=== PATIENT | female | born 1965 | race Caucasian/White ===

== ENCOUNTER 2017-03-03 16:20 | Inpatient (IN) | payer MEDICAID, OTHER ==
[2017-03-03] MEDS ORDERED: Sodium Chloride 0.9% 1,000 ML IV ONE ×2 (17:05→19:29)
--- NOTE | 2017-03-03 17:22 | EDM.PDOC ---
ED HPI GENERAL MEDICAL PROBLEM - General Chief Complaint: Respiratory Problem Stated Complaint: SOB 80%, LOW BP Time Seen by Provider: 03/03/17 16:27 Source of Information: Reports: Patient, Family, RN Notes Reviewed History Limitations: Reports: No Limitations - History of Present Illness INITIAL COMMENTS - FREE TEXT/NARRATIVE: The patient reports general malaise, including decreased appetite, dark urine, and cough productive of green sputum. She denies having a recent fever. She denies shortness of breath at rest. No chest pain or palpitations. No nausea, vomiting, constipation, or diarrhea. The patient is not sure if she has had similar symptoms in the past. The patient's PCP is Liza Fernandez. The patient was seen by Shakira Strong today and instructed to come to the ED. Generalized Pain Score (Numeric/FACES): 3 - Related Data Allergies Allergy/AdvReac Type Severity Reaction Status Date / Time No Known Allergies Allergy Verified 03/03/17 16:33 Home Meds: Home Meds ALPRAZolam [Xanax] 0.5 mg PO TID PRN #20 tablet 02/25/14 [Rx] Albuterol Sulfate [Albuterol Sulfate HFA] 2 puff INH BID PRN 02/25/14 [History] Budesonide/Formoterol Fumarate [Symbicort 80-4.5 Mcg Inhaler] 10.2 gm IH BID [History] Albuterol/Ipratropium [DuoNeb 3.0-0.5 MG/3 ML] 3 ml INH Q4HR PRN 11/03/14 [ History] Hydrochlorothiazide/Lisinopril [Lisinopril-HCTZ 20-25 MG] 20 mg PO DAILY [History] Past Medical History Cardiovascular History: Reports: Hypertension Respiratory History: Reports: COPD Psychiatric History: Reports: Anxiety, Depression - Past Surgical History Female Surgical History: Reports: D&C (x 1), Hysterectomy Musculoskeletal Surgical History: Reports: Shoulder Replacement (right) Social & Family History - Family History Family Medical History: Noncontributory - Tobacco Use Smoking Status *Q: Light Tobacco Smoker Tobacco Use Within Last Twelve Months: Cigarettes Years of Tobacco use: 32 Packs/Tins Daily: 0.1 - Caffeine Use Caffeine Use: Reports: None - Alcohol Use Alcohol Use History: Yes Days Per Week of Alcohol Use: 0 Number of Drinks Per Day: 1 Total Drinks Per Week: 0 Alcohol Use Frequency: Socially - Recreational Drug Use Recreational Drug Use: Yes Drug Use in Last 12 Months: Yes Recreational Drug Type: Reports: Marijuana/Hashish Recreational Drug Use Frequency: Weekly - Living Situation & Occupation Living situation: Reports: Single, with Family (Son) Occupation: Unemployed ED ROS GENERAL - Review of Systems Review Of Systems: See Below Constitutional: Reports: Malaise, Decreased Appetite. Denies: Fever HEENT: Reports: No Symptoms Respiratory: Reports: Cough, Sputum (greenish). Denies: Shortness of Breath, Wheezing Cardiovascular: Reports: No Symptoms. Denies: Chest Pain, Palpitations Endocrine: Reports: No Symptoms GI/Abdominal: Denies: Abdominal Pain, Constipation, Diarrhea, Nausea, Vomiting : Reports: Other (Dark urine). Denies: Dysuria Musculoskeletal: Reports: No Symptoms Skin: Reports: No Symptoms Neurological: Reports: No Symptoms Psychiatric: Reports: No Symptoms Hematologic/Lymphatic: Reports: No Symptoms Immunologic: Reports: No Symptoms ED EXAM, GENERAL - Physical Exam Exam: See Below Exam Limited By: No Limitations General Appearance: Alert, WD/WN, No Apparent Distress, Other (Appears tired) Eye Exam: Bilateral Eye: Normal Inspection Ears: Normal External Exam, Hearing Grossly Normal Ear Exam: Bilateral Ear: Auricle Normal Nose: Normal Inspection, No Blood Throat/Mouth: Normal Inspection, Normal Lips, Normal Voice, No Airway Compromise Head: Atraumatic, Normocephalic Neck: Normal Inspection, Full Range of Motion Respiratory/Chest: No Respiratory Distress, No Accessory Muscle Use, Decreased Breath Sounds. No: Crackles, Rhonchi, Wheezing, Prolonged Expiration Cardiovascular: Normal Peripheral Pulses, Regular Rate, Rhythm, No Gallop, No JVD, No Murmur, No Rub Peripheral Pulses: 4+: Radial (L), Radial (R) GI/Abdominal: Normal Bowel Sounds, Soft, Non-Tender, No Organomegaly, No Distention, No Abnormal Bruit, No Mass (Female) Exam: Deferred Rectal (Female) Exam: Deferred Back Exam: Normal Inspection, Full Range of Motion, NT Extremities: Normal Inspection, Normal Range of Motion, No Pedal Edema, Normal Capillary Refill Neurological: Alert, Oriented, Normal Cognition, No Motor/Sensory Deficits Psychiatric: Normal Affect Skin Exam: Warm, Dry, Intact, Normal Color, No Rash Lymphatic: No Adenopathy ED CENTRAL LINE INSERTION - Central Line Insertion Central Line Indication: medication administration Site: subclavian (L) Prep: CDC/MBT guidelines, sterile drapes, chlorhexidine Lumen: triple Gauge: 7Fr Local anesthesia - Lidocaine (Xylocaine): 1% plain Local anesthetic volume: 2cc Ultrasound guided: No Guidewire and dilator removed intact: Yes Complications: No Secured with suture: Yes Post placement confirmation: CXR, all ports aspirated, all ports flushed CXR post-procedure: no pneumothorax, no hemothorax Dressing applied: by provider EKG INTERPRETATION EKG Date: 03/03/17 Time: 17:22 Rhythm: NSR Rate (beats/min): 96 [place]: RAD-right axis deviation P-wave: present QRS: normal ST-T: normal QT: normal Comparison: change from previous EKG (No RAD 09/29/2016) Course - Vital Signs Last Recorded V/S: Last Vital Signs Temp 36.6 C 03/03/17 16:27 Pulse 103 H 03/03/17 16:27 Resp 26 H 03/03/17 16:27 BP 77/58 L 03/03/17 16:27 Pulse Ox 90 L 03/03/17 16:37 - Orders/Labs/Meds Orders: Active Orders 24 hr Category Date Time Status EKG Documentation Completion [RC] STAT Care 03/03/17 17:07 Active Chest 1V Frontal [CR] Stat Exams 03/03/17 17:06 Taken Chest 1V Frontal [CR] Stat Exams 03/03/17 19:08 Taken CULTURE BLOOD [BC] Stat Lab 03/03/17 17:35 Received CULTURE BLOOD [BC] Stat Lab 03/03/17 18:55 Received D-DIMER QUANTITATIVE [COAG] Stat Lab 03/03/17 18:00 Received UA W/MICROSCOPIC [URIN] Stat Lab 03/03/17 17:06 Uncollected Norepinephrine [Levophed] 4 mg Med 03/03/17 17:45 Active Dextrose 5% in Water 246 ml IV TITRATE Sodium Chloride 0.9% [Normal Saline] 1,000 ml Med 03/03/17 19:30 Active IV ASDIRECTED Medication Orders Norepinephrine Bitartrate 4 mg (/ Dextrose/Water) 250 mls @ 37.5 mls/hr IV TITRATE SHAUN; 10 MCG/MIN PRN Reason: Protocol Last Titration: 03/03/17 18:13 Dose: 4 mcg/min, 15 mls/hr Titration: 03/03/17 18:11 Dose: 5 mcg/min, 18.75 mls/hr Titration: 03/03/17 18:03 Dose: 4 mcg/min, 15 mls/hr Admin: 03/03/17 17:53 Dose: 10 mcg/min, 37.5 mls/hr Sodium Chloride (Normal Saline) 1,000 mls @ 100 mls/hr IV ASDIRECTED SHAUN Labs: Laboratory Tests 03/03/17 03/03/17 03/03/17 Range/Units 17:07 17:35 18:00 WBC 13.65 H (3.98-10.04) K/mm3 RBC 4.90 (3.98-5.22) M/mm3 Hgb 14.1 (11.2-15.7) gm/L Hct 41.2 (34.1-44.9) % MCV 84.1 (79.4-94.8) fl MCH 28.8 (25.6-32.2) pg MCHC 34.2 (32.2-35.5) g/dl RDW Std Deviation 41.7 (36.4-46.3) fL Plt Count 251 (182-369) K/mm3 MPV 10.4 (9.4-12.3) fl Neutrophils % (Manual) 73 H (40-60) % Band Neutrophils % 0 (0-10) % Lymphocytes % (Manual) 15 L (20-40) % Atypical Lymphs % 1 % Monocytes % (Manual) 9 (2-10) % Eosinophils % (Manual) 2 (0.7-5.8) % Basophils % (Manual) 0 L (0.1-1.2) Platelet Estimate Adequate Plt Morphology Comment Normal Polychromasia 1+ slight Poikilocytosis 1+ slight Anisocytosis 1+ slight Microcytosis 1+ slight Macrocytosis 1+ slight Tear Drop Cells 1+ slight Ovalocytes 1+ slight RBC Morph Comment Abnormal Puncture Site Rt radial ABG pH 7.28 L (7.35-7.45) ABG pCO2 55.3 H (35.0-45.0) mmHg ABG pO2 63.0 L (80.0-100.0) mmHg ABG HCO3 25.4 (22.0-26.0) meq/L ABG O2 Saturation 91.4 L (96.0-97.0) % ABG Base Excess -1.9 (-2-2.0) Johnny Test Positive A-a Gradient 47 mmHg O2 Delivery Device Nasal cannula Oxygen Flow Rate 2.0 FiO2 28.00 (21.00-100.00) % Sodium (136-145) mEq/L Potassium (3.5-5.1) mEq/L Chloride (98-107) mEq/L Carbon Dioxide (21-32) mEq/L Anion Gap (5-15) BUN (7-18) mg/dL Creatinine (0.55-1.02) mg/dL Est Cr Clr Drug Dosing mL/min Estimated GFR (MDRD) (>60) mL/min BUN/Creatinine Ratio (14-18) Glucose (74-106) mg/dL Lactic Acid 1.0 (0.4-2.0) mmol/L Calcium (8.5-10.1) mg/dL Total Bilirubin (0.2-1.0) mg/dL AST (15-37) U/L ALT (14-59) U/L Alkaline Phosphatase (46-116) U/L Troponin I (0.00-0.056) ng/mL B-Natriuretic Peptide (0-100) pg/mL Total Protein (6.4-8.2) g/dl Albumin (3.4-5.0) g/dl Globulin gm/dL Albumin/Globulin Ratio (1-2) 03/03/17 03/03/17 Range/Units 18:00 18:00 WBC (3.98-10.04) K/mm3 RBC (3.98-5.22) M/mm3 Hgb (11.2-15.7) gm/L Hct (34.1-44.9) % MCV (79.4-94.8) fl MCH (25.6-32.2) pg MCHC (32.2-35.5) g/dl RDW Std Deviation (36.4-46.3) fL Plt Count (182-369) K/mm3 MPV (9.4-12.3) fl Neutrophils % (Manual) (40-60) % Band Neutrophils % (0-10) % Lymphocytes % (Manual) (20-40) % Atypical Lymphs % % Monocytes % (Manual) (2-10) % Eosinophils % (Manual) (0.7-5.8) % Basophils % (Manual) (0.1-1.2) Platelet Estimate Plt Morphology Comment Polychromasia Poikilocytosis Anisocytosis Microcytosis Macrocytosis Tear Drop Cells Ovalocytes RBC Morph Comment Puncture Site ABG pH (7.35-7.45) ABG pCO2 (35.0-45.0) mmHg ABG pO2 (80.0-100.0) mmHg ABG HCO3 (22.0-26.0) meq/L ABG O2 Saturation (96.0-97.0) % ABG Base Excess (-2-2.0) Johnny Test A-a Gradient mmHg O2 Delivery Device Oxygen Flow Rate FiO2 (21.00-100.00) % Sodium 137 (136-145) mEq/L Potassium 4.6 (3.5-5.1) mEq/L Chloride 100 (98-107) mEq/L Carbon Dioxide 29 (21-32) mEq/L Anion Gap 12.6 (5-15) BUN 51 H (7-18) mg/dL Creatinine 2.3 H (0.55-1.02) mg/dL Est Cr Clr Drug Dosing 18.64 mL/min Estimated GFR (MDRD) 22 (>60) mL/min BUN/Creatinine Ratio 22.2 H (14-18) Glucose 126 H (74-106) mg/dL Lactic Acid (0.4-2.0) mmol/L Calcium 8.9 (8.5-10.1) mg/dL Total Bilirubin 0.2 (0.2-1.0) mg/dL AST 10 L (15-37) U/L ALT 15 (14-59) U/L Alkaline Phosphatase 94 (46-116) U/L Troponin I 0.023 (0.00-0.056) ng/mL B-Natriuretic Peptide 794 H (0-100) pg/mL Total Protein 6.5 (6.4-8.2) g/dl Albumin 2.6 L (3.4-5.0) g/dl Globulin 3.9 gm/dL Albumin/Globulin Ratio 0.7 L (1-2) Meds: Medications Generic Name Dose Route Start Last Admin Trade Name Freq PRN Reason Stop Dose Admin Norepinephrine Bitartrate 4 mg 250 mls @ 37.5 mls/hr 03/03/17 17:45 03/03/17 18:13 / Dextrose/Water IV 4 mcg/min TITRATE SHAUN 15 mls/hr Protocol Titration 10 MCG/MIN Sodium Chloride 1,000 mls @ 100 mls/hr 03/03/17 19:30 Normal Saline IV ASDIRECTED SHAUN Discontinued Medications Generic Name Dose Route Start Last Admin Trade Name Freq PRN Reason Stop Dose Admin Sodium Chloride 1,000 mls @ 999 mls/hr 03/03/17 17:05 03/03/17 17:13 Normal Saline IV 03/03/17 18:05 999 mls/hr ONETIME ONE Administration - Radiology Interpretation Free Text/Narrative:: Two-view chest radiograph reviewed. Cardiac silhouette is within normal limits. Mild pulmonary vascular congestion vs. bronchitis. No pleural effusions. No focal infiltrate. No pneumothorax. Hyperinflation and bilateral diaphragmatic flattening, consistent with COPD. Right shoulder prosthesis noted. Formal read per the Radiologist pending. Post-left subclavian central line placement portable chest radiograph appears to demonstrate the tip of the central line in the superior vena cava. No pneumothorax or hemothorax. - Re-Assessments/Exams Free Text/Narrative Re-Assessment/Exam: 03/03/17 17:34 The patient has been hypotensive, with systolic BP in the 70s. I ordered a normal saline bolus, and while she has not received the full liter yet, her blood pressure has not improved. I have now ordered Levophed to start at 10 mcg /min. 03/03/17 17:38 The patient's chest radiograph does not indicate pneumonia. Her ABG indicates an acute respiratory acidosis, although on examination, while she has diminished breath sounds, she does not have prolonged exhalation or wheezing, suggestive of a COPD exacerbation. No other labs are available at this time. 03/03/17 18:19 We were able to decrease the patient's Levophed drip to 4 mcg/min, however, I believe she is going to continue to require Levophed for some time, therefore I talked to the patient about a central line. She is agreeable. 03/03/17 19:12 A left subclavian triple-lumen central line was placed without difficulty. Post -procedure portable chest radiograph has been ordered. Notified by laboratory that the blood that was initially obtained for a D-dimer is unusable. When I placed the central line, I blanca 20 mL of venous blood with lab present. 03/03/17 19:[address] Mayo at 19:18. He accepts the patient to the ICU. He is aware that the D-dimer and urinalysis are pending. The cause of the patient's hypotension is not yet evident. Her BUN/Cr are elevated at 51.23, new since 09/29/2016. Her report of dark urine and her hypotension suggest intravascular depletion, yet her chest radiograph shows mild pulmonary vascular congestion, and her BNP is mildly elevated at 794. I am concerned about right heart failure, which could explain her hypotension and new right heart strain on her ECG, yet her troponin is within normal limits. The patient would benefit from an echocardiogram. Departure - Departure Time of Disposition: 19:27 Disposition: Admitted As Inpatient 65 Condition: serious Clinical Impression: Hypotension, Acute renal failure, Acute respiratory acidosis, Elevated brain natriuretic peptide (BNP) level - Discharge Information - My Orders Last 24 Hours: My Active Orders 03/03/17 17:06 Chest 1V Frontal [CR] Stat UA W/MICROSCOPIC [URIN] Stat 03/03/17 17:07 EKG Documentation Completion [RC] STAT 03/03/17 17:35 CULTURE BLOOD [BC] Stat 03/03/17 17:45 Norepinephrine [Levophed] 4 mg Dextrose 5% in Water 246 ml IV TITRATE 03/03/17 18:00 D-DIMER QUANTITATIVE [COAG] Stat 03/03/17 18:55 CULTURE BLOOD [BC] Stat 03/03/17 19:08 Chest 1V Frontal [CR] Stat 03/03/17 19:30 Sodium Chloride 0.9% [Normal Saline] 1,000 ml IV ASDIRECTED - Assessment/Plan Last 24 Hours: My Active Orders 03/03/17 17:06 Chest 1V Frontal [CR] Stat UA W/MICROSCOPIC [URIN] Stat 03/03/17 17:07 EKG Documentation Completion [RC] STAT 03/03/17 17:35 CULTURE BLOOD [BC] Stat 03/03/17 17:45 Norepinephrine [Levophed] 4 mg Dextrose 5% in Water 246 ml IV TITRATE 03/03/17 18:00 D-DIMER QUANTITATIVE [COAG] Stat 03/03/17 18:55 CULTURE BLOOD [BC] Stat 03/03/17 19:08 Chest 1V Frontal [CR] Stat 03/03/17 19:30 Sodium Chloride 0.9% [Normal Saline] 1,000 ml IV ASDIRECTED
[2017-03-03] MEDS: Norepinephrine 4 MG in Dextrose 5% in Water 246 ML IV SCH ×2 (17:53)
[2017-03-03] MEDS ORDERED: Sodium Chloride 0.9% 1,000 ML ONE (19:29)
[2017-03-03] MEDS ORDERED: Sodium Chloride 0.9% 1,000 ML IV SCH (19:30)
--- NOTE | 2017-03-03 20:17 | PCM.HP ---
H&P History of Present Illness - General Date of Service: 03/03/17 Admit Problem/Dx: Profound Hypotension and SIRS Source of Information: Patient, Family, Old Records, Provider, RN Notes Reviewed History Limitations: Reports: Altered Mental Status, Respiratory Distress, Other (lethargic) - History of Present Illness Initial Comments - Free Text/Narative: This is a 51 yo white female with past medical hx/o HTN, COPD, Anxiety and Depression who comes in with comes from the clinic with complaints of multiple issues: generalized weakness, malaise, decreased appetite, dark urine, subjective fever, chills and productive cough with greenish sputum that started 4 days ago. She denies recent sick contact. Patient lives with her son. Patient used to smoke heavily but has now cut down. She drinks socially. She admits to illicit drug use in the past. Her initial ED work up shows a CBC remarkable for WBC 13.65, Neutrophils or 73% and ESR 25. Her chemistry is significant for BUN 51, Cr 2.3, BS 126, AST 10, BNP 794, and Albumin 2.6. D-dimer is 1.24. ABG shows pH 7.28, pCO2 55.3, pO2 63 , HCO3 25 and O2 Sat 91.4%. CXR shows hyper-inflated lungs. Patient received treatment in ED before she was sent to the unit for further management. She is currently on pressor drip. She is being admitted for Profound Hypotension Suspecting Sepsis. Additional diagnostic data are still pending. Generalized Pain Score (Numeric/FACES): 5 - Related Data Allergies/Adverse Reactions: Allergies Allergy/AdvReac Type Severity Reaction Status Date / Time No Known Allergies Allergy Verified 03/03/17 16:33 Home Medications: Home Meds ALPRAZolam [Xanax] 0.5 mg PO TID PRN #20 tablet 02/25/14 [Rx] Albuterol Sulfate [Albuterol Sulfate HFA] 2 puff INH BID PRN 02/25/14 [History] Budesonide/Formoterol Fumarate [Symbicort 80-4.5 Mcg Inhaler] 10.2 gm IH BID [History] Albuterol/Ipratropium [DuoNeb 3.0-0.5 MG/3 ML] 3 ml INH Q4HR PRN 11/03/14 [ History] Hydrochlorothiazide/Lisinopril [Lisinopril-HCTZ 20-25 MG] 20 mg PO DAILY [History] Past Medical History Cardiovascular History: Reports: Hypertension Respiratory History: Reports: COPD Other Respiratory History: end stage COPD Gastrointestinal History: Reports: Colon Polyp Genitourinary History: Reports: Renal Calculus, Urinary Incontinence Musculoskeletal History: Reports: Arthritis Neurological History: Reports: Migraines Psychiatric History: Reports: Anxiety, Depression - Past Surgical History Female Surgical History: Reports: D&C, Hysterectomy Musculoskeletal Surgical History: Reports: Shoulder Replacement Social & Family History - Family History Family Medical History: Noncontributory - Tobacco Use Smoking Status *Q: Former Smoker Years of Tobacco use: 32 Packs/Tins Daily: 0.1 Used Tobacco, but Quit: Yes Month Tobacco Last Used: June 2016 Second Hand Smoke Exposure: No - Caffeine Use Caffeine Use: Reports: Coffee, Soda - Alcohol Use Days Per Week of Alcohol Use: 0 Number of Drinks Per Day: 1 Total Drinks Per Week: 0 - Recreational Drug Use Recreational Drug Use: No Drug Use in Last 12 Months: Yes Recreational Drug Type: Reports: Marijuana/Hashish Recreational Drug Use Frequency: Weekly - Living Situation & Occupation Living situation: Reports: Single, with Family (Son) Occupation: Unemployed H&P Review of Systems - Review of Systems: Review Of Systems: See Below General: Reports: Fever, Chills, Malaise, Weakness, Fatigue, Decreased Appetite HEENT: Reports: No Symptoms Pulmonary: Reports: Shortness of Breath Cardiovascular: Denies: Chest Pain, Palpitations, Dyspnea on Exertion, Lightheadedness, Syncope Gastrointestinal: Denies: Abdominal Pain, Nausea, Vomiting Genitourinary: Reports: No Symptoms Musculoskeletal: Reports: No Symptoms Skin: Denies: Jaundice, Pruritis, Rash, Erythema Psychiatric: Reports: Anxiety. Denies: Depression, Hallucinations Neurological: Reports: Difficulty Walking, Weakness. Denies: Confusion Hematologic/Lymphatic: Reports: No Symptoms Immunologic: Reports: No Symptoms Exam - Exam Exam: See Below - Vital Signs Vital Signs: Last Vital Signs Temp 36.6 C 03/03/17 16:27 Pulse 92 03/03/17 19:51 Resp 26 H 03/03/17 19:51 BP 72/55 L 03/03/17 19:51 Pulse Ox 92 L 03/03/17 19:51 Weight: 42.864 kg - Exam Quality Assessment: Supplemental Oxygen General: Moderate Distress, Lethargic, Other (cachectic) HEENT: Conjunctiva Clear, Hearing Intact, Mucosa Moist & Manlius, Nares Patent, Normal Nasal Septum, Posterior Pharynx Clear, Pupils Equal, Pupils Reactive. No : EOMI Neck: Supple, Trachea Midline, +2 Carotid Pulse wo Bruit, Full Range of Motion Lungs: Normal Respiratory Effort, Decreased Breath Sounds Cardiovascular: Tachycardia Abdomen: Normal Bowel Sounds, Soft. No: Pelvis Stable, Organomegaly, Tenderness (Female) Exam: Deferred Rectal (Female) Exam: Deferred Back Exam: Normal Inspection, Decreased Range of Motion Extremities: Normal Inspection Peripheral Pulses: 2+: Posterior Tibial (L), Posterior Tibial (R), Dorsalis Pedis (L), Dorsalis Pedis (R) Skin: Warm, Dry, Intact Neuro Extensive - Mental Status: Normal Cognition, Memory Intact, Slow Response to Commands Neuro Extensive - Motor, Sensory, Reflexes: CN II-XII Intact (limited exam due to lethargy), Abnormal Gait - Patient Data Result Diagrams: 03/03/17 18:00 03/03/17 22:00 EKG INTERPRETATION EKG Date: 03/03/17 Time: 17:22 Rhythm: NSR Rate (beats/min): 96 [place]: LAD-left axis deviation P-wave: present QRS: normal ST-T: normal QT: normal Comparison: change from previous EKG *Q Meaningful Use (ADM) - VTE *Q VTE Criteria *Q: - Stroke *Q Stroke Criteria *Q: - AMI *Q AMI Criteria *Q: Problem List Initiated/Reviewed/Updated: Yes Orders Last 24hrs: Active Orders 24 hr Category Date Time Status Sodium Chloride 0.9% [Normal Saline] 500 ml Med 03/03/17 20:30 Active IV .BOLUS Medication Orders Norepinephrine Bitartrate 4 mg (/ Dextrose/Water) 250 mls @ 37.5 mls/hr IV TITRATE SHAUN; 10 MCG/MIN PRN Reason: Protocol Last Titration: 03/03/17 18:13 Dose: 4 mcg/min, 15 mls/hr Titration: 03/03/17 18:11 Dose: 5 mcg/min, 18.75 mls/hr Titration: 03/03/17 18:03 Dose: 4 mcg/min, 15 mls/hr Admin: 03/03/17 17:53 Dose: 10 mcg/min, 37.5 mls/hr Sodium Chloride (Normal Saline) 1,000 mls @ 100 mls/hr IV ASDIRECTED SHAUN Sodium Chloride (Normal Saline) 1,000 mls @ 999 mls/hr IV ONETIME ONE Stop: 03/03/17 20:29 Last Admin: 03/03/17 19:32 Dose: 999 mls/hr Sodium Chloride (Normal Saline) 500 mls @ 999 mls/hr IV .BOLUS SHAUN Assessment/Plan Comment:: Assessment/Plan: Acute: Probable Sepsis with Profound Hypotension - No clear etiology of Hypotesion and or source of infection at this time - ED BP 87/60 mmHg at the time of my examination - Failed fluid challenge in ED, she now on Levophed drip - Will give additional 3 L NS, she had no hx/o HF, she is young should be able to handle it - Unclear why she is profoundly hypotensive - LA is 1, will repeat in 3 hrs - UA and UDS are pending - CXR shows hyper-inflated lungs COPD Exacerbation - It appears she had advanced COPD based on CXR; no obvious infiltrate - Both hypoxemic and Hypercapneic on ABG - O2 sat 85% on 2 L NC (had to bump to 4L, O2 sat improved to 89-90%) - IV Solumedrol, Bronchodilators, Decongestant/Expectorant, FV/IS and RT care - Serial CXR Leukocytosis - WBC 13.65 - No CRP done Acute Kidney Injury - Likely 2/2 Intravascular Volume Depletion - She is clinically dehydrated - BUN 51 and CR 2.2, no baseline level - Renal U/S - All meds for pharmacy to renally dose Elevated BNP Level - BNP 794 - No hx/o HF - Level could be affected by JENNIE - Will monitor Plan: Admit to ICU Hold some home meds Routine AM Labs IV Levaquin and Zosyn for presumptive infection for pharmacy to dose She is High Sepsis Risk PT/OT/RT eval SW/CM for d/c planning Code status: 1 Prognosis serious to critical
[2017-03-03] MEDS ORDERED: Morphine 2 MG/ML Syringe IVPUSH PRN (20:18)
[2017-03-03] MEDS ORDERED: Acetaminophen 325 MG Tab PO PRN (20:18)
[2017-03-03] MEDS ORDERED: Temazepam 15 MG Cap PO PRN (20:19)
[2017-03-03] MEDS ORDERED: Bisacodyl 5 MG Tab PO PRN (20:19)
[2017-03-03] MEDS ORDERED: Promethazine 12.5 MG in Sodium Chloride 0.9% 50 ML IV PRN (20:19)
[2017-03-03] MEDS ORDERED: Polyethylene Glycol 3350 Powder 17 GM Packet PO PRN (20:19)
[2017-03-03] MEDS ORDERED: Magnesium Hydroxide 400 MG/5 ML Susp 30 ML Cup PO PRN (20:19)
[2017-03-03] MEDS ORDERED: Ondansetron 4 MG/2 ML SDV IV PRN (20:19)
[2017-03-03] MEDS ORDERED: LORazepam 2 MG/ML MDV IV PRN (20:19)
[2017-03-03] MEDS ORDERED: Docusate Sodium 100 MG Cap PO PRN (20:19)
[2017-03-03] MEDS ORDERED: Metoprolol Tartrate 5 MG/5 ML SDV IVPUSH PRN (20:26)
[2017-03-03] MEDS ORDERED: hydrALAZINE 20 MG/ML SDV IVPUSH PRN (20:26)
[2017-03-03] MEDS ORDERED: Sodium Chloride 0.9% 500 ML IV SCH (20:30)
[2017-03-03] MEDS ORDERED: Piperacillin/Tazobactam 4.5 GM in Sodium Chloride 0.9% 100 ML IV ONE (20:45)
[2017-03-03] MEDS: methylPREDNISolone Sodium Succinate 125 MG/2 ML SDV IVPUSH SCH (20:54)
[2017-03-03] MEDS ORDERED: Magnesium Sulfate/Water 2 GM in Premix Bag 1 BAG IV ONE (20:55)
[2017-03-03] MEDS ORDERED: Mometasone Furoate HFA 100mcg/Puff 13 GM Inhaler INH SCH (21:00)
[2017-03-03] MEDS ORDERED: Levofloxacin/Dextrose 5%-Water 750 MG in Premix Bag 1 BAG IV SCH (21:00)
[2017-03-03] MEDS: guaiFENesin/Dextromethorphan 100-10 MG/5 ML Soln 5 ML Cup PO SCH (21:06)
[2017-03-03] MEDS: ALPRAZolam 0.5 MG Tab PO PRN (21:07)
[2017-03-03] MEDS: Albuterol/Ipratropium 3.0-0.5 MG/3 ML Neb Soln NEB PRN (21:28)
[2017-03-03] MEDS ORDERED: guaiFENesin 600 MG Tab.ER PO ONE (21:28)
[2017-03-03] MEDS ORDERED: Albuterol 0.083% 2.5 MG/3 ML Neb Soln NEB PRN (21:36)
[2017-03-03] MEDS ORDERED: Budesonide/Formoterol 80-4.5 MCG/Puff 6.9 GM Inhaler INH ONE (22:00)
[2017-03-04] MEDS: guaiFENesin/Dextromethorphan 100-10 MG/5 ML Soln 5 ML Cup PO SCH ×6 (00:57→20:05)
[2017-03-04] MEDS: Acetaminophen/HYDROcodone 325-5 MG Tab PO PRN ×4 (00:57→16:10)
[2017-03-04] MEDS ORDERED: Piperacillin/Tazobactam 4.5 GM in Sodium Chloride 0.9% 100 ML IV SCH (04:00)
[2017-03-04] MEDS: methylPREDNISolone Sodium Succinate 125 MG/2 ML SDV IVPUSH SCH ×3 (04:14→20:15)
[2017-03-04] MEDS: Budesonide/Formoterol 80-4.5 MCG/Puff 6.9 GM Inhaler INH SCH ×2 (06:02→21:19)
--- NOTE | 2017-03-04 06:27 | CR ---
Chest: Portable view of the chest was obtained. Comparison: Previous chest x-ray performed on the same day at time 5:17 PM. Left subclavian line has been placed. Tip lies within the superior vena cava. Lungs are clear but hyperinflated. Right shoulder prosthesis is again noted. Heart size and mediastinum are normal. Impression: 1. Emphysematous change. 2. Left subclavian line with tip lying within the superior vena cava. No pneumothorax is seen. Diagnostic code #3
--- NOTE | 2017-03-04 06:45 | CR ---
Chest: Portable view of the chest was obtained. Comparison: Previous chest x-ray of 09/29/16. Heart size and mediastinum are normal. Minimal density noted within the right upper lung most likely due to scarring or slight atelectasis. Lungs otherwise are clear. Lungs are hyperinflated compatible with emphysematous change. Reverse right shoulder prosthesis incidentally noted. Bony structures are osteopenic. Impression: 1. Emphysematous change. Other incidental findings. Nothing acute is appreciated. Diagnostic code #2
--- NOTE | 2017-03-04 08:06 | PCM.PN ---
- General Info Date of Service: 03/04/17 Admission Dx/Problem (Free Text): Profound Hypotension and SIRS Subjective Update: Follow Up Functional Status: Reports: pain controlled, tolerating diet, ambulating, urinating. Denies: new symptoms - Review of Systems General: Denies: Fever, Weakness, Fatigue, Malaise, Chills HEENT: Reports: no symptoms Pulmonary: Reports: shortness of breath, cough Cardiovascular: Denies: Chest Pain, Palpitations, Dyspnea on Exertion Gastrointestinal: Denies: Abdominal pain, Nausea, Vomiting Genitourinary: Reports: no symptoms Musculoskeletal: Reports: no symptoms Skin: Denies: cyanosis, pallor, pruritis, rash Neurological: Denies: Confusion, Dizziness, Difficulty Walking, Weakness, Gait Disturbance Psychiatric: Denies: depression, anxiety, agitation, hallucinations Systems Review Comment:: No overnight issues. She fells better and breathing good. She slept really well. However she is still on pressor drip. She is currently on 2L NC with an O2 sat of 93%. She more alert and awake. - Patient Data Vitals - most recent: Last Vital Signs Temp 36.4 C 03/04/17 07:30 Pulse 80 03/04/17 07:30 Resp 19 03/04/17 07:30 BP 99/74 03/04/17 07:30 Pulse Ox 92 L 03/04/17 07:30 Weight - most recent: 42.864 kg I&O - last 24 hours: Intake & Output 03/03/17 03/04/17 03/04/17 22:59 06:59 14:59 Intake Total 480 997 Output Total 500 1000 Balance -20 -3 Lab Results last 24 hrs: Laboratory Results - last 24 hr 03/03/17 03/03/17 03/03/17 Range/Units 20:40 20:40 20:40 WBC (3.98-10.04) K/mm3 RBC (3.98-5.22) M/mm3 Hgb (11.2-15.7) gm/L Hct (34.1-44.9) % MCV (79.4-94.8) fl MCH (25.6-32.2) pg MCHC (32.2-35.5) g/dl RDW Std Deviation (36.4-46.3) fL Plt Count (182-369) K/mm3 MPV (9.4-12.3) fl Neut % (Auto) (34.0-71.1) % Lymph % (Auto) (19.3-51.7) % Crosby % (Auto) (4.7-12.5) % Eos % (Auto) (0.7-5.8) Baso % (Auto) (0.1-1.2) % Neut # (Auto) (1.56-6.13) K/mm3 Lymph # (Auto) (1.18-3.74) K/mm3 Crosby # (Auto) (0.24-0.36) K/mm3 Eos # (Auto) (0.04-0.36) K/mm3 Baso # (Auto) (0.01-0.08) K/mm3 Manual Slide Review ESR 25 H (0-20) mm/hr Sodium (136-145) mEq/L Potassium (3.5-5.1) mEq/L Chloride (98-107) mEq/L Carbon Dioxide (21-32) mEq/L Anion Gap (5-15) BUN (7-18) mg/dL Creatinine (0.55-1.02) mg/dL Est Cr Clr Drug Dosing mL/min Estimated GFR (MDRD) (>60) mL/min BUN/Creatinine Ratio (14-18) Glucose (74-106) mg/dL Lactic Acid (0.4-2.0) mmol/L Calcium (8.5-10.1) mg/dL Magnesium (1.8-2.4) mg/dl C-Reactive Protein 8.9 H* (<1.0) mg/dL Urine Color (Yellow) Urine Appearance (Clear) Urine pH (5.0-8.0) Ur Specific Industry (1.005-1.030) Urine Protein (Negative) Urine Glucose (UA) (Negative) Urine Ketones (Negative) Urine Occult Blood (Negative) Urine Nitrite (Negative) Urine Bilirubin (Negative) Urine Urobilinogen (0.2-1.0) Ur Leukocyte Esterase (Negative) Urine RBC (0-5) /hpf Urine WBC (0-5) /hpf Ur Epithelial Cells (0-5) /hpf Urine Bacteria (FEW) /hpf Urine Mucus (FEW) /hpf Urine Opiates Screen Negative (NEGATIVE) Ur Buprenorphine Scrn Negative (NEGATIVE) Ur Oxycodone Screen Negative (NEGATIVE) Urine Methadone Screen Negative (NEGATIVE) Ur Propoxyphene Screen Negative (NEGATIVE) Ur Barbiturates Screen Negative (NEGATIVE) Ur Tricyclics Screen Negative (NEGATIVE) Ur Phencyclidine Scrn Negative (NEGATIVE) Ur Amphetamine Screen Negative (NEGATIVE) U Methamphetamines Scrn Negative (NEGATIVE) U Benzodiazepines Scrn Presumptive positive H (NEGATIVE) U Cocaine Metab Screen Negative (NEGATIVE) U Marijuana (THC) Screen Negative (NEGATIVE) 03/03/17 03/03/17 03/03/17 Range/Units 20:40 22:00 22:00 WBC (3.98-10.04) K/mm3 RBC (3.98-5.22) M/mm3 Hgb (11.2-15.7) gm/L Hct (34.1-44.9) % MCV (79.4-94.8) fl MCH (25.6-32.2) pg MCHC (32.2-35.5) g/dl RDW Std Deviation (36.4-46.3) fL Plt Count (182-369) K/mm3 MPV (9.4-12.3) fl Neut % (Auto) (34.0-71.1) % Lymph % (Auto) (19.3-51.7) % Crosby % (Auto) (4.7-12.5) % Eos % (Auto) (0.7-5.8) Baso % (Auto) (0.1-1.2) % Neut # (Auto) (1.56-6.13) K/mm3 Lymph # (Auto) (1.18-3.74) K/mm3 Crosby # (Auto) (0.24-0.36) K/mm3 Eos # (Auto) (0.04-0.36) K/mm3 Baso # (Auto) (0.01-0.08) K/mm3 Manual Slide Review ESR (0-20) mm/hr Sodium 137 (136-145) mEq/L Potassium 4.9 (3.5-5.1) mEq/L Chloride 104 (98-107) mEq/L Carbon Dioxide 25 (21-32) mEq/L Anion Gap 12.9 (5-15) BUN 44 H (7-18) mg/dL Creatinine 1.7 H (0.55-1.02) mg/dL Est Cr Clr Drug Dosing 26.19 mL/min Estimated GFR (MDRD) 32 (>60) mL/min BUN/Creatinine Ratio 25.9 H (14-18) Glucose 151 H (74-106) mg/dL Lactic Acid 0.8 (0.4-2.0) mmol/L Calcium 7.9 L (8.5-10.1) mg/dL Magnesium (1.8-2.4) mg/dl C-Reactive Protein (<1.0) mg/dL Urine Color Yellow (Yellow) Urine Appearance Cloudy H (Clear) Urine pH 6.0 (5.0-8.0) Ur Specific Industry 1.015 (1.005-1.030) Urine Protein 1+ H (Negative) Urine Glucose (UA) Negative (Negative) Urine Ketones Negative (Negative) Urine Occult Blood 1+ H (Negative) Urine Nitrite Positive H (Negative) Urine Bilirubin Negative (Negative) Urine Urobilinogen 0.2 (0.2-1.0) Ur Leukocyte Esterase 1+ H (Negative) Urine RBC 0-5 (0-5) /hpf Urine WBC >100 H (0-5) /hpf Ur Epithelial Cells 5-10 H (0-5) /hpf Urine Bacteria Many H (FEW) /hpf Urine Mucus Few (FEW) /hpf Urine Opiates Screen (NEGATIVE) Ur Buprenorphine Scrn (NEGATIVE) Ur Oxycodone Screen (NEGATIVE) Urine Methadone Screen (NEGATIVE) Ur Propoxyphene Screen (NEGATIVE) Ur Barbiturates Screen (NEGATIVE) Ur Tricyclics Screen (NEGATIVE) Ur Phencyclidine Scrn (NEGATIVE) Ur Amphetamine Screen (NEGATIVE) U Methamphetamines Scrn (NEGATIVE) U Benzodiazepines Scrn (NEGATIVE) U Cocaine Metab Screen (NEGATIVE) U Marijuana (THC) Screen (NEGATIVE) 03/04/17 03/04/17 Range/Units 04:48 04:48 WBC 8.21 (3.98-10.04) K/mm3 RBC 4.72 (3.98-5.22) M/mm3 Hgb 13.7 (11.2-15.7) gm/L Hct 39.8 (34.1-44.9) % MCV 84.3 (79.4-94.8) fl MCH 29.0 (25.6-32.2) pg MCHC 34.4 (32.2-35.5) g/dl RDW Std Deviation 42.2 (36.4-46.3) fL Plt Count 322 (182-369) K/mm3 MPV 10.6 (9.4-12.3) fl Neut % (Auto) 95.7 H (34.0-71.1) % Lymph % (Auto) 3.7 L (19.3-51.7) % Crosby % (Auto) 0.4 L (4.7-12.5) % Eos % (Auto) 0 L (0.7-5.8) Baso % (Auto) 0.0 L (0.1-1.2) % Neut # (Auto) 7.86 H (1.56-6.13) K/mm3 Lymph # (Auto) 0.30 L (1.18-3.74) K/mm3 Crosby # (Auto) 0.03 L (0.24-0.36) K/mm3 Eos # (Auto) 0.00 L (0.04-0.36) K/mm3 Baso # (Auto) 0.00 L (0.01-0.08) K/mm3 Manual Slide Review Abnormal smear ESR (0-20) mm/hr Sodium 134 L (136-145) mEq/L Potassium 4.9 (3.5-5.1) mEq/L Chloride 103 (98-107) mEq/L Carbon Dioxide 22 (21-32) mEq/L Anion Gap 13.9 (5-15) BUN 41 H (7-18) mg/dL Creatinine 1.4 H (0.55-1.02) mg/dL Est Cr Clr Drug Dosing 31.81 mL/min Estimated GFR (MDRD) 39 (>60) mL/min BUN/Creatinine Ratio 29.3 H (14-18) Glucose 203 H (74-106) mg/dL Lactic Acid (0.4-2.0) mmol/L Calcium 8.5 (8.5-10.1) mg/dL Magnesium 2.3 (1.8-2.4) mg/dl C-Reactive Protein 7.2 H* (<1.0) mg/dL Urine Color (Yellow) Urine Appearance (Clear) Urine pH (5.0-8.0) Ur Specific Industry (1.005-1.030) Urine Protein (Negative) Urine Glucose (UA) (Negative) Urine Ketones (Negative) Urine Occult Blood (Negative) Urine Nitrite (Negative) Urine Bilirubin (Negative) Urine Urobilinogen (0.2-1.0) Ur Leukocyte Esterase (Negative) Urine RBC (0-5) /hpf Urine WBC (0-5) /hpf Ur Epithelial Cells (0-5) /hpf Urine Bacteria (FEW) /hpf Urine Mucus (FEW) /hpf Urine Opiates Screen (NEGATIVE) Ur Buprenorphine Scrn (NEGATIVE) Ur Oxycodone Screen (NEGATIVE) Urine Methadone Screen (NEGATIVE) Ur Propoxyphene Screen (NEGATIVE) Ur Barbiturates Screen (NEGATIVE) Ur Tricyclics Screen (NEGATIVE) Ur Phencyclidine Scrn (NEGATIVE) Ur Amphetamine Screen (NEGATIVE) U Methamphetamines Scrn (NEGATIVE) U Benzodiazepines Scrn (NEGATIVE) U Cocaine Metab Screen (NEGATIVE) U Marijuana (THC) Screen (NEGATIVE) John Results last 24 hrs: Microbiology 03/03/17 20:40 Urine Culture - Preliminary Urine, Clean Catch Gram Negative Rods Med Orders - Current: Current Medications Acetaminophen (Tylenol) 650 mg PO Q4H PRN PRN Reason: Pain (Mild 1-3)/fever Hydrocodone Bitart/Acetaminophen ([place] 325-5 Mg) 1 tab PO Q4H PRN PRN Reason: Pain (moderate 4-6) Last Admin: 03/04/17 00:57 Dose: 1 tab Albuterol (Proventil Neb Soln) 2.5 mg NEB Q2H PRN PRN Reason: Cough Albuterol/Ipratropium (Duoneb 3.0-0.5 Mg/3 Ml) 3 ml NEB Q4H PRN PRN Reason: Shortness Of Breath/wheezing Last Admin: 03/03/17 21:28 Dose: 3 ml Alprazolam (Xanax) 0.5 mg PO TID PRN PRN Reason: Anxiety Last Admin: 03/03/17 21:07 Dose: 0.5 mg Bisacodyl (Dulcolax) 5 mg PO DAILY PRN PRN Reason: Constipation Budesonide/Formoterol Fumarate (Symbicort 80-4.5 Mcg) 0 gm INH BIDRT SHAUN Last Admin: 03/04/17 06:02 Dose: 2 puff Docusate Sodium (Colace) 100 mg PO BID PRN PRN Reason: Constipation Guaifenesin/Phenylephrine HCl (Robitussin Dm) 10 ml PO Q4H [facility] Last Admin: 03/04/17 07:32 Dose: Not Given Hydralazine HCl (Apresoline) 20 mg IVPUSH Q4H PRN PRN Reason: Hypertension Hydrochlorothiazide (Hydrochlorothiazide) 25 mg PO DAILY [facility] Norepinephrine Bitartrate 4 mg (/ Dextrose/Water) 250 mls @ 37.5 mls/hr IV TITRATE SHAUN; 10 MCG/MIN PRN Reason: Protocol Last Titration: 03/04/17 07:32 Dose: 5 mcg/min, 18.75 mls/hr Sodium Chloride (Normal Saline) 500 mls @ 999 mls/hr IV .BOLUS [facility] Promethazine HCl 12.5 mg/ (Sodium Chloride) 50.5 mls @ 100 mls/hr IV Q6H PRN PRN Reason: Nausea/Vomiting Levofloxacin/Dextrose 750 mg/ (Premix) 150 mls @ 150 mls/hr IV Q48H [facility] Last Admin: 03/03/17 20:54 Dose: 150 mls/hr Piperacillin Sod/Tazobactam (Sod 4.5 gm/ Sodium Chloride) 100 mls @ 33.333 mls/ hr IV Q12H [facility] Last Admin: 03/04/17 04:15 Dose: 33.333 mls/hr Lisinopril (Prinivil) 20 mg PO DAILY [facility] Lorazepam (Ativan) 0.5 mg IV Q6H PRN PRN Reason: Anxiety Magnesium Hydroxide (Milk Of Magnesia) 30 ml PO Q12H PRN PRN Reason: Constipation Magnesium Sulfate (Pharmacy To Dose - Magnesium Replacement) 1 dose .XX ASDIRECTED [facility] Methylprednisolone Sodium Succinate (Solu-Medrol) 125 mg IVPUSH Q8H [facility] Last Admin: 03/04/17 04:14 Dose: 125 mg Metoprolol Tartrate (Lopressor) 5 mg IVPUSH Q4H PRN PRN Reason: Tachycardia Morphine Sulfate (Morphine) 1 mg IVPUSH Q3H PRN PRN Reason: Other Stop: 03/07/17 20:19 Ondansetron HCl (Zofran) 4 mg IV Q6H PRN PRN Reason: Nausea/Vomiting Polyethylene Glycol (Miralax) 17 gm PO DAILY PRN PRN Reason: Constipation Potassium Chloride (Pharmacy To Dose - Potassium Replacement) 1 dose .XX ASDIRECTED [facility] Senna/Docusate Sodium (Senna Plus) 1 tab PO BID PRN PRN Reason: Constipation Temazepam (Restoril) 15 mg PO BEDTIME PRN PRN Reason: Sleep Last Admin: 03/04/17 00:57 Dose: 15 mg Discontinued Medications Budesonide/Formoterol Fumarate (Symbicort 80-4.5 Mcg) 0 gm INH ONETIME ONE Stop: 03/03/17 22:01 Last Admin: 03/03/17 21:47 Dose: 2 puff Guaifenesin (Mucinex) 1,200 mg PO ONETIME ONE Stop: 03/03/17 21:29 Last Admin: 03/03/17 21:51 Dose: 1,200 mg Sodium Chloride (Normal Saline) 1,000 mls @ 999 mls/hr IV ONETIME ONE Stop: 03/03/17 18:05 Last Admin: 03/03/17 17:13 Dose: 999 mls/hr Sodium Chloride (Normal Saline) 1,000 mls @ 100 mls/hr IV ASDIRECTED [facility] Last Admin: 03/03/17 20:58 Dose: 100 mls/hr Sodium Chloride (Normal Saline) 1,000 mls @ 999 mls/hr IV ONETIME ONE Stop: 03/03/17 20:29 Last Admin: 03/03/17 19:32 Dose: 999 mls/hr Sodium Chloride (Normal Saline) Confirm Administered Dose 1,000 mls @ as directed .ROUTE .STK-MED ONE Stop: 03/03/17 19:30 Last Admin: 03/03/17 19:55 Dose: Not Given Piperacillin Sod/Tazobactam (Sod 4.5 gm/ Sodium Chloride) 100 mls @ 200 mls/hr IV ONETIME ONE Stop: 03/03/17 21:14 Last Admin: 03/03/17 20:54 Dose: 200 mls/hr Magnesium Sulfate 2 gm/ Premix 50 mls @ 25 mls/hr IV ONETIME ONE Stop: 03/03/17 22:54 Last Admin: 03/03/17 21:09 Dose: 25 mls/hr Mometasone Furoate (Asmanex Hfa 100mcg) 0 gm INH BID [facility] Last Admin: 03/03/17 21:52 Dose: Not Given - Exam Quality Assessment: supplemental oxygen General: alert, oriented, cooperative, no acute distress HEENT: Pupils equal, Pupils reactive, EOMI, Mucous membr. moist/pink Neck: supple, trachea midline, no JVD, no thyromegaly Lungs: Normal respiratory effort, Decreased breath sounds Cardiovascular: Regular Rate, Regular Rhythm Abdomen: bowel sounds present, soft, no tenderness, no distension (Female) Exam: Deferred Back Exam: Normal Inspection, Decreased Range of Motion Extremities: no edema, normal pulses, no tenderness/swelling, no clubbing, no cyanosis, no calf tenderness Peripheral Pulses: 2+: Posterior Tibial (L), Posterior Tibial (R), Dorsalis Pedis (L), Dorsalis Pedis (R) Skin: warm, dry, intact Neurological: no new focal deficit Psy/Mental Status: alert, normal affect, normal mood - Problem List Review Problem List Initiated/Reviewed/Updated: Yes - My Orders Last 24 Hours: My Active Orders 03/03/17 20:00 methylPREDNISolone Sod Succ [Solu-MEDROL] 125 mg IVPUSH Q8H 03/03/17 20:18 Cardiac Monitoring [RC] CONTINUOUS Height and Weight [RC] 04 Intake and Output [RC] 04,16 Oxygen Therapy [RC] PRN Pulse Oximetry [RC] CONTINUOUS Up With Assistance [RC] ASDIRECTED Up ad Debbie [RC] ASDIRECTED VTE/DVT Education [RC] BID Vital Signs [RC] Q1HR Acetaminophen [Tylenol] 650 mg PO Q4H PRN Acetaminophen/HYDROcodone [[place] 325-5 MG] 1 tab PO Q4H PRN Morphine 1 mg IVPUSH Q3H PRN Sequential Compression Device [OM.PC] Per Unit Routine Resuscitation Status Routine 03/03/17 20:19 Antiembolic Devices [RC] PER UNIT ROUTINE Albuterol/Ipratropium [DuoNeb 3.0-0.5 MG/3 ML] 3 ml NEB Q4H PRN Bisacodyl [Dulcolax] 5 mg PO DAILY PRN Docusate Sodium [Colace] 100 mg PO BID PRN Docusate Sodium/Sennosides [Senna Plus] 1 tab PO BID PRN LORazepam [Ativan] 0.5 mg IV Q6H PRN Magnesium Hydroxide [Milk of Magnesia] 30 ml PO Q12H PRN Ondansetron [Zofran] 4 mg IV Q6H PRN Polyethylene Glycol 3350 [MiraLAX] 17 gm PO DAILY PRN Promethazine [Phenergan] 12.5 mg Sodium Chloride 0.9% [Normal Saline] 50 ml IV Q6H Temazepam [Restoril] 15 mg PO BEDTIME PRN 03/03/17 20:21 ALPRAZolam [Xanax] 0.5 mg PO TID PRN 03/03/17 20:22 RT Aerosol Therapy [RC] ASDIRECTED Consult to Case Management [CONS] Routine Consult to Drawer Liner [CONS] Routine Consult to Spiritual Care [CONS] Routine OT Evaluation and Treatment [CONS] Routine PT Evaluation and Treatment [CONS] Routine Respiratory Care Assess and Treatment [CONS] Routine 03/03/17 20:26 Metoprolol Tartrate [Lopressor] 5 mg IVPUSH Q4H PRN hydrALAZINE [Apresoline] 20 mg IVPUSH Q4H PRN 03/03/17 20:30 Magnesium Rep Pharmacy to Dose [Pharmacy to Dose - Magnesium Replacement] 1 dose .XX ASDIRECTED Potassium Rep Pharmacy to Dose [Pharmacy to Dose - Potassium Replacement] 1 dose .XX ASDIRECTED Sodium Chloride 0.9% [Normal Saline] 500 ml IV .BOLUS 03/03/17 20:40 CULTURE URINE [RM] Stat 03/03/17 21:00 Dextromethorphan/guaiFENesin [Robitussin DM] 10 ml PO Q4H Levofloxacin/Dextrose 5%-Water [Levaquin in D5W 750 MG/150 ML] 750 mg Premix Bag 1 bag IV Q48H 03/03/17 21:36 Albuterol [Proventil Neb Soln] 2.5 mg NEB Q2H PRN 03/03/17 Dinner Regular Diet [DIET] 03/04/17 04:00 Piperacillin/Tazobactam [Zosyn] 4.5 gm Sodium Chloride 0.9% [Normal Saline] 100 ml IV Q12H 03/04/17 06:00 Budesonide/Formoterol [Symbicort 80-4.5 MCG] 0 gm INH BIDRT 03/04/17 06:19 Retroperitoneal Comp [US] Routine 03/04/17 06:31 Consult to Physician [CONS] Routine 03/04/17 06:32 Notify Provider Consults [RC] ASDIRECTED 03/04/17 09:00 Hydrochlorothiazide 25 mg PO DAILY Lisinopril [Prinivil] 20 mg PO DAILY 03/04/17 20:23 Echo Comp wo Cont [US] Routine 03/05/17 05:11 BASIC METABOLIC PANEL,BMP [CHEM] AM C-REACTIVE PROTEIN [CHEM] AM MAGNESIUM [CHEM] AM 03/06/17 05:11 BASIC METABOLIC PANEL,BMP [CHEM] AM C-REACTIVE PROTEIN [CHEM] AM MAGNESIUM [CHEM] AM 03/07/17 05:11 BASIC METABOLIC PANEL,BMP [CHEM] AM C-REACTIVE PROTEIN [CHEM] AM MAGNESIUM [CHEM] AM - Plan Plan:: Assessment/Plan: Acute: Probable Sepsis with Profound Hypotension - No clear etiology of Hypotesion and or source of infection at this time - ED BP 87/60 mmHg at the time of my examination - Failed fluid challenge in ED, she now on Levophed drip - Will give additional 3 L NS, she had no hx/o HF, she is young should be able to handle it - Unclear why she is profoundly hypotensive - LA is 1, will repeat in 3 hrs - UA and UDS are pending - CXR shows hyper-inflated lungs - Still hypotensive but MAP is > 65 mmHg - Continue current treatment COPD Exacerbation - It appears she had advanced COPD based on CXR; no obvious infiltrate - Both hypoxemic and Hypercapneic on ABG - O2 sat 85% on 2 L NC (had to bump to 4L, O2 sat improved to 89-90%), she is now at 2L sating at 93% - IV Solumedrol, Bronchodilators, Decongestant/Expectorant, FV/IS and RT care - Serial CXR Acute Kidney Injury, Improved - Likely 2/2 Intravascular Volume Depletion - She is clinically dehydrated - BUN 51 and CR 2.2, no baseline level--> Cr 1.4 now - Renal U/S: normal renal exam - All meds for pharmacy to renally dose Elevated BNP Level - BNP 794, repeat level in am - No hx/o HF - Level could be affected by JENNIE - Awaiting 2D echo Elevated D-Dimer - 1. 24 likely due to JENNIE and Hypotension - Wells score for PE/DVT is low at 1.5 (suggestive of low probability for VTE ) Asymtomatic Bacteruria - UA suggestive for UTI - She is already on Levaquin/Zosyn Plan: Admit to ICU Titrate to wean off levophed Routine AM Labs Continue PT/OT/RT Discontinue intravenous Abx if she continues to do well in am DVT ppx: Heparin 5000 units SubQ BID SW/CM for d/c planning Code status: 1 Prognosis guarded-serious
[2017-03-04] MEDS: Albuterol/Ipratropium 3.0-0.5 MG/3 ML Neb Soln NEB PRN ×4 (08:59→21:10)
[2017-03-04] MEDS ORDERED: Hydrochlorothiazide 25 MG Tab PO SCH (09:00)
[2017-03-04] MEDS ORDERED: Lisinopril 20 MG Tab PO SCH (09:00)
[2017-03-04] MEDS: Norepinephrine 4 MG in Dextrose 5% in Water 246 ML IV SCH ×2 (10:06)
[2017-03-04] MEDS: Piperacillin/Tazobactam 4.5 GM in Sodium Chloride 0.9% 100 ML IV SCH ×2 (11:14→20:15)
--- NOTE | 2017-03-04 14:04 | US ---
Renal ultrasound: Multiple real-time images of the kidneys were obtained. Slightly prominent collecting systems are seen within both kidneys. Resistivity indices are slightly elevated within both kidneys. No discrete cyst or solid abnormality identified within either kidney. Right kidney measures 10.1 cm in length Left kidney measures 10.8 cm in length Prevoid volume within the bladder is 504 mL and post void volume is 0 mL Impression: 1. Slightly prominent collecting systems of both kidneys. This finding is likely incidental. 2. No additional abnormality identified on renal ultrasound exam. 3. Bladder empties completely on post void exam. 4. Mildly elevated resistivity indices within both kidneys compatible with nonspecific medical renal disease. Diagnostic code #2
[2017-03-04] MEDS: Heparin Sodium 5,000 Units/ML Vial SUBCUT SCH (20:15)
[2017-03-04] MEDS: ALPRAZolam 0.5 MG Tab PO PRN (20:15)
[2017-03-05] MEDS: guaiFENesin/Dextromethorphan 100-10 MG/5 ML Soln 5 ML Cup PO SCH ×6 (00:25→20:38)
[2017-03-05] MEDS: Piperacillin/Tazobactam 4.5 GM in Sodium Chloride 0.9% 100 ML IV SCH (03:19)
[2017-03-05] MEDS: methylPREDNISolone Sodium Succinate 125 MG/2 ML SDV IVPUSH SCH ×3 (03:19→20:42)
[2017-03-05] MEDS: Acetaminophen/HYDROcodone 325-5 MG Tab PO PRN ×4 (05:18→22:43)
[2017-03-05] MEDS: Albuterol/Ipratropium 3.0-0.5 MG/3 ML Neb Soln NEB PRN ×3 (06:14→21:27)
[2017-03-05] MEDS: Budesonide/Formoterol 80-4.5 MCG/Puff 6.9 GM Inhaler INH SCH ×2 (06:14→21:27)
[2017-03-05] MEDS: Heparin Sodium 5,000 Units/ML Vial SUBCUT SCH ×2 (08:16→20:41)
[2017-03-05] MEDS: ALPRAZolam 0.5 MG Tab PO PRN ×2 (09:59→20:40)
[2017-03-05] MEDS ORDERED: Magnesium Sulfate/Water 2 GM in Premix Bag 1 BAG IV ONE (10:00)
--- NOTE | 2017-03-05 10:14 | PCM.SN ---
- Free Text/Narrative Note: On the night of admission, patient's son (Jason) approached me and expressed concerns about his mom's behavior. He told me, patient had been having difficulties controlling her anxiety and that she maybe abusing her xanax. Patient lives with her other son Yusef who is with 2 young children. Patient is unemployed but on disability. However she usually helps out taking care of her grand-children i.e. 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
--- NOTE | 2017-03-05 11:23 | PCM.PN ---
- General Info Date of Service: 03/05/17 Admission Dx/Problem (Free Text): Profound Hypotension and SIRS Subjective Update: Follow Up Functional Status: Reports: pain controlled, tolerating diet, ambulating, urinating. Denies: new symptoms - Review of Systems General: Denies: Fever, Weakness, Fatigue, Malaise, Chills HEENT: Reports: no symptoms Pulmonary: Reports: shortness of breath, cough Cardiovascular: Denies: Chest Pain, Palpitations, Dyspnea on Exertion Gastrointestinal: Denies: Abdominal pain, Nausea, Vomiting Genitourinary: Reports: no symptoms, retention Musculoskeletal: Reports: no symptoms Skin: Denies: cyanosis, rash Neurological: Denies: Confusion, Dizziness, Difficulty Walking, Weakness, Gait Disturbance Psychiatric: Denies: depression, anxiety, hallucinations Systems Review Comment:: No overnight or acute issues. She is doing much better. Her BP is now table. She has no new complaints. - Patient Data Vitals - most recent: Last Vital Signs Temp 36.4 C 03/05/17 07:31 Pulse 98 03/05/17 05:30 Resp 19 03/05/17 09:08 BP 105/71 03/05/17 09:08 Pulse Ox 90 L 03/05/17 09:08 Weight - most recent: 46.176 kg I&O - last 24 hours: Intake & Output 03/04/17 03/05/17 03/05/17 22:59 06:59 14:59 Intake Total 565 440 Output Total 400 1300 Balance 165 -860 Lab Results last 24 hrs: Laboratory Results - last 24 hr 03/04/17 03/05/17 03/05/17 Range/Units 17:20 05:13 05:13 Sodium 136 137 (136-145) mEq/L Potassium 5.0 4.6 (3.5-5.1) mEq/L Chloride 104 104 (98-107) mEq/L Carbon Dioxide 27 27 (21-32) mEq/L Anion Gap 10.0 10.6 (5-15) BUN 29 H 25 H (7-18) mg/dL Creatinine 1.3 H 1.2 H (0.55-1.02) mg/dL Est Cr Clr Drug Dosing 34.25 39.98 mL/min Estimated GFR (MDRD) 43 47 (>60) mL/min BUN/Creatinine Ratio 22.3 H 20.8 H (14-18) Glucose 153 H 139 H (74-106) mg/dL Calcium 8.9 8.9 (8.5-10.1) mg/dL Magnesium 1.6 L (1.8-2.4) mg/dl Troponin I < 0.017 (0.00-0.056) ng/mL C-Reactive Protein 3.4 H* (<1.0) mg/dL B-Natriuretic Peptide 452 H (0-100) pg/mL John Results last 24 hrs: Microbiology 03/03/17 20:40 Urine Culture - Final Urine, Clean Catch Enterobacter Cloacae Med Orders - Current: Current Medications Acetaminophen (Tylenol) 650 mg PO Q4H PRN PRN Reason: Pain (Mild 1-3)/fever Last Admin: 03/05/17 00:24 Dose: 650 mg Hydrocodone Bitart/Acetaminophen ([place] 325-5 Mg) 1 tab PO Q4H PRN PRN Reason: Pain (moderate 4-6) Last Admin: 03/05/17 08:38 Dose: 1 tab Albuterol (Proventil Neb Soln) 2.5 mg NEB Q2H PRN PRN Reason: Cough Last Admin: 03/05/17 00:28 Dose: 2.5 mg Albuterol/Ipratropium (Duoneb 3.0-0.5 Mg/3 Ml) 3 ml NEB Q4H PRN PRN Reason: Shortness Of Breath/wheezing Last Admin: 03/05/17 06:14 Dose: 3 ml Alprazolam (Xanax) 0.5 mg PO TID PRN PRN Reason: Anxiety Last Admin: 03/05/17 09:59 Dose: 0.5 mg Bisacodyl (Dulcolax) 5 mg PO DAILY PRN PRN Reason: Constipation Last Admin: 03/04/17 16:10 Dose: 5 mg Budesonide/Formoterol Fumarate (Symbicort 80-4.5 Mcg) 0 gm INH BIDRT SHAUN Last Admin: 03/05/17 06:14 Dose: 2 puff Docusate Sodium (Colace) 100 mg PO BID PRN PRN Reason: Constipation Guaifenesin/Phenylephrine HCl (Robitussin Dm) 10 ml PO Q4H SHAUN Last Admin: 03/05/17 08:16 Dose: 10 ml Heparin Sodium (Porcine) (Heparin Sodium) 5,000 units SUBCUT Q12HR [facility] Last Admin: 03/05/17 08:16 Dose: 5,000 units Hydralazine HCl (Apresoline) 20 mg IVPUSH Q4H PRN PRN Reason: Hypertension Norepinephrine Bitartrate 4 mg (/ Dextrose/Water) 250 mls @ 37.5 mls/hr IV TITRATE SHAUN; 10 MCG/MIN PRN Reason: Protocol Last Titration: 03/04/17 18:35 Dose: 0 mcg/min, 0 mls/hr Sodium Chloride (Normal Saline) 500 mls @ 999 mls/hr IV .BOLUS SHAUN Promethazine HCl 12.5 mg/ (Sodium Chloride) 50.5 mls @ 100 mls/hr IV Q6H PRN PRN Reason: Nausea/Vomiting Magnesium Sulfate 2 gm/ Premix 50 mls @ 25 mls/hr IV ONETIME ONE Stop: 03/05/17 11:59 Last Admin: 03/05/17 09:58 Dose: 25 mls/hr Lorazepam (Ativan) 0.5 mg IV Q6H PRN PRN Reason: Anxiety Magnesium Hydroxide (Milk Of Magnesia) 30 ml PO Q12H PRN PRN Reason: Constipation Magnesium Sulfate (Pharmacy To Dose - Magnesium Replacement) 1 dose .XX ASDIRECTED [facility] Methylprednisolone Sodium Succinate (Solu-Medrol) 125 mg IVPUSH Q8H [facility] Last Admin: 03/05/17 03:19 Dose: 125 mg Metoprolol Tartrate (Lopressor) 5 mg IVPUSH Q4H PRN PRN Reason: Tachycardia Morphine Sulfate (Morphine) 1 mg IVPUSH Q3H PRN PRN Reason: Other Stop: 03/07/17 20:19 Ondansetron HCl (Zofran) 4 mg IV Q6H PRN PRN Reason: Nausea/Vomiting Polyethylene Glycol (Miralax) 17 gm PO DAILY PRN PRN Reason: Constipation Last Admin: 03/05/17 08:38 Dose: 17 gm Potassium Chloride (Pharmacy To Dose - Potassium Replacement) 1 dose .XX ASDIRECTED [facility] Senna/Docusate Sodium (Senna Plus) 1 tab PO BID PRN PRN Reason: Constipation Temazepam (Restoril) 15 mg PO BEDTIME PRN PRN Reason: Sleep Last Admin: 03/04/17 00:57 Dose: 15 mg Trimethoprim/Sulfamethoxazole (Septra Ds) 1 tab PO BID [facility] Stop: 03/08/17 21:01 Discontinued Medications Budesonide/Formoterol Fumarate (Symbicort 80-4.5 Mcg) 0 gm INH ONETIME ONE Stop: 03/03/17 22:01 Last Admin: 03/03/17 21:47 Dose: 2 puff Guaifenesin (Mucinex) 1,200 mg PO ONETIME ONE Stop: 03/03/17 21:29 Last Admin: 03/03/17 21:51 Dose: 1,200 mg Hydrochlorothiazide (Hydrochlorothiazide) 25 mg PO DAILY [facility] Last Admin: 03/04/17 08:14 Dose: Not Given Sodium Chloride (Normal Saline) 1,000 mls @ 999 mls/hr IV ONETIME ONE Stop: 03/03/17 18:05 Last Admin: 03/03/17 17:13 Dose: 999 mls/hr Sodium Chloride (Normal Saline) 1,000 mls @ 100 mls/hr IV ASDIRECTED [facility] Last Admin: 03/03/17 20:58 Dose: 100 mls/hr Sodium Chloride (Normal Saline) 1,000 mls @ 999 mls/hr IV ONETIME ONE Stop: 03/03/17 20:29 Last Admin: 03/03/17 19:32 Dose: 999 mls/hr Sodium Chloride (Normal Saline) Confirm Administered Dose 1,000 mls @ as directed .ROUTE .STK-MED ONE Stop: 03/03/17 19:30 Last Admin: 03/03/17 19:55 Dose: Not Given Levofloxacin/Dextrose 750 mg/ (Premix) 150 mls @ 150 mls/hr IV Q48H [facility] Last Admin: 03/03/17 20:54 Dose: 150 mls/hr Piperacillin Sod/Tazobactam (Sod 4.5 gm/ Sodium Chloride) 100 mls @ 33.333 mls/ hr IV Q12H [facility] Last Admin: 03/04/17 04:15 Dose: 33.333 mls/hr Piperacillin Sod/Tazobactam (Sod 4.5 gm/ Sodium Chloride) 100 mls @ 200 mls/hr IV ONETIME ONE Stop: 03/03/17 21:14 Last Admin: 03/03/17 20:54 Dose: 200 mls/hr Magnesium Sulfate 2 gm/ Premix 50 mls @ 25 mls/hr IV ONETIME ONE Stop: 03/03/17 22:54 Last Admin: 03/03/17 21:09 Dose: 25 mls/hr Piperacillin Sod/Tazobactam (Sod 4.5 gm/ Sodium Chloride) 100 mls @ 25 mls/hr IV Q8H [facility] Last Admin: 03/05/17 03:19 Dose: 25 mls/hr Lisinopril (Prinivil) 20 mg PO DAILY [facility] Last Admin: 03/04/17 08:14 Dose: Not Given Mometasone Furoate (Asmanex Hfa 100mcg) 0 gm INH BID [facility] Last Admin: 03/03/17 21:52 Dose: Not Given - Exam Quality Assessment: supplemental oxygen General: alert, oriented, cooperative, no acute distress, other (cachexia) HEENT: Pupils equal, Pupils reactive, EOMI, Mucous membr. moist/pink Neck: supple, trachea midline, no JVD, no thyromegaly Lungs: Normal respiratory effort, Decreased breath sounds Cardiovascular: Regular Rate, Regular Rhythm Abdomen: bowel sounds present, soft, no tenderness, no distension (Female) Exam: Deferred Back Exam: Normal Inspection, Decreased Range of Motion Extremities: no edema, normal pulses, no tenderness/swelling, no clubbing, no cyanosis, no calf tenderness Peripheral Pulses: 2+: Dorsalis Pedis (L), Dorsalis Pedis (R) Skin: warm, dry, intact Neurological: no new focal deficit Psy/Mental Status: alert, normal affect, normal mood - Problem List Review Problem List Initiated/Reviewed/Updated: Yes - My Orders Last 24 Hours: My Active Orders 03/04/17 21:00 Heparin Sodium 5,000 units SUBCUT Q12HR 03/05/17 10:00 Magnesium Sulfate/Water [Magnesium Sulfate 2 GM in Water 50 ML] 2 gm Premix Bag 1 bag IV ONETIME 03/05/17 21:00 Sulfamethoxazole/Trimethoprim [Septra DS] 1 tab PO BID 03/06/17 05:11 BASIC METABOLIC PANEL,BMP [CHEM] AM C-REACTIVE PROTEIN [CHEM] AM MAGNESIUM [CHEM] AM 03/07/17 05:11 BASIC METABOLIC PANEL,BMP [CHEM] AM C-REACTIVE PROTEIN [CHEM] AM MAGNESIUM [CHEM] AM 03/08/17 07:00 CBC W/O DIFF,HEMOGRAM [HEME] MOTH@0700 03/11/17 07:00 CBC W/O DIFF,HEMOGRAM [HEME] MOTH@69903/15/17 07:00 CBC W/O DIFF,HEMOGRAM [HEME] MOTH@69903/18/17 07:00 CBC W/O DIFF,HEMOGRAM [HEME] MOTH@69903/22/17 07:00 CBC W/O DIFF,HEMOGRAM [HEME] MOTH@69903/25/17 07:00 CBC W/O DIFF,HEMOGRAM [HEME] MOTH@699 - Plan Plan:: Assessment/Plan: Acute: COPD Exacerbation, Improved - It appears she had advanced COPD based on CXR; no obvious infiltrate - Both hypoxemic and Hypercapneic on ABG - O2 sat 85% on 2 L NC (had to bump to 4L, O2 sat improved to 89-90%), she is now at 2L sating at 93% - IV Solumedrol, Bronchodilators, Decongestant/Expectorant, FV/IS and RT care - CXR in AM Elevated BNP Level - BNP 794, repeat level in am - No hx/o HF - Level could be affected by JENNIE - Awaiting 2D echo Asymptomatic Bacteruria - UA suggestive for UTI - UA pos for E. cloacae sensitive to Bactrim Anxiety and Possible Depression - Tele-psych consult - May need medication adjustment Resolved: S/p Probable Sepsis with Profound Hypotension - No clear etiology of Hypotesion and or source of infection at this time - ED BP 87/60 mmHg at the time of my examination - Failed fluid challenge in ED, she now on Levophed drip - Will give additional 3 L NS, she had no hx/o HF, she is young should be able to handle it - Unclear why she is profoundly hypotensive - LA is 1, will repeat in 3 hrs - UA and UDS are pending - CXR shows hyper-inflated lungs - Still hypotensive but MAP is > 65 mmHg - Continue current treatment S/p Acute Kidney Injury, Improved - Likely 2/2 Intravascular Volume Depletion - She is clinically dehydrated - BUN 51 and CR 2.2, no baseline level--> Cr 1.4 now - Renal U/S: normal renal exam - All meds for pharmacy to renally dose S/p Elevated D-Dimer - 1. 24 likely due to JENNIE and Hypotension - Wells score for PE/DVT is low at 1.5 (suggestive of low probability for VTE ) Plan: She looks clinically stable Transfer to [facility] Discontinue IV Antibiotics Routine AM Labs Continue PT/OT/RT Start oral Bactrim for UTI DVT ppx: Heparin 5000 units SubQ BID SW/CM for d/c planning Code status: 1
[2017-03-05] MEDS ORDERED: LORazepam 2 MG/ML MDV IVPUSH PRN (13:57)
[2017-03-05] MEDS ORDERED: Iopamidol 755 Mg/ML 100 ML Bottle IVPUSH ONE (20:35)
[2017-03-05] MEDS: Sulfamethoxazole/Trimethoprim 800-160 MG Tab PO SCH (20:40)
[2017-03-05] MEDS ORDERED: Sodium Chloride 0.9% 250 ML IV SCH (20:45)
[2017-03-05] MEDS ORDERED: Sodium Chloride 0.9% 100 ML IV SCH (20:45)
--- NOTE | 2017-03-05 21:29 | CT ---
CT chest Technique: Multiple axial sections through the chest were obtained. Study performed as a pulmonary angiogram protocol. Findings: Pulmonary arteries are well-opacified. No filling defects are seen to indicate pulmonary embolism. Small bilateral pleural effusions are seen. Mild right lower lobe atelectasis is seen which is likely on a compressive basis from the pleural effusion. Aorta shows mild atherosclerotic change without aneurysmal dilatation. No mediastinal or hilar adenopathy is seen. Mild coronary artery calcification is seen. Small portion of the visualized upper abdominal structures are unremarkable. Emphysematous changes are seen within the lungs. Lungs otherwise are clear. Bone window settings were reviewed which appear unremarkable. Impression: 1. Small bilateral pleural effusions with mild right lower lobe atelectasis. 2. No findings of pulmonary embolism. 3. Emphysematous change. Diagnostic code #3
[2017-03-06] MEDS: guaiFENesin/Dextromethorphan 100-10 MG/5 ML Soln 5 ML Cup PO SCH ×6 (00:54→20:13)
[2017-03-06] MEDS: methylPREDNISolone Sodium Succinate 125 MG/2 ML SDV IVPUSH SCH ×3 (04:35→20:12)
[2017-03-06] MEDS: Acetaminophen/HYDROcodone 325-5 MG Tab PO PRN ×4 (04:36→20:28)
--- NOTE | 2017-03-06 06:38 | PCM.PN ---
- General Info Date of Service: 03/06/17 Admission Dx/Problem (Free Text): Profound Hypotension and SIRS Subjective Update: Follow Up Functional Status: Reports: pain controlled, tolerating diet, ambulating, urinating. Denies: new symptoms - Review of Systems General: Denies: Fever, Weakness, Fatigue, Malaise, Chills HEENT: Denies: contact lenses Pulmonary: Reports: shortness of breath, cough Cardiovascular: Reports: Dyspnea on Exertion (baseline). Denies: Chest Pain, Palpitations, Lightheadedness Gastrointestinal: Denies: Abdominal pain, Nausea, Vomiting Genitourinary: Reports: no symptoms Musculoskeletal: Reports: no symptoms Skin: Denies: cyanosis, pruritis, rash Neurological: Reports: Weakness. Denies: Confusion, Difficulty Walking, Gait Disturbance Psychiatric: Reports: anxiety. Denies: depression, agitation, hallucinations Systems Review Comment:: No overnight or acute issues. She is doing okay. She complaints of an headache. She seems to near her baseline. She told me in the past she was offered O2 but refused it. She wants her right arm IV access line removed. She has other complaints. - Patient Data Vitals - most recent: Last Vital Signs Temp 37.3 C 03/06/17 00:37 Pulse 101 H 03/06/17 00:37 Resp 16 03/06/17 00:37 BP 104/66 03/06/17 00:37 Pulse Ox 90 L 03/06/17 00:37 Weight - most recent: 46.675 kg I&O - last 24 hours: Intake & Output 03/05/17 03/05/17 03/06/17 14:59 22:59 06:59 Intake Total 650 780 300 Output Total 400 600 Balance 250 780 -300 Lab Results last 24 hrs: Laboratory Results - last 24 hr 03/05/17 03/05/17 Range/Units 05:13 05:13 Sodium 137 (136-145) mEq/L Potassium 4.6 (3.5-5.1) mEq/L Chloride 104 (98-107) mEq/L Carbon Dioxide 27 (21-32) mEq/L Anion Gap 10.6 (5-15) BUN 25 H (7-18) mg/dL Creatinine 1.2 H (0.55-1.02) mg/dL Est Cr Clr Drug Dosing 39.98 mL/min Estimated GFR (MDRD) 47 (>60) mL/min BUN/Creatinine Ratio 20.8 H (14-18) Glucose 139 H (74-106) mg/dL Calcium 8.9 (8.5-10.1) mg/dL Magnesium 1.6 L (1.8-2.4) mg/dl C-Reactive Protein 3.4 H* (<1.0) mg/dL B-Natriuretic Peptide 452 H (0-100) pg/mL John Results last 24 hrs: Microbiology 03/03/17 20:40 Urine Culture - Final Urine, Clean Catch Enterobacter Cloacae Med Orders - Current: Current Medications Acetaminophen (Tylenol) 650 mg PO Q4H PRN PRN Reason: Pain (Mild 1-3)/fever Last Admin: 03/05/17 00:24 Dose: 650 mg Hydrocodone Bitart/Acetaminophen ([place] 325-5 Mg) 1 tab PO Q4H PRN PRN Reason: Pain (moderate 4-6) Last Admin: 03/06/17 04:36 Dose: 1 tab Albuterol (Proventil Neb Soln) 2.5 mg NEB Q2H PRN PRN Reason: Cough Last Admin: 03/05/17 00:28 Dose: 2.5 mg Albuterol/Ipratropium (Duoneb 3.0-0.5 Mg/3 Ml) 3 ml NEB Q4H PRN PRN Reason: Shortness Of Breath/wheezing Last Admin: 03/05/17 21:27 Dose: 3 ml Alprazolam (Xanax) 0.5 mg PO TID PRN PRN Reason: Anxiety Last Admin: 03/05/17 20:40 Dose: 0.5 mg Bisacodyl (Dulcolax) 5 mg PO DAILY PRN PRN Reason: Constipation Last Admin: 03/04/17 16:10 Dose: 5 mg Budesonide/Formoterol Fumarate (Symbicort 80-4.5 Mcg) 0 gm INH BIDRT SHAUN Last Admin: 03/05/17 21:27 Dose: 2 puff Docusate Sodium (Colace) 100 mg PO BID PRN PRN Reason: Constipation Guaifenesin/Phenylephrine HCl (Robitussin Dm) 10 ml PO Q4H [facility] Last Admin: 03/06/17 04:35 Dose: 10 ml Heparin Sodium (Porcine) (Heparin Sodium) 5,000 units SUBCUT Q12HR [facility] Last Admin: 03/05/17 20:41 Dose: 5,000 units Hydralazine HCl (Apresoline) 20 mg IVPUSH Q4H PRN PRN Reason: Hypertension Sodium Chloride (Normal Saline) 500 mls @ 999 mls/hr IV .BOLUS SHAUN Promethazine HCl 12.5 mg/ (Sodium Chloride) 50.5 mls @ 100 mls/hr IV Q6H PRN PRN Reason: Nausea/Vomiting Sodium Chloride (Normal Saline) 100 mls @ 75 mls/hr IV ASDIRECTED SHAUN Sodium Chloride (Normal Saline) 250 mls @ 999 mls/hr IV ASDIRECTED [facility] Lorazepam (Ativan) 0.5 mg IV Q6H PRN PRN Reason: Anxiety Magnesium Hydroxide (Milk Of Magnesia) 30 ml PO Q12H PRN PRN Reason: Constipation Magnesium Sulfate (Pharmacy To Dose - Magnesium Replacement) 1 dose .XX ASDIRECTED [facility] Methylprednisolone Sodium Succinate (Solu-Medrol) 125 mg IVPUSH Q8H [facility] Last Admin: 03/06/17 04:35 Dose: 125 mg Metoprolol Tartrate (Lopressor) 5 mg IVPUSH Q4H PRN PRN Reason: Tachycardia Morphine Sulfate (Morphine) 1 mg IVPUSH Q3H PRN PRN Reason: Other Stop: 03/07/17 20:19 Ondansetron HCl (Zofran) 4 mg IV Q6H PRN PRN Reason: Nausea/Vomiting Polyethylene Glycol (Miralax) 17 gm PO DAILY PRN PRN Reason: Constipation Last Admin: 03/05/17 08:38 Dose: 17 gm Potassium Chloride (Pharmacy To Dose - Potassium Replacement) 1 dose .XX ASDIRECTED [facility] Senna/Docusate Sodium (Senna Plus) 1 tab PO BID PRN PRN Reason: Constipation Temazepam (Restoril) 15 mg PO BEDTIME PRN PRN Reason: Sleep Last Admin: 03/04/17 00:57 Dose: 15 mg Trimethoprim/Sulfamethoxazole (Septra Ds) 1 tab PO BID [facility] Stop: 03/08/17 21:01 Last Admin: 03/05/17 20:40 Dose: 1 tab Discontinued Medications Budesonide/Formoterol Fumarate (Symbicort 80-4.5 Mcg) 0 gm INH ONETIME ONE Stop: 03/03/17 22:01 Last Admin: 03/03/17 21:47 Dose: 2 puff Guaifenesin (Mucinex) 1,200 mg PO ONETIME ONE Stop: 03/03/17 21:29 Last Admin: 03/03/17 21:51 Dose: 1,200 mg Hydrochlorothiazide (Hydrochlorothiazide) 25 mg PO DAILY [facility] Last Admin: 03/04/17 08:14 Dose: Not Given Sodium Chloride (Normal Saline) 1,000 mls @ 999 mls/hr IV ONETIME ONE Stop: 03/03/17 18:05 Last Admin: 03/03/17 17:13 Dose: 999 mls/hr Norepinephrine Bitartrate 4 mg (/ Dextrose/Water) 250 mls @ 37.5 mls/hr IV TITRATE SHAUN; 10 MCG/MIN PRN Reason: Protocol Last Titration: 03/04/17 18:35 Dose: 0 mcg/min, 0 mls/hr Sodium Chloride (Normal Saline) 1,000 mls @ 100 mls/hr IV ASDIRECTED [facility] Last Admin: 03/03/17 20:58 Dose: 100 mls/hr Sodium Chloride (Normal Saline) 1,000 mls @ 999 mls/hr IV ONETIME ONE Stop: 03/03/17 20:29 Last Admin: 03/03/17 19:32 Dose: 999 mls/hr Sodium Chloride (Normal Saline) Confirm Administered Dose 1,000 mls @ as directed .ROUTE .STK-MED ONE Stop: 03/03/17 19:30 Last Admin: 03/03/17 19:55 Dose: Not Given Levofloxacin/Dextrose 750 mg/ (Premix) 150 mls @ 150 mls/hr IV Q48H [facility] Last Admin: 03/03/17 20:54 Dose: 150 mls/hr Piperacillin Sod/Tazobactam (Sod 4.5 gm/ Sodium Chloride) 100 mls @ 33.333 mls/ hr IV Q12H [facility] Last Admin: 03/04/17 04:15 Dose: 33.333 mls/hr Piperacillin Sod/Tazobactam (Sod 4.5 gm/ Sodium Chloride) 100 mls @ 200 mls/hr IV ONETIME ONE Stop: 03/03/17 21:14 Last Admin: 03/03/17 20:54 Dose: 200 mls/hr Magnesium Sulfate 2 gm/ Premix 50 mls @ 25 mls/hr IV ONETIME ONE Stop: 03/03/17 22:54 Last Admin: 03/03/17 21:09 Dose: 25 mls/hr Piperacillin Sod/Tazobactam (Sod 4.5 gm/ Sodium Chloride) 100 mls @ 25 mls/hr IV Q8H [facility] Last Admin: 03/05/17 03:19 Dose: 25 mls/hr Magnesium Sulfate 2 gm/ Premix 50 mls @ 25 mls/hr IV ONETIME ONE Stop: 03/05/17 11:59 Last Admin: 03/05/17 09:58 Dose: 25 mls/hr Iopamidol (Isovue-370 (76%)) 100 ml IVPUSH ONETIME ONE Stop: 03/05/17 20:36 Last Admin: 03/05/17 21:08 Dose: 100 ml Lisinopril (Prinivil) 20 mg PO DAILY [facility] Last Admin: 03/04/17 08:14 Dose: Not Given Lorazepam (Ativan) 1 mg IVPUSH Q4H PRN; Protocol PRN Reason: Withdrawal Symptoms Mometasone Furoate (Asmanex Hfa 100mcg) 0 gm INH BID [facility] Last Admin: 03/03/17 21:52 Dose: Not Given - Exam Quality Assessment: supplemental oxygen General: alert, cooperative, no acute distress, other (cachexia) HEENT: Pupils equal, Pupils reactive, EOMI, Mucous membr. moist/pink Neck: supple, trachea midline, no JVD Lungs: Normal respiratory effort, Decreased breath sounds, Other (no accessory muscle use) Cardiovascular: Regular Rate, Regular Rhythm Abdomen: bowel sounds present, soft, no tenderness, no distension (Female) Exam: Deferred Back Exam: Normal Inspection, Decreased Range of Motion Extremities: no edema, normal pulses, no tenderness/swelling, no clubbing, no cyanosis, no calf tenderness Peripheral Pulses: 2+: Dorsalis Pedis (L), Dorsalis Pedis (R) Skin: warm, dry, intact Neurological: no new focal deficit Psy/Mental Status: alert, normal affect, normal mood - Problem List Review Problem List Initiated/Reviewed/Updated: Yes - My Orders Last 24 Hours: My Active Orders 03/05/17 19:58 Venous Doppler Lwr Ext Bi [US] Routine 03/05/17 20:45 Sodium Chloride 0.9% [Normal Saline] 100 ml IV ASDIRECTED Sodium Chloride 0.9% [Normal Saline] 250 ml IV ASDIRECTED 03/05/17 21:00 Sulfamethoxazole/Trimethoprim [Septra DS] 1 tab PO BID 03/06/17 05:11 BASIC METABOLIC PANEL,BMP [CHEM] AM C-REACTIVE PROTEIN [CHEM] AM MAGNESIUM [CHEM] AM 03/07/17 05:11 BASIC METABOLIC PANEL,BMP [CHEM] AM C-REACTIVE PROTEIN [CHEM] AM MAGNESIUM [CHEM] AM 03/08/17 07:00 CBC W/O DIFF,HEMOGRAM [HEME] MOTH@0700 03/11/17 07:00 CBC W/O DIFF,HEMOGRAM [HEME] MOTH@0700 03/15/17 07:00 CBC W/O DIFF,HEMOGRAM [HEME] MOTH@0700 03/18/17 07:00 CBC W/O DIFF,HEMOGRAM [HEME] MOTH@0700 03/22/17 07:00 CBC W/O DIFF,HEMOGRAM [HEME] MOTH@0700 03/25/17 07:00 CBC W/O DIFF,HEMOGRAM [HEME] MOTH@0700 - Plan Plan:: Assessment/Plan: Acute: Grade 3 PAH (Pulmonary Arterial Hypertension) - 2/2 COPD - CTA/Duplex U/S r/o PE/DVT: both negative for blood clot - Discussed case with Dr. Lion last night and this morning: no recommendation given but to follow up with pulmonology after discharge as patient is now stable and she is near at her baseline COPD Exacerbation, Improved - It appears she had advanced COPD based on CXR; no obvious infiltrate - Both hypoxemic and Hypercapneic on ABG - O2 sat 85% on 2 L NC (had to bump to 4L, O2 sat improved to 89-90%), she is now at 2L sating at 93% - IV Solumedrol, Bronchodilators, Decongestant/Expectorant, FV/IS and RT care - No need for f/u CXR she had CT last night - Assess for O2 needs for chronic hypoxia Small B/L Pleural Effusions with Right Mid Lower Lung Atelectasis - Incentive Spirometry as directed Asymptomatic Bacteruria - UA suggestive for UTI - UA pos for E. cloacae sensitive to Bactrim - Continue Bactrim Anxiety and Possible Depression - Tele-psych consulted - Dr Neumann to stay on the same regiment and follow up with him outpatient Headache - PRN fioricet 2 tabs po Q6 Resolved: S/p Probable Sepsis with Profound Hypotension - No clear etiology of Hypotesion and or source of infection at this time - ED BP 87/60 mmHg at the time of my examination - Failed fluid challenge in ED, she now on Levophed drip - Will give additional 3 L NS, she had no hx/o HF, she is young should be able to handle it - Unclear why she is profoundly hypotensive - LA is 1, will repeat in 3 hrs - UA and UDS are pending - CXR shows hyper-inflated lungs - Still hypotensive but MAP is > 65 mmHg - Continue current treatment S/p Acute Kidney Injury, Improved - Likely 2/2 Intravascular Volume Depletion - She is clinically dehydrated - BUN 51 and CR 2.2, no baseline level--> Cr 1.4 now - Renal U/S: normal renal exam - All meds for pharmacy to renally dose S/p Elevated D-Dimer - 1. 24 likely due to JENNIE and Hypotension - Wells score for PE/DVT is low at 1.5 (suggestive of low probability for VTE ) S/p Elevated BNP Level - BNP 794, repeat level in am - No hx/o HF - Level could be affected by JENNIE - 2D echo: LEVF 70-75% (hyperdynamic) with Increased RVSP noted at 65.8 mmHg. No LV diastolic dysfunction. Plan: She remains clinically stable Routine AM Labs Continue PT/OT/RT DVT ppx: Heparin 5000 units SubQ BID SW/CM for d/c planning Code status: 1 LOS > 96 hrs due to slow response to treatment
[2017-03-06] MEDS: Albuterol/Ipratropium 3.0-0.5 MG/3 ML Neb Soln NEB PRN ×3 (06:53→17:18)
[2017-03-06] MEDS: Budesonide/Formoterol 80-4.5 MCG/Puff 6.9 GM Inhaler INH SCH ×2 (06:54→20:41)
[2017-03-06] MEDS: ALPRAZolam 0.5 MG Tab PO PRN ×2 (07:13→20:28)
[2017-03-06] MEDS: Sulfamethoxazole/Trimethoprim 800-160 MG Tab PO SCH ×2 (08:31→20:12)
[2017-03-06] MEDS: Heparin Sodium 5,000 Units/ML Vial SUBCUT SCH ×2 (08:31→20:12)
[2017-03-06] MEDS ORDERED: Acetaminophen/Butalbital/Caffeine 325-50-40 MG Tab PO PRN (09:10)
[2017-03-06] MEDS ORDERED: Magnesium Sulfate/Water 2 GM in Premix Bag 1 BAG IV ONE (11:00)
[2017-03-06] MEDS: Magnesium Oxide 400 MG Tab PO SCH ×2 (11:15→20:12)
--- NOTE | 2017-03-06 19:22 | PCM.DCSUM1 ---
Discharge Summary - Hospital Course Brief History: This is a 51 yo white female with past medical hx/o HTN, COPD, Anxiety and Depression who comes in with comes from the clinic with complaints of multiple issues: generalized weakness, malaise, decreased appetite, dark urine, subjective fever, chills and productive cough with greenish sputum that started 4 days ago adn was admiited for profound hypotension and probable sepsis. - Discharge Data Discharge Date: 03/07/17 Discharge Disposition: Home, Self-Care 01 Condition: Good - Discharge Diagnosis/Problem(s) (1) Pulmonary hypertension SNOMED Code(s): 68974096 ICD Code: I27.2 - OTHER SECONDARY PULMONARY HYPERTENSION Status: Acute Current Visit: Yes (2) COLD, Chronic obstructive lung disease SNOMED Code(s): 10423792 ICD Code: J44.9 - CHRONIC OBSTRUCTIVE PULMONARY DISEASE, UNSPECIFIED Status : Chronic Current Visit: No (3) Acute renal failure SNOMED Code(s): 02126820 ICD Code: N17.9 - ACUTE KIDNEY FAILURE, UNSPECIFIED Status: Resolved Current Visit: Yes (4) Acute respiratory acidosis SNOMED Code(s): 71612757 ICD Code: E87.2 - ACIDOSIS Status: Resolved Current Visit: Yes (5) Elevated brain natriuretic peptide (BNP) level SNOMED Code(s): 619179877 ICD Code: R79.89 - OTHER SPECIFIED ABNORMAL FINDINGS OF BLOOD CHEMISTRY Status: Resolved Current Visit: Yes (6) Hypotension SNOMED Code(s): 01276735 ICD Code: I95.9 - HYPOTENSION, UNSPECIFIED Status: Resolved Current Visit : Yes (7) Asymptomatic bacteriuria SNOMED Code(s): 674253949 ICD Code: R82.71 - BACTERIURIA Status: Acute Current Visit: Yes (8) Oral candidiasis SNOMED Code(s): 54900813 ICD Code: B37.0 - CANDIDAL STOMATITIS Status: Acute Current Visit: Yes (9) Hypomagnesemia SNOMED Code(s): 910392923 ICD Code: E83.42 - HYPOMAGNESEMIA Status: Acute Current Visit: Yes - Patient Summary/Data Operative Procedure(s) Performed: None Complications: None Consults: Consultations 03/03/17 20:22 Consult to Case Management [CONS] Routine Consult to Pneumatic Tester [CONS] Routine Consult to Spiritual Care [CONS] Routine OT Evaluation and Treatment [CONS] Routine PT Evaluation and Treatment [CONS] Routine Respiratory Care Assess and Treatment [CONS] Routine 03/04/17 06:31 Consult to Physician [CONS] Routine Hospital Course: Patient was primarily admitted for profound hypotension suspected due to sepsis. Upon presentation to the emergency department from the clinic, the patient looked miserable and was in severe respiratory distress. Patient received initial treatment with volume resuscitative measures. Central intravenous access line was then pursued and Levophed drip was administered to further improve her hemodynamic instability. Her sepsis workup revealed no clear strong cause of her profound hypotension. Chest x-ray showed hyperinflation lungs without obvious infiltrate. Blood cultures were negative. Her UA grew Enterobacter cloacae, but patient was never symptomatic. However, she received appropriate antibiotic during this hospitalization to treat her bacteruria. On this admission, she was found to have an elevated d-dimer. CT scan was initially deferred due to acute kidney injury from intravascular volume depletion. But once her renal function improved, both CTA and lower extremity duplex ultrasound were pursed. Both tests revealed no blood clot. Patient had a hyperdynamic EF of 70-75% with increased RVSP of 65.8 mmHg on 2D echo. This suggest patient had pulmonary arterial hypertension, possibly do to her underlying advanced COPD. The same test showed no diastolic dysfunction. Therefore, patient was told followup with her trumpet teacher right after discharge. On this admission, on-call trumpet teacher (Dr. Lion) [facility], was utilized for medical management of this patient's lungs disease. Overall, Mary has done well. She is now base to her baseline and ready for discharge. She was advised to quit smoking and use her supplemental O2 as directed. Patient will resume the same home medication regimen except for her BP meds. A short course of supplemental magnesium oxide will be provided for her hypomagnesemia. She was advised to check and log her blood pressure at least twice a day, and 3 times a week. She is to show her log on her followup appointment with her primary care in 1-2 week for further medication adjustment. She will also follow up with Dr. Neumann as directed for her underlying anxiety. She expressed understanding and agreement with plans as discussed above. All questions were answered. - Patient Instructions Diet: Usual Diet as Tolerated Activity: As Tolerated Driving: Do Not Drive Showering/Bathing: May Shower Notify Provider of: Fever, Increased Pain, Swelling and Redness, Nausea and/or Vomiting Other/Special Instructions: - Please resume all home meds except your blood pressur medications. - Check your BP at least twice a day and three timesa week , show log to your family doctor on your follow up appointment. - Recommend you follow up with Pulmonology after discharge for PAH. - Keep you appointments if not already scheduled with your family doctor and with Dr. Neumann - Discharge Plan Prescriptions/Med Rec: Acetaminophen/HYDROcodone [[place] 325-5 MG] 1 tab PO Q6H PRN #15 tablet PRN Reason: Pain Fluconazole [Diflucan] 100 mg PO DAILY #13 tablet Magnesium Oxide 400 mg PO BID #15 tablet Home Medications: Home Meds ALPRAZolam [Xanax] 0.5 mg PO TID PRN #20 tablet 02/25/14 [Rx] Albuterol Sulfate [Albuterol Sulfate HFA] 2 puff INH BID PRN 02/25/14 [History] Budesonide/Formoterol Fumarate [Symbicort 80-4.5 Mcg Inhaler] 10.2 gm IH BID [History] Albuterol/Ipratropium [DuoNeb 3.0-0.5 MG/3 ML] 3 ml INH Q4HR PRN 11/03/14 [ History] Acetaminophen/HYDROcodone [[place] 325-5 MG] 1 tab PO Q6H PRN #15 tablet 03/07/17 [Rx] Fluconazole [Diflucan] 100 mg PO DAILY #13 tablet 03/07/17 [Rx] Magnesium Oxide 400 mg PO BID #15 tablet 03/07/17 [Rx] Patient Handouts: Smoking Cessation, Tips for Success, [id number], Hypotension, [id number] Referrals: Liza Fernandez PHYSICIAN ALLERGIST IMMUNOLOGIST [Primary Care Provider] - (Please follow up with Liza Fernandez in 1-2 weeks. ) Dionte Neumann MD [Physician] - - Discharge Summary/Plan Comment DC Time >30 min.: Yes (45 mins) Discharge Summary/Plan Comment: Discharge to Home - General Info Date of Service: 03/07/17 Admission Dx/Problem (Free Text: Profound Hypotension and SIRS Subjective Update: Follow Up Functional Status: Reports: pain controlled, tolerating diet, ambulating, urinating, new symptoms - Review of Systems General: Denies: Fever, Weakness, Fatigue, Malaise, Chills HEENT: Reports: no symptoms Pulmonary: Reports: shortness of breath, cough Cardiovascular: Reports: Dyspnea on Exertion. Denies: Chest Pain, Edema, Lightheadedness Gastrointestinal: Denies: Abdominal pain, Nausea, Vomiting Genitourinary: Reports: no symptoms Musculoskeletal: Reports: no symptoms Skin: Denies: cyanosis, mottled, pallor, pruritis Neurological: Denies: Confusion, Dizziness, Difficulty Walking, Weakness, Gait Disturbance Psychiatric: Denies: depression, agitation, cravings Systems Review Comment: No overnight or acute issues. She is now at baseline. She has no new complaints. - Patient Data Vitals - Most Recent: Last Vital Signs Temp 36.7 C 03/06/17 16:23 Pulse 86 03/06/17 16:23 Resp 12 03/06/17 16:23 BP 121/84 03/06/17 16:23 Pulse Ox 91 L 03/06/17 17:18 Weight - Most Recent: 46.675 kg I&O - Last 24 hours: Intake & Output 03/06/17 03/06/17 03/06/17 06:59 14:59 22:59 Intake Total 300 828 Output Total 600 500 Balance -300 328 Lab Results - Last 24 hrs: Laboratory Results - last 24 hr 03/06/17 Range/Units 06:40 Sodium 137 (136-145) mEq/L Potassium 4.6 (3.5-5.1) mEq/L Chloride 103 (98-107) mEq/L Carbon Dioxide 27 (21-32) mEq/L Anion Gap 11.6 (5-15) BUN 29 H (7-18) mg/dL Creatinine 1.1 H (0.55-1.02) mg/dL Est Cr Clr Drug Dosing 44.08 mL/min Estimated GFR (MDRD) 52 (>60) mL/min BUN/Creatinine Ratio 26.4 H (14-18) Glucose 137 H (74-106) mg/dL Calcium 9.1 (8.5-10.1) mg/dL Magnesium 1.7 L (1.8-2.4) mg/dl C-Reactive Protein 1.9 H* (<1.0) mg/dL Med Orders - Current: Current Medications Acetaminophen (Tylenol) 650 mg PO Q4H PRN PRN Reason: Pain (Mild 1-3)/fever Last Admin: 03/05/17 00:24 Dose: 650 mg Acetaminophen/Butalbital/Caffeine (Fioricet 325-50-40 Mg) 2 tab PO Q6H PRN PRN Reason: Headache/Pain Hydrocodone Bitart/Acetaminophen ([place] 325-5 Mg) 1 tab PO Q4H PRN PRN Reason: Pain (moderate 4-6) Last Admin: 03/06/17 15:27 Dose: 1 tab Albuterol (Proventil Neb Soln) 2.5 mg NEB Q2H PRN PRN Reason: Cough Last Admin: 03/05/17 00:28 Dose: 2.5 mg Albuterol/Ipratropium (Duoneb 3.0-0.5 Mg/3 Ml) 3 ml NEB Q4H PRN PRN Reason: Shortness Of Breath/wheezing Last Admin: 03/06/17 17:18 Dose: 3 ml Alprazolam (Xanax) 0.5 mg PO TID PRN PRN Reason: Anxiety Last Admin: 03/06/17 07:13 Dose: 0.5 mg Bisacodyl (Dulcolax) 5 mg PO DAILY PRN PRN Reason: Constipation Last Admin: 03/04/17 16:10 Dose: 5 mg Budesonide/Formoterol Fumarate (Symbicort 80-4.5 Mcg) 0 gm INH BIDRT [facility] Last Admin: 03/06/17 06:54 Dose: 2 puff Docusate Sodium (Colace) 100 mg PO BID PRN PRN Reason: Constipation Guaifenesin/Phenylephrine HCl (Robitussin Dm) 10 ml PO Q4H [facility] Last Admin: 03/06/17 18:26 Dose: 10 ml Heparin Sodium (Porcine) (Heparin Sodium) 5,000 units SUBCUT Q12HR [facility] Last Admin: 03/06/17 08:31 Dose: 5,000 units Hydralazine HCl (Apresoline) 20 mg IVPUSH Q4H PRN PRN Reason: Hypertension Sodium Chloride (Normal Saline) 500 mls @ 999 mls/hr IV .BOLUS SHAUN Promethazine HCl 12.5 mg/ (Sodium Chloride) 50.5 mls @ 100 mls/hr IV Q6H PRN PRN Reason: Nausea/Vomiting Lorazepam (Ativan) 0.5 mg IV Q6H PRN PRN Reason: Anxiety Magnesium Hydroxide (Milk Of Magnesia) 30 ml PO Q12H PRN PRN Reason: Constipation Magnesium Oxide (Magnesium Oxide) 400 mg PO BID [facility] Last Admin: 03/06/17 11:15 Dose: 400 mg Magnesium Sulfate (Pharmacy To Dose - Magnesium Replacement) 1 dose .XX ASDIRECTED [facility] Methylprednisolone Sodium Succinate (Solu-Medrol) 125 mg IVPUSH Q8H [facility] Last Admin: 03/06/17 11:15 Dose: 125 mg Metoprolol Tartrate (Lopressor) 5 mg IVPUSH Q4H PRN PRN Reason: Tachycardia Morphine Sulfate (Morphine) 1 mg IVPUSH Q3H PRN PRN Reason: Other Stop: 03/07/17 20:19 Ondansetron HCl (Zofran) 4 mg IV Q6H PRN PRN Reason: Nausea/Vomiting Polyethylene Glycol (Miralax) 17 gm PO DAILY PRN PRN Reason: Constipation Last Admin: 03/05/17 08:38 Dose: 17 gm Potassium Chloride (Pharmacy To Dose - Potassium Replacement) 1 dose .XX ASDIRECTED [facility] Senna/Docusate Sodium (Senna Plus) 1 tab PO BID PRN PRN Reason: Constipation Temazepam (Restoril) 15 mg PO BEDTIME PRN PRN Reason: Sleep Last Admin: 03/04/17 00:57 Dose: 15 mg Trimethoprim/Sulfamethoxazole (Septra Ds) 1 tab PO BID [facility] Stop: 03/08/17 21:01 Last Admin: 03/06/17 08:31 Dose: 1 tab Discontinued Medications Budesonide/Formoterol Fumarate (Symbicort 80-4.5 Mcg) 0 gm INH ONETIME ONE Stop: 03/03/17 22:01 Last Admin: 03/03/17 21:47 Dose: 2 puff Guaifenesin (Mucinex) 1,200 mg PO ONETIME ONE Stop: 03/03/17 21:29 Last Admin: 03/03/17 21:51 Dose: 1,200 mg Hydrochlorothiazide (Hydrochlorothiazide) 25 mg PO DAILY [facility] Last Admin: 03/04/17 08:14 Dose: Not Given Sodium Chloride (Normal Saline) 1,000 mls @ 999 mls/hr IV ONETIME ONE Stop: 03/03/17 18:05 Last Admin: 03/03/17 17:13 Dose: 999 mls/hr Norepinephrine Bitartrate 4 mg (/ Dextrose/Water) 250 mls @ 37.5 mls/hr IV TITRATE SHAUN; 10 MCG/MIN PRN Reason: Protocol Last Titration: 03/04/17 18:35 Dose: 0 mcg/min, 0 mls/hr Sodium Chloride (Normal Saline) 1,000 mls @ 100 mls/hr IV ASDIRECTED [facility] Last Admin: 03/03/17 20:58 Dose: 100 mls/hr Sodium Chloride (Normal Saline) 1,000 mls @ 999 mls/hr IV ONETIME ONE Stop: 03/03/17 20:29 Last Admin: 03/03/17 19:32 Dose: 999 mls/hr Sodium Chloride (Normal Saline) Confirm Administered Dose 1,000 mls @ as directed .ROUTE .STK-MED ONE Stop: 03/03/17 19:30 Last Admin: 03/03/17 19:55 Dose: Not Given Levofloxacin/Dextrose 750 mg/ (Premix) 150 mls @ 150 mls/hr IV Q48H [facility] Last Admin: 03/03/17 20:54 Dose: 150 mls/hr Piperacillin Sod/Tazobactam (Sod 4.5 gm/ Sodium Chloride) 100 mls @ 33.333 mls/ hr IV Q12H [facility] Last Admin: 03/04/17 04:15 Dose: 33.333 mls/hr Piperacillin Sod/Tazobactam (Sod 4.5 gm/ Sodium Chloride) 100 mls @ 200 mls/hr IV ONETIME ONE Stop: 03/03/17 21:14 Last Admin: 03/03/17 20:54 Dose: 200 mls/hr Magnesium Sulfate 2 gm/ Premix 50 mls @ 25 mls/hr IV ONETIME ONE Stop: 03/03/17 22:54 Last Admin: 03/03/17 21:09 Dose: 25 mls/hr Piperacillin Sod/Tazobactam (Sod 4.5 gm/ Sodium Chloride) 100 mls @ 25 mls/hr IV Q8H [facility] Last Admin: 03/05/17 03:19 Dose: 25 mls/hr Magnesium Sulfate 2 gm/ Premix 50 mls @ 25 mls/hr IV ONETIME ONE Stop: 03/05/17 11:59 Last Admin: 03/05/17 09:58 Dose: 25 mls/hr Sodium Chloride (Normal Saline) 100 mls @ 75 mls/hr IV ASDIRECTED SHAUN Sodium Chloride (Normal Saline) 250 mls @ 999 mls/hr IV ASDIRECTED SHAUN Magnesium Sulfate 2 gm/ Premix 50 mls @ 25 mls/hr IV ONETIME ONE Stop: 03/06/17 12:59 Last Admin: 03/06/17 11:14 Dose: 25 mls/hr Iopamidol (Isovue-370 (76%)) 100 ml IVPUSH ONETIME ONE Stop: 03/05/17 20:36 Last Admin: 03/05/17 21:08 Dose: 100 ml Lisinopril (Prinivil) 20 mg PO DAILY [facility] Last Admin: 03/04/17 08:14 Dose: Not Given Lorazepam (Ativan) 1 mg IVPUSH Q4H PRN; Protocol PRN Reason: Withdrawal Symptoms Mometasone Furoate (Asmanex Hfa 100mcg) 0 gm INH BID [facility] Last Admin: 03/03/17 21:52 Dose: Not Given - Exam Quality Assessment: Reports: supplemental oxygen General: Reports: alert, oriented, cooperative, no acute distress HEENT: Reports: Pupils equal, Pupils reactive, EOMI, Mucous membr. moist/pink Neck: Reports: supple, trachea midline, no JVD, other (no acessory muscle use) Lungs: Reports: Clear to auscultation, Normal respiratory effort, Decreased breath sounds Cardiovascular: Reports: Regular Rate, Regular Rhythm Abdomen: Reports: bowel sounds present, soft, no tenderness, no distension (Female) Exam: Deferred Rectal (Female) Exam: Deferred Back Exam: Reports: Normal Inspection, Decreased Range of Motion Extremities: Reports: no edema, normal pulses, no tenderness/swelling, no clubbing, no cyanosis, no calf tenderness Skin: Reports: warm, dry, intact Neurological: Reports: no new focal deficit Psy/Mental Status: Reports: alert, normal affect, normal mood Discharge Operative/Procedures - Procedures Performed CL Indication: medication administration *Q Meaningful Use (DIS) - VTE *Q VTE Criteria *Q: - Stroke *Q Stroke Criteria *Q: - AMI *Q AMI Criteria *Q:
[2017-03-07] MEDS: guaiFENesin/Dextromethorphan 100-10 MG/5 ML Soln 5 ML Cup PO SCH ×3 (00:13→08:34)
[2017-03-07] MEDS: Acetaminophen/HYDROcodone 325-5 MG Tab PO PRN ×2 (01:38→08:37)
[2017-03-07] MEDS: methylPREDNISolone Sodium Succinate 125 MG/2 ML SDV IVPUSH SCH (04:48)
[2017-03-07] MEDS: Budesonide/Formoterol 80-4.5 MCG/Puff 6.9 GM Inhaler INH SCH (06:28)
[2017-03-07] MEDS: ALPRAZolam 0.5 MG Tab PO PRN (08:17)
--- NOTE | 2017-03-07 08:17 | US ---
Bilateral lower extremity deep venous ultrasound: Duplex and color flow imaging was obtained of the right and left common femoral, proximal greater saphenous, superficial femoral, popliteal, posterior tibial and peroneal veins. Technologist's note: Technically difficult exam due to constant movement of the legs Findings: Normal phasic flow, augmentation and compression are seen. Impression: 1. No findings of deep venous thrombosis seen within the right or left lower extremities. Diagnostic code #1 I agree with preliminary report issued by [facility] ([facility] preliminary report dictated on 03/06/17, 12:03 AM Central Time)
[2017-03-07] MEDS: Sulfamethoxazole/Trimethoprim 800-160 MG Tab PO SCH (08:32)
[2017-03-07] MEDS: Heparin Sodium 5,000 Units/ML Vial SUBCUT SCH (08:33)
[2017-03-07] MEDS: Magnesium Oxide 400 MG Tab PO SCH (08:33)
[2017-03-07] MEDS: Albuterol/Ipratropium 3.0-0.5 MG/3 ML Neb Soln NEB PRN (08:55)
[2017-03-07] MEDS ORDERED: Nystatin Susp 100,000 Unit/ML 5 ML UD Cup PO SCH (09:00)
[2017-03-07] MEDS ORDERED: Fluconazole 100 MG Tab PO ONE (09:00)
[2017-03-07 11:06] VITALS: BP 117/72
== END 2017-03-07 10:53 | disposition home or self-care (01) | DRG 872 ==
LOC: JD.ED 16:20 → JD.ICU 19:30 → JD.MS 03-05 14:51
PROVIDERS: ADMIT Internal Medicine; ATTEND Internal Medicine
DX: A41.9 Sepsis, unspecified organism (principal); I95.9 Hypotension, unspecified; J44.1 Chronic obstructive pulmonary disease with (acute) exacerbation; N17.9 Acute kidney failure, unspecified; J44.9 Chronic obstructive pulmonary disease, unspecified; I10 Essential (primary) hypertension; J90 Pleural effusion, not elsewhere classified; E87.2 Acidosis; B37.0 Candidal stomatitis; R82.71 Bacteriuria; F17.210 Nicotine dependence, cigarettes, uncomplicated; R79.89 Other specified abnormal findings of blood chemistry; R79.1 Abnormal coagulation profile; I27.2 Other secondary pulmonary hypertension; R51 Headache; R53.1 Weakness; F32.9 Major depressive disorder, single episode, unspecified; F41.9 Anxiety disorder, unspecified; F12.90 Cannabis use, unspecified, uncomplicated; Z96.611 Presence of right artificial shoulder joint; Z79.899 Other long term (current) drug therapy; E83.42 Hypomagnesemia; G89.4 Chronic pain syndrome
CPT/HCPCS: 36415; 36556; 36600; 71010 ×2; 80053; 82803; 83605; 83880; 84484; 85025; 85379; 87040 ×2; 93005; 96360; 96365; 96366; 99285; J7040; J7060; 71275; 71275-26; 76770; 76770-26; 80048; 80306; 81001; 83735; 85652; 86140; 87086; 87088; 87186; 93306; 93970; 93970-26; 94640; 94640-76; 94664; 94761; 97116-GP; 97162-GP; 97165-GO; 97530-GO; 97530-GP; 97535-GO; A9270-GY; J1644; J1956; J2543; J2930; J3475; J7030; Q9967

== ENCOUNTER 2017-04-15 09:13 | Inpatient (IN) | payer MEDICAID, SELFPAY ==
[2017-04-15] MEDS ORDERED: methylPREDNISolone Sodium Succinate 125 MG/2 ML SDV IVPUSH ONE (09:23)
[2017-04-15] MEDS ORDERED: Albuterol/Ipratropium 3.0-0.5 MG/3 ML Neb Soln NEB ONE ×2 (09:24→11:00)
[2017-04-15] MEDS: Sodium Chloride 0.9% 10 ML Syringe FLUSH PRN (09:34)
--- NOTE | 2017-04-15 10:25 | EDM.PDOC ---
ED HPI GENERAL MEDICAL PROBLEM - General Chief Complaint: Respiratory Problem Stated Complaint: [facility] Time Seen by Provider: 04/15/17 09:19 Source of Information: Reports: Patient History Limitations: Reports: No Limitations - History of Present Illness INITIAL COMMENTS - FREE TEXT/NARRATIVE: The patient presents with shortness of breath that started last night. She has a history of COPD and she is on 1 to 1.5L by nasal cannula at home. She had to increase her oxygen to 3L. That did not help. She was very short of breath trying to get to her vehicle. She called EMS and her oxygen saturations were 79 %. She was put on a nonrebreather and given albuterol. She says she has been around her grand kids and some of them were sick. She has had a cough but no fever. She has no abdominal pain, nausea or vomiting. She has no chest pain. Onset: Gradual Duration: Day(s): (last night) Severity: Severe Improves with: Reports: None Worsens with: Reports: Movement Context: Reports: Activity Associated Symptoms: Reports: Cough, Shortness of Breath. Denies: Chest Pain, Fever/Chills, Nausea/Vomiting Headache Pain Score (Numeric/FACES): 7 - Related Data Allergies Allergy/AdvReac Type Severity Reaction Status Date / Time No Known Allergies Allergy Verified 04/15/17 09:28 Home Meds: Home Meds Albuterol Sulfate [Albuterol Sulfate HFA] 2 puff INH BID PRN 02/25/14 [History] Budesonide/Formoterol Fumarate [Symbicort 80-4.5 Mcg Inhaler] 10.2 gm IH BID [History] Albuterol/Ipratropium [DuoNeb 3.0-0.5 MG/3 ML] 3 ml INH Q4HR PRN 11/03/14 [ History] Acetaminophen/HYDROcodone [[place] 325-5 MG] 1 tab PO Q6H PRN #15 tablet 03/07/17 [Rx] ALPRAZolam [Xanax] 0.5 mg PO BID PRN 04/15/17 [History] Magnesium Oxide 400 mg PO DAILY 04/15/17 [History] Past Medical History Cardiovascular History: Reports: Hypertension Respiratory History: Reports: COPD Other Respiratory History: end stage COPD, pt is Oxygen dependent Gastrointestinal History: Reports: Colon Polyp Genitourinary History: Reports: Renal Calculus, Urinary Incontinence 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: Musculoskeletal History: Reports: Arthritis Neurological History: Reports: Migraines Psychiatric History: Reports: Anxiety, Depression - Infectious Disease History Infectious Disease History: Reports: Chicken Pox - Past Surgical History Female Surgical History: Reports: D&C, Hysterectomy Musculoskeletal Surgical History: Reports: Shoulder Replacement Social & Family History - Family History Family Medical History: Noncontributory - Tobacco Use Smoking Status *Q: Former Smoker Years of Tobacco use: 15 Packs/Tins Daily: 0.5 Used Tobacco, but Quit: Yes Month Tobacco Last Used: 6 months ago Second Hand Smoke Exposure: No - Caffeine Use Caffeine Use: Reports: Coffee - Alcohol Use Days Per Week of Alcohol Use: 0 Number of Drinks Per Day: 1 Total Drinks Per Week: 0 - Recreational Drug Use Recreational Drug Use: No Drug Use in Last 12 Months: Yes Recreational Drug Type: Reports: Marijuana/Hashish Recreational Drug Use Frequency: Weekly - Living Situation & Occupation Living situation: Reports: Single, with Family (Son) Occupation: Unemployed ED ROS GENERAL - Review of Systems Review Of Systems: See Below Constitutional: Reports: No Symptoms HEENT: Reports: No Symptoms Respiratory: Reports: Shortness of Breath, Wheezing, Cough Cardiovascular: Reports: No Symptoms Endocrine: Reports: No Symptoms GI/Abdominal: Reports: No Symptoms : Reports: No Symptoms Musculoskeletal: Reports: No Symptoms Skin: Reports: No Symptoms Neurological: Reports: No Symptoms ED EXAM, GENERAL - Physical Exam Exam: See Below Exam Limited By: No Limitations General Appearance: Alert, Moderate Distress Ears: Normal External Exam Nose: Normal Inspection Head: Atraumatic, Normocephalic Neck: Normal Inspection Respiratory/Chest: Respiratory Distress (moderate), Decreased Breath Sounds, Wheezing Cardiovascular: No Edema, No Murmur, Tachycardia GI/Abdominal: Soft, Non-Tender, No Organomegaly, No Mass Back Exam: Normal Inspection Extremities: Normal Inspection Neurological: Alert, Oriented, No Motor/Sensory Deficits Course - Vital Signs Last Recorded V/S: Last Vital Signs Temp 97.9 F 04/15/17 09:24 Pulse 116 H 04/15/17 09:24 Resp 22 H 04/15/17 09:24 BP 134/99 H 04/15/17 09:54 Pulse Ox 94 L 04/15/17 11:39 - Orders/Labs/Meds Orders: Active Orders 24 hr Category Date Time Status Cardiac Monitoring [RC] . DIRECTED Care 04/15/17 09:21 Active Oxygen Therapy [RC] PRN Care 04/15/17 09:22 Active Peripheral IV Care [RC] . DIRECTED Care 04/15/17 09:23 Active RT Aerosol Therapy [RC] ASDIRECTED Care 04/15/17 09:24 Active RT Aerosol Therapy [RC] ASDIRECTED Care 04/15/17 11:00 Active Sodium Chloride 0.9% [Saline Flush] Med 04/15/17 09:21 Active 10 ml FLUSH ASDIRECTED PRN Peripheral IV Insertion Adult [OM.PC] Stat Oth 04/15/17 09:21 Ordered Medication Orders Sodium Chloride (Saline Flush) 10 ml FLUSH ASDIRECTED PRN PRN Reason: Keep Vein Open Last Admin: 04/15/17 09:34 Dose: 10 ml Labs: Laboratory Tests 04/15/17 04/15/17 Range/Units 09:50 09:50 WBC 13.53 H (3.98-10.04) K/mm3 RBC 4.80 (3.98-5.22) M/mm3 Hgb 14.1 (11.2-15.7) gm/L Hct 42.4 (34.1-44.9) % MCV 88.3 (79.4-94.8) fl MCH 29.4 (25.6-32.2) pg MCHC 33.3 (32.2-35.5) g/dl RDW Std Deviation 43.2 (36.4-46.3) fL Plt Count 219 (182-369) K/mm3 MPV 10.5 (9.4-12.3) fl Neut % (Auto) 80.3 H (34.0-71.1) % Lymph % (Auto) 10.2 L (19.3-51.7) % [place] % (Auto) 7.5 (4.7-12.5) % Eos % (Auto) 1.8 (0.7-5.8) Baso % (Auto) 0.1 (0.1-1.2) % Neut # (Auto) 10.85 H (1.56-6.13) K/mm3 Lymph # (Auto) 1.38 (1.18-3.74) K/mm3 [place] # (Auto) 1.01 H (0.24-0.36) K/mm3 Eos # (Auto) 0.25 (0.04-0.36) K/mm3 Baso # (Auto) 0.02 (0.01-0.08) K/mm3 Sodium 140 (136-145) mEq/L Potassium 4.5 (3.5-5.1) mEq/L Chloride 103 (98-107) mEq/L Carbon Dioxide 29 (21-32) mEq/L Anion Gap 12.5 (5-15) BUN 9 (7-18) mg/dL Creatinine 0.8 (0.55-1.02) mg/dL Est Cr Clr Drug Dosing 55.96 mL/min Estimated GFR (MDRD) > 60 (>60) mL/min BUN/Creatinine Ratio 11.3 L (14-18) Glucose 128 H (74-106) mg/dL Calcium 9.0 (8.5-10.1) mg/dL Total Bilirubin 0.3 (0.2-1.0) mg/dL AST 23 (15-37) U/L ALT 25 (14-59) U/L Alkaline Phosphatase 79 (46-116) U/L Total Protein 6.9 (6.4-8.2) g/dl Albumin 3.7 (3.4-5.0) g/dl Globulin 3.2 gm/dL Albumin/Globulin Ratio 1.2 (1-2) Meds: Medications Generic Name Dose Route Start Last Admin Trade Name Freq PRN Reason Stop Dose Admin Sodium Chloride 10 ml 04/15/17 09:21 04/15/17 09:34 Saline Flush FLUSH 10 ml ASDIRECTED PRN Administration Keep Vein Open Discontinued Medications Generic Name Dose Route Start Last Admin Trade Name Freq PRN Reason Stop Dose Admin Albuterol/Ipratropium 3 ml 04/15/17 09:24 04/15/17 09:43 Duoneb 3.0-0.5 Mg/3 Ml NEB 04/15/17 09:25 3 ml ONETIME ONE Administration Albuterol/Ipratropium 3 ml 04/15/17 11:00 04/15/17 11:38 Duoneb 3.0-0.5 Mg/3 Ml NEB 04/15/17 11:01 3 ml ONETIME ONE Administration Hydromorphone HCl 1 mg 04/15/17 11:01 04/15/17 11:23 Dilaudid IVPUSH 04/15/17 11:02 1 mg ONETIME ONE Administration Magnesium Sulfate/Dextrose 1 100 mls @ 100 mls/hr 04/15/17 09:24 04/15/17 09: 41 gm/ Premix IV 04/15/17 10:23 100 mls/hr ONETIME ONE Administration Methylprednisolone Sodium Succinate 125 mg 04/15/17 09:23 04/15/17 09:33 Solu-Medrol IVPUSH 04/15/17 09:24 125 mg ONETIME ONE Administration - Re-Assessments/Exams Free Text/Narrative Re-Assessment/Exam: 04/15/17 10:26 I ordered oxygen, solu-medrol 125mg IV, magnesium 1 gram, duoneb, labs, and CXR. 04/15/17 11:49 Her CXR shows COPD but no infiltrates. Her WBC was elevated at 13.53. Her CMP looks good. She is breathing better but not enough to go. I ordered a duoneb again and something for pain. When she went to radiology she was more short of breath again. I feel she needs to be admitted. I called Dr Bernardo and he agreed to the admission. Departure - Departure Time of Disposition: 11:55 Disposition: Admitted As Inpatient 65 Clinical Impression: COPD exacerbation - Discharge Information Forms: ED Department Discharge - My Orders Last 24 Hours: My Active Orders 04/15/17 09:21 Cardiac Monitoring [RC] . DIRECTED Sodium Chloride 0.9% [Saline Flush] 10 ml FLUSH ASDIRECTED PRN Peripheral IV Insertion Adult [OM.PC] Stat 04/15/17 09:22 Oxygen Therapy [RC] PRN 04/15/17 09:23 Peripheral IV Care [RC] . DIRECTED 04/15/17 09:24 RT Aerosol Therapy [RC] ASDIRECTED 04/15/17 11:00 RT Aerosol Therapy [RC] ASDIRECTED - Assessment/Plan Last 24 Hours: My Active Orders 04/15/17 09:21 Cardiac Monitoring [RC] . DIRECTED Sodium Chloride 0.9% [Saline Flush] 10 ml FLUSH ASDIRECTED PRN Peripheral IV Insertion Adult [OM.PC] Stat 04/15/17 09:22 Oxygen Therapy [RC] PRN 04/15/17 09:23 Peripheral IV Care [RC] . DIRECTED 04/15/17 09:24 RT Aerosol Therapy [RC] ASDIRECTED 04/15/17 11:00 RT Aerosol Therapy [RC] ASDIRECTED
--- NOTE | 2017-04-15 10:35 | CR ---
Chest: Two views of the chest were obtained. Comparison: Previous chest x-ray of 03/03/[address] is 03/05/17. Lungs are hyperinflated compatible with emphysematous change. No acute infiltrates are seen. Heart size and mediastinum are normal. Mild degenerative change is seen within the spine. Bony structures are osteopenic. Right shoulder prosthesis is noted. Impression: 1. Diffuse emphysematous change. 2. Other incidental findings. Nothing acute is identified. Diagnostic code #2
[2017-04-15] MEDS ORDERED: HYDROmorphone 1 MG/ML Syringe IVPUSH ONE (11:01)
[2017-04-15] MEDS ORDERED: Acetaminophen/HYDROcodone 325-5 MG Tab PO PRN (12:34)
[2017-04-15] MEDS ORDERED: ALPRAZolam 0.5 MG Tab PO PRN (12:34)
[2017-04-15] MEDS ORDERED: Albuterol 6.7 GM Inhaler INH PRN (12:34)
[2017-04-15] MEDS ORDERED: Albuterol/Ipratropium 3.0-0.5 MG/3 ML Neb Soln INH PRN (12:34)
[2017-04-15] MEDS ORDERED: Morphine 2 MG/ML Syringe IVPUSH PRN (12:35)
[2017-04-15] MEDS ORDERED: Acetaminophen 325 MG Tab PO PRN (12:35)
[2017-04-15] MEDS ORDERED: Ondansetron 4 MG/2 ML SDV IV PRN (12:37)
[2017-04-15] MEDS ORDERED: Bisacodyl 5 MG Tab PO PRN (12:37)
[2017-04-15] MEDS ORDERED: Promethazine 12.5 MG in Sodium Chloride 0.9% 50 ML IV PRN (12:37)
--- NOTE | 2017-04-15 12:42 | PCM.HP ---
H&P History of Present Illness - General Date of Service: 04/15/17 Admit Problem/Dx: COPD Exacerbation Source of Information: Patient, Old Records, Provider, RN Notes Reviewed History Limitations: Reports: Respiratory Distress - History of Present Illness Initial Comments - Free Text/Narative: This is a 41-year-old white female with past medical history of hypertension, chronic respiratory failure-O2 dependent, history of urinary incontinence, osteoarthritis, migraines, anxiety and depression who comes to the emergency department with complains of increasing shortness of breath that started last night. Patient carries a history of advanced COPD. She is known to me from last admission. The patient is currently on 1-1.5 L nasal cannula at home unfortunately she had to increase her oxygen to 3 L to improve her air. Her documented O2 saturation was 79% on presentation to ED. She is compliant with her routine medications. Patient reports sick contact with her grandchildren that might have set off her acute attack. Patient admits to productive cough but no more than usual. She denies any fever or chills. Her initial workup in emergency department shows a CBC remarkable for WBC of 13.5, and neutrophils count of 10.85. Her chemistry is remarkable for glucose of 128. Her chest x-ray shows diffuse emphysematous change. Patient received initial treatment emergency department before she was sent to the floor for further management. She is being admitted for COPD exacerbation. Headache Pain Score (Numeric/FACES): 7 - Related Data Allergies/Adverse Reactions: Allergies Allergy/AdvReac Type Severity Reaction Status Date / Time No Known Allergies Allergy Verified 04/15/17 09:28 Home Medications: Home Meds Albuterol Sulfate [Albuterol Sulfate HFA] 2 puff INH BID PRN 02/25/14 [History] Budesonide/Formoterol Fumarate [Symbicort 80-4.5 Mcg Inhaler] 10.2 gm IH BID [History] Albuterol/Ipratropium [DuoNeb 3.0-0.5 MG/3 ML] 3 ml INH Q4HR PRN 11/03/14 [ History] Acetaminophen/HYDROcodone [[place] 325-5 MG] 1 tab PO Q6H PRN #15 tablet 03/07/17 [Rx] ALPRAZolam [Xanax] 1 mg PO BID PRN 04/15/17 [History] Magnesium Oxide 400 mg PO DAILY 04/15/17 [History] Past Medical History Cardiovascular History: Reports: Hypertension Respiratory History: Reports: COPD Other Respiratory History: end stage COPD, pt is Oxygen dependent Gastrointestinal History: Reports: Colon Polyp Genitourinary History: Reports: Renal Calculus, 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: Musculoskeletal History: Reports: Arthritis Neurological History: Reports: Migraines Psychiatric History: Reports: Anxiety, Depression - Infectious Disease History Infectious Disease History: Reports: Chicken Pox - Past Surgical History Female Surgical History: Reports: D&C, Hysterectomy Musculoskeletal Surgical History: Reports: Shoulder Replacement Social & Family History - Family History Family Medical History: Noncontributory - Tobacco Use Smoking Status *Q: Former Smoker Years of Tobacco use: 15 Packs/Tins Daily: 0.5 Used Tobacco, but Quit: Yes Month Tobacco Last Used: 6 months ago Second Hand Smoke Exposure: No - Caffeine Use Caffeine Use: Reports: Coffee - Alcohol Use Days Per Week of Alcohol Use: 0 Number of Drinks Per Day: 1 Total Drinks Per Week: 0 - Recreational Drug Use Recreational Drug Use: No Drug Use in Last 12 Months: Yes Recreational Drug Type: Reports: Marijuana/Hashish Recreational Drug Use Frequency: Weekly - Living Situation & Occupation Living situation: Reports: Single, with Family (Son) Occupation: Unemployed H&P Review of Systems - Review of Systems: Review Of Systems: See Below General: Reports: Fatigue. Denies: Fever, Chills, Malaise, Weakness HEENT: Reports: No Symptoms Pulmonary: Reports: Shortness of Breath, Cough, Sputum. Denies: Pleuritic Chest Pain Cardiovascular: Reports: Dyspnea on Exertion. Denies: Chest Pain, Palpitations , Edema, Lightheadedness Gastrointestinal: Denies: Abdominal Pain, Melena, Nausea Genitourinary: Reports: No Symptoms Musculoskeletal: Reports: No Symptoms Skin: Denies: Cyanosis, Pallor Psychiatric: Denies: Confusion, Depression, Anxiety, Hallucinations Neurological: Reports: Headache. Denies: Confusion, Difficulty Walking, Weakness, Gait Disturbance Hematologic/Lymphatic: Reports: No Symptoms Immunologic: Reports: No Symptoms Exam - Exam Exam: See Below - Vital Signs Vital Signs: Last Vital Signs Temp 36.6 C 04/15/17 09:24 Pulse 116 H 04/15/17 09:24 Resp 22 H 04/15/17 09:24 BP 134/99 H 04/15/17 09:54 Pulse Ox 94 L 04/15/17 11:39 Weight: 43.091 kg - Exam Quality Assessment: Supplemental Oxygen General: Alert, Oriented, Cooperative, Mild Distress, Other (cachectic) HEENT: Conjunctiva Clear, EACs Clear, EOMI, Hearing Intact, Mucosa Moist & [place] , Nares Patent, Normal Nasal Septum, Posterior Pharynx Clear, Pupils Equal, Pupils Reactive, TMs Clear Neck: Supple, Trachea Midline, Other (mild use of accessory muscles ) Lungs: Normal Respiratory Effort, Decreased Breath Sounds Cardiovascular: Regular Rate, Regular Rhythm Abdomen: Normal Bowel Sounds, Soft. No: Organomegaly, Tenderness (Female) Exam: Deferred Rectal (Female) Exam: Deferred Back Exam: Normal Inspection, Decreased Range of Motion Extremities: Normal Inspection, Normal Pulses Peripheral Pulses: 2+: Posterior Tibial (L), Posterior Tibial (R), Dorsalis Pedis (L), Dorsalis Pedis (R) Skin: Warm, Dry, Intact Neuro Extensive - Mental Status: Oriented x3, Normal Cognition, Memory Intact Neuro Extensive - Motor, Sensory, Reflexes: CN II-XII Intact, Normal Gait Psychiatric: Alert, Normal Affect, Normal Mood - Patient Data Result Diagrams: 04/15/17 09:50 04/15/17 09:50 *Q Meaningful Use (ADM) - VTE *Q VTE Criteria *Q: - Stroke *Q Stroke Criteria *Q: - AMI *Q AMI Criteria *Q: Problem List Initiated/Reviewed/Updated: Yes Orders Last 24hrs: Medication Orders Sodium Chloride (Saline Flush) 10 ml FLUSH ASDIRECTED PRN PRN Reason: Keep Vein Open Last Admin: 04/15/17 09:34 Dose: 10 ml Assessment/Plan Comment:: Assessment/Plan: Acute: COPD Exacerbation - She has Advanced COPD - IV Solumedrol, Bronchodilators, IV Magnesium (then resume oral magnesium), and Supplemental O2 - Routine RT care Acute on Chronic Respiratory Failure - 2/2 Above - Currently on 3L NC from 1.5 - Treat underlying cause Chronic: HTN Pulmonary Arterial Hypertension Urinary Incontinence OA Migraines Anxiety and Depression Cachexia/Malnutrition Chronic Pain Syndrome Plan: Admit to Med-Surge Routine AM Labs Resume Home Meds PT/OT/RT consult Dietary Consult CM/SW for d/c planning Code status: 1
[2017-04-15] MEDS ORDERED: Azithromycin 250 MG in Sodium Chloride 0.9% 250 ML IV SCH (12:45)
[2017-04-15] MEDS: ALPRAZolam 1 MG Tab PO PRN ×2 (14:31→21:26)
[2017-04-15] MEDS: Azithromycin 250 MG in Sodium Chloride 0.9% 250 ML IV SCH (14:31)
[2017-04-15] MEDS: Acetaminophen/HYDROcodone 325-5 MG Tab PO PRN ×2 (14:31→21:25)
[2017-04-15] MEDS: Albuterol/Ipratropium 3.0-0.5 MG/3 ML Neb Soln NEB PRN (15:18)
[2017-04-15] MEDS: methylPREDNISolone Sodium Succinate 125 MG/2 ML SDV IVPUSH SCH ×2 (16:58→23:53)
[2017-04-15] MEDS: Acetaminophen/Butalbital/Caffeine 325-50-40 MG Tab PO PRN (20:18)
[2017-04-15] MEDS: Budesonide/Formoterol 80-4.5 MCG/Puff 6.9 GM Inhaler INH SCH (21:02)
[2017-04-15] MEDS: Morphine 4 MG/ML Syringe IVPUSH PRN (22:12)
[2017-04-15] MEDS ORDERED: LORazepam 2 MG/ML MDV IVPUSH PRN (23:28)
[2017-04-16] MEDS: Temazepam 15 MG Cap PO PRN (00:02)
[2017-04-16] MEDS: Morphine 4 MG/ML Syringe IVPUSH PRN ×5 (02:36→20:25)
[2017-04-16] MEDS: Acetaminophen/HYDROcodone 325-5 MG Tab PO PRN ×5 (02:43→21:55)
[2017-04-16] MEDS: Albuterol/Ipratropium 3.0-0.5 MG/3 ML Neb Soln NEB PRN (06:20)
[2017-04-16] MEDS ORDERED: Magnesium Oxide 400 MG Tab PO ONE (08:30)
[2017-04-16] MEDS: methylPREDNISolone Sodium Succinate 125 MG/2 ML SDV IVPUSH SCH ×2 (09:10→17:19)
[2017-04-16] MEDS: ALPRAZolam 1 MG Tab PO PRN ×2 (09:11→21:54)
[2017-04-16] MEDS: Budesonide/Formoterol 80-4.5 MCG/Puff 6.9 GM Inhaler INH SCH ×2 (09:30→20:53)
[2017-04-16] MEDS: Magnesium Oxide 400 MG Tab PO SCH (11:23)
--- NOTE | 2017-04-16 11:40 | PCM.PN ---
- General Info Date of Service: 04/16/17 Functional Status: Reports: pain controlled (minor), tolerating diet, ambulating (SOB) - Review of Systems General: Reports: No Symptoms HEENT: Reports: no symptoms Pulmonary: Reports: shortness of breath Cardiovascular: Reports: No Symptoms Gastrointestinal: Reports: No symptoms Genitourinary: Reports: no symptoms Musculoskeletal: Reports: no symptoms Skin: Reports: no symptoms Neurological: Reports: No Symptoms Psychiatric: Reports: no symptoms - Patient Data Vitals - most recent: Last Vital Signs Temp 36.9 C 04/16/17 07:50 Pulse 108 H 04/16/17 07:50 Resp 20 04/16/17 07:50 BP 136/92 H 04/16/17 07:50 Pulse Ox 94 L 04/16/17 09:31 Weight - most recent: 43.091 kg I&O - last 24 hours: Intake & Output 04/15/17 04/16/17 04/16/17 22:59 06:59 14:59 Intake Total 250 350 Output Total 800 Balance 250 -450 Lab Results last 24 hrs: Laboratory Results - last 24 hr 04/16/17 04/16/17 Range/Units 05:14 05:14 WBC 6.64 (3.98-10.04) K/mm3 RBC 4.68 (3.98-5.22) M/mm3 Hgb 13.8 (11.2-15.7) gm/L Hct 40.7 (34.1-44.9) % MCV 87.0 (79.4-94.8) fl MCH 29.5 (25.6-32.2) pg MCHC 33.9 (32.2-35.5) g/dl RDW Std Deviation 40.6 (36.4-46.3) fL Plt Count 237 (182-369) K/mm3 MPV 11.1 (9.4-12.3) fl Neut % (Auto) 91.6 H (34.0-71.1) % Lymph % (Auto) 6.5 L (19.3-51.7) % [place] % (Auto) 1.7 L (4.7-12.5) % Eos % (Auto) 0 L (0.7-5.8) Baso % (Auto) 0.0 L (0.1-1.2) % Neut # (Auto) 6.09 (1.56-6.13) K/mm3 Lymph # (Auto) 0.43 L (1.18-3.74) K/mm3 [place] # (Auto) 0.11 L (0.24-0.36) K/mm3 Eos # (Auto) 0.00 L (0.04-0.36) K/mm3 Baso # (Auto) 0.00 L (0.01-0.08) K/mm3 Manual Slide Review Abnormal smear Sodium 138 (136-145) mEq/L Potassium 4.5 (3.5-5.1) mEq/L Chloride 101 (98-107) mEq/L Carbon Dioxide 31 (21-32) mEq/L Anion Gap 10.5 (5-15) BUN 16 (7-18) mg/dL Creatinine 0.9 (0.55-1.02) mg/dL Est Cr Clr Drug Dosing 49.74 mL/min Estimated GFR (MDRD) > 60 (>60) mL/min BUN/Creatinine Ratio 17.8 (14-18) Glucose 166 H (74-106) mg/dL Calcium 9.0 (8.5-10.1) mg/dL Magnesium 1.8 (1.8-2.4) mg/dl Med Orders - Current: Current Medications Acetaminophen (Tylenol) 650 mg PO Q4H PRN PRN Reason: Pain (Mild 1-3)/fever Acetaminophen/Butalbital/Caffeine (Fioricet 325-50-40 Mg) 2 tab PO Q6H PRN PRN Reason: migraines Last Admin: 04/15/17 20:18 Dose: 2 tab Hydrocodone Bitart/Acetaminophen ([place] 325-5 Mg) 1 tab PO Q4H PRN PRN Reason: Pain (moderate 4-6) Last Admin: 04/16/17 09:09 Dose: 1 tab Albuterol (Proventil Hfa) 0 gm INH BID PRN PRN Reason: Dyspnea Albuterol/Ipratropium (Duoneb 3.0-0.5 Mg/3 Ml) 3 ml NEB Q4H PRN PRN Reason: Shortness Of Breath/wheezing Last Admin: 04/16/17 06:20 Dose: 3 ml Alprazolam (Xanax) 1 mg PO BID PRN PRN Reason: Anxiety Last Admin: 04/16/17 09:11 Dose: 1 mg Bisacodyl (Dulcolax) 5 mg PO DAILY PRN PRN Reason: Constipation Budesonide/Formoterol Fumarate (Symbicort 80-4.5 Mcg) 0 gm INH BID [facility] Last Admin: 04/16/17 09:30 Dose: 1 puff Hydralazine HCl (Apresoline) 20 mg IVPUSH Q4H PRN PRN Reason: Hypertension Promethazine HCl 12.5 mg/ (Sodium Chloride) 50.5 mls @ 100 mls/hr IV Q6H PRN PRN Reason: Nausea/Vomiting Azithromycin 250 mg/ Sodium (Chloride) 250 mls @ 250 mls/hr IV Q24H [facility] Last Admin: 04/15/17 14:31 Dose: 250 mls/hr Lorazepam (Ativan) 1 mg IVPUSH Q4H PRN PRN Reason: anxiety and SOB Magnesium Oxide (Magnesium Oxide) 400 mg PO DAILY [facility] Last Admin: 04/16/17 11:23 Dose: 400 mg Magnesium Sulfate (Pharmacy To Dose - Magnesium Replacement) 1 dose .XX ASDIRECTED [facility] Methylprednisolone Sodium Succinate (Solu-Medrol) 125 mg IVPUSH Q8H [facility] Last Admin: 04/16/17 09:10 Dose: 125 mg Metoprolol Tartrate (Lopressor) 5 mg IVPUSH Q4H PRN PRN Reason: Tachycardia Morphine Sulfate (Morphine) 3 mg IVPUSH Q4H PRN PRN Reason: Other Stop: 04/18/17 12:36 Last Admin: 04/16/17 10:44 Dose: 3 mg Ondansetron HCl (Zofran) 4 mg IV Q6H PRN PRN Reason: Nausea/Vomiting Polyethylene Glycol (Miralax) 17 gm PO DAILY PRN PRN Reason: Constipation Potassium Chloride (Pharmacy To Dose - Potassium Replacement) 1 dose .XX ASDIRECTED [facility] Senna/Docusate Sodium (Senna Plus) 1 tab PO BID PRN PRN Reason: Constipation Sodium Chloride (Saline Flush) 10 ml FLUSH ASDIRECTED PRN PRN Reason: Keep Vein Open Last Admin: 04/15/17 09:34 Dose: 10 ml Temazepam (Restoril) 15 mg PO BEDTIME PRN PRN Reason: Sleep Last Admin: 04/16/17 00:02 Dose: 15 mg Discontinued Medications Hydrocodone Bitart/Acetaminophen ([place] 325-5 Mg) 1 tab PO Q6H PRN PRN Reason: Pain Albuterol/Ipratropium (Duoneb 3.0-0.5 Mg/3 Ml) 3 ml NEB ONETIME ONE Stop: 04/15/17 09:25 Last Admin: 04/15/17 09:43 Dose: 3 ml Albuterol/Ipratropium (Duoneb 3.0-0.5 Mg/3 Ml) 3 ml NEB ONETIME ONE Stop: 04/15/17 11:01 Last Admin: 04/15/17 11:38 Dose: 3 ml Albuterol/Ipratropium (Duoneb 3.0-0.5 Mg/3 Ml) 3 ml INH Q4HR PRN PRN Reason: Shortness of Breath Alprazolam (Xanax) 0.5 mg PO BID PRN PRN Reason: Anxiety Hydromorphone HCl (Dilaudid) 1 mg IVPUSH ONETIME ONE Stop: 04/15/17 11:02 Last Admin: 04/15/17 11:23 Dose: 1 mg Magnesium Sulfate/Dextrose 1 (gm/ Premix) 100 mls @ 100 mls/hr IV ONETIME ONE Stop: 04/15/17 10:23 Last Admin: 04/15/17 09:41 Dose: 100 mls/hr Azithromycin 250 mg/ Sodium (Chloride) 250 mls @ 250 mls/hr IV Q24H [facility] Last Admin: 04/15/17 14:55 Dose: Not Given Magnesium Oxide (Magnesium Oxide) 400 mg PO ONETIME ONE Stop: 04/16/17 08:31 Last Admin: 04/16/17 09:09 Dose: 400 mg Methylprednisolone Sodium Succinate (Solu-Medrol) 125 mg IVPUSH ONETIME ONE Stop: 04/15/17 09:24 Last Admin: 04/15/17 09:33 Dose: 125 mg Morphine Sulfate (Morphine) 1 mg IVPUSH Q4H PRN PRN Reason: Other Stop: 04/18/17 12:36 Last Admin: 04/15/17 20:16 Dose: 1 mg - Exam Quality Assessment: supplemental oxygen, DVT prophylaxis General: alert, oriented, cooperative, no acute distress HEENT: Pupils equal, Pupils reactive, EOMI, Mucous membr. moist/pink Neck: supple, trachea midline Lungs: Clear to auscultation, Decreased breath sounds, Crackles Cardiovascular: Regular Rate, Regular Rhythm Abdomen: bowel sounds present, soft, no tenderness, no distension (Female) Exam: Deferred Back Exam: Normal Inspection Extremities: no edema, normal pulses Skin: warm Neurological: no new focal deficit, normal speech Psy/Mental Status: alert, depressed - Problem List Review Problem List Initiated/Reviewed/Updated: Yes - Plan Plan:: Assessment/Plan: Acute: COPD Exacerbation - She has Advanced COPD - IV Solumedrol, Bronchodilators, IV Magnesium (then resume oral magnesium), and Supplemental O2 - Routine RT care Acute on Chronic Respiratory Failure - 2/2 Above - Currently on 3L NC from 1.5; extreme desaturation with exertion - Treat underlying cause Chronic: HTN Pulmonary Arterial Hypertension--->will need [facility] referral Urinary Incontinence OA Migraines Anxiety and Depression Cachexia/Malnutrition Chronic Pain Syndrome Plan: Admit to Med-Surge Routine AM Labs Resume Home Meds PT/OT/RT consult Dietary Consult CM/SW for d/c planning Code status: 1 LOS>96 hours, slow response to therapy
[2017-04-16] MEDS: Azithromycin 250 MG in Sodium Chloride 0.9% 250 ML IV SCH (14:56)
[2017-04-16] MEDS: Acetaminophen/Butalbital/Caffeine 325-50-40 MG Tab PO PRN (18:47)
[2017-04-16] MEDS ORDERED: Magnesium Sulfate/Water 2 GM in Premix Bag 1 BAG IV ONE (18:47)
[2017-04-16] MEDS ORDERED: Albuterol 0.083% 2.5 MG/3 ML Neb Soln NEB PRN (18:49)
[2017-04-16] MEDS: Albuterol/Ipratropium 3.0-0.5 MG/3 ML Neb Soln NEB SCH ×2 (19:48→20:52)
[2017-04-16] MEDS ORDERED: Pneumococcal Polyvalent-23 Vaccine 0.5 ML SDV IM ONE (19:51)
[2017-04-17] MEDS: methylPREDNISolone Sodium Succinate 125 MG/2 ML SDV IVPUSH SCH ×4 (00:18→18:19)
[2017-04-17] MEDS: Morphine 4 MG/ML Syringe IVPUSH PRN ×6 (00:18→19:46)
[2017-04-17] MEDS: Acetaminophen/HYDROcodone 325-5 MG Tab PO PRN ×4 (04:57→20:58)
[2017-04-17] MEDS: Albuterol/Ipratropium 3.0-0.5 MG/3 ML Neb Soln NEB SCH ×4 (06:58→21:56)
[2017-04-17] MEDS: Magnesium Oxide 400 MG Tab PO SCH (08:27)
[2017-04-17] MEDS: ALPRAZolam 1 MG Tab PO PRN ×2 (08:28→18:18)
[2017-04-17] MEDS: Budesonide/Formoterol 80-4.5 MCG/Puff 6.9 GM Inhaler INH SCH ×2 (10:12→21:19)
[2017-04-17] MEDS: hydrALAZINE 20 MG/ML SDV IVPUSH PRN ×2 (10:56→15:54)
[2017-04-17] MEDS ORDERED: Levofloxacin/Dextrose 5%-Water 750 MG in Premix Bag 1 BAG IV SCH (11:00)
[2017-04-17] MEDS ORDERED: fentaNYL 12 MCG/HR Transdermal Patch TRDERM SCH (12:00)
[2017-04-17] MEDS ORDERED: Acetaminophen/Butalbital/Caffeine 325-50-40 MG Tab PO PRN (12:05)
[2017-04-17] MEDS: Codeine/Promethazine 10-6.25 MG/5 ML Syrup 5 ML UD Cup PO PRN ×2 (12:23→18:19)
[2017-04-17] MEDS: Polyethylene Glycol 3350 Powder 17 GM Packet PO PRN (12:25)
[2017-04-17] MEDS: Nystatin Susp 100,000 Unit/ML 5 ML UD Cup PO SCH ×3 (12:30→20:58)
[2017-04-17] MEDS: Temazepam 15 MG Cap PO PRN (21:39)
[2017-04-18] MEDS: methylPREDNISolone Sodium Succinate 125 MG/2 ML SDV IVPUSH SCH ×4 (00:08→18:11)
[2017-04-18] MEDS: Morphine 4 MG/ML Syringe IVPUSH PRN ×3 (00:10→08:54)
[2017-04-18] MEDS: Acetaminophen/HYDROcodone 325-5 MG Tab PO PRN ×3 (04:11→16:30)
[2017-04-18] MEDS: Albuterol/Ipratropium 3.0-0.5 MG/3 ML Neb Soln NEB SCH ×4 (06:37→20:04)
[2017-04-18] MEDS: Nystatin Susp 100,000 Unit/ML 5 ML UD Cup PO SCH ×5 (08:44→20:48)
[2017-04-18] MEDS: Magnesium Oxide 400 MG Tab PO SCH (08:44)
[2017-04-18] MEDS: ALPRAZolam 1 MG Tab PO PRN (08:55)
[2017-04-18] MEDS: Budesonide/Formoterol 80-4.5 MCG/Puff 6.9 GM Inhaler INH SCH ×2 (10:01→20:06)
--- NOTE | 2017-04-18 11:36 | PCM.PN ---
- General Info Date of Service: 04/18/17 Functional Status: Reports: pain controlled (query pain requirements), tolerating diet, urinating - Review of Systems General: Reports: No Symptoms HEENT: Reports: no symptoms Pulmonary: Reports: shortness of breath, pleuritic chest pain (decreased) Cardiovascular: Reports: No Symptoms Gastrointestinal: Reports: No symptoms Genitourinary: Reports: no symptoms Musculoskeletal: Reports: no symptoms Skin: Reports: no symptoms Neurological: Reports: No Symptoms Psychiatric: Reports: no symptoms - Patient Data Vitals - most recent: Last Vital Signs Temp 37.5 C 04/18/17 08:14 Pulse 106 H 04/18/17 08:14 Resp 22 H 04/18/17 08:14 BP 120/92 H 04/18/17 08:14 Pulse Ox 94 L 04/18/17 10:02 Weight - most recent: 45.541 kg I&O - last 24 hours: Intake & Output 04/17/17 04/18/17 04/18/17 22:59 06:59 14:59 Intake Total 1050 400 0 Output Total 675 1300 Balance 375 -900 0 Lab Results last 24 hrs: Laboratory Results - last 24 hr 04/18/17 Range/Units 05:55 C-Reactive Protein < 0.2 (<1.0) mg/dL Med Orders - Current: Current Medications Acetaminophen (Tylenol) 650 mg PO Q4H PRN PRN Reason: Pain (Mild 1-3)/fever Last Admin: 04/18/17 08:54 Dose: 650 mg Acetaminophen/Butalbital/Caffeine (Fioricet 325-50-40 Mg) 1 tab PO Q8H PRN PRN Reason: migraines Hydrocodone Bitart/Acetaminophen ([place] 325-5 Mg) 1 tab PO Q6H PRN PRN Reason: Pain (moderate 4-6) Last Admin: 04/18/17 10:20 Dose: 1 tab Albuterol (Proventil Neb Soln) 2.5 mg NEB Q4HRRT PRN PRN Reason: Shortness of Breath Last Admin: 04/17/17 11:59 Dose: 2.5 mg Albuterol/Ipratropium (Duoneb 3.0-0.5 Mg/3 Ml) 3 ml NEB QIDRT [facility] Last Admin: 04/18/17 10:00 Dose: Not Given Alprazolam (Xanax) 0.5 mg PO BID PRN PRN Reason: Anxiety Last Admin: 04/18/17 08:55 Dose: 0.5 mg Bisacodyl (Dulcolax) 5 mg PO DAILY PRN PRN Reason: Constipation Budesonide/Formoterol Fumarate (Symbicort 80-4.5 Mcg) 0 gm INH BID [facility] Last Admin: 04/18/17 10:01 Dose: 1 puff Fentanyl (Duragesic) 12 mcg TRDERM Q72H [facility] Last Admin: 04/17/17 12:30 Dose: 12 mcg Hydralazine HCl (Apresoline) 20 mg IVPUSH Q4H PRN PRN Reason: Hypertension Last Admin: 04/17/17 15:54 Dose: 20 mg Levofloxacin/Dextrose 750 mg/ (Premix) 150 mls @ 100 mls/hr IV Q48H [facility] Magnesium Oxide (Magnesium Oxide) 400 mg PO DAILY [facility] Last Admin: 04/18/17 08:44 Dose: 400 mg Methylprednisolone Sodium Succinate (Solu-Medrol) 125 mg IVPUSH Q6H [facility] Last Admin: 04/18/17 06:22 Dose: 125 mg Metoprolol Tartrate (Lopressor) 5 mg IVPUSH Q4H PRN PRN Reason: Tachycardia Miscellaneous Information (Remove Patch) 1 ea TRDERM Q72H [facility] Morphine Sulfate (Morphine) 3 mg IVPUSH Q4H PRN PRN Reason: Other Stop: 04/18/17 12:36 Last Admin: 04/18/17 08:54 Dose: 3 mg Nystatin (Mycostatin) 5 ml PO QID [facility] Last Admin: 04/18/17 08:44 Dose: 5 ml Ondansetron HCl (Zofran) 4 mg IV Q6H PRN PRN Reason: Nausea/Vomiting Polyethylene Glycol (Miralax) 17 gm PO DAILY PRN PRN Reason: Constipation Last Admin: 04/17/17 12:25 Dose: 17 gm Promethazine HCl/Codeine (Phenergan With Codeine) 10 ml PO Q6HR [facility] Senna/Docusate Sodium (Senna Plus) 1 tab PO BID PRN PRN Reason: Constipation Sodium Chloride (Saline Flush) 10 ml FLUSH ASDIRECTED PRN PRN Reason: Keep Vein Open Last Admin: 04/15/17 09:34 Dose: 10 ml Temazepam (Restoril) 15 mg PO BEDTIME PRN PRN Reason: Sleep Last Admin: 04/17/17 21:39 Dose: 15 mg Discontinued Medications Acetaminophen/Butalbital/Caffeine (Fioricet 325-50-40 Mg) 2 tab PO Q6H PRN PRN Reason: migraines Last Admin: 04/16/17 18:47 Dose: 2 tab Hydrocodone Bitart/Acetaminophen ([place] 325-5 Mg) 1 tab PO Q6H PRN PRN Reason: Pain Hydrocodone Bitart/Acetaminophen ([place] 325-5 Mg) 1 tab PO Q4H PRN PRN Reason: Pain (moderate 4-6) Last Admin: 04/17/17 08:28 Dose: 1 tab Albuterol (Proventil Hfa) 0 gm INH BID PRN PRN Reason: Dyspnea Albuterol/Ipratropium (Duoneb 3.0-0.5 Mg/3 Ml) 3 ml NEB ONETIME ONE Stop: 04/15/17 09:25 Last Admin: 04/15/17 09:43 Dose: 3 ml Albuterol/Ipratropium (Duoneb 3.0-0.5 Mg/3 Ml) 3 ml NEB ONETIME ONE Stop: 04/15/17 11:01 Last Admin: 04/15/17 11:38 Dose: 3 ml Albuterol/Ipratropium (Duoneb 3.0-0.5 Mg/3 Ml) 3 ml INH Q4HR PRN PRN Reason: Shortness of Breath Albuterol/Ipratropium (Duoneb 3.0-0.5 Mg/3 Ml) 3 ml NEB Q4H PRN PRN Reason: Shortness Of Breath/wheezing Last Admin: 04/16/17 06:20 Dose: 3 ml Alprazolam (Xanax) 0.5 mg PO BID PRN PRN Reason: Anxiety Alprazolam (Xanax) 1 mg PO BID PRN PRN Reason: Anxiety Last Admin: 04/17/17 08:28 Dose: 1 mg Hydromorphone HCl (Dilaudid) 1 mg IVPUSH ONETIME ONE Stop: 04/15/17 11:02 Last Admin: 04/15/17 11:23 Dose: 1 mg Magnesium Sulfate/Dextrose 1 (gm/ Premix) 100 mls @ 100 mls/hr IV ONETIME ONE Stop: 04/15/17 10:23 Last Admin: 04/15/17 09:41 Dose: 100 mls/hr Azithromycin 250 mg/ Sodium (Chloride) 250 mls @ 250 mls/hr IV Q24H [facility] Last Admin: 04/15/17 14:55 Dose: Not Given Promethazine HCl 12.5 mg/ (Sodium Chloride) 50.5 mls @ 100 mls/hr IV Q6H PRN PRN Reason: Nausea/Vomiting Azithromycin 250 mg/ Sodium (Chloride) 250 mls @ 250 mls/hr IV Q24H [facility] Last Admin: 04/16/17 14:56 Dose: 250 mls/hr Magnesium Sulfate 2 gm/ Premix 50 mls @ 25 mls/hr IV ONETIME ONE Stop: 04/16/17 20:46 Last Admin: 04/16/17 21:59 Dose: 25 mls/hr Levofloxacin/Dextrose 750 mg/ (Premix) 150 mls @ 100 mls/hr IV Q24H [facility] Last Admin: 04/17/17 10:57 Dose: 100 mls/hr Lorazepam (Ativan) 1 mg IVPUSH Q4H PRN PRN Reason: anxiety and SOB Magnesium Oxide (Magnesium Oxide) 400 mg PO ONETIME ONE Stop: 04/16/17 08:31 Last Admin: 04/16/17 09:09 Dose: 400 mg Magnesium Sulfate (Pharmacy To Dose - Magnesium Replacement) 1 dose .XX ASDIRECTED [facility] Methylprednisolone Sodium Succinate (Solu-Medrol) 125 mg IVPUSH ONETIME ONE Stop: 04/15/17 09:24 Last Admin: 04/15/17 09:33 Dose: 125 mg Methylprednisolone Sodium Succinate (Solu-Medrol) 125 mg IVPUSH Q8H [facility] Last Admin: 04/17/17 08:27 Dose: 125 mg Morphine Sulfate (Morphine) 1 mg IVPUSH Q4H PRN PRN Reason: Other Stop: 04/18/17 12:36 Last Admin: 04/15/17 20:16 Dose: 1 mg Pneumococcal Polyvalent Vaccine (Pneumovax 23) 0.5 ml IM .ONCE ONE Stop: 04/16/17 19:52 Potassium Chloride (Pharmacy To Dose - Potassium Replacement) 1 dose .XX ASDIRECTED [facility] Promethazine HCl/Codeine (Phenergan With Codeine) 10 ml PO Q6HR PRN PRN Reason: COUGH/Pain (moderate 4-6) Last Admin: 04/17/17 18:19 Dose: 10 ml - Exam Quality Assessment: supplemental oxygen, DVT prophylaxis General: alert, oriented, cooperative, no acute distress HEENT: Pupils equal, Pupils reactive, EOMI Neck: supple, trachea midline, no JVD Lungs: Normal respiratory effort, Decreased breath sounds, Rhonchi, Wheezing Cardiovascular: Regular Rate, Regular Rhythm Abdomen: bowel sounds present, soft, no tenderness, no distension (Female) Exam: Deferred Back Exam: Normal Inspection Extremities: normal pulses Skin: warm Neurological: no new focal deficit Psy/Mental Status: alert, normal affect, normal mood - Problem List Review Problem List Initiated/Reviewed/Updated: Yes - My Orders Last 24 Hours: My Active Orders 04/17/17 12:00 fentaNYL [Duragesic] 12 mcg TRDERM Q72H 04/17/17 12:05 ALPRAZolam [Xanax] 0.5 mg PO BID PRN Acetaminophen/Butalbital/Caff [Fioricet 325-50-40 MG] 1 tab PO Q8H PRN Acetaminophen/HYDROcodone [[place] 325-5 MG] 1 tab PO Q6H PRN 04/17/17 13:00 Nystatin [Mycostatin] 5 ml PO QID methylPREDNISolone Sod Succ [Solu-MEDROL] 125 mg IVPUSH Q6H 04/18/17 10:00 CXR [Chest 2V] [CR] Routine 04/18/17 12:00 Codeine/Promethazine [Phenergan with Codeine] 10 ml PO Q6HR 04/19/17 05:00 CRP [C-REACTIVE PROTEIN] [CHEM] DAILY 04/19/17 11:00 Levofloxacin/Dextrose 5%-Water [Levaquin in D5W 750 MG/150 ML] 750 mg Premix Bag 1 bag IV Q48H 04/20/17 05:00 CRP [C-REACTIVE PROTEIN] [CHEM] DAILY 04/20/17 12:00 Remove Patch 1 ea TRDERM Q72H 04/21/17 05:00 CRP [C-REACTIVE PROTEIN] [CHEM] DAILY - Plan Plan:: Assessment/Plan: Acute: COPD Exacerbation - She has Advanced COPD - IV Solumedrol, Bronchodilators, IV Magnesium (then resume oral magnesium), and Supplemental O2 - Routine RT care Acute on Chronic Respiratory Failure - 2/2 Above - Currently on 3L NC from 1.5; extreme desaturation with exertion - Treat underlying cause Chronic: HTN Pulmonary Arterial Hypertension--->will need [facility] referral Urinary Incontinence OA Migraines Anxiety and Depression Cachexia/Malnutrition Chronic Pain Syndrome-->narcotics requested, verify home meds before DC Plan: Admit to Med-Surge Routine AM Labs Resume Home Meds PT/OT/RT consult Dietary Consult CM/SW for d/c planning Code status: 1 LOS>96 hours, slow response to therapy
--- NOTE | 2017-04-18 11:37 | CR ---
Chest: 2 views of the chest were obtained. Comparison: Previous chest x-ray of 04/15/17. Heart size and mediastinum are within normal limits. Lungs are hyperinflated compatible with emphysematous change. No acute infiltrates are appreciated. Right shoulder prosthesis is seen. Bony structures are osteopenic. Mild degenerative change is scattered within the spine. Impression: 1. Emphysematous change. 2. Other stable findings. Nothing acute is appreciated. Diagnostic code #2
[2017-04-18] MEDS: Codeine/Promethazine 10-6.25 MG/5 ML Syrup 5 ML UD Cup PO SCH ×4 (11:52→23:48)
[2017-04-18] MEDS ORDERED: ALPRAZolam 1 MG Tab PO PRN (12:22)
[2017-04-18] MEDS ORDERED: Morphine 4 MG/ML Syringe IVPUSH ONE (12:50)
[2017-04-18] MEDS: Morphine 15 MG Tab PO PRN ×2 (17:36→23:50)
[2017-04-18] MEDS: ALPRAZolam 1 MG Tab PO SCH (21:18)
[2017-04-19] MEDS: methylPREDNISolone Sodium Succinate 125 MG/2 ML SDV IVPUSH SCH ×2 (00:01→06:14)
[2017-04-19] MEDS: Acetaminophen/HYDROcodone 325-5 MG Tab PO PRN ×3 (04:40→17:39)
[2017-04-19] MEDS: Codeine/Promethazine 10-6.25 MG/5 ML Syrup 5 ML UD Cup PO SCH ×3 (06:14→17:40)
[2017-04-19] MEDS: Morphine 15 MG Tab PO PRN (06:14)
[2017-04-19] MEDS: Albuterol/Ipratropium 3.0-0.5 MG/3 ML Neb Soln NEB SCH ×5 (06:23→20:39)
[2017-04-19] MEDS: Polyethylene Glycol 3350 Powder 17 GM Packet PO PRN (06:51)
[2017-04-19] MEDS: Budesonide/Formoterol 80-4.5 MCG/Puff 6.9 GM Inhaler INH SCH ×2 (08:49→20:39)
[2017-04-19] MEDS: ALPRAZolam 1 MG Tab PO SCH (08:59)
[2017-04-19] MEDS: Nystatin Susp 100,000 Unit/ML 5 ML UD Cup PO SCH (08:59)
[2017-04-19] MEDS: Magnesium Oxide 400 MG Tab PO SCH (08:59)
[2017-04-19] MEDS: hydrALAZINE 20 MG/ML SDV IVPUSH PRN (09:09)
[2017-04-19] MEDS ORDERED: Morphine 15 MG Tab PO PRN (09:57)
[2017-04-19] MEDS ORDERED: Levofloxacin/Dextrose 5%-Water 750 MG in Premix Bag 1 BAG IV SCH (11:00)
--- NOTE | 2017-04-19 12:31 | CR ---
Chest: Two views of the chest were obtained. Comparison: Previous chest x-ray 04/18/17. Heart size and mediastinum are normal. Lungs are hyperinflated compatible with emphysematous change. No acute infiltrates are seen. Right shoulder prosthesis is seen. Impression: 1. Emphysematous change. No significant change is seen from previous exam. 2. Nothing acute is appreciated. Diagnostic code #2
[2017-04-19] MEDS: methylPREDNISolone Sodium Succinate 40 MG/1 ML SDV IVPUSH SCH ×3 (12:40→18:57)
[2017-04-19] MEDS: Metoprolol Tartrate 5 MG/5 ML SDV IVPUSH PRN ×2 (12:40→17:58)
[2017-04-19] MEDS ORDERED: Furosemide 40 MG/4 ML VIAL IVPUSH ONE (12:47)
[2017-04-19] MEDS ORDERED: Sodium Chloride 0.9% 10 ML Syringe FLUSH PRN (13:25)
[2017-04-19] MEDS ORDERED: Iopamidol 755 Mg/ML 100 ML Bottle IVPUSH ONE ×2 (13:25→13:51)
[2017-04-19] MEDS ORDERED: Sodium Chloride 0.9% 100 ML IV SCH (13:30)
[2017-04-19] MEDS: Sodium Chloride 0.9% 10 ML Syringe FLUSH PRN (14:20)
--- NOTE | 2017-04-19 14:46 | PCM.PN ---
- General Info Date of Service: 04/19/17 Functional Status: Reports: pain controlled, tolerating diet, ambulating ( minimal), urinating - Review of Systems General: Reports: Weakness HEENT: Reports: no symptoms Pulmonary: Reports: shortness of breath Cardiovascular: Reports: No Symptoms Gastrointestinal: Reports: No symptoms Genitourinary: Reports: no symptoms Musculoskeletal: Reports: no symptoms Skin: Reports: no symptoms Neurological: Reports: No Symptoms Psychiatric: Reports: no symptoms - Patient Data Vitals - most recent: Last Vital Signs Temp 37.2 C 04/19/17 12:00 Pulse 138 H 04/19/17 12:40 Resp 20 04/19/17 12:00 BP 140/94 H 04/19/17 12:40 Pulse Ox 92 L 04/19/17 12:00 Weight - most recent: 46.901 kg I&O - last 24 hours: Intake & Output 04/18/17 04/19/17 04/19/17 22:59 06:59 14:59 Intake Total 1960 1000 480 Output Total 1100 950 600 Balance 860 50 -120 Lab Results last 24 hrs: Laboratory Results - last 24 hr 04/19/17 04/19/17 04/19/17 Range/Units 05:48 05:48 10:50 WBC 9.92 (3.98-10.04) K/mm3 RBC 4.56 (3.98-5.22) M/mm3 Hgb 13.4 (11.2-15.7) gm/L Hct 41.1 (34.1-44.9) % MCV 90.1 (79.4-94.8) fl MCH 29.4 (25.6-32.2) pg MCHC 32.6 (32.2-35.5) g/dl RDW Std Deviation 43.8 (36.4-46.3) fL Plt Count 245 (182-369) K/mm3 MPV 10.9 (9.4-12.3) fl Neut % (Auto) 91.4 H (34.0-71.1) % Lymph % (Auto) 4.7 L (19.3-51.7) % [place] % (Auto) 3.6 L (4.7-12.5) % Eos % (Auto) 0.1 L (0.7-5.8) Baso % (Auto) 0.0 L (0.1-1.2) % Neut # (Auto) 9.06 H (1.56-6.13) K/mm3 Lymph # (Auto) 0.47 L (1.18-3.74) K/mm3 [place] # (Auto) 0.36 (0.24-0.36) K/mm3 Eos # (Auto) 0.01 L (0.04-0.36) K/mm3 Baso # (Auto) 0.00 L (0.01-0.08) K/mm3 Manual Slide Review Abnormal smear Puncture Site Rt radial ABG pH 7.37 (7.35-7.45) ABG pCO2 56.8 H (35.0-45.0) mmHg ABG pO2 63.0 L (80.0-100.0) mmHg ABG HCO3 32.2 H (22.0-26.0) meq/L O2 Delivery Device Nasal cannula Oxygen Flow Rate 3.0 FiO2 0.00 L (21.00-100.00) % Sodium 141 (136-145) mEq/L Potassium 4.0 (3.5-5.1) mEq/L Chloride 103 (98-107) mEq/L Carbon Dioxide 31 (21-32) mEq/L Anion Gap 11.0 (5-15) BUN 27 H (7-18) mg/dL Creatinine 0.8 (0.55-1.02) mg/dL Est Cr Clr Drug Dosing 60.91 mL/min Estimated GFR (MDRD) > 60 (>60) mL/min BUN/Creatinine Ratio 33.8 H (14-18) Glucose 177 H (74-106) mg/dL Calcium 8.7 (8.5-10.1) mg/dL C-Reactive Protein < 0.2 (<1.0) mg/dL Med Orders - Current: Current Medications Acetaminophen (Tylenol) 650 mg PO Q4H PRN PRN Reason: Pain (Mild 1-3)/fever Last Admin: 04/18/17 08:54 Dose: 650 mg Acetaminophen/Butalbital/Caffeine (Fioricet 325-50-40 Mg) 1 tab PO Q8H PRN PRN Reason: migraines Hydrocodone Bitart/Acetaminophen ([place] 325-5 Mg) 1 tab PO Q6H PRN PRN Reason: Pain (moderate 4-6) Last Admin: 04/19/17 12:40 Dose: 1 tab Albuterol (Proventil Neb Soln) 2.5 mg NEB Q4HRRT PRN PRN Reason: Shortness of Breath Last Admin: 04/17/17 11:59 Dose: 2.5 mg Albuterol/Ipratropium (Duoneb 3.0-0.5 Mg/3 Ml) 3 ml NEB QIDRT [facility] Last Admin: 04/19/17 12:56 Dose: Not Given Alprazolam (Xanax) 1 mg PO BID PRN PRN Reason: ANXIETY Bisacodyl (Dulcolax) 5 mg PO DAILY PRN PRN Reason: Constipation Budesonide/Formoterol Fumarate (Symbicort 80-4.5 Mcg) 0 gm INH BID [facility] Last Admin: 04/19/17 08:49 Dose: 1 puff Enoxaparin Sodium (Lovenox) 30 mg SUBCUT DAILY [facility] Hydralazine HCl (Apresoline) 20 mg IVPUSH Q4H PRN PRN Reason: Hypertension Last Admin: 04/19/17 09:09 Dose: 20 mg Hydralazine HCl (Apresoline) 10 mg PO Q12HR [facility] Levofloxacin/Dextrose 750 mg/ (Premix) 150 mls @ 100 mls/hr IV Q48H [facility] Last Admin: 04/19/17 10:59 Dose: 100 mls/hr Sodium Chloride (Normal Saline) 100 mls @ 80 mls/hr IV ASDIRECTED [facility] Stop: 04/19/17 18:00 Last Admin: 04/19/17 14:21 Dose: 80 mls/hr Magnesium Oxide (Magnesium Oxide) 400 mg PO DAILY [facility] Last Admin: 04/19/17 08:59 Dose: 400 mg Methylprednisolone Sodium Succinate (Solu-Medrol) 40 mg IVPUSH Q6H [facility] Last Admin: 04/19/17 12:40 Dose: 40 mg Metoprolol Tartrate (Lopressor) 5 mg IVPUSH Q4H PRN PRN Reason: Tachycardia Last Admin: 04/19/17 12:40 Dose: 5 mg Ondansetron HCl (Zofran) 4 mg IV Q6H PRN PRN Reason: Nausea/Vomiting Polyethylene Glycol (Miralax) 17 gm PO DAILY PRN PRN Reason: Constipation Last Admin: 04/19/17 06:51 Dose: 17 gm Prednisone (Prednisone) 40 mg PO DAILY [facility] Stop: 04/22/17 09:01 Prednisone (Prednisone) 30 mg PO DAILY [facility] Stop: 04/25/17 09:01 Prednisone (Prednisone) 20 mg PO DAILY [facility] Stop: 04/28/17 09:01 Prednisone (Prednisone) 10 mg PO DAILY [facility] Stop: 05/01/17 09:01 Promethazine HCl/Codeine (Phenergan With Codeine) 10 ml PO Q6HR [facility] Last Admin: 04/19/17 11:00 Dose: 10 ml Senna/Docusate Sodium (Senna Plus) 1 tab PO BID PRN PRN Reason: Constipation Sodium Chloride (Saline Flush) 10 ml FLUSH ONETIME PRN PRN Reason: IV FLUSH Stop: 04/19/17 18:00 Temazepam (Restoril) 7.5 mg PO BEDTIME PRN PRN Reason: Insomnia Discontinued Medications Acetaminophen/Butalbital/Caffeine (Fioricet 325-50-40 Mg) 2 tab PO Q6H PRN PRN Reason: migraines Last Admin: 04/16/17 18:47 Dose: 2 tab Hydrocodone Bitart/Acetaminophen ([place] 325-5 Mg) 1 tab PO Q6H PRN PRN Reason: Pain Hydrocodone Bitart/Acetaminophen ([place] 325-5 Mg) 1 tab PO Q4H PRN PRN Reason: Pain (moderate 4-6) Last Admin: 04/17/17 08:28 Dose: 1 tab Albuterol (Proventil Hfa) 0 gm INH BID PRN PRN Reason: Dyspnea Albuterol/Ipratropium (Duoneb 3.0-0.5 Mg/3 Ml) 3 ml NEB ONETIME ONE Stop: 04/15/17 09:25 Last Admin: 04/15/17 09:43 Dose: 3 ml Albuterol/Ipratropium (Duoneb 3.0-0.5 Mg/3 Ml) 3 ml NEB ONETIME ONE Stop: 04/15/17 11:01 Last Admin: 04/15/17 11:38 Dose: 3 ml Albuterol/Ipratropium (Duoneb 3.0-0.5 Mg/3 Ml) 3 ml INH Q4HR PRN PRN Reason: Shortness of Breath Albuterol/Ipratropium (Duoneb 3.0-0.5 Mg/3 Ml) 3 ml NEB Q4H PRN PRN Reason: Shortness Of Breath/wheezing Last Admin: 04/16/17 06:20 Dose: 3 ml Alprazolam (Xanax) 0.5 mg PO BID PRN PRN Reason: Anxiety Alprazolam (Xanax) 1 mg PO BID PRN PRN Reason: Anxiety Last Admin: 04/17/17 08:28 Dose: 1 mg Alprazolam (Xanax) 0.5 mg PO BID PRN PRN Reason: Anxiety Last Admin: 04/18/17 08:55 Dose: 0.5 mg Alprazolam (Xanax) 1 mg PO BID PRN PRN Reason: Anxiety Last Admin: 04/18/17 12:49 Dose: 1 mg Alprazolam (Xanax) 1 mg PO BID [facility] Last Admin: 04/19/17 08:59 Dose: 1 mg Fentanyl (Duragesic) 12 mcg TRDERM Q72H [facility] Last Admin: 04/17/17 12:30 Dose: 12 mcg Furosemide (Lasix) 10 mg IVPUSH NOW ONE Stop: 04/19/17 12:48 Last Admin: 04/19/17 13:47 Dose: 10 mg Hydromorphone HCl (Dilaudid) 1 mg IVPUSH ONETIME ONE Stop: 04/15/17 11:02 Last Admin: 04/15/17 11:23 Dose: 1 mg Magnesium Sulfate/Dextrose 1 (gm/ Premix) 100 mls @ 100 mls/hr IV ONETIME ONE Stop: 04/15/17 10:23 Last Admin: 04/15/17 09:41 Dose: 100 mls/hr Azithromycin 250 mg/ Sodium (Chloride) 250 mls @ 250 mls/hr IV Q24H [facility] Last Admin: 04/15/17 14:55 Dose: Not Given Promethazine HCl 12.5 mg/ (Sodium Chloride) 50.5 mls @ 100 mls/hr IV Q6H PRN PRN Reason: Nausea/Vomiting Azithromycin 250 mg/ Sodium (Chloride) 250 mls @ 250 mls/hr IV Q24H [facility] Last Admin: 04/16/17 14:56 Dose: 250 mls/hr Magnesium Sulfate 2 gm/ Premix 50 mls @ 25 mls/hr IV ONETIME ONE Stop: 04/16/17 20:46 Last Admin: 04/16/17 21:59 Dose: 25 mls/hr Levofloxacin/Dextrose 750 mg/ (Premix) 150 mls @ 100 mls/hr IV Q24H [facility] Last Admin: 04/17/17 10:57 Dose: 100 mls/hr Iopamidol (Isovue-370 (76%)) 100 ml IVPUSH ONETIME ONE Stop: 04/19/17 13:26 Last Admin: 04/19/17 13:47 Dose: Not Given Iopamidol (Isovue-370 (76%)) 100 ml IVPUSH ONETIME ONE Stop: 04/19/17 13:52 Last Admin: 04/19/17 14:20 Dose: 60 ml Lorazepam (Ativan) 1 mg IVPUSH Q4H PRN PRN Reason: anxiety and SOB Magnesium Oxide (Magnesium Oxide) 400 mg PO ONETIME ONE Stop: 04/16/17 08:31 Last Admin: 04/16/17 09:09 Dose: 400 mg Magnesium Sulfate (Pharmacy To Dose - Magnesium Replacement) 1 dose .XX ASDIRECTED [facility] Methylprednisolone Sodium Succinate (Solu-Medrol) 125 mg IVPUSH ONETIME ONE Stop: 04/15/17 09:24 Last Admin: 04/15/17 09:33 Dose: 125 mg Methylprednisolone Sodium Succinate (Solu-Medrol) 125 mg IVPUSH Q8H [facility] Last Admin: 04/17/17 08:27 Dose: 125 mg Methylprednisolone Sodium Succinate (Solu-Medrol) 125 mg IVPUSH Q6H [facility] Last Admin: 04/19/17 06:14 Dose: 125 mg Miscellaneous Information (Remove Patch) 1 ea TRDERM Q72H [facility] Morphine Sulfate (Morphine) 1 mg IVPUSH Q4H PRN PRN Reason: Other Stop: 04/18/17 12:36 Last Admin: 04/15/17 20:16 Dose: 1 mg Morphine Sulfate (Morphine) 3 mg IVPUSH Q4H PRN PRN Reason: Other Stop: 04/18/17 12:36 Last Admin: 04/18/17 08:54 Dose: 3 mg Morphine Sulfate (Morphine) 4 mg IVPUSH ONETIME ONE Stop: 04/18/17 12:51 Last Admin: 04/18/17 12:50 Dose: 4 mg Morphine Sulfate (Morphine) 15 mg PO Q4H PRN PRN Reason: Pain Last Admin: 04/19/17 06:14 Dose: 15 mg Morphine Sulfate (Morphine) 15 mg PO Q8H PRN PRN Reason: Pain Nystatin (Mycostatin) 5 ml PO QID [facility] Last Admin: 04/19/17 08:59 Dose: 5 ml Pneumococcal Polyvalent Vaccine (Pneumovax 23) 0.5 ml IM .ONCE ONE Stop: 04/16/17 19:52 Potassium Chloride (Pharmacy To Dose - Potassium Replacement) 1 dose .XX ASDIRECTED [facility] Promethazine HCl/Codeine (Phenergan With Codeine) 10 ml PO Q6HR PRN PRN Reason: COUGH/Pain (moderate 4-6) Last Admin: 04/17/17 18:19 Dose: 10 ml Sodium Chloride (Saline Flush) 10 ml FLUSH ASDIRECTED PRN PRN Reason: Keep Vein Open Last Admin: 04/19/17 14:20 Dose: 10 ml Temazepam (Restoril) 15 mg PO BEDTIME PRN PRN Reason: Sleep Last Admin: 04/17/17 21:39 Dose: 15 mg - Exam Quality Assessment: supplemental oxygen, DVT prophylaxis General: alert, oriented, cooperative, no acute distress HEENT: Pupils equal, Pupils reactive, EOMI, Mucous membr. moist/pink Neck: supple, trachea midline Lungs: Decreased breath sounds, Wheezing, Other (elevated resp rate; accessory muscle use) Cardiovascular: Regular Rate, Tachycardia Abdomen: bowel sounds present, soft, no tenderness, no distension (Female) Exam: Deferred Back Exam: Normal Inspection Extremities: normal pulses Skin: warm - Problem List Review Problem List Initiated/Reviewed/Updated: Yes - My Orders Last 24 Hours: My Active Orders 04/18/17 18:06 Consult to Physician [CONS] Routine 04/18/17 18:08 Notify Provider Consults [RC] ASDIRECTED 04/18/17 21:10 Temazepam [Restoril] 7.5 mg PO BEDTIME PRN 04/19/17 10:52 Patient Status [ADT] Routine 04/19/17 11:00 Levofloxacin/Dextrose 5%-Water [Levaquin in D5W 750 MG/150 ML] 750 mg Premix Bag 1 bag IV Q48H 04/19/17 11:18 ALPRAZolam [Xanax] 1 mg PO BID PRN 04/19/17 12:05 Consult to Pulmonary Rehabilitation [CONS] Routine 04/19/17 12:35 EKG 12 Lead [EKG Documentation Completion] [RC] ROUTINE 04/19/17 12:36 Consult for Substance Abuse [CONS] Routine 04/19/17 12:50 Bedrest Bedside Commode [RC] ASDIRECTED 04/19/17 13:00 methylPREDNISolone Sod Succ [Solu-MEDROL] 40 mg IVPUSH Q6H 04/19/17 13:22 CTA Chest W WO Contrast [Ang Chest] [CT] Routine 04/19/17 14:00 D Dimer [D-DIMER QUANTITATIVE] [COAG] Routine TROPONIN I [CHEM] Routine 04/19/17 21:00 hydrALAZINE [Apresoline] 10 mg PO Q12HR 04/20/17 05:00 BASIC METABOLIC PANEL,BMP [CHEM] DAILY CBC WITH AUTO DIFF [HEME] DAILY CRP [C-REACTIVE PROTEIN] [CHEM] DAILY 04/20/17 09:00 Enoxaparin [Lovenox] 30 mg SUBCUT DAILY predniSONE 40 mg PO DAILY 04/21/17 05:00 BASIC METABOLIC PANEL,BMP [CHEM] DAILY CBC WITH AUTO DIFF [HEME] DAILY CRP [C-REACTIVE PROTEIN] [CHEM] DAILY 04/22/17 05:00 BASIC METABOLIC PANEL,BMP [CHEM] DAILY CBC WITH AUTO DIFF [HEME] DAILY 04/22/17 07:00 CBC W/O DIFF,HEMOGRAM [HEME] MOTH@0704/23/17 09:00 predniSONE 30 mg PO DAILY 04/26/17 07:00 CBC W/O DIFF,HEMOGRAM [HEME] MOTH@69904/26/17 09:00 predniSONE 20 mg PO DAILY 04/29/17 07:00 CBC W/O DIFF,HEMOGRAM [HEME] MOTH@69904/29/17 09:00 predniSONE 10 mg PO DAILY 05/03/17 07:00 CBC W/O DIFF,HEMOGRAM [HEME] MOTH@69905/06/17 07:00 CBC W/O DIFF,HEMOGRAM [HEME] MOTH@0705/10/17 07:00 CBC W/O DIFF,HEMOGRAM [HEME] MOTH@07 - Plan Plan:: Assessment/Plan: Acute: COPD Exacerbation - Resp distress - She has Advanced COPD - IV Solumedrol, Bronchodilators, IV Magnesium (then resume oral magnesium), and Supplemental O2 - Routine RT care Evaluate for PE with abrupt change in status; transfer to the ICU. Acute on Chronic Respiratory Failure - 2/2 Above - Currently on 3L NC from 1.5; extreme desaturation with exertion - Treat underlying cause Chronic: HTN Pulmonary Arterial Hypertension--->will need [facility] referral Urinary Incontinence OA Migraines Anxiety and Depression Cachexia/Malnutrition Chronic Pain Syndrome-->narcotics requested, verify home meds before DC Plan: Transfer for to ICU for resp distress D Dimer/ECG/Nebs/ Routine AM Labs Resume Home Meds PT/OT/RT consult Dietary Consult CM/SW for d/c planning Code status: 1 LOS>96 hours, slow response to therapy
--- NOTE | 2017-04-19 15:30 | CT ---
CT chest Technique: Multiple axial sections were obtained through the chest. Intravenous contrast was utilized. Study has been performed as a pulmonary angiogram protocol. Comparison: Previous pulmonary angiogram study of 03/05/17. Findings: Pulmonary arteries are well-opacified. No filling defects are seen to indicate pulmonary embolism. Small portion of the visualized upper abdominal structures are within normal limits. Mediastinum and hilar regions show no adenopathy or mass. No axillary adenopathy is seen. Diffuse emphysematous change is seen. Thick linear density seen within the right lung base which is felt compatible with atelectasis. Previous study showed small bilateral pleural effusions which is no longer present. Nothing acute seen within the lungs. Bone window settings were reviewed which appear within normal limits for the patient's age. Impression: 1. Thick area of atelectasis within the right lung base. 2. Prior study showed small bilateral pleural effusion and additional right lung atelectasis which is no longer present. 3. Stable emphysematous change is noted. 4. No findings of pulmonary embolism. Nothing acute is seen on CT study of the chest. Diagnostic code #2
[2017-04-19] MEDS ORDERED: Magnesium Sulfate/Water 2 GM in Premix Bag 1 BAG IV ONE (16:03)
[2017-04-19] MEDS: ALPRAZolam 1 MG Tab PO PRN (20:00)
[2017-04-19] MEDS: hydrALAZINE 10 MG Tab PO SCH (20:00)
[2017-04-19] MEDS: Temazepam 7.5 MG Cap PO PRN (20:00)
[2017-04-20] MEDS: Codeine/Promethazine 10-6.25 MG/5 ML Syrup 5 ML UD Cup PO SCH ×5 (00:35→23:17)
[2017-04-20] MEDS: Acetaminophen/HYDROcodone 325-5 MG Tab PO PRN ×4 (00:36→18:44)
[2017-04-20] MEDS: methylPREDNISolone Sodium Succinate 40 MG/1 ML SDV IVPUSH SCH ×2 (00:37→06:29)
[2017-04-20] MEDS: Albuterol/Ipratropium 3.0-0.5 MG/3 ML Neb Soln NEB SCH ×2 (06:41→10:20)
[2017-04-20] MEDS: Enoxaparin 30 MG/0.3 ML Syringe SUBCUT SCH (08:02)
[2017-04-20] MEDS: hydrALAZINE 10 MG Tab PO SCH ×2 (08:02→20:16)
[2017-04-20] MEDS: hydrALAZINE 20 MG/ML SDV IVPUSH PRN (08:02)
[2017-04-20] MEDS: Magnesium Oxide 400 MG Tab PO SCH (08:02)
[2017-04-20] MEDS: predniSONE 20 MG Tab PO SCH (08:06)
[2017-04-20] MEDS: ALPRAZolam 1 MG Tab PO PRN ×2 (08:11→20:16)
[2017-04-20] MEDS: Budesonide/Formoterol 80-4.5 MCG/Puff 6.9 GM Inhaler INH SCH ×2 (10:20→20:26)
[2017-04-20] MEDS: Levofloxacin/Dextrose 5%-Water 750 MG in Premix Bag 1 BAG IV SCH (11:12)
[2017-04-20] MEDS ORDERED: Remove Patch*FENTANYL TRDERM SCH (12:00)
[2017-04-20] MEDS ORDERED: Furosemide 40 MG/4 ML VIAL IVPUSH ONE (14:03)
--- NOTE | 2017-04-20 14:23 | PCM.PN ---
- General Info Date of Service: 04/20/17 Functional Status: Reports: pain controlled, tolerating diet, ambulating, urinating, other (marked SOB) - Review of Systems General: Reports: No Symptoms HEENT: Reports: no symptoms Pulmonary: Reports: shortness of breath Cardiovascular: Reports: No Symptoms Gastrointestinal: Reports: No symptoms Genitourinary: Reports: no symptoms Musculoskeletal: Reports: no symptoms Skin: Reports: no symptoms Neurological: Reports: No Symptoms Psychiatric: Reports: no symptoms - Patient Data Vitals - most recent: Last Vital Signs Temp 36.6 C 04/20/17 12:00 Pulse 96 04/20/17 08:01 Resp 20 04/20/17 12:00 BP 141/98 H 04/20/17 12:00 Pulse Ox 95 04/20/17 12:00 Weight - most recent: 47.1 kg I&O - last 24 hours: Intake & Output 04/19/17 04/20/17 04/20/17 22:59 06:59 14:59 Intake Total 100 250 240 Output Total 750 200 Balance -650 250 40 Lab Results last 24 hrs: Laboratory Results - last 24 hr 04/19/17 04/19/17 04/20/17 Range/Units 14:45 14:45 06:00 WBC (3.98-10.04) K/mm3 RBC (3.98-5.22) M/mm3 Hgb (11.2-15.7) gm/L Hct (34.1-44.9) % MCV (79.4-94.8) fl MCH (25.6-32.2) pg MCHC (32.2-35.5) g/dl RDW Std Deviation (36.4-46.3) fL Plt Count (182-369) K/mm3 MPV (9.4-12.3) fl Neut % (Auto) (34.0-71.1) % Lymph % (Auto) (19.3-51.7) % [place] % (Auto) (4.7-12.5) % Eos % (Auto) (0.7-5.8) Baso % (Auto) (0.1-1.2) % Neut # (Auto) (1.56-6.13) K/mm3 Lymph # (Auto) (1.18-3.74) K/mm3 [place] # (Auto) (0.24-0.36) K/mm3 Eos # (Auto) (0.04-0.36) K/mm3 Baso # (Auto) (0.01-0.08) K/mm3 Manual Slide Review D-Dimer, Quantitative 0.51 (0.19-0.59) mg/L Sodium 138 (136-145) mEq/L Potassium 4.1 (3.5-5.1) mEq/L Chloride 101 (98-107) mEq/L Carbon Dioxide 36 H (21-32) mEq/L Anion Gap 5.1 (5-15) BUN 25 H (7-18) mg/dL Creatinine 0.8 (0.55-1.02) mg/dL Est Cr Clr Drug Dosing 61.16 mL/min Estimated GFR (MDRD) > 60 (>60) mL/min BUN/Creatinine Ratio 31.3 H (14-18) Glucose 140 H (74-106) mg/dL Calcium 8.3 L (8.5-10.1) mg/dL Magnesium (1.8-2.4) mg/dl Troponin I < 0.017 (0.00-0.056) ng/mL C-Reactive Protein < 0.2 (<1.0) mg/dL 04/20/17 04/20/17 Range/Units 06:00 06:00 WBC 10.21 H (3.98-10.04) K/mm3 RBC 4.67 (3.98-5.22) M/mm3 Hgb 13.5 (11.2-15.7) gm/L Hct 41.9 (34.1-44.9) % MCV 89.7 (79.4-94.8) fl MCH 28.9 (25.6-32.2) pg MCHC 32.2 (32.2-35.5) g/dl RDW Std Deviation 44.0 (36.4-46.3) fL Plt Count 260 (182-369) K/mm3 MPV 10.4 (9.4-12.3) fl Neut % (Auto) 88.5 H (34.0-71.1) % Lymph % (Auto) 5.1 L (19.3-51.7) % [place] % (Auto) 6.0 (4.7-12.5) % Eos % (Auto) 0 L (0.7-5.8) Baso % (Auto) 0.1 (0.1-1.2) % Neut # (Auto) 9.04 H (1.56-6.13) K/mm3 Lymph # (Auto) 0.52 L (1.18-3.74) K/mm3 [place] # (Auto) 0.61 H (0.24-0.36) K/mm3 Eos # (Auto) 0.00 L (0.04-0.36) K/mm3 Baso # (Auto) 0.01 (0.01-0.08) K/mm3 Manual Slide Review Abnormal smear D-Dimer, Quantitative (0.19-0.59) mg/L Sodium (136-145) mEq/L Potassium (3.5-5.1) mEq/L Chloride (98-107) mEq/L Carbon Dioxide (21-32) mEq/L Anion Gap (5-15) BUN (7-18) mg/dL Creatinine (0.55-1.02) mg/dL Est Cr Clr Drug Dosing mL/min Estimated GFR (MDRD) (>60) mL/min BUN/Creatinine Ratio (14-18) Glucose (74-106) mg/dL Calcium (8.5-10.1) mg/dL Magnesium 2.1 (1.8-2.4) mg/dl Troponin I (0.00-0.056) ng/mL C-Reactive Protein (<1.0) mg/dL John Results last 24 hrs: Microbiology 04/16/17 17:31 Respiratory Virus Panel (PCR) (JOHN) - Final Nasopharyngeal Swab Med Orders - Current: Current Medications Acetaminophen (Tylenol) 650 mg PO Q4H PRN PRN Reason: Pain (Mild 1-3)/fever Last Admin: 04/18/17 08:54 Dose: 650 mg Acetaminophen/Butalbital/Caffeine (Fioricet 325-50-40 Mg) 1 tab PO Q8H PRN PRN Reason: migraines Hydrocodone Bitart/Acetaminophen (Centerpoint 325-5 Mg) 1 tab PO Q6H PRN PRN Reason: Pain (moderate 4-6) Last Admin: 04/20/17 12:40 Dose: 1 tab Albuterol (Proventil Neb Soln) 2.5 mg NEB Q4HRRT PRN PRN Reason: Shortness of Breath Last Admin: 04/17/17 11:59 Dose: 2.5 mg Alprazolam (Xanax) 1 mg PO BID PRN PRN Reason: ANXIETY Last Admin: 04/20/17 08:11 Dose: 1 mg Bisacodyl (Dulcolax) 5 mg PO DAILY PRN PRN Reason: Constipation Budesonide/Formoterol Fumarate (Symbicort 80-4.5 Mcg) 0 gm INH BID [facility] Last Admin: 04/20/17 10:20 Dose: 1 puff Enoxaparin Sodium (Lovenox) 30 mg SUBCUT DAILY [facility] Last Admin: 04/20/17 08:02 Dose: 30 mg Hydralazine HCl (Apresoline) 20 mg IVPUSH Q4H PRN PRN Reason: Hypertension Last Admin: 04/20/17 08:02 Dose: 20 mg Hydralazine HCl (Apresoline) 10 mg PO Q12HR [facility] Last Admin: 04/20/17 08:02 Dose: 10 mg Levofloxacin/Dextrose 750 mg/ (Premix) 150 mls @ 100 mls/hr IV Q24H [facility] Last Admin: 04/20/17 11:12 Dose: 100 mls/hr Levalbuterol HCl (Xopenex) 1.25 mg INH QIDRT [facility] Magnesium Oxide (Magnesium Oxide) 400 mg PO DAILY [facility] Last Admin: 04/20/17 08:02 Dose: 400 mg Metoprolol Tartrate (Lopressor) 5 mg IVPUSH Q4H PRN PRN Reason: Tachycardia Last Admin: 04/19/17 17:58 Dose: 5 mg Ondansetron HCl (Zofran) 4 mg IV Q6H PRN PRN Reason: Nausea/Vomiting Polyethylene Glycol (Miralax) 17 gm PO DAILY PRN PRN Reason: Constipation Last Admin: 04/19/17 06:51 Dose: 17 gm Prednisone (Prednisone) 40 mg PO DAILY [facility] Stop: 04/22/17 09:01 Last Admin: 04/20/17 08:06 Dose: 40 mg Prednisone (Prednisone) 30 mg PO DAILY [facility] Stop: 04/25/17 09:01 Prednisone (Prednisone) 20 mg PO DAILY [facility] Stop: 04/28/17 09:01 Prednisone (Prednisone) 10 mg PO DAILY [facility] Stop: 05/01/17 09:01 Promethazine HCl/Codeine (Phenergan With Codeine) 10 ml PO Q6HR [facility] Last Admin: 04/20/17 12:46 Dose: 10 ml Senna/Docusate Sodium (Senna Plus) 1 tab PO BID PRN PRN Reason: Constipation Temazepam (Restoril) 7.5 mg PO BEDTIME PRN PRN Reason: Insomnia Last Admin: 04/19/17 20:00 Dose: 7.5 mg Discontinued Medications Acetaminophen/Butalbital/Caffeine (Fioricet 325-50-40 Mg) 2 tab PO Q6H PRN PRN Reason: migraines Last Admin: 04/16/17 18:47 Dose: 2 tab Hydrocodone Bitart/Acetaminophen (Centerpoint 325-5 Mg) 1 tab PO Q6H PRN PRN Reason: Pain Hydrocodone Bitart/Acetaminophen (Centerpoint 325-5 Mg) 1 tab PO Q4H PRN PRN Reason: Pain (moderate 4-6) Last Admin: 04/17/17 08:28 Dose: 1 tab Albuterol (Proventil Hfa) 0 gm INH BID PRN PRN Reason: Dyspnea Albuterol/Ipratropium (Duoneb 3.0-0.5 Mg/3 Ml) 3 ml NEB ONETIME ONE Stop: 04/15/17 09:25 Last Admin: 04/15/17 09:43 Dose: 3 ml Albuterol/Ipratropium (Duoneb 3.0-0.5 Mg/3 Ml) 3 ml NEB ONETIME ONE Stop: 04/15/17 11:01 Last Admin: 04/15/17 11:38 Dose: 3 ml Albuterol/Ipratropium (Duoneb 3.0-0.5 Mg/3 Ml) 3 ml INH Q4HR PRN PRN Reason: Shortness of Breath Albuterol/Ipratropium (Duoneb 3.0-0.5 Mg/3 Ml) 3 ml NEB Q4H PRN PRN Reason: Shortness Of Breath/wheezing Last Admin: 04/16/17 06:20 Dose: 3 ml Albuterol/Ipratropium (Duoneb 3.0-0.5 Mg/3 Ml) 3 ml NEB QIDRT [facility] Last Admin: 04/20/17 10:20 Dose: 3 ml Alprazolam (Xanax) 0.5 mg PO BID PRN PRN Reason: Anxiety Alprazolam (Xanax) 1 mg PO BID PRN PRN Reason: Anxiety Last Admin: 04/17/17 08:28 Dose: 1 mg Alprazolam (Xanax) 0.5 mg PO BID PRN PRN Reason: Anxiety Last Admin: 04/18/17 08:55 Dose: 0.5 mg Alprazolam (Xanax) 1 mg PO BID PRN PRN Reason: Anxiety Last Admin: 04/18/17 12:49 Dose: 1 mg Alprazolam (Xanax) 1 mg PO BID [facility] Last Admin: 04/19/17 08:59 Dose: 1 mg Fentanyl (Duragesic) 12 mcg TRDERM Q72H [facility] Last Admin: 04/17/17 12:30 Dose: 12 mcg Furosemide (Lasix) 10 mg IVPUSH NOW ONE Stop: 04/19/17 12:48 Last Admin: 04/19/17 13:47 Dose: 10 mg Furosemide (Lasix) 20 mg IVPUSH NOW ONE Stop: 04/20/17 14:04 Hydromorphone HCl (Dilaudid) 1 mg IVPUSH ONETIME ONE Stop: 04/15/17 11:02 Last Admin: 04/15/17 11:23 Dose: 1 mg Magnesium Sulfate/Dextrose 1 (gm/ Premix) 100 mls @ 100 mls/hr IV ONETIME ONE Stop: 04/15/17 10:23 Last Admin: 04/15/17 09:41 Dose: 100 mls/hr Azithromycin 250 mg/ Sodium (Chloride) 250 mls @ 250 mls/hr IV Q24H [facility] Last Admin: 04/15/17 14:55 Dose: Not Given Promethazine HCl 12.5 mg/ (Sodium Chloride) 50.5 mls @ 100 mls/hr IV Q6H PRN PRN Reason: Nausea/Vomiting Azithromycin 250 mg/ Sodium (Chloride) 250 mls @ 250 mls/hr IV Q24H [facility] Last Admin: 04/16/17 14:56 Dose: 250 mls/hr Magnesium Sulfate 2 gm/ Premix 50 mls @ 25 mls/hr IV ONETIME ONE Stop: 04/16/17 20:46 Last Admin: 04/16/17 21:59 Dose: 25 mls/hr Levofloxacin/Dextrose 750 mg/ (Premix) 150 mls @ 100 mls/hr IV Q24H [facility] Last Admin: 04/17/17 10:57 Dose: 100 mls/hr Levofloxacin/Dextrose 750 mg/ (Premix) 150 mls @ 100 mls/hr IV Q48H [facility] Last Admin: 04/19/17 10:59 Dose: 100 mls/hr Sodium Chloride (Normal Saline) 100 mls @ 80 mls/hr IV ASDIRECTED [facility] Stop: 04/19/17 18:00 Last Admin: 04/19/17 14:21 Dose: 80 mls/hr Magnesium Sulfate 2 gm/ Premix 50 mls @ 25 mls/hr IV ONETIME ONE Stop: 04/19/17 18:02 Last Admin: 04/19/17 17:40 Dose: 25 mls/hr Iopamidol (Isovue-370 (76%)) 100 ml IVPUSH ONETIME ONE Stop: 04/19/17 13:26 Last Admin: 04/19/17 13:47 Dose: Not Given Iopamidol (Isovue-370 (76%)) 100 ml IVPUSH ONETIME ONE Stop: 04/19/17 13:52 Last Admin: 04/19/17 14:20 Dose: 60 ml Lorazepam (Ativan) 1 mg IVPUSH Q4H PRN PRN Reason: anxiety and SOB Magnesium Oxide (Magnesium Oxide) 400 mg PO ONETIME ONE Stop: 04/16/17 08:31 Last Admin: 04/16/17 09:09 Dose: 400 mg Magnesium Sulfate (Pharmacy To Dose - Magnesium Replacement) 1 dose .XX ASDIRECTED [facility] Methylprednisolone Sodium Succinate (Solu-Medrol) 125 mg IVPUSH ONETIME ONE Stop: 04/15/17 09:24 Last Admin: 04/15/17 09:33 Dose: 125 mg Methylprednisolone Sodium Succinate (Solu-Medrol) 125 mg IVPUSH Q8H [facility] Last Admin: 04/17/17 08:27 Dose: 125 mg Methylprednisolone Sodium Succinate (Solu-Medrol) 125 mg IVPUSH Q6H [facility] Last Admin: 04/19/17 06:14 Dose: 125 mg Methylprednisolone Sodium Succinate (Solu-Medrol) 40 mg IVPUSH Q6H [facility] Last Admin: 04/20/17 06:29 Dose: Not Given Miscellaneous Information (Remove Patch) 1 ea TRDERM Q72H [facility] Morphine Sulfate (Morphine) 1 mg IVPUSH Q4H PRN PRN Reason: Other Stop: 04/18/17 12:36 Last Admin: 04/15/17 20:16 Dose: 1 mg Morphine Sulfate (Morphine) 3 mg IVPUSH Q4H PRN PRN Reason: Other Stop: 04/18/17 12:36 Last Admin: 04/18/17 08:54 Dose: 3 mg Morphine Sulfate (Morphine) 4 mg IVPUSH ONETIME ONE Stop: 04/18/17 12:51 Last Admin: 04/18/17 12:50 Dose: 4 mg Morphine Sulfate (Morphine) 15 mg PO Q4H PRN PRN Reason: Pain Last Admin: 04/19/17 06:14 Dose: 15 mg Morphine Sulfate (Morphine) 15 mg PO Q8H PRN PRN Reason: Pain Nystatin (Mycostatin) 5 ml PO QID [facility] Last Admin: 04/19/17 08:59 Dose: 5 ml Pneumococcal Polyvalent Vaccine (Pneumovax 23) 0.5 ml IM .ONCE ONE Stop: 04/16/17 19:52 Potassium Chloride (Pharmacy To Dose - Potassium Replacement) 1 dose .XX ASDIRECTED [facility] Promethazine HCl/Codeine (Phenergan With Codeine) 10 ml PO Q6HR PRN PRN Reason: COUGH/Pain (moderate 4-6) Last Admin: 04/17/17 18:19 Dose: 10 ml Sodium Chloride (Saline Flush) 10 ml FLUSH ASDIRECTED PRN PRN Reason: Keep Vein Open Last Admin: 04/19/17 14:20 Dose: 10 ml Sodium Chloride (Saline Flush) 10 ml FLUSH ONETIME PRN PRN Reason: IV FLUSH Stop: 04/19/17 18:00 Temazepam (Restoril) 15 mg PO BEDTIME PRN PRN Reason: Sleep Last Admin: 04/17/17 21:39 Dose: 15 mg - Exam Quality Assessment: supplemental oxygen, urine catheter (declined), DVT prophylaxis General: alert, oriented, cooperative, no acute distress HEENT: Pupils equal, Pupils reactive, EOMI Neck: supple, trachea midline, no JVD Lungs: Decreased breath sounds, Wheezing Cardiovascular: Regular Rate, Tachycardia Abdomen: bowel sounds present, soft, no tenderness, no distension (Female) Exam: Deferred Back Exam: Normal Inspection Extremities: normal pulses Skin: warm Neurological: no new focal deficit, normal gait, normal speech Psy/Mental Status: alert, normal affect, normal mood - Problem List & Annotations (1) Mycoplasma pneumonia SNOMED Code(s): 38231766 Code(s): J15.7 - PNEUMONIA DUE TO MYCOPLASMA PNEUMONIAE Status: Acute Current Visit: Yes (2) COPD exacerbation SNOMED Code(s): 187730347, 451388511 Code(s): J44.1 - CHRONIC OBSTRUCTIVE PULMONARY DISEASE W (ACUTE) EXACERBATION Status: Acute Current Visit: Yes - Problem List Review Problem List Initiated/Reviewed/Updated: Yes - My Orders Last 24 Hours: My Active Orders 04/19/17 21:00 hydrALAZINE [Apresoline] 10 mg PO Q12HR 04/20/17 09:00 Enoxaparin [Lovenox] 30 mg SUBCUT DAILY predniSONE 40 mg PO DAILY 04/20/17 10:39 Patient Status [ADT] Routine 04/20/17 11:00 Levofloxacin/Dextrose 5%-Water [Levaquin in D5W 750 MG/150 ML] 750 mg Premix Bag 1 bag IV Q24H 04/20/17 14:03 Urinary Catheter Assessment [RC] ASDIRECTED 04/20/17 14:15 Pinto Catheter Insertion [Insert Urinary Catheter] [OM.PC] Q24H 04/20/17 16:00 Levalbuterol HCl [Xopenex] 1.25 mg INH QIDRT 04/21/17 05:00 BASIC METABOLIC PANEL,BMP [CHEM] DAILY CBC WITH AUTO DIFF [HEME] DAILY CRP [C-REACTIVE PROTEIN] [CHEM] DAILY 04/22/17 05:00 BASIC METABOLIC PANEL,BMP [CHEM] DAILY CBC WITH AUTO DIFF [HEME] DAILY 04/22/17 07:00 CBC W/O DIFF,HEMOGRAM [HEME] MOTH@69904/23/17 09:00 predniSONE 30 mg PO DAILY 04/26/17 07:00 CBC W/O DIFF,HEMOGRAM [HEME] MOTH@69904/26/17 09:00 predniSONE 20 mg PO DAILY 04/29/17 07:00 CBC W/O DIFF,HEMOGRAM [HEME] MOTH@69904/29/17 09:00 predniSONE 10 mg PO DAILY 05/03/17 07:00 CBC W/O DIFF,HEMOGRAM [HEME] MOTH@69905/06/17 07:00 CBC W/O DIFF,HEMOGRAM [HEME] MOTH@69905/10/17 07:00 CBC W/O DIFF,HEMOGRAM [HEME] MOTH@699 - Plan Plan:: Assessment/Plan: Acute: Mycoplasma Pneumonia on Levoquin COPD Exacerbation - Resp distress - She has Advanced COPD - IV Solumedrol, Bronchodilators, IV Magnesium (then resume oral magnesium), and Supplemental O2 - Routine RT care Evaluate for PE with abrupt change in status; transfer to the ICU. Acute on Chronic Respiratory Failure - 2/2 Above - Currently on 3L NC from 1.5; extreme desaturation with exertion - Treat underlying cause Chronic: HTN Pulmonary Arterial Hypertension--->will need [facility] referral Urinary Incontinence OA Migraines Anxiety and Depression Cachexia/Malnutrition Chronic Pain Syndrome-->narcotics requested, verify home meds before DC Plan: Change to MS tele D Dimer/ECG/Nebs/ Routine AM Labs Resume Home Meds PT/OT/RT consult Dietary Consult CM/SW for d/c planning Code status: 1 LOS>96 hours, slow response to therapy
[2017-04-20] MEDS: Levalbuterol HCl 1.25 MG/3 ML Neb INH SCH ×2 (15:36→22:07)
[2017-04-20] MEDS: Metoprolol Tartrate 5 MG/5 ML SDV IVPUSH PRN (16:00)
[2017-04-20] MEDS: Temazepam 7.5 MG Cap PO PRN (20:16)
[2017-04-21] MEDS: Acetaminophen/HYDROcodone 325-5 MG Tab PO PRN ×4 (03:09→22:30)
[2017-04-21] MEDS: Levalbuterol HCl 1.25 MG/3 ML Neb INH SCH ×3 (05:35→21:09)
[2017-04-21] MEDS: Codeine/Promethazine 10-6.25 MG/5 ML Syrup 5 ML UD Cup PO SCH ×3 (05:37→17:12)
[2017-04-21] MEDS: hydrALAZINE 10 MG Tab PO SCH ×2 (09:43→20:59)
[2017-04-21] MEDS: predniSONE 20 MG Tab PO SCH (09:45)
[2017-04-21] MEDS: Enoxaparin 30 MG/0.3 ML Syringe SUBCUT SCH (09:46)
[2017-04-21] MEDS: ALPRAZolam 1 MG Tab PO PRN ×2 (09:46→21:00)
[2017-04-21] MEDS: Magnesium Oxide 400 MG Tab PO SCH (09:46)
[2017-04-21] MEDS: Budesonide/Formoterol 80-4.5 MCG/Puff 6.9 GM Inhaler INH SCH ×2 (10:24→20:41)
[2017-04-21] MEDS ORDERED: Furosemide 20 MG/2 ML VIAL IVPUSH ONE (11:31)
--- NOTE | 2017-04-21 11:35 | PCM.PN ---
- General Info Date of Service: 04/21/17 Functional Status: Reports: tolerating diet, ambulating, urinating - Review of Systems General: Reports: Fatigue HEENT: Reports: no symptoms Pulmonary: Reports: shortness of breath Cardiovascular: Reports: No Symptoms Gastrointestinal: Reports: No symptoms Genitourinary: Reports: no symptoms Musculoskeletal: Reports: no symptoms Skin: Reports: no symptoms Neurological: Reports: No Symptoms Psychiatric: Reports: no symptoms - Patient Data Vitals - most recent: Last Vital Signs Temp 36.8 C 04/21/17 07:49 Pulse 93 04/21/17 03:34 Resp 18 04/21/17 07:49 BP 131/89 04/21/17 09:43 Pulse Ox 96 04/21/17 10:24 Weight - most recent: 44.407 kg I&O - last 24 hours: Intake & Output 04/20/17 04/21/17 04/21/17 22:59 06:59 14:59 Intake Total 870 920 330 Output Total 1100 400 Balance -230 920 -70 Lab Results last 24 hrs: Laboratory Results - last 24 hr 04/21/17 04/21/17 Range/Units 05:30 05:30 WBC 9.80 (3.98-10.04) K/mm3 RBC 4.61 (3.98-5.22) M/mm3 Hgb 13.2 (11.2-15.7) gm/L Hct 41.4 (34.1-44.9) % MCV 89.8 (79.4-94.8) fl MCH 28.6 (25.6-32.2) pg MCHC 31.9 L (32.2-35.5) g/dl RDW Std Deviation 43.9 (36.4-46.3) fL Plt Count 246 (182-369) K/mm3 MPV 10.6 (9.4-12.3) fl Neut % (Auto) 65.3 (34.0-71.1) % Lymph % (Auto) 20.6 (19.3-51.7) % [place] % (Auto) 13.2 H (4.7-12.5) % Eos % (Auto) 0.3 L (0.7-5.8) Baso % (Auto) 0.1 (0.1-1.2) % Neut # (Auto) 6.40 H (1.56-6.13) K/mm3 Lymph # (Auto) 2.02 (1.18-3.74) K/mm3 Karnes # (Auto) 1.29 H (0.24-0.36) K/mm3 Eos # (Auto) 0.03 L (0.04-0.36) K/mm3 Baso # (Auto) 0.01 (0.01-0.08) K/mm3 Sodium 140 (136-145) mEq/L Potassium 3.5 (3.5-5.1) mEq/L Chloride 101 (98-107) mEq/L Carbon Dioxide 38 H (21-32) mEq/L Anion Gap 4.5 L (5-15) BUN 22 H (7-18) mg/dL Creatinine 0.8 (0.55-1.02) mg/dL Est Cr Clr Drug Dosing 57.67 mL/min Estimated GFR (MDRD) > 60 (>60) mL/min BUN/Creatinine Ratio 27.5 H (14-18) Glucose 85 (74-106) mg/dL Calcium 8.1 L (8.5-10.1) mg/dL C-Reactive Protein < 0.2 (<1.0) mg/dL Med Orders - Current: Current Medications Acetaminophen (Tylenol) 650 mg PO Q4H PRN PRN Reason: Pain (Mild 1-3)/fever Last Admin: 04/18/17 08:54 Dose: 650 mg Acetaminophen/Butalbital/Caffeine (Fioricet 325-50-40 Mg) 1 tab PO Q8H PRN PRN Reason: migraines Hydrocodone Bitart/Acetaminophen ([place] 325-5 Mg) 1 tab PO Q6H PRN PRN Reason: Pain (moderate 4-6) Last Admin: 04/21/17 09:51 Dose: 1 tab Albuterol (Proventil Neb Soln) 2.5 mg NEB Q4HRRT PRN PRN Reason: Shortness of Breath Last Admin: 04/17/17 11:59 Dose: 2.5 mg Alprazolam (Xanax) 1 mg PO BID PRN PRN Reason: ANXIETY Last Admin: 04/21/17 09:46 Dose: 1 mg Bisacodyl (Dulcolax) 5 mg PO DAILY PRN PRN Reason: Constipation Budesonide/Formoterol Fumarate (Symbicort 80-4.5 Mcg) 0 gm INH BID [facility] Last Admin: 04/21/17 10:24 Dose: 1 puff Enoxaparin Sodium (Lovenox) 30 mg SUBCUT DAILY [facility] Last Admin: 04/21/17 09:46 Dose: 30 mg Furosemide (Lasix) 20 mg IVPUSH NOW ONE Stop: 04/21/17 11:32 Hydralazine HCl (Apresoline) 20 mg IVPUSH Q4H PRN PRN Reason: Hypertension Last Admin: 04/20/17 08:02 Dose: 20 mg Hydralazine HCl (Apresoline) 10 mg PO Q12HR [facility] Last Admin: 04/21/17 09:43 Dose: 10 mg Levofloxacin/Dextrose 750 mg/ (Premix) 150 mls @ 100 mls/hr IV Q24H [facility] Last Admin: 04/20/17 11:12 Dose: 100 mls/hr Levalbuterol HCl (Xopenex) 1.25 mg INH QIDRT [facility] Last Admin: 04/21/17 10:23 Dose: 1.25 mg Magnesium Oxide (Magnesium Oxide) 400 mg PO DAILY [facility] Last Admin: 04/21/17 09:46 Dose: 400 mg Metoprolol Tartrate (Lopressor) 5 mg IVPUSH Q4H PRN PRN Reason: Tachycardia Last Admin: 04/20/17 16:00 Dose: 5 mg Ondansetron HCl (Zofran) 4 mg IV Q6H PRN PRN Reason: Nausea/Vomiting Polyethylene Glycol (Miralax) 17 gm PO DAILY PRN PRN Reason: Constipation Last Admin: 04/19/17 06:51 Dose: 17 gm Prednisone (Prednisone) 40 mg PO DAILY [facility] Stop: 04/22/17 09:01 Last Admin: 04/21/17 09:45 Dose: 40 mg Prednisone (Prednisone) 30 mg PO DAILY [facility] Stop: 04/25/17 09:01 Prednisone (Prednisone) 20 mg PO DAILY [facility] Stop: 04/28/17 09:01 Prednisone (Prednisone) 10 mg PO DAILY [facility] Stop: 05/01/17 09:01 Promethazine HCl/Codeine (Phenergan With Codeine) 10 ml PO Q6HR [facility] Last Admin: 04/21/17 05:37 Dose: 10 ml Senna/Docusate Sodium (Senna Plus) 1 tab PO BID PRN PRN Reason: Constipation Spironolactone (Aldactone) 25 mg PO DAILY SHAUN Temazepam (Restoril) 7.5 mg PO BEDTIME PRN PRN Reason: Insomnia Last Admin: 04/20/17 20:16 Dose: 7.5 mg Discontinued Medications Acetaminophen/Butalbital/Caffeine (Fioricet 325-50-40 Mg) 2 tab PO Q6H PRN PRN Reason: migraines Last Admin: 04/16/17 18:47 Dose: 2 tab Hydrocodone Bitart/Acetaminophen ([place] 325-5 Mg) 1 tab PO Q6H PRN PRN Reason: Pain Hydrocodone Bitart/Acetaminophen ([place] 325-5 Mg) 1 tab PO Q4H PRN PRN Reason: Pain (moderate 4-6) Last Admin: 04/17/17 08:28 Dose: 1 tab Albuterol (Proventil Hfa) 0 gm INH BID PRN PRN Reason: Dyspnea Albuterol/Ipratropium (Duoneb 3.0-0.5 Mg/3 Ml) 3 ml NEB ONETIME ONE Stop: 04/15/17 09:25 Last Admin: 04/15/17 09:43 Dose: 3 ml Albuterol/Ipratropium (Duoneb 3.0-0.5 Mg/3 Ml) 3 ml NEB ONETIME ONE Stop: 04/15/17 11:01 Last Admin: 04/15/17 11:38 Dose: 3 ml Albuterol/Ipratropium (Duoneb 3.0-0.5 Mg/3 Ml) 3 ml INH Q4HR PRN PRN Reason: Shortness of Breath Albuterol/Ipratropium (Duoneb 3.0-0.5 Mg/3 Ml) 3 ml NEB Q4H PRN PRN Reason: Shortness Of Breath/wheezing Last Admin: 04/16/17 06:20 Dose: 3 ml Albuterol/Ipratropium (Duoneb 3.0-0.5 Mg/3 Ml) 3 ml NEB QIDRT SHAUN Last Admin: 04/20/17 10:20 Dose: 3 ml Alprazolam (Xanax) 0.5 mg PO BID PRN PRN Reason: Anxiety Alprazolam (Xanax) 1 mg PO BID PRN PRN Reason: Anxiety Last Admin: 04/17/17 08:28 Dose: 1 mg Alprazolam (Xanax) 0.5 mg PO BID PRN PRN Reason: Anxiety Last Admin: 04/18/17 08:55 Dose: 0.5 mg Alprazolam (Xanax) 1 mg PO BID PRN PRN Reason: Anxiety Last Admin: 04/18/17 12:49 Dose: 1 mg Alprazolam (Xanax) 1 mg PO BID [facility] Last Admin: 04/19/17 08:59 Dose: 1 mg Fentanyl (Duragesic) 12 mcg TRDERM Q72H [facility] Last Admin: 04/17/17 12:30 Dose: 12 mcg Furosemide (Lasix) 10 mg IVPUSH NOW ONE Stop: 04/19/17 12:48 Last Admin: 04/19/17 13:47 Dose: 10 mg Furosemide (Lasix) 20 mg IVPUSH NOW ONE Stop: 04/20/17 14:04 Last Admin: 04/20/17 14:30 Dose: 20 mg Hydromorphone HCl (Dilaudid) 1 mg IVPUSH ONETIME ONE Stop: 04/15/17 11:02 Last Admin: 04/15/17 11:23 Dose: 1 mg Magnesium Sulfate/Dextrose 1 (gm/ Premix) 100 mls @ 100 mls/hr IV ONETIME ONE Stop: 04/15/17 10:23 Last Admin: 04/15/17 09:41 Dose: 100 mls/hr Azithromycin 250 mg/ Sodium (Chloride) 250 mls @ 250 mls/hr IV Q24H [facility] Last Admin: 04/15/17 14:55 Dose: Not Given Promethazine HCl 12.5 mg/ (Sodium Chloride) 50.5 mls @ 100 mls/hr IV Q6H PRN PRN Reason: Nausea/Vomiting Azithromycin 250 mg/ Sodium (Chloride) 250 mls @ 250 mls/hr IV Q24H [facility] Last Admin: 04/16/17 14:56 Dose: 250 mls/hr Magnesium Sulfate 2 gm/ Premix 50 mls @ 25 mls/hr IV ONETIME ONE Stop: 04/16/17 20:46 Last Admin: 04/16/17 21:59 Dose: 25 mls/hr Levofloxacin/Dextrose 750 mg/ (Premix) 150 mls @ 100 mls/hr IV Q24H [facility] Last Admin: 04/17/17 10:57 Dose: 100 mls/hr Levofloxacin/Dextrose 750 mg/ (Premix) 150 mls @ 100 mls/hr IV Q48H [facility] Last Admin: 04/19/17 10:59 Dose: 100 mls/hr Sodium Chloride (Normal Saline) 100 mls @ 80 mls/hr IV ASDIRECTED [facility] Stop: 04/19/17 18:00 Last Admin: 04/19/17 14:21 Dose: 80 mls/hr Magnesium Sulfate 2 gm/ Premix 50 mls @ 25 mls/hr IV ONETIME ONE Stop: 04/19/17 18:02 Last Admin: 04/19/17 17:40 Dose: 25 mls/hr Iopamidol (Isovue-370 (76%)) 100 ml IVPUSH ONETIME ONE Stop: 04/19/17 13:26 Last Admin: 04/19/17 13:47 Dose: Not Given Iopamidol (Isovue-370 (76%)) 100 ml IVPUSH ONETIME ONE Stop: 04/19/17 13:52 Last Admin: 04/19/17 14:20 Dose: 60 ml Lorazepam (Ativan) 1 mg IVPUSH Q4H PRN PRN Reason: anxiety and SOB Magnesium Oxide (Magnesium Oxide) 400 mg PO ONETIME ONE Stop: 04/16/17 08:31 Last Admin: 04/16/17 09:09 Dose: 400 mg Magnesium Sulfate (Pharmacy To Dose - Magnesium Replacement) 1 dose .XX ASDIRECTED [facility] Methylprednisolone Sodium Succinate (Solu-Medrol) 125 mg IVPUSH ONETIME ONE Stop: 04/15/17 09:24 Last Admin: 04/15/17 09:33 Dose: 125 mg Methylprednisolone Sodium Succinate (Solu-Medrol) 125 mg IVPUSH Q8H [facility] Last Admin: 04/17/17 08:27 Dose: 125 mg Methylprednisolone Sodium Succinate (Solu-Medrol) 125 mg IVPUSH Q6H [facility] Last Admin: 04/19/17 06:14 Dose: 125 mg Methylprednisolone Sodium Succinate (Solu-Medrol) 40 mg IVPUSH Q6H [facility] Last Admin: 04/20/17 06:29 Dose: Not Given Miscellaneous Information (Remove Patch) 1 ea TRDERM Q72H [facility] Morphine Sulfate (Morphine) 1 mg IVPUSH Q4H PRN PRN Reason: Other Stop: 04/18/17 12:36 Last Admin: 04/15/17 20:16 Dose: 1 mg Morphine Sulfate (Morphine) 3 mg IVPUSH Q4H PRN PRN Reason: Other Stop: 04/18/17 12:36 Last Admin: 04/18/17 08:54 Dose: 3 mg Morphine Sulfate (Morphine) 4 mg IVPUSH ONETIME ONE Stop: 04/18/17 12:51 Last Admin: 04/18/17 12:50 Dose: 4 mg Morphine Sulfate (Morphine) 15 mg PO Q4H PRN PRN Reason: Pain Last Admin: 04/19/17 06:14 Dose: 15 mg Morphine Sulfate (Morphine) 15 mg PO Q8H PRN PRN Reason: Pain Nystatin (Mycostatin) 5 ml PO QID SHAUN Last Admin: 04/19/17 08:59 Dose: 5 ml Pneumococcal Polyvalent Vaccine (Pneumovax 23) 0.5 ml IM .ONCE ONE Stop: 04/16/17 19:52 Potassium Chloride (Pharmacy To Dose - Potassium Replacement) 1 dose .XX ASDIRECTED [facility] Promethazine HCl/Codeine (Phenergan With Codeine) 10 ml PO Q6HR PRN PRN Reason: COUGH/Pain (moderate 4-6) Last Admin: 04/17/17 18:19 Dose: 10 ml Sodium Chloride (Saline Flush) 10 ml FLUSH ASDIRECTED PRN PRN Reason: Keep Vein Open Last Admin: 04/19/17 14:20 Dose: 10 ml Sodium Chloride (Saline Flush) 10 ml FLUSH ONETIME PRN PRN Reason: IV FLUSH Stop: 04/19/17 18:00 Temazepam (Restoril) 15 mg PO BEDTIME PRN PRN Reason: Sleep Last Admin: 04/17/17 21:39 Dose: 15 mg - Exam Quality Assessment: supplemental oxygen, DVT prophylaxis General: alert, oriented, cooperative, no acute distress HEENT: Pupils equal, Pupils reactive, EOMI Neck: supple, trachea midline, no JVD Lungs: Decreased breath sounds, Crackles, Wheezing Cardiovascular: Regular Rate, Regular Rhythm Abdomen: bowel sounds present, soft, no tenderness, no distension (Female) Exam: Deferred Back Exam: Normal Inspection Extremities: no edema, normal pulses Skin: warm Neurological: no new focal deficit, normal speech Psy/Mental Status: alert, normal affect, normal mood - Problem List & Annotations (1) Mycoplasma pneumonia SNOMED Code(s): 37192808 Code(s): J15.7 - PNEUMONIA DUE TO MYCOPLASMA PNEUMONIAE Status: Acute Current Visit: Yes (2) COPD exacerbation SNOMED Code(s): 022896141, 444763539 Code(s): J44.1 - CHRONIC OBSTRUCTIVE PULMONARY DISEASE W (ACUTE) EXACERBATION Status: Acute Current Visit: Yes - Problem List Review Problem List Initiated/Reviewed/Updated: Yes - My Orders Last 24 Hours: My Active Orders 04/20/17 10:39 Patient Status [ADT] Routine 04/20/17 11:00 Levofloxacin/Dextrose 5%-Water [Levaquin in D5W 750 MG/150 ML] 750 mg Premix Bag 1 bag IV Q24H 04/20/17 14:03 Urinary Catheter Assessment [RC] ASDIRECTED 04/20/17 14:15 Pinto Catheter Insertion [Insert Urinary Catheter] [OM.PC] Q24H 04/20/17 16:00 Levalbuterol HCl [Xopenex] 1.25 mg INH QIDRT 04/21/17 11:31 Furosemide [Lasix] 20 mg IVPUSH NOW ONE 04/21/17 14:00 B-TYPE NATRIURETIC PEPTIDE,BNP [CHEM] Routine 04/22/17 05:00 BASIC METABOLIC PANEL,BMP [CHEM] DAILY CBC WITH AUTO DIFF [HEME] DAILY 04/22/17 07:00 CBC W/O DIFF,HEMOGRAM [HEME] MOTH@69904/22/17 09:00 Spironolactone [Aldactone] 25 mg PO DAILY 04/23/17 09:00 predniSONE 30 mg PO DAILY 04/26/17 07:00 CBC W/O DIFF,HEMOGRAM [HEME] MOTH@69904/26/17 09:00 predniSONE 20 mg PO DAILY 04/29/17 07:00 CBC W/O DIFF,HEMOGRAM [HEME] MOTH@69904/29/17 09:00 predniSONE 10 mg PO DAILY 05/03/17 07:00 CBC W/O DIFF,HEMOGRAM [HEME] MOTH@69905/06/17 07:00 CBC W/O DIFF,HEMOGRAM [HEME] MOTH@699 05/10/17 07:00 CBC W/O DIFF,HEMOGRAM [HEME] MOTH@0700 - Plan Plan:: Assessment/Plan: Acute: Mycoplasma Pneumonia on Levoquin Prednisone taper COPD Exacerbation - Resp distress - She has Advanced COPD - IV Solumedrol, Bronchodilators, IV Magnesium (then resume oral magnesium), and Supplemental O2 - Routine RT care Evaluate for PE with abrupt change in status; transfer to the ICU. Acute on Chronic Respiratory Failure - 2/2 Above - Currently on 3L NC from 1.5; extreme desaturation with exertion - Treat underlying cause Chronic: HTN Pulmonary Arterial Hypertension--->will need [facility] referral; decrease--> preload/VR Urinary Incontinence OA Migraines Anxiety and Depression Cachexia/Malnutrition Chronic Pain Syndrome-->narcotics requested, verify home meds before DC Plan: Change to MS tele D Dimer/ECG/Nebs/ Routine AM Labs Resume Home Meds PT/OT/RT consult Dietary Consult CM/SW for d/c planning; likely 04/22/17. Code status: 1 LOS>96 hours, slow response to therapy
[2017-04-21] MEDS: Levofloxacin/Dextrose 5%-Water 750 MG in Premix Bag 1 BAG IV SCH (11:42)
[2017-04-21] MEDS: Temazepam 7.5 MG Cap PO PRN (21:00)
[2017-04-22] MEDS: Codeine/Promethazine 10-6.25 MG/5 ML Syrup 5 ML UD Cup PO SCH ×4 (00:49→17:03)
[2017-04-22] MEDS: Levalbuterol HCl 1.25 MG/3 ML Neb INH SCH ×4 (05:57→20:53)
[2017-04-22] MEDS: predniSONE 20 MG Tab PO SCH (08:02)
[2017-04-22] MEDS: Spironolactone 25 MG Tab PO SCH (08:02)
[2017-04-22] MEDS: ALPRAZolam 1 MG Tab PO PRN ×2 (08:02→20:23)
[2017-04-22] MEDS: Acetaminophen/HYDROcodone 325-5 MG Tab PO PRN ×3 (08:02→21:27)
[2017-04-22] MEDS: Magnesium Oxide 400 MG Tab PO SCH (08:03)
[2017-04-22] MEDS: hydrALAZINE 10 MG Tab PO SCH ×2 (08:03→20:17)
[2017-04-22] MEDS: Enoxaparin 30 MG/0.3 ML Syringe SUBCUT SCH (08:03)
[2017-04-22] MEDS: Budesonide/Formoterol 80-4.5 MCG/Puff 6.9 GM Inhaler INH SCH ×2 (09:47→20:49)
[2017-04-22] MEDS: Nystatin Susp 100,000 Unit/ML 5 ML UD Cup PO SCH ×4 (11:47→20:18)
[2017-04-22] MEDS: Levofloxacin/Dextrose 5%-Water 750 MG in Premix Bag 1 BAG IV SCH (11:49)
--- NOTE | 2017-04-22 12:37 | PCM.PN ---
- General Info Date of Service: 04/22/17 Functional Status: Reports: pain controlled, tolerating diet, ambulating, other (desaturation with activity) - Review of Systems General: Reports: Weakness, Fatigue HEENT: Reports: no symptoms Pulmonary: Reports: shortness of breath Cardiovascular: Reports: Other (tachycardia) Gastrointestinal: Reports: No symptoms Genitourinary: Reports: no symptoms Musculoskeletal: Reports: no symptoms Skin: Reports: no symptoms Neurological: Reports: No Symptoms Psychiatric: Reports: no symptoms - Patient Data Vitals - most recent: Last Vital Signs Temp 36.8 C 04/22/17 11:46 Pulse 109 H 04/22/17 11:46 Resp 16 04/22/17 11:46 BP 138/91 H 04/22/17 11:46 Pulse Ox 89 L 04/22/17 11:46 Weight - most recent: 46.085 kg I&O - last 24 hours: Intake & Output 04/21/17 04/22/17 04/22/17 22:59 06:59 14:59 Intake Total 90 650 Balance 90 650 Lab Results last 24 hrs: Laboratory Results - last 24 hr 04/21/17 04/22/17 04/22/17 Range/Units 14:10 05:32 05:32 WBC 9.53 (3.98-10.04) K/mm3 RBC 4.57 (3.98-5.22) M/mm3 Hgb 13.3 (11.2-15.7) gm/L Hct 41.3 (34.1-44.9) % MCV 90.4 (79.4-94.8) fl MCH 29.1 (25.6-32.2) pg MCHC 32.2 (32.2-35.5) g/dl RDW Std Deviation 43.8 (36.4-46.3) fL Plt Count 254 (182-369) K/mm3 MPV 10.3 (9.4-12.3) fl Neut % (Auto) 65.2 (34.0-71.1) % Lymph % (Auto) 21.3 (19.3-51.7) % [place] % (Auto) 12.4 (4.7-12.5) % Eos % (Auto) 0.7 (0.7-5.8) Baso % (Auto) 0.1 (0.1-1.2) % Neut # (Auto) 6.21 H (1.56-6.13) K/mm3 Lymph # (Auto) 2.03 (1.18-3.74) K/mm3 [place] # (Auto) 1.18 H (0.24-0.36) K/mm3 Eos # (Auto) 0.07 (0.04-0.36) K/mm3 Baso # (Auto) 0.01 (0.01-0.08) K/mm3 Sodium 141 (136-145) mEq/L Potassium 3.4 L (3.5-5.1) mEq/L Chloride 101 (98-107) mEq/L Carbon Dioxide 36 H (21-32) mEq/L Anion Gap 7.4 (5-15) BUN 21 H (7-18) mg/dL Creatinine 0.8 (0.55-1.02) mg/dL Est Cr Clr Drug Dosing 59.85 mL/min Estimated GFR (MDRD) > 60 (>60) mL/min BUN/Creatinine Ratio 26.3 H (14-18) Glucose 98 (74-106) mg/dL Calcium 7.8 L (8.5-10.1) mg/dL B-Natriuretic Peptide 101 H (0-100) pg/mL Med Orders - Current: Current Medications Acetaminophen (Tylenol) 650 mg PO Q4H PRN PRN Reason: Pain (Mild 1-3)/fever Last Admin: 04/18/17 08:54 Dose: 650 mg Acetaminophen/Butalbital/Caffeine (Fioricet 325-50-40 Mg) 1 tab PO Q8H PRN PRN Reason: migraines Hydrocodone Bitart/Acetaminophen ([place]anan 325-5 Mg) 1 tab PO Q6H PRN PRN Reason: Pain (moderate 4-6) Last Admin: 04/22/17 08:02 Dose: 1 tab Albuterol (Proventil Neb Soln) 2.5 mg NEB Q4HRRT PRN PRN Reason: Shortness of Breath Last Admin: 04/17/17 11:59 Dose: 2.5 mg Alprazolam (Xanax) 1 mg PO BID PRN PRN Reason: ANXIETY Last Admin: 04/22/17 08:02 Dose: 1 mg Bisacodyl (Dulcolax) 5 mg PO DAILY PRN PRN Reason: Constipation Budesonide/Formoterol Fumarate (Symbicort 80-4.5 Mcg) 0 gm INH BID [facility] Last Admin: 04/22/17 09:47 Dose: 2 puff Enoxaparin Sodium (Lovenox) 30 mg SUBCUT DAILY [facility] Last Admin: 04/22/17 08:03 Dose: 30 mg Hydralazine HCl (Apresoline) 20 mg IVPUSH Q4H PRN PRN Reason: Hypertension Last Admin: 04/20/17 08:02 Dose: 20 mg Hydralazine HCl (Apresoline) 10 mg PO Q12HR [facility] Last Admin: 04/22/17 08:03 Dose: 10 mg Levofloxacin/Dextrose 750 mg/ (Premix) 150 mls @ 100 mls/hr IV Q24H [facility] Last Admin: 04/22/17 11:49 Dose: 100 mls/hr Levalbuterol HCl (Xopenex) 1.25 mg INH QIDRT [facility] Last Admin: 04/22/17 10:09 Dose: Not Given Magnesium Oxide (Magnesium Oxide) 400 mg PO DAILY [facility] Last Admin: 04/22/17 08:03 Dose: 400 mg Metoprolol Tartrate (Lopressor) 5 mg IVPUSH Q4H PRN PRN Reason: Tachycardia Last Admin: 04/20/17 16:00 Dose: 5 mg Nystatin (Mycostatin) 5 ml PO QID [facility] Last Admin: 04/22/17 11:47 Dose: 5 ml Ondansetron HCl (Zofran) 4 mg IV Q6H PRN PRN Reason: Nausea/Vomiting Polyethylene Glycol (Miralax) 17 gm PO DAILY PRN PRN Reason: Constipation Last Admin: 04/19/17 06:51 Dose: 17 gm Prednisone (Prednisone) 30 mg PO DAILY [facility] Stop: 04/25/17 09:01 Prednisone (Prednisone) 20 mg PO DAILY [facility] Stop: 04/28/17 09:01 Prednisone (Prednisone) 10 mg PO DAILY [facility] Stop: 05/01/17 09:01 Promethazine HCl/Codeine (Phenergan With Codeine) 10 ml PO Q6HR [facility] Last Admin: 04/22/17 11:48 Dose: 10 ml Senna/Docusate Sodium (Senna Plus) 1 tab PO BID PRN PRN Reason: Constipation Spironolactone (Aldactone) 25 mg PO DAILY [facility] Last Admin: 04/22/17 08:02 Dose: 25 mg Temazepam (Restoril) 7.5 mg PO BEDTIME PRN PRN Reason: Insomnia Last Admin: 04/21/17 21:00 Dose: 7.5 mg Discontinued Medications Acetaminophen/Butalbital/Caffeine (Fioricet 325-50-40 Mg) 2 tab PO Q6H PRN PRN Reason: migraines Last Admin: 04/16/17 18:47 Dose: 2 tab Hydrocodone Bitart/Acetaminophen ([place]anan 325-5 Mg) 1 tab PO Q6H PRN PRN Reason: Pain Hydrocodone Bitart/Acetaminophen ([place]anan 325-5 Mg) 1 tab PO Q4H PRN PRN Reason: Pain (moderate 4-6) Last Admin: 04/17/17 08:28 Dose: 1 tab Albuterol (Proventil Hfa) 0 gm INH BID PRN PRN Reason: Dyspnea Albuterol/Ipratropium (Duoneb 3.0-0.5 Mg/3 Ml) 3 ml NEB ONETIME ONE Stop: 04/15/17 09:25 Last Admin: 04/15/17 09:43 Dose: 3 ml Albuterol/Ipratropium (Duoneb 3.0-0.5 Mg/3 Ml) 3 ml NEB ONETIME ONE Stop: 04/15/17 11:01 Last Admin: 04/15/17 11:38 Dose: 3 ml Albuterol/Ipratropium (Duoneb 3.0-0.5 Mg/3 Ml) 3 ml INH Q4HR PRN PRN Reason: Shortness of Breath Albuterol/Ipratropium (Duoneb 3.0-0.5 Mg/3 Ml) 3 ml NEB Q4H PRN PRN Reason: Shortness Of Breath/wheezing Last Admin: 04/16/17 06:20 Dose: 3 ml Albuterol/Ipratropium (Duoneb 3.0-0.5 Mg/3 Ml) 3 ml NEB QIDRT [facility] Last Admin: 04/20/17 10:20 Dose: 3 ml Alprazolam (Xanax) 0.5 mg PO BID PRN PRN Reason: Anxiety Alprazolam (Xanax) 1 mg PO BID PRN PRN Reason: Anxiety Last Admin: 04/17/17 08:28 Dose: 1 mg Alprazolam (Xanax) 0.5 mg PO BID PRN PRN Reason: Anxiety Last Admin: 04/18/17 08:55 Dose: 0.5 mg Alprazolam (Xanax) 1 mg PO BID PRN PRN Reason: Anxiety Last Admin: 04/18/17 12:49 Dose: 1 mg Alprazolam (Xanax) 1 mg PO BID [facility] Last Admin: 04/19/17 08:59 Dose: 1 mg Fentanyl (Duragesic) 12 mcg TRDERM Q72H [facility] Last Admin: 04/17/17 12:30 Dose: 12 mcg Furosemide (Lasix) 10 mg IVPUSH NOW ONE Stop: 04/19/17 12:48 Last Admin: 04/19/17 13:47 Dose: 10 mg Furosemide (Lasix) 20 mg IVPUSH NOW ONE Stop: 04/20/17 14:04 Last Admin: 04/20/17 14:30 Dose: 20 mg Furosemide (Lasix) 20 mg IVPUSH NOW ONE Stop: 04/21/17 11:32 Last Admin: 04/21/17 11:42 Dose: 20 mg Hydromorphone HCl (Dilaudid) 1 mg IVPUSH ONETIME ONE Stop: 04/15/17 11:02 Last Admin: 04/15/17 11:23 Dose: 1 mg Magnesium Sulfate/Dextrose 1 (gm/ Premix) 100 mls @ 100 mls/hr IV ONETIME ONE Stop: 04/15/17 10:23 Last Admin: 04/15/17 09:41 Dose: 100 mls/hr Azithromycin 250 mg/ Sodium (Chloride) 250 mls @ 250 mls/hr IV Q24H [facility] Last Admin: 04/15/17 14:55 Dose: Not Given Promethazine HCl 12.5 mg/ (Sodium Chloride) 50.5 mls @ 100 mls/hr IV Q6H PRN PRN Reason: Nausea/Vomiting Azithromycin 250 mg/ Sodium (Chloride) 250 mls @ 250 mls/hr IV Q24H [facility] Last Admin: 04/16/17 14:56 Dose: 250 mls/hr Magnesium Sulfate 2 gm/ Premix 50 mls @ 25 mls/hr IV ONETIME ONE Stop: 04/16/17 20:46 Last Admin: 04/16/17 21:59 Dose: 25 mls/hr Levofloxacin/Dextrose 750 mg/ (Premix) 150 mls @ 100 mls/hr IV Q24H [facility] Last Admin: 04/17/17 10:57 Dose: 100 mls/hr Levofloxacin/Dextrose 750 mg/ (Premix) 150 mls @ 100 mls/hr IV Q48H [facility] Last Admin: 04/19/17 10:59 Dose: 100 mls/hr Sodium Chloride (Normal Saline) 100 mls @ 80 mls/hr IV ASDIRECTED [facility] Stop: 04/19/17 18:00 Last Admin: 04/19/17 14:21 Dose: 80 mls/hr Magnesium Sulfate 2 gm/ Premix 50 mls @ 25 mls/hr IV ONETIME ONE Stop: 04/19/17 18:02 Last Admin: 04/19/17 17:40 Dose: 25 mls/hr Iopamidol (Isovue-370 (76%)) 100 ml IVPUSH ONETIME ONE Stop: 04/19/17 13:26 Last Admin: 04/19/17 13:47 Dose: Not Given Iopamidol (Isovue-370 (76%)) 100 ml IVPUSH ONETIME ONE Stop: 04/19/17 13:52 Last Admin: 04/19/17 14:20 Dose: 60 ml Lorazepam (Ativan) 1 mg IVPUSH Q4H PRN PRN Reason: anxiety and SOB Magnesium Oxide (Magnesium Oxide) 400 mg PO ONETIME ONE Stop: 04/16/17 08:31 Last Admin: 04/16/17 09:09 Dose: 400 mg Magnesium Sulfate (Pharmacy To Dose - Magnesium Replacement) 1 dose .XX ASDIRECTED [facility] Methylprednisolone Sodium Succinate (Solu-Medrol) 125 mg IVPUSH ONETIME ONE Stop: 04/15/17 09:24 Last Admin: 04/15/17 09:33 Dose: 125 mg Methylprednisolone Sodium Succinate (Solu-Medrol) 125 mg IVPUSH Q8H [facility] Last Admin: 04/17/17 08:27 Dose: 125 mg Methylprednisolone Sodium Succinate (Solu-Medrol) 125 mg IVPUSH Q6H [facility] Last Admin: 04/19/17 06:14 Dose: 125 mg Methylprednisolone Sodium Succinate (Solu-Medrol) 40 mg IVPUSH Q6H [facility] Last Admin: 04/20/17 06:29 Dose: Not Given Miscellaneous Information (Remove Patch) 1 ea TRDERM Q72H [facility] Morphine Sulfate (Morphine) 1 mg IVPUSH Q4H PRN PRN Reason: Other Stop: 04/18/17 12:36 Last Admin: 04/15/17 20:16 Dose: 1 mg Morphine Sulfate (Morphine) 3 mg IVPUSH Q4H PRN PRN Reason: Other Stop: 04/18/17 12:36 Last Admin: 04/18/17 08:54 Dose: 3 mg Morphine Sulfate (Morphine) 4 mg IVPUSH ONETIME ONE Stop: 04/18/17 12:51 Last Admin: 04/18/17 12:50 Dose: 4 mg Morphine Sulfate (Morphine) 15 mg PO Q4H PRN PRN Reason: Pain Last Admin: 04/19/17 06:14 Dose: 15 mg Morphine Sulfate (Morphine) 15 mg PO Q8H PRN PRN Reason: Pain Nystatin (Mycostatin) 5 ml PO QID [facility] Last Admin: 04/19/17 08:59 Dose: 5 ml Pneumococcal Polyvalent Vaccine (Pneumovax 23) 0.5 ml IM .ONCE ONE Stop: 04/16/17 19:52 Potassium Chloride (Pharmacy To Dose - Potassium Replacement) 1 dose .XX ASDIRECTED [facility] Prednisone (Prednisone) 40 mg PO DAILY [facility] Stop: 04/22/17 09:01 Last Admin: 04/22/17 08:02 Dose: 40 mg Promethazine HCl/Codeine (Phenergan With Codeine) 10 ml PO Q6HR PRN PRN Reason: COUGH/Pain (moderate 4-6) Last Admin: 04/17/17 18:19 Dose: 10 ml Sodium Chloride (Saline Flush) 10 ml FLUSH ASDIRECTED PRN PRN Reason: Keep Vein Open Last Admin: 04/19/17 14:20 Dose: 10 ml Sodium Chloride (Saline Flush) 10 ml FLUSH ONETIME PRN PRN Reason: IV FLUSH Stop: 04/19/17 18:00 Temazepam (Restoril) 15 mg PO BEDTIME PRN PRN Reason: Sleep Last Admin: 04/17/17 21:39 Dose: 15 mg - Exam Quality Assessment: supplemental oxygen, DVT prophylaxis General: alert, oriented, cooperative, no acute distress HEENT: Pupils equal, Pupils reactive, EOMI Neck: supple, trachea midline, no JVD Lungs: Normal respiratory effort, Decreased breath sounds Cardiovascular: Regular Rate, Tachycardia Abdomen: bowel sounds present, soft, no tenderness, no distension (Female) Exam: Deferred Back Exam: Normal Inspection Extremities: no edema, normal pulses Skin: warm Neurological: no new focal deficit, normal speech Psy/Mental Status: alert, anxious, depressed - Problem List & Annotations (1) Mycoplasma pneumonia SNOMED Code(s): 82819331 Code(s): J15.7 - PNEUMONIA DUE TO MYCOPLASMA PNEUMONIAE Status: Acute Current Visit: Yes (2) COPD exacerbation SNOMED Code(s): 027661543, 313313069 Code(s): J44.1 - CHRONIC OBSTRUCTIVE PULMONARY DISEASE W (ACUTE) EXACERBATION Status: Acute Current Visit: Yes - Problem List Review Problem List Initiated/Reviewed/Updated: Yes - My Orders Last 24 Hours: My Active Orders 04/21/17 13:42 MISC TEST Routine 04/22/17 09:00 Spironolactone [Aldactone] 25 mg PO DAILY 04/22/17 11:30 Nystatin [Mycostatin] 5 ml PO QID 04/23/17 09:00 predniSONE 30 mg PO DAILY 04/26/17 07:00 CBC W/O DIFF,HEMOGRAM [HEME] MOTH@00 04/26/17 09:00 predniSONE 20 mg PO DAILY 04/29/17 07:00 CBC W/O DIFF,HEMOGRAM [HEME] MOTH@0700 04/29/17 09:00 predniSONE 10 mg PO DAILY 05/03/17 07:00 CBC W/O DIFF,HEMOGRAM [HEME] MOTH@0700 05/06/17 07:00 CBC W/O DIFF,HEMOGRAM [HEME] MOTH@0700 05/10/17 07:00 CBC W/O DIFF,HEMOGRAM [HEME] MOTH@0700 - Plan Plan:: Assessment/Plan: Acute: Mycoplasma Pneumonia on Levoquin Prednisone taper COPD Exacerbation - Resp distress - She has Advanced COPD - IV Solumedrol, Bronchodilators, IV Magnesium (then resume oral magnesium), and Supplemental O2 - Routine RT care Evaluate for PE with abrupt change in status; transfer to the ICU. Acute on Chronic Respiratory Failure - 2/2 Above - Currently on 3L NC from 1.5; extreme desaturation with exertion - Treat underlying cause Chronic: HTN Pulmonary Arterial Hypertension--->will need [facility] referral; decrease--> preload/VR Urinary Incontinence OA Migraines Anxiety and Depression Cachexia/Malnutrition Chronic Pain Syndrome-->narcotics requested, verify home meds before DC Plan: Change to MS tele D Dimer/ECG/Nebs/ Routine AM Labs Resume Home Meds PT/OT/RT consult Dietary Consult CM/SW for d/c planning; likely 04/22/17. Code status: 1 LOS>96 hours, slow response to therapy; DC 24-48 hours
[2017-04-22] MEDS: Metoprolol Tartrate 5 MG/5 ML SDV IVPUSH PRN ×2 (13:12→20:18)
[2017-04-22] MEDS ORDERED: Atenolol 25 MG Tab PO SCH ×2 (13:45→14:00)
[2017-04-22] MEDS: Potassium Chloride 10% 20 MEQ/15 ML Soln 30 ML UD Cup PO SCH ×2 (13:47→20:18)
[2017-04-22] MEDS: Atenolol 25 MG Tab PO SCH (20:17)
[2017-04-22] MEDS: Temazepam 7.5 MG Cap PO PRN (20:23)
[2017-04-23] MEDS: Codeine/Promethazine 10-6.25 MG/5 ML Syrup 5 ML UD Cup PO SCH ×3 (01:50→11:56)
[2017-04-23] MEDS: Levalbuterol HCl 1.25 MG/3 ML Neb INH SCH ×2 (06:14→09:52)
--- NOTE | 2017-04-23 07:07 | PCM.DCSUM1 ---
<Hortensia Muller M - Last Filed: 04/23/17 08:27> Discharge Summary - Hospital Course Free Text/Narrative:: This is a 41-year-old white female with past medical history of hypertension, chronic respiratory failure-O2 dependent, history of urinary incontinence, osteoarthritis, migraines, anxiety and depression who comes to the emergency department with complains of increasing shortness of breath that started last night. Patient carries a history of advanced COPD. She is known to me from last admission. The patient is currently on 1-1.5 L nasal cannula at home unfortunately she had to increase her oxygen to 3 L to improve her air. Her documented O2 saturation was 79% on presentation to ED. She is compliant with her routine medications. Patient reports sick contact with her grandchildren that might have set off her acute attack. Patient admits to productive cough but no more than usual. She denies any fever or chills. Her initial workup in emergency department shows a CBC remarkable for WBC of 13.5, and neutrophils count of 10.85. Her chemistry is remarkable for glucose of 128. Her chest x-ray shows diffuse emphysematous change. Patient received initial treatment emergency department before she was sent to the floor for further management. She is being admitted for COPD exacerbation. She was treated with IV abx, IV steroid, transitioned to oral prednisone taper, aggressive pulmonary toilet. Supplemental oxygen was eventually able to wean to baseline. Resp viral panel did return positive for human rhinovirus/ enterovirus. She will be discharged home today with follow up with PCP within one week. Recommend f/up with Pulmologist within 2-4 weeks. - Discharge Data Discharge Date: 04/23/17 (admit date04/15/17) Discharge Disposition: Home, Self-Care 01 Condition: Good - Patient Summary/Data Operative Procedure(s) Performed: None Complications: None Consults: Consultations 04/18/17 18:06 Consult to Physician [CONS] Routine 04/19/17 12:05 Consult to Pulmonary Rehabilitation [CONS] Routine 04/19/17 12:36 Consult for Substance Abuse [CONS] Routine Labs Pending at D/C: None Recommended Follow-up Testing/Procedures: supplement oxygen per nasal canula at 2-3 Liters at all times, portable oxygen nebulizer meds as ordered (has home nebulizer machine) Follow up with PCP, Liza Floberg [employer] SHEARING SUPERVISOR within one week of discharge Follow up with Pulmologist within 2-4 weeks of discharge -[facility] for consult---Pulmonology as discussed with Dr. Mcclure and with PCP, Liza Fernandez-- Planned Operative Procedure(s) after DC: None Hospital Course: As above - Patient Instructions Diet: Usual Diet as Tolerated, Low Sodium Activity: As Tolerated (ambulate 4 times per day) Showering/Bathing: May Shower Notify Provider of: Fever, Increased Pain, Nausea and/or Vomiting (worsening of cough, shortness of breath or chest pain) - Discharge Plan Prescriptions/Med Rec: Codeine/Promethazine [Phenergan with Codeine] 10 ml PO Q6HR #240 ml Nystatin [Mycostatin] 5 ml PO QID #240 ml Prednisone [IJD: Prednisone] 10 mg PO DAILY #30 tab Triamterene/Hydrochlorothiazid [Triamterene-HCTZ 37.5-25 MG] 1 each PO DAILY # 30 capsule Home Medications: Home Meds Albuterol Sulfate [Albuterol Sulfate HFA] 2 puff INH BID PRN 02/25/14 [History] Budesonide/Formoterol Fumarate [Symbicort 80-4.5 Mcg Inhaler] 10.2 gm IH BID [History] Albuterol/Ipratropium [DuoNeb 3.0-0.5 MG/3 ML] 3 ml INH Q4HR PRN 11/03/14 [ History] Acetaminophen/HYDROcodone [[place] 325-5 MG] 1 tab PO Q6H PRN #15 tablet 03/07/17 [Rx] ALPRAZolam [Xanax] 1 mg PO BID PRN 04/15/17 [History] Magnesium Oxide 400 mg PO DAILY 04/15/17 [History] Codeine/Promethazine [Phenergan with Codeine] 10 ml PO Q6HR #240 ml 04/23/17 [Rx ] Nystatin [Mycostatin] 5 ml PO QID #240 ml 04/23/17 [Rx] Prednisone [IJD: Prednisone] 10 mg PO DAILY #30 tab 04/23/17 [Rx] Triamterene/Hydrochlorothiazid [Triamterene-HCTZ 37.5-25 MG] 1 each PO DAILY # 30 capsule 04/23/17 [Rx] Patient Handouts: Smoking Cessation, Tips for Success, Bfzd-aw-[id number], Shortness of Breath, [id number], How to Use a Nebulizer, Chronic Obstructive Pulmonary Disease, [id number], Oxygen Use at Home, Shortness of Breath Referrals: Liza Fernandez, SHIPPING ROOM SUPERVISOR [Primary Care Provider] - (Patient would like to make own appointment. Please make appointment with Liza Fernandez in 1 week.) Dionte Neumann MD [Physician] - 06/24/17 3:00 pm (This appt. is here at the [facility] where the clinic is. Please arrive at 2:30 for check in.) Jody Granger MD [Ordering Only Provider] - (patient will f/u and make this appt. she has already called and is on a list) - Discharge Summary/Plan Comment DC Time >30 min.: Yes (40 min) - General Info Date of Service: 04/23/17 Admission Dx/Problem (Free Text: COPD Exacerbation Functional Status: Reports: Pain Controlled, Tolerating Diet, Ambulating, Urinating. Denies: New Symptoms - Review of Systems General: Reports: Weakness (generalized) HEENT: Reports: No Symptoms Pulmonary: Reports: Shortness of Breath (chronic- at baseline). Denies: Hemoptysis Cardiovascular: Reports: Dyspnea on Exertion (chronic - at baseline) Gastrointestinal: Reports: No Symptoms Genitourinary: Reports: No Symptoms Musculoskeletal: Reports: No Symptoms Neurological: Reports: No Symptoms Psychiatric: Reports: No Symptoms - Patient Data Vitals - Most Recent: Last Vital Signs Temp 97.7 F 04/23/17 01:55 Pulse 80 04/23/17 01:55 Resp 16 04/23/17 01:55 BP 144/84 H 04/23/17 01:55 Pulse Ox 90 L 04/23/17 01:55 Weight - Most Recent: 45.767 kg I&O - Last 24 hours: Intake & Output 04/22/17 04/23/17 04/23/17 22:59 06:59 14:59 Intake Total 1140 1480 Output Total 1100 1575 Balance 40 -95 Med Orders - Current: Current Medications Acetaminophen (Tylenol) 650 mg PO Q4H PRN PRN Reason: Pain (Mild 1-3)/fever Last Admin: 04/18/17 08:54 Dose: 650 mg Acetaminophen/Butalbital/Caffeine (Fioricet 325-50-40 Mg) 1 tab PO Q8H PRN PRN Reason: migraines Hydrocodone Bitart/Acetaminophen ([place] 325-5 Mg) 1 tab PO Q6H PRN PRN Reason: Pain (moderate 4-6) Last Admin: 04/22/17 21:27 Dose: 1 tab Albuterol (Proventil Neb Soln) 2.5 mg NEB Q4HRRT PRN PRN Reason: Shortness of Breath Last Admin: 04/17/17 11:59 Dose: 2.5 mg Alprazolam (Xanax) 1 mg PO BID PRN PRN Reason: ANXIETY Last Admin: 04/22/17 20:23 Dose: 1 mg Atenolol (Tenormin) 25 mg PO BID [facility] Last Admin: 04/22/17 20:17 Dose: 25 mg Bisacodyl (Dulcolax) 5 mg PO DAILY PRN PRN Reason: Constipation Budesonide/Formoterol Fumarate (Symbicort 80-4.5 Mcg) 0 gm INH BID [facility] Last Admin: 04/22/17 20:49 Dose: 1 puff Enoxaparin Sodium (Lovenox) 30 mg SUBCUT DAILY [facility] Last Admin: 04/22/17 08:03 Dose: 30 mg Hydralazine HCl (Apresoline) 20 mg IVPUSH Q4H PRN PRN Reason: Hypertension Last Admin: 04/20/17 08:02 Dose: 20 mg Hydralazine HCl (Apresoline) 10 mg PO Q12HR [facility] Last Admin: 04/22/17 20:17 Dose: 10 mg Levofloxacin/Dextrose 750 mg/ (Premix) 150 mls @ 100 mls/hr IV Q24H [facility] Last Admin: 04/22/17 11:49 Dose: 100 mls/hr Levalbuterol HCl (Xopenex) 1.25 mg INH QIDRT [facility] Last Admin: 04/23/17 06:14 Dose: Not Given Magnesium Oxide (Magnesium Oxide) 400 mg PO DAILY [facility] Last Admin: 04/22/17 08:03 Dose: 400 mg Metoprolol Tartrate (Lopressor) 5 mg IVPUSH Q4H PRN PRN Reason: Tachycardia Last Admin: 04/22/17 20:18 Dose: 5 mg Nystatin (Mycostatin) 5 ml PO QID SHAUN Last Admin: 04/22/17 20:18 Dose: 5 ml Ondansetron HCl (Zofran) 4 mg IV Q6H PRN PRN Reason: Nausea/Vomiting Polyethylene Glycol (Miralax) 17 gm PO DAILY PRN PRN Reason: Constipation Last Admin: 04/19/17 06:51 Dose: 17 gm Prednisone (Prednisone) 30 mg PO DAILY [facility] Stop: 04/25/17 09:01 Prednisone (Prednisone) 20 mg PO DAILY [facility] Stop: 04/28/17 09:01 Prednisone (Prednisone) 10 mg PO DAILY [facility] Stop: 05/01/17 09:01 Promethazine HCl/Codeine (Phenergan With Codeine) 10 ml PO Q6HR [facility] Last Admin: 04/23/17 06:42 Dose: 10 ml Senna/Docusate Sodium (Senna Plus) 1 tab PO BID PRN PRN Reason: Constipation Spironolactone (Aldactone) 25 mg PO DAILY [facility] Last Admin: 04/22/17 08:02 Dose: 25 mg Temazepam (Restoril) 7.5 mg PO BEDTIME PRN PRN Reason: Insomnia Last Admin: 04/22/17 20:23 Dose: 7.5 mg Discontinued Medications Acetaminophen/Butalbital/Caffeine (Fioricet 325-50-40 Mg) 2 tab PO Q6H PRN PRN Reason: migraines Last Admin: 04/16/17 18:47 Dose: 2 tab Hydrocodone Bitart/Acetaminophen ([place] 325-5 Mg) 1 tab PO Q6H PRN PRN Reason: Pain Hydrocodone Bitart/Acetaminophen ([place] 325-5 Mg) 1 tab PO Q4H PRN PRN Reason: Pain (moderate 4-6) Last Admin: 04/17/17 08:28 Dose: 1 tab Albuterol (Proventil Hfa) 0 gm INH BID PRN PRN Reason: Dyspnea Albuterol/Ipratropium (Duoneb 3.0-0.5 Mg/3 Ml) 3 ml NEB ONETIME ONE Stop: 04/15/17 09:25 Last Admin: 04/15/17 09:43 Dose: 3 ml Albuterol/Ipratropium (Duoneb 3.0-0.5 Mg/3 Ml) 3 ml NEB ONETIME ONE Stop: 04/15/17 11:01 Last Admin: 04/15/17 11:38 Dose: 3 ml Albuterol/Ipratropium (Duoneb 3.0-0.5 Mg/3 Ml) 3 ml INH Q4HR PRN PRN Reason: Shortness of Breath Albuterol/Ipratropium (Duoneb 3.0-0.5 Mg/3 Ml) 3 ml NEB Q4H PRN PRN Reason: Shortness Of Breath/wheezing Last Admin: 04/16/17 06:20 Dose: 3 ml Albuterol/Ipratropium (Duoneb 3.0-0.5 Mg/3 Ml) 3 ml NEB QIDRT [facility] Last Admin: 04/20/17 10:20 Dose: 3 ml Alprazolam (Xanax) 0.5 mg PO BID PRN PRN Reason: Anxiety Alprazolam (Xanax) 1 mg PO BID PRN PRN Reason: Anxiety Last Admin: 04/17/17 08:28 Dose: 1 mg Alprazolam (Xanax) 0.5 mg PO BID PRN PRN Reason: Anxiety Last Admin: 04/18/17 08:55 Dose: 0.5 mg Alprazolam (Xanax) 1 mg PO BID PRN PRN Reason: Anxiety Last Admin: 04/18/17 12:49 Dose: 1 mg Alprazolam (Xanax) 1 mg PO BID [facility] Last Admin: 04/19/17 08:59 Dose: 1 mg Atenolol (Tenormin) 25 mg PO BID [facility] Atenolol (Tenormin) 25 mg PO BID [facility] Last Admin: 04/22/17 14:19 Dose: Not Given Fentanyl (Duragesic) 12 mcg TRDERM Q72H [facility] Last Admin: 04/17/17 12:30 Dose: 12 mcg Furosemide (Lasix) 10 mg IVPUSH NOW ONE Stop: 04/19/17 12:48 Last Admin: 04/19/17 13:47 Dose: 10 mg Furosemide (Lasix) 20 mg IVPUSH NOW ONE Stop: 04/20/17 14:04 Last Admin: 04/20/17 14:30 Dose: 20 mg Furosemide (Lasix) 20 mg IVPUSH NOW ONE Stop: 04/21/17 11:32 Last Admin: 04/21/17 11:42 Dose: 20 mg Hydromorphone HCl (Dilaudid) 1 mg IVPUSH ONETIME ONE Stop: 04/15/17 11:02 Last Admin: 04/15/17 11:23 Dose: 1 mg Magnesium Sulfate/Dextrose 1 (gm/ Premix) 100 mls @ 100 mls/hr IV ONETIME ONE Stop: 04/15/17 10:23 Last Admin: 04/15/17 09:41 Dose: 100 mls/hr Azithromycin 250 mg/ Sodium (Chloride) 250 mls @ 250 mls/hr IV Q24H [facility] Last Admin: 04/15/17 14:55 Dose: Not Given Promethazine HCl 12.5 mg/ (Sodium Chloride) 50.5 mls @ 100 mls/hr IV Q6H PRN PRN Reason: Nausea/Vomiting Azithromycin 250 mg/ Sodium (Chloride) 250 mls @ 250 mls/hr IV Q24H [facility] Last Admin: 04/16/17 14:56 Dose: 250 mls/hr Magnesium Sulfate 2 gm/ Premix 50 mls @ 25 mls/hr IV ONETIME ONE Stop: 04/16/17 20:46 Last Admin: 04/16/17 21:59 Dose: 25 mls/hr Levofloxacin/Dextrose 750 mg/ (Premix) 150 mls @ 100 mls/hr IV Q24H [facility] Last Admin: 04/17/17 10:57 Dose: 100 mls/hr Levofloxacin/Dextrose 750 mg/ (Premix) 150 mls @ 100 mls/hr IV Q48H [facility] Last Admin: 04/19/17 10:59 Dose: 100 mls/hr Sodium Chloride (Normal Saline) 100 mls @ 80 mls/hr IV ASDIRECTED [facility] Stop: 04/19/17 18:00 Last Admin: 04/19/17 14:21 Dose: 80 mls/hr Magnesium Sulfate 2 gm/ Premix 50 mls @ 25 mls/hr IV ONETIME ONE Stop: 04/19/17 18:02 Last Admin: 04/19/17 17:40 Dose: 25 mls/hr Iopamidol (Isovue-370 (76%)) 100 ml IVPUSH ONETIME ONE Stop: 04/19/17 13:26 Last Admin: 04/19/17 13:47 Dose: Not Given Iopamidol (Isovue-370 (76%)) 100 ml IVPUSH ONETIME ONE Stop: 04/19/17 13:52 Last Admin: 04/19/17 14:20 Dose: 60 ml Lorazepam (Ativan) 1 mg IVPUSH Q4H PRN PRN Reason: anxiety and SOB Magnesium Oxide (Magnesium Oxide) 400 mg PO ONETIME ONE Stop: 04/16/17 08:31 Last Admin: 04/16/17 09:09 Dose: 400 mg Magnesium Sulfate (Pharmacy To Dose - Magnesium Replacement) 1 dose .XX ASDIRECTED [facility] Methylprednisolone Sodium Succinate (Solu-Medrol) 125 mg IVPUSH ONETIME ONE Stop: 04/15/17 09:24 Last Admin: 04/15/17 09:33 Dose: 125 mg Methylprednisolone Sodium Succinate (Solu-Medrol) 125 mg IVPUSH Q8H [facility] Last Admin: 04/17/17 08:27 Dose: 125 mg Methylprednisolone Sodium Succinate (Solu-Medrol) 125 mg IVPUSH Q6H [facility] Last Admin: 04/19/17 06:14 Dose: 125 mg Methylprednisolone Sodium Succinate (Solu-Medrol) 40 mg IVPUSH Q6H [facility] Last Admin: 04/20/17 06:29 Dose: Not Given Miscellaneous Information (Remove Patch) 1 ea TRDERM Q72H [facility] Morphine Sulfate (Morphine) 1 mg IVPUSH Q4H PRN PRN Reason: Other Stop: 04/18/17 12:36 Last Admin: 04/15/17 20:16 Dose: 1 mg Morphine Sulfate (Morphine) 3 mg IVPUSH Q4H PRN PRN Reason: Other Stop: 04/18/17 12:36 Last Admin: 04/18/17 08:54 Dose: 3 mg Morphine Sulfate (Morphine) 4 mg IVPUSH ONETIME ONE Stop: 04/18/17 12:51 Last Admin: 04/18/17 12:50 Dose: 4 mg Morphine Sulfate (Morphine) 15 mg PO Q4H PRN PRN Reason: Pain Last Admin: 04/19/17 06:14 Dose: 15 mg Morphine Sulfate (Morphine) 15 mg PO Q8H PRN PRN Reason: Pain Nystatin (Mycostatin) 5 ml PO QID SHAUN Last Admin: 04/19/17 08:59 Dose: 5 ml Pneumococcal Polyvalent Vaccine (Pneumovax 23) 0.5 ml IM .ONCE ONE Stop: 04/16/17 19:52 Potassium Chloride (Pharmacy To Dose - Potassium Replacement) 1 dose .XX ASDIRECTED [facility] Potassium Chloride (Potassium Chloride) 40 meq PO BID SHAUN Stop: 04/22/17 21:01 Last Admin: 04/22/17 20:18 Dose: 40 meq Prednisone (Prednisone) 40 mg PO DAILY [facility] Stop: 04/22/17 09:01 Last Admin: 04/22/17 08:02 Dose: 40 mg Promethazine HCl/Codeine (Phenergan With Codeine) 10 ml PO Q6HR PRN PRN Reason: COUGH/Pain (moderate 4-6) Last Admin: 04/17/17 18:19 Dose: 10 ml Sodium Chloride (Saline Flush) 10 ml FLUSH ASDIRECTED PRN PRN Reason: Keep Vein Open Last Admin: 04/19/17 14:20 Dose: 10 ml Sodium Chloride (Saline Flush) 10 ml FLUSH ONETIME PRN PRN Reason: IV FLUSH Stop: 04/19/17 18:00 Temazepam (Restoril) 15 mg PO BEDTIME PRN PRN Reason: Sleep Last Admin: 04/17/17 21:39 Dose: 15 mg - Exam Quality Assessment: Reports: supplemental oxygen, DVT prophylaxis General: Reports: alert, oriented, cooperative, no acute distress HEENT: Reports: Pupils equal, Pupils reactive, EOMI, Mucous membr. moist/pink Neck: Reports: supple Lungs: Reports: Normal Respiratory Effort, Decreased Breath Sounds (throughout) Cardiovascular: Reports: Regular Rate, Regular Rhythm, Other (distant heart tones) Abdomen: Reports: bowel sounds present, soft, no tenderness (Female) Exam: Deferred Rectal (Female) Exam: Deferred Extremities: Reports: no edema Neurological: Reports: no new focal deficit Psy/Mental Status: Reports: alert, normal affect, normal mood *Q Meaningful Use (DIS) - VTE *Q VTE Criteria *Q: - Stroke *Q Stroke Criteria *Q: - AMI *Q AMI Criteria *Q: <Wendy Mcclure - Last Filed: 05/02/17 18:01> Discharge Summary - Hospital Course Free Text/Narrative:: See above for DC summary; follow up as scheduled. - Discharge Diagnosis/Problem(s) (1) Mycoplasma pneumonia SNOMED Code(s): 22963527 ICD Code: J15.7 - PNEUMONIA DUE TO MYCOPLASMA PNEUMONIAE Status: Acute (2) COPD exacerbation SNOMED Code(s): 321885198, 055363444 ICD Code: J44.1 - CHRONIC OBSTRUCTIVE PULMONARY DISEASE W (ACUTE) EXACERBATION Status: Acute - Patient Summary/Data Consults: Consultations 04/18/17 18:06 Consult to Physician [CONS] Routine 04/19/17 12:05 Consult to Pulmonary Rehabilitation [CONS] Routine 04/19/17 12:36 Consult for Substance Abuse [CONS] Routine - Patient Data Vitals - Most Recent: Last Vital Signs Temp 36.4 C 04/23/17 08:59 Pulse 93 04/23/17 08:59 Resp 20 04/23/17 08:59 BP 121/77 04/23/17 08:59 Pulse Ox 94 L 04/23/17 08:59 Med Orders - Current: Current Medications Discontinued Medications Acetaminophen (Tylenol) 650 mg PO Q4H PRN PRN Reason: Pain (Mild 1-3)/fever Last Admin: 04/18/17 08:54 Dose: 650 mg Acetaminophen/Butalbital/Caffeine (Fioricet 325-50-40 Mg) 2 tab PO Q6H PRN PRN Reason: migraines Last Admin: 04/16/17 18:47 Dose: 2 tab Acetaminophen/Butalbital/Caffeine (Fioricet 325-50-40 Mg) 1 tab PO Q8H PRN PRN Reason: migraines Hydrocodone Bitart/Acetaminophen ([place] 325-5 Mg) 1 tab PO Q6H PRN PRN Reason: Pain Hydrocodone Bitart/Acetaminophen ([place] 325-5 Mg) 1 tab PO Q4H PRN PRN Reason: Pain (moderate 4-6) Last Admin: 04/17/17 08:28 Dose: 1 tab Hydrocodone Bitart/Acetaminophen ([place] 325-5 Mg) 1 tab PO Q6H PRN PRN Reason: Pain (moderate 4-6) Last Admin: 04/23/17 08:45 Dose: 1 tab Albuterol (Proventil Hfa) 0 gm INH BID PRN PRN Reason: Dyspnea Albuterol (Proventil Neb Soln) 2.5 mg NEB Q4HRRT PRN PRN Reason: Shortness of Breath Last Admin: 04/17/17 11:59 Dose: 2.5 mg Albuterol/Ipratropium (Duoneb 3.0-0.5 Mg/3 Ml) 3 ml NEB ONETIME ONE Stop: 04/15/17 09:25 Last Admin: 04/15/17 09:43 Dose: 3 ml Albuterol/Ipratropium (Duoneb 3.0-0.5 Mg/3 Ml) 3 ml NEB ONETIME ONE Stop: 04/15/17 11:01 Last Admin: 04/15/17 11:38 Dose: 3 ml Albuterol/Ipratropium (Duoneb 3.0-0.5 Mg/3 Ml) 3 ml INH Q4HR PRN PRN Reason: Shortness of Breath Albuterol/Ipratropium (Duoneb 3.0-0.5 Mg/3 Ml) 3 ml NEB Q4H PRN PRN Reason: Shortness Of Breath/wheezing Last Admin: 04/16/17 06:20 Dose: 3 ml Albuterol/Ipratropium (Duoneb 3.0-0.5 Mg/3 Ml) 3 ml NEB QIDRT [facility] Last Admin: 04/20/17 10:20 Dose: 3 ml Alprazolam (Xanax) 0.5 mg PO BID PRN PRN Reason: Anxiety Alprazolam (Xanax) 1 mg PO BID PRN PRN Reason: Anxiety Last Admin: 04/17/17 08:28 Dose: 1 mg Alprazolam (Xanax) 0.5 mg PO BID PRN PRN Reason: Anxiety Last Admin: 04/18/17 08:55 Dose: 0.5 mg Alprazolam (Xanax) 1 mg PO BID PRN PRN Reason: Anxiety Last Admin: 04/18/17 12:49 Dose: 1 mg Alprazolam (Xanax) 1 mg PO BID [facility] Last Admin: 04/19/17 08:59 Dose: 1 mg Alprazolam (Xanax) 1 mg PO BID PRN PRN Reason: ANXIETY Last Admin: 04/23/17 08:45 Dose: 1 mg Atenolol (Tenormin) 25 mg PO BID SHAUN Atenolol (Tenormin) 25 mg PO BID [facility] Last Admin: 04/22/17 14:19 Dose: Not Given Atenolol (Tenormin) 25 mg PO BID [facility] Last Admin: 04/23/17 08:41 Dose: 25 mg Bisacodyl (Dulcolax) 5 mg PO DAILY PRN PRN Reason: Constipation Budesonide/Formoterol Fumarate (Symbicort 80-4.5 Mcg) 0 gm INH BID [facility] Last Admin: 04/23/17 08:27 Dose: 2 puff Enoxaparin Sodium (Lovenox) 30 mg SUBCUT DAILY [facility] Last Admin: 04/23/17 08:41 Dose: 30 mg Fentanyl (Duragesic) 12 mcg TRDERM Q72H [facility] Last Admin: 04/17/17 12:30 Dose: 12 mcg Furosemide (Lasix) 10 mg IVPUSH NOW ONE Stop: 04/19/17 12:48 Last Admin: 04/19/17 13:47 Dose: 10 mg Furosemide (Lasix) 20 mg IVPUSH NOW ONE Stop: 04/20/17 14:04 Last Admin: 04/20/17 14:30 Dose: 20 mg Furosemide (Lasix) 20 mg IVPUSH NOW ONE Stop: 04/21/17 11:32 Last Admin: 04/21/17 11:42 Dose: 20 mg Hydralazine HCl (Apresoline) 20 mg IVPUSH Q4H PRN PRN Reason: Hypertension Last Admin: 04/20/17 08:02 Dose: 20 mg Hydralazine HCl (Apresoline) 10 mg PO Q12HR [facility] Last Admin: 04/23/17 08:40 Dose: 10 mg Hydromorphone HCl (Dilaudid) 1 mg IVPUSH ONETIME ONE Stop: 04/15/17 11:02 Last Admin: 04/15/17 11:23 Dose: 1 mg Magnesium Sulfate/Dextrose 1 (gm/ Premix) 100 mls @ 100 mls/hr IV ONETIME ONE Stop: 04/15/17 10:23 Last Admin: 04/15/17 09:41 Dose: 100 mls/hr Azithromycin 250 mg/ Sodium (Chloride) 250 mls @ 250 mls/hr IV Q24H [facility] Last Admin: 04/15/17 14:55 Dose: Not Given Promethazine HCl 12.5 mg/ (Sodium Chloride) 50.5 mls @ 100 mls/hr IV Q6H PRN PRN Reason: Nausea/Vomiting Azithromycin 250 mg/ Sodium (Chloride) 250 mls @ 250 mls/hr IV Q24H [facility] Last Admin: 04/16/17 14:56 Dose: 250 mls/hr Magnesium Sulfate 2 gm/ Premix 50 mls @ 25 mls/hr IV ONETIME ONE Stop: 04/16/17 20:46 Last Admin: 04/16/17 21:59 Dose: 25 mls/hr Levofloxacin/Dextrose 750 mg/ (Premix) 150 mls @ 100 mls/hr IV Q24H [facility] Last Admin: 04/17/17 10:57 Dose: 100 mls/hr Levofloxacin/Dextrose 750 mg/ (Premix) 150 mls @ 100 mls/hr IV Q48H [facility] Last Admin: 04/19/17 10:59 Dose: 100 mls/hr Sodium Chloride (Normal Saline) 100 mls @ 80 mls/hr IV ASDIRECTED [facility] Stop: 04/19/17 18:00 Last Admin: 04/19/17 14:21 Dose: 80 mls/hr Magnesium Sulfate 2 gm/ Premix 50 mls @ 25 mls/hr IV ONETIME ONE Stop: 04/19/17 18:02 Last Admin: 04/19/17 17:40 Dose: 25 mls/hr Levofloxacin/Dextrose 750 mg/ (Premix) 150 mls @ 100 mls/hr IV Q24H [facility] Last Admin: 04/23/17 10:40 Dose: 100 mls/hr Iopamidol (Isovue-370 (76%)) 100 ml IVPUSH ONETIME ONE Stop: 04/19/17 13:26 Last Admin: 04/19/17 13:47 Dose: Not Given Iopamidol (Isovue-370 (76%)) 100 ml IVPUSH ONETIME ONE Stop: 04/19/17 13:52 Last Admin: 04/19/17 14:20 Dose: 60 ml Levalbuterol HCl (Xopenex) 1.25 mg INH QIDRT [facility] Last Admin: 04/23/17 09:52 Dose: Not Given Lorazepam (Ativan) 1 mg IVPUSH Q4H PRN PRN Reason: anxiety and SOB Magnesium Oxide (Magnesium Oxide) 400 mg PO DAILY [facility] Last Admin: 04/23/17 08:41 Dose: 400 mg Magnesium Oxide (Magnesium Oxide) 400 mg PO ONETIME ONE Stop: 04/16/17 08:31 Last Admin: 04/16/17 09:09 Dose: 400 mg Magnesium Sulfate (Pharmacy To Dose - Magnesium Replacement) 1 dose .XX ASDIRECTED [facility] Methylprednisolone Sodium Succinate (Solu-Medrol) 125 mg IVPUSH ONETIME ONE Stop: 04/15/17 09:24 Last Admin: 04/15/17 09:33 Dose: 125 mg Methylprednisolone Sodium Succinate (Solu-Medrol) 125 mg IVPUSH Q8H [facility] Last Admin: 04/17/17 08:27 Dose: 125 mg Methylprednisolone Sodium Succinate (Solu-Medrol) 125 mg IVPUSH Q6H [facility] Last Admin: 04/19/17 06:14 Dose: 125 mg Methylprednisolone Sodium Succinate (Solu-Medrol) 40 mg IVPUSH Q6H [facility] Last Admin: 04/20/17 06:29 Dose: Not Given Metoprolol Tartrate (Lopressor) 5 mg IVPUSH Q4H PRN PRN Reason: Tachycardia Last Admin: 04/22/17 20:18 Dose: 5 mg Miscellaneous Information (Remove Patch) 1 ea TRDERM Q72H [facility] Morphine Sulfate (Morphine) 1 mg IVPUSH Q4H PRN PRN Reason: Other Stop: 04/18/17 12:36 Last Admin: 04/15/17 20:16 Dose: 1 mg Morphine Sulfate (Morphine) 3 mg IVPUSH Q4H PRN PRN Reason: Other Stop: 04/18/17 12:36 Last Admin: 04/18/17 08:54 Dose: 3 mg Morphine Sulfate (Morphine) 4 mg IVPUSH ONETIME ONE Stop: 04/18/17 12:51 Last Admin: 04/18/17 12:50 Dose: 4 mg Morphine Sulfate (Morphine) 15 mg PO Q4H PRN PRN Reason: Pain Last Admin: 04/19/17 06:14 Dose: 15 mg Morphine Sulfate (Morphine) 15 mg PO Q8H PRN PRN Reason: Pain Nystatin (Mycostatin) 5 ml PO QID [facility] Last Admin: 04/19/17 08:59 Dose: 5 ml Nystatin (Mycostatin) 5 ml PO QID [facility] Last Admin: 04/23/17 13:57 Dose: 5 ml Ondansetron HCl (Zofran) 4 mg IV Q6H PRN PRN Reason: Nausea/Vomiting Pneumococcal Polyvalent Vaccine (Pneumovax 23) 0.5 ml IM .ONCE ONE Stop: 04/16/17 19:52 Pneumococcal Polyvalent Vaccine (Pneumovax 23) 0.5 ml IM .ONCE ONE Stop: 04/23/17 11:49 Last Admin: 04/23/17 11:55 Dose: 0.5 ml Polyethylene Glycol (Miralax) 17 gm PO DAILY PRN PRN Reason: Constipation Last Admin: 04/19/17 06:51 Dose: 17 gm Potassium Chloride (Pharmacy To Dose - Potassium Replacement) 1 dose .[facility] [facility] Potassium Chloride (Potassium Chloride) 40 meq PO BID [facility] Stop: 04/22/17 21:01 Last Admin: 04/22/17 20:18 Dose: 40 meq Prednisone (Prednisone) 40 mg PO DAILY [facility] Stop: 04/22/17 09:01 Last Admin: 04/22/17 08:02 Dose: 40 mg Prednisone (Prednisone) 30 mg PO DAILY [facility] Stop: 04/25/17 09:01 Last Admin: 04/23/17 08:41 Dose: 30 mg Prednisone (Prednisone) 20 mg PO DAILY [facility] Stop: 04/28/17 09:01 Prednisone (Prednisone) 10 mg PO DAILY [facility] Stop: 05/01/17 09:01 Promethazine HCl/Codeine (Phenergan With Codeine) 10 ml PO Q6HR PRN PRN Reason: COUGH/Pain (moderate 4-6) Last Admin: 04/17/17 18:19 Dose: 10 ml Promethazine HCl/Codeine (Phenergan With Codeine) 10 ml PO Q6HR [facility] Last Admin: 04/23/17 11:56 Dose: 10 ml Senna/Docusate Sodium (Senna Plus) 1 tab PO BID PRN PRN Reason: Constipation Sodium Chloride (Saline Flush) 10 ml FLUSH ASDIRECTED PRN PRN Reason: Keep Vein Open Last Admin: 04/19/17 14:20 Dose: 10 ml Sodium Chloride (Saline Flush) 10 ml FLUSH ONETIME PRN PRN Reason: IV FLUSH Stop: 04/19/17 18:00 Spironolactone (Aldactone) 25 mg PO DAILY [facility] Last Admin: 04/23/17 08:41 Dose: 25 mg Temazepam (Restoril) 15 mg PO BEDTIME PRN PRN Reason: Sleep Last Admin: 04/17/17 21:39 Dose: 15 mg Temazepam (Restoril) 7.5 mg PO BEDTIME PRN PRN Reason: Insomnia Last Admin: 04/22/17 20:23 Dose: 7.5 mg *Q Meaningful Use (DIS) - VTE *Q VTE Criteria *Q: - Stroke *Q Stroke Criteria *Q: - AMI *Q AMI Criteria *Q:
[2017-04-23] MEDS: Budesonide/Formoterol 80-4.5 MCG/Puff 6.9 GM Inhaler INH SCH (08:27)
[2017-04-23] MEDS: Nystatin Susp 100,000 Unit/ML 5 ML UD Cup PO SCH ×2 (08:40→13:57)
[2017-04-23] MEDS: hydrALAZINE 10 MG Tab PO SCH (08:40)
[2017-04-23] MEDS: Enoxaparin 30 MG/0.3 ML Syringe SUBCUT SCH (08:41)
[2017-04-23] MEDS: Atenolol 25 MG Tab PO SCH (08:41)
[2017-04-23] MEDS: Magnesium Oxide 400 MG Tab PO SCH (08:41)
[2017-04-23] MEDS: Spironolactone 25 MG Tab PO SCH (08:41)
[2017-04-23] MEDS: Acetaminophen/HYDROcodone 325-5 MG Tab PO PRN (08:45)
[2017-04-23] MEDS: ALPRAZolam 1 MG Tab PO PRN (08:45)
[2017-04-23] MEDS ORDERED: predniSONE 10 MG Tab PO SCH (09:00)
[2017-04-23 09:01] VITALS: BP 121/77
[2017-04-23] MEDS: Levofloxacin/Dextrose 5%-Water 750 MG in Premix Bag 1 BAG IV SCH (10:40)
[2017-04-23] MEDS ORDERED: Pneumococcal Polyvalent-23 Vaccine 0.5 ML SDV IM ONE (11:48)
[2017-04-26] MEDS ORDERED: predniSONE 20 MG Tab PO SCH (09:00)
[2017-04-29] MEDS ORDERED: predniSONE 10 MG Tab PO SCH (09:00)
--- NOTE | 2017-05-05 14:36 | PCM.PN ---
- General Info Date of Service: 04/17/17 Functional Status: Reports: Pain Controlled, Tolerating Diet - Review of Systems General: Reports: No Symptoms HEENT: Reports: No Symptoms Pulmonary: Reports: No Symptoms Cardiovascular: Reports: No Symptoms Gastrointestinal: Reports: No Symptoms Genitourinary: Reports: No Symptoms Musculoskeletal: Reports: No Symptoms Skin: Reports: No Symptoms Neurological: Reports: No Symptoms Psychiatric: Reports: No Symptoms - Patient Data Vitals - Most Recent: Last Vital Signs Temp 36.4 C 04/23/17 08:59 Pulse 93 04/23/17 08:59 Resp 20 04/23/17 08:59 BP 121/77 04/23/17 08:59 Pulse Ox 94 L 04/23/17 08:59 Weight - Most Recent: 45.767 kg Med Orders - Current: Current Medications Discontinued Medications Acetaminophen (Tylenol) 650 mg PO Q4H PRN PRN Reason: Pain (Mild 1-3)/fever Last Admin: 04/18/17 08:54 Dose: 650 mg Acetaminophen/Butalbital/Caffeine (Fioricet 325-50-40 Mg) 2 tab PO Q6H PRN PRN Reason: migraines Last Admin: 04/16/17 18:47 Dose: 2 tab Acetaminophen/Butalbital/Caffeine (Fioricet 325-50-40 Mg) 1 tab PO Q8H PRN PRN Reason: migraines Hydrocodone Bitart/Acetaminophen ([place] 325-5 Mg) 1 tab PO Q6H PRN PRN Reason: Pain Hydrocodone Bitart/Acetaminophen ([place] 325-5 Mg) 1 tab PO Q4H PRN PRN Reason: Pain (moderate 4-6) Last Admin: 04/17/17 08:28 Dose: 1 tab Hydrocodone Bitart/Acetaminophen ([place] 325-5 Mg) 1 tab PO Q6H PRN PRN Reason: Pain (moderate 4-6) Last Admin: 04/23/17 08:45 Dose: 1 tab Albuterol (Proventil Hfa) 0 gm INH BID PRN PRN Reason: Dyspnea Albuterol (Proventil Neb Soln) 2.5 mg NEB Q4HRRT PRN PRN Reason: Shortness of Breath Last Admin: 04/17/17 11:59 Dose: 2.5 mg Albuterol/Ipratropium (Duoneb 3.0-0.5 Mg/3 Ml) 3 ml NEB ONETIME ONE Stop: 04/15/17 09:25 Last Admin: 04/15/17 09:43 Dose: 3 ml Albuterol/Ipratropium (Duoneb 3.0-0.5 Mg/3 Ml) 3 ml NEB ONETIME ONE Stop: 04/15/17 11:01 Last Admin: 04/15/17 11:38 Dose: 3 ml Albuterol/Ipratropium (Duoneb 3.0-0.5 Mg/3 Ml) 3 ml INH Q4HR PRN PRN Reason: Shortness of Breath Albuterol/Ipratropium (Duoneb 3.0-0.5 Mg/3 Ml) 3 ml NEB Q4H PRN PRN Reason: Shortness Of Breath/wheezing Last Admin: 04/16/17 06:20 Dose: 3 ml Albuterol/Ipratropium (Duoneb 3.0-0.5 Mg/3 Ml) 3 ml NEB QIDRT [facility] Last Admin: 04/20/17 10:20 Dose: 3 ml Alprazolam (Xanax) 0.5 mg PO BID PRN PRN Reason: Anxiety Alprazolam (Xanax) 1 mg PO BID PRN PRN Reason: Anxiety Last Admin: 04/17/17 08:28 Dose: 1 mg Alprazolam (Xanax) 0.5 mg PO BID PRN PRN Reason: Anxiety Last Admin: 04/18/17 08:55 Dose: 0.5 mg Alprazolam (Xanax) 1 mg PO BID PRN PRN Reason: Anxiety Last Admin: 04/18/17 12:49 Dose: 1 mg Alprazolam (Xanax) 1 mg PO BID [facility] Last Admin: 04/19/17 08:59 Dose: 1 mg Alprazolam (Xanax) 1 mg PO BID PRN PRN Reason: ANXIETY Last Admin: 04/23/17 08:45 Dose: 1 mg Atenolol (Tenormin) 25 mg PO BID [facility] Atenolol (Tenormin) 25 mg PO BID [facility] Last Admin: 04/22/17 14:19 Dose: Not Given Atenolol (Tenormin) 25 mg PO BID [facility] Last Admin: 04/23/17 08:41 Dose: 25 mg Bisacodyl (Dulcolax) 5 mg PO DAILY PRN PRN Reason: Constipation Budesonide/Formoterol Fumarate (Symbicort 80-4.5 Mcg) 0 gm INH BID [facility] Last Admin: 04/23/17 08:27 Dose: 2 puff Enoxaparin Sodium (Lovenox) 30 mg SUBCUT DAILY [facility] Last Admin: 04/23/17 08:41 Dose: 30 mg Fentanyl (Duragesic) 12 mcg TRDERM Q72H [facility] Last Admin: 04/17/17 12:30 Dose: 12 mcg Furosemide (Lasix) 10 mg IVPUSH NOW ONE Stop: 04/19/17 12:48 Last Admin: 04/19/17 13:47 Dose: 10 mg Furosemide (Lasix) 20 mg IVPUSH NOW ONE Stop: 04/20/17 14:04 Last Admin: 04/20/17 14:30 Dose: 20 mg Furosemide (Lasix) 20 mg IVPUSH NOW ONE Stop: 04/21/17 11:32 Last Admin: 04/21/17 11:42 Dose: 20 mg Hydralazine HCl (Apresoline) 20 mg IVPUSH Q4H PRN PRN Reason: Hypertension Last Admin: 04/20/17 08:02 Dose: 20 mg Hydralazine HCl (Apresoline) 10 mg PO Q12HR [facility] Last Admin: 04/23/17 08:40 Dose: 10 mg Hydromorphone HCl (Dilaudid) 1 mg IVPUSH ONETIME ONE Stop: 04/15/17 11:02 Last Admin: 04/15/17 11:23 Dose: 1 mg Magnesium Sulfate/Dextrose 1 (gm/ Premix) 100 mls @ 100 mls/hr IV ONETIME ONE Stop: 04/15/17 10:23 Last Admin: 04/15/17 09:41 Dose: 100 mls/hr Azithromycin 250 mg/ Sodium (Chloride) 250 mls @ 250 mls/hr IV Q24H [facility] Last Admin: 04/15/17 14:55 Dose: Not Given Promethazine HCl 12.5 mg/ (Sodium Chloride) 50.5 mls @ 100 mls/hr IV Q6H PRN PRN Reason: Nausea/Vomiting Azithromycin 250 mg/ Sodium (Chloride) 250 mls @ 250 mls/hr IV Q24H [facility] Last Admin: 04/16/17 14:56 Dose: 250 mls/hr Magnesium Sulfate 2 gm/ Premix 50 mls @ 25 mls/hr IV ONETIME ONE Stop: 04/16/17 20:46 Last Admin: 04/16/17 21:59 Dose: 25 mls/hr Levofloxacin/Dextrose 750 mg/ (Premix) 150 mls @ 100 mls/hr IV Q24H [facility] Last Admin: 04/17/17 10:57 Dose: 100 mls/hr Levofloxacin/Dextrose 750 mg/ (Premix) 150 mls @ 100 mls/hr IV Q48H [facility] Last Admin: 04/19/17 10:59 Dose: 100 mls/hr Sodium Chloride (Normal Saline) 100 mls @ 80 mls/hr IV ASDIRECTED [facility] Stop: 04/19/17 18:00 Last Admin: 04/19/17 14:21 Dose: 80 mls/hr Magnesium Sulfate 2 gm/ Premix 50 mls @ 25 mls/hr IV ONETIME ONE Stop: 04/19/17 18:02 Last Admin: 04/19/17 17:40 Dose: 25 mls/hr Levofloxacin/Dextrose 750 mg/ (Premix) 150 mls @ 100 mls/hr IV Q24H [facility] Last Admin: 04/23/17 10:40 Dose: 100 mls/hr Iopamidol (Isovue-370 (76%)) 100 ml IVPUSH ONETIME ONE Stop: 04/19/17 13:26 Last Admin: 04/19/17 13:47 Dose: Not Given Iopamidol (Isovue-370 (76%)) 100 ml IVPUSH ONETIME ONE Stop: 04/19/17 13:52 Last Admin: 04/19/17 14:20 Dose: 60 ml Levalbuterol HCl (Xopenex) 1.25 mg INH QIDRT [facility] Last Admin: 04/23/17 09:52 Dose: Not Given Lorazepam (Ativan) 1 mg IVPUSH Q4H PRN PRN Reason: anxiety and SOB Magnesium Oxide (Magnesium Oxide) 400 mg PO DAILY [facility] Last Admin: 04/23/17 08:41 Dose: 400 mg Magnesium Oxide (Magnesium Oxide) 400 mg PO ONETIME ONE Stop: 04/16/17 08:31 Last Admin: 04/16/17 09:09 Dose: 400 mg Magnesium Sulfate (Pharmacy To Dose - Magnesium Replacement) 1 dose .XX ASDIRECTED [facility] Methylprednisolone Sodium Succinate (Solu-Medrol) 125 mg IVPUSH ONETIME ONE Stop: 04/15/17 09:24 Last Admin: 04/15/17 09:33 Dose: 125 mg Methylprednisolone Sodium Succinate (Solu-Medrol) 125 mg IVPUSH Q8H [facility] Last Admin: 04/17/17 08:27 Dose: 125 mg Methylprednisolone Sodium Succinate (Solu-Medrol) 125 mg IVPUSH Q6H [facility] Last Admin: 04/19/17 06:14 Dose: 125 mg Methylprednisolone Sodium Succinate (Solu-Medrol) 40 mg IVPUSH Q6H [facility] Last Admin: 04/20/17 06:29 Dose: Not Given Metoprolol Tartrate (Lopressor) 5 mg IVPUSH Q4H PRN PRN Reason: Tachycardia Last Admin: 04/22/17 20:18 Dose: 5 mg Miscellaneous Information (Remove Patch) 1 ea TRDERM Q72H [facility] Morphine Sulfate (Morphine) 1 mg IVPUSH Q4H PRN PRN Reason: Other Stop: 04/18/17 12:36 Last Admin: 04/15/17 20:16 Dose: 1 mg Morphine Sulfate (Morphine) 3 mg IVPUSH Q4H PRN PRN Reason: Other Stop: 04/18/17 12:36 Last Admin: 04/18/17 08:54 Dose: 3 mg Morphine Sulfate (Morphine) 4 mg IVPUSH ONETIME ONE Stop: 04/18/17 12:51 Last Admin: 04/18/17 12:50 Dose: 4 mg Morphine Sulfate (Morphine) 15 mg PO Q4H PRN PRN Reason: Pain Last Admin: 04/19/17 06:14 Dose: 15 mg Morphine Sulfate (Morphine) 15 mg PO Q8H PRN PRN Reason: Pain Nystatin (Mycostatin) 5 ml PO QID [facility] Last Admin: 04/19/17 08:59 Dose: 5 ml Nystatin (Mycostatin) 5 ml PO QID [facility] Last Admin: 04/23/17 13:57 Dose: 5 ml Ondansetron HCl (Zofran) 4 mg IV Q6H PRN PRN Reason: Nausea/Vomiting Pneumococcal Polyvalent Vaccine (Pneumovax 23) 0.5 ml IM .ONCE ONE Stop: 04/16/17 19:52 Pneumococcal Polyvalent Vaccine (Pneumovax 23) 0.5 ml IM .ONCE ONE Stop: 04/23/17 11:49 Last Admin: 04/23/17 11:55 Dose: 0.5 ml Polyethylene Glycol (Miralax) 17 gm PO DAILY PRN PRN Reason: Constipation Last Admin: 04/19/17 06:51 Dose: 17 gm Potassium Chloride (Pharmacy To Dose - Potassium Replacement) 1 dose .XX ASDIRECTED [facility] Potassium Chloride (Potassium Chloride) 40 meq PO BID [facility] Stop: 04/22/17 21:01 Last Admin: 04/22/17 20:18 Dose: 40 meq Prednisone (Prednisone) 40 mg PO DAILY [facility] Stop: 04/22/17 09:01 Last Admin: 04/22/17 08:02 Dose: 40 mg Prednisone (Prednisone) 30 mg PO DAILY [facility] Stop: 04/25/17 09:01 Last Admin: 04/23/17 08:41 Dose: 30 mg Prednisone (Prednisone) 20 mg PO DAILY [facility] Stop: 04/28/17 09:01 Prednisone (Prednisone) 10 mg PO DAILY [facility] Stop: 05/01/17 09:01 Promethazine HCl/Codeine (Phenergan With Codeine) 10 ml PO Q6HR PRN PRN Reason: COUGH/Pain (moderate 4-6) Last Admin: 04/17/17 18:19 Dose: 10 ml Promethazine HCl/Codeine (Phenergan With Codeine) 10 ml PO Q6HR [facility] Last Admin: 04/23/17 11:56 Dose: 10 ml Senna/Docusate Sodium (Senna Plus) 1 tab PO BID PRN PRN Reason: Constipation Sodium Chloride (Saline Flush) 10 ml FLUSH ASDIRECTED PRN PRN Reason: Keep Vein Open Last Admin: 04/19/17 14:20 Dose: 10 ml Sodium Chloride (Saline Flush) 10 ml FLUSH ONETIME PRN PRN Reason: IV FLUSH Stop: 04/19/17 18:00 Spironolactone (Aldactone) 25 mg PO DAILY [facility] Last Admin: 04/23/17 08:41 Dose: 25 mg Temazepam (Restoril) 15 mg PO BEDTIME PRN PRN Reason: Sleep Last Admin: 04/17/17 21:39 Dose: 15 mg Temazepam (Restoril) 7.5 mg PO BEDTIME PRN PRN Reason: Insomnia Last Admin: 04/22/17 20:23 Dose: 7.5 mg - Exam Quality Assessment: DVT Prophylaxis General: Alert, Oriented HEENT: Pupils Equal, Pupils Reactive, EOMI Neck: Supple, Trachea Midline Lungs: Normal Respiratory Effort Cardiovascular: Regular Rate, Regular Rhythm GI/Abdominal Exam: Normal Bowel Sounds, Soft, Non-Tender, No Organomegaly, No Distention (Female) Exam: Deferred Back Exam: Normal Inspection Extremities: Normal Inspection Skin: Warm Neurological: No New Focal Deficit Psy/Mental Status: Alert, Normal Affect, Normal Mood - Problem List & Annotations (1) Mycoplasma pneumonia SNOMED Code(s): 36520995 Code(s): J15.7 - PNEUMONIA DUE TO MYCOPLASMA PNEUMONIAE Status: Acute (2) COPD exacerbation SNOMED Code(s): 136492248, 912609691 Code(s): J44.1 - CHRONIC OBSTRUCTIVE PULMONARY DISEASE W (ACUTE) EXACERBATION Status: Acute - Problem List Review Problem List Initiated/Reviewed/Updated: Yes - Plan Plan:: Assessment/Plan: Acute: Mycoplasma Pneumonia on Levoquin Prednisone taper COPD Exacerbation - Resp distress - She has Advanced COPD - IV Solumedrol, Bronchodilators, IV Magnesium (then resume oral magnesium), and Supplemental O2 - Routine RT care Evaluate for PE with abrupt change in status; transfer to the ICU. Acute on Chronic Respiratory Failure - 2/2 Above - Currently on 3L NC from 1.5; extreme desaturation with exertion - Treat underlying cause Chronic: HTN Pulmonary Arterial Hypertension--->will need [facility] referral; decrease--> preload/VR Urinary Incontinence OA Migraines Anxiety and Depression Cachexia/Malnutrition Chronic Pain Syndrome-->narcotics requested, verify home meds before DC Plan: Change to MS tele D Dimer/ECG/Nebs/ Routine AM Labs Resume Home Meds PT/OT/RT consult Dietary Consult CM/SW for d/c planning; likely 04/22/17. Code status: 1 LOS>96 hours, slow response to therapy; DC 24-48 hours
== END 2017-04-23 15:25 | disposition home or self-care (01) | DRG 190 ==
LOC: SUPCPDRO 09:13 → JD.ED 09:13 → JD.MS 12:31 → UNDOADMIN 12:31 → JD.MS 12:54 → JD.ICU 04-19 10:52 → JD.MS 04-21 15:14
PROVIDERS: ADMIT Internal Medicine; ATTEND Internal Medicine
DX: J44.0 Chronic obstructive pulmonary disease with (acute) lower respiratory infection (principal); J15.7 Pneumonia due to Mycoplasma pneumoniae; J96.20 Acute and chronic respiratory failure, unspecified whether with hypoxia or hypercapnia; R64 Cachexia; J44.1 Chronic obstructive pulmonary disease with (acute) exacerbation; Z87.891 Personal history of nicotine dependence; B97.10 Unspecified enterovirus as the cause of diseases classified elsewhere; I27.2 Other secondary pulmonary hypertension; I10 Essential (primary) hypertension; G43.909 Migraine, unspecified, not intractable, without status migrainosus; M19.90 Unspecified osteoarthritis, unspecified site; F32.9 Major depressive disorder, single episode, unspecified; F41.9 Anxiety disorder, unspecified; R32 Unspecified urinary incontinence; G89.4 Chronic pain syndrome; Z99.81 Dependence on supplemental oxygen; Z79.899 Other long term (current) drug therapy; Z96.619 Presence of unspecified artificial shoulder joint
CPT/HCPCS: 36415; 71020; 80053; 85025; 94640; 94664; 96365; 96375; 99285; J1170; J2930; J3475; J7050; 36600; 71275; 71275-26; 80048; 82803; 83735; 83880; 84484; 85379; 86140; 86738; 87486; 87581; 87633; 87798; 90732; 93005; 94760; 94761; 97162-GP; 97165-GO; 97535-GO; 99223; 99231; 99232; 99239; A9270; A9270-GY; J0360; J0456; J1650; J1940; J1956; J2270; J2920; J3490; J7030; Q9967

== ENCOUNTER 2017-07-28 18:45 | Observation (INO) | payer MEDICAID ==
[2017-07-28] MEDS ORDERED: Albuterol/Ipratropium 3.0-0.5 MG/3 ML Neb Soln NEB ONE (19:09)
[2017-07-28] MEDS ORDERED: methylPREDNISolone Sodium Succinate 125 MG/2 ML SDV IVPUSH ONE (19:11)
[2017-07-28] MEDS ORDERED: HYDROmorphone 1 MG/ML Syringe IVPUSH ONE (19:11)
--- NOTE | 2017-07-28 19:33 | EDM.PDOC ---
ED HPI GENERAL MEDICAL PROBLEM - General Chief Complaint: Respiratory Problem Stated Complaint: SOB CHEST PAIN Time Seen by Provider: 07/28/17 19:00 Source of Information: Reports: Patient History Limitations: Reports: No Limitations - History of Present Illness INITIAL COMMENTS - FREE TEXT/NARRATIVE: 51-year-old female presents for evaluation and treatment of worsening shortness of breath, chest pain and a cough. Patient reports that her symptoms started about 1 week ago. Reports that her symptoms worsened today after cardiac rehabilitation. Patient has COPD and is chronically on 4 L nasal cannula with activity and about 2 L nasal cannula at rest. She has had to increase this to 4- 5 L at rest. She reports that she has chest pain across her chest and it feels tight. States she has been coughing up some green sputum. No earaches, shortness sore throat, fevers, nausea, vomiting or abdominal pain. She reports that she did have some diarrhea yesterday. Patient reports that her family has been ill with flulike symptoms. She did get her flu shot this year. No recent travel. Chest Pain Score (Numeric/FACES): 8 - Related Data Allergies Allergy/AdvReac Type Severity Reaction Status Date / Time No Known Allergies Allergy Verified 07/22/17 12:27 Home Meds: Home Meds Albuterol Sulfate [Albuterol Sulfate HFA] 2 puff INH BID PRN 02/25/14 [History] Budesonide/Formoterol Fumarate [Symbicort 80-4.5 Mcg Inhaler] 10.2 gm IH BID [History] Albuterol/Ipratropium [DuoNeb 3.0-0.5 MG/3 ML] 3 ml INH Q4HR PRN 11/03/14 [ History] ALPRAZolam [Xanax] 1 mg PO BID PRN 04/15/17 [History] Magnesium Oxide 400 mg PO DAILY 04/15/17 [History] Triamterene/Hydrochlorothiazid [Triamterene-HCTZ 37.5-25 MG] 1 each PO DAILY # 30 capsule 04/23/17 [Rx] Hydrocodone/Acetaminophen [Hydrocodon-Acetaminophn 10-325] 1 tab PO TID PRN [History] Past Medical History Cardiovascular History: Reports: Hypertension Respiratory History: Reports: COPD Other Respiratory History: end stage COPD, pt is Oxygen dependent Gastrointestinal History: Reports: Colon Polyp Genitourinary History: Reports: Renal Calculus, Urinary Incontinence 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: Musculoskeletal History: Reports: Arthritis Other Musculoskeletal History: c/o back pain Neurological History: Reports: Migraines Psychiatric History: Reports: Anxiety, Depression Endocrine/Metabolic History: Reports: Osteoporosis - Infectious Disease History Infectious Disease History: Reports: Chicken Pox - Past Surgical History Female Surgical History: Reports: D&C, Hysterectomy Endocrine Surgical History: Reports: None Musculoskeletal Surgical History: Reports: Shoulder Replacement Dermatological Surgical History: Reports: None Social & Family History - Family History Family Medical History: Noncontributory - Tobacco Use Smoking Status *Q: Former Smoker Years of Tobacco use: 15 Packs/Tins Daily: 0.5 Used Tobacco, but Quit: Yes Month Tobacco Last Used: 2015 Second Hand Smoke Exposure: No - Caffeine Use Caffeine Use: Reports: None - Alcohol Use Days Per Week of Alcohol Use: 0 Number of Drinks Per Day: 1 Total Drinks Per Week: 0 - Recreational Drug Use Recreational Drug Use: No Drug Use in Last 12 Months: Yes Recreational Drug Type: Reports: Marijuana/Hashish Recreational Drug Use Frequency: Weekly - Living Situation & Occupation Living situation: Reports: Single, with Family (Son) Occupation: Unemployed ED ROS GENERAL - Review of Systems Review Of Systems: See Below Constitutional: Denies: Fever HEENT: Denies: Ear Pain, Throat Pain Respiratory: Reports: Shortness of Breath, Cough, Sputum Cardiovascular: Reports: Chest Pain GI/Abdominal: Reports: Diarrhea (yesterday; none today). Denies: Abdominal Pain , Nausea, Vomiting ED EXAM, GENERAL - Physical Exam Exam: See Below Exam Limited By: No Limitations General Appearance: Alert, WD/WN, Anxious, Mild Distress, Thin Ears: Normal External Exam Nose: Normal Inspection Throat/Mouth: Normal Inspection, Normal Lips, Normal Voice, No Airway Compromise Neck: Normal Inspection Respiratory/Chest: Decreased Breath Sounds, Wheezing, Accessory Muscle Use, Other (tachypnea) Cardiovascular: Normal Peripheral Pulses, No Murmur, Tachycardia Neurological: Alert, Oriented, Normal Cognition Psychiatric: Anxious Skin Exam: Warm, Dry, Normal Color EKG INTERPRETATION EKG Date: 07/28/17 Time: 18:55 Rate (Beats/Min): 102 [place]: Normal P-Wave: Present QRS: Normal ST-T: Normal QT: Normal EKG Interpretation Comments: Sinus tachycardia at 102 bpm. No acute changes. No LAD, NO LVH. Reviewed by myself and Dr. Greenberg.. Course - Vital Signs Last Recorded V/S: Last Vital Signs Temp 36.2 C 07/28/17 18:51 Pulse 106 H 07/28/17 18:51 Resp 19 07/28/17 18:51 BP 143/113 H 07/28/17 18:51 Pulse Ox 88 L 07/28/17 19:09 - Orders/Labs/Meds Orders: Active Orders 24 hr Category Date Time Status Cardiac Monitoring [RC] . DIRECTED Care 07/28/17 19:09 Active EKG Documentation Completion [RC] ASDIRECTED Care 07/28/17 19:09 Active RT Aerosol Therapy [RC] ASDIRECTED Care 07/28/17 19:09 Active Chest 1V Frontal [CR] Stat Exams 07/28/17 19:09 Taken CULTURE BLOOD [BC] Stat Lab 07/28/17 19:35 Received CULTURE BLOOD [BC] Stat Lab 07/28/17 19:45 Received Blood Culture x2 Reflex Set [OM.PC] Stat Oth 07/28/17 19:21 Ordered EKG 12 Lead [EK] Stat Ther 07/28/17 19:09 Ordered Labs: Laboratory Tests 07/28/17 07/28/17 07/28/17 Range/Units 18:50 18:50 18:50 WBC 10.79 H (3.98-10.04) K/mm3 RBC 5.00 (3.98-5.22) M/mm3 Hgb 14.5 (11.2-15.7) gm/L Hct 42.5 (34.1-44.9) % MCV 85.0 (79.4-94.8) fl MCH 29.0 (25.6-32.2) pg MCHC 34.1 (32.2-35.5) g/dl RDW Std Deviation 39.6 (36.4-46.3) fL Plt Count 264 (182-369) K/mm3 MPV 10.6 (9.4-12.3) fl Neutrophils % (Manual) 74 H (40-60) % Band Neutrophils % 4 (0-10) % Lymphocytes % (Manual) 11 L (20-40) % Atypical Lymphs % 7 % Monocytes % (Manual) 2 (2-10) % Eosinophils % (Manual) 1 (0.7-5.8) % Basophils % (Manual) 1 (0.1-1.2) Toxic Granulation Moderate Platelet Estimate Adequate Plt Morphology Comment Normal RBC Morph Comment Normal Puncture Site ABG pH (7.35-7.45) ABG pCO2 (35.0-45.0) mmHg ABG pO2 (80.0-100.0) mmHg ABG HCO3 (22.0-26.0) meq/L ABG O2 Saturation (96.0-97.0) % ABG Base Excess (-2-2.0) A-a Gradient mmHg O2 Delivery Device Oxygen Flow Rate FiO2 (21.00-100.00) % Sodium 144 (136-145) mEq/L Potassium 3.5 (3.5-5.1) mEq/L Chloride 102 (98-107) mEq/L Carbon Dioxide 32 (21-32) mEq/L Anion Gap 13.5 (5-15) BUN 9 (7-18) mg/dL Creatinine 1.0 (0.55-1.02) mg/dL Est Cr Clr Drug Dosing 48.54 mL/min Estimated GFR (MDRD) 58 (>60) mL/min BUN/Creatinine Ratio 9.0 L (14-18) Glucose 120 H (74-106) mg/dL Lactic Acid (0.4-2.0) mmol/L Calcium 9.5 (8.5-10.1) mg/dL Magnesium 1.6 L (1.8-2.4) mg/dl Total Bilirubin 0.4 (0.2-1.0) mg/dL AST 22 (15-37) U/L ALT 21 (14-59) U/L Alkaline Phosphatase 91 (46-116) U/L Troponin I < 0.017 (0.00-0.056) ng/mL C-Reactive Protein 0.7 (<1.0) mg/dL Total Protein 8.0 (6.4-8.2) g/dl Albumin 3.9 (3.4-5.0) g/dl Globulin 4.1 gm/dL Albumin/Globulin Ratio 1.0 (1-2) 07/28/17 07/28/17 Range/Units 19:35 20:28 WBC (3.98-10.04) K/mm3 RBC (3.98-5.22) M/mm3 Hgb (11.2-15.7) gm/L Hct (34.1-44.9) % MCV (79.4-94.8) fl MCH (25.6-32.2) pg MCHC (32.2-35.5) g/dl RDW Std Deviation (36.4-46.3) fL Plt Count (182-369) K/mm3 MPV (9.4-12.3) fl Neutrophils % (Manual) (40-60) % Band Neutrophils % (0-10) % Lymphocytes % (Manual) (20-40) % Atypical Lymphs % % Monocytes % (Manual) (2-10) % Eosinophils % (Manual) (0.7-5.8) % Basophils % (Manual) (0.1-1.2) Toxic Granulation Platelet Estimate Plt Morphology Comment RBC Morph Comment Puncture Site Rt radial ABG pH 7.37 (7.35-7.45) ABG pCO2 55.8 H (35.0-45.0) mmHg ABG pO2 87.0 (80.0-100.0) mmHg ABG HCO3 31.1 H (22.0-26.0) meq/L ABG O2 Saturation 97.1 H (96.0-97.0) % ABG Base Excess 4.8 H (-2-2.0) A-a Gradient 99 mmHg O2 Delivery Device Nasal cannula Oxygen Flow Rate 5.0 FiO2 40.00 (21.00-100.00) % Sodium (136-145) mEq/L Potassium (3.5-5.1) mEq/L Chloride (98-107) mEq/L Carbon Dioxide (21-32) mEq/L Anion Gap (5-15) BUN (7-18) mg/dL Creatinine (0.55-1.02) mg/dL Est Cr Clr Drug Dosing mL/min Estimated GFR (MDRD) (>60) mL/min BUN/Creatinine Ratio (14-18) Glucose (74-106) mg/dL Lactic Acid 0.9 (0.4-2.0) mmol/L Calcium (8.5-10.1) mg/dL Magnesium (1.8-2.4) mg/dl Total Bilirubin (0.2-1.0) mg/dL AST (15-37) U/L ALT (14-59) U/L Alkaline Phosphatase (46-116) U/L Troponin I (0.00-0.056) ng/mL C-Reactive Protein (<1.0) mg/dL Total Protein (6.4-8.2) g/dl Albumin (3.4-5.0) g/dl Globulin gm/dL Albumin/Globulin Ratio (1-2) Meds: Medications Discontinued Medications Generic Name Dose Route Start Last Admin Trade Name Apryl PRN Reason Stop Dose Admin Hydrocodone Bitart/Acetaminophen 1 tab 07/28/17 22:46 [place] 325-10 Mg PO 07/28/17 22:47 ONETIME ONE Albuterol/Ipratropium 3 ml 07/28/17 19:09 07/28/17 19:25 Duoneb 3.0-0.5 Mg/3 Ml NEB 07/28/17 19:10 3 ml ONETIME ONE Administration Alprazolam 1 mg 07/28/17 22:46 Xanax PO 07/28/17 22:47 ONETIME ONE Hydromorphone HCl 1 mg 07/28/17 19:11 07/28/17 19:16 Dilaudid IVPUSH 07/28/17 19:12 1 mg ONETIME ONE Administration Doxycycline Hyclate 100 mg/ 100 mls @ 100 mls/hr 07/28/17 21:30 07/28/17 22: 03 Sodium Chloride IV 07/28/17 22:29 100 mls/hr ONETIME ONE Administration Methylprednisolone Sodium Succinate 125 mg 07/28/17 19:11 07/28/17 19:21 Solu-Medrol IVPUSH 07/28/17 19:12 125 mg ONETIME ONE Administration - Radiology Interpretation Free Text/Narrative:: 1 view chest xray shows no acute intrathoracic process. Emphysematous changes. Reviewed by myself and Dr. Greenberg. - Re-Assessments/Exams Free Text/Narrative Re-Assessment/Exam: 07/28/17 21:32 I discussed the case with Dr. Greenberg who recommended obtaining a blood gas. I reviewed the EKG, chest x-ray and labs at the patient. I feel that we could treat her outpatient with steroids and antibiotics and close follow-up. She does live here [place]. Patient reports to me that she is very about her current state. She does not feel comfortable going home. She would like to be admitted to the hospital tonight. She has increased oxygen demands and I had nursing staff check an MCG on her. She only meets for observation criteria. I did inform the patient she may be responsible for some of her visit and she is agreeable to that. I discussed the case with Dr. Mcclure. She agrees to the admission. Asked that we give doxycycline IV. Also asked with give solumedrol 125mg at 0600, duonebs qid and albuterol nebs prn. I ordered CBC, CMP and CRP for the morning. Departure - Departure Time of Disposition: 22:20 Disposition: Refer to Observation Condition: Fair Clinical Impression: COPD exacerbation, Anxiety - Discharge Information - My Orders Last 24 Hours: My Active Orders 07/28/17 19:09 Cardiac Monitoring [RC] . DIRECTED EKG Documentation Completion [RC] ASDIRECTED RT Aerosol Therapy [RC] ASDIRECTED Chest 1V Frontal [CR] Stat EKG 12 Lead [EK] Stat 07/28/17 19:21 Blood Culture x2 Reflex Set [OM.PC] Stat 07/28/17 19:35 CULTURE BLOOD [BC] Stat 07/28/17 19:45 CULTURE BLOOD [BC] Stat - Assessment/Plan Last 24 Hours: My Active Orders 07/28/17 19:09 Cardiac Monitoring [RC] . DIRECTED EKG Documentation Completion [RC] ASDIRECTED RT Aerosol Therapy [RC] ASDIRECTED Chest 1V Frontal [CR] Stat EKG 12 Lead [EK] Stat 07/28/17 19:21 Blood Culture x2 Reflex Set [OM.PC] Stat 07/28/17 19:35 CULTURE BLOOD [BC] Stat 07/28/17 19:45 CULTURE BLOOD [BC] Stat
[2017-07-28] MEDS ORDERED: Doxycycline 100 MG in Sodium Chloride 0.9% 100 ML IV ONE (21:30)
[2017-07-28] MEDS ORDERED: Acetaminophen/HYDROcodone 325-10 MG Tab PO ONE (22:46)
[2017-07-28] MEDS ORDERED: ALPRAZolam 1 MG Tab PO ONE (22:46)
[2017-07-28] MEDS ORDERED: Albuterol 0.083% 2.5 MG/3 ML Neb Soln NEB PRN (23:41)
[2017-07-29] MEDS: Albuterol/Ipratropium 3.0-0.5 MG/3 ML Neb Soln NEB SCH ×2 (02:56→09:02)
[2017-07-29] MEDS ORDERED: methylPREDNISolone Sodium Succinate 125 MG/2 ML SDV IVPUSH ONE (06:00)
[2017-07-29] MEDS ORDERED: Acetaminophen/HYDROcodone 325-10 MG Tab PO PRN (06:19)
--- NOTE | 2017-07-29 07:16 | PCM.HP ---
<Jayson Delgadillo - Last Filed: 07/29/17 13:19> H&P History of Present Illness - General Date of Service: 07/29/17 Admit Problem/Dx: Admission Diagnosis/Problem Admission Diagnosis/Problem COPD, Severe chronic obstructive pulmonary disease Source of Information: Patient, Old Records, RN, Other (ED notes ) History Limitations: Reports: No Limitations - History of Present Illness Initial Comments - Free Text/Narative: Beilnda Smith is a 51 yo female pt. who is the ED yesterday evening with worsening shortness of breath, chest pain, and a cough. She reports her symptoms started 1 week prior and worsened today after her visit for cardiac rehabilitation. She is normally on 4 L oxygen via nasal cannula with activity and 2 L oxygen via nasal cannula at rest. She has COPD. She is increased her oxygen recently to 4-5 L at rest. She reported chest pain across her chest that feels tight. She been coughing up green's . She reported diarrhea. Some family members have been sick with flulike symptoms. She denied earache, sore throat, fever, nausea, vomiting, abdominal pain. She carries a history of hypertension, end-stage COPD, oxygen dependency, urinary incontinence, arthritis, back pain, migraines, anxiety, depression, osteoporosis. In the ED she was afebrile with a temp of 36.2 Celsius. Tachycardic as her heart rate was 106. Respirations are 19. Blood pressure is elevated 143/113 and her pulse ox was 88%. Telemetry was obtained showing sinus tachycardia with no acute changes. Labs were obtained: White count 10.79 and slightly elevated. Hemoglobin 14.5. Hematocrit 42.5. She was normocytic. Platelets 264,000. Slight rise in neutrophils at 74%. Band neutrophils were 4%. Sodium was normal 144. Potassium normal at 3.5. Chloride normal at 12. Carbon dioxide high end of normal at 32. Anion gap normal at 13.5. BUN normal at 9. Creatinine normal at 1. EGFR 58. Glucose elevated at 120. Magnesium low 1.6. Liver enzymes were normal with AST at 22, ALT 21, alkaline phosphatase and 91. Troponin was negative with less than 0.017. CRP was normal at 0.7 albumin normal at 3.9. Lactic acid normal at 0.9. ABG was obtained of the right radial. Ph normal at 7.37. PCO2 high at 55.8. PO2 87. Bicarbonate high at 31.1. O2 saturation high at 97.1. Base excess high at 4.8. This was on 5 L via nasal cannula. She was given [place], duoneb, Xanax, Dilaudid, and Solu-Medrol. Chest x-ray showed no acute intrathoracic processes however emphysematous discharge was noted. The original plan was for the patient to return home however the patient was very anxious about her increased oxygen demands and requested to be admitted. 2 subsequent admitted to the medicine floor for observation. She is a full code. Her PCP is ELEN Mccarthy, here at [facility]. Chest Pain Score (Numeric/FACES): 8 Right Upper Arm Pain Score (Numeric/FACES): 5 - Related Data Allergies/Adverse Reactions: Allergies Allergy/AdvReac Type Severity Reaction Status Date / Time No Known Allergies Allergy Verified 07/22/17 12:27 Home Medications: Home Meds Albuterol Sulfate [Albuterol Sulfate HFA] 2 puff INH BID PRN 02/25/14 [History] Budesonide/Formoterol Fumarate [Symbicort 80-4.5 Mcg Inhaler] 2 puff IH BID [History] Albuterol/Ipratropium [DuoNeb 3.0-0.5 MG/3 ML] 3 ml INH Q4HR PRN 11/03/14 [ History] ALPRAZolam [Xanax] 1 mg PO BID PRN 04/15/17 [History] Magnesium Oxide 400 mg PO DAILY 04/15/17 [History] Triamterene/Hydrochlorothiazid [Triamterene-HCTZ 37.5-25 MG] 1 each PO DAILY # 30 capsule 04/23/17 [Rx] Hydrocodone/Acetaminophen [Hydrocodon-Acetaminophn 10-325] 1 tab PO TID PRN [History] Doxycycline [Vibramycin] 100 mg PO Q12HR 10 Days #20 cap 07/29/17 [Rx] Past Medical History HEENT History: Reports: Impaired Vision Cardiovascular History: Reports: Hypertension Respiratory History: Reports: COPD Other Respiratory History: end stage COPD, pt is Oxygen dependent Gastrointestinal History: Reports: Colon Polyp Genitourinary History: Reports: Renal Calculus, Urinary Incontinence 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: Musculoskeletal History: Reports: Arthritis Other Musculoskeletal History: c/o back pain Neurological History: Reports: Migraines Psychiatric History: Reports: Anxiety, Depression Endocrine/Metabolic History: Reports: Osteoporosis Hematologic History: Reports: None - Infectious Disease History Infectious Disease History: Reports: Chicken Pox - Past Surgical History Female Surgical History: Reports: D&C, Hysterectomy Endocrine Surgical History: Reports: None Musculoskeletal Surgical History: Reports: Shoulder Replacement Dermatological Surgical History: Reports: None Social & Family History - Family History Family Medical History: Noncontributory - Tobacco Use Smoking Status *Q: Former Smoker Years of Tobacco use: 15 Packs/Tins Daily: 0.5 Used Tobacco, but Quit: Yes Month Tobacco Last Used: 2015 Second Hand Smoke Exposure: No - Caffeine Use Caffeine Use: Reports: None Other Caffeine Use: 2 - Alcohol Use Days Per Week of Alcohol Use: 0 Number of Drinks Per Day: 1 Total Drinks Per Week: 0 - Recreational Drug Use Recreational Drug Use: No Drug Use in Last 12 Months: Yes Recreational Drug Type: Reports: Marijuana/Hashish Recreational Drug Use Frequency: Weekly - Living Situation & Occupation Living situation: Reports: Single, with Family (Son) Occupation: Unemployed H&P Review of Systems - Review of Systems: Review Of Systems: See Below General: Reports: No Symptoms HEENT: Reports: No Symptoms Pulmonary: Reports: Shortness of Breath (Improving ) Cardiovascular: Reports: Chest Pain (improving ) Gastrointestinal: Reports: No Symptoms Genitourinary: Reports: No Symptoms Musculoskeletal: Reports: No Symptoms Skin: Reports: No Symptoms Psychiatric: Reports: Depression, Anxiety Neurological: Reports: No Symptoms Hematologic/Lymphatic: Reports: No Symptoms Immunologic: Reports: No Symptoms Exam - Exam Exam: See Below - Vital Signs Vital Signs: Last Vital Signs Temp 99.0 F 07/28/17 22:29 Pulse 85 07/28/17 22:29 Resp 21 H 07/28/17 22:29 BP 143/113 H 07/28/17 18:51 Pulse Ox 92 L 07/29/17 06:13 Weight: 45.359 kg - Exam Quality Assessment: Supplemental Oxygen, DVT Prophylaxis General: Alert, Oriented, Cooperative HEENT: Conjunctiva Clear, EACs Clear, Hearing Intact, Mucosa Moist & [place], Nares Patent, Normal Nasal Septum, Posterior Pharynx Clear, Pupils Equal, Pupils Reactive, Other (Dry tongue) Neck: Supple, Trachea Midline Lungs: Clear to Auscultation, Normal Respiratory Effort Cardiovascular: Regular Rate, Regular Rhythm GI/Abdominal Exam: Normal Bowel Sounds, Soft, Non-Tender, No Organomegaly, No Distention, No Abnormal Bruit, No Mass, Pelvis Stable (Female) Exam: Deferred Rectal (Female) Exam: Deferred Back Exam: Normal Inspection, Full Range of Motion Extremities: Normal Inspection, Normal Range of Motion, Non-Tender, No Pedal Edema, Normal Capillary Refill Peripheral Pulses: 2+: Radial (L), Radial (R), Posterior Tibial (L), Posterior Tibial (R), Dorsalis Pedis (L), Dorsalis Pedis (R) Skin: Warm, Dry, Intact Neurological: Cranial Nerves Intact Neuro Extensive - Mental Status: Alert, Oriented x3, Normal Cognition, Memory Intact Neuro Extensive - Motor, Sensory, Reflexes: CN II-XII Intact Psychiatric: Alert, Anxious, Depressed - Patient Data Lab Results Last 24 hrs: Laboratory Results - last 24 hr 07/29/17 Range/Units 07:00 WBC 6.07 (3.98-10.04) K/mm3 RBC 4.68 (3.98-5.22) M/mm3 Hgb 13.6 (11.2-15.7) gm/L Hct 39.6 (34.1-44.9) % MCV 84.6 (79.4-94.8) fl MCH 29.1 (25.6-32.2) pg MCHC 34.3 (32.2-35.5) g/dl RDW Std Deviation 39.1 (36.4-46.3) fL Plt Count 228 (182-369) K/mm3 MPV 10.4 (9.4-12.3) fl Neut % (Auto) 91.3 H (34.0-71.1) % Lymph % (Auto) 7.9 L (19.3-51.7) % Hunt % (Auto) 0.8 L (4.7-12.5) % Eos % (Auto) 0 L (0.7-5.8) Baso % (Auto) 0.0 L (0.1-1.2) % Neut # (Auto) 5.54 (1.56-6.13) K/mm3 Lymph # (Auto) 0.48 L (1.18-3.74) K/mm3 Hunt # (Auto) 0.05 L (0.24-0.36) K/mm3 Eos # (Auto) 0.00 L (0.04-0.36) K/mm3 Baso # (Auto) 0.00 L (0.01-0.08) K/mm3 Result Diagrams: 07/29/17 07:00 07/29/17 07:00 *Q Meaningful Use (ADM) - VTE *Q VTE Criteria *Q: - Stroke *Q Stroke Criteria *Q: - AMI *Q AMI Criteria *Q: - Problem List (1) COPD exacerbation SNOMED Code(s): 350953588 ICD Code: J44.1 - CHRONIC OBSTRUCTIVE PULMONARY DISEASE W (ACUTE) EXACERBATION Status: Acute Priority: High (2) Anxiety SNOMED Code(s): 12036161 ICD Code: F41.9 - ANXIETY DISORDER, UNSPECIFIED Status: Acute Priority: High (3) Hypomagnesemia SNOMED Code(s): 359044360 ICD Code: E83.42 - HYPOMAGNESEMIA Status: Acute Priority: High Problem List Initiated/Reviewed/Updated: Yes Orders Last 24hrs: Active Orders 24 hr Category Date Time Status Patient Status [ADT] Routine ADT 07/28/17 22:22 Active Regular Diet [DIET] Diet 07/29/17 Breakfast Active BASIC METABOLIC PANEL,BMP [CHEM] Routine Lab 07/29/17 07:00 Received C-REACTIVE PROTEIN [CHEM] Routine Lab 07/29/17 07:00 Received CBC WITH AUTO DIFF [HEME] Routine Lab 07/29/17 07:00 Results MAGNESIUM [CHEM] Routine Lab 07/29/17 07:00 Received Acetaminophen/HYDROcodone [[place] 325-10 MG] Med 07/29/17 06:19 Active 1 tab PO TID PRN Albuterol [Proventil Neb Soln] Med 07/28/17 23:41 Active 2.5 mg NEB Q4HRRT PRN Albuterol/Ipratropium [DuoNeb 3.0-0.5 MG/3 ML] Med 07/29/17 03:00 Active 3 ml NEB Q6HRRT Budesonide/Formoterol [Symbicort 80-4.5 MCG] Med 07/29/17 09:00 Active 0 gm INH BID Doxycycline [Vibramycin] 100 mg Med 07/29/17 10:00 Active Sodium Chloride 0.9% [Normal Saline] 100 ml IV Q12HR HCTZ/Triamterene [Dyazide 25-37.5 MG] Med 07/29/17 09:00 Active 1 each PO DAILY Magnesium Oxide Med 07/29/17 09:00 Active 400 mg PO DAILY Resuscitation Status Routine Resus Stat 07/28/17 23:41 Ordered Medication Orders Hydrocodone Bitart/Acetaminophen ([place] 325-10 Mg) 1 tab PO TID PRN PRN Reason: Pain Last Admin: 07/29/17 06:29 Dose: 1 tab Albuterol (Proventil Neb Soln) 2.5 mg NEB Q4HRRT PRN PRN Reason: sob Last Admin: 07/29/17 06:03 Dose: 2.5 mg Albuterol/Ipratropium (Duoneb 3.0-0.5 Mg/3 Ml) 3 ml NEB Q6HRRT SHAUN Last Admin: 07/29/17 02:56 Dose: 3 ml Budesonide/Formoterol Fumarate (Symbicort 80-4.5 Mcg) 0 gm INH BID SHAUN Doxycycline Hyclate 100 mg/ (Sodium Chloride) 100 mls @ 100 mls/hr IV Q12HR SHAUN Magnesium Oxide (Magnesium Oxide) 400 mg PO DAILY SHAUN Triamterene/HCTZ (Dyazide 25-37.5 Mg) 1 each PO DAILY SHAUN Assessment/Plan Comment:: I/P: Acute: COPD exacerbation -Titrate O2 with attempt to wean to baseline -DuoNeb/Albuterol neb -Doxycycline 100mg Q12 -Methylprednisolone 125mg -RT -Home medications as indicated -Normal WBC Hypomagnesemia -1.4 today -Home does of magnesium oxide ordered plus supplement Anxiety- acute attack -Thien consult -Has longstanding history of anxiety -See's Dr. Neumann outpatient -Home Xanax -Will offer resources such as [facility] -Pt. has Thien visit next week -Already has PCP appointment next week Chronic: hypertension end-stage COPD oxygen dependency urinary incontinence arthritis back pain migraines anxiety depression osteoporosis Plan: Admit to medical floor under observation status. Home medications as indicated CM/SW for discharge planning DVT prophylaxis <Wendy Mcclure - Last Filed: 07/29/17 14:25> H&P History of Present Illness - General Admit Problem/Dx: Admission Diagnosis/Problem Admission Diagnosis/Problem COPD, Severe chronic obstructive pulmonary disease Exam - Vital Signs Vital Signs: Last Vital Signs Temp 37.3 C 07/29/17 08:23 Pulse 91 07/29/17 08:23 Resp 20 07/29/17 08:23 BP 113/83 07/29/17 08:23 Pulse Ox 94 L 07/29/17 09:02 - Patient Data Lab Results Last 24 hrs: Laboratory Results - last 24 hr 07/29/17 07/29/17 Range/Units 07:00 07:00 WBC 6.07 (3.98-10.04) K/mm3 RBC 4.68 (3.98-5.22) M/mm3 Hgb 13.6 (11.2-15.7) gm/L Hct 39.6 (34.1-44.9) % MCV 84.6 (79.4-94.8) fl MCH 29.1 (25.6-32.2) pg MCHC 34.3 (32.2-35.5) g/dl RDW Std Deviation 39.1 (36.4-46.3) fL Plt Count 228 (182-369) K/mm3 MPV 10.4 (9.4-12.3) fl Neut % (Auto) 91.3 H (34.0-71.1) % Lymph % (Auto) 7.9 L (19.3-51.7) % Hunt % (Auto) 0.8 L (4.7-12.5) % Eos % (Auto) 0 L (0.7-5.8) Baso % (Auto) 0.0 L (0.1-1.2) % Neut # (Auto) 5.54 (1.56-6.13) K/mm3 Lymph # (Auto) 0.48 L (1.18-3.74) K/mm3 Hunt # (Auto) 0.05 L (0.24-0.36) K/mm3 Eos # (Auto) 0.00 L (0.04-0.36) K/mm3 Baso # (Auto) 0.00 L (0.01-0.08) K/mm3 Manual Slide Review Abnormal smear Sodium 139 (136-145) mEq/L Potassium 4.0 (3.5-5.1) mEq/L Chloride 99 (98-107) mEq/L Carbon Dioxide 30 (21-32) mEq/L Anion Gap 14.0 (5-15) BUN 13 (7-18) mg/dL Creatinine 1.0 (0.55-1.02) mg/dL Est Cr Clr Drug Dosing 47.12 mL/min Estimated GFR (MDRD) 58 (>60) mL/min BUN/Creatinine Ratio 13.0 L (14-18) Glucose 202 H (74-106) mg/dL Calcium 9.4 (8.5-10.1) mg/dL Magnesium 1.4 L (1.8-2.4) mg/dl C-Reactive Protein 0.5 (<1.0) mg/dL Result Diagrams: 07/29/17 07:00 07/29/17 07:00 *Q Meaningful Use (ADM) - VTE *Q VTE Criteria *Q: - Stroke *Q Stroke Criteria *Q: - AMI *Q AMI Criteria *Q: Orders Last 24hrs: Active Orders 24 hr Category Date Time Status Patient Status [ADT] Routine ADT 07/28/17 22:22 Active Antiembolic Devices [RC] QSHIFT Care 07/29/17 08:01 Active Ready for Discharge [RC] PER UNIT ROUTINE Care 07/29/17 13:38 Active DEANA Hose [Antiembolic Hose] [OM.PC] Routine Oth 07/29/17 08:01 Ordered Resuscitation Status Routine Resus Stat 07/28/17 23:41 Ordered Assessment/Plan Comment:: Strong anxiety component with respiratory needs; obs admission, DC as soon as possible.
--- NOTE | 2017-07-29 07:37 | CR ---
Chest: Portable view of the chest was obtained. Comparison: Previous chest x-ray of 04/19/17. Heart size and mediastinum are normal. Emphysematous changes are seen within both lungs. Lungs otherwise are clear. Previous right shoulder surgery is seen. Impression: 1. Emphysematous change. Nothing acute is appreciated on portable chest x-ray. Diagnostic code #2
[2017-07-29] MEDS ORDERED: Magnesium Oxide 400 MG Tab PO ONE ×2 (07:41→13:00)
[2017-07-29] MEDS: ALPRAZolam 1 MG Tab PO PRN ×2 (08:42→13:49)
[2017-07-29 08:50] VITALS: BP 113/83
[2017-07-29] MEDS ORDERED: Magnesium Oxide 400 MG Tab PO SCH (09:00)
[2017-07-29] MEDS ORDERED: Hydrochlorothiazide/Triamterene 25-37.5 MG Cap PO SCH (09:00)
[2017-07-29] MEDS ORDERED: Budesonide/Formoterol 80-4.5 MCG/Puff 6.9 GM Inhaler INH SCH (09:00)
[2017-07-29] MEDS ORDERED: Doxycycline 100 MG in Sodium Chloride 0.9% 100 ML IV SCH (10:00)
[2017-07-29] MEDS ORDERED: Formoterol/Mometasone 100-5 MCG 8.8 GM Inhaler IH SCH (11:00)
[2017-07-29] MEDS ORDERED: Acetaminophen/HYDROcodone 325-10 MG Tab PO ONE (12:15)
--- NOTE | 2017-07-29 13:42 | PCM.DCSUM1 ---
<Jayson Delgadillo - Last Filed: 07/29/17 13:42> Discharge Summary - Hospital Course Free Text/Narrative:: Belinda Smith is a 51 yo female pt. who is the ED yesterday evening with worsening shortness of breath, chest pain, and a cough. She reports her symptoms started 1 week prior and worsened today after her visit for cardiac rehabilitation. She is normally on 4 L oxygen via nasal cannula with activity and 2 L oxygen via nasal cannula at rest. She has COPD. She is increased her oxygen recently to 4-5 L at rest. She reported chest pain across her chest that feels tight. She been coughing up green sputum. She reported diarrhea. Some family members have been sick with flulike symptoms. She denied earache, sore throat, fever, nausea, vomiting, abdominal pain. She carries a history of hypertension, end-stage COPD, oxygen dependency, urinary incontinence, arthritis , back pain, migraines, anxiety, depression, osteoporosis. In the ED she was afebrile with a temp of 36.2 Celsius. Tachycardic, as her heart rate was 106. Respirations are 19. Blood pressure is elevated 143/113 and her pulse ox was 88 %. 12 lead was obtained showing sinus tachycardia with no acute changes. Labs were obtained: White count 10.79 and slightly elevated. Hemoglobin 14.5. Hematocrit 42.5. She was normocytic. Platelets 264,000. Slight rise in neutrophils at 74%. Band neutrophils were 4%. Sodium was normal 144. Potassium normal at 3.5. Chloride normal at 12. Carbon dioxide high end of normal at 32. Anion gap normal at 13.5. BUN normal at 9. Creatinine normal at 1. EGFR 58. Glucose elevated at 120. Magnesium low 1.6. Liver enzymes were normal with AST at 22, ALT 21, alkaline phosphatase and 91. Troponin was negative with less than 0.017. CRP was normal at 0.7 albumin normal at 3.9. Lactic acid normal at 0.9. ABG was obtained of the right radial. Ph normal at 7.37. PCO2 high at 55.8. PO2 87. Bicarbonate high at 31.1. O2 saturation high at 97.1. Base excess high at 4.8. This was on 5 L via nasal cannula. She was given Leonard, duoneb, Xanax, Dilaudid, and Solu-Medrol. Chest x-ray showed no acute intrathoracic processes however emphysematous discharge was noted. The original plan was for the patient to return home however the patient was very anxious about her increased oxygen demands and requested to be admitted. She was subsequently admitted to the medicine floor for observation. She is a full code. Her PCP is ELEN Mccarthy, here at [facility]. Once in our care doxycycline and methylprednisone were started. The patient's normal pain and anxiety medications were continued. Her magnesium was low and she was repleted. She reports she has an appointment with her correctional officer captain, Dr. Neumann, and her PCP Pedro Fernandez next week. business services representative was in to speak to her as it was believed anxiety was playing a large role in her stay here. She is given resources such as [employer] as she may benefit from having someone, such as a counselor, to speak with more frequently than Dr. Neumann. hand bindery assembly worker talked at length about the patient identifying triggers and utilizing words to talk herself down. She has responded positively to this. She will to be discharged home today on her normal home medications. She'll also be given 10 days of doxycycline at his believe there was a COPD exacerbation component. - Discharge Data Discharge Date: 07/29/17 (Admit Date: 07/28/17) Discharge Disposition: Home, Self-Care 01 Condition: Good - Discharge Diagnosis/Problem(s) (1) COPD exacerbation SNOMED Code(s): 383499464 ICD Code: J44.1 - CHRONIC OBSTRUCTIVE PULMONARY DISEASE W (ACUTE) EXACERBATION Status: Acute Priority: High (2) Anxiety SNOMED Code(s): 23160655 ICD Code: F41.9 - ANXIETY DISORDER, UNSPECIFIED Status: Acute Priority: High (3) Hypomagnesemia SNOMED Code(s): 868277365 ICD Code: E83.42 - HYPOMAGNESEMIA Status: Acute Priority: High - Patient Instructions Diet: Heart Healthy Diet Activity: As Tolerated Driving: Do Not Drive (today ) Showering/Bathing: May Shower Notify Provider of: Fever, Nausea and/or Vomiting (worsening chest pain or shortness of breath. ) - Discharge Plan Prescriptions/Med Rec: Doxycycline [Vibramycin] 100 mg PO Q12HR 10 Days #20 cap Home Medications: Home Meds Albuterol Sulfate [Albuterol Sulfate HFA] 2 puff INH BID PRN 02/25/14 [History] Budesonide/Formoterol Fumarate [Symbicort 80-4.5 Mcg Inhaler] 2 puff IH BID [History] Albuterol/Ipratropium [DuoNeb 3.0-0.5 MG/3 ML] 3 ml INH Q4HR PRN 11/03/14 [ History] ALPRAZolam [Xanax] 1 mg PO BID PRN 04/15/17 [History] Magnesium Oxide 400 mg PO DAILY 04/15/17 [History] Triamterene/Hydrochlorothiazid [Triamterene-HCTZ 37.5-25 MG] 1 each PO DAILY # 30 capsule 04/23/17 [Rx] Hydrocodone/Acetaminophen [Hydrocodon-Acetaminophn 10-325] 1 tab PO TID PRN [History] Doxycycline [Vibramycin] 100 mg PO Q12HR 10 Days #20 cap 07/29/17 [Rx] Patient Handouts: Chronic Obstructive Pulmonary Disease Exacerbation, Easy-to- Read, Oxygen Use at Home Forms: ED Department Discharge Referrals: Liza Fernandez NP [Primary Care Provider] - 08/04/17 3:00 pm (Please keep your appointment with Liza.) Dionte Neumann MD [Physician] - 08/05/17 1:00 pm (This appt. is in [place] at the clinic at the hospital, Please keep this appt.) - Discharge Summary/Plan Comment DC Time >30 min.: Yes (45 minutes) - General Info Admission Dx/Problem (Free Text: Admission Diagnosis/Problem Admission Diagnosis/Problem COPD, Severe chronic obstructive pulmonary disease Functional Status: Reports: Pain Controlled, Tolerating Diet, Ambulating, Urinating. Denies: New Symptoms - Review of Systems General: Reports: No Symptoms HEENT: Reports: No Symptoms Pulmonary: Reports: Shortness of Breath (improved ), Cough (improved ) Cardiovascular: Reports: Chest Pain (improved ) Gastrointestinal: Reports: No Symptoms Genitourinary: Reports: No Symptoms Musculoskeletal: Reports: No Symptoms Skin: Reports: No Symptoms Neurological: Reports: No Symptoms Psychiatric: Reports: Depression, Anxiety - Patient Data Vitals - Most Recent: Last Vital Signs Temp 99.1 F 07/29/17 08:23 Pulse 91 07/29/17 08:23 Resp 20 07/29/17 08:23 BP 113/83 07/29/17 08:23 Pulse Ox 94 L 07/29/17 09:02 Weight - Most Recent: 45.359 kg I&O - Last 24 hours: Intake & Output 07/28/17 07/29/17 07/29/17 22:59 06:59 14:59 Intake Total 880 790 Output Total 400 Balance 480 790 Lab Results - Last 24 hrs: Laboratory Results - last 24 hr 07/29/17 07/29/17 Range/Units 07:00 07:00 WBC 6.07 (3.98-10.04) K/mm3 RBC 4.68 (3.98-5.22) M/mm3 Hgb 13.6 (11.2-15.7) gm/L Hct 39.6 (34.1-44.9) % MCV 84.6 (79.4-94.8) fl MCH 29.1 (25.6-32.2) pg MCHC 34.3 (32.2-35.5) g/dl RDW Std Deviation 39.1 (36.4-46.3) fL Plt Count 228 (182-369) K/mm3 MPV 10.4 (9.4-12.3) fl Neut % (Auto) 91.3 H (34.0-71.1) % Lymph % (Auto) 7.9 L (19.3-51.7) % [place] % (Auto) 0.8 L (4.7-12.5) % Eos % (Auto) 0 L (0.7-5.8) Baso % (Auto) 0.0 L (0.1-1.2) % Neut # (Auto) 5.54 (1.56-6.13) K/mm3 Lymph # (Auto) 0.48 L (1.18-3.74) K/mm3 [place] # (Auto) 0.05 L (0.24-0.36) K/mm3 Eos # (Auto) 0.00 L (0.04-0.36) K/mm3 Baso # (Auto) 0.00 L (0.01-0.08) K/mm3 Manual Slide Review Abnormal smear Sodium 139 (136-145) mEq/L Potassium 4.0 (3.5-5.1) mEq/L Chloride 99 (98-107) mEq/L Carbon Dioxide 30 (21-32) mEq/L Anion Gap 14.0 (5-15) BUN 13 (7-18) mg/dL Creatinine 1.0 (0.55-1.02) mg/dL Est Cr Clr Drug Dosing 47.12 mL/min Estimated GFR (MDRD) 58 (>60) mL/min BUN/Creatinine Ratio 13.0 L (14-18) Glucose 202 H (74-106) mg/dL Calcium 9.4 (8.5-10.1) mg/dL Magnesium 1.4 L (1.8-2.4) mg/dl C-Reactive Protein 0.5 (<1.0) mg/dL Med Orders - Current: Current Medications Albuterol (Proventil Neb Soln) 2.5 mg NEB Q4HRRT PRN PRN Reason: sob Last Admin: 07/29/17 06:03 Dose: 2.5 mg Albuterol/Ipratropium (Duoneb 3.0-0.5 Mg/3 Ml) 3 ml NEB Q6HRRT [facility] Last Admin: 07/29/17 09:02 Dose: 3 ml Alprazolam (Xanax) 1 mg PO BID PRN PRN Reason: Anxiety Last Admin: 07/29/17 08:42 Dose: 1 mg Doxycycline Hyclate 100 mg/ (Sodium Chloride) 100 mls @ 100 mls/hr IV Q12HR [facility] Last Admin: 07/29/17 09:58 Dose: 100 mls/hr Magnesium Oxide (Magnesium Oxide) 400 mg PO DAILY [facility] Last Admin: 07/29/17 08:42 Dose: 400 mg Mometasone Furoate/Formoterol Fumar (Dulera 100-5 Mcg) 0 puff IH BID [facility] Triamterene/HCTZ (Dyazide 25-37.5 Mg) 1 each PO DAILY [facility] Last Admin: 07/29/17 08:42 Dose: 1 each Discontinued Medications Hydrocodone Bitart/Acetaminophen (Leonard 325-10 Mg) 1 tab PO ONETIME ONE Stop: 07/28/17 22:47 Last Admin: 07/28/17 23:31 Dose: 1 tab Hydrocodone Bitart/Acetaminophen (Leonard 325-10 Mg) 1 tab PO TID PRN PRN Reason: Pain Last Admin: 07/29/17 06:29 Dose: 1 tab Hydrocodone Bitart/Acetaminophen (Leonard 325-10 Mg) 1 tab PO ONETIME ONE Stop: 07/29/17 12:16 Last Admin: 07/29/17 12:30 Dose: 1 tab Albuterol/Ipratropium (Duoneb 3.0-0.5 Mg/3 Ml) 3 ml NEB ONETIME ONE Stop: 07/28/17 19:10 Last Admin: 07/28/17 19:25 Dose: 3 ml Alprazolam (Xanax) 1 mg PO ONETIME ONE Stop: 07/28/17 22:47 Last Admin: 07/28/17 23:31 Dose: 1 mg Budesonide/Formoterol Fumarate (Symbicort 80-4.5 Mcg) 0 gm INH BID [place] Last Admin: 07/29/17 09:04 Dose: Not Given Hydromorphone HCl (Dilaudid) 1 mg IVPUSH ONETIME ONE Stop: 07/28/17 19:12 Last Admin: 07/28/17 19:16 Dose: 1 mg Doxycycline Hyclate 100 mg/ (Sodium Chloride) 100 mls @ 100 mls/hr IV ONETIME ONE Stop: 07/28/17 22:29 Last Admin: 07/28/17 22:03 Dose: 100 mls/hr Magnesium Oxide (Magnesium Oxide) 400 mg PO ONETIME ONE Stop: 07/29/17 13:01 Last Admin: 07/29/17 12:30 Dose: 400 mg Methylprednisolone Sodium Succinate (Solu-Medrol) 125 mg IVPUSH ONETIME ONE Stop: 07/28/17 19:12 Last Admin: 07/28/17 19:21 Dose: 125 mg Methylprednisolone Sodium Succinate (Solu-Medrol) 125 mg IVPUSH ONETIME ONE Stop: 07/29/17 06:01 Last Admin: 07/29/17 06:11 Dose: 125 mg - Exam Quality Assessment: Reports: Supplemental Oxygen, DVT Prophylaxis General: Reports: Alert, Oriented, Cooperative HEENT: Reports: Pupils Equal, Pupils Reactive, Mucous Membr. Moist/[place] Neck: Reports: Supple, Trachea Midline, No JVD Lungs: Reports: Clear to Auscultation, Normal Respiratory Effort, Decreased Breath Sounds Cardiovascular: Reports: Regular Rate, Regular Rhythm GI/Abdominal Exam: Normal Bowel Sounds, Soft, Non-Tender, No Organomegaly, No Distention, No Abnormal Bruit, No Mass (Female) Exam: Deferred Rectal (Female) Exam: Deferred Back Exam: Reports: Normal Inspection, Full Range of Motion Extremities: Normal Inspection, Normal Range of Motion, Non-Tender, No Pedal Edema, Normal Capillary Refill Skin: Reports: Warm, Dry, Intact Neurological: Reports: No New Focal Deficit Psy/Mental Status: Reports: Alert, Anxious, Depressed *Q Meaningful Use (DIS) - VTE *Q VTE Criteria *Q: - Stroke *Q Stroke Criteria *Q: - AMI *Q AMI Criteria *Q: <Wendy Mcclure - Last Filed: 07/29/17 14:26> Discharge Summary - Hospital Course Free Text/Narrative:: DC today, follow has been confirmed; doxy for 10 days as above. - Patient Data Vitals - Most Recent: Last Vital Signs Temp 37.3 C 07/29/17 08:23 Pulse 91 07/29/17 08:23 Resp 20 07/29/17 08:23 BP 113/83 07/29/17 08:23 Pulse Ox 94 L 07/29/17 09:02 I&O - Last 24 hours: Intake & Output 07/28/17 07/29/17 07/29/17 22:59 06:59 14:59 Intake Total 880 790 Output Total 400 Balance 480 790 Lab Results - Last 24 hrs: Laboratory Results - last 24 hr 07/29/17 07/29/17 Range/Units 07:00 07:00 WBC 6.07 (3.98-10.04) K/mm3 RBC 4.68 (3.98-5.22) M/mm3 Hgb 13.6 (11.2-15.7) gm/L Hct 39.6 (34.1-44.9) % MCV 84.6 (79.4-94.8) fl MCH 29.1 (25.6-32.2) pg MCHC 34.3 (32.2-35.5) g/dl RDW Std Deviation 39.1 (36.4-46.3) fL Plt Count 228 (182-369) K/mm3 MPV 10.4 (9.4-12.3) fl Neut % (Auto) 91.3 H (34.0-71.1) % Lymph % (Auto) 7.9 L (19.3-51.7) % [place] % (Auto) 0.8 L (4.7-12.5) % Eos % (Auto) 0 L (0.7-5.8) Baso % (Auto) 0.0 L (0.1-1.2) % Neut # (Auto) 5.54 (1.56-6.13) K/mm3 Lymph # (Auto) 0.48 L (1.18-3.74) K/mm3 [place] # (Auto) 0.05 L (0.24-0.36) K/mm3 Eos # (Auto) 0.00 L (0.04-0.36) K/mm3 Baso # (Auto) 0.00 L (0.01-0.08) K/mm3 Manual Slide Review Abnormal smear Sodium 139 (136-145) mEq/L Potassium 4.0 (3.5-5.1) mEq/L Chloride 99 (98-107) mEq/L Carbon Dioxide 30 (21-32) mEq/L Anion Gap 14.0 (5-15) BUN 13 (7-18) mg/dL Creatinine 1.0 (0.55-1.02) mg/dL Est Cr Clr Drug Dosing 47.12 mL/min Estimated GFR (MDRD) 58 (>60) mL/min BUN/Creatinine Ratio 13.0 L (14-18) Glucose 202 H (74-106) mg/dL Calcium 9.4 (8.5-10.1) mg/dL Magnesium 1.4 L (1.8-2.4) mg/dl C-Reactive Protein 0.5 (<1.0) mg/dL Med Orders - Current: Current Medications Discontinued Medications Hydrocodone Bitart/Acetaminophen (Leonard 325-10 Mg) 1 tab PO ONETIME ONE Stop: 07/28/17 22:47 Last Admin: 07/28/17 23:31 Dose: 1 tab Hydrocodone Bitart/Acetaminophen (Leonard 325-10 Mg) 1 tab PO TID PRN PRN Reason: Pain Last Admin: 07/29/17 06:29 Dose: 1 tab Hydrocodone Bitart/Acetaminophen (Leonard 325-10 Mg) 1 tab PO ONETIME ONE Stop: 07/29/17 12:16 Last Admin: 07/29/17 12:30 Dose: 1 tab Albuterol (Proventil Neb Soln) 2.5 mg NEB Q4HRRT PRN PRN Reason: sob Last Admin: 07/29/17 06:03 Dose: 2.5 mg Albuterol/Ipratropium (Duoneb 3.0-0.5 Mg/3 Ml) 3 ml NEB ONETIME ONE Stop: 07/28/17 19:10 Last Admin: 07/28/17 19:25 Dose: 3 ml Albuterol/Ipratropium (Duoneb 3.0-0.5 Mg/3 Ml) 3 ml NEB Q6HRRT [facility] Last Admin: 07/29/17 09:02 Dose: 3 ml Alprazolam (Xanax) 1 mg PO ONETIME ONE Stop: 07/28/17 22:47 Last Admin: 07/28/17 23:31 Dose: 1 mg Alprazolam (Xanax) 1 mg PO BID PRN PRN Reason: Anxiety Last Admin: 07/29/17 13:49 Dose: 1 mg Budesonide/Formoterol Fumarate (Symbicort 80-4.5 Mcg) 0 gm INH BID [facility] Last Admin: 07/29/17 09:04 Dose: Not Given Hydromorphone HCl (Dilaudid) 1 mg IVPUSH ONETIME ONE Stop: 07/28/17 19:12 Last Admin: 07/28/17 19:16 Dose: 1 mg Doxycycline Hyclate 100 mg/ (Sodium Chloride) 100 mls @ 100 mls/hr IV ONETIME ONE Stop: 07/28/17 22:29 Last Admin: 07/28/17 22:03 Dose: 100 mls/hr Doxycycline Hyclate 100 mg/ (Sodium Chloride) 100 mls @ 100 mls/hr IV Q12HR [facility] Last Admin: 07/29/17 09:58 Dose: 100 mls/hr Magnesium Oxide (Magnesium Oxide) 400 mg PO DAILY [facility] Last Admin: 07/29/17 08:42 Dose: 400 mg Magnesium Oxide (Magnesium Oxide) 400 mg PO ONETIME ONE Stop: 07/29/17 13:01 Last Admin: 07/29/17 12:30 Dose: 400 mg Methylprednisolone Sodium Succinate (Solu-Medrol) 125 mg IVPUSH ONETIME ONE Stop: 07/28/17 19:12 Last Admin: 07/28/17 19:21 Dose: 125 mg Methylprednisolone Sodium Succinate (Solu-Medrol) 125 mg IVPUSH ONETIME ONE Stop: 07/29/17 06:01 Last Admin: 07/29/17 06:11 Dose: 125 mg Mometasone Furoate/Formoterol Fumar (Dulera 100-5 Mcg) 0 puff IH BID [facility] Triamterene/HCTZ (Dyazide 25-37.5 Mg) 1 each PO DAILY [facility] Last Admin: 07/29/17 08:42 Dose: 1 each *Q Meaningful Use (DIS) - VTE *Q VTE Criteria *Q: - Stroke *Q Stroke Criteria *Q: - AMI *Q AMI Criteria *Q:
== END 2017-07-29 13:55 | disposition home or self-care (01) ==
LOC: JD.ED 18:45 → JD.MS 21:43
PROVIDERS: ADMIT Internal Medicine Cardiovascular Disease; ATTEND Internal Medicine Cardiovascular Disease
DX: J44.1 Chronic obstructive pulmonary disease with (acute) exacerbation (principal); I10 Essential (primary) hypertension; M19.90 Unspecified osteoarthritis, unspecified site; G43.909 Migraine, unspecified, not intractable, without status migrainosus; F41.9 Anxiety disorder, unspecified; F32.9 Major depressive disorder, single episode, unspecified; M81.0 Age-related osteoporosis without current pathological fracture; Z87.891 Personal history of nicotine dependence; Z87.442 Personal history of urinary calculi; Z86.010 Personal history of colon polyps; Z99.81 Dependence on supplemental oxygen; Z79.51 Long term (current) use of inhaled steroids; Z79.899 Other long term (current) drug therapy; Z96.619 Presence of unspecified artificial shoulder joint; Z90.710 Acquired absence of both cervix and uterus; Z98.890 Other specified postprocedural states
CPT/HCPCS: 36415; 36600; 71010; 80048; 80053; 82803; 83605; 83735; 84484; 85025; 86140; 87040; 87804; 93005; 94640; 94760; 96365; 96366; 96375; 96376; 99285; A9270; G0378; J1170; J2930; J7030; 93010; 96374

== ENCOUNTER 2017-08-15 20:31 | Emergency (ER) | payer MEDICAID ==
[2017-08-15 20:40] VITALS: BP 146/121
[2017-08-15] MEDS ORDERED: HYDROmorphone 1 MG/ML Syringe IVPUSH ONE (20:53)
[2017-08-15] MEDS ORDERED: LORazepam 2 MG/ML MDV IVPUSH ONE (20:53)
[2017-08-15] MEDS ORDERED: Sodium Chloride 0.9% 10 ML Syringe FLUSH PRN (20:55)
[2017-08-15] MEDS ORDERED: Albuterol/Ipratropium 3.0-0.5 MG/3 ML Neb Soln NEB ONE (20:56)
--- NOTE | 2017-08-15 21:16 | EDM.PDOC ---
ED HPI GENERAL MEDICAL PROBLEM - General Chief Complaint: Cardiovascular Problem Stated Complaint: ESTEBAN AMB Time Seen by Provider: 08/15/17 20:40 Source of Information: Reports: Patient, Old Records (recent ER visits and hospitalization) History Limitations: Reports: No Limitations - History of Present Illness INITIAL COMMENTS - FREE TEXT/NARRATIVE: 51-year-old female presents via [facility] for chest tightness , chest pain and shortness of breath. Patient has a past medical history COPD. Currently uses 4 L oxygen via nasal cannula at all times. Patient has not required an increase in her oxygen. She reports that she has been experiencing chest tightness, chest pain and worsening shortness of breath. She is also coughing but does not appear to be worse than normal. She states she has been using her nebulizers as prescribed. She also has Xanax for anxiety and hydrocodone for pain. Reports she did not take either of these today. Patient denies any fevers or worsening of her cough. Denies any earaches, sore throat or sinus pressure. Patient does report she has been anxious. She has been seeing counseling and a psychiatrist. Recently started on Remeron and Seroquel. She reports that her legs feel restless with these new medications. No pain in her legs. Patient has been hospitalized earlier this year with pneumonia. Her last hospitalization on 07-28-17 was a one day stay; she was more here for anxiety. Treatments INFORMATICIST: Reports: Oxygen Chest Pain Score (Numeric/FACES): 7 - Related Data Allergies Allergy/AdvReac Type Severity Reaction Status Date / Time No Known Allergies Allergy Verified 08/11/17 13:06 Home Meds: Home Meds Albuterol Sulfate [Albuterol Sulfate HFA] 2 puff INH BID PRN 02/25/14 [History] Budesonide/Formoterol Fumarate [Symbicort 80-4.5 Mcg Inhaler] 2 puff IH BID [History] Albuterol/Ipratropium [DuoNeb 3.0-0.5 MG/3 ML] 3 ml INH Q4HR PRN 11/03/14 [ History] ALPRAZolam [Xanax] 1 mg PO BID PRN 04/15/17 [History] Magnesium Oxide 400 mg PO DAILY 04/15/17 [History] Triamterene/Hydrochlorothiazid [Triamterene-HCTZ 37.5-25 MG] 1 each PO DAILY # 30 capsule 04/23/17 [Rx] Hydrocodone/Acetaminophen [Hydrocodon-Acetaminophn 10-325] 1 tab PO TID PRN [History] Mirtazapine [Remeron] 30 mg PO BEDTIME 08/11/17 [History] QUEtiapine Fumarate [Seroquel] 50 mg PO BEDTIME 08/11/17 [History] ALPRAZolam [Xanax] 1 mg PO Q8H PRN #15 tablet 08/15/17 [Rx] Past Medical History HEENT History: Reports: Impaired Vision Cardiovascular History: Reports: Hypertension Respiratory History: Reports: COPD Other Respiratory History: end stage COPD, pt is Oxygen dependent Gastrointestinal History: Reports: Colon Polyp Genitourinary History: Reports: Renal Calculus, Urinary Incontinence 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: Musculoskeletal History: Reports: Arthritis Other Musculoskeletal History: c/o back pain Neurological History: Reports: Migraines Psychiatric History: Reports: Anxiety, Depression Endocrine/Metabolic History: Reports: Osteoporosis Hematologic History: Reports: None - Infectious Disease History Infectious Disease History: Reports: Chicken Pox - Past Surgical History Female Surgical History: Reports: D&C, Hysterectomy Endocrine Surgical History: Reports: None Musculoskeletal Surgical History: Reports: Shoulder Replacement Dermatological Surgical History: Reports: None Social & Family History - Family History Family Medical History: Noncontributory - Tobacco Use Smoking Status *Q: Former Smoker Years of Tobacco use: 15 Packs/Tins Daily: 0.5 Used Tobacco, but Quit: Yes Month Tobacco Last Used: 6 months Second Hand Smoke Exposure: No - Caffeine Use Caffeine Use: Reports: Soda Other Caffeine Use: 2 - Alcohol Use Days Per Week of Alcohol Use: 0 Number of Drinks Per Day: 1 Total Drinks Per Week: 0 - Recreational Drug Use Recreational Drug Use: No Drug Use in Last 12 Months: Yes Recreational Drug Type: Reports: Marijuana/Hashish Recreational Drug Use Frequency: Weekly - Living Situation & Occupation Living situation: Reports: Single, with Family (Son) Occupation: Unemployed ED ROS GENERAL - Review of Systems Review Of Systems: See Below Constitutional: Denies: Fever HEENT: Denies: Ear Pain, Throat Pain Respiratory: Reports: Shortness of Breath, Cough Cardiovascular: Reports: Chest Pain Musculoskeletal: Denies: Leg Pain (reports restlessness in her legs) Psychiatric: Reports: Anxiety ED EXAM, GENERAL - Physical Exam Exam: See Below Exam Limited By: No Limitations General Appearance: Alert, WD/WN, No Apparent Distress, Anxious Ears: Normal External Exam Nose: Normal Inspection Throat/Mouth: Normal Inspection, Normal Lips, Normal Voice, No Airway Compromise Neck: Normal Inspection Respiratory/Chest: No Respiratory Distress, Decreased Breath Sounds, Splinting, Other (currentlty using oxygen at 4L/min which is her baseline). No: Rhonchi Cardiovascular: Normal Peripheral Pulses, Regular Rate, Rhythm, No Murmur Extremities: Normal Inspection, No Pedal Edema, Other (akathisia to the lower legs present) Neurological: Alert, Oriented, Normal Cognition Psychiatric: Anxious, Tearful Skin Exam: Warm, Dry, Normal Color EKG INTERPRETATION EKG Date: 08/15/17 Time: 20:45 Rate (Beats/Min): 128 [place]: Normal P-Wave: Present QRS: Normal ST-T: Normal QT: Normal EKG Interpretation Comments: Sinus tachycardia at 132 bpm. Right atrial hypertrophy. Diffuse early repolarization abnormality. Reviewed by myself and Dr. Rojas. Course - Vital Signs Last Recorded V/S: Last Vital Signs Temp 36.8 C 08/15/17 20:39 Pulse 132 H 08/15/17 20:39 Resp 20 08/15/17 20:39 BP 146/121 H 08/15/17 20:39 Pulse Ox 95 08/15/17 20:39 - Orders/Labs/Meds Labs: Laboratory Tests 08/15/17 08/15/17 08/15/17 Range/Units 21:00 21:00 21:00 WBC 7.76 (3.98-10.04) K/mm3 RBC 4.42 (3.98-5.22) M/mm3 Hgb 13.0 (11.2-15.7) gm/L Hct 38.2 (34.1-44.9) % MCV 86.4 (79.4-94.8) fl MCH 29.4 (25.6-32.2) pg MCHC 34.0 (32.2-35.5) g/dl RDW Std Deviation 39.1 (36.4-46.3) fL Plt Count 214 (182-369) K/mm3 MPV 10.8 (9.4-12.3) fl Neutrophils % (Manual) 59 (40-60) % Band Neutrophils % 0 (0-10) % Lymphocytes % (Manual) 32 (20-40) % Atypical Lymphs % 0 % Monocytes % (Manual) 4 (2-10) % Eosinophils % (Manual) 5 (0.7-5.8) % Basophils % (Manual) 0 L (0.1-1.2) Platelet Estimate Adequate RBC Morph Comment Normal D-Dimer, Quantitative 0.58 (0.19-0.59) mg/L Sodium 143 (136-145) mEq/L Potassium 4.3 (3.5-5.1) mEq/L Chloride 103 (98-107) mEq/L Carbon Dioxide 33 H (21-32) mEq/L Anion Gap 11.3 (5-15) BUN 16 (7-18) mg/dL Creatinine 1.1 H (0.55-1.02) mg/dL Est Cr Clr Drug Dosing 44.55 mL/min Estimated GFR (MDRD) 52 (>60) mL/min BUN/Creatinine Ratio 14.5 (14-18) Glucose 125 H (74-106) mg/dL Calcium 9.0 (8.5-10.1) mg/dL Magnesium (1.8-2.4) mg/dl Total Bilirubin 0.2 (0.2-1.0) mg/dL AST 19 (15-37) U/L ALT 19 (14-59) U/L Alkaline Phosphatase 74 (46-116) U/L Troponin I < 0.017 (0.00-0.056) ng/mL Total Protein 7.0 (6.4-8.2) g/dl Albumin 3.4 (3.4-5.0) g/dl Globulin 3.6 gm/dL Albumin/Globulin Ratio 0.9 L (1-2) 08/15/17 Range/Units 21:00 WBC (3.98-10.04) K/mm3 RBC (3.98-5.22) M/mm3 Hgb (11.2-15.7) gm/L Hct (34.1-44.9) % MCV (79.4-94.8) fl MCH (25.6-32.2) pg MCHC (32.2-35.5) g/dl RDW Std Deviation (36.4-46.3) fL Plt Count (182-369) K/mm3 MPV (9.4-12.3) fl Neutrophils % (Manual) (40-60) % Band Neutrophils % (0-10) % Lymphocytes % (Manual) (20-40) % Atypical Lymphs % % Monocytes % (Manual) (2-10) % Eosinophils % (Manual) (0.7-5.8) % Basophils % (Manual) (0.1-1.2) Platelet Estimate RBC Morph Comment D-Dimer, Quantitative (0.19-0.59) mg/L Sodium (136-145) mEq/L Potassium (3.5-5.1) mEq/L Chloride (98-107) mEq/L Carbon Dioxide (21-32) mEq/L Anion Gap (5-15) BUN (7-18) mg/dL Creatinine (0.55-1.02) mg/dL Est Cr Clr Drug Dosing mL/min Estimated GFR (MDRD) (>60) mL/min BUN/Creatinine Ratio (14-18) Glucose (74-106) mg/dL Calcium (8.5-10.1) mg/dL Magnesium 1.6 L (1.8-2.4) mg/dl Total Bilirubin (0.2-1.0) mg/dL AST (15-37) U/L ALT (14-59) U/L Alkaline Phosphatase (46-116) U/L Troponin I (0.00-0.056) ng/mL Total Protein (6.4-8.2) g/dl Albumin (3.4-5.0) g/dl Globulin gm/dL Albumin/Globulin Ratio (1-2) Meds: Medications Discontinued Medications Generic Name Dose Route Start Last Admin Trade Name Freq PRN Reason Stop Dose Admin Albuterol/Ipratropium 3 ml 08/15/17 20:56 08/15/17 22:47 Duoneb 3.0-0.5 Mg/3 Ml NEB 08/15/17 20:57 Not Given ONETIME ONE Diphenhydramine HCl 25 mg 08/15/17 21:58 08/15/17 22:18 Benadryl IVPUSH 08/15/17 21:59 25 mg ONETIME ONE Administration Hydromorphone HCl 0.5 mg 08/15/17 20:53 08/15/17 21:09 Dilaudid IVPUSH 08/15/17 20:54 0.5 mg ONETIME ONE Administration Lorazepam 1 mg 08/15/17 20:53 08/15/17 21:07 Ativan IVPUSH 08/15/17 20:54 1 mg ONETIME ONE Administration Sodium Chloride 10 ml 08/15/17 20:55 08/15/17 21:10 Saline Flush FLUSH 10 ml ASDIRECTED PRN Administration Keep Vein Open - Radiology Interpretation Free Text/Narrative:: chest xray 2 view shows no acute intrathoracic process. - Re-Assessments/Exams Free Text/Narrative Re-Assessment/Exam: 08/15/17 22:51 I reviewed the labs, ekg and chest xray with the patient. She looks much more calm since receiving the ativan and her pain has improved with the Dilaudid. I feel her symptoms today are a combination of her COPD and anxiety. No acute findings such as PE, COPD exacerbation or pneumonia identified. I encouraged her to take her xanax tid as this will help with the akathisia and her anxiety. If she continues to have symptoms on the seroquel and remeron may consider decreasing these dosages. Will discharge home at this time. Discharge instructions as documented. Departure - Departure Time of Disposition: 23:05 Disposition: Home, Self-Care 01 Condition: Good Clinical Impression: Anxiety Prescriptions: ALPRAZolam [Xanax] 1 mg PO Q8H PRN #15 tablet PRN Reason: Anxiety Instructions: Dysphoria Referrals: Liza Fernandez FUEL CONVERSION TECHNICIAN [Primary Care Provider] - Forms: ED Department Discharge Additional Instructions: Increase your Xanax to 1 tab 3 times a day. If you continue to have symptoms from your medications discuss with Dr. Neumann. you may need to go down in your Remeron. Continue with your current plan of care. Follow-up with your primary care provider within one week for recheck of your symptoms. Please return to the ER if your symptoms change or worsen.
[2017-08-15] MEDS ORDERED: diphenhydrAMINE 50 MG/ML SDV IVPUSH ONE (21:58)
--- NOTE | 2017-08-16 07:38 | CR ---
Chest: Two views of the chest were obtained. Comparison: Previous chest x-ray of 07/28/17. Heart size and mediastinum are within normal limits. Lungs are hyperinflated compatible with emphysematous change. Lungs otherwise are clear. Mild degenerative change is seen within the spine. Right shoulder prosthesis is noted. Impression: 1. Emphysematous change. Other incidental findings. 2. Nothing acute is identified on two-view chest x-ray. Diagnostic code #2
== END 2017-08-15 23:52 | disposition home or self-care (01) ==
LOC: SUPCPDRO 20:31 → JD.ED 20:31
DX: F41.9 Anxiety disorder, unspecified (principal); Z87.891 Personal history of nicotine dependence
CPT/HCPCS: 36415; 71020; 80053; 83735; 84484; 85025; 85379; 93005; 96374; 96375; 99285; J1170; J1200; J2060; J7050

== ENCOUNTER 2017-09-13 19:06 | Emergency (ER) | payer MEDICAID ==
[2017-09-13 19:15] VITALS: BP 173/106
[2017-09-13] MEDS ORDERED: Sodium Chloride 0.9% 10 ML Syringe FLUSH PRN (19:56)
[2017-09-13] MEDS ORDERED: LORazepam 2 MG/ML MDV IVPUSH ONE (19:56)
[2017-09-13] MEDS ORDERED: HYDROmorphone 0.5 MG/0.5 ML Syringe IVPUSH ONE ×2 (19:56→21:31)
--- NOTE | 2017-09-13 20:12 | EDM.PDOC ---
ED HPI GENERAL MEDICAL PROBLEM - General Chief Complaint: Upper Extremity Injury/Pain Stated Complaint: RIGHT ARM PAIN Time Seen by Provider: 09/13/17 19:35 Source of Information: Reports: Patient, Old Records (ER records from /2013 (CC: right arm pain)) History Limitations: Reports: No Limitations - History of Present Illness INITIAL COMMENTS - FREE TEXT/NARRATIVE: 51 year old female presents for evaluation and treatment of right arm pain. Patient reports about 3 years ago she shattered her right humerus and shoulder. She had surgery at [place]. She has been doing well until about one month ago she developed severe pain in the right arm. Reports the pain is in the right shoulder and right humerus. Denies any right wrist, forearm, elbow or hand pain. Reports no new or recent trauma to the arm. She reports severe right arm pain, bruising, swelling and pain with ROM. She reports associated malaise and nausea. Denies any fevers or vomiting. Reports chronic numbness and tingling to the right arm. 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: Reports: Other Medication(s) (hydrocodone-acetaminophen 10-325) Right Upper Arm Pain Score (Numeric/FACES): 7 - Related Data Allergies Allergy/AdvReac Type Severity Reaction Status Date / Time No Known Allergies Allergy Verified 08/11/17 13:06 Home Meds: Home Meds Albuterol Sulfate [Albuterol Sulfate HFA] 2 puff INH BID PRN 02/25/14 [History] Budesonide/Formoterol Fumarate [Symbicort 80-4.5 Mcg Inhaler] 2 puff IH BID [History] Albuterol/Ipratropium [DuoNeb 3.0-0.5 MG/3 ML] 3 ml INH Q4HR PRN 11/03/14 [ History] Magnesium Oxide 400 mg PO DAILY 04/15/17 [History] Triamterene/Hydrochlorothiazid [Triamterene-HCTZ 37.5-25 MG] 1 each PO DAILY # 30 capsule 04/23/17 [Rx] Hydrocodone/Acetaminophen [Hydrocodon-Acetaminophn 10-325] 1 tab PO TID PRN [History] Mirtazapine [Remeron] 30 mg PO BEDTIME 08/11/17 [History] QUEtiapine Fumarate [Seroquel] 50 mg PO BEDTIME 08/11/17 [History] ALPRAZolam [Xanax] 1 mg PO Q8H PRN #15 tablet 08/15/17 [Rx] Past Medical History HEENT History: Reports: Impaired Vision Cardiovascular History: Reports: Hypertension Respiratory History: Reports: COPD Other Respiratory History: end stage COPD, pt is Oxygen dependent Gastrointestinal History: Reports: Colon Polyp Genitourinary History: Reports: Renal Calculus, Urinary Incontinence 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: Musculoskeletal History: Reports: Arthritis Other Musculoskeletal History: c/o back pain Neurological History: Reports: Migraines Psychiatric History: Reports: Anxiety, Depression Endocrine/Metabolic History: Reports: Osteoporosis Hematologic History: Reports: None - Infectious Disease History Infectious Disease History: Reports: Chicken Pox - Past Surgical History Female Surgical History: Reports: D&C, Hysterectomy Endocrine Surgical History: Reports: None Musculoskeletal Surgical History: Reports: Shoulder Replacement Dermatological Surgical History: Reports: None Social & Family History - Family History Family Medical History: Noncontributory - Tobacco Use Smoking Status *Q: Former Smoker Years of Tobacco use: 15 Packs/Tins Daily: 0.5 Used Tobacco, but Quit: Yes Month Tobacco Last Used: 1 Second Hand Smoke Exposure: No - Caffeine Use Caffeine Use: Reports: Soda Other Caffeine Use: 2 - Alcohol Use Days Per Week of Alcohol Use: 0 Number of Drinks Per Day: 1 Total Drinks Per Week: 0 - Recreational Drug Use Recreational Drug Use: No Drug Use in Last 12 Months: Yes Recreational Drug Type: Reports: Marijuana/Hashish Recreational Drug Use Frequency: Weekly - Living Situation & Occupation Living situation: Reports: Single, with Family (Son) Occupation: Unemployed Review of Systems - Review of Systems Review Of Systems: See Below Constitutional: Denies: Fever GI/Abdominal: Reports: Nausea. Denies: Vomiting Musculoskeletal: Reports: Arm Pain (right) Neurological: Reports: Numbness (right arm, chronic), Tingling (right arm, chronic) ED EXAM, GENERAL - Physical Exam Exam: See Below Exam Limited By: No Limitations General Appearance: Alert, WD/WN, Anxious, Thin Respiratory/Chest: No Respiratory Distress Cardiovascular: Normal Peripheral Pulses, Regular Rate, Rhythm Peripheral Pulses: 2+: Radial (L), Radial (R) Extremities: Normal Capillary Refill, Arm Pain (right from the anterior right shoulder down th anterior right humerus), Limited Range of Motion (unable to preform ROM due to pain; ROM testing deferred), Other (old/healed scar from the right shoulder to the distal humerus, well healed no erythema). No: Increased Warmth Neurological: Alert, Oriented Psychiatric: Anxious, Depressed Mood, Tearful Skin Exam: Warm, Dry, Normal Color, Ecchymosis (approximately 8cm x5cm ecchymosis to the anterior right proximal to mid humerus). No: Erythema, Increased Warmth Course - Vital Signs Last Recorded V/S: Last Vital Signs Temp 37.3 C 09/13/17 19:13 Pulse 114 H 09/13/17 19:13 Resp 28 H 09/13/17 19:13 BP 173/106 H 09/13/17 19:13 Pulse Ox 95 09/13/17 19:13 - Orders/Labs/Meds Labs: Laboratory Tests 09/13/17 09/13/17 Range/Units 20:05 20:05 WBC 8.12 (3.98-10.04) K/mm3 RBC 4.37 (3.98-5.22) M/mm3 Hgb 12.4 (11.2-15.7) gm/L Hct 38.4 (34.1-44.9) % MCV 87.9 (79.4-94.8) fl MCH 28.4 (25.6-32.2) pg MCHC 32.3 (32.2-35.5) g/dl RDW Std Deviation 39.3 (36.4-46.3) fL Plt Count 252 (182-369) K/mm3 MPV 10.6 (9.4-12.3) fl Neut % (Auto) 65.9 (34.0-71.1) % Lymph % (Auto) 20.7 (19.3-51.7) % [place] % (Auto) 9.0 (4.7-12.5) % Eos % (Auto) 4.1 (0.7-5.8) Baso % (Auto) 0.2 (0.1-1.2) % Neut # (Auto) 5.35 (1.56-6.13) K/mm3 Lymph # (Auto) 1.68 (1.18-3.74) K/mm3 [place] # (Auto) 0.73 H (0.24-0.36) K/mm3 Eos # (Auto) 0.33 (0.04-0.36) K/mm3 Baso # (Auto) 0.02 (0.01-0.08) K/mm3 C-Reactive Protein 1.4 H* (<1.0) mg/dL Meds: Medications Discontinued Medications Generic Name Dose Route Start Last Admin Trade Name Freq PRN Reason Stop Dose Admin Hydromorphone HCl 0.5 mg 09/13/17 19:56 09/13/17 20:09 Dilaudid IVPUSH 09/13/17 19:57 0.5 mg ONETIME ONE Administration Hydromorphone HCl 0.5 mg 09/13/17 21:31 09/13/17 21:48 Dilaudid IVPUSH 09/13/17 21:32 0.5 mg ONETIME ONE Administration Lorazepam 1 mg 09/13/17 19:56 09/13/17 20:07 Ativan IVPUSH 09/13/17 19:57 1 mg ONETIME ONE Administration Lorazepam 0.5 mg 09/13/17 22:42 09/13/17 22:44 Ativan PO 09/13/17 22:43 0.5 mg ONETIME ONE Administration Lorazepam Confirm 09/13/17 22:47 Ativan Administered 09/13/17 22:48 Dose 0.5 mg .ROUTE .STK-MED ONE Sodium Chloride 10 ml 09/13/17 19:56 09/13/17 20:10 Saline Flush FLUSH 10 ml ASDIRECTED PRN Administration Keep Vein Open - Radiology Interpretation Free Text/Narrative:: Ultrasound of the right upper extremity impression per [facility]: No evidence of DVT. Question chronic cephalic vein thrombous. Fluid in the superior aspect of the glenohumeral joint. Xray of the right arm shows plate and screws from previous injury. No new fractures or dislocations. No change from previous xrays. - Re-Assessments/Exams Free Text/Narrative Re-Assessment/Exam: 09/13/17 22:30 I reviewed the labs and imaging with the patient. 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 Discussed with dr. Kirk. He agrees. Will start her on an 81 mg aspirin daily. I will have her follow-up with orthopedics for the effusion seen on ultrasound. Encouraged her to follow-up with Dr. Neumann and pain management for changes and further refills of her anxiety and pain medications. I attempted to search her on [place] SILO ERECTOR Aware but it does not appear to be working properly tonight. I will discharge her home at this time. Discharge instructions as documented . Departure - Departure Time of Disposition: 22:31 Disposition: Home, Self-Care 01 Condition: Good Clinical Impression: Shoulder pain - Discharge Information Instructions: Shoulder Pain Referrals: Liza Fernandez NP [Primary Care Provider] - Ishaan Dunlap MD [Physician] - Forms: ED Department Discharge Additional Instructions: Continue on your current pain medications as needed for pain. Recommend starting an 81 mg aspirin daily. Follow-up with Liza Fernandez for this week for recheck of your symptoms. Follow-up with Dr. Grimaldo for further management of your shoulder pain. Please return to the ER if your symptoms change or worsen.
[2017-09-13] MEDS ORDERED: LORazepam 0.5 MG Tab PO ONE (22:42)
[2017-09-13] MEDS ORDERED: LORazepam 0.5 MG Tab ONE (22:47)
--- NOTE | 2017-09-14 07:18 | CR ---
Right humerus: Two views of the right humerus were obtained. Comparison: Prior right humerus exam of 03/16/16. Reverse right shoulder prosthesis is seen. Plate and screws are also identified within the humerus affixing an old healed fracture. There is some heterotopic bone around the shoulder and within the upper extremity which appears old. No acute fracture or other abnormality is appreciated. Impression: 1. Findings as noted above. Nothing acute is seen. Diagnostic code #2
--- NOTE | 2017-09-14 07:18 | CR ---
Right shoulder: Three views of the right shoulder were obtained. Comparison: Prior right shoulder exam of 03/16/16. Right shoulder prosthesis is seen. Components are aligned. Underlying bony structures are intact. Stable heterotopic bone is seen around the right shoulder. Degenerative change is partially seen within the cervical spine and thoracic spine. No acute abnormality is appreciated. Impression: 1. Stable right shoulder prosthesis with heterotopic bone. 2. Nothing acute is seen on three-view right shoulder study. Diagnostic code #2
--- NOTE | 2017-09-14 07:20 | US ---
Right upper extremity venous ultrasound: Duplex and color flow imaging was obtained of the right internal jugular, subclavian, axillary, brachial, basilic, cephalic, radius and ulnar veins. Comparison: No previous venous imaging of the right upper extremity. Findings: Cephalic vein shows echogenic material suspicious for chronic clot. Other veins show normal compression, augmentation and phasic flow. There is complicated fluid seen within the right shoulder joint. Impression: 1. Old appearing clot within the right cephalic vein. 2. No findings of acute venous thrombosis. 3. Complicated fluid noted within the glenohumeral joint. Diagnostic code #3 Agree with preliminary report issued by [facility] ([facility] preliminary report dictated on 09/13/17, 10:50 PM Central Time)
== END 2017-09-13 22:45 | disposition home or self-care (01) ==
LOC: JD.ED 19:06
DX: M25.511 Pain in right shoulder (principal); J44.9 Chronic obstructive pulmonary disease, unspecified; Z87.891 Personal history of nicotine dependence; Z79.899 Other long term (current) drug therapy
CPT/HCPCS: 36415; 73030; 73060; 85025; 86140; 93971; 96374; 96375; 96376; 99284; A9270; J1170; J2060; J7050

== ENCOUNTER 2017-09-23 15:46 | Inpatient (IN) | payer MEDICAID ==
[2017-09-23] MEDS ORDERED: Albuterol/Ipratropium 3.0-0.5 MG/3 ML Neb Soln ONE (16:08)
[2017-09-23] MEDS ORDERED: Sodium Chloride 0.9% 10 ML Syringe FLUSH PRN (16:11)
[2017-09-23] MEDS ORDERED: methylPREDNISolone Sodium Succinate 125 MG/2 ML SDV IVPUSH ONE (16:11)
[2017-09-23] MEDS ORDERED: Albuterol/Ipratropium 3.0-0.5 MG/3 ML Neb Soln NEB ONE (16:11)
--- NOTE | 2017-09-23 16:13 | EDM.PDOC ---
ED HPI GENERAL MEDICAL PROBLEM - General Chief Complaint: Respiratory Problem Stated Complaint: DIFFICULTY BREATHING Time Seen by Provider: 09/23/17 15:54 Source of Information: Reports: Patient History Limitations: Reports: No Limitations - History of Present Illness INITIAL COMMENTS - FREE TEXT/NARRATIVE: The patient is a 51-year-old female with a history of severe COPD who is oxygen dependent and normally at 4 L nasal cannula presents with difficulty breathing. She states that she's been feeling ill for about a week. She's had progressive shortness of breath. She's had a productive cough with green sputum. No fever. She has some chest discomfort associated with coughing. She has been using nebulizer treatments in the morning and at night but hasn't really been using her rescue inhaler, not clear why. She feels like the nebulizer treatments work better that she's had unrelated medical appointments today and so was able to use it. She also has a mild stuffy nose and sore throat. No abdominal pain or vomiting. Chest Pain Score (Numeric/FACES): 7 Right Shoulder Pain Score (Numeric/FACES): 6 - Related Data Allergies Allergy/AdvReac Type Severity Reaction Status Date / Time No Known Allergies Allergy Verified 09/23/17 15:52 Home Meds: Home Meds Albuterol Sulfate [Albuterol Sulfate HFA] 2 puff INH BID PRN 02/25/14 [History] Budesonide/Formoterol Fumarate [Symbicort 80-4.5 Mcg Inhaler] 2 puff IH BID [History] Albuterol/Ipratropium [DuoNeb 3.0-0.5 MG/3 ML] 3 ml INH Q4HR PRN 11/03/14 [ History] Magnesium Oxide 400 mg PO DAILY 04/15/17 [History] Triamterene/Hydrochlorothiazid [Triamterene-HCTZ 37.5-25 MG] 1 each PO DAILY # 30 capsule 04/23/17 [Rx] Hydrocodone/Acetaminophen [Hydrocodon-Acetaminophn 10-325] 1 tab PO TID PRN [History] Mirtazapine [Remeron] 30 mg PO BEDTIME 08/11/17 [History] QUEtiapine Fumarate [Seroquel] 50 mg PO BEDTIME 11/01/17 [History] ALPRAZolam [Xanax] 1 mg PO Q8H PRN #15 tablet 08/15/17 [Rx] Past Medical History HEENT History: Reports: Impaired Vision Cardiovascular History: Reports: Hypertension Respiratory History: Reports: COPD Other Respiratory History: end stage COPD, pt is Oxygen dependent Gastrointestinal History: Reports: Colon Polyp Genitourinary History: Reports: Renal Calculus, Urinary Incontinence [employer] 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: Musculoskeletal History: Reports: Arthritis Other Musculoskeletal History: c/o back pain Neurological History: Reports: Migraines Psychiatric History: Reports: Anxiety, Depression Endocrine/Metabolic History: Reports: Osteoporosis Hematologic History: Reports: None - Infectious Disease History Infectious Disease History: Reports: Chicken Pox - Past Surgical History Female Surgical History: Reports: D&C, Hysterectomy Endocrine Surgical History: Reports: None Musculoskeletal Surgical History: Reports: Shoulder Replacement Dermatological Surgical History: Reports: None Social & Family History - Family History Family Medical History: Noncontributory - Tobacco Use Smoking Status *Q: Former Smoker Years of Tobacco use: 30 Packs/Tins Daily: 0.5 Used Tobacco, but Quit: No Month Tobacco Last Used: 1 Second Hand Smoke Exposure: No - Caffeine Use Caffeine Use: Reports: Soda Other Caffeine Use: 2 - Alcohol Use Days Per Week of Alcohol Use: 0 Number of Drinks Per Day: 1 Total Drinks Per Week: 0 - Recreational Drug Use Recreational Drug Use: No Drug Use in Last 12 Months: Yes Recreational Drug Type: Reports: Marijuana/Hashish Recreational Drug Use Frequency: Weekly - Living Situation & Occupation Living situation: Reports: Single, with Family (Son) Occupation: Unemployed ED ROS GENERAL - Review of Systems Review Of Systems: See Below Constitutional: Denies: Fever HEENT: Reports: No Symptoms Respiratory: Reports: Shortness of Breath, Cough Cardiovascular: Reports: Chest Pain Endocrine: Reports: No Symptoms GI/Abdominal: Denies: Abdominal Pain : Reports: No Symptoms Musculoskeletal: Reports: No Symptoms Skin: Reports: No Symptoms Neurological: Reports: No Symptoms Psychiatric: Reports: No Symptoms ED EXAM, GENERAL - Physical Exam Exam: See Below Exam Limited By: No Limitations General Appearance: Alert, WD/WN, No Apparent Distress Eye Exam: Bilateral Eye: Normal Inspection Ears: Normal External Exam Nose: Normal Inspection Throat/Mouth: Normal Inspection, Normal Voice, No Airway Compromise Head: Atraumatic, Normocephalic Neck: Normal Inspection, Supple, Non-Tender, Full Range of Motion Respiratory/Chest: Other (Moderate respiratory distress, tachypnea, decreased lung sounds throughout, hypoxic with initial oxygen saturations in the 70s on a nasal cannula at 4 L. Intercostal and supraclavicular retractions are present. Prolonged expiration.) Cardiovascular: No Edema, No Murmur, Tachycardia GI/Abdominal: Soft, Non-Tender, No Distention. No: Guarding Extremities: Normal Inspection. No: Pedal Edema Neurological: Alert, Oriented, Normal Cognition, No Motor/Sensory Deficits Psychiatric: Normal Affect, Normal Mood Course - Vital Signs Last Recorded V/S: Last Vital Signs Temp 36.4 C 09/24/17 03:53 Pulse 80 09/24/17 05:42 Resp 22 H 09/24/17 03:53 BP 106/69 09/24/17 03:53 Pulse Ox 91 L 09/24/17 05:31 - Orders/Labs/Meds Orders: Active Orders 24 hr Category Date Time Status EKG 12 Lead [EKG Documentation Completion] [RC] STAT Care 09/23/17 16:11 Active CULTURE BLOOD [BC] Stat Lab 09/23/17 16:39 Received CULTURE BLOOD [BC] Stat Lab 09/23/17 16:45 Received Sodium Chloride 0.9% [Saline Flush] Med 09/23/17 16:11 Active 10 ml FLUSH ASDIRECTED PRN Blood Culture x2 Reflex Set [OM.PC] Stat Oth 09/23/17 16:11 Ordered Peripheral IV Insertion Adult [OM.PC] Routine Oth 09/23/17 16:11 Ordered Medication Orders Acetaminophen (Tylenol) 650 mg PO Q6H PRN PRN Reason: Fever Hydrocodone Bitart/Acetaminophen ([place] 325-10 Mg) 1 tab PO TID PRN PRN Reason: Pain Last Admin: 09/24/17 05:51 Dose: 1 tab Admin: 09/23/17 22:26 Dose: 1 tab Albuterol (Proventil Neb Soln) 2.5 mg NEB Q4HRRT PRN PRN Reason: Shortness of Breath Albuterol (Proventil Hfa) 0 gm INH BID PRN PRN Reason: Dyspnea Albuterol/Ipratropium (Duoneb 3.0-0.5 Mg/3 Ml) 3 ml NEB QIDRT SHAUN Last Admin: 09/24/17 09:26 Dose: Not Given Admin: 09/24/17 05:31 Dose: 3 ml Admin: 09/23/17 21:35 Dose: 3 ml Albuterol/Ipratropium (Duoneb 3.0-0.5 Mg/3 Ml) 3 ml INH Q4HR PRN PRN Reason: Shortness of Breath Alprazolam (Xanax) 1 mg PO Q8H PRN PRN Reason: Anxiety Last Admin: 09/24/17 08:40 Dose: 1 mg Admin: 09/23/17 22:25 Dose: 1 mg Benzonatate (Tessalon Perles) 100 mg PO TID PRN PRN Reason: Cough Enoxaparin Sodium (Lovenox) 40 mg SUBCUT DAILY [facility] Last Admin: 09/24/17 08:40 Dose: 40 mg Doxycycline Hyclate 100 mg/ (Sodium Chloride) 100 mls @ 100 mls/hr IV Q12HR [facility] Last Admin: 09/24/17 10:11 Dose: 100 mls/hr Sodium Chloride (Sodium Chloride 0.45%) 1,000 mls @ 100 mls/hr IV ASDIRECTED [facility] Last Admin: 09/23/17 22:28 Dose: 100 mls/hr Methylprednisolone Sodium Succinate (Solu-Medrol) 125 mg IVPUSH Q6H [facility] Last Admin: 09/24/17 10:15 Dose: 125 mg Admin: 09/24/17 05:51 Dose: 125 mg Admin: 09/23/17 22:27 Dose: 125 mg Mirtazapine (Remeron) 30 mg PO BEDTIME [facility] Last Admin: 09/23/17 22:25 Dose: 30 mg Mometasone Furoate/Formoterol Fumar (Dulera 100-5 Mcg) 0 puff IH BID [facility] Last Admin: 09/24/17 09:26 Dose: Not Given Admin: 09/24/17 01:04 Dose: Quetiapine Fumarate (Seroquel) 50 mg PO BEDTIME [facility] Last Admin: 09/23/17 22:26 Dose: 50 mg Sodium Chloride (Saline Flush) 10 ml FLUSH ASDIRECTED PRN PRN Reason: Keep Vein Open Last Admin: 09/23/17 16:54 Dose: 10 ml Triamterene/HCTZ (Dyazide 25-37.5 Mg) 1 each PO DAILY SHAUN Last Admin: 09/24/17 08:40 Dose: 1 each Labs: Laboratory Tests 09/23/17 09/23/17 09/23/17 Range/Units 16:05 16:05 16:39 WBC 7.68 (3.98-10.04) K/mm3 RBC 4.30 (3.98-5.22) M/mm3 Hgb 12.3 (11.2-15.7) gm/L Hct 38.7 (34.1-44.9) % MCV 90.0 (79.4-94.8) fl MCH 28.6 (25.6-32.2) pg MCHC 31.8 L (32.2-35.5) g/dl RDW Std Deviation 40.4 (36.4-46.3) fL Plt Count 246 (182-369) K/mm3 MPV 10.6 (9.4-12.3) fl Neut % (Auto) 67.4 (34.0-71.1) % Lymph % (Auto) 20.6 (19.3-51.7) % Carlton % (Auto) 8.9 (4.7-12.5) % Eos % (Auto) 2.7 (0.7-5.8) Baso % (Auto) 0.3 (0.1-1.2) % Neut # (Auto) 5.18 (1.56-6.13) K/mm3 Lymph # (Auto) 1.58 (1.18-3.74) K/mm3 Carlton # (Auto) 0.68 H (0.24-0.36) K/mm3 Eos # (Auto) 0.21 (0.04-0.36) K/mm3 Baso # (Auto) 0.02 (0.01-0.08) K/mm3 Sodium 140 (136-145) mEq/L Potassium 4.2 (3.5-5.1) mEq/L Chloride 97 L (98-107) mEq/L Carbon Dioxide 40 H (21-32) mEq/L Anion Gap 7.2 (5-15) BUN 11 (7-18) mg/dL Creatinine 0.9 (0.55-1.02) mg/dL Est Cr Clr Drug Dosing 60.21 mL/min Estimated GFR (MDRD) > 60 (>60) mL/min BUN/Creatinine Ratio 12.2 L (14-18) Glucose 145 H (74-106) mg/dL Lactic Acid 0.6 (0.4-2.0) mmol/L Calcium 9.5 (8.5-10.1) mg/dL Total Bilirubin 0.2 (0.2-1.0) mg/dL AST 24 (15-37) U/L ALT 25 (14-59) U/L Alkaline Phosphatase 78 (46-116) U/L Troponin I < 0.017 (0.00-0.056) ng/mL Total Protein 7.4 (6.4-8.2) g/dl Albumin 3.4 (3.4-5.0) g/dl Globulin 4.0 gm/dL Albumin/Globulin Ratio 0.9 L (1-2) Meds: Medications Generic Name Dose Route Start Last Admin Trade Name Freq PRN Reason Stop Dose Admin Acetaminophen 650 mg 09/23/17 19:11 Tylenol PO Q6H PRN Fever Hydrocodone Bitart/Acetaminophen 1 tab 09/23/17 21:41 09/24/17 05:51 [place] 325-10 Mg PO 1 tab TID PRN Administration Pain Albuterol 2.5 mg 09/23/17 19:07 Proventil Neb Soln NEB Q4HRRT PRN Shortness of Breath Albuterol 0 gm 09/23/17 21:41 Proventil Hfa INH BID PRN Dyspnea Albuterol/Ipratropium 3 ml 09/23/17 21:00 09/24/17 09:26 Duoneb 3.0-0.5 Mg/3 Ml NEB Not Given QIDRT SHAUN Albuterol/Ipratropium 3 ml 09/23/17 21:41 Duoneb 3.0-0.5 Mg/3 Ml INH Q4HR PRN Shortness of Breath Alprazolam 1 mg 09/23/17 21:41 09/24/17 08:40 Xanax PO 1 mg Q8H PRN Administration Anxiety Benzonatate 100 mg 09/24/17 00:00 Tessalon Perles PO TID PRN Cough Enoxaparin Sodium 40 mg 09/24/17 09:00 09/24/17 08:40 Lovenox SUBCUT 40 mg DAILY SHAUN Administration Doxycycline Hyclate 100 mg/ 100 mls @ 100 mls/hr 09/24/17 09:00 09/24/17 10: 11 Sodium Chloride IV 100 mls/hr Q12HR SHAUN Administration Sodium Chloride 1,000 mls @ 100 mls/hr 09/23/17 19:15 09/23/17 22:28 Sodium Chloride 0.45% IV 100 mls/hr ASDIRECTED SHAUN Administration Methylprednisolone Sodium Succinate 125 mg 09/23/17 23:00 09/24/17 10:15 Solu-Medrol IVPUSH 125 mg Q6H SHAUN Administration Mirtazapine 30 mg 09/23/17 22:30 09/23/17 22:25 Remeron PO 30 mg BEDTIME SHAUN Administration Mometasone Furoate/Formoterol Fumar 0 puff 09/23/17 22:30 09/24/17 09:26 Dulera 100-5 Mcg IH Not Given BID SHAUN Quetiapine Fumarate 50 mg 09/23/17 22:30 09/23/17 22:26 Seroquel PO 50 mg BEDTIME SHAUN Administration Sodium Chloride 10 ml 09/23/17 16:11 09/23/17 16:54 Saline Flush FLUSH 10 ml ASDIRECTED PRN Administration Keep Vein Open Triamterene/HCTZ 1 each 09/24/17 09:00 09/24/17 08:40 Dyazide 25-37.5 Mg PO 1 each DAILY SHAUN Administration Discontinued Medications Generic Name Dose Route Start Last Admin Trade Name Freq PRN Reason Stop Dose Admin Albuterol/Ipratropium Confirm 09/23/17 16:08 09/23/17 16:10 Duoneb 3.0-0.5 Mg/3 Ml Administered 09/23/17 16:09 9 ml Dose Administration 9 ml .ROUTE .STK-MED ONE Albuterol/Ipratropium 9 ml 09/23/17 16:11 09/23/17 16:12 Duoneb 3.0-0.5 Mg/3 Ml NEB 09/23/17 16:12 Not Given ONETIME ONE Doxycycline Hyclate 100 mg 09/23/17 16:54 09/23/17 17:21 Vibramycin PO 09/23/17 16:55 100 mg ONETIME ONE Administration Ketorolac Tromethamine 30 mg 09/23/17 16:28 09/23/17 16:53 Toradol IVPUSH 09/23/17 16:29 30 mg ONETIME ONE Administration Methylprednisolone Sodium Succinate 125 mg 09/23/17 16:11 09/23/17 16:45 Solu-Medrol IVPUSH 09/23/17 16:12 125 mg ONETIME ONE Administration Mirtazapine 30 mg 09/24/17 21:00 Remeron PO BEDTIME SHAUN Mometasone Furoate/Formoterol Fumar 0 puff 09/24/17 09:00 Dulera 100-5 Mcg IH BID SHAUN Quetiapine Fumarate 50 mg 09/24/17 21:00 Seroquel PO BEDTIME SHAUN - Re-Assessments/Exams Free Text/Narrative Re-Assessment/Exam: Chest x-ray shows hyperinflation, no infiltrate. Labs show normal white blood cell count, negative troponin, chemistry significant for elevated bicarbonate. Patient certainly has some degree of chronic CO2 retention. However her mental status is normal. She was given 3 back -to-back albuterol/ipratropium nebulizer treatments. Her breathing is much improved. She is now able to speak in full sentences. She is in no distress. Oxygen saturation is around 90% on her usual 4 L. Given degree of respiratory distress upon arrival and severe chronic lung disease, we'll request admission. Discussed with Dr. Mcclure who agrees to admit the patient. Departure - Departure Time of Disposition: 17:15 Disposition: Admitted As Inpatient 65 Clinical Impression: COPD exacerbation, Hypoxia, Carbon dioxide retention - Discharge Information - My Orders Last 24 Hours: My Active Orders 09/23/17 16:11 EKG 12 Lead [EKG Documentation Completion] [RC] STAT Sodium Chloride 0.9% [Saline Flush] 10 ml FLUSH ASDIRECTED PRN Blood Culture x2 Reflex Set [OM.PC] Stat Peripheral IV Insertion Adult [OM.PC] Routine 09/23/17 16:39 CULTURE BLOOD [BC] Stat 09/23/17 16:45 CULTURE BLOOD [BC] Stat - Assessment/Plan Last 24 Hours: My Active Orders 09/23/17 16:11 EKG 12 Lead [EKG Documentation Completion] [RC] STAT Sodium Chloride 0.9% [Saline Flush] 10 ml FLUSH ASDIRECTED PRN Blood Culture x2 Reflex Set [OM.PC] Stat Peripheral IV Insertion Adult [OM.PC] Routine 09/23/17 16:39 CULTURE BLOOD [BC] Stat 09/23/17 16:45 CULTURE BLOOD [BC] Stat
[2017-09-23] MEDS ORDERED: Ketorolac 30 MG/ML SDV IVPUSH ONE (16:28)
[2017-09-23] MEDS ORDERED: Doxycycline 100 MG Cap PO ONE (16:54)
--- NOTE | 2017-09-23 19:03 | PCM.HP ---
H&P History of Present Illness - General Date of Service: 09/23/17 Source of Information: Patient, Provider History Limitations: Reports: No Limitations - History of Present Illness Initial Comments - Free Text/Narative: 51 year old female with end stage COPD, O2 dependent presents with a history of progressive malaise associated with increasing JONATHON with productive cough. The sputum was described as greenish; the JONATHON had gotten progressively worse ovev 1 week. The patient has had no recent travel or sick contacts. There has been no fever or chills. She also denies N/V. Onset of Symptoms: Reports: Gradual Symptom Onset Date: 09/16/17 Duration of Symptoms: Reports: Day(s):, Getting Worse Location: Reports: Chest Quality: Reports: Same as Previous Episode Severity: Moderate Improves with: Reports: Medication Worsens with: Reports: None Associated Symptoms: Reports: cough w sputum, Malaise, Shortness of Breath, Weakness Chest Pain Score (Numeric/FACES): 7 Right Shoulder Pain Score (Numeric/FACES): 6 - Related Data Allergies/Adverse Reactions: Allergies Allergy/AdvReac Type Severity Reaction Status Date / Time No Known Allergies Allergy Verified 09/23/17 15:52 Home Medications: Home Meds Albuterol Sulfate [Albuterol Sulfate HFA] 2 puff INH BID PRN 02/25/14 [History] Budesonide/Formoterol Fumarate [Symbicort 80-4.5 Mcg Inhaler] 2 puff IH BID [History] Albuterol/Ipratropium [DuoNeb 3.0-0.5 MG/3 ML] 3 ml INH Q4HR PRN 11/03/14 [ History] Magnesium Oxide 400 mg PO DAILY 04/15/17 [History] Triamterene/Hydrochlorothiazid [Triamterene-HCTZ 37.5-25 MG] 1 each PO DAILY # 30 capsule 04/23/17 [Rx] Hydrocodone/Acetaminophen [Hydrocodon-Acetaminophn 10-325] 1 tab PO TID PRN [History] Mirtazapine [Remeron] 30 mg PO BEDTIME 08/11/17 [History] QUEtiapine Fumarate [Seroquel] 50 mg PO BEDTIME 08/11/17 [History] ALPRAZolam [Xanax] 1 mg PO Q8H PRN #15 tablet 08/15/17 [Rx] Past Medical History HEENT History: Reports: Impaired Vision Cardiovascular History: Reports: Hypertension Respiratory History: Reports: COPD Other Respiratory History: end stage COPD, pt is Oxygen dependent Gastrointestinal History: Reports: Colon Polyp Genitourinary History: Reports: Renal Calculus, Urinary Incontinence 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: Musculoskeletal History: Reports: Arthritis Other Musculoskeletal History: c/o back pain Neurological History: Reports: Migraines Psychiatric History: Reports: Anxiety, Depression Endocrine/Metabolic History: Reports: Osteoporosis Hematologic History: Reports: None - Infectious Disease History Infectious Disease History: Reports: Chicken Pox - Past Surgical History Female Surgical History: Reports: D&C, Hysterectomy Endocrine Surgical History: Reports: None Musculoskeletal Surgical History: Reports: Shoulder Replacement Dermatological Surgical History: Reports: None Social & Family History - Family History Family Medical History: Noncontributory - Tobacco Use Smoking Status *Q: Former Smoker Years of Tobacco use: 30 Packs/Tins Daily: 0.5 Used Tobacco, but Quit: No Month Tobacco Last Used: 1 Second Hand Smoke Exposure: No - Caffeine Use Caffeine Use: Reports: Soda Other Caffeine Use: 2 - Alcohol Use Days Per Week of Alcohol Use: 0 Number of Drinks Per Day: 1 Total Drinks Per Week: 0 - Recreational Drug Use Recreational Drug Use: No Drug Use in Last 12 Months: Yes Recreational Drug Type: Reports: Marijuana/Hashish Recreational Drug Use Frequency: Weekly - Living Situation & Occupation Living situation: Reports: Single, with Family (Son) Occupation: Unemployed H&P Review of Systems - Review of Systems: Review Of Systems: See Below General: Reports: Malaise, Weakness, Decreased Appetite HEENT: Reports: No Symptoms Pulmonary: Reports: Shortness of Breath, Cough, Sputum Cardiovascular: Reports: No Symptoms Gastrointestinal: Reports: No Symptoms Genitourinary: Reports: No Symptoms Musculoskeletal: Reports: No Symptoms Skin: Reports: No Symptoms Psychiatric: Reports: Anxiety Neurological: Reports: No Symptoms Hematologic/Lymphatic: Reports: No Symptoms Immunologic: Reports: No Symptoms Exam - Exam Exam: See Below - Vital Signs Vital Signs: Last Vital Signs Temp 37.4 C 09/23/17 15:53 Pulse 120 H 09/23/17 15:53 Resp 28 H 09/23/17 15:53 BP 155/90 H 09/23/17 15:53 Pulse Ox 78 L 09/23/17 16:11 Weight: 52.163 kg - Exam Quality Assessment: Supplemental Oxygen, DVT Prophylaxis General: Alert, Oriented, Cooperative HEENT: Conjunctiva Clear, Nares Patent, Normal Nasal Septum, Pupils Equal, Pupils Reactive, PERRLA Neck: Trachea Midline Lungs: Normal Respiratory Effort, Decreased Breath Sounds, Rhonchi, Wheezing Cardiovascular: Regular Rate, Tachycardia GI/Abdominal Exam: Normal Bowel Sounds, Soft, Non-Tender, No Organomegaly, No Distention (Female) Exam: Deferred Rectal (Female) Exam: Deferred Back Exam: Normal Inspection Extremities: Normal Inspection Skin: Warm Neurological: Cranial Nerves Intact, Normal Speech Neuro Extensive - Mental Status: Alert, Oriented x3 Psychiatric: Alert, Anxious - Patient Data Result Diagrams: 09/24/17 06:19 09/24/17 06:19 *Q Meaningful Use (ADM) - VTE *Q VTE Criteria *Q: - Stroke *Q Stroke Criteria *Q: - AMI *Q AMI Criteria *Q: - Problem List (1) COPD exacerbation SNOMED Code(s): 536279247093694 ICD Code: J44.1 - CHRONIC OBSTRUCTIVE PULMONARY DISEASE W (ACUTE) EXACERBATION Status: Acute Priority: High Current Visit: Yes (2) Hypoxia SNOMED Code(s): 252121311 ICD Code: R09.02 - HYPOXEMIA Status: Acute Current Visit: Yes (3) Acute bronchitis SNOMED Code(s): 10745584 ICD Code: J20.9 - ACUTE BRONCHITIS, UNSPECIFIED Status: Acute Current Visit: No (4) Anxiety SNOMED Code(s): 96900765 ICD Code: F41.9 - ANXIETY DISORDER, UNSPECIFIED Status: Acute Priority: High Current Visit: No Problem List Initiated/Reviewed/Updated: Yes Orders Last 24hrs: Active Orders 24 hr Category Date Time Status BASIC METABOLIC PANEL,BMP [CHEM] DAILY Lab 09/24/17 05:00 Ordered BASIC METABOLIC PANEL,BMP [CHEM] DAILY Lab 09/25/17 05:00 Ordered BASIC METABOLIC PANEL,BMP [CHEM] DAILY Lab 09/26/17 05:00 Ordered BASIC METABOLIC PANEL,BMP [CHEM] DAILY Lab 09/27/17 05:00 Ordered CBC WITH AUTO DIFF [HEME] DAILY Lab 09/24/17 05:00 Ordered CBC WITH AUTO DIFF [HEME] DAILY Lab 09/25/17 05:00 Ordered CBC WITH AUTO DIFF [HEME] DAILY Lab 09/26/17 05:00 Ordered CBC WITH AUTO DIFF [HEME] DAILY Lab 09/27/17 05:00 Ordered CRP [C-REACTIVE PROTEIN] [CHEM] DAILY Lab 09/24/17 05:00 Ordered CRP [C-REACTIVE PROTEIN] [CHEM] DAILY Lab 09/25/17 05:00 Ordered CRP [C-REACTIVE PROTEIN] [CHEM] DAILY Lab 09/26/17 05:00 Ordered CRP [C-REACTIVE PROTEIN] [CHEM] DAILY Lab 09/27/17 05:00 Ordered MAGNESIUM [CHEM] DAILY Lab 09/24/17 05:00 Ordered MAGNESIUM [CHEM] DAILY Lab 09/25/17 05:00 Ordered MAGNESIUM [CHEM] DAILY Lab 09/26/17 05:00 Ordered MAGNESIUM [CHEM] DAILY Lab 09/27/17 05:00 Ordered MYCOPLASMA PNEUMONIAE IGM AB [CHEM] Routine Lab 09/24/17 05:00 Ordered RESPIRATORY PANEL BY PCR [MREF] Routine Lab 09/23/17 18:49 Uncollected STREP PNEUMONIAE ANTIGEN [MREF] Routine Lab 09/24/17 05:00 Uncollected Medication Orders Sodium Chloride (Saline Flush) 10 ml FLUSH ASDIRECTED PRN PRN Reason: Keep Vein Open Last Admin: 09/23/17 16:54 Dose: 10 ml Assessment/Plan Comment:: Impression: End stage COPD O2 dependent Hypoxic COPD exacerbation Chronic Anxiety/depression HTN HLD Migraine PHILLIPS Colon Polyps Plan: [place] O2, keep sat>90% Continue Doxycycline, start IV RT for acapella, etc NEB QID/prn Pulmonary toilet Home meds Infectious work up Daily labs CM/PT/OT consults DVT/GI prophylaxis
[2017-09-23] MEDS ORDERED: Albuterol 0.083% 2.5 MG/3 ML Neb Soln NEB PRN (19:07)
[2017-09-23] MEDS ORDERED: Acetaminophen Soln 650 MG/20.3 ML UD Cup PO PRN (19:11)
[2017-09-23] MEDS ORDERED: Sodium Chloride 0.45% 1,000 ML IV SCH (19:15)
[2017-09-23] MEDS: Albuterol/Ipratropium 3.0-0.5 MG/3 ML Neb Soln NEB SCH (21:35)
[2017-09-23] MEDS ORDERED: Albuterol 6.7 GM Inhaler INH PRN (21:41)
[2017-09-23] MEDS ORDERED: Albuterol/Ipratropium 3.0-0.5 MG/3 ML Neb Soln INH PRN (21:41)
[2017-09-23] MEDS: Mirtazapine 30 MG Tab PO SCH (22:25)
[2017-09-23] MEDS: ALPRAZolam 1 MG Tab PO PRN (22:25)
[2017-09-23] MEDS: QUEtiapine 25 MG Tab PO SCH (22:26)
[2017-09-23] MEDS: Acetaminophen/HYDROcodone 325-10 MG Tab PO PRN (22:26)
[2017-09-23] MEDS: methylPREDNISolone Sodium Succinate 125 MG/2 ML SDV IVPUSH SCH (22:27)
[2017-09-24] MEDS: Formoterol/Mometasone 100-5 MCG 8.8 GM Inhaler IH SCH ×3 (01:04→21:12)
[2017-09-24] MEDS: Albuterol/Ipratropium 3.0-0.5 MG/3 ML Neb Soln NEB SCH ×4 (05:31→21:11)
[2017-09-24] MEDS: methylPREDNISolone Sodium Succinate 125 MG/2 ML SDV IVPUSH SCH ×4 (05:51→22:33)
[2017-09-24] MEDS: Acetaminophen/HYDROcodone 325-10 MG Tab PO PRN ×3 (05:51→17:58)
--- NOTE | 2017-09-24 07:18 | CR ---
Chest: Portable view of the chest was obtained. Comparison: Prior chest x-ray of 08/15/17. Heart size and mediastinum are normal. Lungs are clear but hyperinflated. Right shoulder prosthesis is partially seen. Bony structures are otherwise unremarkable. Impression: 1. Emphysematous change. Nothing acute is appreciated on portable chest x-ray. Diagnostic code #2
[2017-09-24] MEDS: Enoxaparin 40 MG/0.4 ML Syringe SUBCUT SCH (08:40)
[2017-09-24] MEDS: Hydrochlorothiazide/Triamterene 25-37.5 MG Cap PO SCH (08:40)
[2017-09-24] MEDS: ALPRAZolam 1 MG Tab PO PRN ×2 (08:40→20:09)
[2017-09-24] MEDS ORDERED: Formoterol/Mometasone 100-5 MCG 8.8 GM Inhaler IH SCH (09:00)
[2017-09-24] MEDS: Doxycycline 100 MG in Sodium Chloride 0.9% 100 ML IV SCH ×2 (10:11→20:01)
[2017-09-24] MEDS ORDERED: Magnesium Sulfate/Water 4 GM in Premix Bag 1 BAG IV ONE (14:16)
--- NOTE | 2017-09-24 14:50 | PCM.PN ---
- General Info Date of Service: 09/24/17 Functional Status: Reports: Tolerating Diet, Urinating - Review of Systems General: Reports: Weakness, Fatigue HEENT: Reports: No Symptoms Pulmonary: Reports: Shortness of Breath, Pleuritic Chest Pain Cardiovascular: Reports: No Symptoms Gastrointestinal: Reports: No Symptoms Genitourinary: Reports: No Symptoms Musculoskeletal: Reports: No Symptoms Skin: Reports: No Symptoms Neurological: Reports: No Symptoms Psychiatric: Reports: No Symptoms - Patient Data Vitals - Most Recent: Last Vital Signs Temp 36.4 C 09/24/17 03:53 Pulse 80 09/24/17 05:42 Resp 22 H 09/24/17 03:53 BP 106/69 09/24/17 03:53 Pulse Ox 89 L 09/24/17 13:00 Weight - Most Recent: 52.163 kg I&O - Last 24 Hours: Intake & Output 09/23/17 09/24/17 09/24/17 22:59 06:59 14:59 Intake Total 8645 Output Total 200 Balance 8445 Lab Results Last 24 Hours: Laboratory Results - last 24 hr 09/24/17 09/24/17 Range/Units 06:19 06:19 WBC 3.67 L (3.98-10.04) K/mm3 RBC 3.91 L (3.98-5.22) M/mm3 Hgb 11.2 (11.2-15.7) gm/L Hct 34.1 (34.1-44.9) % MCV 87.2 (79.4-94.8) fl MCH 28.6 (25.6-32.2) pg MCHC 32.8 (32.2-35.5) g/dl RDW Std Deviation 38.3 (36.4-46.3) fL Plt Count 208 (182-369) K/mm3 MPV 10.3 (9.4-12.3) fl Neut % (Auto) 85.0 H (34.0-71.1) % Lymph % (Auto) 13.9 L (19.3-51.7) % [place] % (Auto) 1.1 L (4.7-12.5) % Eos % (Auto) 0 L (0.7-5.8) Baso % (Auto) 0.0 L (0.1-1.2) % Neut # (Auto) 3.12 (1.56-6.13) K/mm3 Lymph # (Auto) 0.51 L (1.18-3.74) K/mm3 [place] # (Auto) 0.04 L (0.24-0.36) K/mm3 Eos # (Auto) 0.00 L (0.04-0.36) K/mm3 Baso # (Auto) 0.00 L (0.01-0.08) K/mm3 Sodium 139 (136-145) mEq/L Potassium 3.5 (3.5-5.1) mEq/L Chloride 97 L (98-107) mEq/L Carbon Dioxide 35 H (21-32) mEq/L Anion Gap 10.5 (5-15) BUN 15 (7-18) mg/dL Creatinine 1.0 (0.55-1.02) mg/dL Est Cr Clr Drug Dosing 51.92 mL/min Estimated GFR (MDRD) 58 (>60) mL/min BUN/Creatinine Ratio 15.0 (14-18) Glucose 240 H (74-106) mg/dL Calcium 8.8 (8.5-10.1) mg/dL Magnesium 1.6 L (1.8-2.4) mg/dl C-Reactive Protein 0.9 (<1.0) mg/dL Med Orders - Current: Current Medications Acetaminophen (Tylenol) 650 mg PO Q6H PRN PRN Reason: Fever Hydrocodone Bitart/Acetaminophen ([place] 325-10 Mg) 1 tab PO TID PRN PRN Reason: Pain Last Admin: 09/24/17 12:32 Dose: 1 tab Albuterol (Proventil Neb Soln) 2.5 mg NEB Q4HRRT PRN PRN Reason: Shortness of Breath Albuterol (Proventil Hfa) 0 gm INH BID PRN PRN Reason: Dyspnea Albuterol/Ipratropium (Duoneb 3.0-0.5 Mg/3 Ml) 3 ml NEB QIDRT SHAUN Last Admin: 09/24/17 09:26 Dose: Not Given Albuterol/Ipratropium (Duoneb 3.0-0.5 Mg/3 Ml) 3 ml INH Q4HR PRN PRN Reason: Shortness of Breath Last Admin: 09/24/17 12:57 Dose: 3 ml Alprazolam (Xanax) 1 mg PO Q8H PRN PRN Reason: Anxiety Last Admin: 09/24/17 08:40 Dose: 1 mg Benzonatate (Tessalon Perles) 100 mg PO TID PRN PRN Reason: Cough Enoxaparin Sodium (Lovenox) 40 mg SUBCUT DAILY SHAUN Last Admin: 09/24/17 08:40 Dose: 40 mg Doxycycline Hyclate 100 mg/ (Sodium Chloride) 100 mls @ 100 mls/hr IV Q12HR SHAUN Last Admin: 09/24/17 10:11 Dose: 100 mls/hr Sodium Chloride (Sodium Chloride 0.45%) 1,000 mls @ 100 mls/hr IV ASDIRECTED SHAUN Last Admin: 09/23/17 22:28 Dose: 100 mls/hr Magnesium Sulfate 4 gm/ Premix 100 mls @ 50 mls/hr IV ONETIME ONE Stop: 09/24/17 16:15 Methylprednisolone Sodium Succinate (Solu-Medrol) 125 mg IVPUSH Q6H SHAUN Last Admin: 09/24/17 10:15 Dose: 125 mg Mirtazapine (Remeron) 30 mg PO BEDTIME SHAUN Last Admin: 09/23/17 22:25 Dose: 30 mg Mometasone Furoate/Formoterol Fumar (Dulera 100-5 Mcg) 0 puff IH BID SHAUN Last Admin: 09/24/17 09:26 Dose: Not Given Quetiapine Fumarate (Seroquel) 50 mg PO BEDTIME SHAUN Last Admin: 09/23/17 22:26 Dose: 50 mg Sodium Chloride (Saline Flush) 10 ml FLUSH ASDIRECTED PRN PRN Reason: Keep Vein Open Last Admin: 09/23/17 16:54 Dose: 10 ml Triamterene/HCTZ (Dyazide 25-37.5 Mg) 1 each PO DAILY SHAUN Last Admin: 09/24/17 08:40 Dose: 1 each Discontinued Medications Albuterol/Ipratropium (Duoneb 3.0-0.5 Mg/3 Ml) Confirm Administered Dose 9 ml .ROUTE .STK-MED ONE Stop: 09/23/17 16:09 Last Admin: 09/23/17 16:10 Dose: 9 ml Albuterol/Ipratropium (Duoneb 3.0-0.5 Mg/3 Ml) 9 ml NEB ONETIME ONE Stop: 09/23/17 16:12 Last Admin: 09/23/17 16:12 Dose: Not Given Doxycycline Hyclate (Vibramycin) 100 mg PO ONETIME ONE Stop: 09/23/17 16:55 Last Admin: 09/23/17 17:21 Dose: 100 mg Ketorolac Tromethamine (Toradol) 30 mg IVPUSH ONETIME ONE Stop: 09/23/17 16:29 Last Admin: 09/23/17 16:53 Dose: 30 mg Methylprednisolone Sodium Succinate (Solu-Medrol) 125 mg IVPUSH ONETIME ONE Stop: 09/23/17 16:12 Last Admin: 09/23/17 16:45 Dose: 125 mg Mirtazapine (Remeron) 30 mg PO BEDTIME SHAUN Mometasone Furoate/Formoterol Fumar (Dulera 100-5 Mcg) 0 puff IH BID SHAUN Quetiapine Fumarate (Seroquel) 50 mg PO BEDTIME SHAUN - Exam Quality Assessment: Supplemental Oxygen, DVT Prophylaxis General: Alert, Oriented, Cooperative, No Acute Distress HEENT: Pupils Equal, Pupils Reactive, EOMI Neck: Trachea Midline, No JVD Lungs: Normal Respiratory Effort, Decreased Breath Sounds, Wheezing Cardiovascular: Regular Rate GI/Abdominal Exam: Normal Bowel Sounds, Soft, Non-Tender, No Organomegaly, No Distention (Female) Exam: Deferred Back Exam: Normal Inspection Extremities: Normal Inspection Skin: Warm Neurological: No New Focal Deficit, Normal Speech Psy/Mental Status: Alert, Anxious - Problem List & Annotations (1) COPD exacerbation SNOMED Code(s): 232189197845286 Code(s): J44.1 - CHRONIC OBSTRUCTIVE PULMONARY DISEASE W (ACUTE) EXACERBATION Status: Acute Priority: High Current Visit: Yes (2) Hypoxia SNOMED Code(s): 364234116 Code(s): R09.02 - HYPOXEMIA Status: Acute Current Visit: Yes (3) Acute bronchitis SNOMED Code(s): 97053194 Code(s): J20.9 - ACUTE BRONCHITIS, UNSPECIFIED Status: Acute Current Visit: No (4) Anxiety SNOMED Code(s): 80334272 Code(s): F41.9 - ANXIETY DISORDER, UNSPECIFIED Status: Acute Priority: High Current Visit: No - Problem List Review Problem List Initiated/Reviewed/Updated: Yes - My Orders Last 24 Hours: My Active Orders 09/23/17 19:03 Antiembolic Devices [RC] BID DEANA Hose [Antiembolic Hose] [OM.PC] Routine 09/23/17 19:07 RT Aerosol Therapy [RC] ASDIRECTED Albuterol [Proventil Neb Soln] 2.5 mg NEB Q4HRRT PRN 09/23/17 19:11 Acetaminophen [Tylenol] 650 mg PO Q6H PRN 09/23/17 19:12 Code Status [Resuscitation Status] Routine 09/23/17 19:14 Activity as Tolerated [RC] .Routine Vital Signs [RC] Q4HR Consult to Case Management [CONS] Routine Consult to Physical Therapy [PT Evaluation and Treatment] [CONS] Routine 09/23/17 19:15 Consult to Occupational Therapy [OT Evaluation and Treatment] [CONS] Routine Sodium Chloride 0.45% 1,000 ml IV ASDIRECTED 09/23/17 21:00 Albuterol/Ipratropium [DuoNeb 3.0-0.5 MG/3 ML] 3 ml NEB QIDRT 09/23/17 21:41 ALPRAZolam [Xanax] 1 mg PO Q8H PRN Acetaminophen/HYDROcodone [[place] 325-10 MG] 1 tab PO TID PRN Albuterol [Proventil HFA] 0 gm INH BID PRN Albuterol/Ipratropium [DuoNeb 3.0-0.5 MG/3 ML] 3 ml INH Q4HR PRN 09/23/17 22:00 Oxygen Therapy Adult [Oxygen Therapy] [RC] ASDIRECTED 09/23/17 22:30 Mirtazapine [Remeron] 30 mg PO BEDTIME Mometasone/Formoterol [Dulera 100-5 MCG] 0 puff IH BID QUEtiapine [SEROquel] 50 mg PO BEDTIME 09/23/17 22:50 RESPIRATORY PANEL BY PCR [MREF] Routine 09/23/17 23:00 methylPREDNISolone Sod Succ [Solu-MEDROL] 125 mg IVPUSH Q6H 09/24/17 04:01 STREP PNEUMONIAE ANTIGEN [MREF] Routine 09/24/17 06:19 BASIC METABOLIC PANEL,BMP [CHEM] DAILY CRP [C-REACTIVE PROTEIN] [CHEM] DAILY MAGNESIUM [CHEM] DAILY MYCOPLASMA PNEUMONIAE IGM AB [CHEM] Routine 09/24/17 09:00 Doxycycline [Vibramycin] 100 mg Sodium Chloride 0.9% [Normal Saline] 100 ml IV Q12HR Enoxaparin [Lovenox] 40 mg SUBCUT DAILY HCTZ/Triamterene [Dyazide 25-37.5 MG] 1 each PO DAILY 09/24/17 14:16 Magnesium Sulfate/Water [Magnesium Sulfate 4 GM in Water 100 ML] 4 gm Premix Bag 1 bag IV ONETIME 09/24/17 Lunch Regular Diet [DIET] 09/25/17 05:00 BASIC METABOLIC PANEL,BMP [CHEM] DAILY CBC WITH AUTO DIFF [HEME] DAILY CRP [C-REACTIVE PROTEIN] [CHEM] DAILY MAGNESIUM [CHEM] DAILY 09/25/17 08:00 CXR [Chest 2V] [CR] Routine 09/26/17 05:00 BASIC METABOLIC PANEL,BMP [CHEM] DAILY CBC WITH AUTO DIFF [HEME] DAILY CRP [C-REACTIVE PROTEIN] [CHEM] DAILY MAGNESIUM [CHEM] DAILY 09/27/17 05:00 BASIC METABOLIC PANEL,BMP [CHEM] DAILY CBC WITH AUTO DIFF [HEME] DAILY CRP [C-REACTIVE PROTEIN] [CHEM] DAILY MAGNESIUM [CHEM] DAILY - Plan Plan:: Impression: End stage COPD O2 dependent Hypoxic COPD exacerbation Chronic Anxiety/depression HTN HLD Migraine PHILLIPS Colon Polyps Plan: [place] O2, keep sat>90% Continue Doxycycline, start IV RT for acapella, etc NEB QID/prn Pulmonary toilet Home meds Infectious work up Daily labs CM/PT/OT consults DVT/GI prophylaxis
[2017-09-24] MEDS: QUEtiapine 25 MG Tab PO SCH (20:01)
[2017-09-24] MEDS: Mirtazapine 30 MG Tab PO SCH (20:01)
[2017-09-24] MEDS: Benzonatate 100 MG Cap PO PRN (20:02)
[2017-09-24] MEDS ORDERED: QUEtiapine 25 MG Tab PO SCH (21:00)
[2017-09-24] MEDS ORDERED: Mirtazapine 30 MG Tab PO SCH (21:00)
[2017-09-25] MEDS: methylPREDNISolone Sodium Succinate 125 MG/2 ML SDV IVPUSH SCH ×4 (04:52→22:16)
[2017-09-25] MEDS: Acetaminophen/HYDROcodone 325-10 MG Tab PO PRN ×3 (05:06→21:49)
[2017-09-25] MEDS: Benzonatate 100 MG Cap PO PRN ×3 (05:15→21:49)
[2017-09-25] MEDS: ALPRAZolam 1 MG Tab PO PRN ×3 (05:20→21:49)
[2017-09-25] MEDS: Albuterol/Ipratropium 3.0-0.5 MG/3 ML Neb Soln NEB SCH ×4 (06:48→21:41)
--- NOTE | 2017-09-25 08:57 | PCM.PN ---
- General Info Date of Service: 09/25/17 Functional Status: Reports: Tolerating Diet, Ambulating, Urinating - Review of Systems General: Reports: Weakness HEENT: Reports: No Symptoms Pulmonary: Reports: Shortness of Breath Cardiovascular: Reports: No Symptoms Gastrointestinal: Reports: No Symptoms Genitourinary: Reports: No Symptoms Musculoskeletal: Reports: No Symptoms Skin: Reports: No Symptoms Neurological: Reports: No Symptoms Psychiatric: Reports: No Symptoms - Patient Data Vitals - Most Recent: Last Vital Signs Temp 36.4 C 09/25/17 04:54 Pulse 94 09/25/17 04:54 Resp 18 09/25/17 04:54 BP 108/74 09/25/17 04:54 Pulse Ox 90 L 09/25/17 06:48 Weight - Most Recent: 51.619 kg I&O - Last 24 Hours: Intake & Output 09/24/17 09/25/17 09/25/17 22:59 06:59 14:59 Intake Total 1355 700 Output Total 900 1650 Balance 455 -950 Lab Results Last 24 Hours: Laboratory Results - last 24 hr 09/24/17 09/25/17 09/25/17 Range/Units 06:19 05:37 05:37 WBC 14.55 H (3.98-10.04) K/mm3 RBC 4.01 (3.98-5.22) M/mm3 Hgb 11.5 (11.2-15.7) gm/L Hct 35.4 (34.1-44.9) % MCV 88.3 (79.4-94.8) fl MCH 28.7 (25.6-32.2) pg MCHC 32.5 (32.2-35.5) g/dl RDW Std Deviation 40.0 (36.4-46.3) fL Plt Count 260 (182-369) K/mm3 MPV 10.7 (9.4-12.3) fl Neut % (Auto) 93.6 H (34.0-71.1) % Lymph % (Auto) 3.6 L (19.3-51.7) % [place] % (Auto) 2.6 L (4.7-12.5) % Eos % (Auto) 0 L (0.7-5.8) Baso % (Auto) 0.0 L (0.1-1.2) % Neut # (Auto) 13.61 H (1.56-6.13) K/mm3 Lymph # (Auto) 0.53 L (1.18-3.74) K/mm3 [place] # (Auto) 0.38 H (0.24-0.36) K/mm3 Eos # (Auto) 0.00 L (0.04-0.36) K/mm3 Baso # (Auto) 0.00 L (0.01-0.08) K/mm3 Manual Slide Review Abnormal smear Sodium 149 H (136-145) mEq/L Potassium 3.6 (3.5-5.1) mEq/L Chloride 105 (98-107) mEq/L Carbon Dioxide 36 H (21-32) mEq/L Anion Gap 11.6 (5-15) BUN 18 (7-18) mg/dL Creatinine 0.9 (0.55-1.02) mg/dL Est Cr Clr Drug Dosing 59.58 mL/min Estimated GFR (MDRD) > 60 (>60) mL/min BUN/Creatinine Ratio 20.0 H (14-18) Glucose 168 H (74-106) mg/dL Calcium 8.9 (8.5-10.1) mg/dL Magnesium 2.1 (1.8-2.4) mg/dl C-Reactive Protein < 0.2 (<1.0) mg/dL Mycoplasma pneumon IgM Negative (NEGATIVE) John Results Last 24 Hours: Microbiology 09/24/17 04:01 Streptococcus pneumoniae Antigen (M - Final Urine - Clean Catch Midstream 09/23/17 22:50 Respiratory Virus Panel (PCR) (JOHN) - Final Nasopharyngeal Swab - Nare, Unspecified Med Orders - Current: Current Medications Acetaminophen (Tylenol) 650 mg PO Q6H PRN PRN Reason: Fever Hydrocodone Bitart/Acetaminophen ([place] 325-10 Mg) 1 tab PO TID PRN PRN Reason: Pain Last Admin: 09/25/17 05:06 Dose: 1 tab Albuterol (Proventil Neb Soln) 2.5 mg NEB Q4HRRT PRN PRN Reason: Shortness of Breath Albuterol (Proventil Hfa) 0 gm INH BID PRN PRN Reason: Dyspnea Albuterol/Ipratropium (Duoneb 3.0-0.5 Mg/3 Ml) 3 ml NEB QIDRT SHAUN Last Admin: 09/25/17 06:48 Dose: 3 ml Albuterol/Ipratropium (Duoneb 3.0-0.5 Mg/3 Ml) 3 ml INH Q4HR PRN PRN Reason: Shortness of Breath Last Admin: 09/24/17 12:57 Dose: 3 ml Alprazolam (Xanax) 1 mg PO Q8H PRN PRN Reason: Anxiety Last Admin: 09/25/17 05:20 Dose: 1 mg Benzonatate (Tessalon Perles) 100 mg PO TID PRN PRN Reason: Cough Last Admin: 09/25/17 05:15 Dose: 100 mg Enoxaparin Sodium (Lovenox) 40 mg SUBCUT DAILY [facility] Last Admin: 09/24/17 08:40 Dose: 40 mg Doxycycline Hyclate 100 mg/ (Sodium Chloride) 100 mls @ 100 mls/hr IV Q12HR [facility] Last Admin: 09/24/17 20:01 Dose: 100 mls/hr Sodium Chloride (Sodium Chloride 0.45%) 1,000 mls @ 100 mls/hr IV ASDIRECTED [facility] Last Admin: 09/23/17 22:28 Dose: 100 mls/hr Methylprednisolone Sodium Succinate (Solu-Medrol) 125 mg IVPUSH Q6H [facility] Last Admin: 09/25/17 04:52 Dose: 125 mg Mirtazapine (Remeron) 30 mg PO BEDTIME [facility] Last Admin: 09/24/17 20:01 Dose: 30 mg Mometasone Furoate/Formoterol Fumar (Dulera 100-5 Mcg) 0 puff IH BID [facility] Last Admin: 09/24/17 21:12 Dose: Not Given Quetiapine Fumarate (Seroquel) 50 mg PO BEDTIME [facility] Last Admin: 09/24/17 20:01 Dose: 50 mg Sodium Chloride (Saline Flush) 10 ml FLUSH ASDIRECTED PRN PRN Reason: Keep Vein Open Last Admin: 09/23/17 16:54 Dose: 10 ml Triamterene/HCTZ (Dyazide 25-37.5 Mg) 1 each PO DAILY [facility] Last Admin: 09/24/17 08:40 Dose: 1 each Discontinued Medications Albuterol/Ipratropium (Duoneb 3.0-0.5 Mg/3 Ml) Confirm Administered Dose 9 ml .ROUTE .STK-MED ONE Stop: 09/23/17 16:09 Last Admin: 09/23/17 16:10 Dose: 9 ml Albuterol/Ipratropium (Duoneb 3.0-0.5 Mg/3 Ml) 9 ml NEB ONETIME ONE Stop: 09/23/17 16:12 Last Admin: 09/23/17 16:12 Dose: Not Given Doxycycline Hyclate (Vibramycin) 100 mg PO ONETIME ONE Stop: 09/23/17 16:55 Last Admin: 09/23/17 17:21 Dose: 100 mg Magnesium Sulfate 4 gm/ Premix 100 mls @ 50 mls/hr IV ONETIME ONE Stop: 09/24/17 16:15 Last Admin: 09/24/17 15:27 Dose: 50 mls/hr Ketorolac Tromethamine (Toradol) 30 mg IVPUSH ONETIME ONE Stop: 09/23/17 16:29 Last Admin: 09/23/17 16:53 Dose: 30 mg Methylprednisolone Sodium Succinate (Solu-Medrol) 125 mg IVPUSH ONETIME ONE Stop: 09/23/17 16:12 Last Admin: 09/23/17 16:45 Dose: 125 mg Mirtazapine (Remeron) 30 mg PO BEDTIME SHAUN Mometasone Furoate/Formoterol Fumar (Dulera 100-5 Mcg) 0 puff IH BID SHAUN Quetiapine Fumarate (Seroquel) 50 mg PO BEDTIME SHAUN - Exam Quality Assessment: Supplemental Oxygen, DVT Prophylaxis General: Alert, Oriented, Cooperative, No Acute Distress HEENT: Pupils Equal, Pupils Reactive, EOMI Neck: Supple, Trachea Midline Lungs: Normal Respiratory Effort, Decreased Breath Sounds, Rhonchi, Wheezing Cardiovascular: Regular Rate, Regular Rhythm GI/Abdominal Exam: Normal Bowel Sounds, Soft, Non-Tender, No Organomegaly, No Distention (Female) Exam: Deferred Back Exam: Normal Inspection Extremities: Normal Inspection, No Pedal Edema Skin: Warm Neurological: No New Focal Deficit Psy/Mental Status: Alert, Anxious - Problem List & Annotations (1) COPD exacerbation SNOMED Code(s): 153461079591181 Code(s): J44.1 - CHRONIC OBSTRUCTIVE PULMONARY DISEASE W (ACUTE) EXACERBATION Status: Acute Priority: High Current Visit: Yes (2) Hypoxia SNOMED Code(s): 293788621 Code(s): R09.02 - HYPOXEMIA Status: Acute Current Visit: Yes (3) Acute bronchitis SNOMED Code(s): 21855927 Code(s): J20.9 - ACUTE BRONCHITIS, UNSPECIFIED Status: Acute Current Visit: No (4) Anxiety SNOMED Code(s): 91780620 Code(s): F41.9 - ANXIETY DISORDER, UNSPECIFIED Status: Acute Priority: High Current Visit: No - Problem List Review Problem List Initiated/Reviewed/Updated: Yes - My Orders Last 24 Hours: My Active Orders 09/24/17 09:00 Doxycycline [Vibramycin] 100 mg Sodium Chloride 0.9% [Normal Saline] 100 ml IV Q12HR Enoxaparin [Lovenox] 40 mg SUBCUT DAILY HCTZ/Triamterene [Dyazide 25-37.5 MG] 1 each PO DAILY 09/24/17 Lunch Regular Diet [DIET] 09/25/17 08:00 CXR [Chest 2V] [CR] Routine 09/26/17 05:00 BASIC METABOLIC PANEL,BMP [CHEM] DAILY CBC WITH AUTO DIFF [HEME] DAILY CRP [C-REACTIVE PROTEIN] [CHEM] DAILY MAGNESIUM [CHEM] DAILY 09/27/17 05:00 BASIC METABOLIC PANEL,BMP [CHEM] DAILY CBC WITH AUTO DIFF [HEME] DAILY CRP [C-REACTIVE PROTEIN] [CHEM] DAILY MAGNESIUM [CHEM] DAILY - Plan Plan:: Impression: End stage COPD O2 dependent Hypoxic COPD exacerbation Chronic Anxiety/depression HTN HLD Migraine PHILLIPS Colon Polyps Plan: [place] O2, keep sat>90% Continue Doxycycline, start IV RT for acapella, etc NEB QID/prn Pulmonary toilet Home meds Infectious work up Daily labs CM/PT/OT consults DVT/GI prophylaxis LOS expected >96 hours, will monitor progress; resume pul[place] rehab [place].
--- NOTE | 2017-09-25 09:19 | CR ---
Chest: 2 views of the chest were obtained. Comparison: Prior chest x-ray of 09/23/17. Heart size and mediastinum are normal. Lungs are clear but hyperinflated. Mild scoliosis is seen. Right shoulder prosthesis is noted. Impression: 1. Emphysematous change. Nothing acute is seen. No significant change from prior chest x-ray is seen. Diagnostic code #2
[2017-09-25] MEDS: Enoxaparin 40 MG/0.4 ML Syringe SUBCUT SCH (09:50)
[2017-09-25] MEDS: Doxycycline 100 MG in Sodium Chloride 0.9% 100 ML IV SCH ×2 (09:54→20:00)
[2017-09-25] MEDS: Hydrochlorothiazide/Triamterene 25-37.5 MG Cap PO SCH (09:54)
[2017-09-25] MEDS: Formoterol/Mometasone 100-5 MCG 8.8 GM Inhaler IH SCH ×2 (11:16→21:41)
[2017-09-25] MEDS: QUEtiapine 25 MG Tab PO SCH (21:48)
[2017-09-25] MEDS: Mirtazapine 30 MG Tab PO SCH (21:49)
[2017-09-26] MEDS: methylPREDNISolone Sodium Succinate 125 MG/2 ML SDV IVPUSH SCH ×3 (05:00→16:39)
[2017-09-26] MEDS: Albuterol/Ipratropium 3.0-0.5 MG/3 ML Neb Soln NEB SCH ×4 (06:45→20:58)
[2017-09-26] MEDS: Acetaminophen/HYDROcodone 325-10 MG Tab PO PRN ×3 (07:38→20:39)
[2017-09-26] MEDS: Benzonatate 100 MG Cap PO PRN ×2 (07:38→16:38)
[2017-09-26] MEDS: ALPRAZolam 1 MG Tab PO PRN ×2 (07:38→16:38)
[2017-09-26] MEDS: Enoxaparin 40 MG/0.4 ML Syringe SUBCUT SCH (09:04)
[2017-09-26] MEDS: Doxycycline 100 MG in Sodium Chloride 0.9% 100 ML IV SCH (09:06)
[2017-09-26] MEDS: Hydrochlorothiazide/Triamterene 25-37.5 MG Cap PO SCH (09:06)
[2017-09-26] MEDS: Formoterol/Mometasone 100-5 MCG 8.8 GM Inhaler IH SCH ×2 (10:41→20:58)
--- NOTE | 2017-09-26 12:17 | PCM.PN ---
- General Info Date of Service: 09/26/17 Admission Dx/Problem (Free Text): COPD Exacerbation Subjective Update: Follow Up Functional Status: Reports: Pain Controlled, Tolerating Diet, Ambulating, Urinating. Denies: New Symptoms - Review of Systems General: Denies: Fever, Chills HEENT: Reports: No Symptoms Pulmonary: Reports: Shortness of Breath, Cough Cardiovascular: Reports: Dyspnea on Exertion. Denies: Chest Pain, Lightheadedness Gastrointestinal: Denies: Abdominal Pain, Nausea, Vomiting Genitourinary: Reports: No Symptoms Musculoskeletal: Reports: No Symptoms Skin: Denies: Cyanosis Neurological: Reports: Confusion. Denies: Difficulty Walking, Weakness, Gait Disturbance Psychiatric: Reports: Agitation. Denies: Depression, Hallucinations Systems Review Comment:: No significant overnight or acute issues. She is about the same. She has good days and bad days. She feels lousy and appetite is okay. She has no new complaints. She wants to know if we can increase the frequency of her pain pill. Her K is slightly low at 3.4. - Patient Data Vitals - Most Recent: Last Vital Signs Temp 36.8 C 09/26/17 08:17 Pulse 75 09/26/17 08:17 Resp 24 H 09/26/17 08:17 BP 119/82 09/26/17 08:17 Pulse Ox 90 L 09/26/17 10:43 Weight - Most Recent: 52.435 kg I&O - Last 24 Hours: Intake & Output 09/25/17 09/26/17 09/26/17 22:59 06:59 14:59 Intake Total 1120 500 Output Total 2000 Balance -880 500 Lab Results Last 24 Hours: Laboratory Results - last 24 hr 09/26/17 09/26/17 Range/Units 06:18 06:18 WBC 11.55 H (3.98-10.04) K/mm3 RBC 3.85 L (3.98-5.22) M/mm3 Hgb 10.8 L (11.2-15.7) gm/L Hct 34.4 (34.1-44.9) % MCV 89.4 (79.4-94.8) fl MCH 28.1 (25.6-32.2) pg MCHC 31.4 L (32.2-35.5) g/dl RDW Std Deviation 42.0 (36.4-46.3) fL Plt Count 259 (182-369) K/mm3 MPV 10.4 (9.4-12.3) fl Neut % (Auto) 93.7 H (34.0-71.1) % Lymph % (Auto) 3.9 L (19.3-51.7) % [place] % (Auto) 2.2 L (4.7-12.5) % Eos % (Auto) 0 L (0.7-5.8) Baso % (Auto) 0.0 L (0.1-1.2) % Neut # (Auto) 10.83 H (1.56-6.13) K/mm3 Lymph # (Auto) 0.45 L (1.18-3.74) K/mm3 [place] # (Auto) 0.25 (0.24-0.36) K/mm3 Eos # (Auto) 0.00 L (0.04-0.36) K/mm3 Baso # (Auto) 0.00 L (0.01-0.08) K/mm3 Manual Slide Review Abnormal smear Sodium 144 (136-145) mEq/L Potassium 3.4 L (3.5-5.1) mEq/L Chloride 102 (98-107) mEq/L Carbon Dioxide 37 H (21-32) mEq/L Anion Gap 8.4 (5-15) BUN 21 H (7-18) mg/dL Creatinine 0.8 (0.55-1.02) mg/dL Est Cr Clr Drug Dosing 67.03 mL/min Estimated GFR (MDRD) > 60 (>60) mL/min BUN/Creatinine Ratio 26.3 H (14-18) Glucose 134 H (74-106) mg/dL Calcium 8.9 (8.5-10.1) mg/dL Magnesium 1.8 (1.8-2.4) mg/dl C-Reactive Protein < 0.2 (<1.0) mg/dL John Results Last 24 Hours: Microbiology 09/24/17 04:01 Streptococcus pneumoniae Antigen (M - Final Urine - Clean Catch Midstream Med Orders - Current: Current Medications Acetaminophen (Tylenol) 650 mg PO Q6H PRN PRN Reason: Fever Hydrocodone Bitart/Acetaminophen ([place] 325-10 Mg) 1 tab PO TID PRN PRN Reason: Pain Last Admin: 09/26/17 07:38 Dose: 1 tab Albuterol (Proventil Neb Soln) 2.5 mg NEB Q4HRRT PRN PRN Reason: Shortness of Breath Albuterol (Proventil Hfa) 0 gm INH BID PRN PRN Reason: Dyspnea Albuterol/Ipratropium (Duoneb 3.0-0.5 Mg/3 Ml) 3 ml NEB QIDRT SHAUN Last Admin: 09/26/17 10:42 Dose: 3 ml Albuterol/Ipratropium (Duoneb 3.0-0.5 Mg/3 Ml) 3 ml INH Q4HR PRN PRN Reason: Shortness of Breath Last Admin: 09/24/17 12:57 Dose: 3 ml Alprazolam (Xanax) 1 mg PO Q8H PRN PRN Reason: Anxiety Last Admin: 09/26/17 07:38 Dose: 1 mg Benzonatate (Tessalon Perles) 100 mg PO TID PRN PRN Reason: Cough Last Admin: 09/26/17 07:38 Dose: 100 mg Enoxaparin Sodium (Lovenox) 40 mg SUBCUT DAILY [facility] Last Admin: 09/26/17 09:04 Dose: 40 mg Doxycycline Hyclate 100 mg/ (Sodium Chloride) 100 mls @ 100 mls/hr IV Q12HR [facility] Last Admin: 09/26/17 09:06 Dose: 100 mls/hr Sodium Chloride (Sodium Chloride 0.45%) 1,000 mls @ 100 mls/hr IV ASDIRECTED [facility] Last Admin: 09/23/17 22:28 Dose: 100 mls/hr Methylprednisolone Sodium Succinate (Solu-Medrol) 125 mg IVPUSH Q6H [facility] Last Admin: 09/26/17 11:36 Dose: 125 mg Mirtazapine (Remeron) 30 mg PO BEDTIME [facility] Last Admin: 09/25/17 21:49 Dose: 30 mg Mometasone Furoate/Formoterol Fumar (Dulera 100-5 Mcg) 0 puff IH BID [facility] Last Admin: 09/26/17 10:41 Dose: Not Given Quetiapine Fumarate (Seroquel) 50 mg PO BEDTIME [facility] Last Admin: 09/25/17 21:48 Dose: 50 mg Sodium Chloride (Saline Flush) 10 ml FLUSH ASDIRECTED PRN PRN Reason: Keep Vein Open Last Admin: 09/23/17 16:54 Dose: 10 ml Triamterene/HCTZ (Dyazide 25-37.5 Mg) 1 each PO DAILY [facility] Last Admin: 09/26/17 09:06 Dose: 1 each Discontinued Medications Albuterol/Ipratropium (Duoneb 3.0-0.5 Mg/3 Ml) Confirm Administered Dose 9 ml .ROUTE .STK-MED ONE Stop: 09/23/17 16:09 Last Admin: 09/23/17 16:10 Dose: 9 ml Albuterol/Ipratropium (Duoneb 3.0-0.5 Mg/3 Ml) 9 ml NEB ONETIME ONE Stop: 09/23/17 16:12 Last Admin: 09/23/17 16:12 Dose: Not Given Doxycycline Hyclate (Vibramycin) 100 mg PO ONETIME ONE Stop: 09/23/17 16:55 Last Admin: 09/23/17 17:21 Dose: 100 mg Magnesium Sulfate 4 gm/ Premix 100 mls @ 50 mls/hr IV ONETIME ONE Stop: 09/24/17 16:15 Last Admin: 09/24/17 15:27 Dose: 50 mls/hr Ketorolac Tromethamine (Toradol) 30 mg IVPUSH ONETIME ONE Stop: 09/23/17 16:29 Last Admin: 09/23/17 16:53 Dose: 30 mg Methylprednisolone Sodium Succinate (Solu-Medrol) 125 mg IVPUSH ONETIME ONE Stop: 09/23/17 16:12 Last Admin: 09/23/17 16:45 Dose: 125 mg Mirtazapine (Remeron) 30 mg PO BEDTIME [facility] Mometasone Furoate/Formoterol Fumar (Dulera 100-5 Mcg) 0 puff IH BID [facility] Quetiapine Fumarate (Seroquel) 50 mg PO BEDTIME [facility] - Exam Quality Assessment: Supplemental Oxygen General: Alert, Oriented, Mild Distress, Other (emaciated) HEENT: Pupils Equal, Pupils Reactive, EOMI, Mucous Membr. Moist/Evaro Neck: Supple, Trachea Midline Lungs: Normal Respiratory Effort, Decreased Breath Sounds, Other (Aeration is tight ) Cardiovascular: Other (Distant heart sounds) GI/Abdominal Exam: Normal Bowel Sounds, Soft, Non-Tender, No Organomegaly, No Distention, No Abnormal Bruit, No Mass, Pelvis Stable (Female) Exam: Deferred Back Exam: Normal Inspection, Decreased Range of Motion Extremities: Normal Inspection, Normal Range of Motion, Non-Tender, No Pedal Edema, Normal Capillary Refill Peripheral Pulses: 2+: Dorsalis Pedis (L), Dorsalis Pedis (R) Skin: Warm, Dry, Intact Neurological: No New Focal Deficit Psy/Mental Status: Alert, Normal Affect, Normal Mood - Problem List Review Problem List Initiated/Reviewed/Updated: Yes - Plan Plan:: Impression: Acute: End stage COPD O2 dependent - Acute on Chronic - Will d/c Doxy and start oral Azithromycin - Resume oral magnesium supplement - Continue bronchodilators, steroids, supplemental O2, and anxiolytic Hypokalemia - K 3.4 - 40 mEq oral supplement - Monitor level Chronic: Anxiety/depression HTN HLD Respiratory Failure Migraine PHILLIPS Colon Polyps Plan: She is essentially the same clinically RT for Acapella/IS Infectious work up: Strep pneumoniae, RSV and Blood Cx all negative Daily labs Cut down steroids dose PRN Morphine for Dyspnea CM/PT/OT consults DVT/GI prophylaxis Follow up with Dr. Tena after d/c Continue pulmo rehab after d/c Long tern overall prognosis is poor LOS expected > 96 hours, slow response to treatment
[2017-09-26] MEDS ORDERED: methylPREDNISolone Sodium Succinate 125 MG/2 ML SDV IVPUSH SCH (18:00)
[2017-09-26] MEDS ORDERED: Morphine 4 MG/ML Syringe IVPUSH PRN (18:18)
[2017-09-26] MEDS ORDERED: Potassium Chloride 20 MEQ Tab.ER PO ONE (19:00)
[2017-09-26] MEDS: Mirtazapine 30 MG Tab PO SCH (20:39)
[2017-09-26] MEDS: QUEtiapine 25 MG Tab PO SCH (20:40)
[2017-09-27] MEDS: Benzonatate 100 MG Cap PO PRN ×2 (00:32→09:32)
[2017-09-27] MEDS: ALPRAZolam 1 MG Tab PO PRN ×3 (00:33→18:04)
[2017-09-27] MEDS: Albuterol/Ipratropium 3.0-0.5 MG/3 ML Neb Soln NEB SCH ×4 (07:04→21:58)
[2017-09-27] MEDS: Acetaminophen/HYDROcodone 325-10 MG Tab PO PRN ×3 (07:47→21:50)
[2017-09-27] MEDS: Azithromycin 250 MG Tab PO SCH (09:32)
[2017-09-27] MEDS: methylPREDNISolone Sodium Succinate 40 MG/1 ML SDV IVPUSH SCH ×2 (09:32→18:04)
[2017-09-27] MEDS: Enoxaparin 40 MG/0.4 ML Syringe SUBCUT SCH (09:32)
[2017-09-27] MEDS: Magnesium Oxide 400 MG Tab PO SCH (09:32)
[2017-09-27] MEDS: Hydrochlorothiazide/Triamterene 25-37.5 MG Cap PO SCH (09:32)
[2017-09-27] MEDS: Formoterol/Mometasone 100-5 MCG 8.8 GM Inhaler IH SCH ×2 (10:53→21:57)
--- NOTE | 2017-09-27 14:09 | PCM.PN ---
- General Info Date of Service: 09/27/17 Admission Dx/Problem (Free Text): COPD Exacerbation Subjective Update: Follow Up Functional Status: Reports: Pain Controlled, Tolerating Diet, Ambulating, Urinating. Denies: New Symptoms - Review of Systems General: Denies: Fever, Chills HEENT: Reports: No Symptoms Pulmonary: Reports: Shortness of Breath, Cough, Sputum Cardiovascular: Reports: Dyspnea on Exertion. Denies: Chest Pain Gastrointestinal: Denies: Abdominal Pain, Nausea, Vomiting Genitourinary: Reports: Incontinence Musculoskeletal: Reports: No Symptoms Skin: Denies: Cyanosis Neurological: Denies: Confusion, Difficulty Walking, Weakness, Gait Disturbance Psychiatric: Denies: Depression, Mood Lability, Anxiety, Agitation Systems Review Comment:: No significant overnight or acute issues. She is essentially the same. She reports no new complaints. Her vitals are stable. - Patient Data Vitals - Most Recent: Last Vital Signs Temp 37.1 C 09/27/17 12:47 Pulse 99 09/27/17 12:47 Resp 18 09/27/17 12:47 BP 127/78 09/27/17 12:47 Pulse Ox 94 L 09/27/17 12:47 Weight - Most Recent: 52.98 kg I&O - Last 24 Hours: Intake & Output 09/26/17 09/27/17 09/27/17 22:59 06:59 14:59 Intake Total 640 650 330 Balance 640 650 330 Lab Results Last 24 Hours: Laboratory Results - last 24 hr 09/27/17 09/27/17 Range/Units 06:22 06:22 WBC 11.07 H (3.98-10.04) K/mm3 RBC 4.19 (3.98-5.22) M/mm3 Hgb 11.9 (11.2-15.7) gm/L Hct 37.4 (34.1-44.9) % MCV 89.3 (79.4-94.8) fl MCH 28.4 (25.6-32.2) pg MCHC 31.8 L (32.2-35.5) g/dl RDW Std Deviation 42.8 (36.4-46.3) fL Plt Count 284 (182-369) K/mm3 MPV 10.3 (9.4-12.3) fl Neut % (Auto) 84.5 H (34.0-71.1) % Lymph % (Auto) 6.8 L (19.3-51.7) % [place] % (Auto) 8.4 (4.7-12.5) % Eos % (Auto) 0 L (0.7-5.8) Baso % (Auto) 0.0 L (0.1-1.2) % Neut # (Auto) 9.36 H (1.56-6.13) K/mm3 Lymph # (Auto) 0.75 L (1.18-3.74) K/mm3 [place] # (Auto) 0.93 H (0.24-0.36) K/mm3 Eos # (Auto) 0.00 L (0.04-0.36) K/mm3 Baso # (Auto) 0.00 L (0.01-0.08) K/mm3 Manual Slide Review Abnormal smear Sodium 143 (136-145) mEq/L Potassium 4.0 (3.5-5.1) mEq/L Chloride 103 (98-107) mEq/L Carbon Dioxide 36 H (21-32) mEq/L Anion Gap 8.0 (5-15) BUN 28 H (7-18) mg/dL Creatinine 0.9 (0.55-1.02) mg/dL Est Cr Clr Drug Dosing 61.15 mL/min Estimated GFR (MDRD) > 60 (>60) mL/min BUN/Creatinine Ratio 31.1 H (14-18) Glucose 114 H (74-106) mg/dL Calcium 8.8 (8.5-10.1) mg/dL Magnesium 1.8 (1.8-2.4) mg/dl C-Reactive Protein < 0.2 (<1.0) mg/dL Med Orders - Current: Current Medications Acetaminophen (Tylenol) 650 mg PO Q6H PRN PRN Reason: Fever Hydrocodone Bitart/Acetaminophen ([place] 325-10 Mg) 1 tab PO Q6H PRN PRN Reason: Pain Last Admin: 09/27/17 14:05 Dose: 1 tab Albuterol (Proventil Neb Soln) 2.5 mg NEB Q4HRRT PRN PRN Reason: Shortness of Breath Albuterol (Proventil Hfa) 0 gm INH BID PRN PRN Reason: Dyspnea Albuterol/Ipratropium (Duoneb 3.0-0.5 Mg/3 Ml) 3 ml NEB QIDRT [facility] Last Admin: 09/27/17 10:53 Dose: 3 ml Albuterol/Ipratropium (Duoneb 3.0-0.5 Mg/3 Ml) 3 ml INH Q4HR PRN PRN Reason: Shortness of Breath Last Admin: 09/24/17 12:57 Dose: 3 ml Alprazolam (Xanax) 1 mg PO Q8H PRN PRN Reason: Anxiety Last Admin: 09/27/17 09:32 Dose: 1 mg Azithromycin (Zithromax) 250 mg PO DAILY [facility] Last Admin: 09/27/17 09:32 Dose: 250 mg Benzonatate (Tessalon Perles) 100 mg PO TID PRN PRN Reason: Cough Last Admin: 09/27/17 09:32 Dose: 100 mg Enoxaparin Sodium (Lovenox) 40 mg SUBCUT DAILY [facility] Last Admin: 09/27/17 09:32 Dose: 40 mg Magnesium Oxide (Magnesium Oxide) 400 mg PO DAILY [facility] Last Admin: 09/27/17 09:32 Dose: 400 mg Magnesium Sulfate (Pharmacy To Dose - Magnesium Replacement) 0 dose .XX ASDIRECTED PRN PRN Reason: RX TO WATCH MAG LEVELS Methylprednisolone Sodium Succinate (Solu-Medrol) 80 mg IVPUSH Q8H [facility] Last Admin: 09/27/17 09:32 Dose: 80 mg Mirtazapine (Remeron) 30 mg PO BEDTIME [facility] Last Admin: 09/26/17 20:39 Dose: 30 mg Mometasone Furoate/Formoterol Fumar (Dulera 100-5 Mcg) 0 puff IH BID [facility] Last Admin: 09/27/17 10:53 Dose: Not Given Morphine Sulfate (Morphine) 1 mg IVPUSH Q4H PRN PRN Reason: Other Potassium Chloride (Pharmacy To Dose - Potassium Replacement) 0 dose .XX ASDIRECTED PRN PRN Reason: RX TO WATCH K LEVELS Quetiapine Fumarate (Seroquel) 50 mg PO BEDTIME [facility] Last Admin: 09/26/17 20:40 Dose: 50 mg Sodium Chloride (Saline Flush) 10 ml FLUSH ASDIRECTED PRN PRN Reason: Keep Vein Open Last Admin: 09/23/17 16:54 Dose: 10 ml Triamterene/HCTZ (Dyazide 25-37.5 Mg) 1 each PO DAILY [facility] Last Admin: 09/27/17 09:32 Dose: 1 each Discontinued Medications Hydrocodone Bitart/Acetaminophen ([place] 325-10 Mg) 1 tab PO TID PRN PRN Reason: Pain Last Admin: 09/26/17 07:38 Dose: 1 tab Albuterol/Ipratropium (Duoneb 3.0-0.5 Mg/3 Ml) Confirm Administered Dose 9 ml .ROUTE .STK-MED ONE Stop: 09/23/17 16:09 Last Admin: 09/23/17 16:10 Dose: 9 ml Albuterol/Ipratropium (Duoneb 3.0-0.5 Mg/3 Ml) 9 ml NEB ONETIME ONE Stop: 09/23/17 16:12 Last Admin: 09/23/17 16:12 Dose: Not Given Doxycycline Hyclate (Vibramycin) 100 mg PO ONETIME ONE Stop: 09/23/17 16:55 Last Admin: 09/23/17 17:21 Dose: 100 mg Doxycycline Hyclate 100 mg/ (Sodium Chloride) 100 mls @ 100 mls/hr IV Q12HR [facility] Last Admin: 09/26/17 09:06 Dose: 100 mls/hr Sodium Chloride (Sodium Chloride 0.45%) 1,000 mls @ 100 mls/hr IV ASDIRECTED [facility] Last Admin: 09/23/17 22:28 Dose: 100 mls/hr Magnesium Sulfate 4 gm/ Premix 100 mls @ 50 mls/hr IV ONETIME ONE Stop: 09/24/17 16:15 Last Admin: 09/24/17 15:27 Dose: 50 mls/hr Ketorolac Tromethamine (Toradol) 30 mg IVPUSH ONETIME ONE Stop: 09/23/17 16:29 Last Admin: 09/23/17 16:53 Dose: 30 mg Methylprednisolone Sodium Succinate (Solu-Medrol) 125 mg IVPUSH ONETIME ONE Stop: 09/23/17 16:12 Last Admin: 09/23/17 16:45 Dose: 125 mg Methylprednisolone Sodium Succinate (Solu-Medrol) 125 mg IVPUSH Q6H [facility] Last Admin: 09/26/17 16:39 Dose: 125 mg Methylprednisolone Sodium Succinate (Solu-Medrol) 80 mg IVPUSH Q8H [facility] Last Admin: 09/26/17 21:29 Dose: Not Given Mirtazapine (Remeron) 30 mg PO BEDTIME [facility] Mometasone Furoate/Formoterol Fumar (Dulera 100-5 Mcg) 0 puff IH BID [facility] Potassium Chloride (Klor-Con M20) 40 meq PO ONETIME ONE Stop: 09/26/17 19:01 Last Admin: 09/26/17 20:39 Dose: 40 meq Quetiapine Fumarate (Seroquel) 50 mg PO BEDTIME [facility] - Exam Quality Assessment: Supplemental Oxygen General: Alert, Oriented, Cooperative, No Acute Distress, Other (emaciated) HEENT: Pupils Equal, Pupils Reactive, EOMI, Mucous Membr. Moist/[place] Neck: Supple, Trachea Midline, No JVD Lungs: Normal Respiratory Effort, Decreased Breath Sounds, Other (tight aeration ) Cardiovascular: Regular Rate, Regular Rhythm GI/Abdominal Exam: Normal Bowel Sounds, Soft, Non-Tender, No Organomegaly, No Distention, No Abnormal Bruit, No Mass (Female) Exam: Deferred Back Exam: Normal Inspection, Decreased Range of Motion Extremities: Normal Inspection, Normal Range of Motion, Non-Tender, No Pedal Edema, Normal Capillary Refill, Other (muscle wasting) Peripheral Pulses: 2+: Dorsalis Pedis (L), Dorsalis Pedis (R) Skin: Warm, Dry, Intact Neurological: No New Focal Deficit Psy/Mental Status: Alert, Normal Affect, Normal Mood - Problem List Review Problem List Initiated/Reviewed/Updated: Yes - My Orders Last 24 Hours: My Active Orders 09/26/17 13:53 Acetaminophen/HYDROcodone [Muse 325-10 MG] 1 tab PO Q6H PRN 09/26/17 18:18 Morphine 1 mg IVPUSH Q4H PRN 09/26/17 19:00 Magnesium Rep Pharmacy to Dose [Pharmacy to Dose - Magnesium Replacement] 0 dose .XX ASDIRECTED PRN Potassium Rep Pharmacy to Dose [Pharmacy to Dose - Potassium Replacement] 0 dose .XX ASDIRECTED PRN 09/27/17 09:00 Azithromycin [Zithromax] 250 mg PO DAILY Magn[facility] Oxide 400 mg PO DAILY methylPREDNISolone Sod Succ [Solu-MEDROL] 80 mg IVPUSH Q8H - Plan Plan:: Impression: Acute: End Stage COPD O2 Dependent - Acute on Chronic - Will d/c Doxy and start oral Azithromycin - Resume oral magnesium supplement - Continue bronchodilators, steroids, supplemental O2, and anxiolytic - Appears to be at baseline now Resolved Hypokalemia - K 3.4 --> 4.0 - 40 mEq oral supplement - Monitor level Chronic: Anxiety/depression HTN HLD Respiratory Failure Migraine PHILLIPS Colon Polyps Plan: She is essentially the same clinically; she agrees to leave tomorrow RT for Acapella/IS PRN Morphine for Dyspnea CM/PT/OT consults DVT/GI prophylaxis Follow up with Dr. Tena after d/c Continue pulmo rehab after d/c Long tern overall prognosis is poor Possible d/c in AM
[2017-09-27] MEDS: Mirtazapine 30 MG Tab PO SCH (21:50)
[2017-09-27] MEDS: QUEtiapine 25 MG Tab PO SCH (21:52)
[2017-09-28] MEDS: methylPREDNISolone Sodium Succinate 40 MG/1 ML SDV IVPUSH SCH ×2 (00:40→14:44)
[2017-09-28] MEDS: ALPRAZolam 1 MG Tab PO PRN (03:02)
[2017-09-28] MEDS: Albuterol/Ipratropium 3.0-0.5 MG/3 ML Neb Soln NEB SCH ×2 (06:50→12:15)
[2017-09-28] MEDS: Formoterol/Mometasone 100-5 MCG 8.8 GM Inhaler IH SCH (09:15)
[2017-09-28] MEDS: Acetaminophen/HYDROcodone 325-10 MG Tab PO PRN (13:33)
[2017-09-28] MEDS: Enoxaparin 40 MG/0.4 ML Syringe SUBCUT SCH (14:03)
[2017-09-28] MEDS: Hydrochlorothiazide/Triamterene 25-37.5 MG Cap PO SCH (14:03)
[2017-09-28] MEDS: Magnesium Oxide 400 MG Tab PO SCH (14:43)
[2017-09-28] MEDS: Azithromycin 250 MG Tab PO SCH (14:44)
[2017-09-28 16:19] VITALS: BP 147/93
--- NOTE | 2017-09-28 16:37 | PCM.DCSUM1 ---
Discharge Summary - Hospital Course Free Text/Narrative:: The patient is a 51-year-old female with a history of severe COPD who is oxygen dependent and normally at 4 L nasal cannula presents with difficulty breathing. She states that she's been feeling ill for about a week. She's had progressive shortness of breath. She's had a productive cough with green sputum. No fever. She has some chest discomfort associated with coughing. She has been using nebulizer treatments in the morning and at night but hasn't really been using her rescue inhaler, not clear why. She feels like the nebulizer treatments work better that she's had unrelated medical appointments today and so was able to use it. She also has a mild stuffy nose and sore throat. No abdominal pain or vomiting. - Discharge Data Discharge Date: 09/28/17 Discharge Disposition: Home, Self-Care 01 Condition: Poor - Patient Summary/Data Operative Procedure(s) Performed: None Complications: None Consults: Consultations 09/23/17 19:14 Consult to Case Management [CONS] Routine Consult to Physical Therapy [PT Evaluation and Treatment] [CONS] Routine 09/23/17 19:15 Consult to Occupational Therapy [OT Evaluation and Treatment] [CONS] Routine Labs Pending at D/C: None Recommended Follow-up Testing/Procedures: Follow up with [facility] within 5-7 days Cont with Pulm Rehab after discharge Planned Operative Procedure(s) after DC: None Hospital Course: Impression: Acute: End Stage COPD O2 Dependent - Acute on Chronic - Will d/c Doxy and start oral Azithromycin - Resume oral magnesium supplement - Continue bronchodilators, steroids, supplemental O2, and anxiolytic - Appears to be at baseline now Resolved Hypokalemia - K 3.4 --> 4.0 - 40 mEq oral supplement - Monitor level Chronic: Anxiety/depression HTN HLD Respiratory Failure Migraine PHILLIPS Colon Polyps Plan: She is essentially the same clinically RT for Acapella/IS PRN Morphine for Dyspnea CM/PT/OT consults DVT/GI prophylaxis Follow up with Dr. Tena after d/c Continue pulmo rehab after d/c Long tern overall prognosis is poor Possible d/c in AM - Patient Instructions Diet: Usual Diet as Tolerated, Low Sodium Activity: Apply Ice Driving: Do Not Drive Showering/Bathing: May Shower Notify Provider of: Fever, Increased Pain, Nausea and/or Vomiting - Discharge Plan Home Medications: Home Meds Albuterol Sulfate [Albuterol Sulfate HFA] 2 puff INH BID PRN 02/25/14 [History] Budesonide/Formoterol Fumarate [Symbicort 80-4.5 Mcg Inhaler] 2 puff IH BID [History] Albuterol/Ipratropium [DuoNeb 3.0-0.5 MG/3 ML] 3 ml INH Q4HR PRN 11/03/14 [ History] Magnesium Oxide 400 mg PO DAILY 04/15/17 [History] Triamterene/Hydrochlorothiazid [Triamterene-HCTZ 37.5-25 MG] 1 each PO DAILY # 30 capsule 04/23/17 [Rx] Hydrocodone/Acetaminophen [Hydrocodon-Acetaminophn 10-325] 1 tab PO TID PRN [History] Mirtazapine [Remeron] 30 mg PO BEDTIME 08/11/17 [History] QUEtiapine Fumarate [Seroquel] 50 mg PO BEDTIME 08/11/17 [History] ALPRAZolam [Xanax] 1 mg PO Q8H PRN #15 tablet 08/15/17 [Rx] Forms: ED Department Discharge Referrals: Liza Fernandez [facility] [Primary Care Provider] - - Discharge Summary/Plan Comment DC Time >30 min.: Yes (40 min) - General Info Date of Service: 09/28/17 Admission Dx/Problem (Free Text: COPD Exacerbation Functional Status: Reports: Pain Controlled, Tolerating Diet, Ambulating, Urinating, Incentive Spirometry. Denies: New Symptoms - Review of Systems General: Reports: No Symptoms, Weakness (generalized/chronic- baseline) HEENT: Reports: No Symptoms Pulmonary: Reports: Shortness of Breath (chronic- baseline), Cough (chronic- baseline) Cardiovascular: Reports: Dyspnea on Exertion (chornic- baseline). Denies: Chest Pain Gastrointestinal: Reports: No Symptoms Genitourinary: Reports: No Symptoms Musculoskeletal: Reports: No Symptoms Skin: Reports: No Symptoms Neurological: Reports: No Symptoms Psychiatric: Reports: No Symptoms - Patient Data Vitals - Most Recent: Last Vital Signs Temp 97.9 F 09/28/17 00:22 Pulse 88 09/28/17 00:22 Resp 18 12/19/17 00:22 BP 122/70 09/28/17 00:22 Pulse Ox 89 L 09/28/17 00:22 Weight - Most Recent: 116 lb 12.8 oz I&O - Last 24 hours: Intake & Output 09/27/17 09/28/17 09/28/17 22:59 06:59 14:59 Intake Total 1610 0 Output Total 2200 Balance -590 0 Med Orders - Current: Current Medications Acetaminophen (Tylenol) 650 mg PO Q6H PRN PRN Reason: Fever Hydrocodone Bitart/Acetaminophen ([place] 325-10 Mg) 1 tab PO Q6H PRN PRN Reason: Pain Last Admin: 09/27/17 21:50 Dose: 1 tab Albuterol (Proventil Neb Soln) 2.5 mg NEB Q4HRRT PRN PRN Reason: Shortness of Breath Albuterol (Proventil Hfa) 0 gm INH BID PRN PRN Reason: Dyspnea Albuterol/Ipratropium (Duoneb 3.0-0.5 Mg/3 Ml) 3 ml NEB QIDRT [facility] Last Admin: 09/28/17 12:15 Dose: Not Given Albuterol/Ipratropium (Duoneb 3.0-0.5 Mg/3 Ml) 3 ml INH Q4HR PRN PRN Reason: Shortness of Breath Last Admin: 09/24/17 12:57 Dose: 3 ml Alprazolam (Xanax) 1 mg PO Q8H PRN PRN Reason: Anxiety Last Admin: 09/28/17 03:02 Dose: 1 mg Azithromycin (Zithromax) 250 mg PO DAILY [facility] Last Admin: 09/27/17 09:32 Dose: 250 mg Benzonatate (Tessalon Perles) 100 mg PO TID PRN PRN Reason: Cough Last Admin: 09/27/17 09:32 Dose: 100 mg Enoxaparin Sodium (Lovenox) 40 mg SUBCUT DAILY [facility] Last Admin: 09/27/17 09:32 Dose: 40 mg Magnesium Oxide (Magnesium Oxide) 400 mg PO DAILY [facility] Last Admin: 09/27/17 09:32 Dose: 400 mg Magnesium Sulfate (Pharmacy To Dose - Magnesium Replacement) 0 dose .XX ASDIRECTED PRN PRN Reason: RX TO WATCH MAG LEVELS Methylprednisolone Sodium Succinate (Solu-Medrol) 80 mg IVPUSH Q8H [facility] Last Admin: 09/28/17 00:40 Dose: 80 mg Mirtazapine (Remeron) 30 mg PO BEDTIME [facility] Last Admin: 09/27/17 21:50 Dose: 30 mg Mometasone Furoate/Formoterol Fumar (Dulera 100-5 Mcg) 0 puff IH BID [facility] Last Admin: 09/28/17 09:15 Dose: 2 puff Morphine Sulfate (Morphine) 1 mg IVPUSH Q4H PRN PRN Reason: Other Potassium Chloride (Pharmacy To Dose - Potassium Replacement) 0 dose .XX ASDIRECTED PRN PRN Reason: RX TO WATCH K LEVELS Quetiapine Fumarate (Seroquel) 50 mg PO BEDTIME [facility] Last Admin: 09/27/17 21:52 Dose: 50 mg Sodium Chloride (Saline Flush) 10 ml FLUSH ASDIRECTED PRN PRN Reason: Keep Vein Open Last Admin: 09/23/17 16:54 Dose: 10 ml Triamterene/HCTZ (Dyazide 25-37.5 Mg) 1 each PO DAILY [facility] Last Admin: 09/27/17 09:32 Dose: 1 each Discontinued Medications Hydrocodone Bitart/Acetaminophen ([place] 325-10 Mg) 1 tab PO TID PRN PRN Reason: Pain Last Admin: 09/26/17 07:38 Dose: 1 tab Albuterol/Ipratropium (Duoneb 3.0-0.5 Mg/3 Ml) Confirm Administered Dose 9 ml .ROUTE .STK-MED ONE Stop: 09/23/17 16:09 Last Admin: 09/23/17 16:10 Dose: 9 ml Albuterol/Ipratropium (Duoneb 3.0-0.5 Mg/3 Ml) 9 ml NEB ONETIME ONE Stop: 09/23/17 16:12 Last Admin: 09/23/17 16:12 Dose: Not Given Doxycycline Hyclate (Vibramycin) 100 mg PO ONETIME ONE Stop: 09/23/17 16:55 Last Admin: 09/23/17 17:21 Dose: 100 mg Doxycycline Hyclate 100 mg/ (Sodium Chloride) 100 mls @ 100 mls/hr IV Q12HR [facility] Last Admin: 09/26/17 09:06 Dose: 100 mls/hr Sodium Chloride (Sodium Chloride 0.45%) 1,000 mls @ 100 mls/hr IV ASDIRECTED [facility] Last Admin: 09/23/17 22:28 Dose: 100 mls/hr Magnesium Sulfate 4 gm/ Premix 100 mls @ 50 mls/hr IV ONETIME ONE Stop: 09/24/17 16:15 Last Admin: 09/24/17 15:27 Dose: 50 mls/hr Ketorolac Tromethamine (Toradol) 30 mg IVPUSH ONETIME ONE Stop: 09/23/17 16:29 Last Admin: 09/23/17 16:53 Dose: 30 mg Methylprednisolone Sodium Succinate (Solu-Medrol) 125 mg IVPUSH ONETIME ONE Stop: 09/23/17 16:12 Last Admin: 09/23/17 16:45 Dose: 125 mg Methylprednisolone Sodium Succinate (Solu-Medrol) 125 mg IVPUSH Q6H [facility] Last Admin: 09/26/17 16:39 Dose: 125 mg Methylprednisolone Sodium Succinate (Solu-Medrol) 80 mg IVPUSH Q8H [facility] Last Admin: 09/26/17 21:29 Dose: Not Given Mirtazapine (Remeron) 30 mg PO BEDTIME [facility] Mometasone Furoate/Formoterol Fumar (Dulera 100-5 Mcg) 0 puff IH BID [facility] Potassium Chloride (Klor-Con M20) 40 meq PO ONETIME ONE Stop: 09/26/17 19:01 Last Admin: 09/26/17 20:39 Dose: 40 meq Quetiapine Fumarate (Seroquel) 50 mg PO BEDTIME [facility] - Exam Quality Assessment: Reports: Supplemental Oxygen, DVT Prophylaxis General: Reports: Alert, Oriented, Cooperative, No Acute Distress HEENT: Reports: Pupils Equal, EOMI, Mucous Membr. Moist/[place] Neck: Reports: Supple Lungs: Reports: Decreased Breath Sounds (throughout) Cardiovascular: Reports: Regular Rate, Regular Rhythm GI/Abdominal Exam: Normal Bowel Sounds, Soft (Female) Exam: Deferred Rectal (Female) Exam: Deferred Extremities: Normal Inspection, No Pedal Edema Psy/Mental Status: Reports: Alert, Normal Affect, Normal Mood *Q Meaningful Use (DIS) - VTE *Q VTE Criteria *Q: - Stroke *Q Stroke Criteria *Q: - AMI *Q AMI Criteria *Q:
== END 2017-09-28 14:47 | disposition home or self-care (01) | DRG 202 ==
LOC: JD.ED 15:46 → JD.MS 17:37 → OBSVTOIN 17:37
PROVIDERS: ADMIT Internal Medicine Cardiovascular Disease; ATTEND Internal Medicine Cardiovascular Disease
DX: J20.9 Acute bronchitis, unspecified (principal); J44.0 Chronic obstructive pulmonary disease with (acute) lower respiratory infection; J44.1 Chronic obstructive pulmonary disease with (acute) exacerbation; E87.2 Acidosis; J96.11 Chronic respiratory failure with hypoxia; R09.02 Hypoxemia; Z87.891 Personal history of nicotine dependence; F41.9 Anxiety disorder, unspecified; F32.9 Major depressive disorder, single episode, unspecified; I10 Essential (primary) hypertension; R32 Unspecified urinary incontinence; M19.90 Unspecified osteoarthritis, unspecified site; M81.0 Age-related osteoporosis without current pathological fracture; E78.5 Hyperlipidemia, unspecified; G43.909 Migraine, unspecified, not intractable, without status migrainosus; H54.7 Unspecified visual loss; Z96.619 Presence of unspecified artificial shoulder joint; Z99.81 Dependence on supplemental oxygen; Z79.899 Other long term (current) drug therapy; E87.6 Hypokalemia
CPT/HCPCS: 36415; 71010; 80053; 83605; 84484; 85025; 87040 ×2; 93005; 94640; 96374; 96375; 99285; A9270; J1885; J2930; J7050; 71020; 71020-26; 80048; 83735; 86140; 86738; 87486; 87581; 87633; 87798; 87899; 93010; 94760; 94761; 97161-GP; 97166-GO; J1650; J2920; J3475; J7030

== ENCOUNTER 2017-10-10 22:34 | Emergency (ER) | payer MEDICAID ==
[~2017-10-10 22:34] MED LIST: Propofol 200 MG/20 ML SDV ONE
[2017-10-10] MEDS ORDERED: fentaNYL 100 MCG/2 ML SDV ONE (23:26)
[2017-10-10] MEDS ORDERED: fentaNYL 100 MCG/2 ML SDV IVPUSH STA (23:28)
--- NOTE | 2017-10-10 23:28 | EDM.PDOC ---
ED HPI GENERAL MEDICAL PROBLEM - General Chief Complaint: Respiratory Problem Stated Complaint: ESTEBAN AMB Time Seen by Provider: 10/10/17 22:47 Source of Information: Reports: Patient, EMS, Old Records History Limitations: Reports: Altered Mental Status - History of Present Illness INITIAL COMMENTS - FREE TEXT/NARRATIVE: Report from EMS is that the patient was found unresponsive, we believed by her son, with decreased breathing. The patient is known to have advanced COPD ordinarily on 4 L O2 per [place], continuously. Her oxygen was apparently not on at the time. A nonrebreather mask was placed per EMS. Upon arrival to the ED, the patient is somnolent but arousable. She indicates that she may have had a fever and cold-like symptoms over the past few days. She states that she has been coughing, and slightly wheezing. The patient states that she would like to be full code, including intubation and chest compressions, if necessary. - Related Data Allergies Allergy/AdvReac Type Severity Reaction Status Date / Time No Known Allergies Allergy Verified 09/23/17 15:52 Home Meds: Home Meds Budesonide/Formoterol Fumarate [Symbicort 80-4.5 Mcg Inhaler] 2 puff IH BID [History] Triamterene/Hydrochlorothiazid [Triamterene-HCTZ 37.5-25 MG] 1 each PO DAILY # 30 capsule 04/23/17 [Rx] Mirtazapine [Remeron] 30 mg PO BEDTIME 08/11/17 [History] QUEtiapine Fumarate [Seroquel] 50 mg PO BEDTIME 08/11/17 [History] ALPRAZolam [Xanax] 1 mg PO TID 10/11/17 [History] Past Medical History HEENT History: Reports: Impaired Vision Cardiovascular History: Reports: Hypertension Respiratory History: Reports: COPD (advanced, on home O2) Gastrointestinal History: Reports: Colon Polyp Genitourinary History: Reports: Renal Calculus, Urinary Incontinence [employer] History: Reports: Musculoskeletal History: Reports: Arthritis, Osteoporosis Neurological History: Reports: Migraines Psychiatric History: Reports: Anxiety, Depression - Infectious Disease History Infectious Disease History: Reports: Chicken Pox - Past Surgical History Female Surgical History: Reports: D&C, Hysterectomy Musculoskeletal Surgical History: Reports: Shoulder Replacement (right, reverse) Social & Family History - Family History Family Medical History: Noncontributory - Tobacco Use Smoking Status *Q: Former Smoker Years of Tobacco use: 30 Packs/Tins Daily: 0.5 Used Tobacco, but Quit: No Month Tobacco Last Used: 1 Second Hand Smoke Exposure: No - Caffeine Use Caffeine Use: Reports: Soda Other Caffeine Use: 2 - Alcohol Use Days Per Week of Alcohol Use: 0 Number of Drinks Per Day: 1 Total Drinks Per Week: 0 - Recreational Drug Use Recreational Drug Use: No Drug Use in Last 12 Months: Yes Recreational Drug Type: Reports: Marijuana/Hashish Recreational Drug Use Frequency: Weekly - Living Situation & Occupation Living situation: Reports: Single, with Family (Son) Occupation: Unemployed ED ROS GENERAL - Review of Systems Review Of Systems: ROS reveals no pertinent complaints other than HPI. ED EXAM, GENERAL - Physical Exam Exam: See Below Exam Limited By: Altered Mental Status (Somnolent, but arousable) General Appearance: Lethargic, Thin Eye Exam: Bilateral Eye: Normal Inspection Ears: Normal External Exam, Hearing Grossly Normal Nose: Normal Inspection, No Blood Throat/Mouth: Normal Inspection, Normal Lips, No Airway Compromise Head: Atraumatic, Normocephalic Neck: Normal Inspection, Full Range of Motion Respiratory/Chest: No Accessory Muscle Use, Decreased Breath Sounds (throughout) , Wheezing (scant, expiratory). No: Crackles, Rhonchi Cardiovascular: Normal Peripheral Pulses, Regular Rate, Rhythm, No Gallop, No JVD, No Murmur, No Rub Peripheral Pulses: 3+: Radial (L), Radial (R) GI/Abdominal: Normal Bowel Sounds, Soft, Non-Tender, No Organomegaly, No Distention, No Abnormal Bruit, No Mass (Female) Exam: Deferred Rectal (Female) Exam: Deferred Extremities: Normal Inspection, Normal Range of Motion, No Pedal Edema, Normal Capillary Refill Neurological: Other (Somnolent, but arousable. Moves all 4 extremities spontaneously.) Psychiatric: Other (Unable to assess) Skin Exam: Warm, Dry, Intact, Normal Color, No Rash ED RESPIRATORY PROCEDURES - Endotracheal Intubation Time of Intubation: 23:14 ET Intubation Indication: Respiratory Failure Preparation: Suction, Balloon Tested, BVM Set Up, Difficult Airway Equip Pre-Oxygenation: Assisted with BVM, 100% FiO2 Anesthesia Meds: Propofol (40 mg) Placement: Orotracheal, Cuffed, Uncomplicated Placement Cords Visualized: Yes, Grade 1 ETT Size In mm: 8.0 Number of Attempts: 1 Confirmed By: CO2 Indicator, Bilateral Breath Sounds, Chest Xray Tube Secured By: By RT EKG INTERPRETATION EKG Date: 10/10/17 Time: 22:58 Rhythm: Other (Sinus tachycardia) Rate (Beats/Min): 141 [place]: Normal P-Wave: Present QRS: Normal ST-T: Depressed (II, III, aVF) QT: Prolonged (QTc 501 ms) Comparison: Change From Previous EKG (ST depression in inferior leads is new since 09/23/2017) Course - Vital Signs Last Recorded V/S: Last Vital Signs Temp 35.9 C 10/10/17 22:41 Pulse 100 10/11/17 02:30 Resp 12 10/11/17 02:30 BP 107/84 10/11/17 02:30 Pulse Ox 98 10/11/17 03:30 - Orders/Labs/Meds Orders: Active Orders 24 hr Category Date Time Status EKG Documentation Completion [RC] ASDIRECTED Care 10/10/17 22:38 Active Pinto Catheter Insertion [Insert Urinary Catheter] [OM. Care 10/11/17 00:30 Ordered PC] Q24H RT Aerosol Therapy [RC] ASDIRECTED Care 10/11/17 01:00 Active RT Ventilator, Adult [RC] ASDIRECTED Care 10/10/17 23:15 Active Ang Chest [CT] Stat Exams 10/11/17 01:04 Taken Chest 1V Frontal [CR] Stat Exams 10/11/17 04:08 Taken Chest 1V Frontal [CR] Stat Exams 10/10/17 22:54 Taken CULTURE BLOOD [BC] Stat Lab 10/10/17 23:27 Received CULTURE BLOOD [BC] Stat Lab 10/10/17 23:39 Received Levofloxacin/Dextrose 5%-Water [Levaquin in D5W 750 MG/ Med 10/11/17 04:09 Active 150 ML] 750 mg Premix Bag 1 bag IV ONETIME Midazolam [Versed 5 MG/ML] 50 mg Med 10/11/17 00:21 Active Sodium Chloride 0.9% [Normal Saline] 90 ml IV TITRATE Sodium Chloride 0.9% [Normal Saline] 1,000 ml Med 10/11/17 00:15 Active IV ASDIRECTED Sodium Chloride 0.9% [Normal Saline] 1,000 ml Med 10/11/17 04:45 Active IV ASDIRECTED Sodium Chloride 0.9% [Normal Saline] 100 ml Med 10/11/17 03:00 Active IV ASDIRECTED Blood Culture x2 Reflex Set [OM.PC] Stat Oth 10/10/17 22:53 Ordered EKG 12 Lead [EK] Stat Ther 10/10/17 22:38 Ordered Medication Orders Sodium Chloride (Normal Saline) 1,000 mls @ 999 mls/hr IV ASDIRECTED SHAUN Last Admin: 10/11/17 00:17 Dose: 999 mls/hr Midazolam HCl 50 mg/ Sodium (Chloride) 100 mls @ 6 mls/hr IV TITRATE SHAUN; 3 MG/ HR PRN Reason: Protocol Last Admin: 10/11/17 00:39 Dose: 3 mg/hr, 6 mls/hr Sodium Chloride (Normal Saline) 100 mls @ 60 mls/hr IV ASDIRECTED SHAUN Last Admin: 10/11/17 03:18 Dose: 60 mls/hr Levofloxacin/Dextrose 750 mg/ (Premix) 150 mls @ 100 mls/hr IV ONETIME ONE Stop: 10/11/17 05:38 Last Admin: 10/11/17 04:21 Dose: 100 mls/hr Sodium Chloride (Normal Saline) 1,000 mls @ 100 mls/hr IV ASDIRECTED SHAUN Last Admin: 10/11/17 04:48 Dose: 100 mls/hr Labs: Laboratory Tests 10/10/17 10/10/17 10/10/17 Range/Units 22:45 23:27 23:27 WBC 10.42 H (3.98-10.04) K/mm3 RBC 4.09 (3.98-5.22) M/mm3 Hgb 11.6 (11.2-15.7) gm/L Hct 37.3 (34.1-44.9) % MCV 91.2 (79.4-94.8) fl MCH 28.4 (25.6-32.2) pg MCHC 31.1 L (32.2-35.5) g/dl RDW Std Deviation 41.9 (36.4-46.3) fL Plt Count 174 L (182-369) K/mm3 MPV 10.2 (9.4-12.3) fl Neutrophils % (Manual) 90 H (40-60) % Band Neutrophils % 0 (0-10) % Lymphocytes % (Manual) 5 L (20-40) % Atypical Lymphs % 0 % Monocytes % (Manual) 5 (2-10) % Eosinophils % (Manual) 0 L (0.7-5.8) % Basophils % (Manual) 0 L (0.1-1.2) Platelet Estimate Adequate RBC Morph Comment Normal PT 10.7 (8.0-13.0) SECONDS INR 0.98 APTT 29 (22-36) SECONDS D-Dimer, Quantitative 2.33 H (0.19-0.59) mg/L Puncture Site Rt brachial ABG pH 7.20 L (7.35-7.45) ABG pCO2 100.9 H* (35.0-45.0) mmHg ABG pO2 122.0 H (80.0-100.0) mmHg ABG HCO3 37.7 H (22.0-26.0) meq/L ABG O2 Saturation 98.3 H (96.0-97.0) % ABG Base Excess 6.5 H (-2-2.0) A-a Gradient 392 mmHg O2 Delivery Device Nrb mask Oxygen Flow Rate 15.0 FiO2 100.00 (21.00-100.00) % Tidal Volume cc PEEP cmH20 Sodium (136-145) mEq/L Potassium (3.5-5.1) mEq/L Chloride (98-107) mEq/L Carbon Dioxide (21-32) mEq/L Anion Gap (5-15) BUN (7-18) mg/dL Creatinine (0.55-1.02) mg/dL Est Cr Clr Drug Dosing mL/min Estimated GFR (MDRD) (>60) mL/min BUN/Creatinine Ratio (14-18) Glucose (74-106) mg/dL POC Glucose (70-105) mg/dL Lactic Acid (0.4-2.0) mmol/L Calcium (8.5-10.1) mg/dL Total Bilirubin (0.2-1.0) mg/dL AST (15-37) U/L ALT (14-59) U/L Alkaline Phosphatase (46-116) U/L Troponin I (0.00-0.056) ng/mL NT-Pro-B Natriuret Pep (0-125) pg/mL Total Protein (6.4-8.2) g/dl Albumin (3.4-5.0) g/dl Globulin gm/dL Albumin/Globulin Ratio (1-2) 10/10/17 10/10/17 10/11/17 Range/Units 23:27 23:29 01:12 WBC (3.98-10.04) K/mm3 RBC (3.98-5.22) M/mm3 Hgb (11.2-15.7) gm/L Hct (34.1-44.9) % MCV (79.4-94.8) fl MCH (25.6-32.2) pg MCHC (32.2-35.5) g/dl RDW Std Deviation (36.4-46.3) fL Plt Count (182-369) K/mm3 MPV (9.4-12.3) fl Neutrophils % (Manual) (40-60) % Band Neutrophils % (0-10) % Lymphocytes % (Manual) (20-40) % Atypical Lymphs % % Monocytes % (Manual) (2-10) % Eosinophils % (Manual) (0.7-5.8) % Basophils % (Manual) (0.1-1.2) Platelet Estimate RBC Morph Comment PT (8.0-13.0) SECONDS INR APTT (22-36) SECONDS D-Dimer, Quantitative (0.19-0.59) mg/L Puncture Site Rt brachial ABG pH 7.47 H (7.35-7.45) ABG pCO2 54.0 H (35.0-45.0) mmHg ABG pO2 53.0 L (80.0-100.0) mmHg ABG HCO3 38.5 H (22.0-26.0) meq/L ABG O2 Saturation 91.1 L (96.0-97.0) % ABG Base Excess 13.0 H (-2-2.0) A-a Gradient 71 mmHg O2 Delivery Device Ventilator Oxygen Flow Rate FiO2 25.00 (21.00-100.00) % Tidal Volume 400.0 cc PEEP 5.0 cmH20 Sodium 139 (136-145) mEq/L Potassium 3.8 (3.5-5.1) mEq/L Chloride 98 (98-107) mEq/L Carbon Dioxide 39 H (21-32) mEq/L Anion Gap 5.8 (5-15) BUN 28 H (7-18) mg/dL Creatinine 1.2 H (0.55-1.02) mg/dL Est Cr Clr Drug Dosing 39.27 mL/min Estimated GFR (MDRD) 47 (>60) mL/min BUN/Creatinine Ratio 23.3 H (14-18) Glucose 342 H (74-106) mg/dL POC Glucose (70-105) mg/dL Lactic Acid 3.0 H (0.4-2.0) mmol/L Calcium 8.4 L (8.5-10.1) mg/dL Total Bilirubin 0.2 (0.2-1.0) mg/dL AST 55 H (15-37) U/L ALT 59 (14-59) U/L Alkaline Phosphatase 79 (46-116) U/L Troponin I 0.087 H* (0.00-0.056) ng/mL NT-Pro-B Natriuret Pep 6425 H (0-125) pg/mL Total Protein 6.0 L (6.4-8.2) g/dl Albumin 2.8 L (3.4-5.0) g/dl Globulin 3.2 gm/dL Albumin/Globulin Ratio 0.9 L (1-2) 18 10/11/17 Range/Units 01:28 03:26 WBC (3.98-10.04) K/mm3 RBC (3.98-5.22) M/mm3 Hgb (11.2-15.7) gm/L Hct (34.1-44.9) % MCV (79.4-94.8) fl MCH (25.6-32.2) pg MCHC (32.2-35.5) g/dl RDW Std Deviation (36.4-46.3) fL Plt Count (182-369) K/mm3 MPV (9.4-12.3) fl Neutrophils % (Manual) (40-60) % Band Neutrophils % (0-10) % Lymphocytes % (Manual) (20-40) % Atypical Lymphs % % Monocytes % (Manual) (2-10) % Eosinophils % (Manual) (0.7-5.8) % Basophils % (Manual) (0.1-1.2) Platelet Estimate RBC Morph Comment PT (8.0-13.0) SECONDS INR APTT (22-36) SECONDS D-Dimer, Quantitative (0.19-0.59) mg/L Puncture Site ABG pH (7.35-7.45) ABG pCO2 (35.0-45.0) mmHg ABG pO2 (80.0-100.0) mmHg ABG HCO3 (22.0-26.0) meq/L ABG O2 Saturation (96.0-97.0) % ABG Base Excess (-2-2.0) A-a Gradient mmHg O2 Delivery Device Oxygen Flow Rate FiO2 (21.00-100.00) % Tidal Volume cc PEEP cmH20 Sodium (136-145) mEq/L Potassium (3.5-5.1) mEq/L Chloride (98-107) mEq/L Carbon Dioxide (21-32) mEq/L Anion Gap (5-15) BUN (7-18) mg/dL Creatinine (0.55-1.02) mg/dL Est Cr Clr Drug Dosing mL/min Estimated GFR (MDRD) (>60) mL/min BUN/Creatinine Ratio (14-18) Glucose (74-106) mg/dL POC Glucose 246 H 156 H (70-105) mg/dL Lactic Acid (0.4-2.0) mmol/L Calcium (8.5-10.1) mg/dL Total Bilirubin (0.2-1.0) mg/dL AST (15-37) U/L ALT (14-59) U/L Alkaline Phosphatase (46-116) U/L Troponin I (0.00-0.056) ng/mL NT-Pro-B Natriuret Pep (0-125) pg/mL Total Protein (6.4-8.2) g/dl Albumin (3.4-5.0) g/dl Globulin gm/dL Albumin/Globulin Ratio (1-2) Meds: Medications Generic Name Dose Route Start Last Admin Trade Name Freq PRN Reason Stop Dose Admin Sodium Chloride 1,000 mls @ 999 mls/hr 10/11/17 00:15 10/11/17 00:17 Normal Saline IV 999 mls/hr ASDIRECTED SHAUN Administration Midazolam HCl 50 mg/ Sodium 100 mls @ 6 mls/hr 10/11/17 00:21 10/11/17 00:39 Chloride IV 3 mg/hr TITRATE SHAUN 6 mls/hr Protocol Administration 3 MG/HR Sodium Chloride 100 mls @ 60 mls/hr 10/11/17 03:00 10/11/17 03:18 Normal Saline IV 60 mls/hr ASDIRECTED SHAUN Administration Levofloxacin/Dextrose 750 mg/ 150 mls @ 100 mls/hr 10/11/17 04:09 10/11/17 04 :21 Premix IV 10/11/17 05:38 100 mls/hr ONETIME ONE Administration Sodium Chloride 1,000 mls @ 100 mls/hr 10/11/17 04:45 10/11/17 04:48 Normal Saline IV 100 mls/hr ASDIRECTED SHAUN Administration Discontinued Medications Generic Name Dose Route Start Last Admin Trade Name Freq PRN Reason Stop Dose Admin Albuterol/Ipratropium 3 ml 10/11/17 01:00 10/11/17 01:08 Duoneb 3.0-0.5 Mg/3 Ml NEB 10/11/17 01:01 3 ml ONETIME ONE Administration Albuterol/Ipratropium Confirm 10/11/17 01:07 10/11/17 01:08 Duoneb 3.0-0.5 Mg/3 Ml Administered 10/11/17 01:08 Not Given Dose 3 ml .ROUTE .STK-MED ONE Fentanyl 50 mcg 10/10/17 23:28 10/10/17 23:33 Sublimaze IVPUSH 10/10/17 23:29 50 mcg ONETIME STA Administration Fentanyl Confirm 10/10/17 23:26 10/10/17 23:34 Sublimaze Administered 10/10/17 23:27 Not Given Dose 100 mcg .ROUTE .STK-MED ONE Fentanyl 50 mcg 10/11/17 03:15 10/11/17 03:17 Sublimaze IVPUSH 10/11/17 03:16 50 mcg ONETIME STA Administration Midazolam HCl 50 mg/ Sodium 50 mls @ 3 mls/hr 10/10/17 23:43 Chloride IV TITRATE SHAUN Protocol 3 MG/HR Midazolam HCl 50 mg/ Sodium 50 mls @ 3 mls/hr 10/11/17 00:19 Chloride IV TITRATE SHAUN Protocol 3 MG/HR Insulin Human Regular 10 unit 10/11/17 01:08 10/11/17 01:26 Humulin R SUBCUT 10/11/17 01:09 10 unit ONETIME STA Administration Protocol Iopamidol 100 ml 10/11/17 02:51 10/11/17 03:17 Isovue-370 (76%) IVPUSH 10/11/17 02:52 100 ml ONETIME ONE Administration Methylprednisolone Sodium Succinate 125 mg 10/11/17 01:00 10/11/17 01:03 Solu-Medrol IVPUSH 10/11/17 01:01 125 mg ONETIME ONE Administration Midazolam HCl 4 mg 10/10/17 23:30 10/10/17 23:33 Versed 1 Mg/Ml IVPUSH 10/10/17 23:31 4 mg ONETIME STA Administration Midazolam HCl Confirm 10/10/17 23:57 10/11/17 00:06 Versed 1 Mg/Ml Administered 10/10/17 23:58 Not Given Dose 18 mg .ROUTE .STK-MED ONE Midazolam HCl 4 mg 10/11/17 00:15 10/11/17 00:16 Versed 1 Mg/Ml IVPUSH 10/11/17 00:16 4 mg ONETIME ONE Administration Propofol 40 mg 10/10/17 23:29 10/10/17 23:33 Diprivan 20 Ml IVPUSH 10/10/17 23:30 40 mg ONETIME STA Administration Sodium Chloride 10 ml 10/11/17 02:51 10/11/17 03:17 Saline Flush FLUSH 10/11/17 02:52 10 ml ONETIME ONE Administration - Re-Assessments/Exams Free Text/Narrative Re-Assessment/Exam: 10/10/17 23:22 The patient's initial ABG was 7.20 / 100.9 / 122 / 37.7 / 98.3% while on a partial rebreather mask. This represents an [id number] respiratory acidosis. Based on the patient's ABG results and decreased mentation, I elected to intubate the patient. The patient was preoxygenated to 100% SpO2. Following propofol 40 mg IVP, the patient was intubated with an 8.0 OETT to 24 cm at the incisors, using a Mac 3 blade. Positive CO2 detection. Positive bilateral chest rise and bilateral breath sounds on auscultation. SpO2 maintained at 100% post-intubation. Post-intubation portable chest radiograph reviewed. Cardiac silhouette is within normal limits. No pulmonary vascular congestion. No pleural effusions. No focal infiltrate. No pneumothorax. Hyperinflation and bilateral diaphragmatic flattening, consistent with COPD, noted. A right-sided reverse shoulder prosthesis is noted. Formal read per the Radiologist pending. Initial vent settings: A/C 14 / .400 / 5 / 0.50 10/11/17 01:05 The patient's FiO2 has been decreased to 0.25. Her D-dimer has returned significantly elevated at 2.33, yet her renal function appears to be essentially normal. I have ordered a CT angiogram of the chest to evaluate for a PE. Her lactic acid level is elevated at 3.0, which is likely due to systemic hypoxemia. Similarly, her troponin is slightly elevated at 0.087. Her blood sugar is elevated at 342. I have ordered 10 units of regular insulin SQ. 10/11/17 04:03 CT angiogram of the chest is read by [facility] as: 1. No definite evidence of acute pulmonary embolism. 2. Extensive bilateral bronchial and bronchiolar wall thickening, which has progressed from the prior examination with numerous areas of proximal and peripheral mucous plugging, and tree in bud opacities, most significant in the right lower lobe. The findings are suspicious for castle bronchitis and bronchiolitis which may be infectious or inflammatory in nature. 3. Hyperinflated lungs. Pulmonary emphysema. 4. An endotracheal tube with the tip at about the level of the elizabeth. Repositioning is recommended. 5. Right ventricular apparent hypertrophy and dilatation. Dilated right atrium. Correlation with the possibility of pulmonary hypertension or right ventricle cardiomyopathy is recommended. 10/11/17 04:[address] findings, I checked the ETT tube position. It is still at 24 cm at the incisors, the same as when the patient was intubated. I have ordered a portable chest radiograph to recheck the ET tube position. I will start the patient on Levaquin 750 mg IVPB. Case discussed with Dr. Mcclure at 04:09. Because the patient has advanced COPD, she fears that the patient will be difficult to extubate, and is therefore recommending that the patient be transferred to [place]. 10/11/17 04:16 Portable chest radiograph appears to demonstrate the tip of the ET tube approximately 2 cm above the elizabeth, essentially unchanged from prior. I suspect that the ET tube may have migrated while the patient was in CT scan, but is now back in appropriate position now that the patient is back in the ED. 10/11/17 04:[address] Bosch, Inspector Floor at [facility], at 04:26 [facility]. He would like us to check an influenza swab. He accepts the patient for direct admission to their ICU. The patient will be transferred by ground ambulance. I have pushed the 2 portable chest radiographs and CT angiogram of the chest images to [facility]. 10/11/17 05:29 The influenza swab has returned as negative. Departure - Departure Time of Disposition: 04:44 Disposition: DC/Tfer to [facility] 02 Condition: Serious Clinical Impression: Hypercapnic respiratory failure - Discharge Information - My Orders Last 24 Hours: My Active Orders 10/11/17 00:15 Sodium Chloride 0.9% [Normal Saline] 1,000 ml IV ASDIRECTED 10/11/17 00:21 Midazolam [Versed 5 MG/ML] 50 mg Sodium Chloride 0.9% [Normal Saline] 90 ml IV TITRATE 10/11/17 00:30 Pinto Catheter Insertion [Insert Urinary Catheter] [OM.PC] Q24H 10/11/17 01:00 RT Aerosol Therapy [RC] ASDIRECTED 10/11/17 01:04 Ang Chest [CT] Stat 10/11/17 03:00 Sodium Chloride 0.9% [Normal Saline] 100 ml IV ASDIRECTED 10/11/17 04:08 Chest 1V Frontal [CR] Stat 10/11/17 04:09 Levofloxacin/Dextrose 5%-Water [Levaquin in D5W 750 MG/150 ML] 750 mg Premix Bag 1 bag IV ONETIME 10/11/17 04:45 Sodium Chloride 0.9% [Normal Saline] 1,000 ml IV ASDIRECTED 10/10/17 22:38 EKG Documentation Completion [RC] ASDIRECTED EKG 12 Lead [EK] Stat 10/10/17 22:53 Blood Culture x2 Reflex Set [OM.PC] Stat 10/10/17 22:54 Chest 1V Frontal [CR] Stat 10/10/17 23:15 RT Ventilator, Adult [RC] ASDIRECTED 10/10/17 23:27 CULTURE BLOOD [BC] Stat 10/10/17 23:39 CULTURE BLOOD [BC] Stat - Assessment/Plan Last 24 Hours: My Active Orders 10/11/17 00:15 Sodium Chloride 0.9% [Normal Saline] 1,000 ml IV ASDIRECTED 10/11/17 00:21 Midazolam [Versed 5 MG/ML] 50 mg Sodium Chloride 0.9% [Normal Saline] 90 ml IV TITRATE 10/11/17 00:30 Pinto Catheter Insertion [Insert Urinary Catheter] [OM.PC] Q24H 10/11/17 01:00 RT Aerosol Therapy [RC] ASDIRECTED 10/11/17 01:04 Ang Chest [CT] Stat 10/11/17 03:00 Sodium Chloride 0.9% [Normal Saline] 100 ml IV ASDIRECTED 10/11/17 04:08 Chest 1V Frontal [CR] Stat 10/11/17 04:09 Levofloxacin/Dextrose 5%-Water [Levaquin in D5W 750 MG/150 ML] 750 mg Premix Bag 1 bag IV ONETIME 10/11/17 04:45 Sodium Chloride 0.9% [Normal Saline] 1,000 ml IV ASDIRECTED 10/10/17 22:38 EKG Documentation Completion [RC] ASDIRECTED EKG 12 Lead [EK] Stat 10/10/17 22:53 Blood Culture x2 Reflex Set [OM.PC] Stat 10/10/17 22:54 Chest 1V Frontal [CR] Stat 10/10/17 23:15 RT Ventilator, Adult [RC] ASDIRECTED 10/10/17 23:27 CULTURE BLOOD [BC] Stat 10/10/17 23:39 CULTURE BLOOD [BC] Stat
[2017-10-10] MEDS ORDERED: Propofol 200 MG/20 ML SDV IVPUSH STA (23:29)
[2017-10-10] MEDS ORDERED: Midazolam 1 MG/ML 5 ML SDV IVPUSH STA (23:30)
[2017-10-10] MEDS ORDERED: Midazolam 50 MG in Sodium Chloride 0.9% 40 ML IV SCH (23:43)
[2017-10-10] MEDS ORDERED: Midazolam 1 MG/ML 2 ML SDV ONE (23:57)
[2017-10-11] MEDS ORDERED: Sodium Chloride 0.9% 1,000 ML IV SCH ×2 (00:15→04:45)
[2017-10-11] MEDS ORDERED: Midazolam 1 MG/ML 5 ML SDV IVPUSH ONE (00:15)
[2017-10-11] MEDS ORDERED: Midazolam 50 MG in Sodium Chloride 0.9% 40 ML IV SCH (00:19)
[2017-10-11] MEDS ORDERED: Midazolam 50 MG in Sodium Chloride 0.9% 90 ML IV SCH (00:21)
[2017-10-11] MEDS ORDERED: Albuterol/Ipratropium 3.0-0.5 MG/3 ML Neb Soln NEB ONE (01:00)
[2017-10-11] MEDS ORDERED: methylPREDNISolone Sodium Succinate 125 MG/2 ML SDV IVPUSH ONE (01:00)
[2017-10-11] MEDS ORDERED: Albuterol/Ipratropium 3.0-0.5 MG/3 ML Neb Soln ONE (01:07)
[2017-10-11] MEDS ORDERED: Insulin Regular, Human 100 Units/ML 3 ML Vial SUBCUT STA (01:08)
[2017-10-11] MEDS ORDERED: Sodium Chloride 0.9% 10 ML Syringe FLUSH ONE (02:51)
[2017-10-11] MEDS ORDERED: Iopamidol 755 Mg/ML 100 ML Bottle IVPUSH ONE (02:51)
[2017-10-11] MEDS ORDERED: Sodium Chloride 0.9% 100 ML IV SCH (03:00)
[2017-10-11] MEDS ORDERED: fentaNYL 100 MCG/2 ML SDV IVPUSH STA ×2 (03:15→05:42)
[2017-10-11] MEDS ORDERED: Levofloxacin/Dextrose 5%-Water 750 MG in Premix Bag 1 BAG IV ONE (04:09)
[2017-10-11 05:48] VITALS: BP 97/74
[2017-10-11] MEDS ORDERED: fentaNYL 100 MCG/2 ML SDV ONE (05:48)
--- NOTE | 2017-10-11 11:12 | CR ---
Chest: Portable view of the chest was obtained. Comparison: Prior chest x-ray of 10/10/[address] performed earlier on the same day (3:08 AM). Tip of endotracheal tube lies between the clavicle and elizabeth. Heart size and mediastinum are normal. Lungs show no acute pulmonary densities. Lungs are hyperinflated compatible with emphysematous change. Bony structures are osteopenic. Right shoulder prosthesis is noted. Plate and screws are noted within the right mid humerus. Impression: 1. Satisfactory position of endotracheal tube. 2. Emphysematous change and other incidental findings. Diagnostic code #3
--- NOTE | 2017-10-11 11:12 | CR ---
Chest: Portable view of the chest was obtained. Comparison: Prior chest x-ray of 09/25/17. Lungs are hyperinflated compatible with emphysematous change. Heart size and mediastinum are within normal limits. Right shoulder prosthesis is seen. Mild scoliosis is noted within the spine. Endotracheal tube is seen lying between the clavicle and elizabeth in satisfactory position. Impression: 1. Tip of endotracheal tube in satisfactory position. 2. Emphysematous change and other stable findings. Diagnostic code #3
--- NOTE | 2017-10-11 13:55 | CT ---
CT chest Technique: Multiple axial sections through the chest were obtained. Intravenous contrast was utilized. Study has been performed as a pulmonary angiogram protocol. Comparison: Previous CT chest dated 04/19/17. Findings: Endotracheal tube is seen lying above the elizabeth. Atherosclerotic calcification is noted within the thoracic aorta. Pulmonary arteries are well opacified showing no filling defects. Right atria is slightly increased in size as well as the right ventricle. Pulmonary arteries are mildly prominent in size. Findings likely represent a variant of pulmonary hypertension due to the patient's emphysematous change. No pericardial thickening is seen. Small portion of the visualized upper abdominal structures appear within normal limits. Multiple central bronchial collins are slightly thickened. Mild scarring is seen within both lung bases worse on the right side. No acute pulmonary densities are seen. Impression: 1. Satisfactory position of endotracheal tube. 2. Mildly prominent size of the right heart as well as pulmonary arteries which is felt compatible with variant of pulmonary hypertension from the patient's emphysematous change. 3. Emphysematous change with mild bronchial wall thickening some of which appears chronic but difficult to exclude mild acute change from viral etiology. Mild scarring is seen within both lung bases. Diagnostic code #3 I agree with preliminary report issued by [employer] ([facility] report finalized on 10/11/17, 5:00 AM Central Time)
== END 2017-10-11 05:45 ==
LOC: JD.ED 22:34
DX: J96.92 Respiratory failure, unspecified with hypercapnia (principal); J44.9 Chronic obstructive pulmonary disease, unspecified; I10 Essential (primary) hypertension; Z87.891 Personal history of nicotine dependence
CPT/HCPCS: 31500; 36415; 36600; 51702; 71010; 71045; 71275; 80053; 82803; 82962; 83605; 83880; 84484; 85025; 85379; 85610; 85730; 87040; 87804; 93005; 94640; 96361; 96365; 96366; 96368; 96372; 96374; 96375; 96376; 99291; 99292; J1817; J1956; J2250; J2930; J3010; J7030; J7040; J7050; Q9967; 93010; J1815; J2704

== ENCOUNTER 2017-12-01 19:47 | Emergency (ER) | payer MEDICAID, SELFPAY ==
[2017-12-01 20:00] VITALS: BP 178/110
--- NOTE | 2017-12-01 20:17 | EDM.PDOC ---
ED HPI GENERAL MEDICAL PROBLEM - General Chief Complaint: Chest Pain Stated Complaint: CHEST PAIN Time Seen by Provider: 12/01/17 20:17 - History of Present Illness INITIAL COMMENTS - FREE TEXT/NARRATIVE: 22-year-old female presents emergency room with increased chest tightness and shortness of breath. Patient has COPD she is not on steroids at this point. A recent illness with influenza A she's been 13 days of hospital. She has COPD and has been intubated multiple times. To be increased. Patient states she's been sick for 3 or 4 days now this is progressively getting worse the patient normally uses 4 liters of oxygen at home this has not needed to be increased. The patient has a cough mostly nonproductive and she is developing some chest wall pain it is painful for her to breathe at times. She has not had any chest pressure. Chest Pain Score (Numeric/FACES): 6 - Related Data Allergies Allergy/AdvReac Type Severity Reaction Status Date / Time No Known Allergies Allergy Verified 12/01/17 20:01 Home Meds: Home Meds Budesonide/Formoterol Fumarate [Symbicort 80-4.5 Mcg Inhaler] 2 puff IH BID [History] Triamterene/Hydrochlorothiazid [Triamterene-HCTZ 37.5-25 MG] 1 each PO DAILY # 30 capsule 04/23/17 [Rx] Mirtazapine [Remeron] 30 mg PO BEDTIME 08/11/17 [History] QUEtiapine Fumarate [Seroquel] 50 mg PO BEDTIME 08/11/17 [History] ALPRAZolam [Xanax] 1 mg PO TID 10/11/17 [History] Albuterol [Proair HFA] 2 puff INH Q4HR PRN 12/01/17 [History] Albuterol/Ipratropium [DuoNeb 3.0-0.5 MG/3 ML] 3 ml INH Q4HR PRN 12/01/17 [ History] Doxycycline [Vibramycin] 100 mg PO Q12H #14 tab 12/02/17 [Rx] predniSONE 20 mg PO WITHBREAKFAST #20 tab 12/02/17 [Rx] Past Medical History HEENT History: Reports: Impaired Vision Cardiovascular History: Reports: Hypertension Respiratory History: Reports: COPD (advanced, on home O2) Other Respiratory History: end stage COPD, pt is Oxygen dependent Gastrointestinal History: Reports: Colon Polyp Genitourinary History: Reports: Renal Calculus, Urinary Incontinence 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: Reports: Musculoskeletal History: Reports: Arthritis, Osteoporosis Other Musculoskeletal History: c/o back pain Neurological History: Reports: Migraines Psychiatric History: Reports: Anxiety, Depression Endocrine/Metabolic History: Reports: Osteoporosis Hematologic History: Reports: None - Infectious Disease History Infectious Disease History: Reports: Chicken Pox - Past Surgical History Female Surgical History: Reports: D&C, Hysterectomy Musculoskeletal Surgical History: Reports: Shoulder Replacement (right, reverse) Social & Family History - Family History Family Medical History: Noncontributory - Tobacco Use Smoking Status *Q: Former Smoker Years of Tobacco use: 30 Packs/Tins Daily: 0.5 Used Tobacco, but Quit: No Month Tobacco Last Used: 1 Second Hand Smoke Exposure: No - Caffeine Use Caffeine Use: Reports: Soda Other Caffeine Use: 2 - Alcohol Use Days Per Week of Alcohol Use: 0 Number of Drinks Per Day: 1 Total Drinks Per Week: 0 - Recreational Drug Use Recreational Drug Use: No Drug Use in Last 12 Months: Yes Recreational Drug Type: Reports: Marijuana/Hashish Recreational Drug Use Frequency: Weekly - Living Situation & Occupation Living situation: Reports: Single, with Family (Son) Occupation: Unemployed ED ROS GENERAL - Review of Systems Review Of Systems: See Below Constitutional: Reports: No Symptoms HEENT: Reports: No Symptoms Respiratory: Reports: Shortness of Breath, Wheezing, Pleuritic Chest Pain, Cough Cardiovascular: Reports: Chest Pain. Denies: Claudication, Lightheadedness, Palpitations, Syncope Endocrine: Reports: No Symptoms GI/Abdominal: Reports: No Symptoms : Reports: No Symptoms Skin: Reports: No Symptoms Neurological: Reports: No Symptoms Psychiatric: Reports: No Symptoms ED EXAM, GENERAL - Physical Exam Exam: See Below Exam Limited By: No Limitations General Appearance: Alert, No Apparent Distress Eye Exam: Bilateral Eye: Normal Inspection Ears: Normal External Exam, Normal Canal, Hearing Grossly Normal, Normal TMs Nose: Normal Inspection, Normal Mucosa, No Blood Throat/Mouth: Normal Inspection, Normal Lips, Normal Teeth, Normal Gums, Normal Oropharynx, Normal Voice, No Airway Compromise Head: Atraumatic, Normocephalic Neck: Normal Inspection, Supple, Non-Tender, Full Range of Motion Respiratory/Chest: Decreased Breath Sounds. No: No Respiratory Distress, Crackles, Rales, Rhonchi, Wheezing Cardiovascular: Regular Rate, Rhythm, No Edema, No Murmur GI/Abdominal: Normal Bowel Sounds, Soft, Non-Tender Back Exam: Normal Inspection. No: CVA Tenderness (L), CVA Tenderness (R) Extremities: Normal Inspection, No Pedal Edema Course - Vital Signs Last Recorded V/S: Last Vital Signs Temp 36.9 C 12/01/17 19:57 Pulse 100 12/01/17 21:27 Resp 21 H 12/01/17 19:57 BP 178/110 H 12/01/17 19:57 Pulse Ox 99 12/01/17 22:27 - Orders/Labs/Meds Orders: Active Orders 24 hr Category Date Time Status EKG Documentation Completion [RC] ASDIRECTED Care 12/01/17 20:07 Active RT Aerosol Therapy [RC] ASDIRECTED Care 12/01/17 21:11 Active RT Aerosol Therapy [RC] ASDIRECTED Care 12/01/17 22:16 Active Chest 1V Frontal [CR] Stat Exams 12/01/17 20:07 Taken EKG 12 Lead [EK] Stat Ther 12/01/17 20:07 Ordered Labs: Laboratory Tests 12/01/17 12/01/17 12/01/17 Range/Units 20:23 20:23 20:24 WBC 10.68 H (3.98-10.04) K/mm3 RBC 4.92 (3.98-5.22) M/mm3 Hgb 13.7 (11.2-15.7) gm/L Hct 41.7 (34.1-44.9) % MCV 84.8 (79.4-94.8) fl MCH 27.8 (25.6-32.2) pg MCHC 32.9 (32.2-35.5) g/dl RDW Std Deviation 42.6 (36.4-46.3) fL Plt Count 297 (182-369) K/mm3 MPV 10.2 (9.4-12.3) fl Neutrophils % (Manual) 62 H (40-60) % Band Neutrophils % 1 (0-10) % Lymphocytes % (Manual) 23 (20-40) % Atypical Lymphs % 0 % Monocytes % (Manual) 10 (2-10) % Eosinophils % (Manual) 4 (0.7-5.8) % Basophils % (Manual) 0 L (0.1-1.2) Platelet Estimate Adequate RBC Morph Comment Normal Puncture Site Rt radial ABG pH 7.39 (7.35-7.45) ABG pCO2 56.9 H (35.0-45.0) mmHg ABG pO2 88.0 (80.0-100.0) mmHg ABG HCO3 33.9 H (22.0-26.0) meq/L ABG O2 Saturation 96.6 (96.0-97.0) % ABG Base Excess 6.3 H (-2-2.0) Johnny Test Positive O2 Delivery Device Nasal cannula Oxygen Flow Rate 4.0 FiO2 0.36 L (21.00-100.00) % Sodium 142 (136-145) mEq/L Potassium 3.7 (3.5-5.1) mEq/L Chloride 100 (98-107) mEq/L Carbon Dioxide 34 H (21-32) mEq/L Anion Gap 11.7 (5-15) BUN 7 (7-18) mg/dL Creatinine 0.8 (0.55-1.02) mg/dL Est Cr Clr Drug Dosing 52.41 mL/min Estimated GFR (MDRD) > 60 (>60) mL/min BUN/Creatinine Ratio 8.8 L (14-18) Glucose 113 H (74-106) mg/dL Calcium 9.5 (8.5-10.1) mg/dL Total Bilirubin 0.2 (0.2-1.0) mg/dL AST 18 (15-37) U/L ALT 25 (14-59) U/L Alkaline Phosphatase 87 (46-116) U/L Troponin I < 0.017 (0.00-0.056) ng/mL Total Protein 7.9 (6.4-8.2) g/dl Albumin 3.4 (3.4-5.0) g/dl Globulin 4.5 gm/dL Albumin/Globulin Ratio 0.8 L (1-2) Meds: Medications Discontinued Medications Generic Name Dose Route Start Last Admin Trade Name Freq PRN Reason Stop Dose Admin Albuterol/Ipratropium 3 ml 12/01/17 21:11 12/01/17 21:27 Duoneb 3.0-0.5 Mg/3 Ml NEB 12/01/17 21:12 3 ml ONETIME ONE Administration Albuterol/Ipratropium 3 ml 12/01/17 22:16 12/01/17 22:26 Duoneb 3.0-0.5 Mg/3 Ml NEB 12/01/17 22:17 3 ml ONETIME ONE Administration Doxycycline Hyclate 100 mg 12/02/17 01:13 Vibramycin PO 12/02/17 01:14 ONETIME ONE Methylprednisolone Sodium Succinate 125 mg 12/01/17 20:40 12/01/17 20:47 Solu-Medrol IVPUSH 12/01/17 20:41 125 mg ONETIME ONE Administration Morphine Sulfate 2 mg 12/01/17 20:40 12/01/17 20:47 Morphine IVPUSH 12/01/17 20:41 2 mg ONETIME ONE Administration Morphine Sulfate 2 mg 12/01/17 22:17 12/01/17 22:29 Morphine IVPUSH 12/01/17 22:18 2 mg ONETIME ONE Administration Morphine Sulfate 2 mg 12/02/17 00:06 12/02/17 00:19 Morphine IVPUSH 12/02/17 00:07 2 mg ONETIME ONE Administration - Re-Assessments/Exams Free Text/Narrative Re-Assessment/Exam: 12/02/17 00:07 Patient is doing better at this time after 3 nebulizer treatments awaiting the steroids to get with the program. Case was discussed with Dr. Mayo, our hospitalist will not admit the patient here with a lack of backup that we have. I have discussed this with the patient she is doing a little better and she does not want to go to [place]. She thinks she will probably be okay to go home the way she is improving we'll wait and watch. 12/02/17 01:13 Patient is doing better still does not want to go to [place]. She feels comfortable going home she'll be discharged on oral prednisone doxycycline and will increase her DuoNeb's to every 4-6 hours as needed Departure - Departure Time of Disposition: 01:13 Disposition: Home, Self-Care 01 Clinical Impression: COPD exacerbation - Discharge Information Prescriptions: Doxycycline [Vibramycin] 100 mg PO Q12H #14 tab predniSONE 20 mg PO WITHBREAKFAST #20 tab Referrals: Liza Fernandez, UI LEAD DEVELOPER [Primary Care Provider] - Forms: ED Department Discharge Additional Instructions: Return to the emergency room with any questions problems worsening symptoms. Follow-up with regular provider on Wednesday. Follow-up with her public works technician as soon as you can. You have been started on doxycycline this is an antibiotic take one twice daily for a week until gone. You been started on a prednisone taper take this as directed he will take 60 mg or returning milligram tablets every morning for 3 days, then 40 mg or 2 20 mg tablet every morning for 3 days, then 20 mg every morning for 3 days then 10 mg every morning for 4 days for the last 4 days he will take half of a 20 mg tablet. Use your DuoNeb's to 4 times a day every 6 hours can increase to every 4 hours if absolutely needed - My Orders Last 24 Hours: My Active Orders 12/01/17 20:07 EKG Documentation Completion [RC] ASDIRECTED Chest 1V Frontal [CR] Stat EKG 12 Lead [EK] Stat 12/01/17 21:11 RT Aerosol Therapy [RC] ASDIRECTED 12/01/17 22:16 RT Aerosol Therapy [RC] ASDIRECTED - Assessment/Plan Last 24 Hours: My Active Orders 12/01/17 20:07 EKG Documentation Completion [RC] ASDIRECTED Chest 1V Frontal [CR] Stat EKG 12 Lead [EK] Stat 12/01/17 21:11 RT Aerosol Therapy [RC] ASDIRECTED 12/01/17 22:16 RT Aerosol Therapy [RC] ASDIRECTED
[2017-12-01] MEDS ORDERED: methylPREDNISolone Sodium Succinate 125 MG/2 ML SDV IVPUSH ONE (20:40)
[2017-12-01] MEDS ORDERED: Morphine 2 MG/ML Syringe IVPUSH ONE ×2 (20:40→22:17)
[2017-12-01] MEDS ORDERED: Albuterol/Ipratropium 3.0-0.5 MG/3 ML Neb Soln NEB ONE ×2 (21:11→22:16)
[2017-12-02] MEDS ORDERED: Morphine 2 MG/ML Syringe IVPUSH ONE (00:06)
[2017-12-02] MEDS ORDERED: Doxycycline 100 MG Cap PO ONE (01:13)
--- NOTE | 2017-12-02 06:03 | CR ---
Chest: Portable view of the chest was obtained. Comparison: Prior chest x-ray of 10/11/17. Heart size and mediastinum are normal. Lungs are hyperinflated but clear. Previous right shoulder prosthesis is noted. Impression: 1. Emphysematous change. Nothing acute is appreciated on portable chest x-ray. Diagnostic code #2
== END 2017-12-02 01:32 | disposition home or self-care (01) ==
LOC: JD.ED 19:47
DX: J44.1 Chronic obstructive pulmonary disease with (acute) exacerbation (principal); I10 Essential (primary) hypertension; Z79.899 Other long term (current) drug therapy; Z87.891 Personal history of nicotine dependence
CPT/HCPCS: 36415; 36600; 71045; 80053; 82803; 84484; 85025; 93005; 94640; 96374; 96375; 96376; 99285; A9270; J2270; J2930

== ENCOUNTER 2017-12-07 20:27 | Emergency (ER) | payer MEDICAID, MEDICARE ==
[2017-12-07 20:38] VITALS: BP 184/117
--- NOTE | 2017-12-07 21:20 | EDM.PDOC ---
ED HPI GENERAL MEDICAL PROBLEM - General Chief Complaint: Chest Pain Stated Complaint: CHEST PAIN SOB Time Seen by Provider: 12/07/17 20:37 Source of Information: Reports: Patient History Limitations: Reports: No Limitations - History of Present Illness INITIAL COMMENTS - FREE TEXT/NARRATIVE: The patient states that she has had anterior chest tightness since 2013, on and off, and that it seems to be getting worse. The current episode the brings the patient in has been going on for a few weeks. She reports shortness of breath, wheezing, and a cough productive of yellowish sputum. She is not sure she has a fever, although she has been sweating. No nausea, vomiting, constipation, diarrhea, or urinary symptoms. The patient was seen in this ED on 12/01/2017. She was prescribed a ten-day course of doxycycline and a ten-day prednisone taper. She states that these medicines initially helped, but now they have not. She states that she has been using her albuterol neb 4 times a day, including today, in addition to Symbicort twice a day. She is on oxygen 4 L continuously. She does not have BiPAP or CPAP at home. The patient's PCP is Liza Fernandez. Her Printed Circuit Layout Taper is Dr. Jody Granger. She last saw Dr. Granger last fall. Her next appointment is in January. Bilateral Chest Pain Score (Numeric/FACES): 8 - Related Data Allergies Allergy/AdvReac Type Severity Reaction Status Date / Time No Known Allergies Allergy Verified 12/07/17 20:39 Home Meds: Home Meds Budesonide/Formoterol Fumarate [Symbicort 80-4.5 Mcg Inhaler] 2 puff IH BID [History] Triamterene/Hydrochlorothiazid [Triamterene-HCTZ 37.5-25 MG] 1 each PO DAILY # 30 capsule 04/23/17 [Rx] Mirtazapine [Remeron] 30 mg PO BEDTIME 08/11/17 [History] QUEtiapine Fumarate [Seroquel] 50 mg PO BEDTIME 08/11/17 [History] ALPRAZolam [Xanax] 1 mg PO TID 10/11/17 [History] Albuterol [Proair HFA] 2 puff INH Q4HR PRN 12/01/17 [History] Albuterol/Ipratropium [DuoNeb 3.0-0.5 MG/3 ML] 3 ml INH Q4HR PRN 12/01/17 [ History] Doxycycline [Vibramycin] 100 mg PO Q12H #14 tab 12/02/17 [Rx] predniSONE 20 mg PO WITHBREAKFAST #20 tab 12/02/17 [Rx] Past Medical History HEENT History: Reports: Impaired Vision Cardiovascular History: Reports: Hypertension, Other (See Below) (Right ventricular hypertrophy) Respiratory History: Reports: COPD (advanced, on home O2 4L continuously) Gastrointestinal History: Reports: Colon Polyp Genitourinary History: Reports: Renal Calculus, Urinary Incontinence 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: Musculoskeletal History: Reports: Arthritis, Osteoporosis Neurological History: Reports: Migraines Psychiatric History: Reports: Anxiety, Depression - Infectious Disease History Infectious Disease History: Reports: Chicken Pox - Past Surgical History HEENT Surgical History: Reports: Oral Surgery ([place] teeth extraction) Female Surgical History: Reports: D&C (x 1), Hysterectomy Musculoskeletal Surgical History: Reports: Shoulder Replacement (reverse) Social & Family History - Family History Family Medical History: Noncontributory - Tobacco Use Smoking Status *Q: Former Smoker Years of Tobacco use: 33 Packs/Tins Daily: 1 Month Tobacco Last Used: Quit 2016 Second Hand Smoke Exposure: No - Caffeine Use Caffeine Use: Reports: Soda Other Caffeine Use: 2 - Alcohol Use Alcohol Use History: Yes Days Per Week of Alcohol Use: 0 Number of Drinks Per Day: 1 Total Drinks Per Week: 0 Alcohol Use Frequency: Socially - Recreational Drug Use Recreational Drug Use: Yes Drug Use in Last 12 Months: Yes Recreational Drug Type: Reports: Marijuana/Hashish Recreational Drug Use Frequency: Weekly - Living Situation & Occupation Living situation: Reports: Single, Alone Occupation: Disabled ED ROS GENERAL - Review of Systems Review Of Systems: ROS reveals no pertinent complaints other than HPI. ED EXAM, GENERAL - Physical Exam Exam: See Below Exam Limited By: No Limitations General Appearance: Alert, WD/WN, No Apparent Distress Eye Exam: Bilateral Eye: Normal Inspection Ears: Normal External Exam, Hearing Grossly Normal Nose: Normal Inspection, No Blood Throat/Mouth: Normal Inspection, Normal Lips, Normal Voice, No Airway Compromise Head: Atraumatic, Normocephalic Neck: Normal Inspection, Full Range of Motion Respiratory/Chest: No Respiratory Distress, Lungs Clear, No Accessory Muscle Use , Decreased Breath Sounds (Throughout), Wheezing (Minimal and expiratory), Prolonged Expiration (Mild), Other (Reproducible tenderness to palpation of the anterior chest). No: Crackles, Rhonchi Cardiovascular: Normal Peripheral Pulses, Regular Rate, Rhythm, No Gallop, No JVD, No Murmur, No Rub Peripheral Pulses: 4+: Radial (L), Radial (R) GI/Abdominal: Normal Bowel Sounds, Soft, Non-Tender, No Organomegaly, No Distention, No Abnormal Bruit, No Mass (Female) Exam: Deferred Rectal (Female) Exam: Deferred Back Exam: Normal Inspection, Full Range of Motion, NT Extremities: Normal Inspection, Normal Range of Motion, Non-Tender, Normal Capillary Refill, Pedal Edema (Mild, bilateral) Neurological: Alert, Oriented, Normal Cognition, No Motor/Sensory Deficits Psychiatric: Normal Affect Skin Exam: Warm, Dry, Intact, Normal Color, No Rash EKG INTERPRETATION EKG Date: 12/07/17 Time: 20:38 Rhythm: Other (Sinus tachycardia. Single PAC with compensatory pause.) Rate (Beats/Min): 104 Squires: Normal P-Wave: Present QRS: Normal ST-T: Normal QT: Normal Comparison: No Change (12/01/2017) Course - Vital Signs Last Recorded V/S: Last Vital Signs Temp 36.9 C 12/07/17 20:32 Pulse 119 H 12/07/17 20:32 Resp 24 H 12/07/17 20:32 BP 184/117 H 12/07/17 20:32 Pulse Ox 85 L 12/07/17 20:32 - Orders/Labs/Meds Orders: Active Orders 24 hr Category Date Time Status EKG Documentation Completion [RC] STAT Care 12/07/17 20:37 Active Ang Chest [CT] Stat Exams 12/07/17 21:22 Taken Chest 1V Frontal [CR] Stat Exams 12/07/17 20:39 Taken Labs: Laboratory Tests 12/07/17 12/07/17 12/07/17 Range/Units 20:45 20:45 20:45 WBC 14.85 H (3.98-10.04) K/mm3 RBC 4.46 (3.98-5.22) M/mm3 Hgb 12.0 (11.2-15.7) gm/L Hct 38.5 (34.1-44.9) % MCV 86.3 (79.4-94.8) fl MCH 26.9 (25.6-32.2) pg MCHC 31.2 L (32.2-35.5) g/dl RDW Std Deviation 43.9 (36.4-46.3) fL Plt Count 324 (182-369) K/mm3 MPV 9.9 (9.4-12.3) fl Neutrophils % (Manual) 74 H (40-60) % Band Neutrophils % 0 (0-10) % Lymphocytes % (Manual) 25 (20-40) % Atypical Lymphs % 0 % Monocytes % (Manual) 1 L (2-10) % Eosinophils % (Manual) 0 L (0.7-5.8) % Basophils % (Manual) 0 L (0.1-1.2) Toxic Granulation 2+ moderate Platelet Estimate Adequate Plt Morphology Comment Normal RBC Morph Comment Normal PT 10.3 (8.0-13.0) SECONDS INR 0.96 APTT 24 (22-36) SECONDS D-Dimer, Quantitative 2.10 H (0.19-0.59) mg/L Sodium 142 (136-145) mEq/L Potassium 3.4 L (3.5-5.1) mEq/L Chloride 100 (98-107) mEq/L Carbon Dioxide 34 H (21-32) mEq/L Anion Gap 11.4 (5-15) BUN 20 H (7-18) mg/dL Creatinine 0.8 (0.55-1.02) mg/dL Est Cr Clr Drug Dosing 66.97 mL/min Estimated GFR (MDRD) > 60 (>60) mL/min BUN/Creatinine Ratio 25.0 H (14-18) Glucose 107 H (74-106) mg/dL Calcium 9.1 (8.5-10.1) mg/dL Total Bilirubin 0.2 (0.2-1.0) mg/dL AST 18 (15-37) U/L ALT 28 (14-59) U/L Alkaline Phosphatase 69 (46-116) U/L Troponin I < 0.017 (0.00-0.056) ng/mL NT-Pro-B Natriuret Pep (0-125) pg/mL Total Protein 7.2 (6.4-8.2) g/dl Albumin 3.4 (3.4-5.0) g/dl Globulin 3.8 gm/dL Albumin/Globulin Ratio 0.9 L (1-2) 12/07/17 Range/Units 20:45 WBC (3.98-10.04) K/mm3 RBC (3.98-5.22) M/mm3 Hgb (11.2-15.7) gm/L Hct (34.1-44.9) % MCV (79.4-94.8) fl MCH (25.6-32.2) pg MCHC (32.2-35.5) g/dl RDW Std Deviation (36.4-46.3) fL Plt Count (182-369) K/mm3 MPV (9.4-12.3) fl Neutrophils % (Manual) (40-60) % Band Neutrophils % (0-10) % Lymphocytes % (Manual) (20-40) % Atypical Lymphs % % Monocytes % (Manual) (2-10) % Eosinophils % (Manual) (0.7-5.8) % Basophils % (Manual) (0.1-1.2) Toxic Granulation Platelet Estimate Plt Morphology Comment RBC Morph Comment PT (8.0-13.0) SECONDS INR APTT (22-36) SECONDS D-Dimer, Quantitative (0.19-0.59) mg/L Sodium (136-145) mEq/L Potassium (3.5-5.1) mEq/L Chloride (98-107) mEq/L Carbon Dioxide (21-32) mEq/L Anion Gap (5-15) BUN (7-18) mg/dL Creatinine (0.55-1.02) mg/dL Est Cr Clr Drug Dosing mL/min Estimated GFR (MDRD) (>60) mL/min BUN/Creatinine Ratio (14-18) Glucose (74-106) mg/dL Calcium (8.5-10.1) mg/dL Total Bilirubin (0.2-1.0) mg/dL AST (15-37) U/L ALT (14-59) U/L Alkaline Phosphatase (46-116) U/L Troponin I (0.00-0.056) ng/mL NT-Pro-B Natriuret Pep 333 H (0-125) pg/mL Total Protein (6.4-8.2) g/dl Albumin (3.4-5.0) g/dl Globulin gm/dL Albumin/Globulin Ratio (1-2) Meds: Medications Discontinued Medications Generic Name Dose Route Start Last Admin Trade Name Apryl PRN Reason Stop Dose Admin Hydromorphone HCl 0.5 mg 12/07/17 21:20 12/07/17 21:26 Dilaudid IVPUSH 12/07/17 21:21 0.5 mg ONETIME STA Administration Hydromorphone HCl 0.5 mg 12/07/17 22:48 12/07/17 23:00 Dilaudid IVPUSH 12/07/17 22:49 0.5 mg ONETIME STA Administration Hydromorphone HCl 0.5 mg 12/08/17 00:51 12/08/17 01:03 Dilaudid IVPUSH 12/08/17 00:52 0.5 mg ONETIME STA Administration Sodium Chloride 1,000 mls @ 150 mls/hr 12/07/17 21:30 12/07/17 21:33 Normal Saline IV 150 mls/hr ASDIRECTED SHAUN Administration Orphenadrine Citrate 100 mg 12/07/17 21:21 12/07/17 21:26 Norflex PO 12/07/17 21:22 100 mg ONETIME STA Administration - Re-Assessments/Exams Free Text/Narrative Re-Assessment/Exam: 12/07/17 21:13 Portable chest radiograph reviewed. Cardiac silhouette is within normal limits. No pulmonary vascular congestion. No pleural effusions. No focal infiltrate. No pneumothorax. Hyperinflation and bilateral diaphragmatic flattening, consistent with COPD, noted. Right shoulder reverse prosthesis noted. Formal read per the Radiologist pending. 12/08/17 00:27 CT angiogram of the chest is read by [facility] as: 1. No pulmonary thromboembolic disease. 2. There appears to be a pre-valvular stenosis of the pulmonary outflow tract probably secondary to asymmetric myocardial hypertrophy of the right ventricle. Suspected post stenotic dilatation indicative of hemodynamic significance. 3. intentionally left blank. 4. There is mild emphysema. 5. Evidence for mild bronchitis and bronchiectasis. 12/08/17 00:51 Test results discussed with the patient. The cardiac anatomic abnormality is known to the patient. Today's workup is otherwise unremarkable. She is not suffering from a COPD exacerbation. Her chest wall pain is most likely musculoskeletal in etiology. I will discharge her home. Departure - Departure Time of Disposition: 00:52 Disposition: Home, Self-Care 01 Condition: Good Clinical Impression: Chest wall pain - Discharge Information Instructions: Chest Wall Pain, [id number] Referrals: Liza Fernandez FINISH MILL OPERATOR [Primary Care Provider] - Jody Granger MD [Ordering Only Provider] - Forms: ED Department Discharge Additional Instructions: You were seen in the emergency room for anterior chest tightness, shortness of breath, and a cough. Workup in the ER included blood work, an ECG, a chest x-ray, and a CT angiogram of your chest. Your workup found that you have an anatomic abnormality of your heart, which you already know about. The remainder of your workup was unremarkable. You are not suffering from a COPD exacerbation. You do not have pneumonia. You do not have a blood clot in your lungs. You do not have a collapsed lung. You have not suffered a heart attack. The cause of your chest pain is MOST LIKELY musculoskeletal in etiology. Follow-up with your PCP, Liza Fernandez, or your Printed Circuit Layout Taper, Dr. Granger, as needed. If any other problems, please do not hesitate to return to the ER. - My Orders Last 24 Hours: My Active Orders 12/07/17 20:37 EKG Documentation Completion [RC] STAT 12/07/17 20:39 Chest 1V Frontal [CR] Stat 12/07/17 21:22 Ang Chest [CT] Stat - Assessment/Plan Last 24 Hours: My Active Orders 12/07/17 20:37 EKG Documentation Completion [RC] STAT 12/07/17 20:39 Chest 1V Frontal [CR] Stat 12/07/17 21:22 Ang Chest [CT] Stat
[2017-12-07] MEDS: HYDROmorphone 0.5 MG/0.5 ML SYRINGE IVPUSH STA ×2 (21:26→23:00)
[2017-12-07] MEDS: Orphenadrine 100 MG Tab.ER PO STA (21:26)
[2017-12-07] MEDS: Sodium Chloride 0.9% 1,000 ML IV SCH (21:33)
[2017-12-08] MEDS: HYDROmorphone 0.5 MG/0.5 ML SYRINGE IVPUSH STA (01:03)
--- NOTE | 2017-12-08 08:45 | CR ---
Chest: Portable view of the chest was obtained. Comparison: Prior chest x-ray of 12/01/17. Heart size is normal. Mediastinum is within normal limits. Scoliosis is seen mostly positional. Lungs are clear. Right shoulder prosthesis is seen. Lungs are hyperinflated compatible with emphysematous change. Impression: 1. Incidental findings. Nothing acute is identified on portable chest x-ray. Diagnostic code #2
--- NOTE | 2017-12-08 08:45 | CT ---
CT chest Technique: Multiple axial sections through the chest were obtained. Intravenous contrast was utilized. Study has been performed as a pulmonary angiogram protocol. Comparison: Prior CT exam of 10/11/17. Findings: Pulmonary arteries are well-opacified. No filling defects are seen to indicate pulmonary embolism. Mediastinum and hilar regions show no adenopathy or mass. Incidental atherosclerotic calcification is noted within the thoracic aorta. No axillary adenopathy is seen. Right shoulder prosthesis is noted. Mild scattered areas of interstitial fibrosis are noted. Emphysematous change is present. No acute pulmonary densities are seen. Bone window settings were reviewed which show no acute osseous abnormality. 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 Impression: 1. No findings of pulmonary embolism. 2. Emphysematous change and mild areas of interstitial scarring. 3. Other nonacute findings as noted above. Diagnostic code #3 Agree with preliminary report issued by [employer] ([facility] preliminary report dictated on 12/08/17, 12:49 AM Central Time)
== END 2017-12-08 01:30 | disposition home or self-care (01) ==
LOC: JD.ED 20:27
DX: R07.89 Other chest pain (principal); I10 Essential (primary) hypertension; Z79.899 Other long term (current) drug therapy; Z87.891 Personal history of nicotine dependence
CPT/HCPCS: 36415; 71045; 71275; 80053; 83880; 84484; 85025; 85379; 85610; 85730; 93005; 96361; 96374; 96376; 99285; A9270; J1170; J7040; 93010; 99284-25

== ENCOUNTER 2017-12-24 22:27 | Emergency (ER) | payer MEDICAID ==
--- NOTE | 2017-12-24 22:45 | EDM.PDOC ---
<Shakira Strong L - Last Filed: 12/24/17 23:29> ED HPI GENERAL MEDICAL PROBLEM - General Chief Complaint: Respiratory Problem Stated Complaint: SOB Time Seen by Provider: 12/24/17 22:44 Source of Information: Reports: Patient - History of Present Illness INITIAL COMMENTS - FREE TEXT/NARRATIVE: Patient is here today for shortness of breath. She states that she does have COPD chronically and is typically on 4 L oxygen daily. She sees Dr. Granger/ poultry scientist and her next appoint with her is January 12, 2018. Patient states that she started to feel more short of breath yesterday and felt that throughout the day yesterday her cough became more productive and is now having green sputum. Patient tried to get in to her PCP today but was unable. Her symptoms did not improve at all so she presented to the emergency room for further evaluation. Patient is on Symbicort twice a day and DuoNeb typically 2 times daily, though she has used 3 times today and is able to use this 4 times daily. Patient reports that she has been on oral steroids in the last month for her COPD. She states that she feels this is the only thing that works for her anymore. Patient is a former cigarette smoker, she quit approximately one year ago. She feels overall short of breath and very anxious. Patient notes some chest tightness/dyspnea but no chest pain or pressure. Denies any change in appetite. Denies any nausea or vomiting. Chest Pain Score (Numeric/FACES): 7 - Related Data Allergies Allergy/AdvReac Type Severity Reaction Status Date / Time No Known Allergies Allergy Verified 12/07/17 20:39 Home Meds: Home Meds Budesonide/Formoterol Fumarate [Symbicort 80-4.5 Mcg Inhaler] 2 puff IH BID [History] Triamterene/Hydrochlorothiazid [Triamterene-HCTZ 37.5-25 MG] 1 each PO DAILY # 30 capsule 04/23/17 [Rx] Mirtazapine [Remeron] 30 mg PO BEDTIME 08/11/17 [History] QUEtiapine Fumarate [Seroquel] 50 mg PO BEDTIME 08/11/17 [History] ALPRAZolam [Xanax] 1 mg PO TID 10/11/17 [History] Albuterol [Proair HFA] 2 puff INH Q4HR PRN 12/01/17 [History] Albuterol/Ipratropium [DuoNeb 3.0-0.5 MG/3 ML] 3 ml INH Q4HR PRN 12/01/17 [ History] Doxycycline [Vibramycin] 100 mg PO Q12H #14 tab 12/02/17 [Rx] predniSONE 20 mg PO WITHBREAKFAST #20 tab 12/02/17 [Rx] Past Medical History HEENT History: Reports: Impaired Vision Cardiovascular History: Reports: Hypertension, Other (See Below) (Right ventricular hypertrophy) Respiratory History: Reports: COPD (advanced, on home O2 4L continuously) Other Respiratory History: end stage COPD, pt is Oxygen dependent Gastrointestinal History: Reports: Colon Polyp Genitourinary History: Reports: Renal Calculus, Urinary Incontinence 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: Reports: Musculoskeletal History: Reports: Arthritis, Osteoporosis Other Musculoskeletal History: c/o back pain Neurological History: Reports: Migraines Psychiatric History: Reports: Anxiety, Depression Endocrine/Metabolic History: Reports: Osteoporosis Hematologic History: Reports: None - Infectious Disease History Infectious Disease History: Reports: Chicken Pox - Past Surgical History HEENT Surgical History: Reports: Oral Surgery ([place] teeth extraction) Female Surgical History: Reports: D&C (x 1), Hysterectomy Musculoskeletal Surgical History: Reports: Shoulder Replacement (reverse) Social & Family History - Family History Family Medical History: Noncontributory - Tobacco Use Smoking Status *Q: Former Smoker Years of Tobacco use: 33 Packs/Tins Daily: 1 Used Tobacco, but Quit: Yes Month/Year Tobacco Last Used: Quit 2016 Second Hand Smoke Exposure: No - Caffeine Use Caffeine Use: Reports: Soda Other Caffeine Use: 2 - Alcohol Use Days Per Week of Alcohol Use: 0 Number of Drinks Per Day: 1 Total Drinks Per Week: 0 - Recreational Drug Use Recreational Drug Use: Yes Drug Use in Last 12 Months: Yes Recreational Drug Type: Reports: Marijuana/Hashish Recreational Drug Use Frequency: Weekly - Living Situation & Occupation Living situation: Reports: Single, Alone Occupation: Disabled ED ROS GENERAL - Review of Systems Review Of Systems: See Below Constitutional: Reports: Malaise, Weakness, Fatigue. Denies: Fever, Chills, Decreased Appetite HEENT: Denies: Rhinitis, Sinus Problem, Throat Pain Respiratory: Reports: Shortness of Breath, Wheezing, Cough, Sputum (green), Hemoptysis. Denies: Pleuritic Chest Pain Cardiovascular: Denies: Chest Pain, Blood Pressure Problem, Dyspnea on Exertion , Lightheadedness Endocrine: Reports: Fatigue GI/Abdominal: Reports: No Symptoms Musculoskeletal: Reports: No Symptoms Skin: Reports: No Symptoms Neurological: Reports: No Symptoms ED EXAM, GENERAL - Physical Exam Exam: See Below Exam Limited By: No Limitations General Appearance: Alert, WD/WN, No Apparent Distress, Other (Patient is thin and chronically ill in appearance.) Ears: Normal External Exam, Normal Canal, Normal TMs Throat/Mouth: Normal Inspection, Normal Oropharynx Head: Atraumatic, Normocephalic Neck: Normal Inspection, Non-Tender. No: Lymphadenopathy (L), Lymphadenopathy ( R) Respiratory/Chest: Respiratory Distress, Decreased Breath Sounds, Accessory Muscle Use, Prolonged Expiration. No: Crackles, Rales, Rhonchi, Wheezing Cardiovascular: Normal Peripheral Pulses, No Murmur, Tachycardia GI/Abdominal: Normal Bowel Sounds, Soft, Non-Tender Neurological: Alert, Oriented Psychiatric: Normal Affect, Anxious Skin Exam: Warm, Dry, Intact EKG INTERPRETATION EKG Date: 12/24/17 Time: 22:43 Rhythm: NSR Rate (Beats/Min): 123 EKG Interpretation Comments: EKG interpreted by Dr. Greenberg. Sinus tachycardia with several PACs. No change from previous 12/07/2017. Course - Vital Signs Last Recorded V/S: Last Vital Signs Temp 36.9 C 12/24/17 22:37 Pulse 122 H 12/24/17 23:37 Resp 24 H 12/24/17 23:37 BP 158/94 H 12/24/17 23:37 Pulse Ox 98 12/24/17 23:37 - Orders/Labs/Meds Orders: Active Orders 24 hr Category Date Time Status EKG Documentation Completion [RC] STAT Care 12/24/17 22:48 Active CXR [Chest 2V] [CR] Stat Exams 12/24/17 22:50 Ordered Acetaminophen/HYDROcodone [[place] 325-5 MG] Med 12/25/17 00:37 Once 2 tab PO ONETIME ONE Labs: Laboratory Tests 12/24/17 12/24/17 12/24/17 Range/Units 22:43 22:43 22:43 WBC 17.34 H (3.98-10.04) K/mm3 RBC 4.74 (3.98-5.22) M/mm3 Hgb 12.7 (11.2-15.7) gm/L Hct 39.1 (34.1-44.9) % MCV 82.5 (79.4-94.8) fl MCH 26.8 (25.6-32.2) pg MCHC 32.5 (32.2-35.5) g/dl RDW Std Deviation 41.8 (36.4-46.3) fL Plt Count 243 (182-369) K/mm3 MPV 10.5 (9.4-12.3) fl Neutrophils % (Manual) 82 H (40-60) % Band Neutrophils % 0 (0-10) % Lymphocytes % (Manual) 14 L (20-40) % Atypical Lymphs % 0 % Monocytes % (Manual) 3 (2-10) % Eosinophils % (Manual) 1 (0.7-5.8) % Basophils % (Manual) 0 L (0.1-1.2) Platelet Estimate Adequate RBC Morph Comment Normal Puncture Site ABG pH (7.35-7.45) ABG pCO2 (35.0-45.0) mmHg ABG pO2 (80.0-100.0) mmHg ABG HCO3 (22.0-26.0) meq/L ABG O2 Saturation (96.0-97.0) % ABG Base Excess (-2-2.0) Johnny Test A-a Gradient mmHg O2 Delivery Device Oxygen Flow Rate FiO2 (21.00-100.00) % Sodium 137 (136-145) mEq/L Potassium 3.3 L (3.5-5.1) mEq/L Chloride 98 (98-107) mEq/L Carbon Dioxide 29 (21-32) mEq/L Anion Gap 13.3 (5-15) BUN 13 (7-18) mg/dL Creatinine 0.9 (0.55-1.02) mg/dL Est Cr Clr Drug Dosing 56.94 mL/min Estimated GFR (MDRD) > 60 (>60) mL/min BUN/Creatinine Ratio 14.4 (14-18) Glucose 169 H (74-106) mg/dL Calcium 9.5 (8.5-10.1) mg/dL Total Bilirubin 0.3 (0.2-1.0) mg/dL AST 17 (15-37) U/L ALT 24 (14-59) U/L Alkaline Phosphatase 83 (46-116) U/L Troponin I < 0.017 (0.00-0.056) ng/mL C-Reactive Protein 7.8 H* (<1.0) mg/dL NT-Pro-B Natriuret Pep 172 H (0-125) pg/mL Total Protein 7.7 (6.4-8.2) g/dl Albumin 3.8 (3.4-5.0) g/dl Globulin 3.9 gm/dL Albumin/Globulin Ratio 1.0 (1-2) // Range/Units 23:35 WBC (3.98-10.04) K/mm3 RBC (3.98-5.22) M/mm3 Hgb (11.2-15.7) gm/L Hct (34.1-44.9) % MCV (79.4-94.8) fl MCH (25.6-32.2) pg MCHC (32.2-35.5) g/dl RDW Std Deviation (36.4-46.3) fL Plt Count (182-369) K/mm3 MPV (9.4-12.3) fl Neutrophils % (Manual) (40-60) % Band Neutrophils % (0-10) % Lymphocytes % (Manual) (20-40) % Atypical Lymphs % % Monocytes % (Manual) (2-10) % Eosinophils % (Manual) (0.7-5.8) % Basophils % (Manual) (0.1-1.2) Platelet Estimate RBC Morph Comment Puncture Site Rt radial ABG pH 7.41 (7.35-7.45) ABG pCO2 45.6 H (35.0-45.0) mmHg ABG pO2 66.0 L (80.0-100.0) mmHg ABG HCO3 28.2 H (22.0-26.0) meq/L ABG O2 Saturation 94.5 L (96.0-97.0) % ABG Base Excess 3.5 H (-2-2.0) Johnny Test Positive A-a Gradient 107 mmHg O2 Delivery Device Cannula Oxygen Flow Rate 4.0 FiO2 36.00 (21.00-100.00) % Sodium (136-145) mEq/L Potassium (3.5-5.1) mEq/L Chloride (98-107) mEq/L Carbon Dioxide (21-32) mEq/L Anion Gap (5-15) BUN (7-18) mg/dL Creatinine (0.55-1.02) mg/dL Est Cr Clr Drug Dosing mL/min Estimated GFR (MDRD) (>60) mL/min BUN/Creatinine Ratio (14-18) Glucose (74-106) mg/dL Calcium (8.5-10.1) mg/dL Total Bilirubin (0.2-1.0) mg/dL AST (15-37) U/L ALT (14-59) U/L Alkaline Phosphatase (46-116) U/L Troponin I (0.00-0.056) ng/mL C-Reactive Protein (<1.0) mg/dL NT-Pro-B Natriuret Pep (0-125) pg/mL Total Protein (6.4-8.2) g/dl Albumin (3.4-5.0) g/dl Globulin gm/dL Albumin/Globulin Ratio (1-2) Meds: Medications Discontinued Medications Generic Name Dose Route Start Last Admin Trade Name Freq PRN Reason Stop Dose Admin Lorazepam 1 mg 12/24/17 22:51 12/24/17 23:08 Ativan PO 12/24/17 22:52 1 mg ONETIME ONE Administration - Re-Assessments/Exams Free Text/Narrative Re-Assessment/Exam: Patient is obviously short of breath and quite anxious on initial exam. No rhonchi/rales/wheezing but she is not moving a lot of air. Will order a DuoNeb treatment as well as basic lab work. Chest x-ray and ABG. Patient is quite anxious and requesting medication for this. Will give 1 mg by mouth Ativan. 12/24/17 22:[address] Greenberg who will assume care of the patient as it is shift change. 12/24/17 23:29 Departure - Departure Disposition: Home, Self-Care 01 Clinical Impression: Severe anxiety, Accidental albuterol overdose - Discharge Information Referrals: Liza Fernandez NP [Primary Care Provider] - Jody Granger MD [Ordering Only Provider] - Forms: ED Department Discharge Additional Instructions: You were seen in the emergency room for shortness of breath. Workup in the ER included blood work, an arterial blood gas, an ECG, and a chest x-ray. Based on your history, physical examination, and lab tests, it is MOST LIKELY that your shortness of breath was due to anxiety, worsened by your recent discontinuation of Xanax (alprazolam). Believing that you're suffering from a COPD exacerbation, you took multiple inhalations of albuterol, further worsening your symptoms of anxiety and shortness of breath. It does NOT appear that you were suffering from a COPD exacerbation. We recommend that you resume your usual medications, and limit use of albuterol to shortness of breath WITH WHEEZING. Follow-up with your Director Of Clinical Services, Dr. Jody Granger, at the next available appointment. If any other problems, please do not hesitate to return to the ER. - My Orders Last 24 Hours: My Active Orders 12/24/17 22:48 EKG Documentation Completion [RC] STAT 12/25/17 00:37 Acetaminophen/HYDROcodone [[place] 325-5 MG] 2 tab PO ONETIME ONE - Assessment/Plan Last 24 Hours: My Active Orders 12/24/17 22:48 EKG Documentation Completion [RC] STAT 12/25/17 00:37 Acetaminophen/HYDROcodone [[place] 325-5 MG] 2 tab PO ONETIME ONE <Chi Greenberg - Last Filed: 12/25/17 00:48> Course - Re-Assessments/Exams Free Text/Narrative Re-Assessment/Exam: 12/25/17 00:19 Two-view chest radiograph reviewed. Cardiac silhouette is within normal limits. No pulmonary vascular congestion. No pleural effusions. No focal infiltrate. No pneumothorax. Hyperinflation and bilateral diaphragmatic flattening, consistent with COPD, noted. Right shoulder reverse arthroplasty noted. Formal read per the Radiologist pending. 12/25/17 00:37 The patient was examined, and test results reviewed with her. No wheezing at this time, and the patient is moving air fairly well. She relates that she ordinarily takes Xanax once or twice a day, but that she has not taken any for the past 3 or 4 days. Her ABG demonstrates a mixed respiratory acidosis and metabolic alkalosis. Based on her history, physical examination, and lab results , I believe that the patient is suffering from higher than usual anxiety, likely as a result of Xanax withdrawal, which caused her to have dyspnea, and as a response, she took excessive albuterol, which further worsened her sense of anxiety and dyspnea. I do not believe that the patient is suffering from a COPD exacerbation at this time. While I would like to see the patient get off Xanax, I explained that she should not abruptly stop it, rather, if she wants to get off it, to taper off of it under the supervision of her prescribing physician. The patient expressed understanding. I do not see an indication to hospitalize the patient. The patient states that she ordinarily takes [place] 3 times a day for her chest pain and right shoulder pain, and that by being here in the ED, she has not been able to. I have ordered 2 tablets of [place]. Departure - Departure Time of Disposition: 00:40 Condition: Fair
[2017-12-24] MEDS ORDERED: LORazepam 1 MG Tab PO ONE (22:51)
[2017-12-24 23:39] VITALS: BP 158/94
[2017-12-25] MEDS ORDERED: Acetaminophen/HYDROcodone 325-5 MG Tab PO ONE (00:37)
--- NOTE | 2017-12-26 16:53 | CR ---
Chest: Two views of the chest are obtained. Comparison: Prior chest x-ray of 12/07/[address] of 12/07/17. Lungs are hyperinflated compatible with emphysematous change. No acute parenchymal change is seen. Heart size and mediastinum are within normal limits. Right shoulder prosthesis is noted. Mild degenerative change is scattered within the spine. Impression: 1. Emphysematous change. Other incidental findings. 2. Nothing acute is seen on two-view chest x-ray. Diagnostic code #2
== END 2017-12-25 01:03 | disposition home or self-care (01) ==
LOC: JD.ED 22:27
DX: T48.6X1A Poisoning by antiasthmatics, accidental (unintentional), initial encounter (principal); F41.8 Other specified anxiety disorders; I10 Essential (primary) hypertension; J44.9 Chronic obstructive pulmonary disease, unspecified; Z99.81 Dependence on supplemental oxygen; F32.9 Major depressive disorder, single episode, unspecified; Z87.442 Personal history of urinary calculi; Z87.891 Personal history of nicotine dependence; Z79.899 Other long term (current) drug therapy
CPT/HCPCS: 36415; 36600; 71046; 80053; 82803; 83880; 84484; 85025; 86140; 93005; 99285; A9270; 93010; 99284

== ENCOUNTER 2017-12-26 21:33 | Inpatient (IN) | payer MEDICAID ==
[2017-12-26] MEDS ORDERED: Sodium Chloride 0.9% 10 ML Syringe FLUSH PRN (21:34)
[2017-12-26] MEDS ORDERED: Albuterol/Ipratropium 3.0-0.5 MG/3 ML Neb Soln NEB ONE (21:35)
[2017-12-26] MEDS ORDERED: Magnesium Sulfate/Water 2 GM in Premix Bag 1 BAG IV ONE (21:35)
[2017-12-26] MEDS ORDERED: Levofloxacin/Dextrose 5%-Water 750 MG in Premix Bag 1 BAG IV ONE (21:36)
[2017-12-26] MEDS ORDERED: methylPREDNISolone Sodium Succinate 125 MG/2 ML SDV IVPUSH ONE (21:36)
[2017-12-26] MEDS ORDERED: LORazepam 2 MG/ML SDV IVPUSH ONE (21:37)
[2017-12-26] MEDS ORDERED: fentaNYL 100 MCG/2 ML SDV IVPUSH ONE (22:26)
--- NOTE | 2017-12-26 23:50 | EDM.PDOC ---
ED HPI GENERAL MEDICAL PROBLEM - General Chief Complaint: Respiratory Problem Stated Complaint: [facility] Time Seen by Provider: 12/26/17 21:34 Source of Information: Reports: Patient, EMS History Limitations: Reports: No Limitations - History of Present Illness INITIAL COMMENTS - FREE TEXT/NARRATIVE: The patient presents with SOB and a productive cough. This has been going on for a few days. She was here 2 days ago and everything checked out okay. She is back and she is more short of breath with a productive cough. She has a low grade temp. When EMS picked her up, her oxygen saturations were low at 74% on 2L of oxygen. She took an albuterol treatment and a duoneb treatment before arrival. She has some mild chest tightness. She has been coughing up some greenish sputum. She has no abdominal pain, nausea or vomiting. Onset: Gradual Duration: Day(s): Location: Reports: Chest Quality: Reports: Other (Tightness) Severity: Mild Improves with: Reports: None Worsens with: Reports: None Associated Symptoms: Reports: Chest Pain, Cough, cough w sputum, Fever/Chills, Shortness of Breath. Denies: Nausea/Vomiting Middle Chest Pain Score (Numeric/FACES): 7 - Related Data Allergies Allergy/AdvReac Type Severity Reaction Status Date / Time No Known Allergies Allergy Verified 12/07/17 20:39 Home Meds: Home Meds Budesonide/Formoterol Fumarate [Symbicort 80-4.5 Mcg Inhaler] 2 puff IH BID [History] Triamterene/Hydrochlorothiazid [Triamterene-HCTZ 37.5-25 MG] 1 each PO DAILY # 30 capsule 04/23/17 [Rx] Mirtazapine [Remeron] 30 mg PO BEDTIME 08/11/17 [History] QUEtiapine Fumarate [Seroquel] 50 mg PO BEDTIME 08/11/17 [History] ALPRAZolam [Xanax] 1 mg PO TID 10/11/17 [History] Albuterol [Proair HFA] 2 puff INH Q4HR PRN 12/01/17 [History] Albuterol/Ipratropium [DuoNeb 3.0-0.5 MG/3 ML] 3 ml INH Q4HR PRN 12/01/17 [ History] Hydrocodone/Acetaminophen [Hydrocodon-Acetaminophn 10-325] 1 tab PO Q6H PRN [History] Past Medical History HEENT History: Reports: Impaired Vision Cardiovascular History: Reports: Hypertension, Other (See Below) Respiratory History: Reports: COPD Other Respiratory History: end stage COPD, pt is Oxygen dependent Gastrointestinal History: Reports: Colon Polyp Genitourinary History: Reports: Renal Calculus, Urinary Incontinence 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: Musculoskeletal History: Reports: Arthritis, Osteoporosis Other Musculoskeletal History: c/o back pain Neurological History: Reports: Migraines Psychiatric History: Reports: Anxiety, Depression Endocrine/Metabolic History: Reports: Osteoporosis Hematologic History: Reports: None - Infectious Disease History Infectious Disease History: Reports: Chicken Pox - Past Surgical History HEENT Surgical History: Reports: Oral Surgery Female Surgical History: Reports: D&C, Hysterectomy Musculoskeletal Surgical History: Reports: Shoulder Replacement Dermatological Surgical History: Reports: None Social & Family History - Family History Family Medical History: Noncontributory - Tobacco Use Smoking Status *Q: Former Smoker Years of Tobacco use: 33 Packs/Tins Daily: 1 Used Tobacco, but Quit: Yes Month/Year Tobacco Last Used: unk Second Hand Smoke Exposure: No - Caffeine Use Caffeine Use: Reports: Soda Other Caffeine Use: 2 - Alcohol Use Days Per Week of Alcohol Use: 0 Number of Drinks Per Day: 1 Total Drinks Per Week: 0 - Recreational Drug Use Recreational Drug Use: Yes Drug Use in Last 12 Months: Yes Recreational Drug Type: Reports: Marijuana/Hashish Recreational Drug Use Frequency: Weekly - Living Situation & Occupation Living situation: Reports: Single, Alone Occupation: Disabled ED ROS GENERAL - Review of Systems Review Of Systems: See Below Constitutional: Reports: Fever HEENT: Reports: No Symptoms Respiratory: Reports: Shortness of Breath, Cough, Sputum Cardiovascular: Reports: Chest Pain Endocrine: Reports: No Symptoms GI/Abdominal: Reports: No Symptoms : Reports: No Symptoms Musculoskeletal: Reports: No Symptoms ED EXAM, GENERAL - Physical Exam Exam: See Below Exam Limited By: No Limitations General Appearance: Alert, Moderate Distress Ears: Normal External Exam Nose: Normal Inspection Head: Atraumatic, Normocephalic Neck: Normal Inspection Respiratory/Chest: Respiratory Distress (Moderate), Decreased Breath Sounds, Wheezing Cardiovascular: No Edema, No Murmur, Tachycardia GI/Abdominal: Soft, Non-Tender, No Organomegaly, No Mass Back Exam: Normal Inspection Extremities: Normal Inspection Course - Vital Signs Last Recorded V/S: Last Vital Signs Temp 98.0 F 12/26/17 21:35 Pulse 131 H 12/26/17 21:35 Resp 20 12/26/17 21:35 BP 175/108 H 12/26/17 21:35 Pulse Ox 96 12/26/17 21:50 - Orders/Labs/Meds Orders: Active Orders 24 hr Category Date Time Status Cardiac Monitoring [RC] . DIRECTED Care 12/26/17 21:35 Active Oxygen Therapy [RC] PRN Care 12/26/17 21:35 Active Peripheral IV Care [RC] . DIRECTED Care 12/26/17 21:35 Active RT Aerosol Therapy [RC] ASDIRECTED Care 12/26/17 21:35 Active Chest 1V Frontal [CR] Stat Exams 12/26/17 21:35 Taken CULTURE BLOOD [BC] Stat Lab 12/26/17 22:00 Received CULTURE BLOOD [BC] Stat Lab 12/26/17 22:06 Received INFLUENZA A+B AG SCREEN [RM] Stat Lab 12/26/17 22:25 Ordered Sodium Chloride 0.9% [Saline Flush] Med 12/26/17 21:34 Active 10 ml FLUSH ASDIRECTED PRN BiPAP [RESPCARE] Routine Oth 12/26/17 21:36 Active Blood Culture x2 Reflex Set [OM.PC] Stat Oth 12/26/17 21:36 Ordered Peripheral IV Insertion Adult [OM.PC] Stat Oth 12/26/17 21:34 Ordered Medication Orders Sodium Chloride (Saline Flush) 10 ml FLUSH ASDIRECTED PRN PRN Reason: Keep Vein Open Last Admin: 12/26/17 21:49 Dose: 10 ml Labs: Laboratory Tests 12/26/17 12/26/17 12/26/17 Range/Units 21:55 22:06 22:06 WBC 14.12 H (3.98-10.04) K/mm3 RBC 4.88 (3.98-5.22) M/mm3 Hgb 13.3 (11.2-15.7) gm/L Hct 39.2 (34.1-44.9) % MCV 80.3 (79.4-94.8) fl MCH 27.3 (25.6-32.2) pg MCHC 33.9 (32.2-35.5) g/dl RDW Std Deviation 41.0 (36.4-46.3) fL Plt Count 286 (182-369) K/mm3 MPV 10.2 (9.4-12.3) fl Neut % (Auto) 78.0 H (34.0-71.1) % Lymph % (Auto) 7.3 L (19.3-51.7) % [place] % (Auto) 14.0 H (4.7-12.5) % Eos % (Auto) 0.4 L (0.7-5.8) Baso % (Auto) 0.2 (0.1-1.2) % Neut # (Auto) 11.01 H (1.56-6.13) K/mm3 Lymph # (Auto) 1.03 L (1.18-3.74) K/mm3 [place] # (Auto) 1.98 H (0.24-0.36) K/mm3 Eos # (Auto) 0.05 (0.04-0.36) K/mm3 Baso # (Auto) 0.03 (0.01-0.08) K/mm3 Manual Slide Review Normal smear Puncture Site Rt radial ABG pH 7.28 L (7.35-7.45) ABG pCO2 61.2 H (35.0-45.0) mmHg ABG pO2 138.0 H (80.0-100.0) mmHg ABG HCO3 27.6 H (22.0-26.0) meq/L ABG O2 Saturation 99.1 H (96.0-97.0) % ABG Base Excess 0.0 (-2-2.0) Johnny Test Positive A-a Gradient 425 mmHg O2 Delivery Device Nrb mask Oxygen Flow Rate 10.0 FiO2 100.00 (21.00-100.00) % Sodium 137 (136-145) mEq/L Potassium 3.5 (3.5-5.1) mEq/L Chloride 96 L (98-107) mEq/L Carbon Dioxide 28 (21-32) mEq/L Anion Gap 16.5 H (5-15) BUN 16 (7-18) mg/dL Creatinine 1.2 H (0.55-1.02) mg/dL Est Cr Clr Drug Dosing 42.70 mL/min Estimated GFR (MDRD) 47 (>60) mL/min BUN/Creatinine Ratio 13.3 L (14-18) Glucose 106 (74-106) mg/dL Calcium 10.0 (8.5-10.1) mg/dL Total Bilirubin 0.5 (0.2-1.0) mg/dL AST 18 (15-37) U/L ALT 21 (14-59) U/L Alkaline Phosphatase 98 (46-116) U/L C-Reactive Protein 49.5 H* (<1.0) mg/dL Total Protein 8.6 H (6.4-8.2) g/dl Albumin 3.8 (3.4-5.0) g/dl Globulin 4.8 gm/dL Albumin/Globulin Ratio 0.8 L (1-2) Meds: Medications Generic Name Dose Route Start Last Admin Trade Name Freq PRN Reason Stop Dose Admin Sodium Chloride 10 ml 12/26/17 21:34 12/26/17 21:49 Saline Flush FLUSH 10 ml ASDIRECTED PRN Administration Keep Vein Open Discontinued Medications Generic Name Dose Route Start Last Admin Trade Name Freq PRN Reason Stop Dose Admin Albuterol/Ipratropium 3 ml 12/26/17 21:35 12/26/17 21:50 Duoneb 3.0-0.5 Mg/3 Ml NEB 12/26/17 21:36 3 ml ONETIME ONE Administration Fentanyl 100 mcg 12/26/17 22:26 12/26/17 22:39 Sublimaze IVPUSH 12/26/17 22:27 100 mcg ONETIME ONE Administration Levofloxacin/Dextrose 750 mg/ 150 mls @ 100 mls/hr 12/26/17 21:36 12/26/17 22 :24 Premix IV 12/26/17 23:05 100 mls/hr ONETIME ONE Administration Magnesium Sulfate 2 gm/ Premix 50 mls @ 25 mls/hr 12/26/17 21:35 12/26/17 21: 47 IV 12/26/17 23:34 25 mls/hr ONETIME ONE Administration Lorazepam 1 mg 12/26/17 21:37 12/26/17 21:44 Ativan IVPUSH 12/26/17 21:38 1 mg ONETIME ONE Administration Methylprednisolone Sodium Succinate 125 mg 12/26/17 21:36 12/26/17 21:46 Solu-Medrol IVPUSH 12/26/17 21:37 125 mg ONETIME ONE Administration - Re-Assessments/Exams Free Text/Narrative Re-Assessment/Exam: 12/26/17 23:58 I ordered an IV saline lock, oxygen, BiPAP, CXR, labs, blood cultures, duoneb, solu-medrol 125mg IV, and ativan 1mg IV. Her CXR shows COPD changes with no infiltrate. Her WBC was elevated at 14.12. Her pH was low at 7.28. Her pCO2 was elevated at 61.2. Her pO2 was 138. Her anion gap was 16.5. Her creatinine was 1.2. He CRP was elevated at 49.5. I have ordered levaquin 750mg IV. She is having a COPD exacerbation. I called Dr Mayo and he agreed to the admission. Departure - Departure Time of Disposition: 00:05 Disposition: Admitted As Inpatient 65 Condition: Serious Clinical Impression: COPD exacerbation, Hypoxia - Discharge Information Referrals: PCP,Unknown [Primary Care Provider] - Forms: ED Department Discharge - My Orders Last 24 Hours: My Active Orders 12/26/17 21:34 Sodium Chloride 0.9% [Saline Flush] 10 ml FLUSH ASDIRECTED PRN Peripheral IV Insertion Adult [OM.PC] Stat 12/26/17 21:35 Cardiac Monitoring [RC] . DIRECTED Oxygen Therapy [RC] PRN Peripheral IV Care [RC] . DIRECTED RT Aerosol Therapy [RC] ASDIRECTED Chest 1V Frontal [CR] Stat 12/26/17 21:36 BiPAP [RESPCARE] Routine Blood Culture x2 Reflex Set [OM.PC] Stat 12/26/17 22:00 CULTURE BLOOD [BC] Stat 12/26/17 22:06 CULTURE BLOOD [BC] Stat 12/26/17 22:25 INFLUENZA A+B AG SCREEN [RM] Stat - Assessment/Plan Last 24 Hours: My Active Orders 12/26/17 21:34 Sodium Chloride 0.9% [Saline Flush] 10 ml FLUSH ASDIRECTED PRN Peripheral IV Insertion Adult [OM.PC] Stat 12/26/17 21:35 Cardiac Monitoring [RC] . DIRECTED Oxygen Therapy [RC] PRN Peripheral IV Care [RC] . DIRECTED RT Aerosol Therapy [RC] ASDIRECTED Chest 1V Frontal [CR] Stat 12/26/17 21:36 BiPAP [RESPCARE] Routine Blood Culture x2 Reflex Set [OM.PC] Stat 12/26/17 22:00 CULTURE BLOOD [BC] Stat 12/26/17 22:06 CULTURE BLOOD [BC] Stat 12/26/17 22:25 INFLUENZA A+B AG SCREEN [RM] Stat
--- NOTE | 2017-12-27 01:07 | PCM.HP ---
H&P History of Present Illness - General Date of Service: 12/27/17 Admit Problem/Dx: COPD Exacerbation Source of Information: Patient, Old Records, Provider, RN Notes Reviewed History Limitations: Reports: Respiratory Distress - History of Present Illness Initial Comments - Free Text/Narative: This is a 52 yo white female with past medical hx/o Impaired Vision, HTN, Urinary Incontinence, OA, Osteoporosis, Back Pain, Migraines, Depression, and Anxiety who comes in for worsening shortness of breath and difficulty breathing. Belinda is known to the hospitalist for numerous admissions related to COPD exacerbation. She used to follow Dr. Messina but now Dr. Granger. She tells me, she has not seen Dr. Granger but has an appointment to see her in January. Sometime last year, she was referred to [facility] but never got around to it. Her initial work up in ED shows a CBC remarkable for WBC of 14.12%, neutrophils of 78%, lymphocytes of 7.3%, monocytes of 14%, and eosinophils of 0.4%. Her ABG shows a pH of 7.28%, PCO2 of 61.2%, pO2 of 138, HCO3 of 27.6, and O2 saturation of 99.1 on non-rebreather mask with FiO2 of 100%. Her chemistry is remarkable for chloride of 96, anion gap of 16.5, creatinine of 1.2, CRP of 49.5, and total protein of 8.6. The chest x-ray shows emphysematous changes and mild diffuse fibrosis. She is admitted for COPD exacerbation. She is full code. Middle Chest Pain Score (Numeric/FACES): 7 - Related Data Allergies/Adverse Reactions: Allergies Allergy/AdvReac Type Severity Reaction Status Date / Time No Known Allergies Allergy Verified 12/27/17 02:48 Home Medications: Home Meds Budesonide/Formoterol Fumarate [Symbicort 80-4.5 Mcg Inhaler] 2 puff IH BID [History] Triamterene/Hydrochlorothiazid [Triamterene-HCTZ 37.5-25 MG] 1 each PO DAILY # 30 capsule 04/23/17 [Rx] Mirtazapine [Remeron] 30 mg PO BEDTIME 08/11/17 [History] QUEtiapine Fumarate [Seroquel] 50 mg PO BEDTIME 08/11/17 [History] ALPRAZolam [Xanax] 1 mg PO TID 10/11/17 [History] Albuterol [Proair HFA] 2 puff INH Q4HR PRN 12/01/17 [History] Albuterol/Ipratropium [DuoNeb 3.0-0.5 MG/3 ML] 3 ml INH Q4HR PRN 12/01/17 [ History] Hydrocodone/Acetaminophen [Hydrocodon-Acetaminophn 10-325] 1 tab PO Q6H PRN [History] Magnesium Oxide 1 tab PO BID 12/27/17 [History] Past Medical History HEENT History: Reports: Impaired Vision Cardiovascular History: Reports: Hypertension, Other (See Below) Respiratory History: Reports: COPD Other Respiratory History: end stage COPD, pt is Oxygen dependent Gastrointestinal History: Reports: Colon Polyp Genitourinary History: Reports: Renal Calculus, Urinary Incontinence 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: Musculoskeletal History: Reports: Arthritis, Osteoporosis Other Musculoskeletal History: c/o back pain Neurological History: Reports: Migraines Psychiatric History: Reports: Anxiety, Depression Endocrine/Metabolic History: Reports: Osteoporosis Hematologic History: Reports: None - Infectious Disease History Infectious Disease History: Reports: Chicken Pox - Past Surgical History HEENT Surgical History: Reports: Oral Surgery Female Surgical History: Reports: D&C, Hysterectomy Musculoskeletal Surgical History: Reports: Shoulder Replacement Dermatological Surgical History: Reports: None Social & Family History - Family History Family Medical History: Noncontributory - Tobacco Use Smoking Status *Q: Former Smoker Years of Tobacco use: 33 Packs/Tins Daily: 1 Used Tobacco, but Quit: Yes Month/Year Tobacco Last Used: unk Second Hand Smoke Exposure: No - Caffeine Use Caffeine Use: Reports: Soda Other Caffeine Use: 2 - Alcohol Use Days Per Week of Alcohol Use: 0 Number of Drinks Per Day: 1 Total Drinks Per Week: 0 - Recreational Drug Use Recreational Drug Use: Yes Drug Use in Last 12 Months: Yes Recreational Drug Type: Reports: Marijuana/Hashish Recreational Drug Use Frequency: Weekly - Living Situation & Occupation Living situation: Reports: Single, Alone Occupation: Disabled H&P Review of Systems - Review of Systems: Review Of Systems: See Below General: Reports: Fever, Chills, Malaise, Weakness, Fatigue HEENT: Reports: No Symptoms Pulmonary: Reports: Shortness of Breath, Cough, Sputum. Denies: Pleuritic Chest Pain Cardiovascular: Reports: Dyspnea on Exertion. Denies: Chest Pain, Palpitations , Edema, Lightheadedness, Syncope, Claudication Gastrointestinal: Reports: No Symptoms. Denies: Nausea, Vomiting Genitourinary: Reports: No Symptoms Musculoskeletal: Reports: No Symptoms Skin: Denies: Cyanosis, Jaundice, Mottled, Pallor, Diaphoresis, Rash Psychiatric: Denies: Agitation, Hallucinations Neurological: Denies: Confusion, Difficulty Walking, Weakness, Gait Disturbance Hematologic/Lymphatic: Reports: No Symptoms Immunologic: Reports: No Symptoms Exam - Exam Exam: See Below - Vital Signs Vital Signs: Last Vital Signs Temp 38.0 C 12/27/17 00:46 Pulse 117 H 12/27/17 00:44 Resp 20 12/27/17 00:44 BP 146/92 H 12/27/17 00:44 Pulse Ox 97 12/27/17 00:44 Weight: 49.895 kg - Exam Quality Assessment: Supplemental Oxygen General: Alert, Oriented, Moderate Distress, Other (cachectic) HEENT: Conjunctiva Clear, EACs Clear, EOMI, Hearing Intact, Mucosa Moist & [place] , Nares Patent, Normal Nasal Septum, Posterior Pharynx Clear, Pupils Equal, Pupils Reactive Neck: Supple, Trachea Midline, +2 Carotid Pulse wo Bruit, Full Range of Motion, Other (mild-mod accessory muscle use) Lungs: Other (poor air entry). No: Normal Respiratory Effort Cardiovascular: Regular Rate, Regular Rhythm GI/Abdominal Exam: Normal Bowel Sounds, Soft, Non-Tender, No Organomegaly, No Distention, No Abnormal Bruit (Female) Exam: Deferred Rectal (Female) Exam: Deferred Back Exam: Normal Inspection, Decreased Range of Motion Extremities: Normal Inspection, Normal Range of Motion, Non-Tender, No Pedal Edema, Normal Capillary Refill Peripheral Pulses: 2+: Posterior Tibial (L), Posterior Tibial (R), Dorsalis Pedis (L), Dorsalis Pedis (R) Skin: Warm, Dry, Intact Neuro Extensive - Mental Status: Oriented x3, Normal Cognition, Memory Intact Neuro Extensive - Motor, Sensory, Reflexes: CN II-XII Intact, Normal Gait Psychiatric: Alert, Normal Affect, Anxious. No: Agitated, Withdrawal Symptoms Physical Exam Comments:: She looks miserable - Patient Data Result Diagrams: 12/27/17 05:49 12/27/17 05:49 *Q Meaningful Use (ADM) - VTE *Q VTE Criteria *Q: - Stroke *Q Stroke Criteria *Q: - AMI *Q AMI Criteria *Q: Problem List Initiated/Reviewed/Updated: Yes Orders Last 24hrs: Medication Orders Sodium Chloride (Saline Flush) 10 ml FLUSH ASDIRECTED PRN PRN Reason: Keep Vein Open Last Admin: 12/26/17 21:49 Dose: 10 ml Assessment/Plan Comment:: Assessment/Plan: Acute: COPD Exacerbation - End Stage - IV Steroids, Bronchodilators, IV Mg, Supplement O2 - IV Morphine PRN for severe Dyspnea - Has not seen Dr. Granger - Has been referred to [facility] but never got around to it; referral Respiratory Failure - BIPAP 07/15 Chronic: Impaired Vision HTN Urinary Incontinence OA Osteoporosis Back Pain Migraines Depression Anxiety Plan: Admit to the floor Resume Home Meds Routine AL Labs RT/OT/PT consult SW/CM for d/c planning Code Status: 1
[2017-12-27] MEDS ORDERED: Albuterol 6.7 GM Inhaler INH PRN (01:31)
[2017-12-27] MEDS ORDERED: Docusate Sodium 100 MG Cap PO PRN (01:32)
[2017-12-27] MEDS ORDERED: Promethazine 12.5 MG in Sodium Chloride 0.9% 50 ML IV PRN (01:32)
[2017-12-27] MEDS ORDERED: Polyethylene Glycol 3350 Powder 17 GM Packet PO PRN (01:32)
[2017-12-27] MEDS ORDERED: Acetaminophen 325 MG Tab PO PRN (01:32)
[2017-12-27] MEDS ORDERED: Ondansetron 4 MG/2 ML SDV IV PRN (01:32)
[2017-12-27] MEDS ORDERED: HYDROmorphone 0.5 MG/0.5 ML SYRINGE IVPUSH PRN (01:32)
[2017-12-27] MEDS ORDERED: Bisacodyl 5 MG Tab PO PRN (01:32)
[2017-12-27] MEDS ORDERED: Azithromycin 500 MG in Sodium Chloride 0.9% 250 ML IV ONE (02:00)
[2017-12-27] MEDS: LORazepam 2 MG/ML SDV IV PRN ×2 (02:01→09:59)
[2017-12-27] MEDS: Formoterol/Mometasone 100-5 MCG 8.8 GM Inhaler IH SCH ×2 (02:10→08:45)
[2017-12-27] MEDS: Morphine 2 MG/ML Syringe IVPUSH PRN ×2 (02:13→08:39)
[2017-12-27] MEDS: methylPREDNISolone Sodium Succinate 125 MG/2 ML SDV IVPUSH SCH ×4 (02:16→20:47)
[2017-12-27] MEDS: Acetaminophen/HYDROcodone 325-10 MG Tab PO PRN ×3 (03:07→17:13)
--- NOTE | 2017-12-27 08:24 | PCM.PN ---
- General Info Date of Service: 12/27/17 Admission Dx/Problem (Free Text): COPD Exacerbation Functional Status: Reports: Pain Controlled, Tolerating Diet, Ambulating, Urinating, Incentive Spirometry. Denies: New Symptoms - Review of Systems General: Reports: Weakness. Denies: Fever, Fatigue, Malaise HEENT: Reports: No Symptoms Pulmonary: Reports: Shortness of Breath, Pleuritic Chest Pain, Cough, Sputum, Wheezing Cardiovascular: Reports: Chest Pain ("worse with cough"), Dyspnea on Exertion. Denies: Palpitations, Edema Gastrointestinal: Denies: Abdominal Pain, Constipation, Diarrhea, Nausea, Vomiting Genitourinary: Reports: No Symptoms Musculoskeletal: Reports: No Symptoms Skin: Reports: No Symptoms Neurological: Reports: No Symptoms Psychiatric: Reports: No Symptoms - Patient Data Vitals - Most Recent: Last Vital Signs Temp 98.2 F 12/27/17 03:13 Pulse 104 H 12/27/17 03:13 Resp 28 H 12/27/17 03:13 BP 132/98 H 12/27/17 03:13 Pulse Ox 98 12/27/17 03:13 Weight - Most Recent: 112 lb 4.8 oz I&O - Last 24 Hours: Intake & Output 12/26/17 12/27/17 12/27/17 22:59 06:59 14:59 Intake Total 490 Output Total 300 Balance 190 Lab Results Last 24 Hours: Laboratory Results - last 24 hr 12/27/17 12/27/17 Range/Units 05:49 05:49 WBC 9.93 (3.98-10.04) K/mm3 RBC 4.41 (3.98-5.22) M/mm3 Hgb 12.2 (11.2-15.7) gm/L Hct 36.4 (34.1-44.9) % MCV 82.5 (79.4-94.8) fl MCH 27.7 (25.6-32.2) pg MCHC 33.5 (32.2-35.5) g/dl RDW Std Deviation 41.6 (36.4-46.3) fL Plt Count 271 (182-369) K/mm3 MPV 11.0 (9.4-12.3) fl Neut % (Auto) 94.6 H (34.0-71.1) % Lymph % (Auto) 2.9 L (19.3-51.7) % [place] % (Auto) 2.3 L (4.7-12.5) % Eos % (Auto) 0.1 L (0.7-5.8) Baso % (Auto) 0.1 (0.1-1.2) % Neut # (Auto) 9.39 H (1.56-6.13) K/mm3 Lymph # (Auto) 0.29 L (1.18-3.74) K/mm3 [place] # (Auto) 0.23 L (0.24-0.36) K/mm3 Eos # (Auto) 0.01 L (0.04-0.36) K/mm3 Baso # (Auto) 0.01 (0.01-0.08) K/mm3 Manual Slide Review Abnormal smear Sodium 132 L (136-145) mEq/L Potassium 3.9 (3.5-5.1) mEq/L Chloride 95 L (98-107) mEq/L Carbon Dioxide 29 (21-32) mEq/L Anion Gap 11.9 (5-15) BUN 18 (7-18) mg/dL Creatinine 1.2 H (0.55-1.02) mg/dL Est Cr Clr Drug Dosing 43.60 mL/min Estimated GFR (MDRD) 47 (>60) mL/min BUN/Creatinine Ratio 15.0 (14-18) Glucose 153 H (74-106) mg/dL Calcium 9.7 (8.5-10.1) mg/dL Magnesium 2.3 (1.8-2.4) mg/dl C-Reactive Protein 44.4 H* (<1.0) mg/dL Med Orders - Current: Current Medications Acetaminophen (Tylenol) 650 mg PO Q4H PRN PRN Reason: Pain (Mild 1-3)/fever Hydrocodone Bitart/Acetaminophen ([place] 325-10 Mg) 1 tab PO Q6H PRN PRN Reason: Pain Last Admin: 12/27/17 03:07 Dose: 1 tab Albuterol (Proventil Hfa) 0 gm INH Q4HR PRN PRN Reason: Shortness of Breath Albuterol/Ipratropium (Duoneb 3.0-0.5 Mg/3 Ml) 3 ml INH Q4HR PRN PRN Reason: Shortness of Breath Alprazolam (Xanax) 1 mg PO TID [facility] Azithromycin (Zithromax) 250 mg PO DAILY [facility] Bisacodyl (Dulcolax) 5 mg PO DAILY PRN PRN Reason: Constipation Docusate Sodium (Colace) 100 mg PO BID PRN PRN Reason: Constipation Guaifenesin/Phenylephrine HCl (Robitussin Dm) 5 ml PO Q4H PRN PRN Reason: Cough Hydromorphone HCl (Dilaudid) 0.25 mg IVPUSH Q2H PRN PRN Reason: Pain (severe 7-10) Promethazine HCl 12.5 mg/ (Sodium Chloride) 50.5 mls @ 100 mls/hr IV Q6H PRN PRN Reason: Nausea/Vomiting Lorazepam (Ativan) 0.5 mg IV Q6H PRN PRN Reason: Anxiety Last Admin: 12/27/17 02:01 Dose: 0.5 mg Methylprednisolone Sodium Succinate (Solu-Medrol) 125 mg IVPUSH Q6H [facility] Last Admin: 12/27/17 02:16 Dose: 125 mg Mirtazapine (Remeron) 30 mg PO BEDTIME [facility] Mometasone Furoate/Formoterol Fumar (Dulera 100-5 Mcg) 2 puff IH BID [facility] Last Admin: 12/27/17 02:10 Dose: Not Given Morphine Sulfate (Morphine) 1 mg IVPUSH Q6H PRN PRN Reason: Chest Pain Last Admin: 12/27/17 02:13 Dose: 1 mg Ondansetron HCl (Zofran) 4 mg IV Q6H PRN PRN Reason: Nausea/Vomiting Polyethylene Glycol (Miralax) 17 gm PO DAILY PRN PRN Reason: Constipation Quetiapine Fumarate (Seroquel) 50 mg PO BEDTIME [facility] Senna/Docusate Sodium (Senna Plus) 1 tab PO BID PRN PRN Reason: Constipation Sodium Chloride (Saline Flush) 10 ml FLUSH ASDIRECTED PRN PRN Reason: Keep Vein Open Last Admin: 12/26/17 21:49 Dose: 10 ml Triamterene/HCTZ (Dyazide 25-37.5 Mg) 1 each PO DAILY [facility] Discontinued Medications Albuterol/Ipratropium (Duoneb 3.0-0.5 Mg/3 Ml) 3 ml NEB ONETIME ONE Stop: 12/26/17 21:36 Last Admin: 12/26/17 21:50 Dose: 3 ml Fentanyl (Sublimaze) 100 mcg IVPUSH ONETIME ONE Stop: 12/26/17 22:27 Last Admin: 12/26/17 22:39 Dose: 100 mcg Levofloxacin/Dextrose 750 mg/ (Premix) 150 mls @ 100 mls/hr IV ONETIME ONE Stop: 12/26/17 23:05 Last Admin: 12/26/17 22:24 Dose: 100 mls/hr Magnesium Sulfate 2 gm/ Premix 50 mls @ 25 mls/hr IV ONETIME ONE Stop: 12/26/17 23:34 Last Admin: 12/26/17 21:47 Dose: 25 mls/hr Azithromycin 500 mg/ Sodium (Chloride) 250 mls @ 250 mls/hr IV ONETIME ONE Stop: 12/27/17 02:59 Last Admin: 12/27/17 02:19 Dose: 250 mls/hr Magnesium Sulfate/Dextrose 1 (gm/ Premix) 100 mls @ 100 mls/hr IV ONETIME ONE Stop: 12/27/17 02:59 Last Admin: 12/27/17 02:21 Dose: 100 mls/hr Lorazepam (Ativan) 1 mg IVPUSH ONETIME ONE Stop: 12/26/17 21:38 Last Admin: 12/26/17 21:44 Dose: 1 mg Methylprednisolone Sodium Succinate (Solu-Medrol) 125 mg IVPUSH ONETIME ONE Stop: 12/26/17 21:37 Last Admin: 12/26/17 21:46 Dose: 125 mg - Exam Quality Assessment: Supplemental Oxygen, DVT Prophylaxis General: Alert, Oriented, Cooperative, Mild Distress (SOB ) HEENT: Pupils Equal, Pupils Reactive, EOMI, Mucous Membr. Moist/[place] Neck: Supple, Trachea Midline, No JVD Lungs: Normal Respiratory Effort, Decreased Breath Sounds, Wheezing Cardiovascular: Regular Rate, Regular Rhythm GI/Abdominal Exam: Normal Bowel Sounds, Soft, Non-Tender, No Organomegaly, No Distention, No Abnormal Bruit, No Mass, Pelvis Stable (Female) Exam: Deferred Back Exam: Normal Inspection, Full Range of Motion Extremities: Normal Inspection, Normal Range of Motion, Non-Tender, No Pedal Edema, Normal Capillary Refill Peripheral Pulses: 2+: Radial (L), Radial (R), Posterior Tibial (L), Posterior Tibial (R), Dorsalis Pedis (L), Dorsalis Pedis (R) Skin: Warm, Dry, Intact Neurological: No New Focal Deficit Psy/Mental Status: Alert, Normal Affect, Normal Mood - Problem List & Annotations (1) Renal insufficiency SNOMED Code(s): 659650969 Code(s): N28.9 - DISORDER OF KIDNEY AND URETER, UNSPECIFIED Status: Acute Current Visit: Yes (2) COPD exacerbation SNOMED Code(s): 098134638 Code(s): J44.1 - CHRONIC OBSTRUCTIVE PULMONARY DISEASE W (ACUTE) EXACERBATION Status: Acute Current Visit: Yes (3) Hypoxia SNOMED Code(s): 324739474 Code(s): R09.02 - HYPOXEMIA Status: Acute Current Visit: Yes (4) Mycoplasma pneumonia SNOMED Code(s): 68945457 Code(s): J15.7 - PNEUMONIA DUE TO MYCOPLASMA PNEUMONIAE Status: Acute Priority: High Current Visit: Yes Qualifiers: Laterality: unspecified laterality Lung location: unspecified part of lung Qualified Code(s): J15.7 - Pneumonia due to Mycoplasma pneumoniae (5) HTN (hypertension) SNOMED Code(s): 07495935 Code(s): I10 - ESSENTIAL (PRIMARY) HYPERTENSION Status: Chronic Priority : Low Current Visit: No Qualifiers: Hypertension type: unspecified Qualified Code(s): I10 - Essential (primary ) hypertension (6) Arthritis SNOMED Code(s): 2566359 Code(s): M19.90 - UNSPECIFIED OSTEOARTHRITIS, UNSPECIFIED SITE Status: Chronic Priority: Medium Current Visit: Yes (7) Other specified depressive episodes SNOMED Code(s): 49442779 Code(s): F32.89 - OTHER SPECIFIED DEPRESSIVE EPISODES Status: Chronic Priority: Low Current Visit: No (8) Anxiety SNOMED Code(s): 55602055 Code(s): F41.9 - ANXIETY DISORDER, UNSPECIFIED Status: Chronic Priority: Medium Current Visit: No - Problem List Review Problem List Initiated/Reviewed/Updated: Yes - Plan Plan:: Assessment/Plan: Acute: COPD Exacerbation - End Stage - IV Steroids, Bronchodilators, IV Mg, Supplement O2 as needed - IV Morphine PRN for severe Dyspnea - Levaquin started in ED - stop - Has not seen Dr. Elkin - Follow-up appt. scheduled - Has been referred to [facility] but never got around to it; referral - Sputum culture, viral respiratory panel, strep pneumo - all pending Positive Mycoplasma Pneumonia - Azithromycin - Duonebs/RT/IS/Acapella - Mucinex - CXR shows nothing acute - Repeat CXR in 24-48 hrs - Droplet precautions Hyponatremia - Sodium 132 - IV NS for now - Monitor Renal insufficiency - Acute - Baseline appears to be WNL - eGFR 47, Creatinine 1.2, Bun 18 - IV fluids - Use caution with nephrotoxic drugs Respiratory Failure - BIPAP 07/15 Chronic: Impaired Vision HTN Urinary Incontinence OA Osteoporosis Back Pain Migraines Depression Anxiety Plan: Admit to the floor Resume Home Meds Routine AM Labs RT/OT/PT consult SW/CM for d/c planning PE/DVT prophylaxis: SCDs Code Status: Full code
[2017-12-27] MEDS: Hydrochlorothiazide/Triamterene 25-37.5 MG Cap PO SCH (08:37)
[2017-12-27] MEDS: ALPRAZolam 1 MG Tab PO SCH ×3 (08:37→20:48)
--- NOTE | 2017-12-27 10:01 | CR ---
Chest: Portable view of the chest was obtained. Comparison: Prior chest x-ray of 12/24/17. Lungs are hyperinflated compatible with emphysematous change. Heart size and mediastinum are normal. Lung markings are mildly increased believed to represent slight fibrosis. No acute parenchymal change suspected within either lung. Right shoulder prosthesis is seen. Impression: 1. Emphysematous change and mild diffuse fibrosis. 2. Other incidental findings. Nothing acute is definitely seen. Diagnostic code #3
[2017-12-27] MEDS ORDERED: Sodium Chloride 0.9% 1,000 ML IV SCH (11:30)
[2017-12-27] MEDS ORDERED: LORazepam 1 MG Tab PO SCH (15:00)
[2017-12-27] MEDS: Morphine 4 MG/ML Syringe IVPUSH PRN ×2 (15:42→21:53)
[2017-12-27] MEDS ORDERED: LORazepam 1 MG Tab PO PRN (16:44)
[2017-12-27] MEDS: Albuterol/Ipratropium 3.0-0.5 MG/3 ML Neb Soln INH PRN (20:30)
[2017-12-27] MEDS: Mirtazapine 30 MG Tab PO SCH (20:47)
[2017-12-27] MEDS: guaiFENesin 600 MG Tab.ER PO SCH (20:47)
[2017-12-27] MEDS: QUEtiapine 25 MG Tab PO SCH (20:47)
[2017-12-27] MEDS: SYMBICORT INH SCH (21:13)
[2017-12-28] MEDS: methylPREDNISolone Sodium Succinate 125 MG/2 ML SDV IVPUSH SCH ×2 (03:47→08:21)
[2017-12-28] MEDS: Acetaminophen/HYDROcodone 325-10 MG Tab PO PRN ×3 (04:08→21:25)
[2017-12-28] MEDS: ALPRAZolam 1 MG Tab PO SCH ×3 (08:20→21:24)
[2017-12-28] MEDS: Azithromycin 250 MG Tab PO SCH (08:20)
[2017-12-28] MEDS: Hydrochlorothiazide/Triamterene 25-37.5 MG Cap PO SCH (08:20)
[2017-12-28] MEDS: guaiFENesin 600 MG Tab.ER PO SCH ×2 (08:21→21:24)
[2017-12-28] MEDS: Morphine 4 MG/ML Syringe IVPUSH PRN (09:02)
[2017-12-28] MEDS: Albuterol/Ipratropium 3.0-0.5 MG/3 ML Neb Soln INH PRN (09:10)
[2017-12-28] MEDS: SYMBICORT INH SCH ×2 (09:22→20:00)
--- NOTE | 2017-12-28 09:34 | PCM.PN ---
- General Info Date of Service: 12/28/17 Admission Dx/Problem (Free Text): COPD Exacerbation Subjective Update: In to see Belinda. She is sleeping when I enter the room but does awake easily. She has been utilizing BIPAP on and off and think this is benefited her. When she is not utilizing CPAP she does have oxygen on. She has no concerns currently all she does state she feels horrible. Nursing has no concerns. We did stop her morphine and Ativan as she does have home and anxiety meds which she is receiving. She has been quite groggy this morning and was falling asleep while nursing was talking to her. We'll continue some of her pain meds, however we have trim these down. Functional Status: Reports: Pain Controlled, Tolerating Diet, Ambulating, Urinating. Denies: New Symptoms - Review of Systems General: Reports: Weakness, Fatigue HEENT: Reports: No Symptoms Pulmonary: Reports: Shortness of Breath, Pleuritic Chest Pain, Cough, Sputum, Wheezing Cardiovascular: Reports: Chest Pain, Dyspnea on Exertion Gastrointestinal: Reports: No Symptoms. Denies: Abdominal Pain, Constipation, Diarrhea, Nausea, Vomiting Genitourinary: Reports: No Symptoms Musculoskeletal: Reports: No Symptoms Skin: Reports: No Symptoms Neurological: Reports: No Symptoms Psychiatric: Reports: No Symptoms - Patient Data Vitals - Most Recent: Last Vital Signs Temp 98.2 F 12/28/17 08:00 Pulse 92 12/28/17 08:00 Resp 28 H 12/28/17 08:00 BP 130/79 12/28/17 08:00 Pulse Ox 91 L 12/28/17 09:14 Weight - Most Recent: 117 lb 4.8 oz I&O - Last 24 Hours: Intake & Output 12/27/17 12/28/17 12/28/17 22:59 06:59 14:59 Intake Total 1520 1050 Balance 1520 1050 Lab Results Last 24 Hours: Laboratory Results - last 24 hr 12/28/17 Range/Units 05:32 Sodium 135 L (136-145) mEq/L Potassium 3.8 (3.5-5.1) mEq/L Chloride 96 L (98-107) mEq/L Carbon Dioxide 31 (21-32) mEq/L Anion Gap 11.8 (5-15) BUN 22 H (7-18) mg/dL Creatinine 1.1 H (0.55-1.02) mg/dL Est Cr Clr Drug Dosing 49.68 mL/min Estimated GFR (MDRD) 52 (>60) mL/min BUN/Creatinine Ratio 20.0 H (14-18) Glucose 225 H (74-106) mg/dL Calcium 9.2 (8.5-10.1) mg/dL Magnesium 2.0 (1.8-2.4) mg/dl C-Reactive Protein 22.1 H* (<1.0) mg/dL John Results Last 24 Hours: Microbiology 12/27/17 02:49 Gram Stain - Final Sputum - Expectorated Sputum Culture - Preliminary 12/27/17 02:49 Respiratory Virus Panel (PCR) (JOHN) - Final Nasopharyngeal Swab Med Orders - Current: Current Medications Acetaminophen (Tylenol) 650 mg PO Q4H PRN PRN Reason: Pain (Mild 1-3)/fever Hydrocodone Bitart/Acetaminophen ([place] 325-10 Mg) 1 tab PO Q6H PRN PRN Reason: Pain Last Admin: 12/28/17 04:08 Dose: 1 tab Albuterol (Proventil Hfa) 0 gm INH Q4HR PRN PRN Reason: Shortness of Breath Albuterol/Ipratropium (Duoneb 3.0-0.5 Mg/3 Ml) 3 ml INH Q4HR PRN PRN Reason: Shortness of Breath Last Admin: 12/28/17 09:10 Dose: 3 ml Alprazolam (Xanax) 1 mg PO TID [facility] Last Admin: 12/28/17 08:20 Dose: 1 mg Azithromycin (Zithromax) 250 mg PO DAILY [facility] Last Admin: 12/28/17 08:20 Dose: 250 mg Bisacodyl (Dulcolax) 5 mg PO DAILY PRN PRN Reason: Constipation Docusate Sodium (Colace) 100 mg PO BID PRN PRN Reason: Constipation Guaifenesin (Mucinex) 1,200 mg PO BID [facility] Last Admin: 12/28/17 08:21 Dose: 1,200 mg Guaifenesin/Phenylephrine HCl (Robitussin Dm) 5 ml PO Q4H PRN PRN Reason: Cough Hydromorphone HCl (Dilaudid) 0.25 mg IVPUSH Q2H PRN PRN Reason: Pain (severe 7-10) Promethazine HCl 12.5 mg/ (Sodium Chloride) 50.5 mls @ 100 mls/hr IV Q6H PRN PRN Reason: Nausea/Vomiting Lorazepam (Ativan) 1 mg PO TID PRN PRN Reason: Anxiety Last Admin: 12/28/17 03:47 Dose: 1 mg Methylprednisolone Sodium Succinate (Solu-Medrol) 125 mg IVPUSH Q6H [facility] Last Admin: 12/28/17 08:21 Dose: 125 mg Mirtazapine (Remeron) 30 mg PO BEDTIME [facility] Last Admin: 12/27/17 20:47 Dose: 30 mg Morphine Sulfate (Morphine) 1 mg IVPUSH Q6H PRN PRN Reason: Chest Pain Last Admin: 12/28/17 09:02 Dose: 1 mg Ondansetron HCl (Zofran) 4 mg IV Q6H PRN PRN Reason: Nausea/Vomiting Symbicort Inhaler (160-4.5 Mcg) 0 each INH BID [facility] Last Admin: 12/28/17 09:22 Dose: Not Given Polyethylene Glycol (Miralax) 17 gm PO DAILY PRN PRN Reason: Constipation Quetiapine Fumarate (Seroquel) 50 mg PO BEDTIME [facility] Last Admin: 12/27/17 20:47 Dose: 50 mg Senna/Docusate Sodium (Senna Plus) 1 tab PO BID PRN PRN Reason: Constipation Sodium Chloride (Saline Flush) 10 ml FLUSH ASDIRECTED PRN PRN Reason: Keep Vein Open Last Admin: 12/26/17 21:49 Dose: 10 ml Triamterene/HCTZ (Dyazide 25-37.5 Mg) 1 each PO DAILY [facility] Last Admin: 12/28/17 08:20 Dose: 1 each Discontinued Medications Albuterol/Ipratropium (Duoneb 3.0-0.5 Mg/3 Ml) 3 ml NEB ONETIME ONE Stop: 12/26/17 21:36 Last Admin: 12/26/17 21:50 Dose: 3 ml Fentanyl (Sublimaze) 100 mcg IVPUSH ONETIME ONE Stop: 12/26/17 22:27 Last Admin: 12/26/17 22:39 Dose: 100 mcg Levofloxacin/Dextrose 750 mg/ (Premix) 150 mls @ 100 mls/hr IV ONETIME ONE Stop: 12/26/17 23:05 Last Admin: 12/26/17 22:24 Dose: 100 mls/hr Magnesium Sulfate 2 gm/ Premix 50 mls @ 25 mls/hr IV ONETIME ONE Stop: 12/26/17 23:34 Last Admin: 12/26/17 21:47 Dose: 25 mls/hr Azithromycin 500 mg/ Sodium (Chloride) 250 mls @ 250 mls/hr IV ONETIME ONE Stop: 12/27/17 02:59 Last Admin: 12/27/17 02:19 Dose: 250 mls/hr Magnesium Sulfate/Dextrose 1 (gm/ Premix) 100 mls @ 100 mls/hr IV ONETIME ONE Stop: 12/27/17 02:59 Last Admin: 12/27/17 02:21 Dose: 100 mls/hr Sodium Chloride (Normal Saline) 1,000 mls @ 100 mls/hr IV ASDIRECTED [facility] Stop: 12/27/17 21:29 Last Admin: 12/27/17 12:34 Dose: 100 mls/hr Lorazepam (Ativan) 1 mg IVPUSH ONETIME ONE Stop: 12/26/17 21:38 Last Admin: 12/26/17 21:44 Dose: 1 mg Lorazepam (Ativan) 0.5 mg IV Q6H PRN PRN Reason: Anxiety Last Admin: 12/27/17 09:59 Dose: 0.5 mg Lorazepam (Ativan) 1 mg PO TID [facility] Last Admin: 12/27/17 18:56 Dose: Not Given Methylprednisolone Sodium Succinate (Solu-Medrol) 125 mg IVPUSH ONETIME ONE Stop: 12/26/17 21:37 Last Admin: 12/26/17 21:46 Dose: 125 mg Mometasone Furoate/Formoterol Fumar (Dulera 100-5 Mcg) 2 puff IH BID [facility] Last Admin: 12/27/17 08:45 Dose: Not Given Morphine Sulfate (Morphine) 1 mg IVPUSH Q6H PRN PRN Reason: Chest Pain Last Admin: 12/27/17 08:39 Dose: 1 mg - Exam Quality Assessment: Supplemental Oxygen, DVT Prophylaxis General: Alert, Oriented, Cooperative, Mild Distress (coughing ) HEENT: Pupils Equal Neck: Supple, Trachea Midline, No JVD Lungs: Normal Respiratory Effort, Decreased Breath Sounds, Wheezing Cardiovascular: Regular Rate, Regular Rhythm GI/Abdominal Exam: Normal Bowel Sounds, Soft, Non-Tender, No Organomegaly, No Distention, No Abnormal Bruit, No Mass, Pelvis Stable (Female) Exam: Deferred Back Exam: Normal Inspection, Full Range of Motion Extremities: Normal Inspection, Normal Range of Motion, Non-Tender, No Pedal Edema, Normal Capillary Refill Peripheral Pulses: 2+: Posterior Tibial (L), Posterior Tibial (R), Dorsalis Pedis (L), Dorsalis Pedis (R), 3+: Radial (L), Radial (R) Skin: Warm, Dry, Intact Neurological: No New Focal Deficit Psy/Mental Status: Alert, Normal Affect, Anxious - Problem List & Annotations (1) Renal insufficiency SNOMED Code(s): 647428372 Code(s): N28.9 - DISORDER OF KIDNEY AND URETER, UNSPECIFIED Status: Acute Current Visit: Yes (2) COPD exacerbation SNOMED Code(s): 610199791 Code(s): J44.1 - CHRONIC OBSTRUCTIVE PULMONARY DISEASE W (ACUTE) EXACERBATION Status: Acute Current Visit: Yes (3) Hypoxia SNOMED Code(s): 192193747 Code(s): R09.02 - HYPOXEMIA Status: Acute Current Visit: Yes (4) Mycoplasma pneumonia SNOMED Code(s): 18948539 Code(s): J15.7 - PNEUMONIA DUE TO MYCOPLASMA PNEUMONIAE Status: Acute Priority: High Current Visit: Yes Qualifiers: Laterality: unspecified laterality Lung location: unspecified part of lung Qualified Code(s): J15.7 - Pneumonia due to Mycoplasma pneumoniae (5) HTN (hypertension) SNOMED Code(s): 59646140 Code(s): I10 - ESSENTIAL (PRIMARY) HYPERTENSION Status: Chronic Priority : Low Current Visit: No Qualifiers: Hypertension type: unspecified Qualified Code(s): I10 - Essential (primary ) hypertension (6) Arthritis SNOMED Code(s): 2952052 Code(s): M19.90 - UNSPECIFIED OSTEOARTHRITIS, UNSPECIFIED SITE Status: Chronic Priority: Medium Current Visit: Yes (7) Other specified depressive episodes SNOMED Code(s): 10609679 Code(s): F32.89 - OTHER SPECIFIED DEPRESSIVE EPISODES Status: Chronic Priority: Low Current Visit: No (8) Anxiety SNOMED Code(s): 52007300 Code(s): F41.9 - ANXIETY DISORDER, UNSPECIFIED Status: Chronic Priority: Medium Current Visit: No - Problem List Review Problem List Initiated/Reviewed/Updated: Yes - My Orders Last 24 Hours: My Active Orders 12/27/17 11:14 Isolation [COMM] Routine 12/27/17 13:59 RT Acapella [RESPCARE] Routine 12/27/17 14:01 RT Incentive Spirometry [RC] ASDIRECTED 12/27/17 21:00 guaiFENesin [Mucinex] 1,200 mg PO BID 12/29/17 08:00 CXR [Chest 2V] [CR] Routine - Plan Plan:: Assessment/Plan: Acute: COPD Exacerbation - End Stage - IV Steroids--> decrease, Bronchodilators, IV Mg, Supplement O2 as needed - IV Morphine PRN for severe Dyspnea --> will stop for now as she has been somewhat sedated - Levaquin started in ED - stop - Has not seen Dr. Granger - Follow-up appt. scheduled in early January - Has been referred to [facility] but never got around to it; referral - Sputum culture - pending - Viral respiratory panel, strep pneumo - all negative Positive Mycoplasma Pneumonia - Azithromycin - Duonebs/RT/IS/Acapella - Mucinex - CXR shows nothing acute - Repeat CXR in 24-48 hrs - Droplet precautions Hyponatremia, improving - Sodium 132--> 135 - IV NS for now --> completed 1L - Encourage oral hydration - Monitor Renal insufficiency, improving - Acute - Baseline appears to be WNL - eGFR 47-->52, Creatinine 1.2-->1.1, Bun 18-->22 - IV fluids - completed - Use caution with nephrotoxic drugs - Encourage oral hydration - Monitor need for more IV fluids Respiratory Failure - BIPAP 10/5 - Alternating with NC O2 - Seems to be benefiting from use Chronic: Impaired Vision HTN Urinary Incontinence OA Osteoporosis Back Pain Migraines Depression Anxiety Plan: She is clinically stable, slowly improving, continue current treatment plan Resume Home Meds Routine AM Labs RT/OT/PT consult SW/CM for d/c planning PE/DVT prophylaxis: SCDs Code Status: Full code
[2017-12-28] MEDS: methylPREDNISolone Sodium Succinate 40 MG/1 ML SDV IVPUSH SCH (15:51)
[2017-12-28] MEDS: Potassium Chloride 20 MEQ Tab.ER PO SCH ×2 (17:52→21:24)
[2017-12-28] MEDS: Mirtazapine 30 MG Tab PO SCH (21:24)
[2017-12-28] MEDS: QUEtiapine 25 MG Tab PO SCH (21:25)
[2017-12-29] MEDS ORDERED: LORazepam 2 MG/ML SDV IVPUSH ONE (03:20)
[2017-12-29] MEDS: Acetaminophen/HYDROcodone 325-10 MG Tab PO PRN ×3 (03:29→16:40)
[2017-12-29] MEDS: methylPREDNISolone Sodium Succinate 40 MG/1 ML SDV IVPUSH SCH ×3 (03:35→20:55)
[2017-12-29] MEDS: Albuterol/Ipratropium 3.0-0.5 MG/3 ML Neb Soln INH PRN (08:20)
[2017-12-29] MEDS: SYMBICORT INH SCH ×2 (08:23→20:44)
[2017-12-29] MEDS ORDERED: Magnesium Oxide 400 MG Tab PO ONE ×2 (09:00→13:00)
[2017-12-29] MEDS: guaiFENesin 600 MG Tab.ER PO SCH ×2 (09:11→20:50)
[2017-12-29] MEDS: ALPRAZolam 1 MG Tab PO SCH ×3 (09:12→20:50)
[2017-12-29] MEDS: Azithromycin 250 MG Tab PO SCH (09:12)
[2017-12-29] MEDS: Hydrochlorothiazide/Triamterene 25-37.5 MG Cap PO SCH (09:12)
--- NOTE | 2017-12-29 09:32 | CR ---
Chest: Two views of the chest are obtained. Comparison: Prior chest x-ray of 12/26/17. Heart size and mediastinum are normal. Stable interstitial fibrosis is seen. Lungs are hyperinflated compatible with emphysematous change. No acute parenchymal densities are seen. Right shoulder surgery is noted. Bony structures are osteopenic. Impression: 1. Emphysematous change. Other findings as noted above. No acute intrathoracic process is suspected. Diagnostic code #3
[2017-12-29] MEDS ORDERED: Metoprolol Tartrate 5 MG/5 ML SDV IVPUSH PRN ×2 (12:02→13:24)
--- NOTE | 2017-12-29 17:44 | PCM.PN ---
- General Info Date of Service: 12/29/17 Admission Dx/Problem (Free Text): COPD Exacerbation Subjective Update: In to see Mary. She is very anxious and upset. She is complaining of severe right sided back pain that radiates into her groin. She does have a history of kidney stones but states this feels different than that did. Will send for abdominal x-ray. She reports her breathing is getting much better. Nursing reports patient had her home Xanax stuffed in a percussion instrument tuner the room. Some pills were also found in bed with her. I had a leona discussion with her about this as it can obviously have negative consequences. She has been sleeping on and off throughout the day. She admitted to taking one extra pill but states that was it. Dr. Mayo discussed hospice care as she is end stage COPD and has severe pain and anxiety. She does not feel she is ready for this. Otherwise her labs are improved, CRP is down, and her breathing is much better. She is requesting a CPAP for home as it has improved her breathing here. Functional Status: Reports: Tolerating Diet, Ambulating, Urinating, New Symptoms (Back/Groin pain) - Review of Systems General: Reports: Weakness, Malaise, Appetite. Denies: Fever, Fatigue HEENT: Reports: No Symptoms Pulmonary: Reports: Shortness of Breath, Pleuritic Chest Pain, Cough, Sputum ( improving ), Wheezing Cardiovascular: Reports: Chest Pain, Dyspnea on Exertion. Denies: Palpitations , Lightheadedness Gastrointestinal: Reports: Abdominal Pain (back radiating into abdomen ). Denies: Constipation, Diarrhea, Nausea, Vomiting Genitourinary: Reports: No Symptoms Musculoskeletal: Reports: No Symptoms Skin: Reports: No Symptoms Neurological: Reports: No Symptoms Psychiatric: Reports: No Symptoms - Patient Data Vitals - Most Recent: Last Vital Signs Temp 99.0 F 12/29/17 15:38 Pulse 104 H 12/29/17 15:38 Resp 20 12/29/17 15:38 BP 120/83 12/29/17 15:38 Pulse Ox 97 12/29/17 15:38 Weight - Most Recent: 119 lb 8 oz I&O - Last 24 Hours: Intake & Output 12/29/17 12/29/17 12/29/17 06:59 14:59 22:59 Intake Total 200 450 325 Balance 200 450 325 Lab Results Last 24 Hours: Laboratory Results - last 24 hr 12/29/17 12/29/17 Range/Units 06:05 06:05 WBC 14.88 H (3.98-10.04) K/mm3 RBC 4.07 (3.98-5.22) M/mm3 Hgb 11.0 L (11.2-15.7) gm/L Hct 35.0 (34.1-44.9) % MCV 86.0 (79.4-94.8) fl MCH 27.0 (25.6-32.2) pg MCHC 31.4 L (32.2-35.5) g/dl RDW Std Deviation 43.0 (36.4-46.3) fL Plt Count 351 (182-369) K/mm3 MPV 10.1 (9.4-12.3) fl Neut % (Auto) 79.8 H (34.0-71.1) % Lymph % (Auto) 5.6 L (19.3-51.7) % Mcleod % (Auto) 8.7 (4.7-12.5) % Eos % (Auto) 0 L (0.7-5.8) Baso % (Auto) 0.5 (0.1-1.2) % Neut # (Auto) 11.86 H (1.56-6.13) K/mm3 Lymph # (Auto) 0.83 L (1.18-3.74) K/mm3 Mcleod # (Auto) 1.30 H (0.24-0.36) K/mm3 Eos # (Auto) 0.00 L (0.04-0.36) K/mm3 Baso # (Auto) 0.08 (0.01-0.08) K/mm3 Manual Slide Review Abnormal smear Sodium 139 (136-145) mEq/L Potassium 5.2 H (3.5-5.1) mEq/L Chloride 101 (98-107) mEq/L Carbon Dioxide 36 H (21-32) mEq/L Anion Gap 7.2 (5-15) BUN 26 H (7-18) mg/dL Creatinine 1.0 (0.55-1.02) mg/dL Est Cr Clr Drug Dosing 55.67 mL/min Estimated GFR (MDRD) 58 (>60) mL/min BUN/Creatinine Ratio 26.0 H (14-18) Glucose 138 H (74-106) mg/dL Calcium 9.5 (8.5-10.1) mg/dL Magnesium 1.8 (1.8-2.4) mg/dl C-Reactive Protein 7.2 H* (<1.0) mg/dL John Results Last 24 Hours: Microbiology 12/27/17 02:49 Gram Stain - Final Sputum - Expectorated Sputum Culture - Preliminary Gram Negative Coccobacilli Med Orders - Current: Current Medications Acetaminophen (Tylenol) 650 mg PO Q4H PRN PRN Reason: Pain (Mild 1-3)/fever Hydrocodone Bitart/Acetaminophen ([place] 325-10 Mg) 1 tab PO Q6H PRN PRN Reason: Pain Last Admin: 12/29/17 16:40 Dose: 1 tab Albuterol (Proventil Hfa) 0 gm INH Q4HR PRN PRN Reason: Shortness of Breath Albuterol/Ipratropium (Duoneb 3.0-0.5 Mg/3 Ml) 3 ml INH Q4HR PRN PRN Reason: Shortness of Breath Last Admin: 12/29/17 08:20 Dose: 3 ml Alprazolam (Xanax) 1 mg PO TID [facility] Last Admin: 12/29/17 14:19 Dose: 1 mg Azithromycin (Zithromax) 250 mg PO DAILY [facility] Stop: 12/30/17 12:00 Last Admin: 12/29/17 09:12 Dose: 250 mg Bisacodyl (Dulcolax) 5 mg PO DAILY PRN PRN Reason: Constipation Docusate Sodium (Colace) 100 mg PO BID PRN PRN Reason: Constipation Guaifenesin (Mucinex) 1,200 mg PO BID [facility] Last Admin: 12/29/17 09:11 Dose: 1,200 mg Guaifenesin/Phenylephrine HCl (Robitussin Dm) 5 ml PO Q4H PRN PRN Reason: Cough Hydromorphone HCl (Dilaudid) 0.25 mg IVPUSH Q2H PRN PRN Reason: Pain (severe 7-10) Promethazine HCl 12.5 mg/ (Sodium Chloride) 50.5 mls @ 100 mls/hr IV Q6H PRN PRN Reason: Nausea/Vomiting Magnesium Sulfate (Pharmacy To Dose - Magnesium Replacement) 0 dose .XX ASDIRECTED PRN PRN Reason: RX TO WATCH MAG LEVESL Methylprednisolone Sodium Succinate (Solu-Medrol) 80 mg IVPUSH Q12H SHAUN Stop: 12/30/17 08:01 Metoprolol Tartrate (Lopressor) 5 mg IVPUSH ONETIME PRN PRN Reason: Tachycardia Last Admin: 12/29/17 12:14 Dose: 5 mg Metoprolol Tartrate (Lopressor) 5 mg IVPUSH ONETIME PRN PRN Reason: Tachycardia Last Admin: 12/29/17 14:19 Dose: 5 mg Mirtazapine (Remeron) 30 mg PO BEDTIME SHAUN Last Admin: 12/28/17 21:24 Dose: 30 mg Ondansetron HCl (Zofran) 4 mg IV Q6H PRN PRN Reason: Nausea/Vomiting Symbicort Inhaler (160-4.5 Mcg) 0 each INH BID [facility] Last Admin: 12/28/17 20:00 Dose: 2 each Polyethylene Glycol (Miralax) 17 gm PO DAILY PRN PRN Reason: Constipation Potassium Chloride (Pharmacy To Dose - Potassium Replacement) 0 dose .XX ASDIRECTED PRN PRN Reason: RX TO WATCH K LEVELS Prednisone (Prednisone) 40 mg PO DAILY [facility] Stop: 01/01/18 09:01 Prednisone (Prednisone) 20 mg PO DAILY [facility] Stop: 01/03/18 09:01 Quetiapine Fumarate (Seroquel) 50 mg PO BEDTIME [facility] Last Admin: 12/28/17 21:25 Dose: 50 mg Senna/Docusate Sodium (Senna Plus) 1 tab PO BID PRN PRN Reason: Constipation Sodium Chloride (Saline Flush) 10 ml FLUSH ASDIRECTED PRN PRN Reason: Keep Vein Open Last Admin: 12/26/17 21:49 Dose: 10 ml Triamterene/HCTZ (Dyazide 25-37.5 Mg) 1 each PO DAILY [facility] Last Admin: 12/29/17 09:12 Dose: 1 each Discontinued Medications Albuterol/Ipratropium (Duoneb 3.0-0.5 Mg/3 Ml) 3 ml NEB ONETIME ONE Stop: 12/26/17 21:36 Last Admin: 12/26/17 21:50 Dose: 3 ml Fentanyl (Sublimaze) 100 mcg IVPUSH ONETIME ONE Stop: 12/26/17 22:27 Last Admin: 12/26/17 22:39 Dose: 100 mcg Levofloxacin/Dextrose 750 mg/ (Premix) 150 mls @ 100 mls/hr IV ONETIME ONE Stop: 12/26/17 23:05 Last Admin: 12/26/17 22:24 Dose: 100 mls/hr Magnesium Sulfate 2 gm/ Premix 50 mls @ 25 mls/hr IV ONETIME ONE Stop: 12/26/17 23:34 Last Admin: 12/26/17 21:47 Dose: 25 mls/hr Azithromycin 500 mg/ Sodium (Chloride) 250 mls @ 250 mls/hr IV ONETIME ONE Stop: 12/27/17 02:59 Last Admin: 12/27/17 02:19 Dose: 250 mls/hr Magnesium Sulfate/Dextrose 1 (gm/ Premix) 100 mls @ 100 mls/hr IV ONETIME ONE Stop: 12/27/17 02:59 Last Admin: 12/27/17 02:21 Dose: 100 mls/hr Sodium Chloride (Normal Saline) 1,000 mls @ 100 mls/hr IV ASDIRECTED [facility] Stop: 12/27/17 21:29 Last Admin: 12/27/17 12:34 Dose: 100 mls/hr Lorazepam (Ativan) 1 mg IVPUSH ONETIME ONE Stop: 12/26/17 21:38 Last Admin: 12/26/17 21:44 Dose: 1 mg Lorazepam (Ativan) 0.5 mg IV Q6H PRN PRN Reason: Anxiety Last Admin: 12/27/17 09:59 Dose: 0.5 mg Lorazepam (Ativan) 1 mg PO TID [facility] Last Admin: 12/27/17 18:56 Dose: Not Given Lorazepam (Ativan) 1 mg PO TID PRN PRN Reason: Anxiety Last Admin: 12/28/17 03:47 Dose: 1 mg Lorazepam (Ativan) 0.25 mg IVPUSH ONETIME ONE Stop: 12/29/17 03:21 Last Admin: 12/29/17 03:30 Dose: 0.25 mg Magnesium Oxide (Magnesium Oxide) 400 mg PO ONETIME ONE Stop: 12/29/17 09:01 Last Admin: 12/29/17 09:12 Dose: 400 mg Magnesium Oxide (Magnesium Oxide) 400 mg PO ONETIME ONE Stop: 12/29/17 13:01 Last Admin: 12/29/17 14:14 Dose: 400 mg Methylprednisolone Sodium Succinate (Solu-Medrol) 125 mg IVPUSH ONETIME ONE Stop: 12/26/17 21:37 Last Admin: 12/26/17 21:46 Dose: 125 mg Methylprednisolone Sodium Succinate (Solu-Medrol) 125 mg IVPUSH Q6H [facility] Last Admin: 12/28/17 08:21 Dose: 125 mg Methylprednisolone Sodium Succinate (Solu-Medrol) 80 mg IVPUSH Q8H [facility] Last Admin: 12/29/17 09:11 Dose: 80 mg Mometasone Furoate/Formoterol Fumar (Dulera 100-5 Mcg) 2 puff IH BID [facility] Last Admin: 12/27/17 08:45 Dose: Not Given Morphine Sulfate (Morphine) 1 mg IVPUSH Q6H PRN PRN Reason: Chest Pain Last Admin: 12/27/17 08:39 Dose: 1 mg Morphine Sulfate (Morphine) 1 mg IVPUSH Q6H PRN PRN Reason: Chest Pain Last Admin: 12/28/17 09:02 Dose: 1 mg Potassium Chloride (Klor-Con M20) 40 meq PO Q4H [facility] Stop: 12/28/17 21:01 Last Admin: 12/28/17 21:24 Dose: 40 meq - Exam Quality Assessment: Supplemental Oxygen, DVT Prophylaxis General: Alert, Oriented, Cooperative, Mild Distress (upset/anxious ) HEENT: Pupils Equal, Pupils Reactive, EOMI, Mucous Membr. Moist/[place] Neck: Supple, Trachea Midline Lungs: Normal Respiratory Effort, Decreased Breath Sounds, Wheezing Cardiovascular: Regular Rate, Regular Rhythm GI/Abdominal Exam: Normal Bowel Sounds, Soft, Non-Tender, No Organomegaly, No Distention, No Abnormal Bruit, No Mass, Pelvis Stable Back Exam: Normal Inspection, Full Range of Motion, Paraspinal Tenderness ( right side ). No: CVA Tenderness (L), CVA Tenderness (R), Muscle Spasm, Vertebral Tenderness Extremities: Normal Inspection, Normal Range of Motion, Non-Tender, No Pedal Edema, Normal Capillary Refill Peripheral Pulses: 2+: Radial (L), Radial (R), Posterior Tibial (L), Posterior Tibial (R), Dorsalis Pedis (L), Dorsalis Pedis (R) Skin: Warm, Dry, Intact Neurological: No New Focal Deficit Psy/Mental Status: Alert, Anxious - Problem List & Annotations (1) Renal insufficiency SNOMED Code(s): 842692170 Code(s): N28.9 - DISORDER OF KIDNEY AND URETER, UNSPECIFIED Status: Acute Current Visit: Yes (2) COPD exacerbation SNOMED Code(s): 425531410 Code(s): J44.1 - CHRONIC OBSTRUCTIVE PULMONARY DISEASE W (ACUTE) EXACERBATION Status: Acute Current Visit: Yes (3) Hypoxia SNOMED Code(s): 674043746 Code(s): R09.02 - HYPOXEMIA Status: Acute Current Visit: Yes (4) Mycoplasma pneumonia SNOMED Code(s): 28460708 Code(s): J15.7 - PNEUMONIA DUE TO MYCOPLASMA PNEUMONIAE Status: Acute Priority: High Current Visit: Yes Qualifiers: Laterality: unspecified laterality Lung location: unspecified part of lung Qualified Code(s): J15.7 - Pneumonia due to Mycoplasma pneumoniae (5) HTN (hypertension) SNOMED Code(s): 62686488 Code(s): I10 - ESSENTIAL (PRIMARY) HYPERTENSION Status: Chronic Priority : Low Current Visit: No Qualifiers: Hypertension type: unspecified Qualified Code(s): I10 - Essential (primary ) hypertension (6) Arthritis SNOMED Code(s): 7456487 Code(s): M19.90 - UNSPECIFIED OSTEOARTHRITIS, UNSPECIFIED SITE Status: Chronic Priority: Medium Current Visit: Yes (7) Other specified depressive episodes SNOMED Code(s): 59895859 Code(s): F32.89 - OTHER SPECIFIED DEPRESSIVE EPISODES Status: Chronic Priority: Low Current Visit: No (8) Anxiety SNOMED Code(s): 90591809 Code(s): F41.9 - ANXIETY DISORDER, UNSPECIFIED Status: Chronic Priority: Medium Current Visit: No - Problem List Review Problem List Initiated/Reviewed/Updated: Yes - My Orders Last 24 Hours: My Active Orders 12/28/17 17:00 Magnesium Rep Pharmacy to Dose [Pharmacy to Dose - Magnesium Replacement] 0 dose .XX ASDIRECTED PRN Potassium Rep Pharmacy to Dose [Pharmacy to Dose - Potassium Replacement] 0 dose .XX ASDIRECTED PRN 12/29/17 12:02 Metoprolol Tartrate [Lopressor] 5 mg IVPUSH ONETIME PRN 12/29/17 13:24 Metoprolol Tartrate [Lopressor] 5 mg IVPUSH ONETIME PRN 12/30/17 05:11 CBC WITH AUTO DIFF [HEME] AM 12/31/17 05:11 CBC WITH AUTO DIFF [HEME] AM 01/01/18 05:11 CBC WITH AUTO DIFF [HEME] AM - Plan Plan:: Assessment/Plan: Acute: COPD Exacerbation - End Stage - IV Steroids--> decrease, Bronchodilators, IV Mg, Supplement O2 as needed - IV Morphine PRN for severe Dyspnea --> will stop for now as she has been somewhat sedated - Levaquin started in ED - stop - Has not seen Dr. Granger - Follow-up appt. scheduled in early January - Has been referred to [facility] but never got around to it; referral - Sputum culture - few gram negative coccobacilli, probable Haemophilus - azithromycin should cover this - Viral respiratory panel, strep pneumo - all negative Positive Mycoplasma Pneumonia - Azithromycin - Duonebs/RT/IS/Acapella - Mucinex - CXR shows nothing acute - Repeat CXR 12/29/17 - nothing acute - Droplet precautions Renal insufficiency, improving to resolved - Acute - Baseline appears to be WNL - eGFR 47-->52-->58, Creatinine 1.2-->1.1-->1.0, Bun 18-->22-->26 - IV fluids - completed - Use caution with nephrotoxic drugs - Encourage oral hydration - Monitor need for more IV fluids Respiratory Failure, improved - BIPAP 10/5 - Alternating with NC O2 - Seems to be benefiting from use Resolved: Hyponatremia, improving - Sodium 132--> 135-->139 - IV NS for now --> completed 1L - Encourage oral hydration - Monitor Chronic: Impaired Vision HTN Urinary Incontinence OA Osteoporosis Back Pain Migraines Depression Anxiety Plan: She is clinically stable, slowly improving, continue current treatment plan Resume Home Meds Routine AM Labs RT/OT/PT consult SW/CM for d/c planning PE/DVT prophylaxis: SCDs Code Status: Full code
--- NOTE | 2017-12-29 18:43 | CR ---
Abdomen: Supine portable view of the abdomen was obtained. Comparison: No prior abdominal x-ray, previous abdominal and pelvic CT exam dated 08/07/09. Scattered gas and stool is noted within colon. Small bowel gas is seen which shows no dilatation and is felt to be normal. Bony structures are within normal limits for the patient's age. Single calcification is noted within the right pelvis compatible with phlebolith. No soft tissue abnormality is appreciated. Impression: 1. Incidental findings. Nothing acute is seen. Diagnostic code #2
[2017-12-29] MEDS: Mirtazapine 30 MG Tab PO SCH (20:49)
[2017-12-29] MEDS: QUEtiapine 25 MG Tab PO SCH (20:50)
[2017-12-30] MEDS: Acetaminophen/HYDROcodone 325-10 MG Tab PO PRN ×4 (02:37→20:16)
--- NOTE | 2017-12-30 07:40 | PCM.PN ---
<Hortensia Muller M - Last Filed: 12/30/17 09:32> - General Info Date of Service: 12/30/17 Admission Dx/Problem (Free Text): COPD Exacerbation Breathing better today. Reports sputum was greenish in color now is clearing up to white. Still coughing but improved. Slept well. Good appetite. Voiding and had BM this morning without difficulty. Treatment for mycoplasma. [place] better this morning with wearing BIPAP overnight, although CO2 is increased at 41 this morning. Reviewed with patient this morning likely 1-2 more days in hospital then DC home Functional Status: Reports: Pain Controlled, Tolerating Diet, Ambulating ( minimally), Urinating, Incentive Spirometry - Review of Systems General: Reports: Weakness, Fatigue HEENT: Reports: No Symptoms Pulmonary: Reports: Shortness of Breath, Cough Cardiovascular: Reports: No Symptoms, Dyspnea on Exertion (chronic). Denies: Chest Pain, Palpitations Gastrointestinal: Reports: No Symptoms Genitourinary: Reports: No Symptoms Neurological: Reports: No Symptoms Psychiatric: Reports: No Symptoms - Patient Data Vitals - Most Recent: Last Vital Signs Temp 97.7 F 12/30/17 02:48 Pulse 99 12/30/17 02:48 Resp 20 12/29/17 15:38 BP 143/91 H 12/30/17 02:45 Pulse Ox 99 12/30/17 02:48 Weight - Most Recent: 53.705 kg I&O - Last 24 Hours: Intake & Output 12/29/17 12/30/17 12/30/17 22:59 06:59 14:59 Intake Total 325 240 Balance 325 240 Lab Results Last 24 Hours: Laboratory Results - last 24 hr 12/29/17 12/30/17 12/30/17 Range/Units 06:05 05:17 05:17 WBC 15.40 H (3.98-10.04) K/mm3 RBC 4.28 (3.98-5.22) M/mm3 Hgb 11.6 (11.2-15.7) gm/L Hct 37.2 (34.1-44.9) % MCV 86.9 (79.4-94.8) fl MCH 27.1 (25.6-32.2) pg MCHC 31.2 L (32.2-35.5) g/dl RDW Std Deviation 43.3 (36.4-46.3) fL Plt Count 365 (182-369) K/mm3 MPV 9.9 (9.4-12.3) fl Neut % (Auto) Cancelled Lymph % (Auto) Cancelled Love % (Auto) Cancelled Eos % (Auto) Cancelled Baso % (Auto) Cancelled Neut # (Auto) Cancelled Lymph # (Auto) Cancelled Love # (Auto) Cancelled Eos # (Auto) Cancelled Baso # (Auto) Cancelled Neutrophils % (Manual) 54 (40-60) % Band Neutrophils % 15 H (0-10) % Lymphocytes % (Manual) 15 L (20-40) % Atypical Lymphs % 0 % Monocytes % (Manual) 7 (2-10) % Eosinophils % (Manual) 0 L (0.7-5.8) % Basophils % (Manual) 0 L (0.1-1.2) Metamyelocytes % 5 Myelocytes % 4 Differential Comment See note Manual Slide Review Abnormal smear Cancelled Toxic Granulation 2+ moderate Platelet Estimate Adequate RBC Morph Comment Normal Sodium 141 (136-145) mEq/L Potassium 4.4 (3.5-5.1) mEq/L Chloride 99 (98-107) mEq/L Carbon Dioxide 41 H* (21-32) mEq/L Anion Gap 5.4 (5-15) BUN 24 H (7-18) mg/dL Creatinine 0.9 (0.55-1.02) mg/dL Est Cr Clr Drug Dosing 61.29 mL/min Estimated GFR (MDRD) > 60 (>60) mL/min BUN/Creatinine Ratio 26.7 H (14-18) Glucose 152 H (74-106) mg/dL Calcium 9.5 (8.5-10.1) mg/dL Magnesium 1.7 L (1.8-2.4) mg/dl C-Reactive Protein 3.4 H* (<1.0) mg/dL John Results Last 24 Hours: Microbiology 12/27/17 02:49 Gram Stain - Final Sputum - Expectorated Sputum Culture - Preliminary Gram Negative Coccobacilli Med Orders - Current: Current Medications Acetaminophen (Tylenol) 650 mg PO Q4H PRN PRN Reason: Pain (Mild 1-3)/fever Hydrocodone Bitart/Acetaminophen ([place] 325-10 Mg) 1 tab PO Q6H PRN PRN Reason: Pain Last Admin: 12/30/17 02:37 Dose: 1 tab Albuterol (Proventil Hfa) 0 gm INH Q4HR PRN PRN Reason: Shortness of Breath Albuterol/Ipratropium (Duoneb 3.0-0.5 Mg/3 Ml) 3 ml INH Q4HR PRN PRN Reason: Shortness of Breath Last Admin: 12/29/17 08:20 Dose: 3 ml Alprazolam (Xanax) 1 mg PO TID [facility] Last Admin: 12/29/17 20:50 Dose: 1 mg Azithromycin (Zithromax) 250 mg PO DAILY [facility] Stop: 12/30/17 12:00 Last Admin: 12/29/17 09:12 Dose: 250 mg Bisacodyl (Dulcolax) 5 mg PO DAILY PRN PRN Reason: Constipation Docusate Sodium (Colace) 100 mg PO BID PRN PRN Reason: Constipation Guaifenesin (Mucinex) 1,200 mg PO BID [facility] Last Admin: 12/29/17 20:50 Dose: 1,200 mg Guaifenesin/Phenylephrine HCl (Robitussin Dm) 5 ml PO Q4H PRN PRN Reason: Cough Hydromorphone HCl (Dilaudid) 0.25 mg IVPUSH Q2H PRN PRN Reason: Pain (severe 7-10) Promethazine HCl 12.5 mg/ (Sodium Chloride) 50.5 mls @ 100 mls/hr IV Q6H PRN PRN Reason: Nausea/Vomiting Magnesium Sulfate (Pharmacy To Dose - Magnesium Replacement) 0 dose .XX ASDIRECTED PRN PRN Reason: RX TO WATCH MAG LEVESL Methylprednisolone Sodium Succinate (Solu-Medrol) 80 mg IVPUSH Q12H [facility] Stop: 12/30/17 08:01 Last Admin: 12/29/17 20:55 Dose: 80 mg Metoprolol Tartrate (Lopressor) 5 mg IVPUSH ONETIME PRN PRN Reason: Tachycardia Last Admin: 12/29/17 12:14 Dose: 5 mg Metoprolol Tartrate (Lopressor) 5 mg IVPUSH ONETIME PRN PRN Reason: Tachycardia Last Admin: 12/29/17 14:19 Dose: 5 mg Mirtazapine (Remeron) 30 mg PO BEDTIME [facility] Last Admin: 12/29/17 20:49 Dose: 30 mg Ondansetron HCl (Zofran) 4 mg IV Q6H PRN PRN Reason: Nausea/Vomiting Symbicort Inhaler (160-4.5 Mcg) 0 each INH BID [facility] Last Admin: 12/29/17 20:44 Dose: 2 each Polyethylene Glycol (Miralax) 17 gm PO DAILY PRN PRN Reason: Constipation Potassium Chloride (Pharmacy To Dose - Potassium Replacement) 0 dose .XX ASDIRECTED PRN PRN Reason: RX TO WATCH K LEVELS Prednisone (Prednisone) 40 mg PO DAILY [facility] Stop: 01/01/18 09:01 Prednisone (Prednisone) 20 mg PO DAILY [facility] Stop: 01/03/18 09:01 Quetiapine Fumarate (Seroquel) 50 mg PO BEDTIME [facility] Last Admin: 12/29/17 20:50 Dose: 50 mg Senna/Docusate Sodium (Senna Plus) 1 tab PO BID PRN PRN Reason: Constipation Sodium Chloride (Saline Flush) 10 ml FLUSH ASDIRECTED PRN PRN Reason: Keep Vein Open Last Admin: 12/26/17 21:49 Dose: 10 ml Triamterene/HCTZ (Dyazide 25-37.5 Mg) 1 each PO DAILY [facility] Last Admin: 12/29/17 09:12 Dose: 1 each Discontinued Medications Albuterol/Ipratropium (Duoneb 3.0-0.5 Mg/3 Ml) 3 ml NEB ONETIME ONE Stop: 12/26/17 21:36 Last Admin: 12/26/17 21:50 Dose: 3 ml Fentanyl (Sublimaze) 100 mcg IVPUSH ONETIME ONE Stop: 12/26/17 22:27 Last Admin: 12/26/17 22:39 Dose: 100 mcg Levofloxacin/Dextrose 750 mg/ (Premix) 150 mls @ 100 mls/hr IV ONETIME ONE Stop: 12/26/17 23:05 Last Admin: 12/26/17 22:24 Dose: 100 mls/hr Magnesium Sulfate 2 gm/ Premix 50 mls @ 25 mls/hr IV ONETIME ONE Stop: 12/26/17 23:34 Last Admin: 12/26/17 21:47 Dose: 25 mls/hr Azithromycin 500 mg/ Sodium (Chloride) 250 mls @ 250 mls/hr IV ONETIME ONE Stop: 12/27/17 02:59 Last Admin: 12/27/17 02:19 Dose: 250 mls/hr Magnesium Sulfate/Dextrose 1 (gm/ Premix) 100 mls @ 100 mls/hr IV ONETIME ONE Stop: 12/27/17 02:59 Last Admin: 12/27/17 02:21 Dose: 100 mls/hr Sodium Chloride (Normal Saline) 1,000 mls @ 100 mls/hr IV ASDIRECTED [facility] Stop: 12/27/17 21:29 Last Admin: 12/27/17 12:34 Dose: 100 mls/hr Lorazepam (Ativan) 1 mg IVPUSH ONETIME ONE Stop: 12/26/17 21:38 Last Admin: 12/26/17 21:44 Dose: 1 mg Lorazepam (Ativan) 0.5 mg IV Q6H PRN PRN Reason: Anxiety Last Admin: 12/27/17 09:59 Dose: 0.5 mg Lorazepam (Ativan) 1 mg PO TID [facility] Last Admin: 12/27/17 18:56 Dose: Not Given Lorazepam (Ativan) 1 mg PO TID PRN PRN Reason: Anxiety Last Admin: 12/28/17 03:47 Dose: 1 mg Lorazepam (Ativan) 0.25 mg IVPUSH ONETIME ONE Stop: 12/29/17 03:21 Last Admin: 12/29/17 03:30 Dose: 0.25 mg Magnesium Oxide (Magnesium Oxide) 400 mg PO ONETIME ONE Stop: 12/29/17 09:01 Last Admin: 12/29/17 09:12 Dose: 400 mg Magnesium Oxide (Magnesium Oxide) 400 mg PO ONETIME ONE Stop: 12/29/17 13:01 Last Admin: 12/29/17 14:14 Dose: 400 mg Methylprednisolone Sodium Succinate (Solu-Medrol) 125 mg IVPUSH ONETIME ONE Stop: 12/26/17 21:37 Last Admin: 12/26/17 21:46 Dose: 125 mg Methylprednisolone Sodium Succinate (Solu-Medrol) 125 mg IVPUSH Q6H [facility] Last Admin: 12/28/17 08:21 Dose: 125 mg Methylprednisolone Sodium Succinate (Solu-Medrol) 80 mg IVPUSH Q8H [facility] Last Admin: 12/29/17 09:11 Dose: 80 mg Mometasone Furoate/Formoterol Fumar (Dulera 100-5 Mcg) 2 puff IH BID [facility] Last Admin: 12/27/17 08:45 Dose: Not Given Morphine Sulfate (Morphine) 1 mg IVPUSH Q6H PRN PRN Reason: Chest Pain Last Admin: 12/27/17 08:39 Dose: 1 mg Morphine Sulfate (Morphine) 1 mg IVPUSH Q6H PRN PRN Reason: Chest Pain Last Admin: 12/28/17 09:02 Dose: 1 mg Potassium Chloride (Klor-Con M20) 40 meq PO Q4H [facility] Stop: 12/28/17 21:01 Last Admin: 12/28/17 21:24 Dose: 40 meq - Exam Quality Assessment: Supplemental Oxygen, DVT Prophylaxis General: Alert, Oriented, Cooperative, No Acute Distress HEENT: Pupils Equal, EOMI, Mucous Membr. Moist/[place] Ii Lungs: Normal Respiratory Effort, Decreased Breath Sounds, Wheezing GI/Abdominal Exam: Normal Bowel Sounds, Soft, Non-Tender (Female) Exam: Deferred Extremities: No Pedal Edema, Normal Capillary Refill Neurological: No New Focal Deficit Psy/Mental Status: Alert, Normal Affect, Normal Mood - Problem List & Annotations (1) Mycoplasma pneumonia SNOMED Code(s): 92784544 Code(s): J15.7 - PNEUMONIA DUE TO MYCOPLASMA PNEUMONIAE Status: Acute Priority: High Current Visit: Yes QualifierTitle: Laterality: unspecified laterality Lung location: unspecified part of lung Qualified Code(s): J15.7 - Pneumonia due to Mycoplasma pneumoniae (2) COPD exacerbation SNOMED Code(s): 865041920697075 Code(s): J44.1 - CHRONIC OBSTRUCTIVE PULMONARY DISEASE W (ACUTE) EXACERBATION Status: Acute Priority: High Current Visit: Yes (3) Hypoxia SNOMED Code(s): 408711168 Code(s): R09.02 - HYPOXEMIA Status: Chronic Priority: High Current Visit: Yes (4) Hypomagnesemia SNOMED Code(s): 905510709 Code(s): E83.42 - HYPOMAGNESEMIA Status: Acute Priority: High Current Visit: Yes (5) Carbon dioxide retention SNOMED Code(s): 85225597 Code(s): E87.2 - ACIDOSIS Status: Chronic Priority: Medium Current Visit: Yes (6) Chest wall pain SNOMED Code(s): 761865584 Code(s): R07.89 - OTHER CHEST PAIN Status: Acute Priority: Medium Current Visit: Yes (7) Severe anxiety SNOMED Code(s): 70881764 Code(s): F41.9 - ANXIETY DISORDER, UNSPECIFIED Status: Chronic Priority: Medium Current Visit: Yes (8) Renal insufficiency SNOMED Code(s): 592721376 Code(s): N28.9 - DISORDER OF KIDNEY AND URETER, UNSPECIFIED Status: Chronic Priority: Medium Current Visit: Yes (9) HTN (hypertension) SNOMED Code(s): 75423094 Code(s): I10 - ESSENTIAL (PRIMARY) HYPERTENSION Status: Chronic Priority : Low Current Visit: No QualifierTitle: Hypertension type: unspecified Qualified Code(s): I10 - Essential (primary) hypertension - Problem List Review Problem List Initiated/Reviewed/Updated: Yes - Plan Plan:: Assessment/Plan: Acute: COPD Exacerbation - End Stage - IV Steroids--> decrease, Bronchodilators, IV Mg, Supplement O2 as needed - IV Morphine PRN for severe Dyspnea --> will stop for now as she has been somewhat sedated - Levaquin started in ED - stop - Has not seen Dr. Granger - Follow-up appt. scheduled in early January; Has been referred to [facility] but never got around to it; referral , states when she sees Dr. Granger she will get another referral. - Sputum culture - few gram negative coccobacilli, probable Hemophilus - azithromycin should cover - Viral respiratory panel, strep pneumo - all negative Positive Mycoplasma Pneumonia - Azithromycin-- PO now - Duonebs/RT/IS/Acapella - Mucinex - CXR shows nothing acute - Repeat CXR 12/29/17 - nothing acute - Droplet precautions Renal insufficiency, improving to resolved - Acute - Baseline appears to be WNL - eGFR 47-->52-->58, Creatinine 1.2-->1.1-->1.0, Bun 18-->22-->26 - IV fluids - completed; Use caution with nephrotoxic drugs; Encourage oral hydration Respiratory Failure, improved - BIPAP 10/5---felt better with this overnight - Alternating with NC O2 - Seems to be benefiting from use and requests home unit. Hypomagnesemia- mild -mag 1.7 today, K+ WNL -Replete and monitor daily Resolved: Hyponatremia, improving - Sodium 132--> 135-->139 - IV NS for now --> completed 1L - Encourage oral hydration - Monitor Chronic: Impaired Vision HTN- stable Urinary Incontinence OA Osteoporosis Back Pain Migraines Depression/Anxiety Plan: She is clinically stable, slowly improving, continue current treatment plan: LOS will be >96 hours due to slower than expected course of improvement, lab monitoring, electrolyte abnormalities. Resume Home Meds Routine AM Labs RT/OT/PT consult SW/CM for d/c planning PE/DVT prophylaxis: SCDs Code Status: Full code PCP is ELEN Mccarthy <Wendy Mcclure - Last Filed: 12/30/17 11:15> - Patient Data Vitals - Most Recent: Last Vital Signs Temp 37.1 C 12/30/17 07:25 Pulse 110 H 12/30/17 07:25 Resp 24 H 12/30/17 07:25 BP 138/75 12/30/17 07:25 Pulse Ox 99 12/30/17 08:33 I&O - Last 24 Hours: Intake & Output 12/29/17 12/30/17 12/30/17 22:59 06:59 14:59 Intake Total 625 240 60 Balance 625 240 60 Lab Results Last 24 Hours: Laboratory Results - last 24 hr 12/30/17 12/30/17 Range/Units 05:17 05:17 WBC 15.40 H (3.98-10.04) K/mm3 RBC 4.28 (3.98-5.22) M/mm3 Hgb 11.6 (11.2-15.7) gm/L Hct 37.2 (34.1-44.9) % MCV 86.9 (79.4-94.8) fl MCH 27.1 (25.6-32.2) pg MCHC 31.2 L (32.2-35.5) g/dl RDW Std Deviation 43.3 (36.4-46.3) fL Plt Count 365 (182-369) K/mm3 MPV 9.9 (9.4-12.3) fl Neut % (Auto) Cancelled Lymph % (Auto) Cancelled Love % (Auto) Cancelled Eos % (Auto) Cancelled Baso % (Auto) Cancelled Neut # (Auto) Cancelled Lymph # (Auto) Cancelled Love # (Auto) Cancelled Eos # (Auto) Cancelled Baso # (Auto) Cancelled Neutrophils % (Manual) 54 (40-60) % Band Neutrophils % 15 H (0-10) % Lymphocytes % (Manual) 15 L (20-40) % Atypical Lymphs % 0 % Monocytes % (Manual) 7 (2-10) % Eosinophils % (Manual) 0 L (0.7-5.8) % Basophils % (Manual) 0 L (0.1-1.2) Metamyelocytes % 5 Myelocytes % 4 Differential Comment See note Manual Slide Review Cancelled Toxic Granulation 2+ moderate Platelet Estimate Adequate RBC Morph Comment Normal Sodium 141 (136-145) mEq/L Potassium 4.4 (3.5-5.1) mEq/L Chloride 99 (98-107) mEq/L Carbon Dioxide 41 H* (21-32) mEq/L Anion Gap 5.4 (5-15) BUN 24 H (7-18) mg/dL Creatinine 0.9 (0.55-1.02) mg/dL Est Cr Clr Drug Dosing 61.29 mL/min Estimated GFR (MDRD) > 60 (>60) mL/min BUN/Creatinine Ratio 26.7 H (14-18) Glucose 152 H (74-106) mg/dL Calcium 9.5 (8.5-10.1) mg/dL Magnesium 1.7 L (1.8-2.4) mg/dl C-Reactive Protein 3.4 H* (<1.0) mg/dL John Results Last 24 Hours: Microbiology 12/27/17 02:49 Gram Stain - Final Sputum - Expectorated Sputum Culture - Preliminary Gram Negative Coccobacilli Med Orders - Current: Current Medications Acetaminophen (Tylenol) 650 mg PO Q4H PRN PRN Reason: Pain (Mild 1-3)/fever Hydrocodone Bitart/Acetaminophen ([place] 325-10 Mg) 1 tab PO Q6H PRN PRN Reason: Pain Last Admin: 12/30/17 08:43 Dose: 1 tab Albuterol (Proventil Hfa) 0 gm INH Q4HR PRN PRN Reason: Shortness of Breath Albuterol/Ipratropium (Duoneb 3.0-0.5 Mg/3 Ml) 3 ml INH Q4HR PRN PRN Reason: Shortness of Breath Last Admin: 12/29/17 08:20 Dose: 3 ml Alprazolam (Xanax) 1 mg PO TID [facility] Last Admin: 12/30/17 08:45 Dose: 1 mg Azithromycin (Zithromax) 250 mg PO DAILY [facility] Stop: 12/30/17 12:00 Last Admin: 12/30/17 08:45 Dose: 250 mg Bisacodyl (Dulcolax) 5 mg PO DAILY PRN PRN Reason: Constipation Docusate Sodium (Colace) 100 mg PO BID PRN PRN Reason: Constipation Guaifenesin (Mucinex) 1,200 mg PO BID [facility] Last Admin: 12/30/17 08:45 Dose: 1,200 mg Guaifenesin/Phenylephrine HCl (Robitussin Dm) 5 ml PO Q4H PRN PRN Reason: Cough Last Admin: 12/30/17 08:59 Dose: 5 ml Hydromorphone HCl (Dilaudid) 0.25 mg IVPUSH Q2H PRN PRN Reason: Pain (severe 7-10) Magnesium Oxide (Magnesium Oxide) 400 mg PO DAILY [facility] Last Admin: 12/30/17 08:43 Dose: 400 mg Metoprolol Tartrate (Lopressor) 5 mg IVPUSH ONETIME PRN PRN Reason: Tachycardia Last Admin: 12/29/17 12:14 Dose: 5 mg Metoprolol Tartrate (Lopressor) 5 mg IVPUSH ONETIME PRN PRN Reason: Tachycardia Last Admin: 12/29/17 14:19 Dose: 5 mg Mirtazapine (Remeron) 30 mg PO BEDTIME [facility] Last Admin: 12/29/17 20:49 Dose: 30 mg Ondansetron HCl (Zofran) 4 mg IV Q6H PRN PRN Reason: Nausea/Vomiting Symbicort Inhaler (160-4.5 Mcg) 0 each INH BID [facility] Last Admin: 12/30/17 08:32 Dose: 2 each Polyethylene Glycol (Miralax) 17 gm PO DAILY PRN PRN Reason: Constipation Prednisone (Prednisone) 40 mg PO DAILY [facility] Stop: 01/01/18 09:01 Prednisone (Prednisone) 20 mg PO DAILY [facility] Stop: 01/03/18 09:01 Quetiapine Fumarate (Seroquel) 50 mg PO BEDTIME [facility] Last Admin: 12/29/17 20:50 Dose: 50 mg Senna/Docusate Sodium (Senna Plus) 1 tab PO BID PRN PRN Reason: Constipation Sodium Chloride (Saline Flush) 10 ml FLUSH ASDIRECTED PRN PRN Reason: Keep Vein Open Last Admin: 12/26/17 21:49 Dose: 10 ml Triamterene/HCTZ (Dyazide 25-37.5 Mg) 1 each PO DAILY [facility] Last Admin: 12/30/17 08:45 Dose: 1 each Discontinued Medications Albuterol/Ipratropium (Duoneb 3.0-0.5 Mg/3 Ml) 3 ml NEB ONETIME ONE Stop: 12/26/17 21:36 Last Admin: 12/26/17 21:50 Dose: 3 ml Fentanyl (Sublimaze) 100 mcg IVPUSH ONETIME ONE Stop: 12/26/17 22:27 Last Admin: 12/26/17 22:39 Dose: 100 mcg Levofloxacin/Dextrose 750 mg/ (Premix) 150 mls @ 100 mls/hr IV ONETIME ONE Stop: 12/26/17 23:05 Last Admin: 12/26/17 22:24 Dose: 100 mls/hr Magnesium Sulfate 2 gm/ Premix 50 mls @ 25 mls/hr IV ONETIME ONE Stop: 12/26/17 23:34 Last Admin: 12/26/17 21:47 Dose: 25 mls/hr Promethazine HCl 12.5 mg/ (Sodium Chloride) 50.5 mls @ 100 mls/hr IV Q6H PRN PRN Reason: Nausea/Vomiting Azithromycin 500 mg/ Sodium (Chloride) 250 mls @ 250 mls/hr IV ONETIME ONE Stop: 12/27/17 02:59 Last Admin: 12/27/17 02:19 Dose: 250 mls/hr Magnesium Sulfate/Dextrose 1 (gm/ Premix) 100 mls @ 100 mls/hr IV ONETIME ONE Stop: 12/27/17 02:59 Last Admin: 12/27/17 02:21 Dose: 100 mls/hr Sodium Chloride (Normal Saline) 1,000 mls @ 100 mls/hr IV ASDIRECTED [facility] Stop: 12/27/17 21:29 Last Admin: 12/27/17 12:34 Dose: 100 mls/hr Lorazepam (Ativan) 1 mg IVPUSH ONETIME ONE Stop: 12/26/17 21:38 Last Admin: 12/26/17 21:44 Dose: 1 mg Lorazepam (Ativan) 0.5 mg IV Q6H PRN PRN Reason: Anxiety Last Admin: 12/27/17 09:59 Dose: 0.5 mg Lorazepam (Ativan) 1 mg PO TID [facility] Last Admin: 12/27/17 18:56 Dose: Not Given Lorazepam (Ativan) 1 mg PO TID PRN PRN Reason: Anxiety Last Admin: 12/28/17 03:47 Dose: 1 mg Lorazepam (Ativan) 0.25 mg IVPUSH ONETIME ONE Stop: 12/29/17 03:21 Last Admin: 12/29/17 03:30 Dose: 0.25 mg Magnesium Oxide (Magnesium Oxide) 400 mg PO ONETIME ONE Stop: 12/29/17 09:01 Last Admin: 12/29/17 09:12 Dose: 400 mg Magnesium Oxide (Magnesium Oxide) 400 mg PO ONETIME ONE Stop: 12/29/17 13:01 Last Admin: 12/29/17 14:14 Dose: 400 mg Magnesium Sulfate (Pharmacy To Dose - Magnesium Replacement) 0 dose .XX ASDIRECTED PRN PRN Reason: RX TO WATCH MAG LEVESL Methylprednisolone Sodium Succinate (Solu-Medrol) 125 mg IVPUSH ONETIME ONE Stop: 12/26/17 21:37 Last Admin: 12/26/17 21:46 Dose: 125 mg Methylprednisolone Sodium Succinate (Solu-Medrol) 125 mg IVPUSH Q6H [facility] Last Admin: 12/28/17 08:21 Dose: 125 mg Methylprednisolone Sodium Succinate (Solu-Medrol) 80 mg IVPUSH Q8H [facility] Last Admin: 12/29/17 09:11 Dose: 80 mg Methylprednisolone Sodium Succinate (Solu-Medrol) 80 mg IVPUSH Q12H [facility] Stop: 12/30/17 08:01 Last Admin: 12/30/17 08:43 Dose: 80 mg Mometasone Furoate/Formoterol Fumar (Dulera 100-5 Mcg) 2 puff IH BID [facility] Last Admin: 12/27/17 08:45 Dose: Not Given Morphine Sulfate (Morphine) 1 mg IVPUSH Q6H PRN PRN Reason: Chest Pain Last Admin: 12/27/17 08:39 Dose: 1 mg Morphine Sulfate (Morphine) 1 mg IVPUSH Q6H PRN PRN Reason: Chest Pain Last Admin: 12/28/17 09:02 Dose: 1 mg Potassium Chloride (Pharmacy To Dose - Potassium Replacement) 0 dose .XX ASDIRECTED PRN PRN Reason: RX TO WATCH K LEVELS Potassium Chloride (Klor-Con M20) 40 meq PO Q4H [facility] Stop: 12/28/17 21:01 Last Admin: 12/28/17 21:24 Dose: 40 meq - Plan Plan:: Patient has had frequent admissions for similar complaints; unfortunately has missed an appointment at the [facility]. Has required narcotics for unspecified need. During this admission has been allowed to use her own pain meds. Would benefit from aggressive follow up, and pulmonary rehab to address quality of life. Current acute need is PNA from mycoplasma as above. LOS> 96 hours, has consistently been slow to recover baseline function; would benefit from SNF.
[2017-12-30] MEDS: SYMBICORT INH SCH ×2 (08:32→20:40)
[2017-12-30] MEDS: methylPREDNISolone Sodium Succinate 40 MG/1 ML SDV IVPUSH SCH (08:43)
[2017-12-30] MEDS: Magnesium Oxide 400 MG Tab PO SCH (08:43)
[2017-12-30] MEDS: Azithromycin 250 MG Tab PO SCH (08:45)
[2017-12-30] MEDS: guaiFENesin 600 MG Tab.ER PO SCH ×2 (08:45→20:14)
[2017-12-30] MEDS: Hydrochlorothiazide/Triamterene 25-37.5 MG Cap PO SCH (08:45)
[2017-12-30] MEDS: ALPRAZolam 1 MG Tab PO SCH ×3 (08:45→20:15)
[2017-12-30] MEDS: guaiFENesin/Dextromethorphan 100-10 MG/5 ML Soln 5 ML Cup PO PRN ×2 (08:59→20:14)
[2017-12-30] MEDS: QUEtiapine 25 MG Tab PO SCH (20:15)
[2017-12-30] MEDS: Mirtazapine 30 MG Tab PO SCH (20:15)
[2017-12-30] MEDS ORDERED: Metoprolol Tartrate 5 MG/5 ML SDV IVPUSH PRN (21:33)
--- NOTE | 2017-12-31 07:55 | PCM.DCSUM1 ---
Discharge Summary - Hospital Course Free Text/Narrative:: This is a 52 yo white female with past medical hx/o Impaired Vision, HTN, Urinary Incontinence, OA, Osteoporosis, Back Pain, Migraines, Depression, and Anxiety who comes in for worsening shortness of breath and difficulty breathing. Belinda is known to the hospitalist for numerous admissions related to COPD exacerbation. She used to follow Dr. Messina but now Dr. Granger. She tells me, she has not seen Dr. Granger but has an appointment to see her in January. Sometime last year, she was referred to [facility] but never got around to it. Her initial work up in ED shows a CBC remarkable for WBC of 14.12%, neutrophils of 78%, lymphocytes of 7.3%, monocytes of 14%, and eosinophils of 0.4%. Her ABG shows a pH of 7.28%, PCO2 of 61.2%, pO2 of 138, HCO3 of 27.6, and O2 saturation of 99.1 on non-rebreather mask with FiO2 of 100%. Her chemistry is remarkable for chloride of 96, anion gap of 16.5, creatinine of 1.2, CRP of 49.5, and total protein of 8.6. The chest x-ray shows emphysematous changes and mild diffuse fibrosis. She is admitted for COPD exacerbation. She is full code. - Discharge Data Discharge Date: 12/31/17 Discharge Disposition: Home, W Home Health Agency 06 Condition: Fair - Discharge Diagnosis/Problem(s) (1) Mycoplasma pneumonia SNOMED Code(s): 49959179 ICD Code: J15.7 - PNEUMONIA DUE TO MYCOPLASMA PNEUMONIAE Status: Acute Priority: High Current Visit: Yes Qualifiers: Laterality: unspecified laterality Lung location: unspecified part of lung Qualified Code(s): J15.7 - Pneumonia due to Mycoplasma pneumoniae (2) COPD exacerbation SNOMED Code(s): 311389622642980 ICD Code: J44.1 - CHRONIC OBSTRUCTIVE PULMONARY DISEASE W (ACUTE) EXACERBATION Status: Acute Priority: High Current Visit: Yes (3) Hypoxia SNOMED Code(s): 898750820 ICD Code: R09.02 - HYPOXEMIA Status: Chronic Priority: High Current Visit: Yes (4) Hypomagnesemia SNOMED Code(s): 513421319 ICD Code: E83.42 - HYPOMAGNESEMIA Status: Acute Priority: High Current Visit: Yes (5) Carbon dioxide retention SNOMED Code(s): 88518112 ICD Code: E87.2 - ACIDOSIS Status: Chronic Priority: Medium Current Visit: Yes (6) Chest wall pain SNOMED Code(s): 878066788 ICD Code: R07.89 - OTHER CHEST PAIN Status: Resolved Priority: Medium Current Visit: Yes (7) Severe anxiety SNOMED Code(s): 12872445 ICD Code: F41.9 - ANXIETY DISORDER, UNSPECIFIED Status: Chronic Priority : Medium Current Visit: Yes (8) Renal insufficiency SNOMED Code(s): 696317086 ICD Code: N28.9 - DISORDER OF KIDNEY AND URETER, UNSPECIFIED Status: Chronic Priority: Medium Current Visit: Yes (9) HTN (hypertension) SNOMED Code(s): 28448025 ICD Code: I10 - ESSENTIAL (PRIMARY) HYPERTENSION Status: Chronic Priority : Low Current Visit: No Qualifiers: Hypertension type: unspecified Qualified Code(s): I10 - Essential (primary ) hypertension - Patient Summary/Data Operative Procedure(s) Performed: None Complications: None Consults: Consultations 12/27/17 01:34 Consult to Case Management [CONS] Routine Consult to Seat Trimmer [CONS] Routine Consult to Spiritual Care [CONS] Routine OT Evaluation and Treatment [CONS] Routine PT Evaluation and Treatment [CONS] Routine Respiratory Care Assess and Treatment [CONS] Routine Labs Pending at D/C: None Recommended Follow-up Testing/Procedures: Home Health Care is ordered for Physical Therapy, Nursing and RESIDENT SERVICES MANAGER services. Therapy recommend use of walker at home. Therapy recommend for her to continue with Pulmonary Rehab after services of Home Health are completed. Follow up with PCP, ELEN Mccarthy within one week of discharge. Planned Operative Procedure(s) after DC: None Hospital Course: Assessment/Plan: Acute: COPD Exacerbation - End Stage - IV Steroids--> decrease, Bronchodilators, IV Mg, Supplement O2 as needed - IV Morphine PRN for severe Dyspnea --> will stop for now as she has been sedated - Levaquin started in ED - stopped - Has not seen Dr. Granger - Follow-up appt. scheduled in early January; Has been referred to [facility] but never got around to it; referral , states when she sees Dr. Granger she will get another referral. - Sputum culture - few gram negative coccobacilli, probable Hemophilus - azithromycin should cover - Viral respiratory panel, strep pneumo - all negative Positive Mycoplasma Pneumonia - Azithromycin-- PO - Duonebs/RT/IS/Acapella - Mucinex - CXR shows nothing acute - Repeat CXR 12/29/17 - nothing acute - Droplet precautions Renal insufficiency, improving to resolved - Acute - Baseline appears to be WNL - eGFR 47-->52-->58, Creatinine 1.2-->1.1-->1.0, Bun 18-->22-->26 - IV fluids - completed; Use caution with nephrotoxic drugs; Encourage oral hydration Respiratory Failure, improved - BIPAP 10/5---felt better with this overnight - Alternating with NC O2 - Seems to be benefiting from use and requests home unit. Hypomagnesemia- mild -mag 1.7, K+ WNL -Replete and monitor daily Resolved: Hyponatremia, improving - Sodium 132--> 135-->139 - IV NS for now --> completed 1L - Encourage oral hydration - Monitor Chronic: Impaired Vision HTN- stable Urinary Incontinence OA Osteoporosis Back Pain Migraines Depression/Anxiety Plan: She is clinically stable, slowly improving, continue current treatment plan: LOS will be >96 hours due to slower than expected course of improvement, lab monitoring, electrolyte abnormalities. Resume Home Meds Routine AM Labs RT/OT/PT consult SW/CM for d/c planning PE/DVT prophylaxis: SCDs Code Status: Full code PCP is ELEN Mccarthy Patient will be dc'd with BIPAP with settings of 10/5 with 4l/m bleed in for end stage COPD with hypercapnia/CO2 retention as documented by RT last night. Face to face encounter with patient on day of discharge reveals she will benefit from HHC, nursing, RESIDENT SERVICES MANAGER services and PT. She will be home bound due to her end stage COPD/SOB/JOSÉ. Nursing will provide medication education, assessment of VS and general education re: end stage COPD, RESIDENT SERVICES MANAGER services will provide assist with ADL's and PT for strengthening and balance training. She will Fup with ELEN Mccarthy, PCP within one week of DC who will assume HHC orders at that time. - Patient Instructions Diet: Usual Diet as Tolerated Activity: As Tolerated Driving: Do Not Drive Showering/Bathing: May Shower Notify Provider of: Fever, Increased Pain (worsening shortness of breath, coughing.) - Discharge Plan Prescriptions/Med Rec: Azithromycin [Zithromax] 500 mg PO DAILY #3 tab guaiFENesin [Mucinex] 1,200 mg PO BID #30 tab.er Magnesium Oxide 400 mg PO DAILY #30 tablet Prednisone [IJD: Prednisone] 10 mg PO DAILY #3 tab Prednisone [IJD: predniSONE] 20 mg PO DAILY #3 tablet Prednisone [IJD: predniSONE] 40 mg PO DAILY #3 tablet Home Medications: Home Meds Budesonide/Formoterol Fumarate [Symbicort 80-4.5 Mcg Inhaler] 2 puff IH BID [History] Triamterene/Hydrochlorothiazid [Triamterene-HCTZ 37.5-25 MG] 1 each PO DAILY # 30 capsule 04/23/17 [Rx] Mirtazapine [Remeron] 30 mg PO BEDTIME 08/11/17 [History] QUEtiapine Fumarate [Seroquel] 50 mg PO BEDTIME 08/11/17 [History] ALPRAZolam [Xanax] 1 mg PO TID 10/11/17 [History] Albuterol [Proair HFA] 2 puff INH Q4HR PRN 12/01/17 [History] Albuterol/Ipratropium [DuoNeb 3.0-0.5 MG/3 ML] 3 ml INH Q4HR PRN 12/01/17 [ History] Hydrocodone/Acetaminophen [Hydrocodon-Acetaminophn 10-325] 1 tab PO Q6H PRN [History] Azithromycin [Zithromax] 500 mg PO DAILY #3 tab 12/31/17 [Rx] Magnesium Oxide 400 mg PO DAILY #30 tablet 12/31/17 [Rx] Prednisone [IJD: Prednisone] 10 mg PO DAILY #3 tab 12/31/17 [Rx] Prednisone [IJD: predniSONE] 20 mg PO DAILY #3 tablet 12/31/17 [Rx] Prednisone [IJD: predniSONE] 40 mg PO DAILY #3 tablet 12/31/17 [Rx] guaiFENesin [Mucinex] 1,200 mg PO BID #30 tab.er 12/31/17 [Rx] Patient Handouts: Chronic Obstructive Pulmonary Disease, [id number], Community-Acquired Pneumonia, Adult Forms: ED Department Discharge Referrals: PCP,Unknown [Ordering Only Provider] - - Discharge Summary/Plan Comment DC Time >30 min.: Yes (40 min) - General Info Date of Service: 12/31/17 Admission Dx/Problem (Free Text: COPD Exacerbation Breathing better today. Still coughing but improved. Slept well. Good appetite. Functional Status: Reports: Pain Controlled, Tolerating Diet, Ambulating, Urinating, Incentive Spirometry - Review of Systems General: Reports: Weakness (generalized) HEENT: Reports: No Symptoms Pulmonary: Reports: Shortness of Breath (chronic- baseline or improved from admit), Cough (improved) Cardiovascular: Reports: Dyspnea on Exertion (chronic- baseline/stable) Gastrointestinal: Reports: No Symptoms Neurological: Reports: No Symptoms Psychiatric: Reports: No Symptoms - Patient Data Vitals - Most Recent: Last Vital Signs Temp 97.9 F 12/31/17 03:54 Pulse 95 12/31/17 03:54 Resp 21 H 12/31/17 03:54 BP 125/77 12/31/17 03:54 Pulse Ox 95 12/31/17 03:54 Weight - Most Recent: 120 lb 11.2 oz I&O - Last 24 hours: Intake & Output 12/30/17 12/31/17 12/31/17 22:59 06:59 14:59 Intake Total 680 200 Balance 680 200 Lab Results - Last 24 hrs: Laboratory Results - last 24 hr 12/31/17 Range/Units 06:10 WBC 21.57 H (3.98-10.04) K/mm3 RBC 4.24 (3.98-5.22) M/mm3 Hgb 11.4 (11.2-15.7) gm/L Hct 37.4 (34.1-44.9) % MCV 88.2 (79.4-94.8) fl MCH 26.9 (25.6-32.2) pg MCHC 30.5 L (32.2-35.5) g/dl RDW Std Deviation 44.9 (36.4-46.3) fL Plt Count 387 H (182-369) K/mm3 MPV 9.8 (9.4-12.3) fl BARRERA Results - Last 24 hrs: Microbiology 12/27/17 02:49 Gram Stain - Final Sputum - Expectorated Sputum Culture - Preliminary Gram Negative Coccobacilli Med Orders - Current: Current Medications Acetaminophen (Tylenol) 650 mg PO Q4H PRN PRN Reason: Pain (Mild 1-3)/fever Hydrocodone Bitart/Acetaminophen ([place] 325-10 Mg) 1 tab PO Q6H PRN PRN Reason: Pain Last Admin: 12/30/17 20:16 Dose: 1 tab Albuterol (Proventil Hfa) 0 gm INH Q4HR PRN PRN Reason: Shortness of Breath Albuterol/Ipratropium (Duoneb 3.0-0.5 Mg/3 Ml) 3 ml INH Q4HR PRN PRN Reason: Shortness of Breath Last Admin: 12/29/17 08:20 Dose: 3 ml Alprazolam (Xanax) 1 mg PO TID [facility] Last Admin: 12/30/17 20:15 Dose: 1 mg Bisacodyl (Dulcolax) 5 mg PO DAILY PRN PRN Reason: Constipation Docusate Sodium (Colace) 100 mg PO BID PRN PRN Reason: Constipation Guaifenesin (Mucinex) 1,200 mg PO BID [facility] Last Admin: 12/30/17 20:14 Dose: 1,200 mg Guaifenesin/Phenylephrine HCl (Robitussin Dm) 5 ml PO Q4H PRN PRN Reason: Cough Last Admin: 12/30/17 20:14 Dose: 5 ml Hydromorphone HCl (Dilaudid) 0.25 mg IVPUSH Q2H PRN PRN Reason: Pain (severe 7-10) Magnesium Oxide (Magnesium Oxide) 400 mg PO DAILY [facility] Last Admin: 12/30/17 08:43 Dose: 400 mg Metoprolol Tartrate (Lopressor) 5 mg IVPUSH Q4H PRN PRN Reason: Tachycardia Last Admin: 12/30/17 22:22 Dose: 5 mg Mirtazapine (Remeron) 30 mg PO BEDTIME [facility] Last Admin: 12/30/17 20:15 Dose: 30 mg Ondansetron HCl (Zofran) 4 mg IV Q6H PRN PRN Reason: Nausea/Vomiting Symbicort Inhaler (160-4.5 Mcg) 0 each INH BID [facility] Last Admin: 12/30/17 20:40 Dose: 2 each Polyethylene Glycol (Miralax) 17 gm PO DAILY PRN PRN Reason: Constipation Prednisone (Prednisone) 40 mg PO DAILY SHAUN Stop: 01/01/18 09:01 Prednisone (Prednisone) 20 mg PO DAILY SHAUN Stop: 01/03/18 09:01 Quetiapine Fumarate (Seroquel) 50 mg PO BEDTIME [facility] Last Admin: 12/30/17 20:15 Dose: 50 mg Senna/Docusate Sodium (Senna Plus) 1 tab PO BID PRN PRN Reason: Constipation Sodium Chloride (Saline Flush) 10 ml FLUSH ASDIRECTED PRN PRN Reason: Keep Vein Open Last Admin: 12/26/17 21:49 Dose: 10 ml Triamterene/HCTZ (Dyazide 25-37.5 Mg) 1 each PO DAILY [facility] Last Admin: 12/30/17 08:45 Dose: 1 each Discontinued Medications Albuterol/Ipratropium (Duoneb 3.0-0.5 Mg/3 Ml) 3 ml NEB ONETIME ONE Stop: 12/26/17 21:36 Last Admin: 12/26/17 21:50 Dose: 3 ml Azithromycin (Zithromax) 250 mg PO DAILY SHAUN Stop: 12/30/17 12:00 Last Admin: 12/30/17 08:45 Dose: 250 mg Fentanyl (Sublimaze) 100 mcg IVPUSH ONETIME ONE Stop: 12/26/17 22:27 Last Admin: 12/26/17 22:39 Dose: 100 mcg Levofloxacin/Dextrose 750 mg/ (Premix) 150 mls @ 100 mls/hr IV ONETIME ONE Stop: 12/26/17 23:05 Last Admin: 12/26/17 22:24 Dose: 100 mls/hr Magnesium Sulfate 2 gm/ Premix 50 mls @ 25 mls/hr IV ONETIME ONE Stop: 12/26/17 23:34 Last Admin: 12/26/17 21:47 Dose: 25 mls/hr Promethazine HCl 12.5 mg/ (Sodium Chloride) 50.5 mls @ 100 mls/hr IV Q6H PRN PRN Reason: Nausea/Vomiting Azithromycin 500 mg/ Sodium (Chloride) 250 mls @ 250 mls/hr IV ONETIME ONE Stop: 12/27/17 02:59 Last Admin: 12/27/17 02:19 Dose: 250 mls/hr Magnesium Sulfate/Dextrose 1 (gm/ Premix) 100 mls @ 100 mls/hr IV ONETIME ONE Stop: 12/27/17 02:59 Last Admin: 12/27/17 02:21 Dose: 100 mls/hr Sodium Chloride (Normal Saline) 1,000 mls @ 100 mls/hr IV ASDIRECTED SHAUN Stop: 12/27/17 21:29 Last Admin: 12/27/17 12:34 Dose: 100 mls/hr Lorazepam (Ativan) 1 mg IVPUSH ONETIME ONE Stop: 12/26/17 21:38 Last Admin: 12/26/17 21:44 Dose: 1 mg Lorazepam (Ativan) 0.5 mg IV Q6H PRN PRN Reason: Anxiety Last Admin: 12/27/17 09:59 Dose: 0.5 mg Lorazepam (Ativan) 1 mg PO TID [facility] Last Admin: 12/27/17 18:56 Dose: Not Given Lorazepam (Ativan) 1 mg PO TID PRN PRN Reason: Anxiety Last Admin: 12/28/17 03:47 Dose: 1 mg Lorazepam (Ativan) 0.25 mg IVPUSH ONETIME ONE Stop: 12/29/17 03:21 Last Admin: 12/29/17 03:30 Dose: 0.25 mg Magnesium Oxide (Magnesium Oxide) 400 mg PO ONETIME ONE Stop: 12/29/17 09:01 Last Admin: 12/29/17 09:12 Dose: 400 mg Magnesium Oxide (Magnesium Oxide) 400 mg PO ONETIME ONE Stop: 12/29/17 13:01 Last Admin: 12/29/17 14:14 Dose: 400 mg Magnesium Sulfate (Pharmacy To Dose - Magnesium Replacement) 0 dose .XX ASDIRECTED PRN PRN Reason: RX TO WATCH MAG LEVESL Methylprednisolone Sodium Succinate (Solu-Medrol) 125 mg IVPUSH ONETIME ONE Stop: 12/26/17 21:37 Last Admin: 12/26/17 21:46 Dose: 125 mg Methylprednisolone Sodium Succinate (Solu-Medrol) 125 mg IVPUSH Q6H [facility] Last Admin: 12/28/17 08:21 Dose: 125 mg Methylprednisolone Sodium Succinate (Solu-Medrol) 80 mg IVPUSH Q8H [facility] Last Admin: 12/29/17 09:11 Dose: 80 mg Methylprednisolone Sodium Succinate (Solu-Medrol) 80 mg IVPUSH Q12H [facility]UN Stop: 12/30/17 08:01 Last Admin: 12/30/17 08:43 Dose: 80 mg Metoprolol Tartrate (Lopressor) 5 mg IVPUSH ONETIME PRN PRN Reason: Tachycardia Last Admin: 12/29/17 12:14 Dose: 5 mg Metoprolol Tartrate (Lopressor) 5 mg IVPUSH ONETIME PRN PRN Reason: Tachycardia Last Admin: 12/29/17 14:19 Dose: 5 mg Mometasone Furoate/Formoterol Fumar (Dulera 100-5 Mcg) 2 puff IH BID SHAUN Last Admin: 12/27/17 08:45 Dose: Not Given Morphine Sulfate (Morphine) 1 mg IVPUSH Q6H PRN PRN Reason: Chest Pain Last Admin: 12/27/17 08:39 Dose: 1 mg Morphine Sulfate (Morphine) 1 mg IVPUSH Q6H PRN PRN Reason: Chest Pain Last Admin: 12/28/17 09:02 Dose: 1 mg Potassium Chloride (Pharmacy To Dose - Potassium Replacement) 0 dose .XX ASDIRECTED PRN PRN Reason: RX TO WATCH K LEVELS Potassium Chloride (Klor-Con M20) 40 meq PO Q4H [facility] Stop: 12/28/17 21:01 Last Admin: 12/28/17 21:24 Dose: 40 meq - Exam Quality Assessment: Reports: Supplemental Oxygen, DVT Prophylaxis General: Reports: Alert, Oriented, Cooperative, No Acute Distress HEENT: Reports: Pupils Equal, EOMI, Mucous Membr. Moist/[place] Neck: Reports: Supple Lungs: Reports: Normal Respiratory Effort, Decreased Breath Sounds, Wheezing Cardiovascular: Reports: Regular Rate, Regular Rhythm GI/Abdominal Exam: Normal Bowel Sounds, Soft, Non-Tender (Female) Exam: Deferred Rectal (Female) Exam: Deferred Extremities: No Pedal Edema, Normal Capillary Refill Neurological: Reports: No New Focal Deficit Psy/Mental Status: Reports: Alert, Normal Affect, Normal Mood *Q Meaningful Use (DIS) - VTE *Q VTE Criteria *Q: - Stroke *Q Stroke Criteria *Q: - AMI *Q AMI Criteria *Q:
[2017-12-31] MEDS: guaiFENesin 600 MG Tab.ER PO SCH (08:50)
[2017-12-31] MEDS: guaiFENesin/Dextromethorphan 100-10 MG/5 ML Soln 5 ML Cup PO PRN ×2 (08:50→15:35)
[2017-12-31] MEDS: Acetaminophen/HYDROcodone 325-10 MG Tab PO PRN ×2 (08:50→15:32)
[2017-12-31] MEDS: Hydrochlorothiazide/Triamterene 25-37.5 MG Cap PO SCH (08:51)
[2017-12-31] MEDS: Magnesium Oxide 400 MG Tab PO SCH (08:51)
[2017-12-31] MEDS: ALPRAZolam 1 MG Tab PO SCH ×2 (08:51→15:32)
[2017-12-31] MEDS ORDERED: predniSONE 20 MG Tab PO SCH (09:00)
[2017-12-31] MEDS: SYMBICORT INH SCH (09:15)
[2017-12-31] MEDS ORDERED: Magnesium Oxide 400 MG Tab PO ONE (10:30)
[2017-12-31 15:44] VITALS: BP 144/90
[2018-01-02] MEDS ORDERED: predniSONE 20 MG Tab PO SCH (09:00)
== END 2017-12-31 16:30 | disposition home health service (06) | DRG 190 ==
LOC: JD.ED 21:33 → JD.MS 12-27 00:32
PROVIDERS: ADMIT Internal Medicine; ATTEND Internal Medicine
DX: J44.0 Chronic obstructive pulmonary disease with (acute) lower respiratory infection (principal); R09.02 Hypoxemia; J15.7 Pneumonia due to Mycoplasma pneumoniae; J96.91 Respiratory failure, unspecified with hypoxia; E87.1 Hypo-osmolality and hyponatremia; J44.1 Chronic obstructive pulmonary disease with (acute) exacerbation; Z87.891 Personal history of nicotine dependence; H54.7 Unspecified visual loss; I10 Essential (primary) hypertension; R32 Unspecified urinary incontinence; M19.90 Unspecified osteoarthritis, unspecified site; M81.0 Age-related osteoporosis without current pathological fracture; M54.9 Dorsalgia, unspecified; F32.9 Major depressive disorder, single episode, unspecified; F41.9 Anxiety disorder, unspecified; N28.9 Disorder of kidney and ureter, unspecified; Z99.81 Dependence on supplemental oxygen; Z79.899 Other long term (current) drug therapy
CPT/HCPCS: 36415; 36600; 71045; 71045-26; 71046; 71046-26; 74018; 74018-26; 80048; 80053; 82803; 83735; 85025; 86140; 86738; 87040; 87070; 87077; 87184; 87205; 87486; 87581; 87633; 87798; 87804; 87899; 94640; 94660; 94667; 94760; 94761; 94762; 96365; 96366; 96367; 96375; 97110-GO; 97110-GP; 97116-GP; 97162-GP; 97165-GO; 97530-GO; 97530-GP; 99285; 99285-25; A9270-GY; J0456; J1956; J2060; J2270; J2920; J2930; J3010; J3475; J3490; J7040; J7050

== ENCOUNTER 2018-01-26 21:54 | Emergency (ER) | payer MEDICAID ==
[2018-01-26 22:07] VITALS: BP 153/93
[2018-01-26] MEDS ORDERED: Ketorolac 30 MG/ML SDV IM ONE (22:14)
[2018-01-26] MEDS ORDERED: Haloperidol Lactate 5 MG/ML SDV IM ONE (22:14)
[2018-01-26] MEDS ORDERED: diphenhydrAMINE 50 MG/ML SDV IM ONE ×2 (22:14→22:18)
--- NOTE | 2018-01-26 22:25 | EDM.PDOC ---
<Willie Rojas - Last Filed: 01/27/18 05:49> ED HPI GENERAL MEDICAL PROBLEM - General Chief Complaint: Headache Stated Complaint: MIGRAINE Time Seen by Provider: 01/26/18 22:07 - Related Data Allergies Allergy/AdvReac Type Severity Reaction Status Date / Time No Known Allergies Allergy Verified 01/26/18 22:15 Home Meds: Home Meds Budesonide/Formoterol Fumarate [Symbicort 80-4.5 Mcg Inhaler] 2 puff IH BID [History] Triamterene/Hydrochlorothiazid [Triamterene-HCTZ 37.5-25 MG] 1 each PO DAILY # 30 capsule 04/23/17 [Rx] Mirtazapine [Remeron] 30 mg PO BEDTIME 08/11/17 [History] QUEtiapine Fumarate [Seroquel] 50 mg PO BEDTIME 08/11/17 [History] ALPRAZolam [Xanax] 1 mg PO TID 10/11/17 [History] Albuterol [Proair HFA] 2 puff INH Q4HR PRN 12/01/17 [History] Albuterol/Ipratropium [DuoNeb 3.0-0.5 MG/3 ML] 3 ml INH Q4HR PRN 12/01/17 [ History] Hydrocodone/Acetaminophen [Hydrocodon-Acetaminophn 10-325] 1 tab PO Q6H PRN [History] Magnesium Oxide 400 mg PO DAILY #30 tablet 12/31/17 [Rx] guaiFENesin [Mucinex] 1,200 mg PO BID #30 tab.er 12/31/17 [Rx] EKG INTERPRETATION EKG Date: 01/27/18 Time: 00:45 Rhythm: Other Rate (Beats/Min): 115 [place]: Normal P-Wave: Enlarged (Biatrial hypertrophy) QRS: Other (Q waves in leads V1 and V2. May be lead placement. Consider old anteroseptal myocardial infarction. Likely left ventricular hypertrophy/septal hypertrophy pattern) ST-T: Other (Diffuse early repolarization pattern) QT: Normal EKG Interpretation Comments: Abnormal ECG Course - Vital Signs Last Recorded V/S: Last Vital Signs Temp 98.4 F 01/26/18 22:01 Pulse 130 H 01/26/18 22:01 Resp 18 01/26/18 22:01 BP 153/93 H 01/26/18 22:01 Pulse Ox 91 L 01/26/18 22:01 - Orders/Labs/Meds Orders: Active Orders 24 hr Category Date Time Status EKG 12 Lead [EKG Documentation Completion] [RC] STAT Care 01/27/18 00:35 Active Peripheral IV Care [RC] . DIRECTED Care 01/26/18 23:27 Active RT Aerosol Therapy [RC] ASDIRECTED Care 01/26/18 23:24 Active RT BiPAP/CPAP [RC] ASDIRECTED Care 01/26/18 23:24 Active Peripheral IV Insertion Adult [OM.PC] Routine Oth 01/26/18 23:27 Ordered Labs: Laboratory Tests 01/26/18 01/26/18 01/26/18 Range/Units 23:35 23:35 23:35 WBC 10.28 H (3.98-10.04) K/mm3 RBC 4.64 (3.98-5.22) M/mm3 Hgb 12.4 (11.2-15.7) gm/L Hct 39.3 (34.1-44.9) % MCV 84.7 (79.4-94.8) fl MCH 26.7 (25.6-32.2) pg MCHC 31.6 L (32.2-35.5) g/dl RDW Std Deviation 42.6 (36.4-46.3) fL Plt Count 224 (182-369) K/mm3 MPV 10.2 (9.4-12.3) fl Neutrophils % (Manual) 68 H (40-60) % Band Neutrophils % 0 (0-10) % Lymphocytes % (Manual) 17 L (20-40) % Atypical Lymphs % 2 % Monocytes % (Manual) 11 H (2-10) % Eosinophils % (Manual) 2 (0.7-5.8) % Basophils % (Manual) 0 L (0.1-1.2) Platelet Estimate Adequate Plt Morphology Comment Normal Hypochromasia 1+ slight Poikilocytosis 1+ slight Anisocytosis 1+ slight Microcytosis 1+ slight Macrocytosis 1+ slight Tear Drop Cells 1+ slight Ovalocytes 1+ slight RBC Morph Comment Abnormal Puncture Site ABG pH (7.35-7.45) ABG pCO2 (35.0-45.0) mmHg ABG pO2 (80.0-100.0) mmHg ABG HCO3 (22.0-26.0) meq/L ABG O2 Saturation (96.0-97.0) % ABG Base Excess (-2-2.0) A-a Gradient mmHg O2 Delivery Device Oxygen Flow Rate FiO2 (21.00-100.00) % Sodium 140 (136-145) mEq/L Potassium 3.3 L (3.5-5.1) mEq/L Chloride 100 (98-107) mEq/L Carbon Dioxide 35 H (21-32) mEq/L Anion Gap 8.3 (5-15) BUN 11 (7-18) mg/dL Creatinine 0.9 (0.55-1.02) mg/dL Est Cr Clr Drug Dosing 59.53 mL/min Estimated GFR (MDRD) > 60 (>60) mL/min BUN/Creatinine Ratio 12.2 L (14-18) Glucose 117 H (74-106) mg/dL Calcium 8.9 (8.5-10.1) mg/dL Magnesium 1.7 L (1.8-2.4) mg/dl Total Bilirubin 0.2 (0.2-1.0) mg/dL AST 19 (15-37) U/L ALT 27 (14-59) U/L Alkaline Phosphatase 64 (46-116) U/L Troponin I < 0.017 (0.00-0.056) ng/mL C-Reactive Protein < 0.2 (<1.0) mg/dL Total Protein 7.2 (6.4-8.2) g/dl Albumin 3.8 (3.4-5.0) g/dl Globulin 3.4 gm/dL Albumin/Globulin Ratio 1.1 (1-2) 01/26/18 Range/Units 23:44 WBC (3.98-10.04) K/mm3 RBC (3.98-5.22) M/mm3 Hgb (11.2-15.7) gm/L Hct (34.1-44.9) % MCV (79.4-94.8) fl MCH (25.6-32.2) pg MCHC (32.2-35.5) g/dl RDW Std Deviation (36.4-46.3) fL Plt Count (182-369) K/mm3 MPV (9.4-12.3) fl Neutrophils % (Manual) (40-60) % Band Neutrophils % (0-10) % Lymphocytes % (Manual) (20-40) % Atypical Lymphs % % Monocytes % (Manual) (2-10) % Eosinophils % (Manual) (0.7-5.8) % Basophils % (Manual) (0.1-1.2) Platelet Estimate Plt Morphology Comment Hypochromasia Poikilocytosis Anisocytosis Microcytosis Macrocytosis Tear Drop Cells Ovalocytes RBC Morph Comment Puncture Site Rt brachial ABG pH 7.28 L (7.35-7.45) ABG pCO2 76.7 H* (35.0-45.0) mmHg ABG pO2 75.0 L (80.0-100.0) mmHg ABG HCO3 34.9 H (22.0-26.0) meq/L ABG O2 Saturation 95.6 L (96.0-97.0) % ABG Base Excess 6.1 H (-2-2.0) A-a Gradient 59 mmHg O2 Delivery Device Cannula Oxygen Flow Rate 4.0 FiO2 36.00 (21.00-100.00) % Sodium (136-145) mEq/L Potassium (3.5-5.1) mEq/L Chloride (98-107) mEq/L Carbon Dioxide (21-32) mEq/L Anion Gap (5-15) BUN (7-18) mg/dL Creatinine (0.55-1.02) mg/dL Est Cr Clr Drug Dosing mL/min Estimated GFR (MDRD) (>60) mL/min BUN/Creatinine Ratio (14-18) Glucose (74-106) mg/dL Calcium (8.5-10.1) mg/dL Magnesium (1.8-2.4) mg/dl Total Bilirubin (0.2-1.0) mg/dL AST (15-37) U/L ALT (14-59) U/L Alkaline Phosphatase (46-116) U/L Troponin I (0.00-0.056) ng/mL C-Reactive Protein (<1.0) mg/dL Total Protein (6.4-8.2) g/dl Albumin (3.4-5.0) g/dl Globulin gm/dL Albumin/Globulin Ratio (1-2) Meds: Medications Discontinued Medications Generic Name Dose Route Start Last Admin Trade Name Freq PRN Reason Stop Dose Admin Albuterol 2.5 mg 01/26/18 23:24 01/27/18 00:19 Proventil Neb Soln NEB 01/26/18 23:25 Not Given ONETIME ONE Diphenhydramine HCl 25 mg 01/26/18 22:14 Benadryl IM 01/26/18 22:15 ONETIME ONE Diphenhydramine HCl 50 mg 01/26/18 22:18 01/26/18 22:23 Benadryl IM 01/26/18 22:19 50 mg ONETIME ONE Administration Haloperidol Lactate 5 mg 01/26/18 22:14 01/26/18 22:27 Haldol IM 01/26/18 22:15 5 mg ONETIME ONE Administration Hydromorphone HCl 0.5 mg 01/27/18 02:30 01/27/18 02:58 Dilaudid IVPUSH 01/27/18 02:31 0.5 mg ONETIME ONE Administration Magnesium Sulfate 2 gm/ Premix 50 mls @ 25 mls/hr 01/26/18 23:26 01/26/18 23: 43 IV 01/27/18 01:25 25 mls/hr ONETIME ONE Administration Ketorolac Tromethamine 30 mg 01/26/18 22:14 01/26/18 22:25 Toradol IM 01/26/18 22:15 30 mg ONETIME ONE Administration Lorazepam 1 mg 01/26/18 23:00 01/26/18 23:06 Ativan IM 01/26/18 23:01 1 mg ONETIME ONE Administration Lorazepam 0.5 mg 01/27/18 01:04 01/27/18 01:09 Ativan IVPUSH 01/27/18 01:05 0.5 mg ONETIME ONE Administration Lorazepam 1 mg 01/27/18 01:57 Ativan IVPUSH 01/27/18 01:58 ONETIME ONE Prednisone 40 mg 01/26/18 23:24 01/26/18 23:42 Prednisone PO 01/26/18 23:25 40 mg ONETIME ONE Administration Sodium Chloride 10 ml 01/26/18 23:27 01/26/18 23:47 Saline Flush FLUSH 10 ml ASDIRECTED PRN Administration Keep Vein Open - Re-Assessments/Exams Free Text/Narrative Re-Assessment/Exam: Patient is still complaining bitterly of restless leg syndrome. Will give her Ativan 0.5 mg IV at this time. ECG was done and revealed a sinus tachycardia at 1 15/m with possibly an old anteroseptal myocardial infarction. Biatrial hypertrophy and likely septal/left ventricular hypertrophy pattern as well. 01/27/18 01:58 patient remains very anxious. Particularly still restless legs. She will use her BiPAP as she feels claustrophobic. She'll put it on for 2 minutes at a time only. At this time she is requesting something to eat. Will be granted. I will give her Ativan 1 mg IV to provide further sedation and relief of the symptoms. 01/27/18 02:31 patient remains very unstable when she gets up to the bathroom I ataxic gait likely from the effect of Haldol. She received this medication into muscularly. At present she is complaining that she is due for her oxycodone medication for her back pain. Decision made to withhold the Ativan previously ordered and it was canceled. Patient will receive Dilaudid 0.5 mg IV for back pain relief. This may also provide some degree of sedation as I have some concern she may be going through some degree of medication withdrawl. 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 Headache is felt to be due to elevated carbon dioxide in your bloodstream secondary to your underlying severe emphysema/COPD. Treatment is to try and lower the carbon dioxide levels in your blood in the only way to do this is with BiPAP or CPAP machine which will force oxygen into the spaces of your lungs and improve oxygen transport and levels in your bloodstream as well as reduce the carbon dioxide levels. Once this occurs the blood vessels in the head and neck shrink in diameter and the headache will be relieved. Unfortunately you feel very claustrophobic when using the BiPAP machine and essentially refused to use the one you have at home which would be of most benefit for your headache and for your lung disease. You're given medications in the emergency department to relieve her headache ends you remain in the ED overnight due to side effects of those medications causing drowsiness and poor balance. He need to continue oxygen treatment as you have been doing at 3-4 L/m by nasal cannula to maintain pulse ox of 91-95%. Strongly allergic to reconsider using your BiPAP until you get used to it as it is the only long- term solution to your problems until lung transplant can be carried out. May continue to use all other medications as you have been using as prescribed by her primary care physician. - My Orders Last 24 Hours: My Active Orders 01/26/18 23:24 RT Aerosol Therapy [RC] ASDIRECTED RT BiPAP/CPAP [RC] ASDIRECTED 01/26/18 23:27 Peripheral IV Care [RC] . DIRECTED Peripheral IV Insertion Adult [OM.PC] Routine 01/27/18 00:35 EKG 12 Lead [EKG Documentation Completion] [RC] STAT - Assessment/Plan Last 24 Hours: My Active Orders 01/26/18 23:24 RT Aerosol Therapy [RC] ASDIRECTED RT BiPAP/CPAP [RC] ASDIRECTED 01/26/18 23:27 Peripheral IV Care [RC] . DIRECTED Peripheral IV Insertion Adult [OM.PC] Routine 01/27/18 00:35 EKG 12 Lead [EKG Documentation Completion] [RC] STAT <Kameron Corley O - Last Filed: 01/27/18 10:50> ED HPI GENERAL MEDICAL PROBLEM - General Source of Information: Reports: Patient History Limitations: Reports: Respiratory Distress (chronically short of breath no change. able to speak in 1 to 3 word sentences. ) - History of Present Illness INITIAL COMMENTS - FREE TEXT/NARRATIVE: Patient complaining of tension-like headache that started approximately 2 days ago that has gradually worsened. States headache comes on with stress. Pain is localized with no radiation. She does complain of some photophobia and hyperacusis but notes no vision changes. There's been no documented fever, stiff neck, or recent trauma to her head. Her code on chronically for chest discomfort and arm discomfort with secondary to her COPD with no significant improvements to the headache. She has not taken any additional medications. She is chronically short of breath and is on O2 via nasal cannula chronically. She recently was evaluated by her toolmaker helper and was placed on the transplant list. She denies any additional new or worsening symptos. Headache is similar to previous episodes and states it is not the worset headache of her life. Headache Pain Score (Numeric/FACES): 8 Past Medical History HEENT History: Reports: Impaired Vision Cardiovascular History: Reports: Hypertension, Other (See Below) Respiratory History: Reports: COPD Other Respiratory History: end stage COPD, pt is Oxygen dependent Gastrointestinal History: Reports: Colon Polyp Genitourinary History: Reports: Renal Calculus, Urinary Incontinence GUM REMOVER History: Reports: Musculoskeletal History: Reports: Arthritis, Osteoporosis Other Musculoskeletal History: c/o back pain Neurological History: Reports: Migraines Psychiatric History: Reports: Anxiety, Depression Endocrine/Metabolic History: Reports: Osteoporosis Hematologic History: Reports: None - Infectious Disease History Infectious Disease History: Reports: Chicken Pox - Past Surgical History HEENT Surgical History: Reports: Oral Surgery Female Surgical History: Reports: D&C, Hysterectomy Musculoskeletal Surgical History: Reports: Shoulder Replacement Dermatological Surgical History: Reports: None Social & Family History - Family History Family Medical History: Noncontributory - Tobacco Use Smoking Status *Q: Former Smoker Years of Tobacco use: 33 Packs/Tins Daily: 1 Used Tobacco, but Quit: Yes Month/Year Tobacco Last Used: 1 year Second Hand Smoke Exposure: No - Caffeine Use Caffeine Use: Reports: None Other Caffeine Use: 2 - Alcohol Use Days Per Week of Alcohol Use: 0 Number of Drinks Per Day: 1 Total Drinks Per Week: 0 - Recreational Drug Use Recreational Drug Use: No Drug Use in Last 12 Months: Yes Recreational Drug Type: Reports: Marijuana/Hashish Recreational Drug Use Frequency: Weekly - Living Situation & Occupation Living situation: Reports: Single, Alone Occupation: Disabled ED ROS GENERAL - Review of Systems Review Of Systems: See Below Constitutional: Denies: Fever, Chills, Malaise, Decreased Appetite HEENT: Denies: Dental Pain, Ear Pain, Sinus Problem, Throat Pain, Vision Change Respiratory: Reports: Shortness of Breath (Chronically), Pleuritic Chest Pain ( Chronically), Cough (Chronic), Sputum (Chronic no worsening). Denies: Hemoptysis Cardiovascular: Reports: Dyspnea on Exertion GI/Abdominal: Reports: No Symptoms Musculoskeletal: Reports: No Symptoms Skin: Reports: No Symptoms Neurological: Reports: No Symptoms - Physical Exam Exam: See Below Exam Limited By: No Limitations General Appearance: Alert, WD/WN, Mild Distress (Patient is chronically short of breath on home O2 able to speak in 1-3 word sentences. No change per patient. ) Eye Exam: Bilateral Eye: EOMI, Normal Inspection, Nystagmus (None noted), PERRL , Vision Changes (None noted) Ears: Hearing Grossly Normal Nose: Normal Inspection Throat/Mouth: Normal Inspection, Normal Oropharynx, Normal Voice, No Airway Compromise Head Exam: Atraumatic, Normocephalic Neck: Normal Inspection, Supple, Non-Tender Respiratory/Chest: Decreased Breath Sounds, Accessory Muscle Use, Prolonged Expiration, Other (Increased breathing rate). No: Crackles, Rales, Rhonchi, Wheezing, Stridor, Pleural Rub, Retractions, Splinting Cardiovascular: Normal Peripheral Pulses, No Murmur, Tachycardia Neuro Exam (Abbreviated): Alert, Oriented, CN II-XII Intact, Normal Cognition, No Motor/Sensory Deficits Psychiatric: Normal Affect, Normal Mood Skin Exam: Warm, Dry, Intact, Normal Color, No Rash Course - Orders/Labs/Meds Orders: Active Orders 24 hr Category Date Time Status EKG 12 Lead [EKG Documentation Completion] [RC] STAT Care 01/27/18 00:35 Active Peripheral IV Care [RC] . DIRECTED Care 01/26/18 23:27 Active RT Aerosol Therapy [RC] ASDIRECTED Care 01/26/18 23:24 Active RT BiPAP/CPAP [RC] ASDIRECTED Care 01/26/18 23:24 Active Peripheral IV Insertion Adult [OM.PC] Routine Oth 01/26/18 23:27 Ordered Labs: Laboratory Tests 01/26/18 01/26/18 01/26/18 Range/Units 23:35 23:35 23:35 WBC 10.28 H (3.98-10.04) K/mm3 RBC 4.64 (3.98-5.22) M/mm3 Hgb 12.4 (11.2-15.7) gm/L Hct 39.3 (34.1-44.9) % MCV 84.7 (79.4-94.8) fl MCH 26.7 (25.6-32.2) pg MCHC 31.6 L (32.2-35.5) g/dl RDW Std Deviation 42.6 (36.4-46.3) fL Plt Count 224 (182-369) K/mm3 MPV 10.2 (9.4-12.3) fl Neutrophils % (Manual) 68 H (40-60) % Band Neutrophils % 0 (0-10) % Lymphocytes % (Manual) 17 L (20-40) % Atypical Lymphs % 2 % Monocytes % (Manual) 11 H (2-10) % Eosinophils % (Manual) 2 (0.7-5.8) % Basophils % (Manual) 0 L (0.1-1.2) Platelet Estimate Adequate Plt Morphology Comment Normal Hypochromasia 1+ slight Poikilocytosis 1+ slight Anisocytosis 1+ slight Microcytosis 1+ slight Macrocytosis 1+ slight Tear Drop Cells 1+ slight Ovalocytes 1+ slight RBC Morph Comment Abnormal Puncture Site ABG pH (7.35-7.45) ABG pCO2 (35.0-45.0) mmHg ABG pO2 (80.0-100.0) mmHg ABG HCO3 (22.0-26.0) meq/L ABG O2 Saturation (96.0-97.0) % ABG Base Excess (-2-2.0) A-a Gradient mmHg O2 Delivery Device Oxygen Flow Rate FiO2 (21.00-100.00) % Sodium 140 (136-145) mEq/L Potassium 3.3 L (3.5-5.1) mEq/L Chloride 100 (98-107) mEq/L Carbon Dioxide 35 H (21-32) mEq/L Anion Gap 8.3 (5-15) BUN 11 (7-18) mg/dL Creatinine 0.9 (0.55-1.02) mg/dL Est Cr Clr Drug Dosing 59.53 mL/min Estimated GFR (MDRD) > 60 (>60) mL/min BUN/Creatinine Ratio 12.2 L (14-18) Glucose 117 H (74-106) mg/dL Calcium 8.9 (8.5-10.1) mg/dL Magnesium 1.7 L (1.8-2.4) mg/dl Total Bilirubin 0.2 (0.2-1.0) mg/dL AST 19 (15-37) U/L ALT 27 (14-59) U/L Alkaline Phosphatase 64 (46-116) U/L Troponin I < 0.017 (0.00-0.056) ng/mL C-Reactive Protein < 0.2 (<1.0) mg/dL Total Protein 7.2 (6.4-8.2) g/dl Albumin 3.8 (3.4-5.0) g/dl Globulin 3.4 gm/dL Albumin/Globulin Ratio 1.1 (1-2) 01/26/18 Range/Units 23:44 WBC (3.98-10.04) K/mm3 RBC (3.98-5.22) M/mm3 Hgb (11.2-15.7) gm/L Hct (34.1-44.9) % MCV (79.4-94.8) fl MCH (25.6-32.2) pg MCHC (32.2-35.5) g/dl RDW Std Deviation (36.4-46.3) fL Plt Count (182-369) K/mm3 MPV (9.4-12.3) fl Neutrophils % (Manual) (40-60) % Band Neutrophils % (0-10) % Lymphocytes % (Manual) (20-40) % Atypical Lymphs % % Monocytes % (Manual) (2-10) % Eosinophils % (Manual) (0.7-5.8) % Basophils % (Manual) (0.1-1.2) Platelet Estimate Plt Morphology Comment Hypochromasia Poikilocytosis Anisocytosis Microcytosis Macrocytosis Tear Drop Cells Ovalocytes RBC Morph Comment Puncture Site Rt brachial ABG pH 7.28 L (7.35-7.45) ABG pCO2 76.7 H* (35.0-45.0) mmHg ABG pO2 75.0 L (80.0-100.0) mmHg ABG HCO3 34.9 H (22.0-26.0) meq/L ABG O2 Saturation 95.6 L (96.0-97.0) % ABG Base Excess 6.1 H (-2-2.0) A-a Gradient 59 mmHg O2 Delivery Device Cannula Oxygen Flow Rate 4.0 FiO2 36.00 (21.00-100.00) % Sodium (136-145) mEq/L Potassium (3.5-5.1) mEq/L Chloride (98-107) mEq/L Carbon Dioxide (21-32) mEq/L Anion Gap (5-15) BUN (7-18) mg/dL Creatinine (0.55-1.02) mg/dL Est Cr Clr Drug Dosing mL/min Estimated GFR (MDRD) (>60) mL/min BUN/Creatinine Ratio (14-18) Glucose (74-106) mg/dL Calcium (8.5-10.1) mg/dL Magnesium (1.8-2.4) mg/dl Total Bilirubin (0.2-1.0) mg/dL AST (15-37) U/L ALT (14-59) U/L Alkaline Phosphatase (46-116) U/L Troponin I (0.00-0.056) ng/mL C-Reactive Protein (<1.0) mg/dL Total Protein (6.4-8.2) g/dl Albumin (3.4-5.0) g/dl Globulin gm/dL Albumin/Globulin Ratio (1-2) - Re-Assessments/Exams Free Text/Narrative Re-Assessment/Exam: Ordered Haldol 5 mg IM, Benadryl 50 mg IM, and Toradol 30 mg IM. Patient is requesting Ativan injection. Will hold off on administering Ativan until he other medications at times to effect. 2324 reassessment, patient states symptoms are not improving with the Ativan. Headache has slightly improved with the above therapies. States her respiratory status is worsening. She remains tachycardic 95% on room air with prolonged expiration and increased respiratory rate. I offered to place the patient on BiPAP and she agreed. I ordered BiPAP, ABG, CBC, chem 14, CXR, CRP, troponin, prednisone 40 mg by mouth, magnesium 2 grams IV, and albuterol 2.5 mg neb treatment. 01/26/18 23:40 Reassessment, patient 6 headache as completely resolved. Heart rates in the 114. SPO2 is 97% on nasal cannula. Anxiety is improving with the above therapies. She requests BiPAP still. 2325 reassessment, patient states symptoms are not improving with the Ativan. Headache has slightly improved with the above therapies. States her respiratory status is worsening. She remains tachycardic 95% on room air with prolonged expiration and increased respiratory rate. I offered to place the patient on BiPAP and she agreed. I ordered BiPAP, ABG, CBC, chem 14, CRP, troponin, prednisone 40 mg by mouth, magnesium 2 grams IV, and albuterol 2.5 mg neb treatment. Reviewed previous ED visit 12/26/2017 patient was admitted for COPD exacerbation. ABG reviewed: PH 7.28, PCO2 76.7, PO2 75, HCO3 34.9, O2 95.6, base excess of 6.1. 1204 Per nursing staff patient refused breathing treatment and BIPAP. I spoke with the patient and she has decided to have the BIPAP. She continues to refuse albuterol neb treatment. CXR reviewed with Dr. Rojas. No findings concerning for pneumonia and or pneumothorax. COPD changes noted. Labs reviewed: Labs reviewed: White blood cell count 10.28, hemoglobin 12.4, differential is pending. Sodium 140, potassium 3.3, creatinine 0.9, glucose 117 , Troponin <0.017, and CRP <0.2. 01/27/18 00:18 Patient is not tolerating the BIPAP. Spoke with Dr. Mcclure hotel controller hospitalists. Requests patient be transported to [facility] for fear if intubated would be difficult to extubate. Patient is okay with transport to [facility].Will arrange transport. 01/27/18 00:31 I did speak with the patient again. She does not want to go to [facility]. I did get the patient up to walk and she was unsteady on her feet due to the benadryl and ativan. Patient just wants to go home. I spoke with Dr. Rojas. Once patient is feeling more steady on her feet will go home. Patient agrees with plan. Discussed ordering D-Dimer due to tachycardia and sob with Dr. Rojas. Cause of the tachycardia and shortness of breath is related to COPD exacerbation. Highly unlikely related to a PE. Will hold off at this time. EKG has been ordered and pending. Dr. Rojas will assume care since it is my end of shift. Departure - Departure Time of Disposition: 08:15 - My Orders Last 24 Hours: My Active Orders 01/26/18 23:24 RT Aerosol Therapy [RC] ASDIRECTED RT BiPAP/CPAP [RC] ASDIRECTED 01/26/18 23:27 Peripheral IV Care [RC] . DIRECTED Peripheral IV Insertion Adult [OM.PC] Routine 01/27/18 00:35 EKG 12 Lead [EKG Documentation Completion] [RC] STAT - Assessment/Plan Last 24 Hours: My Active Orders 01/26/18 23:24 RT Aerosol Therapy [RC] ASDIRECTED RT BiPAP/CPAP [RC] ASDIRECTED 01/26/18 23:27 Peripheral IV Care [RC] . DIRECTED Peripheral IV Insertion Adult [OM.PC] Routine 01/27/18 00:35 EKG 12 Lead [EKG Documentation Completion] [RC] STAT
[2018-01-26] MEDS ORDERED: LORazepam 2 MG/ML SDV IM ONE (23:00)
[2018-01-26] MEDS ORDERED: predniSONE 20 MG Tab PO ONE (23:24)
[2018-01-26] MEDS ORDERED: Albuterol 0.083% 2.5 MG/3 ML Neb Soln NEB ONE (23:24)
[2018-01-26] MEDS ORDERED: Magnesium Sulfate/Water 2 GM in Premix Bag 1 BAG IV ONE (23:26)
[2018-01-26] MEDS ORDERED: Sodium Chloride 0.9% 10 ML Syringe FLUSH PRN (23:27)
[2018-01-27] MEDS ORDERED: LORazepam 2 MG/ML SDV IVPUSH ONE ×2 (01:04→01:57)
[2018-01-27] MEDS ORDERED: HYDROmorphone 0.5 MG/0.5 ML SYRINGE IVPUSH ONE (02:30)
--- NOTE | 2018-01-27 06:58 | CR ---
Chest: Frontal view of the chest was obtained. Comparison: Prior chest x-ray of 12/29/17. Heart size and mediastinum are within normal limits. Main pulmonary arteries are slightly increased in size which appear stable. Lungs are hyperinflated compatible with emphysematous change. No acute parenchymal changes seen. Right shoulder prosthesis is seen. Bony structures are osteopenic. Impression: 1. Emphysematous change. Other incidental findings. Nothing acute is seen. Diagnostic code #2
== END 2018-01-27 08:15 | disposition home or self-care (01) ==
LOC: JD.ED 21:54
DX: J43.1 Panlobular emphysema (principal); G44.1 Vascular headache, not elsewhere classified; I10 Essential (primary) hypertension; Z87.891 Personal history of nicotine dependence; Z79.899 Other long term (current) drug therapy
CPT/HCPCS: 36415; 36600; 71045; 80053; 82803; 83735; 84484; 85025; 86140; 93005; 94660; 96365; 96366; 96372; 96375; 99285; A9270; J1170; J1200; J1630; J1885; J2060; J7050; 93010; 99284; J3475

== ENCOUNTER 2018-02-26 00:42 | Emergency (ER) | payer MEDICAID ==
[2018-02-26 00:47] VITALS: BP 171/111
[2018-02-26] MEDS ORDERED: methylPREDNISolone Sodium Succinate 125 MG/2 ML SDV IVPUSH ONE (00:49)
[2018-02-26] MEDS ORDERED: LORazepam 2 MG/ML SDV IVPUSH ONE (00:50)
[2018-02-26] MEDS ORDERED: Albuterol/Ipratropium 3.0-0.5 MG/3 ML Neb Soln NEB ONE (00:50)
--- NOTE | 2018-02-26 01:05 | EDM.PDOC ---
ED HPI GENERAL MEDICAL PROBLEM - General Chief Complaint: Respiratory Problem Stated Complaint: [facility] Time Seen by Provider: 02/26/18 00:49 Source of Information: Reports: Patient History Limitations: Reports: No Limitations, Respiratory Distress - History of Present Illness INITIAL COMMENTS - FREE TEXT/NARRATIVE: This is a 52-year-old female. She states 2 days ago she began having some shortness of breath. She states she frequently has episodes of being short of breath because she has severe COPD. She is on 4 L of oxygen by nasal cannula at home with a pulse ox that runs 92-94%. Tonight apparently she got very anxious which happens when she gets short of breath and she called the ambulance. She also states she had increased wheezing this evening. When they arrived her pulse ox was 92-94% but they put her on a nonrebreather and the pulse ox went up to 99%. When she arrives to the ER she is mildly short of breath but she is able to speak pretty much full sentences. She also complains of being anxious. She tells me she is going to be on the transplant list in [place] and so she is being very careful with what she does. She denies any recent illnesses no colds no cough no fever no chills no nausea or vomiting. She does state however that her grandchildren have been having some colds and she is been around them. - Related Data Allergies Allergy/AdvReac Type Severity Reaction Status Date / Time No Known Allergies Allergy Verified 01/26/18 22:15 Home Meds: Home Meds Budesonide/Formoterol Fumarate [Symbicort 80-4.5 Mcg Inhaler] 2 puff IH BID [History] Triamterene/Hydrochlorothiazid [Triamterene-HCTZ 37.5-25 MG] 1 each PO DAILY # 30 capsule 04/23/17 [Rx] Mirtazapine [Remeron] 30 mg PO BEDTIME 08/11/17 [History] QUEtiapine Fumarate [Seroquel] 50 mg PO BEDTIME 08/11/17 [History] ALPRAZolam [Xanax] 1 mg PO TID 10/11/17 [History] Albuterol [Proair HFA] 2 puff INH Q4HR PRN 12/01/17 [History] Hydrocodone/Acetaminophen [Hydrocodon-Acetaminophn 10-325] 1 tab PO Q6H PRN [History] Magnesium Oxide 400 mg PO DAILY #30 tablet 12/31/17 [Rx] guaiFENesin [Mucinex] 1,200 mg PO BID #30 tab.er 12/31/17 [Rx] Tiotropium [place] [Spiriva Respimat] 2 puff INH DAILY 02/26/18 [History] Past Medical History HEENT History: Reports: Impaired Vision Cardiovascular History: Reports: Hypertension Respiratory History: Reports: COPD Other Respiratory History: end stage COPD, pt is Oxygen dependent Gastrointestinal History: Reports: Colon Polyp Genitourinary History: Reports: Renal Calculus, Urinary Incontinence [employer] 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 History: Reports: Musculoskeletal History: Reports: Arthritis, Osteoporosis Other Musculoskeletal History: c/o back pain Neurological History: Reports: Migraines Psychiatric History: Reports: Anxiety, Depression Endocrine/Metabolic History: Reports: Osteoporosis Hematologic History: Reports: None - Infectious Disease History Infectious Disease History: Reports: Chicken Pox - Past Surgical History HEENT Surgical History: Reports: Oral Surgery Female Surgical History: Reports: D&C, Hysterectomy Musculoskeletal Surgical History: Reports: Shoulder Replacement Dermatological Surgical History: Reports: None Social & Family History - Family History Family Medical History: Noncontributory - Tobacco Use Smoking Status *Q: Former Smoker Used Tobacco, but Quit: Yes Month/Year Tobacco Last Used: 2016 - Caffeine Use Caffeine Use: Reports: None Other Caffeine Use: 2 - Recreational Drug Use Recreational Drug Use: No - Living Situation & Occupation Living situation: Reports: Single, Alone Occupation: Disabled ED ROS GENERAL - Review of Systems Review Of Systems: See Below Constitutional: Denies: Fever, Chills HEENT: Reports: No Symptoms Respiratory: Reports: Shortness of Breath, Wheezing. Denies: Cough Cardiovascular: Reports: No Symptoms Endocrine: Reports: No Symptoms GI/Abdominal: Denies: Abdominal Pain, Diarrhea, Nausea, Vomiting : Reports: No Symptoms Musculoskeletal: Reports: No Symptoms Skin: Reports: No Symptoms Neurological: Reports: No Symptoms Psychiatric: Reports: Anxiety Hematologic/Lymphatic: Reports: No Symptoms ED EXAM, GENERAL - Physical Exam Exam: See Below Exam Limited By: Respiratory Distress General Appearance: Alert, WD/WN, Mild Distress Eye Exam: Bilateral Eye: Normal Inspection Ears: Normal External Exam, Normal Canal, Normal TMs Nose: Normal Inspection Throat/Mouth: Normal Inspection, Normal Lips, Normal Voice Head: Normocephalic Neck: Supple Respiratory/Chest: Other (She has decreased breath sounds in the bases bilaterally I can basically hear them in the apexes only, she is noted to have some expiratory wheezing, she uses her assess for a muscles and she has to sit upright almost in a tripod position at this time) Cardiovascular: Regular Rate, Rhythm, No Murmur, Tachycardia GI/Abdominal: Soft Back Exam: Normal Inspection Extremities: Normal Inspection Neurological: Alert. No: Confused, Disoriented Psychiatric: Anxious Skin Exam: Warm, Dry Course - Vital Signs Last Recorded V/S: Last Vital Signs Temp 98.0 F 02/26/18 00:44 Pulse 105 H 02/26/18 00:44 Resp 24 H 02/26/18 00:44 BP 171/111 H 02/26/18 00:44 Pulse Ox 93 L 02/26/18 00:55 - Orders/Labs/Meds Orders: Active Orders 24 hr Category Date Time Status RT Aerosol Therapy [RC] ASDIRECTED Care 02/26/18 00:50 Active Chest 2V [CR] Stat Exams 02/26/18 00:51 Taken Labs: Laboratory Tests 02/26/18 02/26/18 Range/Units 01:16 01:16 WBC 8.69 (3.98-10.04) K/mm3 RBC 4.43 (3.98-5.22) M/mm3 Hgb 12.0 (11.2-15.7) gm/L Hct 36.5 (34.1-44.9) % MCV 82.4 (79.4-94.8) fl MCH 27.1 (25.6-32.2) pg MCHC 32.9 (32.2-35.5) g/dl RDW Std Deviation 39.7 (36.4-46.3) fL Plt Count 189 (182-369) K/mm3 MPV 10.5 (9.4-12.3) fl Neut % (Auto) 63.8 (34.0-71.1) % Lymph % (Auto) 21.6 (19.3-51.7) % [place] % (Auto) 9.7 (4.7-12.5) % Eos % (Auto) 4.5 (0.7-5.8) Baso % (Auto) 0.2 (0.1-1.2) % Neut # (Auto) 5.54 (1.56-6.13) K/mm3 Lymph # (Auto) 1.88 (1.18-3.74) K/mm3 [place] # (Auto) 0.84 H (0.24-0.36) K/mm3 Eos # (Auto) 0.39 H (0.04-0.36) K/mm3 Baso # (Auto) 0.02 (0.01-0.08) K/mm3 Sodium 140 (136-145) mEq/L Potassium 3.4 L (3.5-5.1) mEq/L Chloride 100 (98-107) mEq/L Carbon Dioxide 34 H (21-32) mEq/L Anion Gap 9.4 (5-15) BUN 9 (7-18) mg/dL Creatinine 0.8 (0.55-1.02) mg/dL Est Cr Clr Drug Dosing TNP Estimated GFR (MDRD) > 60 (>60) mL/min BUN/Creatinine Ratio 11.3 L (14-18) Glucose 106 (74-106) mg/dL Calcium 9.1 (8.5-10.1) mg/dL Total Bilirubin 0.2 (0.2-1.0) mg/dL AST 23 (15-37) U/L ALT 31 (14-59) U/L Alkaline Phosphatase 71 (46-116) U/L Total Protein 6.9 (6.4-8.2) g/dl Albumin 3.5 (3.4-5.0) g/dl Globulin 3.4 gm/dL Albumin/Globulin Ratio 1.0 (1-2) Meds: Medications Discontinued Medications Generic Name Dose Route Start Last Admin Trade Name Freq PRN Reason Stop Dose Admin Albuterol/Ipratropium 3 ml 02/26/18 00:50 02/26/18 00:59 Duoneb 3.0-0.5 Mg/3 Ml NEB 02/26/18 00:51 3 ml ONETIME ONE Administration Ketorolac Tromethamine 30 mg 02/26/18 01:36 02/26/18 01:40 Toradol IVPUSH 02/26/18 01:37 30 mg ONETIME ONE Administration Lorazepam 0.5 mg 02/26/18 00:50 05/19/18 01:18 Ativan IVPUSH 02/26/18 00:51 0.5 mg ONETIME ONE Administration Methylprednisolone Sodium Succinate 125 mg 02/26/18 00:49 02/26/18 01:18 Solu-Medrol IVPUSH 02/26/18 00:50 125 mg ONETIME ONE Administration - Radiology Interpretation Free Text/Narrative:: Chest x-ray shows severe COPD emphysematous-type lungs but no acute infiltrates - Re-Assessments/Exams Free Text/Narrative Re-Assessment/Exam: 02/26/18 02:21 Patient is doing better and she called her son and she wants to go home. I did give her some Ativan and some Toradol because she was complaining of muscle soreness from her breathing. She kept asking for narcotics for the pain and I have told her no multiple times since I do not want to interfere with her breathing. 02/26/18 02:25 I let the patient notes that her chest x-ray did not show any acute infiltrates and that her blood work was essentially normal. She does have pain medication and anxiety medication and nebulizer medication at home and I have encouraged her to take it when she needs it. Departure - Departure Time of Disposition: 02:22 Disposition: Home, Self-Care 01 Condition: Poor Clinical Impression: End stage COPD, Respiratory distress - Discharge Information Referrals: Liza Fernandez [employer] [Primary Care Provider] - Forms: ED Department Discharge Additional Instructions: Continue with your nebulizer treatments as needed for your breathing, continue with your home oxygen as before, take your pain medicines that you have at home and your medicine for anxiety, follow-up with your family doctor this week for recheck, return to the ER if her symptoms worsen - My Orders Last 24 Hours: My Active Orders 02/26/18 00:50 RT Aerosol Therapy [RC] ASDIRECTED 02/26/18 00:51 Chest 2V [CR] Stat - Assessment/Plan Last 24 Hours: My Active Orders 02/26/18 00:50 RT Aerosol Therapy [RC] ASDIRECTED 02/26/18 00:51 Chest 2V [CR] Stat
[2018-02-26] MEDS ORDERED: Ketorolac 30 MG/ML SDV IVPUSH ONE (01:36)
--- NOTE | 2018-02-28 08:31 | CR ---
Chest: Two views of the chest were obtained. Comparison: Prior chest x-ray of 01/26/18. Heart size and mediastinum are normal. Lungs are clear but hyperinflated. Right shoulder prosthesis is seen. Diaphragms are flattened compatible with emphysematous change. Impression: 1. Emphysematous change. Nothing acute is otherwise seen on two-view chest x-ray. Diagnostic code #2
== END 2018-02-26 02:35 | disposition home or self-care (01) ==
LOC: JD.ED 00:42
DX: J44.9 Chronic obstructive pulmonary disease, unspecified (principal); I10 Essential (primary) hypertension; Z79.899 Other long term (current) drug therapy; Z87.891 Personal history of nicotine dependence
CPT/HCPCS: 36415; 71046; 80053; 85025; 94640; 96374; 96375; 99285; J1885; J2060; J2930

== ENCOUNTER 2018-03-27 11:10 | Emergency (ER) | payer MEDICAID, SELFPAY ==
[2018-03-27 11:19] VITALS: BP 154/110
--- NOTE | 2018-03-27 11:21 | EDM.PDOC ---
ED HPI GENERAL MEDICAL PROBLEM - General Chief Complaint: Respiratory Problem Stated Complaint: [facility] Time Seen by Provider: 03/27/18 11:21 Source of Information: Reports: Patient History Limitations: Reports: No Limitations - History of Present Illness INITIAL COMMENTS - FREE TEXT/NARRATIVE: 52-year-old female presents to the ED per [facility]. She has a 3-4 day history of feeling increasingly unwell. She has fever and chills particular the last 2 nights. Productive cough of greenish material. Also noted some blood periodically. Patient has known COPD and is on 5 L of oxygen per minute most of the time sometimes 4 liters. She has not eaten much at all for the last 2 days. Clinically she is warm to palpation. She is much more short of breath than normal. States she continues to cough and was up most of the night coughing. Does have central chest pain because of coughing so much. Onset: Gradual Onset Date: 03/24/18 Duration: Day(s):, Getting Worse Location: Reports: Chest Quality: Reports: Ache, Other Severity: Moderate (Paroxysmal productive cough with associated fever and chills 3 days) Improves with: Reports: None Worsens with: Reports: Other Context: Denies: Activity (Lying down.), Exercise, Lifting, Sick Contact, Trauma , Other Associated Symptoms: Reports: Chest Pain, Cough (From coughing so much), cough w sputum, Fever/Chills, Loss of Appetite, Malaise, Weakness. Denies: Confusion , Diaphoresis (Any sputum with occasional blood noted.), Headaches, Nausea/ Vomiting Treatments TEAR DOWN MAN: Reports: Other (see below) Other Treatments TEAR DOWN MAN: nebulizer Chest Pain Score (Numeric/FACES): 9 - Related Data Allergies Allergy/AdvReac Type Severity Reaction Status Date / Time No Known Allergies Allergy Verified 03/27/18 11:14 Home Meds: Home Meds Budesonide/Formoterol Fumarate [Symbicort 80-4.5 Mcg Inhaler] 2 puff IH BID [History] Triamterene/Hydrochlorothiazid [Triamterene-HCTZ 37.5-25 MG] 1 each PO DAILY # 30 capsule 04/23/17 [Rx] Mirtazapine [Remeron] 30 mg PO BEDTIME 08/11/17 [History] QUEtiapine Fumarate [Seroquel] 50 mg PO BEDTIME 08/11/17 [History] ALPRAZolam [Xanax] 1 mg PO TID 10/11/17 [History] Albuterol [Proair HFA] 2 puff INH Q4HR PRN 12/01/17 [History] Hydrocodone/Acetaminophen [Hydrocodon-Acetaminophn 10-325] 1 tab PO Q6H PRN [History] Magnesium Oxide 400 mg PO DAILY #30 tablet 12/31/17 [Rx] guaiFENesin [Mucinex] 1,200 mg PO BID #30 tab.er 12/31/17 [Rx] Tiotropium [place] [Spiriva Respimat] 2 puff INH DAILY 02/26/18 [History] Past Medical History HEENT History: Reports: Impaired Vision Cardiovascular History: Reports: Hypertension Respiratory History: Reports: COPD Other Respiratory History: end stage COPD, pt is Oxygen dependent Gastrointestinal History: Reports: Colon Polyp Genitourinary History: Reports: Renal Calculus, Urinary Incontinence [employer]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: Musculoskeletal History: Reports: Arthritis, Osteoporosis Other Musculoskeletal History: c/o back pain Neurological History: Reports: Migraines Psychiatric History: Reports: Anxiety, Depression Endocrine/Metabolic History: Reports: Osteoporosis Hematologic History: Reports: None - Infectious Disease History Infectious Disease History: Reports: Chicken Pox - Past Surgical History HEENT Surgical History: Reports: Oral Surgery Female Surgical History: Reports: D&C, Hysterectomy Musculoskeletal Surgical History: Reports: Shoulder Replacement Dermatological Surgical History: Reports: None Social & Family History - Family History Family Medical History: Noncontributory - Tobacco Use Smoking Status *Q: Former Smoker Years of Tobacco use: 30 Packs/Tins Daily: 0.5 Used Tobacco, but Quit: Yes Month/Year Tobacco Last Used: 2017 - Caffeine Use Caffeine Use: Reports: None Other Caffeine Use: 2 - Living Situation & Occupation Living situation: Reports: Single, Alone Occupation: Disabled ED ROS GENERAL - Review of Systems Review Of Systems: See Below Constitutional: Reports: Fever, Chills, Malaise, Weakness, Fatigue, Night Sweats , Diaphoresis, Decreased Appetite, Weight Loss HEENT: Denies: Ear Pain, Eye Discharge, Glasses, Hearing Loss, Nosebleed, Nose Pain, Rhinitis Respiratory: Reports: Shortness of Breath, Wheezing, Cough, Sputum, Hemoptysis ( Greenish). Denies: Pleuritic Chest Pain Cardiovascular: Reports: Chest Pain ( him times some blood with coughing so hard from cough), Blood Pressure Problem, Dyspnea on Exertion (Chronically.), Lightheadedness. Denies: Claudication, Edema, Orthopnea Endocrine: Reports: Fatigue GI/Abdominal: Reports: Constipation, Decreased Appetite : Reports: No Symptoms (Suspicious sometimes issues with constipation) Musculoskeletal: Reports: Back Pain Skin: Reports: No Symptoms Neurological: Reports: No Symptoms Psychiatric: Reports: No Symptoms Hematologic/Lymphatic: Reports: No Symptoms Immunologic: Reports: No Symptoms ED EXAM, GENERAL - Physical Exam Exam: See Below Exam Limited By: No Limitations General Appearance: Alert, WD/WN, Moderate Distress (Moderate respiratory distress. O2 sats 89% on 4 L/m. Increased to 5 L/m.) Eye Exam: Right Eye: Normal Inspection (No jaundice.) Ears: Normal TMs Throat/Mouth: Other. No: Normal Teeth, Normal Gums Head: Atraumatic, Normocephalic Neck: Normal Inspection, Supple, Non-Tender, Full Range of Motion. No: Carotid Bruit, Lymphadenopathy (L), Lymphadenopathy (R), Thyromegaly Respiratory/Chest: Respiratory Distress (Tachypnea 24-28/m.), Decreased Breath Sounds, Rhonchi (Decreased breath sounds to the lower 35% of lung knight.), Wheezing (Scattered rhonchi all lobes. Wheezing). No: Normal Breath Sounds, Rales ( primarily from lung bases.) Cardiovascular: No Edema (Tachycardia at rest 1 30/m.), No Gallop, No Murmur, No Rub, Tachycardia Peripheral Pulses: 1+: Posterior Tibial (L), Posterior Tibial (R), Dorsalis Pedis (L), Dorsalis Pedis (R) GI/Abdominal: Soft (Tender to percussion the upper abdomen compatible some aerophagia.), Non-Tender, No Organomegaly, Distended, Abnormal Bowel Sounds ( Mildly hyperactive bowel sounds throughout.). No: Guarding, Rebound, Tender Back Exam: Other. No: CVA Tenderness (L), CVA Tenderness (R) (Mild kyphosis thoracic spine.) Extremities: Normal Inspection, Normal Range of Motion, Non-Tender, No Pedal Edema Neurological: Alert, Oriented, CN II-XII Intact, Normal Cognition Psychiatric: Anxious (Extremely anxious.) Skin Exam: Warm, Dry, Intact, Normal Color, No Rash EKG INTERPRETATION EKG Date: 03/27/18 Time: 12:05 Rhythm: Other (Occasional PACs.) Rate (Beats/Min): 122 [place]: Normal P-Wave: Enlarged (Left atrial hypertrophy pattern.) QRS: Other (Mildly decreased voltage in the precordial leads.) ST-T: Other (There is a diffuse repolarization abnormalities skin the baseline inferiorly. No true ischemic changes identified) QT: Normal EKG Interpretation Comments: Abnormal ECG Course - Vital Signs Last Recorded V/S: Last Vital Signs Temp 37.4 C 03/27/18 11:14 Pulse 130 H 03/27/18 11:14 Resp 24 H 03/27/18 11:14 BP 154/110 H 03/27/18 11:14 Pulse Ox 94 L 03/27/18 11:35 - Orders/Labs/Meds Orders: Active Orders 24 hr Category Date Time Status EKG Documentation Completion [RC] STAT Care 03/27/18 11:26 Active Oxygen Therapy [RC] ASDIRECTED Care 03/27/18 11:26 Active RT Aerosol Therapy [RC] ASDIRECTED Care 03/27/18 11:25 Active Chest 1V Frontal [CR] Stat Exams 03/27/18 11:25 Taken ABG [BLOOD GAS ARTERIAL] [BG] Stat Lab 03/27/18 11:26 Ordered CULTURE BLOOD [BC] Stat Lab 03/27/18 11:53 Received CULTURE BLOOD [BC] Stat Lab 03/27/18 12:02 Received Dextrose 5%-0.9% NaCl [Dextrose 5%-Normal Saline] 1,000 Med 03/27/18 11:30 Active ml IV ASDIRECTED LORazepam [Ativan] Med 03/27/18 14:35 Once 1 mg IVPUSH ONETIME ONE Magnesium Sulfate/Water [Magnesium Sulfate 2 GM in Med 03/27/18 12:55 Active Water 50 ML] 2 gm Premix Bag 1 bag IV ONETIME Sodium Chloride 0.9% [Normal Saline] 1,000 ml Med 03/27/18 14:45 Active IV ASDIRECTED Blood Culture x2 Reflex Set [OM.PC] Stat Oth 03/27/18 11:27 Ordered Medication Orders Dextrose/Sodium Chloride (Dextrose 5%-Normal Saline) 1,000 mls @ 150 mls/hr IV ASDIRECTED SHAUN Last Admin: 03/27/18 11:38 Dose: 150 mls/hr Magnesium Sulfate 2 gm/ Premix 50 mls @ 25 mls/hr IV ONETIME ONE Stop: 03/27/18 14:54 Sodium Chloride (Normal Saline) 1,000 mls @ 75 mls/hr IV ASDIRECTED [facility] Labs: Laboratory Tests 03/27/18 03/27/18 03/27/18 Range/Units 11:53 11:53 11:53 WBC 15.94 H (3.98-10.04) K/mm3 RBC 5.14 (3.98-5.22) M/mm3 Hgb 13.8 (11.2-15.7) gm/L Hct 41.4 (34.1-44.9) % MCV 80.5 (79.4-94.8) fl MCH 26.8 (25.6-32.2) pg MCHC 33.3 (32.2-35.5) g/dl RDW Std Deviation 39.4 (36.4-46.3) fL Plt Count 196 (182-369) K/mm3 MPV 10.6 (9.4-12.3) fl Neutrophils % (Manual) 34 L (40-60) % Band Neutrophils % 33 H (0-10) % Lymphocytes % (Manual) 22 (20-40) % Atypical Lymphs % 0 % Monocytes % (Manual) 11 H (2-10) % Eosinophils % (Manual) 0 L (0.7-5.8) % Basophils % (Manual) 0 L (0.1-1.2) Differential Comment See note Toxic Granulation 1+ slight Dohle Bodies Few Platelet Estimate Adequate RBC Morph Comment Normal PT 11.9 (9.5-12.1) SECONDS INR 1.09 Sodium 137 (136-145) mEq/L Potassium 3.2 L (3.5-5.1) mEq/L Chloride 99 (98-107) mEq/L Carbon Dioxide 33 H (21-32) mEq/L Anion Gap 8.2 (5-15) BUN 10 (7-18) mg/dL Creatinine 0.9 (0.55-1.02) mg/dL Est Cr Clr Drug Dosing 59.53 mL/min Estimated GFR (MDRD) > 60 (>60) mL/min BUN/Creatinine Ratio 11.1 L (14-18) Glucose 143 H (74-106) mg/dL Lactic Acid (0.4-2.0) mmol/L Calcium 9.4 (8.5-10.1) mg/dL Magnesium 1.5 L (1.8-2.4) mg/dl Total Bilirubin 0.6 (0.2-1.0) mg/dL AST 17 (15-37) U/L ALT 30 (14-59) U/L Alkaline Phosphatase 84 (46-116) U/L Troponin I < 0.017 (0.00-0.056) ng/mL C-Reactive Protein 29.6 H* (<1.0) mg/dL NT-Pro-B Natriuret Pep (0-125) pg/mL Total Protein 7.6 (6.4-8.2) g/dl Albumin 3.5 (3.4-5.0) g/dl Globulin 4.1 gm/dL Albumin/Globulin Ratio 0.9 L (1-2) 03/27/18 03/27/18 Range/Units 11:53 11:53 WBC (3.98-10.04) K/mm3 RBC (3.98-5.22) M/mm3 Hgb (11.2-15.7) gm/L Hct (34.1-44.9) % MCV (79.4-94.8) fl MCH (25.6-32.2) pg MCHC (32.2-35.5) g/dl RDW Std Deviation (36.4-46.3) fL Plt Count (182-369) K/mm3 MPV (9.4-12.3) fl Neutrophils % (Manual) (40-60) % Band Neutrophils % (0-10) % Lymphocytes % (Manual) (20-40) % Atypical Lymphs % % Monocytes % (Manual) (2-10) % Eosinophils % (Manual) (0.7-5.8) % Basophils % (Manual) (0.1-1.2) Differential Comment Toxic Granulation Dohle Bodies Platelet Estimate RBC Morph Comment PT (9.5-12.1) SECONDS INR Sodium (136-145) mEq/L Potassium (3.5-5.1) mEq/L Chloride (98-107) mEq/L Carbon Dioxide (21-32) mEq/L Anion Gap (5-15) BUN (7-18) mg/dL Creatinine (0.55-1.02) mg/dL Est Cr Clr Drug Dosing mL/min Estimated GFR (MDRD) (>60) mL/min BUN/Creatinine Ratio (14-18) Glucose (74-106) mg/dL Lactic Acid 1.3 (0.4-2.0) mmol/L Calcium (8.5-10.1) mg/dL Magnesium (1.8-2.4) mg/dl Total Bilirubin (0.2-1.0) mg/dL AST (15-37) U/L ALT (14-59) U/L Alkaline Phosphatase (46-116) U/L Troponin I (0.00-0.056) ng/mL C-Reactive Protein (<1.0) mg/dL NT-Pro-B Natriuret Pep 730 H (0-125) pg/mL Total Protein (6.4-8.2) g/dl Albumin (3.4-5.0) g/dl Globulin gm/dL Albumin/Globulin Ratio (1-2) Meds: Medications Generic Name Dose Route Start Last Admin Trade Name Freq PRN Reason Stop Dose Admin Dextrose/Sodium Chloride 1,000 mls @ 150 mls/hr 03/27/18 11:30 03/27/18 11:38 Dextrose 5%-Normal Saline IV 150 mls/hr ASDIRECTED SHAUN Administration Magnesium Sulfate 2 gm/ Premix 50 mls @ 25 mls/hr 03/27/18 12:55 IV 03/27/18 14:54 ONETIME ONE Sodium Chloride 1,000 mls @ 75 mls/hr 03/27/18 14:45 Normal Saline IV ASDIRECTED SHAUN Discontinued Medications Generic Name Dose Route Start Last Admin Trade Name Freq PRN Reason Stop Dose Admin Acetaminophen 975 mg 03/27/18 11:30 03/27/18 11:58 Tylenol PO 03/27/18 11:31 975 mg ONETIME ONE Administration Albuterol/Ipratropium 3 ml 03/27/18 11:25 03/27/18 11:35 Duoneb 3.0-0.5 Mg/3 Ml NEB 03/27/18 11:26 3 ml ONETIME ONE Administration Furosemide 40 mg 03/27/18 14:22 03/27/18 14:27 Lasix IVPUSH 03/27/18 14:23 40 mg NOW ONE Administration Hydromorphone HCl 0.5 mg 03/27/18 11:58 03/27/18 12:03 Dilaudid IVPUSH 03/27/18 11:59 0.5 mg ONETIME ONE Administration Hydromorphone HCl 0.5 mg 03/27/18 13:07 03/27/18 13:21 Dilaudid IVPUSH 03/27/18 13:08 0.5 mg ONETIME ONE Administration Levofloxacin/Dextrose 750 mg/ 150 mls @ 100 mls/hr 03/27/18 12:08 03/27/18 12 :25 Premix IV 03/27/18 13:37 100 mls/hr ONETIME ONE Administration Sodium Chloride Confirm 03/27/18 14:27 Normal Saline Administered 03/27/18 14:28 Dose 1,000 mls @ as directed .ROUTE .STK-MED ONE Lorazepam 1 mg 03/27/18 11:25 03/27/18 11:38 Ativan IVPUSH 03/27/18 11:26 1 mg ONETIME ONE Administration Methylprednisolone Sodium Succinate 125 mg 03/27/18 12:03 03/27/18 12:09 Solu-Medrol IVPUSH 03/27/18 12:04 125 mg ONETIME ONE Administration - Radiology Interpretation Free Text/Narrative:: 52-year-old female presents to the ED with an acute exacerbation of COPD with suspect infective process. She is febrile on examination. She says reports chills with rigors last 2 nights. Infection seems to come on over the last 3 days. Sputum is greenish in color with some bright red blood with severe coughing. She is currently on 5 L of oxygen per nasal cannula to maintain O2 sats of 90-93%. Resting tachycardia at 1 30/m. Plan septic workup to be done. We 'll give her a DuoNeb treatment at this time. We'll hold off on steroids until I see her chest x-ray and if she has significant pneumonia. IV will be D5 normal saline at 150 mils per hour. Given Tylenol 975 mg for fever relief per ora. At this time oxygen will be dictated 5 L/m per nasal specks. ABGs to be done. - Re-Assessments/Exams Free Text/Narrative Re-Assessment/Exam: 03/27/18 11:59 patient is requesting analgesia due to generalized body aches and pains. Will give Dilaudid 0.5 mg IV. 03/27/18 12:01 portal chest x-ray reveals hyperinflated lung knight bilaterally. Prominent pulmonary arteries bilaterally with suspect pulmonary hypertension. Cardiac silhouette is within normal limits. There is perhaps mild increased diffuse vascular congestion pattern. No definitive pneumonia. No pneumothorax. Respiratory therapist states she tried 3 times to obtain blood gases failed. Therefore this test will be canceled. Will go ahead and give her Solu-Medrol 125 mg IV as well ,since there is no definitive pneumonia 03/27/18 12:54 Labs are back. Total white count is elevated at 15.94. This shows 34% neutrophils but N [place] 33%. Lymphocytes 22%. Troponin is 13.8 with hematocrit of 41.4. Platelet count is 196,000. PT is 11.9 with an INR 1.09. Sodium 137 potassium slightly low at 3.2. Chloride is 99 with a bicarbonate 33. And a gap is 8.2. BUN is 10 with a creatinine of 0.9. EGFR is greater than 60. Glucose is 143. Lactic acid normal at 1.3. Calcium 9.4. Magnesium slightly low at 1.5. Total bilirubin 0.6. Liver function otherwise normal. Troponin I is less than 0.017. C-reactive protein is pending. BNP is mildly elevated at 730. Patient will be given Lasix 40 mg IV. She will be given 1 g of magnesium sulfate IV as well. 03/27/18 13:[address] Mcclure and she feels she would be better served in a larger hospital as she is likely to stay her 96 hour need here. CRP came back elevated at 29.4. She has not been able to produce any urine yet. 03/27/18 14:36 I was able to speak to hospitalist-Dr Raymond at [facility] and he has accepted care. Patient be therefore transferred by ground ambulance to that facility. [facility] She takes an extra times daily as well as narcotics for chronic pain relief. She will have her IV reduced to 75 mils per hour of normal saline and receive 2 g of magnesium sulfate intravenously en route to [place]. Departure - Departure Time of Disposition: 14:37 Disposition: DC/Tfer to Acute Hospital 02 Condition: Serious Clinical Impression: End stage chronic obstructive pulmonary disease, Hypoxia, Acute febrile illness , Pneumonitis, Hypomagnesemia, Hypokalemia, CHF (congestive heart failure) Sepsis Qualifiers: Sepsis type: sepsis due to unspecified organism Qualified Code(s): A41.9 - Sepsis, unspecified organism - Discharge Information Referrals: Liza Fernandez, [employer] [Primary Care Provider] - Forms: ED Department Discharge - My Orders Last 24 Hours: My Active Orders 03/27/18 11:25 RT Aerosol Therapy [RC] ASDIRECTED Chest 1V Frontal [CR] Stat 03/27/18 11:26 EKG Documentation Completion [RC] STAT Oxygen Therapy [RC] ASDIRECTED ABG [BLOOD GAS ARTERIAL] [BG] Stat 03/27/18 11:27 Blood Culture x2 Reflex Set [OM.PC] Stat 03/27/18 11:30 Dextrose 5%-0.9% NaCl [Dextrose 5%-Normal Saline] 1,000 ml IV ASDIRECTED 03/27/18 11:53 CULTURE BLOOD [BC] Stat 03/27/18 12:02 CULTURE BLOOD [BC] Stat 03/27/18 12:55 Magnesium Sulfate/Water [Magnesium Sulfate 2 GM in Water 50 ML] 2 gm Premix Bag 1 bag IV ONETIME 03/27/18 14:35 LORazepam [Ativan] 1 mg IVPUSH ONETIME ONE 03/27/18 14:45 Sodium Chloride 0.9% [Normal Saline] 1,000 ml IV ASDIRECTED - Assessment/Plan Last 24 Hours: My Active Orders 03/27/18 11:25 RT Aerosol Therapy [RC] ASDIRECTED Chest 1V Frontal [CR] Stat 03/27/18 11:26 EKG Documentation Completion [RC] STAT Oxygen Therapy [RC] ASDIRECTED ABG [BLOOD GAS ARTERIAL] [BG] Stat 03/27/18 11:27 Blood Culture x2 Reflex Set [OM.PC] Stat 03/27/18 11:30 Dextrose 5%-0.9% NaCl [Dextrose 5%-Normal Saline] 1,000 ml IV ASDIRECTED 03/27/18 11:53 CULTURE BLOOD [BC] Stat 03/27/18 12:02 CULTURE BLOOD [BC] Stat 03/27/18 12:55 Magnesium Sulfate/Water [Magnesium Sulfate 2 GM in Water 50 ML] 2 gm Premix Bag 1 bag IV ONETIME 03/27/18 14:35 LORazepam [Ativan] 1 mg IVPUSH ONETIME ONE 03/27/18 14:45 Sodium Chloride 0.9% [Normal Saline] 1,000 ml IV ASDIRECTED
[2018-03-27] MEDS ORDERED: LORazepam 2 MG/ML SDV IVPUSH ONE ×2 (11:25→14:35)
[2018-03-27] MEDS ORDERED: Albuterol/Ipratropium 3.0-0.5 MG/3 ML Neb Soln NEB ONE (11:25)
[2018-03-27] MEDS ORDERED: Acetaminophen 325 MG Tab PO ONE (11:30)
[2018-03-27] MEDS ORDERED: Dextrose 5%-0.9% NaCl 1,000 ML IV SCH (11:30)
[2018-03-27] MEDS ORDERED: HYDROmorphone 0.5 MG/0.5 ML SYRINGE IVPUSH ONE ×2 (11:58→13:07)
[2018-03-27] MEDS ORDERED: methylPREDNISolone Sodium Succinate 125 MG/2 ML SDV IVPUSH ONE (12:03)
[2018-03-27] MEDS ORDERED: Levofloxacin/Dextrose 5%-Water 750 MG in Premix Bag 1 BAG IV ONE (12:08)
[2018-03-27] MEDS ORDERED: Magnesium Sulfate/Water 2 GM in Premix Bag 1 BAG IV ONE (12:55)
[2018-03-27] MEDS ORDERED: Furosemide 40 MG/4 ML VIAL IVPUSH ONE (14:22)
[2018-03-27] MEDS ORDERED: Sodium Chloride 0.9% 1,000 ML ONE (14:27)
[2018-03-27] MEDS ORDERED: Sodium Chloride 0.9% 1,000 ML IV SCH (14:45)
--- NOTE | 2018-03-28 07:07 | CR ---
Chest: Portable view of the chest was obtained. Comparison: Prior chest x-ray of 02/26/18. Heart size is within normal limits. Lungs are hyperinflated compatible with emphysematous change. No acute parenchymal change is seen. Right shoulder prosthesis is noted. Mild scoliosis is noted within the spine. Impression: 1. Emphysematous change. 2. Nothing acute is seen on portable chest x-ray. Diagnostic code #2
== END 2018-03-27 15:15 ==
LOC: JD.ED 11:10
DX: A41.9 Sepsis, unspecified organism (principal); J44.9 Chronic obstructive pulmonary disease, unspecified; R09.02 Hypoxemia; J18.9 Pneumonia, unspecified organism; I11.0 Hypertensive heart disease with heart failure; I50.9 Heart failure, unspecified; E83.42 Hypomagnesemia; E87.6 Hypokalemia; Z87.891 Personal history of nicotine dependence; Z79.899 Other long term (current) drug therapy
CPT/HCPCS: 36415; 71045; 80053; 81001; 83605; 83735; 83880; 84484; 85007; 85027; 85610; 86140; 87040; 93005; 94640; 96361; 96365; 96366; 96368; 96375; 96376; 99285; A9270; J1170; J1940; J1956; J2060; J2930; J7040; J7042; 93010; J3475

== ENCOUNTER 2018-04-24 16:38 | Emergency (ER) | payer MEDICAID ==
[2018-04-24] MEDS ORDERED: Sodium Chloride 0.9% 10 ML Syringe FLUSH PRN (16:50)
[2018-04-24] MEDS ORDERED: Albuterol/Ipratropium 3.0-0.5 MG/3 ML Neb Soln NEB ONE (16:50)
[2018-04-24] MEDS ORDERED: LORazepam 0.5 MG Tab PO ONE (16:51)
[2018-04-24] MEDS ORDERED: HYDROmorphone 0.5 MG/0.5 ML SYRINGE IVPUSH ONE ×2 (16:51→19:09)
[2018-04-24] MEDS ORDERED: methylPREDNISolone Sodium Succinate 125 MG/2 ML SDV IVPUSH ONE (17:02)
--- NOTE | 2018-04-24 17:02 | EDM.PDOC ---
ED HPI GENERAL MEDICAL PROBLEM - General Chief Complaint: Respiratory Problem Stated Complaint: [facility] Time Seen by Provider: 04/24/18 16:40 Source of Information: Reports: Patient, EMS, RN Notes Reviewed - History of Present Illness INITIAL COMMENTS - FREE TEXT/NARRATIVE: 52 year old female comes in with anterior chest discomfort, dyspnea, hypoxia. She does have long standing hx of COPD, has been getting more short of breath the last several days. On oxygen 4 L NC continuous. Has worsening cough at times productive of colored phlegm. No recent fever. [employer] just a few days ago. One new medication prescribed, not yet started. She did just finish tapering of of prednisone about 1 week ago. She feels anxious, also requesting medication for anterior chest discomfort. Chest Pain Score (Numeric/FACES): 4 - Related Data Allergies Allergy/AdvReac Type Severity Reaction Status Date / Time No Known Allergies Allergy Verified 03/27/18 11:14 Home Meds: Home Meds Budesonide/Formoterol Fumarate [Symbicort 80-4.5 Mcg Inhaler] 2 puff IH BID [History] Triamterene/Hydrochlorothiazid [Triamterene-HCTZ 37.5-25 MG] 1 each PO DAILY # 30 capsule 04/23/17 [Rx] Mirtazapine [Remeron] 30 mg PO BEDTIME 08/11/17 [History] QUEtiapine Fumarate [Seroquel] 50 mg PO BEDTIME 08/11/17 [History] ALPRAZolam [Xanax] 1 mg PO TID 10/11/17 [History] Albuterol [Proair HFA] 2 puff INH Q4HR PRN 12/01/17 [History] Hydrocodone/Acetaminophen [Hydrocodon-Acetaminophn 10-325] 10 - 325 mg PO Q6H PRN 12/26/17 [History] Magnesium Oxide 400 mg PO DAILY #30 tablet 12/31/17 [Rx] guaiFENesin [Mucinex] 1,200 mg PO BID #30 tab.er 12/31/17 [Rx] Metoprolol Tartrate 25 mg PO BID 04/24/18 [History] Nystatin [Mycostatin] 5 ml PO QID 04/24/18 [History] Roflumilast [Daliresp] 500 mg PO DAILY 04/24/18 [History] Tiotropium [place] [Spiriva Respimat] 5 mcg INH DAILY 04/24/18 [History] predniSONE [Prednisone] 20 mg PO DAILY #1 tablet 04/24/18 [Rx] Past Medical History HEENT History: Reports: Impaired Vision Cardiovascular History: Reports: Hypertension Respiratory History: Reports: COPD Other Respiratory History: end stage COPD, pt is Oxygen dependent Gastrointestinal History: Reports: Colon Polyp Genitourinary History: Reports: Renal Calculus, Urinary Incontinence 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: Musculoskeletal History: Reports: Arthritis, Osteoporosis Other Musculoskeletal History: c/o back pain Neurological History: Reports: Migraines Psychiatric History: Reports: Anxiety, Depression Endocrine/Metabolic History: Reports: Osteoporosis Hematologic History: Reports: None - Infectious Disease History Infectious Disease History: Reports: Chicken Pox - Past Surgical History HEENT Surgical History: Reports: Oral Surgery Female Surgical History: Reports: D&C, Hysterectomy Musculoskeletal Surgical History: Reports: Shoulder Replacement Dermatological Surgical History: Reports: None Social & Family History - Family History Family Medical History: Noncontributory - Tobacco Use Smoking Status *Q: Former Smoker Used Tobacco, but Quit: Yes Month/Year Tobacco Last Used: 1 yr - Caffeine Use Caffeine Use: Reports: Soda Other Caffeine Use: 2 - Recreational Drug Use Recreational Drug Use: No - Living Situation & Occupation Living situation: Reports: Single, Alone Occupation: Disabled ED ROS GENERAL - Review of Systems Review Of Systems: See Below Constitutional: Denies: Fever, Chills HEENT: Denies: Rhinitis, Sinus Problem, Throat Pain Respiratory: Reports: Shortness of Breath, Wheezing, Cough, Sputum Cardiovascular: Reports: Chest Pain GI/Abdominal: Denies: Abdominal Pain, Nausea, Vomiting Musculoskeletal: Denies: Shoulder Pain, Arm Pain Skin: Denies: Rash Neurological: Reports: Dizziness ED EXAM, GENERAL - Physical Exam Exam: See Below General Appearance: Alert, Anxious, Moderate Distress Eye Exam: Bilateral Eye: PERRL Nose: Normal Inspection Throat/Mouth: Normal Inspection, Normal Oropharynx Head: Atraumatic. No: Facial Swelling Neck: Supple, Full Range of Motion, Other (no JVD). No: Lymphadenopathy (L), Lymphadenopathy (R) Respiratory/Chest: Respiratory Distress (moderate tachypnea), Decreased Breath Sounds Cardiovascular: Regular Rate, Rhythm GI/Abdominal: Soft, Non-Tender Extremities: Normal Inspection. No: Normal Range of Motion, Pedal Edema, Leg Pain, Increased Warmth, Redness Neurological: Alert, Oriented, No Motor/Sensory Deficits Skin Exam: Warm, Dry, Normal Color Course - Vital Signs Last Recorded V/S: Last Vital Signs Temp 99.3 F 04/24/18 16:44 Pulse 90 04/24/18 17:30 Resp 16 04/24/18 17:30 BP 134/96 H 04/24/18 17:30 Pulse Ox 96 04/24/18 18:03 - Orders/Labs/Meds Orders: Active Orders 24 hr Category Date Time Status EKG 12 Lead [EKG Documentation Completion] [RC] STAT Care 04/24/18 16:52 Active Oxygen Therapy [RC] ASDIRECTED Care 04/24/18 16:50 Active Peripheral IV Care [RC] . DIRECTED Care 04/24/18 16:50 Active RT Aerosol Therapy [RC] ASDIRECTED Care 04/24/18 16:50 Active RT Aerosol Therapy [RC] ASDIRECTED Care 04/24/18 18:03 Active Chest 1V Frontal [CR] Stat Exams 04/24/18 16:50 Taken Ketorolac [Toradol] Med 04/24/18 18:15 Active 20 mg IVPUSH ONETIME Sodium Chloride 0.9% [Saline Flush] Med 04/24/18 16:50 Active 10 ml FLUSH ASDIRECTED PRN Peripheral IV Insertion Adult [OM.PC] Stat Oth 04/24/18 16:50 Ordered Medication Orders Ketorolac Tromethamine (Toradol) 20 mg IVPUSH ONETIME [facility] Last Admin: 04/24/18 18:17 Dose: 20 mg Sodium Chloride (Saline Flush) 10 ml FLUSH ASDIRECTED PRN PRN Reason: Keep Vein Open Last Admin: 04/24/18 17:03 Dose: 10 ml Labs: Laboratory Tests 04/24/18 04/24/18 04/24/18 Range/Units 16:52 16:58 16:58 WBC 6.02 (3.98-10.04) K/mm3 RBC 4.43 (3.98-5.22) M/mm3 Hgb 12.1 (11.2-15.7) gm/L Hct 38.7 (34.1-44.9) % MCV 87.4 (79.4-94.8) fl MCH 27.3 (25.6-32.2) pg MCHC 31.3 L (32.2-35.5) g/dl RDW Std Deviation 42.7 (36.4-46.3) fL Plt Count 253 (182-369) K/mm3 MPV 9.8 (9.4-12.3) fl Neutrophils % (Manual) 60 (40-60) % Band Neutrophils % 0 (0-10) % Lymphocytes % (Manual) 19 L (20-40) % Atypical Lymphs % 0 % Monocytes % (Manual) 18 H (2-10) % Eosinophils % (Manual) 2 (0.7-5.8) % Basophils % (Manual) 1 (0.1-1.2) Platelet Estimate Adequate Plt Morphology Comment Normal RBC Morph Comment Normal Puncture Site Lt radial ABG pH 7.31 L (7.35-7.45) ABG pCO2 73.8 H* (35.0-45.0) mmHg ABG pO2 72.0 L (80.0-100.0) mmHg ABG HCO3 36.4 H (22.0-26.0) meq/L ABG O2 Saturation 94.7 L (96.0-97.0) % ABG Base Excess 7.7 H (-2-2.0) Johnny Test Positive O2 Delivery Device Nasal cannula Oxygen Flow Rate 4.0 FiO2 0.00 L (21.00-100.00) % Sodium (136-145) mEq/L Potassium (3.5-5.1) mEq/L Chloride (98-107) mEq/L Carbon Dioxide (21-32) mEq/L Anion Gap (5-15) BUN (7-18) mg/dL Creatinine (0.55-1.02) mg/dL Est Cr Clr Drug Dosing mL/min Estimated GFR (MDRD) (>60) mL/min BUN/Creatinine Ratio (14-18) Glucose (74-106) mg/dL Calcium (8.5-10.1) mg/dL Total Bilirubin (0.2-1.0) mg/dL AST (15-37) U/L ALT (14-59) U/L Alkaline Phosphatase (46-116) U/L C-Reactive Protein 0.3 (<1.0) mg/dL Total Protein (6.4-8.2) g/dl Albumin (3.4-5.0) g/dl Globulin gm/dL Albumin/Globulin Ratio (1-2) //18 Range/Units 16:58 WBC (3.98-10.04) K/mm3 RBC (3.98-5.22) M/mm3 Hgb (11.2-15.7) gm/L Hct (34.1-44.9) % MCV (79.4-94.8) fl MCH (25.6-32.2) pg MCHC (32.2-35.5) g/dl RDW Std Deviation (36.4-46.3) fL Plt Count (182-369) K/mm3 MPV (9.4-12.3) fl Neutrophils % (Manual) (40-60) % Band Neutrophils % (0-10) % Lymphocytes % (Manual) (20-40) % Atypical Lymphs % % Monocytes % (Manual) (2-10) % Eosinophils % (Manual) (0.7-5.8) % Basophils % (Manual) (0.1-1.2) Platelet Estimate Plt Morphology Comment RBC Morph Comment Puncture Site ABG pH (7.35-7.45) ABG pCO2 (35.0-45.0) mmHg ABG pO2 (80.0-100.0) mmHg ABG HCO3 (22.0-26.0) meq/L ABG O2 Saturation (96.0-97.0) % ABG Base Excess (-2-2.0) Johnny Test O2 Delivery Device Oxygen Flow Rate FiO2 (21.00-100.00) % Sodium 144 (136-145) mEq/L Potassium 3.8 (3.5-5.1) mEq/L Chloride 103 (98-107) mEq/L Carbon Dioxide 38 H (21-32) mEq/L Anion Gap 6.8 (5-15) BUN 8 (7-18) mg/dL Creatinine 0.9 (0.55-1.02) mg/dL Est Cr Clr Drug Dosing 62.42 mL/min Estimated GFR (MDRD) > 60 (>60) mL/min BUN/Creatinine Ratio 8.9 L (14-18) Glucose 114 H (74-106) mg/dL Calcium 8.9 (8.5-10.1) mg/dL Total Bilirubin 0.2 (0.2-1.0) mg/dL AST 20 (15-37) U/L ALT 36 (14-59) U/L Alkaline Phosphatase 70 (46-116) U/L C-Reactive Protein (<1.0) mg/dL Total Protein 7.3 (6.4-8.2) g/dl Albumin 3.6 (3.4-5.0) g/dl Globulin 3.7 gm/dL Albumin/Globulin Ratio 1.0 (1-2) Meds: Medications Generic Name Dose Route Start Last Admin Trade Name Freq PRN Reason Stop Dose Admin Ketorolac Tromethamine 20 mg 04/24/18 18:15 04/24/18 18:17 Toradol IVPUSH 20 mg ONETIME SHAUN Administration Sodium Chloride 10 ml 04/24/18 16:50 04/24/18 17:03 Saline Flush FLUSH 10 ml ASDIRECTED PRN Administration Keep Vein Open Discontinued Medications Generic Name Dose Route Start Last Admin Trade Name Freq PRN Reason Stop Dose Admin Acetaminophen 975 mg 04/24/18 18:09 04/24/18 18:20 Tylenol PO 04/24/18 18:10 975 mg NOW ONE Administration Acetaminophen Confirm 04/24/18 18:14 04/24/18 18:21 Tylenol Administered 04/24/18 18:15 Not Given Dose 975 mg .ROUTE .STK-MED ONE Albuterol 2.5 mg 04/24/18 18:03 04/24/18 18:08 Proventil Neb Soln NEB 04/24/18 18:04 2.5 mg ONETIME ONE Administration Albuterol/Ipratropium 3 ml 04/24/18 16:50 04/24/18 17:07 Duoneb 3.0-0.5 Mg/3 Ml NEB 04/24/18 16:51 3 ml ONETIME ONE Administration Hydromorphone HCl 0.5 mg 04/24/18 16:51 04/24/18 17:03 Dilaudid IVPUSH 04/24/18 16:52 0.5 mg ONETIME ONE Administration Hydromorphone HCl 0.5 mg 04/24/18 19:09 04/24/18 19:25 Dilaudid IVPUSH 04/24/18 19:10 0.5 mg ONETIME ONE Administration Lorazepam 0.5 mg 04/24/18 16:51 04/24/18 17:02 Ativan PO 04/24/18 16:52 0.5 mg ONETIME ONE Administration Methylprednisolone Sodium Succinate 125 mg 04/24/18 17:02 04/24/18 17:15 Solu-Medrol IVPUSH 04/24/18 17:03 125 mg ONETIME ONE Administration - Re-Assessments/Exams Free Text/Narrative Re-Assessment/Exam: 04/24/18 19:44 chest Xray shows marked hyperinflation, no fluid, no infiltrate. WBC nl, no evidence for pneumonia. Have given Duo neb, albuterol neb and that has helped her. 04/24/18 19:46 will give 1 more albuterol neb at this time, have given solumedrol IV, ABG's area as documented. That was with 02 at 4 L NC, did decrease her 02 to 3 L and she has maintained sats at 92 to 93 %. She does feel up to going home. I believe she does need to be back on prednisone, discharge instr. as documented. Departure - Departure Time of Disposition: 19:48 Disposition: Home, Self-Care 01 Condition: Fair Clinical Impression: COPD exacerbation - Discharge Information Prescriptions: predniSONE [Prednisone] 20 mg PO DAILY #1 tablet Referrals: Liza Fernandez, [employer] [Primary Care Provider] - Forms: ED Department Discharge Additional Instructions: continue current medications as previously prescribed. Prednisone 20 mg q AM for the next 4 days and than 10 mg daily for the following 2 days. See Fallon Fernandez at clinic in 2 to 3 days, call tomorrow AM for appt. Return to ED as needed if symptoms worsening in any way. - My Orders Last 24 Hours: My Active Orders 04/24/18 16:50 Oxygen Therapy [RC] ASDIRECTED Peripheral IV Care [RC] . DIRECTED RT Aerosol Therapy [RC] ASDIRECTED Chest 1V Frontal [CR] Stat Sodium Chloride 0.9% [Saline Flush] 10 ml FLUSH ASDIRECTED PRN Peripheral IV Insertion Adult [OM.PC] Stat 04/24/18 16:52 EKG 12 Lead [EKG Documentation Completion] [RC] STAT 04/24/18 18:03 RT Aerosol Therapy [RC] ASDIRECTED 04/24/18 18:15 Ketorolac [Toradol] 20 mg IVPUSH ONETIME - Assessment/Plan Last 24 Hours: My Active Orders 04/24/18 16:50 Oxygen Therapy [RC] ASDIRECTED Peripheral IV Care [RC] . DIRECTED RT Aerosol Therapy [RC] ASDIRECTED Chest 1V Frontal [CR] Stat Sodium Chloride 0.9% [Saline Flush] 10 ml FLUSH ASDIRECTED PRN Peripheral IV Insertion Adult [OM.PC] Stat 04/24/18 16:52 EKG 12 Lead [EKG Documentation Completion] [RC] STAT 04/24/18 18:03 RT Aerosol Therapy [RC] ASDIRECTED 04/24/18 18:15 Ketorolac [Toradol] 20 mg IVPUSH ONETIME
[2018-04-24] MEDS ORDERED: Albuterol 0.083% 2.5 MG/3 ML Neb Soln NEB ONE ×2 (18:03→19:45)
[2018-04-24] MEDS ORDERED: Acetaminophen 325 MG Tab PO ONE (18:09)
[2018-04-24] MEDS ORDERED: Acetaminophen 325 MG Tab ONE (18:14)
[2018-04-24] MEDS ORDERED: Ketorolac 30 MG/ML SDV IVPUSH SCH (18:15)
[2018-04-24 19:45] VITALS: BP 139/80
[2018-04-24] MEDS ORDERED: predniSONE 20 MG Tab ONE (19:55)
--- NOTE | 2018-04-25 10:01 | CR ---
Chest: Portable view of the chest was obtained. Comparison: Prior chest x-ray of 03/27/18. Heart size and mediastinum are within normal limits. Lungs are clear but hyperinflated. Right shoulder prosthesis is noted. Plate and screws also noted within the right humerus. Impression: 1. Emphysematous change. Other incidental findings. 2. Nothing acute is appreciated on portable chest x-ray. Diagnostic code #2
== END 2018-04-24 20:05 | disposition home or self-care (01) ==
LOC: JD.ED 16:38 → SUPCPDRO 16:38 → JD.ED 20:05
DX: J44.1 Chronic obstructive pulmonary disease with (acute) exacerbation (principal); I10 Essential (primary) hypertension; F41.9 Anxiety disorder, unspecified; F32.9 Major depressive disorder, single episode, unspecified; Z79.899 Other long term (current) drug therapy; Z99.81 Dependence on supplemental oxygen; Z87.891 Personal history of nicotine dependence
CPT/HCPCS: 36415; 36600; 71045; 80053; 82803; 85007; 85027; 86140; 93005; 94640; 96374; 96375; 96376; 99285; A9270; J1170; J1885; J2930; J7050; 99284

== ENCOUNTER 2018-04-25 20:37 | Emergency (ER) | payer MEDICAID ==
[2018-04-25 20:47] VITALS: BP 141/93
[2018-04-25] MEDS ORDERED: Ketorolac 30 MG/ML SDV IM STA (21:43)
--- NOTE | 2018-04-25 21:54 | EDM.PDOC ---
ED HPI GENERAL MEDICAL PROBLEM - General Chief Complaint: Chest Pain Stated Complaint: CHEST PAIN Time Seen by Provider: 04/25/18 21:09 Source of Information: Reports: Patient, Old Records History Limitations: Reports: No Limitations - History of Present Illness INITIAL COMMENTS - FREE TEXT/NARRATIVE: The medical record indicates that the patient was seen in this ED by Dr. Audie Kirk yesterday, 04/24/2018, for a complaint of anterior chest discomfort, dyspnea, and hypoxemia. The patient has been to this ED on numerous occasions for the same complaint. She has advanced COPD, on supplemental oxygen , 4 L per nasal cannula continuously. She reported to Dr. Kirk that she had seen her Pest Controller Assistant, Dr. Jody Granger, just a few days earlier, and then a new medication had been prescribed that the patient had not yet started. She finished a prednisone taper about one week prior. She requested medication for her chest pain. Workup in the ED included a CBC, CMP, CRP, ABG, chest radiograph, and ECG. The patient's ABG demonstrated [id number] respiratory acidosis, otherwise, her entire workup was unremarkable. There was no evidence of pneumonia. The patient was treated with a DuoNeb, albuterol neb, Solu-Medrol, oral acetaminophen, IV Toradol, oral Ativan, and IV Dilaudid. She was discharged home with a prescription for prednisone 20 mg daily for 4 days, then 10 mg daily for 2 additional days. She was instructed to call the office of her PCP, Liza Fernandez, this morning, to make an appointment to be seen within the next day or 2. The patient now returns to the ED with the same complaint as yesterday, of anterior chest discomfort and dyspnea. She is requesting IV Dilaudid. She is denying any new symptoms, such as fever or cough. The patient's medication list includes Archbald 10/325, one tablet every 6 hours, as needed. The patient states that she takes the Archbald only 3 times a day. When asked about why she would not take an additional tablet instead of coming to the ED, she states that the Archbald is prescribed by Stephennathan, and tht Jona Rebecca does not want the patient to take Archbald any more often than 3 times a day. She stated that Rebecca told her that if she needs Archbald more often than 3 times a day, she needs to see a pain specialist. The patient reasons, however, that receiving opioids in the ED does not count towards her total opioid use, because they are ordered by a doctor. The patient acknowledges that she did not contact the office of Rebecca this morning, and that her current follow-up appointment is not until 05/06/2018. - Related Data Allergies Allergy/AdvReac Type Severity Reaction Status Date / Time No Known Allergies Allergy Verified 04/25/18 20:47 Home Meds: Home Meds Budesonide/Formoterol Fumarate [Symbicort 80-4.5 Mcg Inhaler] 2 puff IH BID [History] Triamterene/Hydrochlorothiazid [Triamterene-HCTZ 37.5-25 MG] 1 each PO DAILY # 30 capsule 04/23/17 [Rx] Mirtazapine [Remeron] 30 mg PO BEDTIME 08/11/17 [History] QUEtiapine Fumarate [Seroquel] 50 mg PO BEDTIME 08/11/17 [History] ALPRAZolam [Xanax] 1 mg PO TID 10/11/17 [History] Albuterol [Proair HFA] 2 puff INH Q4HR PRN 12/01/17 [History] Hydrocodone/Acetaminophen [Hydrocodon-Acetaminophn 10-325] 10 - 325 mg PO Q6H PRN 12/26/17 [History] Magnesium Oxide 400 mg PO DAILY #30 tablet 12/31/17 [Rx] guaiFENesin [Mucinex] 1,200 mg PO BID #30 tab.er 12/31/17 [Rx] Metoprolol Tartrate 25 mg PO BID 04/24/18 [History] Nystatin [Mycostatin] 5 ml PO QID 04/24/18 [History] Roflumilast [Daliresp] 500 mg PO DAILY 04/24/18 [History] Tiotropium [place] [Spiriva Respimat] 5 mcg INH DAILY 04/24/18 [History] predniSONE [Prednisone] 20 mg PO DAILY #1 tablet 04/24/18 [Rx] Past Medical History HEENT History: Reports: Impaired Vision Cardiovascular History: Reports: Hypertension, Other (See Below) (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) Respiratory History: Reports: COPD (advanced, on O2 4L continuously) Gastrointestinal History: Reports: Colon Polyp Genitourinary History: Reports: Renal Calculus, Urinary Incontinence 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: Musculoskeletal History: Reports: Arthritis, Osteoporosis Neurological History: Reports: Migraines Psychiatric History: Reports: Anxiety, Depression - Infectious Disease History Infectious Disease History: Reports: Chicken Pox - Past Surgical History HEENT Surgical History: Reports: Oral Surgery ([place] teeth extraction) Female Surgical History: Reports: D&C (x 1), Hysterectomy Musculoskeletal Surgical History: Reports: Shoulder Replacement (right, reverse) Dermatological Surgical History: Reports: None Social & Family History - Family History Family Medical History: Noncontributory - Caffeine Use Caffeine Use: Reports: Soda Other Caffeine Use: 2 - Living Situation & Occupation Living situation: Reports: Single, Alone Occupation: Disabled ED ROS GENERAL - Review of Systems Review Of Systems: ROS reveals no pertinent complaints other than HPI. ED EXAM, GENERAL - Physical Exam Exam: See Below Exam Limited By: No Limitations General Appearance: Alert, WD/WN, No Apparent Distress Eye Exam: Bilateral Eye: Normal Inspection Ears: Normal External Exam, Hearing Grossly Normal Nose: Normal Inspection, No Blood Throat/Mouth: Normal Inspection, Normal Lips, Normal Voice, No Airway Compromise Head: Atraumatic, Normocephalic Neck: Normal Inspection, Full Range of Motion Respiratory/Chest: No Respiratory Distress, No Accessory Muscle Use, Decreased Breath Sounds. No: Crackles, Rhonchi, Wheezing Cardiovascular: Normal Peripheral Pulses, Regular Rate, Rhythm, No Gallop, No JVD, No Murmur, No Rub Peripheral Pulses: 4+: Radial (L), Radial (R) GI/Abdominal: Normal Bowel Sounds, Soft, Non-Tender, No Organomegaly, No Distention, No Abnormal Bruit, No Mass (Female) Exam: Deferred Rectal (Female) Exam: Deferred Back Exam: Normal Inspection, Full Range of Motion, NT Extremities: Normal Inspection, Normal Range of Motion, No Pedal Edema, Normal Capillary Refill Neurological: Alert, Oriented, Normal Cognition, No Motor/Sensory Deficits Psychiatric: Anxious Skin Exam: Warm, Dry, Intact, Normal Color, No Rash EKG INTERPRETATION EKG Date: 04/25/18 Time: 20:47 Rhythm: NSR Rate (Beats/Min): 98 [place]: Normal P-Wave: Enlarged (Biatrial enlargement) QRS: Normal ST-T: Normal QT: Normal Comparison: No Change (04/24/2018) Course - Vital Signs Last Recorded V/S: Last Vital Signs Temp 36.9 C 04/25/18 20:44 Pulse 107 H 04/25/18 20:44 Resp 20 04/25/18 20:44 BP 141/93 H 04/25/18 20:44 Pulse Ox 94 L 04/25/18 20:44 - Orders/Labs/Meds Meds: Medications Discontinued Medications Generic Name Dose Route Start Last Admin Trade Name Apryl PRN Reason Stop Dose Admin Ketorolac Tromethamine 20 mg 04/25/18 21:43 04/25/18 22:02 Toradol IM 04/25/18 21:44 20 mg ONETIME STA Administration - Re-Assessments/Exams Free Text/Narrative Re-Assessment/Exam: 04/25/18 21:44 The patient initially complained of chronic chest pain, related to her COPD, requesting an injection of Dilaudid. I see from her medical records that she was seen in this ED yesterday, and given 2 injections of Dilaudid 0.5 mg, in addition to IV Toradol. The patient takes Archbald 10/325, one tablet 3 times a day , as prescribed by her PCP, Liza Fernandez, and states that Ms. Fernandez has told her that she does not want go up on that, and that if the patient requires more , she will need to be seen by pain service. The patient does not feel that coming to the ED and getting an additional opioid counts. At the same time, the patient is hoping to get a lung transplant, but has been told by her Pest Controller Assistant that she needs to be off both Archbald and Xanax before she can be considered. THe patient states that when she sees Ms. Fernandez next, they will be beginning the process of tapering the patient off of these medications. I see that the patient is on Remeron and Seroquel, although is not on a SSRI, nor any anxiolytic other than Xanax. I'm going to recommend the following: That the patient not be tapered off Xanax directly, rather, that she be switched to Klonopin, then tapered off Klonopin. That the patient be started on BuSpar right away, as it takes up to 3 months before it becomes effective. That consideration be given to starting the patient on a SSRI such as Paxil or Lexapro, as an adjunct antidepressant with anxiolytic properties. Better control of the patient's depression will help to decrease her perception of pain. I would like the patient to contact the office of Ms. Fernandez tomorrow morning, 04/26/2018, to make an appointment to be seen this week. The patient needs to let them know that she is following up from the ER. For today's purposes, I have ordered a single injection of Toradol 20 mg IM. The patient is on prednisone, so should not be on long-term NSAIDs. Departure - Departure Time of Disposition: 21:54 Disposition: Home, Self-Care 01 Condition: Good Clinical Impression: Chronic chest pain, Depression with anxiety - Discharge Information *PRESCRIPTION DRUG MONITORING PROGRAM REVIEWED*: Not Applicable *COPY OF PRESCRIPTION DRUG MONITORING REPORT IN PATIENT MARA: Not Applicable Instructions: Chest Wall Pain, [id number] Referrals: Liza Fernandez, [employer] [Primary Care Provider] - Forms: ED Department Discharge Additional Instructions: You were seen in the emergency room for chronic chest pain associated with your COPD. As discussed, opioid pain relievers require a single prescriber, which is never the ER. In your case, your single prescriber is Liza Fernandez. As discussed, your Pest Controller Assistant needs you off Archbald and Xanax before you can be considered for lung transplant. We recommend that you contact the office of Liza Mitchellnathan tomorrow morning, 04/26/2018, and request to be seen this week. Let them know that you are following up from the ER. When talking with Ms. Fernandez, have her consider: That you NOT be tapered off Xanax directly, rather, that you be switched to Klonopin, a long-acting benzodiazepine, then tapered off Klonopin. This helps to reduce the likelihood of adverse reactions from directly tapering off of Xanax. That you be started on BuSpar right away, a nonaddictive anti-anxiety medicine, as it takes up to 3 months before it becomes effective. That consideration be given to starting you on a SSRI such as Paxil or Lexapro, as an adjunct antidepressant with anxiolytic properties. Better control of your depression will help to decrease your perception of pain and will help with your taper off of Archbald. Similarly, contact the office of your Pest Controller Assistant, Dr. Jody Granger, to make an appointment to follow-up as soon as possible. Again, let them know that this is a follow-up from the ER. If any other problems, please do not hesitate to return to the ER.
== END 2018-04-25 22:12 | disposition home or self-care (01) ==
LOC: JD.ED 20:37
DX: R07.9 Chest pain, unspecified (principal); G89.29 Other chronic pain; F41.8 Other specified anxiety disorders; I10 Essential (primary) hypertension; J44.9 Chronic obstructive pulmonary disease, unspecified; Z99.81 Dependence on supplemental oxygen; Z79.899 Other long term (current) drug therapy
CPT/HCPCS: 99284; J1885

== ENCOUNTER 2018-04-27 02:25 | Emergency (ER) | payer MEDICAID ==
[2018-04-27 02:33] VITALS: BP 160/93
[2018-04-27] MEDS ORDERED: Albuterol 0.083% 2.5 MG/3 ML Neb Soln NEB PRN (02:50)
--- NOTE | 2018-04-27 03:56 | EDM.PDOC ---
ED HPI GENERAL MEDICAL PROBLEM - General Chief Complaint: Respiratory Problem Stated Complaint: [facility] Time Seen by Provider: 04/27/18 02:49 Source of Information: Reports: Patient History Limitations: Reports: No Limitations - History of Present Illness INITIAL COMMENTS - FREE TEXT/NARRATIVE: Patient is a 52-year-old female presents emergency department complaining of shortness of breath and chest wall pain. She is very well known to the emergency Department staff and presents frequently for her shortness of breath. Apparently her son lives next door and usually helps her manage her a medical conditions and he is out of town, therefore the patient is less able to manage on her own at home. So she comes in complaining of shortness of breath chest wall pain and asking for Dilaudid. She denies any nausea vomiting diaphoresis abdominal pain diarrhea constipation no rashes new joint pains or any other symptoms other than what is mentioned above. Onset: Today Duration: Day(s): (2) Location: Reports: Chest, Generalized Quality: Reports: Dull, Same as Previous Episode Severity: Mild Improves with: Reports: Medication Worsens with: Reports: Breathing Associated Symptoms: Reports: Chest Pain, Shortness of Breath. Denies: Confusion, Diaphoresis, Fever/Chills, Nausea/Vomiting Chest Pain Score (Numeric/FACES): 8 - Related Data Allergies Allergy/AdvReac Type Severity Reaction Status Date / Time No Known Allergies Allergy Verified 04/25/18 20:47 Home Meds: Home Meds Budesonide/Formoterol Fumarate [Symbicort 80-4.5 Mcg Inhaler] 2 puff IH BID [History] Triamterene/Hydrochlorothiazid [Triamterene-HCTZ 37.5-25 MG] 1 each PO DAILY # 30 capsule 04/23/17 [Rx] Mirtazapine [Remeron] 30 mg PO BEDTIME 08/11/17 [History] QUEtiapine Fumarate [Seroquel] 50 mg PO BEDTIME 08/11/17 [History] ALPRAZolam [Xanax] 1 mg PO TID 10/11/17 [History] Albuterol [Proair HFA] 2 puff INH Q4HR PRN 12/01/17 [History] Hydrocodone/Acetaminophen [Hydrocodon-Acetaminophn 10-325] 10 - 325 mg PO Q6H PRN 12/26/17 [History] Magnesium Oxide 400 mg PO DAILY #30 tablet 12/31/17 [Rx] guaiFENesin [Mucinex] 1,200 mg PO BID #30 tab.er 12/31/17 [Rx] Metoprolol Tartrate 25 mg PO BID 04/24/18 [History] Nystatin [Mycostatin] 5 ml PO QID 04/24/18 [History] Roflumilast [Daliresp] 500 mg PO DAILY 04/24/18 [History] Tiotropium [place] [Spiriva Respimat] 5 mcg INH DAILY 04/24/18 [History] predniSONE [Prednisone] 20 mg PO DAILY #1 tablet 04/24/18 [Rx] Past Medical History HEENT History: Reports: Impaired Vision Cardiovascular History: Reports: Hypertension, Other (See Below) Respiratory History: Reports: COPD Other Respiratory History: end stage COPD, pt is Oxygen dependent Gastrointestinal History: Reports: Colon Polyp Genitourinary History: Reports: Renal Calculus, Urinary Incontinence 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: Musculoskeletal History: Reports: Arthritis, Osteoporosis Other Musculoskeletal History: c/o back pain Neurological History: Reports: Migraines Psychiatric History: Reports: Anxiety, Depression Endocrine/Metabolic History: Reports: Osteoporosis Hematologic History: Reports: None - Infectious Disease History Infectious Disease History: Reports: Chicken Pox - Past Surgical History HEENT Surgical History: Reports: Oral Surgery Female Surgical History: Reports: D&C, Hysterectomy Musculoskeletal Surgical History: Reports: Shoulder Replacement Dermatological Surgical History: Reports: None Social & Family History - Family History Family Medical History: Noncontributory - Tobacco Use Smoking Status *Q: Unknown Ever Smoked - Caffeine Use Caffeine Use: Reports: None Other Caffeine Use: 2 - Recreational Drug Use Recreational Drug Use: No - Living Situation & Occupation Living situation: Reports: Single, Alone Occupation: Disabled ED ROS GENERAL - Review of Systems Review Of Systems: See Below Constitutional: Reports: No Symptoms HEENT: Reports: No Symptoms Respiratory: Reports: No Symptoms Cardiovascular: Reports: Chest Pain, Dyspnea on Exertion. Denies: Palpitations Endocrine: Reports: No Symptoms GI/Abdominal: Reports: No Symptoms : Reports: No Symptoms Musculoskeletal: Reports: No Symptoms Skin: Reports: No Symptoms Neurological: Reports: No Symptoms Psychiatric: Reports: No Symptoms Hematologic/Lymphatic: Reports: No Symptoms Immunologic: Reports: No Symptoms ED EXAM, GENERAL - Physical Exam Exam: See Below Exam Limited By: No Limitations General Appearance: Alert, WD/WN, No Apparent Distress Ears: Normal External Exam, Hearing Grossly Normal Ear Exam: Bilateral Ear: Auricle Normal, Canal Normal Nose: Normal Inspection, Normal Mucosa, No Blood Throat/Mouth: Normal Inspection, Normal Oropharynx, Normal Voice, No Airway Compromise Head: Atraumatic, Normocephalic Neck: Normal Inspection, Supple, Non-Tender, Full Range of Motion Respiratory/Chest: No Respiratory Distress, Decreased Breath Sounds. No: No Accessory Muscle Use, Chest Non-Tender, Respiratory Distress Cardiovascular: Normal Peripheral Pulses, No Edema, Tachycardia GI/Abdominal: Normal Bowel Sounds, Soft, Non-Tender, No Organomegaly, No Distention Extremities: Normal Inspection, Normal Range of Motion, Non-Tender, Normal Capillary Refill, No Pedal Edema Neurological: Alert, Oriented, CN II-XII Intact, Normal Cognition Psychiatric: Normal Affect, Normal Mood Skin Exam: Warm, Dry, Intact, Normal Color, No Rash Course - Vital Signs Last Recorded V/S: Last Vital Signs Temp 96.7 F 04/27/18 02:29 Pulse 92 04/27/18 04:07 Resp 22 H 04/27/18 04:07 BP 160/93 H 04/27/18 02:29 Pulse Ox 94 L 04/27/18 04:07 - Orders/Labs/Meds Labs: Laboratory Tests 04/27/18 04/27/18 Range/Units 03:10 03:10 WBC 8.42 (3.98-10.04) K/mm3 RBC 4.47 (3.98-5.22) M/mm3 Hgb 12.3 (11.2-15.7) gm/L Hct 39.2 (34.1-44.9) % MCV 87.7 (79.4-94.8) fl MCH 27.5 (25.6-32.2) pg MCHC 31.4 L (32.2-35.5) g/dl RDW Std Deviation 43.2 (36.4-46.3) fL Plt Count 274 (182-369) K/mm3 MPV 9.9 (9.4-12.3) fl Neut % (Auto) 74.3 H (34.0-71.1) % Lymph % (Auto) 15.9 L (19.3-51.7) % [place] % (Auto) 9.1 (4.7-12.5) % Eos % (Auto) 0.2 L (0.7-5.8) Baso % (Auto) 0.1 (0.1-1.2) % Neut # (Auto) 6.25 H (1.56-6.13) K/mm3 Lymph # (Auto) 1.34 (1.18-3.74) K/mm3 [place] # (Auto) 0.77 H (0.24-0.36) K/mm3 Eos # (Auto) 0.02 L (0.04-0.36) K/mm3 Baso # (Auto) 0.01 (0.01-0.08) K/mm3 Sodium 141 (136-145) mEq/L Potassium 4.1 (3.5-5.1) mEq/L Chloride 102 (98-107) mEq/L Carbon Dioxide 35 H (21-32) mEq/L Anion Gap 8.1 (5-15) BUN 12 (7-18) mg/dL Creatinine 0.9 (0.55-1.02) mg/dL Est Cr Clr Drug Dosing 62.42 mL/min Estimated GFR (MDRD) > 60 (>60) mL/min BUN/Creatinine Ratio 13.3 L (14-18) Glucose 131 H (74-106) mg/dL Calcium 9.0 (8.5-10.1) mg/dL Troponin I < 0.017 (0.00-0.056) ng/mL Meds: Medications Discontinued Medications Generic Name Dose Route Start Last Admin Trade Name Freq PRN Reason Stop Dose Admin Albuterol 2.5 mg 04/27/18 02:50 18 03:07 Proventil Neb Soln NEB 2.5 mg Q2H PRN Administration Dyspnea - Radiology Interpretation Free Text/Narrative:: Patient had a chest x-ray and emergency Department that did not reveal any acute findings. She had no focal infiltrate just the chronic findings of COPD. 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
--- NOTE | 2018-04-27 10:14 | CR ---
Chest: Frontal view of the chest was obtained. Comparison: Prior chest x-ray of 04/24/18. Heart size and mediastinum are normal. Lungs are clear without acute parenchymal change. Mild scoliosis is noted within the spine. Right shoulder prosthesis is seen. Lungs are hyperinflated. Impression: 1. Emphysematous change. 2. Nothing acute is identified on portable chest x-ray. Diagnostic code #2
== END 2018-04-27 04:06 | disposition home or self-care (01) ==
LOC: JD.ED 02:25
DX: R07.89 Other chest pain (principal); J43.1 Panlobular emphysema; I10 Essential (primary) hypertension; F41.9 Anxiety disorder, unspecified; F32.9 Major depressive disorder, single episode, unspecified; Z79.899 Other long term (current) drug therapy
CPT/HCPCS: 36415; 71045; 71045-26; 80048; 84484; 85025; 94640; 99285-25

== ENCOUNTER 2018-07-16 01:36 | Emergency (ER) | payer MEDICARE, MEDICAID ==
[2018-07-16 01:43] VITALS: BP 180/108
--- NOTE | 2018-07-16 01:43 | EDM.PDOC ---
ED HPI GENERAL MEDICAL PROBLEM - General Chief Complaint: Respiratory Problem Stated Complaint: [facility] Time Seen by Provider: 07/16/18 01:42 - History of Present Illness INITIAL COMMENTS - FREE TEXT/NARRATIVE: 52-year-old female presents to the emergency room requesting Dilaudid. Patient is been having increasing shortness of breath. By her own admission her chest pain is no worse than normal. Her breathing however is she is at the tail end of a prednisone taper. She has follow-up with her residential care officer the middle of this month with a may discuss chronic steroid therapy. The patient gets [place] and Xanax from her primary care provider. She is not having worsening edema just feels more short of breath she has some mild chest discomfort this is normal for her. Chest Pain Score (Numeric/FACES): 8 - Related Data Allergies Allergy/AdvReac Type Severity Reaction Status Date / Time No Known Allergies Allergy Verified 07/16/18 01:43 Home Meds: Home Meds Budesonide/Formoterol Fumarate [Symbicort 80-4.5 Mcg Inhaler] 2 puff IH BID [History] Triamterene/Hydrochlorothiazid [Triamterene-HCTZ 37.5-25 MG] 1 each PO DAILY # 30 capsule 04/23/17 [Rx] Mirtazapine [Remeron] 30 mg PO BEDTIME 08/11/17 [History] QUEtiapine Fumarate [Seroquel] 50 mg PO BEDTIME 08/11/17 [History] ALPRAZolam [Xanax] 1 mg PO TID 10/11/17 [History] Albuterol [Proair HFA] 2 puff INH Q4HR PRN 12/01/17 [History] Hydrocodone/Acetaminophen [Hydrocodon-Acetaminophn 10-325] 10 - 325 mg PO Q6H PRN 12/26/17 [History] Magnesium Oxide 400 mg PO DAILY #30 tablet 12/31/17 [Rx] guaiFENesin [Mucinex] 1,200 mg PO BID #30 tab.er 12/31/17 [Rx] Metoprolol Tartrate 25 mg PO BID 04/24/18 [History] Nystatin [Mycostatin] 5 ml PO QID 04/24/18 [History] Roflumilast [Daliresp] 500 mg PO DAILY 04/24/18 [History] Tiotropium [place] [Spiriva Respimat] 5 mcg INH DAILY 04/24/18 [History] predniSONE [Prednisone] 20 mg PO DAILY #1 tablet 04/24/18 [Rx] predniSONE 10 mg PO .TAPER #44 tab 07/16/18 [Rx] Past Medical History HEENT History: Reports: Impaired Vision Cardiovascular History: Reports: Hypertension, Other (See Below) Respiratory History: Reports: COPD Other Respiratory History: end stage COPD, pt is Oxygen dependent Gastrointestinal History: Reports: Colon Polyp Genitourinary History: Reports: Renal Calculus, Urinary Incontinence 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: Musculoskeletal History: Reports: Arthritis, Osteoporosis Other Musculoskeletal History: c/o back pain Neurological History: Reports: Migraines Psychiatric History: Reports: Anxiety, Depression Endocrine/Metabolic History: Reports: Osteoporosis Hematologic History: Reports: None - Infectious Disease History Infectious Disease History: Reports: Chicken Pox - Past Surgical History HEENT Surgical History: Reports: Oral Surgery Female Surgical History: Reports: D&C, Hysterectomy Musculoskeletal Surgical History: Reports: Shoulder Replacement Dermatological Surgical History: Reports: None Social & Family History - Family History Family Medical History: Noncontributory - Caffeine Use Caffeine Use: Reports: None Other Caffeine Use: 2 - Living Situation & Occupation Living situation: Reports: Single, Alone Occupation: Disabled ED ROS GENERAL - Review of Systems Review Of Systems: See Below Constitutional: Reports: No Symptoms HEENT: Reports: No Symptoms Respiratory: Reports: Shortness of Breath, Wheezing, Pleuritic Chest Pain, Cough. Denies: Sputum Cardiovascular: Reports: Chest Pain, Dyspnea on Exertion. Denies: Blood Pressure Problem, Claudication, Edema, Lightheadedness, Orthopnea Endocrine: Reports: No Symptoms GI/Abdominal: Reports: No Symptoms. Denies: Abdominal Pain, Anorexia : Reports: No Symptoms Musculoskeletal: Reports: Joint Pain, Muscle Pain Skin: Reports: No Symptoms Neurological: Reports: No Symptoms Psychiatric: Reports: Agitation, Anxiety ED EXAM, GENERAL - Physical Exam Exam: See Below Exam Limited By: No Limitations General Appearance: Alert, No Apparent Distress Eye Exam: Bilateral Eye: EOMI, PERRL Ears: Normal External Exam, Normal Canal, Hearing Grossly Normal, Normal TMs Nose: Normal Inspection, Normal Mucosa, No Blood Throat/Mouth: Normal Inspection, Normal Lips, Normal Teeth, Normal Gums, Normal Oropharynx, Normal Voice, No Airway Compromise Head: Atraumatic, Normocephalic Neck: Normal Inspection, Supple, Non-Tender. No: Lymphadenopathy (L), Lymphadenopathy (R) Respiratory/Chest: Lungs Clear, Decreased Breath Sounds, Wheezing, Other ( Markedly diminished breath sounds few expiratory wheezes). No: Crackles, Rales , Rhonchi Cardiovascular: Regular Rate, Rhythm, No Edema, No Murmur GI/Abdominal: Normal Bowel Sounds, Soft, Other (Mild diffuse tenderness she states this is normal for her worsened by coughing and deep breathing). No: Guarding, Rigid, Rebound Back Exam: Normal Inspection. No: CVA Tenderness (L), CVA Tenderness (R) Extremities: No Pedal Edema, Normal Capillary Refill Neurological: Alert, Oriented Psychiatric: Anxious, Other (She is upset that were not giving her the medication she is requesting such as Dilaudid) Course - Vital Signs Last Recorded V/S: Last Vital Signs Temp 36.8 C 07/16/18 01:40 Pulse 117 H 07/16/18 01:40 Resp 20 07/16/18 01:40 BP 180/108 H 07/16/18 01:40 Pulse Ox 95 07/16/18 02:06 - Orders/Labs/Meds Orders: Active Orders 24 hr Category Date Time Status EKG Documentation Completion [RC] STAT Care 07/16/18 02:02 Active RT Aerosol Therapy [RC] ASDIRECTED Care 07/16/18 01:57 Active RT Aerosol Therapy [RC] ASDIRECTED Care 07/16/18 03:57 Active Chest 1V Frontal [CR] Stat Exams 07/16/18 02:01 Taken Labs: Laboratory Tests 07/16/18 07/16/18 07/16/18 Range/Units 02:15 02:15 02:38 WBC 8.99 (3.98-10.04) K/mm3 RBC 4.46 (3.98-5.22) M/mm3 Hgb 12.2 (11.2-15.7) gm/L Hct 39.3 (34.1-44.9) % MCV 88.1 (79.4-94.8) fl MCH 27.4 (25.6-32.2) pg MCHC 31.0 L (32.2-35.5) g/dl RDW Std Deviation 42.7 (36.4-46.3) fL Plt Count 137 L (182-369) K/mm3 MPV 10.9 (9.4-12.3) fl Neutrophils % (Manual) 59 (40-60) % Band Neutrophils % 0 (0-10) % Lymphocytes % (Manual) 33 (20-40) % Atypical Lymphs % 1 % Monocytes % (Manual) 5 (2-10) % Eosinophils % (Manual) 1 (0.7-5.8) % Basophils % (Manual) 1 (0.1-1.2) Toxic Granulation 1+ slight Platelet Estimate Adequate Plt Morphology Comment Normal Anisocytosis 1+ slight Microcytosis 1+ slight Macrocytosis 1+ slight RBC Morph Comment Abnormal Puncture Site Lt brachial ABG pH 7.30 L (7.35-7.45) ABG pCO2 73.2 H* (35.0-45.0) mmHg ABG pO2 59.0 L (80.0-100.0) mmHg ABG HCO3 35.2 H (22.0-26.0) meq/L ABG O2 Saturation 86.5 L (96.0-97.0) % ABG Base Excess 7.0 H (-2-2.0) A-a Gradient 79 mmHg O2 Delivery Device Cannula Oxygen Flow Rate 4.0 FiO2 36.00 (21.00-100.00) % Sodium 140 (136-145) mEq/L Potassium 3.5 (3.5-5.1) mEq/L Chloride 102 (98-107) mEq/L Carbon Dioxide 35 H (21-32) mEq/L Anion Gap 6.5 (5-15) BUN 18 (7-18) mg/dL Creatinine 0.8 (0.55-1.02) mg/dL Est Cr Clr Drug Dosing 69.88 mL/min Estimated GFR (MDRD) > 60 (>60) mL/min BUN/Creatinine Ratio 22.5 H (14-18) Glucose 145 H (74-106) mg/dL Calcium 8.7 (8.5-10.1) mg/dL Total Bilirubin 0.1 L (0.2-1.0) mg/dL AST 14 L (15-37) U/L ALT 29 (14-59) U/L Alkaline Phosphatase 73 (46-116) U/L Troponin I < 0.017 (0.00-0.056) ng/mL Total Protein 7.1 (6.4-8.2) g/dl Albumin 3.6 (3.4-5.0) g/dl Globulin 3.5 gm/dL Albumin/Globulin Ratio 1.0 (1-2) Meds: Medications Discontinued Medications Generic Name Dose Route Start Last Admin Trade Name Apryl PRN Reason Stop Dose Admin Acetaminophen 650 mg 07/16/18 02:49 07/16/18 02:58 Tylenol PO 07/16/18 02:50 Not Given ONETIME ONE Acetaminophen 325 mg 07/16/18 02:56 07/16/18 02:58 Tylenol PO 07/16/18 02:57 Not Given STAT STA Acetaminophen 650 mg 07/16/18 02:57 07/16/18 03:02 Tylenol PO 07/16/18 02:58 650 mg STAT STA Administration Albuterol/Ipratropium 3 ml 07/16/18 01:56 07/16/18 02:04 Duoneb 3.0-0.5 Mg/3 Ml NEB 07/16/18 01:57 3 ml ONETIME ONE Administration Albuterol/Ipratropium 3 ml 07/16/18 03:56 Duoneb 3.0-0.5 Mg/3 Ml NEB 07/16/18 03:57 ONETIME ONE Lorazepam 1 mg 07/16/18 02:42 07/16/18 02:47 Ativan IVPUSH 07/16/18 02:43 1 mg ONETIME ONE Administration Lorazepam 0.5 mg 07/16/18 03:35 07/16/18 03:41 Ativan IVPUSH 07/16/18 03:36 0.5 mg ONETIME ONE Administration Methylprednisolone Sodium Succinate 80 mg 07/16/18 01:56 07/16/18 02:25 Solu-Medrol IVPUSH 07/16/18 01:57 80 mg ONETIME ONE Administration - Re-Assessments/Exams Free Text/Narrative Re-Assessment/Exam: 07/16/18 03:36 Workup unrevealing chest x-ray chronic lung changes no acute infiltrate EKG mild sinus tachycardia QRS morphology unchanged nondiagnostic ST-T wave changes unchanged troponin negative she is noted to be extremely anxious here in the emergency department this improved a little bit with a milligram of Ativan we' ll repeat a half milligram of Ativan at this point and then anticipate discharge home. Patient should be worked off her Xanax and put on a more appropriate benzodiazepines will be easier to control her baseline anxiety such as Klonopin Xanax is very fast and very fast off which could be leading to rebound anxiety 07/16/18 04:23 Patient was doing pretty good and then she thought she needed a breathing treatment RT came by to give her breathing treatment and she refused it at this point she seems to be breathing a lot easier discussed going home and she says she is ready to go home with discharge at this time routine medications unchanged will restart prednisone taper 40 mg daily to start work down to 10 mg daily and then follow-up with her residential care officer Departure - Departure Time of Disposition: 04:25 Disposition: DC/Tfer to Court of Law En 21 Clinical Impression: COPD exacerbation, Anxiety - Discharge Information Prescriptions: predniSONE 10 mg PO .TAPER #44 tab Referrals: PCP,None [Primary Care Provider] - Forms: ED Department Discharge Additional Instructions: Return to the emergency room with any questions problems worsening symptoms. Follow-up with your regular provider on Wednesday. Follow-up with your residential care officer as scheduled. Use the prednisone taper as directed. - My Orders Last 24 Hours: My Active Orders 07/16/18 01:57 RT Aerosol Therapy [RC] ASDIRECTED 07/16/18 02:01 Chest 1V Frontal [CR] Stat 07/16/18 02:02 EKG Documentation Completion [RC] STAT 07/16/18 03:57 RT Aerosol Therapy [RC] ASDIRECTED - Assessment/Plan Last 24 Hours: My Active Orders 07/16/18 01:57 RT Aerosol Therapy [RC] ASDIRECTED 07/16/18 02:01 Chest 1V Frontal [CR] Stat 07/16/18 02:02 EKG Documentation Completion [RC] STAT 07/16/18 03:57 RT Aerosol Therapy [RC] ASDIRECTED
[2018-07-16] MEDS ORDERED: methylPREDNISolone Sodium Succinate 125 MG/2 ML SDV IVPUSH ONE (01:56)
[2018-07-16] MEDS ORDERED: Albuterol/Ipratropium 3.0-0.5 MG/3 ML Neb Soln NEB ONE ×2 (01:56→03:56)
[2018-07-16] MEDS ORDERED: LORazepam 2 MG/ML SDV IVPUSH ONE ×2 (02:42→03:35)
[2018-07-16] MEDS ORDERED: Acetaminophen Soln 650 MG/20.3 ML UD Cup PO ONE (02:49)
[2018-07-16] MEDS ORDERED: Acetaminophen 325 MG Tab PO STA ×2 (02:56→02:57)
--- NOTE | 2018-07-18 07:46 | CR ---
Chest: Portable view of the chest was obtained. Comparison: Prior chest x-ray of 04/27/18. Heart size is normal. Upper mediastinum is within normal limits. Lungs appear hyperinflated. No acute parenchymal change is seen within the lungs. Right shoulder prosthesis is seen. Scoliosis is noted within the spine. Impression: 1. Emphysematous change. Other incidental findings. 2. Nothing acute is appreciated on portable chest x-ray. Diagnostic code #2
== END 2018-07-16 05:40 | disposition home or self-care (01) ==
LOC: JD.ED 01:36
DX: J44.1 Chronic obstructive pulmonary disease with (acute) exacerbation (principal); I10 Essential (primary) hypertension; F41.9 Anxiety disorder, unspecified
CPT/HCPCS: 36415; 36600; 71045; 80053; 82803; 84484; 85007; 85027; 93005; 94640; 96374; 96375; 96376; 99285; A9270; J2060; J2930; 99284; J7620-GY

== ENCOUNTER 2018-10-26 13:42 | Inpatient (IN) | payer MEDICARE, MEDICAID ==
[2018-10-26] MEDS ORDERED: Lactated Ringers 500 ML IV ONE (13:55)
[2018-10-26] MEDS ORDERED: LORazepam 2 MG/ML SDV IVPUSH ONE ×2 (13:56→16:39)
[2018-10-26] MEDS ORDERED: Albuterol/Ipratropium 3.0-0.5 MG/3 ML Neb Soln NEB ONE (13:58)
--- NOTE | 2018-10-26 14:35 | EDM.PDOC ---
ED HPI GENERAL MEDICAL PROBLEM - General Chief Complaint: Respiratory Problem Stated Complaint: [facility] Time Seen by Provider: 10/26/18 13:49 Source of Information: Reports: Patient, EMS History Limitations: Reports: No Limitations - History of Present Illness INITIAL COMMENTS - FREE TEXT/NARRATIVE: 52-year-old female arrives via [place] ambulance service for evaluation and treatment of a productive cough. Patient is known to the ER and been seen on numerous occasions. She is a known end stage COPD patient. Patient reports that she has been ill for the few weeks. She has been seen by her primary care provider and was on a 7 or 8 day course of Levaquin as well as a prednisone taper. She states that she has now been off these medications for about the last 2 weeks. Over the last week her symptoms have now significantly worsened. She reports symptoms of a productive cough, shortness of breath, chills, headaches and bodyaches. She denies any ear pain, sore throat or abdominal pain. She is on oxygen at all times, 4 L via nasal cannula. Has had increase this up to 5 L at times. Primary care provider is Fallon Fernandez. Patient is a full code. Generalized Pain Score (Numeric/FACES): 5 - Related Data Allergies Allergy/AdvReac Type Severity Reaction Status Date / Time No Known Allergies Allergy Verified 10/26/18 13:53 Home Meds: Home Meds Budesonide/Formoterol Fumarate [Symbicort 80-4.5 Mcg Inhaler] 2 puff IH BID [History] Triamterene/Hydrochlorothiazid [Triamterene-HCTZ 37.5-25 MG] 1 each PO DAILY # 30 capsule 04/23/17 [Rx] Mirtazapine [Remeron] 30 mg PO BEDTIME 08/11/17 [History] QUEtiapine Fumarate [Seroquel] 50 mg PO BEDTIME 08/11/17 [History] ALPRAZolam [Xanax] 1 mg PO BID 10/11/17 [History] Albuterol [Proair HFA] 2 puff INH Q4HR PRN 12/01/17 [History] Hydrocodone/Acetaminophen [Hydrocodon-Acetaminophn 10-325] 10 - 325 mg PO Q6H PRN 12/26/17 [History] guaiFENesin [Mucinex] 1,200 mg PO BID #30 tab.er 12/31/17 [Rx] Metoprolol Tartrate 25 mg PO BID 04/24/18 [History] Nystatin [Mycostatin] 5 ml PO QID PRN 04/24/18 [History] Roflumilast [Daliresp] 500 mg PO DAILY 04/24/18 [History] Tiotropium [place] [Spiriva Respimat] 5 mcg INH DAILY 04/24/18 [History] Magnesium Oxide 500 mg PO DAILY 10/26/18 [History] Past Medical History HEENT History: Reports: Impaired Vision Cardiovascular History: Reports: Hypertension, Other (See Below) Respiratory History: Reports: COPD Other Respiratory History: end stage COPD, pt is Oxygen dependent Gastrointestinal History: Reports: Colon Polyp Genitourinary History: Reports: Renal Calculus, Urinary Incontinence 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: Musculoskeletal History: Reports: Arthritis, Osteoporosis Other Musculoskeletal History: c/o back pain Neurological History: Reports: Migraines Psychiatric History: Reports: Anxiety, Depression Endocrine/Metabolic History: Reports: Osteoporosis Hematologic History: Reports: None - Infectious Disease History Infectious Disease History: Reports: Chicken Pox - Past Surgical History HEENT Surgical History: Reports: Oral Surgery Female Surgical History: Reports: D&C, Hysterectomy Musculoskeletal Surgical History: Reports: Shoulder Replacement Dermatological Surgical History: Reports: None Social & Family History - Family History Family Medical History: Noncontributory - Tobacco Use Smoking Status *Q: Former Smoker Used Tobacco, but Quit: Yes Month/Year Tobacco Last Used: 1 year ago - Caffeine Use Caffeine Use: Reports: None Other Caffeine Use: 2 - Recreational Drug Use Recreational Drug Use: No - Living Situation & Occupation Living situation: Reports: Single, Alone Occupation: Disabled ED ROS GENERAL - Review of Systems Review Of Systems: See Below Constitutional: Reports: Chills, Weakness, Fatigue, Other (reports bodyaches). Denies: Fever HEENT: Denies: Ear Pain, Throat Pain Respiratory: Reports: Shortness of Breath, Cough, Sputum GI/Abdominal: Denies: Nausea, Vomiting Neurological: Reports: Headache ED EXAM, GENERAL - Physical Exam Exam: See Below Exam Limited By: No Limitations General Appearance: Alert, WD/WN, Mild Distress, Thin Throat/Mouth: Normal Inspection Respiratory/Chest: Decreased Breath Sounds, Wheezing (diffuse expiratory) Cardiovascular: Normal Peripheral Pulses, Regular Rate, Rhythm, No Murmur Neurological: Alert, Oriented, Normal Cognition Psychiatric: Normal Affect, Normal Mood Skin Exam: Warm, Dry, Normal Color Course - Vital Signs Last Recorded V/S: Last Vital Signs Temp 98.2 F 10/26/18 20:20 Pulse 119 H 10/26/18 20:31 Resp 24 H 10/26/18 20:20 BP 162/90 H 10/26/18 20:31 Pulse Ox 84 L 10/26/18 20:20 - Orders/Labs/Meds Orders: Active Orders 24 hr Category Date Time Status CULTURE BLOOD [BC] Stat Lab 10/26/18 14:45 Received CULTURE BLOOD [BC] Stat Lab 10/26/18 14:55 Received CULTURE SPUTUM + SMEAR [RM] Stat Lab 10/26/18 14:15 Results Blood Culture x2 Reflex Set [OM.PC] Stat Oth 10/26/18 13:56 Ordered Medication Orders Acetaminophen (Tylenol) 650 mg PO Q4H PRN PRN Reason: Pain (Mild 1-3)/fever Hydrocodone Bitart/Acetaminophen ([place] 325-10 Mg) 1 tab PO Q6H PRN PRN Reason: PAIN Last Admin: 10/26/18 21:24 Dose: 1 tab Albuterol (Proventil Hfa) 0 gm INH Q4H PRN PRN Reason: Shortness of Breath Albuterol/Ipratropium (Duoneb 3.0-0.5 Mg/3 Ml) 3 ml NEB Q4H PRN PRN Reason: Shortness Of Breath/wheezing Alprazolam (Xanax) 1 mg PO BID@0800,2000 [facility] Bisacodyl (Dulcolax) 5 mg PO DAILY PRN PRN Reason: Constipation Clonidine HCl (Catapres-Tts 3) 0.3 mg TRDERM Q7D [facility] Last Admin: 10/26/18 20:29 Dose: 0.3 mg Diltiazem HCl (Cardizem) 10 mg IVPUSH Q4H PRN PRN Reason: Tachycardia Docusate Sodium (Colace) 100 mg PO BID PRN PRN Reason: Constipation Enoxaparin Sodium (Lovenox) 40 mg SUBCUT DAILY [facility] Glycopyrrolate (Seebri Neohaler) 0 mcg IH BID [facility] Guaifenesin (Mucinex) 1,200 mg PO BID [facility] Last Admin: 10/26/18 20:32 Dose: 1,200 mg Hydralazine HCl (Apresoline) 20 mg IVPUSH Q4H PRN PRN Reason: Hypertension Last Admin: 10/26/18 18:27 Dose: 20 mg Piperacillin Sod/Tazobactam (Sod 4.5 gm/ Sodium Chloride) 100 mls @ 25 mls/hr IV Q8H [facility] Levofloxacin/Dextrose 750 mg/ (Premix) 150 mls @ 100 mls/hr IV Q24H [facility] Last Admin: 10/26/18 21:17 Dose: 100 mls/hr Aminophylline 250 mg/ Dextrose (/Water) 60 mls @ 6.84 mls/hr IV ONETIME ONE Stop: 10/27/18 06:46 Magnesium Oxide (Magnesium Oxide) 400 mg PO DAILY [facility] Magnesium Sulfate (Pharmacy To Dose - Magnesium Replacement) 1 dose .XX ASDIRECTED [facility] Methylprednisolone Sodium Succinate (Solu-Medrol) 80 mg IVPUSH Q8H [facility] Last Admin: 10/26/18 21:17 Dose: 80 mg Metoprolol Tartrate (Lopressor) 25 mg PO BID [facility] Last Admin: 10/26/18 20:31 Dose: 25 mg Mirtazapine (Remeron) 30 mg PO BEDTIME [facility] Last Admin: 10/26/18 20:31 Dose: 30 mg Miscellaneous Information (Remove Patch) 1 ea TRDERM Q7D [facility] Mometasone Furoate/Formoterol Fumar (Dulera 100-5 Mcg) 0 puff IH BID [facility] Last Admin: 10/26/18 22:36 Dose: Not Given Morphine Sulfate (Morphine) 0.5 mg IVPUSH Q4H PRN PRN Reason: Dyspnea Last Admin: 10/26/18 18:27 Dose: 0.5 mg Non-Formulary Medication (Roflumilast) 500 mg PO DAILY [facility] Nystatin (Mycostatin) 5 ml PO QID PRN PRN Reason: thrush Ondansetron HCl (Zofran) 4 mg IV Q6H PRN PRN Reason: Nausea/Vomiting Polyethylene Glycol (Miralax) 17 gm PO DAILY PRN PRN Reason: Constipation Potassium Chloride (Pharmacy To Dose - Potassium Replacement) 1 dose .XX ASDIRECTED [facility] Quetiapine Fumarate (Seroquel) 50 mg PO BEDTIME [facility] Last Admin: 10/26/18 20:31 Dose: 50 mg Senna/Docusate Sodium (Senna Plus) 1 tab PO BID PRN PRN Reason: Constipation Theophylline (Theophylline Anhydrous) 300 mg PO DAILY [facility] Triamterene/HCTZ (Dyazide 25-37.5 Mg) 1 each PO DAILY [facility] Labs: Laboratory Tests 10/26/18 10/26/18 10/26/18 Range/Units 14:30 14:30 14:30 WBC (3.98-10.04) K/mm3 RBC (3.98-5.22) M/mm3 Hgb (11.2-15.7) gm/L Hct (34.1-44.9) % MCV (79.4-94.8) fl MCH (25.6-32.2) pg MCHC (32.2-35.5) g/dl RDW Std Deviation (36.4-46.3) fL Plt Count (182-369) K/mm3 MPV (9.4-12.3) fl Neutrophils % (Manual) (40-60) % Band Neutrophils % (0-10) % Lymphocytes % (Manual) (20-40) % Atypical Lymphs % % Monocytes % (Manual) (2-10) % Eosinophils % (Manual) (0.7-5.8) % Basophils % (Manual) (0.1-1.2) Toxic Granulation Platelet Estimate Plt Morphology Comment RBC Morph Comment Puncture Site ABG pH (7.35-7.45) ABG pCO2 (35.0-45.0) mmHg ABG pO2 (80.0-100.0) mmHg ABG HCO3 (22.0-26.0) meq/L ABG O2 Saturation (96.0-97.0) % ABG Base Excess (-2-2.0) Johnny Test A-a Gradient mmHg O2 Delivery Device Oxygen Flow Rate FiO2 (21.00-100.00) % Sodium 133 L (136-145) mEq/L Potassium 3.5 (3.5-5.1) mEq/L Chloride 89 L (98-107) mEq/L Carbon Dioxide 36 H (21-32) mEq/L Anion Gap 11.5 (5-15) BUN 12 (7-18) mg/dL Creatinine 0.9 (0.55-1.02) mg/dL Est Cr Clr Drug Dosing 64.70 mL/min Estimated GFR (MDRD) > 60 (>60) mL/min BUN/Creatinine Ratio 13.3 L (14-18) Glucose 121 H (74-106) mg/dL Lactic Acid 0.8 (0.4-2.0) mmol/L Calcium 9.6 (8.5-10.1) mg/dL Magnesium 1.7 L (1.8-2.4) mg/dl Total Bilirubin 0.2 (0.2-1.0) mg/dL AST 14 L (15-37) U/L ALT 21 (14-59) U/L Alkaline Phosphatase 117 H (46-116) U/L C-Reactive Protein 26.9 H* (<1.0) mg/dL Total Protein 8.0 (6.4-8.2) g/dl Albumin 2.9 L (3.4-5.0) g/dl Globulin 5.1 gm/dL Albumin/Globulin Ratio 0.6 L (1-2) Mycoplasma pneumon IgM Negative (NEGATIVE) 10/26/18 10/26/18 Range/Units 14:35 16:29 WBC 13.61 H (3.98-10.04) K/mm3 RBC 4.51 (3.98-5.22) M/mm3 Hgb 12.8 (11.2-15.7) gm/L Hct 38.4 (34.1-44.9) % MCV 85.1 (79.4-94.8) fl MCH 28.4 (25.6-32.2) pg MCHC 33.3 (32.2-35.5) g/dl RDW Std Deviation 40.6 (36.4-46.3) fL Plt Count 432 H (182-369) K/mm3 MPV 9.1 L (9.4-12.3) fl Neutrophils % (Manual) 78 H (40-60) % Band Neutrophils % 1 (0-10) % Lymphocytes % (Manual) 12 L (20-40) % Atypical Lymphs % 0 % Monocytes % (Manual) 7 (2-10) % Eosinophils % (Manual) 2 (0.7-5.8) % Basophils % (Manual) 0 L (0.1-1.2) Toxic Granulation Few Platelet Estimate Increased Plt Morphology Comment See note RBC Morph Comment Normal Puncture Site Rt radial ABG pH 7.32 L (7.35-7.45) ABG pCO2 81.1 H* (35.0-45.0) mmHg ABG pO2 59.0 L (80.0-100.0) mmHg ABG HCO3 40.1 H (22.0-26.0) meq/L ABG O2 Saturation 87.3 L (96.0-97.0) % ABG Base Excess 11.0 H (-2-2.0) Johnny Test Positive A-a Gradient 70 mmHg O2 Delivery Device Nasal cannula Oxygen Flow Rate 4.0 FiO2 36.00 (21.00-100.00) % Sodium (136-145) mEq/L Potassium (3.5-5.1) mEq/L Chloride (98-107) mEq/L Carbon Dioxide (21-32) mEq/L Anion Gap (5-15) BUN (7-18) mg/dL Creatinine (0.55-1.02) mg/dL Est Cr Clr Drug Dosing mL/min Estimated GFR (MDRD) (>60) mL/min BUN/Creatinine Ratio (14-18) Glucose (74-106) mg/dL Lactic Acid (0.4-2.0) mmol/L Calcium (8.5-10.1) mg/dL Magnesium (1.8-2.4) mg/dl Total Bilirubin (0.2-1.0) mg/dL AST (15-37) U/L ALT (14-59) U/L Alkaline Phosphatase (46-116) U/L C-Reactive Protein (<1.0) mg/dL Total Protein (6.4-8.2) g/dl Albumin (3.4-5.0) g/dl Globulin gm/dL Albumin/Globulin Ratio (1-2) Mycoplasma pneumon IgM (NEGATIVE) Meds: Medications Generic Name Dose Route Start Last Admin Trade Name Freq PRN Reason Stop Dose Admin Acetaminophen 650 mg 10/26/18 18:06 Tylenol PO Q4H PRN Pain (Mild 1-3)/fever Hydrocodone Bitart/Acetaminophen 1 tab 10/26/18 19:01 10/26/18 21:24 [place] 325-10 Mg PO 1 tab Q6H PRN Administration PAIN Albuterol 0 gm 10/26/18 18:54 Proventil Hfa INH Q4H PRN Shortness of Breath Albuterol/Ipratropium 3 ml 10/26/18 18:06 Duoneb 3.0-0.5 Mg/3 Ml NEB Q4H PRN Shortness Of Breath/wheezing Alprazolam 1 mg 10/27/18 08:00 Xanax PO BID@0800,2000 [facility] Bisacodyl 5 mg 10/26/18 18:06 Dulcolax PO DAILY PRN Constipation Clonidine HCl 0.3 mg 10/26/18 20:00 10/26/18 20:29 Catapres-Tts 3 TRDERM 0.3 mg Q7D [facility] Administration Diltiazem HCl 10 mg 10/26/18 21:38 Cardizem IVPUSH Q4H PRN Tachycardia Docusate Sodium 100 mg 10/26/18 18:06 Colace PO BID PRN Constipation Enoxaparin Sodium 40 mg 10/27/18 09:00 Lovenox SUBCUT DAILY [facility] Glycopyrrolate 0 mcg 10/27/18 09:00 Seebri Neohaler IH BID [facility] Guaifenesin 1,200 mg 10/26/18 21:00 10/26/18 20:32 Mucinex PO 1,200 mg BID [facility] Administration Hydralazine HCl 20 mg 10/26/18 18:05 10/26/18 18:27 Apresoline IVPUSH 20 mg Q4H PRN Administration Hypertension Piperacillin Sod/Tazobactam 100 mls @ 25 mls/hr 10/27/18 04:00 Sod 4.5 gm/ Sodium Chloride IV Q8H [facility] Levofloxacin/Dextrose 750 mg/ 150 mls @ 100 mls/hr 10/26/18 21:00 10/26/18 21 :17 Premix IV 100 mls/hr Q24H [facility] Administration Aminophylline 250 mg/ Dextrose 60 mls @ 6.84 mls/hr 10/26/18 22:00 /Water IV 10/27/18 06:46 ONETIME ONE 0.5 MG/KG/HR Magnesium Oxide 400 mg 10/27/18 09:00 Magnesium Oxide PO DAILY [facility] Magnesium Sulfate 1 dose 10/26/18 18:15 Pharmacy To Dose - Magnesium Replacement .XX ASDIRECTED [facility] Methylprednisolone Sodium Succinate 80 mg 10/26/18 22:00 10/26/18 21:17 Solu-Medrol IVPUSH 80 mg Q8H [facility] Administration Metoprolol Tartrate 25 mg 10/26/18 21:00 10/26/18 20:31 Lopressor PO 25 mg BID [facility] Administration Mirtazapine 30 mg 10/26/18 21:00 10/26/18 20:31 Remeron PO 30 mg BEDTIME [facility] Administration Miscellaneous Information 1 ea 11/02/18 20:00 Remove Patch TRDERM Q7D [facility] Mometasone Furoate/Formoterol Fumar 0 puff 10/26/18 21:00 10/26/18 22:36 Dulera 100-5 Mcg IH Not Given BID [facility] Morphine Sulfate 0.5 mg 10/26/18 18:06 10/26/18 18:27 Morphine IVPUSH 0.5 mg Q4H PRN Administration Dyspnea Non-Formulary Medication 500 mg 10/27/18 09:00 Roflumilast PO DAILY [facility] Nystatin 5 ml 10/26/18 18:56 Mycostatin PO QID PRN thrush Ondansetron HCl 4 mg 10/26/18 18:06 Zofran IV Q6H PRN Nausea/Vomiting Polyethylene Glycol 17 gm 10/26/18 18:06 Miralax PO DAILY PRN Constipation Potassium Chloride 1 dose 10/26/18 18:15 Pharmacy To Dose - Potassium Replacement .XX ASDIRECTED [facility] Quetiapine Fumarate 50 mg 10/26/18 21:00 10/26/18 20:31 Seroquel PO 50 mg BEDTIME [facility] Administration Senna/Docusate Sodium 1 tab 10/26/18 18:06 Senna Plus PO BID PRN Constipation Theophylline 300 mg 10/27/18 09:00 Theophylline Anhydrous PO DAILY [facility] Triamterene/HCTZ 1 each 10/27/18 09:00 Dyazide 25-37.5 Mg PO DAILY [facility] Discontinued Medications Generic Name Dose Route Start Last Admin Trade Name Freq PRN Reason Stop Dose Admin Albuterol 2.5 mg 10/26/18 14:43 10/26/18 15:15 Proventil Neb Soln NEB 10/26/18 14:44 2.5 mg ONETIME ONE Administration Albuterol 2.5 mg 10/26/18 15:32 10/26/18 16:06 Proventil Neb Soln NEB 10/26/18 15:33 2.5 mg ONETIME ONE Administration Albuterol/Ipratropium 3 ml 10/26/18 13:58 10/26/18 14:32 Duoneb 3.0-0.5 Mg/3 Ml NEB 10/26/18 13:59 3 ml ONETIME ONE Administration Alprazolam 1 mg 10/26/18 21:00 10/26/18 20:08 Xanax PO Not Given BID [facility] Clonidine HCl 0.1 mg 10/26/18 16:39 10/26/18 16:55 Catapres PO 10/26/18 16:40 0.1 mg ONETIME ONE Administration Diltiazem HCl 10 mg 10/26/18 19:54 10/26/18 20:22 Cardizem IVPUSH 10 mg Q6H PRN Administration Tachycardia Hydromorphone HCl 0.5 mg 10/26/18 14:44 10/26/18 14:59 Dilaudid IVPUSH 10/26/18 14:45 0.5 mg ONETIME ONE Administration Lactated Ringer's 500 mls @ 999 mls/hr 10/26/18 13:55 10/26/18 14:12 Ringers, Lactated IV 10/26/18 14:25 999 mls/hr .BOLUS ONE Administration Ceftriaxone Sodium 2 gm/ 100 mls @ 200 mls/hr 10/26/18 14:43 10/26/18 15:00 Sodium Chloride IV 10/26/18 15:12 200 mls/hr NOW STA Administration Lactated Ringer's 1,000 mls @ 125 mls/hr 10/26/18 15:30 10/26/18 16:55 Ringers, Lactated IV 125 mls/hr ASDIRECTED [facility] Administration Magnesium Sulfate 2 gm/ Premix 50 mls @ 50 mls/hr 10/26/18 18:15 10/26/18 18: 27 IV 10/26/18 19:14 50 mls/hr ONETIME ONE Administration Potassium Chloride 10 meq/ 100 mls @ 100 mls/hr 10/26/18 19:30 10/26/18 20:14 Premix IV 10/26/18 23:29 Not Given Q1H [facility] Levofloxacin/Dextrose 750 mg/ 150 mls @ 100 mls/hr 10/26/18 18:30 10/26/18 20 :15 Premix IV Not Given Q24H [facility] Piperacillin Sod/Tazobactam 100 mls @ 200 mls/hr 10/26/18 20:00 10/26/18 20: 33 Sod 4.5 gm/ Sodium Chloride IV 10/26/18 20:29 200 mls/hr ONETIME ONE Administration Magnesium Sulfate/Dextrose 1 100 mls @ 100 mls/hr 10/26/18 18:50 10/26/18 20: 01 gm/ Premix IV 10/26/18 19:49 Not Given ONETIME ONE Lorazepam 1 mg 10/26/18 13:56 10/26/18 14:12 Ativan IVPUSH 10/26/18 13:57 1 mg ONETIME ONE Administration Lorazepam 0.5 mg 10/26/18 16:39 10/26/18 16:54 Ativan IVPUSH 10/26/18 16:40 0.5 mg ONETIME ONE Administration Methylprednisolone Sodium Succinate 125 mg 10/26/18 14:44 10/26/18 15:00 Solu-Medrol IVPUSH 10/26/18 14:45 125 mg ONETIME ONE Administration Metoprolol Tartrate 5 mg 10/26/18 18:05 10/26/18 19:11 Lopressor IVPUSH 5 mg Q4H PRN Administration Tachycardia - Radiology Interpretation Free Text/Narrative:: Chest: Two views of the chest were obtained. Comparison: Prior chest x-ray of 07/16/18 and 04/27/18. Heart size and mediastinum are normal. Lungs are hyperinflated compatible with emphysematous change. Lung markings are slightly increased most of which appears to be chronic but difficult to exclude mild bronchitis. Focal parenchymal change is seen within the lingula. Previous right shoulder surgery is noted. Impression: 1. Possible mild bronchitis superimposed upon chronic change. Slight parenchymal density within the lingula suspicious for minimal area of pneumonia. 2. Emphysematous changes and other incidental findings. - Re-Assessments/Exams Free Text/Narrative Re-Assessment/Exam: 10/26/18 19:38 influenza has returned negative. Given the patient's pneumonia and COPD exacerbation I do feel she should be admitted to the hospital. Case discussed with Dr. Mayo he was come to the ER and seen the patient. Concerned that she is a full and would benefit from pulmonology. Recommend transfer to [place]. Patient would like to go to [facility]. [place] is on diversion as well. I did discuss the case with the hospitalist at [facility] in [place]. Does not feel she needs to come to [place]. Would treat with antibiotics and steroids which were able to here. Informed Dr. Mayo he is agreeable to accepting the patient here. Departure - Departure Time of Disposition: 19:40 Disposition: Admitted As Inpatient 65 Condition: Poor Clinical Impression: COPD exacerbation, Pneumonia - Discharge Information *PRESCRIPTION DRUG MONITORING PROGRAM REVIEWED*: No *COPY OF PRESCRIPTION DRUG MONITORING REPORT IN PATIENT MARA: No - My Orders Last 24 Hours: My Active Orders 10/26/18 13:56 Blood Culture x2 Reflex Set [OM.PC] Stat 10/26/18 14:15 CULTURE SPUTUM + SMEAR [RM] Stat 10/26/18 14:45 CULTURE BLOOD [BC] Stat 10/26/18 14:55 CULTURE BLOOD [BC] Stat - Assessment/Plan Last 24 Hours: My Active Orders 10/26/18 13:56 Blood Culture x2 Reflex Set [OM.PC] Stat 10/26/18 14:15 CULTURE SPUTUM + SMEAR [RM] Stat 10/26/18 14:45 CULTURE BLOOD [BC] Stat 10/26/18 14:55 CULTURE BLOOD [BC] Stat
[2018-10-26] MEDS ORDERED: cefTRIAXone 2 GM in Sodium Chloride 0.9% 100 ML IV STA (14:43)
[2018-10-26] MEDS ORDERED: Albuterol 0.083% 2.5 MG/3 ML Neb Soln NEB ONE ×2 (14:43→15:32)
[2018-10-26] MEDS ORDERED: HYDROmorphone 1 MG/ML Syringe IVPUSH ONE (14:44)
[2018-10-26] MEDS ORDERED: methylPREDNISolone Sodium Succinate 125 MG/2 ML SDV IVPUSH ONE (14:44)
--- NOTE | 2018-10-26 14:44 | CR ---
Chest: Two views of the chest were obtained. Comparison: Prior chest x-ray of 07/16/18 and 04/27/18. Heart size and mediastinum are normal. Lungs are hyperinflated compatible with emphysematous change. Lung markings are slightly increased most of which appears to be chronic but difficult to exclude mild bronchitis. Focal parenchymal change is seen within the lingula. Previous right shoulder surgery is noted. Impression: 1. Possible mild bronchitis superimposed upon chronic change. Slight parenchymal density within the lingula suspicious for minimal area of pneumonia. 2. Emphysematous changes and other incidental findings. Diagnostic code #3
[2018-10-26] MEDS ORDERED: Lactated Ringers 1,000 ML IV SCH (15:30)
[2018-10-26] MEDS ORDERED: cloNIDine 0.1 MG Tab PO ONE (16:39)
[2018-10-26] MEDS ORDERED: Metoprolol Tartrate 5 MG/5 ML SDV IVPUSH PRN (18:05)
[2018-10-26] MEDS ORDERED: Albuterol/Ipratropium 3.0-0.5 MG/3 ML Neb Soln NEB PRN (18:06)
[2018-10-26] MEDS ORDERED: Docusate Sodium 100 MG Cap PO PRN (18:06)
[2018-10-26] MEDS ORDERED: Acetaminophen 325 MG Tab PO PRN (18:06)
[2018-10-26] MEDS ORDERED: Polyethylene Glycol 3350 Powder 17 GM Packet PO PRN (18:06)
[2018-10-26] MEDS ORDERED: Bisacodyl 5 MG Tab PO PRN (18:06)
[2018-10-26] MEDS ORDERED: Magnesium Sulfate/Water 2 GM in Premix Bag 1 BAG IV ONE (18:15)
--- NOTE | 2018-10-26 18:24 | PCM.HP ---
H&P History of Present Illness - General Date of Service: 10/26/18 Admit Problem/Dx: Admission Diagnosis/Problem Admission Diagnosis/Problem Pneumonia Source of Information: Patient, Old Records, Provider, RN Notes Reviewed History Limitations: Reports: Respiratory Distress - History of Present Illness Initial Comments - Free Text/Narative: This is a 52 yo white female with past medical hx/o Impaired Vision, End Stage COPD, Chronic Respiratory Failure on 4L NC, HTN, OA/DJD, Osteoporosis, Back Pain , Migraines, Chronic Pain, Depression, and Anxiety who comes in for worsening shortness of breath and was diagnosed with lingering community acquired pneumonia. She just completed oral antibiotic and a taper dose of steroids but w /o much relief. Patient is known to us for multiple admission related to her End Stage COPD in the past. Her initial work up in ED shows a CBC remarkable for WBC of 13.61, Platelet # of 432, MPV of 9.1, Neutrophils of 78% and Lymphocytes of 12%. Her ABG shows pH of 7.32, pCO2 of 81.1, pO2 of 59, HCO3 of 40.1, O2 Sat of 87.3, on 4L NC. Her Chemistry is significant for Na of 133, Cl of 89, CO2 of 36, BS of 121, Mg of 1.7, AST of 14, Alk Phos of 117, CRP of 26.9, and Albumin of 2.9. Her chest x- ray shows hyperinflated lungs with increased density within the lingula. Patient is being admitted for lingering community acquired pneumonia, respiratory failure and copd exacerbation. She is full code. Generalized Pain Score (Numeric/FACES): 5 - Related Data Allergies/Adverse Reactions: Allergies Allergy/AdvReac Type Severity Reaction Status Date / Time No Known Allergies Allergy Verified 10/26/18 13:53 Home Medications: Home Meds Budesonide/Formoterol Fumarate [Symbicort 80-4.5 Mcg Inhaler] 2 puff IH BID [History] Triamterene/Hydrochlorothiazid [Triamterene-HCTZ 37.5-25 MG] 1 each PO DAILY # 30 capsule 04/23/17 [Rx] Mirtazapine [Remeron] 30 mg PO BEDTIME 08/11/17 [History] QUEtiapine Fumarate [Seroquel] 50 mg PO BEDTIME 08/11/17 [History] ALPRAZolam [Xanax] 1 mg PO BID 10/11/17 [History] Albuterol [Proair HFA] 2 puff INH Q4HR PRN 12/01/17 [History] Hydrocodone/Acetaminophen [Hydrocodon-Acetaminophn 10-325] 10 - 325 mg PO Q6H PRN 12/26/17 [History] guaiFENesin [Mucinex] 1,200 mg PO BID #30 tab.er 12/31/17 [Rx] Metoprolol Tartrate 25 mg PO BID 04/24/18 [History] Nystatin [Mycostatin] 5 ml PO QID PRN 04/24/18 [History] Roflumilast [Daliresp] 500 mg PO DAILY 04/24/18 [History] Tiotropium [place] [Spiriva Respimat] 5 mcg INH DAILY 04/24/18 [History] Magnesium Oxide 500 mg PO DAILY 10/26/18 [History] Past Medical History HEENT History: Reports: Impaired Vision Cardiovascular History: Reports: Hypertension, Other (See Below) Respiratory History: Reports: Asthma, Bronchitis, Recurrent, COPD, Pneumonia, Recurrent Other Respiratory History: end stage COPD, pt is Oxygen dependent Gastrointestinal History: Reports: Colon Polyp Genitourinary History: Reports: Renal Calculus, Urinary Incontinence [employer] History: Reports: Musculoskeletal History: Reports: Arthritis, Osteoporosis Other Musculoskeletal History: c/o back pain Neurological History: Reports: Migraines Psychiatric History: Reports: Anxiety, Depression Endocrine/Metabolic History: Reports: Osteoporosis Hematologic History: Reports: None - Infectious Disease History Infectious Disease History: Reports: Chicken Pox - Past Surgical History HEENT Surgical History: Reports: Oral Surgery Female Surgical History: Reports: D&C, Hysterectomy Musculoskeletal Surgical History: Reports: Shoulder Replacement Dermatological Surgical History: Reports: None Social & Family History - Family History Family Medical History: Noncontributory - Tobacco Use Smoking Status *Q: Former Smoker Years of Tobacco use: 20 Packs/Tins Daily: 0.5 Used Tobacco, but Quit: Yes Month/Year Tobacco Last Used: oct 2016 Second Hand Smoke Exposure: No - Caffeine Use Caffeine Use: Reports: Soda Other Caffeine Use: 2 cans/day - Recreational Drug Use Recreational Drug Use: No - Living Situation & Occupation Living situation: Reports: Single, Alone Occupation: Disabled H&P Review of Systems - Review of Systems: Review Of Systems: See Below General: Reports: Weakness, Fatigue. Denies: Fever, Chills, Malaise HEENT: Reports: No Symptoms Pulmonary: Reports: Shortness of Breath, Cough, Sputum. Denies: Wheezing Cardiovascular: Reports: Dyspnea on Exertion, Syncope. Denies: Chest Pain, Palpitations, Lightheadedness, Claudication Gastrointestinal: Denies: Abdominal Pain, Nausea, Vomiting Genitourinary: Reports: No Symptoms Musculoskeletal: Reports: No Symptoms Skin: Denies: No Symptoms Psychiatric: Denies: Confusion, Depression Neurological: Denies: Confusion, Dizziness, Weakness, Gait Disturbance Hematologic/Lymphatic: Reports: No Symptoms Immunologic: Reports: No Symptoms Exam - Exam Exam: See Below - Vital Signs Vital Signs: Last Vital Signs Temp 37.0 C 10/26/18 13:49 Pulse 97 10/26/18 13:49 Resp 20 10/26/18 13:49 BP 167/112 H 10/26/18 16:55 Pulse Ox 91 L 10/26/18 16:06 Weight: 61.689 kg - Exam Quality Assessment: Supplemental Oxygen General: Alert, Moderate Distress, Other (cachexia; labored breathing) HEENT: Conjunctiva Clear, EACs Clear, EOMI, Hearing Intact, Mucosa Moist & [place] , Nares Patent, Normal Nasal Septum, Posterior Pharynx Clear, Pupils Equal, Pupils Reactive Neck: Supple, Full Range of Motion, Other (uses accessory muscle). No: Lymphadenopathy Lungs: Wheezing (occasional wheezing), Other (labored and tight) Cardiovascular: Tachycardia GI/Abdominal Exam: Normal Bowel Sounds, Non-Tender, No Organomegaly, No Distention, No Abnormal Bruit, No Mass (Female) Exam: Deferred Rectal (Female) Exam: Deferred Back Exam: Normal Inspection, Decreased Range of Motion Extremities: Normal Inspection, Normal Range of Motion, Non-Tender, No Pedal Edema, Normal Capillary Refill, Other (muscle atropy) Peripheral Pulses: 2+: Posterior Tibial (L), Posterior Tibial (R), Dorsalis Pedis (L), Dorsalis Pedis (R) Skin: Warm, Dry, Intact Neuro Extensive - Mental Status: Oriented x3, Normal Cognition, Memory Intact Neuro Extensive - Motor, Sensory, Reflexes: CN II-XII Intact (limited due to respiratory distress), Normal Gait Psychiatric: Alert, Normal Affect, Anxious - Patient Data Lab Results Last 24 hrs: Laboratory Results - last 24 hr 10/26/18 10/26/18 10/26/18 Range/Units 14:30 14:30 14:30 WBC (3.98-10.04) K/mm3 RBC (3.98-5.22) M/mm3 Hgb (11.2-15.7) gm/L Hct (34.1-44.9) % MCV (79.4-94.8) fl MCH (25.6-32.2) pg MCHC (32.2-35.5) g/dl RDW Std Deviation (36.4-46.3) fL Plt Count (182-369) K/mm3 MPV (9.4-12.3) fl Neutrophils % (Manual) (40-60) % Band Neutrophils % (0-10) % Lymphocytes % (Manual) (20-40) % Atypical Lymphs % % Monocytes % (Manual) (2-10) % Eosinophils % (Manual) (0.7-5.8) % Basophils % (Manual) (0.1-1.2) Toxic Granulation Platelet Estimate Plt Morphology Comment RBC Morph Comment Puncture Site ABG pH (7.35-7.45) ABG pCO2 (35.0-45.0) mmHg ABG pO2 (80.0-100.0) mmHg ABG HCO3 (22.0-26.0) meq/L ABG O2 Saturation (96.0-97.0) % ABG Base Excess (-2-2.0) Johnny Test A-a Gradient mmHg O2 Delivery Device Oxygen Flow Rate FiO2 (21.00-100.00) % Sodium 133 L (136-145) mEq/L Potassium 3.5 (3.5-5.1) mEq/L Chloride 89 L (98-107) mEq/L Carbon Dioxide 36 H (21-32) mEq/L Anion Gap 11.5 (5-15) BUN 12 (7-18) mg/dL Creatinine 0.9 (0.55-1.02) mg/dL Est Cr Clr Drug Dosing 64.70 mL/min Estimated GFR (MDRD) > 60 (>60) mL/min BUN/Creatinine Ratio 13.3 L (14-18) Glucose 121 H (74-106) mg/dL Lactic Acid 0.8 (0.4-2.0) mmol/L Calcium 9.6 (8.5-10.1) mg/dL Magnesium 1.7 L (1.8-2.4) mg/dl Total Bilirubin 0.2 (0.2-1.0) mg/dL AST 14 L (15-37) U/L ALT 21 (14-59) U/L Alkaline Phosphatase 117 H (46-116) U/L C-Reactive Protein 26.9 H* (<1.0) mg/dL Total Protein 8.0 (6.4-8.2) g/dl Albumin 2.9 L (3.4-5.0) g/dl Globulin 5.1 gm/dL Albumin/Globulin Ratio 0.6 L (1-2) Mycoplasma pneumon IgM Negative (NEGATIVE) 10/26/18 10/26/18 Range/Units 14:35 16:29 WBC 13.61 H (3.98-10.04) K/mm3 RBC 4.51 (3.98-5.22) M/mm3 Hgb 12.8 (11.2-15.7) gm/L Hct 38.4 (34.1-44.9) % MCV 85.1 (79.4-94.8) fl MCH 28.4 (25.6-32.2) pg MCHC 33.3 (32.2-35.5) g/dl RDW Std Deviation 40.6 (36.4-46.3) fL Plt Count 432 H (182-369) K/mm3 MPV 9.1 L (9.4-12.3) fl Neutrophils % (Manual) 78 H (40-60) % Band Neutrophils % 1 (0-10) % Lymphocytes % (Manual) 12 L (20-40) % Atypical Lymphs % 0 % Monocytes % (Manual) 7 (2-10) % Eosinophils % (Manual) 2 (0.7-5.8) % Basophils % (Manual) 0 L (0.1-1.2) Toxic Granulation Few Platelet Estimate Increased Plt Morphology Comment See note RBC Morph Comment Normal Puncture Site Rt radial ABG pH 7.32 L (7.35-7.45) ABG pCO2 81.1 H* (35.0-45.0) mmHg ABG pO2 59.0 L (80.0-100.0) mmHg ABG HCO3 40.1 H (22.0-26.0) meq/L ABG O2 Saturation 87.3 L (96.0-97.0) % ABG Base Excess 11.0 H (-2-2.0) Johnny Test Positive A-a Gradient 70 mmHg O2 Delivery Device Nasal cannula Oxygen Flow Rate 4.0 FiO2 36.00 (21.00-100.00) % Sodium (136-145) mEq/L Potassium (3.5-5.1) mEq/L Chloride (98-107) mEq/L Carbon Dioxide (21-32) mEq/L Anion Gap (5-15) BUN (7-18) mg/dL Creatinine (0.55-1.02) mg/dL Est Cr Clr Drug Dosing mL/min Estimated GFR (MDRD) (>60) mL/min BUN/Creatinine Ratio (14-18) Glucose (74-106) mg/dL Lactic Acid (0.4-2.0) mmol/L Calcium (8.5-10.1) mg/dL Magnesium (1.8-2.4) mg/dl Total Bilirubin (0.2-1.0) mg/dL AST (15-37) U/L ALT (14-59) U/L Alkaline Phosphatase (46-116) U/L C-Reactive Protein (<1.0) mg/dL Total Protein (6.4-8.2) g/dl Albumin (3.4-5.0) g/dl Globulin gm/dL Albumin/Globulin Ratio (1-2) Mycoplasma pneumon IgM (NEGATIVE) Result Diagrams: 10/27/18 05:28 10/27/18 05:28 John Results Last 24 hrs: Microbiology 10/26/18 14:15 Gram Stain - Final Sputum - Expectorated 10/26/18 13:52 Influenza Type A Antigen Screen - Final Nasopharyngeal Swab NEGATIVE INFLUENZA A VIRUS AG Influenza Type B Antigen Screen - Final NEGATIVE INFLUENZA B VIRUS AG Problem List Initiated/Reviewed/Updated: Yes Orders Last 24hrs: Active Orders 24 hr Category Date Time Status Patient Status [ADT] Routine ADT 10/26/18 16:41 Active Height and Weight [RC] 04 Care 10/26/18 18:06 Active Intake and Output [RC] QSHIFT Care 10/26/18 18:07 Active Oxygen Therapy [RC] ASDIRECTED Care 10/26/18 14:01 Active Oxygen Therapy [RC] PRN Care 10/26/18 18:07 Active VTE/DVT Education [RC] PER UNIT ROUTINE Care 10/26/18 18:07 Active Vital Signs [RC] Q4HR Care 10/26/18 18:07 Active Consult to Case Management/Drum Puller [CONS] Cons 10/26/18 18:06 Active Routine Consult to Spiritual Care [CONS] Routine Cons 10/26/18 18:06 Active OT Evaluation and Treatment [CONS] Routine Cons 10/26/18 18:06 Active PT Evaluation and Treatment [CONS] Routine Cons 10/26/18 18:06 Active Respiratory Care Assess and Treatment [CONS] Routine Cons 10/26/18 18:06 Active Regular Diet [DIET] Diet 10/26/18 Dinner Active Chest 1V Frontal [CR] Routine Exams 10/28/18 07:00 Ordered BASIC METABOLIC PANEL,BMP [CHEM] AM Lab 10/27/18 05:11 Ordered BASIC METABOLIC PANEL,BMP [CHEM] AM Lab 10/28/18 05:11 Ordered BASIC METABOLIC PANEL,BMP [CHEM] AM Lab 10/29/18 05:11 Ordered BASIC METABOLIC PANEL,BMP [CHEM] AM Lab 10/30/18 05:11 Ordered C-REACTIVE PROTEIN [CHEM] AM Lab 10/27/18 05:11 Ordered C-REACTIVE PROTEIN [CHEM] AM Lab 10/28/18 05:11 Ordered C-REACTIVE PROTEIN [CHEM] AM Lab 10/29/18 05:11 Ordered C-REACTIVE PROTEIN [CHEM] AM Lab 10/30/18 05:11 Ordered CBC WITH AUTO DIFF [HEME] AM Lab 10/27/18 05:11 Ordered CBC WITH AUTO DIFF [HEME] AM Lab 10/28/18 05:11 Ordered CBC WITH AUTO DIFF [HEME] AM Lab 10/29/18 05:11 Ordered CBC WITH AUTO DIFF [HEME] AM Lab 10/30/18 05:11 Ordered CULTURE BLOOD [BC] Stat Lab 10/26/18 14:45 Received CULTURE BLOOD [BC] Stat Lab 10/26/18 14:55 Received CULTURE SPUTUM + SMEAR [RM] Stat Lab 10/26/18 14:15 Results MAGNESIUM [CHEM] AM Lab 10/27/18 05:11 Ordered MAGNESIUM [CHEM] AM Lab 10/28/18 05:11 Ordered MAGNESIUM [CHEM] AM Lab 10/29/18 05:11 Ordered MAGNESIUM [CHEM] AM Lab 10/30/18 05:11 Ordered Acetaminophen [Tylenol] Med 10/26/18 18:06 Active 650 mg PO Q4H PRN Albuterol/Ipratropium [DuoNeb 3.0-0.5 MG/3 ML] Med 10/26/18 18:06 Active 3 ml NEB Q4H PRN Bisacodyl [Dulcolax] Med 10/26/18 18:06 Active 5 mg PO DAILY PRN Docusate Sodium [Colace] Med 10/26/18 18:06 Active 100 mg PO BID PRN Docusate Sodium/Sennosides [Senna Plus] Med 10/26/18 18:06 Active 1 tab PO BID PRN Enoxaparin [Lovenox] Med 10/27/18 09:00 Active 40 mg SUBCUT DAILY Lactated Ringers [Ringers, Lactated] 1,000 ml Med 10/26/18 15:30 Active IV ASDIRECTED Magnesium Sulfate/Water [Magnesium Sulfate 2 GM in Med 10/26/18 18:15 Active Water 50 ML] 2 gm Premix Bag 1 bag IV ONETIME Metoprolol Tartrate [Lopressor] Med 10/26/18 18:05 Active 5 mg IVPUSH Q4H PRN Morphine Med 10/26/18 18:06 Active 0.5 mg IVPUSH Q4H PRN Ondansetron [Zofran] Med 10/26/18 18:06 Active 4 mg IV Q6H PRN Pharmacy to Dose - Magnesium R [Pharmacy to Dose - Med 10/26/18 18:15 Pending Magnesium Replacement] 1 dose .XX ASDIRECTED Pharmacy to Dose - Potassium R [Pharmacy to Dose - Med 10/26/18 18:15 Pending Potassium Replacement] 1 dose .XX ASDIRECTED Polyethylene Glycol 3350 [MiraLAX] Med 10/26/18 18:06 Active 17 gm PO DAILY PRN Potassium Chloride [KCl 10 MEQ in Water 100 ML] 10 meq Med 10/26/18 19:30 Active Premix Bag 1 bag IV Q1H hydrALAZINE [Apresoline] Med 10/26/18 18:05 Active 20 mg IVPUSH Q4H PRN methylPREDNISolone Sod Succ [Solu-MEDROL] Med 10/26/18 22:00 Active 80 mg IVPUSH Q8H Blood Culture x2 Reflex Set [OM.PC] Stat Oth 10/26/18 13:56 Ordered Resuscitation Status Routine Resus Stat 10/26/18 18:06 Ordered Medication Orders Acetaminophen (Tylenol) 650 mg PO Q4H PRN PRN Reason: Pain (Mild 1-3)/fever Albuterol/Ipratropium (Duoneb 3.0-0.5 Mg/3 Ml) 3 ml NEB Q4H PRN PRN Reason: Shortness Of Breath/wheezing Bisacodyl (Dulcolax) 5 mg PO DAILY PRN PRN Reason: Constipation Docusate Sodium (Colace) 100 mg PO BID PRN PRN Reason: Constipation Enoxaparin Sodium (Lovenox) 40 mg SUBCUT DAILY SHAUN Hydralazine HCl (Apresoline) 20 mg IVPUSH Q4H PRN PRN Reason: Hypertension Lactated Ringer's (Ringers, Lactated) 1,000 mls @ 125 mls/hr IV ASDIRECTED [facility] Last Admin: 10/26/18 16:55 Dose: 125 mls/hr Magnesium Sulfate 2 gm/ Premix 50 mls @ 50 mls/hr IV ONETIME ONE Stop: 10/26/18 19:14 Potassium Chloride 10 meq/ (Premix) 100 mls @ 100 mls/hr IV Q1H [facility] Stop: 10/26/18 23:29 Magnesium Sulfate (Pharmacy To Dose - Magnesium Replacement) 1 dose .XX ASDIRECTED [facility] Methylprednisolone Sodium Succinate (Solu-Medrol) 80 mg IVPUSH Q8H [facility] Metoprolol Tartrate (Lopressor) 5 mg IVPUSH Q4H PRN PRN Reason: Tachycardia Morphine Sulfate (Morphine) 0.5 mg IVPUSH Q4H PRN PRN Reason: Dyspnea Ondansetron HCl (Zofran) 4 mg IV Q6H PRN PRN Reason: Nausea/Vomiting Polyethylene Glycol (Miralax) 17 gm PO DAILY PRN PRN Reason: Constipation Potassium Chloride (Pharmacy To Dose - Potassium Replacement) 1 dose .XX ASDIRECTED [facility] Senna/Docusate Sodium (Senna Plus) 1 tab PO BID PRN PRN Reason: Constipation Assessment/Plan Comment:: Assessment/Plan: Acute: CAP - CXR shows increased density within the lingula - Failed outpatient treatment - Just completed oral Levaquin and Taper dose of Prednisone - Risk Factors: End Stage COPD and Chronic Respiratory Failure - She is high risk for pseudomonas due to recent use of steroids - IV Zosyn and Levaquin for pharmacy to [place]ally dose - Supplemental O2, Bronchodilators, IV Mg, IS q2 awake and Cough Suppressant/ Expectorant - Mycoplasma, Strep Pneumonia, Sputum Cx, and RVP - CXR series as indicated COPD Exacerbation - IV Steroids, Scheduled and PRN Bronchodilators, O2 - IS Q2 awake - Decongestant/Expectorant - Sputum Cx/Sx Respiratory Failure - Acute on Chronic Hypercapneic and Hypoxic - 2/2 Above - ABG: pH of 7.32, PO2 59.1, pCO2 of 81.1, HCO3 of 40.1, and O2 sat at 87% on 4L NC - Supplemental O2 - Treat underlying cause above Very High Risk for Cardiopulmonary Collapsed - I recommended transfer to [place] while in ED - Lateral transfer was refused so she had to come in for treatment Chronic: Impaired Vision HTN OA/DJD Osteoporosis Back Pain Migraines Chronic Pain Depression Anxiety Plan: Admit to inpatient with Telemetry Routine AM Labs Resume Home Medications PRN Medications Dietary consult for cachexia Morphine 0.5 mg IVP PRN for Dyspnea RT/PT/OT consult SW/CM for d/c planning Additional orders as above Code status: 1 We addressed her code status multiple times in the past. She knows his she is End Stage COPD and not a whole I could offer her here except for comfort measures at this point. Again, she remains full code.
[2018-10-26] MEDS: hydrALAZINE 20 MG/ML SDV IVPUSH PRN (18:27)
[2018-10-26] MEDS: Morphine 2 MG/ML Syringe IVPUSH PRN (18:27)
[2018-10-26] MEDS ORDERED: Levofloxacin/Dextrose 5%-Water 750 MG in Premix Bag 1 BAG IV SCH (18:30)
[2018-10-26] MEDS ORDERED: Albuterol 6.7 GM Inhaler INH PRN (18:54)
[2018-10-26] MEDS ORDERED: Nystatin Susp 100,000 Unit/ML 5 ML UD Cup PO PRN (18:56)
[2018-10-26] MEDS: ALPRAZolam 1 MG Tab PO SCH ×2 (19:10→20:08)
[2018-10-26] MEDS ORDERED: Potassium Chloride 10 MEQ in Premix Bag 1 BAG IV SCH (19:30)
[2018-10-26] MEDS ORDERED: Diltiazem 50 MG/10 ML SDV IVPUSH PRN ×2 (19:54→21:38)
[2018-10-26] MEDS ORDERED: Piperacillin/Tazobactam 4.5 GM in Sodium Chloride 0.9% 100 ML IV ONE (20:00)
[2018-10-26] MEDS: cloNIDine 0.3 MG/Day Transdermal Patch TRDERM SCH (20:29)
[2018-10-26] MEDS: QUEtiapine 25 MG Tab PO SCH (20:31)
[2018-10-26] MEDS: Mirtazapine 30 MG Tab PO SCH (20:31)
[2018-10-26] MEDS: Metoprolol Tartrate 25 MG Tab PO SCH (20:31)
[2018-10-26] MEDS: guaiFENesin 600 MG Tab.ER PO SCH (20:32)
[2018-10-26] MEDS: methylPREDNISolone Sodium Succinate 125 MG/2 ML SDV IVPUSH SCH (21:17)
[2018-10-26] MEDS: Levofloxacin/Dextrose 5%-Water 750 MG in Premix Bag 1 BAG IV SCH (21:17)
[2018-10-26] MEDS: Acetaminophen/HYDROcodone 325-10 MG Tab PO PRN (21:24)
[2018-10-26] MEDS ORDERED: AMINOPHYLLINE IV ONE ×2 (22:00)
[2018-10-26] MEDS ORDERED: WATER IV ONE ×2 (22:00)
[2018-10-26] MEDS ORDERED: DEXTROSE 5% IV ONE ×2 (22:00)
[2018-10-26] MEDS: Formoterol/Mometasone 100-5 MCG 8.8 GM Inhaler IH SCH (22:36)
[2018-10-27] MEDS: Piperacillin/Tazobactam 4.5 GM in Sodium Chloride 0.9% 100 ML IV SCH ×3 (03:05→20:15)
[2018-10-27] MEDS: Morphine 2 MG/ML Syringe IVPUSH PRN ×5 (03:27→20:39)
[2018-10-27] MEDS: Ondansetron 4 MG/2 ML SDV IV PRN ×2 (03:28→16:13)
[2018-10-27] MEDS: methylPREDNISolone Sodium Succinate 125 MG/2 ML SDV IVPUSH SCH ×3 (06:08→21:56)
[2018-10-27] MEDS: Magnesium Oxide 400 MG Tab PO SCH (08:23)
[2018-10-27] MEDS: guaiFENesin 600 MG Tab.ER PO SCH ×2 (08:23→20:02)
[2018-10-27] MEDS: Hydrochlorothiazide/Triamterene 25-37.5 MG Cap PO SCH (08:30)
[2018-10-27] MEDS: ALPRAZolam 1 MG Tab PO SCH ×2 (08:30→20:02)
[2018-10-27] MEDS: Metoprolol Tartrate 25 MG Tab PO SCH (08:30)
[2018-10-27] MEDS: Enoxaparin 40 MG/0.4 ML Syringe SUBCUT SCH (08:33)
--- NOTE | 2018-10-27 08:58 | PCM.PN ---
- General Info Date of Service: 10/27/18 Admission Dx/Problem (Free Text): Admission Diagnosis/Problem Admission Diagnosis/Problem Pneumonia Subjective Update: Follow Up Functional Status: Reports: Pain Controlled, Tolerating Diet, Ambulating, Urinating. Denies: New Symptoms - Review of Systems General: Reports: Fatigue. Denies: Fever, Chills HEENT: Reports: No Symptoms Pulmonary: Reports: Shortness of Breath, Cough Cardiovascular: Reports: Dyspnea on Exertion. Denies: Chest Pain Gastrointestinal: Denies: Abdominal Pain, Decreased Appetite, Nausea, Vomiting Genitourinary: Reports: No Symptoms Musculoskeletal: Reports: No Symptoms Skin: Denies: Cyanosis Neurological: Denies: Confusion, Difficulty Walking, Weakness, Gait Disturbance Psychiatric: Reports: Anxiety. Denies: Depression, Mood Lability, Agitation, Hallucinations, Suicidal Ideation Systems Review Comment:: Overnight her vitals were abnormal. She was tachycardic and has had high blood pressure levels. But with appropriate treatment, her pressures improved. She was also given aminophylline drip to help with bronchospasm. However she still feels about the same this morning despite being back to 4L on supplemental O2. She is afebrile, her leukocytosis resolved and her CRP improved to 21.8. - Patient Data Vitals - Most Recent: Last Vital Signs Temp 36.4 C 10/27/18 08:00 Pulse 108 H 10/27/18 08:00 Resp 27 H 10/27/18 08:00 BP 159/95 H 10/27/18 08:00 Pulse Ox 95 10/27/18 08:00 Weight - Most Recent: 61.689 kg I&O - Last 24 Hours: Intake & Output 10/26/18 10/27/18 10/27/18 22:59 06:59 14:59 Intake Total 1009 Balance 1009 Lab Results Last 24 Hours: Laboratory Results - last 24 hr 10/26/18 10/26/18 10/26/18 Range/Units 14:30 14:30 14:30 WBC (3.98-10.04) K/mm3 RBC (3.98-5.22) M/mm3 Hgb (11.2-15.7) gm/L Hct (34.1-44.9) % MCV (79.4-94.8) fl MCH (25.6-32.2) pg MCHC (32.2-35.5) g/dl RDW Std Deviation (36.4-46.3) fL Plt Count (182-369) K/mm3 MPV (9.4-12.3) fl Neut % (Auto) (34.0-71.1) % Lymph % (Auto) (19.3-51.7) % [place] % (Auto) (4.7-12.5) % Eos % (Auto) (0.7-5.8) Baso % (Auto) (0.1-1.2) % Neut # (Auto) (1.56-6.13) K/mm3 Lymph # (Auto) (1.18-3.74) K/mm3 [place] # (Auto) (0.24-0.36) K/mm3 Eos # (Auto) (0.04-0.36) K/mm3 Baso # (Auto) (0.01-0.08) K/mm3 Neutrophils % (Manual) (40-60) % Band Neutrophils % (0-10) % Lymphocytes % (Manual) (20-40) % Atypical Lymphs % % Monocytes % (Manual) (2-10) % Eosinophils % (Manual) (0.7-5.8) % Basophils % (Manual) (0.1-1.2) Manual Slide Review Toxic Granulation Platelet Estimate Plt Morphology Comment RBC Morph Comment Puncture Site ABG pH (7.35-7.45) ABG pCO2 (35.0-45.0) mmHg ABG pO2 (80.0-100.0) mmHg ABG HCO3 (22.0-26.0) meq/L ABG O2 Saturation (96.0-97.0) % ABG Base Excess (-2-2.0) Johnny Test A-a Gradient mmHg O2 Delivery Device Oxygen Flow Rate FiO2 (21.00-100.00) % Sodium 133 L (136-145) mEq/L Potassium 3.5 (3.5-5.1) mEq/L Chloride 89 L (98-107) mEq/L Carbon Dioxide 36 H (21-32) mEq/L Anion Gap 11.5 (5-15) BUN 12 (7-18) mg/dL Creatinine 0.9 (0.55-1.02) mg/dL Est Cr Clr Drug Dosing 64.70 mL/min Estimated GFR (MDRD) > 60 (>60) mL/min BUN/Creatinine Ratio 13.3 L (14-18) Glucose 121 H (74-106) mg/dL Lactic Acid 0.8 (0.4-2.0) mmol/L Calcium 9.6 (8.5-10.1) mg/dL Magnesium 1.7 L (1.8-2.4) mg/dl Total Bilirubin 0.2 (0.2-1.0) mg/dL AST 14 L (15-37) U/L ALT 21 (14-59) U/L Alkaline Phosphatase 117 H (46-116) U/L C-Reactive Protein 26.9 H* (<1.0) mg/dL Total Protein 8.0 (6.4-8.2) g/dl Albumin 2.9 L (3.4-5.0) g/dl Globulin 5.1 gm/dL Albumin/Globulin Ratio 0.6 L (1-2) Theophylline (10.0-20.0) ug/mL Mycoplasma pneumon IgM Negative (NEGATIVE) 10/26/18 10/26/18 10/27/18 Range/Units 14:35 16:29 05:28 WBC 13.61 H 9.68 (3.98-10.04) K/mm3 RBC 4.51 4.16 (3.98-5.22) M/mm3 Hgb 12.8 11.6 (11.2-15.7) gm/L Hct 38.4 36.0 (34.1-44.9) % MCV 85.1 86.5 (79.4-94.8) fl MCH 28.4 27.9 (25.6-32.2) pg MCHC 33.3 32.2 (32.2-35.5) g/dl RDW Std Deviation 40.6 40.3 (36.4-46.3) fL Plt Count 432 H 342 (182-369) K/mm3 MPV 9.1 L 9.1 L (9.4-12.3) fl Neut % (Auto) 93.0 H (34.0-71.1) % Lymph % (Auto) 4.5 L (19.3-51.7) % [place] % (Auto) 1.8 L (4.7-12.5) % Eos % (Auto) 0.1 L (0.7-5.8) Baso % (Auto) 0.2 (0.1-1.2) % Neut # (Auto) 9.00 H (1.56-6.13) K/mm3 Lymph # (Auto) 0.44 L (1.18-3.74) K/mm3 [place] # (Auto) 0.17 L (0.24-0.36) K/mm3 Eos # (Auto) 0.01 L (0.04-0.36) K/mm3 Baso # (Auto) 0.02 (0.01-0.08) K/mm3 Neutrophils % (Manual) 78 H (40-60) % Band Neutrophils % 1 (0-10) % Lymphocytes % (Manual) 12 L (20-40) % Atypical Lymphs % 0 % Monocytes % (Manual) 7 (2-10) % Eosinophils % (Manual) 2 (0.7-5.8) % Basophils % (Manual) 0 L (0.1-1.2) Manual Slide Review Abnormal smear Toxic Granulation Few Platelet Estimate Increased Plt Morphology Comment See note RBC Morph Comment Normal Puncture Site Rt radial ABG pH 7.32 L (7.35-7.45) ABG pCO2 81.1 H* (35.0-45.0) mmHg ABG pO2 59.0 L (80.0-100.0) mmHg ABG HCO3 40.1 H (22.0-26.0) meq/L ABG O2 Saturation 87.3 L (96.0-97.0) % ABG Base Excess 11.0 H (-2-2.0) Johnny Test Positive A-a Gradient 70 mmHg O2 Delivery Device Nasal cannula Oxygen Flow Rate 4.0 FiO2 36.00 (21.00-100.00) % Sodium (136-145) mEq/L Potassium (3.5-5.1) mEq/L Chloride (98-107) mEq/L Carbon Dioxide (21-32) mEq/L Anion Gap (5-15) BUN (7-18) mg/dL Creatinine (0.55-1.02) mg/dL Est Cr Clr Drug Dosing mL/min Estimated GFR (MDRD) (>60) mL/min BUN/Creatinine Ratio (14-18) Glucose (74-106) mg/dL Lactic Acid (0.4-2.0) mmol/L Calcium (8.5-10.1) mg/dL Magnesium (1.8-2.4) mg/dl Total Bilirubin (0.2-1.0) mg/dL AST (15-37) U/L ALT (14-59) U/L Alkaline Phosphatase (46-116) U/L C-Reactive Protein (<1.0) mg/dL Total Protein (6.4-8.2) g/dl Albumin (3.4-5.0) g/dl Globulin gm/dL Albumin/Globulin Ratio (1-2) Theophylline (10.0-20.0) ug/mL Mycoplasma pneumon IgM (NEGATIVE) 10/27/18 10/27/18 Range/Units 05:28 05:28 WBC (3.98-10.04) K/mm3 RBC (3.98-5.22) M/mm3 Hgb (11.2-15.7) gm/L Hct (34.1-44.9) % MCV (79.4-94.8) fl MCH (25.6-32.2) pg MCHC (32.2-35.5) g/dl RDW Std Deviation (36.4-46.3) fL Plt Count (182-369) K/mm3 MPV (9.4-12.3) fl Neut % (Auto) (34.0-71.1) % Lymph % (Auto) (19.3-51.7) % [place] % (Auto) (4.7-12.5) % Eos % (Auto) (0.7-5.8) Baso % (Auto) (0.1-1.2) % Neut # (Auto) (1.56-6.13) K/mm3 Lymph # (Auto) (1.18-3.74) K/mm3 [place] # (Auto) (0.24-0.36) K/mm3 Eos # (Auto) (0.04-0.36) K/mm3 Baso # (Auto) (0.01-0.08) K/mm3 Neutrophils % (Manual) (40-60) % Band Neutrophils % (0-10) % Lymphocytes % (Manual) (20-40) % Atypical Lymphs % % Monocytes % (Manual) (2-10) % Eosinophils % (Manual) (0.7-5.8) % Basophils % (Manual) (0.1-1.2) Manual Slide Review Toxic Granulation Platelet Estimate Plt Morphology Comment RBC Morph Comment Puncture Site ABG pH (7.35-7.45) ABG pCO2 (35.0-45.0) mmHg ABG pO2 (80.0-100.0) mmHg ABG HCO3 (22.0-26.0) meq/L ABG O2 Saturation (96.0-97.0) % ABG Base Excess (-2-2.0) Johnny Test A-a Gradient mmHg O2 Delivery Device Oxygen Flow Rate FiO2 (21.00-100.00) % Sodium 131 L (136-145) mEq/L Potassium 3.9 (3.5-5.1) mEq/L Chloride 89 L (98-107) mEq/L Carbon Dioxide 36 H (21-32) mEq/L Anion Gap 9.9 (5-15) BUN 16 (7-18) mg/dL Creatinine 0.9 (0.55-1.02) mg/dL Est Cr Clr Drug Dosing 65.05 mL/min Estimated GFR (MDRD) > 60 (>60) mL/min BUN/Creatinine Ratio 17.8 (14-18) Glucose 147 H (74-106) mg/dL Lactic Acid (0.4-2.0) mmol/L Calcium 9.5 (8.5-10.1) mg/dL Magnesium 2.1 (1.8-2.4) mg/dl Total Bilirubin (0.2-1.0) mg/dL AST (15-37) U/L ALT (14-59) U/L Alkaline Phosphatase (46-116) U/L C-Reactive Protein 21.8 H* (<1.0) mg/dL Total Protein (6.4-8.2) g/dl Albumin (3.4-5.0) g/dl Globulin gm/dL Albumin/Globulin Ratio (1-2) Theophylline 6.2 L (10.0-20.0) ug/mL Mycoplasma pneumon IgM (NEGATIVE) John Results Last 24 Hours: Microbiology 10/26/18 14:15 Gram Stain - Final Sputum - Expectorated 10/26/18 13:52 Influenza Type A Antigen Screen - Final Nasopharyngeal Swab NEGATIVE INFLUENZA A VIRUS AG Influenza Type B Antigen Screen - Final NEGATIVE INFLUENZA B VIRUS AG Med Orders - Current: Current Medications Acetaminophen (Tylenol) 650 mg PO Q4H PRN PRN Reason: Pain (Mild 1-3)/fever Hydrocodone Bitart/Acetaminophen (Zortman 325-10 Mg) 1 tab PO Q6H PRN PRN Reason: PAIN Last Admin: 10/26/18 21:24 Dose: 1 tab Albuterol (Proventil Hfa) 0 gm INH Q4H PRN PRN Reason: Shortness of Breath Albuterol/Ipratropium (Duoneb 3.0-0.5 Mg/3 Ml) 3 ml NEB Q4H PRN PRN Reason: Shortness Of Breath/wheezing Alprazolam (Xanax) 1 mg PO BID@0800,1999 [facility] Last Admin: 10/27/18 08:30 Dose: 1 mg Bisacodyl (Dulcolax) 5 mg PO DAILY PRN PRN Reason: Constipation Clonidine HCl (Catapres-Tts 3) 0.3 mg TRDERM Q7D [facility] Last Admin: 10/26/18 20:29 Dose: 0.3 mg Diltiazem HCl (Cardizem) 10 mg IVPUSH Q4H PRN PRN Reason: Tachycardia Docusate Sodium (Colace) 100 mg PO BID PRN PRN Reason: Constipation Enoxaparin Sodium (Lovenox) 40 mg SUBCUT DAILY [facility] Guaifenesin (Mucinex) 1,200 mg PO BID [facility] Last Admin: 10/27/18 08:23 Dose: 1,200 mg Hydralazine HCl (Apresoline) 20 mg IVPUSH Q4H PRN PRN Reason: Hypertension Last Admin: 10/26/18 18:27 Dose: 20 mg Piperacillin Sod/Tazobactam (Sod 4.5 gm/ Sodium Chloride) 100 mls @ 25 mls/hr IV Q8H [facility] Last Admin: 10/27/18 03:05 Dose: 25 mls/hr Levofloxacin/Dextrose 750 mg/ (Premix) 150 mls @ 100 mls/hr IV Q24H [facility] Last Admin: 10/26/18 21:17 Dose: 100 mls/hr Magnesium Oxide (Magnesium Oxide) 400 mg PO DAILY [facility] Last Admin: 10/27/18 08:23 Dose: 400 mg Magnesium Sulfate (Pharmacy To Dose - Magnesium Replacement) 1 dose .XX ASDIRECTED [facility] Methylprednisolone Sodium Succinate (Solu-Medrol) 80 mg IVPUSH Q8H [facility] Last Admin: 10/27/18 06:08 Dose: 80 mg Metoprolol Tartrate (Lopressor) 25 mg PO BID [facility] Last Admin: 10/27/18 08:30 Dose: Not Given Mirtazapine (Remeron) 30 mg PO BEDTIME [facility] Last Admin: 10/26/18 20:31 Dose: 30 mg Miscellaneous Information (Remove Patch) 1 ea TRDERM Q7D [facility] Mometasone Furoate/Formoterol Fumar (Dulera 100-5 Mcg) 0 puff IH BID [facility] Last Admin: 10/26/18 22:36 Dose: Not Given Morphine Sulfate (Morphine) 0.5 mg IVPUSH Q4H PRN PRN Reason: Dyspnea Last Admin: 10/27/18 08:31 Dose: 0.5 mg Nystatin (Mycostatin) 5 ml PO QID PRN PRN Reason: thrush Ondansetron HCl (Zofran) 4 mg IV Q6H PRN PRN Reason: Nausea/Vomiting Last Admin: 10/27/18 03:28 Dose: 4 mg Roflumilast 500 Mg 500 each PO DAILY [facility] Polyethylene Glycol (Miralax) 17 gm PO DAILY PRN PRN Reason: Constipation Potassium Chloride (Pharmacy To Dose - Potassium Replacement) 1 dose .XX ASDIRECTED [facility] Quetiapine Fumarate (Seroquel) 50 mg PO BEDTIME [facility] Last Admin: 10/26/18 20:31 Dose: 50 mg Senna/Docusate Sodium (Senna Plus) 1 tab PO BID PRN PRN Reason: Constipation Theophylline (Theophylline Anhydrous) 300 mg PO DAILY [facility] Tiotropium Benavides (Spiriva Handihaler) 18 mcg INH DAILY [facility] Triamterene/HCTZ (Dyazide 25-37.5 Mg) 1 each PO DAILY [facility] Last Admin: 10/27/18 08:30 Dose: 1 each Discontinued Medications Albuterol (Proventil Neb Soln) 2.5 mg NEB ONETIME ONE Stop: 10/26/18 14:44 Last Admin: 10/26/18 15:15 Dose: 2.5 mg Albuterol (Proventil Neb Soln) 2.5 mg NEB ONETIME ONE Stop: 10/26/18 15:33 Last Admin: 10/26/18 16:06 Dose: 2.5 mg Albuterol/Ipratropium (Duoneb 3.0-0.5 Mg/3 Ml) 3 ml NEB ONETIME ONE Stop: 10/26/18 13:59 Last Admin: 10/26/18 14:32 Dose: 3 ml Alprazolam (Xanax) 1 mg PO BID [facility] Last Admin: 10/26/18 20:08 Dose: Not Given Clonidine HCl (Catapres) 0.1 mg PO ONETIME ONE Stop: 10/26/18 16:40 Last Admin: 10/26/18 16:55 Dose: 0.1 mg Diltiazem HCl (Cardizem) 10 mg IVPUSH Q6H PRN PRN Reason: Tachycardia Last Admin: 10/26/18 20:22 Dose: 10 mg Glycopyrrolate (Seebri Neohaler) 0 mcg IH BID [facility] Hydromorphone HCl (Dilaudid) 0.5 mg IVPUSH ONETIME ONE Stop: 10/26/18 14:45 Last Admin: 10/26/18 14:59 Dose: 0.5 mg Lactated Ringer's (Ringers, Lactated) 500 mls @ 999 mls/hr IV .BOLUS ONE Stop: 10/26/18 14:25 Last Admin: 10/26/18 14:12 Dose: 999 mls/hr Ceftriaxone Sodium 2 gm/ (Sodium Chloride) 100 mls @ 200 mls/hr IV NOW STA Stop: 10/26/18 15:12 Last Admin: 10/26/18 15:00 Dose: 200 mls/hr Lactated Ringer's (Ringers, Lactated) 1,000 mls @ 125 mls/hr IV ASDIRECTED [facility] Last Admin: 10/26/18 16:55 Dose: 125 mls/hr Magnesium Sulfate 2 gm/ Premix 50 mls @ 50 mls/hr IV ONETIME ONE Stop: 10/26/18 19:14 Last Admin: 10/26/18 18:27 Dose: 50 mls/hr Potassium Chloride 10 meq/ (Premix) 100 mls @ 100 mls/hr IV Q1H [facility] Stop: 10/26/18 23:29 Last Admin: 10/26/18 20:14 Dose: Not Given Levofloxacin/Dextrose 750 mg/ (Premix) 150 mls @ 100 mls/hr IV Q24H [facility] Last Admin: 10/26/18 20:15 Dose: Not Given Piperacillin Sod/Tazobactam (Sod 4.5 gm/ Sodium Chloride) 100 mls @ 200 mls/hr IV ONETIME ONE Stop: 10/26/18 20:29 Last Admin: 10/26/18 20:33 Dose: 200 mls/hr Magnesium Sulfate/Dextrose 1 (gm/ Premix) 100 mls @ 100 mls/hr IV ONETIME ONE Stop: 10/26/18 19:49 Last Admin: 10/26/18 20:01 Dose: Not Given Aminophylline 250 mg/ Dextrose (/Water) 60 mls @ 6.84 mls/hr IV ONETIME ONE Stop: 10/27/18 06:46 Last Admin: 10/27/18 01:13 Dose: Not Given Aminophylline 250 mg/ Sodium (Chloride) 60 mls @ 6.84 mls/hr IV ONETIME ONE Stop: 10/27/18 08:01 Last Admin: 10/26/18 23:27 Dose: 0.5 mg/kg/hr, 6.84 mls/hr Lorazepam (Ativan) 1 mg IVPUSH ONETIME ONE Stop: 10/26/18 13:57 Last Admin: 10/26/18 14:12 Dose: 1 mg Lorazepam (Ativan) 0.5 mg IVPUSH ONETIME ONE Stop: 10/26/18 16:40 Last Admin: 10/26/18 16:54 Dose: 0.5 mg Methylprednisolone Sodium Succinate (Solu-Medrol) 125 mg IVPUSH ONETIME ONE Stop: 10/26/18 14:45 Last Admin: 10/26/18 15:00 Dose: 125 mg Metoprolol Tartrate (Lopressor) 5 mg IVPUSH Q4H PRN PRN Reason: Tachycardia Last Admin: 10/26/18 19:11 Dose: 5 mg - Exam Quality Assessment: Supplemental Oxygen General: Alert, Moderate Distress, Other (cachexia and looks miserable) HEENT: Pupils Equal, Pupils Reactive, EOMI, Mucous Membr. Moist/Goldonna, Other ( facial edema) Neck: Supple Lungs: Wheezing, Other (poor air entry and very tight) Cardiovascular: Tachycardia, Other GI/Abdominal Exam: Normal Bowel Sounds, Soft, Non-Tender, No Organomegaly, No Distention, No Abnormal Bruit, No Mass (Female) Exam: Deferred Back Exam: Normal Inspection, Decreased Range of Motion Extremities: Normal Inspection, Normal Range of Motion, Non-Tender, No Pedal Edema, Normal Capillary Refill Peripheral Pulses: 2+: Dorsalis Pedis (L), Dorsalis Pedis (R) Skin: Warm, Dry, Intact Neurological: No New Focal Deficit Psy/Mental Status: Alert, Normal Affect, Normal Mood - Problem List Review Problem List Initiated/Reviewed/Updated: Yes - My Orders Last 24 Hours: My Active Orders 10/26/18 18:05 hydrALAZINE [Apresoline] 20 mg IVPUSH Q4H PRN 10/26/18 18:06 Height and Weight [RC] 04 Consult to Case Management/Business Office Specialist [CONS] Routine Consult to Spiritual Care [CONS] Routine OT Evaluation and Treatment [CONS] Routine PT Evaluation and Treatment [CONS] Routine Respiratory Care Assess and Treatment [CONS] Routine Acetaminophen [Tylenol] 650 mg PO Q4H PRN Albuterol/Ipratropium [DuoNeb 3.0-0.5 MG/3 ML] 3 ml NEB Q4H PRN Bisacodyl [Dulcolax] 5 mg PO DAILY PRN Docusate Sodium [Colace] 100 mg PO BID PRN Docusate Sodium/Sennosides [Senna Plus] 1 tab PO BID PRN Morphine 0.5 mg IVPUSH Q4H PRN Ondansetron [Zofran] 4 mg IV Q6H PRN Polyethylene Glycol 3350 [MiraLAX] 17 gm PO DAILY PRN Resuscitation Status Routine 10/26/18 18:07 Intake and Output [RC] 04,16 Oxygen Therapy [RC] PRN VTE/DVT Education [RC] PER UNIT ROUTINE Vital Signs [RC] Q4HR 10/26/18 18:08 RT Aerosol Therapy [RC] ASDIRECTED 10/26/18 18:15 Pharmacy to Dose - Magnesium R [Pharmacy to Dose - Magnesium Replacement] 1 dose .XX ASDIRECTED Pharmacy to Dose - Potassium R [Pharmacy to Dose - Potassium Replacement] 1 dose .XX ASDIRECTED 10/26/18 18:43 Acapella [RT Chest Physiotherapy] [RC] ASDIRECTED 10/26/18 18:51 Consult to Dietary [Consult to Escort Car Driver] [CONS] Routine 10/26/18 18:54 Albuterol [Proventil HFA] 0 gm INH Q4H PRN 10/26/18 18:56 Nystatin [Mycostatin] 5 ml PO QID PRN 10/26/18 19:01 Acetaminophen/HYDROcodone [Zortman 325-10 MG] 1 tab PO Q6H PRN 10/26/18 19:14 RESPIRATORY PANEL Stat 10/26/18 19:41 Patient Status [ADT] Routine 10/26/18 20:00 cloNIDine [Catapres-TTS 3] 0.3 mg TRDERM Q7D 10/26/18 20:05 STREP PNEUMONIAE ANTIGEN [MREF] Stat 10/26/18 21:00 Levofloxacin/Dextrose 5%-Water [Levaquin in D5W 750 MG/150 ML] 750 mg Premix Bag 1 bag IV Q24H Metoprolol Tartrate [Lopressor] 25 mg PO BID Mirtazapine [Remeron] 30 mg PO BEDTIME Mometasone/Formoterol [Dulera 100-5 MCG] 0 puff IH BID QUEtiapine [SEROquel] 50 mg PO BEDTIME guaiFENesin [Mucinex] 1,200 mg PO BID 10/26/18 21:38 Diltiazem [Cardizem] 10 mg IVPUSH Q4H PRN 10/26/18 22:00 methylPREDNISolone Sod Succ [Solu-MEDROL] 80 mg IVPUSH Q8H 10/26/18 Dinner Regular Diet [DIET] 10/27/18 04:00 Piperacillin/Tazobactam [Zosyn] 4.5 gm Sodium Chloride 0.9% [Normal Saline] 100 ml IV Q8H 10/27/18 07:50 Up With Assistance [RC] ASDIRECTED Up ad Debbie [RC] ASDIRECTED 10/27/18 08:00 ALPRAZolam [Xanax] 1 mg PO BID@799,199910/27/18 09:00 Enoxaparin [Lovenox] 40 mg SUBCUT DAILY HCTZ/Triamterene [Dyazide 25-37.5 MG] 1 each PO DAILY Magnesium Oxide 400 mg PO DAILY Patient's Own Medication [Ptom] 500 each PO DAILY Theophylline [Theophylline Anhydrous] 300 mg PO DAILY Tiotropium [Spiriva HandiHaler] 18 mcg INH DAILY 10/28/18 05:11 BASIC METABOLIC PANEL,BMP [CHEM] AM C-REACTIVE PROTEIN [CHEM] AM CBC WITH AUTO DIFF [HEME] AM MAGNESIUM [CHEM] AM 10/28/18 07:00 Chest 1V Frontal [CR] Routine 10/29/18 05:11 BASIC METABOLIC PANEL,BMP [CHEM] AM C-REACTIVE PROTEIN [CHEM] AM CBC WITH AUTO DIFF [HEME] AM MAGNESIUM [CHEM] AM 10/30/18 05:11 BASIC METABOLIC PANEL,BMP [CHEM] AM C-REACTIVE PROTEIN [CHEM] AM CBC WITH AUTO DIFF [HEME] AM MAGNESIUM [CHEM] AM 11/02/18 20:00 Remove Patch 1 ea TRDERM Q7D - Plan Plan:: Assessment/Plan: Acute: CAP 2/2 Probable Strep Pneumoniae - CXR shows increased density within the lingula - Failed outpatient treatment - Just completed oral Levaquin and Taper dose of Prednisone - Risk Factors: End Stage COPD and Chronic Respiratory Failure - She is high risk for pseudomonas due to recent use of steroids - Continue IV Zosyn and Levaquin for pharmacy to renally dose - Supplemental O2, Bronchodilators, IV Mg, IS q2 awake and Cough Suppressant/ Expectorant - Mycoplasma and Blood Cx-both negative - RVP pending - Sputum Cx pos for Probable Strep Pneumonia - CXR series as indicated End Stage COPD Exacerbation - IV Steroids, Scheduled and PRN Bronchodilators, O2 - IS Q2 awake - Decongestant/Expectorant - Sputum Cx/Sx-Probable Strep Pneumonia Respiratory Failure,At baseline - Acute on Chronic Hypercapneic and Hypoxic - 2/2 Above - ABG: pH of 7.32, PO2 59.1, pCO2 of 81.1, HCO3 of 40.1, and O2 sat at 87% on 4L NC - Supplemental O2; 4L - Treat underlying cause above Tachycardic and Hypertension - Side effects of Medications - Switched Albuterol to Levalbuterol scheduled and as needed - Changed Metoprol to CCB to prevent further bronchospasm - PRN Cardizem 10 mg IVP Q4H PRN for rate control agent End of Life Care - She is not agreeable to Hospice/Palliative Care - Has had multiple discussions in the past - She is looks miserable Chronic: Impaired Vision HTN OA/DJD Osteoporosis Back Pain Migraines Chronic Pain Depression Anxiety Plan: She is essentially the same as yesterday Routine AM Labs PRN Medications Continue oral theophylline for bronchospasm and stimulant Educated nurse and patient to be careful with benzos and narcotics; both have synergistic effect to cause respiratory depression RT/PT/OT consult SW/CM for d/c planning Additional orders as above Code status: 1
[2018-10-27] MEDS ORDERED: Theophylline 300 MG Tab.ER PO SCH ×2 (09:00→21:00)
[2018-10-27] MEDS ORDERED: Glycopyrrolate 15.6 MCG Cap.W.Dev Kit of 6 IH SCH (09:00)
[2018-10-27] MEDS ORDERED: Diltiazem 180 MG Cap.CD PO ONE (09:11)
[2018-10-27] MEDS: ROFLUMILAST 500 MG PO SCH (09:32)
[2018-10-27] MEDS: Acetaminophen/HYDROcodone 325-10 MG Tab PO PRN ×2 (09:33→17:44)
[2018-10-27] MEDS: Formoterol/Mometasone 100-5 MCG 8.8 GM Inhaler IH SCH ×2 (09:49→21:00)
[2018-10-27] MEDS: Tiotropium Inhaler 18 MCG Inhalation Powder Cap Kit of 5 INH SCH (09:49)
[2018-10-27] MEDS: hydrALAZINE 20 MG/ML SDV IVPUSH PRN ×2 (11:36→20:59)
[2018-10-27] MEDS: Levalbuterol HCl 1.25 MG/3 ML Neb NEB PRN (14:53)
[2018-10-27] MEDS: Diltiazem 125 MG in Sodium Chloride 0.9% 100 ML IV SCH (17:29)
[2018-10-27] MEDS ORDERED: Aminophylline 250 MG/10 ML SDV IV ONE (18:48)
[2018-10-27] MEDS: Levalbuterol HCl 1.25 MG/0.5 ML Neb NEB SCH (20:22)
[2018-10-27] MEDS: Ipratropium 0.02% 0.5 MG/2.5 ML Neb Soln NEB SCH (20:22)
[2018-10-27] MEDS: Levofloxacin/Dextrose 5%-Water 750 MG in Premix Bag 1 BAG IV SCH (20:22)
[2018-10-27] MEDS: Mirtazapine 30 MG Tab PO SCH (20:31)
[2018-10-27] MEDS: QUEtiapine 25 MG Tab PO SCH (20:31)
[2018-10-27] MEDS ORDERED: Digoxin 500 MCG/2 ML Amp IVPUSH ONE (23:45)
[2018-10-28] MEDS ORDERED: Sodium Chloride 0.9% 100 ML ONE (01:05)
[2018-10-28] MEDS: Diltiazem 125 MG in Sodium Chloride 0.9% 100 ML IV SCH (01:18)
[2018-10-28] MEDS: Piperacillin/Tazobactam 4.5 GM in Sodium Chloride 0.9% 100 ML IV SCH ×3 (04:04→21:06)
[2018-10-28] MEDS: Levalbuterol HCl 1.25 MG/3 ML Neb NEB PRN ×2 (04:17→12:53)
[2018-10-28] MEDS: Morphine 2 MG/ML Syringe IVPUSH PRN ×2 (04:23→13:23)
[2018-10-28] MEDS: hydrALAZINE 20 MG/ML SDV IVPUSH PRN (05:03)
[2018-10-28] MEDS: methylPREDNISolone Sodium Succinate 125 MG/2 ML SDV IVPUSH SCH ×3 (05:36→21:03)
[2018-10-28] MEDS ORDERED: Digoxin 500 MCG/2 ML Amp IVPUSH ONE (06:00)
[2018-10-28] MEDS ORDERED: Sodium Chloride 0.9% 500 ML IV ONE (07:47)
--- NOTE | 2018-10-28 08:12 | PCM.PN ---
- General Info Date of Service: 10/28/18 Admission Dx/Problem (Free Text): Admission Diagnosis/Problem Admission Diagnosis/Problem Pneumonia Subjective Update: Follow Up Functional Status: Reports: Tolerating Diet, Urinating. Denies: Pain Controlled , Ambulating, New Symptoms - Review of Systems General: Reports: Fatigue, Malaise. Denies: Fever, Chills HEENT: Reports: No Symptoms Pulmonary: Reports: Shortness of Breath, Cough, Wheezing. Denies: Hemoptysis Cardiovascular: Reports: Dyspnea on Exertion. Denies: Chest Pain, Palpitations , Edema, Lightheadedness Gastrointestinal: Reports: Decreased Appetite. Denies: Abdominal Pain, Nausea, Vomiting Genitourinary: Reports: No Symptoms Musculoskeletal: Denies: Neck Pain Skin: Denies: Cyanosis, Diaphoresis, Bruising Neurological: Denies: Confusion, Difficulty Walking, Weakness, Gait Disturbance Psychiatric: Reports: Anxiety. Denies: Agitation, Hallucinations Systems Review Comment:: Slept on an doff last night. She feels tired. Her heart rate improved overnight but ended up coming back up early this morning. Her chemistry is considerably abnormal this morning. However her repeat ABG remains stable with slightly improved O2 than yesterday. Her theophylline level is slightly high at 22.3 (20 is upper end or normal). Her EKG this AM shows sinus tachycardia with a HR of 130. - Patient Data Vitals - Most Recent: Last Vital Signs Temp 36.8 C 10/28/18 04:00 Pulse 137 H 10/28/18 06:00 Resp 28 H 10/28/18 06:00 BP 145/65 H 10/28/18 07:00 Pulse Ox 97 10/28/18 06:01 Weight - Most Recent: 63.049 kg I&O - Last 24 Hours: Intake & Output 10/27/18 10/28/18 10/28/18 22:59 06:59 14:59 Intake Total 1440 652 Output Total 400 600 Balance 1040 52 Imaging Impressions - Last 24 Hours: EKG this AM at 08:19 Sinus tachycardia with VPCs and a HR of 130 Lab Results Last 24 Hours: Laboratory Results - last 24 hr 10/26/18 10/27/18 10/28/18 Range/Units 19:14 18:57 05:50 WBC 15.70 H (3.98-10.04) K/mm3 RBC 3.92 L (3.98-5.22) M/mm3 Hgb 10.9 L (11.2-15.7) gm/L Hct 33.6 L (34.1-44.9) % MCV 85.7 (79.4-94.8) fl MCH 27.8 (25.6-32.2) pg MCHC 32.4 (32.2-35.5) g/dl RDW Std Deviation 40.1 (36.4-46.3) fL Plt Count 410 H (182-369) K/mm3 MPV 9.3 L (9.4-12.3) fl Neut % (Auto) 91.4 H (34.0-71.1) % Lymph % (Auto) 3.2 L (19.3-51.7) % [place] % (Auto) 4.3 L (4.7-12.5) % Eos % (Auto) 0 L (0.7-5.8) Baso % (Auto) 0.1 (0.1-1.2) % Neut # (Auto) 14.36 H (1.56-6.13) K/mm3 Lymph # (Auto) 0.50 L (1.18-3.74) K/mm3 [place] # (Auto) 0.67 H (0.24-0.36) K/mm3 Eos # (Auto) 0.00 L (0.04-0.36) K/mm3 Baso # (Auto) 0.02 (0.01-0.08) K/mm3 Manual Slide Review Abnormal smear Puncture Site Rt radial ABG pH 7.38 (7.35-7.45) ABG pCO2 67.2 H (35.0-45.0) mmHg ABG pO2 62.0 L (80.0-100.0) mmHg ABG HCO3 38.7 H (22.0-26.0) meq/L ABG O2 Saturation 88.1 L (96.0-97.0) % ABG Base Excess 11.4 H (-2-2.0) Johnny Test Positive A-a Gradient 85 mmHg O2 Delivery Device Nasal cannula Oxygen Flow Rate 4.0 FiO2 36.00 (21.00-100.00) % Sodium (136-145) mEq/L Potassium (3.5-5.1) mEq/L Chloride (98-107) mEq/L Carbon Dioxide (21-32) mEq/L Anion Gap (5-15) BUN (7-18) mg/dL Creatinine (0.55-1.02) mg/dL Est Cr Clr Drug Dosing mL/min Estimated GFR (MDRD) (>60) mL/min BUN/Creatinine Ratio (14-18) Glucose (74-106) mg/dL Calcium (8.5-10.1) mg/dL Magnesium (1.8-2.4) mg/dl C-Reactive Protein (<1.0) mg/dL Adenovirus (PCR) Not detected (Not Detected) B. pertussis DNA (PCR) Not detected (Not Detected) B.parapertussis DNA PCR Not detected (Not Detected) C. pneumoniae DNA (PCR) Not detected (Not Detected) Coronavirus (PCR) Not detected (Not Detected) Human Metapneumovir PCR Not detected (Not Detected) Influenza A (RT-PCR) Not detected (Not Detected) Influenza B (RT-PCR) Not detected (Not Detected) M. pneumoniae (PCR) Not detected (Not Detected) Parainfluen 1,2,3,4 PCR Not detected (Not Detected) RSV (PCR) Not detected (Not Detected) Entero/Rhino (PCR) Not detected (Not Detected) 10/28/18 Range/Units 05:50 WBC (3.98-10.04) K/mm3 RBC (3.98-5.22) M/mm3 Hgb (11.2-15.7) gm/L Hct (34.1-44.9) % MCV (79.4-94.8) fl MCH (25.6-32.2) pg MCHC (32.2-35.5) g/dl RDW Std Deviation (36.4-46.3) fL Plt Count (182-369) K/mm3 MPV (9.4-12.3) fl Neut % (Auto) (34.0-71.1) % Lymph % (Auto) (19.3-51.7) % [place] % (Auto) (4.7-12.5) % Eos % (Auto) (0.7-5.8) Baso % (Auto) (0.1-1.2) % Neut # (Auto) (1.56-6.13) K/mm3 Lymph # (Auto) (1.18-3.74) K/mm3 [place] # (Auto) (0.24-0.36) K/mm3 Eos # (Auto) (0.04-0.36) K/mm3 Baso # (Auto) (0.01-0.08) K/mm3 Manual Slide Review Puncture Site ABG pH (7.35-7.45) ABG pCO2 (35.0-45.0) mmHg ABG pO2 (80.0-100.0) mmHg ABG HCO3 (22.0-26.0) meq/L ABG O2 Saturation (96.0-97.0) % ABG Base Excess (-2-2.0) Johnny Test A-a Gradient mmHg O2 Delivery Device Oxygen Flow Rate FiO2 (21.00-100.00) % Sodium 128 L (136-145) mEq/L Potassium 3.2 L (3.5-5.1) mEq/L Chloride 85 L (98-107) mEq/L Carbon Dioxide 32 (21-32) mEq/L Anion Gap 14.2 (5-15) BUN 29 H (7-18) mg/dL Creatinine 1.9 H (0.55-1.02) mg/dL Est Cr Clr Drug Dosing 30.76 mL/min Estimated GFR (MDRD) 28 (>60) mL/min BUN/Creatinine Ratio 15.3 (14-18) Glucose 216 H (74-106) mg/dL Calcium 9.3 (8.5-10.1) mg/dL Magnesium 1.8 (1.8-2.4) mg/dl C-Reactive Protein 7.7 H* (<1.0) mg/dL Adenovirus (PCR) (Not Detected) B. pertussis DNA (PCR) (Not Detected) B.parapertussis DNA PCR (Not Detected) C. pneumoniae DNA (PCR) (Not Detected) Coronavirus (PCR) (Not Detected) Human Metapneumovir PCR (Not Detected) Influenza A (RT-PCR) (Not Detected) Influenza B (RT-PCR) (Not Detected) M. pneumoniae (PCR) (Not Detected) Parainfluen 1,2,3,4 PCR (Not Detected) RSV (PCR) (Not Detected) Entero/Rhino (PCR) (Not Detected) John Results Last 24 Hours: Microbiology 10/26/18 20:05 Streptococcus pneumoniae Antigen (M - Final Urine 10/26/18 14:55 Aerobic Blood Culture - Preliminary Blood - Venous - Lab Draw NO GROWTH AFTER 1 DAY Anaerobic Blood Culture - Preliminary NO GROWTH AFTER 1 DAY 10/26/18 14:45 Aerobic Blood Culture - Preliminary Blood - Venous NO GROWTH AFTER 1 DAY Anaerobic Blood Culture - Preliminary NO GROWTH AFTER 1 DAY 10/26/18 14:15 Gram Stain - Final Sputum - Expectorated Sputum Culture - Preliminary Probable Strep Pneumoniae Med Orders - Current: Current Medications Acetaminophen (Tylenol) 650 mg PO Q4H PRN PRN Reason: Pain (Mild 1-3)/fever Hydrocodone Bitart/Acetaminophen ([place] 325-10 Mg) 1 tab PO Q6H PRN PRN Reason: PAIN Last Admin: 10/27/18 17:44 Dose: 1 tab Alprazolam (Xanax) 1 mg PO BID@0800,2000 [facility] Last Admin: 10/27/18 20:02 Dose: 1 mg Bisacodyl (Dulcolax) 5 mg PO DAILY PRN PRN Reason: Constipation Clonidine HCl (Catapres-Tts 3) 0.3 mg TRDERM Q7D [facility] Last Admin: 10/26/18 20:29 Dose: 0.3 mg Diltiazem HCl (Cardizem) 10 mg IVPUSH Q4H PRN PRN Reason: Tachycardia Last Admin: 10/27/18 15:20 Dose: 10 mg Diltiazem HCl (Cardizem Cd) 180 mg PO DAILY [facility] Docusate Sodium (Colace) 100 mg PO BID PRN PRN Reason: Constipation Enoxaparin Sodium (Lovenox) 40 mg SUBCUT DAILY [facility] Last Admin: 10/27/18 08:33 Dose: 40 mg Guaifenesin (Mucinex) 1,200 mg PO BID [facility] Last Admin: 10/27/18 20:02 Dose: 1,200 mg Hydralazine HCl (Apresoline) 20 mg IVPUSH Q4H PRN PRN Reason: Hypertension Last Admin: 10/28/18 05:03 Dose: 20 mg Piperacillin Sod/Tazobactam (Sod 4.5 gm/ Sodium Chloride) 100 mls @ 25 mls/hr IV Q8H [facility] Last Admin: 10/28/18 04:04 Dose: 25 mls/hr Levofloxacin/Dextrose 750 mg/ (Premix) 150 mls @ 100 mls/hr IV Q24H [facility] Last Admin: 10/27/18 20:22 Dose: 100 mls/hr Diltiazem HCl 125 mg/ Sodium (Chloride) 125 mls @ 5 mls/hr IV TITRATE SHAUN; Protocol Last Titration: 10/28/18 05:11 Dose: 15 mg/hr, 15 mls/hr Sodium Chloride (Normal Saline) 500 mls @ 999 mls/hr IV .BOLUS ONE Stop: 10/28/18 08:17 Sodium Chloride (Normal Saline) 1,000 mls @ 50 mls/hr IV ASDIRECTED SHAUN Ipratropium [place] (Atrovent) 0.5 mg NEB BID [facility] Last Admin: 10/27/18 20:22 Dose: 0.5 mg Levalbuterol HCl (Xopenex) 1.25 mg NEB Q6H PRN PRN Reason: SOB/Dyspnea Last Admin: 10/28/18 04:17 Dose: 1.25 mg Levalbuterol HCl (Xopenex) 1.25 mg NEB BID [facility] Last Admin: 10/27/18 20:22 Dose: 1.25 mg Magnesium Oxide (Magnesium Oxide) 400 mg PO DAILY [facility] Last Admin: 10/27/18 08:23 Dose: 400 mg Magnesium Sulfate (Pharmacy To Dose - Magnesium Replacement) 1 dose .XX ASDIRECTED [facility] Methylprednisolone Sodium Succinate (Solu-Medrol) 80 mg IVPUSH Q8H [facility] Last Admin: 10/28/18 05:36 Dose: 80 mg Mirtazapine (Remeron) 30 mg PO BEDTIME [facility] Last Admin: 10/27/18 20:31 Dose: 30 mg Miscellaneous Information (Remove Patch) 1 ea TRDERM Q7D SHAUN Mometasone Furoate/Formoterol Fumar (Dulera 100-5 Mcg) 0 puff IH BID [facility] Last Admin: 10/27/18 21:00 Dose: Not Given Morphine Sulfate (Morphine) 0.5 mg IVPUSH Q4H PRN PRN Reason: Dyspnea Last Admin: 10/28/18 04:23 Dose: 0.5 mg Nystatin (Mycostatin) 5 ml PO QID PRN PRN Reason: thrush Ondansetron HCl (Zofran) 4 mg IV Q6H PRN PRN Reason: Nausea/Vomiting Last Admin: 10/27/18 16:13 Dose: 4 mg Roflumilast 500 Mg 500 each PO DAILY [facility] Last Admin: 10/27/18 09:32 Dose: Not Given Polyethylene Glycol (Miralax) 17 gm PO DAILY PRN PRN Reason: Constipation Potassium Chloride (Pharmacy To Dose - Potassium Replacement) 1 dose .XX ASDIRECTED [facility] Quetiapine Fumarate (Seroquel) 50 mg PO BEDTIME [facility] Last Admin: 10/27/18 20:31 Dose: 50 mg Senna/Docusate Sodium (Senna Plus) 1 tab PO BID PRN PRN Reason: Constipation Tiotropium [place] (Spiriva Handihaler) 18 mcg INH DAILY [facility] Last Admin: 10/27/18 09:49 Dose: Not Given Triamterene/HCTZ (Dyazide 25-37.5 Mg) 1 each PO DAILY [facility] Last Admin: 10/27/18 08:30 Dose: 1 each Discontinued Medications Albuterol (Proventil Neb Soln) 2.5 mg NEB ONETIME ONE Stop: 10/26/18 14:44 Last Admin: 10/26/18 15:15 Dose: 2.5 mg Albuterol (Proventil Neb Soln) 2.5 mg NEB ONETIME ONE Stop: 10/26/18 15:33 Last Admin: 10/26/18 16:06 Dose: 2.5 mg Albuterol (Proventil Hfa) 0 gm INH Q4H PRN PRN Reason: Shortness of Breath Albuterol/Ipratropium (Duoneb 3.0-0.5 Mg/3 Ml) 3 ml NEB ONETIME ONE Stop: 10/26/18 13:59 Last Admin: 10/26/18 14:32 Dose: 3 ml Albuterol/Ipratropium (Duoneb 3.0-0.5 Mg/3 Ml) 3 ml NEB Q4H PRN PRN Reason: Shortness Of Breath/wheezing Alprazolam (Xanax) 1 mg PO BID [facility] Last Admin: 10/26/18 20:08 Dose: Not Given Aminophylline (Aminophylline) 250 mg IV ONETIME ONE Stop: 10/27/18 18:49 Last Admin: 10/27/18 21:40 Dose: Not Given Clonidine HCl (Catapres) 0.1 mg PO ONETIME ONE Stop: 10/26/18 16:40 Last Admin: 10/26/18 16:55 Dose: 0.1 mg Digoxin (Lanoxin) 250 mcg IVPUSH ONETIME ONE Stop: 10/27/18 23:46 Last Admin: 10/28/18 00:03 Dose: 250 mcg Digoxin (Lanoxin) 125 mcg IVPUSH ONETIME ONE Stop: 10/28/18 06:01 Last Admin: 10/28/18 06:00 Dose: 125 mcg Diltiazem HCl (Cardizem) 10 mg IVPUSH Q6H PRN PRN Reason: Tachycardia Last Admin: 10/26/18 20:22 Dose: 10 mg Diltiazem HCl (Cardizem Cd) 180 mg PO ONETIME ONE Stop: 10/27/18 09:12 Last Admin: 10/27/18 09:38 Dose: 180 mg Glycopyrrolate (Seebri Neohaler) 0 mcg IH BID SHAUN Hydromorphone HCl (Dilaudid) 0.5 mg IVPUSH ONETIME ONE Stop: 10/26/18 14:45 Last Admin: 10/26/18 14:59 Dose: 0.5 mg Lactated Ringer's (Ringers, Lactated) 500 mls @ 999 mls/hr IV .BOLUS ONE Stop: 10/26/18 14:25 Last Admin: 10/26/18 14:12 Dose: 999 mls/hr Ceftriaxone Sodium 2 gm/ (Sodium Chloride) 100 mls @ 200 mls/hr IV NOW STA Stop: 10/26/18 15:12 Last Admin: 10/26/18 15:00 Dose: 200 mls/hr Lactated Ringer's (Ringers, Lactated) 1,000 mls @ 125 mls/hr IV ASDIRECTED [facility] Last Admin: 10/26/18 16:55 Dose: 125 mls/hr Magnesium Sulfate 2 gm/ Premix 50 mls @ 50 mls/hr IV ONETIME ONE Stop: 10/26/18 19:14 Last Admin: 10/26/18 18:27 Dose: 50 mls/hr Potassium Chloride 10 meq/ (Premix) 100 mls @ 100 mls/hr IV Q1H SHAUN Stop: 10/26/18 23:29 Last Admin: 10/26/18 20:14 Dose: Not Given Levofloxacin/Dextrose 750 mg/ (Premix) 150 mls @ 100 mls/hr IV Q24H SHAUN Last Admin: 10/26/18 20:15 Dose: Not Given Piperacillin Sod/Tazobactam (Sod 4.5 gm/ Sodium Chloride) 100 mls @ 200 mls/hr IV ONETIME ONE Stop: 10/26/18 20:29 Last Admin: 10/26/18 20:33 Dose: 200 mls/hr Magnesium Sulfate/Dextrose 1 (gm/ Premix) 100 mls @ 100 mls/hr IV ONETIME ONE Stop: 10/26/18 19:49 Last Admin: 10/26/18 20:01 Dose: Not Given Aminophylline 250 mg/ Dextrose (/Water) 60 mls @ 6.84 mls/hr IV ONETIME ONE Stop: 10/27/18 06:46 Last Admin: 10/27/18 01:13 Dose: Not Given Aminophylline 250 mg/ Sodium (Chloride) 60 mls @ 6.84 mls/hr IV ONETIME ONE Stop: 10/27/18 08:01 Last Admin: 10/26/18 23:27 Dose: 0.5 mg/kg/hr, 6.84 mls/hr Aminophylline 250 mg/ Sodium (Chloride) 60 mls @ 180 mls/hr IV ONETIME ONE Stop: 10/27/18 19:19 Last Admin: 10/27/18 19:53 Dose: 180 mls/hr Sodium Chloride (Normal Saline) Confirm Administered Dose 100 mls @ as directed .ROUTE .STK-MED ONE Stop: 10/28/18 01:06 Last Admin: 10/28/18 01:15 Dose: Not Given Lorazepam (Ativan) 1 mg IVPUSH ONETIME ONE Stop: 10/26/18 13:57 Last Admin: 10/26/18 14:12 Dose: 1 mg Lorazepam (Ativan) 0.5 mg IVPUSH ONETIME ONE Stop: 10/26/18 16:40 Last Admin: 10/26/18 16:54 Dose: 0.5 mg Methylprednisolone Sodium Succinate (Solu-Medrol) 125 mg IVPUSH ONETIME ONE Stop: 10/26/18 14:45 Last Admin: 10/26/18 15:00 Dose: 125 mg Metoprolol Tartrate (Lopressor) 5 mg IVPUSH Q4H PRN PRN Reason: Tachycardia Last Admin: 10/26/18 19:11 Dose: 5 mg Metoprolol Tartrate (Lopressor) 25 mg PO BID [facility] Last Admin: 10/27/18 08:30 Dose: Not Given Theophylline (Theophylline Anhydrous) 300 mg PO DAILY [facility] Last Admin: 10/27/18 08:32 Dose: 300 mg Theophylline (Theophylline Anhydrous) 300 mg PO BID [facility] Last Admin: 10/27/18 20:32 Dose: 300 mg - Exam Quality Assessment: Supplemental Oxygen General: Alert, Oriented, Cooperative, Mild Distress, Other (cachexia) HEENT: Pupils Equal, Pupils Reactive, EOMI, Mucous Membr. Moist/[place], Other ( facial edema) Neck: Supple, Other (accessory muscle use and labored (baseline)) Lungs: Wheezing (more wheezing today ). No: Normal Respiratory Effort Cardiovascular: Tachycardia GI/Abdominal Exam: Normal Bowel Sounds, Soft, Non-Tender, No Organomegaly, No Distention, No Abnormal Bruit (Female) Exam: Deferred Back Exam: Normal Inspection, Full Range of Motion Extremities: Normal Inspection, Normal Range of Motion, Non-Tender, No Pedal Edema, Normal Capillary Refill, Other (muscle wasting) Peripheral Pulses: 2+: Dorsalis Pedis (L), Dorsalis Pedis (R) Skin: Warm, Dry, Intact Neurological: Other (deferred due to dyspnea) Psy/Mental Status: Alert, Normal Affect, Normal Mood - Problem List Review Problem List Initiated/Reviewed/Updated: Yes - My Orders Last 24 Hours: My Active Orders 10/27/18 07:50 Up With Assistance [RC] ASDIRECTED Up ad Debbie [RC] ASDIRECTED 10/27/18 08:00 ALPRAZolam [Xanax] 1 mg PO BID@0800,199910/27/18 09:00 Enoxaparin [Lovenox] 40 mg SUBCUT DAILY HCTZ/Triamterene [Dyazide 25-37.5 MG] 1 each PO DAILY Magnesium Oxide 400 mg PO DAILY Patient's Own Medication [Ptom] 500 each PO DAILY Tiotropium [Spiriva HandiHaler] 18 mcg INH DAILY 10/27/18 10:00 Levalbuterol HCl [Xopenex] 1.25 mg NEB Q6H PRN 10/27/18 16:40 Patient Status [ADT] Routine 10/27/18 16:45 Diltiazem 125 mg Sodium Chloride 0.9% [Normal Saline] 100 ml IV TITRATE 10/27/18 19:21 BIPAP [RT BiPAP/CPAP] [RC] ASDIRECTED 10/27/18 21:00 Ipratropium [Atrovent] 0.5 mg NEB BID Levalbuterol HCl [Xopenex] 1.25 mg NEB BID 10/27/18 22:00 Communication Order [RC] ASDIRECTED 10/28/18 07:00 Chest 1V Frontal [CR] Routine 10/28/18 07:47 Sodium Chloride 0.9% [Normal Saline] 500 ml IV .BOLUS 10/28/18 08:00 THEOPHYLLINE [CHEM] Urgent Sodium Chloride 0.9% [Normal Saline] 1,000 ml IV ASDIRECTED 10/28/18 08:01 EKG 12 Lead [EKG Documentation Completion] [RC] ROUTINE 10/28/18 09:00 Diltiazem [Cardizem CD] 180 mg PO DAILY 10/29/18 05:11 BASIC METABOLIC PANEL,BMP [CHEM] AM C-REACTIVE PROTEIN [CHEM] AM CBC WITH AUTO DIFF [HEME] AM MAGNESIUM [CHEM] AM 10/30/18 05:11 BASIC METABOLIC PANEL,BMP [CHEM] AM C-REACTIVE PROTEIN [CHEM] AM CBC WITH AUTO DIFF [HEME] AM MAGNESIUM [CHEM] AM 11/02/18 20:00 Remove Patch 1 ea TRDERM Q7D - Plan Plan:: Assessment/Plan: Acute: CAP 2/2 Probable Strep Pneumoniae - CXR shows increased density within the lingula - Failed outpatient treatment - Just completed oral Levaquin and Taper dose of Prednisone - Risk Factors: End Stage COPD and Chronic Respiratory Failure - She is high risk for pseudomonas due to recent use of steroids - Continue IV Zosyn and Levaquin for pharmacy to renally dose - Supplemental O2, Bronchodilators, IV Mg, IS q2 awake and Cough Suppressant/ Expectorant - Mycoplasma, RVP and Blood Cx- all negative - Sputum Cx pos for Probable Strep Pneumonia - Repeat CXR today shows slightly improved lungs End Stage COPD Exacerbation - IV Steroids, Scheduled and PRN Bronchodilators, O2 - IS Q2 awake - Decongestant/Expectorant - Sputum Cx/Sx-Probable Strep Pneumonia - PRN BIPAP for RT to assess and treat Respiratory Failure - Worse this AM - Acute on Chronic Hypercapneic and Hypoxic - 2/2 Above - ABG: pH of 7.32, PO2 59.1, pCO2 of 81.1, HCO3 of 40.1, and O2 sat at 87% on 4L NC; repeat ABG better this AM - Supplemental O2 4L and PRN BIPAP - Treat underlying cause above Tachycardic and Hypertension - Side effects of Medications - Continue Levalbuterol scheduled and as needed and Ipratropium - Discontinue Digoxin and Theophylline (arrhythmogenic) - Continue Cardizem drip and will resume Metoprolol since her ABG is much better - PRN BIPAP hopefully to help improve pressure as well End of Life Care - She is not agreeable to Hospice/Palliative Care - Has had multiple discussions in the past - She is looks miserable; not receptive Chronic: Impaired Vision HTN OA/DJD Osteoporosis Back Pain Migraines Chronic Pain Depression Anxiety Plan: She is essentially the same as yesterday Routine AM Labs PRN Medications 2D echo once heart rate is stable Bolus IVF at 500 ml NS x1 then 50cc/hr for maintenance Repeat labs this afternoon Continue oral theophylline for bronchospasm and stimulant Educated nurse and patient to be careful with benzos and narcotics; both have synergistic effect to cause respiratory depression RT to assess and treat Discontinue /PT/OT as she is not appropriate at this point May benefit with cardiopulmonary rehab but not home health SW/CM for d/c planning Additional orders as above Code status: 1 Prognosis is serious-guarded
[2018-10-28] MEDS: ALPRAZolam 1 MG Tab PO SCH ×2 (08:19→21:01)
[2018-10-28] MEDS: Ipratropium 0.02% 0.5 MG/2.5 ML Neb Soln NEB SCH ×2 (08:24→20:26)
[2018-10-28] MEDS: Levalbuterol HCl 1.25 MG/0.5 ML Neb NEB SCH ×2 (08:24→20:26)
[2018-10-28] MEDS: Formoterol/Mometasone 100-5 MCG 8.8 GM Inhaler IH SCH ×2 (08:37→21:03)
[2018-10-28] MEDS: Tiotropium Inhaler 18 MCG Inhalation Powder Cap Kit of 5 INH SCH (08:37)
--- NOTE | 2018-10-28 08:37 | CR ---
Chest: Portable chest was obtained. Comparison: Previous chest x-ray of 10/26/18. Lung markings are increased. Findings are slightly improved from previous exam and appear to be at or near baseline representing stable fibrosis. Lungs are hyperinflated compatible with emphysematous change. Heart size and mediastinum are stable. Right shoulder prosthesis is noted. Bony structures are otherwise grossly intact. Impression: 1. Lung markings increased felt to be slightly improved from most recent exam and now appearing close to or at baseline, representing fibrosis. 2. Stable emphysematous change and other incidental findings. Diagnostic code #2
[2018-10-28] MEDS: Magnesium Oxide 400 MG Tab PO SCH (08:50)
[2018-10-28] MEDS: Metoprolol Tartrate 50 MG Tab PO SCH ×2 (08:50→21:01)
[2018-10-28] MEDS: guaiFENesin 600 MG Tab.ER PO SCH ×2 (08:50→21:01)
[2018-10-28] MEDS: Enoxaparin 40 MG/0.4 ML Syringe SUBCUT SCH (08:51)
[2018-10-28] MEDS: Hydrochlorothiazide/Triamterene 25-37.5 MG Cap PO SCH (08:51)
[2018-10-28] MEDS: Acetaminophen/HYDROcodone 325-10 MG Tab PO PRN ×2 (08:51→21:17)
[2018-10-28] MEDS: Diltiazem 180 MG Cap.CD PO SCH (08:51)
[2018-10-28] MEDS: ROFLUMILAST 500 MG PO SCH (08:52)
[2018-10-28] MEDS ORDERED: Potassium Chloride 20 MEQ Tab.ER PO ONE (09:00)
--- NOTE | 2018-10-28 11:48 | PCM.SN ---
- Free Text/Narrative Note: Patient looks comfortable and doing well on BIPAP. She is now off Cardizem drip and her heart rate is now in the upper 80s.
[2018-10-28] MEDS: Sodium Chloride 0.9% 1,000 ML IV SCH (14:51)
[2018-10-28] MEDS: QUEtiapine 25 MG Tab PO SCH (21:01)
[2018-10-28] MEDS: Mirtazapine 30 MG Tab PO SCH (21:01)
[2018-10-29] MEDS: Piperacillin/Tazobactam 4.5 GM in Sodium Chloride 0.9% 100 ML IV SCH ×3 (05:03→20:11)
[2018-10-29] MEDS: methylPREDNISolone Sodium Succinate 125 MG/2 ML SDV IVPUSH SCH ×3 (05:04→21:51)
[2018-10-29] MEDS: Levalbuterol HCl 1.25 MG/0.5 ML Neb NEB SCH ×2 (09:15→20:27)
[2018-10-29] MEDS: Ipratropium 0.02% 0.5 MG/2.5 ML Neb Soln NEB SCH ×2 (09:15→20:27)
[2018-10-29] MEDS: Tiotropium Inhaler 18 MCG Inhalation Powder Cap Kit of 5 INH SCH (09:17)
[2018-10-29] MEDS: Formoterol/Mometasone 100-5 MCG 8.8 GM Inhaler IH SCH ×2 (09:17→20:27)
[2018-10-29] MEDS: Hydrochlorothiazide/Triamterene 25-37.5 MG Cap PO SCH (09:35)
[2018-10-29] MEDS: Metoprolol Tartrate 50 MG Tab PO SCH ×2 (09:35→20:11)
[2018-10-29] MEDS: Enoxaparin 40 MG/0.4 ML Syringe SUBCUT SCH (09:37)
[2018-10-29] MEDS: Diltiazem 180 MG Cap.CD PO SCH (09:37)
[2018-10-29] MEDS: Magnesium Oxide 400 MG Tab PO SCH (09:37)
[2018-10-29] MEDS: guaiFENesin 600 MG Tab.ER PO SCH ×2 (09:37→20:10)
[2018-10-29] MEDS: ALPRAZolam 1 MG Tab PO SCH ×2 (09:37→20:10)
[2018-10-29] MEDS: ROFLUMILAST 500 MG PO SCH (10:44)
[2018-10-29] MEDS: Sodium Chloride 0.9% 1,000 ML IV SCH (11:27)
--- NOTE | 2018-10-29 12:28 | PCM.PN ---
- General Info Date of Service: 10/29/18 Functional Status: Reports: Pain Controlled, Tolerating Diet, Ambulating, Urinating - Review of Systems General: Reports: Weakness, Fatigue, Malaise HEENT: Reports: No Symptoms Pulmonary: Reports: Shortness of Breath Cardiovascular: Reports: No Symptoms Gastrointestinal: Reports: No Symptoms Genitourinary: Reports: No Symptoms Musculoskeletal: Reports: No Symptoms Skin: Reports: No Symptoms Neurological: Reports: No Symptoms Psychiatric: Reports: Depression - Patient Data Vitals - Most Recent: Last Vital Signs Temp 36.6 C 10/29/18 12:00 Pulse 84 10/29/18 12:00 Resp 18 10/29/18 12:00 BP 124/76 10/29/18 12:00 Pulse Ox 98 10/29/18 12:00 Weight - Most Recent: 65.045 kg I&O - Last 24 Hours: Intake & Output 10/28/18 10/29/18 10/29/18 22:59 06:59 14:59 Intake Total 1672 704 Output Total 700 600 250 Balance 972 104 -250 Lab Results Last 24 Hours: Laboratory Results - last 24 hr 10/28/18 10/29/18 10/29/18 Range/Units 21:25 06:50 06:50 WBC 13.99 H (3.98-10.04) K/mm3 RBC 3.68 L (3.98-5.22) M/mm3 Hgb 10.3 L (11.2-15.7) gm/L Hct 32.9 L (34.1-44.9) % MCV 89.4 (79.4-94.8) fl MCH 28.0 (25.6-32.2) pg MCHC 31.3 L (32.2-35.5) g/dl RDW Std Deviation 42.8 (36.4-46.3) fL Plt Count 361 (182-369) K/mm3 MPV 8.8 L (9.4-12.3) fl Neut % (Auto) 92.9 H (34.0-71.1) % Lymph % (Auto) 2.1 L (19.3-51.7) % [place] % (Auto) 2.7 L (4.7-12.5) % Eos % (Auto) 0 L (0.7-5.8) Baso % (Auto) 0.2 (0.1-1.2) % Neut # (Auto) 12.99 H (1.56-6.13) K/mm3 Lymph # (Auto) 0.29 L (1.18-3.74) K/mm3 [place] # (Auto) 0.38 H (0.24-0.36) K/mm3 Eos # (Auto) 0.00 L (0.04-0.36) K/mm3 Baso # (Auto) 0.03 (0.01-0.08) K/mm3 Manual Slide Review Abnormal smear Sodium 131 L 133 L (136-145) mEq/L Potassium 4.1 4.2 (3.5-5.1) mEq/L Chloride 91 L 93 L (98-107) mEq/L Carbon Dioxide 36 H 36 H (21-32) mEq/L Anion Gap 8.1 8.2 (5-15) BUN 34 H 35 H (7-18) mg/dL Creatinine 1.9 H 1.5 H (0.55-1.02) mg/dL Est Cr Clr Drug Dosing 30.76 37.45 mL/min Estimated GFR (MDRD) 28 36 (>60) mL/min BUN/Creatinine Ratio 17.9 23.3 H (14-18) Glucose 209 H 178 H (74-106) mg/dL Calcium 9.2 9.2 (8.5-10.1) mg/dL Magnesium 2.3 (1.8-2.4) mg/dl C-Reactive Protein 3.3 H* (<1.0) mg/dL John Results Last 24 Hours: Microbiology 10/26/18 14:15 Gram Stain - Final Sputum - Expectorated Sputum Culture - Final Streptococcus Pneumoniae 10/26/18 14:55 Aerobic Blood Culture - Preliminary Blood - Venous - Lab Draw NO GROWTH AFTER 2 DAYS Anaerobic Blood Culture - Preliminary NO GROWTH AFTER 2 DAYS 10/26/18 14:45 Aerobic Blood Culture - Preliminary Blood - Venous NO GROWTH AFTER 2 DAYS Anaerobic Blood Culture - Preliminary NO GROWTH AFTER 2 DAYS Med Orders - Current: Current Medications Acetaminophen (Tylenol) 650 mg PO Q4H PRN PRN Reason: Pain (Mild 1-3)/fever Hydrocodone Bitart/Acetaminophen ([place] 325-10 Mg) 1 tab PO Q6H PRN PRN Reason: PAIN Last Admin: 10/28/18 21:17 Dose: 1 tab Alprazolam (Xanax) 1 mg PO BID@0800,2000 [facility] Last Admin: 10/29/18 09:37 Dose: 1 mg Bisacodyl (Dulcolax) 5 mg PO DAILY PRN PRN Reason: Constipation Clonidine HCl (Catapres-Tts 3) 0.3 mg TRDERM Q7D [facility] Last Admin: 10/26/18 20:29 Dose: 0.3 mg Diltiazem HCl (Cardizem Cd) 180 mg PO DAILY [facility] Last Admin: 10/29/18 09:37 Dose: 180 mg Docusate Sodium (Colace) 100 mg PO BID PRN PRN Reason: Constipation Enoxaparin Sodium (Lovenox) 40 mg SUBCUT DAILY [facility] Last Admin: 10/29/18 09:37 Dose: 40 mg Guaifenesin (Mucinex) 1,200 mg PO BID [facility] Last Admin: 10/29/18 09:37 Dose: 1,200 mg Hydralazine HCl (Apresoline) 20 mg IVPUSH Q4H PRN PRN Reason: Hypertension Last Admin: 10/28/18 05:03 Dose: 20 mg Piperacillin Sod/Tazobactam (Sod 4.5 gm/ Sodium Chloride) 100 mls @ 25 mls/hr IV Q8H [facility] Last Admin: 10/29/18 11:27 Dose: 25 mls/hr Diltiazem HCl 125 mg/ Sodium (Chloride) 125 mls @ 5 mls/hr IV TITRATE [facility]; Protocol Last Titration: 10/28/18 10:06 Dose: Infused Sodium Chloride (Normal Saline) 1,000 mls @ 50 mls/hr IV ASDIRECTED [facility] Last Admin: 10/29/18 11:27 Dose: 50 mls/hr Levofloxacin/Dextrose 750 mg/ (Premix) 150 mls @ 100 mls/hr IV Q48H [facility] Ipratropium [place] (Atrovent) 0.5 mg NEB BID [facility] Last Admin: 10/29/18 09:15 Dose: 0.5 mg Levalbuterol HCl (Xopenex) 1.25 mg NEB Q6H PRN PRN Reason: SOB/Dyspnea Last Admin: 10/28/18 12:53 Dose: 1.25 mg Levalbuterol HCl (Xopenex) 1.25 mg NEB BID [facility] Last Admin: 10/29/18 09:15 Dose: 1.25 mg Magnesium Oxide (Magnesium Oxide) 400 mg PO DAILY [facility] Last Admin: 10/29/18 09:37 Dose: 400 mg Methylprednisolone Sodium Succinate (Solu-Medrol) 80 mg IVPUSH Q8H [facility] Last Admin: 10/29/18 05:04 Dose: 80 mg Metoprolol Tartrate (Lopressor) 50 mg PO Q12H [facility] Last Admin: 10/29/18 09:35 Dose: 50 mg Mirtazapine (Remeron) 30 mg PO BEDTIME [facility] Last Admin: 10/28/18 21:01 Dose: 30 mg Miscellaneous Information (Remove Patch) 1 ea TRDERM Q7D [facility] Mometasone Furoate/Formoterol Fumar (Dulera 100-5 Mcg) 0 puff IH BID [facility] Last Admin: 10/29/18 09:17 Dose: Not Given Morphine Sulfate (Morphine) 0.5 mg IVPUSH Q4H PRN PRN Reason: Dyspnea Last Admin: 10/28/18 13:23 Dose: 0.5 mg Nystatin (Mycostatin) 5 ml PO QID PRN PRN Reason: thrush Ondansetron HCl (Zofran) 4 mg IV Q6H PRN PRN Reason: Nausea/Vomiting Last Admin: 10/27/18 16:13 Dose: 4 mg Roflumilast 500 Mg 500 each PO DAILY [facility] Last Admin: 10/29/18 10:44 Dose: Not Given Polyethylene Glycol (Miralax) 17 gm PO DAILY PRN PRN Reason: Constipation Quetiapine Fumarate (Seroquel) 50 mg PO BEDTIME [facility] Last Admin: 10/28/18 21:01 Dose: 50 mg Senna/Docusate Sodium (Senna Plus) 1 tab PO BID PRN PRN Reason: Constipation Tiotropium [place] (Spiriva Handihaler) 18 mcg INH DAILY [facility] Last Admin: 10/29/18 09:17 Dose: Not Given Triamterene/HCTZ (Dyazide 25-37.5 Mg) 1 each PO DAILY [facility] Last Admin: 10/29/18 09:35 Dose: 1 each Discontinued Medications Albuterol (Proventil Neb Soln) 2.5 mg NEB ONETIME ONE Stop: 10/26/18 14:44 Last Admin: 10/26/18 15:15 Dose: 2.5 mg Albuterol (Proventil Neb Soln) 2.5 mg NEB ONETIME ONE Stop: 10/26/18 15:33 Last Admin: 10/26/18 16:06 Dose: 2.5 mg Albuterol (Proventil Hfa) 0 gm INH Q4H PRN PRN Reason: Shortness of Breath Albuterol/Ipratropium (Duoneb 3.0-0.5 Mg/3 Ml) 3 ml NEB ONETIME ONE Stop: 10/26/18 13:59 Last Admin: 10/26/18 14:32 Dose: 3 ml Albuterol/Ipratropium (Duoneb 3.0-0.5 Mg/3 Ml) 3 ml NEB Q4H PRN PRN Reason: Shortness Of Breath/wheezing Alprazolam (Xanax) 1 mg PO BID [facility] Last Admin: 10/26/18 20:08 Dose: Not Given Aminophylline (Aminophylline) 250 mg IV ONETIME ONE Stop: 10/27/18 18:49 Last Admin: 10/27/18 21:40 Dose: Not Given Clonidine HCl (Catapres) 0.1 mg PO ONETIME ONE Stop: 10/26/18 16:40 Last Admin: 10/26/18 16:55 Dose: 0.1 mg Digoxin (Lanoxin) 250 mcg IVPUSH ONETIME ONE Stop: 10/27/18 23:46 Last Admin: 10/28/18 00:03 Dose: 250 mcg Digoxin (Lanoxin) 125 mcg IVPUSH ONETIME ONE Stop: 10/28/18 06:01 Last Admin: 10/28/18 06:00 Dose: 125 mcg Diltiazem HCl (Cardizem) 10 mg IVPUSH Q6H PRN PRN Reason: Tachycardia Last Admin: 10/26/18 20:22 Dose: 10 mg Diltiazem HCl (Cardizem) 10 mg IVPUSH Q4H PRN PRN Reason: Tachycardia Last Admin: 10/27/18 15:20 Dose: 10 mg Diltiazem HCl (Cardizem Cd) 180 mg PO ONETIME ONE Stop: 10/27/18 09:12 Last Admin: 10/27/18 09:38 Dose: 180 mg Glycopyrrolate (Seebri Neohaler) 0 mcg IH BID [facility] Hydromorphone HCl (Dilaudid) 0.5 mg IVPUSH ONETIME ONE Stop: 10/26/18 14:45 Last Admin: 10/26/18 14:59 Dose: 0.5 mg Lactated Ringer's (Ringers, Lactated) 500 mls @ 999 mls/hr IV .BOLUS ONE Stop: 10/26/18 14:25 Last Admin: 10/26/18 14:12 Dose: 999 mls/hr Ceftriaxone Sodium 2 gm/ (Sodium Chloride) 100 mls @ 200 mls/hr IV NOW STA Stop: 10/26/18 15:12 Last Admin: 10/26/18 15:00 Dose: 200 mls/hr Lactated Ringer's (Ringers, Lactated) 1,000 mls @ 125 mls/hr IV ASDIRECTED [facility] Last Admin: 10/26/18 16:55 Dose: 125 mls/hr Magnesium Sulfate 2 gm/ Premix 50 mls @ 50 mls/hr IV ONETIME ONE Stop: 10/26/18 19:14 Last Admin: 10/26/18 18:27 Dose: 50 mls/hr Potassium Chloride 10 meq/ (Premix) 100 mls @ 100 mls/hr IV Q1H [facility] Stop: 10/26/18 23:29 Last Admin: 10/26/18 20:14 Dose: Not Given Levofloxacin/Dextrose 750 mg/ (Premix) 150 mls @ 100 mls/hr IV Q24H [facility] Last Admin: 10/26/18 20:15 Dose: Not Given Piperacillin Sod/Tazobactam (Sod 4.5 gm/ Sodium Chloride) 100 mls @ 200 mls/hr IV ONETIME ONE Stop: 10/26/18 20:29 Last Admin: 10/26/18 20:33 Dose: 200 mls/hr Magnesium Sulfate/Dextrose 1 (gm/ Premix) 100 mls @ 100 mls/hr IV ONETIME ONE Stop: 10/26/18 19:49 Last Admin: 10/26/18 20:01 Dose: Not Given Levofloxacin/Dextrose 750 mg/ (Premix) 150 mls @ 100 mls/hr IV Q24H [facility] Last Admin: 10/27/18 20:22 Dose: 100 mls/hr Aminophylline 250 mg/ Dextrose (/Water) 60 mls @ 6.84 mls/hr IV ONETIME ONE Stop: 10/27/18 06:46 Last Admin: 10/27/18 01:13 Dose: Not Given Aminophylline 250 mg/ Sodium (Chloride) 60 mls @ 6.84 mls/hr IV ONETIME ONE Stop: 10/27/18 08:01 Last Admin: 10/26/18 23:27 Dose: 0.5 mg/kg/hr, 6.84 mls/hr Aminophylline 250 mg/ Sodium (Chloride) 60 mls @ 180 mls/hr IV ONETIME ONE Stop: 10/27/18 19:19 Last Admin: 10/27/18 19:53 Dose: 180 mls/hr Sodium Chloride (Normal Saline) Confirm Administered Dose 100 mls @ as directed .ROUTE .STK-MED ONE Stop: 10/28/18 01:06 Last Admin: 10/28/18 01:15 Dose: Not Given Sodium Chloride (Normal Saline) 500 mls @ 999 mls/hr IV .BOLUS ONE Stop: 10/28/18 08:17 Last Admin: 10/28/18 08:40 Dose: 999 mls/hr Lorazepam (Ativan) 1 mg IVPUSH ONETIME ONE Stop: 10/26/18 13:57 Last Admin: 10/26/18 14:12 Dose: 1 mg Lorazepam (Ativan) 0.5 mg IVPUSH ONETIME ONE Stop: 10/26/18 16:40 Last Admin: 10/26/18 16:54 Dose: 0.5 mg Magnesium Sulfate (Pharmacy To Dose - Magnesium Replacement) 1 dose .XX ASDIRECTED [facility] Methylprednisolone Sodium Succinate (Solu-Medrol) 125 mg IVPUSH ONETIME ONE Stop: 10/26/18 14:45 Last Admin: 10/26/18 15:00 Dose: 125 mg Metoprolol Tartrate (Lopressor) 5 mg IVPUSH Q4H PRN PRN Reason: Tachycardia Last Admin: 10/26/18 19:11 Dose: 5 mg Metoprolol Tartrate (Lopressor) 25 mg PO BID [facility] Last Admin: 10/27/18 08:30 Dose: Not Given Potassium Chloride (Pharmacy To Dose - Potassium Replacement) 1 dose .XX ASDIRECTED [facility] Potassium Chloride (Klor-Con M20) 40 meq PO ONETIME ONE Stop: 10/28/18 09:01 Last Admin: 10/28/18 08:51 Dose: 40 meq Theophylline (Theophylline Anhydrous) 300 mg PO DAILY [facility] Last Admin: 10/27/18 08:32 Dose: 300 mg Theophylline (Theophylline Anhydrous) 300 mg PO BID [facility] Last Admin: 10/27/18 20:32 Dose: 300 mg - Exam Quality Assessment: Supplemental Oxygen, DVT Prophylaxis General: Alert, Oriented, Cooperative, No Acute Distress HEENT: Pupils Equal, Pupils Reactive, EOMI Neck: Trachea Midline, No JVD Lungs: Decreased Breath Sounds, Rhonchi, Wheezing Cardiovascular: Regular Rate, Regular Rhythm GI/Abdominal Exam: Normal Bowel Sounds, Soft, Non-Tender, No Organomegaly, No Distention (Female) Exam: Deferred Back Exam: Normal Inspection Extremities: Normal Inspection, Slow Capillary Refill Skin: Warm Neurological: No New Focal Deficit Psy/Mental Status: Alert, Anxious, Depressed - Problem List & Annotations (1) COPD exacerbation SNOMED Code(s): 664527669 Code(s): J44.1 - CHRONIC OBSTRUCTIVE PULMONARY DISEASE W (ACUTE) EXACERBATION Status: Acute Current Visit: Yes (2) Pneumonia SNOMED Code(s): 359925333 Code(s): J18.9 - PNEUMONIA, UNSPECIFIED ORGANISM Status: Acute Current Visit: Yes (3) Acute febrile illness SNOMED Code(s): 417910809 Code(s): R50.9 - FEVER, UNSPECIFIED Status: Acute Current Visit: No (4) Depression with anxiety SNOMED Code(s): 61389692, 305774091 Code(s): F41.8 - OTHER SPECIFIED ANXIETY DISORDERS Status: Acute Current Visit: No (5) End stage COPD SNOMED Code(s): 285516769 Code(s): J44.9 - CHRONIC OBSTRUCTIVE PULMONARY DISEASE, UNSPECIFIED Status : Acute Current Visit: No (6) Pulmonary hypertension SNOMED Code(s): 81976064 Code(s): I27.2 - OTHER SECONDARY PULMONARY HYPERTENSION * DO NOT USE * Status: Acute Current Visit: No - Problem List Review Problem List Initiated/Reviewed/Updated: Yes - Plan Plan:: Assessment/Plan: Acute: CAP 2/2 Probable Strep Pneumoniae - CXR shows increased density within the lingula - Failed outpatient treatment - Just completed oral Levaquin and Taper dose of Prednisone - Risk Factors: End Stage COPD and Chronic Respiratory Failure - She is high risk for pseudomonas due to recent use of steroids - Continue IV Zosyn and Levaquin for pharmacy to renally dose - Supplemental O2, Bronchodilators, IV Mg, IS q2 awake and Cough Suppressant/ Expectorant - Mycoplasma, RVP and Blood Cx- all negative - Sputum Cx pos for Probable Strep Pneumonia End Stage COPD Exacerbation - IV Steroids, Scheduled and PRN Bronchodilators, O2 - IS Q2 awake - Decongestant/Expectorant - Sputum Cx/Sx-Probable Strep Pneumonia - PRN BIPAP for RT to assess and treat Respiratory Failure - Acute on Chronic Hypercapneic and Hypoxic - 2/2 Above - ABG: pH of 7.32, PO2 59.1, pCO2 of 81.1, HCO3 of 40.1, and O2 sat at 87% on 4L NC; repeat ABG better this AM - Supplemental O2 4L and PRN BIPAP - Treat underlying cause above Tachycardic and Hypertension-->resolved - Side effects of Medications - Continue Levalbuterol scheduled and as needed and Ipratropium - Discontinue Digoxin and Theophylline (arrhythmogenic) - Continue Cardizem drip and will resume Metoprolol since her ABG is much better - PRN BIPAP hopefully to help improve pressure as well End of Life Care - She is not agreeable to Hospice/Palliative Care remains not receptive - Has had multiple discussions in the past Chronic: Impaired Vision HTN OA/DJD Osteoporosis Back Pain Migraines Chronic Pain Depression Anxiety Plan: Routine AM Labs PRN Medications 2D echo once heart rate is stable Repeat labs this afternoon Continue oral theophylline for bronchospasm and stimulant RT to assess and treat Discontinue /PT/OT as she is not appropriate at this point May benefit with cardiopulmonary rehab but not home health SW/CM for d/c planning Additional orders as above Code status: 1 Prognosis is serious-guarded
[2018-10-29] MEDS: Levalbuterol HCl 1.25 MG/3 ML Neb NEB PRN (15:06)
[2018-10-29] MEDS: hydrALAZINE 20 MG/ML SDV IVPUSH PRN ×2 (16:35→21:51)
[2018-10-29] MEDS: Acetaminophen/HYDROcodone 325-10 MG Tab PO PRN (17:35)
[2018-10-29] MEDS: Mirtazapine 30 MG Tab PO SCH (20:10)
[2018-10-29] MEDS: QUEtiapine 25 MG Tab PO SCH (20:10)
[2018-10-29] MEDS ORDERED: Levofloxacin/Dextrose 5%-Water 750 MG in Premix Bag 1 BAG IV SCH (21:00)
[2018-10-30] MEDS: Levalbuterol HCl 1.25 MG/3 ML Neb NEB PRN (03:42)
[2018-10-30] MEDS: Morphine 2 MG/ML Syringe IVPUSH PRN ×2 (05:01→14:44)
[2018-10-30] MEDS: Piperacillin/Tazobactam 4.5 GM in Sodium Chloride 0.9% 100 ML IV SCH ×3 (05:01→20:31)
[2018-10-30] MEDS: methylPREDNISolone Sodium Succinate 125 MG/2 ML SDV IVPUSH SCH ×3 (05:01→20:07)
[2018-10-30] MEDS: Sodium Chloride 0.9% 1,000 ML IV SCH (08:27)
[2018-10-30] MEDS: Enoxaparin 40 MG/0.4 ML Syringe SUBCUT SCH (08:29)
[2018-10-30] MEDS: guaiFENesin 600 MG Tab.ER PO SCH ×2 (08:29→20:04)
[2018-10-30] MEDS: Magnesium Oxide 400 MG Tab PO SCH (08:29)
[2018-10-30] MEDS: ALPRAZolam 1 MG Tab PO SCH ×2 (08:29→20:04)
[2018-10-30] MEDS: Metoprolol Tartrate 50 MG Tab PO SCH ×2 (08:29→20:05)
[2018-10-30] MEDS: Diltiazem 180 MG Cap.CD PO SCH (08:29)
[2018-10-30] MEDS: Hydrochlorothiazide/Triamterene 25-37.5 MG Cap PO SCH (08:29)
[2018-10-30] MEDS: ROFLUMILAST 500 MG PO SCH (08:30)
[2018-10-30] MEDS: Ipratropium 0.02% 0.5 MG/2.5 ML Neb Soln NEB SCH ×3 (09:52→20:57)
[2018-10-30] MEDS: Formoterol/Mometasone 100-5 MCG 8.8 GM Inhaler IH SCH ×2 (09:55→20:57)
[2018-10-30] MEDS: Tiotropium Inhaler 18 MCG Inhalation Powder Cap Kit of 5 INH SCH (09:55)
[2018-10-30] MEDS ORDERED: Levalbuterol HCl 1.25 MG/0.5 ML Neb NEB SCH (10:00)
[2018-10-30] MEDS: Levalbuterol HCl 1.25 MG/0.5 ML Neb NEB SCH ×3 (10:13→20:57)
[2018-10-30] MEDS: hydrALAZINE 20 MG/ML SDV IVPUSH PRN ×2 (12:41→17:12)
--- NOTE | 2018-10-30 13:58 | PCM.PN ---
- General Info Date of Service: 10/30/18 Subjective Update: Patient seen on rounds, elevated RR; will obtain ABG/adjust BIPAP settings as needed. Functional Status: Reports: Urinating - Review of Systems General: Reports: Weakness, Fatigue, Malaise HEENT: Reports: No Symptoms Pulmonary: Reports: Shortness of Breath Cardiovascular: Reports: No Symptoms Gastrointestinal: Reports: No Symptoms Genitourinary: Reports: No Symptoms Musculoskeletal: Reports: No Symptoms Skin: Reports: No Symptoms Neurological: Reports: No Symptoms Psychiatric: Reports: Anxiety - Patient Data Vitals - Most Recent: Last Vital Signs Temp 37.0 C 10/30/18 12:00 Pulse 97 10/30/18 12:00 Resp 22 H 10/30/18 12:00 BP 160/85 H 10/30/18 12:00 Pulse Ox 93 L 10/30/18 12:06 Weight - Most Recent: 66.361 kg I&O - Last 24 Hours: Intake & Output 10/29/18 10/30/18 10/30/18 22:59 06:59 14:59 Intake Total 1031 1113 0 Output Total 900 600 Balance 131 513 0 Lab Results Last 24 Hours: Laboratory Results - last 24 hr 10/29/18 10/29/18 10/30/18 Range/Units 14:57 17:40 06:55 WBC 12.88 H (3.98-10.04) K/mm3 RBC 3.66 L (3.98-5.22) M/mm3 Hgb 10.2 L (11.2-15.7) gm/L Hct 33.1 L (34.1-44.9) % MCV 90.4 (79.4-94.8) fl MCH 27.9 (25.6-32.2) pg MCHC 30.8 L (32.2-35.5) g/dl RDW Std Deviation 44.3 (36.4-46.3) fL Plt Count 415 H (182-369) K/mm3 MPV 8.9 L (9.4-12.3) fl Neut % (Auto) 91.1 H (34.0-71.1) % Lymph % (Auto) 2.1 L (19.3-51.7) % [place] % (Auto) 3.5 L (4.7-12.5) % Eos % (Auto) 0 L (0.7-5.8) Baso % (Auto) 0.3 (0.1-1.2) % Neut # (Auto) 11.73 H (1.56-6.13) K/mm3 Lymph # (Auto) 0.27 L (1.18-3.74) K/mm3 [place] # (Auto) 0.45 H (0.24-0.36) K/mm3 Eos # (Auto) 0.00 L (0.04-0.36) K/mm3 Baso # (Auto) 0.04 (0.01-0.08) K/mm3 Manual Slide Review Abnormal smear Puncture Site Rt radial Rt radial ABG pH 7.21 L 7.33 L (7.35-7.45) ABG pCO2 102.0 H* 74.0 H* (35.0-45.0) mmHg ABG pO2 51.0 L 62.0 L (80.0-100.0) mmHg ABG HCO3 39.3 H 37.5 H (22.0-26.0) meq/L ABG O2 Saturation 76.3 L 88.5 L (96.0-97.0) % ABG Base Excess 8.8 H 9.6 H (-2-2.0) Johnny Test Positive O2 Delivery Device Mask Bipap Oxygen Flow Rate 3.0 3.0 FiO2 0.00 L (21.00-100.00) % PEEP 5.0 cmH20 Pressure Support 10.0 cmH2O Sodium (136-145) mEq/L Potassium (3.5-5.1) mEq/L Chloride (98-107) mEq/L Carbon Dioxide (21-32) mEq/L Anion Gap (5-15) BUN (7-18) mg/dL Creatinine (0.55-1.02) mg/dL Est Cr Clr Drug Dosing mL/min Estimated GFR (MDRD) (>60) mL/min BUN/Creatinine Ratio (14-18) Glucose (74-106) mg/dL Calcium (8.5-10.1) mg/dL Magnesium (1.8-2.4) mg/dl C-Reactive Protein (<1.0) mg/dL 10/30/18 10/30/18 Range/Units 06:55 11:56 WBC (3.98-10.04) K/mm3 RBC (3.98-5.22) M/mm3 Hgb (11.2-15.7) gm/L Hct (34.1-44.9) % MCV (79.4-94.8) fl MCH (25.6-32.2) pg MCHC (32.2-35.5) g/dl RDW Std Deviation (36.4-46.3) fL Plt Count (182-369) K/mm3 MPV (9.4-12.3) fl Neut % (Auto) (34.0-71.1) % Lymph % (Auto) (19.3-51.7) % [place] % (Auto) (4.7-12.5) % Eos % (Auto) (0.7-5.8) Baso % (Auto) (0.1-1.2) % Neut # (Auto) (1.56-6.13) K/mm3 Lymph # (Auto) (1.18-3.74) K/mm3 [place] # (Auto) (0.24-0.36) K/mm3 Eos # (Auto) (0.04-0.36) K/mm3 Baso # (Auto) (0.01-0.08) K/mm3 Manual Slide Review Puncture Site Rt radial ABG pH 7.35 (7.35-7.45) ABG pCO2 76.0 H* (35.0-45.0) mmHg ABG pO2 75.0 L (80.0-100.0) mmHg ABG HCO3 40.4 H (22.0-26.0) meq/L ABG O2 Saturation 93.7 L (96.0-97.0) % ABG Base Excess 12.5 H (-2-2.0) Johnny Test Positive O2 Delivery Device Bipap Oxygen Flow Rate FiO2 0.00 L (21.00-100.00) % PEEP 6.0 cmH20 Pressure Support 12.0 cmH2O Sodium 135 L (136-145) mEq/L Potassium 4.0 (3.5-5.1) mEq/L Chloride 94 L (98-107) mEq/L Carbon Dioxide 36 H (21-32) mEq/L Anion Gap 9.0 (5-15) BUN 36 H (7-18) mg/dL Creatinine 1.2 H (0.55-1.02) mg/dL Est Cr Clr Drug Dosing 46.82 mL/min Estimated GFR (MDRD) 47 (>60) mL/min BUN/Creatinine Ratio 30.0 H (14-18) Glucose 180 H (74-106) mg/dL Calcium 9.3 (8.5-10.1) mg/dL Magnesium 2.4 (1.8-2.4) mg/dl C-Reactive Protein 1.6 H* (<1.0) mg/dL John Results Last 24 Hours: Microbiology 10/26/18 14:55 Aerobic Blood Culture - Preliminary Blood - Venous - Lab Draw NO GROWTH AFTER 3 DAYS Anaerobic Blood Culture - Preliminary NO GROWTH AFTER 3 DAYS 10/26/18 14:45 Aerobic Blood Culture - Preliminary Blood - Venous NO GROWTH AFTER 3 DAYS Anaerobic Blood Culture - Preliminary NO GROWTH AFTER 3 DAYS 10/26/18 14:15 Gram Stain - Final Sputum - Expectorated Sputum Culture - Final Streptococcus Pneumoniae Med Orders - Current: Current Medications Acetaminophen (Tylenol) 650 mg PO Q4H PRN PRN Reason: Pain (Mild 1-3)/fever Hydrocodone Bitart/Acetaminophen ([place] 325-10 Mg) 1 tab PO Q6H PRN PRN Reason: PAIN Last Admin: 10/29/18 17:35 Dose: 1 tab Alprazolam (Xanax) 1 mg PO BID@0800,2000 [facility] Last Admin: 10/30/18 08:29 Dose: 1 mg Bisacodyl (Dulcolax) 5 mg PO DAILY PRN PRN Reason: Constipation Clonidine HCl (Catapres-Tts 3) 0.3 mg TRDERM Q7D [facility] Last Admin: 10/26/18 20:29 Dose: 0.3 mg Diltiazem HCl (Cardizem Cd) 180 mg PO DAILY [facility] Last Admin: 10/30/18 08:29 Dose: 180 mg Docusate Sodium (Colace) 100 mg PO BID PRN PRN Reason: Constipation Enoxaparin Sodium (Lovenox) 40 mg SUBCUT DAILY [facility] Last Admin: 10/30/18 08:29 Dose: 40 mg Guaifenesin (Mucinex) 1,200 mg PO BID [facility] Last Admin: 10/30/18 08:29 Dose: 1,200 mg Hydralazine HCl (Apresoline) 20 mg IVPUSH Q4H PRN PRN Reason: Hypertension Last Admin: 10/30/18 12:41 Dose: 20 mg Piperacillin Sod/Tazobactam (Sod 4.5 gm/ Sodium Chloride) 100 mls @ 25 mls/hr IV Q8H [facility] Last Admin: 10/30/18 12:33 Dose: 25 mls/hr Diltiazem HCl 125 mg/ Sodium (Chloride) 125 mls @ 5 mls/hr IV TITRATE SHAUN; Protocol Last Titration: 10/28/18 10:06 Dose: Infused Sodium Chloride (Normal Saline) 1,000 mls @ 50 mls/hr IV ASDIRECTED [facility] Last Admin: 10/30/18 08:27 Dose: 50 mls/hr Levofloxacin/Dextrose 750 mg/ (Premix) 150 mls @ 100 mls/hr IV Q48H [facility] Last Admin: 10/29/18 20:11 Dose: 100 mls/hr Ipratropium Irons (Atrovent) 0.5 mg NEB Q8HRRT [facility] Levalbuterol HCl (Xopenex) 1.25 mg NEB QIDRT [facility] Magnesium Oxide (Magnesium Oxide) 400 mg PO DAILY [facility] Last Admin: 10/30/18 08:29 Dose: 400 mg Methylprednisolone Sodium Succinate (Solu-Medrol) 125 mg IVPUSH Q8H [facility] Last Admin: 10/30/18 12:34 Dose: 125 mg Metoprolol Tartrate (Lopressor) 50 mg PO Q12H [facility] Last Admin: 10/30/18 08:29 Dose: 50 mg Mirtazapine (Remeron) 30 mg PO BEDTIME [facility] Last Admin: 10/29/18 20:10 Dose: 30 mg Miscellaneous Information (Remove Patch) 1 ea TRDERM Q7D [facility] Mometasone Furoate/Formoterol Fumar (Dulera 100-5 Mcg) 0 puff IH BID [facility] Last Admin: 10/30/18 09:55 Dose: Not Given Morphine Sulfate (Morphine) 0.5 mg IVPUSH Q4H PRN PRN Reason: Dyspnea Last Admin: 10/30/18 05:01 Dose: 0.5 mg Nystatin (Mycostatin) 5 ml PO QID PRN PRN Reason: thrush Ondansetron HCl (Zofran) 4 mg IV Q6H PRN PRN Reason: Nausea/Vomiting Last Admin: 10/27/18 16:13 Dose: 4 mg Roflumilast 500 Mg 500 each PO DAILY [facility] Last Admin: 10/30/18 08:30 Dose: Not Given Polyethylene Glycol (Miralax) 17 gm PO DAILY PRN PRN Reason: Constipation Quetiapine Fumarate (Seroquel) 50 mg PO BEDTIME [facility] Last Admin: 10/29/18 20:10 Dose: 50 mg Senna/Docusate Sodium (Senna Plus) 1 tab PO BID PRN PRN Reason: Constipation Tiotropium Irons (Spiriva Handihaler) 18 mcg INH DAILY [facility] Last Admin: 10/30/18 09:55 Dose: Not Given Triamterene/HCTZ (Dyazide 25-37.5 Mg) 1 each PO DAILY [facility] Last Admin: 10/30/18 08:29 Dose: 1 each Discontinued Medications Albuterol (Proventil Neb Soln) 2.5 mg NEB ONETIME ONE Stop: 10/26/18 14:44 Last Admin: 10/26/18 15:15 Dose: 2.5 mg Albuterol (Proventil Neb Soln) 2.5 mg NEB ONETIME ONE Stop: 10/26/18 15:33 Last Admin: 10/26/18 16:06 Dose: 2.5 mg Albuterol (Proventil Hfa) 0 gm INH Q4H PRN PRN Reason: Shortness of Breath Albuterol/Ipratropium (Duoneb 3.0-0.5 Mg/3 Ml) 3 ml NEB ONETIME ONE Stop: 10/26/18 13:59 Last Admin: 10/26/18 14:32 Dose: 3 ml Albuterol/Ipratropium (Duoneb 3.0-0.5 Mg/3 Ml) 3 ml NEB Q4H PRN PRN Reason: Shortness Of Breath/wheezing Alprazolam (Xanax) 1 mg PO BID [facility] Last Admin: 10/26/18 20:08 Dose: Not Given Aminophylline (Aminophylline) 250 mg IV ONETIME ONE Stop: 10/27/18 18:49 Last Admin: 10/27/18 21:40 Dose: Not Given Clonidine HCl (Catapres) 0.1 mg PO ONETIME ONE Stop: 10/26/18 16:40 Last Admin: 10/26/18 16:55 Dose: 0.1 mg Digoxin (Lanoxin) 250 mcg IVPUSH ONETIME ONE Stop: 10/27/18 23:46 Last Admin: 10/28/18 00:03 Dose: 250 mcg Digoxin (Lanoxin) 125 mcg IVPUSH ONETIME ONE Stop: 10/28/18 06:01 Last Admin: 10/28/18 06:00 Dose: 125 mcg Diltiazem HCl (Cardizem) 10 mg IVPUSH Q6H PRN PRN Reason: Tachycardia Last Admin: 10/26/18 20:22 Dose: 10 mg Diltiazem HCl (Cardizem) 10 mg IVPUSH Q4H PRN PRN Reason: Tachycardia Last Admin: 10/27/18 15:20 Dose: 10 mg Diltiazem HCl (Cardizem Cd) 180 mg PO ONETIME ONE Stop: 10/27/18 09:12 Last Admin: 10/27/18 09:38 Dose: 180 mg Glycopyrrolate (Seebri Neohaler) 0 mcg IH BID SHAUN Hydromorphone HCl (Dilaudid) 0.5 mg IVPUSH ONETIME ONE Stop: 10/26/18 14:45 Last Admin: 10/26/18 14:59 Dose: 0.5 mg Lactated Ringer's (Ringers, Lactated) 500 mls @ 999 mls/hr IV .BOLUS ONE Stop: 10/26/18 14:25 Last Admin: 10/26/18 14:12 Dose: 999 mls/hr Ceftriaxone Sodium 2 gm/ (Sodium Chloride) 100 mls @ 200 mls/hr IV NOW STA Stop: 10/26/18 15:12 Last Admin: 10/26/18 15:00 Dose: 200 mls/hr Lactated Ringer's (Ringers, Lactated) 1,000 mls @ 125 mls/hr IV ASDIRECTED [facility] Last Admin: 10/26/18 16:55 Dose: 125 mls/hr Magnesium Sulfate 2 gm/ Premix 50 mls @ 50 mls/hr IV ONETIME ONE Stop: 10/26/18 19:14 Last Admin: 10/26/18 18:27 Dose: 50 mls/hr Potassium Chloride 10 meq/ (Premix) 100 mls @ 100 mls/hr IV Q1H SHAUN Stop: 10/26/18 23:29 Last Admin: 10/26/18 20:14 Dose: Not Given Levofloxacin/Dextrose 750 mg/ (Premix) 150 mls @ 100 mls/hr IV Q24H [facility] Last Admin: 10/26/18 20:15 Dose: Not Given Piperacillin Sod/Tazobactam (Sod 4.5 gm/ Sodium Chloride) 100 mls @ 200 mls/hr IV ONETIME ONE Stop: 10/26/18 20:29 Last Admin: 10/26/18 20:33 Dose: 200 mls/hr Magnesium Sulfate/Dextrose 1 (gm/ Premix) 100 mls @ 100 mls/hr IV ONETIME ONE Stop: 10/26/18 19:49 Last Admin: 10/26/18 20:01 Dose: Not Given Levofloxacin/Dextrose 750 mg/ (Premix) 150 mls @ 100 mls/hr IV Q24H [facility] Last Admin: 10/27/18 20:22 Dose: 100 mls/hr Aminophylline 250 mg/ Dextrose (/Water) 60 mls @ 6.84 mls/hr IV ONETIME ONE Stop: 10/27/18 06:46 Last Admin: 10/27/18 01:13 Dose: Not Given Aminophylline 250 mg/ Sodium (Chloride) 60 mls @ 6.84 mls/hr IV ONETIME ONE Stop: 10/27/18 08:01 Last Admin: 10/26/18 23:27 Dose: 0.5 mg/kg/hr, 6.84 mls/hr Aminophylline 250 mg/ Sodium (Chloride) 60 mls @ 180 mls/hr IV ONETIME ONE Stop: 10/27/18 19:19 Last Admin: 10/27/18 19:53 Dose: 180 mls/hr Sodium Chloride (Normal Saline) Confirm Administered Dose 100 mls @ as directed .ROUTE .STK-MED ONE Stop: 10/28/18 01:06 Last Admin: 10/28/18 01:15 Dose: Not Given Sodium Chloride (Normal Saline) 500 mls @ 999 mls/hr IV .BOLUS ONE Stop: 10/28/18 08:17 Last Admin: 10/28/18 08:40 Dose: 999 mls/hr Ipratropium Irons (Atrovent) 0.5 mg NEB BID [facility] Last Admin: 10/30/18 09:52 Dose: 0.5 mg Levalbuterol HCl (Xopenex) 1.25 mg NEB Q6H PRN PRN Reason: SOB/Dyspnea Last Admin: 10/30/18 03:42 Dose: 1.25 mg Levalbuterol HCl (Xopenex) 1.25 mg NEB BID [facility] Last Admin: 10/30/18 10:13 Dose: Not Given Levalbuterol HCl (Xopenex) 1.25 mg NEB QID [facility] Last Admin: 10/30/18 10:24 Dose: 1.25 mg Lorazepam (Ativan) 1 mg IVPUSH ONETIME ONE Stop: 10/26/18 13:57 Last Admin: 10/26/18 14:12 Dose: 1 mg Lorazepam (Ativan) 0.5 mg IVPUSH ONETIME ONE Stop: 10/26/18 16:40 Last Admin: 10/26/18 16:54 Dose: 0.5 mg Magnesium Sulfate (Pharmacy To Dose - Magnesium Replacement) 1 dose .XX ASDIRECTED [facility] Methylprednisolone Sodium Succinate (Solu-Medrol) 125 mg IVPUSH ONETIME ONE Stop: 10/26/18 14:45 Last Admin: 10/26/18 15:00 Dose: 125 mg Methylprednisolone Sodium Succinate (Solu-Medrol) 80 mg IVPUSH Q8H [facility] Last Admin: 10/30/18 05:01 Dose: 80 mg Metoprolol Tartrate (Lopressor) 5 mg IVPUSH Q4H PRN PRN Reason: Tachycardia Last Admin: 10/26/18 19:11 Dose: 5 mg Metoprolol Tartrate (Lopressor) 25 mg PO BID [facility] Last Admin: 10/27/18 08:30 Dose: Not Given Potassium Chloride (Pharmacy To Dose - Potassium Replacement) 1 dose .XX ASDIRECTED [facility] Potassium Chloride (Klor-Con M20) 40 meq PO ONETIME ONE Stop: 10/28/18 09:01 Last Admin: 10/28/18 08:51 Dose: 40 meq Theophylline (Theophylline Anhydrous) 300 mg PO DAILY [facility] Last Admin: 10/27/18 08:32 Dose: 300 mg Theophylline (Theophylline Anhydrous) 300 mg PO BID [facility] Last Admin: 10/27/18 20:32 Dose: 300 mg - Exam Quality Assessment: Supplemental Oxygen, DVT Prophylaxis General: Alert, Oriented, No Acute Distress HEENT: Pupils Equal, Pupils Reactive, EOMI Neck: Trachea Midline, No JVD Lungs: Normal Respiratory Effort, Decreased Breath Sounds, Rhonchi, Wheezing Cardiovascular: Regular Rate, Regular Rhythm GI/Abdominal Exam: Normal Bowel Sounds, Soft, Non-Tender, No Organomegaly, No Distention (Female) Exam: Deferred Back Exam: Normal Inspection Extremities: Normal Inspection, Normal Capillary Refill Skin: Warm Neurological: No New Focal Deficit Psy/Mental Status: Alert, Anxious - Problem List & Annotations (1) COPD exacerbation SNOMED Code(s): 661602300 Code(s): J44.1 - CHRONIC OBSTRUCTIVE PULMONARY DISEASE W (ACUTE) EXACERBATION Status: Acute Current Visit: Yes (2) Pneumonia SNOMED Code(s): 073676308 Code(s): J18.9 - PNEUMONIA, UNSPECIFIED ORGANISM Status: Acute Current Visit: Yes (3) Acute febrile illness SNOMED Code(s): 960931129 Code(s): R50.9 - FEVER, UNSPECIFIED Status: Acute Current Visit: No (4) Depression with anxiety SNOMED Code(s): 88024400, 288648241 Code(s): F41.8 - OTHER SPECIFIED ANXIETY DISORDERS Status: Acute Current Visit: No (5) End stage COPD SNOMED Code(s): 226083283 Code(s): J44.9 - CHRONIC OBSTRUCTIVE PULMONARY DISEASE, UNSPECIFIED Status : Acute Current Visit: No (6) Pulmonary hypertension SNOMED Code(s): 04858801 Code(s): I27.2 - OTHER SECONDARY PULMONARY HYPERTENSION * DO NOT USE * Status: Acute Current Visit: No - Problem List Review Problem List Initiated/Reviewed/Updated: Yes - My Orders Last 24 Hours: My Active Orders 10/30/18 09:49 RT Post Treatment Assessment [RC] Click to Edit RT Pre-Treatment Assessment [RC] Click to Edit 10/30/18 13:00 methylPREDNISolone Sod Succ [Solu-MEDROL] 125 mg IVPUSH Q8H 10/30/18 14:00 Ipratropium [Atrovent] 0.5 mg NEB Q8HRRT 10/30/18 16:00 Levalbuterol HCl [Xopenex] 1.25 mg NEB QIDRT - Plan Plan:: Assessment/Plan: Acute: CAP 2/2 Probable Strep Pneumoniae - CXR shows increased density within the lingula - Failed outpatient treatment - Just completed oral Levaquin and Taper dose of Prednisone - Risk Factors: End Stage COPD and Chronic Respiratory Failure - She is high risk for pseudomonas due to recent use of steroids - Continue IV Zosyn and Levaquin for pharmacy to renally dose; Gm +/- coverage - Supplemental O2, Bronchodilators, IV Mg, IS q2 awake and Cough Suppressant/ Expectorant - Mycoplasma, RVP and Blood Cx- all negative - Sputum Cx pos for Probable Strep Pneumonia End Stage COPD Exacerbation - IV Steroids, Scheduled and PRN Bronchodilators, O2 - IS Q2 awake - Decongestant/Expectorant - Sputum Cx/Sx-Strep Pneumonia - PRN BIPAP for RT to assess and treat Respiratory Failure - Acute on Chronic Hypercapneic and Hypoxic - 2/2 Above - ABG: pH of 7.32, PO2 59.1, pCO2 of 81.1, HCO3 of 40.1, and O2 sat at 87% on 4L NC; repeat ABG better this AM - Changed BIPAP setting, 12/6 o 0.4 - Treat underlying cause above Tachycardic and Hypertension-->resolved - Side effects of Medications - Continue Levalbuterol scheduled and as needed and Ipratropium - Discontinue Digoxin and Theophylline (arrhythmogenic) - Continue Cardizem drip and will resume Metoprolol since her ABG is much better - PRN BIPAP hopefully to help improve pressure as well End of Life Care - She is not agreeable to Hospice/Palliative Care remains not receptive - Has had multiple discussions in the past Chronic: Impaired Vision HTN OA/DJD Osteoporosis Back Pain Migraines Chronic Pain Depression Anxiety Plan: Routine AM Labs PRN Medications 2D echo once heart rate is stable Repeat labs this afternoon Continue oral theophylline for bronchospasm and stimulant RT to assess and treat Discontinue /PT/OT as she is not appropriate at this point May benefit with cardiopulmonary rehab but not home health SW/CM for d/c planning Additional orders as above Code status: 1 Prognosis is serious-guarded
[2018-10-30] MEDS ORDERED: cefTRIAXone 2 GM in Sodium Chloride 0.9% 100 ML IV SCH (14:30)
[2018-10-30] MEDS: cefTRIAXone 2 GM in Sodium Chloride 0.9% 100 ML IV SCH (16:57)
[2018-10-30] MEDS: Acetaminophen/HYDROcodone 325-10 MG Tab PO PRN (17:12)
[2018-10-30] MEDS: QUEtiapine 25 MG Tab PO SCH (20:07)
[2018-10-30] MEDS: Mirtazapine 30 MG Tab PO SCH (20:07)
[2018-10-31] MEDS: cefTRIAXone 2 GM in Sodium Chloride 0.9% 100 ML IV SCH ×2 (04:01→16:49)
[2018-10-31] MEDS: methylPREDNISolone Sodium Succinate 125 MG/2 ML SDV IVPUSH SCH ×3 (04:03→20:05)
[2018-10-31] MEDS: Sodium Chloride 0.9% 1,000 ML IV SCH (04:37)
[2018-10-31] MEDS: Piperacillin/Tazobactam 4.5 GM in Sodium Chloride 0.9% 100 ML IV SCH (04:37)
[2018-10-31] MEDS: Acetaminophen/HYDROcodone 325-10 MG Tab PO PRN ×2 (04:59→22:51)
[2018-10-31] MEDS: Levalbuterol HCl 1.25 MG/0.5 ML Neb NEB SCH ×4 (05:59→20:47)
[2018-10-31] MEDS: Ipratropium 0.02% 0.5 MG/2.5 ML Neb Soln NEB SCH ×3 (05:59→20:47)
[2018-10-31] MEDS: Diltiazem 180 MG Cap.CD PO SCH (08:37)
[2018-10-31] MEDS: ALPRAZolam 1 MG Tab PO SCH ×2 (08:37→20:06)
[2018-10-31] MEDS: Enoxaparin 40 MG/0.4 ML Syringe SUBCUT SCH (08:39)
[2018-10-31] MEDS: Metoprolol Tartrate 50 MG Tab PO SCH ×2 (08:40→20:06)
[2018-10-31] MEDS: guaiFENesin 600 MG Tab.ER PO SCH ×2 (08:40→20:05)
[2018-10-31] MEDS: Hydrochlorothiazide/Triamterene 25-37.5 MG Cap PO SCH (08:40)
[2018-10-31] MEDS: Magnesium Oxide 400 MG Tab PO SCH (08:41)
[2018-10-31] MEDS: ROFLUMILAST 500 MG PO SCH (08:41)
[2018-10-31] MEDS: hydrALAZINE 20 MG/ML SDV IVPUSH PRN ×2 (10:36→17:13)
[2018-10-31] MEDS: Formoterol/Mometasone 100-5 MCG 8.8 GM Inhaler IH SCH ×2 (11:12→20:52)
[2018-10-31] MEDS: Tiotropium Inhaler 18 MCG Inhalation Powder Cap Kit of 5 INH SCH (11:13)
--- NOTE | 2018-10-31 11:52 | CR ---
Chest: Portable view of the chest was obtained. Comparison: Prior chest x-ray of 10/28/18. Heart size and mediastinum are within normal limits for portable technique. Lung markings are mildly increased which appear stable from prior exam. Right shoulder prosthesis is noted. No acute bony abnormality is appreciated. Impression: 1. Stable chest x-ray. Nothing acute is appreciated. Diagnostic code #2
--- NOTE | 2018-10-31 12:24 | PCM.PN ---
- General Info Date of Service: 10/31/18 Subjective Update: Family meeting with patient and her sons, code status as well as patient's current health status/prognosis. She has tired quickly off of BIPAP, has been chamged to Rocephin 2 gm Q 12H, Levoquin has been stopped. Functional Status: Reports: Pain Controlled, Tolerating Diet, Urinating - Review of Systems General: Reports: Weakness, Fatigue, Malaise HEENT: Reports: No Symptoms Pulmonary: Reports: Shortness of Breath Cardiovascular: Reports: No Symptoms Gastrointestinal: Reports: No Symptoms Genitourinary: Reports: No Symptoms Musculoskeletal: Reports: No Symptoms Skin: Reports: No Symptoms Neurological: Reports: No Symptoms Psychiatric: Reports: No Symptoms - Patient Data Vitals - Most Recent: Last Vital Signs Temp 37.3 C 10/31/18 12:00 Pulse 106 H 10/31/18 08:40 Resp 24 H 10/31/18 12:00 BP 144/85 H 10/31/18 12:00 Pulse Ox 96 10/31/18 12:00 Weight - Most Recent: 66.361 kg I&O - Last 24 Hours: Intake & Output 10/30/18 10/31/18 10/31/18 22:59 06:59 14:59 Intake Total 1000 582 100 Output Total 700 650 Balance 300 -68 100 Lab Results Last 24 Hours: Laboratory Results - last 24 hr 10/31/18 10/31/18 10/31/18 Range/Units 10:51 11:10 11:10 WBC 10.77 H (3.98-10.04) K/mm3 RBC 3.86 L (3.98-5.22) M/mm3 Hgb 10.6 L (11.2-15.7) gm/L Hct 34.8 (34.1-44.9) % MCV 90.2 (79.4-94.8) fl MCH 27.5 (25.6-32.2) pg MCHC 30.5 L (32.2-35.5) g/dl RDW Std Deviation 45.1 (36.4-46.3) fL Plt Count 410 H (182-369) K/mm3 MPV 8.7 L (9.4-12.3) fl Neut % (Auto) 89.6 H (34.0-71.1) % Lymph % (Auto) 3.7 L (19.3-51.7) % [place] % (Auto) 4.1 L (4.7-12.5) % Eos % (Auto) 0 L (0.7-5.8) Baso % (Auto) 0.2 (0.1-1.2) % Neut # (Auto) 9.65 H (1.56-6.13) K/mm3 Lymph # (Auto) 0.40 L (1.18-3.74) K/mm3 [place] # (Auto) 0.44 H (0.24-0.36) K/mm3 Eos # (Auto) 0.00 L (0.04-0.36) K/mm3 Baso # (Auto) 0.02 (0.01-0.08) K/mm3 Manual Slide Review Abnormal smear ABG pH 7.42 (7.35-7.45) ABG pCO2 65.7 H (35.0-45.0) mmHg ABG pO2 74.0 L (80.0-100.0) mmHg FiO2 0.00 L (21.00-100.00) % Sodium 138 (136-145) mEq/L Potassium 3.9 (3.5-5.1) mEq/L Chloride 98 (98-107) mEq/L Carbon Dioxide 37 H (21-32) mEq/L Anion Gap 6.9 (5-15) BUN 36 H (7-18) mg/dL Creatinine 1.0 (0.55-1.02) mg/dL Est Cr Clr Drug Dosing 56.18 mL/min Estimated GFR (MDRD) 58 (>60) mL/min BUN/Creatinine Ratio 36.0 H (14-18) Glucose 160 H (74-106) mg/dL Calcium 9.6 (8.5-10.1) mg/dL Magnesium 2.3 (1.8-2.4) mg/dl C-Reactive Protein 0.5 (<1.0) mg/dL John Results Last 24 Hours: Microbiology 10/26/18 14:55 Aerobic Blood Culture - Preliminary Blood - Venous - Lab Draw NO GROWTH AFTER 4 DAYS Anaerobic Blood Culture - Preliminary NO GROWTH AFTER 4 DAYS 10/26/18 14:45 Aerobic Blood Culture - Preliminary Blood - Venous NO GROWTH AFTER 4 DAYS Anaerobic Blood Culture - Preliminary NO GROWTH AFTER 4 DAYS Med Orders - Current: Current Medications Acetaminophen (Tylenol) 650 mg PO Q4H PRN PRN Reason: Pain (Mild 1-3)/fever Hydrocodone Bitart/Acetaminophen ([place] 325-10 Mg) 1 tab PO Q6H PRN PRN Reason: PAIN Last Admin: 10/31/18 04:59 Dose: 1 tab Alprazolam (Xanax) 1 mg PO BID@0800,2000 [facility] Last Admin: 10/31/18 08:37 Dose: 1 mg Bisacodyl (Dulcolax) 5 mg PO DAILY PRN PRN Reason: Constipation Last Admin: 10/31/18 08:41 Dose: 5 mg Clonidine HCl (Catapres-Tts 3) 0.3 mg TRDERM Q7D [facility] Last Admin: 10/26/18 20:29 Dose: 0.3 mg Diltiazem HCl (Cardizem Cd) 180 mg PO DAILY [facility] Last Admin: 10/31/18 08:37 Dose: 180 mg Docusate Sodium (Colace) 100 mg PO BID PRN PRN Reason: Constipation Enoxaparin Sodium (Lovenox) 40 mg SUBCUT DAILY [facility] Last Admin: 10/31/18 08:39 Dose: 40 mg Guaifenesin (Mucinex) 1,200 mg PO BID [facility] Last Admin: 10/31/18 08:40 Dose: 1,200 mg Hydralazine HCl (Apresoline) 20 mg IVPUSH Q4H PRN PRN Reason: Hypertension Last Admin: 10/31/18 10:36 Dose: 20 mg Diltiazem HCl 125 mg/ Sodium (Chloride) 125 mls @ 5 mls/hr IV TITRATE [facility]; Protocol Last Titration: 10/28/18 10:06 Dose: Infused Sodium Chloride (Normal Saline) 1,000 mls @ 50 mls/hr IV ASDIRECTED [facility] Last Admin: 10/31/18 04:37 Dose: 50 mls/hr Ceftriaxone Sodium 2 gm/ (Sodium Chloride) 100 mls @ 200 mls/hr IV Q12H [facility] Last Admin: 10/31/18 04:01 Dose: 200 mls/hr Ipratropium [place] (Atrovent) 0.5 mg NEB Q8HRRT [facility] Last Admin: 10/31/18 05:59 Dose: 0.5 mg Levalbuterol HCl (Xopenex) 1.25 mg NEB QIDRT [facility] Last Admin: 10/31/18 10:57 Dose: 1.25 mg Magnesium Oxide (Magnesium Oxide) 400 mg PO DAILY [facility] Last Admin: 10/31/18 08:41 Dose: 400 mg Methylprednisolone Sodium Succinate (Solu-Medrol) 125 mg IVPUSH Q8H [facility] Last Admin: 10/31/18 12:23 Dose: 125 mg Metoprolol Tartrate (Lopressor) 50 mg PO Q12H [facility] Last Admin: 10/31/18 08:40 Dose: 50 mg Mirtazapine (Remeron) 30 mg PO BEDTIME [facility] Last Admin: 10/30/18 20:07 Dose: 30 mg Miscellaneous Information (Remove Patch) 1 ea TRDERM Q7D [facility] Mometasone Furoate/Formoterol Fumar (Dulera 100-5 Mcg) 0 puff IH BID [facility] Last Admin: 10/31/18 11:12 Dose: Not Given Morphine Sulfate (Morphine) 0.5 mg IVPUSH Q4H PRN PRN Reason: Dyspnea Last Admin: 10/30/18 14:44 Dose: 0.5 mg Nystatin (Mycostatin) 5 ml PO QID PRN PRN Reason: thrush Ondansetron HCl (Zofran) 4 mg IV Q6H PRN PRN Reason: Nausea/Vomiting Last Admin: 10/27/18 16:13 Dose: 4 mg Roflumilast 500 Mg 500 each PO DAILY [facility] Last Admin: 10/31/18 08:41 Dose: Not Given Polyethylene Glycol (Miralax) 17 gm PO DAILY PRN PRN Reason: Constipation Quetiapine Fumarate (Seroquel) 50 mg PO BEDTIME [facility] Last Admin: 10/30/18 20:07 Dose: 50 mg Senna/Docusate Sodium (Senna Plus) 1 tab PO BID PRN PRN Reason: Constipation Tiotropium [place] (Spiriva Handihaler) 18 mcg INH DAILY [facility] Last Admin: 10/31/18 11:13 Dose: Not Given Triamterene/HCTZ (Dyazide 25-37.5 Mg) 1 each PO DAILY [facility] Last Admin: 10/31/18 08:40 Dose: 1 each Discontinued Medications Albuterol (Proventil Neb Soln) 2.5 mg NEB ONETIME ONE Stop: 10/26/18 14:44 Last Admin: 10/26/18 15:15 Dose: 2.5 mg Albuterol (Proventil Neb Soln) 2.5 mg NEB ONETIME ONE Stop: 10/26/18 15:33 Last Admin: 10/26/18 16:06 Dose: 2.5 mg Albuterol (Proventil Hfa) 0 gm INH Q4H PRN PRN Reason: Shortness of Breath Albuterol/Ipratropium (Duoneb 3.0-0.5 Mg/3 Ml) 3 ml NEB ONETIME ONE Stop: 10/26/18 13:59 Last Admin: 10/26/18 14:32 Dose: 3 ml Albuterol/Ipratropium (Duoneb 3.0-0.5 Mg/3 Ml) 3 ml NEB Q4H PRN PRN Reason: Shortness Of Breath/wheezing Alprazolam (Xanax) 1 mg PO BID SHAUN Last Admin: 10/26/18 20:08 Dose: Not Given Aminophylline (Aminophylline) 250 mg IV ONETIME ONE Stop: 10/27/18 18:49 Last Admin: 10/27/18 21:40 Dose: Not Given Clonidine HCl (Catapres) 0.1 mg PO ONETIME ONE Stop: 10/26/18 16:40 Last Admin: 10/26/18 16:55 Dose: 0.1 mg Digoxin (Lanoxin) 250 mcg IVPUSH ONETIME ONE Stop: 10/27/18 23:46 Last Admin: 10/28/18 00:03 Dose: 250 mcg Digoxin (Lanoxin) 125 mcg IVPUSH ONETIME ONE Stop: 10/28/18 06:01 Last Admin: 10/28/18 06:00 Dose: 125 mcg Diltiazem HCl (Cardizem) 10 mg IVPUSH Q6H PRN PRN Reason: Tachycardia Last Admin: 10/26/18 20:22 Dose: 10 mg Diltiazem HCl (Cardizem) 10 mg IVPUSH Q4H PRN PRN Reason: Tachycardia Last Admin: 10/27/18 15:20 Dose: 10 mg Diltiazem HCl (Cardizem Cd) 180 mg PO ONETIME ONE Stop: 10/27/18 09:12 Last Admin: 10/27/18 09:38 Dose: 180 mg Glycopyrrolate (Seebri Neohaler) 0 mcg IH BID SHAUN Hydromorphone HCl (Dilaudid) 0.5 mg IVPUSH ONETIME ONE Stop: 10/26/18 14:45 Last Admin: 10/26/18 14:59 Dose: 0.5 mg Lactated Ringer's (Ringers, Lactated) 500 mls @ 999 mls/hr IV .BOLUS ONE Stop: 10/26/18 14:25 Last Admin: 10/26/18 14:12 Dose: 999 mls/hr Ceftriaxone Sodium 2 gm/ (Sodium Chloride) 100 mls @ 200 mls/hr IV NOW STA Stop: 10/26/18 15:12 Last Admin: 10/26/18 15:00 Dose: 200 mls/hr Lactated Ringer's (Ringers, Lactated) 1,000 mls @ 125 mls/hr IV ASDIRECTED [facility] Last Admin: 10/26/18 16:55 Dose: 125 mls/hr Magnesium Sulfate 2 gm/ Premix 50 mls @ 50 mls/hr IV ONETIME ONE Stop: 10/26/18 19:14 Last Admin: 10/26/18 18:27 Dose: 50 mls/hr Potassium Chloride 10 meq/ (Premix) 100 mls @ 100 mls/hr IV Q1H [facility] Stop: 10/26/18 23:29 Last Admin: 10/26/18 20:14 Dose: Not Given Levofloxacin/Dextrose 750 mg/ (Premix) 150 mls @ 100 mls/hr IV Q24H [facility] Last Admin: 10/26/18 20:15 Dose: Not Given Piperacillin Sod/Tazobactam (Sod 4.5 gm/ Sodium Chloride) 100 mls @ 25 mls/hr IV Q8H [facility] Last Admin: 10/31/18 04:37 Dose: 25 mls/hr Piperacillin Sod/Tazobactam (Sod 4.5 gm/ Sodium Chloride) 100 mls @ 200 mls/hr IV ONETIME ONE Stop: 10/26/18 20:29 Last Admin: 10/26/18 20:33 Dose: 200 mls/hr Magnesium Sulfate/Dextrose 1 (gm/ Premix) 100 mls @ 100 mls/hr IV ONETIME ONE Stop: 10/26/18 19:49 Last Admin: 10/26/18 20:01 Dose: Not Given Levofloxacin/Dextrose 750 mg/ (Premix) 150 mls @ 100 mls/hr IV Q24H [facility] Last Admin: 10/27/18 20:22 Dose: 100 mls/hr Aminophylline 250 mg/ Dextrose (/Water) 60 mls @ 6.84 mls/hr IV ONETIME ONE Stop: 10/27/18 06:46 Last Admin: 10/27/18 01:13 Dose: Not Given Aminophylline 250 mg/ Sodium (Chloride) 60 mls @ 6.84 mls/hr IV ONETIME ONE Stop: 10/27/18 08:01 Last Admin: 10/26/18 23:27 Dose: 0.5 mg/kg/hr, 6.84 mls/hr Aminophylline 250 mg/ Sodium (Chloride) 60 mls @ 180 mls/hr IV ONETIME ONE Stop: 10/27/18 19:19 Last Admin: 10/27/18 19:53 Dose: 180 mls/hr Sodium Chloride (Normal Saline) Confirm Administered Dose 100 mls @ as directed .ROUTE .STK-MED ONE Stop: 10/28/18 01:06 Last Admin: 10/28/18 01:15 Dose: Not Given Sodium Chloride (Normal Saline) 500 mls @ 999 mls/hr IV .BOLUS ONE Stop: 10/28/18 08:17 Last Admin: 10/28/18 08:40 Dose: 999 mls/hr Levofloxacin/Dextrose 750 mg/ (Premix) 150 mls @ 100 mls/hr IV Q48H [facility] Last Admin: 10/29/18 20:11 Dose: 100 mls/hr Ceftriaxone Sodium 2 gm/ (Sodium Chloride) 100 mls @ 200 mls/hr IV Q12H [facility] Last Admin: 10/30/18 15:34 Dose: Not Given Ipratropium [place] (Atrovent) 0.5 mg NEB BID [facility] Last Admin: 10/30/18 09:52 Dose: 0.5 mg Levalbuterol HCl (Xopenex) 1.25 mg NEB Q6H PRN PRN Reason: SOB/Dyspnea Last Admin: 10/30/18 03:42 Dose: 1.25 mg Levalbuterol HCl (Xopenex) 1.25 mg NEB BID [facility] Last Admin: 10/30/18 10:13 Dose: Not Given Levalbuterol HCl (Xopenex) 1.25 mg NEB QID [facility] Last Admin: 10/30/18 10:24 Dose: 1.25 mg Lorazepam (Ativan) 1 mg IVPUSH ONETIME ONE Stop: 10/26/18 13:57 Last Admin: 10/26/18 14:12 Dose: 1 mg Lorazepam (Ativan) 0.5 mg IVPUSH ONETIME ONE Stop: 10/26/18 16:40 Last Admin: 10/26/18 16:54 Dose: 0.5 mg Magnesium Sulfate (Pharmacy To Dose - Magnesium Replacement) 1 dose .XX ASDIRECTED [facility] Methylprednisolone Sodium Succinate (Solu-Medrol) 125 mg IVPUSH ONETIME ONE Stop: 10/26/18 14:45 Last Admin: 10/26/18 15:00 Dose: 125 mg Methylprednisolone Sodium Succinate (Solu-Medrol) 80 mg IVPUSH Q8H [facility] Last Admin: 10/30/18 05:01 Dose: 80 mg Metoprolol Tartrate (Lopressor) 5 mg IVPUSH Q4H PRN PRN Reason: Tachycardia Last Admin: 10/26/18 19:11 Dose: 5 mg Metoprolol Tartrate (Lopressor) 25 mg PO BID [facility] Last Admin: 10/27/18 08:30 Dose: Not Given Potassium Chloride (Pharmacy To Dose - Potassium Replacement) 1 dose .XX ASDIRECTED [facility] Potassium Chloride (Klor-Con M20) 40 meq PO ONETIME ONE Stop: 10/28/18 09:01 Last Admin: 10/28/18 08:51 Dose: 40 meq Theophylline (Theophylline Anhydrous) 300 mg PO DAILY [facility] Last Admin: 10/27/18 08:32 Dose: 300 mg Theophylline (Theophylline Anhydrous) 300 mg PO BID [facility] Last Admin: 10/27/18 20:32 Dose: 300 mg - Exam Quality Assessment: Supplemental Oxygen, DVT Prophylaxis General: Alert, Oriented, Mild Distress HEENT: Pupils Equal, Pupils Reactive, EOMI Neck: Trachea Midline, No JVD Lungs: Normal Respiratory Effort, Decreased Breath Sounds, Rhonchi Cardiovascular: Regular Rate GI/Abdominal Exam: Normal Bowel Sounds, Soft, Non-Tender, No Organomegaly, No Distention (Female) Exam: Deferred Back Exam: Normal Inspection Extremities: Normal Inspection, Non-Tender, Normal Capillary Refill Skin: Warm Neurological: No New Focal Deficit Psy/Mental Status: Alert - Problem List & Annotations (1) COPD exacerbation SNOMED Code(s): 192158366 Code(s): J44.1 - CHRONIC OBSTRUCTIVE PULMONARY DISEASE W (ACUTE) EXACERBATION Status: Acute Current Visit: Yes (2) Pneumonia SNOMED Code(s): 474195080 Code(s): J18.9 - PNEUMONIA, UNSPECIFIED ORGANISM Status: Acute Current Visit: Yes (3) Acute febrile illness SNOMED Code(s): 191942049 Code(s): R50.9 - FEVER, UNSPECIFIED Status: Acute Current Visit: No (4) Depression with anxiety SNOMED Code(s): 70187321, 772540208 Code(s): F41.8 - OTHER SPECIFIED ANXIETY DISORDERS Status: Acute Current Visit: No (5) End stage COPD SNOMED Code(s): 219804593 Code(s): J44.9 - CHRONIC OBSTRUCTIVE PULMONARY DISEASE, UNSPECIFIED Status : Acute Current Visit: No (6) Pulmonary hypertension SNOMED Code(s): 93229563 Code(s): I27.2 - OTHER SECONDARY PULMONARY HYPERTENSION * DO NOT USE * Status: Acute Current Visit: No - Problem List Review Problem List Initiated/Reviewed/Updated: Yes - My Orders Last 24 Hours: My Active Orders 10/30/18 13:00 methylPREDNISolone Sod Succ [Solu-MEDROL] 125 mg IVPUSH Q8H 10/30/18 14:00 Ipratropium [Atrovent] 0.5 mg NEB Q8HRRT 10/30/18 16:00 Levalbuterol HCl [Xopenex] 1.25 mg NEB QIDRT 10/30/18 17:00 cefTRIAXone [Rocephin] 2 gm Sodium Chloride 0.9% [Normal Saline] 100 ml IV Q12H 10/31/18 10:04 RT Arterial Blood Gases, ABG [RC] Click to Edit - Plan Plan:: Assessment/Plan: Acute: CAP 2/2 Probable Strep Pneumoniae - CXR shows increased density within the lingula - Failed outpatient treatment - Just completed oral Levaquin and Taper dose of Prednisone - Risk Factors: End Stage COPD and Chronic Respiratory Failure - She is high risk for pseudomonas due to recent use of steroids - Continue IV Zosyn and Levaquin for pharmacy to renally dose; Gm +/- coverage - Supplemental O2, Bronchodilators, IV Mg, IS q2 awake and Cough Suppressant/ Expectorant - Mycoplasma, RVP and Blood Cx- all negative - Sputum Cx pos for Probable Strep Pneumonia End Stage COPD Exacerbation - IV Steroids, Scheduled and PRN Bronchodilators, O2 - IS Q2 awake - Decongestant/Expectorant - Sputum Cx/Sx-Strep Pneumonia - PRN BIPAP for RT to assess and treat Respiratory Failure - Acute on Chronic Hypercapneic and Hypoxic - 2/2 Above - ABG: pH of 7.32, PO2 59.1, pCO2 of 81.1, HCO3 of 40.1, and O2 sat at 87% on 4L NC; repeat ABG better this AM - Changed BIPAP setting, 12/6 o 0.4 - Treat underlying cause above -Has mainatined stable blood gas on NC cf BIPAP, will monitor; results were reviewed with patient and sons Tachycardic and Hypertension-->resolved - Side effects of Medications - Continue Levalbuterol scheduled and as needed and Ipratropium - Discontinue Digoxin and Theophylline (arrhythmogenic) - Continue Cardizem drip and will resume Metoprolol since her ABG is much better - PRN BIPAP hopefully to help improve pressure as well End of Life Care - She is not agreeable to Hospice/Palliative Care remains not receptive - Has had multiple discussions in the past -Family meeting held, will consider change in code status but is currently full code. Chronic: Impaired Vision HTN OA/DJD Osteoporosis Back Pain Migraines Chronic Pain Depression Anxiety Plan: Routine AM Labs PRN Medications 2D echo once heart rate is stable Repeat labs this afternoon Continue oral theophylline for bronchospasm and stimulant RT to assess and treat Discontinue /PT/OT as she is not appropriate at this point May benefit with cardiopulmonary rehab but not home health SW/CM for d/c planning Additional orders as above Code status: 1 Prognosis is serious-guarded LOS>96 hours with slow response to PNA; hx of end stage lug disease.
[2018-10-31] MEDS: Morphine 2 MG/ML Syringe IVPUSH PRN (14:14)
[2018-10-31] MEDS: QUEtiapine 25 MG Tab PO SCH (20:05)
[2018-10-31] MEDS: Mirtazapine 30 MG Tab PO SCH (20:07)
[2018-11-01] MEDS: Sodium Chloride 0.9% 1,000 ML IV SCH ×2 (01:25→21:23)
[2018-11-01] MEDS: methylPREDNISolone Sodium Succinate 125 MG/2 ML SDV IVPUSH SCH (04:24)
[2018-11-01] MEDS: cefTRIAXone 2 GM in Sodium Chloride 0.9% 100 ML IV SCH ×2 (04:25→17:00)
[2018-11-01] MEDS: Ipratropium 0.02% 0.5 MG/2.5 ML Neb Soln NEB SCH ×3 (05:51→20:14)
[2018-11-01] MEDS: Levalbuterol HCl 1.25 MG/0.5 ML Neb NEB SCH ×4 (05:51→20:14)
[2018-11-01] MEDS: Morphine 2 MG/ML Syringe IVPUSH PRN ×2 (06:18→10:52)
[2018-11-01] MEDS: Magnesium Oxide 400 MG Tab PO SCH (08:39)
[2018-11-01] MEDS: guaiFENesin 600 MG Tab.ER PO SCH ×2 (08:39→20:34)
[2018-11-01] MEDS: Hydrochlorothiazide/Triamterene 25-37.5 MG Cap PO SCH (08:39)
[2018-11-01] MEDS: Diltiazem 180 MG Cap.CD PO SCH (08:40)
[2018-11-01] MEDS: Metoprolol Tartrate 50 MG Tab PO SCH ×2 (08:40→20:35)
[2018-11-01] MEDS: Enoxaparin 40 MG/0.4 ML Syringe SUBCUT SCH (08:40)
[2018-11-01] MEDS: ROFLUMILAST 500 MG PO SCH (08:40)
[2018-11-01] MEDS: ALPRAZolam 1 MG Tab PO SCH ×2 (08:40→20:34)
[2018-11-01] MEDS: Formoterol/Mometasone 100-5 MCG 8.8 GM Inhaler IH SCH ×2 (09:19→20:30)
[2018-11-01] MEDS: Tiotropium Inhaler 18 MCG Inhalation Powder Cap Kit of 5 INH SCH (09:19)
[2018-11-01] MEDS: Acetaminophen/HYDROcodone 325-10 MG Tab PO PRN ×2 (13:27→20:34)
[2018-11-01] MEDS ORDERED: Magnesium Sulfate/Water 4 GM in Premix Bag 1 BAG IV ONE (15:30)
[2018-11-01] MEDS ORDERED: methylPREDNISolone Sodium Succinate 125 MG/2 ML SDV IVPUSH ONE (17:00)
[2018-11-01] MEDS: QUEtiapine 25 MG Tab PO SCH (20:33)
[2018-11-01] MEDS: Mirtazapine 30 MG Tab PO SCH (20:34)
[2018-11-02] MEDS: Morphine 2 MG/ML Syringe IVPUSH PRN ×4 (04:57→21:48)
[2018-11-02] MEDS: cefTRIAXone 2 GM in Sodium Chloride 0.9% 100 ML IV SCH ×2 (04:57→16:25)
[2018-11-02] MEDS: methylPREDNISolone Sodium Succinate 40 MG/1 ML SDV IVPUSH SCH ×2 (04:59→17:10)
[2018-11-02] MEDS: Ipratropium 0.02% 0.5 MG/2.5 ML Neb Soln NEB SCH ×3 (05:08→21:05)
[2018-11-02] MEDS: Levalbuterol HCl 1.25 MG/0.5 ML Neb NEB SCH ×4 (05:08→21:05)
[2018-11-02] MEDS: guaiFENesin 600 MG Tab.ER PO SCH ×2 (08:37→21:48)
[2018-11-02] MEDS: Metoprolol Tartrate 50 MG Tab PO SCH ×2 (08:37→21:48)
[2018-11-02] MEDS: Magnesium Oxide 400 MG Tab PO SCH (08:37)
[2018-11-02] MEDS: ALPRAZolam 1 MG Tab PO SCH ×2 (08:37→21:48)
[2018-11-02] MEDS: Diltiazem 180 MG Cap.CD PO SCH (08:37)
[2018-11-02] MEDS: Hydrochlorothiazide/Triamterene 25-37.5 MG Cap PO SCH (08:37)
[2018-11-02] MEDS: Enoxaparin 40 MG/0.4 ML Syringe SUBCUT SCH (08:38)
[2018-11-02] MEDS: ROFLUMILAST 500 MG PO SCH (08:38)
[2018-11-02] MEDS: Acetaminophen/HYDROcodone 325-10 MG Tab PO PRN (08:42)
[2018-11-02] MEDS: Potassium Chloride 20 MEQ Tab.ER PO SCH ×2 (11:05→21:44)
--- NOTE | 2018-11-02 13:50 | PCM.PN ---
- General Info Date of Service: 11/01/18 Subjective Update: Brief family meeting incudes current update and code status; greatly improved code status remains full. Functional Status: Reports: Pain Controlled, Tolerating Diet, Urinating - Review of Systems General: Reports: Weakness, Fatigue HEENT: Reports: No Symptoms Pulmonary: Reports: Shortness of Breath Cardiovascular: Reports: No Symptoms Gastrointestinal: Reports: No Symptoms Genitourinary: Reports: No Symptoms Musculoskeletal: Reports: No Symptoms Skin: Reports: No Symptoms Neurological: Reports: No Symptoms Psychiatric: Reports: No Symptoms - Patient Data Vitals - Most Recent: Last Vital Signs Temp 37.1 C 11/02/18 12:00 Pulse 88 11/02/18 08:37 Resp 20 11/02/18 12:00 BP 139/76 11/02/18 12:00 Pulse Ox 94 L 11/02/18 12:00 Weight - Most Recent: 66.361 kg I&O - Last 24 Hours: Intake & Output 11/01/18 11/02/18 11/02/18 22:59 06:59 14:59 Intake Total 1316 1298 240 Output Total 700 250 Balance 1316 598 -10 Lab Results Last 24 Hours: Laboratory Results - last 24 hr 11/02/18 11/02/18 Range/Units 05:41 05:41 WBC 7.82 (3.98-10.04) K/mm3 RBC 3.90 L (3.98-5.22) M/mm3 Hgb 10.7 L (11.2-15.7) gm/L Hct 34.8 (34.1-44.9) % MCV 89.2 (79.4-94.8) fl MCH 27.4 (25.6-32.2) pg MCHC 30.7 L (32.2-35.5) g/dl RDW Std Deviation 43.5 (36.4-46.3) fL Plt Count 350 (182-369) K/mm3 MPV 9.2 L (9.4-12.3) fl Neut % (Auto) 90.5 H (34.0-71.1) % Lymph % (Auto) 4.3 L (19.3-51.7) % Mckinley % (Auto) 4.6 L (4.7-12.5) % Eos % (Auto) 0 L (0.7-5.8) Baso % (Auto) 0.0 L (0.1-1.2) % Neut # (Auto) 7.07 H (1.56-6.13) K/mm3 Lymph # (Auto) 0.34 L (1.18-3.74) K/mm3 Mckinley # (Auto) 0.36 (0.24-0.36) K/mm3 Eos # (Auto) 0.00 L (0.04-0.36) K/mm3 Baso # (Auto) 0.00 L (0.01-0.08) K/mm3 Manual Slide Review Abnormal smear Sodium 141 (136-145) mEq/L Potassium 3.3 L (3.5-5.1) mEq/L Chloride 101 (98-107) mEq/L Carbon Dioxide 35 H (21-32) mEq/L Anion Gap 8.3 (5-15) BUN 30 H (7-18) mg/dL Creatinine 0.9 (0.55-1.02) mg/dL Est Cr Clr Drug Dosing 62.42 mL/min Estimated GFR (MDRD) > 60 (>60) mL/min BUN/Creatinine Ratio 33.3 H (14-18) Glucose 180 H (74-106) mg/dL Calcium 8.8 (8.5-10.1) mg/dL Magnesium 1.8 (1.8-2.4) mg/dl C-Reactive Protein < 0.2 (<1.0) mg/dL John Results Last 24 Hours: Microbiology 10/26/18 14:55 Aerobic Blood Culture - Preliminary Blood - Venous - Lab Draw NO GROWTH AFTER 6 DAYS Anaerobic Blood Culture - Preliminary NO GROWTH AFTER 6 DAYS 10/26/18 14:45 Aerobic Blood Culture - Preliminary Blood - Venous NO GROWTH AFTER 6 DAYS Anaerobic Blood Culture - Preliminary NO GROWTH AFTER 6 DAYS Med Orders - Current: Current Medications Acetaminophen (Tylenol) 650 mg PO Q4H PRN PRN Reason: Pain (Mild 1-3)/fever Hydrocodone Bitart/Acetaminophen (Tyler 325-10 Mg) 1 tab PO Q6H PRN PRN Reason: PAIN Last Admin: 11/02/18 08:42 Dose: 1 tab Alprazolam (Xanax) 1 mg PO BID@0800,2000 SHAUN Last Admin: 11/02/18 08:37 Dose: 1 mg Bisacodyl (Dulcolax) 5 mg PO DAILY PRN PRN Reason: Constipation Last Admin: 10/31/18 08:41 Dose: 5 mg Clonidine HCl (Catapres-Tts 3) 0.3 mg TRDERM Q7D [facility] Last Admin: 10/26/18 20:29 Dose: 0.3 mg Diltiazem HCl (Cardizem Cd) 180 mg PO DAILY [facility] Last Admin: 11/02/18 08:37 Dose: 180 mg Docusate Sodium (Colace) 100 mg PO BID PRN PRN Reason: Constipation Enoxaparin Sodium (Lovenox) 40 mg SUBCUT DAILY [facility] Last Admin: 11/02/18 08:38 Dose: 40 mg Guaifenesin (Mucinex) 1,200 mg PO BID [facility] Last Admin: 11/02/18 08:37 Dose: 1,200 mg Hydralazine HCl (Apresoline) 20 mg IVPUSH Q4H PRN PRN Reason: Hypertension Last Admin: 10/31/18 17:13 Dose: 20 mg Diltiazem HCl 125 mg/ Sodium (Chloride) 125 mls @ 5 mls/hr IV TITRATE [facility]; Protocol Last Titration: 10/28/18 10:06 Dose: Infused Sodium Chloride (Normal Saline) 1,000 mls @ 50 mls/hr IV ASDIRECTED [facility] Last Admin: 11/01/18 21:23 Dose: 50 mls/hr Ceftriaxone Sodium 2 gm/ (Sodium Chloride) 100 mls @ 200 mls/hr IV Q12H [facility] Last Admin: 11/02/18 04:57 Dose: 200 mls/hr Ipratropium [place] (Atrovent) 0.5 mg NEB Q8HRRT [facility] Last Admin: 11/02/18 05:08 Dose: 0.5 mg Levalbuterol HCl (Xopenex) 1.25 mg NEB QIDRT [facility] Last Admin: 11/02/18 09:29 Dose: 1.25 mg Magnesium Oxide (Magnesium Oxide) 400 mg PO DAILY [facility] Last Admin: 11/02/18 08:37 Dose: 400 mg Methylprednisolone Sodium Succinate (Solu-Medrol) 80 mg IVPUSH Q12H [facility] Stop: 11/02/18 20:00 Last Admin: 11/02/18 04:59 Dose: 80 mg Methylprednisolone Sodium Succinate (Solu-Medrol) 40 mg IVPUSH Q12H [facility] Metoprolol Tartrate (Lopressor) 50 mg PO Q12H [facility] Last Admin: 11/02/18 08:37 Dose: 50 mg Mirtazapine (Remeron) 30 mg PO BEDTIME [facility] Last Admin: 11/01/18 20:34 Dose: 30 mg Miscellaneous Information (Remove Patch) 1 ea TRDERM Q7D [facility] Mometasone Furoate/Formoterol Fumar (Dulera 100-5 Mcg) 0 puff IH BID [facility] Last Admin: 11/01/18 20:30 Dose: Not Given Morphine Sulfate (Morphine) 0.5 mg IVPUSH Q4H PRN PRN Reason: Dyspnea Last Admin: 11/02/18 10:15 Dose: 0.5 mg Nystatin (Mycostatin) 5 ml PO QID PRN PRN Reason: thrush Ondansetron HCl (Zofran) 4 mg IV Q6H PRN PRN Reason: Nausea/Vomiting Last Admin: 10/27/18 16:13 Dose: 4 mg Roflumilast 500 Mg 500 each PO DAILY [facility] Last Admin: 11/02/18 08:38 Dose: Not Given Polyethylene Glycol (Miralax) 17 gm PO DAILY PRN PRN Reason: Constipation Potassium Chloride (Klor-Con M20) 40 meq PO BID [facility] Last Admin: 11/02/18 11:05 Dose: 40 meq Quetiapine Fumarate (Seroquel) 50 mg PO BEDTIME [facility] Last Admin: 11/01/18 20:33 Dose: 50 mg Senna/Docusate Sodium (Senna Plus) 1 tab PO BID PRN PRN Reason: Constipation Tiotropium [place] (Spiriva Handihaler) 18 mcg INH DAILY [facility] Last Admin: 11/01/18 09:19 Dose: Not Given Triamterene/HCTZ (Dyazide 25-37.5 Mg) 1 each PO DAILY [facility] Last Admin: 11/02/18 08:37 Dose: 1 each Discontinued Medications Albuterol (Proventil Neb Soln) 2.5 mg NEB ONETIME ONE Stop: 10/26/18 14:44 Last Admin: 10/26/18 15:15 Dose: 2.5 mg Albuterol (Proventil Neb Soln) 2.5 mg NEB ONETIME ONE Stop: 10/26/18 15:33 Last Admin: 10/26/18 16:06 Dose: 2.5 mg Albuterol (Proventil Hfa) 0 gm INH Q4H PRN PRN Reason: Shortness of Breath Albuterol/Ipratropium (Duoneb 3.0-0.5 Mg/3 Ml) 3 ml NEB ONETIME ONE Stop: 10/26/18 13:59 Last Admin: 10/26/18 14:32 Dose: 3 ml Albuterol/Ipratropium (Duoneb 3.0-0.5 Mg/3 Ml) 3 ml NEB Q4H PRN PRN Reason: Shortness Of Breath/wheezing Alprazolam (Xanax) 1 mg PO BID [place] Last Admin: 10/26/18 20:08 Dose: Not Given Aminophylline (Aminophylline) 250 mg IV ONETIME ONE Stop: 10/27/18 18:49 Last Admin: 10/27/18 21:40 Dose: Not Given Clonidine HCl (Catapres) 0.1 mg PO ONETIME ONE Stop: 10/26/18 16:40 Last Admin: 10/26/18 16:55 Dose: 0.1 mg Digoxin (Lanoxin) 250 mcg IVPUSH ONETIME ONE Stop: 10/27/18 23:46 Last Admin: 10/28/18 00:03 Dose: 250 mcg Digoxin (Lanoxin) 125 mcg IVPUSH ONETIME ONE Stop: 10/28/18 06:01 Last Admin: 10/28/18 06:00 Dose: 125 mcg Diltiazem HCl (Cardizem) 10 mg IVPUSH Q6H PRN PRN Reason: Tachycardia Last Admin: 10/26/18 20:22 Dose: 10 mg Diltiazem HCl (Cardizem) 10 mg IVPUSH Q4H PRN PRN Reason: Tachycardia Last Admin: 10/27/18 15:20 Dose: 10 mg Diltiazem HCl (Cardizem Cd) 180 mg PO ONETIME ONE Stop: 10/27/18 09:12 Last Admin: 10/27/18 09:38 Dose: 180 mg Glycopyrrolate (Seebri Neohaler) 0 mcg IH BID [place] Hydromorphone HCl (Dilaudid) 0.5 mg IVPUSH ONETIME ONE Stop: 10/26/18 14:45 Last Admin: 10/26/18 14:59 Dose: 0.5 mg Lactated Ringer's (Ringers, Lactated) 500 mls @ 999 mls/hr IV .BOLUS ONE Stop: 10/26/18 14:25 Last Admin: 10/26/18 14:12 Dose: 999 mls/hr Ceftriaxone Sodium 2 gm/ (Sodium Chloride) 100 mls @ 200 mls/hr IV NOW STA Stop: 10/26/18 15:12 Last Admin: 10/26/18 15:00 Dose: 200 mls/hr Lactated Ringer's (Ringers, Lactated) 1,000 mls @ 125 mls/hr IV ASDIRECTED [facility] Last Admin: 10/26/18 16:55 Dose: 125 mls/hr Magnesium Sulfate 2 gm/ Premix 50 mls @ 50 mls/hr IV ONETIME ONE Stop: 10/26/18 19:14 Last Admin: 10/26/18 18:27 Dose: 50 mls/hr Potassium Chloride 10 meq/ (Premix) 100 mls @ 100 mls/hr IV Q1H [facility] Stop: 10/26/18 23:29 Last Admin: 10/26/18 20:14 Dose: Not Given Levofloxacin/Dextrose 750 mg/ (Premix) 150 mls @ 100 mls/hr IV Q24H [facility] Last Admin: 10/26/18 20:15 Dose: Not Given Piperacillin Sod/Tazobactam (Sod 4.5 gm/ Sodium Chloride) 100 mls @ 25 mls/hr IV Q8H [facility] Last Admin: 10/31/18 04:37 Dose: 25 mls/hr Piperacillin Sod/Tazobactam (Sod 4.5 gm/ Sodium Chloride) 100 mls @ 200 mls/hr IV ONETIME ONE Stop: 10/26/18 20:29 Last Admin: 10/26/18 20:33 Dose: 200 mls/hr Magnesium Sulfate/Dextrose 1 (gm/ Premix) 100 mls @ 100 mls/hr IV ONETIME ONE Stop: 10/26/18 19:49 Last Admin: 10/26/18 20:01 Dose: Not Given Levofloxacin/Dextrose 750 mg/ (Premix) 150 mls @ 100 mls/hr IV Q24H [facility] Last Admin: 10/27/18 20:22 Dose: 100 mls/hr Aminophylline 250 mg/ Dextrose (/Water) 60 mls @ 6.84 mls/hr IV ONETIME ONE Stop: 10/27/18 06:46 Last Admin: 10/27/18 01:13 Dose: Not Given Aminophylline 250 mg/ Sodium (Chloride) 60 mls @ 6.84 mls/hr IV ONETIME ONE Stop: 10/27/18 08:01 Last Admin: 10/26/18 23:27 Dose: 0.5 mg/kg/hr, 6.84 mls/hr Aminophylline 250 mg/ Sodium (Chloride) 60 mls @ 180 mls/hr IV ONETIME ONE Stop: 10/27/18 19:19 Last Admin: 10/27/18 19:53 Dose: 180 mls/hr Sodium Chloride (Normal Saline) Confirm Administered Dose 100 mls @ as directed .ROUTE .STK-MED ONE Stop: 10/28/18 01:06 Last Admin: 10/28/18 01:15 Dose: Not Given Sodium Chloride (Normal Saline) 500 mls @ 999 mls/hr IV .BOLUS ONE Stop: 10/28/18 08:17 Last Admin: 10/28/18 08:40 Dose: 999 mls/hr Levofloxacin/Dextrose 750 mg/ (Premix) 150 mls @ 100 mls/hr IV Q48H [facility] Last Admin: 10/29/18 20:11 Dose: 100 mls/hr Ceftriaxone Sodium 2 gm/ (Sodium Chloride) 100 mls @ 200 mls/hr IV Q12H [facility] Last Admin: 10/30/18 15:34 Dose: Not Given Ipratropium [place] (Atrovent) 0.5 mg NEB BID [facility] Last Admin: 10/30/18 09:52 Dose: 0.5 mg Levalbuterol HCl (Xopenex) 1.25 mg NEB Q6H PRN PRN Reason: SOB/Dyspnea Last Admin: 10/30/18 03:42 Dose: 1.25 mg Levalbuterol HCl (Xopenex) 1.25 mg NEB BID [facility] Last Admin: 10/30/18 10:13 Dose: Not Given Levalbuterol HCl (Xopenex) 1.25 mg NEB QID [facility] Last Admin: 10/30/18 10:24 Dose: 1.25 mg Lorazepam (Ativan) 1 mg IVPUSH ONETIME ONE Stop: 10/26/18 13:57 Last Admin: 10/26/18 14:12 Dose: 1 mg Lorazepam (Ativan) 0.5 mg IVPUSH ONETIME ONE Stop: 10/26/18 16:40 Last Admin: 10/26/18 16:54 Dose: 0.5 mg Magnesium Sulfate (Pharmacy To Dose - Magnesium Replacement) 1 dose .XX ASDIRECTED [facility] Methylprednisolone Sodium Succinate (Solu-Medrol) 125 mg IVPUSH ONETIME ONE Stop: 10/26/18 14:45 Last Admin: 10/26/18 15:00 Dose: 125 mg Methylprednisolone Sodium Succinate (Solu-Medrol) 80 mg IVPUSH Q8H [facility] Last Admin: 10/30/18 05:01 Dose: 80 mg Methylprednisolone Sodium Succinate (Solu-Medrol) 125 mg IVPUSH Q8H [facility] Last Admin: 11/01/18 04:24 Dose: 125 mg Methylprednisolone Sodium Succinate (Solu-Medrol) 125 mg IVPUSH ONETIME ONE Stop: 11/01/18 17:01 Last Admin: 11/01/18 16:58 Dose: 125 mg Metoprolol Tartrate (Lopressor) 5 mg IVPUSH Q4H PRN PRN Reason: Tachycardia Last Admin: 10/26/18 19:11 Dose: 5 mg Metoprolol Tartrate (Lopressor) 25 mg PO BID [facility] Last Admin: 10/27/18 08:30 Dose: Not Given Potassium Chloride (Pharmacy To Dose - Potassium Replacement) 1 dose .XX ASDIRECTED [facility] Potassium Chloride (Klor-Con M20) 40 meq PO ONETIME ONE Stop: 10/28/18 09:01 Last Admin: 10/28/18 08:51 Dose: 40 meq Theophylline (Theophylline Anhydrous) 300 mg PO DAILY [facility] Last Admin: 10/27/18 08:32 Dose: 300 mg Theophylline (Theophylline Anhydrous) 300 mg PO BID [facility] Last Admin: 10/27/18 20:32 Dose: 300 mg - Exam Quality Assessment: Supplemental Oxygen, DVT Prophylaxis General: Alert, Oriented, Cooperative, No Acute Distress HEENT: Pupils Equal, Pupils Reactive, EOMI Neck: Trachea Midline, No JVD Lungs: Normal Respiratory Effort, Decreased Breath Sounds Cardiovascular: Regular Rate, Regular Rhythm GI/Abdominal Exam: Normal Bowel Sounds, Soft, Non-Tender, No Organomegaly, No Distention (Female) Exam: Deferred Back Exam: Normal Inspection Extremities: Normal Capillary Refill Skin: Warm Neurological: No New Focal Deficit Psy/Mental Status: Alert, Normal Affect, Normal Mood - Problem List & Annotations (1) COPD exacerbation SNOMED Code(s): 034491054 Code(s): J44.1 - CHRONIC OBSTRUCTIVE PULMONARY DISEASE W (ACUTE) EXACERBATION Status: Acute Current Visit: Yes (2) Pneumonia SNOMED Code(s): 253040339 Code(s): J18.9 - PNEUMONIA, UNSPECIFIED ORGANISM Status: Acute Current Visit: Yes (3) Acute febrile illness SNOMED Code(s): 547005067 Code(s): R50.9 - FEVER, UNSPECIFIED Status: Acute Current Visit: No (4) Depression with anxiety SNOMED Code(s): 83561666, 614144410 Code(s): F41.8 - OTHER SPECIFIED ANXIETY DISORDERS Status: Acute Current Visit: No (5) End stage COPD SNOMED Code(s): 679891947 Code(s): J44.9 - CHRONIC OBSTRUCTIVE PULMONARY DISEASE, UNSPECIFIED Status : Acute Current Visit: No (6) Pulmonary hypertension SNOMED Code(s): 04250528 Code(s): I27.2 - OTHER SECONDARY PULMONARY HYPERTENSION * DO NOT USE * Status: Acute Current Visit: No - Problem List Review Problem List Initiated/Reviewed/Updated: Yes - My Orders Last 24 Hours: My Active Orders 11/02/18 06:00 methylPREDNISolone Sod Succ [Solu-MEDROL] 80 mg IVPUSH Q12H 11/02/18 10:45 Potassium Chloride [Klor-Con M20] 40 meq PO BID 11/02/18 13:27 Consult to Occupational Therapy [OT Evaluation and Treatment] [CONS] Routine Consult to Physical Therapy [PT Evaluation and Treatment] [CONS] Routine 11/03/18 05:00 BMP [BASIC METABOLIC PANEL,BMP] [CHEM] DAILY CBC WITH AUTO DIFF [HEME] DAILY CRP [C-REACTIVE PROTEIN] [CHEM] DAILY MAGNESIUM [CHEM] DAILY 11/03/18 07:00 methylPREDNISolone Sod Succ [Solu-MEDROL] 40 mg IVPUSH Q12H 11/04/18 05:00 BMP [BASIC METABOLIC PANEL,BMP] [CHEM] DAILY CBC WITH AUTO DIFF [HEME] DAILY CRP [C-REACTIVE PROTEIN] [CHEM] DAILY MAGNESIUM [CHEM] DAILY 11/05/18 05:00 BMP [BASIC METABOLIC PANEL,BMP] [CHEM] DAILY CBC WITH AUTO DIFF [HEME] DAILY CRP [C-REACTIVE PROTEIN] [CHEM] DAILY MAGNESIUM [CHEM] DAILY - Plan Plan:: Assessment/Plan: Acute: CAP 2/2 Strep Pneumoniae, meningococcus - CXR shows increased density within the lingula - Failed outpatient treatment - Just completed oral Levaquin and Taper dose of Prednisone - Risk Factors: End Stage COPD and Chronic Respiratory Failure - She is high risk for pseudomonas due to recent use of steroids - Continue IV Zosyn and Levaquin for pharmacy to renally dose; Gm +/- coverage - Supplemental O2, Bronchodilators, IV Mg, IS q2 awake and Cough Suppressant/ Expectorant - Mycoplasma, RVP and Blood Cx- all negative - Sputum Cx pos for Probable Strep Pneumonia End Stage COPD Exacerbation - IV Steroids, Scheduled and PRN Bronchodilators, O2 - IS Q2 awake - Decongestant/Expectorant - Sputum Cx/Sx-Strep Pneumonia - Nocturnal BIPAP, NC during the day Respiratory Failure-->>greatly improved; DC home expected 11/04/18. - Acute on Chronic Hypercapneic and Hypoxic improved ABGs. - 2/2 Above - ABG: pH of 7.32, PO2 59.1, pCO2 of 81.1, HCO3 of 40.1, and O2 sat at 87% on 4L NC; repeat ABG better this AM - Changed BIPAP setting, 12/6 o 0.4 - Treat underlying cause above -Has mainatined stable blood gas on NC cf BIPAP, will monitor; results were reviewed with patient and sons Tachycardic and Hypertension-->resolved - Side effects of Medications - Continue Levalbuterol scheduled and as needed and Ipratropium - Discontinue Digoxin and Theophylline (arrhythmogenic) - Continue Cardizem drip and will resume Metoprolol since her ABG is much better - PRN BIPAP hopefully to help improve pressure as well End of Life Care - She is not agreeable to Hospice/Palliative Care remains not receptive - Has had multiple discussions in the past -Family meeting held, will consider change in code status but is currently full code. Chronic: Impaired Vision HTN OA/DJD Osteoporosis Back Pain Migraines Chronic Pain Depression Anxiety Plan: Routine AM Labs PRN Medications Continue Rocephin Repeat labs this afternoon Continue oral theophylline for bronchospasm and stimulant RT to assess and treat Discontinue /PT/OT as she is not appropriate at this point May benefit with cardiopulmonary rehab but not home health /CM for d/c planning Additional orders as above Code status: 1 Prognosis is guarded; will remain a full code. LOS>96 hours with slow response to PNA; hx of end stage lug disease.
--- NOTE | 2018-11-02 13:52 | PCM.PN ---
- General Info Date of Service: 11/02/18 Subjective Update: Family meeting today with patient's mother and three children, they have all agreed on comfort care. Anticipate that the patient will be discharged on 11/04/18. Functional Status: Reports: Pain Controlled, Tolerating Diet, Ambulating, Urinating - Review of Systems General: Reports: Weakness, Fatigue HEENT: Reports: No Symptoms Pulmonary: Reports: Shortness of Breath Cardiovascular: Reports: No Symptoms Gastrointestinal: Reports: No Symptoms Genitourinary: Reports: No Symptoms Musculoskeletal: Reports: No Symptoms Skin: Reports: No Symptoms Neurological: Reports: No Symptoms Psychiatric: Reports: No Symptoms - Patient Data Vitals - Most Recent: Last Vital Signs Temp 37.1 C 11/02/18 12:00 Pulse 88 11/02/18 08:37 Resp 20 11/02/18 12:00 BP 139/76 11/02/18 12:00 Pulse Ox 94 L 11/02/18 12:00 Weight - Most Recent: 66.361 kg I&O - Last 24 Hours: Intake & Output 11/01/18 11/02/18 11/02/18 22:59 06:59 14:59 Intake Total 1316 1298 240 Output Total 700 250 Balance 1316 598 -10 Lab Results Last 24 Hours: Laboratory Results - last 24 hr 11/02/18 11/02/18 Range/Units 05:41 05:41 WBC 7.82 (3.98-10.04) K/mm3 RBC 3.90 L (3.98-5.22) M/mm3 Hgb 10.7 L (11.2-15.7) gm/L Hct 34.8 (34.1-44.9) % MCV 89.2 (79.4-94.8) fl MCH 27.4 (25.6-32.2) pg MCHC 30.7 L (32.2-35.5) g/dl RDW Std Deviation 43.5 (36.4-46.3) fL Plt Count 350 (182-369) K/mm3 MPV 9.2 L (9.4-12.3) fl Neut % (Auto) 90.5 H (34.0-71.1) % Lymph % (Auto) 4.3 L (19.3-51.7) % [place] % (Auto) 4.6 L (4.7-12.5) % Eos % (Auto) 0 L (0.7-5.8) Baso % (Auto) 0.0 L (0.1-1.2) % Neut # (Auto) 7.07 H (1.56-6.13) K/mm3 Lymph # (Auto) 0.34 L (1.18-3.74) K/mm3 [place] # (Auto) 0.36 (0.24-0.36) K/mm3 Eos # (Auto) 0.00 L (0.04-0.36) K/mm3 Baso # (Auto) 0.00 L (0.01-0.08) K/mm3 Manual Slide Review Abnormal smear Sodium 141 (136-145) mEq/L Potassium 3.3 L (3.5-5.1) mEq/L Chloride 101 (98-107) mEq/L Carbon Dioxide 35 H (21-32) mEq/L Anion Gap 8.3 (5-15) BUN 30 H (7-18) mg/dL Creatinine 0.9 (0.55-1.02) mg/dL Est Cr Clr Drug Dosing 62.42 mL/min Estimated GFR (MDRD) > 60 (>60) mL/min BUN/Creatinine Ratio 33.3 H (14-18) Glucose 180 H (74-106) mg/dL Calcium 8.8 (8.5-10.1) mg/dL Magnesium 1.8 (1.8-2.4) mg/dl C-Reactive Protein < 0.2 (<1.0) mg/dL John Results Last 24 Hours: Microbiology 10/26/18 14:55 Aerobic Blood Culture - Preliminary Blood - Venous - Lab Draw NO GROWTH AFTER 6 DAYS Anaerobic Blood Culture - Preliminary NO GROWTH AFTER 6 DAYS 10/26/18 14:45 Aerobic Blood Culture - Preliminary Blood - Venous NO GROWTH AFTER 6 DAYS Anaerobic Blood Culture - Preliminary NO GROWTH AFTER 6 DAYS Med Orders - Current: Current Medications Acetaminophen (Tylenol) 650 mg PO Q4H PRN PRN Reason: Pain (Mild 1-3)/fever Hydrocodone Bitart/Acetaminophen ([place] 325-10 Mg) 1 tab PO Q6H PRN PRN Reason: PAIN Last Admin: 11/02/18 08:42 Dose: 1 tab Alprazolam (Xanax) 1 mg PO BID@0800,1999 [facility], [facility] Last Admin: 11/02/18 08:37 Dose: 1 mg Bisacodyl (Dulcolax) 5 mg PO DAILY PRN PRN Reason: Constipation Last Admin: 10/31/18 08:41 Dose: 5 mg Clonidine HCl (Catapres-Tts 3) 0.3 mg TRDERM Q7D [facility], [facility] Last Admin: 10/26/18 20:29 Dose: 0.3 mg Diltiazem HCl (Cardizem Cd) 180 mg PO DAILY [facility] Last Admin: 11/02/18 08:37 Dose: 180 mg Docusate Sodium (Colace) 100 mg PO BID PRN PRN Reason: Constipation Enoxaparin Sodium (Lovenox) 40 mg SUBCUT DAILY [facility], [facility] Last Admin: 11/02/18 08:38 Dose: 40 mg Guaifenesin (Mucinex) 1,200 mg PO BID [facility] Last Admin: 11/02/18 08:37 Dose: 1,200 mg Hydralazine HCl (Apresoline) 20 mg IVPUSH Q4H PRN PRN Reason: Hypertension Last Admin: 10/31/18 17:13 Dose: 20 mg Diltiazem HCl 125 mg/ Sodium (Chloride) 125 mls @ 5 mls/hr IV TITRATE [facility], [facility]; Protocol Last Titration: 10/28/18 10:06 Dose: Infused Sodium Chloride (Normal Saline) 1,000 mls @ 50 mls/hr IV ASDIRECTED [facility], [facility] Last Admin: 11/01/18 21:23 Dose: 50 mls/hr Ceftriaxone Sodium 2 gm/ (Sodium Chloride) 100 mls @ 200 mls/hr IV Q12H [facility] Last Admin: 11/02/18 04:57 Dose: 200 mls/hr Ipratropium [place] (Atrovent) 0.5 mg NEB Q8HRRT [facility], [facility] Last Admin: 11/02/18 05:08 Dose: 0.5 mg Levalbuterol HCl (Xopenex) 1.25 mg NEB QIDRT [facility] Last Admin: 11/02/18 09:29 Dose: 1.25 mg Magnesium Oxide (Magnesium Oxide) 400 mg PO DAILY [facility] Last Admin: 11/02/18 08:37 Dose: 400 mg Methylprednisolone Sodium Succinate (Solu-Medrol) 80 mg IVPUSH Q12H [facility] Stop: 11/02/18 20:00 Last Admin: 11/02/18 04:59 Dose: 80 mg Methylprednisolone Sodium Succinate (Solu-Medrol) 40 mg IVPUSH Q12H [facility] Metoprolol Tartrate (Lopressor) 50 mg PO Q12H [facility] Last Admin: 11/02/18 08:37 Dose: 50 mg Mirtazapine (Remeron) 30 mg PO BEDTIME [facility] Last Admin: 11/01/18 20:34 Dose: 30 mg Miscellaneous Information (Remove Patch) 1 ea TRDERM Q7D [facility] Mometasone Furoate/Formoterol Fumar (Dulera 100-5 Mcg) 0 puff IH BID [facility] Last Admin: 11/01/18 20:30 Dose: Not Given Morphine Sulfate (Morphine) 0.5 mg IVPUSH Q4H PRN PRN Reason: Dyspnea Last Admin: 11/02/18 10:15 Dose: 0.5 mg Nystatin (Mycostatin) 5 ml PO QID PRN PRN Reason: thrush Ondansetron HCl (Zofran) 4 mg IV Q6H PRN PRN Reason: Nausea/Vomiting Last Admin: 10/27/18 16:13 Dose: 4 mg Roflumilast 500 Mg 500 each PO DAILY [facility] Last Admin: 11/02/18 08:38 Dose: Not Given Polyethylene Glycol (Miralax) 17 gm PO DAILY PRN PRN Reason: Constipation Potassium Chloride (Klor-Con M20) 40 meq PO BID [facility] Last Admin: 11/02/18 11:05 Dose: 40 meq Quetiapine Fumarate (Seroquel) 50 mg PO BEDTIME [facility] Last Admin: 11/01/18 20:33 Dose: 50 mg Senna/Docusate Sodium (Senna Plus) 1 tab PO BID PRN PRN Reason: Constipation Tiotropium [place] (Spiriva Handihaler) 18 mcg INH DAILY [facility] Last Admin: 11/01/18 09:19 Dose: Not Given Triamterene/HCTZ (Dyazide 25-37.5 Mg) 1 each PO DAILY [facility] Last Admin: 11/02/18 08:37 Dose: 1 each Discontinued Medications Albuterol (Proventil Neb Soln) 2.5 mg NEB ONETIME ONE Stop: 10/26/18 14:44 Last Admin: 10/26/18 15:15 Dose: 2.5 mg Albuterol (Proventil Neb Soln) 2.5 mg NEB ONETIME ONE Stop: 10/26/18 15:33 Last Admin: 10/26/18 16:06 Dose: 2.5 mg Albuterol (Proventil Hfa) 0 gm INH Q4H PRN PRN Reason: Shortness of Breath Albuterol/Ipratropium (Duoneb 3.0-0.5 Mg/3 Ml) 3 ml NEB ONETIME ONE Stop: 10/26/18 13:59 Last Admin: 10/26/18 14:32 Dose: 3 ml Albuterol/Ipratropium (Duoneb 3.0-0.5 Mg/3 Ml) 3 ml NEB Q4H PRN PRN Reason: Shortness Of Breath/wheezing Alprazolam (Xanax) 1 mg PO BID [facility] Last Admin: 10/26/18 20:08 Dose: Not Given Aminophylline (Aminophylline) 250 mg IV ONETIME ONE Stop: 10/27/18 18:49 Last Admin: 10/27/18 21:40 Dose: Not Given Clonidine HCl (Catapres) 0.1 mg PO ONETIME ONE Stop: 10/26/18 16:40 Last Admin: 10/26/18 16:55 Dose: 0.1 mg Digoxin (Lanoxin) 250 mcg IVPUSH ONETIME ONE Stop: 10/27/18 23:46 Last Admin: 10/28/18 00:03 Dose: 250 mcg Digoxin (Lanoxin) 125 mcg IVPUSH ONETIME ONE Stop: 10/28/18 06:01 Last Admin: 10/28/18 06:00 Dose: 125 mcg Diltiazem HCl (Cardizem) 10 mg IVPUSH Q6H PRN PRN Reason: Tachycardia Last Admin: 10/26/18 20:22 Dose: 10 mg Diltiazem HCl (Cardizem) 10 mg IVPUSH Q4H PRN PRN Reason: Tachycardia Last Admin: 10/27/18 15:20 Dose: 10 mg Diltiazem HCl (Cardizem Cd) 180 mg PO ONETIME ONE Stop: 10/27/18 09:12 Last Admin: 10/27/18 09:38 Dose: 180 mg Glycopyrrolate (Seebri Neohaler) 0 mcg IH BID [facility] Hydromorphone HCl (Dilaudid) 0.5 mg IVPUSH ONETIME ONE Stop: 10/26/18 14:45 Last Admin: 10/26/18 14:59 Dose: 0.5 mg Lactated Ringer's (Ringers, Lactated) 500 mls @ 999 mls/hr IV .BOLUS ONE Stop: 10/26/18 14:25 Last Admin: 10/26/18 14:12 Dose: 999 mls/hr Ceftriaxone Sodium 2 gm/ (Sodium Chloride) 100 mls @ 200 mls/hr IV NOW STA Stop: 10/26/18 15:12 Last Admin: 10/26/18 15:00 Dose: 200 mls/hr Lactated Ringer's (Ringers, Lactated) 1,000 mls @ 125 mls/hr IV ASDIRECTED [facility], [facility] Last Admin: 10/26/18 16:55 Dose: 125 mls/hr Magnesium Sulfate 2 gm/ Premix 50 mls @ 50 mls/hr IV ONETIME ONE Stop: 10/26/18 19:14 Last Admin: 10/26/18 18:27 Dose: 50 mls/hr Potassium Chloride 10 meq/ (Premix) 100 mls @ 100 mls/hr IV Q1H [facility] Stop: 10/26/18 23:29 Last Admin: 10/26/18 20:14 Dose: Not Given Levofloxacin/Dextrose 750 mg/ (Premix) 150 mls @ 100 mls/hr IV Q24H [facility] Last Admin: 10/26/18 20:15 Dose: Not Given Piperacillin Sod/Tazobactam (Sod 4.5 gm/ Sodium Chloride) 100 mls @ 25 mls/hr IV Q8H [facility] Last Admin: 10/31/18 04:37 Dose: 25 mls/hr Piperacillin Sod/Tazobactam (Sod 4.5 gm/ Sodium Chloride) 100 mls @ 200 mls/hr IV ONETIME ONE Stop: 10/26/18 20:29 Last Admin: 10/26/18 20:33 Dose: 200 mls/hr Magnesium Sulfate/Dextrose 1 (gm/ Premix) 100 mls @ 100 mls/hr IV ONETIME ONE Stop: 10/26/18 19:49 Last Admin: 10/26/18 20:01 Dose: Not Given Levofloxacin/Dextrose 750 mg/ (Premix) 150 mls @ 100 mls/hr IV Q24H [facility] Last Admin: 10/27/18 20:22 Dose: 100 mls/hr Aminophylline 250 mg/ Dextrose (/Water) 60 mls @ 6.84 mls/hr IV ONETIME ONE Stop: 10/27/18 06:46 Last Admin: 10/27/18 01:13 Dose: Not Given Aminophylline 250 mg/ Sodium (Chloride) 60 mls @ 6.84 mls/hr IV ONETIME ONE Stop: 10/27/18 08:01 Last Admin: 10/26/18 23:27 Dose: 0.5 mg/kg/hr, 6.84 mls/hr Aminophylline 250 mg/ Sodium (Chloride) 60 mls @ 180 mls/hr IV ONETIME ONE Stop: 10/27/18 19:19 Last Admin: 10/27/18 19:53 Dose: 180 mls/hr Sodium Chloride (Normal Saline) Confirm Administered Dose 100 mls @ as directed .ROUTE .STK-MED ONE Stop: 10/28/18 01:06 Last Admin: 10/28/18 01:15 Dose: Not Given Sodium Chloride (Normal Saline) 500 mls @ 999 mls/hr IV .BOLUS ONE Stop: 10/28/18 08:17 Last Admin: 10/28/18 08:40 Dose: 999 mls/hr Levofloxacin/Dextrose 750 mg/ (Premix) 150 mls @ 100 mls/hr IV Q48H [facility] Last Admin: 10/29/18 20:11 Dose: 100 mls/hr Ceftriaxone Sodium 2 gm/ (Sodium Chloride) 100 mls @ 200 mls/hr IV Q12H [facility] Last Admin: 10/30/18 15:34 Dose: Not Given Ipratropium [place] (Atrovent) 0.5 mg NEB BID [facility] Last Admin: 10/30/18 09:52 Dose: 0.5 mg Levalbuterol HCl (Xopenex) 1.25 mg NEB Q6H PRN PRN Reason: SOB/Dyspnea Last Admin: 10/30/18 03:42 Dose: 1.25 mg Levalbuterol HCl (Xopenex) 1.25 mg NEB BID [facility] Last Admin: 10/30/18 10:13 Dose: Not Given Levalbuterol HCl (Xopenex) 1.25 mg NEB QID [facility] Last Admin: 10/30/18 10:24 Dose: 1.25 mg Lorazepam (Ativan) 1 mg IVPUSH ONETIME ONE Stop: 10/26/18 13:57 Last Admin: 10/26/18 14:12 Dose: 1 mg Lorazepam (Ativan) 0.5 mg IVPUSH ONETIME ONE Stop: 10/26/18 16:40 Last Admin: 10/26/18 16:54 Dose: 0.5 mg Magnesium Sulfate (Pharmacy To Dose - Magnesium Replacement) 1 dose .XX ASDIRECTED [facility], [facility] Methylprednisolone Sodium Succinate (Solu-Medrol) 125 mg IVPUSH ONETIME ONE Stop: 10/26/18 14:45 Last Admin: 10/26/18 15:00 Dose: 125 mg Methylprednisolone Sodium Succinate (Solu-Medrol) 80 mg IVPUSH Q8H [facility] Last Admin: 10/30/18 05:01 Dose: 80 mg Methylprednisolone Sodium Succinate (Solu-Medrol) 125 mg IVPUSH Q8H [facility] Last Admin: 11/01/18 04:24 Dose: 125 mg Methylprednisolone Sodium Succinate (Solu-Medrol) 125 mg IVPUSH ONETIME ONE Stop: 11/01/18 17:01 Last Admin: 11/01/18 16:58 Dose: 125 mg Metoprolol Tartrate (Lopressor) 5 mg IVPUSH Q4H PRN PRN Reason: Tachycardia Last Admin: 10/26/18 19:11 Dose: 5 mg Metoprolol Tartrate (Lopressor) 25 mg PO BID [facility] Last Admin: 10/27/18 08:30 Dose: Not Given Potassium Chloride (Pharmacy To Dose - Potassium Replacement) 1 dose .XX ASDIRECTED [facility], [facility] Potassium Chloride (Klor-Con M20) 40 meq PO ONETIME ONE Stop: 10/28/18 09:01 Last Admin: 10/28/18 08:51 Dose: 40 meq Theophylline (Theophylline Anhydrous) 300 mg PO DAILY [facility] Last Admin: 10/27/18 08:32 Dose: 300 mg Theophylline (Theophylline Anhydrous) 300 mg PO BID [facility] Last Admin: 10/27/18 20:32 Dose: 300 mg - Exam Quality Assessment: Supplemental Oxygen, DVT Prophylaxis General: Alert, Oriented, Cooperative, No Acute Distress HEENT: Pupils Equal, Pupils Reactive, EOMI Neck: Trachea Midline, No JVD Lungs: Normal Respiratory Effort, Decreased Breath Sounds Cardiovascular: Regular Rate, Regular Rhythm GI/Abdominal Exam: Normal Bowel Sounds, Soft, Non-Tender, No Organomegaly, No Distention (Female) Exam: Deferred Back Exam: Normal Inspection Extremities: Normal Inspection, Non-Tender, Normal Capillary Refill Skin: Warm Neurological: No New Focal Deficit Psy/Mental Status: Alert, Normal Affect, Normal Mood - Problem List & Annotations (1) COPD exacerbation SNOMED Code(s): 792801703 Code(s): J44.1 - CHRONIC OBSTRUCTIVE PULMONARY DISEASE W (ACUTE) EXACERBATION Status: Acute Current Visit: Yes (2) Pneumonia SNOMED Code(s): 717644988 Code(s): J18.9 - PNEUMONIA, UNSPECIFIED ORGANISM Status: Acute Current Visit: Yes (3) Acute febrile illness SNOMED Code(s): 901386644 Code(s): R50.9 - FEVER, UNSPECIFIED Status: Acute Current Visit: No (4) Depression with anxiety SNOMED Code(s): 99925199, 698896847 Code(s): F41.8 - OTHER SPECIFIED ANXIETY DISORDERS Status: Acute Current Visit: No (5) End stage COPD SNOMED Code(s): 139111268 Code(s): J44.9 - CHRONIC OBSTRUCTIVE PULMONARY DISEASE, UNSPECIFIED Status : Acute Current Visit: No (6) Pulmonary hypertension SNOMED Code(s): 80641001 Code(s): I27.2 - OTHER SECONDARY PULMONARY HYPERTENSION * DO NOT USE * Status: Acute Current Visit: No - Problem List Review Problem List Initiated/Reviewed/Updated: Yes - My Orders Last 24 Hours: My Active Orders 11/02/18 06:00 methylPREDNISolone Sod Succ [Solu-MEDROL] 80 mg IVPUSH Q12H 11/02/18 10:45 Potassium Chloride [Klor-Con M20] 40 meq PO BID 11/02/18 13:27 Consult to Occupational Therapy [OT Evaluation and Treatment] [CONS] Routine Consult to Physical Therapy [PT Evaluation and Treatment] [CONS] Routine 11/03/18 05:00 BMP [BASIC METABOLIC PANEL,BMP] [CHEM] DAILY CBC WITH AUTO DIFF [HEME] DAILY CRP [C-REACTIVE PROTEIN] [CHEM] DAILY MAGNESIUM [CHEM] DAILY 11/03/18 07:00 methylPREDNISolone Sod Succ [Solu-MEDROL] 40 mg IVPUSH Q12H 11/04/18 05:00 BMP [BASIC METABOLIC PANEL,BMP] [CHEM] DAILY CBC WITH AUTO DIFF [HEME] DAILY CRP [C-REACTIVE PROTEIN] [CHEM] DAILY MAGNESIUM [CHEM] DAILY 11/05/18 05:00 BMP [BASIC METABOLIC PANEL,BMP] [CHEM] DAILY CBC WITH AUTO DIFF [HEME] DAILY CRP [C-REACTIVE PROTEIN] [CHEM] DAILY MAGNESIUM [CHEM] DAILY - Plan Plan:: Assessment/Plan: Acute: CAP 2/2 Strep Pneumoniae, meningococcus - CXR shows increased density within the lingula - Failed outpatient treatment - Just completed oral Levaquin and Taper dose of Prednisone - Risk Factors: End Stage COPD and Chronic Respiratory Failure - She is high risk for pseudomonas due to recent use of steroids - Continue IV Zosyn and Levaquin for pharmacy to renally dose; Gm +/- coverage - Supplemental O2, Bronchodilators, IV Mg, IS q2 awake and Cough Suppressant/ Expectorant - Mycoplasma, RVP and Blood Cx- all negative - Sputum Cx pos for Probable Strep Pneumonia End Stage COPD Exacerbation - IV Steroids, Scheduled and PRN Bronchodilators, O2 - IS Q2 awake - Decongestant/Expectorant - Sputum Cx/Sx-Strep Pneumonia - Nocturnal BIPAP, NC during the day Respiratory Failure-->>greatly improved; DC home expected 11/04/18. - Acute on Chronic Hypercapneic and Hypoxic improved ABGs. - 2/2 Above - ABG: pH of 7.32, PO2 59.1, pCO2 of 81.1, HCO3 of 40.1, and O2 sat at 87% on 4L NC; repeat ABG better this AM - Changed BIPAP setting, 09/15 o 0.4 - Treat underlying cause above -Has mainatined stable blood gas on NC cf BIPAP, will monitor; results were reviewed with patient and sons Tachycardic and Hypertension-->resolved - Side effects of Medications - Continue Levalbuterol scheduled and as needed and Ipratropium - Discontinue Digoxin and Theophylline (arrhythmogenic) - Continue Cardizem drip and will resume Metoprolol since her ABG is much better - PRN BIPAP hopefully to help improve pressure as well End of Life Care - She is not agreeable to Hospice/Palliative Care remains not receptive - Has had multiple discussions in the past -Family meeting held, will consider change in code status but is currently full code. Chronic: Impaired Vision HTN OA/DJD Osteoporosis Back Pain Migraines Chronic Pain Depression Anxiety Plan: Routine AM Labs PRN Medications Continue Rocephin Repeat labs this afternoon Continue oral theophylline for bronchospasm and stimulant RT to assess and treat Discontinue /PT/OT as she is not appropriate at this point May benefit with cardiopulmonary rehab but not home health /CM for d/c planning Additional orders as above Code status: 1 Prognosis is guarded; will remain a full code. LOS>96 hours with slow response to PNA; hx of end stage lug disease. Code status changed today after family meeting, DNR/DNI, comfort care.
[2018-11-02] MEDS: Formoterol/Mometasone 100-5 MCG 8.8 GM Inhaler IH SCH ×2 (15:01→21:36)
[2018-11-02] MEDS: Tiotropium Inhaler 18 MCG Inhalation Powder Cap Kit of 5 INH SCH (15:01)
[2018-11-02] MEDS: Sodium Chloride 0.9% 1,000 ML IV SCH (17:05)
[2018-11-02] MEDS ORDERED: REMOVE CLONIDINE TRDERM SCH (20:00)
[2018-11-02] MEDS: cloNIDine 0.3 MG/Day Transdermal Patch TRDERM SCH (21:45)
[2018-11-02] MEDS: QUEtiapine 25 MG Tab PO SCH (21:48)
[2018-11-02] MEDS: Mirtazapine 30 MG Tab PO SCH (21:48)
[2018-11-03] MEDS: Morphine 2 MG/ML Syringe IVPUSH PRN ×4 (04:57→17:28)
[2018-11-03] MEDS: cefTRIAXone 2 GM in Sodium Chloride 0.9% 100 ML IV SCH ×2 (04:57→17:07)
[2018-11-03] MEDS: Levalbuterol HCl 1.25 MG/0.5 ML Neb NEB SCH ×4 (05:13→20:55)
[2018-11-03] MEDS: Ipratropium 0.02% 0.5 MG/2.5 ML Neb Soln NEB SCH ×3 (05:16→20:55)
[2018-11-03] MEDS: methylPREDNISolone Sodium Succinate 40 MG/1 ML SDV IVPUSH SCH ×2 (06:50→18:26)
[2018-11-03] MEDS: Acetaminophen/HYDROcodone 325-10 MG Tab PO PRN ×2 (07:28→20:31)
[2018-11-03] MEDS: ALPRAZolam 1 MG Tab PO SCH ×2 (07:31→20:32)
[2018-11-03] MEDS: Enoxaparin 40 MG/0.4 ML Syringe SUBCUT SCH (08:54)
[2018-11-03] MEDS: guaiFENesin 600 MG Tab.ER PO SCH ×2 (08:55→20:30)
[2018-11-03] MEDS: Potassium Chloride 20 MEQ Tab.ER PO SCH (08:55)
[2018-11-03] MEDS: Hydrochlorothiazide/Triamterene 25-37.5 MG Cap PO SCH (08:55)
[2018-11-03] MEDS: Magnesium Oxide 400 MG Tab PO SCH (08:55)
[2018-11-03] MEDS: Metoprolol Tartrate 50 MG Tab PO SCH ×2 (08:55→20:31)
[2018-11-03] MEDS: Diltiazem 180 MG Cap.CD PO SCH (08:55)
[2018-11-03] MEDS: ROFLUMILAST 500 MG PO SCH (08:56)
[2018-11-03] MEDS: Tiotropium Inhaler 18 MCG Inhalation Powder Cap Kit of 5 INH SCH (09:32)
[2018-11-03] MEDS: Formoterol/Mometasone 100-5 MCG 8.8 GM Inhaler IH SCH (09:32)
[2018-11-03] MEDS ORDERED: Magnesium Sulfate/Water 2 GM in Premix Bag 1 BAG IV ONE (10:12)
[2018-11-03] MEDS: Clotrimazole 10 MG Troche PO SCH ×3 (13:28→22:10)
--- NOTE | 2018-11-03 13:46 | PCM.PN ---
- General Info Date of Service: 11/03/18 Subjective Update: Patient is actively participating in PT/OT with good results. Has been maintaining O2 sat >96% on 4 l/m. Family meeting yesterday resulted in a unanimous decision to change code status to DNR/DNI, comfort care. Functional Status: Reports: Pain Controlled, Tolerating Diet, Ambulating, Urinating - Review of Systems General: Reports: Weakness HEENT: Reports: No Symptoms Pulmonary: Reports: Shortness of Breath (w/ activity, doing well.) Cardiovascular: Reports: No Symptoms Gastrointestinal: Reports: No Symptoms Genitourinary: Reports: No Symptoms Musculoskeletal: Reports: No Symptoms Skin: Reports: No Symptoms Neurological: Reports: No Symptoms Psychiatric: Reports: No Symptoms - Patient Data Vitals - Most Recent: Last Vital Signs Temp 37.0 C 11/03/18 09:00 Pulse 76 11/03/18 09:00 Resp 19 11/03/18 09:00 BP 139/74 11/03/18 09:00 Pulse Ox 95 11/03/18 09:33 Weight - Most Recent: 68.583 kg I&O - Last 24 Hours: Intake & Output 11/02/18 11/03/18 11/03/18 22:59 06:59 14:59 Intake Total 1190 1216 240 Output Total 500 300 Balance 1190 716 -60 Lab Results Last 24 Hours: Laboratory Results - last 24 hr 11/03/18 11/03/18 Range/Units 06:20 06:20 WBC 9.38 (3.98-10.04) K/mm3 RBC 4.13 (3.98-5.22) M/mm3 Hgb 11.3 (11.2-15.7) gm/L Hct 37.2 (34.1-44.9) % MCV 90.1 (79.4-94.8) fl MCH 27.4 (25.6-32.2) pg MCHC 30.4 L (32.2-35.5) g/dl RDW Std Deviation 43.3 (36.4-46.3) fL Plt Count 345 (182-369) K/mm3 MPV 9.2 L (9.4-12.3) fl Neut % (Auto) 89.6 H (34.0-71.1) % Lymph % (Auto) 2.7 L (19.3-51.7) % [place] % (Auto) 6.3 (4.7-12.5) % Eos % (Auto) 0 L (0.7-5.8) Baso % (Auto) 0.1 (0.1-1.2) % Neut # (Auto) 8.41 H (1.56-6.13) K/mm3 Lymph # (Auto) 0.25 L (1.18-3.74) K/mm3 [place] # (Auto) 0.59 H (0.24-0.36) K/mm3 Eos # (Auto) 0.00 L (0.04-0.36) K/mm3 Baso # (Auto) 0.01 (0.01-0.08) K/mm3 Manual Slide Review Normal smear Sodium 140 (136-145) mEq/L Potassium 4.3 (3.5-5.1) mEq/L Chloride 102 (98-107) mEq/L Carbon Dioxide 36 H (21-32) mEq/L Anion Gap 6.3 (5-15) BUN 23 H (7-18) mg/dL Creatinine 0.8 (0.55-1.02) mg/dL Est Cr Clr Drug Dosing 70.23 mL/min Estimated GFR (MDRD) > 60 (>60) mL/min BUN/Creatinine Ratio 28.8 H (14-18) Glucose 220 H (74-106) mg/dL Calcium 8.7 (8.5-10.1) mg/dL Magnesium 1.6 L (1.8-2.4) mg/dl C-Reactive Protein < 0.2 (<1.0) mg/dL John Results Last 24 Hours: Microbiology 10/26/18 14:55 Aerobic Blood Culture - Final Blood - Venous - Lab Draw NO GROWTH AFTER 7 DAYS Anaerobic Blood Culture - Final NO GROWTH AFTER 7 DAYS 10/26/18 14:45 Aerobic Blood Culture - Final Blood - Venous NO GROWTH AFTER 7 DAYS Anaerobic Blood Culture - Final NO GROWTH AFTER 7 DAYS Med Orders - Current: Current Medications Acetaminophen (Tylenol) 650 mg PO Q4H PRN PRN Reason: Pain (Mild 1-3)/fever Hydrocodone Bitart/Acetaminophen ([place] 325-10 Mg) 1 tab PO Q6H PRN PRN Reason: PAIN Last Admin: 11/03/18 07:28 Dose: 1 tab Alprazolam (Xanax) 1 mg PO BID@0800,2000 [facility] Last Admin: 11/03/18 07:31 Dose: 1 mg Bisacodyl (Dulcolax) 5 mg PO DAILY PRN PRN Reason: Constipation Last Admin: 10/31/18 08:41 Dose: 5 mg Clonidine HCl (Catapres-Tts 3) 0.3 mg TRDERM Q7D [facility] Last Admin: 11/02/18 21:45 Dose: Not Given Clotrimazole (Mycelex) 10 mg PO 5XDAY [facility] Last Admin: 11/03/18 13:28 Dose: 10 mg Diltiazem HCl (Cardizem Cd) 180 mg PO DAILY [facility] Last Admin: 11/03/18 08:55 Dose: 180 mg Docusate Sodium (Colace) 100 mg PO BID PRN PRN Reason: Constipation Enoxaparin Sodium (Lovenox) 40 mg SUBCUT DAILY [facility] Last Admin: 11/03/18 08:54 Dose: 40 mg Guaifenesin (Mucinex) 1,200 mg PO BID [facility] Last Admin: 11/03/18 08:55 Dose: 1,200 mg Hydralazine HCl (Apresoline) 20 mg IVPUSH Q4H PRN PRN Reason: Hypertension Last Admin: 10/31/18 17:13 Dose: 20 mg Ceftriaxone Sodium 2 gm/ (Sodium Chloride) 100 mls @ 200 mls/hr IV Q12H [facility] Last Admin: 11/03/18 04:57 Dose: 200 mls/hr Ipratropium [place] (Atrovent) 0.5 mg NEB Q8HRRT [facility] Last Admin: 11/03/18 05:16 Dose: 0.5 mg Levalbuterol HCl (Xopenex) 1.25 mg NEB QIDRT [facility] Last Admin: 11/03/18 09:32 Dose: 1.25 mg Magnesium Oxide (Magnesium Oxide) 400 mg PO DAILY [facility] Last Admin: 11/03/18 08:55 Dose: 400 mg Methylprednisolone Sodium Succinate (Solu-Medrol) 40 mg IVPUSH Q12H [facility] Last Admin: 11/03/18 06:50 Dose: 40 mg Metoprolol Tartrate (Lopressor) 50 mg PO Q12H [facility] Last Admin: 01/24/19 08:55 Dose: 50 mg Mirtazapine (Remeron) 30 mg PO BEDTIME [facility] Last Admin: 11/02/18 21:48 Dose: 30 mg Miscellaneous Information (Remove Patch) 1 ea TRDERM Q7D [facility] Last Admin: 11/02/18 21:45 Dose: Not Given Mometasone Furoate/Formoterol Fumar (Dulera 100-5 Mcg) 0 puff IH BID [facility] Last Admin: 11/03/18 09:32 Dose: Not Given Morphine Sulfate (Morphine) 0.5 mg IVPUSH Q4H PRN PRN Reason: Dyspnea Last Admin: 11/03/18 13:29 Dose: 0.5 mg Ondansetron HCl (Zofran) 4 mg IV Q6H PRN PRN Reason: Nausea/Vomiting Last Admin: 10/27/18 16:13 Dose: 4 mg Roflumilast 500 Mg 500 each PO DAILY [facility] Last Admin: 11/03/18 08:56 Dose: Not Given Polyethylene Glycol (Miralax) 17 gm PO DAILY PRN PRN Reason: Constipation Quetiapine Fumarate (Seroquel) 50 mg PO BEDTIME [facility] Last Admin: 11/02/18 21:48 Dose: 50 mg Senna/Docusate Sodium (Senna Plus) 1 tab PO BID PRN PRN Reason: Constipation Tiotropium [place] (Spiriva Handihaler) 18 mcg INH DAILY [facility] Last Admin: 11/03/18 09:32 Dose: Not Given Triamterene/HCTZ (Dyazide 25-37.5 Mg) 1 each PO DAILY [facility] Last Admin: 11/03/18 08:55 Dose: 1 each Discontinued Medications Albuterol (Proventil Neb Soln) 2.5 mg NEB ONETIME ONE Stop: 10/26/18 14:44 Last Admin: 10/26/18 15:15 Dose: 2.5 mg Albuterol (Proventil Neb Soln) 2.5 mg NEB ONETIME ONE Stop: 10/26/18 15:33 Last Admin: 10/26/18 16:06 Dose: 2.5 mg Albuterol (Proventil Hfa) 0 gm INH Q4H PRN PRN Reason: Shortness of Breath Albuterol/Ipratropium (Duoneb 3.0-0.5 Mg/3 Ml) 3 ml NEB ONETIME ONE Stop: 10/26/18 13:59 Last Admin: 10/26/18 14:32 Dose: 3 ml Albuterol/Ipratropium (Duoneb 3.0-0.5 Mg/3 Ml) 3 ml NEB Q4H PRN PRN Reason: Shortness Of Breath/wheezing Alprazolam (Xanax) 1 mg PO BID [facility] Last Admin: 10/26/18 20:08 Dose: Not Given Aminophylline (Aminophylline) 250 mg IV ONETIME ONE Stop: 10/27/18 18:49 Last Admin: 10/27/18 21:40 Dose: Not Given Clonidine HCl (Catapres) 0.1 mg PO ONETIME ONE Stop: 10/26/18 16:40 Last Admin: 10/26/18 16:55 Dose: 0.1 mg Digoxin (Lanoxin) 250 mcg IVPUSH ONETIME ONE Stop: 10/27/18 23:46 Last Admin: 10/28/18 00:03 Dose: 250 mcg Digoxin (Lanoxin) 125 mcg IVPUSH ONETIME ONE Stop: 10/28/18 06:01 Last Admin: 10/28/18 06:00 Dose: 125 mcg Diltiazem HCl (Cardizem) 10 mg IVPUSH Q6H PRN PRN Reason: Tachycardia Last Admin: 10/26/18 20:22 Dose: 10 mg Diltiazem HCl (Cardizem) 10 mg IVPUSH Q4H PRN PRN Reason: Tachycardia Last Admin: 10/27/18 15:20 Dose: 10 mg Diltiazem HCl (Cardizem Cd) 180 mg PO ONETIME ONE Stop: 10/27/18 09:12 Last Admin: 10/27/18 09:38 Dose: 180 mg Glycopyrrolate (Seebri Neohaler) 0 mcg IH BID [facility] Hydromorphone HCl (Dilaudid) 0.5 mg IVPUSH ONETIME ONE Stop: 10/26/18 14:45 Last Admin: 10/26/18 14:59 Dose: 0.5 mg Lactated Ringer's (Ringers, Lactated) 500 mls @ 999 mls/hr IV .BOLUS ONE Stop: 10/26/18 14:25 Last Admin: 10/26/18 14:12 Dose: 999 mls/hr Ceftriaxone Sodium 2 gm/ (Sodium Chloride) 100 mls @ 200 mls/hr IV NOW STA Stop: 10/26/18 15:12 Last Admin: 10/26/18 15:00 Dose: 200 mls/hr Lactated Ringer's (Ringers, Lactated) 1,000 mls @ 125 mls/hr IV ASDIRECTED [facility] Last Admin: 10/26/18 16:55 Dose: 125 mls/hr Magnesium Sulfate 2 gm/ Premix 50 mls @ 50 mls/hr IV ONETIME ONE Stop: 10/26/18 19:14 Last Admin: 10/26/18 18:27 Dose: 50 mls/hr Potassium Chloride 10 meq/ (Premix) 100 mls @ 100 mls/hr IV Q1H [facility] Stop: 10/26/18 23:29 Last Admin: 10/26/18 20:14 Dose: Not Given Levofloxacin/Dextrose 750 mg/ (Premix) 150 mls @ 100 mls/hr IV Q24H [facility] Last Admin: 10/26/18 20:15 Dose: Not Given Piperacillin Sod/Tazobactam (Sod 4.5 gm/ Sodium Chloride) 100 mls @ 25 mls/hr IV Q8H [facility] Last Admin: 10/31/18 04:37 Dose: 25 mls/hr Piperacillin Sod/Tazobactam (Sod 4.5 gm/ Sodium Chloride) 100 mls @ 200 mls/hr IV ONETIME ONE Stop: 10/26/18 20:29 Last Admin: 10/26/18 20:33 Dose: 200 mls/hr Magnesium Sulfate/Dextrose 1 (gm/ Premix) 100 mls @ 100 mls/hr IV ONETIME ONE Stop: 10/26/18 19:49 Last Admin: 10/26/18 20:01 Dose: Not Given Levofloxacin/Dextrose 750 mg/ (Premix) 150 mls @ 100 mls/hr IV Q24H [facility] Last Admin: 10/27/18 20:22 Dose: 100 mls/hr Aminophylline 250 mg/ Dextrose (/Water) 60 mls @ 6.84 mls/hr IV ONETIME ONE Stop: 10/27/18 06:46 Last Admin: 10/27/18 01:13 Dose: Not Given Aminophylline 250 mg/ Sodium (Chloride) 60 mls @ 6.84 mls/hr IV ONETIME ONE Stop: 10/27/18 08:01 Last Admin: 10/26/18 23:27 Dose: 0.5 mg/kg/hr, 6.84 mls/hr Diltiazem HCl 125 mg/ Sodium (Chloride) 125 mls @ 5 mls/hr IV TITRATE SHAUN; Protocol Last Titration: 10/28/18 10:06 Dose: Infused Aminophylline 250 mg/ Sodium (Chloride) 60 mls @ 180 mls/hr IV ONETIME ONE Stop: 10/27/18 19:19 Last Admin: 10/27/18 19:53 Dose: 180 mls/hr Sodium Chloride (Normal Saline) Confirm Administered Dose 100 mls @ as directed .ROUTE .STK-MED ONE Stop: 10/28/18 01:06 Last Admin: 10/28/18 01:15 Dose: Not Given Sodium Chloride (Normal Saline) 500 mls @ 999 mls/hr IV .BOLUS ONE Stop: 10/28/18 08:17 Last Admin: 10/28/18 08:40 Dose: 999 mls/hr Sodium Chloride (Normal Saline) 1,000 mls @ 50 mls/hr IV ASDIRECTED [facility] Last Admin: 11/02/18 17:05 Dose: 50 mls/hr Levofloxacin/Dextrose 750 mg/ (Premix) 150 mls @ 100 mls/hr IV Q48H [facility] Last Admin: 10/29/18 20:11 Dose: 100 mls/hr Ceftriaxone Sodium 2 gm/ (Sodium Chloride) 100 mls @ 200 mls/hr IV Q12H [facility] Last Admin: 10/30/18 15:34 Dose: Not Given Magnesium Sulfate 2 gm/ Premix 50 mls @ 25 mls/hr IV ONETIME ONE Stop: 11/03/18 12:11 Last Admin: 11/03/18 10:52 Dose: 25 mls/hr Ipratropium [place] (Atrovent) 0.5 mg NEB BID [facility] Last Admin: 10/30/18 09:52 Dose: 0.5 mg Levalbuterol HCl (Xopenex) 1.25 mg NEB Q6H PRN PRN Reason: SOB/Dyspnea Last Admin: 10/30/18 03:42 Dose: 1.25 mg Levalbuterol HCl (Xopenex) 1.25 mg NEB BID [facility] Last Admin: 10/30/18 10:13 Dose: Not Given Levalbuterol HCl (Xopenex) 1.25 mg NEB QID [facility] Last Admin: 10/30/18 10:24 Dose: 1.25 mg Lorazepam (Ativan) 1 mg IVPUSH ONETIME ONE Stop: 10/26/18 13:57 Last Admin: 10/26/18 14:12 Dose: 1 mg Lorazepam (Ativan) 0.5 mg IVPUSH ONETIME ONE Stop: 10/26/18 16:40 Last Admin: 10/26/18 16:54 Dose: 0.5 mg Magnesium Sulfate (Pharmacy To Dose - Magnesium Replacement) 1 dose .XX ASDIRECTED [facility] Methylprednisolone Sodium Succinate (Solu-Medrol) 125 mg IVPUSH ONETIME ONE Stop: 10/26/18 14:45 Last Admin: 10/26/18 15:00 Dose: 125 mg Methylprednisolone Sodium Succinate (Solu-Medrol) 80 mg IVPUSH Q8H [facility] Last Admin: 10/30/18 05:01 Dose: 80 mg Methylprednisolone Sodium Succinate (Solu-Medrol) 125 mg IVPUSH Q8H [facility] Last Admin: 11/01/18 04:24 Dose: 125 mg Methylprednisolone Sodium Succinate (Solu-Medrol) 125 mg IVPUSH ONETIME ONE Stop: 11/01/18 17:01 Last Admin: 11/01/18 16:58 Dose: 125 mg Methylprednisolone Sodium Succinate (Solu-Medrol) 80 mg IVPUSH Q12H [facility] Stop: 11/02/18 20:00 Last Admin: 11/02/18 17:10 Dose: 80 mg Metoprolol Tartrate (Lopressor) 5 mg IVPUSH Q4H PRN PRN Reason: Tachycardia Last Admin: 10/26/18 19:11 Dose: 5 mg Metoprolol Tartrate (Lopressor) 25 mg PO BID [facility] Last Admin: 10/27/18 08:30 Dose: Not Given Nystatin (Mycostatin) 5 ml PO QID PRN PRN Reason: thrush Potassium Chloride (Pharmacy To Dose - Potassium Replacement) 1 dose .XX ASDIRECTED [facility] Potassium Chloride (Klor-Con M20) 40 meq PO ONETIME ONE Stop: 10/28/18 09:01 Last Admin: 10/28/18 08:51 Dose: 40 meq Potassium Chloride (Klor-Con M20) 40 meq PO BID [facility] Stop: 11/03/18 21:01 Last Admin: 11/03/18 08:55 Dose: 40 meq Theophylline (Theophylline Anhydrous) 300 mg PO DAILY [facility] Last Admin: 10/27/18 08:32 Dose: 300 mg Theophylline (Theophylline Anhydrous) 300 mg PO BID [facility] Last Admin: 10/27/18 20:32 Dose: 300 mg - Exam Quality Assessment: DVT Prophylaxis General: Alert, Oriented, Cooperative, No Acute Distress HEENT: Pupils Equal, Pupils Reactive, EOMI Neck: Trachea Midline, No JVD Lungs: Normal Respiratory Effort Cardiovascular: Regular Rate, Regular Rhythm GI/Abdominal Exam: Normal Bowel Sounds, Soft, Non-Tender, No Organomegaly, No Distention (Female) Exam: Deferred Back Exam: Normal Inspection Extremities: Normal Inspection, Non-Tender, Normal Capillary Refill Skin: Warm Neurological: No New Focal Deficit Psy/Mental Status: Alert, Normal Affect, Normal Mood - Problem List & Annotations (1) COPD exacerbation SNOMED Code(s): 007731627 Code(s): J44.1 - CHRONIC OBSTRUCTIVE PULMONARY DISEASE W (ACUTE) EXACERBATION Status: Acute Current Visit: Yes (2) Pneumonia SNOMED Code(s): 569402841 Code(s): J18.9 - PNEUMONIA, UNSPECIFIED ORGANISM Status: Acute Current Visit: Yes (3) Acute febrile illness SNOMED Code(s): 309590117 Code(s): R50.9 - FEVER, UNSPECIFIED Status: Acute Current Visit: No (4) Depression with anxiety SNOMED Code(s): 06876242, 467691554 Code(s): F41.8 - OTHER SPECIFIED ANXIETY DISORDERS Status: Acute Current Visit: No (5) End stage COPD SNOMED Code(s): 845054723 Code(s): J44.9 - CHRONIC OBSTRUCTIVE PULMONARY DISEASE, UNSPECIFIED Status : Acute Current Visit: No (6) Pulmonary hypertension SNOMED Code(s): 73356090 Code(s): I27.2 - OTHER SECONDARY PULMONARY HYPERTENSION * DO NOT USE * Status: Acute Current Visit: No - Problem List Review Problem List Initiated/Reviewed/Updated: Yes - My Orders Last 24 Hours: My Active Orders 11/02/18 13:27 Consult to Occupational Therapy [OT Evaluation and Treatment] [CONS] Routine Consult to Physical Therapy [PT Evaluation and Treatment] [CONS] Routine 11/02/18 14:18 Code Status [Resuscitation Status] Routine 11/03/18 07:00 methylPREDNISolone Sod Succ [Solu-MEDROL] 40 mg IVPUSH Q12H 11/03/18 14:00 Clotrimazole [Mycelex] 10 mg PO 5XDAY 11/04/18 05:00 BMP [BASIC METABOLIC PANEL,BMP] [CHEM] DAILY CBC WITH AUTO DIFF [HEME] DAILY CRP [C-REACTIVE PROTEIN] [CHEM] DAILY MAGNESIUM [CHEM] DAILY 11/05/18 05:00 BMP [BASIC METABOLIC PANEL,BMP] [CHEM] DAILY CBC WITH AUTO DIFF [HEME] DAILY CRP [C-REACTIVE PROTEIN] [CHEM] DAILY MAGNESIUM [CHEM] DAILY - Plan Plan:: Assessment/Plan: Acute: CAP 2/2 Strep Pneumoniae, meningococcus - CXR shows increased density within the lingula - Failed outpatient treatment - Just completed oral Levaquin and Taper dose of Prednisone - Risk Factors: End Stage COPD and Chronic Respiratory Failure - She is high risk for pseudomonas due to recent use of steroids - Continue IV Zosyn and Levaquin for pharmacy to renally dose; Gm +/- coverage - Supplemental O2, Bronchodilators, IV Mg, IS q2 awake and Cough Suppressant/ Expectorant - Mycoplasma, RVP and Blood Cx- all negative - Sputum Cx pos for Probable Strep Pneumonia End Stage COPD Exacerbation - IV Steroids, Scheduled and PRN Bronchodilators, O2 - IS Q2 awake - Decongestant/Expectorant - Sputum Cx/Sx-Strep Pneumonia - Nocturnal BIPAP, NC during the day Respiratory Failure-->>greatly improved; DC home expected 11/04/18. - Acute on Chronic Hypercapneic and Hypoxic improved ABGs. - 2/2 Above - ABG: pH of 7.32, PO2 59.1, pCO2 of 81.1, HCO3 of 40.1, and O2 sat at 87% on 4L NC; repeat ABG better this AM - Changed BIPAP setting, 12/6 o 0.4 - Treat underlying cause above -Has mainatined stable blood gas on NC cf BIPAP, will monitor; results were reviewed with patient and sons Tachycardic and Hypertension-->resolved - Continue Levalbuterol/Ipratropium - Discontinue Digoxin and Theophylline (arrhythmogenic) - Continue Cardizem drip and will resume Metoprolol since her ABG is much better---ineffective with sinus tach - PRN BIPAP hopefully to help improve pressure as well End of Life Care - Hospice/Palliative Care, TBD --DNR/DNI, Comfort care Chronic: Impaired Vision HTN OA/DJD Osteoporosis Back Pain Migraines Chronic Pain Depression Anxiety Plan: Routine AM Labs PRN Medications Continue Rocephin Repeat labs this afternoon Continue oral theophylline for bronchospasm and stimulant RT to assess and treat Discontinue /PT/OT as she is not appropriate at this point May benefit with cardiopulmonary rehab but not home health /CM for d/c planning Additional orders as above Code status: 1 Prognosis is guarded; will remain a full code. LOS>96 hours with slow response to PNA; hx of end stage lug disease. Code status changed today after family meeting, DNR/DNI, comfort care. DC on 11/03/18.
[2018-11-03] MEDS: QUEtiapine 25 MG Tab PO SCH (20:30)
[2018-11-03] MEDS: Mirtazapine 30 MG Tab PO SCH (20:32)
[2018-11-04] MEDS: cefTRIAXone 2 GM in Sodium Chloride 0.9% 100 ML IV SCH (05:19)
[2018-11-04] MEDS: Clotrimazole 10 MG Troche PO SCH ×3 (05:20→14:26)
[2018-11-04] MEDS: Morphine 2 MG/ML Syringe IVPUSH PRN ×3 (05:20→13:37)
[2018-11-04] MEDS: Levalbuterol HCl 1.25 MG/0.5 ML Neb NEB SCH ×3 (05:34→15:34)
[2018-11-04] MEDS: Ipratropium 0.02% 0.5 MG/2.5 ML Neb Soln NEB SCH ×2 (05:34→15:34)
[2018-11-04] MEDS: methylPREDNISolone Sodium Succinate 40 MG/1 ML SDV IVPUSH SCH (06:47)
[2018-11-04] MEDS: Formoterol/Mometasone 100-5 MCG 8.8 GM Inhaler IH SCH ×2 (07:09→10:30)
[2018-11-04] MEDS: guaiFENesin 600 MG Tab.ER PO SCH (08:02)
[2018-11-04] MEDS: Magnesium Oxide 400 MG Tab PO SCH (08:02)
[2018-11-04] MEDS: Diltiazem 180 MG Cap.CD PO SCH (08:02)
[2018-11-04] MEDS: Metoprolol Tartrate 50 MG Tab PO SCH (08:05)
[2018-11-04] MEDS: Acetaminophen/HYDROcodone 325-10 MG Tab PO PRN ×2 (08:06→16:13)
[2018-11-04] MEDS: Hydrochlorothiazide/Triamterene 25-37.5 MG Cap PO SCH (08:07)
[2018-11-04] MEDS: ALPRAZolam 1 MG Tab PO SCH (08:07)
[2018-11-04] MEDS: Enoxaparin 40 MG/0.4 ML Syringe SUBCUT SCH (08:11)
[2018-11-04] MEDS: ROFLUMILAST 500 MG PO SCH (08:11)
[2018-11-04] MEDS: Tiotropium Inhaler 18 MCG Inhalation Powder Cap Kit of 5 INH SCH (10:30)
--- NOTE | 2018-11-04 11:37 | PCM.DCSUM1 ---
Discharge Summary - Hospital Course Free Text/Narrative:: 52 year old with endstage COPD, O2 dependent at 3 l/m was found to have pneumonia. She had a bought of sinus tach after a betaagonist treatment and was subsequently started on an AV ish floyd. However the HR did not slow down until the cause was addressed, adjustment of her antibiotics resulted in decreased O2 need and and overall improvement. The patient had gram pos/neg diplococci and responded well to Rocephin 2 gm BID. Steroids were used and a slow gradual improvement occurred. However well over 96 hours was needed for response to the antibiotic. At least three family meetings were held, total time spent one hour total for the three meetings. The patient changed her code status with the support of her family particularly adult children, Yusef, Cirilo , Jalen who were supportive. She is now DNR/DNI, Comfort Care. ############### Home Health Documentation, FACE TO FACE Physical well being--- acute generalized weakness/loss of strength>>>>>>>>>> deconditioned from ICU stay Homebound chronically--- end stage COPD associated with hypoxia, hypercapnia and generalized weakness at baseline Hypoxic needed increased O2 after PNA from 2 organisms>>>>>>>>>>>>SOB as expected with acute Pneumonia superimposed on COPD, end stage. Home will live next door to her caregiver, daughter in law>>>>>>>>>>>>assist with food, grooming, cleaning apartment prison to assist family with care and assessment of COPD>>>>>>SOB, adjustment of O2, VS, administer breathing treatments, NEBS. Home safety evaluation is ordered to improve home environment>>>>>>>pre- existing furniture, equipment needed. Return to functional status>>>>>>>>>>>>>>>>>>>>>>>>>>>>>>>>>>>increase ambulation, strength, endurance with help of PT/OT. ############### Primary Dx Acute resp distress Acute resp failure with use of noninvasive ventilation, BIPAP Pneumonia, multi-organism End stage COPD Hypoxia Hypercapnia Meds See list Oxygen 4 l/m, note previous baseline Prednisone taper Condition Stable, fragile with end stage COPD Code status DNR/DNI, Comfort Care HPI Initial Comments: This is a 52 yo white female with past medical hx/o Impaired Vision, End Stage COPD, Chronic Respiratory Failure on 4L NC, HTN, OA/DJD, Osteoporosis, Back Pain , Migraines, Chronic Pain, Depression, and Anxiety who comes in for worsening shortness of breath and was diagnosed with lingering community acquired pneumonia. She just completed oral antibiotic and a taper dose of steroids but w /o much relief. Patient is known to us for multiple admission related to her End Stage COPD in the past. Her initial work up in ED shows a CBC remarkable for WBC of 13.61, Platelet # of 432, MPV of 9.1, Neutrophils of 78% and Lymphocytes of 12%. Her ABG shows pH of 7.32, pCO2 of 81.1, pO2 of 59, HCO3 of 40.1, O2 Sat of 87.3, on 4L NC. Her Chemistry is significant for Na of 133, Cl of 89, CO2 of 36, BS of 121, Mg of 1.7, AST of 14, Alk Phos of 117, CRP of 26.9, and Albumin of 2.9. Her chest x- ray shows hyperinflated lungs with increased density within the lingula. Patient is being admitted for lingering community acquired pneumonia, respiratory failure and copd exacerbation. She is full code. Diagnosis: Stroke: No - Discharge Data Discharge Date: 11/04/18 Discharge Disposition: Home, W Home Health Agency 06 Condition: Stable - Discharge Diagnosis/Problem(s) (1) COPD exacerbation SNOMED Code(s): 145057927 ICD Code: J44.1 - CHRONIC OBSTRUCTIVE PULMONARY DISEASE W (ACUTE) EXACERBATION Status: Acute (2) Pneumonia SNOMED Code(s): 546443247 ICD Code: J18.9 - PNEUMONIA, UNSPECIFIED ORGANISM Status: Acute (3) Acute febrile illness SNOMED Code(s): 014532613 ICD Code: R50.9 - FEVER, UNSPECIFIED Status: Acute (4) Depression with anxiety SNOMED Code(s): 88452086, 966908281 ICD Code: F41.8 - OTHER SPECIFIED ANXIETY DISORDERS Status: Acute (5) End stage COPD SNOMED Code(s): 724648300 ICD Code: J44.9 - CHRONIC OBSTRUCTIVE PULMONARY DISEASE, UNSPECIFIED Status : Acute (6) Pulmonary hypertension SNOMED Code(s): 96184822 ICD Code: I27.2 - OTHER SECONDARY PULMONARY HYPERTENSION * DO NOT USE * Status: Acute - Patient Summary/Data Consults: Consultations 10/26/18 18:06 Consult to Case Management/[place] [CONS] Routine Consult to Spiritual Care [CONS] Routine Respiratory Care Assess and Treatment [CONS] Routine 10/26/18 18:51 Consult to Dietary [Consult to Histology Aide] [CONS] Routine 11/02/18 13:27 Consult to Occupational Therapy [OT Evaluation and Treatment] [CONS] Routine Consult to Physical Therapy [PT Evaluation and Treatment] [CONS] Routine - Patient Instructions Diet: Usual Diet as Tolerated Activity: As Tolerated Driving: Do Not Drive Showering/Bathing: May Shower Notify Provider of: Fever, Increased Pain, Nausea and/or Vomiting - Discharge Plan *PRESCRIPTION DRUG MONITORING PROGRAM REVIEWED*: No *COPY OF PRESCRIPTION DRUG MONITORING REPORT IN PATIENT MARA: No Prescriptions/Med Rec: cephALEXin [Keflex] 500 mg PO Q8H #15 cap Metoprolol Tartrate [Lopressor] 50 mg PO Q12H #60 tablet predniSONE 40 mg PO .TAPER #30 tablet Home Medications: Home Meds Budesonide/Formoterol Fumarate [Symbicort 80-4.5 Mcg Inhaler] 2 puff IH BID [History] Triamterene/Hydrochlorothiazid [Triamterene-HCTZ 37.5-25 MG] 1 each PO DAILY # 30 capsule 04/23/17 [Rx] Mirtazapine [Remeron] 30 mg PO BEDTIME 08/11/17 [History] QUEtiapine Fumarate [Seroquel] 50 mg PO BEDTIME 08/11/17 [History] ALPRAZolam [Xanax] 1 mg PO BID 10/11/17 [History] Albuterol [Proair HFA] 2 puff INH Q4HR PRN 12/01/17 [History] Hydrocodone/Acetaminophen [Hydrocodon-Acetaminophn 10-325] 10 - 325 mg PO Q6H PRN 12/26/17 [History] guaiFENesin [Mucinex] 1,200 mg PO BID #30 tab.er 12/31/17 [Rx] Nystatin [Mycostatin] 5 ml PO QID PRN 04/24/18 [History] Roflumilast [Daliresp] 500 mg PO DAILY 04/24/18 [History] Tiotropium Concord [Spiriva Respimat] 5 mcg INH DAILY 04/24/18 [History] Magnesium Oxide 500 mg PO DAILY 10/26/18 [History] Metoprolol Tartrate [Lopressor] 50 mg PO Q12H #60 tablet 11/04/18 [Rx] cephALEXin [Keflex] 500 mg PO Q8H #15 cap 11/04/18 [Rx] predniSONE 40 mg PO .TAPER #30 tablet 11/04/18 [Rx] Oxygen Therapy Mode: Nasal Cannula Oxygen Flow Rate (L/min): 4 Patient Handouts: Community-Acquired Pneumonia, Adult, [id number] Forms: ED Department Discharge Referrals: Liza Fernandez, [employer]ING [employer] OPERATOR [Primary Care Provider] - - Discharge Summary/Plan Comment DC Time >30 min.: No Discharge Summary/Plan Comment: Assessment/Plan: Acute: CAP 2/2 Strep Pneumoniae, meningococcus - CXR shows increased density within the lingula - Failed outpatient treatment - Just completed oral Levaquin and Taper dose of Prednisone - Risk Factors: End Stage COPD and Chronic Respiratory Failure - She is high risk for pseudomonas due to recent use of steroids - Continue IV Zosyn and Levaquin for pharmacy to renally dose; Gm +/- coverage - Supplemental O2, Bronchodilators, IV Mg, IS q2 awake and Cough Suppressant/ Expectorant - Mycoplasma, RVP and Blood Cx- all negative - Sputum Cx pos for Probable Strep Pneumonia End Stage COPD Exacerbation - IV Steroids, Scheduled and PRN Bronchodilators, O2 - IS Q2 awake - Decongestant/Expectorant - Sputum Cx/Sx-Strep Pneumonia - Nocturnal BIPAP, NC during the day Respiratory Failure-->>greatly improved; DC home expected 11/04/18. - Acute on Chronic Hypercapneic and Hypoxic improved ABGs. - 2/2 Above - ABG: pH of 7.32, PO2 59.1, pCO2 of 81.1, HCO3 of 40.1, and O2 sat at 87% on 4L NC; repeat ABG better this AM - Changed BIPAP setting, 12/6 o 0.4 - Treat underlying cause above -Has mainatined stable blood gas on NC cf BIPAP, will monitor; results were reviewed with patient and sons Tachycardic and Hypertension-->resolved - Continue Levalbuterol/Ipratropium - Discontinue Digoxin and Theophylline (arrhythmogenic) - Continue Cardizem drip and will resume Metoprolol since her ABG is much better---ineffective with sinus tach - PRN BIPAP hopefully to help improve pressure as well End of Life Care - Hospice/Palliative Care, TBD --DNR/DNI, Comfort care Chronic: Impaired Vision HTN OA/DJD Osteoporosis Back Pain Migraines Chronic Pain Depression Anxiety Plan: Routine AM Labs PRN Medications Continue Rocephin Repeat labs this afternoon Continue oral theophylline for bronchospasm and stimulant RT to assess and treat Discontinue /PT/OT as she is not appropriate at this point May benefit with cardiopulmonary rehab but not home health SW/CM for d/c planning Additional orders as above Code status: 1 Prognosis is guarded; will remain a full code. LOS>96 hours with slow response to PNA; hx of end stage lug disease. Code status changed today after family meeting, DNR/DNI, comfort care. DC on 11/03/18. - General Info Date of Service: 10/26/18 Functional Status: Reports: Pain Controlled, Tolerating Diet, Ambulating, Urinating - Review of Systems General: Reports: No Symptoms HEENT: Reports: No Symptoms Pulmonary: Reports: No Symptoms Cardiovascular: Reports: No Symptoms Gastrointestinal: Reports: No Symptoms Genitourinary: Reports: No Symptoms Musculoskeletal: Reports: No Symptoms Skin: Reports: No Symptoms Neurological: Reports: No Symptoms Psychiatric: Reports: No Symptoms - Patient Data Vitals - Most Recent: Last Vital Signs Temp 36.8 C 11/04/18 07:38 Pulse 76 11/04/18 08:05 Resp 20 11/04/18 07:38 BP 148/81 H 11/04/18 08:05 Pulse Ox 95 11/04/18 10:30 Weight - Most Recent: 68.22 kg I&O - Last 24 hours: Intake & Output 11/03/18 11/04/18 11/04/18 22:59 06:59 14:59 Intake Total 1100 350 240 Output Total 200 200 Balance 900 350 40 Lab Results - Last 24 hrs: Laboratory Results - last 24 hr 11/04/18 11/04/18 Range/Units 05:08 05:08 WBC 14.57 H (3.98-10.04) K/mm3 RBC 3.94 L (3.98-5.22) M/mm3 Hgb 10.9 L (11.2-15.7) gm/L Hct 35.8 (34.1-44.9) % MCV 90.9 (79.4-94.8) fl MCH 27.7 (25.6-32.2) pg MCHC 30.4 L (32.2-35.5) g/dl RDW Std Deviation 44.0 (36.4-46.3) fL Plt Count 353 (182-369) K/mm3 MPV 9.5 (9.4-12.3) fl Neut % (Auto) 92.0 H (34.0-71.1) % Lymph % (Auto) 2.2 L (19.3-51.7) % Yancey % (Auto) 4.5 L (4.7-12.5) % Eos % (Auto) 0 L (0.7-5.8) Baso % (Auto) 0.1 (0.1-1.2) % Neut # (Auto) 13.41 H (1.56-6.13) K/mm3 Lymph # (Auto) 0.32 L (1.18-3.74) K/mm3 Yancey # (Auto) 0.65 H (0.24-0.36) K/mm3 Eos # (Auto) 0.00 L (0.04-0.36) K/mm3 Baso # (Auto) 0.02 (0.01-0.08) K/mm3 Manual Slide Review Abnormal smear Sodium 137 (136-145) mEq/L Potassium 4.9 (3.5-5.1) mEq/L Chloride 101 (98-107) mEq/L Carbon Dioxide 38 H (21-32) mEq/L Anion Gap 2.9 L (5-15) BUN 20 H (7-18) mg/dL Creatinine 0.7 (0.55-1.02) mg/dL Est Cr Clr Drug Dosing 80.26 mL/min Estimated GFR (MDRD) > 60 (>60) mL/min BUN/Creatinine Ratio 28.6 H (14-18) Glucose 156 H (74-106) mg/dL Calcium 8.5 (8.5-10.1) mg/dL Magnesium 1.9 (1.8-2.4) mg/dl C-Reactive Protein < 0.2 (<1.0) mg/dL Med Orders - Current: Current Medications Acetaminophen (Tylenol) 650 mg PO Q4H PRN PRN Reason: Pain (Mild 1-3)/fever Hydrocodone Bitart/Acetaminophen ([place] 325-10 Mg) 1 tab PO Q6H PRN PRN Reason: PAIN Last Admin: 11/04/18 08:06 Dose: 1 tab Alprazolam (Xanax) 1 mg PO BID@0800,2000 [facility] Last Admin: 11/04/18 08:07 Dose: 1 mg Bisacodyl (Dulcolax) 5 mg PO DAILY PRN PRN Reason: Constipation Last Admin: 10/31/18 08:41 Dose: 5 mg Clonidine HCl (Catapres-Tts 3) 0.3 mg TRDERM Q7D [facility] Last Admin: 11/02/18 21:45 Dose: Not Given Clotrimazole (Mycelex) 10 mg PO 5XDAY [facility] Last Admin: 11/04/18 09:47 Dose: 10 mg Diltiazem HCl (Cardizem Cd) 180 mg PO DAILY [facility] Last Admin: 11/04/18 08:02 Dose: 180 mg Docusate Sodium (Colace) 100 mg PO BID PRN PRN Reason: Constipation Enoxaparin Sodium (Lovenox) 40 mg SUBCUT DAILY [facility] Last Admin: 11/04/18 08:11 Dose: 40 mg Guaifenesin (Mucinex) 1,200 mg PO BID [facility] Last Admin: 11/04/18 08:02 Dose: 1,200 mg Hydralazine HCl (Apresoline) 20 mg IVPUSH Q4H PRN PRN Reason: Hypertension Last Admin: 10/31/18 17:13 Dose: 20 mg Ipratropium Concord (Atrovent) 0.5 mg NEB Q8HRRT [facility] Last Admin: 11/04/18 05:34 Dose: 0.5 mg Levalbuterol HCl (Xopenex) 1.25 mg NEB QIDRT [facility] Last Admin: 11/04/18 10:30 Dose: 1.25 mg Magnesium Oxide (Magnesium Oxide) 400 mg PO DAILY [facility] Last Admin: 11/04/18 08:02 Dose: 400 mg Methylprednisolone Sodium Succinate (Solu-Medrol) 40 mg IVPUSH Q12H [facility] Last Admin: 11/04/18 06:47 Dose: 40 mg Metoprolol Tartrate (Lopressor) 50 mg PO Q12H [facility] Last Admin: 11/04/18 08:05 Dose: 50 mg Mirtazapine (Remeron) 30 mg PO BEDTIME [facility] Last Admin: 11/03/18 20:32 Dose: 30 mg Miscellaneous Information (Remove Patch) 1 ea TRDERM Q7D [facility] Last Admin: 11/02/18 21:45 Dose: Not Given Mometasone Furoate/Formoterol Fumar (Dulera 100-5 Mcg) 0 puff IH BID [facility] Last Admin: 11/04/18 10:30 Dose: Not Given Morphine Sulfate (Morphine) 0.5 mg IVPUSH Q4H PRN PRN Reason: Dyspnea Last Admin: 11/04/18 09:43 Dose: 0.5 mg Ondansetron HCl (Zofran) 4 mg IV Q6H PRN PRN Reason: Nausea/Vomiting Last Admin: 10/27/18 16:13 Dose: 4 mg Roflumilast 500 Mg 500 each PO DAILY [facility] Last Admin: 11/04/18 08:11 Dose: Not Given Polyethylene Glycol (Miralax) 17 gm PO DAILY PRN PRN Reason: Constipation Quetiapine Fumarate (Seroquel) 50 mg PO BEDTIME [facility] Last Admin: 11/03/18 20:30 Dose: 50 mg Senna/Docusate Sodium (Senna Plus) 1 tab PO BID PRN PRN Reason: Constipation Tiotropium Concord (Spiriva Handihaler) 18 mcg INH DAILY [facility] Last Admin: 11/04/18 10:30 Dose: Not Given Triamterene/HCTZ (Dyazide 25-37.5 Mg) 1 each PO DAILY [facility] Last Admin: 11/04/18 08:07 Dose: 1 each Discontinued Medications Albuterol (Proventil Neb Soln) 2.5 mg NEB ONETIME ONE Stop: 10/26/18 14:44 Last Admin: 10/26/18 15:15 Dose: 2.5 mg Albuterol (Proventil Neb Soln) 2.5 mg NEB ONETIME ONE Stop: 10/26/18 15:33 Last Admin: 10/26/18 16:06 Dose: 2.5 mg Albuterol (Proventil Hfa) 0 gm INH Q4H PRN PRN Reason: Shortness of Breath Albuterol/Ipratropium (Duoneb 3.0-0.5 Mg/3 Ml) 3 ml NEB ONETIME ONE Stop: 10/26/18 13:59 Last Admin: 10/26/18 14:32 Dose: 3 ml Albuterol/Ipratropium (Duoneb 3.0-0.5 Mg/3 Ml) 3 ml NEB Q4H PRN PRN Reason: Shortness Of Breath/wheezing Alprazolam (Xanax) 1 mg PO BID [facility] Last Admin: 10/26/18 20:08 Dose: Not Given Aminophylline (Aminophylline) 250 mg IV ONETIME ONE Stop: 10/27/18 18:49 Last Admin: 10/27/18 21:40 Dose: Not Given Clonidine HCl (Catapres) 0.1 mg PO ONETIME ONE Stop: 10/26/18 16:40 Last Admin: 10/26/18 16:55 Dose: 0.1 mg Digoxin (Lanoxin) 250 mcg IVPUSH ONETIME ONE Stop: 10/27/18 23:46 Last Admin: 10/28/18 00:03 Dose: 250 mcg Digoxin (Lanoxin) 125 mcg IVPUSH ONETIME ONE Stop: 10/28/18 06:01 Last Admin: 10/28/18 06:00 Dose: 125 mcg Diltiazem HCl (Cardizem) 10 mg IVPUSH Q6H PRN PRN Reason: Tachycardia Last Admin: 10/26/18 20:22 Dose: 10 mg Diltiazem HCl (Cardizem) 10 mg IVPUSH Q4H PRN PRN Reason: Tachycardia Last Admin: 10/27/18 15:20 Dose: 10 mg Diltiazem HCl (Cardizem Cd) 180 mg PO ONETIME ONE Stop: 10/27/18 09:12 Last Admin: 10/27/18 09:38 Dose: 180 mg Glycopyrrolate (Seebri Neohaler) 0 mcg IH BID [facility] Hydromorphone HCl (Dilaudid) 0.5 mg IVPUSH ONETIME ONE Stop: 10/26/18 14:45 Last Admin: 10/26/18 14:59 Dose: 0.5 mg Lactated Ringer's (Ringers, Lactated) 500 mls @ 999 mls/hr IV .BOLUS ONE Stop: 10/26/18 14:25 Last Admin: 10/26/18 14:12 Dose: 999 mls/hr Ceftriaxone Sodium 2 gm/ (Sodium Chloride) 100 mls @ 200 mls/hr IV NOW STA Stop: 10/26/18 15:12 Last Admin: 10/26/18 15:00 Dose: 200 mls/hr Lactated Ringer's (Ringers, Lactated) 1,000 mls @ 125 mls/hr IV ASDIRECTED [facility] Last Admin: 10/26/18 16:55 Dose: 125 mls/hr Magnesium Sulfate 2 gm/ Premix 50 mls @ 50 mls/hr IV ONETIME ONE Stop: 10/26/18 19:14 Last Admin: 10/26/18 18:27 Dose: 50 mls/hr Potassium Chloride 10 meq/ (Premix) 100 mls @ 100 mls/hr IV Q1H [facility] Stop: 10/26/18 23:29 Last Admin: 10/26/18 20:14 Dose: Not Given Levofloxacin/Dextrose 750 mg/ (Premix) 150 mls @ 100 mls/hr IV Q24H [facility] Last Admin: 10/26/18 20:15 Dose: Not Given Piperacillin Sod/Tazobactam (Sod 4.5 gm/ Sodium Chloride) 100 mls @ 25 mls/hr IV Q8H [facility] Last Admin: 10/31/18 04:37 Dose: 25 mls/hr Piperacillin Sod/Tazobactam (Sod 4.5 gm/ Sodium Chloride) 100 mls @ 200 mls/hr IV ONETIME ONE Stop: 10/26/18 20:29 Last Admin: 10/26/18 20:33 Dose: 200 mls/hr Magnesium Sulfate/Dextrose 1 (gm/ Premix) 100 mls @ 100 mls/hr IV ONETIME ONE Stop: 10/26/18 19:49 Last Admin: 10/26/18 20:01 Dose: Not Given Levofloxacin/Dextrose 750 mg/ (Premix) 150 mls @ 100 mls/hr IV Q24H [facility] Last Admin: 10/27/18 20:22 Dose: 100 mls/hr Aminophylline 250 mg/ Dextrose (/Water) 60 mls @ 6.84 mls/hr IV ONETIME ONE Stop: 10/27/18 06:46 Last Admin: 10/27/18 01:13 Dose: Not Given Aminophylline 250 mg/ Sodium (Chloride) 60 mls @ 6.84 mls/hr IV ONETIME ONE Stop: 10/27/18 08:01 Last Admin: 10/26/18 23:27 Dose: 0.5 mg/kg/hr, 6.84 mls/hr Diltiazem HCl 125 mg/ Sodium (Chloride) 125 mls @ 5 mls/hr IV TITRATE SHAUN; Protocol Last Titration: 10/28/18 10:06 Dose: Infused Aminophylline 250 mg/ Sodium (Chloride) 60 mls @ 180 mls/hr IV ONETIME ONE Stop: 10/27/18 19:19 Last Admin: 10/27/18 19:53 Dose: 180 mls/hr Sodium Chloride (Normal Saline) Confirm Administered Dose 100 mls @ as directed .ROUTE .STK-MED ONE Stop: 10/28/18 01:06 Last Admin: 10/28/18 01:15 Dose: Not Given Sodium Chloride (Normal Saline) 500 mls @ 999 mls/hr IV .BOLUS ONE Stop: 10/28/18 08:17 Last Admin: 10/28/18 08:40 Dose: 999 mls/hr Sodium Chloride (Normal Saline) 1,000 mls @ 50 mls/hr IV ASDIRECTED [facility] Last Admin: 11/02/18 17:05 Dose: 50 mls/hr Levofloxacin/Dextrose 750 mg/ (Premix) 150 mls @ 100 mls/hr IV Q48H [facility] Last Admin: 10/29/18 20:11 Dose: 100 mls/hr Ceftriaxone Sodium 2 gm/ (Sodium Chloride) 100 mls @ 200 mls/hr IV Q12H [facility] Last Admin: 10/30/18 15:34 Dose: Not Given Ceftriaxone Sodium 2 gm/ (Sodium Chloride) 100 mls @ 200 mls/hr IV Q12H [facility] Last Admin: 11/04/18 05:19 Dose: 200 mls/hr Magnesium Sulfate 2 gm/ Premix 50 mls @ 25 mls/hr IV ONETIME ONE Stop: 11/03/18 12:11 Last Admin: 11/03/18 10:52 Dose: 25 mls/hr Ipratropium [place] (Atrovent) 0.5 mg NEB BID [facility] Last Admin: 10/30/18 09:52 Dose: 0.5 mg Levalbuterol HCl (Xopenex) 1.25 mg NEB Q6H PRN PRN Reason: SOB/Dyspnea Last Admin: 10/30/18 03:42 Dose: 1.25 mg Levalbuterol HCl (Xopenex) 1.25 mg NEB BID [facility] Last Admin: 10/30/18 10:13 Dose: Not Given Levalbuterol HCl (Xopenex) 1.25 mg NEB QID [facility] Last Admin: 10/30/18 10:24 Dose: 1.25 mg Lorazepam (Ativan) 1 mg IVPUSH ONETIME ONE Stop: 10/26/18 13:57 Last Admin: 10/26/18 14:12 Dose: 1 mg Lorazepam (Ativan) 0.5 mg IVPUSH ONETIME ONE Stop: 10/26/18 16:40 Last Admin: 10/26/18 16:54 Dose: 0.5 mg Magnesium Sulfate (Pharmacy To Dose - Magnesium Replacement) 1 dose .XX ASDIRECTED [facility] Methylprednisolone Sodium Succinate (Solu-Medrol) 125 mg IVPUSH ONETIME ONE Stop: 10/26/18 14:45 Last Admin: 10/26/18 15:00 Dose: 125 mg Methylprednisolone Sodium Succinate (Solu-Medrol) 80 mg IVPUSH Q8H [facility] Last Admin: 10/30/18 05:01 Dose: 80 mg Methylprednisolone Sodium Succinate (Solu-Medrol) 125 mg IVPUSH Q8H [facility] Last Admin: 11/01/18 04:24 Dose: 125 mg Methylprednisolone Sodium Succinate (Solu-Medrol) 125 mg IVPUSH ONETIME ONE Stop: 11/01/18 17:01 Last Admin: 11/01/18 16:58 Dose: 125 mg Methylprednisolone Sodium Succinate (Solu-Medrol) 80 mg IVPUSH Q12H [facility] Stop: 11/02/18 20:00 Last Admin: 11/02/18 17:10 Dose: 80 mg Metoprolol Tartrate (Lopressor) 5 mg IVPUSH Q4H PRN PRN Reason: Tachycardia Last Admin: 10/26/18 19:11 Dose: 5 mg Metoprolol Tartrate (Lopressor) 25 mg PO BID [facility] Last Admin: 10/27/18 08:30 Dose: Not Given Nystatin (Mycostatin) 5 ml PO QID PRN PRN Reason: thrush Potassium Chloride (Pharmacy To Dose - Potassium Replacement) 1 dose .XX ASDIRECTED [facility] Potassium Chloride (Klor-Con M20) 40 meq PO ONETIME ONE Stop: 10/28/18 09:01 Last Admin: 10/28/18 08:51 Dose: 40 meq Potassium Chloride (Klor-Con M20) 40 meq PO BID [facility] Stop: 11/03/18 21:01 Last Admin: 11/03/18 08:55 Dose: 40 meq Theophylline (Theophylline Anhydrous) 300 mg PO DAILY [facility] Last Admin: 10/27/18 08:32 Dose: 300 mg Theophylline (Theophylline Anhydrous) 300 mg PO BID [facility] Last Admin: 10/27/18 20:32 Dose: 300 mg - Exam Quality Assessment: Reports: Supplemental Oxygen, DVT Prophylaxis General: Reports: Alert, Oriented, Cooperative, No Acute Distress HEENT: Reports: Pupils Equal, Pupils Reactive, EOMI Neck: Reports: Trachea Midline, No JVD Lungs: Reports: Normal Respiratory Effort, Decreased Breath Sounds, Rhonchi, Wheezing Cardiovascular: Reports: Regular Rate, Regular Rhythm GI/Abdominal Exam: Normal Bowel Sounds, Soft, Non-Tender, No Organomegaly, No Distention (Female) Exam: Deferred Rectal (Female) Exam: Deferred Back Exam: Reports: Normal Inspection Extremities: Normal Inspection, Non-Tender, Normal Capillary Refill Skin: Reports: Warm Neurological: Reports: No New Focal Deficit, Normal Speech Psy/Mental Status: Reports: Alert, Normal Affect, Normal Mood
[2018-11-04 13:30] VITALS: BP 144/80
[2018-11-04] MEDS ORDERED: Cephalexin 500 MG Cap PO SCH (16:00)
[2018-11-04] MEDS ORDERED: predniSONE 10 MG Tab PO SCH (16:00)
== END 2018-11-04 17:46 | disposition home health service (06) | DRG 193 ==
LOC: JD.ED 13:42 → JD.MS 16:41 → JD.ICU 10-27 16:40 → JD.MS 10-31 20:20 → JD.ICU 10-31 21:23
PROVIDERS: ADMIT Internal Medicine; ATTEND Internal Medicine
PROC: 5A09557 Assistance with Respiratory Ventilation, Greater than 96 Consecutive Hours, Continuous Positive Airway Pressure (ICD-10-PCS; principal; 2018-10-29)
DX: J13 Pneumonia due to Streptococcus pneumoniae (principal); J18.9 Pneumonia, unspecified organism; J96.22 Acute and chronic respiratory failure with hypercapnia; J96.21 Acute and chronic respiratory failure with hypoxia; J44.0 Chronic obstructive pulmonary disease with (acute) lower respiratory infection; J44.1 Chronic obstructive pulmonary disease with (acute) exacerbation; J15.8 Pneumonia due to other specified bacteria; R00.0 Tachycardia, unspecified; F41.9 Anxiety disorder, unspecified; F32.9 Major depressive disorder, single episode, unspecified; T48.6X5A Adverse effect of antiasthmatics, initial encounter; I10 Essential (primary) hypertension; I27.20 Pulmonary hypertension, unspecified; M19.90 Unspecified osteoarthritis, unspecified site; M81.0 Age-related osteoporosis without current pathological fracture; M54.9 Dorsalgia, unspecified; G43.909 Migraine, unspecified, not intractable, without status migrainosus; H54.7 Unspecified visual loss; R32 Unspecified urinary incontinence; R68.83 Chills (without fever); R53.1 Weakness; R51 Headache; R06.02 Shortness of breath; R05 Cough; R53.83 Other fatigue; R06.2 Wheezing; F41.8 Other specified anxiety disorders; Z90.710 Acquired absence of both cervix and uterus; Z96.619 Presence of unspecified artificial shoulder joint; Z86.010 Personal history of colon polyps; Z87.442 Personal history of urinary calculi; Z87.891 Personal history of nicotine dependence; Z99.81 Dependence on supplemental oxygen; Z79.899 Other long term (current) drug therapy; Z87.01 Personal history of pneumonia (recurrent); Z51.5 Encounter for palliative care; Z66 Do not resuscitate
CPT/HCPCS: 36415; 36600; 71046; 80053; 82803; 83605; 83735; 85007; 85027; 86140; 86738; 87040 ×2; 87070; 87077; 87181; 87184; 87205; 87804 ×2; 94640 ×3; 96365; 96375; 99285; J0696; J1170; J2060; J2930; J7030; J7120; 51701; 71045; 71045-26; 80048; 80198; 85025; 87486; 87581; 87632; 87798; 87899; 93005; 93306; 94660; 94668; 94760; 94761; 94762; 97110-GO; 97116-GP; 97161-GP; 97162-GP; 97167-GO; 97530-GO; 97530-GP; 97535-GO; 99284; A9270-GY; J0280; J0360; J1160; J1650; J1956; J2270; J2405; J2543; J2920; J3475; J3490; J7040; J7050; J7612-GY; J7620-GY

== ENCOUNTER 2019-12-14 20:25 | Inpatient (IN) | payer MEDICARE, MEDICAID ==
--- NOTE | 2019-12-14 20:32 | EDM.PDOC ---
ED HPI GENERAL MEDICAL PROBLEM - General Chief Complaint: Respiratory Problem Stated Complaint: [facility] Time Seen by Provider: 12/14/19 20:26 Source of Information: Reports: Patient, EMS History Limitations: Reports: Respiratory Distress (Or respiratory distress. Patient is obtunded) - History of Present Illness INITIAL COMMENTS - FREE TEXT/NARRATIVE: 54-year-old female presents to the ED per [facility] due to severe troubles breathing. Patient has end-stage COPD and is on oxygen at 4-1/2 L/min at all times at home. When paramedics arrived they found her PO2 was only 65 but she was also vasoconstricted. They placed her on a nonrebreather mask at 10 L/min with brought her sats up into the 90s. Should not is so dyspneic that she can only speak in one-word sentences. She is very cachectic in appearance. She is on numerous medications for pulmonary disorder. Has a chronic cough but denies bringing up any sputum or blood as of recent. He states she has not eaten at all today due to dyspnea. She has been gradually getting worse apparently over the last 4 to 5 days. Unclear if she has any history of congestive heart failure. Onset: Gradual Onset Date: 12/10/19 Duration: Day(s):, Constant, Getting Worse Location: Reports: Chest (Dyspnea even at rest a week at present she cannot walk.) Quality: Reports: Other Severity: Severe (Severe dyspnea) Improves with: Reports: None Worsens with: Reports: Movement Context: Denies: Activity, Exercise, Lifting, Sick Contact, Trauma, Other Associated Symptoms: Reports: Confusion (She does appear somewhat confused and is able to only speak in one-word sentences.), Cough, cough w sputum, Loss of Appetite, Malaise (Nasal sputum production.), Shortness of Breath ([place]), Weakness (Generalized severe weakness). Denies: Nausea/Vomiting Treatments [employer]: Reports: Other (see below) (Only her regular medicines.) - Related Data Allergies Allergy/AdvReac Type Severity Reaction Status Date / Time No Known Allergies Allergy Verified 10/26/18 13:53 Home Meds: Home Meds Budesonide/Formoterol Fumarate [Symbicort 80-4.5 MCG] 2 puff IH BID 02/25/14 [ History] Triamterene/Hydrochlorothiazid [Triamterene-HCTZ 37.5-25 MG] 1 each PO DAILY # 30 capsule 04/23/17 [Rx] Mirtazapine [Remeron] 30 mg PO BEDTIME 08/11/17 [History] QUEtiapine Fumarate [Seroquel] 50 mg PO BEDTIME 08/11/17 [History] ALPRAZolam [Xanax] 1 mg PO BID 10/11/17 [History] Albuterol [Proair HFA] 2 puff INH Q4HR PRN 12/01/17 [History] Hydrocodone/Acetaminophen [Hydrocodon-Acetaminophn 10-325] 10 - 325 mg PO Q6H PRN 12/26/17 [History] guaiFENesin [Mucinex] 1,200 mg PO BID #30 tab.er 12/31/17 [Rx] Nystatin [Mycostatin] 5 ml PO QID PRN 04/24/18 [History] Roflumilast [Daliresp] 500 mg PO DAILY 04/24/18 [History] Tiotropium Belcher [Spiriva Respimat] 5 mcg INH DAILY 04/24/18 [History] Magnesium Oxide 500 mg PO DAILY 10/26/18 [History] Metoprolol Tartrate [Lopressor] 50 mg PO Q12H #60 tablet 11/04/18 [Rx] cephALEXin [Keflex] 500 mg PO Q8H #15 cap 11/04/18 [Rx] predniSONE 40 mg PO .TAPER #30 tablet 11/04/18 [Rx] Past Medical History HEENT History: Reports: Impaired Vision Cardiovascular History: Reports: Hypertension, Other (See Below) Respiratory History: Reports: Asthma, Bronchitis, Recurrent, COPD, Pneumonia, Recurrent Other Respiratory History: end stage COPD, pt is Oxygen dependent Gastrointestinal History: Reports: Colon Polyp Genitourinary History: Reports: Renal Calculus, Urinary Incontinence FRONT DESK LEAD History: Reports: Musculoskeletal History: Reports: Arthritis, Osteoporosis Other Musculoskeletal History: c/o back pain Neurological History: Reports: Migraines Psychiatric History: Reports: Anxiety, Depression Endocrine/Metabolic History: Reports: Osteoporosis Hematologic History: Reports: None - Infectious Disease History Infectious Disease History: Reports: Chicken Pox - Past Surgical History HEENT Surgical History: Reports: Oral Surgery Female Surgical History: Reports: D&C, Hysterectomy Musculoskeletal Surgical History: Reports: Shoulder Replacement Dermatological Surgical History: Reports: None Social & Family History - Family History Family Medical History: Noncontributory - Caffeine Use Caffeine Use: Reports: Soda Other Caffeine Use: 2 cans/day - Living Situation & Occupation Living situation: Reports: Single, Alone Occupation: Disabled ED ROS GENERAL - Review of Systems Review Of Systems: See Below Constitutional: Reports: Malaise, Weakness, Fatigue, Decreased Appetite, Weight Loss. Denies: Fever, Chills HEENT: Reports: No Symptoms, Other Respiratory: Reports: Shortness of Breath, Wheezing, Cough. Denies: Pleuritic Chest Pain, Sputum, Hemoptysis Cardiovascular: Reports: Blood Pressure Problem, Dyspnea on Exertion, Lightheadedness. Denies: Chest Pain, Claudication, Edema, Orthopnea Endocrine: Reports: Fatigue (On a clinical) GI/Abdominal: Reports: Constipation, Decreased Appetite : Reports: No Symptoms Musculoskeletal: Reports: Back Pain, Joint Pain (Phonic severe pain in her right shoulder and upper extremity with open reduction internal fixation of severely fractured humerus in the past. This gives her chronic pain) Skin: Reports: No Symptoms Neurological: Reports: Confusion, Dizziness, Difficulty Walking, Weakness (Can want not walk alone today.) Psychiatric: Reports: No Symptoms Hematologic/Lymphatic: Reports: No Symptoms Immunologic: Reports: No Symptoms ED EXAM, GENERAL - Physical Exam Exam: See Below Exam Limited By: Respiratory Distress (Or respiratory distress. Can only speak in one-word sentences.) General Appearance: Lethargic, Severe Distress, Other (Temperature was registered at 36.2 although at home the paramedics felt she was much warmer and she was cuddled up in the warm blankets. Heart rate is 157 and sinus. Respiratory was 44/min with O2 sats of 6 percent according to paramedics upon arrival here at 4-1/2 L she is at 77. BP elevated 174 109) Eye Exam: Bilateral Eye: Normal Inspection Throat/Mouth: Other Head: Atraumatic (Tongue is dry and coated. She appears volume depleted), Normocephalic Neck: Normal Inspection, Supple, Non-Tender, Full Range of Motion. No: Carotid Bruit, Lymphadenopathy (L), Lymphadenopathy (R) Respiratory/Chest: Respiratory Distress (Severe tachypnea.), Decreased Breath Sounds (Creased breath sounds to the lower 50% of lung knight bilaterally.), Wheezing. No: Lungs Clear, Normal Breath Sounds, Rales, Rhonchi (Occasional expiratory wheeze.) Cardiovascular: No Edema, No Gallop, No Murmur, No Rub, Tachycardia, Other. No : Normal Peripheral Pulses Peripheral Pulses: 1+: Posterior Tibial (L) (Clinically has significant peripheral vascular disease. Feet are cool to touch.), Posterior Tibial (R), Dorsalis Pedis (L), Dorsalis Pedis (R) GI/Abdominal: Normal Bowel Sounds, Soft, Non-Tender, No Organomegaly, Pelvis Stable, Distended (Minimally distended intubated to percussion upper abdomen compatible with aerophagia.), Other (Typhoid abdomen.) Back Exam: Decreased Range of Motion, Other (Mild to moderate kyphosis thoracic spine.). No: CVA Tenderness (L), CVA Tenderness (R) Extremities: Normal Inspection, Other (Very limited range of motion of her right upper extremity after open reduction internal fixation of a severely fractured humerus. She has chronic pain in this limb and it hurts her to move it.) Neurological: Alert, Oriented, CN II-XII Intact. No: Normal Cognition (And able to ascertain as she can only speak in one-word sentences and appears somewhat confused likely due to hypercarbia.) Psychiatric: Flat Affect Skin Exam: Warm, Dry, Intact, Cyanosis Course - Vital Signs Last Recorded V/S: Last Vital Signs Temp 36.2 C 12/14/19 20:37 Pulse 155 H 12/14/19 20:37 Resp 44 H 12/14/19 20:37 BP 174/109 H 12/14/19 20:37 Pulse Ox 77 L 12/14/19 20:37 - Orders/Labs/Meds Orders: Active Orders 24 hr Category Date Time Status Patient Status [ADT] Routine ADT 12/14/19 21:58 Active Bedrest Bedside Commode [RC] ASDIRECTED Care 12/14/19 21:58 Active Cardiac Monitoring [RC] CONTINUOUS Care 12/14/19 22:00 Active EKG Documentation Completion [RC] STAT Care 12/14/19 20:28 Active Height and Weight [RC] DAILY Care 12/14/19 21:58 Active Intake and Output [RC] QSHIFT Care 12/14/19 22:00 Active Oxygen Therapy [RC] PRN Care 12/14/19 21:58 Active Pulse Oximetry [RC] CONTINUOUS Care 12/14/19 22:00 Active RT Aerosol Therapy [RC] ASDIRECTED Care 12/14/19 22:09 Active RT BiPAP/CPAP [RC] ASDIRECTED Care 12/14/19 21:15 Active VTE/DVT Education [RC] PER UNIT ROUTINE Care 12/14/19 21:58 Active Vital Signs [RC] Q4H Care 12/14/19 21:58 Active Nothing per Oral Now Diet [DIET] Diet 12/15/19 Breakfast Active Chest 1V Frontal [CR] Stat Exams 12/14/19 20:28 Taken BASIC METABOLIC PANEL,BMP [CHEM] AM Lab 12/15/19 05:11 Ordered CBC WITH AUTO DIFF [HEME] AM Lab 12/15/19 05:11 Ordered CULTURE BLOOD [BC] Stat Lab 12/14/19 21:00 Received CULTURE BLOOD [BC] Stat Lab 12/14/19 21:10 Received MAGNESIUM [CHEM] AM Lab 12/15/19 05:11 Ordered MYCOPLASMA PNEUMONIAE IGM AB [CHEM] Stat Lab 12/14/19 21:58 Ordered PHOSPHORUS [CHEM] AM Lab 12/15/19 05:11 Ordered PROCALCITONIN [REF] Stat Lab 12/14/19 21:58 Ordered RESPIRATORY PANEL PCR [MREF] Stat Lab 12/14/19 21:58 Ordered STREP PNEUMONIAE ANTIGEN [MREF] Stat Lab 12/14/19 21:58 Ordered URINALYSIS W/MICROSCOPIC [UA W/MICROSCOPIC] [URIN] Stat Lab 12/14/19 20:29 Ordered Azithromycin [Zithromax] 500 mg Med 12/14/19 22:15 Active Sodium Chloride 0.9% [Normal Saline] 250 ml IV Q24H Budesonide [Pulmicort] Med 12/15/19 06:00 Active 0.5 mg NEB BIDRT Enoxaparin [Lovenox] Med 12/15/19 09:00 Active 40 mg SUBCUT DAILY Ipratropium [Atrovent] Med 12/15/19 06:00 Active 0.5 mg NEB Q8HRRT Ketorolac [Toradol] Med 12/14/19 21:58 Active 15 mg IM Q6H PRN Morphine Med 12/14/19 21:58 Active 1 mg IVPUSH Q4H PRN Ondansetron [Zofran ODT] Med 12/14/19 21:58 Active 4 mg PO Q6H PRN Ondansetron [Zofran] Med 12/14/19 21:58 Active 4 mg IV Q6H PRN Sodium Chloride 0.9% [Normal Saline] 1,000 ml Med 12/14/19 20:30 Active IV ASDIRECTED cefTRIAXone [Rocephin] 2 gm Med 12/14/19 22:15 Active Sodium Chloride 0.9% [Normal Saline] 100 ml IV Q24H guaiFENesin [Mucinex] Med 12/15/19 09:00 Active 600 mg PO TID methylPREDNISolone Sod Succ [Solu-MEDROL] Med 12/14/19 22:00 Active 125 mg IVPUSH Q12H Blood Culture x2 Reflex Set [OM.PC] Stat Oth 12/14/19 20:29 Ordered Resuscitation Status Routine Resus Stat 12/14/19 21:58 Ordered Medication Orders Budesonide (Pulmicort) 0.5 mg NEB BIDRT [facility] Enoxaparin Sodium (Lovenox) 40 mg SUBCUT DAILY SHAUN Guaifenesin (Mucinex) 600 mg PO TID SHAUN Sodium Chloride (Normal Saline) 1,000 mls @ 150 mls/hr IV ASDIRECTED SHAUN Last Admin: 12/14/19 20:55 Dose: 150 mls/hr Azithromycin 500 mg/ Sodium (Chloride) 250 mls @ 250 mls/hr IV Q24H SHAUN Ceftriaxone Sodium 2 gm/ (Sodium Chloride) 100 mls @ 200 mls/hr IV Q24H SHAUN Ipratropium Belcher (Atrovent) 0.5 mg NEB Q8HRRT [facility] Ketorolac Tromethamine (Toradol) 15 mg IM Q6H PRN PRN Reason: Pain (moderate 4-6) Methylprednisolone Sodium Succinate (Solu-Medrol) 125 mg IVPUSH Q12H HSAUN Morphine Sulfate (Morphine) 1 mg IVPUSH Q4H PRN PRN Reason: Pain (severe 7-10) Stop: 12/15/19 22:06 Ondansetron HCl (Zofran Odt) 4 mg PO Q6H PRN PRN Reason: nausea, able to take PO Ondansetron HCl (Zofran) 4 mg IV Q6H PRN PRN Reason: Nausea/Vomiting Labs: Laboratory Tests 12/14/19 12/14/19 12/14/19 Range/Units 20:27 21:00 21:00 WBC 30.58 H (3.98-10.04) K/mm3 RBC 4.62 (3.98-5.22) M/mm3 Hgb 13.3 D (11.2-15.7) gm/dl Hct 42.2 (34.1-44.9) % MCV 91.3 (79.4-94.8) fl MCH 28.8 (25.6-32.2) pg MCHC 31.5 L (32.2-35.5) g/dl RDW Std Deviation 41.6 (36.4-46.3) fL Plt Count 437 H D (182-369) K/mm3 MPV 9.5 (9.4-12.3) fl Neutrophils % (Manual) 93 H (40-60) % Band Neutrophils % 0 (0-10) % Lymphocytes % (Manual) 4 L (20-40) % Atypical Lymphs % 0 % Monocytes % (Manual) 3 (2-10) % Eosinophils % (Manual) 0 L (0.7-5.8) % Basophils % (Manual) 0 L (0.1-1.2) Toxic Granulation Moderate Platelet Estimate Increased Plt Morphology Comment See note RBC Morph Comment Normal PT (9.7-12.0) SECONDS INR APTT (22-31) SECONDS Puncture Site Rt radial ABG pH 7.28 L (7.35-7.45) ABG pCO2 86.4 H* (35.0-45.0) mmHg ABG pO2 65.0 L (80.0-100.0) mmHg ABG HCO3 39.1 H (22.0-26.0) meq/L ABG O2 Saturation 85.7 L (96.0-97.0) % ABG Base Excess 8.6 H (-2-2.0) Johnny Test Positive A-a Gradient mmHg O2 Delivery Device Mask Oxygen Flow Rate 10.0 FiO2 0.00 L (21.00-100.00) % PEEP cmH20 Pressure Support cmH2O Sodium 139 (136-145) mEq/L Potassium 4.1 (3.5-5.1) mEq/L Chloride 92 L (98-107) mEq/L Carbon Dioxide 36 H (21-32) mEq/L Anion Gap 15.1 H (5-15) BUN 23 H (7-18) mg/dL Creatinine 0.9 (0.55-1.02) mg/dL Est Cr Clr Drug Dosing 70.80 mL/min Estimated GFR (MDRD) > 60 (>60) mL/min BUN/Creatinine Ratio 25.6 H (14-18) Glucose 107 H (74-106) mg/dL Lactic Acid (0.4-2.0) mmol/L Calcium 10.2 H D (8.5-10.1) mg/dL Magnesium 1.7 L (1.8-2.4) mg/dl Total Bilirubin 0.4 (0.2-1.0) mg/dL AST 11 L (15-37) U/L ALT 12 L (14-59) U/L Alkaline Phosphatase 113 (46-116) U/L Troponin I 0.084 H* (0.00-0.056) ng/mL C-Reactive Protein 30.4 H* (<1.0) mg/dL NT-Pro-B Natriuret Pep (0-125) pg/mL Total Protein 7.9 (6.4-8.2) g/dl Albumin 2.9 L (3.4-5.0) g/dl Globulin 5.0 gm/dL Albumin/Globulin Ratio 0.6 L (1-2) 12/14/19 12/14/19 12/14/19 Range/Units 21:00 21:10 21:10 WBC (3.98-10.04) K/mm3 RBC (3.98-5.22) M/mm3 Hgb (11.2-15.7) gm/dl Hct (34.1-44.9) % MCV (79.4-94.8) fl MCH (25.6-32.2) pg MCHC (32.2-35.5) g/dl RDW Std Deviation (36.4-46.3) fL Plt Count (182-369) K/mm3 MPV (9.4-12.3) fl Neutrophils % (Manual) (40-60) % Band Neutrophils % (0-10) % Lymphocytes % (Manual) (20-40) % Atypical Lymphs % % Monocytes % (Manual) (2-10) % Eosinophils % (Manual) (0.7-5.8) % Basophils % (Manual) (0.1-1.2) Toxic Granulation Platelet Estimate Plt Morphology Comment RBC Morph Comment PT 12.8 H (9.7-12.0) SECONDS INR 1.19 APTT 27 (22-31) SECONDS Puncture Site ABG pH (7.35-7.45) ABG pCO2 (35.0-45.0) mmHg ABG pO2 (80.0-100.0) mmHg ABG HCO3 (22.0-26.0) meq/L ABG O2 Saturation (96.0-97.0) % ABG Base Excess (-2-2.0) Johnny Test A-a Gradient mmHg O2 Delivery Device Oxygen Flow Rate FiO2 (21.00-100.00) % PEEP cmH20 Pressure Support cmH2O Sodium (136-145) mEq/L Potassium (3.5-5.1) mEq/L Chloride (98-107) mEq/L Carbon Dioxide (21-32) mEq/L Anion Gap (5-15) BUN (7-18) mg/dL Creatinine (0.55-1.02) mg/dL Est Cr Clr Drug Dosing mL/min Estimated GFR (MDRD) (>60) mL/min BUN/Creatinine Ratio (14-18) Glucose (74-106) mg/dL Lactic Acid 2.0 (0.4-2.0) mmol/L Calcium (8.5-10.1) mg/dL Magnesium (1.8-2.4) mg/dl Total Bilirubin (0.2-1.0) mg/dL AST (15-37) U/L ALT (14-59) U/L Alkaline Phosphatase (46-116) U/L Troponin I (0.00-0.056) ng/mL C-Reactive Protein (<1.0) mg/dL NT-Pro-B Natriuret Pep 5542 H (0-125) pg/mL Total Protein (6.4-8.2) g/dl Albumin (3.4-5.0) g/dl Globulin gm/dL Albumin/Globulin Ratio (1-2) //20 Range/Units 21:25 WBC (3.98-10.04) K/mm3 RBC (3.98-5.22) M/mm3 Hgb (11.2-15.7) gm/dl Hct (34.1-44.9) % MCV (79.4-94.8) fl MCH (25.6-32.2) pg MCHC (32.2-35.5) g/dl RDW Std Deviation (36.4-46.3) fL Plt Count (182-369) K/mm3 MPV (9.4-12.3) fl Neutrophils % (Manual) (40-60) % Band Neutrophils % (0-10) % Lymphocytes % (Manual) (20-40) % Atypical Lymphs % % Monocytes % (Manual) (2-10) % Eosinophils % (Manual) (0.7-5.8) % Basophils % (Manual) (0.1-1.2) Toxic Granulation Platelet Estimate Plt Morphology Comment RBC Morph Comment PT (9.7-12.0) SECONDS INR APTT (22-31) SECONDS Puncture Site Rt radial ABG pH 7.29 L (7.35-7.45) ABG pCO2 79.5 H* (35.0-45.0) mmHg ABG pO2 70.0 L (80.0-100.0) mmHg ABG HCO3 37.4 H (22.0-26.0) meq/L ABG O2 Saturation 89.4 L (96.0-97.0) % ABG Base Excess 8.0 H (-2-2.0) Johnny Test Positive A-a Gradient 131 mmHg O2 Delivery Device Bipap Oxygen Flow Rate FiO2 42.00 (21.00-100.00) % PEEP 6.0 cmH20 Pressure Support 12.0 cmH2O Sodium (136-145) mEq/L Potassium (3.5-5.1) mEq/L Chloride (98-107) mEq/L Carbon Dioxide (21-32) mEq/L Anion Gap (5-15) BUN (7-18) mg/dL Creatinine (0.55-1.02) mg/dL Est Cr Clr Drug Dosing mL/min Estimated GFR (MDRD) (>60) mL/min BUN/Creatinine Ratio (14-18) Glucose (74-106) mg/dL Lactic Acid (0.4-2.0) mmol/L Calcium (8.5-10.1) mg/dL Magnesium (1.8-2.4) mg/dl Total Bilirubin (0.2-1.0) mg/dL AST (15-37) U/L ALT (14-59) U/L Alkaline Phosphatase (46-116) U/L Troponin I (0.00-0.056) ng/mL C-Reactive Protein (<1.0) mg/dL NT-Pro-B Natriuret Pep (0-125) pg/mL Total Protein (6.4-8.2) g/dl Albumin (3.4-5.0) g/dl Globulin gm/dL Albumin/Globulin Ratio (1-2) Meds: Medications Generic Name Dose Route Start Last Admin Trade Name Freq PRN Reason Stop Dose Admin Budesonide 0.5 mg 12/15/19 06:00 Pulmicort NEB BIDRT SHAUN Enoxaparin Sodium 40 mg 12/15/19 09:00 Lovenox SUBCUT DAILY SHAUN Guaifenesin 600 mg 12/15/19 09:00 Mucinex PO TID SHAUN Sodium Chloride 1,000 mls @ 150 mls/hr 12/14/19 20:30 12/14/19 20:55 Normal Saline IV 150 mls/hr ASDIRECTED SHAUN Administration Azithromycin 500 mg/ Sodium 250 mls @ 250 mls/hr 12/14/19 22:15 Chloride IV Q24H SHAUN Ceftriaxone Sodium 2 gm/ 100 mls @ 200 mls/hr 12/14/19 22:15 Sodium Chloride IV Q24H SHAUN Ipratropium Belcher 0.5 mg 12/15/19 06:00 Atrovent NEB Q8HRRT SHAUN Ketorolac Tromethamine 15 mg 12/14/19 21:58 Toradol IM Q6H PRN Pain (moderate 4-6) Methylprednisolone Sodium Succinate 125 mg 12/14/19 22:00 Solu-Medrol IVPUSH Q12H SHAUN Morphine Sulfate 1 mg 12/14/19 21:58 Morphine IVPUSH 12/15/19 22:06 Q4H PRN Pain (severe 7-10) Ondansetron HCl 4 mg 12/14/19 21:58 Zofran Odt PO Q6H PRN nausea, able to take PO Ondansetron HCl 4 mg 12/14/19 21:58 Zofran IV Q6H PRN Nausea/Vomiting Discontinued Medications Generic Name Dose Route Start Last Admin Trade Name Freq PRN Reason Stop Dose Admin Hydromorphone HCl 0.25 mg 12/14/19 21:23 12/14/19 21:43 Dilaudid IVPUSH 12/14/19 21:24 0.25 mg ONETIME ONE Administration Ondansetron HCl 4 mg 12/14/19 21:22 12/14/19 21:43 Zofran IVPUSH 12/14/19 21:23 4 mg ONETIME ONE Administration - Radiology Interpretation Free Text/Narrative:: 54-year-old female with end-stage COPD presents to the ED per [facility] due to gradually worsening dyspnea over the last 4 days. No history of a fever. Apparently the cough is no worse than normal. She continues to smoke cigarettes by history. She is usually on 4-1/2 L of oxygen at all times at home. She came in on a nonrebreather mask at 10 L/min. When returned to the 4-1/2 L in the ED she was showing O2 sats of 77%. Initial ABGs done immediately to which she was placed on BiPAP/6 mmHg with O2 of 42% revealed a pH of 7.28 with a PCO2 of 86.4 and a PO2 of 65. She will have influenza screen done chest x-ray and septic work-up. Repeat ABGs and a half an hour - Re-Assessments/Exams Free Text/Narrative Re-Assessment/Exam: 12/14/19 20:49 O2 sats dropped to 90% on the BiPAP at 7.55. BP 157/81 heart rate remains sinus tachycardia at 157/min. Currently she is on BiPAP at 12 over 6 mmHg and at 42% O2 to achieve O2 sats of 90 to 91%. 12/14/19 21:34 second set of ABGs reveal mild improvement of the pH to 7.29 the PCO2 is dropped from 86-79.5 PO2 is increased from 65-70. This is maintaining O2 sats of 89 to 91% on the monitor. Influenza screen is reported as negative. 12/14/19 21:35 12/14/19 21:42 x-ray done portably reveals diffuse interstitial pulmonary fibrosis worse on the right side as compared to the left. There appears to be an increased infiltrate in the right lower lobe of the lung and cannot differentiate this from a pneumonia. There is no pleural effusion. Cardiac silhouette is normal. The upper apices of the lung knight are obscured as the patient has her chin on her anterior chest. Patient is complaining of severe pain in her right shoulder and is asking for analgesia. She was given Zofran 4 mg IV and 0.25 mg of Dilaudid IV so as not to suppress her respiratory drive. Dr. Camacho on-call hospitalist will see her in the ED. 12/14/19 22:15 Hematology reveals a elevated white count at 30.58. The differential is 93% neutrophils with no band cells reported. Hemoglobin is 13.3 with hematocrit of 42.2. Platelet count is elevated at 437 i.e. essential thrombo-cytosis. PT is 12.8 with an INR of 1.19 mildly auto anticoagulated. PTT is 27. Chemistry is pending 12/14/19 22:31Chemistry is now back showing a sodium of 139 and potassium of 4.1. Chloride is 92 with a bicarb of 36 a elevated. Anion gap is 15.1 with a BUN of 23 and a creatinine of 0.9. GFR remains greater than 60. Glucose 107 with a lactic acid of 2.0. Calcium is 10.2 slightly elevated magnesium slightly low at 1.7. Liver function is normal. Troponin I is 0.084 mildly elevated C-reactive protein markedly elevated at 30.4. BNP is elevated at 5542 and is the likely culprit in elevating her troponin I. Her protein is 7.9 with an albumin fraction slightly low at 2.9. Dr Camacho is aware of the findings of the labs and she will start her on antibiotics. It appears that she most likely has a right lower lobar pneumonia as a cause of her acute decompensation respiratory function. I believe the patient will be admitted to the intensive care unit with continued BiPAP. Departure - Departure Time of Disposition: 22:33 Disposition: Admitted As Inpatient 65 Condition: Critical Clinical Impression: End stage COPD, Congestive heart failure Respiratory failure with hypoxia and hypercapnia Qualifiers: Chronicity: acute on chronic Qualified Code(s): J96.21 - Acute and chronic respiratory failure with hypoxia; J96.22 - Acute and chronic respiratory failure with hypercapnia Pneumonia Qualifiers: Pneumonia type: due to unspecified organism Laterality: right Lung location: lower lobe of lung Qualified Code(s): J18.9 - Pneumonia, unspecified organism - Discharge Information *PRESCRIPTION DRUG MONITORING PROGRAM REVIEWED*: Not Applicable *COPY OF PRESCRIPTION DRUG MONITORING REPORT IN PATIENT MARA: Not Applicable Referrals: PCP,Unknown [Primary Care Provider] - Forms: ED Department Discharge Sepsis Event Note - Focused Exam Vital Signs: Vital Signs Temp Pulse Resp BP Pulse Ox 12/14/19 20:37 36.2 C 155 H 44 H 174/109 H 77 L Date Exam was Performed: 12/14/19 Time Exam was Performed: 22:31 - My Orders Last 24 Hours: My Active Orders 12/14/19 20:28 EKG Documentation Completion [RC] STAT Chest 1V Frontal [CR] Stat 12/14/19 20:29 URINALYSIS W/MICROSCOPIC [UA W/MICROSCOPIC] [URIN] Stat Blood Culture x2 Reflex Set [OM.PC] Stat 12/14/19 20:30 Sodium Chloride 0.9% [Normal Saline] 1,000 ml IV ASDIRECTED 12/14/19 21:00 CULTURE BLOOD [BC] Stat 12/14/19 21:10 CULTURE BLOOD [BC] Stat 12/14/19 21:15 RT BiPAP/CPAP [RC] ASDIRECTED - Assessment/Plan Last 24 Hours: My Active Orders 12/14/19 20:28 EKG Documentation Completion [RC] STAT Chest 1V Frontal [CR] Stat 12/14/19 20:29 URINALYSIS W/MICROSCOPIC [UA W/MICROSCOPIC] [URIN] Stat Blood Culture x2 Reflex Set [OM.PC] Stat 12/14/19 20:30 Sodium Chloride 0.9% [Normal Saline] 1,000 ml IV ASDIRECTED 12/14/19 21:00 CULTURE BLOOD [BC] Stat 12/14/19 21:10 CULTURE BLOOD [BC] Stat 12/14/19 21:15 RT BiPAP/CPAP [RC] ASDIRECTED
[2019-12-14] MEDS: Sodium Chloride 0.9% 1,000 ML IV SCH (20:55)
[2019-12-14] MEDS ORDERED: Ondansetron 4 MG/2 ML SDV IVPUSH ONE (21:22)
[2019-12-14] MEDS ORDERED: HYDROmorphone 0.5 MG/0.5 ML Syringe IVPUSH ONE (21:23)
[2019-12-14] MEDS ORDERED: Morphine 2 MG/ML SYRINGE IVPUSH PRN (21:58)
[2019-12-14] MEDS ORDERED: Ketorolac 30 MG/ML SDV IM PRN (21:58)
[2019-12-14] MEDS ORDERED: Ondansetron 4 MG Tab.DIS PO PRN (21:58)
[2019-12-14] MEDS ORDERED: Ondansetron 4 MG/2 ML SDV IV PRN (21:58)
--- NOTE | 2019-12-14 22:14 | PCM.HP.2 ---
H&P History of Present Illness - General Date of Service: 12/14/19 Admit Problem/Dx: Admission Diagnosis/Problem Admission Diagnosis/Problem Hypoxemia requiring supplemental oxygen - History of Present Illness Initial Comments - Free Text/Narative: Information obtained by chart review due to patient being obtunded 54-year-old female presents to the ED per [facility] due to severe troubles breathing. Patient has end-stage COPD and is on oxygen at 4-1/2 L/min at all times at home. When paramedics arrived they found her PO2 was only 65 but she was also vasoconstricted. They placed her on a nonrebreather mask at 10 L/min with brought her sats up into the 90s. Should not is so dyspneic that she can only speak in one-word sentences. She is very cachectic in appearance. She is on numerous medications for pulmonary disorder. Has a chronic cough but denies bringing up any sputum or blood as of recent. He states she has not eaten at all today due to dyspnea. She has been gradually getting worse apparently over the last 4 to 5 days. Unclear if she has any history of congestive heart failure. - Related Data Allergies/Adverse Reactions: Allergies Allergy/AdvReac Type Severity Reaction Status Date / Time No Known Allergies Allergy Verified 12/15/19 03:59 Home Medications: Home Meds Budesonide/Formoterol Fumarate [Symbicort 80-4.5 MCG] 2 puff IH BID 02/25/14 [ History] Triamterene/Hydrochlorothiazid [Triamterene-HCTZ 37.5-25 MG] 1 each PO DAILY # 30 capsule 04/23/17 [Rx] Mirtazapine [Remeron] 30 mg PO BEDTIME 08/11/17 [History] QUEtiapine Fumarate [Seroquel] 50 mg PO BEDTIME 08/11/17 [History] ALPRAZolam [Xanax] 1 mg PO BID 10/11/17 [History] Albuterol [Proair HFA] 2 puff INH Q4HR PRN 12/01/17 [History] Hydrocodone/Acetaminophen [Hydrocodon-Acetaminophn 10-325] 10 - 325 mg PO Q6H PRN 12/26/17 [History] guaiFENesin [Mucinex] 1,200 mg PO BID #30 tab.er 12/31/17 [Rx] Nystatin [Mycostatin] 5 ml PO QID PRN 04/24/18 [History] Roflumilast [Daliresp] 500 mg PO DAILY 04/24/18 [History] Tiotropium [place] [Spiriva Respimat] 5 mcg INH DAILY 04/24/18 [History] Magnesium Oxide 500 mg PO DAILY 10/26/18 [History] Metoprolol Tartrate [Lopressor] 50 mg PO Q12H #60 tablet 11/04/18 [Rx] cephALEXin [Keflex] 500 mg PO Q8H #15 cap 11/04/18 [Rx] predniSONE 40 mg PO .TAPER #30 tablet 11/04/18 [Rx] Past Medical History HEENT History: Reports: Impaired Vision Cardiovascular History: Reports: Hypertension, Other (See Below) Respiratory History: Reports: Asthma, Bronchitis, Recurrent, COPD, Pneumonia, Recurrent Other Respiratory History: end stage COPD, pt is Oxygen dependent Gastrointestinal History: Reports: Colon Polyp Genitourinary History: Reports: Renal Calculus, Urinary Incontinence EMERGENCY MEDICINE History: Reports: Musculoskeletal History: Reports: Arthritis, Osteoporosis Other Musculoskeletal History: c/o back pain Neurological History: Reports: Migraines Psychiatric History: Reports: Anxiety, Depression Endocrine/Metabolic History: Reports: Osteoporosis Hematologic History: Reports: None - Infectious Disease History Infectious Disease History: Reports: Chicken Pox - Past Surgical History HEENT Surgical History: Reports: Oral Surgery Female Surgical History: Reports: D&C, Hysterectomy Musculoskeletal Surgical History: Reports: Shoulder Replacement Dermatological Surgical History: Reports: None Social & Family History - Family History Family Medical History: Noncontributory - Tobacco Use Smoking Status *Q: Unknown Ever Smoked - Caffeine Use Caffeine Use: Reports: Soda Other Caffeine Use: 2 cans/day - Recreational Drug Use Other Recreational Drug Type: uanble to ask as pt can not talk at this time - Living Situation & Occupation Living situation: Reports: Single, Alone Occupation: Disabled H&P Review of Systems - Review of Systems: Review Of Systems: Unable To Obtain Reason Not Obtained: Obtunded Exam - Exam Exam: See Below - Vital Signs Vital Signs: Last Vital Signs Temp 97.2 F 12/14/19 20:37 Pulse 155 H 12/14/19 20:37 Resp 44 H 12/14/19 20:37 BP 174/109 H 03/05/20 20:37 Pulse Ox 77 L 12/14/19 20:37 Weight: 63.503 kg - Exam Quality Assessment: Supplemental Oxygen General: Obtunded, Other (Cachectic, bitemporal wasting, severe muscle wasting) Neck: Supple, +2 Carotid Pulse wo Bruit. No: Lymphadenopathy Lungs: Decreased Breath Sounds (severely diminished air entry with minimal respiratory effort), Crackles. No: Normal Respiratory Effort, Rhonchi, Rub Cardiovascular: Tachycardia. No: Systolic Murmur, Diastolic Murmur, Rubs, Gallop/S3, Gallop/S4 GI/Abdominal Exam: Normal Bowel Sounds, Soft. No: Distended, Guarding, Rigid, Rebound, Tender Back Exam: Other (obvious muscle wasting, minimal chest expansion) Extremities: Other (muscle wasting, cold, unable to palpate pulses but has capillary refill, although its slow) Skin: Dry, Cool Neuro Extensive - Mental Status: Other (barely nods yes or no to questions) - Patient Data Result Diagrams: 12/15/19 05:30 12/15/19 05:30 Sepsis Event Note - Evaluation Sepsis Screening Result: No Definite Risk - Focused Exam Vital Signs: Vital Signs Temp Pulse Resp BP Pulse Ox 12/14/19 20:37 97.2 F 155 H 44 H 174/109 H 77 L Date Exam was Performed: 12/15/19 Time Exam was Performed: 19:57 - Problem List (1) Leukocytosis SNOMED Code(s): 612706173, 670132131 ICD Code: D72.829 - ELEVATED WHITE BLOOD CELL COUNT, UNSPECIFIED Status: Acute Current Visit: Yes (2) Thrombocytosis SNOMED Code(s): 9504754 ICD Code: D47.3 - ESSENTIAL (HEMORRHAGIC) THROMBOCYTHEMIA Status: Acute Current Visit: Yes (3) Hypochloremia SNOMED Code(s): 49220535 ICD Code: E87.8 - OTH DISORDERS OF ELECTROLYTE AND FLUID BALANCE, NEC Status: Acute Current Visit: Yes (4) Hypoalbuminemia SNOMED Code(s): 929219896 ICD Code: E88.09 - OTH DISORDERS OF PLASMA-PROTEIN METABOLISM, NEC Status: Acute Current Visit: Yes (5) Elevated troponin SNOMED Code(s): 573061533, 829107301, 607243207 ICD Code: R79.89 - OTHER SPECIFIED ABNORMAL FINDINGS OF BLOOD CHEMISTRY Status: Acute Current Visit: Yes (6) Chronic respiratory acidosis SNOMED Code(s): 4539101 ICD Code: E87.2 - ACIDOSIS Status: Acute Current Visit: Yes (7) End stage COPD SNOMED Code(s): 481354801 ICD Code: J44.9 - CHRONIC OBSTRUCTIVE PULMONARY DISEASE, UNSPECIFIED Status : Acute Current Visit: Yes (8) Respiratory failure with hypoxia and hypercapnia SNOMED Code(s): 47074269 ICD Code: J96.91 - RESPIRATORY FAILURE, UNSPECIFIED WITH HYPOXIA; J96.92 - RESPIRATORY FAILURE, UNSPECIFIED WITH HYPERCAPNIA Status: Acute Current Visit: Yes Qualifiers: Chronicity: acute on chronic Qualified Code(s): J96.21 - Acute and chronic respiratory failure with hypoxia; J96.22 - Acute and chronic respiratory failure with hypercapnia (9) COPD exacerbation SNOMED Code(s): 288051453, 895358377 ICD Code: J44.1 - CHRONIC OBSTRUCTIVE PULMONARY DISEASE W (ACUTE) EXACERBATION Status: Acute Priority: High Current Visit: No (10) Hypomagnesemia SNOMED Code(s): 963942610 ICD Code: E83.42 - HYPOMAGNESEMIA Status: Acute Current Visit: No (11) Tachycardia SNOMED Code(s): 6879732 ICD Code: R00.0 - TACHYCARDIA, UNSPECIFIED Status: Acute Current Visit: Yes Problem List Initiated/Reviewed/Updated: Yes Assessment/Plan Comment:: PLAN BY SYSTEMS Neurologic: Monitor mental status Respiratory: Continue BiPAP ABGs in 2h Scheduled DuoNebs and Budesonide IV Solumedrol Cardiovascular: Continue dopamine, wean off as tolerated, goal HR > 60 MAP goal > 65, if drops start norepinephrine Hourly vital signs Renal and Electrolytes: Insert Pinto catheter Monitor urine output, goal >30ml/hh Repeat labs in AM GI and hepatology: NPO for now Endocrine and Metabolism: Glucose checks every 6 hours Hypoglycemia protocol Infectious Disease Tamiflu, Rocephin and Azithromycin Respiratory panel, step pneumo and mycoplasma serology Procalcitonin Monitor temp Panculture if febrile Hematology, Oncology and Immune system: No signs of active bleeding Goal Hb >7 PROPHYLAXIS DVT- Lovenox GI- not indicated CODE STATUS: FULL CODE DISPOSITION: Patient will be admitted to the ICU for respiratory support with BIPAP and scheduled nebulizations as well as IV steroids - Mortality Measure Prognosis:: Poor
[2019-12-14] MEDS ORDERED: cefTRIAXone 2 GM in Sodium Chloride 0.9% 100 ML IV SCH ×2 (22:15→23:00)
[2019-12-14] MEDS: methylPREDNISolone Sodium Succinate 125 MG/2 ML SDV IVPUSH SCH (22:41)
[2019-12-14] MEDS: Azithromycin 500 MG in Sodium Chloride 0.9% 250 ML IV SCH (23:13)
[2019-12-14] MEDS ORDERED: Etomidate 2 MG/ML 20 ML SDV IVPUSH ONE (23:40)
[2019-12-14] MEDS ORDERED: Succinylcholine 200 MG/10 ML MDV ONE (23:40)
[2019-12-15] MEDS ORDERED: propofoL 100 ML ONE (00:01)
--- NOTE | 2019-12-15 00:05 | PCM.PRNOTE ---
- Free Text/Narrative Note: Endotracheal Intubation Date: 12/15/2019 Time: 00:44 Indication: Inability to preserve airway Attending: Lori Camacho MD A time-out was completed verifying correct patient, procedure, site, positioning , and special equipment if applicable. The patient was placed in a flat position. Sedation was obtained using Etomidate and Succinylcholine. The patient was easily ventilated using an ambu bag. The MAC 3 BLADE was used and inserted into the oropharynx at which time there was a Grade 1 view of the vocal cords. A 7.5-thai endotracheal tube was inserted and visualized going through the vocal cords. The stylette was removed. Colorimetric change was visualized on the CO2 meter. Breath sounds were heard in both lung knight equally. The endotracheal tube was placed at 28 cm, measured at the teeth. A chest x-ray was ordered to assess for pneumothorax and verify endotracheal tube placement. Estimated Blood Loss: none The patient tolerated the procedure well and there were no complications.
[2019-12-15] MEDS: propofoL 100 ML IV SCH ×2 (00:10→15:05)
[2019-12-15] MEDS ORDERED: Norepinephrine 4 MG in Dextrose 5% in Water 246 ML IV SCH ×2 (01:15)
[2019-12-15] MEDS: Sodium Chloride 0.9% 1,000 ML IV SCH ×4 (03:34→23:20)
[2019-12-15] MEDS: Ipratropium 0.02% 0.5 MG/2.5 ML Neb Soln NEB SCH ×3 (05:53→21:16)
[2019-12-15] MEDS: Budesonide 0.5 MG/2 ML Neb Susp NEB SCH ×2 (05:53→21:16)
[2019-12-15] MEDS ORDERED: Metoprolol Tartrate 5 MG/5 ML SDV IVPUSH ONE (06:05)
[2019-12-15] MEDS: Pantoprazole 40 MG Vial IVPUSH SCH (06:16)
[2019-12-15] MEDS ORDERED: Ketorolac 15 MG/ML SDV IM PRN (07:18)
--- NOTE | 2019-12-15 07:50 | CR ---
Chest: Portable view of the chest was obtained (11:46 PM). Comparison: Prior chest study performed earlier on the same day (9:19 PM). Right shoulder prosthesis is seen. Endotracheal tube now noted. Tip of the endotracheal tube is within the proximal left mainstem bronchus. Nodular density noted with left midlung most likely due to atelectasis. Previous study showed mild increased density within the right upper chest which is felt to be stable. Lungs are hyperinflated. Diffuse interstitial changes seen. Impression: 1. Tip of endotracheal tube within the proximal left mainstem bronchus. 2. Chronic interstitial change and emphysematous change. 3. Mild increased density within the right upper chest is stable from most recent exam. Mild left midlung atelectasis. Diagnostic code #3 This report was dictated in [place] Standard Time I agree with preliminary report from [facility], finalized on 12/15/19, 1:44 AM Central Time
--- NOTE | 2019-12-15 07:50 | CR ---
Chest: Frontal view of the chest was obtained (12:52 AM). Comparison: Prior chest x-ray performed earlier on the same day (11:46 PM). Endotracheal tube has been repositioned. Tip now lies between the clavicles and elizabeth in satisfactory position. Nasogastric tube is seen coursing off the inferior edge of the film into the region of the stomach. Chronic interstitial changes seen with emphysematous change. Nodular area of presumed atelectasis remains within the left midlung. Right upper lung density is less prominent and may have represented atelectasis on prior study. Impression: 1. Emphysematous change. Nodular area of atelectasis with the left midlung. 2. Satisfactory position of endotracheal tube and nasogastric tube. 3. Chronic interstitial change and emphysematous change. Diagnostic code #3 This report was dictated in [place] Standard Time I agree with preliminary report from [facility], finalized on 12/15/19, 2:23 AM Central Time
[2019-12-15] MEDS ORDERED: Magnesium Sulfate/Water 0 ML ONE (07:55)
[2019-12-15] MEDS ORDERED: Magnesium Sulfate/Water 2 GM in Premix Bag 1 BAG IV ONE (08:00)
--- NOTE | 2019-12-15 08:00 | CR ---
Chest: Portable view of the chest was obtained. Comparison: Prior chest x-ray of 10/31/18. Heart size and mediastinum are within normal limits. Blunting of the lateral left costophrenic angle are seen believed to be chronic. Lungs are hyperinflated compatible with emphysematous change. Slight parenchymal density noted within the right upper chest either due to atelectasis or possibly minimal area of pneumonia or change from aspiration. Right shoulder prosthesis is seen. Impression: 1. Findings as noted above. Diagnostic code #3 This report was dictated in [place] Standard Time
[2019-12-15] MEDS: Enoxaparin 40 MG/0.4 ML Syringe SUBCUT SCH (08:09)
[2019-12-15] MEDS: guaiFENesin 600 MG Tab.ER PO SCH ×3 (08:35→20:24)
[2019-12-15] MEDS ORDERED: Midazolam 50 MG in Sodium Chloride 0.9% 40 ML IV SCH ×4 (08:45)
--- NOTE | 2019-12-15 08:54 | PCM.PN ---
- General Info Date of Service: 12/15/19 Subjective Update: OVERNIGHT EVENTS AND INTERVAL CHANGES Drips: Propofol Versed Vital signs: BP 96-174/74-109 HR 140-155 Tmax 98.2 Sat > 93% Labs: WBC 30.5--> 14.9 Hb 13.3--> 11.8 Plt 437-->299 Cultures: Blood x2 negative day 1 Sputum negative day 1 Influenza screen swab negative Mechanical Ventilation: Vt 300 Rate 18x' PIP 18 Pmean 11 FiO2 40% I/Os: NG tube- 100 UO- 170 Balance +1,088 Diet: NPO - Patient Data Vitals - Most Recent: Last Vital Signs Temp 98.1 F 12/15/19 08:00 Pulse 116 H 12/15/19 08:00 Resp 23 H 12/15/19 08:00 BP 91/69 12/15/19 08:00 Pulse Ox 96 12/15/19 08:04 Weight - Most Recent: 48.988 kg - Exam Quality Assessment: Supplemental Oxygen, Urine Catheter, DVT Prophylaxis General: Sedated HEENT: Pupils Equal, Pupils Reactive. No: Mucous Membr. Moist/[place] Neck: Trachea Midline, No JVD, No Thyromegaly, +2 Carotid Pulse wo Bruit. No: Lymphadenopathy Lungs: Decreased Breath Sounds, Crackles, Rales, Rhonchi, Wheezing. No: Rub, Stridor Cardiovascular: Regular Rhythm, Tachycardia. No: Murmurs, Gallops, Rubs GI/Abdominal Exam: Normal Bowel Sounds, Soft, Non-Tender. No: Distended, Guarding, Rigid, Rebound Extremities: Normal Inspection, No Pedal Edema, Slow Capillary Refill Skin: Warm, Dry, Intact Sepsis Event Note - Evaluation Sepsis Screening Result: Severe Sepsis Risk - Focused Exam Date Exam was Performed: 12/16/19 Time Exam was Performed: 19:13 - Problem List & Annotations (1) Chronic respiratory acidosis SNOMED Code(s): 9794517 Code(s): E87.2 - ACIDOSIS Status: Acute Current Visit: Yes (2) COPD exacerbation SNOMED Code(s): 664276967 Code(s): J44.1 - CHRONIC OBSTRUCTIVE PULMONARY DISEASE W (ACUTE) EXACERBATION Status: Acute Current Visit: No (3) End stage COPD SNOMED Code(s): 439487947 Code(s): J44.9 - CHRONIC OBSTRUCTIVE PULMONARY DISEASE, UNSPECIFIED Status : Acute Current Visit: Yes (4) Hypoalbuminemia SNOMED Code(s): 329406880 Code(s): E88.09 - OTH DISORDERS OF PLASMA-PROTEIN METABOLISM, NEC Status: Acute Current Visit: Yes (5) Hypochloremia SNOMED Code(s): 78450662 Code(s): E87.8 - OTH DISORDERS OF ELECTROLYTE AND FLUID BALANCE, NEC Status : Acute Current Visit: Yes (6) Hypomagnesemia SNOMED Code(s): 005956061 Code(s): E83.42 - HYPOMAGNESEMIA Status: Acute Priority: High Current Visit: No (7) Leukocytosis SNOMED Code(s): 345657380, 852268697 Code(s): D72.829 - ELEVATED WHITE BLOOD CELL COUNT, UNSPECIFIED Status: Acute Current Visit: Yes (8) Pneumonia SNOMED Code(s): 656702644 Code(s): J18.9 - PNEUMONIA, UNSPECIFIED ORGANISM Status: Acute Current Visit: Yes Qualifiers: Pneumonia type: due to unspecified organism Laterality: right Lung location: lower lobe of lung Qualified Code(s): J18.9 - Pneumonia, unspecified organism (9) Respiratory failure with hypoxia and hypercapnia SNOMED Code(s): 89305912 Code(s): J96.91 - RESPIRATORY FAILURE, UNSPECIFIED WITH HYPOXIA; J96.92 - RESPIRATORY FAILURE, UNSPECIFIED WITH HYPERCAPNIA Status: Acute Current Visit: Yes Qualifiers: Chronicity: acute on chronic Qualified Code(s): J96.21 - Acute and chronic respiratory failure with hypoxia; J96.22 - Acute and chronic respiratory failure with hypercapnia (10) Tachycardia SNOMED Code(s): 4391263 Code(s): R00.0 - TACHYCARDIA, UNSPECIFIED Status: Acute Current Visit: Yes (11) Thrombocytosis SNOMED Code(s): 2087517 Code(s): D47.3 - ESSENTIAL (HEMORRHAGIC) THROMBOCYTHEMIA Status: Acute Current Visit: Yes (12) Pulmonary cachexia due to COPD SNOMED Code(s): 828629908 Code(s): J44.9 - CHRONIC OBSTRUCTIVE PULMONARY DISEASE, UNSPECIFIED; R64 - CACHEXIA Status: Acute Current Visit: Yes (13) Severe malnutrition SNOMED Code(s): 38580311 Code(s): E43 - UNSPECIFIED SEVERE PROTEIN-CALORIE MALNUTRITION Status: Acute Current Visit: Yes - Problem List Review Problem List Initiated/Reviewed/Updated: Yes - Plan Plan:: Hypoxemic and hypercapnic respiratory failure COPD exacerbation in the setting on end stage COPD Chronic respiratory acidosis URI 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 Patient came in to ED for worsening shortness of breath--> placed on BiPAP--> admitted to ICU on BIPAP Mental status declined and PCO2>100 + pH 7.1--> Intubated Respiratory status stabilized PLAN BY SYSTEMS Neurologic: Continue sedation with Versed and Propofol Daily sedation vacation RASS goal -2 Respiratory: Continue mechanical ventilation VAP bundle: elevate HOB, scheduled oral care Scheduled DuoNebs and Budesonide IV Solumedrol ABGs as needed Daily spontaneous breathing trials Cardiovascular: Continue dopamine, wean off as tolerated, goal HR > 60 MAP goal > 65, if drops start norepinephrine Hourly vital signs Renal and Electrolytes: Continue Pinto catheter Monitor urine output, goal >30ml/hh Repeat labs in AM GI and hepatology: Possible tube feeds today Pantoprazole Endocrine and Metabolism: Glucose checks every 6 hours Hypoglycemia protocol Infectious Disease Tamiflu, Rocephin and Azithromycin Respiratory panel, step pneumo and mycoplasma serology pending Procalcitonin pending Monitor temp Panculture if febrile Hematology, Oncology and Immune system: No signs of active bleeding Goal Hb >7 PROPHYLAXIS DVT- Lovenox GI- not indicated CODE STATUS: FULL CODE DISPOSITION: Patient will remain in the ICU for mechanical ventilation with daily breathing trial to extubate as soon as possible
[2019-12-15] MEDS: methylPREDNISolone Sodium Succinate 125 MG/2 ML SDV IVPUSH SCH ×2 (09:41→21:27)
[2019-12-15 19:42] LABS: BORDETELLA PARAPERT IS1001 Not Detected (Not Detected)
[2019-12-15] MEDS: Metoprolol Tartrate 5 MG/5 ML SDV IVPUSH SCH (20:25)
[2019-12-15] MEDS: Azithromycin 500 MG in Sodium Chloride 0.9% 250 ML IV SCH (21:37)
[2019-12-15] MEDS ORDERED: cefTRIAXone 2 GM in Sodium Chloride 0.9% 100 ML IV SCH (23:00)
[2019-12-16] MEDS: propofoL 100 ML IV SCH (02:10)
[2019-12-16] MEDS: Pantoprazole 40 MG Vial IVPUSH SCH (05:22)
[2019-12-16] MEDS: Ipratropium 0.02% 0.5 MG/2.5 ML Neb Soln NEB SCH ×3 (05:47→20:58)
[2019-12-16] MEDS: Budesonide 0.5 MG/2 ML Neb Susp NEB SCH ×2 (05:47→20:58)
[2019-12-16] MEDS: Sodium Chloride 0.9% 1,000 ML IV SCH (06:09)
[2019-12-16] MEDS: methylPREDNISolone Sodium Succinate 125 MG/2 ML SDV IVPUSH SCH ×2 (09:38→21:22)
[2019-12-16] MEDS: Metoprolol Tartrate 5 MG/5 ML SDV IVPUSH SCH ×2 (09:40→20:04)
[2019-12-16] MEDS: Enoxaparin 40 MG/0.4 ML Syringe SUBCUT SCH (09:42)
[2019-12-16] MEDS: guaiFENesin 600 MG Tab.ER PO SCH ×3 (09:43→20:47)
--- NOTE | 2019-12-16 10:02 | PCM.PN ---
- General Info Date of Service: 12/16/19 Subjective Update: OVERNIGHT EVENTS AND INTERVAL CHANGES Drips: Propofol Versed Vital signs: BP 74-127/50-85 HR 90-147 Tmax 97.2 Sat > 93% Labs: WBC 30.5--> 14.9--> 4.93 Hb 13.3--> 11.8--> 9.5 Plt 437-->299--> 239 Elevated procalcitonin Cultures: Blood x2 negative day 1 Sputum negative day 1 Influenza screen swab negative + Mycoplasma and RSV Mechanical Ventilation: Vt 300 Rate 18x' PIP 19 Pmean 11 FiO2 40% I/Os: NG tube- 250 UO- 540 Balance 24 hours +2,855 Balance since admission +3940 Diet: NPO - Patient Data Vitals - Most Recent: Last Vital Signs Temp 98.7 F 12/16/19 09:00 Pulse 86 12/16/19 09:50 Resp 19 12/16/19 09:50 BP 126/80 12/16/19 09:40 Pulse Ox 97 12/16/19 09:50 Weight - Most Recent: 51.71 kg - Exam Quality Assessment: Supplemental Oxygen, Urine Catheter, DVT Prophylaxis General: Sedated HEENT: Pupils Equal, Pupils Reactive Neck: Trachea Midline, No JVD, +2 Carotid Pulse wo Bruit. No: Lymphadenopathy Lungs: Decreased Breath Sounds, Crackles, Rales. No: Rhonchi, Rub, Wheezing Cardiovascular: Regular Rhythm, Tachycardia. No: Murmurs, Gallops, Rubs GI/Abdominal Exam: Normal Bowel Sounds, Soft, Non-Tender. No: Distended, Guarding, Rigid, Rebound Extremities: Normal Inspection, Slow Capillary Refill Sepsis Event Note - Evaluation Sepsis Screening Result: Severe Sepsis Risk - Focused Exam Date Exam was Performed: 12/16/19 Time Exam was Performed: 19:20 - Problem List & Annotations (1) Leukocytosis SNOMED Code(s): 609611650, 876486916 Code(s): D72.829 - ELEVATED WHITE BLOOD CELL COUNT, UNSPECIFIED Status: Acute Current Visit: Yes (2) Thrombocytosis SNOMED Code(s): 4294821 Code(s): D47.3 - ESSENTIAL (HEMORRHAGIC) THROMBOCYTHEMIA Status: Acute Current Visit: Yes (3) Hypochloremia SNOMED Code(s): 17532043 Code(s): E87.8 - OT DISORDERS OF ELECTROLYTE AND FLUID BALANCE, NEC Status : Acute Current Visit: Yes (4) Hypoalbuminemia SNOMED Code(s): 564313544 Code(s): E88.09 - OT DISORDERS OF PLASMA-PROTEIN METABOLISM, NEC Status: Acute Current Visit: Yes (5) Elevated troponin SNOMED Code(s): 536004030, 494853487, 813786977 Code(s): R79.89 - OTHER SPECIFIED ABNORMAL FINDINGS OF BLOOD CHEMISTRY Status: Acute Current Visit: Yes (6) Chronic respiratory acidosis SNOMED Code(s): 7906712 Code(s): E87.2 - ACIDOSIS Status: Acute Current Visit: Yes (7) End stage COPD SNOMED Code(s): 095966884 Code(s): J44.9 - CHRONIC OBSTRUCTIVE PULMONARY DISEASE, UNSPECIFIED Status : Acute Current Visit: Yes (8) Respiratory failure with hypoxia and hypercapnia SNOMED Code(s): 79002282 Code(s): J96.91 - RESPIRATORY FAILURE, UNSPECIFIED WITH HYPOXIA; J96.92 - RESPIRATORY FAILURE, UNSPECIFIED WITH HYPERCAPNIA Status: Acute Current Visit: Yes Qualifiers: Chronicity: acute on chronic Qualified Code(s): J96.21 - Acute and chronic respiratory failure with hypoxia; J96.22 - Acute and chronic respiratory failure with hypercapnia (9) COPD exacerbation SNOMED Code(s): 159664972, 074647996 Code(s): J44.1 - CHRONIC OBSTRUCTIVE PULMONARY DISEASE W (ACUTE) EXACERBATION Status: Acute Priority: High Current Visit: No (10) Hypomagnesemia SNOMED Code(s): 483515584 Code(s): E83.42 - HYPOMAGNESEMIA Status: Acute Current Visit: No (11) Tachycardia SNOMED Code(s): 1922177 Code(s): R00.0 - TACHYCARDIA, UNSPECIFIED Status: Acute Current Visit: Yes (12) Severe malnutrition SNOMED Code(s): 65377915 Code(s): E43 - UNSPECIFIED SEVERE PROTEIN-CALORIE MALNUTRITION Status: Acute Current Visit: Yes (13) Sinus tachycardia seen on package worker SNOMED Code(s): 559633448 Code(s): R00.0 - TACHYCARDIA, UNSPECIFIED Status: Acute Current Visit: Yes (14) RSV infection SNOMED Code(s): 03657616 Code(s): B97.4 - RESPIRATORY SYNCYTIAL VIRUS CAUSING DISEASES CLASSD ELSWHR Status: Acute Current Visit: Yes - Problem List Review Problem List Initiated/Reviewed/Updated: Yes - Plan Plan:: Hypoxemic and hypercapnic respiratory failure COPD exacerbation in the setting on end stage COPD Chronic respiratory acidosis URI 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 Patient came in to ED for worsening shortness of breath--> placed on BiPAP--> admitted to ICU on BIPAP Mental status declined and PCO2>100 + pH 7.1--> Intubated Respiratory status stabilized PLAN BY SYSTEMS Neurologic: Continue sedation with Versed and Propofol Daily sedation vacation RASS goal -2 Respiratory: Continue mechanical ventilation VAP bundle: elevate HOB, scheduled oral care Scheduled DuoNebs and Budesonide IV Solumedrol ABGs as needed Daily spontaneous breathing trials Cardiovascular: MAP goal > 65, if drops start norepinephrine Hourly vital signs Metoprolol for tachycardia Renal and Electrolytes: Continue Pinto catheter Monitor urine output, goal >30ml/hh Repeat labs in AM GI and hepatology: Possible tube feeds today Pantoprazole Endocrine and Metabolism: Glucose checks every 6 hours Hypoglycemia protocol Infectious Disease Tamiflu, Rocephin and Azithromycin Respiratory panel, step pneumo and mycoplasma serology pending Procalcitonin pending Monitor temp Panculture if febrile Hematology, Oncology and Immune system: No signs of active bleeding Goal Hb >7 PROPHYLAXIS DVT- Lovenox GI- not indicated CODE STATUS: FULL CODE DISPOSITION: Patient will remain in the ICU, likely to be extubated today and will need to remain in ICU 24 hours after extubation
[2019-12-16] MEDS: Lactated Ringers 1,000 ML IV SCH ×3 (11:16→19:11)
[2019-12-16] MEDS: Ketorolac 15 MG/ML SDV IVPUSH PRN (19:48)
[2019-12-16] MEDS: Acetaminophen/Codeine 300-30 MG Tab PO PRN (20:46)
[2019-12-16] MEDS: Azithromycin 500 MG in Sodium Chloride 0.9% 250 ML IV SCH (21:27)
[2019-12-17] MEDS: Lactated Ringers 1,000 ML IV SCH ×2 (00:43→08:35)
[2019-12-17] MEDS: Ipratropium 0.02% 0.5 MG/2.5 ML Neb Soln NEB SCH ×3 (05:37→22:02)
[2019-12-17] MEDS: Budesonide 0.5 MG/2 ML Neb Susp NEB SCH ×2 (05:37→22:02)
[2019-12-17] MEDS: Pantoprazole 40 MG Vial IVPUSH SCH (05:59)
[2019-12-17] MEDS: guaiFENesin 600 MG Tab.ER PO SCH ×3 (08:36→20:21)
[2019-12-17] MEDS: Metoprolol Tartrate 5 MG/5 ML SDV IVPUSH SCH ×2 (08:38→20:32)
[2019-12-17] MEDS: Enoxaparin 40 MG/0.4 ML Syringe SUBCUT SCH (08:40)
[2019-12-17] MEDS ORDERED: Haloperidol Lactate 5 MG/ML SDV IVPUSH ONE (09:00)
[2019-12-17] MEDS: methylPREDNISolone Sodium Succinate 125 MG/2 ML SDV IVPUSH SCH ×2 (09:08→21:13)
[2019-12-17] MEDS: Acetaminophen/Codeine 300-30 MG Tab PO PRN (13:12)
[2019-12-17] MEDS: Sodium Chloride 0.9% 1,000 ML ONE ×2 (17:25→20:01)
[2019-12-17] MEDS ORDERED: Magnesium Sulfate/Water 4 GM in Premix Bag 1 BAG IV ONE (20:00)
[2019-12-17] MEDS ORDERED: QUEtiapine 25 MG Tab PO ONE (21:00)
[2019-12-17] MEDS: Azithromycin 500 MG in Sodium Chloride 0.9% 250 ML IV SCH (21:16)
--- NOTE | 2019-12-17 21:17 | PCM.PN ---
- General Info Date of Service: 12/17/19 Subjective Update: OVERNIGHT EVENTS AND INTERVAL CHANGES - Nursing staff reports hallucinations overnight with agitation Drips: LR Vital signs: BP 93-147/62-94 HR 77-108 Tmax 99.5 Sat > 85% Labs: WBC 30.5--> 14.9--> 4.93-->7.9 Hb 13.3--> 11.8--> 9.5-->10.8 Plt 437-->299--> 239 Elevated procalcitonin Cultures: Blood x2 negative day 3 Sputum negative day 3 Influenza screen swab negative + Mycoplasma and RSV BiPAP: IPAP 12 EPAP 8 FiO2-35% I/Os: UO- 540 Balance 24 hours +2,383 Balance since admission +3,471 Diet: Clear liquids - Patient Data Vitals - Most Recent: Last Vital Signs Temp 98.1 F 12/17/19 20:00 Pulse 109 H 12/17/19 20:32 Resp 22 H 12/17/19 21:00 BP 147/90 H 12/17/19 20:32 Pulse Ox 96 12/17/19 21:00 Weight - Most Recent: 54.431 kg - Exam Quality Assessment: Supplemental Oxygen, Urine Catheter, DVT Prophylaxis General: Alert, Oriented, Moderate Distress HEENT: Other (oral mucosa is dry, very poor dentition) Neck: Supple, Trachea Midline, JVD. No: Lymphadenopathy Lungs: Decreased Breath Sounds, Crackles, Wheezing. No: Rales, Rhonchi, Rub Cardiovascular: Regular Rhythm, Tachycardia. No: Murmurs, Gallops, Rubs GI/Abdominal Exam: Normal Bowel Sounds, Soft, Non-Tender. No: Distended, Guarding, Rigid, Rebound Extremities: No Pedal Edema, Slow Capillary Refill Skin: Dry, Cool Neurological: No New Focal Deficit Sepsis Event Note - Evaluation Sepsis Screening Result: Sepsis Risk - Problem List & Annotations (1) Leukocytosis SNOMED Code(s): 115480835, 529619675 Code(s): D72.829 - ELEVATED WHITE BLOOD CELL COUNT, UNSPECIFIED Status: Acute Current Visit: Yes (2) Thrombocytosis SNOMED Code(s): 8288698 Code(s): D47.3 - ESSENTIAL (HEMORRHAGIC) THROMBOCYTHEMIA Status: Acute Current Visit: Yes (3) Hypochloremia SNOMED Code(s): 50809018 Code(s): E87.8 - OTH DISORDERS OF ELECTROLYTE AND FLUID BALANCE, NEC Status : Acute Current Visit: Yes (4) Hypoalbuminemia SNOMED Code(s): 168547914 Code(s): E88.09 - OTH DISORDERS OF PLASMA-PROTEIN METABOLISM, NEC Status: Acute Current Visit: Yes (5) Elevated troponin SNOMED Code(s): 109358555, 151904466, 468275159 Code(s): R79.89 - OTHER SPECIFIED ABNORMAL FINDINGS OF BLOOD CHEMISTRY Status: Acute Current Visit: Yes (6) Chronic respiratory acidosis SNOMED Code(s): 2750481 Code(s): E87.2 - ACIDOSIS Status: Acute Current Visit: Yes (7) End stage COPD SNOMED Code(s): 925263299 Code(s): J44.9 - CHRONIC OBSTRUCTIVE PULMONARY DISEASE, UNSPECIFIED Status : Acute Current Visit: Yes (8) Respiratory failure with hypoxia and hypercapnia SNOMED Code(s): 05151278 Code(s): J96.91 - RESPIRATORY FAILURE, UNSPECIFIED WITH HYPOXIA; J96.92 - RESPIRATORY FAILURE, UNSPECIFIED WITH HYPERCAPNIA Status: Acute Current Visit: Yes Qualifiers: Chronicity: acute on chronic Qualified Code(s): J96.21 - Acute and chronic respiratory failure with hypoxia; J96.22 - Acute and chronic respiratory failure with hypercapnia (9) COPD exacerbation SNOMED Code(s): 655698711, 620874887 Code(s): J44.1 - CHRONIC OBSTRUCTIVE PULMONARY DISEASE W (ACUTE) EXACERBATION Status: Acute Priority: High Current Visit: No (10) Hypomagnesemia SNOMED Code(s): 465086074 Code(s): E83.42 - HYPOMAGNESEMIA Status: Acute Current Visit: No (11) Tachycardia SNOMED Code(s): 7148984 Code(s): R00.0 - TACHYCARDIA, UNSPECIFIED Status: Acute Current Visit: Yes (12) Severe malnutrition SNOMED Code(s): 71698969 Code(s): E43 - UNSPECIFIED SEVERE PROTEIN-CALORIE MALNUTRITION Status: Acute Current Visit: Yes (13) Sinus tachycardia seen on cafeteria monitor SNOMED Code(s): 927259938 Code(s): R00.0 - TACHYCARDIA, UNSPECIFIED Status: Acute Current Visit: Yes (14) RSV infection SNOMED Code(s): 90155175 Code(s): B97.4 - RESPIRATORY SYNCYTIAL VIRUS CAUSING DISEASES CLASSD ELSWHR Status: Acute Current Visit: Yes (15) Acute delirium SNOMED Code(s): 0216565, 1979098 Code(s): R41.0 - DISORIENTATION, UNSPECIFIED Status: Acute Current Visit : Yes (16) HTN (hypertension) SNOMED Code(s): 40658042 Code(s): I10 - ESSENTIAL (PRIMARY) HYPERTENSION Status: Chronic Priority : Low Current Visit: No Qualifiers: Hypertension type: unspecified Qualified Code(s): I10 - Essential (primary ) hypertension (17) Mycoplasma pneumonia SNOMED Code(s): 08398939 Code(s): J15.7 - PNEUMONIA DUE TO MYCOPLASMA PNEUMONIAE Status: Acute Priority: High Current Visit: No Qualifiers: Laterality: unspecified laterality Lung location: unspecified part of lung Qualified Code(s): J15.7 - Pneumonia due to Mycoplasma pneumoniae - Problem List Review Problem List Initiated/Reviewed/Updated: Yes - Plan Plan:: Community acquired pneumonia Hypoxemic and hypercapnic respiratory failure COPD exacerbation in the setting on end stage COPD Chronic respiratory acidosis 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 Patient came in to ED for worsening shortness of breath--> placed on BiPAP--> admitted to ICU on BIPAP Mental status declined and PCO2>100 + pH 7.1--> Intubated Respiratory status stabilized but has continued to wax and wane since admission - was transitioned to nasal canula but had to be back on BiPAP after O2Sat dropped to 75% - O2Sat drops <80% when asleep because she is a mouth breather Infectious disease - Respiratory panel Positive for RSV and Mycoplasma - Negative for influenza--> will d/c Tamiflu - Leukocytosis resolved - Procalcitonin elevated Acute Delirium - Overnight patient was hallucinating with animals in the ceiling of her room and became agitated when nursing tried to contradict her to calm her down PLAN BY SYSTEMS Neurologic: Monitor mental status Avoid interactions during the night Respiratory: Continue BiPAP with same parameters Transition to NC if possible if not hi flow oxygen might be an option Atrovent q8h Budesonide q12 IV Solumedrol ABGs daily and as needed Cardiovascular: Metoprolol for tachycardia transition to PO Trend BP and start medication if required PRN hydralazine for BP > 180/100 Renal and Electrolytes: Replace magnesium Continue Pinto catheter Monitor urine output, goal >30ml/hh Repeat labs in AM GI and hepatology: Clear liquid diet Advance diet as tolerated Endocrine and Metabolism: Discontinue glucose checks Infectious Disease Continue Azithromycin Discontinue Tamiflu and Rocephin Monitor temp and panculture if greater than 99.2 Procalcitonin every 48h Hematology, Oncology and Immune system: No signs of active bleeding Goal Hb >7 PROPHYLAXIS DVT- Lovenox GI- not indicated CODE STATUS: FULL CODE DISPOSITION: Patient will remain in the ICU, extubated yesterday but respiratory status continues to wax and wane requiring BIPAP almost constantly
[2019-12-17] MEDS ORDERED: cefTRIAXone 2 GM in Sodium Chloride 0.9% 100 ML IV SCH (21:30)
[2019-12-18] MEDS ORDERED: hydrALAZINE 20 MG/ML SDV IVPUSH PRN (06:07)
[2019-12-18] MEDS: Pantoprazole 40 MG Vial IVPUSH SCH (06:13)
[2019-12-18] MEDS: Ipratropium 0.02% 0.5 MG/2.5 ML Neb Soln NEB SCH ×3 (06:56→20:14)
[2019-12-18] MEDS: Budesonide 0.5 MG/2 ML Neb Susp NEB SCH ×2 (06:56→20:15)
[2019-12-18] MEDS: Metoprolol Tartrate 5 MG/5 ML SDV IVPUSH SCH (07:59)
[2019-12-18] MEDS: Enoxaparin 40 MG/0.4 ML Syringe SUBCUT SCH (08:01)
[2019-12-18] MEDS: Acetaminophen/Codeine 300-30 MG Tab PO PRN ×2 (08:16→14:13)
[2019-12-18] MEDS: guaiFENesin 600 MG Tab.ER PO SCH ×3 (08:16→21:06)
[2019-12-18] MEDS: methylPREDNISolone Sodium Succinate 125 MG/2 ML SDV IVPUSH SCH ×3 (08:43→21:23)
--- NOTE | 2019-12-18 14:16 | PCM.PN ---
- General Info Date of Service: 12/18/19 Subjective Update: OVERNIGHT EVENTS AND INTERVAL CHANGES - No hallucinations Drips: LR Vital signs: BP 114-165/79-95 HR 98-109 Tmax 98.8 Sat > 86 while awake, drops to high 70s while asleep on (30-40% FiO2) Labs: WBC 30.5--> 14.9--> 4.93-->7.9-->8.03 Hb 13.3--> 11.8--> 9.5-->10.8-->11.5 PO4: 2.6-->2.2 PaO2: 67-->85 Cultures: Blood x2 negative day 4 Sputum negative day 4 Influenza screen swab negative + Mycoplasma and RSV I/Os: UO- 1555 Balance 24 hours +2,383 Diet: Clear liquids - Patient Data Vitals - Most Recent: Last Vital Signs Temp 98.2 F 12/18/19 12:00 Pulse 134 H 12/18/19 07:59 Resp 24 H 12/18/19 12:00 BP 143/101 H 12/18/19 12:00 Pulse Ox 95 12/18/19 12:59 Weight - Most Recent: 54.431 kg - Exam General: Alert, Oriented, Cooperative, Moderate Distress HEENT: Pupils Equal, Pupils Reactive, EOMI, Mucous Membr. Moist/Rodriguez Hevia (white plaques) Lungs: Decreased Breath Sounds (unable to auscultate on L lung field, minimal entry in upper R lung), Crackles, Wheezing. No: Rales, Rhonchi, Rub Cardiovascular: Regular Rate, Tachycardia. No: Murmurs, Gallops, Rubs GI/Abdominal Exam: Soft, Non-Tender, Abnormal Bowel Sounds. No: Distended, Guarding, Rigid, Rebound Back Exam: No: CVA Tenderness (L), CVA Tenderness (R), Paraspinal Tenderness, Vertebral Tenderness Extremities: Other (muscle wasting, cool distal extremities, dry skin) Skin: Dry, Cool Neurological: No New Focal Deficit Psy/Mental Status: Alert, Anxious Sepsis Event Note - Evaluation Sepsis Screening Result: Sepsis Risk - Focused Exam Vital Signs: Vital Signs Temp Pulse Resp BP BP Pulse Ox Pulse Ox 12/18/19 12:59 95 12/18/19 12:00 98.2 F 24 H 143/101 H 92 L 12/18/19 08:49 97.8 F 23 H 142/92 H 96 12/18/19 07:59 134 H 124/93 H 12/18/19 06:59 12/18/19 06:30 25 H 95 12/18/19 06:15 18 91 L 12/18/19 06:00 21 H 91 L 12/18/19 05:45 20 93 L 12/18/19 05:30 21 H 94 L 12/18/19 05:15 20 94 L 12/18/19 05:00 16 94 L 12/18/19 04:45 17 94 L 12/18/19 04:31 26 H 12/18/19 04:15 12 95 12/18/19 04:05 99 12/18/19 04:01 139/91 H 12/18/19 04:00 97.8 F 14 139/91 H 97 12/18/19 03:45 17 96 12/18/19 03:30 16 97 12/18/19 03:15 16 97 12/18/19 03:00 12 99 12/18/19 02:45 16 97 12/18/19 02:30 16 97 Pulse Ox 12/18/19 12:59 12/18/19 12:00 12/18/19 08:49 12/18/19 07:59 12/18/19 06:59 95 12/18/19 06:30 12/18/19 06:15 12/18/19 06:00 12/18/19 05:45 12/18/19 05:30 12/18/19 05:15 12/18/19 05:00 94 L 12/18/19 04:45 12/18/19 04:31 12/18/19 04:15 12/18/19 04:05 12/18/19 04:01 12/18/19 04:00 12/18/19 03:45 12/18/19 03:30 12/18/19 03:15 12/18/19 03:00 12/18/19 02:45 12/18/19 02:30 Date Exam was Performed: 12/23/19 Time Exam was Performed: 18:54 - Problem List & Annotations (1) Leukocytosis SNOMED Code(s): 157074130, 395303900 Code(s): D72.829 - ELEVATED WHITE BLOOD CELL COUNT, UNSPECIFIED Status: Acute Current Visit: Yes (2) Thrombocytosis SNOMED Code(s): 2302805 Code(s): D47.3 - ESSENTIAL (HEMORRHAGIC) THROMBOCYTHEMIA Status: Acute Current Visit: Yes (3) Hypochloremia SNOMED Code(s): 02647248 Code(s): E87.8 - OT DISORDERS OF ELECTROLYTE AND FLUID BALANCE, NEC Status : Acute Current Visit: Yes (4) Hypoalbuminemia SNOMED Code(s): 741009043 Code(s): E88.09 - OT DISORDERS OF PLASMA-PROTEIN METABOLISM, NEC Status: Acute Current Visit: Yes (5) Elevated troponin SNOMED Code(s): 719294587, 862538407, 110655031 Code(s): R79.89 - OTHER SPECIFIED ABNORMAL FINDINGS OF BLOOD CHEMISTRY Status: Acute Current Visit: Yes (6) Chronic respiratory acidosis SNOMED Code(s): 3617926 Code(s): E87.2 - ACIDOSIS Status: Acute Current Visit: Yes (7) End stage COPD SNOMED Code(s): 846868444 Code(s): J44.9 - CHRONIC OBSTRUCTIVE PULMONARY DISEASE, UNSPECIFIED Status : Acute Current Visit: Yes (8) Respiratory failure with hypoxia and hypercapnia SNOMED Code(s): 05493952 Code(s): J96.91 - RESPIRATORY FAILURE, UNSPECIFIED WITH HYPOXIA; J96.92 - RESPIRATORY FAILURE, UNSPECIFIED WITH HYPERCAPNIA Status: Acute Current Visit: Yes Qualifiers: Chronicity: acute on chronic Qualified Code(s): J96.21 - Acute and chronic respiratory failure with hypoxia; J96.22 - Acute and chronic respiratory failure with hypercapnia (9) COPD exacerbation SNOMED Code(s): 543974040, 985990660 Code(s): J44.1 - CHRONIC OBSTRUCTIVE PULMONARY DISEASE W (ACUTE) EXACERBATION Status: Acute Priority: High Current Visit: No (10) Hypomagnesemia SNOMED Code(s): 655273913 Code(s): E83.42 - HYPOMAGNESEMIA Status: Acute Current Visit: No (11) Tachycardia SNOMED Code(s): 6451028 Code(s): R00.0 - TACHYCARDIA, UNSPECIFIED Status: Acute Current Visit: Yes (12) Severe malnutrition SNOMED Code(s): 85887159 Code(s): E43 - UNSPECIFIED SEVERE PROTEIN-CALORIE MALNUTRITION Status: Acute Current Visit: Yes (13) Sinus tachycardia seen on radiation monitor SNOMED Code(s): 948711333 Code(s): R00.0 - TACHYCARDIA, UNSPECIFIED Status: Acute Current Visit: Yes (14) RSV infection SNOMED Code(s): 70834567 Code(s): B97.4 - RESPIRATORY SYNCYTIAL VIRUS CAUSING DISEASES CLASSD ELSWHR Status: Acute Current Visit: Yes (15) Acute delirium SNOMED Code(s): 9023574, 7145768 Code(s): R41.0 - DISORIENTATION, UNSPECIFIED Status: Acute Current Visit : Yes (16) HTN (hypertension) SNOMED Code(s): 72938461 Code(s): I10 - ESSENTIAL (PRIMARY) HYPERTENSION Status: Chronic Priority : Low Current Visit: No Qualifiers: Hypertension type: unspecified Qualified Code(s): I10 - Essential (primary ) hypertension (17) Mycoplasma pneumonia SNOMED Code(s): 73053605 Code(s): J15.7 - PNEUMONIA DUE TO MYCOPLASMA PNEUMONIAE Status: Acute Priority: High Current Visit: No Qualifiers: Laterality: unspecified laterality Lung location: unspecified part of lung Qualified Code(s): J15.7 - Pneumonia due to Mycoplasma pneumoniae (18) Hypophosphatemia SNOMED Code(s): 8912697 Code(s): E83.39 - OTHER DISORDERS OF PHOSPHORUS METABOLISM Status: Acute Current Visit: Yes (19) Depression with anxiety SNOMED Code(s): 975201762 Code(s): F41.8 - OTHER SPECIFIED ANXIETY DISORDERS Status: Acute Current Visit: No (20) Hypokalemia SNOMED Code(s): 57541157 Code(s): E87.6 - HYPOKALEMIA Status: Acute Current Visit: No - Problem List Review Problem List Initiated/Reviewed/Updated: Yes - Plan Plan:: Community acquired pneumonia Hypoxemic and hypercapnic respiratory failure COPD exacerbation in the setting on end stage COPD Chronic respiratory acidosis 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 Day 1 - Patient came in to ED for worsening shortness of breath--> placed on BiPAP--> admitted to ICU on BIPAP - Mental status declined and PCO2>100 + pH 7.1--> Intubated - Sedated with Versed and propofol - Tachycardic, requires IV metoprolol - Started on Rocephin, azithromycin and Tamiflu Day 2 - Intubated - Significant improvement in WBC - Sedation vacation --> patient got agitated - Failed SBT Day3 - Procalcitonin elevated - Respiratory panel + for RSV and mycoplasma - Discontinued Tamiflu and Rocephin - Kept O2 sat > 95% with FiO2 of 45% - Urine output decreased significantly to 540/24 hrs--> responded to fluid bolus Day 4 - Extubated - Transitioned to BiPAP - Attempted hi-flow but patient is a mouth breather and SatO2 < low 80's - Minimal improvement in UO--> Lasix - Significant hallucinations overnight with delirium, no physical agitation Day 5 - UO increased with single dose of Lasix - Completing azithromycin day 5 - Very limited movement due to drop in O2 saturation with minimal movement including leaning forward and just moving head or hands - Unable to perform ADLs due to shortness of breath PLAN BY SYSTEMS Neurologic: Monitor mental status Avoid interactions during the night Respiratory: Continue BiPAP with same parameters Atrovent q8h Budesonide q12 IV Solumedrol ABGs daily and as needed Cardiovascular: Metoprolol PO, scheduled Trend BP and start medication if required PRN hydralazine for BP > 180/100 Renal and Electrolytes: Replace magnesium Continue Pinto catheter Pinto catheter care by nursing Monitor urine output, goal >30ml/hh Repeat labs in AM GI and hepatology: Clear liquid diet Advance diet as tolerated Start nutritional supplements Endocrine and Metabolism: Monitor glucose on daily labs Infectious Disease Discontinue Azithromycin Monitor temp and panculture if greater than 99.2 Procalcitonin every 48h Hematology, Oncology and Immune system: No signs of active bleeding Goal Hb >7 PROPHYLAXIS DVT- Lovenox GI- not indicated CODE STATUS: FULL CODE DISPOSITION: Patient will remain in the ICU on BiPAP, close monitorization required due to patient needing BiPAP constantly due to extremely poor conditioning and reserve. Length of stay greater than 96 hours due to suboptimal response to treatment
[2019-12-18] MEDS: Ketorolac 15 MG/ML SDV IVPUSH PRN (16:16)
[2019-12-18] MEDS ORDERED: Metoprolol Tartrate 5 MG/5 ML SDV IVPUSH ONE (17:20)
[2019-12-18] MEDS: ALPRAZolam 1 MG Tab PO PRN (18:54)
--- NOTE | 2019-12-18 18:58 | PCM.PN ---
- General Info Date of Service: 12/18/19 - Patient Data Vitals - Most Recent: Last Vital Signs Temp 99.2 F 12/18/19 17:42 Pulse 156 H 12/18/19 17:00 Resp 25 H 12/18/19 17:42 BP 142/83 H 12/18/19 17:42 Pulse Ox 97 12/18/19 17:42 Weight - Most Recent: 54.431 kg I&O - Last 24 Hours: Intake & Output 12/18/19 12/18/19 12/18/19 06:59 14:59 22:59 Intake Total 600 360 120 Output Total 675 575 100 Balance -75 -215 20 Lab Results Last 24 Hours: Laboratory Results - last 24 hr 12/17/19 12/17/19 12/18/19 Range/Units 12:23 18:30 09:32 WBC (3.98-10.04) K/mm3 RBC (3.98-5.22) M/mm3 Hgb (11.2-15.7) gm/dl Hct (34.1-44.9) % MCV (79.4-94.8) fl MCH (25.6-32.2) pg MCHC (32.2-35.5) g/dl RDW Std Deviation (36.4-46.3) fL Plt Count (182-369) K/mm3 MPV (9.4-12.3) fl Neut % (Auto) (34.0-71.1) % Lymph % (Auto) (19.3-51.7) % [place] % (Auto) (4.7-12.5) % Eos % (Auto) (0.7-5.8) Baso % (Auto) (0.1-1.2) % Neut # (Auto) (1.56-6.13) K/mm3 Lymph # (Auto) (1.18-3.74) K/mm3 [place] # (Auto) (0.24-0.36) K/mm3 Eos # (Auto) (0.04-0.36) K/mm3 Baso # (Auto) (0.01-0.08) K/mm3 Manual Slide Review Puncture Site Lt radial ABG pH 7.39 (7.35-7.45) ABG pCO2 56.9 H (35.0-45.0) mmHg ABG pO2 85.0 (80.0-100.0) mmHg ABG HCO3 33.8 H (22.0-26.0) meq/L ABG O2 Saturation 95.9 L (96.0-97.0) % ABG Base Excess 7.8 H (-2-2.0) Johnny Test Positive A-a Gradient 101 mmHg O2 Delivery Device Nasal cannula Oxygen Flow Rate 4.0 FiO2 36.00 (21.00-100.00) % Sodium (136-145) mEq/L Potassium (3.5-5.1) mEq/L Chloride (98-107) mEq/L Carbon Dioxide (21-32) mEq/L Anion Gap (5-15) BUN (7-18) mg/dL Creatinine (0.55-1.02) mg/dL Est Cr Clr Drug Dosing mL/min Estimated GFR (MDRD) (>60) mL/min BUN/Creatinine Ratio (14-18) Glucose (74-106) mg/dL POC Glucose 108 H 226 H (70-105) mg/dL Lactic Acid (0.4-2.0) mmol/L Calcium (8.5-10.1) mg/dL Phosphorus (2.6-4.7) mg/dL Magnesium (1.8-2.4) mg/dl Urine Color (Yellow) Urine Appearance (Clear) Urine pH (5.0-8.0) Ur Specific [place] (1.005-1.030) Urine Protein (Negative) Urine Glucose (UA) (Negative) Urine Ketones (Negative) Urine Occult Blood (Negative) Urine Nitrite (Negative) Urine Bilirubin (Negative) Urine Urobilinogen (0.2-1.0) Ur Leukocyte Esterase (Negative) Urine RBC (0-5) /hpf Urine WBC (0-5) /hpf Ur Squamous Epith Cells (0-5) /hpf Amorphous Sediment (NOT SEEN) /hpf Urine Bacteria (FEW) /hpf Urine Mucus (FEW) /hpf 12/18/19 12/18/19 12/18/19 Range/Units 10:50 10:50 17:10 WBC 8.03 (3.98-10.04) K/mm3 RBC 4.14 (3.98-5.22) M/mm3 Hgb 11.5 (11.2-15.7) gm/dl Hct 35.9 (34.1-44.9) % MCV 86.7 (79.4-94.8) fl MCH 27.8 (25.6-32.2) pg MCHC 32.0 L (32.2-35.5) g/dl RDW Std Deviation 38.8 (36.4-46.3) fL Plt Count 282 (182-369) K/mm3 MPV 9.1 L (9.4-12.3) fl Neut % (Auto) 92.9 H (34.0-71.1) % Lymph % (Auto) 3.1 L (19.3-51.7) % [place] % (Auto) 3.6 L (4.7-12.5) % Eos % (Auto) 0 L (0.7-5.8) Baso % (Auto) 0.0 L (0.1-1.2) % Neut # (Auto) 7.46 H (1.56-6.13) K/mm3 Lymph # (Auto) 0.25 L (1.18-3.74) K/mm3 [place] # (Auto) 0.29 (0.24-0.36) K/mm3 Eos # (Auto) 0.00 L (0.04-0.36) K/mm3 Baso # (Auto) 0.00 L (0.01-0.08) K/mm3 Manual Slide Review Abnormal smear Puncture Site ABG pH (7.35-7.45) ABG pCO2 (35.0-45.0) mmHg ABG pO2 (80.0-100.0) mmHg ABG HCO3 (22.0-26.0) meq/L ABG O2 Saturation (96.0-97.0) % ABG Base Excess (-2-2.0) Johnny Test A-a Gradient mmHg O2 Delivery Device Oxygen Flow Rate FiO2 (21.00-100.00) % Sodium 139 (136-145) mEq/L Potassium 3.4 L (3.5-5.1) mEq/L Chloride 102 (98-107) mEq/L Carbon Dioxide 33 H (21-32) mEq/L Anion Gap 7.4 (5-15) BUN 27 H (7-18) mg/dL Creatinine 0.8 (0.55-1.02) mg/dL Est Cr Clr Drug Dosing 68.27 mL/min Estimated GFR (MDRD) > 60 (>60) mL/min BUN/Creatinine Ratio 33.8 H (14-18) Glucose 218 H (74-106) mg/dL POC Glucose (70-105) mg/dL Lactic Acid (0.4-2.0) mmol/L Calcium 8.8 (8.5-10.1) mg/dL Phosphorus 2.2 L (2.6-4.7) mg/dL Magnesium 2.3 (1.8-2.4) mg/dl Urine Color Yellow (Yellow) Urine Appearance Clear (Clear) Urine pH 7.0 (5.0-8.0) Ur Specific [place] 1.025 (1.005-1.030) Urine Protein 1+ H (Negative) Urine Glucose (UA) Negative (Negative) Urine Ketones Negative (Negative) Urine Occult Blood 3+ H (Negative) Urine Nitrite Negative (Negative) Urine Bilirubin Negative (Negative) Urine Urobilinogen 0.2 (0.2-1.0) Ur Leukocyte Esterase Negative (Negative) Urine RBC >100 H (0-5) /hpf Urine WBC 0-5 (0-5) /hpf Ur Squamous Epith Cells 0-5 (0-5) /hpf Amorphous Sediment Few H (NOT SEEN) /hpf Urine Bacteria Few (FEW) /hpf Urine Mucus Not seen (FEW) /hpf 12/18/19 Range/Units 17:19 WBC (3.98-10.04) K/mm3 RBC (3.98-5.22) M/mm3 Hgb (11.2-15.7) gm/dl Hct (34.1-44.9) % MCV (79.4-94.8) fl MCH (25.6-32.2) pg MCHC (32.2-35.5) g/dl RDW Std Deviation (36.4-46.3) fL Plt Count (182-369) K/mm3 MPV (9.4-12.3) fl Neut % (Auto) (34.0-71.1) % Lymph % (Auto) (19.3-51.7) % [place] % (Auto) (4.7-12.5) % Eos % (Auto) (0.7-5.8) Baso % (Auto) (0.1-1.2) % Neut # (Auto) (1.56-6.13) K/mm3 Lymph # (Auto) (1.18-3.74) K/mm3 [place] # (Auto) (0.24-0.36) K/mm3 Eos # (Auto) (0.04-0.36) K/mm3 Baso # (Auto) (0.01-0.08) K/mm3 Manual Slide Review Puncture Site ABG pH (7.35-7.45) ABG pCO2 (35.0-45.0) mmHg ABG pO2 (80.0-100.0) mmHg ABG HCO3 (22.0-26.0) meq/L ABG O2 Saturation (96.0-97.0) % ABG Base Excess (-2-2.0) Johnny Test A-a Gradient mmHg O2 Delivery Device Oxygen Flow Rate FiO2 (21.00-100.00) % Sodium (136-145) mEq/L Potassium (3.5-5.1) mEq/L Chloride (98-107) mEq/L Carbon Dioxide (21-32) mEq/L Anion Gap (5-15) BUN (7-18) mg/dL Creatinine (0.55-1.02) mg/dL Est Cr Clr Drug Dosing mL/min Estimated GFR (MDRD) (>60) mL/min BUN/Creatinine Ratio (14-18) Glucose (74-106) mg/dL POC Glucose (70-105) mg/dL Lactic Acid 1.5 (0.4-2.0) mmol/L Calcium (8.5-10.1) mg/dL Phosphorus (2.6-4.7) mg/dL Magnesium (1.8-2.4) mg/dl Urine Color (Yellow) Urine Appearance (Clear) Urine pH (5.0-8.0) Ur Specific [place] (1.005-1.030) Urine Protein (Negative) Urine Glucose (UA) (Negative) Urine Ketones (Negative) Urine Occult Blood (Negative) Urine Nitrite (Negative) Urine Bilirubin (Negative) Urine Urobilinogen (0.2-1.0) Ur Leukocyte Esterase (Negative) Urine RBC (0-5) /hpf Urine WBC (0-5) /hpf Ur Squamous Epith Cells (0-5) /hpf Amorphous Sediment (NOT SEEN) /hpf Urine Bacteria (FEW) /hpf Urine Mucus (FEW) /hpf John Results Last 24 Hours: Microbiology 12/14/19 21:10 Aerobic Blood Culture - Preliminary Blood - Venous NO GROWTH AFTER 3 DAYS Anaerobic Blood Culture - Preliminary NO GROWTH AFTER 3 DAYS 12/14/19 21:00 Aerobic Blood Culture - Preliminary Blood - Venous - Lab Draw NO GROWTH AFTER 3 DAYS Anaerobic Blood Culture - Preliminary NO GROWTH AFTER 3 DAYS Med Orders - Current: Current Medications Acetaminophen/Codeine Phosphate (Tylenol With Codeine No.3 300mg/30mg) 1 tab PO Q6H PRN PRN Reason: Pain (severe 7-10) Last Admin: 12/18/19 14:13 Dose: 1 tab Alprazolam (Xanax) 1 mg PO BID PRN PRN Reason: Anxiety Last Admin: 12/18/19 18:54 Dose: 1 mg Azithromycin (Zithromax) 500 mg PO BEDTIME SHAUN Stop: 12/18/19 21:01 Budesonide (Pulmicort) 0.5 mg NEB BIDRT SHAUN Last Admin: 12/18/19 06:56 Dose: 0.5 mg Enoxaparin Sodium (Lovenox) 40 mg SUBCUT DAILY SHAUN Last Admin: 12/18/19 08:01 Dose: 40 mg Guaifenesin (Mucinex) 600 mg PO TID SHAUN Last Admin: 12/18/19 14:07 Dose: 600 mg Hydralazine HCl (Apresoline) 10 mg IVPUSH Q2H PRN PRN Reason: Hypertension Last Admin: 12/18/19 16:16 Dose: 10 mg Propofol (Diprivan 100 Ml) 100 mls @ 1.463 mls/hr IV TITRATE SHAUN; Protocol Last Admin: 12/16/19 02:10 Dose: 32 mcg/kg/min, 9.362 mls/hr Norepinephrine Bitartrate 4 mg (/ Dextrose/Water) 250 mls @ 7.5 mls/hr IV TITRATE SHAUN; Protocol Midazolam HCl 100 mg/ Sodium (Chloride) 100 mls @ 0.5 mls/hr IV ASDIRECTED [facility] Last Infusion: 12/15/19 17:38 Dose: 5 mls/hr Ipratropium [place] (Atrovent) 0.5 mg NEB Q8HRRT SHAUN Last Admin: 12/18/19 12:59 Dose: 0.5 mg Ketorolac Tromethamine (Toradol) 15 mg IVPUSH Q6H PRN PRN Reason: Pain (moderate 4-6) Last Admin: 12/18/19 16:16 Dose: 15 mg Magnesium Oxide (Magnesium Oxide) 400 mg PO DAILY [facility] Methylprednisolone Sodium Succinate (Solu-Medrol) 125 mg IVPUSH Q12H [facility] Last Admin: 12/18/19 10:10 Dose: Not Given Metoprolol Tartrate (Lopressor) 50 mg PO BID [facility] Mirtazapine (Remeron) 30 mg PO BEDTIME [facility] Ondansetron HCl (Zofran Odt) 4 mg PO Q6H PRN PRN Reason: nausea, able to take PO Ondansetron HCl (Zofran) 4 mg IV Q6H PRN PRN Reason: Nausea/Vomiting Triamterene/HCTZ (Dyazide 25-37.5 Mg) 1 each PO DAILY [facility] Discontinued Medications Etomidate (Amidate) 40 mg IVPUSH .STK-MED ONE Stop: 12/14/19 23:41 Haloperidol Lactate (Haldol) 5 mg IVPUSH ONETIME ONE Stop: 12/17/19 09:01 Last Admin: 12/17/19 09:11 Dose: 5 mg Heparin Sodium (Porcine) (Heparin Lock Flush 100 Units/Ml) Confirm Administered Dose 500 units .ROUTE .STK-MED ONE Stop: 12/17/19 18:27 Last Admin: 12/17/19 20:01 Dose: Not Given Hydromorphone HCl (Dilaudid) 0.25 mg IVPUSH ONETIME ONE Stop: 12/14/19 21:24 Last Admin: 12/14/19 21:43 Dose: 0.25 mg Sodium Chloride (Normal Saline) 1,000 mls @ 150 mls/hr IV ASDIRECTED [facility] Last Infusion: 12/16/19 09:23 Dose: 250 mls/hr Azithromycin 500 mg/ Sodium (Chloride) 250 mls @ 250 mls/hr IV Q24H [facility] Stop: 12/18/19 23:30 Last Admin: 12/17/19 21:16 Dose: 250 mls/hr Ceftriaxone Sodium 2 gm/ (Sodium Chloride) 100 mls @ 200 mls/hr IV Q24H [facility] Last Admin: 12/14/19 23:32 Dose: 200 mls/hr Propofol (Diprivan 100 Ml) Confirm Administered Dose 100 mls @ as directed .ROUTE .STK-MED ONE Stop: 12/15/19 00:02 Last Admin: 12/15/19 00:23 Dose: Not Given Ceftriaxone Sodium 2 gm/ (Sodium Chloride) 100 mls @ 200 mls/hr IV Q24H [facility] Last Admin: 12/15/19 22:38 Dose: 200 mls/hr Magnesium Sulfate 2 gm/ Premix 50 mls @ 25 mls/hr IV ONETIME ONE Stop: 12/15/19 09:59 Last Admin: 12/15/19 08:03 Dose: 25 mls/hr Magnesium Sulfate (Magnesium Sulfate In Water Premix) Confirm Administered Dose 50 mls @ as directed .ROUTE .[facility]-MED ONE Stop: 12/15/19 07:56 Last Admin: 12/15/19 08:02 Dose: Not Given Midazolam HCl 50 mg/ Sodium (Chloride) 50 mls @ 2.44 mls/hr IV TITRATE SHAUN; Protocol Lactated Ringer's (Ringers, Lactated) 1,000 mls @ 250 mls/hr IV ASDIRECTED [facility] Last Infusion: 12/16/19 20:44 Dose: 150 mls/hr Lactated Ringer's (Ringers, Lactated) 1,000 mls @ 150 mls/hr IV ASDIRECTED [facility] Last Admin: 12/17/19 08:35 Dose: 150 mls/hr Sodium Chloride (Normal Saline) Confirm Administered Dose 1,000 mls @ as directed .ROUTE .[facility]-MED ONE Stop: 12/17/19 17:24 Last Admin: 12/17/19 20:01 Dose: Not Given Magnesium Sulfate 4 gm/ Premix 100 mls @ 25 mls/hr IV ONETIME ONE Stop: 12/17/19 23:59 Last Admin: 12/17/19 20:20 Dose: 25 mls/hr Ketorolac Tromethamine (Toradol) 15 mg IM Q6H PRN PRN Reason: Pain (moderate 4-6) Ketorolac Tromethamine (Toradol) 15 mg IM Q6H PRN PRN Reason: Pain (moderate 4-6) Metoprolol Tartrate (Lopressor) 2.5 mg IVPUSH ONETIME ONE Stop: 12/15/19 06:06 Last Admin: 12/15/19 06:13 Dose: 2.5 mg Metoprolol Tartrate (Lopressor) 2.5 mg IVPUSH Q12HR [facility] Last Admin: 12/18/19 07:59 Dose: 2.5 mg Metoprolol Tartrate (Lopressor) 10 mg IVPUSH ONETIME ONE Stop: 12/18/19 17:21 Last Admin: 12/18/19 17:00 Dose: 10 mg Morphine Sulfate (Morphine) 1 mg IVPUSH Q4H PRN PRN Reason: Pain (severe 7-10) Stop: 12/15/19 22:06 Ondansetron HCl (Zofran) 4 mg IVPUSH ONETIME ONE Stop: 12/14/19 21:23 Last Admin: 12/14/19 21:43 Dose: 4 mg Pantoprazole Sodium (Protonix Iv) 40 mg IVPUSH DAILY@0600 [facility] Last Admin: 12/18/19 06:13 Dose: 40 mg Quetiapine Fumarate (Seroquel) 100 mg PO ONETIME ONE Stop: 12/17/19 21:01 Last Admin: 12/17/19 20:21 Dose: 100 mg Succinylcholine Chloride (Quelicin) 200 mg .ROUTE .STK-MED ONE Stop: 12/14/19 23:41 Sepsis Event Note - Evaluation Sepsis Screening Result: Sepsis Risk - Focused Exam Vital Signs: Vital Signs Temp Pulse Resp BP BP Pulse Ox Pulse Ox 12/18/19 17:42 99.2 F 25 H 142/83 H 97 12/18/19 17:41 19 142/83 H 95 12/18/19 17:40 28 H 96 12/18/19 17:30 21 H 97 12/18/19 17:15 28 H 95 12/18/19 17:09 33 H 134/88 94 L 12/18/19 17:08 31 H 94 L 12/18/19 17:02 18 168/92 H 93 L 12/18/19 17:01 25 H 93 L 12/18/19 17:00 156 H 27 H 168/92 H 93 L 12/18/19 16:49 33 H 153/93 H 94 L 12/18/19 16:48 34 H 97 12/18/19 16:45 21 H 94 L 12/18/19 16:30 29 H 96 12/18/19 16:28 133/83 12/18/19 16:27 23 H 133/83 97 12/18/19 16:26 18 97 12/18/19 16:25 20 97 12/18/19 16:15 21 H 95 12/18/19 16:08 26 H 177/96 H 86 L 12/18/19 16:07 21 H 87 L 12/18/19 16:06 23 H 162/104 H 87 L 12/18/19 16:05 26 H 89 L 12/18/19 16:00 99.4 F 25 H 177/96 H 88 L 12/18/19 15:45 29 H 86 L 12/18/19 15:30 28 H 87 L 12/18/19 15:15 25 H 88 L 12/18/19 15:00 21 H 90 L 12/18/19 14:45 22 H 90 L 12/18/19 14:30 23 H 92 L 12/18/19 14:15 19 92 L 12/18/19 14:00 15 94 L 12/18/19 13:45 17 96 12/18/19 13:30 17 96 12/18/19 13:15 16 97 12/18/19 13:00 20 95 12/18/19 12:59 95 12/18/19 12:45 18 86 L 12/18/19 12:30 19 88 L 12/18/19 12:15 31 H 94 L 12/18/19 12:01 17 94 L 12/18/19 12:00 98.2 F 26 H 143/101 H 143/101 H 95 12/18/19 11:59 26 H 96 12/18/19 11:45 27 H 96 12/18/19 11:30 22 H 95 12/18/19 11:15 18 96 12/18/19 11:00 26 H 96 12/18/19 10:45 25 H 90 L 12/18/19 10:30 15 91 L 12/18/19 10:15 18 94 L 12/18/19 10:00 19 95 12/18/19 09:45 19 97 12/18/19 09:30 21 H 96 12/18/19 09:15 21 H 94 L 12/18/19 08:49 97.8 F 23 H 142/92 H 96 12/18/19 07:59 134 H 124/93 H 12/18/19 06:59 Pulse Ox 12/18/19 17:42 12/18/19 17:41 12/18/19 17:40 12/18/19 17:30 12/18/19 17:15 12/18/19 17:09 12/18/19 17:08 12/18/19 17:02 12/18/19 17:01 12/18/19 17:00 12/18/19 16:49 12/18/19 16:48 12/18/19 16:45 12/18/19 16:30 12/18/19 16:28 12/18/19 16:27 12/18/19 16:26 12/18/19 16:25 12/18/19 16:15 12/18/19 16:08 12/18/19 16:07 12/18/19 16:06 12/18/19 16:05 12/18/19 16:00 12/18/19 15:45 12/18/19 15:30 12/18/19 15:15 12/18/19 15:00 12/18/19 14:45 12/18/19 14:30 12/18/19 14:15 12/18/19 14:00 12/18/19 13:45 12/18/19 13:30 12/18/19 13:15 12/18/19 13:00 12/18/19 12:59 12/18/19 12:45 12/18/19 12:30 12/18/19 12:15 12/18/19 12:01 12/18/19 12:00 12/18/19 11:59 12/18/19 11:45 12/18/19 11:30 12/18/19 11:15 12/18/19 11:00 12/18/19 10:45 12/18/19 10:30 12/18/19 10:15 12/18/19 10:00 12/18/19 09:45 12/18/19 09:30 12/18/19 09:15 12/18/19 08:49 12/18/19 07:59 12/18/19 06:59 95 Date Exam was Performed: 12/18/19 Time Exam was Performed: 18:58 - Problem List & Annotations (1) Leukocytosis SNOMED Code(s): 560464382, 221262825 Code(s): D72.829 - ELEVATED WHITE BLOOD CELL COUNT, UNSPECIFIED Status: Acute Current Visit: Yes (2) Thrombocytosis SNOMED Code(s): 4719609 Code(s): D47.3 - ESSENTIAL (HEMORRHAGIC) THROMBOCYTHEMIA Status: Acute Current Visit: Yes (3) Hypochloremia SNOMED Code(s): 84084046 Code(s): E87.8 - OT DISORDERS OF ELECTROLYTE AND FLUID BALANCE, NEC Status : Acute Current Visit: Yes (4) Hypoalbuminemia SNOMED Code(s): 483848473 Code(s): E88.09 - OT DISORDERS OF PLASMA-PROTEIN METABOLISM, NEC Status: Acute Current Visit: Yes (5) Elevated troponin SNOMED Code(s): 143079444, 707079738, 751626339 Code(s): R79.89 - OTHER SPECIFIED ABNORMAL FINDINGS OF BLOOD CHEMISTRY Status: Acute Current Visit: Yes (6) Chronic respiratory acidosis SNOMED Code(s): 9598644 Code(s): E87.2 - ACIDOSIS Status: Acute Current Visit: Yes (7) End stage COPD SNOMED Code(s): 394903287 Code(s): J44.9 - CHRONIC OBSTRUCTIVE PULMONARY DISEASE, UNSPECIFIED Status : Acute Current Visit: Yes (8) Respiratory failure with hypoxia and hypercapnia SNOMED Code(s): 28696061 Code(s): J96.91 - RESPIRATORY FAILURE, UNSPECIFIED WITH HYPOXIA; J96.92 - RESPIRATORY FAILURE, UNSPECIFIED WITH HYPERCAPNIA Status: Acute Current Visit: Yes Qualifiers: Chronicity: acute on chronic Qualified Code(s): J96.21 - Acute and chronic respiratory failure with hypoxia; J96.22 - Acute and chronic respiratory failure with hypercapnia (9) COPD exacerbation SNOMED Code(s): 204740838, 823862945 Code(s): J44.1 - CHRONIC OBSTRUCTIVE PULMONARY DISEASE W (ACUTE) EXACERBATION Status: Acute Priority: High Current Visit: No (10) Hypomagnesemia SNOMED Code(s): 024608060 Code(s): E83.42 - HYPOMAGNESEMIA Status: Acute Current Visit: No (11) Tachycardia SNOMED Code(s): 3924012 Code(s): R00.0 - TACHYCARDIA, UNSPECIFIED Status: Acute Current Visit: Yes (12) Severe malnutrition SNOMED Code(s): 41265637 Code(s): E43 - UNSPECIFIED SEVERE PROTEIN-CALORIE MALNUTRITION Status: Acute Current Visit: Yes (13) Sinus tachycardia seen on monitor technician SNOMED Code(s): 964492831 Code(s): R00.0 - TACHYCARDIA, UNSPECIFIED Status: Acute Current Visit: Yes (14) RSV infection SNOMED Code(s): 29631171 Code(s): B97.4 - RESPIRATORY SYNCYTIAL VIRUS CAUSING DISEASES CLASSD [id number] Status: Acute Current Visit: Yes (15) Acute delirium SNOMED Code(s): 9922970, 7314174 Code(s): R41.0 - DISORIENTATION, UNSPECIFIED Status: Acute Current Visit : Yes (16) HTN (hypertension) SNOMED Code(s): 82480444 Code(s): I10 - ESSENTIAL (PRIMARY) HYPERTENSION Status: Chronic Priority : Low Current Visit: No Qualifiers: Hypertension type: unspecified Qualified Code(s): I10 - Essential (primary ) hypertension (17) Mycoplasma pneumonia SNOMED Code(s): 19060208 Code(s): J15.7 - PNEUMONIA DUE TO MYCOPLASMA PNEUMONIAE Status: Acute Priority: High Current Visit: No Qualifiers: Laterality: unspecified laterality Lung location: unspecified part of lung Qualified Code(s): J15.7 - Pneumonia due to Mycoplasma pneumoniae - My Orders Last 24 Hours: My Active Orders 12/18/19 06:07 hydrALAZINE [Apresoline] 10 mg IVPUSH Q2H PRN 12/18/19 10:10 PT Evaluation and Treatment [CONS] Routine 12/18/19 10:11 OT Evaluation and Treatment [CONS] Routine 12/18/19 17:00 Blood Culture x2 Reflex Set [OM.PC] Stat 12/18/19 17:10 CULTURE URINE [RM] Routine 12/18/19 17:19 CULTURE BLOOD [BC] Stat 12/18/19 17:29 CULTURE BLOOD [BC] Stat 12/18/19 18:40 ALPRAZolam [Xanax] 1 mg PO BID PRN 12/18/19 21:00 Azithromycin [Zithromax] 500 mg PO BEDTIME Metoprolol Tartrate [Lopressor] 50 mg PO BID Mirtazapine [Remeron] 30 mg PO BEDTIME 12/19/19 09:00 HCTZ/Triamterene [Dyazide 25-37.5 MG] 1 each PO DAILY Magnesium Oxide 400 mg PO DAILY 12/19/19 20:00 Overnight Pulse Oximetry [RC] Click to Edit - Plan Plan:: Community acquired pneumonia Hypoxemic and hypercapnic respiratory failure COPD exacerbation in the setting on end stage COPD Chronic respiratory acidosis 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 Patient came in to ED for worsening shortness of breath--> placed on BiPAP--> admitted to ICU on BIPAP Mental status declined and PCO2>100 + pH 7.1--> Intubated Respiratory status stabilized but has continued to wax and wane since admission - was transitioned to nasal canula but had to be back on BiPAP after O2Sat dropped to 75% - O2Sat drops <80% when asleep because she is a mouth breather Infectious disease - Respiratory panel Positive for RSV and Mycoplasma - Negative for influenza--> will d/c Tamiflu - Leukocytosis resolved - Procalcitonin elevated Acute Delirium - Overnight patient was hallucinating with animals in the ceiling of her room and became agitated when nursing tried to contradict her to calm her down PL[employer] SYSTEM[employer] Neurologic: Monitor mental status Avoid interactions during the night Respiratory: Continue BiPAP with same parameters Transition to NC if possible if not hi flow oxygen might be an option Atrovent q8h Budesonide q12 IV Solumedrol ABGs daily and as needed Cardiovascular: Metoprolol for tachycardia transition to PO Trend BP and start medication if required PRN hydralazine for BP > 180/100 Renal and Electrolytes: Replace magnesium Continue Pinto catheter Monitor urine output, goal >30ml/hh Repeat labs in AM GI and hepatology: Clear liquid diet Advance diet as tolerated Endocrine and Metabolism: Discontinue glucose checks Infectious Disease Continue Azithromycin Discontinue Tamiflu and Rocephin Monitor temp and panculture if greater than 99.2 Procalcitonin every 48h Hematology, Oncology and Immune system: No signs of active bleeding Goal Hb >7 PROPHYLAXIS DVT- Lovenox GI- not indicated CODE STATUS: FULL CODE DISPOSITION: Patient will remain in the ICU, extubated yesterday but respiratory status continues to wax and wane requiring BIPAP almost constantly
[2019-12-18] MEDS ORDERED: Azithromycin 250 MG Tab PO SCH (21:00)
[2019-12-18] MEDS: Mirtazapine 30 MG Tab PO SCH (21:06)
[2019-12-18] MEDS: Metoprolol Tartrate 50 MG Tab PO SCH (21:06)
[2019-12-18] MEDS: Acetaminophen/HYDROcodone 325-5 MG Tab PO PRN (22:09)
[2019-12-19] MEDS: Acetaminophen/HYDROcodone 325-5 MG Tab PO PRN ×4 (03:55→21:55)
[2019-12-19] MEDS: Ipratropium 0.02% 0.5 MG/2.5 ML Neb Soln NEB SCH ×3 (06:37→20:17)
[2019-12-19] MEDS: Budesonide 0.5 MG/2 ML Neb Susp NEB SCH ×2 (06:37→20:17)
[2019-12-19] MEDS: guaiFENesin 600 MG Tab.ER PO SCH ×3 (08:04→20:20)
[2019-12-19] MEDS: Hydrochlorothiazide/Triamterene 25-37.5 MG Cap PO SCH (08:04)
[2019-12-19] MEDS: Magnesium Oxide 400 MG Tab PO SCH (08:04)
[2019-12-19] MEDS: ALPRAZolam 1 MG Tab PO PRN ×2 (08:04→20:20)
[2019-12-19] MEDS: Metoprolol Tartrate 50 MG Tab PO SCH ×2 (08:04→20:20)
[2019-12-19] MEDS: Enoxaparin 40 MG/0.4 ML Syringe SUBCUT SCH (08:05)
[2019-12-19] MEDS: Docusate Sodium 100 MG Cap PO PRN (09:22)
[2019-12-19] MEDS: methylPREDNISolone Sodium Succinate 125 MG/2 ML SDV IVPUSH SCH ×2 (10:28→21:55)
[2019-12-19] MEDS: Potassium Phosphates 30 MMOLE in Sodium Chloride 0.9% 500 ML IV SCH ×3 (11:37→17:14)
[2019-12-19] MEDS: Potassium Chloride 20 MEQ Tab.ER PO SCH ×2 (15:25→20:19)
[2019-12-19] MEDS: Nystatin Susp 100,000 Unit/ML 5 ML Oral Syringe PO SCH ×2 (17:02→20:20)
[2019-12-19] MEDS: Mirtazapine 30 MG Tab PO SCH (20:20)
[2019-12-20] MEDS: Ketorolac 15 MG/ML SDV IVPUSH PRN (05:17)
[2019-12-20] MEDS: Ipratropium 0.02% 0.5 MG/2.5 ML Neb Soln NEB SCH ×3 (05:20→20:09)
[2019-12-20] MEDS: Budesonide 0.5 MG/2 ML Neb Susp NEB SCH ×2 (05:20→20:09)
[2019-12-20] MEDS: methylPREDNISolone Sodium Succinate 125 MG/2 ML SDV IVPUSH SCH ×2 (09:08→22:18)
--- NOTE | 2019-12-20 09:15 | PCM.PREANE ---
Preanesthetic Assessment - Anesthesia/Transfusion/Family Hx Anesthesia History: Prior Anesthesia Without Reaction Family History of Anesthesia Reaction: No Transfusion History: No Prior Transfusion(s) Intubation History: Unknown - Review of Systems General: No Symptoms Pulmonary: No Symptoms (End Stage COPD on Home O2 constantly at 4.5 LPM nasal cannula.), Shortness of Breath, Cough, Sputum Cardiovascular: No Symptoms (History of HTN/), Dyspnea on Exertion Gastrointestinal: No Symptoms Neurological: No Symptoms (Vertigo), Headache (history of migraines/improved), Tingling (due to shoulder replacement) Other: Reports: Easy Bruising, Throat Pain (white patches in throat.), Depression, Anxiety - Physical Assessment NPO Status Date: 12/19/19 NPO Status Time: 00:01 Vital Signs: Last Vital Signs Temp 37.1 C 12/20/19 08:00 Pulse 105 H 12/19/19 20:20 Resp 24 H 12/20/19 08:00 BP 139/90 12/20/19 08:00 Pulse Ox 88 L 12/20/19 08:00 Height: 1.65 m Weight: 54.54 kg ASA Class: 3 Mental Status: Alert & Oriented x3 Airway Class: Mallampati = 2 Dentition: Reports: Normal Dentition, Missing Tooth/Teeth, Caries Thyro-Mental Finger Breadths: 3 Mouth Opening Finger Breadths: 3 ROM/Head Extension: Full Lungs: Clear to Auscultation, Decreased Breath Sounds Cardiovascular: Regular Rate, Regular Rhythm, No Murmurs - Lab Values: Laboratory Last Values WBC 7.69 K/mm3 (3.98-10.04) 12/19/19 05:25 RBC 4.33 M/mm3 (3.98-5.22) 12/19/19 05:25 Hgb 12.0 gm/dl (11.2-15.7) 12/19/19 05:25 Hct 38.2 % (34.1-44.9) 12/19/19 05:25 MCV 88.2 fl (79.4-94.8) 12/19/19 05:25 MCH 27.7 pg (25.6-32.2) 12/19/19 05:25 MCHC 31.4 g/dl (32.2-35.5) L 12/19/19 05:25 RDW Std Deviation 39.9 fL (36.4-46.3) 12/19/19 05:25 Plt Count 403 K/mm3 (182-369) H D 12/19/19 05:25 MPV 9.5 fl (9.4-12.3) 12/19/19 05:25 Neut % (Auto) 92.2 % (34.0-71.1) H 12/19/19 05:25 Lymph % (Auto) 3.8 % (19.3-51.7) L 12/19/19 05:25 [place] % (Auto) 3.1 % (4.7-12.5) L 12/19/19 05:25 Eos % (Auto) 0 (0.7-5.8) L 12/19/19 05:25 Baso % (Auto) 0.1 % (0.1-1.2) 12/19/19 05:25 Neut # (Auto) 7.09 K/mm3 (1.56-6.13) H 12/19/19 05:25 Lymph # (Auto) 0.29 K/mm3 (1.18-3.74) L 12/19/19 05:25 [place] # (Auto) 0.24 K/mm3 (0.24-0.36) 12/19/19 05:25 Eos # (Auto) 0.00 K/mm3 (0.04-0.36) L 12/19/19 05:25 Baso # (Auto) 0.01 K/mm3 (0.01-0.08) 12/19/19 05:25 Neutrophils % (Manual) 93 % (40-60) H 12/14/19 21:00 Band Neutrophils % 0 % (0-10) 12/14/19 21:00 Lymphocytes % (Manual) 4 % (20-40) L 12/14/19 21:00 Atypical Lymphs % 0 % 12/14/19 21:00 Monocytes % (Manual) 3 % (2-10) 12/14/19 21:00 Eosinophils % (Manual) 0 % (0.7-5.8) L 12/14/19 21:00 Basophils % (Manual) 0 (0.1-1.2) L 12/14/19 21:00 Manual Slide Review Abnormal smear 12/19/19 05:25 Toxic Granulation Moderate 12/14/19 21:00 Platelet Estimate Increased 12/14/19 21:00 Plt Morphology Comment See note 12/14/19 21:00 RBC Morph Comment Normal 12/14/19 21:00 PT 12.8 SECONDS (9.7-12.0) H 12/14/19 21:10 INR 1.19 12/14/19 21:10 APTT 27 SECONDS (22-31) 12/14/19 21:10 Puncture Site Lt brachial 12/19/19 05:00 ABG pH 7.47 (7.35-7.45) H 12/19/19 05:00 ABG pCO2 50.3 mmHg (35.0-45.0) H 12/19/19 05:00 ABG pO2 56.0 mmHg (80.0-100.0) L 12/19/19 05:00 ABG HCO3 36.4 meq/L (22.0-26.0) H 12/19/19 05:00 ABG O2 Saturation 87.2 % (96.0-97.0) L 12/19/19 05:00 ABG Base Excess 11.4 (-2-2.0) H 12/19/19 05:00 Johnny Test Positive 12/18/19 09:32 A-a Gradient 167 mmHg 12/19/19 05:00 O2 Delivery Device Cannula 12/19/19 05:00 Oxygen Flow Rate 5.0 12/19/19 05:00 FiO2 40.00 % (21.00-100.00) 12/19/19 05:00 Tidal Volume 300.0 cc 12/16/19 08:23 PEEP 8.0 cmH20 12/16/19 08:23 Pressure Support 0.0 cmH2O 12/15/19 01:12 Sodium 142 mEq/L (136-145) 12/19/19 05:25 Potassium 3.0 mEq/L (3.5-5.1) L 12/19/19 05:25 Chloride 99 mEq/L (98-107) 12/19/19 05:25 Carbon Dioxide 39 mEq/L (21-32) H 12/19/19 05:25 Anion Gap 7.0 (5-15) 12/19/19 05:25 BUN 23 mg/dL (7-18) H 12/19/19 05:25 Creatinine 0.8 mg/dL (0.55-1.02) 12/19/19 05:25 Est Cr Clr Drug Dosing 68.36 mL/min 12/19/19 05:25 Estimated GFR (MDRD) > 60 mL/min (>60) 12/19/19 05:25 BUN/Creatinine Ratio 28.8 (14-18) H 12/19/19 05:25 Glucose 141 mg/dL (74-106) H 12/19/19 05:25 POC Glucose 226 mg/dL (70-105) H 12/17/19 18:30 Lactic Acid 1.5 mmol/L (0.4-2.0) 12/18/19 17:19 Calcium 9.0 mg/dL (8.5-10.1) 12/19/19 05:25 Phosphorus 2.2 mg/dL (2.6-4.7) L 12/19/19 05:25 Magnesium 2.0 mg/dl (1.8-2.4) 12/19/19 05:25 Total Bilirubin 0.4 mg/dL (0.2-1.0) 12/14/19 21:00 AST 11 U/L (15-37) L 12/14/19 21:00 ALT 12 U/L (14-59) L 12/14/19 21:00 Alkaline Phosphatase 113 U/L (46-116) 12/14/19 21:00 Troponin I 0.084 ng/mL (0.00-0.056) H* 12/14/19 21:00 C-Reactive Protein 30.4 mg/dL (<1.0) H* 12/14/19 21:00 NT-Pro-B Natriuret Pep 5542 pg/mL (0-125) H 12/14/19 21:10 Total Protein 7.9 g/dl (6.4-8.2) 12/14/19 21:00 Albumin 2.9 g/dl (3.4-5.0) L 12/14/19 21:00 Globulin 5.0 gm/dL 12/14/19 21:00 Albumin/Globulin Ratio 0.6 (1-2) L 12/14/19 21:00 Procalcitonin 0.36 ng/mL (<0.10) H 12/17/19 11:39 Urine Color Yellow (Yellow) 12/18/19 17:10 Urine Appearance Clear (Clear) 12/18/19 17:10 Urine pH 7.0 (5.0-8.0) 12/18/19 17:10 Ur Specific [place] 1.025 (1.005-1.030) 12/18/19 17:10 Urine Protein 1+ (Negative) H 12/18/19 17:10 Urine Glucose (UA) Negative (Negative) 12/18/19 17:10 Urine Ketones Negative (Negative) 12/18/19 17:10 Urine Occult Blood 3+ (Negative) H 12/18/19 17:10 Urine Nitrite Negative (Negative) 12/18/19 17:10 Urine Bilirubin Negative (Negative) 12/18/19 17:10 Urine Urobilinogen 0.2 (0.2-1.0) 12/18/19 17:10 Ur Leukocyte Esterase Negative (Negative) 12/18/19 17:10 U Hyaline Cast (Auto) 5-10 /lpf (0-5) H 12/14/19 23:50 Urine RBC >100 /hpf (0-5) H 12/18/19 17:10 Urine WBC 0-5 /hpf (0-5) 12/18/19 17:10 Ur Squamous Epith Cells 0-5 /hpf (0-5) 12/18/19 17:10 Amorphous Sediment Few /hpf (NOT SEEN) H 12/18/19 17:10 Urine Bacteria Few /hpf (FEW) 12/18/19 17:10 Urine Mucus Not seen /hpf (FEW) 12/18/19 17:10 Adenovirus (PCR) Not detected (Not Detected) 12/14/19 23:42 B. pertussis DNA (PCR) Not detected (Not Detected) 12/14/19 23:42 B.parapertussis DNA PCR Not detected (Not Detected) 12/14/19 23:42 C. pneumoniae DNA (PCR) Not detected (Not Detected) 12/14/19 23:42 Coronavirus (PCR) Not detected (Not Detected) 12/14/19 23:42 Human Metapneumovir PCR Not detected (Not Detected) 12/14/19 23:42 Influenza A (RT-PCR) Not detected (Not Detected) 12/14/19 23:42 Influenza B (RT-PCR) Not detected (Not Detected) 12/14/19 23:42 Mycoplasma pneumon IgM Positive (NEGATIVE) H 12/15/19 05:30 M. pneumoniae (PCR) Not detected (Not Detected) 12/14/19 23:42 Parainfluen 1,2,3,4 PCR Not detected (Not Detected) 12/14/19 23:42 RSV (PCR) Detected (Not Detected) H 12/14/19 23:42 Entero/Rhino (PCR) Not detected (Not Detected) 12/14/19 23:42 All labs reviewed and noted and within acceptable ranges to proceed with procedure. - Imaging/EKG Impressions: EKG: - Allergies Allergies/Adverse Reactions: Allergies Allergy/AdvReac Type Severity Reaction Status Date / Time No Known Allergies Allergy Verified 12/15/19 03:59 - Anesthesia Plan Pre-Op Medication Ordered: Beta Sonja Beta Sonja: Metoprolol Med Last Dose Date: 12/19/19 Med Last Dose Time: 20:20 - Acknowledgements Anesthesia Type Planned: MAC Pt an Appropriate Candidate for the Planned Anesthesia: Yes Alternatives and Risks of Anesthesia Discussed w Pt/Guardian: Yes Pt/Guardian Understands and Agrees with Anesthesia Plan: Yes PreAnesthesia Questionnaire HEENT History: Reports: Impaired Vision Cardiovascular History: Reports: Hypertension, Other (See Below) Respiratory History: Reports: Asthma, Bronchitis, Recurrent, COPD, Pneumonia, Recurrent Other Respiratory History: end stage COPD, pt is Oxygen dependent Gastrointestinal History: Reports: Colon Polyp Genitourinary History: Reports: Renal Calculus, Urinary Incontinence WATER FILTRATION TECHNICIAN History: Reports: Musculoskeletal History: Reports: Arthritis, Osteoporosis Other Musculoskeletal History: c/o back pain Neurological History: Reports: Migraines Psychiatric History: Reports: Anxiety, Depression Endocrine/Metabolic History: Reports: Osteoporosis Hematologic History: Reports: None - Infectious Disease History Infectious Disease History: Reports: Chicken Pox - Past Surgical History HEENT Surgical History: Reports: Oral Surgery Female Surgical History: Reports: D&C, Hysterectomy Musculoskeletal Surgical History: Reports: Shoulder Replacement Dermatological Surgical History: Reports: None - SUBSTANCE USE Smoking Status *Q: Former Smoker Tobacco Use Within Last Twelve Months: No Second Hand Smoke Exposure: No - HOME MEDS Home Medications: Home Meds Budesonide/Formoterol Fumarate [Symbicort 80-4.5 MCG] 2 puff IH BID 02/25/14 [ History] Triamterene/Hydrochlorothiazid [Triamterene-HCTZ 37.5-25 MG] 1 each PO DAILY # 30 capsule 04/23/17 [Rx] Mirtazapine [Remeron] 30 mg PO BEDTIME 08/11/17 [History] ALPRAZolam [Xanax] 1 mg PO BID PRN 10/11/17 [History] Albuterol [Proair HFA] 2 puff INH Q4HR PRN 12/01/17 [History] Hydrocodone/Acetaminophen [Hydrocodon-Acetaminophn 10-325] 10 - 325 mg PO Q6H PRN 12/26/17 [History] guaiFENesin [Mucinex] 1,200 mg PO BID #30 tab.er 12/31/17 [Rx] Roflumilast [Daliresp] 500 mg PO DAILY 04/24/18 [History] Tiotropium [place] [Spiriva Respimat] 2 puff INH DAILY 04/24/18 [History] Magnesium Oxide 500 mg PO DAILY 10/26/18 [History] Metoprolol Tartrate [Lopressor] 50 mg PO Q12H #60 tablet 11/04/18 [Rx] Azithromycin 250 mg PO ASDIRECTED 12/18/19 [History] Potassium Chloride [Klor-Con 10] 10 meq PO DAILY PRN 12/18/19 [History] - CURRENT (IN HOUSE) MEDS Current Meds: Current Medications Hydrocodone Bitart/Acetaminophen ([place] 325-5 Mg) 1 tab PO Q6H PRN PRN Reason: Pain Last Admin: 12/19/19 21:55 Dose: 1 tab Alprazolam (Xanax) 1 mg PO BID PRN PRN Reason: Anxiety Last Admin: 12/19/19 20:20 Dose: 1 mg Budesonide (Pulmicort) 0.5 mg NEB BIDRT [facility] Last Admin: 12/20/19 05:20 Dose: 0.5 mg Docusate Sodium (Colace) 100 mg PO BID PRN PRN Reason: Constipation Last Admin: 12/19/19 09:22 Dose: 100 mg Enoxaparin Sodium (Lovenox) 40 mg SUBCUT DAILY [facility] Last Admin: 12/19/19 08:05 Dose: 40 mg Guaifenesin (Mucinex) 600 mg PO TID [facility] Last Admin: 12/19/19 20:20 Dose: 600 mg Hydralazine HCl (Apresoline) 10 mg IVPUSH Q2H PRN PRN Reason: Hypertension Last Admin: 12/18/19 16:16 Dose: 10 mg Propofol (Diprivan 100 Ml) 100 mls @ 1.463 mls/hr IV TITRATE [facility]; Protocol Last Admin: 12/16/19 02:10 Dose: 32 mcg/kg/min, 9.362 mls/hr Midazolam HCl 100 mg/ Sodium (Chloride) 100 mls @ 0.5 mls/hr IV ASDIRECTED [facility] Last Infusion: 12/15/19 17:38 Dose: 5 mls/hr Ipratropium Brooks (Atrovent) 0.5 mg NEB Q8HRRT [facility] Last Admin: 12/20/19 05:20 Dose: 0.5 mg Ketorolac Tromethamine (Toradol) 15 mg IVPUSH Q6H PRN PRN Reason: Pain (moderate 4-6) Last Admin: 12/20/19 05:17 Dose: 15 mg Magnesium Oxide (Magnesium Oxide) 400 mg PO DAILY [facility] Last Admin: 12/19/19 08:04 Dose: 400 mg Methylprednisolone Sodium Succinate (Solu-Medrol) 125 mg IVPUSH Q12H [facility] Last Admin: 12/20/19 09:08 Dose: 125 mg Metoprolol Tartrate (Lopressor) 50 mg PO BID [facility] Last Admin: 12/19/19 20:20 Dose: 50 mg Mirtazapine (Remeron) 30 mg PO BEDTIME [facility] Last Admin: 12/19/19 20:20 Dose: 30 mg Nystatin (Nystatin Oral Syringe) 5 unit PO QID [facility] Last Admin: 12/19/19 20:20 Dose: 5 unit Ondansetron HCl (Zofran Odt) 4 mg PO Q6H PRN PRN Reason: nausea, able to take PO Ondansetron HCl (Zofran) 4 mg IV Q6H PRN PRN Reason: Nausea/Vomiting Triamterene/HCTZ (Dyazide 25-37.5 Mg) 1 each PO DAILY [facility] Last Admin: 12/19/19 08:04 Dose: 1 each Discontinued Medications Acetaminophen/Codeine Phosphate (Tylenol With Codeine No.3 300mg/30mg) 1 tab PO Q6H PRN PRN Reason: Pain (severe 7-10) Last Admin: 12/18/19 14:13 Dose: 1 tab Azithromycin (Zithromax) 500 mg PO BEDTIME [facility] Stop: 12/18/19 21:01 Last Admin: 12/18/19 21:05 Dose: 500 mg Etomidate (Amidate) 40 mg IVPUSH .K-MED ONE Stop: 12/14/19 23:41 Haloperidol Lactate (Haldol) 5 mg IVPUSH ONETIME ONE Stop: 12/17/19 09:01 Last Admin: 12/17/19 09:11 Dose: 5 mg Heparin Sodium (Porcine) (Heparin Lock Flush 100 Units/Ml) Confirm Administered Dose 500 units .ROUTE .[facility] ONE Stop: 12/17/19 18:27 Last Admin: 12/17/19 20:01 Dose: Not Given Hydromorphone HCl (Dilaudid) 0.25 mg IVPUSH ONETIME ONE Stop: 12/14/19 21:24 Last Admin: 12/14/19 21:43 Dose: 0.25 mg Sodium Chloride (Normal Saline) 1,000 mls @ 150 mls/hr IV ASDIRECTED [facility] Last Infusion: 12/16/19 09:23 Dose: 250 mls/hr Azithromycin 500 mg/ Sodium (Chloride) 250 mls @ 250 mls/hr IV Q24H [facility] Stop: 12/18/19 23:30 Last Admin: 12/17/19 21:16 Dose: 250 mls/hr Ceftriaxone Sodium 2 gm/ (Sodium Chloride) 100 mls @ 200 mls/hr IV Q24H [facility] Last Admin: 12/14/19 23:32 Dose: 200 mls/hr Propofol (Diprivan 100 Ml) Confirm Administered Dose 100 mls @ as directed .ROUTE .[facility] ONE Stop: 12/15/19 00:02 Last Admin: 12/15/19 00:23 Dose: Not Given Norepinephrine Bitartrate 4 mg (/ Dextrose/Water) 250 mls @ 7.5 mls/hr IV TITRATE [facility]; Protocol Ceftriaxone Sodium 2 gm/ (Sodium Chloride) 100 mls @ 200 mls/hr IV Q24H [facility] Last Admin: 12/15/19 22:38 Dose: 200 mls/hr Magnesium Sulfate 2 gm/ Premix 50 mls @ 25 mls/hr IV ONETIME ONE Stop: 12/15/19 09:59 Last Admin: 12/15/19 08:03 Dose: 25 mls/hr Magnesium Sulfate (Magnesium Sulfate In Water Premix) Confirm Administered Dose 50 mls @ as directed .ROUTE .[facility] Stop: 12/15/19 07:56 Last Admin: 12/15/19 08:02 Dose: Not Given Midazolam HCl 50 mg/ Sodium (Chloride) 50 mls @ 2.44 mls/hr IV TITRATE [facility]; Protocol Lactated Ringer's (Ringers, Lactated) 1,000 mls @ 250 mls/hr IV ASDIRECTED [facility] Last Infusion: 12/16/19 20:44 Dose: 150 mls/hr Lactated Ringer's (Ringers, Lactated) 1,000 mls @ 150 mls/hr IV ASDIRECTED [facility] Last Admin: 12/17/19 08:35 Dose: 150 mls/hr Sodium Chloride (Normal Saline) Confirm Administered Dose 1,000 mls @ as directed .ROUTE .[facility] ONE Stop: 12/17/19 17:24 Last Admin: 12/17/19 20:01 Dose: Not Given Magnesium Sulfate 4 gm/ Premix 100 mls @ 25 mls/hr IV ONETIME ONE Stop: 12/17/19 23:59 Last Admin: 12/17/19 20:20 Dose: 25 mls/hr Potassium Phosphate 30 mmole/ (Sodium Chloride) 510 mls @ 102 mls/hr IV Q5H [facility] Stop: 12/19/19 21:59 Last Admin: 12/19/19 17:14 Dose: Not Given Ketorolac Tromethamine (Toradol) 15 mg IM Q6H PRN PRN Reason: Pain (moderate 4-6) Ketorolac Tromethamine (Toradol) 15 mg IM Q6H PRN PRN Reason: Pain (moderate 4-6) Metoprolol Tartrate (Lopressor) 2.5 mg IVPUSH ONETIME ONE Stop: 12/15/19 06:06 Last Admin: 12/15/19 06:13 Dose: 2.5 mg Metoprolol Tartrate (Lopressor) 2.5 mg IVPUSH Q12HR [facility] Last Admin: 12/18/19 07:59 Dose: 2.5 mg Metoprolol Tartrate (Lopressor) 10 mg IVPUSH ONETIME ONE Stop: 12/18/19 17:21 Last Admin: 12/18/19 17:00 Dose: 10 mg Morphine Sulfate (Morphine) 1 mg IVPUSH Q4H PRN PRN Reason: Pain (severe 7-10) Stop: 12/15/19 22:06 Ondansetron HCl (Zofran) 4 mg IVPUSH ONETIME ONE Stop: 12/14/19 21:23 Last Admin: 12/14/19 21:43 Dose: 4 mg Pantoprazole Sodium (Protonix Iv) 40 mg IVPUSH DAILY@0600 [facility] Last Admin: 12/18/19 06:13 Dose: 40 mg Potassium Chloride (Klor-Con M20) 40 meq PO BID [facility] Stop: 12/19/19 21:01 Last Admin: 12/19/19 20:19 Dose: 40 meq Quetiapine Fumarate (Seroquel) 100 mg PO ONETIME ONE Stop: 12/17/19 21:01 Last Admin: 12/17/19 20:21 Dose: 100 mg Succinylcholine Chloride (Quelicin) 200 mg .ROUTE .STK-MED ONE Stop: 12/14/19 23:41
[2019-12-20] MEDS ORDERED: Morphine 2 MG/ML SYRINGE IVPUSH ONE ×2 (09:23→11:00)
--- NOTE | 2019-12-20 09:29 | PCM.PN ---
- General Info Date of Service: 12/19/19 Subjective Update: OVERNIGHT EVENTS AND INTERVAL CHANGES - No hallucinations - Slept OK with BiPAP - Oral pain Vital signs: BP 133-142/79-90 HR 79-114 Tmax 99 Sat > 90 (40% and 4L) Labs: WBC 30.5--> 14.9--> 4.93-->7.9-->8.03 Hb 13.3--> 11.8--> 9.5-->10.8-->11.5 PO4: 2.6-->2.2--> 2.2 K 3.4-->3.0 PaO2: 85-->65 PCO2: 56.9-->50.3 Cultures: Blood x2 negative day 5 Sputum negative day 5 + Mycoplasma and RSV Diet: Regular - Patient Data Vitals - Most Recent: Last Vital Signs Temp 98.7 F 12/20/19 08:00 Pulse 105 H 12/19/19 20:20 Resp 24 H 12/20/19 08:00 BP 139/90 12/20/19 08:00 Pulse Ox 88 L 12/20/19 08:00 Weight - Most Recent: 54.54 kg - Exam Physical Findings Comments:: General: Alert, Oriented, Cooperative, Moderate Distress HEENT: Pupils Equal, Pupils Reactive, EOMI, Mucous Membr. Moist/[place] (white plaques painful) Lungs: Decreased Breath Sounds (unable to auscultate on L lung field, improvement entry in upper and middle R lung), Crackles, Wheezing. No: Rales, Rhonchi, Rub Cardiovascular: Regular Rate, Tachycardia. No: Murmurs, Gallops, Rubs GI/Abdominal Exam: Soft, Non-Tender, Abnormal Bowel Sounds. No: Distended, Guarding, Rigid, Rebound Back Exam: No: CVA Tenderness (L), CVA Tenderness (R), Paraspinal Tenderness, Vertebral Tenderness Extremities: Other (muscle wasting, cool distal extremities, dry skin) Skin: Dry, Cool Neurological: No New Focal Deficit Psy/Mental Status: Alert, Anxious Sepsis Event Note - Evaluation Sepsis Screening Result: No Definite Risk - Focused Exam Vital Signs: Vital Signs Temp Resp BP BP Pulse Ox Pulse Ox Pulse Ox 12/20/19 08:00 98.7 F 24 H 139/90 88 L 12/20/19 05:23 94 L 03/11/20 04:05 91 L 12/20/19 04:00 98.9 F 18 114/82 91 L 12/20/19 03:16 90 L 12/20/19 02:44 87 L 12/20/19 00:00 98.8 F 19 115/81 96 Date Exam was Performed: 12/23/19 Time Exam was Performed: 19:21 - Problem List & Annotations (1) Leukocytosis SNOMED Code(s): 809726200, 823649543 Code(s): D72.829 - ELEVATED WHITE BLOOD CELL COUNT, UNSPECIFIED Status: Acute Current Visit: Yes (2) Thrombocytosis SNOMED Code(s): 9756769 Code(s): D47.3 - ESSENTIAL (HEMORRHAGIC) THROMBOCYTHEMIA Status: Acute Current Visit: Yes (3) Hypochloremia SNOMED Code(s): 37911042 Code(s): E87.8 - OT DISORDERS OF ELECTROLYTE AND FLUID BALANCE, NEC Status : Acute Current Visit: Yes (4) Hypoalbuminemia SNOMED Code(s): 636497755 Code(s): E88.09 - OT DISORDERS OF PLASMA-PROTEIN METABOLISM, NEC Status: Acute Current Visit: Yes (5) Elevated troponin SNOMED Code(s): 477311860, 150652386, 833834936 Code(s): R79.89 - OTHER SPECIFIED ABNORMAL FINDINGS OF BLOOD CHEMISTRY Status: Acute Current Visit: Yes (6) Chronic respiratory acidosis SNOMED Code(s): 7701826 Code(s): E87.2 - ACIDOSIS Status: Acute Current Visit: Yes (7) End stage COPD SNOMED Code(s): 299455400 Code(s): J44.9 - CHRONIC OBSTRUCTIVE PULMONARY DISEASE, UNSPECIFIED Status : Acute Current Visit: Yes (8) Respiratory failure with hypoxia and hypercapnia SNOMED Code(s): 50442446 Code(s): J96.91 - RESPIRATORY FAILURE, UNSPECIFIED WITH HYPOXIA; J96.92 - RESPIRATORY FAILURE, UNSPECIFIED WITH HYPERCAPNIA Status: Acute Current Visit: Yes Qualifiers: Chronicity: acute on chronic Qualified Code(s): J96.21 - Acute and chronic respiratory failure with hypoxia; J96.22 - Acute and chronic respiratory failure with hypercapnia (9) COPD exacerbation SNOMED Code(s): 566802527, 236980885 Code(s): J44.1 - CHRONIC OBSTRUCTIVE PULMONARY DISEASE W (ACUTE) EXACERBATION Status: Acute Priority: High Current Visit: No (10) Hypomagnesemia SNOMED Code(s): 065101283 Code(s): E83.42 - HYPOMAGNESEMIA Status: Acute Current Visit: No (11) Tachycardia SNOMED Code(s): 5761293 Code(s): R00.0 - TACHYCARDIA, UNSPECIFIED Status: Acute Current Visit: Yes (12) Severe malnutrition SNOMED Code(s): 74665944 Code(s): E43 - UNSPECIFIED SEVERE PROTEIN-CALORIE MALNUTRITION Status: Acute Current Visit: Yes (13) 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 SNOMED Code(s): 784763400 Code(s): R00.0 - TACHYCARDIA, UNSPECIFIED Status: Acute Current Visit: Yes (14) RSV infection SNOMED Code(s): 36978544 Code(s): B97.4 - RESPIRATORY SYNCYTIAL VIRUS CAUSING DISEASES CLASSD ELSWHR Status: Acute Current Visit: Yes (15) Acute delirium SNOMED Code(s): 8218767, 7241313 Code(s): R41.0 - DISORIENTATION, UNSPECIFIED Status: Acute Current Visit : Yes (16) HTN (hypertension) SNOMED Code(s): 24726784 Code(s): I10 - ESSENTIAL (PRIMARY) HYPERTENSION Status: Chronic Priority : Low Current Visit: No Qualifiers: Hypertension type: unspecified Qualified Code(s): I10 - Essential (primary ) hypertension (17) Mycoplasma pneumonia SNOMED Code(s): 94400431 Code(s): J15.7 - PNEUMONIA DUE TO MYCOPLASMA PNEUMONIAE Status: Acute Priority: High Current Visit: No Qualifiers: Laterality: unspecified laterality Lung location: unspecified part of lung Qualified Code(s): J15.7 - Pneumonia due to Mycoplasma pneumoniae (18) Hypophosphatemia SNOMED Code(s): 0745914 Code(s): E83.39 - OTHER DISORDERS OF PHOSPHORUS METABOLISM Status: Acute Current Visit: Yes (19) Pulmonary cachexia due to COPD SNOMED Code(s): 618325954 Code(s): J44.9 - CHRONIC OBSTRUCTIVE PULMONARY DISEASE, UNSPECIFIED; R64 - CACHEXIA Status: Acute Current Visit: Yes (20) Hypokalemia SNOMED Code(s): 42009865 Code(s): E87.6 - HYPOKALEMIA Status: Acute Current Visit: No (21) Oral candidiasis SNOMED Code(s): 62205969 Code(s): B37.0 - CANDIDAL STOMATITIS Status: Acute Current Visit: No (22) Severe anxiety SNOMED Code(s): 50214272 Code(s): F41.9 - ANXIETY DISORDER, UNSPECIFIED Status: Chronic Priority: Medium Current Visit: No - Problem List Review Problem List Initiated/Reviewed/Updated: Yes - Plan Plan:: ASSESSMENT BY DAY Day 1 - Patient came in to ED for worsening shortness of breath--> placed on BiPAP--> admitted to ICU on BIPAP - Mental status declined and PCO2>100 + pH 7.1--> Intubated - Sedated with Versed and propofol - Tachycardic, requires IV metoprolol - Started on Rocephin, azithromycin and Tamiflu Day 2 - Intubated - Significant improvement in WBC - Sedation vacation --> patient got agitated - Failed SBT Day3 - Procalcitonin elevated - Respiratory panel + for RSV and mycoplasma - Discontinued Tamiflu and Rocephin - Kept O2 sat > 95% with FiO2 of 45% - Urine output decreased significantly to 540/24 hrs--> responded to fluid bolus Day 4 - Extubated - Transitioned to BiPAP - Attempted hi-flow but patient is a mouth breather and SatO2 < low 80's - Minimal improvement in UO--> Lasix - Significant hallucinations overnight with delirium, no physical agitation Day 5 - UO increased with single dose of Lasix - Completing azithromycin day 5 - Very limited movement due to drop in O2 saturation with minimal movement including leaning forward and just moving head or hands - Unable to perform ADLs due to shortness of breath Day 6 - Advance diet to regular - Dietary giving high protein custard and 4oz of ensure TID - PT recommending home health with increased services - Tolerated CPAP overnight well PLAN BY SYSTEMS Neurologic: Monitor mental status Avoid interactions during the night Respiratory: NC throughout the day Atrovent q8h Budesonide q12 IV Solumedrol ABGs daily and as needed Overnight pulse oximetry tomorrow night Cardiovascular: Metoprolol PO, scheduled Trend BP and start medication if required PRN hydralazine for BP > 180/100 Renal and Electrolytes: Replace PO4 and K Continue Pinto catheter Pinto catheter care by nursing Monitor urine output, goal >30ml/hh GI and hepatology: Clear liquid diet Advance diet as tolerated Start nutritional supplements Endocrine and Metabolism: Monitor glucose on daily labs Infectious Disease Discontinue Azithromycin Monitor temp and panculture if greater than 99.2 Procalcitonin every 48h Hematology, Oncology and Immune system: No signs of active bleeding Goal Hb >7 PROPHYLAXIS DVT- Lovenox GI- not indicated CODE STATUS: FULL CODE DISPOSITION: Patient will remain in the ICU transitioned to [facility], O2 sats still very labile. Length of stay greater than 96 hours due to suboptimal response to treatment
[2019-12-20] MEDS ORDERED: LORazepam 2 MG/ML SDV IVPUSH ONE (10:37)
--- NOTE | 2019-12-20 12:03 | PCM.SN ---
- Free Text/Narrative Note: Anesthesia Note: Anesthesia reviewed patient's chart, allergies, and current cardiopulmonary condition in regards to requested/potential EGD. Anesthesia discussed with patient the potential risk and benefits associated with sedation due to current end stage COPD. (Oxygen saturation on 4LPM nasal cannula is currently 83%.) Patient currently c/o sore throat, with white thrush tongue noted. After collaboration with Dr. Camacho, Dr. Stearns, and patient, we as a team have decided to treat patient for esophageal thrush. In the event symptoms do not resolve, patient can be scoped at a later time when pulmonary status may be more stable. Super light sedation with oropharyngeal localization is recommended. Patient expresses understanding and agrees with treatment plan. Thank-You! Nancy Patel CRNA
[2019-12-20] MEDS: Nystatin Susp 100,000 Unit/ML 5 ML Oral Syringe PO SCH ×4 (12:21→20:31)
[2019-12-20] MEDS: Enoxaparin 40 MG/0.4 ML Syringe SUBCUT SCH (12:23)
[2019-12-20] MEDS: Magnesium Oxide 400 MG Tab PO SCH (12:24)
[2019-12-20] MEDS: Acetaminophen/HYDROcodone 325-5 MG Tab PO PRN ×2 (12:24→18:34)
[2019-12-20] MEDS: ALPRAZolam 1 MG Tab PO PRN ×2 (12:24→20:33)
[2019-12-20] MEDS: Metoprolol Tartrate 50 MG Tab PO SCH ×2 (12:24→20:31)
[2019-12-20] MEDS: Docusate Sodium 100 MG Cap PO PRN (12:24)
[2019-12-20] MEDS: guaiFENesin 600 MG Tab.ER PO SCH ×3 (12:24→20:31)
[2019-12-20] MEDS: Hydrochlorothiazide/Triamterene 25-37.5 MG Cap PO SCH (12:24)
--- NOTE | 2019-12-20 14:44 | PCM.PN ---
- General Info Date of Service: 12/20/19 Subjective Update: OVERNIGHT EVENTS AND INTERVAL CHANGES - Used BiPAP overnight - Slept OK - No complaints Vital signs: BP 133-142/79-90 HR 79-114 Tmax 99 Sat > 90 (40% and 4L) Labs: WBC 30.5--> 14.9--> 4.93-->7.9-->8.03 Hb 13.3--> 11.8--> 9.5-->10.8-->11.5 PO4: 2.6-->2.2--> 2.2 K 3.4-->3.0 PaO2: 85-->56 PCO2: 56.9-->50.3 Cultures: Blood x2 negative day 5 Sputum negative day 5 + Mycoplasma and RSV Diet: Regular - Patient Data Vitals - Most Recent: Last Vital Signs Temp 98.7 F 12/20/19 12:00 Pulse 107 H 12/20/19 12:24 Resp 24 H 12/20/19 12:45 BP 164/92 H 12/20/19 12:24 Pulse Ox 94 L 12/20/19 14:19 Weight - Most Recent: 54.54 kg I&O - Last 24 Hours: Intake & Output 12/19/19 12/20/19 12/20/19 22:59 06:59 14:59 Intake Total 1677 500 Output Total 1150 800 325 Balance 527 -300 -325 Lab Results Last 24 Hours: Laboratory Results - last 24 hr 12/20/19 Range/Units 09:38 Sodium 140 (136-145) mEq/L Potassium 4.6 D (3.5-5.1) mEq/L Chloride 101 (98-107) mEq/L Carbon Dioxide 37 H (21-32) mEq/L Anion Gap 6.6 (5-15) BUN 23 H (7-18) mg/dL Creatinine 0.7 (0.55-1.02) mg/dL Est Cr Clr Drug Dosing 78.18 mL/min Estimated GFR (MDRD) > 60 (>60) mL/min BUN/Creatinine Ratio 32.9 H (14-18) Glucose 115 H (74-106) mg/dL Calcium 8.8 (8.5-10.1) mg/dL Phosphorus 2.9 (2.6-4.7) mg/dL Magnesium 1.8 (1.8-2.4) mg/dl John Results Last 24 Hours: Microbiology 12/18/19 17:10 Urine Culture - Preliminary Urine, Pinto Cath (Indwelling) Yeast Isolated 12/14/19 21:10 Aerobic Blood Culture - Preliminary Blood - Venous NO GROWTH AFTER 5 DAYS Anaerobic Blood Culture - Preliminary NO GROWTH AFTER 5 DAYS 12/14/19 21:00 Aerobic Blood Culture - Preliminary Blood - Venous - Lab Draw NO GROWTH AFTER 5 DAYS Anaerobic Blood Culture - Preliminary NO GROWTH AFTER 5 DAYS 12/18/19 17:29 Aerobic Blood Culture - Preliminary Blood - Venous NO GROWTH AFTER 1 DAY Anaerobic Blood Culture - Preliminary NO GROWTH AFTER 1 DAY 12/18/19 17:19 Aerobic Blood Culture - Preliminary Blood NO GROWTH AFTER 1 DAY Anaerobic Blood Culture - Preliminary NO GROWTH AFTER 1 DAY Med Orders - Current: Current Medications Hydrocodone Bitart/Acetaminophen ([place] 325-5 Mg) 1 tab PO Q6H PRN PRN Reason: Pain Last Admin: 12/20/19 12:24 Dose: 1 tab Alprazolam (Xanax) 1 mg PO BID PRN PRN Reason: Anxiety Last Admin: 12/20/19 12:24 Dose: 1 mg Budesonide (Pulmicort) 0.5 mg NEB BIDRT [facility] Last Admin: 12/20/19 05:20 Dose: 0.5 mg Docusate Sodium (Colace) 100 mg PO BID PRN PRN Reason: Constipation Last Admin: 12/20/19 12:24 Dose: 100 mg Enoxaparin Sodium (Lovenox) 40 mg SUBCUT DAILY [facility] Last Admin: 12/20/19 12:23 Dose: 40 mg Guaifenesin (Mucinex) 600 mg PO TID [facility] Last Admin: 12/20/19 12:24 Dose: 600 mg Hydralazine HCl (Apresoline) 10 mg IVPUSH Q2H PRN PRN Reason: Hypertension Last Admin: 12/18/19 16:16 Dose: 10 mg Ipratropium Quincy (Atrovent) 0.5 mg NEB Q8HRRT [facility] Last Admin: 12/20/19 13:17 Dose: 0.5 mg Ketorolac Tromethamine (Toradol) 15 mg IVPUSH Q6H PRN PRN Reason: Pain (moderate 4-6) Last Admin: 12/20/19 05:17 Dose: 15 mg Magnesium Oxide (Magnesium Oxide) 400 mg PO DAILY [facility] Last Admin: 12/20/19 12:24 Dose: 400 mg Methylprednisolone Sodium Succinate (Solu-Medrol) 125 mg IVPUSH Q12H [facility] Last Admin: 12/20/19 09:08 Dose: 125 mg Metoprolol Tartrate (Lopressor) 50 mg PO BID [facility] Last Admin: 12/20/19 12:24 Dose: 50 mg Mirtazapine (Remeron) 30 mg PO BEDTIME [facility] Last Admin: 12/19/19 20:20 Dose: 30 mg Nystatin (Nystatin Oral Syringe) 5 unit PO QID [facility] Last Admin: 12/20/19 12:22 Dose: 5 unit Ondansetron HCl (Zofran Odt) 4 mg PO Q6H PRN PRN Reason: nausea, able to take PO Ondansetron HCl (Zofran) 4 mg IV Q6H PRN PRN Reason: Nausea/Vomiting Triamterene/HCTZ (Dyazide 25-37.5 Mg) 1 each PO DAILY [facility] Last Admin: 12/20/19 12:24 Dose: 1 each Discontinued Medications Acetaminophen/Codeine Phosphate (Tylenol With Codeine No.3 300mg/30mg) 1 tab PO Q6H PRN PRN Reason: Pain (severe 7-10) Last Admin: 12/18/19 14:13 Dose: 1 tab Azithromycin (Zithromax) 500 mg PO BEDTIME [facility] Stop: 12/18/19 21:01 Last Admin: 12/18/19 21:05 Dose: 500 mg Etomidate (Amidate) 40 mg IVPUSH .STK-MED ONE Stop: 12/14/19 23:41 Haloperidol Lactate (Haldol) 5 mg IVPUSH ONETIME ONE Stop: 12/17/19 09:01 Last Admin: 12/17/19 09:11 Dose: 5 mg Heparin Sodium (Porcine) (Heparin Lock Flush 100 Units/Ml) Confirm Administered Dose 500 units .ROUTE .STK-MED ONE Stop: 12/17/19 18:27 Last Admin: 12/17/19 20:01 Dose: Not Given Hydromorphone HCl (Dilaudid) 0.25 mg IVPUSH ONETIME ONE Stop: 12/14/19 21:24 Last Admin: 12/14/19 21:43 Dose: 0.25 mg Sodium Chloride (Normal Saline) 1,000 mls @ 150 mls/hr IV ASDIRECTED SHAUN Last Infusion: 12/16/19 09:23 Dose: 250 mls/hr Azithromycin 500 mg/ Sodium (Chloride) 250 mls @ 250 mls/hr IV Q24H SHAUN Stop: 12/18/19 23:30 Last Admin: 12/17/19 21:16 Dose: 250 mls/hr Ceftriaxone Sodium 2 gm/ (Sodium Chloride) 100 mls @ 200 mls/hr IV Q24H SHAUN Last Admin: 12/14/19 23:32 Dose: 200 mls/hr Propofol (Diprivan 100 Ml) Confirm Administered Dose 100 mls @ as directed .ROUTE .[facility] ONE Stop: 12/15/19 00:02 Last Admin: 12/15/19 00:23 Dose: Not Given Propofol (Diprivan 100 Ml) 100 mls @ 1.463 mls/hr IV TITRATE SHAUN; Protocol Last Admin: 12/16/19 02:10 Dose: 32 mcg/kg/min, 9.362 mls/hr Norepinephrine Bitartrate 4 mg (/ Dextrose/Water) 250 mls @ 7.5 mls/hr IV TITRATE SHAUN; Protocol Ceftriaxone Sodium 2 gm/ (Sodium Chloride) 100 mls @ 200 mls/hr IV Q24H SHAUN Last Admin: 12/15/19 22:38 Dose: 200 mls/hr Magnesium Sulfate 2 gm/ Premix 50 mls @ 25 mls/hr IV ONETIME ONE Stop: 12/15/19 09:59 Last Admin: 12/15/19 08:03 Dose: 25 mls/hr Magnesium Sulfate (Magnesium Sulfate In Water Premix) Confirm Administered Dose 50 mls @ as directed .ROUTE .[facility] ONE Stop: 12/15/19 07:56 Last Admin: 12/15/19 08:02 Dose: Not Given Midazolam HCl 100 mg/ Sodium (Chloride) 100 mls @ 0.5 mls/hr IV ASDIRECTED SHAUN Last Infusion: 12/15/19 17:38 Dose: 5 mls/hr Midazolam HCl 50 mg/ Sodium (Chloride) 50 mls @ 2.44 mls/hr IV TITRATE SHAUN; Protocol Lactated Ringer's (Ringers, Lactated) 1,000 mls @ 250 mls/hr IV ASDIRECTED [facility] Last Infusion: 12/16/19 20:44 Dose: 150 mls/hr Lactated Ringer's (Ringers, Lactated) 1,000 mls @ 150 mls/hr IV ASDIRECTED [facility] Last Admin: 12/17/19 08:35 Dose: 150 mls/hr Sodium Chloride (Normal Saline) Confirm Administered Dose 1,000 mls @ as directed .ROUTE .STK-MED ONE Stop: 12/17/19 17:24 Last Admin: 12/17/19 20:01 Dose: Not Given Magnesium Sulfate 4 gm/ Premix 100 mls @ 25 mls/hr IV ONETIME ONE Stop: 12/17/19 23:59 Last Admin: 12/17/19 20:20 Dose: 25 mls/hr Potassium Phosphate 30 mmole/ (Sodium Chloride) 510 mls @ 102 mls/hr IV Q5H [facility] Stop: 12/19/19 21:59 Last Admin: 12/19/19 17:14 Dose: Not Given Ketorolac Tromethamine (Toradol) 15 mg IM Q6H PRN PRN Reason: Pain (moderate 4-6) Ketorolac Tromethamine (Toradol) 15 mg IM Q6H PRN PRN Reason: Pain (moderate 4-6) Lorazepam (Ativan) 1 mg IVPUSH ONETIME ONE Stop: 12/20/19 10:38 Last Admin: 12/20/19 11:00 Dose: 1 mg Metoprolol Tartrate (Lopressor) 2.5 mg IVPUSH ONETIME ONE Stop: 12/15/19 06:06 Last Admin: 12/15/19 06:13 Dose: 2.5 mg Metoprolol Tartrate (Lopressor) 2.5 mg IVPUSH Q12HR [facility] Last Admin: 12/18/19 07:59 Dose: 2.5 mg Metoprolol Tartrate (Lopressor) 10 mg IVPUSH ONETIME ONE Stop: 12/18/19 17:21 Last Admin: 12/18/19 17:00 Dose: 10 mg Morphine Sulfate (Morphine) 1 mg IVPUSH Q4H PRN PRN Reason: Pain (severe 7-10) Stop: 12/15/19 22:06 Morphine Sulfate (Morphine) 1 mg IVPUSH ONETIME ONE Stop: 12/20/19 09:24 Last Admin: 12/20/19 09:35 Dose: 1 mg Morphine Sulfate (Morphine) 1 mg IVPUSH ONETIME ONE Stop: 12/20/19 11:01 Last Admin: 12/20/19 11:30 Dose: 1 mg Ondansetron HCl (Zofran) 4 mg IVPUSH ONETIME ONE Stop: 12/14/19 21:23 Last Admin: 12/14/19 21:43 Dose: 4 mg Pantoprazole Sodium (Protonix Iv) 40 mg IVPUSH DAILY@0600 [facility] Last Admin: 12/18/19 06:13 Dose: 40 mg Potassium Chloride (Klor-Con M20) 40 meq PO BID SHAUN Stop: 12/19/19 21:01 Last Admin: 12/19/19 20:19 Dose: 40 meq Quetiapine Fumarate (Seroquel) 100 mg PO ONETIME ONE Stop: 12/17/19 21:01 Last Admin: 12/17/19 20:21 Dose: 100 mg Succinylcholine Chloride (Quelicin) 200 mg .ROUTE .STK-MED ONE Stop: 12/14/19 23:41 Sepsis Event Note - Evaluation Sepsis Screening Result: No Definite Risk - Focused Exam Vital Signs: Vital Signs Temp Pulse Resp BP BP BP Pulse Ox 12/20/19 14:19 12/20/19 13:17 12/20/19 12:45 24 H 89 L 12/20/19 12:30 15 87 L 12/20/19 12:24 107 H 164/92 H 12/20/19 12:15 21 H 91 L 12/20/19 12:00 98.7 F 22 H 164/92 H 91 L 12/20/19 11:34 15 83 L 12/20/19 11:30 18 86 L 12/20/19 11:15 18 81 L 12/20/19 11:10 12/20/19 11:00 22 H 84 L 12/20/19 10:45 21 H 87 L 12/20/19 10:30 20 87 L 12/20/19 10:15 18 84 L 12/20/19 10:00 25 H 83 L 12/20/19 09:45 15 82 L 12/20/19 09:30 16 84 L 12/20/19 09:15 17 85 L 12/20/19 09:00 80 L 12/20/19 08:45 84 L 12/20/19 08:30 90 L 12/20/19 08:15 88 L 12/20/19 08:00 98.7 F 24 H 139/90 88 L 12/20/19 07:45 90 L 12/20/19 07:30 91 L 12/20/19 07:15 91 L 12/20/19 05:23 12/20/19 04:05 12/20/19 04:00 98.9 F 18 114/82 91 L 12/20/19 03:16 Pulse Ox Pulse Ox 12/20/19 14:19 94 L 12/20/19 13:17 99 12/20/19 12:45 12/20/19 12:30 12/20/19 12:24 12/20/19 12:15 12/20/19 12:00 12/20/19 11:34 12/20/19 11:30 12/20/19 11:15 12/20/19 11:10 85 L 12/20/19 11:00 12/20/19 10:45 12/20/19 10:30 12/20/19 10:15 12/20/19 10:00 12/20/19 09:45 12/20/19 09:30 12/20/19 09:15 12/20/19 09:00 12/20/19 08:45 12/20/19 08:30 12/20/19 08:15 12/20/19 08:00 12/20/19 07:45 12/20/19 07:30 12/20/19 07:15 12/20/19 05:23 94 L 12/20/19 04:05 91 L 12/20/19 04:00 12/20/19 03:16 90 L Date Exam was Performed: 12/23/19 Time Exam was Performed: 20:21 - Problem List & Annotations (1) Leukocytosis SNOMED Code(s): 944017910, 280088727 Code(s): D72.829 - ELEVATED WHITE BLOOD CELL COUNT, UNSPECIFIED Status: Acute Current Visit: Yes (2) Thrombocytosis SNOMED Code(s): 7924206 Code(s): D47.3 - ESSENTIAL (HEMORRHAGIC) THROMBOCYTHEMIA Status: Acute Current Visit: Yes (3) Hypochloremia SNOMED Code(s): 43150797 Code(s): E87.8 - OT DISORDERS OF ELECTROLYTE AND FLUID BALANCE, NEC Status : Acute Current Visit: Yes (4) Hypoalbuminemia SNOMED Code(s): 322645126 Code(s): E88.09 - OT DISORDERS OF PLASMA-PROTEIN METABOLISM, NEC Status: Acute Current Visit: Yes (5) Elevated troponin SNOMED Code(s): 089711061, 471685591, 876921335 Code(s): R79.89 - OTHER SPECIFIED ABNORMAL FINDINGS OF BLOOD CHEMISTRY Status: Acute Current Visit: Yes (6) Chronic respiratory acidosis SNOMED Code(s): 0386701 Code(s): E87.2 - ACIDOSIS Status: Acute Current Visit: Yes (7) End stage COPD SNOMED Code(s): 855502822 Code(s): J44.9 - CHRONIC OBSTRUCTIVE PULMONARY DISEASE, UNSPECIFIED Status : Acute Current Visit: Yes (8) Respiratory failure with hypoxia and hypercapnia SNOMED Code(s): 63653104 Code(s): J96.91 - RESPIRATORY FAILURE, UNSPECIFIED WITH HYPOXIA; J96.92 - RESPIRATORY FAILURE, UNSPECIFIED WITH HYPERCAPNIA Status: Acute Current Visit: Yes Qualifiers: Chronicity: acute on chronic Qualified Code(s): J96.21 - Acute and chronic respiratory failure with hypoxia; J96.22 - Acute and chronic respiratory failure with hypercapnia (9) COPD exacerbation SNOMED Code(s): 964238819, 403239230 Code(s): J44.1 - CHRONIC OBSTRUCTIVE PULMONARY DISEASE W (ACUTE) EXACERBATION Status: Acute Priority: High Current Visit: No (10) Hypomagnesemia SNOMED Code(s): 645969059 Code(s): E83.42 - HYPOMAGNESEMIA Status: Acute Current Visit: No (11) Tachycardia SNOMED Code(s): 4787434 Code(s): R00.0 - TACHYCARDIA, UNSPECIFIED Status: Acute Current Visit: Yes (12) Severe malnutrition SNOMED Code(s): 06310978 Code(s): E43 - UNSPECIFIED SEVERE PROTEIN-CALORIE MALNUTRITION Status: Acute Current Visit: Yes (13) 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 SNOMED Code(s): 898026880 Code(s): R00.0 - TACHYCARDIA, UNSPECIFIED Status: Acute Current Visit: Yes (14) RSV infection SNOMED Code(s): 08086729 Code(s): B97.4 - RESPIRATORY SYNCYTIAL VIRUS CAUSING DISEASES CLASSD ELSWHR Status: Acute Current Visit: Yes (15) Acute delirium SNOMED Code(s): 5448298, 6765853 Code(s): R41.0 - DISORIENTATION, UNSPECIFIED Status: Acute Current Visit : Yes (16) HTN (hypertension) SNOMED Code(s): 93522184 Code(s): I10 - ESSENTIAL (PRIMARY) HYPERTENSION Status: Chronic Priority : Low Current Visit: No Qualifiers: Hypertension type: unspecified Qualified Code(s): I10 - Essential (primary ) hypertension (17) Mycoplasma pneumonia SNOMED Code(s): 16355185 Code(s): J15.7 - PNEUMONIA DUE TO MYCOPLASMA PNEUMONIAE Status: Acute Priority: High Current Visit: No Qualifiers: Laterality: unspecified laterality Lung location: unspecified part of lung Qualified Code(s): J15.7 - Pneumonia due to Mycoplasma pneumoniae (18) Hypophosphatemia SNOMED Code(s): 6048895 Code(s): E83.39 - OTHER DISORDERS OF PHOSPHORUS METABOLISM Status: Acute Current Visit: Yes (19) Pulmonary cachexia due to COPD SNOMED Code(s): 216176901 Code(s): J44.9 - CHRONIC OBSTRUCTIVE PULMONARY DISEASE, UNSPECIFIED; R64 - CACHEXIA Status: Acute Current Visit: Yes (20) Hypokalemia SNOMED Code(s): 52011390 Code(s): E87.6 - HYPOKALEMIA Status: Acute Current Visit: No (21) Hypomagnesemia SNOMED Code(s): 709951543 Code(s): E83.42 - HYPOMAGNESEMIA Status: Acute Priority: High Current Visit: No (22) Oral candidiasis SNOMED Code(s): 80388401 Code(s): B37.0 - CANDIDAL STOMATITIS Status: Acute Current Visit: No (23) Anxiety SNOMED Code(s): 85206447 Code(s): F41.9 - ANXIETY DISORDER, UNSPECIFIED Status: Chronic Priority: Medium Current Visit: No - Problem List Review Problem List Initiated/Reviewed/Updated: Yes - Plan Plan:: ASSESSMENT BY DAY Day 1 - Patient came in to ED for worsening shortness of breath--> placed on BiPAP--> admitted to ICU on BIPAP - Mental status declined and PCO2>100 + pH 7.1--> Intubated - Sedated with Versed and propofol - Tachycardic, requires IV metoprolol - Started on Rocephin, azithromycin and Tamiflu Day 2 - Intubated - Significant improvement in WBC - Sedation vacation --> patient got agitated - Failed SBT Day3 - Procalcitonin elevated - Respiratory panel + for RSV and mycoplasma - Discontinued Tamiflu and Rocephin - Kept O2 sat > 95% with FiO2 of 45% - Urine output decreased significantly to 540/24 hrs--> responded to fluid bolus Day 4 - Extubated - Transitioned to BiPAP - Attempted hi-flow but patient is a mouth breather and SatO2 < low 80's - Minimal improvement in UO--> Lasix - Significant hallucinations overnight with delirium, no physical agitation Day 5 - UO increased with single dose of Lasix - Completing azithromycin day 5 - Very limited movement due to drop in O2 saturation with minimal movement including leaning forward and just moving head or hands - Unable to perform ADLs due to shortness of breath Day 6 - Advance diet to regular - Dietary giving high protein custard and 4oz of ensure TID - PT recommending home health with increased services - Tolerated CPAP overnight well Day 7 - Procalcitonin trending down - No BM yet - Eating better - Passive range of motion with PT - Used BiPAP all night - Reduce Solumedrol dose - Oral candidiasis with concern for esophageal, will consult surgery to evaluate EGD feasibility PLAN BY SYSTEMS Neurologic: Monitor mental status Avoid interactions during the night Respiratory: NC throughout the day Atrovent q8h Budesonide q12 IV Solumedrol q12h ABGs daily and as needed Overnight pulse oximetry tomorrow night Cardiovascular: Metoprolol PO, scheduled Trend BP and start medication if required PRN hydralazine for BP > 180/100 Renal and Electrolytes: Replace PO4 and K Continue Pinto catheter Pinto catheter care by nursing Monitor urine output, goal >30ml/hh GI and hepatology: Clear liquid diet Advance diet as tolerated Start nutritional supplements Endocrine and Metabolism: Monitor glucose on daily labs Infectious Disease Start Nystatin swallow Monitor temp and panculture if greater than 99.2 Procalcitonin every 48h Consult surgery for EGD consideration Hematology, Oncology and Immune system: No signs of active bleeding Goal Hb >7 PROPHYLAXIS DVT- Lovenox GI- not indicated CODE STATUS: FULL CODE DISPOSITION: Patient will remain in the ICU under close monitorization, will attempt to space out nebulizations and decrease dose of IV steroids. Minimal clinical improvement, slept ok. Length of stay greater than 96 hours due to suboptimal response to treatment
[2019-12-20] MEDS: Sennosides 8.6 MG Tab PO SCH ×2 (17:35→20:32)
[2019-12-20] MEDS: Mirtazapine 30 MG Tab PO SCH (20:32)
[2019-12-21] MEDS: Acetaminophen/HYDROcodone 325-5 MG Tab PO PRN ×4 (00:20→19:44)
[2019-12-21] MEDS: Ketorolac 15 MG/ML SDV IVPUSH PRN (02:55)
[2019-12-21] MEDS: Budesonide 0.5 MG/2 ML Neb Susp NEB SCH ×2 (05:07→20:09)
[2019-12-21] MEDS: Ipratropium 0.02% 0.5 MG/2.5 ML Neb Soln NEB SCH ×3 (05:08→20:09)
[2019-12-21] MEDS: Hydrochlorothiazide/Triamterene 25-37.5 MG Cap PO SCH (08:31)
[2019-12-21] MEDS: guaiFENesin 600 MG Tab.ER PO SCH ×4 (08:31→21:22)
[2019-12-21] MEDS: Metoprolol Tartrate 50 MG Tab PO SCH ×3 (08:31→21:22)
[2019-12-21] MEDS: ALPRAZolam 1 MG Tab PO PRN ×2 (08:31→19:43)
[2019-12-21] MEDS: Sennosides 8.6 MG Tab PO SCH ×2 (08:31→21:20)
[2019-12-21] MEDS: Docusate Sodium 100 MG Cap PO PRN (08:31)
[2019-12-21] MEDS: Magnesium Oxide 400 MG Tab PO SCH (08:31)
[2019-12-21] MEDS: Enoxaparin 40 MG/0.4 ML Syringe SUBCUT SCH (08:31)
[2019-12-21] MEDS: Nystatin Susp 100,000 Unit/ML 5 ML Oral Syringe PO SCH ×5 (08:32→21:19)
[2019-12-21] MEDS: methylPREDNISolone Sodium Succinate 125 MG/2 ML SDV IVPUSH SCH (10:40)
[2019-12-21] MEDS: Sulfamethoxazole/Trimethoprim 800-160 MG Tab PO SCH ×3 (12:20→21:20)
[2019-12-21] MEDS: Mirtazapine 30 MG Tab PO SCH ×2 (19:45→21:19)
[2019-12-21] MEDS: methylPREDNISolone Sodium Succinate 40 MG/1 ML SDV IVPUSH SCH (21:33)
[2019-12-21] MEDS: Morphine 2 MG/ML SYRINGE IVPUSH PRN (21:49)
[2019-12-22] MEDS: Acetaminophen/HYDROcodone 325-5 MG Tab PO PRN ×4 (01:58→20:17)
[2019-12-22] MEDS: Budesonide 0.5 MG/2 ML Neb Susp NEB SCH ×2 (05:14→20:25)
[2019-12-22] MEDS: Ipratropium 0.02% 0.5 MG/2.5 ML Neb Soln NEB SCH ×3 (05:14→20:25)
[2019-12-22] MEDS: Morphine 2 MG/ML SYRINGE IVPUSH PRN ×2 (06:18→14:41)
[2019-12-22] MEDS: guaiFENesin 600 MG Tab.ER PO SCH ×3 (08:02→20:17)
[2019-12-22] MEDS: Hydrochlorothiazide/Triamterene 25-37.5 MG Cap PO SCH (08:02)
[2019-12-22] MEDS: Sulfamethoxazole/Trimethoprim 800-160 MG Tab PO SCH ×2 (08:02→20:18)
[2019-12-22] MEDS: ALPRAZolam 1 MG Tab PO PRN ×2 (08:04→20:57)
[2019-12-22] MEDS: Sennosides 8.6 MG Tab PO SCH ×2 (08:04→20:18)
[2019-12-22] MEDS: Metoprolol Tartrate 50 MG Tab PO SCH ×2 (08:05→20:18)
[2019-12-22] MEDS: Nystatin Susp 100,000 Unit/ML 5 ML Oral Syringe PO SCH ×4 (08:07→20:16)
[2019-12-22] MEDS: Enoxaparin 40 MG/0.4 ML Syringe SUBCUT SCH (08:07)
[2019-12-22] MEDS: methylPREDNISolone Sodium Succinate 40 MG/1 ML SDV IVPUSH SCH ×2 (09:42→20:19)
[2019-12-22] MEDS: Magnesium Oxide 400 MG Tab PO SCH (10:44)
[2019-12-22] MEDS ORDERED: Morphine 2 MG/ML SYRINGE IVPUSH PRN (16:15)
--- NOTE | 2019-12-22 18:24 | PCM.PN ---
- General Info Date of Service: 12/21/19 Subjective Update: OVERNIGHT EVENTS AND INTERVAL CHANGES - Overnight pulse oximetry passed - Tolerating diet - BM today Vital signs: BP 97-164/69-92 HR 67-95x' Tmax 99 Sat > 81% Cultures: Blood finalized negative Sputum pending + Mycoplasma and RSV Diet: Regular + Ensure TID I/Os UO: 2245 Bal 24h: -78 Balance since admission: +4,855 - Patient Data Vitals - Most Recent: Last Vital Signs Temp 98.6 F 12/22/19 16:00 Pulse 86 12/22/19 16:00 Resp 20 12/22/19 16:00 BP 116/75 12/22/19 16:00 Pulse Ox 93 L 12/22/19 16:00 Weight - Most Recent: 55.384 kg - Exam Physical Findings Comments:: General: Alert, Oriented, Cooperative, Moderate Distress HEENT: Pupils Equal, Pupils Reactive, EOMI, Mucous Membr. Moist/[place] (white plaques painful) Lungs: Decreased Breath Sounds (unable to auscultate on L lung field, improvement entry in R lung), Crackles, Wheezing. No: Rales, Rhonchi, Rub Cardiovascular: Regular Rate, Tachycardia. No: Murmurs, Gallops, Rubs GI/Abdominal Exam: Soft, Non-Tender, Abnormal Bowel Sounds. No: Distended, Guarding, Rigid, Rebound Back Exam: No: CVA Tenderness (L), CVA Tenderness (R), Paraspinal Tenderness, Vertebral Tenderness Extremities: Other (muscle wasting, cool distal extremities, dry skin) Skin: Dry, Cool Neurological: No New Focal Deficit Psy/Mental Status: Alert, Anxious Sepsis Event Note - Evaluation Sepsis Screening Result: No Definite Risk - Problem List & Annotations (1) Leukocytosis SNOMED Code(s): 343655968, 714930349 Code(s): D72.829 - ELEVATED WHITE BLOOD CELL COUNT, UNSPECIFIED Status: Acute Current Visit: Yes (2) Thrombocytosis SNOMED Code(s): 2829497 Code(s): D47.3 - ESSENTIAL (HEMORRHAGIC) THROMBOCYTHEMIA Status: Acute Current Visit: Yes (3) Hypochloremia SNOMED Code(s): 92714011 Code(s): E87.8 - OTH DISORDERS OF ELECTROLYTE AND FLUID BALANCE, NEC Status : Acute Current Visit: Yes (4) Hypoalbuminemia SNOMED Code(s): 504096381 Code(s): E88.09 - OTH DISORDERS OF PLASMA-PROTEIN METABOLISM, NEC Status: Acute Current Visit: Yes (5) Elevated troponin SNOMED Code(s): 178544835, 874294589, 736007832 Code(s): R79.89 - OTHER SPECIFIED ABNORMAL FINDINGS OF BLOOD CHEMISTRY Status: Acute Current Visit: Yes (6) Chronic respiratory acidosis SNOMED Code(s): 6902854 Code(s): E87.2 - ACIDOSIS Status: Acute Current Visit: Yes (7) End stage COPD SNOMED Code(s): 249169225 Code(s): J44.9 - CHRONIC OBSTRUCTIVE PULMONARY DISEASE, UNSPECIFIED Status : Acute Current Visit: Yes (8) Respiratory failure with hypoxia and hypercapnia SNOMED Code(s): 77369122 Code(s): J96.91 - RESPIRATORY FAILURE, UNSPECIFIED WITH HYPOXIA; J96.92 - RESPIRATORY FAILURE, UNSPECIFIED WITH HYPERCAPNIA Status: Acute Current Visit: Yes Qualifiers: Chronicity: acute on chronic Qualified Code(s): J96.21 - Acute and chronic respiratory failure with hypoxia; J96.22 - Acute and chronic respiratory failure with hypercapnia (9) COPD exacerbation SNOMED Code(s): 991372693, 331967019 Code(s): J44.1 - CHRONIC OBSTRUCTIVE PULMONARY DISEASE W (ACUTE) EXACERBATION Status: Acute Priority: High Current Visit: No (10) Hypomagnesemia SNOMED Code(s): 222221497 Code(s): E83.42 - HYPOMAGNESEMIA Status: Acute Current Visit: No (11) Tachycardia SNOMED Code(s): 9612849 Code(s): R00.0 - TACHYCARDIA, UNSPECIFIED Status: Acute Current Visit: Yes (12) Severe malnutrition SNOMED Code(s): 37143634 Code(s): E43 - UNSPECIFIED SEVERE PROTEIN-CALORIE MALNUTRITION Status: Acute Current Visit: Yes (13) Sinus tachycardia seen on monitoring and evaluation advisor SNOMED Code(s): 096227284 Code(s): R00.0 - TACHYCARDIA, UNSPECIFIED Status: Acute Current Visit: Yes (14) RSV infection SNOMED Code(s): 33527800 Code(s): B97.4 - RESPIRATORY SYNCYTIAL VIRUS CAUSING DISEASES CLASSD ELSWHR Status: Acute Current Visit: Yes (15) Acute delirium SNOMED Code(s): 2745139, 5191712 Code(s): R41.0 - DISORIENTATION, UNSPECIFIED Status: Acute Current Visit : Yes (16) HTN (hypertension) SNOMED Code(s): 01474027 Code(s): I10 - ESSENTIAL (PRIMARY) HYPERTENSION Status: Chronic Priority : Low Current Visit: No Qualifiers: Hypertension type: unspecified Qualified Code(s): I10 - Essential (primary ) hypertension (17) Mycoplasma pneumonia SNOMED Code(s): 46063519 Code(s): J15.7 - PNEUMONIA DUE TO MYCOPLASMA PNEUMONIAE Status: Acute Priority: High Current Visit: No Qualifiers: Laterality: unspecified laterality Lung location: unspecified part of lung Qualified Code(s): J15.7 - Pneumonia due to Mycoplasma pneumoniae (18) Hypophosphatemia SNOMED Code(s): 9362875 Code(s): E83.39 - OTHER DISORDERS OF PHOSPHORUS METABOLISM Status: Acute Current Visit: Yes (19) Pneumonia SNOMED Code(s): 497881152 Code(s): J18.9 - PNEUMONIA, UNSPECIFIED ORGANISM Status: Acute Current Visit: Yes Qualifiers: Pneumonia type: due to unspecified organism Laterality: right Lung location: lower lobe of lung Qualified Code(s): J18.9 - Pneumonia, unspecified organism (20) Pulmonary cachexia due to COPD SNOMED Code(s): 315138316 Code(s): J44.9 - CHRONIC OBSTRUCTIVE PULMONARY DISEASE, UNSPECIFIED; R64 - CACHEXIA Status: Acute Current Visit: Yes (21) Hypokalemia SNOMED Code(s): 50036110 Code(s): E87.6 - HYPOKALEMIA Status: Acute Current Visit: No (22) Hypomagnesemia SNOMED Code(s): 686295602 Code(s): E83.42 - HYPOMAGNESEMIA Status: Acute Priority: High Current Visit: No (23) Oral candidiasis SNOMED Code(s): 92389908 Code(s): B37.0 - CANDIDAL STOMATITIS Status: Acute Current Visit: No (24) Anxiety SNOMED Code(s): 07043122 Code(s): F41.9 - ANXIETY DISORDER, UNSPECIFIED Status: Chronic Priority: Medium Current Visit: No - Problem List Review Problem List Initiated/Reviewed/Updated: Yes - Plan Plan:: ASSESSMENT BY DAY Day 1 - Patient came in to ED for worsening shortness of breath--> placed on BiPAP--> admitted to ICU on BIPAP - Mental status declined and PCO2>100 + pH 7.1--> Intubated - Sedated with Versed and propofol - Tachycardic, requires IV metoprolol - Started on Rocephin, azithromycin and Tamiflu Day 2 - Intubated - Significant improvement in WBC - Sedation vacation --> patient got agitated - Failed SBT Day3 - Procalcitonin elevated - Respiratory panel + for RSV and mycoplasma - Discontinued Tamiflu and Rocephin - Kept O2 sat > 95% with FiO2 of 45% - Urine output decreased significantly to 540/24 hrs--> responded to fluid bolus Day 4 - Extubated - Transitioned to BiPAP - Attempted hi-flow but patient is a mouth breather and SatO2 < low 80's - Minimal improvement in UO--> Lasix - Significant hallucinations overnight with delirium, no physical agitation Day 5 - UO increased with single dose of Lasix - Completing azithromycin day 5 - Very limited movement due to drop in O2 saturation with minimal movement including leaning forward and just moving head or hands - Unable to perform ADLs due to shortness of breath Day 6 - Advance diet to regular - Dietary giving high protein custard and 4oz of ensure TID - PT recommending home health with increased services - Tolerated CPAP overnight well Day 7 - Procalcitonin trending down - No BM yet - Eating better - Passive range of motion with PT - Used BiPAP all night - Reduce Solumedrol dose - Oral candidiasis with concern for esophageal, will consult surgery to evaluate EGD feasibility - Lactulose q6h until BM Day 8 - Slept OK - BM today - Decreased Solumedrol dose - PT recommending front wheel walker, transfer tub, wheelchair - Start Nystatin - Anesthesia recommended to defer EGD for after patient has been discharged from this hospitalization - OK to downgrade to medical floor PLAN BY SYSTEMS Neurologic: Monitor mental status Avoid interactions during the night Respiratory: NC throughout the day Atrovent q8h Budesonide q12 IV Solumedrol q12h Cardiovascular: Metoprolol PO, scheduled Trend BP and start medication if required PRN hydralazine for BP > 180/100 Renal and Electrolytes: Continue Pinto catheter Pinto catheter care by nursing Monitor urine output, goal >30ml/hh GI and hepatology: Regular diet 4oz Ensure TID Scheduled Senna Endocrine and Metabolism: Monitor glucose on daily labs Infectious Disease Start Nystatin swallow Monitor temp and panculture if greater than 99.2 Procalcitonin every 48h Consult surgery for EGD consideration Hematology, Oncology and Immune system: No signs of active bleeding Goal Hb >7 PROPHYLAXIS DVT- Lovenox GI- not indicated CODE STATUS: FULL CODE DISPOSITION: Patient will remain hospitalized, but OK to transfer to medical floor for continued PT/OT and RT. Length of stay greater than 96 hours due to suboptimal response to treatment
--- NOTE | 2019-12-22 18:30 | PCM.PN ---
- General Info Date of Service: 12/22/19 Subjective Update: BM yesterday Drank supplements 1/2 the time PT/OT doing PROM recommending FWW, transfer bench, outpatient PT.OT On 4L NC BP trend 119-144/68-88 HR trend 74-96 Tmax 99 Sat >88% on 4L NC - Patient Data Vitals - Most Recent: Last Vital Signs Temp 98.6 F 12/22/19 16:00 Pulse 86 12/22/19 16:00 Resp 20 12/22/19 16:00 BP 116/75 12/22/19 16:00 Pulse Ox 93 L 12/22/19 16:00 Weight - Most Recent: 55.384 kg - Exam Quality Assessment: Supplemental Oxygen, Urine Catheter, DVT Prophylaxis General: Alert, Oriented, Cooperative, Mild Distress HEENT: Pupils Equal, Pupils Reactive, EOMI, Mucous Membr. Moist/[place] Neck: Supple, Trachea Midline, No JVD, No Thyromegaly, +2 Carotid Pulse wo Bruit. No: Lymphadenopathy Lungs: Decreased Breath Sounds, Crackles, Wheezing, Other (Left lung field is unable to be heard upon auscultation; Right lung field with severely diminished lung sounds, crackles and wheezing). No: Rales, Rhonchi, Rub, Stridor Cardiovascular: Regular Rate, Regular Rhythm. No: Murmurs, Gallops, Rubs GI/Abdominal Exam: Normal Bowel Sounds, Soft, Non-Tender. No: Distended, Guarding, Rigid, Rebound Back Exam: Normal Inspection (significant muscle wasting). No: CVA Tenderness ( L), CVA Tenderness (R), Paraspinal Tenderness, Vertebral Tenderness Extremities: Normal Inspection, Normal Range of Motion, Non-Tender, No Pedal Edema, Slow Capillary Refill Skin: Dry, Cool Neurological: No New Focal Deficit Sepsis Event Note - Evaluation Sepsis Screening Result: No Definite Risk - Focused Exam Vital Signs: Vital Signs Temp Pulse Pulse Resp BP BP Pulse Ox 12/22/19 16:00 98.6 F 86 20 116/75 93 L 12/22/19 14:45 12/22/19 10:00 98.3 F 20 145/93 H 92 L 12/22/19 08:05 85 145/93 H Pulse Ox 12/22/19 16:00 12/22/19 14:45 90 L 12/22/19 10:00 12/22/19 08:05 Date Exam was Performed: 12/23/19 Time Exam was Performed: 21:17 - Problem List & Annotations (1) Leukocytosis SNOMED Code(s): 399950439, 642179943 Code(s): D72.829 - ELEVATED WHITE BLOOD CELL COUNT, UNSPECIFIED Status: Acute Current Visit: Yes (2) Thrombocytosis SNOMED Code(s): 0821318 Code(s): D47.3 - ESSENTIAL (HEMORRHAGIC) THROMBOCYTHEMIA Status: Acute Current Visit: Yes (3) Hypochloremia SNOMED Code(s): 95971332 Code(s): E87.8 - OT DISORDERS OF ELECTROLYTE AND FLUID BALANCE, NEC Status : Acute Current Visit: Yes (4) Hypoalbuminemia SNOMED Code(s): 993775326 Code(s): E88.09 - OT DISORDERS OF PLASMA-PROTEIN METABOLISM, NEC Status: Acute Current Visit: Yes (5) Elevated troponin SNOMED Code(s): 562269972, 760590529, 426439905 Code(s): R79.89 - OTHER SPECIFIED ABNORMAL FINDINGS OF BLOOD CHEMISTRY Status: Acute Current Visit: Yes (6) Chronic respiratory acidosis SNOMED Code(s): 7917263 Code(s): E87.2 - ACIDOSIS Status: Acute Current Visit: Yes (7) End stage COPD SNOMED Code(s): 457262370 Code(s): J44.9 - CHRONIC OBSTRUCTIVE PULMONARY DISEASE, UNSPECIFIED Status : Acute Current Visit: Yes (8) Respiratory failure with hypoxia and hypercapnia SNOMED Code(s): 57618525 Code(s): J96.91 - RESPIRATORY FAILURE, UNSPECIFIED WITH HYPOXIA; J96.92 - RESPIRATORY FAILURE, UNSPECIFIED WITH HYPERCAPNIA Status: Acute Current Visit: Yes Qualifiers: Chronicity: acute on chronic Qualified Code(s): J96.21 - Acute and chronic respiratory failure with hypoxia; J96.22 - Acute and chronic respiratory failure with hypercapnia (9) COPD exacerbation SNOMED Code(s): 150039097, 558369349 Code(s): J44.1 - CHRONIC OBSTRUCTIVE PULMONARY DISEASE W (ACUTE) EXACERBATION Status: Acute Priority: High Current Visit: No (10) Hypomagnesemia SNOMED Code(s): 093054837 Code(s): E83.42 - HYPOMAGNESEMIA Status: Acute Current Visit: No (11) Tachycardia SNOMED Code(s): 6130812 Code(s): R00.0 - TACHYCARDIA, UNSPECIFIED Status: Acute Current Visit: Yes (12) Severe malnutrition SNOMED Code(s): 51345199 Code(s): E43 - UNSPECIFIED SEVERE PROTEIN-CALORIE MALNUTRITION Status: Acute Current Visit: Yes (13) Sinus tachycardia seen on supervisor meter repair shop SNOMED Code(s): 006952414 Code(s): R00.0 - TACHYCARDIA, UNSPECIFIED Status: Acute Current Visit: Yes (14) RSV infection SNOMED Code(s): 23519509 Code(s): B97.4 - RESPIRATORY SYNCYTIAL VIRUS CAUSING DISEASES CLASSD ELSWHR Status: Acute Current Visit: Yes (15) Acute delirium SNOMED Code(s): 8115839, 6712859 Code(s): R41.0 - DISORIENTATION, UNSPECIFIED Status: Acute Current Visit : Yes (16) HTN (hypertension) SNOMED Code(s): 84999567 Code(s): I10 - ESSENTIAL (PRIMARY) HYPERTENSION Status: Chronic Priority : Low Current Visit: No Qualifiers: Hypertension type: unspecified Qualified Code(s): I10 - Essential (primary ) hypertension (17) Mycoplasma pneumonia SNOMED Code(s): 37627014 Code(s): J15.7 - PNEUMONIA DUE TO MYCOPLASMA PNEUMONIAE Status: Acute Priority: High Current Visit: No Qualifiers: Laterality: unspecified laterality Lung location: unspecified part of lung Qualified Code(s): J15.7 - Pneumonia due to Mycoplasma pneumoniae (18) Nocardial pneumonia SNOMED Code(s): 097035786 Code(s): A43.0 - PULMONARY NOCARDIOSIS Status: Acute Current Visit: Yes (19) Anxiety SNOMED Code(s): 68954851 Code(s): F41.9 - ANXIETY DISORDER, UNSPECIFIED Status: Chronic Priority: Medium Current Visit: No (20) Chest wall pain, chronic SNOMED Code(s): 830987674 Code(s): R07.89 - OTHER CHEST PAIN; G89.29 - OTHER CHRONIC PAIN Status: Acute Current Visit: No (21) Dental caries extending into dentin Status: Acute Current Visit: No (22) Depression with anxiety SNOMED Code(s): 986448616 Code(s): F41.8 - OTHER SPECIFIED ANXIETY DISORDERS Status: Acute Current Visit: No (23) Hypokalemia SNOMED Code(s): 56690418 Code(s): E87.6 - HYPOKALEMIA Status: Acute Current Visit: No (24) Hypomagnesemia SNOMED Code(s): 429363811 Code(s): E83.42 - HYPOMAGNESEMIA Status: Acute Priority: High Current Visit: No (25) Oral candidiasis SNOMED Code(s): 77643126 Code(s): B37.0 - CANDIDAL STOMATITIS Status: Acute Current Visit: No (26) Severe anxiety SNOMED Code(s): 41168193 Code(s): F41.9 - ANXIETY DISORDER, UNSPECIFIED Status: Chronic Priority: Medium Current Visit: No - Problem List Review Problem List Initiated/Reviewed/Updated: Yes - Plan Plan:: ASSESSMENT BY DAY Day 1 - Patient came in to ED for worsening shortness of breath--> placed on BiPAP--> admitted to ICU on BIPAP - Mental status declined and PCO2>100 + pH 7.1--> Intubated - Sedated with Versed and propofol - Tachycardic, requires IV metoprolol - Started on Rocephin, azithromycin and Tamiflu Day 2 - Intubated - Significant improvement in WBC - Sedation vacation --> patient got agitated - Failed SBT Day3 - Procalcitonin elevated - Respiratory panel + for RSV and mycoplasma - Discontinued Tamiflu and Rocephin - Kept O2 sat > 95% with FiO2 of 45% - Urine output decreased significantly to 540/24 hrs--> responded to fluid bolus Day 4 - Extubated - Transitioned to BiPAP - Attempted hi-flow but patient is a mouth breather and SatO2 < low 80's - Minimal improvement in UO--> Lasix - Significant hallucinations overnight with delirium, no physical agitation Day 5 - UO increased with single dose of Lasix - Completing azithromycin day 5 - Very limited movement due to drop in O2 saturation with minimal movement including leaning forward and just moving head or hands - Unable to perform ADLs due to shortness of breath Day 6 - Advance diet to regular - Dietary giving high protein custard and 4oz of ensure TID - PT recommending home health with increased services - Tolerated CPAP overnight well Day 7 - Procalcitonin trending down - No BM yet - Eating better - Passive range of motion with PT - Used BiPAP all night - Reduce Solumedrol dose - Oral candidiasis with concern for esophageal, will consult surgery to evaluate EGD feasibility - Lactulose q6h until BM Day 8 - Slept OK - BM today - Decreased Solumedrol dose - PT recommending front wheel walker, transfer tub, wheelchair - Start Nystatin - Anesthesia recommended to defer EGD for after patient has been discharged from this hospitalization - OK to downgrade to medical floor Day 9 - Sputum culture confirmed with Nocardia - Started Bactrim - Clinically improved and stable - NC at 4L throughout - Decrease Solumedrol dose PLAN BY SYSTEMS Neurologic: Monitor mental status Avoid interactions during the night Respiratory: NC throughout the day Atrovent q8h Budesonide q12 IV Solumedrol q12h Cardiovascular: Metoprolol PO, scheduled Trend BP and start medication if required PRN hydralazine for BP > 180/100 Renal and Electrolytes: Continue Pinto catheter Pinto catheter care by nursing Monitor urine output, goal >30ml/hh GI and hepatology: Regular diet 4oz Ensure TID Scheduled Senna Endocrine and Metabolism: Monitor glucose on daily labs Infectious Disease Continue Nystatin swallow Started Bactrim, day 2 Monitor temp and panculture if greater than 99.2 Procalcitonin every 48h Hematology, Oncology and Immune system: No signs of active bleeding Goal Hb >7 PROPHYLAXIS DVT- Lovenox GI- not indicated CODE STATUS: FULL CODE DISPOSITION: Patient will remain hospitalized, but OK to transfer to medical floor for continued PT/OT and RT. Sputum culture has grown and confirmed with Nocardia, started on Bactrim yesterday. Length of stay greater than 96 hours due to suboptimal response to treatment
[2019-12-22] MEDS: Mirtazapine 30 MG Tab PO SCH (20:17)
[2019-12-22] MEDS: Ketorolac 15 MG/ML SDV IVPUSH PRN (22:14)
[2019-12-23] MEDS ORDERED: Morphine 2 MG/ML SYRINGE IVPUSH PRN (02:30)
[2019-12-23] MEDS: Acetaminophen/HYDROcodone 325-5 MG Tab PO PRN ×4 (04:11→21:26)
[2019-12-23] MEDS: Budesonide 0.5 MG/2 ML Neb Susp NEB SCH ×2 (05:43→20:18)
[2019-12-23] MEDS: Ipratropium 0.02% 0.5 MG/2.5 ML Neb Soln NEB SCH ×3 (05:43→20:19)
[2019-12-23] MEDS: Ketorolac 15 MG/ML SDV IVPUSH PRN ×3 (06:38→19:17)
[2019-12-23] MEDS: ALPRAZolam 1 MG Tab PO PRN ×2 (07:33→20:44)
[2019-12-23] MEDS: Nystatin Susp 100,000 Unit/ML 5 ML Oral Syringe PO SCH ×4 (08:10→20:44)
[2019-12-23] MEDS: Sulfamethoxazole/Trimethoprim 800-160 MG Tab PO SCH ×2 (08:11→20:43)
[2019-12-23] MEDS: Sennosides 8.6 MG Tab PO SCH ×3 (08:11→20:54)
[2019-12-23] MEDS: Metoprolol Tartrate 50 MG Tab PO SCH ×2 (08:11→20:43)
[2019-12-23] MEDS: guaiFENesin 600 MG Tab.ER PO SCH ×3 (08:11→20:44)
[2019-12-23] MEDS: Magnesium Oxide 400 MG Tab PO SCH (08:11)
[2019-12-23] MEDS: Hydrochlorothiazide/Triamterene 25-37.5 MG Cap PO SCH (08:11)
[2019-12-23] MEDS: methylPREDNISolone Sodium Succinate 40 MG/1 ML SDV IVPUSH SCH ×2 (08:12→20:44)
[2019-12-23] MEDS: Enoxaparin 40 MG/0.4 ML Syringe SUBCUT SCH (08:12)
--- NOTE | 2019-12-23 09:14 | PCM.PN ---
- General Info Date of Service: 12/23/19 Subjective Update: BM 12/21 Eating 100% of regular diet and supplements Slept OK NC at 4L BP trend 106-145/82-93 HR 71-89 Tmax 98.7 Sat >92% at 4L NC - Patient Data Vitals - Most Recent: Last Vital Signs Temp 97.7 F 12/23/19 04:00 Pulse 87 12/23/19 08:11 Resp 21 H 12/23/19 04:00 BP 129/76 12/23/19 08:11 Pulse Ox 95 12/23/19 05:43 Weight - Most Recent: 58.423 kg - Exam Quality Assessment: Supplemental Oxygen, Urine Catheter, DVT Prophylaxis. No: Skin Breakdown General: Alert, Oriented, Cooperative, No Acute Distress HEENT: Pupils Equal, Pupils Reactive, EOMI, Mucous Membr. Moist/[place] Neck: Supple, Trachea Midline, No JVD, No Thyromegaly, +2 Carotid Pulse wo Bruit. No: Lymphadenopathy Lungs: Decreased Breath Sounds, Crackles, Wheezing (end expirator), Other (No lung sounds on L lung field). No: Rales, Rhonchi, Rub, Stridor Cardiovascular: Regular Rate, Regular Rhythm. No: Murmurs, Gallops, Rubs GI/Abdominal Exam: Normal Bowel Sounds, Soft, Non-Tender. No: Distended, Guarding, Rigid, Rebound Back Exam: Normal Inspection (severe muscle wasting) Extremities: Non-Tender, No Pedal Edema, Slow Capillary Refill Skin: Dry, Cool Neurological: No New Focal Deficit Psy/Mental Status: Alert Sepsis Event Note - Evaluation Sepsis Screening Result: No Definite Risk - Problem List & Annotations (1) Leukocytosis SNOMED Code(s): 380989077, 990260774 Code(s): D72.829 - ELEVATED WHITE BLOOD CELL COUNT, UNSPECIFIED Status: Acute Current Visit: Yes (2) Thrombocytosis SNOMED Code(s): 2179427 Code(s): D47.3 - ESSENTIAL (HEMORRHAGIC) THROMBOCYTHEMIA Status: Acute Current Visit: Yes (3) Hypochloremia SNOMED Code(s): 23575090 Code(s): E87.8 - OTH DISORDERS OF ELECTROLYTE AND FLUID BALANCE, NEC Status : Acute Current Visit: Yes (4) Hypoalbuminemia SNOMED Code(s): 626244336 Code(s): E88.09 - OTH DISORDERS OF PLASMA-PROTEIN METABOLISM, NEC Status: Acute Current Visit: Yes (5) Elevated troponin SNOMED Code(s): 193582436, 197467574, 957236903 Code(s): R79.89 - OTHER SPECIFIED ABNORMAL FINDINGS OF BLOOD CHEMISTRY Status: Acute Current Visit: Yes (6) Chronic respiratory acidosis SNOMED Code(s): 7539763 Code(s): E87.2 - ACIDOSIS Status: Acute Current Visit: Yes (7) End stage COPD SNOMED Code(s): 025376131 Code(s): J44.9 - CHRONIC OBSTRUCTIVE PULMONARY DISEASE, UNSPECIFIED Status : Acute Current Visit: Yes (8) Respiratory failure with hypoxia and hypercapnia SNOMED Code(s): 58467207 Code(s): J96.91 - RESPIRATORY FAILURE, UNSPECIFIED WITH HYPOXIA; J96.92 - RESPIRATORY FAILURE, UNSPECIFIED WITH HYPERCAPNIA Status: Acute Current Visit: Yes Qualifiers: Chronicity: acute on chronic Qualified Code(s): J96.21 - Acute and chronic respiratory failure with hypoxia; J96.22 - Acute and chronic respiratory failure with hypercapnia (9) COPD exacerbation SNOMED Code(s): 755425285, 609746748 Code(s): J44.1 - CHRONIC OBSTRUCTIVE PULMONARY DISEASE W (ACUTE) EXACERBATION Status: Acute Priority: High Current Visit: No (10) Hypomagnesemia SNOMED Code(s): 468965415 Code(s): E83.42 - HYPOMAGNESEMIA Status: Acute Current Visit: No (11) Tachycardia SNOMED Code(s): 2054616 Code(s): R00.0 - TACHYCARDIA, UNSPECIFIED Status: Acute Current Visit: Yes (12) Severe malnutrition SNOMED Code(s): 57111100 Code(s): E43 - UNSPECIFIED SEVERE PROTEIN-CALORIE MALNUTRITION Status: Acute Current Visit: Yes (13) Sinus tachycardia seen on security monitor SNOMED Code(s): 771987363 Code(s): R00.0 - TACHYCARDIA, UNSPECIFIED Status: Acute Current Visit: Yes (14) RSV infection SNOMED Code(s): 14208026 Code(s): B97.4 - RESPIRATORY SYNCYTIAL VIRUS CAUSING DISEASES CLASSD ELSWHR Status: Acute Current Visit: Yes (15) Acute delirium SNOMED Code(s): 4379412, 9221688 Code(s): R41.0 - DISORIENTATION, UNSPECIFIED Status: Acute Current Visit : Yes (16) HTN (hypertension) SNOMED Code(s): 04107874 Code(s): I10 - ESSENTIAL (PRIMARY) HYPERTENSION Status: Chronic Priority : Low Current Visit: No Qualifiers: Hypertension type: unspecified Qualified Code(s): I10 - Essential (primary ) hypertension (17) Mycoplasma pneumonia SNOMED Code(s): 83398096 Code(s): J15.7 - PNEUMONIA DUE TO MYCOPLASMA PNEUMONIAE Status: Acute Priority: High Current Visit: No Qualifiers: Laterality: unspecified laterality Lung location: unspecified part of lung Qualified Code(s): J15.7 - Pneumonia due to Mycoplasma pneumoniae (18) Anxiety SNOMED Code(s): 46077957 Code(s): F41.9 - ANXIETY DISORDER, UNSPECIFIED Status: Chronic Priority: Medium Current Visit: No (19) Chest wall pain, chronic SNOMED Code(s): 835334292 Code(s): R07.89 - OTHER CHEST PAIN; G89.29 - OTHER CHRONIC PAIN Status: Acute Current Visit: No (20) Dental caries extending into dentin Status: Acute Current Visit: No (21) Headache SNOMED Code(s): 33785450 Code(s): R51 - HEADACHE Status: Acute Current Visit: No Qualifiers: Headache type: other vascular headache Qualified Code(s): G44.1 - Vascular headache, not elsewhere classified (22) Hypokalemia SNOMED Code(s): 77712763 Code(s): E87.6 - HYPOKALEMIA Status: Acute Current Visit: No (23) Hypomagnesemia SNOMED Code(s): 086166376 Code(s): E83.42 - HYPOMAGNESEMIA Status: Acute Priority: High Current Visit: No (24) Hypophosphatemia SNOMED Code(s): 2325610 Code(s): E83.39 - OTHER DISORDERS OF PHOSPHORUS METABOLISM Status: Acute Current Visit: Yes (25) Hypoxia SNOMED Code(s): 878374867 Code(s): R09.02 - HYPOXEMIA Status: Chronic Priority: High Current Visit: No (26) Nocardial pneumonia SNOMED Code(s): 733916496 Code(s): A43.0 - PULMONARY NOCARDIOSIS Status: Acute Current Visit: Yes (27) Oral candidiasis SNOMED Code(s): 90413657 Code(s): B37.0 - CANDIDAL STOMATITIS Status: Acute Current Visit: No (28) Pneumonia SNOMED Code(s): 885176270 Code(s): J18.9 - PNEUMONIA, UNSPECIFIED ORGANISM Status: Acute Current Visit: Yes Qualifiers: Pneumonia type: due to unspecified organism Laterality: right Lung location: lower lobe of lung Qualified Code(s): J18.9 - Pneumonia, unspecified organism (29) Pulmonary cachexia due to COPD SNOMED Code(s): 145913451 Code(s): J44.9 - CHRONIC OBSTRUCTIVE PULMONARY DISEASE, UNSPECIFIED; R64 - CACHEXIA Status: Acute Current Visit: Yes (30) Severe anxiety SNOMED Code(s): 90168420 Code(s): F41.9 - ANXIETY DISORDER, UNSPECIFIED Status: Chronic Priority: Medium Current Visit: No (31) Opioid dependence SNOMED Code(s): 76380623 Code(s): F11.20 - OPIOID DEPENDENCE, UNCOMPLICATED Status: Acute Current Visit: Yes - Problem List Review Problem List Initiated/Reviewed/Updated: Yes - Plan Plan:: ASSESSMENT BY DAY Day 1 - Patient came in to ED for worsening shortness of breath--> placed on BiPAP--> admitted to ICU on BIPAP - Mental status declined and PCO2>100 + pH 7.1--> Intubated - Sedated with Versed and propofol - Tachycardic, requires IV metoprolol - Started on Rocephin, azithromycin and Tamiflu Day 2 - Intubated - Significant improvement in WBC - Sedation vacation --> patient got agitated - Failed SBT Day3 - Procalcitonin elevated - Respiratory panel + for RSV and mycoplasma - Discontinued Tamiflu and Rocephin - Kept O2 sat > 95% with FiO2 of 45% - Urine output decreased significantly to 540/24 hrs--> responded to fluid bolus Day 4 - Extubated - Transitioned to BiPAP - Attempted hi-flow but patient is a mouth breather and SatO2 < low 80's - Minimal improvement in UO--> Lasix - Significant hallucinations overnight with delirium, no physical agitation Day 5 - UO increased with single dose of Lasix - Completing azithromycin day 5 - Very limited movement due to drop in O2 saturation with minimal movement including leaning forward and just moving head or hands - Unable to perform ADLs due to shortness of breath Day 6 - Advance diet to regular - Dietary giving high protein custard and 4oz of ensure TID - PT recommending home health with increased services - Tolerated CPAP overnight well Day 7 - Procalcitonin trending down - No BM yet - Eating better - Passive range of motion with PT - Used BiPAP all night - Reduce Solumedrol dose - Oral candidiasis with concern for esophageal, will consult surgery to evaluate EGD feasibility - Lactulose q6h until BM Day 8 - Slept OK - BM today - Decreased Solumedrol dose - PT recommending front wheel walker, transfer tub, wheelchair - Start Nystatin - Anesthesia recommended to defer EGD for after patient has been discharged from this hospitalization - OK to downgrade to medical floor Day 9 - Sputum culture confirmed with Nocardia - Started Bactrim - Clinically improved and stable - NC at 4L throughout - Decrease Solumedrol dose Day 10 - Restart home medications - Slept through the night - Exhibiting drug seeking behavior with morphine - Discussed importance of discontinuing opioids for pain control - PRN Toradol for pain PLAN BY SYSTEMS Neurologic: Monitor mental status Avoid interactions during the night Home Ativan Respiratory: NC throughout the day Atrovent q8h Budesonide q12 IV Solumedrol q12h Guaifenesin TID Cardiovascular: Metoprolol PO, scheduled HCTZ/triamterene home dose Trend BP and start medication if required PRN hydralazine for BP > 180/100 Renal and Electrolytes: Continue Pinto catheter Pinto catheter care by nursing Monitor urine output, goal >30ml/hh GI and hepatology: Regular diet 4oz Ensure TID Scheduled Senna Mirtazapine Endocrine and Metabolism: Monitor glucose on daily labs Infectious Disease Continue Nystatin swallow Continue Bactrim, day 3 Monitor temp and panculture if greater than 99.2 Procalcitonin every 48h Hematology, Oncology and Immune system: No signs of active bleeding Goal Hb >7 PROPHYLAXIS DVT- Lovenox GI- not indicated CODE STATUS: FULL CODE DISPOSITION: Patient will remain hospitalized, on medical floor for continued PT/OT and RT. Sputum culture has grown and confirmed with Nocardia, started on Bactrim, day 3. Length of stay greater than 96 hours due to suboptimal response to treatment
[2019-12-23] MEDS ORDERED: Trolamine Salicylate/Aloe Vera 10% Crm 85 GM Tube TOP PRN (17:46)
[2019-12-23] MEDS: Mirtazapine 30 MG Tab PO SCH (20:44)
[2019-12-24] MEDS: Ketorolac 15 MG/ML SDV IVPUSH PRN ×4 (01:30→20:23)
[2019-12-24] MEDS ORDERED: Morphine 2 MG/ML SYRINGE IVPUSH PRN (02:30)
[2019-12-24] MEDS: Acetaminophen/HYDROcodone 325-5 MG Tab PO PRN ×4 (03:29→21:52)
[2019-12-24] MEDS: Budesonide 0.5 MG/2 ML Neb Susp NEB SCH ×2 (05:54→21:06)
[2019-12-24] MEDS: Ipratropium 0.02% 0.5 MG/2.5 ML Neb Soln NEB SCH ×3 (05:54→21:06)
[2019-12-24] MEDS: Sulfamethoxazole/Trimethoprim 800-160 MG Tab PO SCH ×2 (08:29→20:24)
[2019-12-24] MEDS: Magnesium Oxide 400 MG Tab PO SCH (08:29)
[2019-12-24] MEDS: Enoxaparin 40 MG/0.4 ML Syringe SUBCUT SCH (08:29)
[2019-12-24] MEDS: methylPREDNISolone Sodium Succinate 40 MG/1 ML SDV IVPUSH SCH ×2 (08:29→20:25)
[2019-12-24] MEDS: Nystatin Susp 100,000 Unit/ML 5 ML Oral Syringe PO SCH ×4 (08:29→20:25)
[2019-12-24] MEDS: Metoprolol Tartrate 50 MG Tab PO SCH ×2 (08:30→20:46)
[2019-12-24] MEDS: guaiFENesin 600 MG Tab.ER PO SCH ×3 (08:32→20:24)
[2019-12-24] MEDS: ALPRAZolam 1 MG Tab PO PRN ×2 (08:32→20:24)
[2019-12-24] MEDS: Hydrochlorothiazide/Triamterene 25-37.5 MG Cap PO SCH (08:32)
--- NOTE | 2019-12-24 11:05 | PCM.PN ---
- General Info Date of Service: 12/24/19 Subjective Update: BM x2 yesterday Regular diet, tolerated Complaining of sore throat - Patient Data Vitals - Most Recent: Last Vital Signs Temp 98.2 F 12/24/19 04:00 Pulse 79 12/24/19 08:36 Resp 16 12/24/19 08:36 BP 113/70 12/24/19 08:36 Pulse Ox 95 12/24/19 08:36 Weight - Most Recent: 63.412 kg - Exam Physical Findings Comments:: Quality Assessment: Supplemental Oxygen, DVT Prophylaxis. No: Skin Breakdown General: Alert, Oriented, Cooperative, No Acute Distress HEENT: Pupils Equal, Pupils Reactive, EOMI, Mucous Membr. Moist/[place] Neck: Supple, Trachea Midline, No JVD, No Thyromegaly, +2 Carotid Pulse wo Bruit. No: Lymphadenopathy Lungs: Decreased Breath Sounds, Crackles, Wheezing (end expiratory), Other ( improved lung sounds on L lung field). No: Rales, Rhonchi, Rub, Stridor Cardiovascular: Regular Rate, Regular Rhythm. No: Murmurs, Gallops, Rubs GI/Abdominal Exam: Normal Bowel Sounds, Soft, Non-Tender. No: Distended, Guarding, Rigid, Rebound Back Exam: Normal Inspection (severe muscle wasting) Extremities: Non-Tender, No Pedal Edema, Slow Capillary Refill Skin: Dry, Cool Neurological: No New Focal Deficit Psy/Mental Status: Alert Sepsis Event Note - Evaluation Sepsis Screening Result: No Definite Risk - Focused Exam Vital Signs: Vital Signs Temp Pulse Pulse Resp BP BP Pulse Ox 12/24/19 08:36 79 16 113/70 95 12/24/19 08:30 79 113/70 12/24/19 05:56 12/24/19 04:00 98.2 F 75 20 102/78 95 Pulse Ox 12/24/19 08:36 12/24/19 08:30 12/24/19 05:56 97 12/24/19 04:00 Date Exam was Performed: 12/26/19 Time Exam was Performed: 17:51 - Problem List & Annotations (1) Leukocytosis SNOMED Code(s): 538588522, 607206681 Code(s): D72.829 - ELEVATED WHITE BLOOD CELL COUNT, UNSPECIFIED Status: Acute Current Visit: Yes (2) Thrombocytosis SNOMED Code(s): 8300873 Code(s): D47.3 - ESSENTIAL (HEMORRHAGIC) THROMBOCYTHEMIA Status: Acute Current Visit: Yes (3) Hypochloremia SNOMED Code(s): 42959209 Code(s): E87.8 - OT DISORDERS OF ELECTROLYTE AND FLUID BALANCE, NEC Status : Acute Current Visit: Yes (4) Hypoalbuminemia SNOMED Code(s): 965156581 Code(s): E88.09 - OT DISORDERS OF PLASMA-PROTEIN METABOLISM, NEC Status: Acute Current Visit: Yes (5) Elevated troponin SNOMED Code(s): 210351683, 837985265, 330781754 Code(s): R79.89 - OTHER SPECIFIED ABNORMAL FINDINGS OF BLOOD CHEMISTRY Status: Acute Current Visit: Yes (6) Chronic respiratory acidosis SNOMED Code(s): 3425049 Code(s): E87.2 - ACIDOSIS Status: Acute Current Visit: Yes (7) End stage COPD SNOMED Code(s): 604943086 Code(s): J44.9 - CHRONIC OBSTRUCTIVE PULMONARY DISEASE, UNSPECIFIED Status : Acute Current Visit: Yes (8) Respiratory failure with hypoxia and hypercapnia SNOMED Code(s): 98012365 Code(s): J96.91 - RESPIRATORY FAILURE, UNSPECIFIED WITH HYPOXIA; J96.92 - RESPIRATORY FAILURE, UNSPECIFIED WITH HYPERCAPNIA Status: Acute Current Visit: Yes Qualifiers: Chronicity: acute on chronic Qualified Code(s): J96.21 - Acute and chronic respiratory failure with hypoxia; J96.22 - Acute and chronic respiratory failure with hypercapnia (9) COPD exacerbation SNOMED Code(s): 194434745, 743197849 Code(s): J44.1 - CHRONIC OBSTRUCTIVE PULMONARY DISEASE W (ACUTE) EXACERBATION Status: Acute Priority: High Current Visit: No (10) Hypomagnesemia SNOMED Code(s): 616821091 Code(s): E83.42 - HYPOMAGNESEMIA Status: Acute Current Visit: No (11) Tachycardia SNOMED Code(s): 4878379 Code(s): R00.0 - TACHYCARDIA, UNSPECIFIED Status: Acute Current Visit: Yes (12) Severe malnutrition SNOMED Code(s): 81201047 Code(s): E43 - UNSPECIFIED SEVERE PROTEIN-CALORIE MALNUTRITION Status: Acute Current Visit: Yes (13) Sinus tachycardia seen on quality assurance monitor SNOMED Code(s): 438076127 Code(s): R00.0 - TACHYCARDIA, UNSPECIFIED Status: Acute Current Visit: Yes (14) RSV infection SNOMED Code(s): 17019622 Code(s): B97.4 - RESPIRATORY SYNCYTIAL VIRUS CAUSING DISEASES CLASSD ELSWHR Status: Acute Current Visit: Yes (15) Acute delirium SNOMED Code(s): 0816314, 2165367 Code(s): R41.0 - DISORIENTATION, UNSPECIFIED Status: Resolved Current Visit: Yes (16) HTN (hypertension) SNOMED Code(s): 23702973 Code(s): I10 - ESSENTIAL (PRIMARY) HYPERTENSION Status: Chronic Priority : Low Current Visit: No Qualifiers: Hypertension type: unspecified Qualified Code(s): I10 - Essential (primary ) hypertension (17) Mycoplasma pneumonia SNOMED Code(s): 09831004 Code(s): J15.7 - PNEUMONIA DUE TO MYCOPLASMA PNEUMONIAE Status: Resolved Priority: High Current Visit: No Qualifiers: Laterality: unspecified laterality Lung location: unspecified part of lung Qualified Code(s): J15.7 - Pneumonia due to Mycoplasma pneumoniae (18) Anxiety SNOMED Code(s): 79849460 Code(s): F41.9 - ANXIETY DISORDER, UNSPECIFIED Status: Chronic Priority: Medium Current Visit: No (19) Chest wall pain, chronic SNOMED Code(s): 475098009 Code(s): R07.89 - OTHER CHEST PAIN; G89.29 - OTHER CHRONIC PAIN Status: Acute Current Visit: No (20) Dental caries extending into dentin Status: Acute Current Visit: No (21) Headache SNOMED Code(s): 55351873 Code(s): R51 - HEADACHE Status: Acute Current Visit: No Qualifiers: Headache type: other vascular headache Qualified Code(s): G44.1 - Vascular headache, not elsewhere classified (22) Hypokalemia SNOMED Code(s): 10611468 Code(s): E87.6 - HYPOKALEMIA Status: Resolved Current Visit: No (23) Hypomagnesemia SNOMED Code(s): 592761170 Code(s): E83.42 - HYPOMAGNESEMIA Status: Acute Priority: High Current Visit: No (24) Hypophosphatemia SNOMED Code(s): 4984295 Code(s): E83.39 - OTHER DISORDERS OF PHOSPHORUS METABOLISM Status: Resolved Current Visit: Yes (25) Hypoxia SNOMED Code(s): 219457835 Code(s): R09.02 - HYPOXEMIA Status: Chronic Priority: High Current Visit: No (26) Nocardial pneumonia SNOMED Code(s): 325256668 Code(s): A43.0 - PULMONARY NOCARDIOSIS Status: Acute Current Visit: Yes (27) Oral candidiasis SNOMED Code(s): 06763169 Code(s): B37.0 - CANDIDAL STOMATITIS Status: Acute Current Visit: No (28) Pneumonia SNOMED Code(s): 217105490 Code(s): J18.9 - PNEUMONIA, UNSPECIFIED ORGANISM Status: Acute Current Visit: Yes Qualifiers: Pneumonia type: due to unspecified organism Laterality: right Lung location: lower lobe of lung Qualified Code(s): J18.9 - Pneumonia, unspecified organism (29) Pulmonary cachexia due to COPD SNOMED Code(s): 306717818 Code(s): J44.9 - CHRONIC OBSTRUCTIVE PULMONARY DISEASE, UNSPECIFIED; R64 - CACHEXIA Status: Acute Current Visit: Yes (30) Severe anxiety SNOMED Code(s): 59827188 Code(s): F41.9 - ANXIETY DISORDER, UNSPECIFIED Status: Chronic Priority: Medium Current Visit: No (31) Opioid dependence SNOMED Code(s): 26985438 Code(s): F11.20 - OPIOID DEPENDENCE, UNCOMPLICATED Status: Acute Current Visit: Yes - Problem List Review Problem List Initiated/Reviewed/Updated: Yes - Plan Plan:: ASSESSMENT BY DAY Day 1 - Patient came in to ED for worsening shortness of breath--> placed on BiPAP--> admitted to ICU on BIPAP - Mental status declined and PCO2>100 + pH 7.1--> Intubated - Sedated with Versed and propofol - Tachycardic, requires IV metoprolol - Started on Rocephin, azithromycin and Tamiflu Day 2 - Intubated - Significant improvement in WBC - Sedation vacation --> patient got agitated - Failed SBT Day3 - Procalcitonin elevated - Respiratory panel + for RSV and mycoplasma - Discontinued Tamiflu and Rocephin - Kept O2 sat > 95% with FiO2 of 45% - Urine output decreased significantly to 540/24 hrs--> responded to fluid bolus Day 4 - Extubated - Transitioned to BiPAP - Attempted hi-flow but patient is a mouth breather and SatO2 < low 80's - Minimal improvement in UO--> Lasix - Significant hallucinations overnight with delirium, no physical agitation Day 5 - UO increased with single dose of Lasix - Completing azithromycin day 5 - Very limited movement due to drop in O2 saturation with minimal movement including leaning forward and just moving head or hands - Unable to perform ADLs due to shortness of breath Day 6 - Advance diet to regular - Dietary giving high protein custard and 4oz of ensure TID - PT recommending home health with increased services - Tolerated CPAP overnight well Day 7 - Procalcitonin trending down - No BM yet - Eating better - Passive range of motion with PT - Used BiPAP all night - Reduce Solumedrol dose - Oral candidiasis with concern for esophageal, will consult surgery to evaluate EGD feasibility - Lactulose q6h until BM Day 8 - Slept OK - BM today - Decreased Solumedrol dose - PT recommending front wheel walker, transfer tub, wheelchair - Start Nystatin - Anesthesia recommended to defer EGD for after patient has been discharged from this hospitalization - OK to downgrade to medical floor Day 9 - Sputum culture confirmed with Nocardia - Started Bactrim - Clinically improved and stable - NC at 4L throughout - Decrease Solumedrol dose Day 10 - Restart home medications - Slept through the night - Exhibiting drug seeking behavior with morphine - Discussed importance of discontinuing opioids for pain control - PRN Toradol for pain Day 11 - Complaining of sore throat, started on magic mouth wash - K is 5.3 --> EKG - Phos 1.8 - Mg 1.8 - Sat > 90% with 4L NC - Sleeping great - Feels a lot better, close to baseline PLAN BY SYSTEMS Neurologic: Monitor mental status Avoid interactions during the night Home Ativan Respiratory: NC throughout the day Atrovent q8h Budesonide q12 IV Solumedrol q12h Guaifenesin TID Cardiovascular: Metoprolol PO, scheduled HCTZ/triamterene home dose Trend BP and start medication if required PRN hydralazine for BP > 180/100 EKG for hyperkalemia Renal and Electrolytes: Continue Pinto catheter Pinto catheter care by nursing Monitor urine output, goal >30ml/hh GI and hepatology: Regular diet 4oz Ensure TID Scheduled Senna Mirtazapine Endocrine and Metabolism: Monitor glucose on daily labs Infectious Disease Continue Nystatin swallow Continue Bactrim, day 4 Monitor temp and panculture if greater than 99.2 Procalcitonin every 48h Hematology, Oncology and Immune system: No signs of active bleeding Goal Hb >7 PROPHYLAXIS DVT- Lovenox GI- not indicated CODE STATUS: FULL CODE DISPOSITION: Patient will remain hospitalized, on medical floor for continued PT/OT and RT. Sputum culture has grown and confirmed with Nocardia, started on Bactrim, day 4. Length of stay greater than 96 hours due to suboptimal response to treatment
[2019-12-24] MEDS: Sennosides 8.6 MG Tab PO SCH ×2 (11:07→20:25)
[2019-12-24] MEDS ORDERED: Magnesium Sulfate/Water 2 GM in Premix Bag 1 BAG IV SCH (11:45)
[2019-12-24] MEDS ORDERED: Sodium Phosphate 30 MMOLE in Sodium Chloride 0.9% 250 ML IV ONE (12:00)
[2019-12-24] MEDS: Mirtazapine 30 MG Tab PO SCH (20:24)
[2019-12-24] MEDS: Diphenhydramine/Lidocaine/MagAl/Simethicone 119 ML Bottle PO SCH (20:25)
[2019-12-25] MEDS: Ketorolac 15 MG/ML SDV IVPUSH PRN ×3 (03:15→20:47)
[2019-12-25] MEDS: Acetaminophen/HYDROcodone 325-5 MG Tab PO PRN ×4 (04:18→22:15)
[2019-12-25] MEDS: Ipratropium 0.02% 0.5 MG/2.5 ML Neb Soln NEB SCH ×4 (07:04→21:48)
[2019-12-25] MEDS: Budesonide 0.5 MG/2 ML Neb Susp NEB SCH ×2 (07:04→21:48)
[2019-12-25] MEDS: Magnesium Oxide 400 MG Tab PO SCH (08:43)
[2019-12-25] MEDS: guaiFENesin 600 MG Tab.ER PO SCH ×3 (08:43→20:46)
[2019-12-25] MEDS: Metoprolol Tartrate 50 MG Tab PO SCH ×2 (08:43→20:45)
[2019-12-25] MEDS: Sulfamethoxazole/Trimethoprim 800-160 MG Tab PO SCH ×2 (08:43→20:45)
[2019-12-25] MEDS: Enoxaparin 40 MG/0.4 ML Syringe SUBCUT SCH (08:43)
[2019-12-25] MEDS: Diphenhydramine/Lidocaine/MagAl/Simethicone 119 ML Bottle PO SCH ×3 (08:44→20:46)
[2019-12-25] MEDS: methylPREDNISolone Sodium Succinate 40 MG/1 ML SDV IVPUSH SCH (08:44)
[2019-12-25] MEDS: Nystatin Susp 100,000 Unit/ML 5 ML Oral Syringe PO SCH ×4 (08:44→20:46)
[2019-12-25] MEDS: Hydrochlorothiazide/Triamterene 25-37.5 MG Cap PO SCH (08:44)
[2019-12-25] MEDS: Sennosides 8.6 MG Tab PO SCH ×2 (08:46→20:48)
[2019-12-25] MEDS: ALPRAZolam 1 MG Tab PO PRN ×2 (09:01→20:46)
--- NOTE | 2019-12-25 11:38 | PCM.PN ---
- General Info Date of Service: 12/25/19 Admission Dx/Problem (Free Text): Admission Diagnosis/Problem Admission Diagnosis/Problem Hypoxemia requiring supplemental oxygen Subjective Update: Reports she is doing a bit worse today Last BM yesterday No current concerns from patient Functional Status: Reports: Pain Controlled, Tolerating Diet, Ambulating, Urinating, New Symptoms - Review of Systems General: Reports: No Symptoms. Denies: Fever, Weakness, Fatigue HEENT: Reports: No Symptoms. Denies: Headaches Pulmonary: Reports: Shortness of Breath (chronic - slighlty worse today ), Wheezing (chronic ). Denies: Cough, Sputum Cardiovascular: Reports: Dyspnea on Exertion (chronic ). Denies: Chest Pain, Edema Gastrointestinal: Reports: No Symptoms. Denies: Abdominal Pain, Constipation, Diarrhea, Nausea, Vomiting Genitourinary: Reports: No Symptoms. Denies: Pain Musculoskeletal: Reports: No Symptoms Skin: Reports: No Symptoms. Denies: Cyanosis Neurological: Reports: No Symptoms, Difficulty Walking (2/2 dyspnea ). Denies: Confusion, Pre-Existing Deficit, Trouble Speaking Psychiatric: Reports: No Symptoms - Patient Data Vitals - Most Recent: Last Vital Signs Temp 98.6 F 12/25/19 03:25 Pulse 83 12/25/19 08:43 Resp 20 12/25/19 03:25 BP 138/94 H 12/25/19 08:43 Pulse Ox 92 L 12/25/19 03:25 Weight - Most Recent: 140 lb 3.2 oz I&O - Last 24 Hours: Intake & Output 12/24/19 12/25/19 12/25/19 22:59 06:59 14:59 Intake Total 1120 800 Output Total 725 400 Balance 395 400 Lab Results Last 24 Hours: Laboratory Results - last 24 hr 12/25/19 12/25/19 Range/Units 09:58 09:58 WBC 21.56 H (3.98-10.04) K/mm3 RBC 3.98 (3.98-5.22) M/mm3 Hgb 11.1 L (11.2-15.7) gm/dl Hct 36.9 (34.1-44.9) % MCV 92.7 (79.4-94.8) fl MCH 27.9 (25.6-32.2) pg MCHC 30.1 L (32.2-35.5) g/dl RDW Std Deviation 45.3 (36.4-46.3) fL Plt Count 600 H D (182-369) K/mm3 MPV 9.8 (9.4-12.3) fl Neut % (Auto) 89.7 H (34.0-71.1) % Lymph % (Auto) 1.9 L (19.3-51.7) % [place] % (Auto) 7.7 (4.7-12.5) % Eos % (Auto) 0 L (0.7-5.8) Baso % (Auto) 0.0 L (0.1-1.2) % Neut # (Auto) 19.33 H (1.56-6.13) K/mm3 Lymph # (Auto) 0.40 L (1.18-3.74) K/mm3 [place] # (Auto) 1.66 H (0.24-0.36) K/mm3 Eos # (Auto) 0.00 L (0.04-0.36) K/mm3 Baso # (Auto) 0.01 (0.01-0.08) K/mm3 Manual Slide Review Abnormal smear Sodium 139 (136-145) mEq/L Potassium 5.0 (3.5-5.1) mEq/L Chloride 100 (98-107) mEq/L Carbon Dioxide 36 H (21-32) mEq/L Anion Gap 8.0 (5-15) BUN 33 H (7-18) mg/dL Creatinine 0.9 (0.55-1.02) mg/dL Est Cr Clr Drug Dosing 63.55 mL/min Estimated GFR (MDRD) > 60 (>60) mL/min BUN/Creatinine Ratio 36.7 H (14-18) Glucose 159 H (74-106) mg/dL Calcium 7.9 L (8.5-10.1) mg/dL Phosphorus 2.1 L (2.6-4.7) mg/dL Magnesium 1.9 (1.8-2.4) mg/dl John Results Last 24 Hours: Microbiology 12/18/19 17:29 Aerobic Blood Culture - Preliminary Blood - Venous NO GROWTH AFTER 6 DAYS Anaerobic Blood Culture - Preliminary NO GROWTH AFTER 6 DAYS 12/18/19 17:19 Aerobic Blood Culture - Preliminary Blood NO GROWTH AFTER 6 DAYS Anaerobic Blood Culture - Preliminary NO GROWTH AFTER 6 DAYS Med Orders - Current: Current Medications Hydrocodone Bitart/Acetaminophen ([place] 325-5 Mg) 1 tab PO Q6H PRN PRN Reason: Pain Last Admin: 12/25/19 10:26 Dose: 1 tab Alprazolam (Xanax) 1 mg PO BID PRN PRN Reason: Anxiety Last Admin: 12/25/19 09:01 Dose: 1 mg Budesonide (Pulmicort) 0.5 mg NEB BIDRT [facility] Last Admin: 12/25/19 07:04 Dose: Not Given Diphenhydr/Magaldrate/Simeth/Lidoca (First-Mouthwash Blm Susp) 30 ml PO TID [facility] Last Admin: 12/25/19 08:44 Dose: 30 ml Docusate Sodium (Colace) 100 mg PO BID PRN PRN Reason: Constipation Last Admin: 12/21/19 08:31 Dose: 100 mg Enoxaparin Sodium (Lovenox) 40 mg SUBCUT DAILY [facility] Last Admin: 12/25/19 08:43 Dose: 40 mg Guaifenesin (Mucinex) 600 mg PO TID [facility] Last Admin: 12/25/19 08:43 Dose: 600 mg Hydralazine HCl (Apresoline) 10 mg IVPUSH Q2H PRN PRN Reason: Hypertension Last Admin: 12/18/19 16:16 Dose: 10 mg Ipratropium [place] (Atrovent) 0.5 mg NEB Q8HRRT [facility] Last Admin: 12/25/19 07:04 Dose: Not Given Ketorolac Tromethamine (Toradol) 15 mg IVPUSH Q6H PRN PRN Reason: Pain (moderate 4-6) Last Admin: 12/25/19 09:01 Dose: 15 mg Magnesium Oxide (Magnesium Oxide) 400 mg PO DAILY [facility] Last Admin: 12/25/19 08:43 Dose: 400 mg Methylprednisolone (Medrol) 24 mg PO ONETIME ONE Stop: 12/26/19 09:01 Methylprednisolone (Medrol) 20 mg PO ONETIME ONE Stop: 12/27/19 09:01 Methylprednisolone (Medrol) 16 mg PO ONETIME ONE Stop: 12/28/19 09:01 Methylprednisolone (Medrol) 12 mg PO ONETIME ONE Stop: 12/29/19 09:01 Methylprednisolone (Medrol) 8 mg PO ONETIME ONE Stop: 12/30/19 09:01 Methylprednisolone (Medrol) 4 mg PO ONETIME ONE Stop: 12/31/19 09:01 Metoprolol Tartrate (Lopressor) 50 mg PO BID [facility] Last Admin: 12/25/19 08:43 Dose: 50 mg Mirtazapine (Remeron) 30 mg PO BEDTIME [facility] Last Admin: 12/24/19 20:24 Dose: 30 mg Morphine Sulfate (Morphine) 1 mg IVPUSH ONETIME PRN PRN Reason: Pain Nystatin (Nystatin Oral Syringe) 500,000 unit PO QID [facility] Last Admin: 12/25/19 08:44 Dose: 500,000 unit Ondansetron HCl (Zofran Odt) 4 mg PO Q6H PRN PRN Reason: nausea, able to take PO Ondansetron HCl (Zofran) 4 mg IV Q6H PRN PRN Reason: Nausea/Vomiting Senna (Senna) 8.6 mg PO BID [facility] Last Admin: 12/25/19 08:46 Dose: Not Given Triamterene/HCTZ (Dyazide 25-37.5 Mg) 1 each PO DAILY [facility] Last Admin: 12/25/19 08:44 Dose: 1 each Trimethoprim/Sulfamethoxazole (Septra Ds) 1 tab PO BID [facility] Last Admin: 12/25/19 08:43 Dose: 1 tab Trolamine Salicylate (Aspercreme 10%) 0 gm TOP Q4HR PRN PRN Reason: Pain Discontinued Medications Acetaminophen/Codeine Phosphate (Tylenol With Codeine No.3 300mg/30mg) 1 tab PO Q6H PRN PRN Reason: Pain (severe 7-10) Last Admin: 12/18/19 14:13 Dose: 1 tab Azithromycin (Zithromax) 500 mg PO BEDTIME [facility] Stop: 12/18/19 21:01 Last Admin: 12/18/19 21:05 Dose: 500 mg Etomidate (Amidate) 40 mg IVPUSH .STK-MED ONE Stop: 12/14/19 23:41 Haloperidol Lactate (Haldol) 5 mg IVPUSH ONETIME ONE Stop: 12/17/19 09:01 Last Admin: 12/17/19 09:11 Dose: 5 mg Heparin Sodium (Porcine) (Heparin Lock Flush 100 Units/Ml) Confirm Administered Dose 500 units .ROUTE .STK-MED ONE Stop: 12/17/19 18:27 Last Admin: 12/17/19 20:01 Dose: Not Given Hydromorphone HCl (Dilaudid) 0.25 mg IVPUSH ONETIME ONE Stop: 12/14/19 21:24 Last Admin: 12/14/19 21:43 Dose: 0.25 mg Sodium Chloride (Normal Saline) 1,000 mls @ 150 mls/hr IV ASDIRECTED [facility] Last Infusion: 12/16/19 09:23 Dose: 250 mls/hr Azithromycin 500 mg/ Sodium (Chloride) 250 mls @ 250 mls/hr IV Q24H [facility] Stop: 12/18/19 23:30 Last Admin: 12/17/19 21:16 Dose: 250 mls/hr Ceftriaxone Sodium 2 gm/ (Sodium Chloride) 100 mls @ 200 mls/hr IV Q24H [facility] Last Admin: 12/14/19 23:32 Dose: 200 mls/hr Propofol (Diprivan 100 Ml) Confirm Administered Dose 100 mls @ as directed .ROUTE .STK-MED ONE Stop: 12/15/19 00:02 Last Admin: 12/15/19 00:23 Dose: Not Given Propofol (Diprivan 100 Ml) 100 mls @ 1.463 mls/hr IV TITRATE [facility]; Protocol Last Admin: 12/16/19 02:10 Dose: 32 mcg/kg/min, 9.362 mls/hr Norepinephrine Bitartrate 4 mg (/ Dextrose/Water) 250 mls @ 7.5 mls/hr IV TITRATE [facility]; Protocol Ceftriaxone Sodium 2 gm/ (Sodium Chloride) 100 mls @ 200 mls/hr IV Q24H [facility] Last Admin: 12/15/19 22:38 Dose: 200 mls/hr Magnesium Sulfate 2 gm/ Premix 50 mls @ 25 mls/hr IV ONETIME ONE Stop: 12/15/19 09:59 Last Admin: 12/15/19 08:03 Dose: 25 mls/hr Magnesium Sulfate (Magnesium Sulfate In Water Premix) Confirm Administered Dose 50 mls @ as directed .ROUTE .STK-MED ONE Stop: 12/15/19 07:56 Last Admin: 12/15/19 08:02 Dose: Not Given Midazolam HCl 100 mg/ Sodium (Chloride) 100 mls @ 0.5 mls/hr IV ASDIRECTED [facility] Last Infusion: 12/15/19 17:38 Dose: 5 mls/hr Midazolam HCl 50 mg/ Sodium (Chloride) 50 mls @ 2.44 mls/hr IV TITRATE [facility]; Protocol Lactated Ringer's (Ringers, Lactated) 1,000 mls @ 250 mls/hr IV ASDIRECTED [facility] Last Infusion: 12/16/19 20:44 Dose: 150 mls/hr Lactated Ringer's (Ringers, Lactated) 1,000 mls @ 150 mls/hr IV ASDIRECTED [facility] Last Admin: 12/17/19 08:35 Dose: 150 mls/hr Sodium Chloride (Normal Saline) Confirm Administered Dose 1,000 mls @ as directed .ROUTE .STK-MED ONE Stop: 12/17/19 17:24 Last Admin: 12/17/19 20:01 Dose: Not Given Magnesium Sulfate 4 gm/ Premix 100 mls @ 25 mls/hr IV ONETIME ONE Stop: 12/17/19 23:59 Last Admin: 12/17/19 20:20 Dose: 25 mls/hr Potassium Phosphate 30 mmole/ (Sodium Chloride) 510 mls @ 102 mls/hr IV Q5H [facility] Stop: 12/19/19 21:59 Last Admin: 12/19/19 17:14 Dose: Not Given Magnesium Sulfate 2 gm/ Premix 50 mls @ 25 mls/hr IV Q1H [facility] Stop: 12/24/19 12:44 Last Admin: 12/24/19 12:07 Dose: 25 mls/hr Sodium Phosphate 30 mmole/ (Sodium Chloride) 260 mls @ 86.667 mls/hr IV ONETIME ONE Stop: 12/24/19 12:01 Last Admin: 12/24/19 14:03 Dose: 86.667 mls/hr Ketorolac Tromethamine (Toradol) 15 mg IM Q6H PRN PRN Reason: Pain (moderate 4-6) Ketorolac Tromethamine (Toradol) 15 mg IM Q6H PRN PRN Reason: Pain (moderate 4-6) Lorazepam (Ativan) 1 mg IVPUSH ONETIME ONE Stop: 12/20/19 10:38 Last Admin: 12/20/19 11:00 Dose: 1 mg Methylprednisolone Sodium Succinate (Solu-Medrol) 125 mg IVPUSH Q12H [facility] Last Admin: 12/21/19 10:40 Dose: 125 mg Methylprednisolone Sodium Succinate (Solu-Medrol) 80 mg IVPUSH Q12H [facility] Last Admin: 12/22/19 09:42 Dose: 80 mg Methylprednisolone Sodium Succinate (Solu-Medrol) 40 mg IVPUSH Q12H [facility] Last Admin: 12/25/19 08:44 Dose: 40 mg Metoprolol Tartrate (Lopressor) 2.5 mg IVPUSH ONETIME ONE Stop: 12/15/19 06:06 Last Admin: 12/15/19 06:13 Dose: 2.5 mg Metoprolol Tartrate (Lopressor) 2.5 mg IVPUSH Q12HR [facility] Last Admin: 12/18/19 07:59 Dose: 2.5 mg Metoprolol Tartrate (Lopressor) 10 mg IVPUSH ONETIME ONE Stop: 12/18/19 17:21 Last Admin: 12/18/19 17:00 Dose: 10 mg Morphine Sulfate (Morphine) 1 mg IVPUSH Q4H PRN PRN Reason: Pain (severe 7-10) Stop: 12/15/19 22:06 Morphine Sulfate (Morphine) 1 mg IVPUSH ONETIME ONE Stop: 12/20/19 09:24 Last Admin: 12/20/19 09:35 Dose: 1 mg Morphine Sulfate (Morphine) 1 mg IVPUSH ONETIME ONE Stop: 12/20/19 11:01 Last Admin: 12/20/19 11:30 Dose: 1 mg Morphine Sulfate (Morphine) 1 mg IVPUSH Q8H PRN PRN Reason: Pain (severe 7-10) Last Admin: 12/22/19 14:41 Dose: 1 mg Morphine Sulfate (Morphine) 1 mg IVPUSH ONETIME PRN PRN Reason: Pain Nystatin (Nystatin Oral Syringe) 5 unit PO QID [facility] Last Admin: 12/20/19 20:31 Dose: 5 unit Ondansetron HCl (Zofran) 4 mg IVPUSH ONETIME ONE Stop: 12/14/19 21:23 Last Admin: 12/14/19 21:43 Dose: 4 mg Pantoprazole Sodium (Protonix Iv) 40 mg IVPUSH DAILY@0600 [facility] Last Admin: 12/18/19 06:13 Dose: 40 mg Potassium Chloride (Klor-Con M20) 40 meq PO BID [facility] Stop: 12/19/19 21:01 Last Admin: 12/19/19 20:19 Dose: 40 meq Quetiapine Fumarate (Seroquel) 100 mg PO ONETIME ONE Stop: 12/17/19 21:01 Last Admin: 12/17/19 20:21 Dose: 100 mg Succinylcholine Chloride (Quelicin) 200 mg .ROUTE .STK-MED ONE Stop: 12/14/19 23:41 - Exam Quality Assessment: Supplemental Oxygen (4L), DVT Prophylaxis General: Alert, Oriented, Cooperative, No Acute Distress, Other (Very thin) HEENT: Pupils Equal, Pupils Reactive, Mucous Membr. Moist/[place] Neck: Supple, Trachea Midline Lungs: Decreased Breath Sounds, Wheezing, Other (Minimal airflow with no lung sounds in lower [place] bilaterally. ) GI/Abdominal Exam: Normal Bowel Sounds, Soft, Non-Tender, No Distention Back Exam: Normal Inspection, Full Range of Motion Extremities: Normal Inspection, Normal Range of Motion, Non-Tender, No Pedal Edema, Normal Capillary Refill Peripheral Pulses: 2+: Radial (L), Radial (R), Dorsalis Pedis (L), Dorsalis Pedis (R) Skin: Warm, Dry, Intact Neurological: No New Focal Deficit Psy/Mental Status: Alert, Normal Affect, Normal Mood Sepsis Event Note - Evaluation Sepsis Screening Result: No Definite Risk - Focused Exam Vital Signs: Vital Signs Temp Pulse Pulse Resp BP BP Pulse Ox 12/25/19 08:43 83 138/94 H 12/25/19 03:25 98.6 F 79 20 133/72 92 L Date Exam was Performed: 12/25/19 Time Exam was Performed: 14:58 - Problem List & Annotations (1) Acute delirium SNOMED Code(s): 4687760, 2485117 Code(s): R41.0 - DISORIENTATION, UNSPECIFIED Status: Acute Current Visit : Yes (2) Chronic respiratory acidosis SNOMED Code(s): 9143598 Code(s): E87.2 - ACIDOSIS Status: Acute Current Visit: Yes (3) Elevated troponin SNOMED Code(s): 487858471, 234483654, 280550085 Code(s): R79.89 - OTHER SPECIFIED ABNORMAL FINDINGS OF BLOOD CHEMISTRY Status: Acute Current Visit: Yes (4) End stage COPD SNOMED Code(s): 628829278 Code(s): J44.9 - CHRONIC OBSTRUCTIVE PULMONARY DISEASE, UNSPECIFIED Status : Acute Current Visit: Yes (5) Hypoalbuminemia SNOMED Code(s): 904440539 Code(s): E88.09 - OTH DISORDERS OF PLASMA-PROTEIN METABOLISM, NEC Status: Acute Current Visit: Yes (6) Hypochloremia SNOMED Code(s): 08316142 Code(s): E87.8 - OTH DISORDERS OF ELECTROLYTE AND FLUID BALANCE, NEC Status : Acute Current Visit: Yes (7) Hypophosphatemia SNOMED Code(s): 0708111 Code(s): E83.39 - OTHER DISORDERS OF PHOSPHORUS METABOLISM Status: Acute Current Visit: Yes (8) Leukocytosis SNOMED Code(s): 679594393, 822119374 Code(s): D72.829 - ELEVATED WHITE BLOOD CELL COUNT, UNSPECIFIED Status: Acute Current Visit: Yes (9) Nocardial pneumonia SNOMED Code(s): 633283516 Code(s): A43.0 - PULMONARY NOCARDIOSIS Status: Acute Current Visit: Yes (10) Opioid dependence SNOMED Code(s): 10860496 Code(s): F11.20 - OPIOID DEPENDENCE, UNCOMPLICATED Status: Acute Current Visit: Yes (11) Pneumonia SNOMED Code(s): 690944227 Code(s): J18.9 - PNEUMONIA, UNSPECIFIED ORGANISM Status: Acute Current Visit: Yes Qualifiers: Pneumonia type: due to unspecified organism Laterality: right Lung location: lower lobe of lung Qualified Code(s): J18.9 - Pneumonia, unspecified organism (12) Pulmonary cachexia due to COPD SNOMED Code(s): 604766921 Code(s): J44.9 - CHRONIC OBSTRUCTIVE PULMONARY DISEASE, UNSPECIFIED; R64 - CACHEXIA Status: Acute Current Visit: Yes (13) RSV infection SNOMED Code(s): 10471873 Code(s): B97.4 - RESPIRATORY SYNCYTIAL VIRUS CAUSING DISEASES CLASSD ELSWHR Status: Acute Current Visit: Yes (14) Respiratory failure with hypoxia and hypercapnia SNOMED Code(s): 41172956 Code(s): J96.91 - RESPIRATORY FAILURE, UNSPECIFIED WITH HYPOXIA; J96.92 - RESPIRATORY FAILURE, UNSPECIFIED WITH HYPERCAPNIA Status: Acute Current Visit: Yes Qualifiers: Chronicity: acute on chronic Qualified Code(s): J96.21 - Acute and chronic respiratory failure with hypoxia; J96.22 - Acute and chronic respiratory failure with hypercapnia (15) Severe malnutrition SNOMED Code(s): 95452538 Code(s): E43 - UNSPECIFIED SEVERE PROTEIN-CALORIE MALNUTRITION Status: Acute Current Visit: Yes (16) Sinus tachycardia seen on cardiac cath lab manager SNOMED Code(s): 367605432 Code(s): R00.0 - TACHYCARDIA, UNSPECIFIED Status: Acute Current Visit: Yes (17) Thrombocytosis SNOMED Code(s): 1611222 Code(s): D47.3 - ESSENTIAL (HEMORRHAGIC) THROMBOCYTHEMIA Status: Acute Current Visit: Yes (18) COPD exacerbation SNOMED Code(s): 653256933 Code(s): J44.1 - CHRONIC OBSTRUCTIVE PULMONARY DISEASE W (ACUTE) EXACERBATION Status: Acute Current Visit: No (19) Chest wall pain, chronic SNOMED Code(s): 935426212 Code(s): R07.89 - OTHER CHEST PAIN; G89.29 - OTHER CHRONIC PAIN Status: Acute Current Visit: No (20) Dental caries extending into dentin Status: Acute Current Visit: No (21) Headache SNOMED Code(s): 89225765 Code(s): R51 - HEADACHE Status: Acute Current Visit: No Qualifiers: Headache type: other vascular headache Qualified Code(s): G44.1 - Vascular headache, not elsewhere classified (22) Hypokalemia SNOMED Code(s): 51834409 Code(s): E87.6 - HYPOKALEMIA Status: Acute Current Visit: No (23) Hypomagnesemia SNOMED Code(s): 277627774 Code(s): E83.42 - HYPOMAGNESEMIA Status: Acute Priority: High Current Visit: No (24) Mycoplasma pneumonia SNOMED Code(s): 77142957 Code(s): J15.7 - PNEUMONIA DUE TO MYCOPLASMA PNEUMONIAE Status: Acute Priority: High Current Visit: No Qualifiers: Laterality: unspecified laterality Lung location: unspecified part of lung Qualified Code(s): J15.7 - Pneumonia due to Mycoplasma pneumoniae (25) Oral candidiasis SNOMED Code(s): 42546644 Code(s): B37.0 - CANDIDAL STOMATITIS Status: Acute Current Visit: No (26) Anxiety SNOMED Code(s): 98321228 Code(s): F41.9 - ANXIETY DISORDER, UNSPECIFIED Status: Chronic Priority: Medium Current Visit: No (27) HTN (hypertension) SNOMED Code(s): 19309121 Code(s): I10 - ESSENTIAL (PRIMARY) HYPERTENSION Status: Chronic Priority : Low Current Visit: No Qualifiers: Hypertension type: unspecified Qualified Code(s): I10 - Essential (primary ) hypertension (28) Hypoxia SNOMED Code(s): 230804734 Code(s): R09.02 - HYPOXEMIA Status: Chronic Priority: High Current Visit: No (29) Severe anxiety SNOMED Code(s): 46001075 Code(s): F41.9 - ANXIETY DISORDER, UNSPECIFIED Status: Chronic Priority: Medium Current Visit: No - Problem List Review Problem List Initiated/Reviewed/Updated: Yes - Plan Plan:: ASSESSMENT BY DAY Day 1 - Patient came in to ED for worsening shortness of breath--> placed on BiPAP--> admitted to ICU on BIPAP - Mental status declined and PCO2>100 + pH 7.1--> Intubated - Sedated with Versed and propofol - Tachycardic, requires IV metoprolol - Started on Rocephin, azithromycin and Tamiflu Day 2 - Intubated - Significant improvement in WBC - Sedation vacation --> patient got agitated - Failed SBT Day3 - Procalcitonin elevated - Respiratory panel + for RSV and mycoplasma - Discontinued Tamiflu and Rocephin - Kept O2 sat > 95% with FiO2 of 45% - Urine output decreased significantly to 540/24 hrs--> responded to fluid bolus Day 4 - Extubated - Transitioned to BiPAP - Attempted hi-flow but patient is a mouth breather and SatO2 < low 80's - Minimal improvement in UO--> Lasix - Significant hallucinations overnight with delirium, no physical agitation Day 5 - UO increased with single dose of Lasix - Completing azithromycin day 5 - Very limited movement due to drop in O2 saturation with minimal movement including leaning forward and just moving head or hands - Unable to perform ADLs due to shortness of breath Day 6 - Advance diet to regular - Dietary giving high protein custard and 4oz of ensure TID - PT recommending home health with increased services - Tolerated CPAP overnight well Day 7 - Procalcitonin trending down - No BM yet - Eating better - Passive range of motion with PT - Used BiPAP all night - Reduce Solumedrol dose - Oral candidiasis with concern for esophageal, will consult surgery to evaluate EGD feasibility - Lactulose q6h until BM Day 8 - Slept OK - BM today - Decreased Solumedrol dose - PT recommending front wheel walker, transfer tub, wheelchair - Start Nystatin - Anesthesia recommended to defer EGD for after patient has been discharged from this hospitalization - OK to downgrade to medical floor Day 9 - Sputum culture confirmed with Nocardia - Started Bactrim - Clinically improved and stable - NC at 4L throughout - Decrease Solumedrol dose Day 10 - Restart home medications - Slept through the night - Exhibiting drug seeking behavior with morphine - Discussed importance of discontinuing opioids for pain control - PRN Toradol for pain Day 11 - Reports she feels slightly worse today - Last BM yesterday - Phosphorous low - supplement - Start Medrol dose pack - Hyperkalemia - stop Dyazide, check EKG - Hypophosphatemia - supplement - Reports daughter will be coming to take care of her starting this Wednesday. - Sanderson caterer removed [employer] Neurologic: Monitor mental status Avoid interactions during the night Home Ativan Respiratory: NC throughout the day Atrovent q8h Budesonide q12 PO Medrol dose pack Guaifenesin TID Cardiovascular: Metoprolol PO, scheduled HCTZ home dose Trend BP and start medication if required PRN hydralazine for BP > 180/100 Renal and Electrolytes: Discontinue sanderson catheter Monitor urine output GI and hepatology: Regular diet 4oz Ensure TID Scheduled Senna Mirtazapine Endocrine and Metabolism: Monitor glucose on daily labs Infectious Disease Continue Nystatin swallow Continue Bactrim, day 4 Monitor temp and panculture if greater than 99.2 Procalcitonin pending Hematology, Oncology and Immune system: No signs of active bleeding Goal Hb >7 PROPHYLAXIS DVT- Lovenox GI- not indicated CODE STATUS: FULL CODE DISPOSITION: Patient will remain hospitalized, on medical floor for continued PT/OT and RT. Sputum culture has grown and confirmed with Nocardia, started on Bactrim, day 4. Length of stay greater than 96 hours due to suboptimal response to treatment Likely discharge 12/27/19
[2019-12-25] MEDS: Sodium Phosphate 30 MMOLE in Sodium Chloride 0.9% 250 ML IV SCH ×2 (16:17→19:19)
[2019-12-25] MEDS ORDERED: Calcium Gluconate 10% 1 GM/10 ML SDV IVPUSH ONE (18:17)
[2019-12-25] MEDS ORDERED: Insulin Regular, Human 100 Units/ML 3 ML Vial IV ONE (18:19)
[2019-12-25] MEDS ORDERED: 50% Dextrose in Water 50 ML Syringe IVPUSH ONE (18:40)
[2019-12-25] MEDS: Mirtazapine 30 MG Tab PO SCH (20:46)
[2019-12-26] MEDS: Acetaminophen/HYDROcodone 325-5 MG Tab PO PRN ×3 (04:48→18:06)
[2019-12-26] MEDS: Budesonide 0.5 MG/2 ML Neb Susp NEB SCH (06:33)
[2019-12-26] MEDS: Ipratropium 0.02% 0.5 MG/2.5 ML Neb Soln NEB SCH (06:33)
--- NOTE | 2019-12-26 07:42 | PCM.PN ---
- General Info Date of Service: 12/26/19 Admission Dx/Problem (Free Text): Admission Diagnosis/Problem Admission Diagnosis/Problem Hypoxemia requiring supplemental oxygen Functional Status: Reports: Pain Controlled, Tolerating Diet, Ambulating, Urinating, Incentive Spirometry, Other (acapella ). Denies: New Symptoms - Review of Systems General: Reports: No Symptoms, Weakness (about the same as yesterday ), Fatigue (about the same as yesterday), Malaise (about the same as yesterday ). Denies: Fever, Chills HEENT: Reports: Sore Throat. Denies: Headaches Pulmonary: Reports: Shortness of Breath, Cough, Sputum, Wheezing Cardiovascular: Reports: No Symptoms, Dyspnea on Exertion. Denies: Chest Pain, Palpitations Gastrointestinal: Reports: No Symptoms. Denies: Abdominal Pain, Constipation, Diarrhea, Nausea, Vomiting Genitourinary: Reports: No Symptoms. Denies: Pain Musculoskeletal: Reports: No Symptoms Skin: Reports: No Symptoms. Denies: Cyanosis Neurological: Reports: No Symptoms. Denies: Confusion, Difficulty Walking, Gait Disturbance Psychiatric: Reports: No Symptoms - Patient Data Vitals - Most Recent: Last Vital Signs Temp 97.9 F 12/26/19 03:00 Pulse 90 12/26/19 03:00 Resp 20 12/26/19 03:00 BP 132/76 12/26/19 03:00 Pulse Ox 90 L 12/26/19 03:00 Weight - Most Recent: 142 lb 4.8 oz I&O - Last 24 Hours: Intake & Output 12/25/19 12/26/19 12/26/19 22:59 06:59 14:59 Intake Total 1380 1000 Output Total 300 Balance 1080 1000 Lab Results Last 24 Hours: Laboratory Results - last 24 hr 12/24/19 12/25/19 12/25/19 Range/Units 05:26 09:58 09:58 WBC 21.56 H (3.98-10.04) K/mm3 RBC 3.98 (3.98-5.22) M/mm3 Hgb 11.1 L (11.2-15.7) gm/dl Hct 36.9 (34.1-44.9) % MCV 92.7 (79.4-94.8) fl MCH 27.9 (25.6-32.2) pg MCHC 30.1 L (32.2-35.5) g/dl RDW Std Deviation 45.3 (36.4-46.3) fL Plt Count 600 H D (182-369) K/mm3 MPV 9.8 (9.4-12.3) fl Neut % (Auto) 89.7 H (34.0-71.1) % Lymph % (Auto) 1.9 L (19.3-51.7) % Will % (Auto) 7.7 (4.7-12.5) % Eos % (Auto) 0 L (0.7-5.8) Baso % (Auto) 0.0 L (0.1-1.2) % Neut # (Auto) 19.33 H (1.56-6.13) K/mm3 Lymph # (Auto) 0.40 L (1.18-3.74) K/mm3 Will # (Auto) 1.66 H (0.24-0.36) K/mm3 Eos # (Auto) 0.00 L (0.04-0.36) K/mm3 Baso # (Auto) 0.01 (0.01-0.08) K/mm3 Manual Slide Review Abnormal smear Sodium 139 (136-145) mEq/L Potassium 5.0 (3.5-5.1) mEq/L Chloride 100 (98-107) mEq/L Carbon Dioxide 36 H (21-32) mEq/L Anion Gap 8.0 (5-15) BUN 33 H (7-18) mg/dL Creatinine 0.9 (0.55-1.02) mg/dL Est Cr Clr Drug Dosing 63.55 mL/min Estimated GFR (MDRD) > 60 (>60) mL/min BUN/Creatinine Ratio 36.7 H (14-18) Glucose 159 H (74-106) mg/dL Calcium 7.9 L (8.5-10.1) mg/dL Phosphorus 2.1 L (2.6-4.7) mg/dL Magnesium 1.9 (1.8-2.4) mg/dl Procalcitonin 0.05 (<0.10) ng/mL 12/25/19 Range/Units 13:44 WBC (3.98-10.04) K/mm3 RBC (3.98-5.22) M/mm3 Hgb (11.2-15.7) gm/dl Hct (34.1-44.9) % MCV (79.4-94.8) fl MCH (25.6-32.2) pg MCHC (32.2-35.5) g/dl RDW Std Deviation (36.4-46.3) fL Plt Count (182-369) K/mm3 MPV (9.4-12.3) fl Neut % (Auto) (34.0-71.1) % Lymph % (Auto) (19.3-51.7) % Will % (Auto) (4.7-12.5) % Eos % (Auto) (0.7-5.8) Baso % (Auto) (0.1-1.2) % Neut # (Auto) (1.56-6.13) K/mm3 Lymph # (Auto) (1.18-3.74) K/mm3 Will # (Auto) (0.24-0.36) K/mm3 Eos # (Auto) (0.04-0.36) K/mm3 Baso # (Auto) (0.01-0.08) K/mm3 Manual Slide Review Sodium 137 (136-145) mEq/L Potassium 5.6 H (3.5-5.1) mEq/L Chloride 99 (98-107) mEq/L Carbon Dioxide 36 H (21-32) mEq/L Anion Gap 7.6 (5-15) BUN 33 H (7-18) mg/dL Creatinine 0.9 (0.55-1.02) mg/dL Est Cr Clr Drug Dosing 63.55 mL/min Estimated GFR (MDRD) > 60 (>60) mL/min BUN/Creatinine Ratio 36.7 H (14-18) Glucose 110 H (74-106) mg/dL Calcium 7.9 L (8.5-10.1) mg/dL Phosphorus 2.2 L (2.6-4.7) mg/dL Magnesium 2.1 (1.8-2.4) mg/dl Procalcitonin (<0.10) ng/mL John Results Last 24 Hours: Microbiology 12/18/19 17:29 Aerobic Blood Culture - Final Blood - Venous NO GROWTH AFTER 7 DAYS Anaerobic Blood Culture - Final NO GROWTH AFTER 7 DAYS 12/18/19 17:19 Aerobic Blood Culture - Final Blood NO GROWTH AFTER 7 DAYS Anaerobic Blood Culture - Final NO GROWTH AFTER 7 DAYS Med Orders - Current: Current Medications Hydrocodone Bitart/Acetaminophen ([place] 325-5 Mg) 1 tab PO Q6H PRN PRN Reason: Pain Last Admin: 12/26/19 04:48 Dose: 1 tab Alprazolam (Xanax) 1 mg PO BID PRN PRN Reason: Anxiety Last Admin: 12/25/19 20:46 Dose: 1 mg Budesonide (Pulmicort) 0.5 mg NEB BIDRT [facility] Last Admin: 12/26/19 06:33 Dose: Not Given Diphenhydr/Magaldrate/Simeth/Lidoca (First-Mouthwash Blm Susp) 30 ml PO TID [facility] Last Admin: 12/25/19 20:46 Dose: 30 ml Docusate Sodium (Colace) 100 mg PO BID PRN PRN Reason: Constipation Last Admin: 12/21/19 08:31 Dose: 100 mg Enoxaparin Sodium (Lovenox) 40 mg SUBCUT DAILY [facility] Last Admin: 12/25/19 08:43 Dose: 40 mg Guaifenesin (Mucinex) 600 mg PO TID [facility] Last Admin: 12/25/19 20:46 Dose: 600 mg Hydralazine HCl (Apresoline) 10 mg IVPUSH Q2H PRN PRN Reason: Hypertension Last Admin: 12/18/19 16:16 Dose: 10 mg Hydrochlorothiazide (Hydrochlorothiazide) 25 mg PO DAILY [facility] Ipratropium [place] (Atrovent) 0.5 mg NEB Q8HRRT [facility] Last Admin: 12/26/19 06:33 Dose: Not Given Ketorolac Tromethamine (Toradol) 15 mg IVPUSH Q6H PRN PRN Reason: Pain (moderate 4-6) Last Admin: 12/25/19 20:47 Dose: 15 mg Magnesium Oxide (Magnesium Oxide) 400 mg PO DAILY [facility] Last Admin: 12/25/19 08:43 Dose: 400 mg Methylprednisolone (Medrol) 24 mg PO ONETIME ONE Stop: 12/26/19 09:01 Methylprednisolone (Medrol) 20 mg PO ONETIME ONE Stop: 12/27/19 09:01 Methylprednisolone (Medrol) 16 mg PO ONETIME ONE Stop: 12/28/19 09:01 Methylprednisolone (Medrol) 12 mg PO ONETIME ONE Stop: 12/29/19 09:01 Methylprednisolone (Medrol) 8 mg PO ONETIME ONE Stop: 12/30/19 09:01 Methylprednisolone (Medrol) 4 mg PO ONETIME ONE Stop: 12/31/19 09:01 Metoprolol Tartrate (Lopressor) 50 mg PO BID [facility] Last Admin: 12/25/19 20:45 Dose: 50 mg Mirtazapine (Remeron) 30 mg PO BEDTIME [facility] Last Admin: 12/25/19 20:46 Dose: 30 mg Morphine Sulfate (Morphine) 1 mg IVPUSH ONETIME PRN PRN Reason: Pain Nystatin (Nystatin Oral Syringe) 500,000 unit PO QID [facility] Last Admin: 12/25/19 20:46 Dose: 500,000 unit Ondansetron HCl (Zofran Odt) 4 mg PO Q6H PRN PRN Reason: nausea, able to take PO Ondansetron HCl (Zofran) 4 mg IV Q6H PRN PRN Reason: Nausea/Vomiting Senna (Senna) 8.6 mg PO BID [facility] Last Admin: 12/25/19 20:48 Dose: Not Given Trimethoprim/Sulfamethoxazole (Septra Ds) 1 tab PO BID [facility] Last Admin: 12/25/19 20:45 Dose: 1 tab Trolamine Salicylate (Aspercreme 10%) 0 gm TOP Q4HR PRN PRN Reason: Pain Discontinued Medications Acetaminophen/Codeine Phosphate (Tylenol With Codeine No.3 300mg/30mg) 1 tab PO Q6H PRN PRN Reason: Pain (severe 7-10) Last Admin: 12/18/19 14:13 Dose: 1 tab Azithromycin (Zithromax) 500 mg PO BEDTIME [facility] Stop: 12/18/19 21:01 Last Admin: 12/18/19 21:05 Dose: 500 mg Calcium Gluconate (Calcium Gluconate) 1 gm IVPUSH ONETIME ONE Stop: 12/25/19 18:18 Last Admin: 12/25/19 19:21 Dose: 1 gm Dextrose/Water (Dextrose 50% In Water) 50 ml IVPUSH ONETIME ONE Stop: 12/25/19 18:41 Last Admin: 12/25/19 19:38 Dose: 50 ml Etomidate (Amidate) 40 mg IVPUSH .STK-MED ONE Stop: 12/14/19 23:41 Haloperidol Lactate (Haldol) 5 mg IVPUSH ONETIME ONE Stop: 12/17/19 09:01 Last Admin: 12/17/19 09:11 Dose: 5 mg Heparin Sodium (Porcine) (Heparin Lock Flush 100 Units/Ml) Confirm Administered Dose 500 units .ROUTE .STK-MED ONE Stop: 12/17/19 18:27 Last Admin: 12/17/19 20:01 Dose: Not Given Hydromorphone HCl (Dilaudid) 0.25 mg IVPUSH ONETIME ONE Stop: 12/14/19 21:24 Last Admin: 12/14/19 21:43 Dose: 0.25 mg Sodium Chloride (Normal Saline) 1,000 mls @ 150 mls/hr IV ASDIRECTED [facility] Last Infusion: 12/16/19 09:23 Dose: 250 mls/hr Azithromycin 500 mg/ Sodium (Chloride) 250 mls @ 250 mls/hr IV Q24H [facility] Stop: 12/18/19 23:30 Last Admin: 12/17/19 21:16 Dose: 250 mls/hr Ceftriaxone Sodium 2 gm/ (Sodium Chloride) 100 mls @ 200 mls/hr IV Q24H [facility] Last Admin: 12/14/19 23:32 Dose: 200 mls/hr Propofol (Diprivan 100 Ml) Confirm Administered Dose 100 mls @ as directed .ROUTE .STK-MED ONE Stop: 12/15/19 00:02 Last Admin: 12/15/19 00:23 Dose: Not Given Propofol (Diprivan 100 Ml) 100 mls @ 1.463 mls/hr IV TITRATE [facility]; Protocol Last Admin: 12/16/19 02:10 Dose: 32 mcg/kg/min, 9.362 mls/hr Norepinephrine Bitartrate 4 mg (/ Dextrose/Water) 250 mls @ 7.5 mls/hr IV TITRATE [facility]; Protocol Ceftriaxone Sodium 2 gm/ (Sodium Chloride) 100 mls @ 200 mls/hr IV Q24H [facility] Last Admin: 12/15/19 22:38 Dose: 200 mls/hr Magnesium Sulfate 2 gm/ Premix 50 mls @ 25 mls/hr IV ONETIME ONE Stop: 12/15/19 09:59 Last Admin: 12/15/19 08:03 Dose: 25 mls/hr Magnesium Sulfate (Magnesium Sulfate In Water Premix) Confirm Administered Dose 50 mls @ as directed .ROUTE .[facility] ONE Stop: 12/15/19 07:56 Last Admin: 12/15/19 08:02 Dose: Not Given Midazolam HCl 100 mg/ Sodium (Chloride) 100 mls @ 0.5 mls/hr IV ASDIRECTED [facility] Last Infusion: 12/15/19 17:38 Dose: 5 mls/hr Midazolam HCl 50 mg/ Sodium (Chloride) 50 mls @ 2.44 mls/hr IV TITRATE [facility]; Protocol Lactated Ringer's (Ringers, Lactated) 1,000 mls @ 250 mls/hr IV ASDIRECTED [facility] Last Infusion: 12/16/19 20:44 Dose: 150 mls/hr Lactated Ringer's (Ringers, Lactated) 1,000 mls @ 150 mls/hr IV ASDIRECTED [facility] Last Admin: 12/17/19 08:35 Dose: 150 mls/hr Sodium Chloride (Normal Saline) Confirm Administered Dose 1,000 mls @ as directed .ROUTE .[facility] ONE Stop: 12/17/19 17:24 Last Admin: 12/17/19 20:01 Dose: Not Given Magnesium Sulfate 4 gm/ Premix 100 mls @ 25 mls/hr IV ONETIME ONE Stop: 12/17/19 23:59 Last Admin: 12/17/19 20:20 Dose: 25 mls/hr Potassium Phosphate 30 mmole/ (Sodium Chloride) 510 mls @ 102 mls/hr IV Q5H [facility] Stop: 12/19/19 21:59 Last Admin: 12/19/19 17:14 Dose: Not Given Magnesium Sulfate 2 gm/ Premix 50 mls @ 25 mls/hr IV Q1H [facility] Stop: 12/24/19 12:44 Last Admin: 12/24/19 12:07 Dose: 25 mls/hr Sodium Phosphate 30 mmole/ (Sodium Chloride) 260 mls @ 86.667 mls/hr IV ONETIME ONE Stop: 12/24/19 12:01 Last Admin: 12/24/19 14:03 Dose: 86.667 mls/hr Sodium Phosphate 30 mmole/ (Sodium Chloride) 260 mls @ 130 mls/hr IV Q2H [facility] Stop: 12/25/19 18:59 Last Admin: 12/25/19 19:19 Dose: 130 mls/hr Insulin Human Regular (Humulin R) 10 unit IV ONETIME ONE Stop: 12/25/19 18:20 Last Admin: 12/25/19 19:36 Dose: 10 unit Ketorolac Tromethamine (Toradol) 15 mg IM Q6H PRN PRN Reason: Pain (moderate 4-6) Ketorolac Tromethamine (Toradol) 15 mg IM Q6H PRN PRN Reason: Pain (moderate 4-6) Lorazepam (Ativan) 1 mg IVPUSH ONETIME ONE Stop: 12/20/19 10:38 Last Admin: 12/20/19 11:00 Dose: 1 mg Methylprednisolone Sodium Succinate (Solu-Medrol) 125 mg IVPUSH Q12H [facility] Last Admin: 12/21/19 10:40 Dose: 125 mg Methylprednisolone Sodium Succinate (Solu-Medrol) 80 mg IVPUSH Q12H [facility] Last Admin: 12/22/19 09:42 Dose: 80 mg Methylprednisolone Sodium Succinate (Solu-Medrol) 40 mg IVPUSH Q12H [facility] Last Admin: 12/25/19 08:44 Dose: 40 mg Metoprolol Tartrate (Lopressor) 2.5 mg IVPUSH ONETIME ONE Stop: 12/15/19 06:06 Last Admin: 12/15/19 06:13 Dose: 2.5 mg Metoprolol Tartrate (Lopressor) 2.5 mg IVPUSH Q12HR [facility] Last Admin: 12/18/19 07:59 Dose: 2.5 mg Metoprolol Tartrate (Lopressor) 10 mg IVPUSH ONETIME ONE Stop: 12/18/19 17:21 Last Admin: 12/18/19 17:00 Dose: 10 mg Morphine Sulfate (Morphine) 1 mg IVPUSH Q4H PRN PRN Reason: Pain (severe 7-10) Stop: 12/15/19 22:06 Morphine Sulfate (Morphine) 1 mg IVPUSH ONETIME ONE Stop: 12/20/19 09:24 Last Admin: 12/20/19 09:35 Dose: 1 mg Morphine Sulfate (Morphine) 1 mg IVPUSH ONETIME ONE Stop: 12/20/19 11:01 Last Admin: 12/20/19 11:30 Dose: 1 mg Morphine Sulfate (Morphine) 1 mg IVPUSH Q8H PRN PRN Reason: Pain (severe 7-10) Last Admin: 12/22/19 14:41 Dose: 1 mg Morphine Sulfate (Morphine) 1 mg IVPUSH ONETIME PRN PRN Reason: Pain Nystatin (Nystatin Oral Syringe) 5 unit PO QID [facility] Last Admin: 12/20/19 20:31 Dose: 5 unit Ondansetron HCl (Zofran) 4 mg IVPUSH ONETIME ONE Stop: 12/14/19 21:23 Last Admin: 12/14/19 21:43 Dose: 4 mg Pantoprazole Sodium (Protonix Iv) 40 mg IVPUSH DAILY@0600 [facility] Last Admin: 12/18/19 06:13 Dose: 40 mg Potassium Chloride (Klor-Con M20) 40 meq PO BID [facility] Stop: 12/19/19 21:01 Last Admin: 12/19/19 20:19 Dose: 40 meq Quetiapine Fumarate (Seroquel) 100 mg PO ONETIME ONE Stop: 12/17/19 21:01 Last Admin: 12/17/19 20:21 Dose: 100 mg Succinylcholine Chloride (Quelicin) 200 mg .ROUTE .STK-MED ONE Stop: 12/14/19 23:41 Triamterene/HCTZ (Dyazide 25-37.5 Mg) 1 each PO DAILY [facility] Last Admin: 12/25/19 08:44 Dose: 1 each - Exam Quality Assessment: Supplemental Oxygen (4L ), DVT Prophylaxis General: Alert, Oriented, Cooperative, No Acute Distress HEENT: Pupils Equal, Pupils Reactive, Mucous Membr. Moist/[place] Neck: Supple, Trachea Midline Lungs: Decreased Breath Sounds, Crackles, Wheezing Cardiovascular: Regular Rate, Regular Rhythm GI/Abdominal Exam: Normal Bowel Sounds, Soft, Non-Tender, No Distention (Female) Exam: Deferred Back Exam: Normal Inspection, Full Range of Motion Extremities: Normal Inspection, Normal Range of Motion, Pedal Edema (mild ) Skin: Warm, Dry, Intact Neurological: No New Focal Deficit Psy/Mental Status: Alert, Normal Affect, Normal Mood Sepsis Event Note - Evaluation Sepsis Screening Result: No Definite Risk - Focused Exam Vital Signs: Vital Signs Temp Pulse Pulse Resp BP BP Pulse Ox 03/17/20 03:00 97.9 F 90 20 132/76 90 L 12/25/19 20:45 88 117/58 L Date Exam was Performed: 12/26/19 Time Exam was Performed: 12:57 - Problem List & Annotations (1) Acute delirium SNOMED Code(s): 9260358, 1356594 Code(s): R41.0 - DISORIENTATION, UNSPECIFIED Status: Resolved Current Visit: Yes (2) Chronic respiratory acidosis SNOMED Code(s): 4045443 Code(s): E87.2 - ACIDOSIS Status: Acute Current Visit: Yes (3) Elevated troponin SNOMED Code(s): 398342745, 578022264, 347394065 Code(s): R79.89 - OTHER SPECIFIED ABNORMAL FINDINGS OF BLOOD CHEMISTRY Status: Acute Current Visit: Yes (4) End stage COPD SNOMED Code(s): 635816493 Code(s): J44.9 - CHRONIC OBSTRUCTIVE PULMONARY DISEASE, UNSPECIFIED Status : Acute Current Visit: Yes (5) Hypoalbuminemia SNOMED Code(s): 379850161 Code(s): E88.09 - OTH DISORDERS OF PLASMA-PROTEIN METABOLISM, NEC Status: Acute Current Visit: Yes (6) Hypochloremia SNOMED Code(s): 61365783 Code(s): E87.8 - OTH DISORDERS OF ELECTROLYTE AND FLUID BALANCE, NEC Status : Acute Current Visit: Yes (7) Hypophosphatemia SNOMED Code(s): 1507509 Code(s): E83.39 - OTHER DISORDERS OF PHOSPHORUS METABOLISM Status: Resolved Current Visit: Yes (8) Leukocytosis SNOMED Code(s): 027785141, 396532774 Code(s): D72.829 - ELEVATED WHITE BLOOD CELL COUNT, UNSPECIFIED Status: Acute Current Visit: Yes (9) Nocardial pneumonia SNOMED Code(s): 259645706 Code(s): A43.0 - PULMONARY NOCARDIOSIS Status: Acute Current Visit: Yes (10) Opioid dependence SNOMED Code(s): 75393969 Code(s): F11.20 - OPIOID DEPENDENCE, UNCOMPLICATED Status: Acute Current Visit: Yes (11) Pneumonia SNOMED Code(s): 593359753 Code(s): J18.9 - PNEUMONIA, UNSPECIFIED ORGANISM Status: Acute Current Visit: Yes Qualifiers: Pneumonia type: due to unspecified organism Laterality: right Lung location: lower lobe of lung Qualified Code(s): J18.9 - Pneumonia, unspecified organism (12) Pulmonary cachexia due to COPD SNOMED Code(s): 571824405 Code(s): J44.9 - CHRONIC OBSTRUCTIVE PULMONARY DISEASE, UNSPECIFIED; R64 - [place]HEXIA Status: Acute Current Visit: Yes (13) RSV infection SNOMED Code(s): 51923642 Code(s): B97.4 - RESPIRATORY SYNCYTIAL VIRUS CAUSING DISEASES CLASSD ELSWHR Status: Acute Current Visit: Yes (14) Respiratory failure with hypoxia and hypercapnia SNOMED Code(s): 80527870 Code(s): J96.91 - RESPIRATORY FAILURE, UNSPECIFIED WITH HYPOXIA; J96.92 - RESPIRATORY FAILURE, UNSPECIFIED WITH HYPERCAPNIA Status: Acute Current Visit: Yes Qualifiers: Chronicity: acute on chronic Qualified Code(s): J96.21 - Acute and chronic respiratory failure with hypoxia; J96.22 - Acute and chronic respiratory failure with hypercapnia (15) Severe malnutrition SNOMED Code(s): 47547322 Code(s): E43 - UNSPECIFIED SEVERE PROTEIN-CALORIE MALNUTRITION Status: Acute Current Visit: Yes (16) Sinus tachycardia seen on environmental monitoring technician SNOMED Code(s): 787565769 Code(s): R00.0 - TACHYCARDIA, UNSPECIFIED Status: Acute Current Visit: Yes (17) Thrombocytosis SNOMED Code(s): 1524091 Code(s): D47.3 - ESSENTIAL (HEMORRHAGIC) THROMBOCYTHEMIA Status: Acute Current Visit: Yes (18) COPD exacerbation SNOMED Code(s): 608459389 Code(s): J44.1 - CHRONIC OBSTRUCTIVE PULMONARY DISEASE W (ACUTE) EXACERBATION Status: Acute Current Visit: No (19) Chest wall pain, chronic SNOMED Code(s): 768090122 Code(s): R07.89 - OTHER CHEST PAIN; G89.29 - OTHER CHRONIC PAIN Status: Acute Current Visit: No (20) Dental caries extending into dentin Status: Acute Current Visit: No (21) Headache SNOMED Code(s): 88830830 Code(s): R51 - HEADACHE Status: Acute Current Visit: No Qualifiers: Headache type: other vascular headache Qualified Code(s): G44.1 - Vascular headache, not elsewhere classified (22) Hypokalemia SNOMED Code(s): 19883728 Code(s): E87.6 - HYPOKALEMIA Status: Resolved Current Visit: No (23) Hypomagnesemia SNOMED Code(s): 146336198 Code(s): E83.42 - HYPOMAGNESEMIA Status: Acute Priority: High Current Visit: No (24) Mycoplasma pneumonia SNOMED Code(s): 30910871 Code(s): J15.7 - PNEUMONIA DUE TO MYCOPLASMA PNEUMONIAE Status: Resolved Priority: High Current Visit: No Qualifiers: Laterality: unspecified laterality Lung location: unspecified part of lung Qualified Code(s): J15.7 - Pneumonia due to Mycoplasma pneumoniae (25) Oral candidiasis SNOMED Code(s): 01618781 Code(s): B37.0 - CANDIDAL STOMATITIS Status: Acute Current Visit: No (26) Anxiety SNOMED Code(s): 11685628 Code(s): F41.9 - ANXIETY DISORDER, UNSPECIFIED Status: Chronic Priority: Medium Current Visit: No (27) HTN (hypertension) SNOMED Code(s): 19865967 Code(s): I10 - ESSENTIAL (PRIMARY) HYPERTENSION Status: Chronic Priority : Low Current Visit: No Qualifiers: Hypertension type: unspecified Qualified Code(s): I10 - Essential (primary ) hypertension (28) Hypoxia SNOMED Code(s): 003921063 Code(s): R09.02 - HYPOXEMIA Status: Chronic Priority: High Current Visit: No (29) Severe anxiety SNOMED Code(s): 18804854 Code(s): F41.9 - ANXIETY DISORDER, UNSPECIFIED Status: Chronic Priority: Medium Current Visit: No - Problem List Review Problem List Initiated/Reviewed/Updated: Yes - My Orders Last 24 Hours: My Active Orders 12/25/19 14:46 EKG 12 Lead [EKG Documentation Completion] [RC] ROUTINE 12/26/19 07:10 BASIC METABOLIC PANEL,BMP [CHEM] AM MAGNESIUM [CHEM] AM PHOSPHORUS [CHEM] AM 12/26/19 09:00 hydroCHLOROthiazide 25 mg PO DAILY - Plan Plan:: ASSESSMENT BY DAY Day 1 - Patient came in to ED for worsening shortness of breath--> placed on BiPAP--> admitted to ICU on BIPAP - Mental status declined and PCO2>100 + pH 7.1--> Intubated - Sedated with Versed and propofol - Tachycardic, requires IV metoprolol - Started on Rocephin, azithromycin and Tamiflu Day 2 - Intubated - Significant improvement in WBC - Sedation vacation --> patient got agitated - Failed SBT Day3 - Procalcitonin elevated - Respiratory panel + for RSV and mycoplasma - Discontinued Tamiflu and Rocephin - Kept O2 sat > 95% with FiO2 of 45% - Urine output decreased significantly to 540/24 hrs--> responded to fluid bolus Day 4 - Extubated - Transitioned to BiPAP - Attempted hi-flow but patient is a mouth breather and SatO2 < low 80's - Minimal improvement in UO--> Lasix - Significant hallucinations overnight with delirium, no physical agitation Day 5 - UO increased with single dose of Lasix - Completing azithromycin day 5 - Very limited movement due to drop in O2 saturation with minimal movement including leaning forward and just moving head or hands - Unable to perform ADLs due to shortness of breath Day 6 - Advance diet to regular - Dietary giving high protein custard and 4oz of ensure TID - PT recommending home health with increased services - Tolerated CPAP overnight well Day 7 - Procalcitonin trending down - No BM yet - Eating better - Passive range of motion with PT - Used BiPAP all night - Reduce Solumedrol dose - Oral candidiasis with concern for esophageal, will consult surgery to evaluate EGD feasibility - Lactulose q6h until BM Day 8 - Slept OK - BM today - Decreased Solumedrol dose - PT recommending front wheel walker, transfer tub, wheelchair - Start Nystatin - Anesthesia recommended to defer EGD for after patient has been discharged from this hospitalization - OK to downgrade to medical floor Day 9 - Sputum culture confirmed with Nocardia - Started Bactrim - Clinically improved and stable - NC at 4L throughout - Decrease Solumedrol dose Day 10 - Restart home medications - Slept through the night - Exhibiting drug seeking behavior with morphine - Discussed importance of discontinuing opioids for pain control - PRN Toradol for pain Day 11 - Reports she feels slightly worse today - Last BM yesterday - Phosphorous low - supplement - Start Medrol dose pack - Hyperkalemia - stop Dyazide, check EKG - Hypophosphatemia - supplement - Reports daughter will be coming to take care of her starting this Wednesday. - Sanderson caterer removed Day 12 - Reports feels about the same as yesterday - Requesting hospital bed for home - Magnesium low - supplement - Potassium back WNL - Eating ok - Stop Toradol - Add Diflucan, Stop nystatin - Remove tele PLAN BY SYSTEMS Neurologic: Monitor mental status Avoid interactions during the night Home Ativan Respiratory: NC throughout the day Atrovent q8h Budesonide q12 PO Medrol dose pack Guaifenesin TID Cardiovascular: Metoprolol PO, scheduled HCTZ home dose Trend BP and start medication if required PRN hydralazine for BP > 180/100 Renal and Electrolytes: Discontinued sanderson catheter Monitor urine output GI and hepatology: Regular diet 4oz Ensure TID Scheduled Senna Mirtazapine Fluconazole for yeast in UC Endocrine and Metabolism: Monitor glucose on daily labs Infectious Disease Continue Nystatin swallow Continue Bactrim, day 5 Monitor temp and panculture if greater than 99.2 Procalcitonin 0.05 Start fluconazole Hematology, Oncology and Immune system: No signs of active bleeding Goal Hb >7 PROPHYLAXIS DVT- Lovenox GI- not indicated CODE STATUS: FULL CODE DISPOSITION: Patient will remain hospitalized, on medical floor for continued PT/OT and RT. 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 Length of stay greater than 96 hours due to suboptimal response to treatment Likely discharge 12/27/19 Recommend ID follow-up after discharge Belinda is requesting a home hospital bed after discharge. She reports she has tried using pillows and a wedge but is unable to get a comfortable height. She has tried to sleep in the chair but is unable. She has pedal edema so leg elevation is recommended for her. She is well known to this service and has been hospitalized many times in the past for lung related issues. 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 She reports she spends a majority of her time in bed, essentially getting up only to utilize the restroom. She reports she spends over 75% of her time in bed. She is also requesting a wheelchair due to difficulty with ambulating and getting around her house. She becomes severely dyspneic with activity. This is a progressive disease and she has a very grim overall prognosis.
[2019-12-26] MEDS: Sulfamethoxazole/Trimethoprim 800-160 MG Tab PO SCH ×2 (08:34→21:02)
[2019-12-26] MEDS: guaiFENesin 600 MG Tab.ER PO SCH ×3 (08:34→21:02)
[2019-12-26] MEDS: Magnesium Oxide 400 MG Tab PO SCH (08:35)
[2019-12-26] MEDS: Metoprolol Tartrate 50 MG Tab PO SCH ×2 (08:35→21:03)
[2019-12-26] MEDS: Hydrochlorothiazide 25 MG Tab PO SCH (08:36)
[2019-12-26] MEDS: Nystatin Susp 100,000 Unit/ML 5 ML Oral Syringe PO SCH (08:36)
[2019-12-26] MEDS: Enoxaparin 40 MG/0.4 ML Syringe SUBCUT SCH (08:36)
[2019-12-26] MEDS: Diphenhydramine/Lidocaine/MagAl/Simethicone 119 ML Bottle PO SCH ×3 (08:37→21:04)
[2019-12-26] MEDS: ALPRAZolam 1 MG Tab PO PRN ×2 (08:48→21:08)
[2019-12-26] MEDS ORDERED: Magnesium Sulfate/Water 2 GM in Premix Bag 1 BAG IV ONE (09:00)
[2019-12-26] MEDS ORDERED: Budesonide 0.5 MG/2 ML Neb Susp NEB PRN (10:44)
[2019-12-26] MEDS: Sennosides 8.6 MG Tab PO SCH ×2 (11:07→21:04)
[2019-12-26] MEDS ORDERED: Fluconazole 100 MG Tab PO ONE (12:00)
[2019-12-26] MEDS: Mirtazapine 30 MG Tab PO SCH (21:04)
[2019-12-27] MEDS: Acetaminophen/HYDROcodone 325-5 MG Tab PO PRN ×4 (01:02→23:03)
[2019-12-27] MEDS: Metoprolol Tartrate 50 MG Tab PO SCH ×2 (08:20→21:10)
[2019-12-27] MEDS: guaiFENesin 600 MG Tab.ER PO SCH ×3 (08:20→21:08)
[2019-12-27] MEDS: Magnesium Oxide 400 MG Tab PO SCH (08:21)
[2019-12-27] MEDS: Sulfamethoxazole/Trimethoprim 800-160 MG Tab PO SCH ×2 (08:21→21:08)
[2019-12-27] MEDS: ALPRAZolam 1 MG Tab PO PRN ×2 (08:21→21:09)
[2019-12-27] MEDS: Enoxaparin 40 MG/0.4 ML Syringe SUBCUT SCH (08:22)
[2019-12-27] MEDS: Diphenhydramine/Lidocaine/MagAl/Simethicone 119 ML Bottle PO SCH ×3 (08:22→21:08)
[2019-12-27] MEDS: Hydrochlorothiazide 25 MG Tab PO SCH (08:22)
[2019-12-27] MEDS: Sennosides 8.6 MG Tab PO SCH ×2 (08:23→21:11)
[2019-12-27] MEDS: Fluconazole 100 MG Tab PO SCH (11:51)
--- NOTE | 2019-12-27 12:13 | PCM.PN ---
- General Info Date of Service: 12/27/19 Admission Dx/Problem (Free Text): Admission Diagnosis/Problem Admission Diagnosis/Problem Hypoxemia requiring supplemental oxygen Subjective Update: BM today On 5L O2 last night Has been refusing to wear CPAP Feels worse today Functional Status: Reports: Pain Controlled, Tolerating Diet, Ambulating, Urinating (more since lasix ), New Symptoms, Incentive Spirometry - Review of Systems General: Reports: Weakness, Fatigue, Malaise. Denies: Fever, Chills HEENT: Reports: No Symptoms. Denies: Headaches, Sore Throat Pulmonary: Reports: Shortness of Breath, Cough, Wheezing. Denies: Sputum Cardiovascular: Reports: Dyspnea on Exertion, Edema. Denies: Chest Pain, Palpitations Gastrointestinal: Reports: No Symptoms. Denies: Abdominal Pain, Constipation, Diarrhea, Nausea, Vomiting Genitourinary: Reports: No Symptoms. Denies: Pain Musculoskeletal: Reports: Leg Pain Skin: Reports: No Symptoms. Denies: Cyanosis Neurological: Reports: No Symptoms, Difficulty Walking (2/2 dyspnea), Weakness. Denies: Confusion Psychiatric: Reports: No Symptoms - Patient Data Vitals - Most Recent: Last Vital Signs Temp 97.9 F 12/27/19 03:00 Pulse 79 12/27/19 08:20 Resp 20 12/27/19 03:00 BP 112/73 12/27/19 08:20 Pulse Ox 95 12/27/19 09:08 Weight - Most Recent: 143 lb 1.6 oz I&O - Last 24 Hours: Intake & Output 12/26/19 12/27/19 12/27/19 22:59 06:59 14:59 Intake Total 890 760 240 Output Total 400 Balance 890 360 240 Lab Results Last 24 Hours: Laboratory Results - last 24 hr 12/27/19 12/27/19 12/27/19 Range/Units 05:35 05:35 08:50 Puncture Site Lt radial ABG pH 7.30 L (7.35-7.45) ABG pCO2 80.9 H* (35.0-45.0) mmHg ABG pO2 78.0 L (80.0-100.0) mmHg ABG HCO3 38.9 H (22.0-26.0) meq/L ABG O2 Saturation 93.5 L (96.0-97.0) % ABG Base Excess 10.5 H (-2-2.0) A-a Gradient 78 mmHg O2 Delivery Device Nasal cannula Oxygen Flow Rate 4.0 FiO2 36.00 (21.00-100.00) % Sodium 139 138 (136-145) mEq/L Potassium 4.7 4.7 (3.5-5.1) mEq/L Chloride 100 100 (98-107) mEq/L Carbon Dioxide 42 H* 37 H (21-32) mEq/L Anion Gap 1.7 L 5.7 (5-15) BUN 23 H 22 H (7-18) mg/dL Creatinine 0.7 0.7 (0.55-1.02) mg/dL Est Cr Clr Drug Dosing 81.71 81.71 mL/min Estimated GFR (MDRD) > 60 > 60 (>60) mL/min BUN/Creatinine Ratio 32.9 H 31.4 H (14-18) Glucose 108 H 109 H (74-106) mg/dL Calcium 7.9 L 8.0 L (8.5-10.1) mg/dL Phosphorus 2.3 L (2.6-4.7) mg/dL Magnesium 1.8 (1.8-2.4) mg/dl Total Bilirubin 0.1 L (0.2-1.0) mg/dL AST 19 (15-37) U/L ALT 46 (14-59) U/L Alkaline Phosphatase 65 (46-116) U/L Total Protein 5.3 L (6.4-8.2) g/dl Albumin 2.6 L (3.4-5.0) g/dl Globulin 2.7 gm/dL Albumin/Globulin Ratio 1.0 (1-2) Med Orders - Current: Current Medications Hydrocodone Bitart/Acetaminophen ([place] 325-5 Mg) 1 tab PO Q6H PRN PRN Reason: Pain Last Admin: 12/27/19 07:26 Dose: 1 tab Alprazolam (Xanax) 1 mg PO BID PRN PRN Reason: Anxiety Last Admin: 12/27/19 08:21 Dose: 1 mg Budesonide (Pulmicort) 0.5 mg NEB BIDRT PRN PRN Reason: Other Diphenhydr/Magaldrate/Simeth/Lidoca (First-Mouthwash Blm Susp) 30 ml PO TID SHAUN Last Admin: 12/27/19 08:22 Dose: 30 ml Docusate Sodium (Colace) 100 mg PO BID PRN PRN Reason: Constipation Last Admin: 12/21/19 08:31 Dose: 100 mg Enoxaparin Sodium (Lovenox) 40 mg SUBCUT DAILY [facility] Last Admin: 12/27/19 08:22 Dose: 40 mg Fluconazole (Diflucan) 100 mg PO Q24H [facility] Last Admin: 12/27/19 11:51 Dose: 100 mg Guaifenesin (Mucinex) 600 mg PO TID [facility] Last Admin: 12/27/19 08:20 Dose: 600 mg Hydralazine HCl (Apresoline) 10 mg IVPUSH Q2H PRN PRN Reason: Hypertension Last Admin: 12/18/19 16:16 Dose: 10 mg Hydrochlorothiazide (Hydrochlorothiazide) 25 mg PO DAILY [facility] Last Admin: 12/27/19 08:22 Dose: 25 mg Ipratropium [place] (Atrovent) 0.5 mg NEB Q8HRRT PRN PRN Reason: Other Magnesium Oxide (Magnesium Oxide) 400 mg PO DAILY [facility] Last Admin: 12/27/19 08:21 Dose: 400 mg Methylprednisolone (Medrol) 16 mg PO ONETIME ONE Stop: 12/28/19 09:01 Methylprednisolone (Medrol) 12 mg PO ONETIME ONE Stop: 12/29/19 09:01 Methylprednisolone (Medrol) 8 mg PO ONETIME ONE Stop: 12/30/19 09:01 Methylprednisolone (Medrol) 4 mg PO ONETIME ONE Stop: 12/31/19 09:01 Metoprolol Tartrate (Lopressor) 50 mg PO BID [facility] Last Admin: 12/27/19 08:20 Dose: 50 mg Mirtazapine (Remeron) 30 mg PO BEDTIME [facility] Last Admin: 12/26/19 21:04 Dose: 30 mg Morphine Sulfate (Morphine) 1 mg IVPUSH ONETIME PRN PRN Reason: Pain Ondansetron HCl (Zofran Odt) 4 mg PO Q6H PRN PRN Reason: nausea, able to take PO Ondansetron HCl (Zofran) 4 mg IV Q6H PRN PRN Reason: Nausea/Vomiting Senna (Senna) 8.6 mg PO BID [facility] Last Admin: 12/27/19 08:23 Dose: Not Given Trimethoprim/Sulfamethoxazole (Septra Ds) 1 tab PO BID [facility] Last Admin: 12/27/19 08:21 Dose: 1 tab Trolamine Salicylate (Aspercreme 10%) 0 gm TOP Q4HR PRN PRN Reason: Pain Discontinued Medications Acetaminophen/Codeine Phosphate (Tylenol With Codeine No.3 300mg/30mg) 1 tab PO Q6H PRN PRN Reason: Pain (severe 7-10) Last Admin: 12/18/19 14:13 Dose: 1 tab Azithromycin (Zithromax) 500 mg PO BEDTIME SHAUN Stop: 12/18/19 21:01 Last Admin: 12/18/19 21:05 Dose: 500 mg Budesonide (Pulmicort) 0.5 mg NEB BIDRT [facility] Last Admin: 12/26/19 06:33 Dose: Not Given Calcium Gluconate (Calcium Gluconate) 1 gm IVPUSH ONETIME ONE Stop: 12/25/19 18:18 Last Admin: 12/25/19 19:21 Dose: 1 gm Dextrose/Water (Dextrose 50% In Water) 50 ml IVPUSH ONETIME ONE Stop: 12/25/19 18:41 Last Admin: 12/25/19 19:38 Dose: 50 ml Etomidate (Amidate) 40 mg IVPUSH .STK-MED ONE Stop: 12/14/19 23:41 Fluconazole (Diflucan) 200 mg PO ONETIME ONE Stop: 12/26/19 12:01 Last Admin: 12/26/19 11:57 Dose: 200 mg Haloperidol Lactate (Haldol) 5 mg IVPUSH ONETIME ONE Stop: 12/17/19 09:01 Last Admin: 12/17/19 09:11 Dose: 5 mg Heparin Sodium (Porcine) (Heparin Lock Flush 100 Units/Ml) Confirm Administered Dose 500 units .ROUTE .STK-MED ONE Stop: 12/17/19 18:27 Last Admin: 12/17/19 20:01 Dose: Not Given Hydromorphone HCl (Dilaudid) 0.25 mg IVPUSH ONETIME ONE Stop: 12/14/19 21:24 Last Admin: 12/14/19 21:43 Dose: 0.25 mg Sodium Chloride (Normal Saline) 1,000 mls @ 150 mls/hr IV ASDIRECTED [facility] Last Infusion: 12/16/19 09:23 Dose: 250 mls/hr Azithromycin 500 mg/ Sodium (Chloride) 250 mls @ 250 mls/hr IV Q24H [facility] Stop: 12/18/19 23:30 Last Admin: 12/17/19 21:16 Dose: 250 mls/hr Ceftriaxone Sodium 2 gm/ (Sodium Chloride) 100 mls @ 200 mls/hr IV Q24H [facility] Last Admin: 12/14/19 23:32 Dose: 200 mls/hr Propofol (Diprivan 100 Ml) Confirm Administered Dose 100 mls @ as directed .ROUTE .[facility]-MED ONE Stop: 12/15/19 00:02 Last Admin: 12/15/19 00:23 Dose: Not Given Propofol (Diprivan 100 Ml) 100 mls @ 1.463 mls/hr IV TITRATE SHAUN; Protocol Last Admin: 12/16/19 02:10 Dose: 32 mcg/kg/min, 9.362 mls/hr Norepinephrine Bitartrate 4 mg (/ Dextrose/Water) 250 mls @ 7.5 mls/hr IV TITRATE SHAUN; Protocol Ceftriaxone Sodium 2 gm/ (Sodium Chloride) 100 mls @ 200 mls/hr IV Q24H [facility]UN Last Admin: 12/15/19 22:38 Dose: 200 mls/hr Magnesium Sulfate 2 gm/ Premix 50 mls @ 25 mls/hr IV ONETIME ONE Stop: 12/15/19 09:59 Last Admin: 12/15/19 08:03 Dose: 25 mls/hr Magnesium Sulfate (Magnesium Sulfate In Water Premix) Confirm Administered Dose 50 mls @ as directed .ROUTE .[facility]-MED ONE Stop: 12/15/19 07:56 Last Admin: 12/15/19 08:02 Dose: Not Given Midazolam HCl 100 mg/ Sodium (Chloride) 100 mls @ 0.5 mls/hr IV ASDIRECTED [facility] Last Infusion: 12/15/19 17:38 Dose: 5 mls/hr Midazolam HCl 50 mg/ Sodium (Chloride) 50 mls @ 2.44 mls/hr IV TITRATE SHAUN; Protocol Lactated Ringer's (Ringers, Lactated) 1,000 mls @ 250 mls/hr IV ASDIRECTED [facility] Last Infusion: 12/16/19 20:44 Dose: 150 mls/hr Lactated Ringer's (Ringers, Lactated) 1,000 mls @ 150 mls/hr IV ASDIRECTED [facility] Last Admin: 12/17/19 08:35 Dose: 150 mls/hr Sodium Chloride (Normal Saline) Confirm Administered Dose 1,000 mls @ as directed .ROUTE .STK-MED ONE Stop: 12/17/19 17:24 Last Admin: 12/17/19 20:01 Dose: Not Given Magnesium Sulfate 4 gm/ Premix 100 mls @ 25 mls/hr IV ONETIME ONE Stop: 12/17/19 23:59 Last Admin: 12/17/19 20:20 Dose: 25 mls/hr Potassium Phosphate 30 mmole/ (Sodium Chloride) 510 mls @ 102 mls/hr IV Q5H [facility] Stop: 12/19/19 21:59 Last Admin: 12/19/19 17:14 Dose: Not Given Magnesium Sulfate 2 gm/ Premix 50 mls @ 25 mls/hr IV Q1H [facility] Stop: 12/24/19 12:44 Last Admin: 12/24/19 12:07 Dose: 25 mls/hr Sodium Phosphate 30 mmole/ (Sodium Chloride) 260 mls @ 86.667 mls/hr IV ONETIME ONE Stop: 12/24/19 12:01 Last Admin: 12/24/19 14:03 Dose: 86.667 mls/hr Sodium Phosphate 30 mmole/ (Sodium Chloride) 260 mls @ 130 mls/hr IV Q2H [facility] Stop: 12/25/19 18:59 Last Admin: 12/25/19 19:19 Dose: 130 mls/hr Magnesium Sulfate 2 gm/ Premix 50 mls @ 25 mls/hr IV ONETIME ONE Stop: 12/26/19 10:59 Last Admin: 12/26/19 08:49 Dose: 25 mls/hr Insulin Human Regular (Humulin R) 10 unit IV ONETIME ONE Stop: 12/25/19 18:20 Last Admin: 12/25/19 19:36 Dose: 10 unit Ipratropium [place] (Atrovent) 0.5 mg NEB Q8HRRT [facility] Last Admin: 12/26/19 06:33 Dose: Not Given Ketorolac Tromethamine (Toradol) 15 mg IM Q6H PRN PRN Reason: Pain (moderate 4-6) Ketorolac Tromethamine (Toradol) 15 mg IM Q6H PRN PRN Reason: Pain (moderate 4-6) Ketorolac Tromethamine (Toradol) 15 mg IVPUSH Q6H PRN PRN Reason: Pain (moderate 4-6) Last Admin: 12/25/19 20:47 Dose: 15 mg Lorazepam (Ativan) 1 mg IVPUSH ONETIME ONE Stop: 12/20/19 10:38 Last Admin: 12/20/19 11:00 Dose: 1 mg Methylprednisolone (Medrol) 24 mg PO ONETIME ONE Stop: 12/26/19 09:01 Last Admin: 12/26/19 08:36 Dose: 24 mg Methylprednisolone (Medrol) 20 mg PO ONETIME ONE Stop: 12/27/19 09:01 Last Admin: 12/27/19 08:22 Dose: 20 mg Methylprednisolone Sodium Succinate (Solu-Medrol) 125 mg IVPUSH Q12H [facility] Last Admin: 12/21/19 10:40 Dose: 125 mg Methylprednisolone Sodium Succinate (Solu-Medrol) 80 mg IVPUSH Q12H [facility] Last Admin: 12/22/19 09:42 Dose: 80 mg Methylprednisolone Sodium Succinate (Solu-Medrol) 40 mg IVPUSH Q12H [facility] Last Admin: 12/25/19 08:44 Dose: 40 mg Metoprolol Tartrate (Lopressor) 2.5 mg IVPUSH ONETIME ONE Stop: 12/15/19 06:06 Last Admin: 12/15/19 06:13 Dose: 2.5 mg Metoprolol Tartrate (Lopressor) 2.5 mg IVPUSH Q12HR [facility] Last Admin: 12/18/19 07:59 Dose: 2.5 mg Metoprolol Tartrate (Lopressor) 10 mg IVPUSH ONETIME ONE Stop: 12/18/19 17:21 Last Admin: 12/18/19 17:00 Dose: 10 mg Morphine Sulfate (Morphine) 1 mg IVPUSH Q4H PRN PRN Reason: Pain (severe 7-10) Stop: 12/15/19 22:06 Morphine Sulfate (Morphine) 1 mg IVPUSH ONETIME ONE Stop: 12/20/19 09:24 Last Admin: 12/20/19 09:35 Dose: 1 mg Morphine Sulfate (Morphine) 1 mg IVPUSH ONETIME ONE Stop: 12/20/19 11:01 Last Admin: 12/20/19 11:30 Dose: 1 mg Morphine Sulfate (Morphine) 1 mg IVPUSH Q8H PRN PRN Reason: Pain (severe 7-10) Last Admin: 12/22/19 14:41 Dose: 1 mg Morphine Sulfate (Morphine) 1 mg IVPUSH ONETIME PRN PRN Reason: Pain Nystatin (Nystatin Oral Syringe) 5 unit PO QID [facility] Last Admin: 12/20/19 20:31 Dose: 5 unit Nystatin (Nystatin Oral Syringe) 500,000 unit PO QID [facility] Last Admin: 12/26/19 08:36 Dose: 500,000 unit Ondansetron HCl (Zofran) 4 mg IVPUSH ONETIME ONE Stop: 12/14/19 21:23 Last Admin: 12/14/19 21:43 Dose: 4 mg Pantoprazole Sodium (Protonix Iv) 40 mg IVPUSH DAILY@0600 [facility] Last Admin: 12/18/19 06:13 Dose: 40 mg Potassium Chloride (Klor-Con M20) 40 meq PO BID [facility] Stop: 12/19/19 21:01 Last Admin: 12/19/19 20:19 Dose: 40 meq Quetiapine Fumarate (Seroquel) 100 mg PO ONETIME ONE Stop: 12/17/19 21:01 Last Admin: 12/17/19 20:21 Dose: 100 mg Succinylcholine Chloride (Quelicin) 200 mg .ROUTE .STK-MED ONE Stop: 12/14/19 23:41 Triamterene/HCTZ (Dyazide 25-37.5 Mg) 1 each PO DAILY [facility] Last Admin: 12/25/19 08:44 Dose: 1 each - Exam Quality Assessment: Supplemental Oxygen (Baseline 4L ) General: Alert, Oriented, Cooperative, Mild Distress HEENT: Pupils Equal, Pupils Reactive, Mucous Membr. Moist/[place] Neck: Supple, +2 Carotid Pulse wo Bruit Lungs: Decreased Breath Sounds (minimal air flow ), Wheezing Cardiovascular: Regular Rate, Regular Rhythm GI/Abdominal Exam: Normal Bowel Sounds, Soft, Non-Tender, No Distention (Female) Exam: Deferred Back Exam: Normal Inspection, Full Range of Motion Skin: Warm, Dry, Intact Neurological: No New Focal Deficit Psy/Mental Status: Alert Sepsis Event Note - Evaluation Sepsis Screening Result: No Definite Risk - Focused Exam Vital Signs: Vital Signs Temp Pulse Pulse Resp BP BP Pulse Ox 12/27/19 09:08 12/27/19 08:50 12/27/19 08:20 79 112/73 12/27/19 03:00 97.9 F 77 20 117/67 92 L Pulse Ox Pulse Ox 12/27/19 09:08 95 12/27/19 08:50 96 12/27/19 08:20 12/27/19 03:00 Date Exam was Performed: 12/27/19 Time Exam was Performed: 15:35 - Problem List & Annotations (1) Acute delirium SNOMED Code(s): 2028474, 5424456 Code(s): R41.0 - DISORIENTATION, UNSPECIFIED Status: Resolved Current Visit: Yes (2) Chronic respiratory acidosis SNOMED Code(s): 4658282 Code(s): E87.2 - ACIDOSIS Status: Acute Current Visit: Yes (3) Elevated troponin SNOMED Code(s): 506496916, 570959424, 447239797 Code(s): R79.89 - OTHER SPECIFIED ABNORMAL FINDINGS OF BLOOD CHEMISTRY Status: Acute Current Visit: Yes (4) End stage COPD SNOMED Code(s): 797490967 Code(s): J44.9 - CHRONIC OBSTRUCTIVE PULMONARY DISEASE, UNSPECIFIED Status : Acute Current Visit: Yes (5) Hypoalbuminemia SNOMED Code(s): 093122675 Code(s): E88.09 - OTH DISORDERS OF PLASMA-PROTEIN METABOLISM, NEC Status: Acute Current Visit: Yes (6) Hypochloremia SNOMED Code(s): 76437766 Code(s): E87.8 - OTH DISORDERS OF ELECTROLYTE AND FLUID BALANCE, NEC Status : Acute Current Visit: Yes (7) Hypophosphatemia SNOMED Code(s): 1795304 Code(s): E83.39 - OTHER DISORDERS OF PHOSPHORUS METABOLISM Status: Resolved Current Visit: Yes (8) Leukocytosis SNOMED Code(s): 585805603, 402521031 Code(s): D72.829 - ELEVATED WHITE BLOOD CELL COUNT, UNSPECIFIED Status: Acute Current Visit: Yes (9) Nocardial pneumonia SNOMED Code(s): 745820149 Code(s): A43.0 - PULMONARY NOCARDIOSIS Status: Acute Current Visit: Yes (10) Opioid dependence SNOMED Code(s): 95439520 Code(s): F11.20 - OPIOID DEPENDENCE, UNCOMPLICATED Status: Acute Current Visit: Yes (11) Pneumonia SNOMED Code(s): 229187921 Code(s): J18.9 - PNEUMONIA, UNSPECIFIED ORGANISM Status: Acute Current Visit: Yes Qualifiers: Pneumonia type: due to unspecified organism Laterality: right Lung location: lower lobe of lung Qualified Code(s): J18.9 - Pneumonia, unspecified organism (12) Pulmonary cachexia due to COPD SNOMED Code(s): 833252444 Code(s): J44.9 - CHRONIC OBSTRUCTIVE PULMONARY DISEASE, UNSPECIFIED; R64 - CACHEXIA Status: Acute Current Visit: Yes (13) RSV infection SNOMED Code(s): 36317874 Code(s): B97.4 - RESPIRATORY SYNCYTIAL VIRUS CAUSING DISEASES CLASSD ELSWHR Status: Acute Current Visit: Yes (14) Respiratory failure with hypoxia and hypercapnia SNOMED Code(s): 87114946 Code(s): J96.91 - RESPIRATORY FAILURE, UNSPECIFIED WITH HYPOXIA; J96.92 - RESPIRATORY FAILURE, UNSPECIFIED WITH HYPERCAPNIA Status: Acute Current Visit: Yes Qualifiers: Chronicity: acute on chronic Qualified Code(s): J96.21 - Acute and chronic respiratory failure with hypoxia; J96.22 - Acute and chronic respiratory failure with hypercapnia (15) Severe malnutrition SNOMED Code(s): 64063733 Code(s): E43 - UNSPECIFIED SEVERE PROTEIN-CALORIE MALNUTRITION Status: Acute Current Visit: Yes (16) Sinus tachycardia seen on athletic monitor SNOMED Code(s): 466294687 Code(s): R00.0 - TACHYCARDIA, UNSPECIFIED Status: Acute Current Visit: Yes (17) Thrombocytosis SNOMED Code(s): 5373084 Code(s): D47.3 - ESSENTIAL (HEMORRHAGIC) THROMBOCYTHEMIA Status: Acute Current Visit: Yes (18) COPD exacerbation SNOMED Code(s): 523829081 Code(s): J44.1 - CHRONIC OBSTRUCTIVE PULMONARY DISEASE W (ACUTE) EXACERBATION Status: Acute Current Visit: No (19) Chest wall pain, chronic SNOMED Code(s): 795202439 Code(s): R07.89 - OTHER CHEST PAIN; G89.29 - OTHER CHRONIC PAIN Status: Acute Current Visit: No (20) Dental caries extending into dentin Status: Acute Current Visit: No (21) Headache SNOMED Code(s): 83780817 Code(s): R51 - HEADACHE Status: Acute Current Visit: No Qualifiers: Headache type: other vascular headache Qualified Code(s): G44.1 - Vascular headache, not elsewhere classified (22) Hypomagnesemia SNOMED Code(s): 643534579 Code(s): E83.42 - HYPOMAGNESEMIA Status: Acute Priority: High Current Visit: No (23) Oral candidiasis SNOMED Code(s): 81270827 Code(s): B37.0 - CANDIDAL STOMATITIS Status: Acute Current Visit: No (24) Anxiety SNOMED Code(s): 19196341 Code(s): F41.9 - ANXIETY DISORDER, UNSPECIFIED Status: Chronic Priority: Medium Current Visit: No (25) HTN (hypertension) SNOMED Code(s): 57742889 Code(s): I10 - ESSENTIAL (PRIMARY) HYPERTENSION Status: Chronic Priority : Low Current Visit: No Qualifiers: Hypertension type: unspecified Qualified Code(s): I10 - Essential (primary ) hypertension (26) Hypoxia SNOMED Code(s): 630300937 Code(s): R09.02 - HYPOXEMIA Status: Chronic Priority: High Current Visit: No (27) Severe anxiety SNOMED Code(s): 67509966 Code(s): F41.9 - ANXIETY DISORDER, UNSPECIFIED Status: Chronic Priority: Medium Current Visit: No - Problem List Review Problem List Initiated/Reviewed/Updated: Yes - Plan Plan:: ASSESSMENT BY DAY Day 1 - Patient came in to ED for worsening shortness of breath--> placed on BiPAP--> admitted to ICU on BIPAP - Mental status declined and PCO2>100 + pH 7.1--> Intubated - Sedated with Versed and propofol - Tachycardic, requires IV metoprolol - Started on Rocephin, azithromycin and Tamiflu Day 2 - Intubated - Significant improvement in WBC - Sedation vacation --> patient got agitated - Failed SBT Day3 - Procalcitonin elevated - Respiratory panel + for RSV and mycoplasma - Discontinued Tamiflu and Rocephin - Kept O2 sat > 95% with FiO2 of 45% - Urine output decreased significantly to 540/24 hrs--> responded to fluid bolus Day 4 - Extubated - Transitioned to BiPAP - Attempted hi-flow but patient is a mouth breather and SatO2 < low 80's - Minimal improvement in UO--> Lasix - Significant hallucinations overnight with delirium, no physical agitation Day 5 - UO increased with single dose of Lasix - Completing azithromycin day 5 - Very limited movement due to drop in O2 saturation with minimal movement including leaning forward and just moving head or hands - Unable to perform ADLs due to shortness of breath Day 6 - Advance diet to regular - Dietary giving high protein custard and 4oz of ensure TID - PT recommending home health with increased services - Tolerated CPAP overnight well Day 7 - Procalcitonin trending down - No BM yet - Eating better - Passive range of motion with PT - Used BiPAP all night - Reduce Solumedrol dose - Oral candidiasis with concern for esophageal, will consult surgery to evaluate EGD feasibility - Lactulose q6h until BM Day 8 - Slept OK - BM today - Decreased Solumedrol dose - PT recommending front wheel walker, transfer tub, wheelchair - Start Nystatin - Anesthesia recommended to defer EGD for after patient has been discharged from this hospitalization - OK to downgrade to medical floor Day 9 - Sputum culture confirmed with Nocardia - Started Bactrim - Clinically improved and stable - NC at 4L throughout - Decrease Solumedrol dose Day 10 - Restart home medications - Slept through the night - Exhibiting drug seeking behavior with morphine - Discussed importance of discontinuing opioids for pain control - PRN Toradol for pain Day 11 - Complaining of sore throat, started on magic mouth wash - K is 5.3 --> EKG - Phos 1.8 - Mg 1.8 - Sat > 90% with 4L NC - Sleeping great - Feels a lot better, close to baseline Day 12 - Reports feels about the same as yesterday - Requesting hospital bed for home - Magnesium low - supplement - Potassium back WNL - Eating ok - Stop Toradol - Add Diflucan, Stop nystatin - Remove tele Day13 - CO2 elevated in blood sample - ABG shows hypercapnia - CXR shows new bilateral pleural effusions - Mag 1.8 today - Phosphorous 2.3 - BM today - Day 8 of antifungal therapy - Day 9 of ABX - Eating OK - Reviewed ECHO from October - Procal - Patient changes code status to DNR/DNI, witnessed by Dr. Camacho and Charge nurse Shayna [employer] Neurologic: Monitor mental status Avoid interactions during the night Home Ativan Respiratory: NC when not on CPAP Atrovent q8h Budesonide q12 PO Medrol dose pack Guaifenesin TID CPAP Cardiovascular: Metoprolol PO, scheduled HCTZ home dose Trend BP and start medication if required PRN hydralazine for BP > 180/100 Lasix 40mg IVP x1 Renal and Electrolytes: Discontinued sanderson catheter Monitor urine output GI and hepatology: Regular diet 4oz Ensure TID Scheduled Senna Mirtazapine Fluconazole for yeast in UC Endocrine and Metabolism: Monitor glucose on daily labs Infectious Disease Continue Nystatin swallow Continue Bactrim, day 6 Monitor temp and panculture if greater than 99.2 Procalcitonin 0.05 Start fluconazole Hematology, Oncology and Immune system: No signs of active bleeding Goal Hb >7 PROPHYLAXIS DVT- Lovenox GI- not indicated CODE STATUS: On 12/27/19 patient changed code status to DNR/DNI. DISPOSITION: Patient will remain hospitalized, on medical floor for continued PT/OT and RT. 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 Length of stay greater than 96 hours due to suboptimal response to treatment Recommend ID follow-up after discharge Belinda is requesting a home hospital bed after discharge. She reports she has tried using pillows and a wedge but is unable to get a comfortable height. She has tried to sleep in the chair but is unable. She has pedal edema so leg elevation is recommended for her. She is well known to this service and has been hospitalized many times in the past for lung related issues. 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 She reports she spends a majority of her time in bed, essentially getting up only to utilize the restroom. She reports she spends over 75% of her time in bed. She is also requesting a wheelchair due to difficulty with ambulating and getting around her house. She becomes severely dyspneic with activity. This is a progressive disease and she has a very grim overall prognosis.
--- NOTE | 2019-12-27 13:05 | CR ---
Chest: Two views of the chest were obtained. Comparison: Prior chest x-ray of 12/15/19. Small bilateral pleural effusions are seen. This is an interval change from prior exam. Slight parenchymal density within the left midlung most likely representing thick area of scarring. Heart size and mediastinum are normal. Right shoulder prosthesis is seen. Bony structures are osteopenic. Impression: 1. Small bilateral pleural effusions as an interval change from prior study. 2. Emphysematous change and other findings as noted above. Diagnostic code #3 Study was dictated in [facility]
[2019-12-27] MEDS ORDERED: Furosemide 40 MG/4 ML VIAL IVPUSH ONE (13:30)
[2019-12-27] MEDS: Mirtazapine 30 MG Tab PO SCH (21:08)
[2019-12-27] MEDS: Ipratropium 0.02% 0.5 MG/2.5 ML Neb Soln NEB PRN (21:53)
[2019-12-28] MEDS: Acetaminophen/HYDROcodone 325-5 MG Tab PO PRN ×3 (05:39→17:31)
[2019-12-28] MEDS: Metoprolol Tartrate 50 MG Tab PO SCH ×2 (08:52→21:52)
[2019-12-28] MEDS: Sennosides 8.6 MG Tab PO SCH ×2 (08:53→22:45)
[2019-12-28] MEDS: Magnesium Oxide 400 MG Tab PO SCH ×2 (08:53→21:54)
[2019-12-28] MEDS: ALPRAZolam 1 MG Tab PO PRN ×2 (08:53→21:54)
[2019-12-28] MEDS: Sulfamethoxazole/Trimethoprim 800-160 MG Tab PO SCH ×2 (08:53→21:55)
[2019-12-28] MEDS: guaiFENesin 600 MG Tab.ER PO SCH ×3 (08:54→21:55)
[2019-12-28] MEDS: Hydrochlorothiazide 25 MG Tab PO SCH (08:54)
[2019-12-28] MEDS: Diphenhydramine/Lidocaine/MagAl/Simethicone 119 ML Bottle PO SCH ×3 (08:55→21:49)
[2019-12-28] MEDS: Enoxaparin 40 MG/0.4 ML Syringe SUBCUT SCH (08:55)
--- NOTE | 2019-12-28 09:11 | PCM.PN ---
- General Info Date of Service: 12/28/19 Admission Dx/Problem (Free Text): Admission Diagnosis/Problem Admission Diagnosis/Problem Hypoxemia requiring supplemental oxygen - Patient Data Vitals - Most Recent: Last Vital Signs Temp 98.1 F 12/27/19 14:52 Pulse 81 12/28/19 08:52 Resp 22 H 12/28/19 03:00 BP 122/72 12/28/19 08:52 Pulse Ox 86 L 12/28/19 09:04 Weight - Most Recent: 139 lb 1.6 oz I&O - Last 24 Hours: Intake & Output 12/27/19 12/28/19 12/28/19 22:59 06:59 14:59 Intake Total 1080 600 0 Output Total 2400 3450 Balance -1320 -2850 0 Lab Results Last 24 Hours: Laboratory Results - last 24 hr 12/26/19 12/27/19 12/27/19 Range/Units 11:32 05:35 13:15 WBC (3.98-10.04) K/mm3 RBC (3.98-5.22) M/mm3 Hgb (11.2-15.7) gm/dl Hct (34.1-44.9) % MCV (79.4-94.8) fl MCH (25.6-32.2) pg MCHC (32.2-35.5) g/dl RDW Std Deviation (36.4-46.3) fL Plt Count (182-369) K/mm3 MPV (9.4-12.3) fl Neut % (Auto) (34.0-71.1) % Lymph % (Auto) (19.3-51.7) % Person % (Auto) (4.7-12.5) % Eos % (Auto) (0.7-5.8) Baso % (Auto) (0.1-1.2) % Neut # (Auto) (1.56-6.13) K/mm3 Lymph # (Auto) (1.18-3.74) K/mm3 Person # (Auto) (0.24-0.36) K/mm3 Eos # (Auto) (0.04-0.36) K/mm3 Baso # (Auto) (0.01-0.08) K/mm3 Manual Slide Review Puncture Site Rt radial ABG pH 7.38 (7.35-7.45) ABG pCO2 70.3 H* (35.0-45.0) mmHg ABG pO2 58.0 L (80.0-100.0) mmHg ABG HCO3 40.7 H (22.0-26.0) meq/L ABG O2 Saturation 82.7 L (96.0-97.0) % ABG Base Excess 13.4 H (-2-2.0) Johnny Test A-a Gradient 111 mmHg O2 Delivery Device Cpap Oxygen Flow Rate 4.0 FiO2 36.00 (21.00-100.00) % Sodium 138 (136-145) mEq/L Potassium 4.7 (3.5-5.1) mEq/L Chloride 100 (98-107) mEq/L Carbon Dioxide 37 H (21-32) mEq/L Anion Gap 5.7 (5-15) BUN 22 H (7-18) mg/dL Creatinine 0.7 (0.55-1.02) mg/dL Est Cr Clr Drug Dosing 81.71 mL/min Estimated GFR (MDRD) > 60 (>60) mL/min BUN/Creatinine Ratio 31.4 H (14-18) Glucose 109 H (74-106) mg/dL Calcium 8.0 L (8.5-10.1) mg/dL Magnesium (1.8-2.4) mg/dl Total Bilirubin 0.1 L (0.2-1.0) mg/dL AST 19 (15-37) U/L ALT 46 (14-59) U/L Alkaline Phosphatase 65 (46-116) U/L Total Protein 5.3 L (6.4-8.2) g/dl Albumin 2.6 L (3.4-5.0) g/dl Globulin 2.7 gm/dL Albumin/Globulin Ratio 1.0 (1-2) Procalcitonin 0.07 (<0.10) ng/mL 12/28/19 12/28/19 12/28/19 Range/Units 05:25 05:25 08:42 WBC 12.48 H (3.98-10.04) K/mm3 RBC 3.25 L (3.98-5.22) M/mm3 Hgb 9.1 L D (11.2-15.7) gm/dl Hct 31.3 L (34.1-44.9) % MCV 96.3 H D (79.4-94.8) fl MCH 28.0 (25.6-32.2) pg MCHC 29.1 L (32.2-35.5) g/dl RDW Std Deviation 46.0 (36.4-46.3) fL Plt Count 489 H D (182-369) K/mm3 MPV 9.7 (9.4-12.3) fl Neut % (Auto) 77.8 H (34.0-71.1) % Lymph % (Auto) 10.7 L (19.3-51.7) % Person % (Auto) 9.4 (4.7-12.5) % Eos % (Auto) 0.1 L (0.7-5.8) Baso % (Auto) 0.2 (0.1-1.2) % Neut # (Auto) 9.71 H (1.56-6.13) K/mm3 Lymph # (Auto) 1.34 (1.18-3.74) K/mm3 Person # (Auto) 1.17 H (0.24-0.36) K/mm3 Eos # (Auto) 0.01 L (0.04-0.36) K/mm3 Baso # (Auto) 0.02 (0.01-0.08) K/mm3 Manual Slide Review Abnormal smear Puncture Site Lt radial ABG pH 7.39 (7.35-7.45) ABG pCO2 79.7 H* (35.0-45.0) mmHg ABG pO2 88.0 (80.0-100.0) mmHg ABG HCO3 47.3 H (22.0-26.0) meq/L ABG O2 Saturation 92.1 L (96.0-97.0) % ABG Base Excess 19.0 H (-2-2.0) Johnny Test Positive A-a Gradient 69 mmHg O2 Delivery Device Nasal cannula Oxygen Flow Rate 4.0 FiO2 36.00 (21.00-100.00) % Sodium 141 (136-145) mEq/L Potassium 4.7 (3.5-5.1) mEq/L Chloride 98 (98-107) mEq/L Carbon Dioxide 45 H* (21-32) mEq/L Anion Gap 2.7 L (5-15) BUN 25 H (7-18) mg/dL Creatinine 0.7 (0.55-1.02) mg/dL Est Cr Clr Drug Dosing 81.71 mL/min Estimated GFR (MDRD) > 60 (>60) mL/min BUN/Creatinine Ratio 35.7 H (14-18) Glucose 91 (74-106) mg/dL Calcium 8.0 L (8.5-10.1) mg/dL Magnesium 1.6 L (1.8-2.4) mg/dl Total Bilirubin 0.1 L (0.2-1.0) mg/dL AST 20 (15-37) U/L ALT 47 (14-59) U/L Alkaline Phosphatase 56 (46-116) U/L Total Protein 4.8 L (6.4-8.2) g/dl Albumin 2.3 L (3.4-5.0) g/dl Globulin 2.5 gm/dL Albumin/Globulin Ratio 0.9 L (1-2) Procalcitonin (<0.10) ng/mL Med Orders - Current: Current Medications Hydrocodone Bitart/Acetaminophen ([place] 325-5 Mg) 1 tab PO Q6H PRN PRN Reason: Pain Last Admin: 12/28/19 05:39 Dose: 1 tab Alprazolam (Xanax) 1 mg PO BID PRN PRN Reason: Anxiety Last Admin: 12/28/19 08:53 Dose: 1 mg Budesonide (Pulmicort) 0.5 mg NEB BIDRT PRN PRN Reason: Other Last Admin: 12/27/19 21:53 Dose: 0.5 mg Diphenhydr/Magaldrate/Simeth/Lidoca (First-Mouthwash Blm Susp) 30 ml PO TID [facility] Last Admin: 12/28/19 08:55 Dose: 30 ml Docusate Sodium (Colace) 100 mg PO BID PRN PRN Reason: Constipation Last Admin: 12/21/19 08:31 Dose: 100 mg Enoxaparin Sodium (Lovenox) 40 mg SUBCUT DAILY [facility] Last Admin: 12/28/19 08:55 Dose: 40 mg Fluconazole (Diflucan) 100 mg PO Q24H [facility] Last Admin: 12/27/19 11:51 Dose: 100 mg Guaifenesin (Mucinex) 600 mg PO TID [facility] Last Admin: 12/28/19 08:54 Dose: 600 mg Hydralazine HCl (Apresoline) 10 mg IVPUSH Q2H PRN PRN Reason: Hypertension Last Admin: 12/18/19 16:16 Dose: 10 mg Hydrochlorothiazide (Hydrochlorothiazide) 25 mg PO DAILY [facility] Last Admin: 12/28/19 08:54 Dose: 25 mg Ipratropium Clare (Atrovent) 0.5 mg NEB Q8HRRT PRN PRN Reason: Other Last Admin: 12/27/19 21:53 Dose: 0.5 mg Magnesium Oxide (Magnesium Oxide) 400 mg PO DAILY [facility] Last Admin: 12/28/19 08:53 Dose: 400 mg Methylprednisolone (Medrol) 12 mg PO ONETIME ONE Stop: 12/29/19 09:01 Methylprednisolone (Medrol) 8 mg PO ONETIME ONE Stop: 12/30/19 09:01 Methylprednisolone (Medrol) 4 mg PO ONETIME ONE Stop: 12/31/19 09:01 Metoprolol Tartrate (Lopressor) 50 mg PO BID [facility] Last Admin: 12/28/19 08:52 Dose: 50 mg Mirtazapine (Remeron) 30 mg PO BEDTIME [facility] Last Admin: 12/27/19 21:08 Dose: 30 mg Morphine Sulfate (Morphine) 1 mg IVPUSH ONETIME PRN PRN Reason: Pain Ondansetron HCl (Zofran Odt) 4 mg PO Q6H PRN PRN Reason: nausea, able to take PO Ondansetron HCl (Zofran) 4 mg IV Q6H PRN PRN Reason: Nausea/Vomiting Senna (Senna) 8.6 mg PO BID [facility] Last Admin: 12/28/19 08:53 Dose: Not Given Trimethoprim/Sulfamethoxazole (Septra Ds) 1 tab PO BID [facility] Last Admin: 12/28/19 08:53 Dose: 1 tab Trolamine Salicylate (Aspercreme 10%) 0 gm TOP Q4HR PRN PRN Reason: Pain Discontinued Medications Acetaminophen/Codeine Phosphate (Tylenol With Codeine No.3 300mg/30mg) 1 tab PO Q6H PRN PRN Reason: Pain (severe 7-10) Last Admin: 12/18/19 14:13 Dose: 1 tab Azithromycin (Zithromax) 500 mg PO BEDTIME [facility] Stop: 12/18/19 21:01 Last Admin: 12/18/19 21:05 Dose: 500 mg Budesonide (Pulmicort) 0.5 mg NEB BIDRT [facility] Last Admin: 12/26/19 06:33 Dose: Not Given Calcium Gluconate (Calcium Gluconate) 1 gm IVPUSH ONETIME ONE Stop: 12/25/19 18:18 Last Admin: 12/25/19 19:21 Dose: 1 gm Dextrose/Water (Dextrose 50% In Water) 50 ml IVPUSH ONETIME ONE Stop: 12/25/19 18:41 Last Admin: 12/25/19 19:38 Dose: 50 ml Etomidate (Amidate) 40 mg IVPUSH .STK-MED ONE Stop: 12/14/19 23:41 Fluconazole (Diflucan) 200 mg PO ONETIME ONE Stop: 12/26/19 12:01 Last Admin: 12/26/19 11:57 Dose: 200 mg Furosemide (Lasix) 40 mg IVPUSH NOW ONE Stop: 12/27/19 13:31 Last Admin: 12/27/19 14:24 Dose: 40 mg Haloperidol Lactate (Haldol) 5 mg IVPUSH ONETIME ONE Stop: 12/17/19 09:01 Last Admin: 12/17/19 09:11 Dose: 5 mg Heparin Sodium (Porcine) (Heparin Lock Flush 100 Units/Ml) Confirm Administered Dose 500 units .ROUTE .STK-MED ONE Stop: 12/17/19 18:27 Last Admin: 12/17/19 20:01 Dose: Not Given Hydromorphone HCl (Dilaudid) 0.25 mg IVPUSH ONETIME ONE Stop: 12/14/19 21:24 Last Admin: 12/14/19 21:43 Dose: 0.25 mg Sodium Chloride (Normal Saline) 1,000 mls @ 150 mls/hr IV ASDIRECTED [facility] Last Infusion: 12/16/19 09:23 Dose: 250 mls/hr Azithromycin 500 mg/ Sodium (Chloride) 250 mls @ 250 mls/hr IV Q24H [facility] Stop: 12/18/19 23:30 Last Admin: 12/17/19 21:16 Dose: 250 mls/hr Ceftriaxone Sodium 2 gm/ (Sodium Chloride) 100 mls @ 200 mls/hr IV Q24H [facility] Last Admin: 12/14/19 23:32 Dose: 200 mls/hr Propofol (Diprivan 100 Ml) Confirm Administered Dose 100 mls @ as directed .ROUTE .[facility] ONE Stop: 12/15/19 00:02 Last Admin: 12/15/19 00:23 Dose: Not Given Propofol (Diprivan 100 Ml) 100 mls @ 1.463 mls/hr IV TITRATE [facility]; Protocol Last Admin: 12/16/19 02:10 Dose: 32 mcg/kg/min, 9.362 mls/hr Norepinephrine Bitartrate 4 mg (/ Dextrose/Water) 250 mls @ 7.5 mls/hr IV TITRATE [facility]; Protocol Ceftriaxone Sodium 2 gm/ (Sodium Chloride) 100 mls @ 200 mls/hr IV Q24H [facility] Last Admin: 12/15/19 22:38 Dose: 200 mls/hr Magnesium Sulfate 2 gm/ Premix 50 mls @ 25 mls/hr IV ONETIME ONE Stop: 12/15/19 09:59 Last Admin: 12/15/19 08:03 Dose: 25 mls/hr Magnesium Sulfate (Magnesium Sulfate In Water Premix) Confirm Administered Dose 50 mls @ as directed .ROUTE .[facility] ONE Stop: 12/15/19 07:56 Last Admin: 12/15/19 08:02 Dose: Not Given Midazolam HCl 100 mg/ Sodium (Chloride) 100 mls @ 0.5 mls/hr IV ASDIRECTED [facility] Last Infusion: 12/15/19 17:38 Dose: 5 mls/hr Midazolam HCl 50 mg/ Sodium (Chloride) 50 mls @ 2.44 mls/hr IV TITRATE [facility]; Protocol Lactated Ringer's (Ringers, Lactated) 1,000 mls @ 250 mls/hr IV ASDIRECTED [facility] Last Infusion: 12/16/19 20:44 Dose: 150 mls/hr Lactated Ringer's (Ringers, Lactated) 1,000 mls @ 150 mls/hr IV ASDIRECTED [facility] Last Admin: 12/17/19 08:35 Dose: 150 mls/hr Sodium Chloride (Normal Saline) Confirm Administered Dose 1,000 mls @ as directed .ROUTE .[facility] ONE Stop: 12/17/19 17:24 Last Admin: 12/17/19 20:01 Dose: Not Given Magnesium Sulfate 4 gm/ Premix 100 mls @ 25 mls/hr IV ONETIME ONE Stop: 12/17/19 23:59 Last Admin: 12/17/19 20:20 Dose: 25 mls/hr Potassium Phosphate 30 mmole/ (Sodium Chloride) 510 mls @ 102 mls/hr IV Q5H [facility] Stop: 12/19/19 21:59 Last Admin: 12/19/19 17:14 Dose: Not Given Magnesium Sulfate 2 gm/ Premix 50 mls @ 25 mls/hr IV Q1H [facility] Stop: 12/24/19 12:44 Last Admin: 12/24/19 12:07 Dose: 25 mls/hr Sodium Phosphate 30 mmole/ (Sodium Chloride) 260 mls @ 86.667 mls/hr IV ONETIME ONE Stop: 12/24/19 12:01 Last Admin: 12/24/19 14:03 Dose: 86.667 mls/hr Sodium Phosphate 30 mmole/ (Sodium Chloride) 260 mls @ 130 mls/hr IV Q2H [facility] Stop: 12/25/19 18:59 Last Admin: 12/25/19 19:19 Dose: 130 mls/hr Magnesium Sulfate 2 gm/ Premix 50 mls @ 25 mls/hr IV ONETIME ONE Stop: 12/26/19 10:59 Last Admin: 12/26/19 08:49 Dose: 25 mls/hr Insulin Human Regular (Humulin R) 10 unit IV ONETIME ONE Stop: 12/25/19 18:20 Last Admin: 12/25/19 19:36 Dose: 10 unit Ipratropium Clare (Atrovent) 0.5 mg NEB Q8HRRT [facility] Last Admin: 12/26/19 06:33 Dose: Not Given Ketorolac Tromethamine (Toradol) 15 mg IM Q6H PRN PRN Reason: Pain (moderate 4-6) Ketorolac Tromethamine (Toradol) 15 mg IM Q6H PRN PRN Reason: Pain (moderate 4-6) Ketorolac Tromethamine (Toradol) 15 mg IVPUSH Q6H PRN PRN Reason: Pain (moderate 4-6) Last Admin: 12/25/19 20:47 Dose: 15 mg Lorazepam (Ativan) 1 mg IVPUSH ONETIME ONE Stop: 12/20/19 10:38 Last Admin: 12/20/19 11:00 Dose: 1 mg Methylprednisolone (Medrol) 24 mg PO ONETIME ONE Stop: 12/26/19 09:01 Last Admin: 12/26/19 08:36 Dose: 24 mg Methylprednisolone (Medrol) 20 mg PO ONETIME ONE Stop: 12/27/19 09:01 Last Admin: 12/27/19 08:22 Dose: 20 mg Methylprednisolone (Medrol) 16 mg PO ONETIME ONE Stop: 12/28/19 09:01 Last Admin: 12/28/19 08:54 Dose: 16 mg Methylprednisolone Sodium Succinate (Solu-Medrol) 125 mg IVPUSH Q12H [facility] Last Admin: 12/21/19 10:40 Dose: 125 mg Methylprednisolone Sodium Succinate (Solu-Medrol) 80 mg IVPUSH Q12H [facility] Last Admin: 12/22/19 09:42 Dose: 80 mg Methylprednisolone Sodium Succinate (Solu-Medrol) 40 mg IVPUSH Q12H [facility] Last Admin: 12/25/19 08:44 Dose: 40 mg Metoprolol Tartrate (Lopressor) 2.5 mg IVPUSH ONETIME ONE Stop: 12/15/19 06:06 Last Admin: 12/15/19 06:13 Dose: 2.5 mg Metoprolol Tartrate (Lopressor) 2.5 mg IVPUSH Q12HR [facility] Last Admin: 12/18/19 07:59 Dose: 2.5 mg Metoprolol Tartrate (Lopressor) 10 mg IVPUSH ONETIME ONE Stop: 12/18/19 17:21 Last Admin: 12/18/19 17:00 Dose: 10 mg Morphine Sulfate (Morphine) 1 mg IVPUSH Q4H PRN PRN Reason: Pain (severe 7-10) Stop: 12/15/19 22:06 Morphine Sulfate (Morphine) 1 mg IVPUSH ONETIME ONE Stop: 12/20/19 09:24 Last Admin: 12/20/19 09:35 Dose: 1 mg Morphine Sulfate (Morphine) 1 mg IVPUSH ONETIME ONE Stop: 12/20/19 11:01 Last Admin: 12/20/19 11:30 Dose: 1 mg Morphine Sulfate (Morphine) 1 mg IVPUSH Q8H PRN PRN Reason: Pain (severe 7-10) Last Admin: 12/22/19 14:41 Dose: 1 mg Morphine Sulfate (Morphine) 1 mg IVPUSH ONETIME PRN PRN Reason: Pain Nystatin (Nystatin Oral Syringe) 5 unit PO QID [facility] Last Admin: 12/20/19 20:31 Dose: 5 unit Nystatin (Nystatin Oral Syringe) 500,000 unit PO QID [facility] Last Admin: 12/26/19 08:36 Dose: 500,000 unit Ondansetron HCl (Zofran) 4 mg IVPUSH ONETIME ONE Stop: 12/14/19 21:23 Last Admin: 12/14/19 21:43 Dose: 4 mg Pantoprazole Sodium (Protonix Iv) 40 mg IVPUSH DAILY@0600 [facility] Last Admin: 12/18/19 06:13 Dose: 40 mg Potassium Chloride (Klor-Con M20) 40 meq PO BID [facility] Stop: 12/19/19 21:01 Last Admin: 12/19/19 20:19 Dose: 40 meq Quetiapine Fumarate (Seroquel) 100 mg PO ONETIME ONE Stop: 12/17/19 21:01 Last Admin: 12/17/19 20:21 Dose: 100 mg Succinylcholine Chloride (Quelicin) 200 mg .ROUTE .STK-MED ONE Stop: 12/14/19 23:41 Triamterene/HCTZ (Dyazide 25-37.5 Mg) 1 each PO DAILY [facility] Last Admin: 12/25/19 08:44 Dose: 1 each Sepsis Event Note - Evaluation Sepsis Screening Result: No Definite Risk - Focused Exam Vital Signs: Vital Signs Pulse Pulse Resp BP BP Pulse Ox Pulse Ox 12/28/19 09:04 12/28/19 08:52 81 122/72 12/28/19 03:00 69 22 H 112/80 94 L 12/28/19 00:29 96 12/27/19 21:56 Pulse Ox Pulse Ox 12/28/19 09:04 86 L 12/28/19 08:52 12/28/19 03:00 12/28/19 00:29 12/27/19 21:56 97 Date Exam was Performed: 12/28/19 Time Exam was Performed: 09:11 - Problem List & Annotations (1) Acute delirium SNOMED Code(s): 4682763, 2097233 Code(s): R41.0 - DISORIENTATION, UNSPECIFIED Status: Resolved Current Visit: Yes (2) Chronic respiratory acidosis SNOMED Code(s): 5391758 Code(s): E87.2 - ACIDOSIS Status: Acute Current Visit: Yes (3) Elevated troponin SNOMED Code(s): 059757162, 734787899, 317742511 Code(s): R79.89 - OTHER SPECIFIED ABNORMAL FINDINGS OF BLOOD CHEMISTRY Status: Acute Current Visit: Yes (4) End stage COPD SNOMED Code(s): 278205810 Code(s): J44.9 - CHRONIC OBSTRUCTIVE PULMONARY DISEASE, UNSPECIFIED Status : Acute Current Visit: Yes (5) Hypoalbuminemia SNOMED Code(s): 282651912 Code(s): E88.09 - OTH DISORDERS OF PLASMA-PROTEIN METABOLISM, NEC Status: Acute Current Visit: Yes (6) Hypochloremia SNOMED Code(s): 45413861 Code(s): E87.8 - OTH DISORDERS OF ELECTROLYTE AND FLUID BALANCE, NEC Status : Acute Current Visit: Yes (7) Hypophosphatemia SNOMED Code(s): 2791951 Code(s): E83.39 - OTHER DISORDERS OF PHOSPHORUS METABOLISM Status: Resolved Current Visit: Yes (8) Leukocytosis SNOMED Code(s): 054233793, 620230066 Code(s): D72.829 - ELEVATED WHITE BLOOD CELL COUNT, UNSPECIFIED Status: Acute Current Visit: Yes (9) Nocardial pneumonia SNOMED Code(s): 652975006 Code(s): A43.0 - PULMONARY NOCARDIOSIS Status: Acute Current Visit: Yes (10) Opioid dependence SNOMED Code(s): 62466157 Code(s): F11.20 - OPIOID DEPENDENCE, UNCOMPLICATED Status: Acute Current Visit: Yes (11) Pneumonia SNOMED Code(s): 518138843 Code(s): J18.9 - PNEUMONIA, UNSPECIFIED ORGANISM Status: Acute Current Visit: Yes Qualifiers: Pneumonia type: due to unspecified organism Laterality: right Lung location: lower lobe of lung Qualified Code(s): J18.9 - Pneumonia, unspecified organism (12) Pulmonary cachexia due to COPD SNOMED Code(s): 768327775 Code(s): J44.9 - CHRONIC OBSTRUCTIVE PULMONARY DISEASE, UNSPECIFIED; R64 - CACHEXIA Status: Acute Current Visit: Yes (13) RSV infection SNOMED Code(s): 89113826 Code(s): B97.4 - RESPIRATORY SYNCYTIAL VIRUS CAUSING DISEASES CLASSD ELSWHR Status: Acute Current Visit: Yes (14) Respiratory failure with hypoxia and hypercapnia SNOMED Code(s): 14385681 Code(s): J96.91 - RESPIRATORY FAILURE, UNSPECIFIED WITH HYPOXIA; J96.92 - RESPIRATORY FAILURE, UNSPECIFIED WITH HYPERCAPNIA Status: Acute Current Visit: Yes Qualifiers: Chronicity: acute on chronic Qualified Code(s): J96.21 - Acute and chronic respiratory failure with hypoxia; J96.22 - Acute and chronic respiratory failure with hypercapnia (15) Severe malnutrition SNOMED Code(s): 84584545 Code(s): E43 - UNSPECIFIED SEVERE PROTEIN-CALORIE MALNUTRITION Status: Acute Current Visit: Yes (16) Sinus tachycardia seen on media monitor SNOMED Code(s): 599676370 Code(s): R00.0 - TACHYCARDIA, UNSPECIFIED Status: Acute Current Visit: Yes (17) Thrombocytosis SNOMED Code(s): 1185058 Code(s): D47.3 - ESSENTIAL (HEMORRHAGIC) THROMBOCYTHEMIA Status: Acute Current Visit: Yes (18) COPD exacerbation SNOMED Code(s): 674010758 Code(s): J44.1 - CHRONIC OBSTRUCTIVE PULMONARY DISEASE W (ACUTE) EXACERBATION Status: Acute Current Visit: No (19) Chest wall pain, chronic SNOMED Code(s): 307270782 Code(s): R07.89 - OTHER CHEST PAIN; G89.29 - OTHER CHRONIC PAIN Status: Acute Current Visit: No (20) Dental caries extending into dentin Status: Acute Current Visit: No (21) Headache SNOMED Code(s): 74073154 Code(s): R51 - HEADACHE Status: Acute Current Visit: No Qualifiers: Headache type: other vascular headache Qualified Code(s): G44.1 - Vascular headache, not elsewhere classified (22) Hypomagnesemia SNOMED Code(s): 998805861 Code(s): E83.42 - HYPOMAGNESEMIA Status: Acute Priority: High Current Visit: No (23) Oral candidiasis SNOMED Code(s): 32567508 Code(s): B37.0 - CANDIDAL STOMATITIS Status: Acute Current Visit: No (24) Anxiety SNOMED Code(s): 91697195 Code(s): F41.9 - ANXIETY DISORDER, UNSPECIFIED Status: Chronic Priority: Medium Current Visit: No (25) HTN (hypertension) SNOMED Code(s): 69483769 Code(s): I10 - ESSENTIAL (PRIMARY) HYPERTENSION Status: Chronic Priority : Low Current Visit: No Qualifiers: Hypertension type: unspecified Qualified Code(s): I10 - Essential (primary ) hypertension (26) Hypoxia SNOMED Code(s): 722647168 Code(s): R09.02 - HYPOXEMIA Status: Chronic Priority: High Current Visit: No (27) Severe anxiety SNOMED Code(s): 76319848 Code(s): F41.9 - ANXIETY DISORDER, UNSPECIFIED Status: Chronic Priority: Medium Current Visit: No - My Orders Last 24 Hours: My Active Orders 12/27/19 15:24 Code Status [Resuscitation Status] Routine - Plan Plan:: ASSESSMENT BY DAY Day 1 - Patient came in to ED for worsening shortness of breath--> placed on BiPAP--> admitted to ICU on BIPAP - Mental status declined and PCO2>100 + pH 7.1--> Intubated - Sedated with Versed and propofol - Tachycardic, requires IV metoprolol - Started on Rocephin, azithromycin and Tamiflu Day 2 - Intubated - Significant improvement in WBC - Sedation vacation --> patient got agitated - Failed SBT Day3 - Procalcitonin elevated - Respiratory panel + for RSV and mycoplasma - Discontinued Tamiflu and Rocephin - Kept O2 sat > 95% with FiO2 of 45% - Urine output decreased significantly to 540/24 hrs--> responded to fluid bolus Day 4 - Extubated - Transitioned to BiPAP - Attempted hi-flow but patient is a mouth breather and SatO2 < low 80's - Minimal improvement in UO--> Lasix - Significant hallucinations overnight with delirium, no physical agitation Day 5 - UO increased with single dose of Lasix - Completing azithromycin day 5 - Very limited movement due to drop in O2 saturation with minimal movement including leaning forward and just moving head or hands - Unable to perform ADLs due to shortness of breath Day 6 - Advance diet to regular - Dietary giving high protein custard and 4oz of ensure TID - PT recommending home health with increased services - Tolerated CPAP overnight well Day 7 - Procalcitonin trending down - No BM yet - Eating better - Passive range of motion with PT - Used BiPAP all night - Reduce Solumedrol dose - Oral candidiasis with concern for esophageal, will consult surgery to evaluate EGD feasibility - Lactulose q6h until BM Day 8 - Slept OK - BM today - Decreased Solumedrol dose - PT recommending front wheel walker, transfer tub, wheelchair - Start Nystatin - Anesthesia recommended to defer EGD for after patient has been discharged from this hospitalization - OK to downgrade to medical floor Day 9 - Sputum culture confirmed with Nocardia - Started Bactrim - Clinically improved and stable - NC at 4L throughout - Decrease Solumedrol dose Day 10 - Restart home medications - Slept through the night - Exhibiting drug seeking behavior with morphine - Discussed importance of discontinuing opioids for pain control - PRN Toradol for pain Day 11 - Complaining of sore throat, started on magic mouth wash - K is 5.3 --> EKG - Phos 1.8 - Mg 1.8 - Sat > 90% with 4L NC - Sleeping great - Feels a lot better, close to baseline Day 12 - Reports feels about the same as yesterday - Requesting hospital bed for home - Magnesium low - supplement - Potassium back WNL - Eating ok - Stop Toradol - Add Diflucan, Stop nystatin - Remove tele Day13 - CO2 elevated in blood sample - ABG shows hypercapnia - CXR shows new bilateral pleural effusions - Mag 1.8 today - Phosphorous 2.3 - BM today - Day 8 of antifungal therapy - Day 9 of ABX - Eating OK - Reviewed ECHO from October - Procal - Patient changes code status to DNR/DNI, witnessed by Dr. Camacho and Charge nurse Sahyna [employer] Neurologic: Monitor mental status Avoid interactions during the night Home Ativan Respiratory: NC when not on CPAP Atrovent q8h Budesonide q12 PO Medrol dose pack Guaifenesin TID CPAP Cardiovascular: Metoprolol PO, scheduled HCTZ home dose Trend BP and start medication if required PRN hydralazine for BP > 180/100 Lasix 40mg IVP x1 Renal and Electrolytes: Discontinued sanderson catheter Monitor urine output GI and hepatology: Regular diet 4oz Ensure TID Scheduled Senna Mirtazapine Fluconazole for yeast in UC Endocrine and Metabolism: Monitor glucose on daily labs Infectious Disease Continue Nystatin swallow Continue Bactrim, day 6 Monitor temp and panculture if greater than 99.2 Procalcitonin 0.05 Start fluconazole Hematology, Oncology and Immune system: No signs of active bleeding Goal Hb >7 PROPHYLAXIS DVT- Lovenox GI- not indicated CODE STATUS: On 12/27/19 patient changed code status to DNR/DNI. DISPOSITION: Patient will remain hospitalized, on medical floor for continued PT/OT and RT. 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 Length of stay greater than 96 hours due to suboptimal response to treatment Recommend ID follow-up after discharge Belinda is requesting a home hospital bed after discharge. She reports she has tried using pillows and a wedge but is unable to get a comfortable height. She has tried to sleep in the chair but is unable. She has pedal edema so leg elevation is recommended for her. She is well known to this service and has been hospitalized many times in the past for lung related issues. 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 She reports she spends a majority of her time in bed, essentially getting up only to utilize the restroom. She reports she spends over 75% of her time in bed. She is also requesting a wheelchair due to difficulty with ambulating and getting around her house. She becomes severely dyspneic with activity. This is a progressive disease and she has a very grim overall prognosis.
[2019-12-28] MEDS: Fluconazole 100 MG Tab PO SCH (11:16)
[2019-12-28] MEDS ORDERED: Magnesium Sulfate/Water 4 GM in Premix Bag 1 BAG IV ONE (13:00)
--- NOTE | 2019-12-28 15:12 | PCM.PN ---
- General Info Date of Service: 12/28/19 Admission Dx/Problem (Free Text): Admission Diagnosis/Problem Admission Diagnosis/Problem Hypoxemia requiring supplemental oxygen Subjective Update: Patient states that she feels more short of breath. She complains of some increased work of breathing, and is generally feeling more tired. 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 She does not want to have any heroic measures including intubation or resuscitation. Functional Status: Reports: Pain Controlled - Review of Systems General: Reports: Fatigue HEENT: Reports: No Symptoms Pulmonary: Reports: Shortness of Breath Cardiovascular: Reports: No Symptoms Gastrointestinal: Reports: No Symptoms Musculoskeletal: Reports: No Symptoms - Patient Data Vitals - Most Recent: Last Vital Signs Temp 98.1 F 12/27/19 14:52 Pulse 81 12/28/19 08:52 Resp 22 H 12/28/19 03:00 BP 122/72 12/28/19 08:52 Pulse Ox 91 L 12/28/19 09:44 Weight - Most Recent: 139 lb 1.6 oz I&O - Last 24 Hours: Intake & Output 12/28/19 12/28/19 12/28/19 06:59 14:59 22:59 Intake Total 600 400 Output Total 3450 800 Balance -2850 -400 Lab Results Last 24 Hours: Laboratory Results - last 24 hr 12/26/19 12/28/19 12/28/19 Range/Units 11:32 05:25 05:25 WBC 12.48 H (3.98-10.04) K/mm3 RBC 3.25 L (3.98-5.22) M/mm3 Hgb 9.1 L D (11.2-15.7) gm/dl Hct 31.3 L (34.1-44.9) % MCV 96.3 H D (79.4-94.8) fl MCH 28.0 (25.6-32.2) pg MCHC 29.1 L (32.2-35.5) g/dl RDW Std Deviation 46.0 (36.4-46.3) fL Plt Count 489 H D (182-369) K/mm3 MPV 9.7 (9.4-12.3) fl Neut % (Auto) 77.8 H (34.0-71.1) % Lymph % (Auto) 10.7 L (19.3-51.7) % [place] % (Auto) 9.4 (4.7-12.5) % Eos % (Auto) 0.1 L (0.7-5.8) Baso % (Auto) 0.2 (0.1-1.2) % Neut # (Auto) 9.71 H (1.56-6.13) K/mm3 Lymph # (Auto) 1.34 (1.18-3.74) K/mm3 [place] # (Auto) 1.17 H (0.24-0.36) K/mm3 Eos # (Auto) 0.01 L (0.04-0.36) K/mm3 Baso # (Auto) 0.02 (0.01-0.08) K/mm3 Manual Slide Review Abnormal smear Puncture Site ABG pH (7.35-7.45) ABG pCO2 (35.0-45.0) mmHg ABG pO2 (80.0-100.0) mmHg ABG HCO3 (22.0-26.0) meq/L ABG O2 Saturation (96.0-97.0) % ABG Base Excess (-2-2.0) Johnny Test A-a Gradient mmHg O2 Delivery Device Oxygen Flow Rate FiO2 (21.00-100.00) % Sodium 141 (136-145) mEq/L Potassium 4.7 (3.5-5.1) mEq/L Chloride 98 (98-107) mEq/L Carbon Dioxide 45 H* (21-32) mEq/L Anion Gap 2.7 L (5-15) BUN 25 H (7-18) mg/dL Creatinine 0.7 (0.55-1.02) mg/dL Est Cr Clr Drug Dosing 81.71 mL/min Estimated GFR (MDRD) > 60 (>60) mL/min BUN/Creatinine Ratio 35.7 H (14-18) Glucose 91 (74-106) mg/dL Calcium 8.0 L (8.5-10.1) mg/dL Magnesium 1.6 L (1.8-2.4) mg/dl Total Bilirubin 0.1 L (0.2-1.0) mg/dL AST 20 (15-37) U/L ALT 47 (14-59) U/L Alkaline Phosphatase 56 (46-116) U/L Total Protein 4.8 L (6.4-8.2) g/dl Albumin 2.3 L (3.4-5.0) g/dl Globulin 2.5 gm/dL Albumin/Globulin Ratio 0.9 L (1-2) Procalcitonin 0.07 (<0.10) ng/mL 12/28/19 Range/Units 08:42 WBC (3.98-10.04) K/mm3 RBC (3.98-5.22) M/mm3 Hgb (11.2-15.7) gm/dl Hct (34.1-44.9) % MCV (79.4-94.8) fl MCH (25.6-32.2) pg MCHC (32.2-35.5) g/dl RDW Std Deviation (36.4-46.3) fL Plt Count (182-369) K/mm3 MPV (9.4-12.3) fl Neut % (Auto) (34.0-71.1) % Lymph % (Auto) (19.3-51.7) % [place] % (Auto) (4.7-12.5) % Eos % (Auto) (0.7-5.8) Baso % (Auto) (0.1-1.2) % Neut # (Auto) (1.56-6.13) K/mm3 Lymph # (Auto) (1.18-3.74) K/mm3 [place] # (Auto) (0.24-0.36) K/mm3 Eos # (Auto) (0.04-0.36) K/mm3 Baso # (Auto) (0.01-0.08) K/mm3 Manual Slide Review Puncture Site Lt radial ABG pH 7.39 (7.35-7.45) ABG pCO2 79.7 H* (35.0-45.0) mmHg ABG pO2 88.0 (80.0-100.0) mmHg ABG HCO3 47.3 H (22.0-26.0) meq/L ABG O2 Saturation 92.1 L (96.0-97.0) % ABG Base Excess 19.0 H (-2-2.0) Johnny Test Positive A-a Gradient 69 mmHg O2 Delivery Device Nasal cannula Oxygen Flow Rate 4.0 FiO2 36.00 (21.00-100.00) % Sodium (136-145) mEq/L Potassium (3.5-5.1) mEq/L Chloride (98-107) mEq/L Carbon Dioxide (21-32) mEq/L Anion Gap (5-15) BUN (7-18) mg/dL Creatinine (0.55-1.02) mg/dL Est Cr Clr Drug Dosing mL/min Estimated GFR (MDRD) (>60) mL/min BUN/Creatinine Ratio (14-18) Glucose (74-106) mg/dL Calcium (8.5-10.1) mg/dL Magnesium (1.8-2.4) mg/dl Total Bilirubin (0.2-1.0) mg/dL AST (15-37) U/L ALT (14-59) U/L Alkaline Phosphatase (46-116) U/L Total Protein (6.4-8.2) g/dl Albumin (3.4-5.0) g/dl Globulin gm/dL Albumin/Globulin Ratio (1-2) Procalcitonin (<0.10) ng/mL Med Orders - Current: Current Medications Hydrocodone Bitart/Acetaminophen (Collins 325-5 Mg) 1 tab PO Q6H PRN PRN Reason: Pain Last Admin: 12/28/19 11:15 Dose: 1 tab Alprazolam (Xanax) 1 mg PO BID PRN PRN Reason: Anxiety Last Admin: 12/28/19 08:53 Dose: 1 mg Budesonide (Pulmicort) 0.5 mg NEB BIDRT PRN PRN Reason: Other Last Admin: 12/27/19 21:53 Dose: 0.5 mg Diphenhydr/Magaldrate/Simeth/Lidoca (First-Mouthwash Blm Susp) 30 ml PO TID SHAUN Last Admin: 12/28/19 15:08 Dose: 30 ml Docusate Sodium (Colace) 100 mg PO BID PRN PRN Reason: Constipation Last Admin: 12/21/19 08:31 Dose: 100 mg Enoxaparin Sodium (Lovenox) 40 mg SUBCUT DAILY [facility] Last Admin: 12/28/19 08:55 Dose: 40 mg Fluconazole (Diflucan) 100 mg PO Q24H [facility] Last Admin: 12/28/19 11:16 Dose: 100 mg Guaifenesin (Mucinex) 600 mg PO TID [facility] Last Admin: 12/28/19 15:08 Dose: 600 mg Hydralazine HCl (Apresoline) 10 mg IVPUSH Q2H PRN PRN Reason: Hypertension Last Admin: 12/18/19 16:16 Dose: 10 mg Hydrochlorothiazide (Hydrochlorothiazide) 25 mg PO DAILY [facility] Last Admin: 12/28/19 08:54 Dose: 25 mg Magnesium Sulfate 4 gm/ Premix 50 mls @ 12.5 mls/hr IV ONETIME ONE Stop: 12/28/19 16:59 Last Admin: 12/28/19 12:09 Dose: 12.5 mls/hr Ipratropium [place] (Atrovent) 0.5 mg NEB Q8HRRT PRN PRN Reason: Other Last Admin: 12/27/19 21:53 Dose: 0.5 mg Magnesium Oxide (Magnesium Oxide) 400 mg PO BID [facility] Methylprednisolone (Medrol) 12 mg PO ONETIME ONE Stop: 12/29/19 09:01 Methylprednisolone (Medrol) 8 mg PO ONETIME ONE Stop: 12/30/19 09:01 Methylprednisolone (Medrol) 4 mg PO ONETIME ONE Stop: 12/31/19 09:01 Metoprolol Tartrate (Lopressor) 50 mg PO BID [facility] Last Admin: 12/28/19 08:52 Dose: 50 mg Mirtazapine (Remeron) 30 mg PO BEDTIME [facility] Last Admin: 12/27/19 21:08 Dose: 30 mg Morphine Sulfate (Morphine) 1 mg IVPUSH ONETIME PRN PRN Reason: Pain Ondansetron HCl (Zofran Odt) 4 mg PO Q6H PRN PRN Reason: nausea, able to take PO Ondansetron HCl (Zofran) 4 mg IV Q6H PRN PRN Reason: Nausea/Vomiting Senna (Senna) 8.6 mg PO BID [facility] Last Admin: 12/28/19 08:53 Dose: Not Given Trimethoprim/Sulfamethoxazole (Septra Ds) 1 tab PO BID [facility] Last Admin: 12/28/19 08:53 Dose: 1 tab Trolamine Salicylate (Aspercreme 10%) 0 gm TOP Q4HR PRN PRN Reason: Pain Discontinued Medications Acetaminophen/Codeine Phosphate (Tylenol With Codeine No.3 300mg/30mg) 1 tab PO Q6H PRN PRN Reason: Pain (severe 7-10) Last Admin: 12/18/19 14:13 Dose: 1 tab Azithromycin (Zithromax) 500 mg PO BEDTIME SHAUN Stop: 12/18/19 21:01 Last Admin: 12/18/19 21:05 Dose: 500 mg Budesonide (Pulmicort) 0.5 mg NEB BIDRT SHAUN Last Admin: 12/26/19 06:33 Dose: Not Given Calcium Gluconate (Calcium Gluconate) 1 gm IVPUSH ONETIME ONE Stop: 12/25/19 18:18 Last Admin: 12/25/19 19:21 Dose: 1 gm Dextrose/Water (Dextrose 50% In Water) 50 ml IVPUSH ONETIME ONE Stop: 12/25/19 18:41 Last Admin: 12/25/19 19:38 Dose: 50 ml Etomidate (Amidate) 40 mg IVPUSH .STK-MED ONE Stop: 12/14/19 23:41 Fluconazole (Diflucan) 200 mg PO ONETIME ONE Stop: 12/26/19 12:01 Last Admin: 12/26/19 11:57 Dose: 200 mg Furosemide (Lasix) 40 mg IVPUSH NOW ONE Stop: 12/27/19 13:31 Last Admin: 12/27/19 14:24 Dose: 40 mg Haloperidol Lactate (Haldol) 5 mg IVPUSH ONETIME ONE Stop: 12/17/19 09:01 Last Admin: 12/17/19 09:11 Dose: 5 mg Heparin Sodium (Porcine) (Heparin Lock Flush 100 Units/Ml) Confirm Administered Dose 500 units .ROUTE .STK-MED ONE Stop: 12/17/19 18:27 Last Admin: 12/17/19 20:01 Dose: Not Given Hydromorphone HCl (Dilaudid) 0.25 mg IVPUSH ONETIME ONE Stop: 12/14/19 21:24 Last Admin: 12/14/19 21:43 Dose: 0.25 mg Sodium Chloride (Normal Saline) 1,000 mls @ 150 mls/hr IV ASDIRECTED [facility] Last Infusion: 12/16/19 09:23 Dose: 250 mls/hr Azithromycin 500 mg/ Sodium (Chloride) 250 mls @ 250 mls/hr IV Q24H [facility] Stop: 12/18/19 23:30 Last Admin: 12/17/19 21:16 Dose: 250 mls/hr Ceftriaxone Sodium 2 gm/ (Sodium Chloride) 100 mls @ 200 mls/hr IV Q24H [facility] Last Admin: 12/14/19 23:32 Dose: 200 mls/hr Propofol (Diprivan 100 Ml) Confirm Administered Dose 100 mls @ as directed .ROUTE .STK-MED ONE Stop: 12/15/19 00:02 Last Admin: 12/15/19 00:23 Dose: Not Given Propofol (Diprivan 100 Ml) 100 mls @ 1.463 mls/hr IV TITRATE SHAUN; Protocol Last Admin: 12/16/19 02:10 Dose: 32 mcg/kg/min, 9.362 mls/hr Norepinephrine Bitartrate 4 mg (/ Dextrose/Water) 250 mls @ 7.5 mls/hr IV TITRATE SHAUN; Protocol Ceftriaxone Sodium 2 gm/ (Sodium Chloride) 100 mls @ 200 mls/hr IV Q24H [facility] Last Admin: 12/15/19 22:38 Dose: 200 mls/hr Magnesium Sulfate 2 gm/ Premix 50 mls @ 25 mls/hr IV ONETIME ONE Stop: 12/15/19 09:59 Last Admin: 12/15/19 08:03 Dose: 25 mls/hr Magnesium Sulfate (Magnesium Sulfate In Water Premix) Confirm Administered Dose 50 mls @ as directed .ROUTE .STK-MED ONE Stop: 12/15/19 07:56 Last Admin: 12/15/19 08:02 Dose: Not Given Midazolam HCl 100 mg/ Sodium (Chloride) 100 mls @ 0.5 mls/hr IV ASDIRECTED [facility] Last Infusion: 12/15/19 17:38 Dose: 5 mls/hr Midazolam HCl 50 mg/ Sodium (Chloride) 50 mls @ 2.44 mls/hr IV TITRATE SHAUN; Protocol Lactated Ringer's (Ringers, Lactated) 1,000 mls @ 250 mls/hr IV ASDIRECTED [facility] Last Infusion: 12/16/19 20:44 Dose: 150 mls/hr Lactated Ringer's (Ringers, Lactated) 1,000 mls @ 150 mls/hr IV ASDIRECTED [facility] Last Admin: 12/17/19 08:35 Dose: 150 mls/hr Sodium Chloride (Normal Saline) Confirm Administered Dose 1,000 mls @ as directed .ROUTE .STK-MED ONE Stop: 12/17/19 17:24 Last Admin: 12/17/19 20:01 Dose: Not Given Magnesium Sulfate 4 gm/ Premix 100 mls @ 25 mls/hr IV ONETIME ONE Stop: 12/17/19 23:59 Last Admin: 12/17/19 20:20 Dose: 25 mls/hr Potassium Phosphate 30 mmole/ (Sodium Chloride) 510 mls @ 102 mls/hr IV Q5H [facility] Stop: 12/19/19 21:59 Last Admin: 12/19/19 17:14 Dose: Not Given Magnesium Sulfate 2 gm/ Premix 50 mls @ 25 mls/hr IV Q1H [facility] Stop: 12/24/19 12:44 Last Admin: 12/24/19 12:07 Dose: 25 mls/hr Sodium Phosphate 30 mmole/ (Sodium Chloride) 260 mls @ 86.667 mls/hr IV ONETIME ONE Stop: 12/24/19 12:01 Last Admin: 12/24/19 14:03 Dose: 86.667 mls/hr Sodium Phosphate 30 mmole/ (Sodium Chloride) 260 mls @ 130 mls/hr IV Q2H [facility] Stop: 12/25/19 18:59 Last Admin: 12/25/19 19:19 Dose: 130 mls/hr Magnesium Sulfate 2 gm/ Premix 50 mls @ 25 mls/hr IV ONETIME ONE Stop: 12/26/19 10:59 Last Admin: 12/26/19 08:49 Dose: 25 mls/hr Insulin Human Regular (Humulin R) 10 unit IV ONETIME ONE Stop: 12/25/19 18:20 Last Admin: 12/25/19 19:36 Dose: 10 unit Ipratropium [place] (Atrovent) 0.5 mg NEB Q8HRRT [facility] Last Admin: 12/26/19 06:33 Dose: Not Given Ketorolac Tromethamine (Toradol) 15 mg IM Q6H PRN PRN Reason: Pain (moderate 4-6) Ketorolac Tromethamine (Toradol) 15 mg IM Q6H PRN PRN Reason: Pain (moderate 4-6) Ketorolac Tromethamine (Toradol) 15 mg IVPUSH Q6H PRN PRN Reason: Pain (moderate 4-6) Last Admin: 12/25/19 20:47 Dose: 15 mg Lorazepam (Ativan) 1 mg IVPUSH ONETIME ONE Stop: 12/20/19 10:38 Last Admin: 12/20/19 11:00 Dose: 1 mg Magnesium Oxide (Magnesium Oxide) 400 mg PO DAILY [facility] Last Admin: 12/28/19 08:53 Dose: 400 mg Methylprednisolone (Medrol) 24 mg PO ONETIME ONE Stop: 12/26/19 09:01 Last Admin: 12/26/19 08:36 Dose: 24 mg Methylprednisolone (Medrol) 20 mg PO ONETIME ONE Stop: 12/27/19 09:01 Last Admin: 12/27/19 08:22 Dose: 20 mg Methylprednisolone (Medrol) 16 mg PO ONETIME ONE Stop: 12/28/19 09:01 Last Admin: 12/28/19 08:54 Dose: 16 mg Methylprednisolone Sodium Succinate (Solu-Medrol) 125 mg IVPUSH Q12H [facility] Last Admin: 12/21/19 10:40 Dose: 125 mg Methylprednisolone Sodium Succinate (Solu-Medrol) 80 mg IVPUSH Q12H [facility] Last Admin: 12/22/19 09:42 Dose: 80 mg Methylprednisolone Sodium Succinate (Solu-Medrol) 40 mg IVPUSH Q12H [facility] Last Admin: 12/25/19 08:44 Dose: 40 mg Metoprolol Tartrate (Lopressor) 2.5 mg IVPUSH ONETIME ONE Stop: 12/15/19 06:06 Last Admin: 12/15/19 06:13 Dose: 2.5 mg Metoprolol Tartrate (Lopressor) 2.5 mg IVPUSH Q12HR [facility] Last Admin: 12/18/19 07:59 Dose: 2.5 mg Metoprolol Tartrate (Lopressor) 10 mg IVPUSH ONETIME ONE Stop: 12/18/19 17:21 Last Admin: 12/18/19 17:00 Dose: 10 mg Morphine Sulfate (Morphine) 1 mg IVPUSH Q4H PRN PRN Reason: Pain (severe 7-10) Stop: 12/15/19 22:06 Morphine Sulfate (Morphine) 1 mg IVPUSH ONETIME ONE Stop: 12/20/19 09:24 Last Admin: 12/20/19 09:35 Dose: 1 mg Morphine Sulfate (Morphine) 1 mg IVPUSH ONETIME ONE Stop: 12/20/19 11:01 Last Admin: 12/20/19 11:30 Dose: 1 mg Morphine Sulfate (Morphine) 1 mg IVPUSH Q8H PRN PRN Reason: Pain (severe 7-10) Last Admin: 12/22/19 14:41 Dose: 1 mg Morphine Sulfate (Morphine) 1 mg IVPUSH ONETIME PRN PRN Reason: Pain Nystatin (Nystatin Oral Syringe) 5 unit PO QID [facility] Last Admin: 12/20/19 20:31 Dose: 5 unit Nystatin (Nystatin Oral Syringe) 500,000 unit PO QID [facility] Last Admin: 12/26/19 08:36 Dose: 500,000 unit Ondansetron HCl (Zofran) 4 mg IVPUSH ONETIME ONE Stop: 12/14/19 21:23 Last Admin: 12/14/19 21:43 Dose: 4 mg Pantoprazole Sodium (Protonix Iv) 40 mg IVPUSH DAILY@0600 [facility] Last Admin: 12/18/19 06:13 Dose: 40 mg Potassium Chloride (Klor-Con M20) 40 meq PO BID [facility] Stop: 12/19/19 21:01 Last Admin: 12/19/19 20:19 Dose: 40 meq Quetiapine Fumarate (Seroquel) 100 mg PO ONETIME ONE Stop: 12/17/19 21:01 Last Admin: 12/17/19 20:21 Dose: 100 mg Succinylcholine Chloride (Quelicin) 200 mg .ROUTE .STK-MED ONE Stop: 12/14/19 23:41 Triamterene/HCTZ (Dyazide 25-37.5 Mg) 1 each PO DAILY [facility] Last Admin: 12/25/19 08:44 Dose: 1 each - Exam Quality Assessment: Supplemental Oxygen General: Alert, Oriented HEENT: Pupils Equal, Mucous Membr. Moist/[place] Neck: Supple Lungs: Decreased Breath Sounds. No: Normal Respiratory Effort Cardiovascular: Regular Rate, Regular Rhythm Extremities: Normal Inspection, Normal Range of Motion, Non-Tender, No Pedal Edema Psy/Mental Status: Alert, Normal Affect, Normal Mood Sepsis Event Note - Evaluation Sepsis Screening Result: No Definite Risk - Focused Exam Vital Signs: Vital Signs Pulse BP Pulse Ox 12/28/19 09:44 91 L 12/28/19 09:04 86 L 12/28/19 08:52 81 122/72 Date Exam was Performed: 12/28/19 Time Exam was Performed: 16:27 - Problem List Review Problem List Initiated/Reviewed/Updated: Yes - My Orders Last 24 Hours: My Active Orders 12/28/19 09:03 Oxygen Therapy [RC] ASDIRECTED - Plan Plan:: ASSESSMENT BY DAY Day 1 - Patient came in to ED for worsening shortness of breath--> placed on BiPAP--> admitted to ICU on BIPAP - Mental status declined and PCO2>100 + pH 7.1--> Intubated - Sedated with Versed and propofol - Tachycardic, requires IV metoprolol - Started on Rocephin, azithromycin and Tamiflu Day 2 - Intubated - Significant improvement in WBC - Sedation vacation --> patient got agitated - Failed SBT Day3 - Procalcitonin elevated - Respiratory panel + for RSV and mycoplasma - Discontinued Tamiflu and Rocephin - Kept O2 sat > 95% with FiO2 of 45% - Urine output decreased significantly to 540/24 hrs--> responded to fluid bolus Day 4 - Extubated - Transitioned to BiPAP - Attempted hi-flow but patient is a mouth breather and SatO2 < low 80's - Minimal improvement in UO--> Lasix - Significant hallucinations overnight with delirium, no physical agitation Day 5 - UO increased with single dose of Lasix - Completing azithromycin day 5 - Very limited movement due to drop in O2 saturation with minimal movement including leaning forward and just moving head or hands - Unable to perform ADLs due to shortness of breath Day 6 - Advance diet to regular - Dietary giving high protein custard and 4oz of ensure TID - PT recommending home health with increased services - Tolerated CPAP overnight well Day 7 - Procalcitonin trending down - No BM yet - Eating better - Passive range of motion with PT - Used BiPAP all night - Reduce Solumedrol dose - Oral candidiasis with concern for esophageal, will consult surgery to evaluate EGD feasibility - Lactulose q6h until BM Day 8 - Slept OK - BM today - Decreased Solumedrol dose - PT recommending front wheel walker, transfer tub, wheelchair - Start Nystatin - Anesthesia recommended to defer EGD for after patient has been discharged from this hospitalization - OK to downgrade to medical floor Day 9 - Sputum culture confirmed with Nocardia - Started Bactrim - Clinically improved and stable - NC at 4L throughout - Decrease Solumedrol dose Day 10 - Restart home medications - Slept through the night - Exhibiting drug seeking behavior with morphine - Discussed importance of discontinuing opioids for pain control - PRN Toradol for pain Day 11 - Complaining of sore throat, started on magic mouth wash - K is 5.3 --> EKG - Phos 1.8 - Mg 1.8 - Sat > 90% with 4L NC - Sleeping great - Feels a lot better, close to baseline Day 12 - Reports feels about the same as yesterday - Requesting hospital bed for home - Magnesium low - supplement - Potassium back WNL - Eating ok - Stop Toradol - Add Diflucan, Stop nystatin - Remove tele Day13 - CO2 elevated in blood sample - ABG shows hypercapnia - CXR shows new bilateral pleural effusions - Mag 1.8 today - Phosphorous 2.3 - BM today - Day 8 of antifungal therapy - Day 9 of ABX - Eating OK - Reviewed ECHO from October - Procal - Patient changes code status to DNR/DNI, witnessed by Dr. Camacho and Charge nurse Shayna Day 14 -Serum bicarbonate continues to increase - Arterial blood gas demonstrates increased PCO2 -79 -Start high flow nasal cannula -Patient reiterates that she does not want to be intubated. - Nocardia Cyriacigeorgica on sputum culture PLAN BY SYSTEMS Neurologic: Monitor mental status Avoid interactions during the night Home Ativan Respiratory: Start high flow NC when not on CPAP Atrovent q8h Budesonide q12 PO Medrol dose pack -pharmacy to dose Guaifenesin TID CPAP Cardiovascular: Metoprolol PO, scheduled HCTZ home dose Trend BP and start medication if required PRN hydralazine for BP > 180/100 Lasix 40mg IVP x1 Renal and Electrolytes: Discontinued sanderson catheter Monitor urine output GI and hepatology: Regular diet 4oz Ensure TID Scheduled Senna Mirtazapine Fluconazole for yeast in UC Endocrine and Metabolism: Monitor glucose on daily labs Infectious Disease Continue Nystatin swallow Continue Bactrim, day 6 Monitor temp and panculture if greater than 99.2 Procalcitonin 0.05 Start fluconazole Hematology, Oncology and Immune system: No signs of active bleeding Goal Hb >7 PROPHYLAXIS DVT- Lovenox GI- not indicated CODE STATUS: On 12/27/19 patient changed code status to DNR/DNI. Prognosis is very poor. She has had a increase in her PCO2 overnight. Patient understands that she has end-stage lung disease. DISPOSITION: Patient will remain hospitalized, on medical floor for continued PT/OT and RT. Sputum culture has grown and confirmed with Nocardia, started on Bactrim, day 6. Length of stay greater than 96 hours due to suboptimal response to treatment Recommend ID follow-up after discharge Belinda is requesting a home hospital bed after discharge. She reports she has tried using pillows and a wedge but is unable to get a comfortable height. She has tried to sleep in the chair but is unable. She has pedal edema so leg elevation is recommended for her. She is well known to this service and has been hospitalized many times in the past for lung related issues. 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 She reports she spends a majority of her time in bed, essentially getting up only to utilize the restroom. She reports she spends over 75% of her time in bed. She is also requesting a wheelchair due to difficulty with ambulating and getting around her house. She becomes severely dyspneic with activity. This is a progressive disease and she has a very grim overall prognosis.
[2019-12-28] MEDS: Acetaminophen/HYDROcodone 325-5 MG Tab PO SCH ×2 (18:36→21:55)
[2019-12-28] MEDS: Mirtazapine 30 MG Tab PO SCH (21:54)
[2019-12-29] MEDS: Acetaminophen/HYDROcodone 325-5 MG Tab PO SCH ×6 (02:15→21:00)
[2019-12-29] MEDS: ALPRAZolam 1 MG Tab PO PRN ×2 (07:39→21:03)
--- NOTE | 2019-12-29 08:00 | PCM.PN ---
- General Info Date of Service: 12/29/19 Admission Dx/Problem (Free Text): Admission Diagnosis/Problem Admission Diagnosis/Problem Hypoxemia requiring supplemental oxygen Functional Status: Reports: Pain Controlled, Tolerating Diet, Ambulating, Urinating, Incentive Spirometry. Denies: New Symptoms - Review of Systems General: Reports: No Symptoms, Weakness, Fatigue, Malaise. Denies: Fever, Chills HEENT: Reports: No Symptoms. Denies: Headaches, Sore Throat Pulmonary: Reports: Shortness of Breath, Cough, Wheezing. Denies: Pleuritic Chest Pain, Sputum Cardiovascular: Reports: Dyspnea on Exertion, Edema. Denies: Chest Pain, Palpitations Gastrointestinal: Reports: No Symptoms. Denies: Abdominal Pain, Constipation, Diarrhea, Nausea, Vomiting Genitourinary: Reports: No Symptoms. Denies: Pain Musculoskeletal: Reports: No Symptoms Skin: Reports: No Symptoms. Denies: Cyanosis Neurological: Reports: Pre-Existing Deficit, Difficulty Walking, Weakness, Gait Disturbance, Other (Becomes very dyspneic with ambulaton ). Denies: Confusion Psychiatric: Reports: No Symptoms - Patient Data Vitals - Most Recent: Last Vital Signs Temp 98.0 F 12/29/19 03:00 Pulse 66 12/29/19 03:00 Resp 22 H 12/29/19 03:00 BP 131/76 12/29/19 03:00 Pulse Ox 97 12/29/19 03:00 Weight - Most Recent: 137 lb 11.2 oz I&O - Last 24 Hours: Intake & Output 12/28/19 12/29/19 12/29/19 22:59 06:59 14:59 Intake Total 270 300 Output Total 2500 Balance 270 -2200 Lab Results Last 24 Hours: Laboratory Results - last 24 hr 12/28/19 12/29/19 12/29/19 Range/Units 08:42 06:20 06:20 WBC 11.81 H (3.98-10.04) K/mm3 RBC 3.41 L (3.98-5.22) M/mm3 Hgb 9.4 L (11.2-15.7) gm/dl Hct 32.9 L (34.1-44.9) % MCV 96.5 H (79.4-94.8) fl MCH 27.6 (25.6-32.2) pg MCHC 28.6 L (32.2-35.5) g/dl RDW Std Deviation 47.2 H (36.4-46.3) fL Plt Count 466 H (182-369) K/mm3 MPV 9.6 (9.4-12.3) fl Neut % (Auto) 72.8 H (34.0-71.1) % Lymph % (Auto) 15.7 L (19.3-51.7) % [place] % (Auto) 9.1 (4.7-12.5) % Eos % (Auto) 0.2 L (0.7-5.8) Baso % (Auto) 0.2 (0.1-1.2) % Neut # (Auto) 8.61 H (1.56-6.13) K/mm3 Lymph # (Auto) 1.85 (1.18-3.74) K/mm3 [place] # (Auto) 1.07 H (0.24-0.36) K/mm3 Eos # (Auto) 0.02 L (0.04-0.36) K/mm3 Baso # (Auto) 0.02 (0.01-0.08) K/mm3 Manual Slide Review Abnormal smear Puncture Site Lt radial ABG pH 7.39 (7.35-7.45) ABG pCO2 79.7 H* (35.0-45.0) mmHg ABG pO2 88.0 (80.0-100.0) mmHg ABG HCO3 47.3 H (22.0-26.0) meq/L ABG O2 Saturation 92.1 L (96.0-97.0) % ABG Base Excess 19.0 H (-2-2.0) Johnny Test Positive A-a Gradient 69 mmHg O2 Delivery Device Nasal cannula Oxygen Flow Rate 4.0 FiO2 36.00 (21.00-100.00) % Sodium 142 (136-145) mEq/L Potassium 4.6 (3.5-5.1) mEq/L Chloride 99 (98-107) mEq/L Carbon Dioxide 45 H* (21-32) mEq/L Anion Gap 2.6 L (5-15) BUN 24 H (7-18) mg/dL Creatinine 0.7 (0.55-1.02) mg/dL Est Cr Clr Drug Dosing 81.71 mL/min Estimated GFR (MDRD) > 60 (>60) mL/min BUN/Creatinine Ratio 34.3 H (14-18) Glucose 113 H (74-106) mg/dL Calcium 8.2 L (8.5-10.1) mg/dL Magnesium 1.9 (1.8-2.4) mg/dl Med Orders - Current: Current Medications Hydrocodone Bitart/Acetaminophen ([place] 325-5 Mg) 1 tab PO Q4H [facility] Last Admin: 12/29/19 06:26 Dose: 1 tab Alprazolam (Xanax) 1 mg PO BID PRN PRN Reason: Anxiety Last Admin: 12/29/19 07:39 Dose: 1 mg Budesonide (Pulmicort) 0.5 mg NEB BIDRT PRN PRN Reason: Other Last Admin: 12/27/19 21:53 Dose: 0.5 mg Diphenhydr/Magaldrate/Simeth/Lidoca (First-Mouthwash Blm Susp) 30 ml PO TID [facility] Last Admin: 12/28/19 21:49 Dose: 30 ml Docusate Sodium (Colace) 100 mg PO BID PRN PRN Reason: Constipation Last Admin: 12/21/19 08:31 Dose: 100 mg Enoxaparin Sodium (Lovenox) 40 mg SUBCUT DAILY [facility] Last Admin: 12/28/19 08:55 Dose: 40 mg Fluconazole (Diflucan) 100 mg PO Q24H [facility] Last Admin: 12/28/19 11:16 Dose: 100 mg Guaifenesin (Mucinex) 600 mg PO TID [facility] Last Admin: 12/28/19 21:55 Dose: 600 mg Hydralazine HCl (Apresoline) 10 mg IVPUSH Q2H PRN PRN Reason: Hypertension Last Admin: 12/18/19 16:16 Dose: 10 mg Hydrochlorothiazide (Hydrochlorothiazide) 25 mg PO DAILY [facility] Last Admin: 12/28/19 08:54 Dose: 25 mg Ipratropium [place] (Atrovent) 0.5 mg NEB Q8HRRT PRN PRN Reason: Other Last Admin: 12/27/19 21:53 Dose: 0.5 mg Magnesium Oxide (Magnesium Oxide) 400 mg PO BID [facility] Last Admin: 12/28/19 21:54 Dose: 400 mg Methylprednisolone (Medrol) 12 mg PO ONETIME ONE Stop: 12/29/19 09:01 Methylprednisolone (Medrol) 8 mg PO ONETIME ONE Stop: 12/30/19 09:01 Methylprednisolone (Medrol) 4 mg PO ONETIME ONE Stop: 12/31/19 09:01 Metoprolol Tartrate (Lopressor) 50 mg PO BID [facility] Last Admin: 12/28/19 21:52 Dose: 50 mg Mirtazapine (Remeron) 30 mg PO BEDTIME [facility] Last Admin: 12/28/19 21:54 Dose: 30 mg Morphine Sulfate (Morphine) 1 mg IVPUSH ONETIME PRN PRN Reason: Pain Ondansetron HCl (Zofran Odt) 4 mg PO Q6H PRN PRN Reason: nausea, able to take PO Ondansetron HCl (Zofran) 4 mg IV Q6H PRN PRN Reason: Nausea/Vomiting Senna (Senna) 8.6 mg PO BID [facility] Last Admin: 12/28/19 22:45 Dose: Not Given Trimethoprim/Sulfamethoxazole (Septra Ds) 1 tab PO BID [facility] Last Admin: 12/28/19 21:55 Dose: 1 tab Trolamine Salicylate (Aspercreme 10%) 0 gm TOP Q4HR PRN PRN Reason: Pain Discontinued Medications Acetaminophen/Codeine Phosphate (Tylenol With Codeine No.3 300mg/30mg) 1 tab PO Q6H PRN PRN Reason: Pain (severe 7-10) Last Admin: 12/18/19 14:13 Dose: 1 tab Hydrocodone Bitart/Acetaminophen ([place] 325-5 Mg) 1 tab PO Q6H PRN PRN Reason: Pain Last Admin: 12/28/19 17:31 Dose: 1 tab Azithromycin (Zithromax) 500 mg PO BEDTIME [facility] Stop: 12/18/19 21:01 Last Admin: 12/18/19 21:05 Dose: 500 mg Budesonide (Pulmicort) 0.5 mg NEB BIDRT [facility] Last Admin: 12/26/19 06:33 Dose: Not Given Calcium Gluconate (Calcium Gluconate) 1 gm IVPUSH ONETIME ONE Stop: 12/25/19 18:18 Last Admin: 12/25/19 19:21 Dose: 1 gm Dextrose/Water (Dextrose 50% In Water) 50 ml IVPUSH ONETIME ONE Stop: 12/25/19 18:41 Last Admin: 12/25/19 19:38 Dose: 50 ml Etomidate (Amidate) 40 mg IVPUSH .STK-[facility] ONE Stop: 12/14/19 23:41 Fluconazole (Diflucan) 200 mg PO ONETIME ONE Stop: 12/26/19 12:01 Last Admin: 12/26/19 11:57 Dose: 200 mg Furosemide (Lasix) 40 mg IVPUSH NOW ONE Stop: 12/27/19 13:31 Last Admin: 12/27/19 14:24 Dose: 40 mg Haloperidol Lactate (Haldol) 5 mg IVPUSH ONETIME ONE Stop: 12/17/19 09:01 Last Admin: 12/17/19 09:11 Dose: 5 mg Heparin Sodium (Porcine) (Heparin Lock Flush 100 Units/Ml) Confirm Administered Dose 500 units .ROUTE .[facility] ONE Stop: 12/17/19 18:27 Last Admin: 12/17/19 20:01 Dose: Not Given Hydromorphone HCl (Dilaudid) 0.25 mg IVPUSH ONETIME ONE Stop: 12/14/19 21:24 Last Admin: 12/14/19 21:43 Dose: 0.25 mg Sodium Chloride (Normal Saline) 1,000 mls @ 150 mls/hr IV ASDIRECTED [facility] Last Infusion: 12/16/19 09:23 Dose: 250 mls/hr Azithromycin 500 mg/ Sodium (Chloride) 250 mls @ 250 mls/hr IV Q24H [facility] Stop: 12/18/19 23:30 Last Admin: 12/17/19 21:16 Dose: 250 mls/hr Ceftriaxone Sodium 2 gm/ (Sodium Chloride) 100 mls @ 200 mls/hr IV Q24H [facility] Last Admin: 12/14/19 23:32 Dose: 200 mls/hr Propofol (Diprivan 100 Ml) Confirm Administered Dose 100 mls @ as directed .ROUTE .[facility] ONE Stop: 12/15/19 00:02 Last Admin: 12/15/19 00:23 Dose: Not Given Propofol (Diprivan 100 Ml) 100 mls @ 1.463 mls/hr IV TITRATE [facility]; Protocol Last Admin: 12/16/19 02:10 Dose: 32 mcg/kg/min, 9.362 mls/hr Norepinephrine Bitartrate 4 mg (/ Dextrose/Water) 250 mls @ 7.5 mls/hr IV TITRATE [facility]; Protocol Ceftriaxone Sodium 2 gm/ (Sodium Chloride) 100 mls @ 200 mls/hr IV Q24H [facility] Last Admin: 12/15/19 22:38 Dose: 200 mls/hr Magnesium Sulfate 2 gm/ Premix 50 mls @ 25 mls/hr IV ONETIME ONE Stop: 12/15/19 09:59 Last Admin: 12/15/19 08:03 Dose: 25 mls/hr Magnesium Sulfate (Magnesium Sulfate In Water Premix) Confirm Administered Dose 50 mls @ as directed .ROUTE .[facility] ONE Stop: 12/15/19 07:56 Last Admin: 12/15/19 08:02 Dose: Not Given Midazolam HCl 100 mg/ Sodium (Chloride) 100 mls @ 0.5 mls/hr IV ASDIRECTED [facility] Last Infusion: 12/15/19 17:38 Dose: 5 mls/hr Midazolam HCl 50 mg/ Sodium (Chloride) 50 mls @ 2.44 mls/hr IV TITRATE [facility]; Protocol Lactated Ringer's (Ringers, Lactated) 1,000 mls @ 250 mls/hr IV ASDIRECTED [facility] Last Infusion: 12/16/19 20:44 Dose: 150 mls/hr Lactated Ringer's (Ringers, Lactated) 1,000 mls @ 150 mls/hr IV ASDIRECTED [facility] Last Admin: 12/17/19 08:35 Dose: 150 mls/hr Sodium Chloride (Normal Saline) Confirm Administered Dose 1,000 mls @ as directed .ROUTE .[facility] ONE Stop: 12/17/19 17:24 Last Admin: 12/17/19 20:01 Dose: Not Given Magnesium Sulfate 4 gm/ Premix 100 mls @ 25 mls/hr IV ONETIME ONE Stop: 12/17/19 23:59 Last Admin: 12/17/19 20:20 Dose: 25 mls/hr Potassium Phosphate 30 mmole/ (Sodium Chloride) 510 mls @ 102 mls/hr IV Q5H [facility] Stop: 12/19/19 21:59 Last Admin: 12/19/19 17:14 Dose: Not Given Magnesium Sulfate 2 gm/ Premix 50 mls @ 25 mls/hr IV Q1H [facility] Stop: 12/24/19 12:44 Last Admin: 12/24/19 12:07 Dose: 25 mls/hr Sodium Phosphate 30 mmole/ (Sodium Chloride) 260 mls @ 86.667 mls/hr IV ONETIME ONE Stop: 12/24/19 12:01 Last Admin: 12/24/19 14:03 Dose: 86.667 mls/hr Sodium Phosphate 30 mmole/ (Sodium Chloride) 260 mls @ 130 mls/hr IV Q2H [facility] Stop: 12/25/19 18:59 Last Admin: 12/25/19 19:19 Dose: 130 mls/hr Magnesium Sulfate 2 gm/ Premix 50 mls @ 25 mls/hr IV ONETIME ONE Stop: 12/26/19 10:59 Last Admin: 12/26/19 08:49 Dose: 25 mls/hr Magnesium Sulfate 4 gm/ Premix 50 mls @ 12.5 mls/hr IV ONETIME ONE Stop: 12/28/19 16:59 Last Admin: 12/28/19 12:09 Dose: 12.5 mls/hr Insulin Human Regular (Humulin R) 10 unit IV ONETIME ONE Stop: 12/25/19 18:20 Last Admin: 12/25/19 19:36 Dose: 10 unit Ipratropium [place] (Atrovent) 0.5 mg NEB Q8HRRT [facility] Last Admin: 12/26/19 06:33 Dose: Not Given Ketorolac Tromethamine (Toradol) 15 mg IM Q6H PRN PRN Reason: Pain (moderate 4-6) Ketorolac Tromethamine (Toradol) 15 mg IM Q6H PRN PRN Reason: Pain (moderate 4-6) Ketorolac Tromethamine (Toradol) 15 mg IVPUSH Q6H PRN PRN Reason: Pain (moderate 4-6) Last Admin: 12/25/19 20:47 Dose: 15 mg Lorazepam (Ativan) 1 mg IVPUSH ONETIME ONE Stop: 12/20/19 10:38 Last Admin: 12/20/19 11:00 Dose: 1 mg Magnesium Oxide (Magnesium Oxide) 400 mg PO DAILY [facility] Last Admin: 12/28/19 08:53 Dose: 400 mg Methylprednisolone (Medrol) 24 mg PO ONETIME ONE Stop: 12/26/19 09:01 Last Admin: 12/26/19 08:36 Dose: 24 mg Methylprednisolone (Medrol) 20 mg PO ONETIME ONE Stop: 12/27/19 09:01 Last Admin: 12/27/19 08:22 Dose: 20 mg Methylprednisolone (Medrol) 16 mg PO ONETIME ONE Stop: 12/28/19 09:01 Last Admin: 12/28/19 08:54 Dose: 16 mg Methylprednisolone Sodium Succinate (Solu-Medrol) 125 mg IVPUSH Q12H [facility] Last Admin: 12/21/19 10:40 Dose: 125 mg Methylprednisolone Sodium Succinate (Solu-Medrol) 80 mg IVPUSH Q12H [facility] Last Admin: 12/22/19 09:42 Dose: 80 mg Methylprednisolone Sodium Succinate (Solu-Medrol) 40 mg IVPUSH Q12H [facility] Last Admin: 12/25/19 08:44 Dose: 40 mg Metoprolol Tartrate (Lopressor) 2.5 mg IVPUSH ONETIME ONE Stop: 12/15/19 06:06 Last Admin: 12/15/19 06:13 Dose: 2.5 mg Metoprolol Tartrate (Lopressor) 2.5 mg IVPUSH Q12HR [facility] Last Admin: 12/18/19 07:59 Dose: 2.5 mg Metoprolol Tartrate (Lopressor) 10 mg IVPUSH ONETIME ONE Stop: 12/18/19 17:21 Last Admin: 12/18/19 17:00 Dose: 10 mg Morphine Sulfate (Morphine) 1 mg IVPUSH Q4H PRN PRN Reason: Pain (severe 7-10) Stop: 12/15/19 22:06 Morphine Sulfate (Morphine) 1 mg IVPUSH ONETIME ONE Stop: 12/20/19 09:24 Last Admin: 12/20/19 09:35 Dose: 1 mg Morphine Sulfate (Morphine) 1 mg IVPUSH ONETIME ONE Stop: 12/20/19 11:01 Last Admin: 12/20/19 11:30 Dose: 1 mg Morphine Sulfate (Morphine) 1 mg IVPUSH Q8H PRN PRN Reason: Pain (severe 7-10) Last Admin: 12/22/19 14:41 Dose: 1 mg Morphine Sulfate (Morphine) 1 mg IVPUSH ONETIME PRN PRN Reason: Pain Nystatin (Nystatin Oral Syringe) 5 unit PO QID [facility] Last Admin: 12/20/19 20:31 Dose: 5 unit Nystatin (Nystatin Oral Syringe) 500,000 unit PO QID [facility] Last Admin: 12/26/19 08:36 Dose: 500,000 unit Ondansetron HCl (Zofran) 4 mg IVPUSH ONETIME ONE Stop: 12/14/19 21:23 Last Admin: 12/14/19 21:43 Dose: 4 mg Pantoprazole Sodium (Protonix Iv) 40 mg IVPUSH DAILY@0600 [facility] Last Admin: 12/18/19 06:13 Dose: 40 mg Potassium Chloride (Klor-Con M20) 40 meq PO BID [facility] Stop: 12/19/19 21:01 Last Admin: 12/19/19 20:19 Dose: 40 meq Quetiapine Fumarate (Seroquel) 100 mg PO ONETIME ONE Stop: 12/17/19 21:01 Last Admin: 12/17/19 20:21 Dose: 100 mg Succinylcholine Chloride (Quelicin) 200 mg .ROUTE .[facility] ONE Stop: 12/14/19 23:41 Triamterene/HCTZ (Dyazide 25-37.5 Mg) 1 each PO DAILY [facility] Last Admin: 12/25/19 08:44 Dose: 1 each - Exam Quality Assessment: Supplemental Oxygen (5L), DVT Prophylaxis General: Alert, Oriented, Cooperative, Mild Distress (looks short of breath ) HEENT: Pupils Equal, Pupils Reactive, Mucous Membr. Moist/[place] Neck: Supple, Trachea Midline Lungs: Decreased Breath Sounds (minimal air movement ), Wheezing (end- expiratory ). No: Crackles, Rales, Rhonchi Cardiovascular: Regular Rate, Regular Rhythm GI/Abdominal Exam: Normal Bowel Sounds, Soft, Non-Tender, No Distention (Female) Exam: Deferred Back Exam: Normal Inspection, Full Range of Motion Extremities: Normal Inspection, Normal Range of Motion, Non-Tender, Normal Capillary Refill, Pedal Edema Peripheral Pulses: 3+: Radial (L), Radial (R), Dorsalis Pedis (L), Dorsalis Pedis (R) Skin: Warm, Dry, Intact Neurological: No New Focal Deficit Psy/Mental Status: Alert, Normal Affect, Normal Mood Sepsis Event Note - Evaluation Sepsis Screening Result: No Definite Risk - Focused Exam Vital Signs: Vital Signs Temp Pulse Pulse Resp BP BP BP 12/29/19 03:00 98.0 F 66 22 H 131/76 12/28/19 21:52 87 129/81 12/28/19 21:00 98.0 F 89 22 H 129/81 Pulse Ox 12/29/19 03:00 97 12/28/19 21:52 12/28/19 21:00 92 L Date Exam was Performed: 12/29/19 Time Exam was Performed: 13:19 - Problem List & Annotations (1) Acute delirium SNOMED Code(s): 1677249, 5934928 Code(s): R41.0 - DISORIENTATION, UNSPECIFIED Status: Resolved Current Visit: Yes (2) Chronic respiratory acidosis SNOMED Code(s): 5582307 Code(s): E87.2 - ACIDOSIS Status: Acute Current Visit: Yes (3) Elevated troponin SNOMED Code(s): 358225524, 823729199, 653783307 Code(s): R79.89 - OTHER SPECIFIED ABNORMAL FINDINGS OF BLOOD CHEMISTRY Status: Acute Current Visit: Yes (4) End stage COPD SNOMED Code(s): 073325028 Code(s): J44.9 - CHRONIC OBSTRUCTIVE PULMONARY DISEASE, UNSPECIFIED Status : Acute Current Visit: Yes (5) Hypoalbuminemia SNOMED Code(s): 485678933 Code(s): E88.09 - OTH DISORDERS OF PLASMA-PROTEIN METABOLISM, NEC Status: Acute Current Visit: Yes (6) Hypochloremia SNOMED Code(s): 84416625 Code(s): E87.8 - OTH DISORDERS OF ELECTROLYTE AND FLUID BALANCE, NEC Status : Acute Current Visit: Yes (7) Hypophosphatemia SNOMED Code(s): 9076640 Code(s): E83.39 - OTHER DISORDERS OF PHOSPHORUS METABOLISM Status: Resolved Current Visit: Yes (8) Leukocytosis SNOMED Code(s): 691972459, 697535600 Code(s): D72.829 - ELEVATED WHITE BLOOD CELL COUNT, UNSPECIFIED Status: Acute Current Visit: Yes (9) Nocardial pneumonia SNOMED Code(s): 234388851 Code(s): A43.0 - PULMONARY NOCARDIOSIS Status: Acute Current Visit: Yes (10) Opioid dependence SNOMED Code(s): 94525775 Code(s): F11.20 - OPIOID DEPENDENCE, UNCOMPLICATED Status: Acute Current Visit: Yes (11) Pneumonia SNOMED Code(s): 274888524 Code(s): J18.9 - PNEUMONIA, UNSPECIFIED ORGANISM Status: Acute Current Visit: Yes Qualifiers: Pneumonia type: due to unspecified organism Laterality: right Lung location: lower lobe of lung Qualified Code(s): J18.9 - Pneumonia, unspecified organism (12) Pulmonary cachexia due to COPD SNOMED Code(s): 561341868 Code(s): J44.9 - CHRONIC OBSTRUCTIVE PULMONARY DISEASE, UNSPECIFIED; R64 - CACHEXIA Status: Acute Current Visit: Yes (13) RSV infection SNOMED Code(s): 92496883 Code(s): B97.4 - RESPIRATORY SYNCYTIAL VIRUS CAUSING DISEASES CLASSD ELSWHR Status: Acute Current Visit: Yes (14) Respiratory failure with hypoxia and hypercapnia SNOMED Code(s): 53201604 Code(s): J96.91 - RESPIRATORY FAILURE, UNSPECIFIED WITH HYPOXIA; J96.92 - RESPIRATORY FAILURE, UNSPECIFIED WITH HYPERCAPNIA Status: Acute Current Visit: Yes Qualifiers: Chronicity: acute on chronic Qualified Code(s): J96.21 - Acute and chronic respiratory failure with hypoxia; J96.22 - Acute and chronic respiratory failure with hypercapnia (15) Severe malnutrition SNOMED Code(s): 30846800 Code(s): E43 - UNSPECIFIED SEVERE PROTEIN-CALORIE MALNUTRITION Status: Acute Current Visit: Yes (16) Sinus tachycardia seen on surveillance monitor SNOMED Code(s): 189994051 Code(s): R00.0 - TACHYCARDIA, UNSPECIFIED Status: Acute Current Visit: Yes (17) Thrombocytosis SNOMED Code(s): 8385242 Code(s): D47.3 - ESSENTIAL (HEMORRHAGIC) THROMBOCYTHEMIA Status: Acute Current Visit: Yes (18) COPD exacerbation SNOMED Code(s): 937089625 Code(s): J44.1 - CHRONIC OBSTRUCTIVE PULMONARY DISEASE W (ACUTE) EXACERBATION Status: Acute Current Visit: No (19) Chest wall pain, chronic SNOMED Code(s): 062116651 Code(s): R07.89 - OTHER CHEST PAIN; G89.29 - OTHER CHRONIC PAIN Status: Acute Current Visit: No (20) Dental caries extending into dentin Status: Acute Current Visit: No (21) Headache SNOMED Code(s): 53524632 Code(s): R51 - HEADACHE Status: Acute Current Visit: No Qualifiers: Headache type: other vascular headache Qualified Code(s): G44.1 - Vascular headache, not elsewhere classified (22) Hypomagnesemia SNOMED Code(s): 300749694 Code(s): E83.42 - HYPOMAGNESEMIA Status: Acute Priority: High Current Visit: No (23) Oral candidiasis SNOMED Code(s): 71257583 Code(s): B37.0 - CANDIDAL STOMATITIS Status: Acute Current Visit: No (24) Anxiety SNOMED Code(s): 12724653 Code(s): F41.9 - ANXIETY DISORDER, UNSPECIFIED Status: Chronic Priority: Medium Current Visit: No (25) HTN (hypertension) SNOMED Code(s): 58573262 Code(s): I10 - ESSENTIAL (PRIMARY) HYPERTENSION Status: Chronic Priority : Low Current Visit: No Qualifiers: Hypertension type: unspecified Qualified Code(s): I10 - Essential (primary ) hypertension (26) Hypoxia SNOMED Code(s): 416981790 Code(s): R09.02 - HYPOXEMIA Status: Chronic Priority: High Current Visit: No (27) Severe anxiety SNOMED Code(s): 66721573 Code(s): F41.9 - ANXIETY DISORDER, UNSPECIFIED Status: Chronic Priority: Medium Current Visit: No - Problem List Review Problem List Initiated/Reviewed/Updated: Yes - My Orders Last 24 Hours: My Active Orders 12/30/19 05:11 BASIC METABOLIC PANEL,BMP [CHEM] AM CBC WITH AUTO DIFF [HEME] AM MAGNESIUM [CHEM] AM 12/31/19 05:11 BASIC METABOLIC PANEL,BMP [CHEM] AM CBC WITH AUTO DIFF [HEME] AM MAGNESIUM [CHEM] AM 01/01/20 05:11 BASIC METABOLIC PANEL,BMP [CHEM] AM CBC WITH AUTO DIFF [HEME] AM MAGNESIUM [CHEM] AM - Plan Plan:: ASSESSMENT BY DAY Day 1 - Patient came in to ED for worsening shortness of breath--> placed on BiPAP--> admitted to ICU on BIPAP - Mental status declined and PCO2>100 + pH 7.1--> Intubated - Sedated with Versed and propofol - Tachycardic, requires IV metoprolol - Started on Rocephin, azithromycin and Tamiflu Day 2 - Intubated - Significant improvement in WBC - Sedation vacation --> patient got agitated - Failed SBT Day3 - Procalcitonin elevated - Respiratory panel + for RSV and mycoplasma - Discontinued Tamiflu and Rocephin - Kept O2 sat > 95% with FiO2 of 45% - Urine output decreased significantly to 540/24 hrs--> responded to fluid bolus Day 4 - Extubated - Transitioned to BiPAP - Attempted hi-flow but patient is a mouth breather and SatO2 < low 80's - Minimal improvement in UO--> Lasix - Significant hallucinations overnight with delirium, no physical agitation Day 5 - UO increased with single dose of Lasix - Completing azithromycin day 5 - Very limited movement due to drop in O2 saturation with minimal movement including leaning forward and just moving head or hands - Unable to perform ADLs due to shortness of breath Day 6 - Advance diet to regular - Dietary giving high protein custard and 4oz of ensure TID - PT recommending home health with increased services - Tolerated CPAP overnight well Day 7 - Procalcitonin trending down - No BM yet - Eating better - Passive range of motion with PT - Used BiPAP all night - Reduce Solumedrol dose - Oral candidiasis with concern for esophageal, will consult surgery to evaluate EGD feasibility - Lactulose q6h until BM Day 8 - Slept OK - BM today - Decreased Solumedrol dose - PT recommending front wheel walker, transfer tub, wheelchair - Start Nystatin - Anesthesia recommended to defer EGD for after patient has been discharged from this hospitalization - OK to downgrade to medical floor Day 9 - Sputum culture confirmed with Nocardia - Started Bactrim - Clinically improved and stable - NC at 4L throughout - Decrease Solumedrol dose Day 10 - Restart home medications - Slept through the night - Exhibiting drug seeking behavior with morphine - Discussed importance of discontinuing opioids for pain control - PRN Toradol for pain Day 11 - Complaining of sore throat, started on magic mouth wash - K is 5.3 --> EKG - Phos 1.8 - Mg 1.8 - Sat > 90% with 4L NC - Sleeping great - Feels a lot better, close to baseline Day 12 - Reports feels about the same as yesterday - Requesting hospital bed for home - Magnesium low - supplement - Potassium back WNL - Eating ok - Stop Toradol - Add Diflucan, Stop nystatin - Remove tele Day - CO2 elevated in blood sample - ABG shows hypercapnia - CXR shows new bilateral pleural effusions - Mag 1.8 today - Phosphorous 2.3 - BM today - Day 8 of antifungal therapy - Day 9 of ABX - Eating OK - Reviewed ECHO from October - Stop Procal - Patient changes code status to DNR/DNI, witnessed by Dr. Camacho and Charge nurse Shayna Day 14 -Serum bicarbonate continues to increase - Arterial blood gas demonstrates increased PCO2 -79 -Start high flow nasal cannula -Patient reiterates that she does not want to be intubated. 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 Discussed comfort care - Patient reports she is "done with all this." - Discussed hospice. Patient agrees to discuss this with them. Reports daughter is a hospice nurse. Order placed. - Patient would benefit from wheelchair and home hospital bed due to need for head elevation, severe dyspnea with ambulation - Patient not expected to survive beyond 6 months - SW/CM continues to work with [facility] [employer] Neurologic: Monitor mental status Avoid interactions during the night Home Ativan Respiratory: Start high flow NC when not on CPAP Atrovent q8h Budesonide q12 PO Medrol dose pack -pharmacy to dose Guaifenesin TID CPAP when patient allows Cardiovascular: Metoprolol PO, scheduled HCTZ home dose Trend BP and start medication if required PRN hydralazine for BP > 180/100 Renal and Electrolytes: Discontinued sanderson catheter Monitor urine output GI and hepatology: Regular diet 4oz Ensure TID Scheduled Senna Mirtazapine Fluconazole for yeast in UC Endocrine and Metabolism: Monitor glucose on daily labs Infectious Disease Continue Nystatin swallow Continue Bactrim - will need exterminator termite - 3-6 months Monitor temp and panculture if greater than 99.2 Procalcitonin 0.05 Start fluconazole Hematology, Oncology and Immune system: No signs of active bleeding Goal Hb >7 PROPHYLAXIS DVT- Lovenox GI- not indicated CODE STATUS: On 3/18/20 patient changed code status to DNR/DNI. Prognosis is very poor. Serum CO2 remains elevated. She continues to be severely dyspneic. Patient understands that she has end-stage lung disease. DISPOSITION: Patient will remain hospitalized, on medical floor for continued PT/OT and RT. Sputum culture has grown and confirmed with Nocardia, started on Bactrim. Length of stay greater than 96 hours due to suboptimal response to treatment, discussion with hospice. Need to arrange proper discharge equipment. Recommend ID follow-up after discharge Belinda would benefit from a home hospital bed at discharge. She reports she has tried using pillows and a wedge but is unable to get a comfortable height. She has tried to sleep in the chair but is unable. She has pedal edema so leg elevation is recommended for her. She is well known to this service and has been hospitalized many times in the past for lung related issues. 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 She has been requiring more oxygen while here. She reports she spends a majority of her time in bed, essentially getting up only to utilize the restroom. She reports she spends over 75% of her time in bed. She continues to worsen and understands she has end-stage lung disease. She needs to keep her head elevated near 90 degrees to assist in her respiratory status. PT/OT has been evaluating the patient and recommends a hospital bed at discharge as well. She would also benefit from a wheelchair due to difficulty with ambulating and getting around her house. She becomes severely dyspneic with activity. This is a progressive disease and she has a very grim overall prognosis. She again is expected to not survive over 6 months and is end-stage COPD. She has been requiring more oxygen while hospitalized. PT/OT has evaluated her while here and has been recommending a wheelchair as well.
[2019-12-29] MEDS: guaiFENesin 600 MG Tab.ER PO SCH ×3 (09:45→21:02)
[2019-12-29] MEDS: Metoprolol Tartrate 50 MG Tab PO SCH ×2 (09:45→21:03)
[2019-12-29] MEDS: Magnesium Oxide 400 MG Tab PO SCH ×2 (09:45→21:04)
[2019-12-29] MEDS: Hydrochlorothiazide 25 MG Tab PO SCH (09:45)
[2019-12-29] MEDS: Sulfamethoxazole/Trimethoprim 800-160 MG Tab PO SCH ×2 (09:45→21:02)
[2019-12-29] MEDS: Enoxaparin 40 MG/0.4 ML Syringe SUBCUT SCH (09:46)
[2019-12-29] MEDS: Sennosides 8.6 MG Tab PO SCH ×2 (09:46→21:03)
[2019-12-29] MEDS: Diphenhydramine/Lidocaine/MagAl/Simethicone 119 ML Bottle PO SCH ×3 (09:53→21:01)
[2019-12-29] MEDS: Fluconazole 100 MG Tab PO SCH (13:08)
[2019-12-29] MEDS: Mirtazapine 30 MG Tab PO SCH (21:02)
[2019-12-30] MEDS: Acetaminophen/HYDROcodone 325-5 MG Tab PO SCH ×6 (02:22→21:01)
[2019-12-30] MEDS ORDERED: Magnesium Sulfate/Water 4 GM in Premix Bag 1 BAG IV ONE (08:40)
[2019-12-30] MEDS: Diphenhydramine/Lidocaine/MagAl/Simethicone 119 ML Bottle PO SCH ×3 (08:48→20:59)
[2019-12-30] MEDS: Sennosides 8.6 MG Tab PO SCH (08:49)
[2019-12-30] MEDS: guaiFENesin 600 MG Tab.ER PO SCH ×3 (08:49→20:59)
[2019-12-30] MEDS: Magnesium Oxide 400 MG Tab PO SCH ×4 (08:49→20:59)
[2019-12-30] MEDS: Sulfamethoxazole/Trimethoprim 800-160 MG Tab PO SCH ×2 (08:49→21:00)
[2019-12-30] MEDS: Metoprolol Tartrate 50 MG Tab PO SCH ×2 (08:50→20:59)
[2019-12-30] MEDS: Hydrochlorothiazide 25 MG Tab PO SCH (08:50)
[2019-12-30] MEDS: Enoxaparin 40 MG/0.4 ML Syringe SUBCUT SCH (08:50)
[2019-12-30] MEDS: ALPRAZolam 1 MG Tab PO PRN ×2 (08:50→21:09)
[2019-12-30] MEDS: Fluconazole 100 MG Tab PO SCH (13:00)
--- NOTE | 2019-12-30 16:40 | PCM.PN ---
- General Info Date of Service: 12/30/19 Admission Dx/Problem (Free Text): Admission Diagnosis/Problem Admission Diagnosis/Problem Hypoxemia requiring supplemental oxygen Subjective Update: Patient states that she feels tired, but nothing new. Functional Status: Reports: Pain Controlled - Review of Systems General: Reports: Fatigue Pulmonary: Reports: Shortness of Breath, Cough Cardiovascular: Reports: No Symptoms Gastrointestinal: Reports: No Symptoms - Patient Data Vitals - Most Recent: Last Vital Signs Temp 97.9 F 12/30/19 10:54 Pulse 84 12/30/19 08:50 Resp 16 12/30/19 10:54 BP 102/59 L 12/30/19 08:50 Pulse Ox 94 L 12/30/19 10:54 Weight - Most Recent: 135 lb 3.2 oz I&O - Last 24 Hours: Intake & Output 12/30/19 12/30/19 12/30/19 06:59 14:59 22:59 Intake Total 925 600 480 Output Total 3000 Balance -2075 600 480 Lab Results Last 24 Hours: Laboratory Results - last 24 hr 12/30/19 12/30/19 Range/Units 06:28 06:28 WBC 11.95 H (3.98-10.04) K/mm3 RBC 3.35 L (3.98-5.22) M/mm3 Hgb 9.3 L (11.2-15.7) gm/dl Hct 33.0 L (34.1-44.9) % MCV 98.5 H (79.4-94.8) fl MCH 27.8 (25.6-32.2) pg MCHC 28.2 L (32.2-35.5) g/dl RDW Std Deviation 48.6 H (36.4-46.3) fL Plt Count 413 H (182-369) K/mm3 MPV 9.2 L (9.4-12.3) fl Neut % (Auto) 73.6 H (34.0-71.1) % Lymph % (Auto) 15.1 L (19.3-51.7) % Taney % (Auto) 8.9 (4.7-12.5) % Eos % (Auto) 0.3 L (0.7-5.8) Baso % (Auto) 0.2 (0.1-1.2) % Neut # (Auto) 8.80 H (1.56-6.13) K/mm3 Lymph # (Auto) 1.81 (1.18-3.74) K/mm3 Taney # (Auto) 1.06 H (0.24-0.36) K/mm3 Eos # (Auto) 0.03 L (0.04-0.36) K/mm3 Baso # (Auto) 0.02 (0.01-0.08) K/mm3 Manual Slide Review Abnormal smear Sodium 142 (136-145) mEq/L Potassium 4.8 (3.5-5.1) mEq/L Chloride 97 L (98-107) mEq/L Carbon Dioxide 43 H* (21-32) mEq/L Anion Gap 6.8 (5-15) BUN 22 H (7-18) mg/dL Creatinine 0.8 (0.55-1.02) mg/dL Est Cr Clr Drug Dosing 71.50 mL/min Estimated GFR (MDRD) > 60 (>60) mL/min BUN/Creatinine Ratio 27.5 H (14-18) Glucose 84 (74-106) mg/dL Calcium 8.3 L (8.5-10.1) mg/dL Magnesium 1.6 L (1.8-2.4) mg/dl Med Orders - Current: Current Medications Hydrocodone Bitart/Acetaminophen (Capulin 325-5 Mg) 1 tab PO Q4H [facility] Last Admin: 12/30/19 13:07 Dose: 1 tab Alprazolam (Xanax) 1 mg PO BID PRN PRN Reason: Anxiety Last Admin: 12/30/19 08:50 Dose: 1 mg Budesonide (Pulmicort) 0.5 mg NEB BIDRT PRN PRN Reason: Other Last Admin: 12/27/19 21:53 Dose: 0.5 mg Diphenhydr/Magaldrate/Simeth/Lidoca (First-Mouthwash Blm Susp) 30 ml PO TID [facility] Last Admin: 12/30/19 15:56 Dose: 30 ml Docusate Sodium (Colace) 100 mg PO BID PRN PRN Reason: Constipation Last Admin: 12/21/19 08:31 Dose: 100 mg Enoxaparin Sodium (Lovenox) 40 mg SUBCUT DAILY [facility] Last Admin: 12/30/19 08:50 Dose: 40 mg Fluconazole (Diflucan) 100 mg PO Q24H [facility] Last Admin: 12/30/19 13:00 Dose: 100 mg Guaifenesin (Mucinex) 600 mg PO TID [facility] Last Admin: 12/30/19 15:56 Dose: 600 mg Hydralazine HCl (Apresoline) 10 mg IVPUSH Q2H PRN PRN Reason: Hypertension Last Admin: 12/18/19 16:16 Dose: 10 mg Hydrochlorothiazide (Hydrochlorothiazide) 25 mg PO DAILY [facility] Last Admin: 12/30/19 08:50 Dose: 25 mg Ipratropium Wynot (Atrovent) 0.5 mg NEB Q8HRRT PRN PRN Reason: Other Last Admin: 12/27/19 21:53 Dose: 0.5 mg Magnesium Oxide (Magnesium Oxide) 400 mg PO TID [facility] Last Admin: 12/30/19 15:56 Dose: 400 mg Methylprednisolone (Medrol) 4 mg PO ONETIME ONE Stop: 12/31/19 09:01 Metoprolol Tartrate (Lopressor) 50 mg PO BID [facility] Last Admin: 12/30/19 08:50 Dose: 50 mg Mirtazapine (Remeron) 30 mg PO BEDTIME [facility] Last Admin: 12/29/19 21:02 Dose: 30 mg Morphine Sulfate (Morphine) 1 mg IVPUSH ONETIME PRN PRN Reason: Pain Ondansetron HCl (Zofran Odt) 4 mg PO Q6H PRN PRN Reason: nausea, able to take PO Ondansetron HCl (Zofran) 4 mg IV Q6H PRN PRN Reason: Nausea/Vomiting Senna (Senna) 8.6 mg PO BID [facility] Last Admin: 12/30/19 08:49 Dose: Not Given Trimethoprim/Sulfamethoxazole (Septra Ds) 1 tab PO BID [facility] Last Admin: 12/30/19 08:49 Dose: 1 tab Trolamine Salicylate (Aspercreme 10%) 0 gm TOP Q4HR PRN PRN Reason: Pain Discontinued Medications Acetaminophen/Codeine Phosphate (Tylenol With Codeine No.3 300mg/30mg) 1 tab PO Q6H PRN PRN Reason: Pain (severe 7-10) Last Admin: 12/18/19 14:13 Dose: 1 tab Hydrocodone Bitart/Acetaminophen (Capulin 325-5 Mg) 1 tab PO Q6H PRN PRN Reason: Pain Last Admin: 12/28/19 17:31 Dose: 1 tab Azithromycin (Zithromax) 500 mg PO BEDTIME [facility] Stop: 12/18/19 21:01 Last Admin: 12/18/19 21:05 Dose: 500 mg Budesonide (Pulmicort) 0.5 mg NEB BIDRT [facility] Last Admin: 12/26/19 06:33 Dose: Not Given Calcium Gluconate (Calcium Gluconate) 1 gm IVPUSH ONETIME ONE Stop: 12/25/19 18:18 Last Admin: 12/25/19 19:21 Dose: 1 gm Dextrose/Water (Dextrose 50% In Water) 50 ml IVPUSH ONETIME ONE Stop: 12/25/19 18:41 Last Admin: 12/25/19 19:38 Dose: 50 ml Etomidate (Amidate) 40 mg IVPUSH .STK-MED ONE Stop: 12/14/19 23:41 Fluconazole (Diflucan) 200 mg PO ONETIME ONE Stop: 12/26/19 12:01 Last Admin: 12/26/19 11:57 Dose: 200 mg Furosemide (Lasix) 40 mg IVPUSH NOW ONE Stop: 12/27/19 13:31 Last Admin: 12/27/19 14:24 Dose: 40 mg Haloperidol Lactate (Haldol) 5 mg IVPUSH ONETIME ONE Stop: 12/17/19 09:01 Last Admin: 12/17/19 09:11 Dose: 5 mg Heparin Sodium (Porcine) (Heparin Lock Flush 100 Units/Ml) Confirm Administered Dose 500 units .ROUTE .STK-MED ONE Stop: 12/17/19 18:27 Last Admin: 12/17/19 20:01 Dose: Not Given Hydromorphone HCl (Dilaudid) 0.25 mg IVPUSH ONETIME ONE Stop: 12/14/19 21:24 Last Admin: 12/14/19 21:43 Dose: 0.25 mg Sodium Chloride (Normal Saline) 1,000 mls @ 150 mls/hr IV ASDIRECTED [facility] Last Infusion: 12/16/19 09:23 Dose: 250 mls/hr Azithromycin 500 mg/ Sodium (Chloride) 250 mls @ 250 mls/hr IV Q24H [facility] Stop: 12/18/19 23:30 Last Admin: 12/17/19 21:16 Dose: 250 mls/hr Ceftriaxone Sodium 2 gm/ (Sodium Chloride) 100 mls @ 200 mls/hr IV Q24H [facility] Last Admin: 12/14/19 23:32 Dose: 200 mls/hr Propofol (Diprivan 100 Ml) Confirm Administered Dose 100 mls @ as directed .ROUTE .[facility] ONE Stop: 12/15/19 00:02 Last Admin: 12/15/19 00:23 Dose: Not Given Propofol (Diprivan 100 Ml) 100 mls @ 1.463 mls/hr IV TITRATE SHAUN; Protocol Last Admin: 12/16/19 02:10 Dose: 32 mcg/kg/min, 9.362 mls/hr Norepinephrine Bitartrate 4 mg (/ Dextrose/Water) 250 mls @ 7.5 mls/hr IV TITRATE SHAUN; Protocol Ceftriaxone Sodium 2 gm/ (Sodium Chloride) 100 mls @ 200 mls/hr IV Q24H [facility] Last Admin: 12/15/19 22:38 Dose: 200 mls/hr Magnesium Sulfate 2 gm/ Premix 50 mls @ 25 mls/hr IV ONETIME ONE Stop: 12/15/19 09:59 Last Admin: 12/15/19 08:03 Dose: 25 mls/hr Magnesium Sulfate (Magnesium Sulfate In Water Premix) Confirm Administered Dose 50 mls @ as directed .ROUTE .[facility] ONE Stop: 12/15/19 07:56 Last Admin: 12/15/19 08:02 Dose: Not Given Midazolam HCl 100 mg/ Sodium (Chloride) 100 mls @ 0.5 mls/hr IV ASDIRECTED [facility] Last Infusion: 12/15/19 17:38 Dose: 5 mls/hr Midazolam HCl 50 mg/ Sodium (Chloride) 50 mls @ 2.44 mls/hr IV TITRATE SHAUN; Protocol Lactated Ringer's (Ringers, Lactated) 1,000 mls @ 250 mls/hr IV ASDIRECTED [facility] Last Infusion: 12/16/19 20:44 Dose: 150 mls/hr Lactated Ringer's (Ringers, Lactated) 1,000 mls @ 150 mls/hr IV ASDIRECTED [facility] Last Admin: 12/17/19 08:35 Dose: 150 mls/hr Sodium Chloride (Normal Saline) Confirm Administered Dose 1,000 mls @ as directed .ROUTE .STK-MED ONE Stop: 12/17/19 17:24 Last Admin: 12/17/19 20:01 Dose: Not Given Magnesium Sulfate 4 gm/ Premix 100 mls @ 25 mls/hr IV ONETIME ONE Stop: 12/17/19 23:59 Last Admin: 12/17/19 20:20 Dose: 25 mls/hr Potassium Phosphate 30 mmole/ (Sodium Chloride) 510 mls @ 102 mls/hr IV Q5H [facility] Stop: 12/19/19 21:59 Last Admin: 12/19/19 17:14 Dose: Not Given Magnesium Sulfate 2 gm/ Premix 50 mls @ 25 mls/hr IV Q1H [facility] Stop: 12/24/19 12:44 Last Admin: 12/24/19 12:07 Dose: 25 mls/hr Sodium Phosphate 30 mmole/ (Sodium Chloride) 260 mls @ 86.667 mls/hr IV ONETIME ONE Stop: 12/24/19 12:01 Last Admin: 12/24/19 14:03 Dose: 86.667 mls/hr Sodium Phosphate 30 mmole/ (Sodium Chloride) 260 mls @ 130 mls/hr IV Q2H [facility] Stop: 12/25/19 18:59 Last Admin: 12/25/19 19:19 Dose: 130 mls/hr Magnesium Sulfate 2 gm/ Premix 50 mls @ 25 mls/hr IV ONETIME ONE Stop: 12/26/19 10:59 Last Admin: 12/26/19 08:49 Dose: 25 mls/hr Magnesium Sulfate 4 gm/ Premix 50 mls @ 12.5 mls/hr IV ONETIME ONE Stop: 12/28/19 16:59 Last Admin: 12/28/19 12:09 Dose: 12.5 mls/hr Magnesium Sulfate 4 gm/ Premix 50 mls @ 12.5 mls/hr IV ONETIME ONE Stop: 12/30/19 12:39 Last Admin: 12/30/19 09:05 Dose: Not Given Insulin Human Regular (Humulin R) 10 unit IV ONETIME ONE Stop: 12/25/19 18:20 Last Admin: 12/25/19 19:36 Dose: 10 unit Ipratropium Wynot (Atrovent) 0.5 mg NEB Q8HRRT [facility] Last Admin: 12/26/19 06:33 Dose: Not Given Ketorolac Tromethamine (Toradol) 15 mg IM Q6H PRN PRN Reason: Pain (moderate 4-6) Ketorolac Tromethamine (Toradol) 15 mg IM Q6H PRN PRN Reason: Pain (moderate 4-6) Ketorolac Tromethamine (Toradol) 15 mg IVPUSH Q6H PRN PRN Reason: Pain (moderate 4-6) Last Admin: 12/25/19 20:47 Dose: 15 mg Lorazepam (Ativan) 1 mg IVPUSH ONETIME ONE Stop: 12/20/19 10:38 Last Admin: 12/20/19 11:00 Dose: 1 mg Magnesium Oxide (Magnesium Oxide) 400 mg PO DAILY [facility] Last Admin: 12/28/19 08:53 Dose: 400 mg Magnesium Oxide (Magnesium Oxide) 400 mg PO BID [facility] Last Admin: 12/30/19 08:49 Dose: 400 mg Methylprednisolone (Medrol) 24 mg PO ONETIME ONE Stop: 12/26/19 09:01 Last Admin: 12/26/19 08:36 Dose: 24 mg Methylprednisolone (Medrol) 20 mg PO ONETIME ONE Stop: 12/27/19 09:01 Last Admin: 12/27/19 08:22 Dose: 20 mg Methylprednisolone (Medrol) 16 mg PO ONETIME ONE Stop: 12/28/19 09:01 Last Admin: 12/28/19 08:54 Dose: 16 mg Methylprednisolone (Medrol) 12 mg PO ONETIME ONE Stop: 12/29/19 09:01 Last Admin: 12/29/19 09:45 Dose: 12 mg Methylprednisolone (Medrol) 8 mg PO ONETIME ONE Stop: 12/30/19 09:01 Last Admin: 12/30/19 08:48 Dose: 8 mg Methylprednisolone Sodium Succinate (Solu-Medrol) 125 mg IVPUSH Q12H [facility] Last Admin: 12/21/19 10:40 Dose: 125 mg Methylprednisolone Sodium Succinate (Solu-Medrol) 80 mg IVPUSH Q12H [facility] Last Admin: 12/22/19 09:42 Dose: 80 mg Methylprednisolone Sodium Succinate (Solu-Medrol) 40 mg IVPUSH Q12H [facility] Last Admin: 12/25/19 08:44 Dose: 40 mg Metoprolol Tartrate (Lopressor) 2.5 mg IVPUSH ONETIME ONE Stop: 12/15/19 06:06 Last Admin: 12/15/19 06:13 Dose: 2.5 mg Metoprolol Tartrate (Lopressor) 2.5 mg IVPUSH Q12HR [facility] Last Admin: 12/18/19 07:59 Dose: 2.5 mg Metoprolol Tartrate (Lopressor) 10 mg IVPUSH ONETIME ONE Stop: 12/18/19 17:21 Last Admin: 12/18/19 17:00 Dose: 10 mg Morphine Sulfate (Morphine) 1 mg IVPUSH Q4H PRN PRN Reason: Pain (severe 7-10) Stop: 12/15/19 22:06 Morphine Sulfate (Morphine) 1 mg IVPUSH ONETIME ONE Stop: 12/20/19 09:24 Last Admin: 12/20/19 09:35 Dose: 1 mg Morphine Sulfate (Morphine) 1 mg IVPUSH ONETIME ONE Stop: 12/20/19 11:01 Last Admin: 12/20/19 11:30 Dose: 1 mg Morphine Sulfate (Morphine) 1 mg IVPUSH Q8H PRN PRN Reason: Pain (severe 7-10) Last Admin: 12/22/19 14:41 Dose: 1 mg Morphine Sulfate (Morphine) 1 mg IVPUSH ONETIME PRN PRN Reason: Pain Nystatin (Nystatin Oral Syringe) 5 unit PO QID [facility] Last Admin: 12/20/19 20:31 Dose: 5 unit Nystatin (Nystatin Oral Syringe) 500,000 unit PO QID [facility] Last Admin: 12/26/19 08:36 Dose: 500,000 unit Ondansetron HCl (Zofran) 4 mg IVPUSH ONETIME ONE Stop: 12/14/19 21:23 Last Admin: 12/14/19 21:43 Dose: 4 mg Pantoprazole Sodium (Protonix Iv) 40 mg IVPUSH DAILY@0600 [facility] Last Admin: 12/18/19 06:13 Dose: 40 mg Potassium Chloride (Klor-Con M20) 40 meq PO BID [facility] Stop: 12/19/19 21:01 Last Admin: 12/19/19 20:19 Dose: 40 meq Quetiapine Fumarate (Seroquel) 100 mg PO ONETIME ONE Stop: 12/17/19 21:01 Last Admin: 12/17/19 20:21 Dose: 100 mg Succinylcholine Chloride (Quelicin) 200 mg .ROUTE .STK-MED ONE Stop: 12/14/19 23:41 Triamterene/HCTZ (Dyazide 25-37.5 Mg) 1 each PO DAILY [facility] Last Admin: 12/25/19 08:44 Dose: 1 each - Exam Quality Assessment: Supplemental Oxygen General: Alert, Oriented HEENT: Pupils Equal, Mucous Membr. Moist/Emmet Neck: Supple Lungs: Decreased Breath Sounds, Wheezing (Faint expiratory). No: Normal Respiratory Effort (Increased respiratory rate, effort, and use accessory muscles) Cardiovascular: Regular Rate, Regular Rhythm GI/Abdominal Exam: Normal Bowel Sounds, Soft, Non-Tender, No Distention Extremities: Normal Inspection, Non-Tender Skin: Warm, Dry, Intact Psy/Mental Status: Alert, Normal Affect, Normal Mood Sepsis Event Note - Evaluation Sepsis Screening Result: No Definite Risk - Focused Exam Vital Signs: Vital Signs Temp Pulse Resp BP Pulse Ox 12/30/19 10:54 97.9 F 16 94 L 12/30/19 08:50 84 102/59 L Date Exam was Performed: 12/30/19 Time Exam was Performed: 18:48 - Problem List Review Problem List Initiated/Reviewed/Updated: Yes - My Orders Last 24 Hours: My Active Orders 12/30/19 09:00 Magnesium Oxide 400 mg PO TID - Plan Plan:: ASSESSMENT BY DAY Day 1 - Patient came in to ED for worsening shortness of breath--> placed on BiPAP--> admitted to ICU on BIPAP - Mental status declined and PCO2>100 + pH 7.1--> Intubated - Sedated with Versed and propofol - Tachycardic, requires IV metoprolol - Started on Rocephin, azithromycin and Tamiflu Day 2 - Intubated - Significant improvement in WBC - Sedation vacation --> patient got agitated - Failed SBT Day3 - Procalcitonin elevated - Respiratory panel + for RSV and mycoplasma - Discontinued Tamiflu and Rocephin - Kept O2 sat > 95% with FiO2 of 45% - Urine output decreased significantly to 540/24 hrs--> responded to fluid bolus Day 4 - Extubated - Transitioned to BiPAP - Attempted hi-flow but patient is a mouth breather and SatO2 < low 80's - Minimal improvement in UO--> Lasix - Significant hallucinations overnight with delirium, no physical agitation Day 5 - UO increased with single dose of Lasix - Completing azithromycin day 5 - Very limited movement due to drop in O2 saturation with minimal movement including leaning forward and just moving head or hands - Unable to perform ADLs due to shortness of breath Day 6 - Advance diet to regular - Dietary giving high protein custard and 4oz of ensure TID - PT recommending home health with increased services - Tolerated CPAP overnight well Day 7 - Procalcitonin trending down - No BM yet - Eating better - Passive range of motion with PT - Used BiPAP all night - Reduce Solumedrol dose - Oral candidiasis with concern for esophageal, will consult surgery to evaluate EGD feasibility - Lactulose q6h until BM Day 8 - Slept OK - BM today - Decreased Solumedrol dose - PT recommending front wheel walker, transfer tub, wheelchair - Start Nystatin - Anesthesia recommended to defer EGD for after patient has been discharged from this hospitalization - OK to downgrade to medical floor Day 9 - Sputum culture confirmed with Nocardia - Started Bactrim - Clinically improved and stable - NC at 4L throughout - Decrease Solumedrol dose Day 10 - Restart home medications - Slept through the night - Exhibiting drug seeking behavior with morphine - Discussed importance of discontinuing opioids for pain control - PRN Toradol for pain Day 11 - Complaining of sore throat, started on magic mouth wash - K is 5.3 --> EKG - Phos 1.8 - Mg 1.8 - Sat > 90% with 4L NC - Sleeping great - Feels a lot better, close to baseline Day 12 - Reports feels about the same as yesterday - Requesting hospital bed for home - Magnesium low - supplement - Potassium back WNL - Eating ok - Stop Toradol - Add Diflucan, Stop nystatin - Remove tele Day - CO2 elevated in blood sample - ABG shows hypercapnia - CXR shows new bilateral pleural effusions - Mag 1.8 today - Phosphorous 2.3 - BM today - Day 8 of antifungal therapy - Day 9 of ABX - Eating OK - Reviewed ECHO from October - Procal - Patient changes code status to DNR/DNI, witnessed by Dr. Camacho and Charge nurse Shayna Day 14 -Serum bicarbonate continues to increase - Arterial blood gas demonstrates increased PCO2 -79 -Start high flow nasal cannula -Patient reiterates that she does not want to be intubated. 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 Discussed comfort care - Patient reports she is "done with all this." - Discussed hospice. Patient agrees to discuss this with them. Reports daughter is a hospice nurse. Order placed. - Patient would benefit from wheelchair and home hospital bed due to need for head elevation, severe dyspnea with ambulation - Patient not expected to survive beyond 6 months - SW/CM continues to work with Susana Day 16 -Serum bicarbonate slightly decreased from 45-43 -No significant change overnight. -Magnesium decreased to 1.6. -IV access was lost so magnesium were replaced orally by increasing her magnesium oxide to 400 mg 3 times daily -Recheck magnesium in the morning PLAN BY SYSTEMS Neurologic: Monitor mental status Avoid interactions during the night Home Ativan Respiratory: high flow NC when not on CPAP Atrovent q8h Budesonide q12 PO Medrol dose pack -pharmacy to dose Guaifenesin TID CPAP when patient allows Cardiovascular: Metoprolol PO, scheduled HCTZ home dose Trend BP and start medication if required PRN hydralazine for BP > 180/100 Renal and Electrolytes: Discontinued sanderson catheter Monitor urine output GI and hepatology: Regular diet 4oz Ensure TID Scheduled Senna Mirtazapine Fluconazole for yeast in UC Endocrine and Metabolism: Monitor glucose on daily labs Infectious Disease Continue Nystatin swallow Continue Bactrim - will need termite exterminator - 3-6 months Monitor temp and panculture if greater than 99.2 Procalcitonin 0.05 Start fluconazole Hematology, Oncology and Immune system: No signs of active bleeding Goal Hb >7 PROPHYLAXIS DVT- Lovenox GI- not indicated CODE STATUS: On 12/27/19 patient changed code status to DNR/DNI. Prognosis is very poor. Serum CO2 remains elevated. She continues to be severely dyspneic. Patient understands that she has end-stage lung disease. DISPOSITION: Patient will remain hospitalized, on medical floor for continued PT/OT and RT. Sputum culture has grown and confirmed with Nocardia, started on Bactrim. Length of stay greater than 96 hours due to suboptimal response to treatment, discussion with hospice. Need to arrange proper discharge equipment. Recommend ID follow-up after discharge Belinda would benefit from a home hospital bed at discharge. She reports she has tried using pillows and a wedge but is unable to get a comfortable height. She has tried to sleep in the chair but is unable. She has pedal edema so leg elevation is recommended for her. She is well known to this service and has been hospitalized many times in the past for lung related issues. 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 She has been requiring more oxygen while here. She reports she spends a majority of her time in bed, essentially getting up only to utilize the restroom. She reports she spends over 75% of her time in bed. She continues to worsen and understands she has end-stage lung disease. She needs to keep her head elevated near 90 degrees to assist in her respiratory status. PT/OT has been evaluating the patient and recommends a hospital bed at discharge as well. She would also benefit from a wheelchair due to difficulty with ambulating and getting around her house. She becomes severely dyspneic with activity. This is a progressive disease and she has a very grim overall prognosis. She again is expected to not survive over 6 months and is end-stage COPD. She has been requiring more oxygen while hospitalized. PT/OT has evaluated her while here and has been recommending a wheelchair as well.
[2019-12-30] MEDS ORDERED: Sennosides 8.6 MG Tab PO PRN (18:37)
[2019-12-30] MEDS: Mirtazapine 30 MG Tab PO SCH (21:00)
[2019-12-31] MEDS: Acetaminophen/HYDROcodone 325-5 MG Tab PO SCH ×6 (01:27→21:27)
[2019-12-31] MEDS: ALPRAZolam 1 MG Tab PO PRN ×2 (09:05→19:35)
[2019-12-31] MEDS: Hydrochlorothiazide 25 MG Tab PO SCH (09:05)
[2019-12-31] MEDS: Diphenhydramine/Lidocaine/MagAl/Simethicone 119 ML Bottle PO SCH ×3 (09:05→21:29)
[2019-12-31] MEDS: Magnesium Oxide 400 MG Tab PO SCH ×3 (09:06→21:29)
[2019-12-31] MEDS: Sulfamethoxazole/Trimethoprim 800-160 MG Tab PO SCH ×2 (09:07→21:28)
[2019-12-31] MEDS: guaiFENesin 600 MG Tab.ER PO SCH ×3 (09:07→21:29)
[2019-12-31] MEDS: Metoprolol Tartrate 50 MG Tab PO SCH ×2 (09:08→21:29)
[2019-12-31] MEDS: Enoxaparin 40 MG/0.4 ML Syringe SUBCUT SCH (09:10)
[2019-12-31] MEDS: Fluconazole 100 MG Tab PO SCH (13:00)
[2019-12-31] MEDS: Ipratropium 0.02% 0.5 MG/2.5 ML Neb Soln NEB PRN (15:57)
--- NOTE | 2019-12-31 19:52 | PCM.PN ---
- General Info Date of Service: 12/31/19 Admission Dx/Problem (Free Text): Admission Diagnosis/Problem Admission Diagnosis/Problem Hypoxemia requiring supplemental oxygen Subjective Update: She states that she is feeling fatigued but otherwise well. Her daughter and son are arriving in town today. Functional Status: Reports: Pain Controlled - Review of Systems General: Reports: Fatigue HEENT: Reports: No Symptoms Pulmonary: Reports: Shortness of Breath, Cough Cardiovascular: Reports: No Symptoms Gastrointestinal: Reports: No Symptoms Musculoskeletal: Reports: No Symptoms - Patient Data Vitals - Most Recent: Last Vital Signs Temp 98.1 F 12/31/19 09:00 Pulse 82 12/31/19 09:08 Resp 20 12/31/19 09:00 BP 116/63 12/31/19 09:08 Pulse Ox 91 L 12/31/19 15:58 Weight - Most Recent: 132 lb 11.2 oz I&O - Last 24 Hours: Intake & Output 12/31/19 12/31/19 12/31/19 06:59 14:59 22:59 Intake Total 270 358 8144 Output Total 2200 400 1700 Balance -1650 -160 -580 Med Orders - Current: Current Medications Hydrocodone Bitart/Acetaminophen ([place] 325-5 Mg) 1 tab PO Q4H [facility] Last Admin: 12/31/19 17:59 Dose: 1 tab Alprazolam (Xanax) 1 mg PO BID PRN PRN Reason: Anxiety Last Admin: 12/31/19 19:35 Dose: 1 mg Budesonide (Pulmicort) 0.5 mg NEB BIDRT PRN PRN Reason: Other Last Admin: 12/27/19 21:53 Dose: 0.5 mg Diphenhydr/Magaldrate/Simeth/Lidoca (First-Mouthwash Blm Susp) 30 ml PO TID SHAUN Last Admin: 12/31/19 15:48 Dose: 30 ml Docusate Sodium (Colace) 100 mg PO BID PRN PRN Reason: Constipation Last Admin: 12/21/19 08:31 Dose: 100 mg Enoxaparin Sodium (Lovenox) 40 mg SUBCUT DAILY [facility] Last Admin: 12/31/19 09:10 Dose: 40 mg Fluconazole (Diflucan) 100 mg PO Q24H [facility] Last Admin: 12/31/19 13:00 Dose: 100 mg Guaifenesin (Mucinex) 600 mg PO TID [facility] Last Admin: 12/31/19 15:48 Dose: 600 mg Hydralazine HCl (Apresoline) 10 mg IVPUSH Q2H PRN PRN Reason: Hypertension Last Admin: 12/18/19 16:16 Dose: 10 mg Hydrochlorothiazide (Hydrochlorothiazide) 25 mg PO DAILY [facility] Last Admin: 12/31/19 09:05 Dose: 25 mg Ipratropium [place] (Atrovent) 0.5 mg NEB Q8HRRT PRN PRN Reason: Other Last Admin: 12/31/19 15:57 Dose: 0.5 mg Magnesium Oxide (Magnesium Oxide) 400 mg PO TID [facility] Last Admin: 12/31/19 15:48 Dose: 400 mg Metoprolol Tartrate (Lopressor) 50 mg PO BID [facility] Last Admin: 12/31/19 09:08 Dose: 50 mg Mirtazapine (Remeron) 30 mg PO BEDTIME [facility] Last Admin: 12/30/19 21:00 Dose: 30 mg Morphine Sulfate (Morphine) 1 mg IVPUSH ONETIME PRN PRN Reason: Pain Ondansetron HCl (Zofran Odt) 4 mg PO Q6H PRN PRN Reason: nausea, able to take PO Ondansetron HCl (Zofran) 4 mg IV Q6H PRN PRN Reason: Nausea/Vomiting Senna (Senna) 8.6 mg PO BID PRN PRN Reason: Constipation Trimethoprim/Sulfamethoxazole (Septra Ds) 1 tab PO BID [facility] Last Admin: 12/31/19 09:07 Dose: 1 tab Trolamine Salicylate (Aspercreme 10%) 0 gm TOP Q4HR PRN PRN Reason: Pain Discontinued Medications Acetaminophen/Codeine Phosphate (Tylenol With Codeine No.3 300mg/30mg) 1 tab PO Q6H PRN PRN Reason: Pain (severe 7-10) Last Admin: 12/18/19 14:13 Dose: 1 tab Hydrocodone Bitart/Acetaminophen ([place] 325-5 Mg) 1 tab PO Q6H PRN PRN Reason: Pain Last Admin: 12/28/19 17:31 Dose: 1 tab Azithromycin (Zithromax) 500 mg PO BEDTIME [facility] Stop: 12/18/19 21:01 Last Admin: 12/18/19 21:05 Dose: 500 mg Budesonide (Pulmicort) 0.5 mg NEB BIDRT [facility] Last Admin: 12/26/19 06:33 Dose: Not Given Calcium Gluconate (Calcium Gluconate) 1 gm IVPUSH ONETIME ONE Stop: 12/25/19 18:18 Last Admin: 12/25/19 19:21 Dose: 1 gm Dextrose/Water (Dextrose 50% In Water) 50 ml IVPUSH ONETIME ONE Stop: 12/25/19 18:41 Last Admin: 12/25/19 19:38 Dose: 50 ml Etomidate (Amidate) 40 mg IVPUSH .STK-MED ONE Stop: 12/14/19 23:41 Fluconazole (Diflucan) 200 mg PO ONETIME ONE Stop: 12/26/19 12:01 Last Admin: 12/26/19 11:57 Dose: 200 mg Furosemide (Lasix) 40 mg IVPUSH NOW ONE Stop: 12/27/19 13:31 Last Admin: 12/27/19 14:24 Dose: 40 mg Haloperidol Lactate (Haldol) 5 mg IVPUSH ONETIME ONE Stop: 12/17/19 09:01 Last Admin: 12/17/19 09:11 Dose: 5 mg Heparin Sodium (Porcine) (Heparin Lock Flush 100 Units/Ml) Confirm Administered Dose 500 units .ROUTE .STK-MED ONE Stop: 12/17/19 18:27 Last Admin: 12/17/19 20:01 Dose: Not Given Hydromorphone HCl (Dilaudid) 0.25 mg IVPUSH ONETIME ONE Stop: 12/14/19 21:24 Last Admin: 12/14/19 21:43 Dose: 0.25 mg Sodium Chloride (Normal Saline) 1,000 mls @ 150 mls/hr IV ASDIRECTED [facility] Last Infusion: 12/16/19 09:23 Dose: 250 mls/hr Azithromycin 500 mg/ Sodium (Chloride) 250 mls @ 250 mls/hr IV Q24H [facility] Stop: 12/18/19 23:30 Last Admin: 12/17/19 21:16 Dose: 250 mls/hr Ceftriaxone Sodium 2 gm/ (Sodium Chloride) 100 mls @ 200 mls/hr IV Q24H [facility] Last Admin: 12/14/19 23:32 Dose: 200 mls/hr Propofol (Diprivan 100 Ml) Confirm Administered Dose 100 mls @ as directed .ROUTE .[facility]-MED ONE Stop: 12/15/19 00:02 Last Admin: 12/15/19 00:23 Dose: Not Given Propofol (Diprivan 100 Ml) 100 mls @ 1.463 mls/hr IV TITRATE SHAUN; Protocol Last Admin: 12/16/19 02:10 Dose: 32 mcg/kg/min, 9.362 mls/hr Norepinephrine Bitartrate 4 mg (/ Dextrose/Water) 250 mls @ 7.5 mls/hr IV TITRATE SHAUN; Protocol Ceftriaxone Sodium 2 gm/ (Sodium Chloride) 100 mls @ 200 mls/hr IV Q24H [facility] Last Admin: 12/15/19 22:38 Dose: 200 mls/hr Magnesium Sulfate 2 gm/ Premix 50 mls @ 25 mls/hr IV ONETIME ONE Stop: 12/15/19 09:59 Last Admin: 12/15/19 08:03 Dose: 25 mls/hr Magnesium Sulfate (Magnesium Sulfate In Water Premix) Confirm Administered Dose 50 mls @ as directed .ROUTE .[facility]-MED ONE Stop: 12/15/19 07:56 Last Admin: 12/15/19 08:02 Dose: Not Given Midazolam HCl 100 mg/ Sodium (Chloride) 100 mls @ 0.5 mls/hr IV ASDIRECTED [facility] Last Infusion: 12/15/19 17:38 Dose: 5 mls/hr Midazolam HCl 50 mg/ Sodium (Chloride) 50 mls @ 2.44 mls/hr IV TITRATE SHAUN; Protocol Lactated Ringer's (Ringers, Lactated) 1,000 mls @ 250 mls/hr IV ASDIRECTED [facility] Last Infusion: 12/16/19 20:44 Dose: 150 mls/hr Lactated Ringer's (Ringers, Lactated) 1,000 mls @ 150 mls/hr IV ASDIRECTED SHA[facility] Last Admin: 12/17/19 08:35 Dose: 150 mls/hr Sodium Chloride (Normal Saline) Confirm Administered Dose 1,000 mls @ as directed .ROUTE .ST-MED ONE Stop: 12/17/19 17:24 Last Admin: 12/17/19 20:01 Dose: Not Given Magnesium Sulfate 4 gm/ Premix 100 mls @ 25 mls/hr IV ONETIME ONE Stop: 12/17/19 23:59 Last Admin: 12/17/19 20:20 Dose: 25 mls/hr Potassium Phosphate 30 mmole/ (Sodium Chloride) 510 mls @ 102 mls/hr IV Q5H [facility] Stop: 12/19/19 21:59 Last Admin: 12/19/19 17:14 Dose: Not Given Magnesium Sulfate 2 gm/ Premix 50 mls @ 25 mls/hr IV Q1H [facility] Stop: 12/24/19 12:44 Last Admin: 12/24/19 12:07 Dose: 25 mls/hr Sodium Phosphate 30 mmole/ (Sodium Chloride) 260 mls @ 86.667 mls/hr IV ONETIME ONE Stop: 12/24/19 12:01 Last Admin: 12/24/19 14:03 Dose: 86.667 mls/hr Sodium Phosphate 30 mmole/ (Sodium Chloride) 260 mls @ 130 mls/hr IV Q2H [facility] Stop: 12/25/19 18:59 Last Admin: 12/25/19 19:19 Dose: 130 mls/hr Magnesium Sulfate 2 gm/ Premix 50 mls @ 25 mls/hr IV ONETIME ONE Stop: 12/26/19 10:59 Last Admin: 12/26/19 08:49 Dose: 25 mls/hr Magnesium Sulfate 4 gm/ Premix 50 mls @ 12.5 mls/hr IV ONETIME ONE Stop: 12/28/19 16:59 Last Admin: 12/28/19 12:09 Dose: 12.5 mls/hr Magnesium Sulfate 4 gm/ Premix 50 mls @ 12.5 mls/hr IV ONETIME ONE Stop: 12/30/19 12:39 Last Admin: 12/30/19 09:05 Dose: Not Given Insulin Human Regular (Humulin R) 10 unit IV ONETIME ONE Stop: 12/25/19 18:20 Last Admin: 12/25/19 19:36 Dose: 10 unit Ipratropium [place] (Atrovent) 0.5 mg NEB Q8HRRT [facility] Last Admin: 12/26/19 06:33 Dose: Not Given Ketorolac Tromethamine (Toradol) 15 mg IM Q6H PRN PRN Reason: Pain (moderate 4-6) Ketorolac Tromethamine (Toradol) 15 mg IM Q6H PRN PRN Reason: Pain (moderate 4-6) Ketorolac Tromethamine (Toradol) 15 mg IVPUSH Q6H PRN PRN Reason: Pain (moderate 4-6) Last Admin: 12/25/19 20:47 Dose: 15 mg Lorazepam (Ativan) 1 mg IVPUSH ONETIME ONE Stop: 12/20/19 10:38 Last Admin: 12/20/19 11:00 Dose: 1 mg Magnesium Oxide (Magnesium Oxide) 400 mg PO DAILY [facility] Last Admin: 12/28/19 08:53 Dose: 400 mg Magnesium Oxide (Magnesium Oxide) 400 mg PO BID [facility] Last Admin: 12/30/19 08:49 Dose: 400 mg Methylprednisolone (Medrol) 24 mg PO ONETIME ONE Stop: 12/26/19 09:01 Last Admin: 12/26/19 08:36 Dose: 24 mg Methylprednisolone (Medrol) 20 mg PO ONETIME ONE Stop: 12/27/19 09:01 Last Admin: 12/27/19 08:22 Dose: 20 mg Methylprednisolone (Medrol) 16 mg PO ONETIME ONE Stop: 12/28/19 09:01 Last Admin: 12/28/19 08:54 Dose: 16 mg Methylprednisolone (Medrol) 12 mg PO ONETIME ONE Stop: 12/29/19 09:01 Last Admin: 12/29/19 09:45 Dose: 12 mg Methylprednisolone (Medrol) 8 mg PO ONETIME ONE Stop: 12/30/19 09:01 Last Admin: 12/30/19 08:48 Dose: 8 mg Methylprednisolone (Medrol) 4 mg PO ONETIME ONE Stop: 12/31/19 09:01 Last Admin: 12/31/19 09:06 Dose: 4 mg Methylprednisolone Sodium Succinate (Solu-Medrol) 125 mg IVPUSH Q12H [facility] Last Admin: 12/21/19 10:40 Dose: 125 mg Methylprednisolone Sodium Succinate (Solu-Medrol) 80 mg IVPUSH Q12H [facility] Last Admin: 12/22/19 09:42 Dose: 80 mg Methylprednisolone Sodium Succinate (Solu-Medrol) 40 mg IVPUSH Q12H [facility] Last Admin: 12/25/19 08:44 Dose: 40 mg Metoprolol Tartrate (Lopressor) 2.5 mg IVPUSH ONETIME ONE Stop: 12/15/19 06:06 Last Admin: 12/15/19 06:13 Dose: 2.5 mg Metoprolol Tartrate (Lopressor) 2.5 mg IVPUSH Q12HR [facility] Last Admin: 12/18/19 07:59 Dose: 2.5 mg Metoprolol Tartrate (Lopressor) 10 mg IVPUSH ONETIME ONE Stop: 12/18/19 17:21 Last Admin: 12/18/19 17:00 Dose: 10 mg Morphine Sulfate (Morphine) 1 mg IVPUSH Q4H PRN PRN Reason: Pain (severe 7-10) Stop: 12/15/19 22:06 Morphine Sulfate (Morphine) 1 mg IVPUSH ONETIME ONE Stop: 12/20/19 09:24 Last Admin: 12/20/19 09:35 Dose: 1 mg Morphine Sulfate (Morphine) 1 mg IVPUSH ONETIME ONE Stop: 12/20/19 11:01 Last Admin: 12/20/19 11:30 Dose: 1 mg Morphine Sulfate (Morphine) 1 mg IVPUSH Q8H PRN PRN Reason: Pain (severe 7-10) Last Admin: 12/22/19 14:41 Dose: 1 mg Morphine Sulfate (Morphine) 1 mg IVPUSH ONETIME PRN PRN Reason: Pain Nystatin (Nystatin Oral Syringe) 5 unit PO QID [facility] Last Admin: 12/20/19 20:31 Dose: 5 unit Nystatin (Nystatin Oral Syringe) 500,000 unit PO QID [facility] Last Admin: 12/26/19 08:36 Dose: 500,000 unit Ondansetron HCl (Zofran) 4 mg IVPUSH ONETIME ONE Stop: 12/14/19 21:23 Last Admin: 12/14/19 21:43 Dose: 4 mg Pantoprazole Sodium (Protonix Iv) 40 mg IVPUSH DAILY@0600 [facility] Last Admin: 12/18/19 06:13 Dose: 40 mg Potassium Chloride (Klor-Con M20) 40 meq PO BID [facility] Stop: 12/19/19 21:01 Last Admin: 12/19/19 20:19 Dose: 40 meq Quetiapine Fumarate (Seroquel) 100 mg PO ONETIME ONE Stop: 12/17/19 21:01 Last Admin: 12/17/19 20:21 Dose: 100 mg Senna (Senna) 8.6 mg PO BID [facility] Last Admin: 12/30/19 08:49 Dose: Not Given Succinylcholine Chloride (Quelicin) 200 mg .ROUTE .STK-MED ONE Stop: 12/14/19 23:41 Triamterene/HCTZ (Dyazide 25-37.5 Mg) 1 each PO DAILY [facility] Last Admin: 12/25/19 08:44 Dose: 1 each - Exam Quality Assessment: Supplemental Oxygen General: Alert, Oriented HEENT: Pupils Equal Neck: Supple Lungs: Decreased Breath Sounds, Wheezing (Faint expiratory ). No: Normal Respiratory Effort (Increased respiratory effort without use of accessory muscles) Extremities: Normal Inspection, Normal Range of Motion, Non-Tender, No Pedal Edema Skin: Warm, Dry, Intact Psy/Mental Status: Alert, Normal Affect, Normal Mood Sepsis Event Note - Evaluation Sepsis Screening Result: No Definite Risk - Focused Exam Vital Signs: Vital Signs Temp Pulse Pulse Resp BP BP Pulse Ox 12/31/19 15:58 12/31/19 09:08 82 116/63 12/31/19 09:00 98.1 F 82 20 116/63 99 Pulse Ox 12/31/19 15:58 91 L 12/31/19 09:08 12/31/19 09:00 Date Exam was Performed: 12/31/19 Time Exam was Performed: 19:49 - Problem List Review Problem List Initiated/Reviewed/Updated: Yes - Plan Plan:: ASSESSMENT BY DAY Day 1 - Patient came in to ED for worsening shortness of breath--> placed on BiPAP--> admitted to ICU on BIPAP - Mental status declined and PCO2>100 + pH 7.1--> Intubated - Sedated with Versed and propofol - Tachycardic, requires IV metoprolol - Started on Rocephin, azithromycin and Tamiflu Day 2 - Intubated - Significant improvement in WBC - Sedation vacation --> patient got agitated - Failed SBT Day3 - Procalcitonin elevated - Respiratory panel + for RSV and mycoplasma - Discontinued Tamiflu and Rocephin - Kept O2 sat > 95% with FiO2 of 45% - Urine output decreased significantly to 540/24 hrs--> responded to fluid bolus Day 4 - Extubated - Transitioned to BiPAP - Attempted hi-flow but patient is a mouth breather and SatO2 < low 80's - Minimal improvement in UO--> Lasix - Significant hallucinations overnight with delirium, no physical agitation Day 5 - UO increased with single dose of Lasix - Completing azithromycin day 5 - Very limited movement due to drop in O2 saturation with minimal movement including leaning forward and just moving head or hands - Unable to perform ADLs due to shortness of breath Day 6 - Advance diet to regular - Dietary giving high protein custard and 4oz of ensure TID - PT recommending home health with increased services - Tolerated CPAP overnight well Day 7 - Procalcitonin trending down - No BM yet - Eating better - Passive range of motion with PT - Used BiPAP all night - Reduce Solumedrol dose - Oral candidiasis with concern for esophageal, will consult surgery to evaluate EGD feasibility - Lactulose q6h until BM Day 8 - Slept OK - BM today - Decreased Solumedrol dose - PT recommending front wheel walker, transfer tub, wheelchair - Start Nystatin - Anesthesia recommended to defer EGD for after patient has been discharged from this hospitalization - OK to downgrade to medical floor Day 9 - Sputum culture confirmed with Nocardia - Started Bactrim - Clinically improved and stable - NC at 4L throughout - Decrease Solumedrol dose Day 10 - Restart home medications - Slept through the night - Exhibiting drug seeking behavior with morphine - Discussed importance of discontinuing opioids for pain control - PRN Toradol for pain Day 11 - Complaining of sore throat, started on magic mouth wash - K is 5.3 --> EKG - Phos 1.8 - Mg 1.8 - Sat > 90% with 4L NC - Sleeping great - Feels a lot better, close to baseline Day 12 - Reports feels about the same as yesterday - Requesting hospital bed for home - Magnesium low - supplement - Potassium back WNL - Eating ok - Stop Toradol - Add Diflucan, Stop nystatin - Remove tele Day13 - CO2 elevated in blood sample - ABG shows hypercapnia - CXR shows new bilateral pleural effusions - Mag 1.8 today - Phosphorous 2.3 - BM today - Day 8 of antifungal therapy - Day 9 of ABX - Eating OK - Reviewed ECHO from October - Procal - Patient changes code status to DNR/DNI, witnessed by Dr. Camacho and Charge nurse Shayna Day 14 -Serum bicarbonate continues to increase - Arterial blood gas demonstrates increased PCO2 -79 -Start high flow nasal cannula -Patient reiterates that she does not want to be intubated. 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 Discussed comfort care - Patient reports she is "done with all this." - Discussed hospice. Patient agrees to discuss this with them. Reports daughter is a hospice nurse. Order placed. - Patient would benefit from wheelchair and home hospital bed due to need for head elevation, severe dyspnea with ambulation - Patient not expected to survive beyond 6 months - SW/CM continues to work with Susana Day 16 -Serum bicarbonate slightly decreased from 45-43 -No significant change overnight. -Magnesium decreased to 1.6. -IV access was lost so magnesium were replaced orally by increasing her magnesium oxide to 400 mg 3 times daily -Recheck magnesium in the morning Day 17 -No significant change. -Plan discharge for the morning. -Recheck magnesium tomorrow. PLAN BY SYSTEMS Neurologic: Monitor mental status Avoid interactions during the night Home Ativan Respiratory: NC when not on CPAP Atrovent q8h Budesonide q12 PO Medrol dose pack -pharmacy to dose Guaifenesin TID CPAP when patient allows Cardiovascular: Metoprolol PO, scheduled HCTZ home dose Trend BP and start medication if required PRN hydralazine for BP > 180/100 Renal and Electrolytes: Discontinued sanderson catheter Monitor urine output GI and hepatology: Regular diet 4oz Ensure TID Scheduled Senna Mirtazapine Fluconazole for yeast in UC Endocrine and Metabolism: Monitor glucose on daily labs Infectious Disease Continue Nystatin swallow Continue Bactrim - will need custodial - 3-6 months Monitor temp and panculture if greater than 99.2 Procalcitonin 0.05 Start fluconazole Hematology, Oncology and Immune system: No signs of active bleeding Goal Hb >7 PROPHYLAXIS DVT- Lovenox GI- not indicated CODE STATUS: On 12/27/19 patient changed code status to DNR/DNI. Prognosis is very poor. Serum CO2 remains elevated. She continues to be severely dyspneic. Patient understands that she has end-stage lung disease. DISPOSITION: Patient will remain hospitalized, on medical floor for continued PT/OT and RT. Sputum culture has grown and confirmed with Nocardia, started on Bactrim. Length of stay greater than 96 hours due to suboptimal response to treatment, discussion with hospice. Need to arrange proper discharge equipment. Recommend ID follow-up after discharge Belinda would benefit from a home hospital bed at discharge. She reports she has tried using pillows and a wedge but is unable to get a comfortable height. She has tried to sleep in the chair but is unable. She has pedal edema so leg elevation is recommended for her. She is well known to this service and has been hospitalized many times in the past for lung related issues. 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 She has been requiring more oxygen while here. She reports she spends a majority of her time in bed, essentially getting up only to utilize the restroom. She reports she spends over 75% of her time in bed. She continues to worsen and understands she has end-stage lung disease. She needs to keep her head elevated near 90 degrees to assist in her respiratory status. PT/OT has been evaluating the patient and recommends a hospital bed at discharge as well. She would also benefit from a wheelchair due to difficulty with ambulating and getting around her house. She becomes severely dyspneic with activity. This is a progressive disease and she has a very grim overall prognosis. She again is expected to not survive over 6 months and is end-stage COPD. She has been requiring more oxygen while hospitalized. PT/OT has evaluated her while here and has been recommending a wheelchair as well.
[2019-12-31] MEDS: Mirtazapine 30 MG Tab PO SCH (21:29)
[2020-01-01] MEDS: Acetaminophen/HYDROcodone 325-5 MG Tab PO SCH ×6 (01:35→21:00)
[2020-01-01] MEDS: Diphenhydramine/Lidocaine/MagAl/Simethicone 119 ML Bottle PO SCH ×3 (08:18→20:57)
[2020-01-01] MEDS: guaiFENesin 600 MG Tab.ER PO SCH ×3 (08:19→20:58)
[2020-01-01] MEDS: Hydrochlorothiazide 25 MG Tab PO SCH (08:19)
[2020-01-01] MEDS: ALPRAZolam 1 MG Tab PO PRN ×2 (08:20→19:47)
[2020-01-01] MEDS: Sulfamethoxazole/Trimethoprim 800-160 MG Tab PO SCH ×2 (08:20→20:57)
[2020-01-01] MEDS: Metoprolol Tartrate 50 MG Tab PO SCH ×2 (08:20→20:59)
[2020-01-01] MEDS: Magnesium Oxide 400 MG Tab PO SCH ×3 (08:28→20:57)
[2020-01-01] MEDS: Enoxaparin 40 MG/0.4 ML Syringe SUBCUT SCH (08:28)
[2020-01-01] MEDS ORDERED: Magnesium Sulfate/Water 4 GM in Premix Bag 1 BAG IV ONE (09:22)
[2020-01-01] MEDS ORDERED: Magnesium Oxide 400 MG Tab PO ONE (09:48)
--- NOTE | 2020-01-01 11:00 | PCM.DCSUM1 ---
Discharge Summary - Hospital Course HPI Initial Comments: Information obtained by chart review due to patient being obtunded 54-year-old female presents to the ED per [facility] due to severe troubles breathing. Patient has end-stage COPD and is on oxygen at 4-1/2 L/min at all times at home. When paramedics arrived they found her PO2 was only 65 but she was also vasoconstricted. They placed her on a nonrebreather mask at 10 L/min with brought her sats up into the 90s. Should not is so dyspneic that she can only speak in one-word sentences. She is very cachectic in appearance. She is on numerous medications for pulmonary disorder. Has a chronic cough but denies bringing up any sputum or blood as of recent. He states she has not eaten at all today due to dyspnea. She has been gradually getting worse apparently over the last 4 to 5 days. Unclear if she has any history of congestive heart failure. Diagnosis: Stroke: No - Discharge Data Discharge Date: 01/01/20 (Admit date: 12/14/19) Discharge Disposition: Home, Home Health Agency 06 Condition: Poor - Referral to Home Health Date of Face to Face Encounter: 01/01/20 Reason for Homebound Status: See below Primary Care Physician: Liza Fernandez NP Skilled Need: see below - Discharge Diagnosis/Problem(s) (1) Acute delirium SNOMED Code(s): 9252192, 2199626 ICD Code: R41.0 - DISORIENTATION, UNSPECIFIED Status: Resolved (2) Chronic respiratory acidosis SNOMED Code(s): 7454531 ICD Code: E87.2 - ACIDOSIS Status: Acute (3) Elevated troponin SNOMED Code(s): 104914256, 168900622, 058482660 ICD Code: R79.89 - OTHER SPECIFIED ABNORMAL FINDINGS OF BLOOD CHEMISTRY Status: Acute (4) End stage COPD SNOMED Code(s): 599314183 ICD Code: J44.9 - CHRONIC OBSTRUCTIVE PULMONARY DISEASE, UNSPECIFIED Status : Acute (5) Hypoalbuminemia SNOMED Code(s): 227937699 ICD Code: E88.09 - OTH DISORDERS OF PLASMA-PROTEIN METABOLISM, NEC Status: Acute (6) Hypochloremia SNOMED Code(s): 53259258 ICD Code: E87.8 - OTH DISORDERS OF ELECTROLYTE AND FLUID BALANCE, NEC Status: Acute (7) Hypophosphatemia SNOMED Code(s): 5128307 ICD Code: E83.39 - OTHER DISORDERS OF PHOSPHORUS METABOLISM Status: Resolved (8) Leukocytosis SNOMED Code(s): 115560048, 521381435 ICD Code: D72.829 - ELEVATED WHITE BLOOD CELL COUNT, UNSPECIFIED Status: Acute (9) Nocardial pneumonia SNOMED Code(s): 493105078 ICD Code: A43.0 - PULMONARY NOCARDIOSIS Status: Acute Priority: High (10) Opioid dependence SNOMED Code(s): 05599175 ICD Code: F11.20 - OPIOID DEPENDENCE, UNCOMPLICATED Status: Acute Priority: High Qualifiers: Substance use status: with unspecified opioid-induced disorder Qualified Code(s): F11.29 - Opioid dependence with unspecified opioid-induced disorder (11) Pneumonia SNOMED Code(s): 720454929 ICD Code: J18.9 - PNEUMONIA, UNSPECIFIED ORGANISM Status: Acute Priority : High Qualifiers: Pneumonia type: due to unspecified organism Laterality: right Lung location: lower lobe of lung Qualified Code(s): J18.9 - Pneumonia, unspecified organism (12) Pulmonary cachexia due to COPD SNOMED Code(s): 828403917 ICD Code: J44.9 - CHRONIC OBSTRUCTIVE PULMONARY DISEASE, UNSPECIFIED; R64 - CACHEXIA Status: Acute (13) RSV infection SNOMED Code(s): 48093896 ICD Code: B97.4 - RESPIRATORY SYNCYTIAL VIRUS CAUSING DISEASES CLASSD ELSWHR Status: Acute (14) Respiratory failure with hypoxia and hypercapnia SNOMED Code(s): 19967444 ICD Code: J96.91 - RESPIRATORY FAILURE, UNSPECIFIED WITH HYPOXIA; J96.92 - RESPIRATORY FAILURE, UNSPECIFIED WITH HYPERCAPNIA Status: Acute Qualifiers: Chronicity: acute on chronic Qualified Code(s): J96.21 - Acute and chronic respiratory failure with hypoxia; J96.22 - Acute and chronic respiratory failure with hypercapnia (15) Severe malnutrition SNOMED Code(s): 21696728 ICD Code: E43 - UNSPECIFIED SEVERE PROTEIN-CALORIE MALNUTRITION Status: Acute (16) Sinus tachycardia seen on traffic monitor specialist SNOMED Code(s): 722562869 ICD Code: R00.0 - TACHYCARDIA, UNSPECIFIED Status: Acute (17) Thrombocytosis SNOMED Code(s): 4804545 ICD Code: D47.3 - ESSENTIAL (HEMORRHAGIC) THROMBOCYTHEMIA Status: Acute (18) COPD exacerbation SNOMED Code(s): 835434246 ICD Code: J44.1 - CHRONIC OBSTRUCTIVE PULMONARY DISEASE W (ACUTE) EXACERBATION Status: Acute (19) Chest wall pain, chronic SNOMED Code(s): 162696101 ICD Code: R07.89 - OTHER CHEST PAIN; G89.29 - OTHER CHRONIC PAIN Status: Acute (20) Dental caries extending into dentin Status: Acute (21) Headache SNOMED Code(s): 63753262 ICD Code: R51 - HEADACHE Status: Acute Qualifiers: Headache type: other vascular headache Qualified Code(s): G44.1 - Vascular headache, not elsewhere classified (22) Hypomagnesemia SNOMED Code(s): 867698208 ICD Code: E83.42 - HYPOMAGNESEMIA Status: Acute Priority: High (23) Oral candidiasis SNOMED Code(s): 72238114 ICD Code: B37.0 - CANDIDAL STOMATITIS Status: Acute (24) Anxiety SNOMED Code(s): 76968412 ICD Code: F41.9 - ANXIETY DISORDER, UNSPECIFIED Status: Chronic Priority : Medium (25) HTN (hypertension) SNOMED Code(s): 07620505 ICD Code: I10 - ESSENTIAL (PRIMARY) HYPERTENSION Status: Chronic Priority : Low Qualifiers: Hypertension type: unspecified Qualified Code(s): I10 - Essential (primary ) hypertension (26) Hypoxia SNOMED Code(s): 313263223 ICD Code: R09.02 - HYPOXEMIA Status: Chronic Priority: High (27) Severe anxiety SNOMED Code(s): 50830116 ICD Code: F41.9 - ANXIETY DISORDER, UNSPECIFIED Status: Chronic Priority : Medium (28) Mycoplasma pneumonia SNOMED Code(s): 43479866 ICD Code: J15.7 - PNEUMONIA DUE TO MYCOPLASMA PNEUMONIAE Status: Resolved Priority: High Qualifiers: Laterality: unspecified laterality Lung location: unspecified part of lung Qualified Code(s): J15.7 - Pneumonia due to Mycoplasma pneumoniae - Patient Summary/Data Consults: Consultations 12/18/19 10:10 PT Evaluation and Treatment [CONS] Routine 12/18/19 10:11 OT Evaluation and Treatment [CONS] Routine 12/29/19 11:04 Consult to Case Management/Mid Wife [CONS] Routine 12/29/19 13:38 Consult to Hospice [CONS] Routine Labs Pending at D/C: None Recommended Follow-up Testing/Procedures: Follow-up with PCP within 5-7 days of discharge. Recommend ID follow-up regarding nocardia in sputum. Recommend pulmonology follow-up. Hospital Course: Day 1 - Patient came in to ED for worsening shortness of breath--> placed on BiPAP--> admitted to ICU on BIPAP - Mental status declined and PCO2>100 + pH 7.1--> Intubated - Sedated with Versed and propofol - Tachycardic, requires IV metoprolol - Started on Rocephin, azithromycin and Tamiflu Day 2 - Intubated - Significant improvement in WBC - Sedation vacation --> patient got agitated - Failed SBT Day3 - Procalcitonin elevated - Respiratory panel + for RSV and mycoplasma - Discontinued Tamiflu and Rocephin - Kept O2 sat > 95% with FiO2 of 45% - Urine output decreased significantly to 540/24 hrs--> responded to fluid bolus Day 4 - Extubated - Transitioned to BiPAP - Attempted hi-flow but patient is a mouth breather and SatO2 < low 80's - Minimal improvement in UO--> Lasix - Significant hallucinations overnight with delirium, no physical agitation Day 5 - UO increased with single dose of Lasix - Completing azithromycin day 5 - Very limited movement due to drop in O2 saturation with minimal movement including leaning forward and just moving head or hands - Unable to perform ADLs due to shortness of breath Day 6 - Advance diet to regular - Dietary giving high protein custard and 4oz of ensure TID - PT recommending home health with increased services - Tolerated CPAP overnight well Day 7 - Procalcitonin trending down - No BM yet - Eating better - Passive range of motion with PT - Used BiPAP all night - Reduce Solumedrol dose - Oral candidiasis with concern for esophageal, will consult surgery to evaluate EGD feasibility - Lactulose q6h until BM Day 8 - Slept OK - BM today - Decreased Solumedrol dose - PT recommending front wheel walker, transfer tub, wheelchair - Start Nystatin - Anesthesia recommended to defer EGD for after patient has been discharged from this hospitalization - OK to downgrade to medical floor Day 9 - Sputum culture confirmed with Nocardia - Started Bactrim - Clinically improved and stable - NC at 4L throughout - Decrease Solumedrol dose Day 10 - Restart home medications - Slept through the night - Exhibiting drug seeking behavior with morphine - Discussed importance of discontinuing opioids for pain control - PRN Toradol for pain Day 11 - Complaining of sore throat, started on magic mouth wash - K is 5.3 --> EKG - Phos 1.8 - Mg 1.8 - Sat > 90% with 4L NC - Sleeping great - Feels a lot better, close to baseline Day 12 - Reports feels about the same as yesterday - Requesting hospital bed for home - Magnesium low - supplement - Potassium back WNL - Eating ok - Stop Toradol - Add Diflucan, Stop nystatin - Remove tele Day - CO2 elevated in blood sample - ABG shows hypercapnia - CXR shows new bilateral pleural effusions - Mag 1.8 today - Phosphorous 2.3 - BM today - Day 8 of antifungal therapy - Day 9 of ABX - Eating OK - Reviewed ECHO from October - Procal - Patient changes code status to DNR/DNI, witnessed by Dr. Camacho and Charge nurse Shayna Day 14 -Serum bicarbonate continues to increase - Arterial blood gas demonstrates increased PCO2 -79 -Start high flow nasal cannula -Patient reiterates that she does not want to be intubated. 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 Discussed comfort care - Patient reports she is "done with all this." - Discussed hospice. Patient agrees to discuss this with them. Reports daughter is a hospice nurse. Order placed. - Patient would benefit from wheelchair and home hospital bed due to need for head elevation, severe dyspnea with ambulation - Patient not expected to survive beyond 6 months - SW/CM continues to work with Susana Day 16 -Serum bicarbonate slightly decreased from 45-43 -No significant change overnight. -Magnesium decreased to 1.6. -IV access was lost so magnesium were replaced orally by increasing her magnesium oxide to 400 mg 3 times daily -Recheck magnesium in the morning Day 17 -No significant change. -Plan discharge for the morning. -Recheck magnesium tomorrow. Day 18 - Day of discharge -No significant change -Serum CO2 is 45 -SW/CM attempting to obtain hospital bed and wheelchair for patient -Magnesium low- supplemented -Again discussed hospice with patient. Reports she is not ready but will consider it next month. -Continue TID magnesium supplementation for 5 days -Continue Bactrim DS - recommend 3-6 months treatment for Nocardia in sputum -Continue fluconazole for 14 more days 2/2 suspected esophageal eric -Continue magic mouthwash for mouth sores PLAN BY SYSTEMS Neurologic: Monitor mental status Avoid interactions during the night Home Ativan Respiratory: NC when not on CPAP Atrovent q8h Budesonide q12 PO Medrol dose pack -pharmacy to dose Guaifenesin TID CPAP when patient allows Cardiovascular: Metoprolol PO, scheduled HCTZ home dose Trend BP and start medication if required PRN hydralazine for BP > 180/100 Renal and Electrolytes: Discontinued sanderson catheter Monitor urine output GI and hepatology: Regular diet 4oz Ensure TID Scheduled Senna Mirtazapine Fluconazole for yeast in UC Endocrine and Metabolism: Monitor glucose on daily labs Infectious Disease Continue Nystatin swallow Continue Bactrim - will need buttermaker helper - 3-6 months Monitor temp and panculture if greater than 99.2 Procalcitonin 0.05 Start fluconazole Hematology, Oncology and Immune system: No signs of active bleeding Goal Hb >7 PROPHYLAXIS DVT- Lovenox GI- not indicated CODE STATUS: On 12/27/19 patient changed code status to DNR/DNI. Prognosis is very poor. Serum CO2 remains elevated. She continues to be severely dyspneic. Patient understands that she has end-stage lung disease. DISPOSITION: Patient will remain hospitalized, on medical floor for continued PT/OT and RT. Sputum culture has grown and confirmed with Nocardia, started on Bactrim. Length of stay greater than 96 hours due to suboptimal response to treatment, discussion with hospice. Need to arrange proper discharge equipment. Recommend ID follow-up after discharge Belinda would benefit from a home hospital bed at discharge. She reports she has tried using pillows and a wedge but is unable to get a comfortable height. She has tried to sleep in the chair but is unable. She has pedal edema so leg elevation is recommended for her. She is well known to this service and has been hospitalized many times in the past for lung related issues. 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 She has been requiring more oxygen while here. She reports she spends a majority of her time in bed, essentially getting up only to utilize the restroom. She reports she spends over 75% of her time in bed. She continues to worsen and understands she has end-stage lung disease. She needs to keep her head elevated near 90 degrees to assist in her respiratory status. PT/OT has been evaluating the patient and recommends a hospital bed at discharge as well. She would also benefit from a wheelchair due to difficulty with ambulating and getting around her house. She becomes severely dyspneic with activity. This is a progressive disease and she has a very grim overall prognosis. She again is expected to not survive over 6 months and is end-stage COPD. She has been requiring more oxygen while hospitalized. PT/OT has evaluated her while here and has been recommending a wheelchair as well. - Patient Instructions Diet: Usual Diet as Tolerated Activity: As Tolerated Driving: Do Not Drive Showering/Bathing: May Shower Notify Provider of: Fever, Increased Pain, Nausea and/or Vomiting Other/Special Instructions: Follow-up with primary care provider within 5-7 days of discharge. Re-check CMP, Magnesium, Phosphorous on 01/05/20 with results to PCP, Liza Fernandez NP. Take your weight daily and record it in a journal. Bring this with to all medical appointments. Resume home medications as directed. You will be on fdc antibiotics. Take your new medication as prescribed. . Take all new medications as directed. Some of your home medications were discontinued/changed. Be sure to follow discharge directions. Continue to wear your oxygen. 4-4.5L to keep sautrations above 88% but below 92% . Suggest hospice consult as we discussed. You may talk to your primary care provider about this. Recommend infectious disease follow-up regarding Nocardia in sputum. Continue pallative care. Should symptoms return or worsen contact primray care provider or return to the Emergency Department. - Discharge Plan *PRESCRIPTION DRUG MONITORING PROGRAM REVIEWED*: Not Applicable *COPY OF PRESCRIPTION DRUG MONITORING REPORT IN PATIENT MARA: Not Applicable Prescriptions/Med Rec: Diphenhyd/Lidocaine/MagAl/Subhash [First-Mouthwash BLM Susp] 30 ml PO TID 5 Days # 1 bottle Fluconazole [Diflucan] 100 mg PO DAILY #14 tablet Magnesium Oxide 400 mg PO TID #15 tablet Sulfamethoxazole/Trimethoprim [Septra DS] 1 tab PO BID #60 tablet Home Medications: Home Meds Budesonide/Formoterol Fumarate [Symbicort 80-4.5 MCG] 2 puff IH BID 02/25/14 [ History] Triamterene/Hydrochlorothiazid [Triamterene-HCTZ 37.5-25 MG] 1 each PO DAILY # 30 capsule 04/23/17 [Rx] Mirtazapine [Remeron] 30 mg PO BEDTIME 08/11/17 [History] ALPRAZolam [Xanax] 1 mg PO BID PRN 10/11/17 [History] Albuterol [Proair HFA] 2 puff INH Q4HR PRN 12/01/17 [History] Hydrocodone/Acetaminophen [Hydrocodon-Acetaminophn 10-325] 10 - 325 mg PO Q6H PRN 12/26/17 [History] guaiFENesin [Mucinex] 1,200 mg PO BID #30 tab.er 12/31/17 [Rx] Roflumilast [Daliresp] 500 mg PO DAILY 04/24/18 [History] Tiotropium [place] [Spiriva Respimat] 2 puff INH DAILY 04/24/18 [History] Metoprolol Tartrate [Lopressor] 50 mg PO Q12H #60 tablet 11/04/18 [Rx] Diphenhyd/Lidocaine/MagAl/Subhash [First-Mouthwash BLM Susp] 30 ml PO TID 5 Days # 1 bottle 01/01/20 [Rx] Fluconazole [Diflucan] 100 mg PO DAILY #14 tablet 01/01/20 [Rx] Magnesium Oxide 400 mg PO TID #15 tablet 01/01/20 [Rx] Sulfamethoxazole/Trimethoprim [Septra DS] 1 tab PO BID #60 tablet 01/01/20 [Rx] Oxygen Therapy Mode: Nasal Cannula Oxygen Flow Rate (L/min): 4 (4-4.5L ) Maintain SPO2% less than: 92 Maintain SpO2% greater than: 88 Patient Handouts: Chronic Obstructive Pulmonary Disease, Sepsis, Diagnosis, Adult, Heart Failure Forms: ED Department Discharge Referrals: Liza Fernandez NP [Primary Care Provider] - 01/05/20 11:00 am (Please follow up with Liza Fernandez WednesdayJanuary 04 on 1100. Request referral to have an outpatient EGD done for throat ulceration.) - Discharge Summary/Plan Comment DC Time >30 min.: Yes (45 minutes ) - General Info Date of Service: 01/02/20 Admission Dx/Problem (Free Text: Admission Diagnosis/Problem Admission Diagnosis/Problem Hypoxemia requiring supplemental oxygen Functional Status: Reports: Pain Controlled, Tolerating Diet, Ambulating, Urinating, Incentive Spirometry. Denies: New Symptoms - Review of Systems General: Reports: Weakness, Fatigue, Malaise. Denies: Fever, Chills HEENT: Reports: No Symptoms. Denies: Headaches, Sore Throat Pulmonary: Reports: Shortness of Breath, Cough, Wheezing. Denies: Pleuritic Chest Pain, Sputum Cardiovascular: Reports: Dyspnea on Exertion, Edema. Denies: Chest Pain, Palpitations Gastrointestinal: Reports: No Symptoms. Denies: Abdominal Pain, Constipation, Diarrhea, Nausea, Vomiting Genitourinary: Reports: No Symptoms. Denies: Pain Musculoskeletal: Reports: No Symptoms Skin: Reports: No Symptoms. Denies: Cyanosis Neurological: Reports: No Symptoms, Difficulty Walking (2/2 dyspnea ), Weakness. Denies: Confusion, Seizure, Trouble Speaking, Change in Speech, Gait Disturbance Psychiatric: Reports: No Symptoms - Patient Data Vitals - Most Recent: Last Vital Signs Temp 97.8 F 01/01/20 08:25 Pulse 74 01/01/20 08:25 Resp 16 01/01/20 08:25 BP 119/88 01/01/20 08:25 Pulse Ox 97 01/01/20 08:25 Weight - Most Recent: 132 lb I&O - Last 24 hours: Intake & Output 12/31/19 01/01/20 01/01/20 22:59 06:59 14:59 Intake Total 1120 1480 Output Total 1700 2800 Balance -580 -1320 Lab Results - Last 24 hrs: Laboratory Results - last 24 hr 01/01/20 Range/Units 08:24 Sodium 144 (136-145) mEq/L Potassium 4.5 (3.5-5.1) mEq/L Chloride 100 (98-107) mEq/L Carbon Dioxide 45 H* (21-32) mEq/L Anion Gap 3.5 L (5-15) BUN 29 H (7-18) mg/dL Creatinine 0.7 (0.55-1.02) mg/dL Est Cr Clr Drug Dosing 81.71 mL/min Estimated GFR (MDRD) > 60 (>60) mL/min BUN/Creatinine Ratio 41.4 H (14-18) Glucose 109 H (74-106) mg/dL Calcium 9.0 (8.5-10.1) mg/dL Magnesium 1.5 L (1.8-2.4) mg/dl Med Orders - Current: Current Medications Hydrocodone Bitart/Acetaminophen ([place] 325-5 Mg) 1 tab PO Q4H [facility] Last Admin: 01/01/20 09:59 Dose: 1 tab Alprazolam (Xanax) 1 mg PO BID PRN PRN Reason: Anxiety Last Admin: 01/01/20 08:20 Dose: 1 mg Budesonide (Pulmicort) 0.5 mg NEB BIDRT PRN PRN Reason: Other Last Admin: 12/27/19 21:53 Dose: 0.5 mg Diphenhydr/Magaldrate/Simeth/Lidoca (First-Mouthwash Blm Susp) 30 ml PO TID [facility] Last Admin: 01/01/20 08:18 Dose: 30 ml Docusate Sodium (Colace) 100 mg PO BID PRN PRN Reason: Constipation Last Admin: 12/21/19 08:31 Dose: 100 mg Enoxaparin Sodium (Lovenox) 40 mg SUBCUT DAILY [facility] Last Admin: 01/01/20 08:28 Dose: 40 mg Fluconazole (Diflucan) 100 mg PO Q24H [facility] Last Admin: 12/31/19 13:00 Dose: 100 mg Guaifenesin (Mucinex) 600 mg PO TID [facility] Last Admin: 01/01/20 08:19 Dose: 600 mg Hydralazine HCl (Apresoline) 10 mg IVPUSH Q2H PRN PRN Reason: Hypertension Last Admin: 12/18/19 16:16 Dose: 10 mg Hydrochlorothiazide (Hydrochlorothiazide) 25 mg PO DAILY [facility] Last Admin: 01/01/20 08:19 Dose: 25 mg Ipratropium [place] (Atrovent) 0.5 mg NEB Q8HRRT PRN PRN Reason: Other Last Admin: 12/31/19 15:57 Dose: 0.5 mg Magnesium Oxide (Magnesium Oxide) 400 mg PO TID [facility] Last Admin: 01/01/20 08:28 Dose: 400 mg Metoprolol Tartrate (Lopressor) 50 mg PO BID [facility] Last Admin: 01/01/20 08:20 Dose: 50 mg Mirtazapine (Remeron) 30 mg PO BEDTIME [facility] Last Admin: 12/31/19 21:29 Dose: 30 mg Morphine Sulfate (Morphine) 1 mg IVPUSH ONETIME PRN PRN Reason: Pain Ondansetron HCl (Zofran Odt) 4 mg PO Q6H PRN PRN Reason: nausea, able to take PO Ondansetron HCl (Zofran) 4 mg IV Q6H PRN PRN Reason: Nausea/Vomiting Senna (Senna) 8.6 mg PO BID PRN PRN Reason: Constipation Trimethoprim/Sulfamethoxazole (Septra Ds) 1 tab PO BID [facility] Last Admin: 01/01/20 08:20 Dose: 1 tab Trolamine Salicylate (Aspercreme 10%) 0 gm TOP Q4HR PRN PRN Reason: Pain Discontinued Medications Acetaminophen/Codeine Phosphate (Tylenol With Codeine No.3 300mg/30mg) 1 tab PO Q6H PRN PRN Reason: Pain (severe 7-10) Last Admin: 12/18/19 14:13 Dose: 1 tab Hydrocodone Bitart/Acetaminophen ([place] 325-5 Mg) 1 tab PO Q6H PRN PRN Reason: Pain Last Admin: 12/28/19 17:31 Dose: 1 tab Azithromycin (Zithromax) 500 mg PO BEDTIME [facility] Stop: 12/18/19 21:01 Last Admin: 12/18/19 21:05 Dose: 500 mg Budesonide (Pulmicort) 0.5 mg NEB BIDRT [facility] Last Admin: 12/26/19 06:33 Dose: Not Given Calcium Gluconate (Calcium Gluconate) 1 gm IVPUSH ONETIME ONE Stop: 12/25/19 18:18 Last Admin: 12/25/19 19:21 Dose: 1 gm Dextrose/Water (Dextrose 50% In Water) 50 ml IVPUSH ONETIME ONE Stop: 12/25/19 18:41 Last Admin: 12/25/19 19:38 Dose: 50 ml Etomidate (Amidate) 40 mg IVPUSH .STK-MED ONE Stop: 12/14/19 23:41 Fluconazole (Diflucan) 200 mg PO ONETIME ONE Stop: 12/26/19 12:01 Last Admin: 12/26/19 11:57 Dose: 200 mg Furosemide (Lasix) 40 mg IVPUSH NOW ONE Stop: 12/27/19 13:31 Last Admin: 12/27/19 14:24 Dose: 40 mg Haloperidol Lactate (Haldol) 5 mg IVPUSH ONETIME ONE Stop: 12/17/19 09:01 Last Admin: 12/17/19 09:11 Dose: 5 mg Heparin Sodium (Porcine) (Heparin Lock Flush 100 Units/Ml) Confirm Administered Dose 500 units .ROUTE .STK-MED ONE Stop: 12/17/19 18:27 Last Admin: 12/17/19 20:01 Dose: Not Given Hydromorphone HCl (Dilaudid) 0.25 mg IVPUSH ONETIME ONE Stop: 12/14/19 21:24 Last Admin: 12/14/19 21:43 Dose: 0.25 mg Sodium Chloride (Normal Saline) 1,000 mls @ 150 mls/hr IV ASDIRECTED SHAUN Last Infusion: 12/16/19 09:23 Dose: 250 mls/hr Azithromycin 500 mg/ Sodium (Chloride) 250 mls @ 250 mls/hr IV Q24H [facility] Stop: 12/18/19 23:30 Last Admin: 12/17/19 21:16 Dose: 250 mls/hr Ceftriaxone Sodium 2 gm/ (Sodium Chloride) 100 mls @ 200 mls/hr IV Q24H [facility] Last Admin: 12/14/19 23:32 Dose: 200 mls/hr Propofol (Diprivan 100 Ml) Confirm Administered Dose 100 mls @ as directed .ROUTE .STK-MED ONE Stop: 12/15/19 00:02 Last Admin: 12/15/19 00:23 Dose: Not Given Propofol (Diprivan 100 Ml) 100 mls @ 1.463 mls/hr IV TITRATE SHAUN; Protocol Last Admin: 12/16/19 02:10 Dose: 32 mcg/kg/min, 9.362 mls/hr Norepinephrine Bitartrate 4 mg (/ Dextrose/Water) 250 mls @ 7.5 mls/hr IV TITRATE SHAUN; Protocol Ceftriaxone Sodium 2 gm/ (Sodium Chloride) 100 mls @ 200 mls/hr IV Q24H [facility] Last Admin: 12/15/19 22:38 Dose: 200 mls/hr Magnesium Sulfate 2 gm/ Premix 50 mls @ 25 mls/hr IV ONETIME ONE Stop: 12/15/19 09:59 Last Admin: 12/15/19 08:03 Dose: 25 mls/hr Magnesium Sulfate (Magnesium Sulfate In Water Premix) Confirm Administered Dose 50 mls @ as directed .ROUTE .STK-MED ONE Stop: 12/15/19 07:56 Last Admin: 12/15/19 08:02 Dose: Not Given Midazolam HCl 100 mg/ Sodium (Chloride) 100 mls @ 0.5 mls/hr IV ASDIRECTED SHAUN Last Infusion: 12/15/19 17:38 Dose: 5 mls/hr Midazolam HCl 50 mg/ Sodium (Chloride) 50 mls @ 2.44 mls/hr IV TITRATE SHAUN; Protocol Lactated Ringer's (Ringers, Lactated) 1,000 mls @ 250 mls/hr IV ASDIRECTED SHAUN Last Infusion: 12/16/19 20:44 Dose: 150 mls/hr Lactated Ringer's (Ringers, Lactated) 1,000 mls @ 150 mls/hr IV ASDIRECTED SHAUN Last Admin: 12/17/19 08:35 Dose: 150 mls/hr Sodium Chloride (Normal Saline) Confirm Administered Dose 1,000 mls @ as directed .ROUTE .[facility] ONE Stop: 12/17/19 17:24 Last Admin: 12/17/19 20:01 Dose: Not Given Magnesium Sulfate 4 gm/ Premix 100 mls @ 25 mls/hr IV ONETIME ONE Stop: 12/17/19 23:59 Last Admin: 12/17/19 20:20 Dose: 25 mls/hr Potassium Phosphate 30 mmole/ (Sodium Chloride) 510 mls @ 102 mls/hr IV Q5H [facility] Stop: 12/19/19 21:59 Last Admin: 12/19/19 17:14 Dose: Not Given Magnesium Sulfate 2 gm/ Premix 50 mls @ 25 mls/hr IV Q1H [place] Stop: 12/24/19 12:44 Last Admin: 12/24/19 12:07 Dose: 25 mls/hr Sodium Phosphate 30 mmole/ (Sodium Chloride) 260 mls @ 86.667 mls/hr IV ONETIME ONE Stop: 12/24/19 12:01 Last Admin: 12/24/19 14:03 Dose: 86.667 mls/hr Sodium Phosphate 30 mmole/ (Sodium Chloride) 260 mls @ 130 mls/hr IV Q2H [facility] Stop: 12/25/19 18:59 Last Admin: 12/25/19 19:19 Dose: 130 mls/hr Magnesium Sulfate 2 gm/ Premix 50 mls @ 25 mls/hr IV ONETIME ONE Stop: 12/26/19 10:59 Last Admin: 12/26/19 08:49 Dose: 25 mls/hr Magnesium Sulfate 4 gm/ Premix 50 mls @ 12.5 mls/hr IV ONETIME ONE Stop: 12/28/19 16:59 Last Admin: 12/28/19 12:09 Dose: 12.5 mls/hr Magnesium Sulfate 4 gm/ Premix 50 mls @ 12.5 mls/hr IV ONETIME ONE Stop: 12/30/19 12:39 Last Admin: 12/30/19 09:05 Dose: Not Given Magnesium Sulfate 4 gm/ Premix 50 mls @ 12.5 mls/hr IV ONETIME ONE Stop: 01/01/20 13:21 Insulin Human Regular (Humulin R) 10 unit IV ONETIME ONE Stop: 12/25/19 18:20 Last Admin: 12/25/19 19:36 Dose: 10 unit Ipratropium [place] (Atrovent) 0.5 mg NEB Q8HRRT [facility] Last Admin: 12/26/19 06:33 Dose: Not Given Ketorolac Tromethamine (Toradol) 15 mg IM Q6H PRN PRN Reason: Pain (moderate 4-6) Ketorolac Tromethamine (Toradol) 15 mg IM Q6H PRN PRN Reason: Pain (moderate 4-6) Ketorolac Tromethamine (Toradol) 15 mg IVPUSH Q6H PRN PRN Reason: Pain (moderate 4-6) Last Admin: 12/25/19 20:47 Dose: 15 mg Lorazepam (Ativan) 1 mg IVPUSH ONETIME ONE Stop: 12/20/19 10:38 Last Admin: 12/20/19 11:00 Dose: 1 mg Magnesium Oxide (Magnesium Oxide) 400 mg PO DAILY [facility] Last Admin: 12/28/19 08:53 Dose: 400 mg Magnesium Oxide (Magnesium Oxide) 400 mg PO BID [facility] Last Admin: 12/30/19 08:49 Dose: 400 mg Magnesium Oxide (Magnesium Oxide) 800 mg PO ONETIME ONE Stop: 01/01/20 09:49 Last Admin: 01/01/20 09:59 Dose: 800 mg Methylprednisolone (Medrol) 24 mg PO ONETIME ONE Stop: 12/26/19 09:01 Last Admin: 12/26/19 08:36 Dose: 24 mg Methylprednisolone (Medrol) 20 mg PO ONETIME ONE Stop: 12/27/19 09:01 Last Admin: 12/27/19 08:22 Dose: 20 mg Methylprednisolone (Medrol) 16 mg PO ONETIME ONE Stop: 12/28/19 09:01 Last Admin: 12/28/19 08:54 Dose: 16 mg Methylprednisolone (Medrol) 12 mg PO ONETIME ONE Stop: 12/29/19 09:01 Last Admin: 12/29/19 09:45 Dose: 12 mg Methylprednisolone (Medrol) 8 mg PO ONETIME ONE Stop: 12/30/19 09:01 Last Admin: 12/30/19 08:48 Dose: 8 mg Methylprednisolone (Medrol) 4 mg PO ONETIME ONE Stop: 12/31/19 09:01 Last Admin: 12/31/19 09:06 Dose: 4 mg Methylprednisolone Sodium Succinate (Solu-Medrol) 125 mg IVPUSH Q12H [facility] Last Admin: 12/21/19 10:40 Dose: 125 mg Methylprednisolone Sodium Succinate (Solu-Medrol) 80 mg IVPUSH Q12H [facility] Last Admin: 12/22/19 09:42 Dose: 80 mg Methylprednisolone Sodium Succinate (Solu-Medrol) 40 mg IVPUSH Q12H [facility] Last Admin: 12/25/19 08:44 Dose: 40 mg Metoprolol Tartrate (Lopressor) 2.5 mg IVPUSH ONETIME ONE Stop: 12/15/19 06:06 Last Admin: 12/15/19 06:13 Dose: 2.5 mg Metoprolol Tartrate (Lopressor) 2.5 mg IVPUSH Q12HR [facility] Last Admin: 12/18/19 07:59 Dose: 2.5 mg Metoprolol Tartrate (Lopressor) 10 mg IVPUSH ONETIME ONE Stop: 12/18/19 17:21 Last Admin: 12/18/19 17:00 Dose: 10 mg Morphine Sulfate (Morphine) 1 mg IVPUSH Q4H PRN PRN Reason: Pain (severe 7-10) Stop: 12/15/19 22:06 Morphine Sulfate (Morphine) 1 mg IVPUSH ONETIME ONE Stop: 12/20/19 09:24 Last Admin: 12/20/19 09:35 Dose: 1 mg Morphine Sulfate (Morphine) 1 mg IVPUSH ONETIME ONE Stop: 12/20/19 11:01 Last Admin: 12/20/19 11:30 Dose: 1 mg Morphine Sulfate (Morphine) 1 mg IVPUSH Q8H PRN PRN Reason: Pain (severe 7-10) Last Admin: 12/22/19 14:41 Dose: 1 mg Morphine Sulfate (Morphine) 1 mg IVPUSH ONETIME PRN PRN Reason: Pain Nystatin (Nystatin Oral Syringe) 5 unit PO QID [facility] Last Admin: 12/20/19 20:31 Dose: 5 unit Nystatin (Nystatin Oral Syringe) 500,000 unit PO QID [facility] Last Admin: 12/26/19 08:36 Dose: 500,000 unit Ondansetron HCl (Zofran) 4 mg IVPUSH ONETIME ONE Stop: 12/14/19 21:23 Last Admin: 12/14/19 21:43 Dose: 4 mg Pantoprazole Sodium (Protonix Iv) 40 mg IVPUSH DAILY@0600 [facility] Last Admin: 12/18/19 06:13 Dose: 40 mg Potassium Chloride (Klor-Con M20) 40 meq PO BID [facility] Stop: 12/19/19 21:01 Last Admin: 12/19/19 20:19 Dose: 40 meq Quetiapine Fumarate (Seroquel) 100 mg PO ONETIME ONE Stop: 12/17/19 21:01 Last Admin: 12/17/19 20:21 Dose: 100 mg Senna (Senna) 8.6 mg PO BID [facility] Last Admin: 12/30/19 08:49 Dose: Not Given Succinylcholine Chloride (Quelicin) 200 mg .ROUTE .STK-MED ONE Stop: 12/14/19 23:41 Triamterene/HCTZ (Dyazide 25-37.5 Mg) 1 each PO DAILY [facility] Last Admin: 12/25/19 08:44 Dose: 1 each - Exam Quality Assessment: Reports: Supplemental Oxygen, DVT Prophylaxis General: Reports: Alert, Oriented, Cooperative, No Acute Distress HEENT: Reports: Pupils Equal, Pupils Reactive, Mucous Membr. Moist/[place] Neck: Reports: Supple, Trachea Midline Lungs: Reports: Decreased Breath Sounds, Wheezing (end-expiratory, very mild ). Denies: Normal Respiratory Effort (Tachypneic), Crackles, Rhonchi Cardiovascular: Reports: Regular Rate, Regular Rhythm GI/Abdominal Exam: Normal Bowel Sounds, Soft, Non-Tender, No Distention (Female) Exam: Deferred Rectal (Female) Exam: Deferred Back Exam: Reports: Normal Inspection, Full Range of Motion Extremities: Normal Inspection, Normal Range of Motion, Non-Tender, Normal Capillary Refill, Pedal Edema Skin: Reports: Warm, Dry, Intact Neurological: Reports: No New Focal Deficit Psy/Mental Status: Reports: Alert
[2020-01-01] MEDS: Fluconazole 100 MG Tab PO SCH (11:56)
[2020-01-01 20:16] VITALS: BP 108/59
[2020-01-01] MEDS: Mirtazapine 30 MG Tab PO SCH (20:58)
[2020-01-01 21:00] VITALS: PULSE 72
== END 2020-01-01 22:58 | disposition home health service (06) | DRG 208 ==
LOC: JD.ED 20:25 → JD.ICU 21:58 → JD.MS 12-23 09:59
PROVIDERS: ADMIT Internal Medicine; ATTEND Internal Medicine
PROC: 0BH17EZ Insertion of Endotracheal Airway into Trachea, Via Natural or Artificial Opening (ICD-10-PCS; principal; 2019-12-15)
PROC: 5A1945Z Respiratory Ventilation, 24-96 Consecutive Hours (ICD-10-PCS; 2019-12-15)
DX: J96.21 Acute and chronic respiratory failure with hypoxia (principal); E43 Unspecified severe protein-calorie malnutrition; J15.7 Pneumonia due to Mycoplasma pneumoniae; J44.9 Chronic obstructive pulmonary disease, unspecified; H54.7 Unspecified visual loss; Z87.01 Personal history of pneumonia (recurrent); Z86.010 Personal history of colon polyps; Z87.442 Personal history of urinary calculi; R32 Unspecified urinary incontinence; M19.90 Unspecified osteoarthritis, unspecified site; J44.0 Chronic obstructive pulmonary disease with (acute) lower respiratory infection; E87.2 Acidosis; A43.0 Pulmonary nocardiosis; J44.1 Chronic obstructive pulmonary disease with (acute) exacerbation; B37.0 Candidal stomatitis; I50.9 Heart failure, unspecified; I11.0 Hypertensive heart disease with heart failure; Z99.81 Dependence on supplemental oxygen; Z66 Do not resuscitate; J96.22 Acute and chronic respiratory failure with hypercapnia; R79.89 Other specified abnormal findings of blood chemistry; E87.8 Other disorders of electrolyte and fluid balance, not elsewhere classified; E83.39 Other disorders of phosphorus metabolism; F11.29 Opioid dependence with unspecified opioid-induced disorder; B97.4 Respiratory syncytial virus as the cause of diseases classified elsewhere; D47.3 Essential (hemorrhagic) thrombocythemia; K02.9 Dental caries, unspecified; G89.29 Other chronic pain; R07.89 Other chest pain; G44.1 Vascular headache, not elsewhere classified; E83.42 Hypomagnesemia; F41.9 Anxiety disorder, unspecified; I10 Essential (primary) hypertension; F32.9 Major depressive disorder, single episode, unspecified; M81.0 Age-related osteoporosis without current pathological fracture; Z96.619 Presence of unspecified artificial shoulder joint; Z79.52 Long term (current) use of systemic steroids; Z79.899 Other long term (current) drug therapy; Z90.710 Acquired absence of both cervix and uterus; Z68.22 Body mass index [BMI] 22.0-22.9, adult
CPT/HCPCS: 36415; 36600 ×2; 71045; 80053; 82803 ×2; 83605; 83735; 83880; 84484; 85007; 85027; 85610; 85730; 86140; 87040 ×2; 87804 ×2; 93005; 94660; 96361; 96374; 96375; 99285; J1170; J2405; J7030; 31500; 51702; 71046; 71046-26; 80048; 81001; 82962; 84100; 84145; 85025; 86738; 87070; 87077; 87086; 87106; 87205; 87486; 87581; 87632; 87798; 87899; 93010; 94002; 94003; 94640; 94760; 94761; 97110-GO; 97110-GP; 97162-GP; 97166-GO; 97530-GO; 97530-GP; 97535-GO; 99223; 99232; 99233; 99239; A9270-GY; C9113; J0330; J0360; J0456; J0610; J0696; J1630; J1650; J1815-GY; J1885; J1940; J2060; J2250; J2270; J2704; J2920; J2930; J3475; J3490; J7040; J7050; J7120